=== PATIENT | male | born 1960 | race Caucasian/White ===

== ENCOUNTER 2017-12-14 18:32 | Emergency (ER) | payer MEDICARE, MEDICAID, SELFPAY ==
[2017-12-14 18:33] VITALS: BP 123/76; PULSE 103; RESP 18; TEMP 36.6; O2SAT 96; BMI 23.2
--- NOTE | 2017-12-14 18:50 | RAD_ITS ---
STUDY: X-RAY CHEST REASON FOR EXAM: Male, 57 years old. Short breath and nausea. TECHNIQUE: Frontal and lateral views of the chest. COMPARISON: 06/20/2017. FINDINGS: The lungs are hyperexpanded. There are coarsened interstitial markings suggestive of moderate chronic fibrosis. Findings are most pronounced in the upper lobes. This is stable. However, there is now linear band of density across the anterior right lung base most consistent with platelike atelectasis or interval scarring. No gross focal infiltrates. No gross effusions. Normal size heart. Normal mediastinum and winnie. Normal visualized pulmonary arteries. Normal visualized aortic arch and descending thoracic aorta. Normal visualized thoracic spine. Normal visualized ribs, clavicles, and shoulders. There is no demonstrated abnormality of the visualized soft tissue structures of the upper abdomen. RAD/Chest PA and Lateral IMPRESSION: Moderate widespread interstitial fibrosis with an upper lobe predominance, stable. New platelike atelectasis or scarring in the anterior right lung base. Electronically Signed: Richard Kent MD at 19:50 EDT , Service support ,
--- NOTE | 2017-12-14 18:50 | EKG12_ITS ---
Test Reason : SOB Blood Pressure : / mmHG Vent. Rate : 090 BPM Atrial Rate : 090 BPM P-R Int : 124 ms QRS Dur : 084 ms QT Int : 360 ms P-R-T Axes : 059 045 056 degrees QTc Int : 440 ms Normal sinus rhythm Normal ECG Confirmed by LUZ RICE, SB ([id number]), news assignment editor YOLA GUERRA ([id number]) on 12/17/2017 2:29:58 PM Referred By: RENATA Confirmed By:SB ESCOBAR MD
--- NOTE | 2017-12-14 18:55 | ED.VISSUMM ---
- ER Visit Summary Date of Service: 12/14/17 Chief Complaint: Cough History of Present Illness: The patient is a 57-year-old male presents with increasing productive cough since yesterday. Wheezing at home. No fever, chills, sweats. No chest pains. No dyspnea or exertional dyspnea. Tobacco history. History of COPD. History of [place]. States had a previous PE was on anticoagulation for 1 year. Denies any exertional dyspnea. No recent travel. Physical Examination: General: Alert and oriented ?3, no acute distress HEENT: Normocephalic, atraumatic. Moist mucosa membranes Neck: supple, nontender. Cardiovascular: Regular rate 96 and rhythm, no murmurs Respiratory: Normal breath sounds, symmetric, no distress Abdomen: Soft, nontender, nondistended Extremities: Nontender, no edema, pulses intact ?4 Neuro: no focal neurological deficits. Test Results: EKG: Sinus rate of 90, no ST or T-wave changes. Chest x-ray: Per radiology platelike atelectasis right lower lobe Emergency Department Course and Treatment: Patient nontoxic, no acute distress. COPD history along with cardiac history. EKG obtained which is normal. Chest x-ray initially revealed concerns for right lower lobe pneumonia, however per radiology concerns of platelike atelectasis. Nontoxic. Per gold criteria, He was given start on Doxy and prednisone. DuoNeb treatment given with improvement. Nela with patient continue antibiotics and steroids as prescribed. Follow with PCP. Return if any worsening symptoms. All questions were answered. Treatment Plan: [] Disposition: Discharge Impression: COPD exacerbation This note was generated with [employer] dictation software. It may contain incorrect words, spelling, and punctuation that were not noted in review of the chart prior to signing ED Disposition - Plan for ED Patient: Disposition: Home or Assisted Living Chief Complaint: Cough Diagnosis: COPD (chronic obstructive pulmonary disease) Instructions: ED COPD Flare Prescriptions: Prednisone [Deltasone] 60 mg PO DAILY #12 tablet Doxycycline Monohydrate 100 mg PO BID #20 capsule Referrals: Alexey Mayberry MD [Primary Care Provider] - 3-5 Days
[2017-12-14] MEDS: Ipratropium/Albuterol Sulfate 3 ML AMPUL.NEB INHALATION (18:57)
--- NOTE | 2017-12-14 18:58 | ED.DCSUM_ITS ---
- ER Visit Summary Date of Service: 12/14/17 Chief Complaint: Cough History of Present Illness: The patient is a 57-year-old male presents with increasing productive cough since yesterday. Wheezing at home. No fever, chills, sweats. No chest pains. No dyspnea or exertional dyspnea. Tobacco history. History of COPD. History of [place]. States had a previous PE was on anticoagulation for 1 year. Denies any exertional dyspnea. No recent travel. Physical Examination: General: Alert and oriented ?3, no acute distress HEENT: Normocephalic, atraumatic. Moist mucosa membranes Neck: supple, nontender. Cardiovascular: Regular rate 96 and rhythm, no murmurs Respiratory: Normal breath sounds, symmetric, no distress Abdomen: Soft, nontender, nondistended Extremities: Nontender, no edema, pulses intact ?4 Neuro: no focal neurological deficits. Test Results: EKG: Sinus rate of 90, no ST or T-wave changes. Chest x-ray: Per radiology platelike atelectasis right lower lobe Emergency Department Course and Treatment: Patient nontoxic, no acute distress. COPD history along with cardiac history. EKG obtained which is normal. Chest x-ray initially revealed concerns for right lower lobe pneumonia, however per radiology concerns of platelike atelectasis. Nontoxic. Per gold criteria, He was given start on Doxy and prednisone. DuoNeb treatment given with improvement. Nela with patient continue antibiotics and steroids as prescribed. Follow with PCP. Return if any worsening symptoms. All questions were answered. Treatment Plan: [] Disposition: Discharge Impression: COPD exacerbation This note was generated with [employer] ([employer]) dictation software. It may contain incorrect words, spelling, and punctuation that were not noted in review of the chart prior to signing ED Disposition - Plan for ED Patient: Disposition: Home or Assisted Living Chief Complaint: Cough Diagnosis: COPD (chronic obstructive pulmonary disease) Instructions: ED COPD Flare Prescriptions: Prednisone [Deltasone] 60 mg PO DAILY #12 tablet Doxycycline Monohydrate 100 mg PO BID #20 capsule Referrals: Alexey Mayberry MD [Primary Care Provider] - 3-5 Days
[2017-12-14 19:00] VITALS: PULSE 114; RESP 18
[2017-12-14] MEDS: Ondansetron ODT 4 MG Tablet PO (19:05)
[2017-12-14] MEDS: predniSONE 20 MG Tablet 60 MG PO (19:06)
[2017-12-14] MEDS: Doxycycline 100 MG CAPSULE PO (19:06)
[2017-12-14 20:20] VITALS: BP 125/75; PULSE 99; RESP 16; O2SAT 99
== END 2017-12-14 20:22 | disposition home or self-care (01) ==
PROVIDERS: Emergency Provider Emergency Medicine; Family Provider Internal Medicine; PCP Internal Medicine
DX: J44.1 Chronic obstructive pulmonary disease with (acute) exacerbation (principal); I25.10 Atherosclerotic heart disease of native coronary artery without angina pectoris; E78.00 Pure hypercholesterolemia, unspecified; K21.9 Gastro-esophageal reflux disease without esophagitis; I25.2 Old myocardial infarction; Z72.0 Tobacco use; Z86.711 Personal history of pulmonary embolism; Z95.5 Presence of coronary angioplasty implant and graft
CPT/HCPCS: 71046; 93005; 94640; 99282

== ENCOUNTER → 2017-12-24 09:14 | Outpatient (CLI) | payer MEDICARE, MEDICAID, SELFPAY ==
[2017-12-24 10:11] LABS: AST(SGOT) 13 U/L (15-37); Alanine Aminotransfer ALT/SGPT 16 U/L (16-61); Albumin, Serum 3.1 g/dL (3.2-5.0); Alkaline Phosphatase 94 U/L (45-117); Cholesterol 129 mg/dL (200); Globulin 3.4 g/dL (2.2-4.2); High Density Lipoprotein 37 mg/dL; Protein, Total 6.5 g/dL (6.4-8.2); Triglycerides 110 mg/dL; Very Low Density Lipoprotein 22 mg/dL (5-40)
== END ==
PROVIDERS: Family Provider Internal Medicine; PCP Internal Medicine; Visit Provider Physician Assistant Medical
DX: I25.10 Atherosclerotic heart disease of native coronary artery without angina pectoris (principal); E78.00 Pure hypercholesterolemia, unspecified
CPT/HCPCS: 36415; 80061; 80076

== ENCOUNTER → 2018-02-10 13:55 | Outpatient (CLI) | payer MEDICARE, MEDICAID, SELFPAY ==
--- NOTE | 2018-02-10 13:55 | DT_ITS ---
This patient was seen during an EMR downtime February 03, 2018 - February 10, 2018. This patient may have a combination of paper and electronic documentation or all paper documentation. All documentation is viewable within the e-chart portion of [facility] for each patient visit.
--- NOTE | 2018-02-10 13:58 | CT_ITS ---
STUDY: CT MAXILLOFACIAL SINUSES REASON FOR EXAM: Male, 57 years old. Chronic sinusitis, worse on the left. Repair of deviated nasal septum to years ago. RADIATION DOSAGE (If Supplied By Facility): CTDIvol = ( 33.06 ) mGy, DLP = ( 908.23 ) mGycm TECHNIQUE: The patient was scanned in a multi detector CT scanner. High resolution axial imaging was performed without the administration of intravenous contrast material. Sagittal and coronal images were reconstructed. Individualized dose optimization techniques were used for this CT. COMPARISON: CT of the sinuses, April 21, 2013. FINDINGS: FRONTAL SINUSES: There is complete opacification of the frontal sinuses. ETHMOIDAL SINUSES: There is near complete opacification of the ethmoid sinuses with minimal air seen in the most posterior right sided air cell. MAXILLARY SINUSES: There is marked mucoperiosteal reaction in both maxillary sinuses with air-fluid levels. There is partial surgical resection versus resorption of the medial pulido of both sinuses. SPHENOIDAL SINUSES: There is mucoperiosteal reaction of the sphenoid sinuses. There is occlusion of the bilateral maxillary infundibuli with normal uncinate processes, ethmoid bullae, and hiatus semilunaris. Normal bilateral middle turbinates. Normal bilateral inferior turbinates. Normal midline nasal septum. There is patency of the bilateral nasal airways. The visualized osseous structures are normal. The visualized bilateral orbital contents are normal. CT/Sinus/Facial Bone IMPRESSION: Severe pansinusitis, mildly improved when compared to the prior study. Electronically Signed: Roosevelt Doyle DO at 16:07 EDT Tel [phone], Service support ,
== END ==
PROVIDERS: Family Provider Internal Medicine; PCP Internal Medicine; Visit Provider Otolaryngology
DX: J33.9 Nasal polyp, unspecified (principal); J32.9 Chronic sinusitis, unspecified
CPT/HCPCS: 70486

== ENCOUNTER 2018-03-28 23:33 | Inpatient (IN) | payer MEDICARE, MEDICAID, SELFPAY ==
--- NOTE | 2018-03-28 00:15 | RAD_ITS ---
STUDY: X-RAY CHEST REASON FOR EXAM: Male, 57 years old. Shortness of breath. Respiratory arrest. Endotracheal tube and orogastric tube placement. TECHNIQUE: Single AP portable view of the chest. COMPARISON: Chest x-ray 12/14/2017. CTA chest 03/30/2018. FINDINGS: Endotracheal tube is 5.1 cm above the luli. A loop of the nasogastric or orogastric tube enters the stomach were it appears to be kinked. However, the tip of the tube is in the mid thoracic esophagus. There is no demonstrated pneumothorax. There is hyperinflation of the lungs consistent with chronic obstructive lung disease (COPD). There are chronic interstitial changes in the lungs. There is no demonstrated focal pulmonary trachea. There is no demonstrated pleural abnormality. Normal size heart. Normal mediastinum and winnie. Normal visualized pulmonary arteries. Normal visualized aortic arch and descending thoracic aorta. There are no visualized acute osseous abnormalities. . There is no demonstrated abnormality of the visualized soft tissue structures of the upper abdomen. RAD/Chest 1 View (Portable) IMPRESSION: Endotracheal tube is in adequate position. Nasogastric tube is malpositioned, looping within the stomach, with its tip in the thoracic esophagus. Tube should be removed and replaced. Chronic interstitial changes with evidence for COPD. No evidence for acute cardiopulmonary pathology. Electronically Signed: yTler Keene MD at 1:42 EDT , Service support ,
[2018-03-28 23:34] VITALS: BP 182/98; PULSE 134; RESP 28; TEMP 37.2; O2SAT 98; BMI 22.8
[2018-03-28] MEDS: Etomidate 20 MG/10 ML Vial IV (23:45)
[2018-03-28] MEDS: Succinylcholine Chloride 200 MG/10 ML Vial 100 MG IV (23:45)
--- NOTE | 2018-03-28 23:50 | EKG12_ITS ---
Test Reason : RESP FAILURE Blood Pressure : / mmHG Vent. Rate : 124 BPM Atrial Rate : 124 BPM P-R Int : 114 ms QRS Dur : 074 ms QT Int : 314 ms P-R-T Axes : 072 029 047 degrees QTc Int : 451 ms Sinus tachycardia Low voltage QRS (LIMB LEADS) Confirmed by JOSE DAVID RICE, CYNDY ([id number]), manuscript editor YOLA GUERRA ([id number]) on 04/01/2018 2:26:24 PM Referred By: AXEL Confirmed By:CYNDY MAIN MD
--- NOTE | 2018-03-28 23:50 | CT_ITS ---
STUDY: CTA CHEST REASON FOR EXAM: Male, 57 years old. Respiratory arrest RADIATION DOSAGE (If Supplied By Facility): CTDIvol = ( 20.39 ) mGy, DLP = ( 550.45 ) mGycm TECHNIQUE: The examination was performed with the intravenous administration of 100 ml of Isovue 370 contrast material. Post-processing of the angiographic images was performed, with multiplanar reformation and 3D reconstruction. Individualized dose optimization techniques were used for this CT. COMPARISON: None. FINDINGS: Examination is markedly limited by motion artifact. Visualization of the pulmonary vasculature is limited due to timing of the contrast bolus. There is no definitive central pulmonary embolism. Lobar, segmental, and subsegmental branches are limited due to motion and due to admixture of contrast. Thoracic aorta demonstrates no aneurysmal dilatation or dissection. Normal heart and pericardium. Normal mediastinum. Normal hilar regions. Normal visualized trachea and bronchi. The lungs are well expanded. Patchy airspace infiltration within the lingula and within the right middle lobe. No pleural effusion or pneumothorax. Normal chest wall structures. Evaluation of the skeletal structures is markedly limited due to motion. Normal visualized upper abdomen. CT/CTA Chest W/WO Contrast IMPRESSION: 1. Markedly limited exam due to motion artifact and timing of the contrast bolus with no definitive evidence of acute pulmonary embolism. 2. Mild patchy airspace infiltration within the lingula and within the right middle lobe which may represent atelectasis versus infiltrate versus possible aspiration. Electronically Signed: Jossue Conti MD at 1:52 EDT Tel , Service support ,
[2018-03-28 23:52] VITALS: RESP 14
[2018-03-29] VITALS (66 sets, daily range): BP systolic 83–145; BP diastolic 56–96; PULSE 75–124; RESP 6–26; TEMP 35.7–37; O2SAT 88–100; BMI 23.6
[2018-03-29] MEDS: 0.9% Normal Saline 1,000 ML 150 ML IV ×3 (00:01→10:15)
[2018-03-29] MEDS: Propofol 10MG/Ml 1,000 MG/100 ML Bottle 2.169 MG CONT INF (00:01)
[2018-03-29] MEDS: MethylPREDNISolone 125 MG/2 ML Vial IV (00:03)
[2018-03-29 00:11] LABS: Absolute Lymphocyte Count 1.94 X10^3/ul (0.83-4.51); Absolute Neutrophil Count 26.6 X10^3/uL (2.0-7.7); Basophil# 0.02 X10^3/uL; Basophil% 0.1 % (0-1); Eosinophil# 0.01 X10^3/uL; Hematocrit 41.4 % (40-54); Hemoglobin 13.2 g/dl (13.0-16.5); Lymphocyte # 1.94 X10^3/ul (4.0); Mean Corp Hgb Conc 31.9 g/gl (32-36); Mean Corpuscular Hgb 30.2 pg (27.0-32.0); Mean Corpuscular Volume 94.7 fL (80-94); Mean Platelet Vol. 9.7 fl (6.2-12.0); Monocyte# 3.58 X10^3/uL; Monocyte% 11.1 % (0-10); Neutrophil # 26.56 X10^3/uL (2.7-7.7); Neutrophil % 82.5 % (47-70); Platelet Count 369 K/mm3 (150-450); RBC Distribution Width CV 13.7 % (11.6-14.6); RBC Distribution Width SD 47.6 fl (35.1-43.9); Red Blood Count 4.37 M/mm3 (4.6-6.2)
[2018-03-29 00:13] LABS: Squamous Epithelial Cells - UA 0 SEEN /hpf (0-5); White Blood Cells 0 SEEN /hpf (0-5)
--- NOTE | 2018-03-29 00:13 | ED.VISSUMM ---
- ER Visit Summary Date of Service: 03/29/18 Chief Complaint: Respiratory arrest History of Present Illness: The patient is a 57 M who has a history of COPD as well as coronary artery disease and questionable history of the patient family tells me that he was just released today from [facility] where he was admitted for asthma. EMS was called to his house [place] for shortness of breath. They state that his pulse ox was 55% and he went into respiratory arrest and unresponsive in route to the hospital. They began bagged respirations and the patient was able to open his eyes and say a few words them. Patient is reportedly on Plavix. He has a coronary artery stent. He reportedly sees a prosthetic dentist at the [facility]. He is a heavy smoker. Physical Examination: 182/98 temperature 99 heart rate of 134 respirations are 36 pulse ox is 98% with bagged respirations Gen: Well-nourished well-developed Head: Normocephalic atraumatic Eyes: Perrl EOMI ENT: TMs clear no rhinorrhea moist mucous membranes Neck: Supple no lymphadenopathy no JVD nontender CVS: Regular rate and tachycardic rhythm no murmurs normal S1-S2 Respiratory: Respiratory distress with abdominal breathing and accessory muscle use. He has bilateral inspiratory expiratory wheezing. Chest nontender Abdomen: Soft nontender nondistended normal bowel sounds no masses Back: Nontender Extremity: Nontender no edema Skin: Normal color no rash Neuro: Patient moves all extremities. He does seem alert but does not follow commands easily. He can speak in a couple word sentences. Psych: Normal affect normal mood Test Results: EKG shows a sinus tachycardia. Chest x-ray shows adequate placement of endotracheal tube. The NG tube however appears to coil and go back up into the esophagus. Initial pH is 7.202 with a PCO2 of 62.3 PaO2 of 465. Bicarbonate 24.4. Emergency Department Course and Treatment: Patient underwent RSI with etomidate and succinylcholine. A 8-0 endotracheal tube was passed on the first attempt without any difficulty using a 3 Andrade blade. This was secured at 24 cm. There was good color change and equal breath sounds bilaterally. Chest x-ray confirms adequate placement. Patient received IV fluids and was placed on a propofol drip. Solu-Medrol and breathing treatments were given. Patient will be taken for CTA of his chest. This time the care of the patient will be turned over to the night physician for check of labs and for final admission into the hospital. Impression: 1. COPD exacerbation 2. Respiratory failure 3. Intubation by physician 4. Critical care time 35 minutes This note was generated with [employer] software. It may contain incorrect words, spelling, and punctuation that were not noted in review of the chart prior to signing <Kamran Mcmullen - Last Filed: 03/29/18 00:20> - ER Visit Summary Date of Service: 03/29/18 Chief Complaint: [] History of Present Illness: The patient is a 57 M [] Physical Examination: [] Test Results: WBC 32, creatinine 1.18. INR 1.1. Lactic acid 9. Troponin negative. UA negative. Chest x-ray no infiltrates. CTAchest: No PE, infiltrates left lingula and right middle lobe. Emergency Department Course and Treatment: Patient signed out to me follow-up on results. No PE. Patient white count 32, lactic acid is 9. Sepsis protocol with fluids were given. Zosyn was ordered. CAT scan results showed no PE, however no infiltrates. Is likely his cause. He meets septic shock criteria. Vancomycin was added. During this time I spoke with daughter updated, he had a PE in 2004 with 1 year of Coumadin therapy. He had 3 stents in 2006 on Plavix. He was just discharged from [facility] earlier today after 1 day stay for what sounds like COPD exacerbation. Prescription antibiotic was given it was not filled to be taken yet. Daughter states he did not feel well leaving the hospital, symptoms worsen as he went to her house. He wanted to come back home for breathing treatment for which worsened by the time he got home and EMS was called. During the time, patient's sedation decrease effective with blood pressure. His map however was at 79. Fentanyl IV was added, propofol was decreased. Eventually propofol stopped, Versed drip started. I did speak with restaurant hospitality manager Dr. Devries updated on patient's presentation findings and ICU admission. Hospitalist discussed with his in the ED for evaluation. Treatment Plan: [] Disposition: Admission Impression: 1. Septic shock 2. Healthcare associated pneumonia 3. Hypoxemia 4. Acute respiratory failure This note was generated with [employer] software. It may contain incorrect words, spelling, and punctuation that were not noted in review of the chart prior to signing <Mele Campos - Last Filed: 03/29/18 02:44> ED Disposition <WoolrichKamran maynard - Last Filed: 03/29/18 00:20> <Mele Campos - Last Filed: 03/29/18 02:44> - Plan for ED Patient: Disposition: [facility] Chief Complaint: Shortness of Breath Diagnosis: Septic shock, HCAP (healthcare-associated pneumonia), Acute respiratory failure, Hypoxemia Referrals: Alexey Mayberry MD [Primary Care Provider] -
[2018-03-29 00:15] LABS: Color, Urine Yellow (Yellow); Glucose, Dipstick 100 mg/dl (Normal); Ketone-Dipstick Negative (Negative); Leukocyte Esterase-Dipstick Negative /ul (Negative); Nitrite-Dipstick Negative (Negative); Occult Blood-Urine 25 /ul (Negative); Protein-Dipstick 30 mg/dl (Negative); Urine Bilirubin Dipstick Negative (Negative); Urine Clarity Sl. Cloudy (Clear); Urine Urobilinogen Normal (Normal)
[2018-03-29] MEDS: Ipratropium/Albuterol Sulfate 3 ML AMPUL.NEB INHALATION ×6 (00:16→23:23)
[2018-03-29] MEDS: Albuterol 2.5 MG/3 ML VIAL.NEB. INHALATION ×10 (00:16→21:05)
--- NOTE | 2018-03-29 00:16 | ED.DCSUM_ITS ---
- ER Visit Summary Date of Service: 03/29/18 Chief Complaint: Respiratory arrest History of Present Illness: The patient is a 57 M who has a history of COPD as well as coronary artery disease and questionable history of the patient family tells me that he was just released today from [place] where he was admitted for asthma. EMS was called to his house [place] for shortness of breath. They state that his pulse ox was 55% and he went into respiratory arrest and unresponsive in route to the hospital. They began bagged respirations and the patient was able to open his eyes and say a few words them. Patient is reportedly on Plavix. He has a coronary artery stent. He reportedly sees a technician assistant at the [facility]. He is a heavy smoker. Physical Examination: 182/98 temperature 99 heart rate of 134 respirations are 36 pulse ox is 98% with bagged respirations Gen: Well-nourished well-developed Head: Normocephalic atraumatic Eyes: Perrl EOMI ENT: TMs clear no rhinorrhea moist mucous membranes Neck: Supple no lymphadenopathy no JVD nontender CVS: Regular rate and tachycardic rhythm no murmurs normal S1-S2 Respiratory: Respiratory distress with abdominal breathing and accessory muscle use. He has bilateral inspiratory expiratory wheezing. Chest nontender Abdomen: Soft nontender nondistended normal bowel sounds no masses Back: Nontender Extremity: Nontender no edema Skin: Normal color no rash Neuro: Patient moves all extremities. He does seem alert but does not follow commands easily. He can speak in a couple word sentences. Psych: Normal affect normal mood Test Results: EKG shows a sinus tachycardia. Chest x-ray shows adequate placement of endotracheal tube. The NG tube however appears to coil and go back up into the esophagus. Initial pH is 7.202 with a PCO2 of 62.3 PaO2 of 465. Bicarbonate 24.4. Emergency Department Course and Treatment: Patient underwent RSI with etomidate and succinylcholine. A 8-0 endotracheal tube was passed on the first attempt without any difficulty using a 3 Andrade blade. This was secured at 24 cm. There was good color change and equal breath sounds bilaterally. Chest x-ray confirms adequate placement. Patient received IV fluids and was placed on a propofol drip. Solu-Medrol and breathing treatments were given. Patient will be taken for CTA of his chest. This time the care of the patient will be turned over to the night physician for check of labs and for final admission into the hospital. Impression: 1. COPD exacerbation 2. Respiratory failure 3. Intubation by physician 4. Critical care time 35 minutes This note was generated with [employer] software. It may contain incorrect words, spelling, and punctuation that were not noted in review of the chart prior to signing <Kamran Mcmullen - Last Filed: 03/29/18 00:20> - ER Visit Summary Date of Service: 03/29/18 Chief Complaint: [] History of Present Illness: The patient is a 57 M [] Physical Examination: [] Test Results: WBC 32, creatinine 1.18. INR 1.1. Lactic acid 9. Troponin negative. UA negative. Chest x-ray no infiltrates. CTAchest: No PE, infiltrates left lingula and right middle lobe. Emergency Department Course and Treatment: Patient signed out to me follow-up on results. No PE. Patient white count 32, lactic acid is 9. Sepsis protocol with fluids were given. Zosyn was ordered. CAT scan results showed no PE, however no infiltrates. Is likely his cause. He meets septic shock criteria. Vancomycin was added. During this time I spoke with daughter updated, he had a PE in 2004 with 1 year of Coumadin therapy. He had 3 stents in 2006 on Plavix. He was just discharged from [facility] earlier today after 1 day stay for what sounds like COPD exacerbation. Prescription antibiotic was given it was not filled to be taken yet. Daughter states he did not feel well leaving the hospital, symptoms worsen as he went to her house. He wanted to come back home for breathing treatment for which worsened by the time he got home and EMS was called. During the time, patient's sedation decrease effective with blood pressure. His map however was at 79. Fentanyl IV was added, propofol was decreased. Eventually propofol stopped, Versed drip started. I did speak with assistant cross country coach Dr. Devries updated on patient's presentation findings and ICU admission. Hospitalist discussed with his in the ED for evaluation. Treatment Plan: [] Disposition: Admission Impression: 1. Septic shock 2. Healthcare associated pneumonia 3. Hypoxemia 4. Acute respiratory failure This note was generated with [employer] software. It may contain incorrect words, spelling, and punctuation that were not noted in review of the chart prior to signing <Mele Campos - Last Filed: 03/29/18 02:44> ED Disposition <BunkervilleKamran maynard - Last Filed: 03/29/18 00:20> <Mele Campos - Last Filed: 03/29/18 02:44> - Plan for ED Patient: Disposition: [facility] Chief Complaint: Shortness of Breath Diagnosis: Septic shock, HCAP (healthcare-associated pneumonia), Acute respiratory failure , Hypoxemia Referrals: Alexey Mayberry MD [Primary Care Provider] -
[2018-03-29 00:18] LABS: ALB/GLOB Ratio 0.9 RATIO (0.9-2.4); AST(SGOT) 17 U/L (15-37); Alanine Aminotransfer ALT/SGPT 17 U/L (16-61); Albumin, Serum 3.5 g/dL (3.2-5.0); Alkaline Phosphatase 91 U/L (45-117); Anion Gap 11 (5-15); BUN 13 mg/dL (7-18); Calcium,Total 9.1 mg/dL (8.5-10.1); Chloride 101 mmol/L (98-107); Creatinine, Serum 1.18 mg/dL (0.70-1.30); EST Glomerular Filtration Rate 68 mL/min (>60); Est Glom Filt Rate - Afr Amer 82 mL/min (>60); Estimated Creatinine Clearance 71.48 ml/min; Globulin 3.8 g/dL (2.2-4.2); Glucose 239 mg/dL (74-106); Potassium 4.4 mmol/L (3.5-5.1); Protein, Total 7.3 g/dL (6.4-8.2); Sodium Level 136 mmol/L (136-145)
[2018-03-29 00:26] LABS: Base Excess -4 mmol/L (-2 to +2); Bicarbonate 23.8 mmol/L (22-26); Blood Gas Specimen Type ART; FI02 100; Mode A-C; O2 Delivery Device Vent; PEEP 5; PO2 458 mmHG (75-100); RR 14; SITE L Brachial; SO2 100 % (95-99); Time Given 1213; Total Carbon Dioxide 26 mmol/L; Vt 500; pCO2 60.7 mmHg (35-45)
[2018-03-29 00:30] LABS: Amorphous Sediment 1+; Bacteria RARE /hpf (None Seen); Mucous, Urine 1+ /hpf (<or=2+)
[2018-03-29 00:31] LABS: Red Blood Cells-Urine 0-5 SEEN /hpf (0-5)
[2018-03-29 00:35] LABS: Differential Indicated SCAN CRITERIA MET; POSITIVE COUNT YES; POSITIVE DIFFERENTIAL YES; POSITIVE MORPHOLOGY NO; White Blood Count 32.2 K/mm3 (4.4-11.0)
[2018-03-29 00:36] LABS: Differential Comment SCANNED
[2018-03-29 00:38] LABS: International Normalized Ratio 1.1; Prothrombin Time (Protime)PT. 14.1 SECONDS (11.7-14.9)
[2018-03-29 00:39] LABS: Partial Thromboplast Time 28.1 Seconds (24.1-36.2)
[2018-03-29] MEDS: Midazolam 5 MG/ML Syringe IV ×4 (01:00→03:07)
--- NOTE | 2018-03-29 01:16 | ED.RN ---
ALL OF PTS BELONGINGS CARGO SHORTS, BELT, SHOES, BLACK WALLET, MEDICAL ALERT NECKLACE AND CONTENTS OF POCKETS OF CARGO SHORTS (NOT OBSERVED BY THIS RN) WERE GIVEN TO DAUGHTER DAWSON AT PT'S BEDSIDE.
--- NOTE | 2018-03-29 01:49 | ED.RN ---
LAB CALLED WITH CRITICAL LAB, LACTIC 9.0, DR REYNA NOTIFIED
--- NOTE | 2018-03-29 03:40 | RAD_ITS ---
STUDY: X-RAY CHEST REASON FOR EXAM: Male, 57 years old. Status post central line placement TECHNIQUE: Single AP portable view of the chest. COMPARISON: 02/27/2018 FINDINGS: Endotracheal tube tip projects 4 cm above the luli. Nasogastric tube tip projects over the proximal esophagus. There has been interval placement of a right internal jugular central venous line with the tip projecting over the mid superior vena cava. There is mild prominence of the interstitial lung markings within bilateral perihilar regions. Platelike atelectasis versus scar at the left lateral lung base. No pleural effusion or pneumothorax. Normal size heart. Normal mediastinum and winnie. Normal visualized pulmonary arteries. There is atherosclerotic calcification of the aortic arch with tortuosity. There are diffuse degenerative changes of the visualized thoracic spine. Normal visualized ribs, clavicles, and shoulders. There is no demonstrated abnormality of the visualized soft tissue structures of the upper abdomen. RAD/Chest 1 View (Portable) IMPRESSION: 1. Nasogastric tube tip withdrawn into the proximal esophagus. 2. Appropriate positioning of newly placed right internal jugular central venous line. 3. Mild chronic bilateral perihilar interstitial change. Electronically Signed: Jossue Conti MD at 4:14 EDT Tel , Service support ,
[2018-03-29 03:56] LABS: Reflex Lactate? Y
--- NOTE | 2018-03-29 04:15 | PCM.HP.STD ---
Problem List (1) Acute on chronic respiratory failure with hypoxemia Status: Acute (2) Septic shock Status: Acute (3) HCAP (healthcare-associated pneumonia) Status: Acute (4) Acute respiratory failure Status: Acute History of Present Illness Date of Admission: 03/29/18 Chief Complaint: Shortness of breath ?3 days The patient is a 57 year old M with significant history of tobacco abuse and COPD who was brought to the hospital by the squad because of severe shortness of breath that started 3 days ago. Patient was intubated at the time of my examination and could not provide history. Her daughter reports that 3 days ago because patient was severely short of breath and she was not responding to his home inhalers. Patient went to [facility] in [place] where he was admitted with asthma attack at the ICU. Her daughter reported that at [facility], patients white count was severely elevated. Daughter reports that patient was discharged from [facility] the next day but he continued to have shortness of breath to the point that he could not breathe. The paramedics found him severely hypoxic. Associated with his symptoms is coughing with posttussive emesis. At emergency department he was severely hypoxic,hypercapnic and unresponsive. Subsequently his trachea was emergently intubated. He was found to have elevated white count of 32.2; and his lactic acid was severely elevated at 9.0. Past Medical History Past Medical History (Chronic Problems): Chronic Problems (Last Reviewed 03/29/18 @ 04:50 by Godfrey Monte MD) Hypotension, unspecified (Chronic) Atherosclerotic heart disease of [place] coronary artery without angina pectoris (Chronic) PTCA and stenting RCA 06/27/2008 at [place]; Ischemic cardiomyopathy (Chronic) HLD (hyperlipidemia) (Chronic) Dyspnea (Chronic) Myocardial infarction, inferior wall (Chronic) CAD (coronary artery disease) (Chronic) PTCA and stenting RCA 06/27/2008 at [place]; H/O percutaneous transluminal coronary angioplasty (Chronic) PTCA and stenting RCA 06/27/2008 at [place]; COPD (chronic obstructive pulmonary disease) (Chronic) 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) Atherosclerosis (Chronic) COPD (chronic obstructive pulmonary disease) with emphysema (Chronic) Chest pain (Chronic) Coronary arteriosclerosis (Chronic) COPD exacerbation (Chronic) CAD (coronary artery disease) (Chronic) Nicotine abuse (Chronic) History of pulmonary embolism (Chronic) Medical History: Medical History (Last Reviewed 03/29/18 @ 04:50 by Godfrey Monte MD) Atherosclerotic heart disease of [place] coronary artery without angina pectoris (Chronic) I25.10 PTCA and stenting RCA 06/27/2008 at [place]; Ischemic cardiomyopathy (Chronic) I25.5 HLD (hyperlipidemia) (Chronic) E78.5 Dyspnea (Chronic) R06.00 Myocardial infarction, inferior wall (Chronic) I21.19 CAD (coronary artery disease) (Chronic) I25.10 PTCA and stenting RCA 06/27/2008 at [place]; COPD (chronic obstructive pulmonary disease) (Chronic) J44.9 Allergies latex Allergy (Verified 03/28/18 23:40) Rash varenicline tartrate [From Chantix] Allergy (Verified 03/28/18 23:40) Hives aspirin Adverse Reaction (Verified 03/28/18 23:40) Upset Stomach Home Medications: Ambulatory Orders Medication Instructions Recorded Albuterol Inhaler [Ventolin Hfa] 2 puff INHALATION Q2H PRN 06/16/13 Budesonide/Formoterol 160/4.5 2 puff INHALATION BID PRN 06/16/13 [Symbicort 160/4.5 Mcg Inhaler (SP)] Clopidogrel Bisulfate [Plavix] 75 mg PO QHS 06/16/13 Levocetirizine Dihydrochloride 5 mg PO DAILY 07/12/15 [Xyzal] Cholecalciferol (VIT D3) [Vitamin 2,000 units PO QHS 03/25/16 D3] Montelukast Sodium [Singulair] 10 mg PO QHS 03/25/16 Omeprazole [Prilosec] 40 mg PO DAILY 05/13/17 Ipratropium/Albuterol Sulfate 3 ml INHALATION Q4H.RT 05/15/17 [Duoneb] Aspirin [Aspirin, Baby] 81 mg PO DAILY@0800 06/20/17 cyanocobalamin (vit B-12) 1,000 1,000 mcg PO QDAY 10/15/17 mcg tablet Atorvastatin Calcium [Lipitor] 20 mg PO DAILY 12/14/17 Cetirizine HCl [Zyrtec] 10 mg PO QHS 12/14/17 Doxycycline Monohydrate 100 mg PO BID #20 capsule 12/14/17 Prednisone [Deltasone] 60 mg PO DAILY #12 tablet 12/14/17 Surgical History: Surgical History (Last Reviewed 03/29/18 @ 07:36 by Godfrey Monte MD) H/O percutaneous transluminal coronary angioplasty (Chronic) Z98.61 PTCA and stenting RCA 06/27/2008 at [place]; Surgical History: angioplasty, - Psychiatric History: No pertinent psych hx Smoking Status: Current every day smoker - *Family History Maternal Family History: Family History (Last Reviewed 10/21/17 @ 14:16 by Alvaro Barger) Father CAD (coronary artery disease) Heart disease Myocardial infarction Mother Diabetes Brother Hypertension History Items: Diabetes Paternal Family History: Family History (Last Reviewed 10/21/17 @ 14:16 by Alvaro Barger) Father CAD (coronary artery disease) Heart disease Myocardial infarction Mother Diabetes Brother Hypertension History Items: Heart Disease Review of Systems Unable to obtain accurate/complete ROS d/t: Patient unresponsive. Other review of systems as noted in HPI. VTE Information - Inpt Only VTE Present on Admission: No VTE Mechan Device Prophylaxis: SCD's VTE Pharm Prophylaxis ordered?: Yes Patient Problems: Active and Suspected Problems (Last Reviewed 03/29/18 @ 04:50 by Godfrey Monte MD) Septic shock (Acute) HCAP (healthcare-associated pneumonia) (Acute) Acute respiratory failure (Acute) Hypoxemia (Acute) Acute on chronic respiratory failure with hypoxemia (Acute) - Physical Exam General: - - Patient on the ventilation and trying to get up. HEENT: Atraumatic, PERRLA, EOMI, Normocephalic Neck: Trachea Midline Lungs: - - Rhonchi likely due to a ventilator machine. Cardiovascular: Tachycardic Abdomen: Bowel Sounds Present, Soft, Non Tender Extremities: No cyanosis, No edema, - Skin: - - Wound to multiple toes on the right foot and plantar side proximal to toes. Musculoskeletal: No Muscle Wasting Lymphatic: No Cervical, Supraclavicular, or Inguinal Adenopathy Neurological: - - Intubated and sedated on mechanical ventilation. Psych/Mental Status: - - Intubated and sedated on mechanical ventilation. Vital Signs Temp Pulse Resp BP Pulse Ox 98.6 F 97 18 94/70 97 03/29/18 01:00 03/29/18 03:00 03/29/18 03:00 03/29/18 03:00 03/29/18 03:00 Oxygen Delivery Method Mechanical Ventilator Weight: 72.3 kg Body Mass Index (BMI) 22.8 Laboratory Tests Past 24 Hrs 03/28/18 03/28/18 03/28/18 23:40 23:40 23:40 WBC 32.2 H* RBC 4.37 L Hgb 13.2 Hct 41.4 MCV 94.7 H MCH 30.2 MCHC 31.9 L RDW 13.7 RDW Differential 47.6 H Plt Count 369 MPV 9.7 Immature Gran % (Auto) 0.300 Neut % (Auto) 82.5 H Lymph % (Auto) 6.0 L [place]yer % (Auto) 11.1 H Eos % (Auto) 0.0 Baso % (Auto) 0.1 Absolute Neuts (auto) 26.6 H Absolute Lymphs (auto) 1.94 Total Counted Not Reportable Differential Comment SCANNED Diff Path Review May foll PT INR APTT Specimen Type Sample Site pH Bicarbonate Actual POC Total CO2 Base Excess O2 Saturation O2 % ABG pCO2 ABG pO2 Respiration Rate O2 Delivery Device Vent Mode Tidal Volume POC PEEP Blood Gas Notified Whom Blood Gas Notified Time Sodium 136 Potassium 4.4 Chloride 101 Carbon Dioxide 24.0 Anion Gap 11 BUN 13 Creatinine 1.18 Estim Creat Clear Calc 71.48 Est GFR (MDRD) Af Amer 82 Est GFR (MDRD) Non-Af 68 BUN/Creatinine Ratio 11.0 Glucose 239 H Lactic Acid 9.0 H* Calcium 9.1 Total Bilirubin 0.30 AST 17 ALT 17 Alkaline Phosphatase 91 Troponin I < 0.015 Total Protein 7.3 Albumin 3.5 Globulin 3.8 Albumin/Globulin Ratio 0.9 Urine Color Urine Clarity Urine pH Ur Specific [place] Urine Protein Urine Glucose (UA) Urine Ketones Urine Occult Blood Urine Nitrite Urine Bilirubin Urine Urobilinogen Ur Leukocyte Esterase Urine RBC Urine WBC Ur Squamous Epith Cells Amorphous Sediment Urine Bacteria Urine Mucus 03/29/18 03/29/18 03/29/18 00:05 00:10 00:15 WBC RBC Hgb Hct MCV MCH MCHC RDW RDW Differential Plt Count MPV Immature Gran % (Auto) Neut % (Auto) Lymph % (Auto) Sawyer % (Auto) Eos % (Auto) Baso % (Auto) Absolute Neuts (auto) Absolute Lymphs (auto) Total Counted Differential Comment Diff Path Review PT Cancelled INR Cancelled APTT Cancelled Specimen Type ART Sample Site L Brachial pH 7.20 L Bicarbonate Actual 23.8 POC Total CO2 26 Base Excess -4 L O2 Saturation 100 H O2 % 100 ABG pCO2 60.7 H ABG pO2 458 H* Respiration Rate 14 O2 Delivery Device Vent Vent Mode A-C Tidal Volume 500 POC PEEP 5 Blood Gas Notified Whom ED Blood Gas Notified Time 1213 Sodium Potassium Chloride Carbon Dioxide Anion Gap BUN Creatinine Estim Creat Clear Calc Est GFR (MDRD) Af Amer Est GFR (MDRD) Non-Af BUN/Creatinine Ratio Glucose Lactic Acid Calcium Total Bilirubin AST ALT Alkaline Phosphatase Troponin I Total Protein Albumin Globulin Albumin/Globulin Ratio Urine Color Yellow Urine Clarity Sl. Cloudy Urine pH 6.0 Ur Specific [place] 1.020 Urine Protein 30 H Urine Glucose (UA) 100 H Urine Ketones Negative Urine Occult Blood 25 H Urine Nitrite Negative Urine Bilirubin Negative Urine Urobilinogen Normal Ur Leukocyte Esterase Negative Urine RBC 0-5 SEEN Urine WBC 0 SEEN Ur Squamous Epith Cells 0 SEEN Amorphous Sediment 1+ Urine Bacteria RARE Urine Mucus 1+ 03/29/18 00:22 WBC RBC Hgb Hct MCV MCH MCHC RDW RDW Differential Plt Count MPV Immature Gran % (Auto) Neut % (Auto) Lymph % (Auto) Sawyer % (Auto) Eos % (Auto) Baso % (Auto) Absolute Neuts (auto) Absolute Lymphs (auto) Total Counted Differential Comment Diff Path Review PT 14.1 INR 1.1 APTT 28.1 Specimen Type Sample Site pH Bicarbonate Actual POC Total CO2 Base Excess O2 Saturation O2 % ABG pCO2 ABG pO2 Respiration Rate O2 Delivery Device Vent Mode Tidal Volume POC PEEP Blood Gas Notified Whom Blood Gas Notified Time Sodium Potassium Chloride Carbon Dioxide Anion Gap BUN Creatinine Estim Creat Clear Calc Est GFR (MDRD) Af Amer Est GFR (MDRD) Non-Af BUN/Creatinine Ratio Glucose Lactic Acid Calcium Total Bilirubin AST ALT Alkaline Phosphatase Troponin I Total Protein Albumin Globulin Albumin/Globulin Ratio Urine Color Urine Clarity Urine pH Ur Specific [place] Urine Protein Urine Glucose (UA) Urine Ketones Urine Occult Blood Urine Nitrite Urine Bilirubin Urine Urobilinogen Ur Leukocyte Esterase Urine RBC Urine WBC Ur Squamous Epith Cells Amorphous Sediment Urine Bacteria Urine Mucus Assessment/Plan All Active Problems (Last Reviewed 03/29/18 @ 04:50 by Godfrey Monte MD) Septic shock (Acute) HCAP (healthcare-associated pneumonia) (Acute) Acute respiratory failure (Acute) Hypoxemia (Acute) Acute on chronic respiratory failure with hypoxemia (Acute) 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 Because he was recently discharged from the hospital his pneumonia will be considered as hospital-acquired pneumonia. Septic shock due to healthcare associated pneumonia with probable component of COPD exacerbation CT chest with airspace infiltrate within the lingula and within the right middle lobe WBC 32.2 Lactic acid of 9.0. Repeat lactic acid per protocol. Intubated and ventilated for hypoxia, hypercapnia and for airway protection. Propofol for sedation. Vancomycin and Zosyn was started at emergency department for healthcare associated pneumonia Vancomycin and Zosyn continued Fluid bolus per septic protocol at emergency department. Continue maintenance normal saline IV infusion DuoNeb scheduled Albuterol as needed Receives Solu-Medrol at emergency department. Solu-Medrol continued because of severely a pneumonia and likely COPD exacerbation MRSA screen We will check fingerstick blood glucose and cover with correction scale insulin appropriately. Triple-lumen IJ catheter placed for possible vasopressors and multiple IV infusions. DVT prophylaxis Subcutaneous Lovenox Code Visit Inpatient E&M: [address]18 [place] [id number]
--- NOTE | 2018-03-29 04:58 | PCM.RX.CS ---
Consult Pharmacy has been consulted to manage selected antiobiotic: Vancomycin Type of Consult: New start Suspected Infection: Pneumonia Prior Doses of Antibiotics Received/Current Regimen: Medications Vancomycin HCl (Vancomycin) 1,000 mg in 200 mls @ 200 mls/hr IV Q12H LAYLA Discontinued Medications Vancomycin HCl 1,250 mg/ (Sodium Chloride) 275 mls @ 183.3 mls/hr IV X1 ONE Stop: 03/29/18 03:27 Last Admin: 03/29/18 02:19 Dose: 183.3 mls/hr Labs: Sodium 136 mmol/L (136-145) 03/28/18 23:40 Potassium 4.4 mmol/L (3.5-5.1) 03/28/18 23:40 Chloride 101 mmol/L (98-107) 03/28/18 23:40 Carbon Dioxide 24.0 mmol/L (21.0-32.0) 03/28/18 23:40 Anion Gap 11 (5-15) 03/28/18 23:40 BUN 13 mg/dL (7-18) 03/28/18 23:40 Creatinine 1.18 mg/dL (0.70-1.30) 03/28/18 23:40 Est GFR (MDRD) Af Amer 82 mL/min (>60) 03/28/18 23:40 Est GFR (MDRD) Non-Af 68 mL/min (>60) 03/28/18 23:40 BUN/Creatinine Ratio 11.0 RATIO (10-20) 03/28/18 23:40 Glucose 239 mg/dL (74-106) H 03/28/18 23:40 Weight used for dosin.3 kg Estimated Creatinine Clearance: 71 Goal Trough: 15-20 mcg/mL Pharmacy Plan for Drug Dosing: Pharmacy Service will continue to monitor and adjust dosing as required. Follow-Up Labs: Trough Vancomycin Labs to be done on [date and time ordered]: 03/30/18 @1330
--- NOTE | 2018-03-29 04:59 | PCM.PN.BLA ---
Progress Note Procedure: RIJ Informed consent: The procedure plan, including medications, benefits and potential complications were discussed with the patient's daughter. The potential need to secondary procedures such as chest tube placement to evacuate a pneumothorax, was also conveyed. The patient was appropriately placed to maximize comfort. The site was cleansed and allowed to dry prior to draping the patient. The skin overlying the access site was infiltrated with lidocaine. The vein was successfully cannulated and a guidewire was inserted with the aid of an ultrasound. The needle was removed and the vein dilator was advanced over the guidewire. The dilator was removed and a catheter was threaded over the guidewire while maintaining control over the guidewire. The guidewire was removed and each port was sequentially aspirated and then flushed with saline. The catheter was sutured in place and the site was dressed using sterile technique. A chest x-ray was obtained and the IJ tip is in the middle of the SVC The patient tolerated the procedure well. Code Visit Procedures: 92225 Insert Non-tunnel CV Cath
[2018-03-29 05:12] LABS: Hematocrit 34.6 % (40-54); Hemoglobin 11.2 g/dl (13.0-16.5); Mean Corp Hgb Conc 32.4 g/gl (32-36); Mean Corpuscular Hgb 30.2 pg (27.0-32.0); Mean Corpuscular Volume 93.3 fL (80-94); Mean Platelet Vol. 9.6 fl (6.2-12.0); Platelet Count 265 K/mm3 (150-450); RBC Distribution Width CV 13.6 % (11.6-14.6); RBC Distribution Width SD 44.8 fl (35.1-43.9); Red Blood Count 3.71 M/mm3 (4.6-6.2); White Blood Count 18.9 K/mm3 (4.4-11.0)
[2018-03-29 05:13] LABS: Scan Indicated on CBC? Y/N NO
[2018-03-29 05:31] LABS: Anion Gap 7 (5-15); BUN 12 mg/dL (7-18); BUN/Creat Ratio 13.4 RATIO (10-20); Chloride 110 mmol/L (98-107); EST Glomerular Filtration Rate 93 mL/min (>60); Est Glom Filt Rate - Afr Amer 113 mL/min (>60); Estimated Creatinine Clearance 88.67 ml/min; Glucose 145 mg/dL (74-106); Magnesium 1.9 mg/dL (1.6-2.6); Phosphorus 2.6 mg/dL (2.5-4.9); Potassium 4.6 mmol/L (3.5-5.1); Sodium Level 142 mmol/L (136-145)
[2018-03-29] MEDS: Piperacil/Tazobactam 3.375 GM/50 ML ML IV ×3 (05:35→21:43)
[2018-03-29] MEDS: 0.9% NaCl Peripheral Flush Adult/Peds IV (05:49)
[2018-03-29] MEDS: Insulin Lispro 100 UNIT/ML INSULN.PEN SQ ×2 (05:54→21:44)
[2018-03-29 06:11] LABS: Bedside Glucose 150 mg/dL (70-110)
[2018-03-29 06:30] LABS: M R Staph aureus DNA By PCR Negative (Negative); Probe Check PASS; Specimen Processing Control PASS
[2018-03-29] MEDS: Propofol 10MG/Ml 1,000 MG/100 ML Bottle 2.115 MG CONT INF ×2 (06:37→14:32)
--- NOTE | 2018-03-29 06:54 | RAD_ITS ---
STUDY: X-RAY - ABDOMEN/PELVIS REASON FOR EXAM: Male, 57 years old. OG tube placement TECHNIQUE: Single AP view of the abdomen / pelvis. COMPARISON: 03/29/2018. FINDINGS: Lungs are hyperinflated. No infiltrate. Endotracheal tube in place with the tip 5.5 cm above the luli. OG tube tip in the stomach. EKG lines overlie the chest. Right IJ central line tip in the upper SVC. There is an unremarkable bowel gas pattern. There is no demonstrated free abdominal air. The visualized liver, spleen and kidneys are grossly normal in size and morphology. Normal soft tissue structures. Normal visualized osseous structures. RAD/Abdomen Single View (Portable) IMPRESSION: OG tube tip in the stomach. Hyperinflation lungs. Electronically Signed: Eduardo Villarreal DO at 7:57 EDT , Service support ,
--- NOTE | 2018-03-29 07:32 | PCM.CON.CC ---
Problem List (1) Septic shock Status: Acute (2) HCAP (healthcare-associated pneumonia) Status: Acute (3) Acute on chronic respiratory failure with hypoxemia Status: Acute (4) Atherosclerotic heart disease of [place] coronary artery without angina pectoris Status: Chronic Qualifiers: [place] vs. transplanted heart: [place] heart Qualified Code(s): I25.10 - Atherosclerotic heart disease of [place] coronary artery without angina pectoris Comment: PTCA and stenting RCA 06/27/2008 at [facility]; (5) Ischemic cardiomyopathy Status: Chronic (6) HLD (hyperlipidemia) Status: Chronic Qualifiers: Hyperlipidemia type: pure hypercholesterolemia Qualified Code(s): E78.00 - Pure hypercholesterolemia, unspecified; E78.0 - Pure hypercholesterolemia (7) CAD (coronary artery disease) Status: Chronic Comment: PTCA and stenting RCA 06/27/2008 at [facility]; (8) H/O percutaneous transluminal coronary angioplasty Status: Chronic Comment: PTCA and stenting RCA 06/27/2008 at [facility]; (9) COPD (chronic obstructive pulmonary disease) Status: Chronic (10) COPD (chronic obstructive pulmonary disease) with emphysema Status: Chronic Qualifiers: Emphysema type: unspecified Qualified Code(s): J43.9 - Emphysema, unspecified (11) Coronary arteriosclerosis Status: Chronic (12) Nicotine abuse Status: Chronic (13) History of pulmonary embolism Status: Chronic Reason for Consult Date of Consultation: 03/29/18 Reason for Consultation: Acute respiratory failure History of Present Illness: The patient is a 57 year old M, with past medical history listed below, who presented to [facility] on 03/29/2018 following a respiratory arrest. Patient reportedly has a history of COPD, coronary artery disease and asthma. Patient reportedly had called EMS to his house secondary to shortness of breath and when they arrived his pulse oximeter was 55% on room air. Patient was reportedly in respiratory arrest and unresponsive in route to the hospital. Patient did respond transiently to bag mask ventilation, but had to be intubated as soon as he arrives. Patient reportedly does see a head cook at the [facility] and is a heavy smoker. Patient was given antibiotics, Solu-Medrol and sedation. OG was noted to be in poor position, so this was removed. While in the ER, patient reportedly had increased agitation. Patient received a total of 20 mg of Versed and was placed on a Versed drip. On arrival to the intensive care unit, patient was noted to be agitated. Patient's oxygenation is doing well, but increased peak pressures are noted on the ventilator. No family is at the bedside to provide any history, so all data was taken from the medical record. Patient's blood pressure is marginal, but no pressors have been required. Patient reportedly was at [facility] in [place] where he was admitted to the intensive care unit for an asthma attack. Patient had an elevated white count at that time that was attributed to a small toe cellulitis. Patient reportedly did have episodes of posttussive emesis at home. Patient was reportedly on a prednisone taper after discharge from the hospital. Past Medical History Past Medical History (Chronic Problems): Chronic Problems (Last Reviewed 03/29/18 @ 04:50 by Godfrey Monte MD) Hypotension, unspecified (Chronic) Atherosclerotic heart disease of [place] coronary artery without angina pectoris (Chronic) PTCA and stenting RCA 06/27/2008 at [facility]; Ischemic cardiomyopathy (Chronic) HLD (hyperlipidemia) (Chronic) Dyspnea (Chronic) Myocardial infarction, inferior wall (Chronic) CAD (coronary artery disease) (Chronic) PTCA and stenting RCA 06/27/2008 at [facility]; H/O percutaneous transluminal coronary angioplasty (Chronic) PTCA and stenting RCA 06/27/2008 at [facility]; COPD (chronic obstructive pulmonary disease) (Chronic) 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) Atherosclerosis (Chronic) COPD (chronic obstructive pulmonary disease) with emphysema (Chronic) Chest pain (Chronic) Coronary arteriosclerosis (Chronic) COPD exacerbation (Chronic) CAD (coronary artery disease) (Chronic) Nicotine abuse (Chronic) History of pulmonary embolism (Chronic) Medical History: Medical History (Last Reviewed 03/29/18 @ 04:50 by Godfrey Monte MD) Atherosclerotic heart disease of [place] coronary artery without angina pectoris (Chronic) I25.10 PTCA and stenting RCA 06/27/2008 at [facility]; Ischemic cardiomyopathy (Chronic) I25.5 HLD (hyperlipidemia) (Chronic) E78.5 Dyspnea (Chronic) R06.00 Myocardial infarction, inferior wall (Chronic) I21.19 CAD (coronary artery disease) (Chronic) I25.10 PTCA and stenting RCA 06/27/2008 at [facility]; COPD (chronic obstructive pulmonary disease) (Chronic) J44.9 Allergies latex Allergy (Verified 03/28/18 23:40) Rash varenicline tartrate [From Chantix] Allergy (Verified 03/28/18 23:40) Hives aspirin Adverse Reaction (Verified 03/28/18 23:40) Upset Stomach Home Medications: Ambulatory Orders Medication Instructions Recorded Albuterol Inhaler [Ventolin Hfa] 2 puff INHALATION Q2H PRN 06/16/13 Budesonide/Formoterol 160/4.5 2 puff INHALATION BID PRN 06/16/13 [Symbicort 160/4.5 Mcg Inhaler (SP)] Clopidogrel Bisulfate [Plavix] 75 mg PO QHS 06/16/13 Levocetirizine Dihydrochloride 5 mg PO DAILY 07/12/15 [Xyzal] Cholecalciferol (VIT D3) [Vitamin 2,000 units PO QHS 03/25/16 D3] Montelukast Sodium [Singulair] 10 mg PO QHS 03/25/16 Omeprazole [Prilosec] 40 mg PO DAILY 05/13/17 Ipratropium/Albuterol Sulfate 3 ml INHALATION Q4H.RT 05/15/17 [Duoneb] Aspirin [Aspirin, Baby] 81 mg PO DAILY@0800 06/20/17 cyanocobalamin (vit B-12) 1,000 1,000 mcg PO QDAY 10/15/17 mcg tablet Atorvastatin Calcium [Lipitor] 20 mg PO DAILY 12/14/17 Cetirizine HCl [Zyrtec] 10 mg PO QHS 12/14/17 Doxycycline Monohydrate 100 mg PO BID #20 capsule 12/14/17 Prednisone [Deltasone] 60 mg PO DAILY #12 tablet 12/14/17 Surgical History: Surgical History (Last Reviewed 03/29/18 @ 04:50 by Godfrey Monte MD) H/O percutaneous transluminal coronary angioplasty (Chronic) Z98.61 PTCA and stenting RCA 06/27/2008 at [facility]; Surgical History: angioplasty, - Psychiatric History: No pertinent psych hx Smoking Status: Current every day smoker - *Family History Maternal Family History: Family History (Last Reviewed 10/21/17 @ 14:16 by Alvaro Barger) Father CAD (coronary artery disease) Heart disease Myocardial infarction Mother Diabetes Brother Hypertension History Items: Diabetes Paternal Family History: Family History (Last Reviewed 10/21/17 @ 14:16 by Alvaro Barger) Father CAD (coronary artery disease) Heart disease Myocardial infarction Mother Diabetes Brother Hypertension History Items: Heart Disease Review of Systems Unable to obtain accurate/complete ROS d/t: Intubated and sedated. Patient Problems: Active and Suspected Problems (Last Reviewed 03/29/18 @ 04:50 by Godfrey Monte MD) Septic shock (Acute) HCAP (healthcare-associated pneumonia) (Acute) Acute respiratory failure (Acute) Hypoxemia (Acute) Acute on chronic respiratory failure with hypoxemia (Acute) Objective: Chest x-ray was personally reviewed and shows the endotracheal tube at the aortic notch. CT of the chest was unreadable secondary to movement artifact. Radiology thought a lingular infiltrate may be present. No pulmonary function tests are available for review. - Physical Exam General: - - Intubated and sedated. RASS -3. Not following commands. HEENT: Atraumatic, PERRLA, EOMI, Normocephalic, - - No scleral icterus or injection noted. Oral: No Gingival or Mucosal Lesions/ Ulcerations, Dry Mucosa Neck: Supple, No JVD, No Nodes, Trachea Midline, - - Right IJ clean, dry and intact. Lungs: No rhonchi, No rales, Diminished, Wheezes - All lung noe, - - Symmetric expansion. No dullness to percussion. Peak airway pressures of 35 Cardiovascular: Normal S1, Normal S2, No murmurs, No rub noted, No Gallop, Tachycardic Abdomen: Bowel Sounds Present, Soft, Non Tender, Non-Distended Extremities: No cyanosis, No edema, Capillary Refill Less than 3 Seconds, Clubbing Skin: No rashes, No breakdown, - - Tobacco stained nails Musculoskeletal: No Tenderness to Palpation of Joints or Extremities Lymphatic: No Cervical, Supraclavicular, or Inguinal Adenopathy Neurological: - - Not following commands. Spontaneous movement of all extremities. Localizes to stimulus. Positive gag and cough reflexes noted. Psych/Mental Status: Flat Affect, Impulsive Vital Signs Temp Pulse Resp BP Pulse Ox 37.0 C 89 19 H 94/70 100 03/29/18 01:00 03/29/18 04:50 03/29/18 04:50 03/29/18 03:00 03/29/18 04:50 Oxygen Delivery Method Mechanical Ventilator Weight: 70.5 kg Body Mass Index (BMI) 23.6 Intake and Output for Last 24 Hours 03/27/18 03/28/18 03/29/18 23:59 23:59 23:59 Intake Total 237.6 / 237.6 Output Total 850 / 850 Balance -612.4 / -612.4 Laboratory Tests Past 24 Hrs 03/29/18 03/29/18 03/29/18 04:50 04:56 04:56 WBC 18.9 H RBC 3.71 L Hgb 11.2 L Hct 34.6 L MCV 93.3 MCH 30.2 MCHC 32.4 RDW 13.6 RDW Differential 44.8 H Plt Count 265 MPV 9.6 Sodium Potassium Chloride Carbon Dioxide Anion Gap BUN Creatinine Estim Creat Clear Calc Est GFR (MDRD) Af Amer Est GFR (MDRD) Non-Af BUN/Creatinine Ratio Glucose Lactic Acid 2.0 Calcium Phosphorus Magnesium MRSA (PCR) Negative 03/29/18 04:56 WBC RBC Hgb Hct MCV MCH MCHC RDW RDW Differential Plt Count MPV Sodium 142 Potassium 4.6 Chloride 110 H Carbon Dioxide 25.0 Anion Gap 7 BUN 12 Creatinine 0.90 Estim Creat Clear Calc 88.67 Est GFR (MDRD) Af Amer 113 Est GFR (MDRD) Non-Af 93 BUN/Creatinine Ratio 13.4 Glucose 145 H Lactic Acid Calcium 7.0 L Phosphorus 2.6 Magnesium 1.9 MRSA (PCR) POC Glucose 03/29/18 05:51 POC Glucose 150 H Clinical Impression(s) from Imaging Studies Chest X-Ray 03/28/18 00:15 IMPRESSION: Endotracheal tube is in adequate position. Nasogastric tube is malpositioned, looping within the stomach, with its tip in the thoracic esophagus. Tube should be removed and replaced. Chronic interstitial changes with evidence for COPD. No evidence for acute cardiopulmonary pathology. Electronically Signed: Tyler Keene MD at 1:42 EDT , Service support , Chest CTA 03/28/18 23:50 IMPRESSION: 1. Markedly limited exam due to motion artifact and timing of the contrast bolus with no definitive evidence of acute pulmonary embolism. 2. Mild patchy airspace infiltration within the lingula and within the right middle lobe which may represent atelectasis versus infiltrate versus possible aspiration. Electronically Signed: Jossue Conti MD at 1:52 EDT Tel , Service support , Chest X-Ray 03/29/18 03:40 IMPRESSION: 1. Nasogastric tube tip withdrawn into the proximal esophagus. 2. Appropriate positioning of newly placed right internal jugular central venous line. 3. Mild chronic bilateral perihilar interstitial change. Electronically Signed: Jossue Conti MD at 4:14 EDT Tel , Service support , Assessment/Plan Active and Suspected Problems (Last Reviewed 03/29/18 @ 04:50 by Godfrey Monte MD) Septic shock (Acute) HCAP (healthcare-associated pneumonia) (Acute) Acute respiratory failure (Acute) Hypoxemia (Acute) Acute on chronic respiratory failure with hypoxemia (Acute) RECOMMENDATIONS: 1. Increase Solu-Medrol to IV every 6 2. Continue empiric antibiotics pending culture results 3. Wean oxygen as tolerated 4. Spontaneous breathing and awakening trials per protocol 5. Sliding scale insulin, may need to add basal insulin 6. Initiate tube feeds per dietitian recommendations IMPRESSIONS: 1. Acute hypercarbic respiratory failure secondary to probable COPD exacerbation Very little history about patient's baseline respiratory status is available at this time. Patient does have significant wheezing and elevated peak airway pressures on presentation. Patient was started on prednisone recently with doxycycline. Little toe infection reportedly was the etiology of leukocytosis previously, but this does not look significant on physical exam. 2. Hypotension Unclear if this relates to the development of severe sepsis versus medication effect. Patient did receive 20 mg of Versed plus a Versed drip in the ER. Patient is on appropriate antibiotics at this time. Will bolus with IV fluids if necessary. Patient reportedly does have an extensive heart history, but no recent information is available at this time. Echocardiogram in 2012 showed hypotension with preserved ejection fraction. Will obtain another echocardiogram. 3. Possible anoxic injury Unclear report of down time. Patient currently agitated and not cooperating with a full neurologic exam. Definitely has spinal reflexes and spontaneous respirations. 4. Hyperglycemia May be related to the use of steroid therapy. Sliding scale insulin for now. Cannot exclude the need for basal insulin after initiation of tube feeds. 5. History of PE/active tobacco abuse/poor background information/reported CAD Complicates care, management, recovery and prognosis. Can use nicotine patch if requested. Okay to continue with baseline Lipitor, Plavix and aspirin therapy for now. TIME: 35 minutes critical care time spent addressing patient's acute respiratory failure, hypotension, review of all data and collaboration with care team (7 AM to 8 AM) Code Visit 9xxxx: [id number] Critical care first hour
--- NOTE | 2018-03-29 07:39 | CON.PCM_ITS ---
Problem List (1) Septic shock Status: Acute (2) HCAP (healthcare-associated pneumonia) Status: Acute (3) Acute on chronic respiratory failure with hypoxemia Status: Acute (4) Atherosclerotic heart disease of [place] coronary artery without angina pectoris Status: Chronic Qualifiers: [place] vs. transplanted heart: [place] heart Qualified Code(s): I25.10 - Atherosclerotic heart disease of [place] coronary artery without angina pectoris Comment: PTCA and stenting RCA 06/27/2008 at [place]; (5) Ischemic cardiomyopathy Status: Chronic (6) HLD (hyperlipidemia) Status: Chronic Qualifiers: Hyperlipidemia type: pure hypercholesterolemia Qualified Code(s): E78.00 - Pure hypercholesterolemia, unspecified; E78.0 - Pure hypercholesterolemia (7) CAD (coronary artery disease) Status: Chronic Comment: PTCA and stenting RCA 06/27/2008 at [place]; (8) H/O percutaneous transluminal coronary angioplasty Status: Chronic Comment: PTCA and stenting RCA 06/27/2008 at [place]; (9) COPD (chronic obstructive pulmonary disease) Status: Chronic (10) COPD (chronic obstructive pulmonary disease) with emphysema Status: Chronic Qualifiers: Emphysema type: unspecified Qualified Code(s): J43.9 - Emphysema, unspecified (11) Coronary arteriosclerosis Status: Chronic (12) Nicotine abuse Status: Chronic (13) History of pulmonary embolism Status: Chronic Reason for Consult Date of Consultation: 03/29/18 Reason for Consultation: Acute respiratory failure History of Present Illness: The patient is a 57 year old M, with past medical history listed below, who presented to [facility] on 03/29/2018 following a respiratory arrest. Patient reportedly has a history of COPD, coronary artery disease and asthma. Patient reportedly had called EMS to his house secondary to shortness of breath and when they arrived his pulse oximeter was 55% on room air. Patient was reportedly in respiratory arrest and unresponsive in route to the hospital. Patient did respond transiently to bag mask ventilation, but had to be intubated as soon as he arrives. Patient reportedly does see a turner machine at the [place] and is a heavy smoker. Patient was given antibiotics, Solu-Medrol and sedation. OG was noted to be in poor position, so this was removed. While in the ER, patient reportedly had increased agitation. Patient received a total of 20 mg of Versed and was placed on a Versed drip. On arrival to the intensive care unit, patient was noted to be agitated. Patient's oxygenation is doing well, but increased peak pressures are noted on the ventilator. No family is at the bedside to provide any history, so all data was taken from the medical record. Patient's blood pressure is marginal, but no pressors have been required. Patient reportedly was at [facility] in [place] where he was admitted to the intensive care unit for an asthma attack. Patient had an elevated white count at that time that was attributed to a small toe cellulitis. Patient reportedly did have episodes of posttussive emesis at home. Patient was reportedly on a prednisone taper after discharge from the hospital. Past Medical History Past Medical History (Chronic Problems): Chronic Problems (Last Reviewed 03/29/18 @ 04:50 by Gofdrey Monte MD) Hypotension, unspecified (Chronic) Atherosclerotic heart disease of [place] coronary artery without angina pectoris (Chronic) PTCA and stenting RCA 06/27/2008 at [place]; Ischemic cardiomyopathy (Chronic) HLD (hyperlipidemia) (Chronic) Dyspnea (Chronic) Myocardial infarction, inferior wall (Chronic) CAD (coronary artery disease) (Chronic) PTCA and stenting RCA 06/27/2008 at [place]; H/O percutaneous transluminal coronary angioplasty (Chronic) PTCA and stenting RCA 06/27/2008 at [place]; COPD (chronic obstructive pulmonary disease) (Chronic) 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) Atherosclerosis (Chronic) COPD (chronic obstructive pulmonary disease) with emphysema (Chronic) Chest pain (Chronic) Coronary arteriosclerosis (Chronic) COPD exacerbation (Chronic) CAD (coronary artery disease) (Chronic) Nicotine abuse (Chronic) History of pulmonary embolism (Chronic) Medical History: Medical History (Last Reviewed 03/29/18 @ 04:50 by Godfrey Monte MD) Atherosclerotic heart disease of [place] coronary artery without angina pectoris (Chronic) I25.10 PTCA and stenting RCA 06/27/2008 at [place]; Ischemic cardiomyopathy (Chronic) I25.5 HLD (hyperlipidemia) (Chronic) E78.5 Dyspnea (Chronic) R06.00 Myocardial infarction, inferior wall (Chronic) I21.19 CAD (coronary artery disease) (Chronic) I25.10 PTCA and stenting RCA 06/27/2008 at [place]; COPD (chronic obstructive pulmonary disease) (Chronic) J44.9 Allergies latex Allergy (Verified 03/28/18 23:40) Rash varenicline tartrate [From Chantix] Allergy (Verified 03/28/18 23:40) Hives aspirin Adverse Reaction (Verified 03/28/18 23:40) Upset Stomach Home Medications: Ambulatory Orders Medication Instructions Recorded Albuterol Inhaler [Ventolin Hfa] 2 puff INHALATION Q2H PRN 06/16/13 Budesonide/Formoterol 160/4.5 2 puff INHALATION BID PRN 06/16/13 [Symbicort 160/4.5 Mcg Inhaler (SP)] Clopidogrel Bisulfate [Plavix] 75 mg PO QHS 06/16/13 Levocetirizine Dihydrochloride 5 mg PO DAILY 07/12/15 [Xyzal] Cholecalciferol (VIT D3) [Vitamin 2,000 units PO QHS 03/25/16 D3] Montelukast Sodium [Singulair] 10 mg PO QHS 03/25/16 Omeprazole [Prilosec] 40 mg PO DAILY 05/13/17 Ipratropium/Albuterol Sulfate 3 ml INHALATION Q4H.RT 05/15/17 [Duoneb] Aspirin [Aspirin, Baby] 81 mg PO DAILY@0800 06/20/17 cyanocobalamin (vit B-12) 1,000 1,000 mcg PO QDAY 10/15/17 mcg tablet Atorvastatin Calcium [Lipitor] 20 mg PO DAILY 12/14/17 Cetirizine HCl [Zyrtec] 10 mg PO QHS 12/14/17 Doxycycline Monohydrate 100 mg PO BID #20 capsule 12/14/17 Prednisone [Deltasone] 60 mg PO DAILY #12 tablet 12/14/17 Surgical History: Surgical History (Last Reviewed 03/29/18 @ 04:50 by Godfrey Monte MD) H/O percutaneous transluminal coronary angioplasty (Chronic) Z98.61 PTCA and stenting RCA 06/27/2008 at [place]; Surgical History: angioplasty, - Psychiatric History: No pertinent psych hx Smoking Status: Current every day smoker - *Family History Maternal Family History: Family History (Last Reviewed 10/21/17 @ 14:16 by Alvaro Barger) Father CAD (coronary artery disease) Heart disease Myocardial infarction Mother Diabetes Brother Hypertension History Items: Diabetes Paternal Family History: Family History (Last Reviewed 10/21/17 @ 14:16 by Alvaro Barger) Father CAD (coronary artery disease) Heart disease Myocardial infarction Mother Diabetes Brother Hypertension History Items: Heart Disease Review of Systems Unable to obtain accurate/complete ROS d/t: Intubated and sedated. Patient Problems: Active and Suspected Problems (Last Reviewed 03/29/18 @ 04:50 by Godfrey Monte MD) Septic shock (Acute) HCAP (healthcare-associated pneumonia) (Acute) Acute respiratory failure (Acute) Hypoxemia (Acute) Acute on chronic respiratory failure with hypoxemia (Acute) Objective: Chest x-ray was personally reviewed and shows the endotracheal tube at the aortic notch. CT of the chest was unreadable secondary to movement artifact. Radiology thought a lingular infiltrate may be present. No pulmonary function tests are available for review. - Physical Exam General: - - Intubated and sedated. RASS -3. Not following commands. HEENT: Atraumatic, PERRLA, EOMI, Normocephalic, - - No scleral icterus or injection noted. Oral: No Gingival or Mucosal Lesions/ Ulcerations, Dry Mucosa Neck: Supple, No JVD, No Nodes, Trachea Midline, - - Right IJ clean, dry and intact. Lungs: No rhonchi, No rales, Diminished, Wheezes - All lung noe, - - Symmetric expansion. No dullness to percussion. Peak airway pressures of 35 Cardiovascular: Normal S1, Normal S2, No murmurs, No rub noted, No Gallop, Tachycardic Abdomen: Bowel Sounds Present, Soft, Non Tender, Non-Distended Extremities: No cyanosis, No edema, Capillary Refill Less than 3 Seconds, Clubbing Skin: No rashes, No breakdown, - - Tobacco stained nails Musculoskeletal: No Tenderness to Palpation of Joints or Extremities Lymphatic: No Cervical, Supraclavicular, or Inguinal Adenopathy Neurological: - - Not following commands. Spontaneous movement of all extremities. Localizes to stimulus. Positive gag and cough reflexes noted. Psych/Mental Status: Flat Affect, Impulsive Vital Signs Temp Pulse Resp BP Pulse Ox 37.0 C 89 19 H 94/70 100 03/29/18 01:00 03/29/18 04:50 03/29/18 04:50 03/29/18 03:00 03/29/18 04:50 Oxygen Delivery Method Mechanical Ventilator Weight: 70.5 kg Body Mass Index (BMI) 23.6 Intake and Output for Last 24 Hours 03/27/18 03/28/18 03/29/18 23:59 23:59 23:59 Intake Total 237.6 / 237.6 Output Total 850 / 850 Balance -612.4 / -612.4 Laboratory Tests Past 24 Hrs 03/29/18 03/29/18 03/29/18 04:50 04:56 04:56 WBC 18.9 H RBC 3.71 L Hgb 11.2 L Hct 34.6 L MCV 93.3 MCH 30.2 MCHC 32.4 RDW 13.6 RDW Differential 44.8 H Plt Count 265 MPV 9.6 Sodium Potassium Chloride Carbon Dioxide Anion Gap BUN Creatinine Estim Creat Clear Calc Est GFR (MDRD) Af Amer Est GFR (MDRD) Non-Af BUN/Creatinine Ratio Glucose Lactic Acid 2.0 Calcium Phosphorus Magnesium MRSA (PCR) Negative 03/29/18 04:56 WBC RBC Hgb Hct MCV MCH MCHC RDW RDW Differential Plt Count MPV Sodium 142 Potassium 4.6 Chloride 110 H Carbon Dioxide 25.0 Anion Gap 7 BUN 12 Creatinine 0.90 Estim Creat Clear Calc 88.67 Est GFR (MDRD) Af Amer 113 Est GFR (MDRD) Non-Af 93 BUN/Creatinine Ratio 13.4 Glucose 145 H Lactic Acid Calcium 7.0 L Phosphorus 2.6 Magnesium 1.9 MRSA (PCR) POC Glucose 03/29/18 05:51 POC Glucose 150 H Clinical Impression(s) from Imaging Studies Chest X-Ray 03/28/18 00:15 IMPRESSION: Endotracheal tube is in adequate position. Nasogastric tube is malpositioned, looping within the stomach, with its tip in the thoracic esophagus. Tube should be removed and replaced. Chronic interstitial changes with evidence for COPD. No evidence for acute cardiopulmonary pathology. Electronically Signed: Tyler Keene MD at 1:42 EDT , Service support , Chest CTA 03/28/18 23:50 IMPRESSION: 1. Markedly limited exam due to motion artifact and timing of the contrast bolus with no definitive evidence of acute pulmonary embolism. 2. Mild patchy airspace infiltration within the lingula and within the right middle lobe which may represent atelectasis versus infiltrate versus possible aspiration. Electronically Signed: Jossue Conti MD at 1:52 EDT Tel , Service support , Chest X-Ray 03/29/18 03:40 IMPRESSION: 1. Nasogastric tube tip withdrawn into the proximal esophagus. 2. Appropriate positioning of newly placed right internal jugular central venous line. 3. Mild chronic bilateral perihilar interstitial change. Electronically Signed: Jossue Conti MD at 4:14 EDT Tel , Service support , Assessment/Plan Active and Suspected Problems (Last Reviewed 03/29/18 @ 04:50 by Godfrey Monte MD) Septic shock (Acute) HCAP (healthcare-associated pneumonia) (Acute) Acute respiratory failure (Acute) Hypoxemia (Acute) Acute on chronic respiratory failure with hypoxemia (Acute) RECOMMENDATIONS: 1. Increase Solu-Medrol to IV every 6 2. Continue empiric antibiotics pending culture results 3. Wean oxygen as tolerated 4. Spontaneous breathing and awakening trials per protocol 5. Sliding scale insulin, may need to add basal insulin 6. Initiate tube feeds per dietitian recommendations IMPRESSIONS: 1. Acute hypercarbic respiratory failure secondary to probable COPD exacerbation Very little history about patient's baseline respiratory status is available at this time. Patient does have significant wheezing and elevated peak airway pressures on presentation. Patient was started on prednisone recently with doxycycline. Little toe infection reportedly was the etiology of leukocytosis previously, but this does not look significant on physical exam. 2. Hypotension Unclear if this relates to the development of severe sepsis versus medication effect. Patient did receive 20 mg of Versed plus a Versed drip in the ER. Patient is on appropriate antibiotics at this time. Will bolus with IV fluids if necessary. Patient reportedly does have an extensive heart history , but no recent information is available at this time. Echocardiogram in 2012 showed hypotension with preserved ejection fraction. Will obtain another echocardiogram. 3. Possible anoxic injury Unclear report of down time. Patient currently agitated and not cooperating with a full neurologic exam. Definitely has spinal reflexes and spontaneous respirations. 4. Hyperglycemia May be related to the use of steroid therapy. Sliding scale insulin for now. Cannot exclude the need for basal insulin after initiation of tube feeds. 5. History of PE/active tobacco abuse/poor background information/reported CAD Complicates care, management, recovery and prognosis. Can use nicotine patch if requested. Okay to continue with baseline Lipitor, Plavix and aspirin therapy for now. TIME: 35 minutes critical care time spent addressing patient's acute respiratory failure, hypotension, review of all data and collaboration with care team (7 AM to 8 AM) Code Visit [id number]: [id number] Critical care first hour
--- NOTE | 2018-03-29 08:01 | ECHOD_ITS ---
Reason For Study: Dyspnea/ SOB Procedure This was a 2D Doppler, Color Flow transthoracic echocardiogram. Technically difficult study. Echo done with patient supine and on a vent. The study was technically difficult. Exam performed portable in ICU/CCU. Left Ventricle Normal LV size. Segmental dysfunction with preserved ejection fraction (see wall motion). The estimated ejection fraction is 65 %. Unable to assess diastolic dysfunction. Infero-Basal: Mildly hypokinetic. Mid-Posterior: Mildly hypokinetic. Mid-Inferior: Mildly hypokinetic. Mid- inferoseptal : Mildly hypokinetic. Right Ventricle Normal RV size. Normal systolic function. Atria Normal left atrium. Normal right atrium. No doppler evidence for ASD. Mitral Valve There is no mitral annular calcification. Normal mitral valve. Trivial mitral valve insufficiency. Tricuspid Valve Normal tricuspid valve. Trivial tricuspid valve insufficiency. Unable to estimate RV systolic pressure/pulmonary artery pressure due to technically difficult study. Aortic Valve Trisinus/trileaflet aortic valve. Mild focal aortic valve thickening. Pulmonic Valve The pulmonic valve is not well visualized. Great Vessels The aortic root is not well visualized. Pericardium/Pleural No pericardial effusion. MMode/2D Measurements & Calculations LVIDd: 4.6 cm IVSd: 1.1 cm LVIDs: 3.0 cm LVPWd: 0.92 cm FS: 34.0 % Time Measurements MV dec time: 0.16 sec Doppler Measurements & Calculations MV E max loki: 71.9 cm/sec Ao V2 max: 92.0 cm/sec LV V1 max: 78.9 cm/sec MV A max loki: 54.5 cm/sec Ao max P.4 mmHg LV V1 max P.5 mmHg MV E/A: 1.3 Ao V2 mean: 65.5 cm/sec LV V1 mean P.3 mmHg Ao mean P.9 mmHg LV V1 mean: 52.4 cm/sec Ao V2 VTI: 17.3 cm LV V1 VTI: 14.4 cm PA V2 max: 108.8 cm/sec Interpretation Summary The study was technically difficult. Segmental dysfunction with preserved ejection fraction (see wall motion). The estimated ejection fraction is 65 %. Trivial mitral valve insufficiency. Trivial tricuspid valve insufficiency. Mild focal aortic valve thickening. Unable to estimate RV systolic pressure/pulmonary artery pressure due to technically difficult study. Unable to assess diastolic dysfunction. Ordering Physician: Bruce Devries Referring Physician: Shemar Figueroa Performed By: Reece Campos RCS
[2018-03-29 08:04] LABS: CPK Total, Creatine Kinase 360 U/L (39-308); Triglycerides 73 mg/dL
[2018-03-29] MEDS: Chlorhexidine 15 ML PO ×2 (09:18→21:36)
[2018-03-29] MEDS: Aspirin 81 MG TAB.CHEW PO (09:42)
[2018-03-29] MEDS: Famotidine 20 MG Tablet GT ×2 (09:42→21:36)
[2018-03-29] MEDS: Enoxaparin 40 MG/0.4 ML Syringe SC (09:42)
[2018-03-29] MEDS: Cyanocobalamin 500 MCG Tablet 1000 MCG PO (09:43)
[2018-03-29 10:10] LABS: Base Excess -3 mmol/L (-2 to +2); Bicarbonate 23.5 mmol/L (22-26); Blood Gas Specimen Type ART; FI02 40; Mode A-C; O2 Delivery Device Vent; PEEP 5; PO2 85 mmHG (75-100); RR 14; SITE R Brachial; SO2 95 % (95-99); Time Given 825; Total Carbon Dioxide 25 mmol/L; Vt 500; pCO2 51.6 mmHg (35-45); pH 7.27 (7.35-7.45)
[2018-03-29] MEDS: CHLORHEXIDINE GLUC 2% CLOTH 1 EACH TOWELETTE TOPICAL (12:05)
[2018-03-29 12:06] LABS: Bedside Glucose 143 mg/dL (70-110)
--- NOTE | 2018-03-29 12:43 | CASEMGMT ---
This RN CM to room to complete CM assessment and pt is intubated at this time and there is no family present. SStaten RN CM
[2018-03-29] MEDS: Vancomycin IV 1,000 MG/200 ML BAG 200 MG IV (14:32)
[2018-03-29 14:46] LABS: Bedside Glucose 126 mg/dL (70-110)
[2018-03-29] MEDS: LORazepam 2 MG/ML Syringe IV (17:20)
[2018-03-29 17:45] LABS: Bedside Glucose 129 mg/dL (70-110)
--- NOTE | 2018-03-29 20:30 | NURSING ---
gave pt's watch and skull ring to daughter Clarice.
[2018-03-29] MEDS: Clopidogrel Bisulfate 75 MG Tablet GT (21:36)
[2018-03-29] MEDS: Atorvastatin Calcium 20 MG Tablet GT (21:36)
[2018-03-29] MEDS: Loratadine 10 MG Tablet GT (21:36)
[2018-03-29] MEDS: Montelukast 10 MG Tablet GT (21:37)
[2018-03-29 22:15] LABS: Bedside Glucose 151 mg/dL (70-110)
[2018-03-30] VITALS (41 sets, daily range): BP systolic 90–125; BP diastolic 60–82; PULSE 77–104; RESP 10–82; TEMP 36.8–37.4; O2SAT 88–99
[2018-03-30 01:01] LABS: Bedside Glucose 127 mg/dL (70-110)
[2018-03-30] MEDS: Vancomycin IV 1,000 MG/200 ML BAG 200 MG IV ×2 (01:09→13:58)
[2018-03-30] MEDS: Ipratropium/Albuterol Sulfate 3 ML AMPUL.NEB INHALATION ×6 (02:58→23:18)
--- NOTE | 2018-03-30 03:30 | NURSING ---
PROVIDED BRIEF UPDATE ON PT TO CHARGE NURSE. CHARGE NURSE WILL BE TAKING OVER CARE OF PT.
[2018-03-30 04:28] LABS: Absolute Lymphocyte Count 0.45 X10^3/ul (0.83-4.51); Absolute Neutrophil Count 10.6 X10^3/uL (2.0-7.7); Hematocrit 34.4 % (40-54); Hemoglobin 10.9 g/dl (13.0-16.5); Lymphocyte # 0.45 X10^3/ul (4.0); Lymphocyte % 3.8 % (19-41); Mean Corp Hgb Conc 31.7 g/gl (32-36); Mean Corpuscular Hgb 30.1 pg (27.0-32.0); Mean Platelet Vol. 9.7 fl (6.2-12.0); Monocyte# 0.67 X10^3/uL; Monocyte% 5.7 % (0-10); Neutrophil # 10.64 X10^3/uL (2.7-7.7); Neutrophil % 90.3 % (47-70); Platelet Count 251 K/mm3 (150-450); RBC Distribution Width SD 46.4 fl (35.1-43.9); Red Blood Count 3.62 M/mm3 (4.6-6.2); White Blood Count 11.8 K/mm3 (4.4-11.0)
[2018-03-30 04:29] LABS: Differential Indicated SCAN CRITERIA MET; POSITIVE COUNT NO; POSITIVE DIFFERENTIAL YES; POSITIVE MORPHOLOGY NO
[2018-03-30 04:34] LABS: Anion Gap 8 (5-15); BUN 11 mg/dL (7-18); BUN/Creat Ratio 13.8 RATIO (10-20); Calcium,Total 7.8 mg/dL (8.5-10.1); Chloride 109 mmol/L (98-107); EST Glomerular Filtration Rate 106 mL/min (>60); Est Glom Filt Rate - Afr Amer 129 mL/min (>60); Estimated Creatinine Clearance 99.75 ml/min; Glucose 130 mg/dL (74-106); Sodium Level 145 mmol/L (136-145)
[2018-03-30] MEDS: Piperacil/Tazobactam 3.375 GM/50 ML ML IV ×3 (05:29→21:41)
[2018-03-30 05:40] LABS: Bedside Glucose 134 mg/dL (70-110)
--- NOTE | 2018-03-30 06:25 | NURSING ---
Pt. pulled out OG when being suctioned down ETT. Dr. Devries said ok to wait and see if pt. can be extubated before reinserting OG.
[2018-03-30 06:51] LABS: Base Excess -3 mmol/L (-2 to +2); Bicarbonate 23.1 mmol/L (22-26); Blood Gas Specimen Type ART; FI02 35; Mode CPAP PS; O2 Delivery Device Vent; PEEP 5; PO2 75 mmHG (75-100); PS 5; SITE R Brachial; SO2 93 % (95-99); Time Given 640; Total Carbon Dioxide 25 mmol/L; pCO2 46.4 mmHg (35-45); pH 7.31 (7.35-7.45)
--- NOTE | 2018-03-30 06:58 | CPS ---
Patient failed weaning trial per
--- NOTE | 2018-03-30 07:19 | PCM.PN.INT ---
Subjective: Patient did okay overnight. Patient did qualify for a spontaneous breathing trial this morning and was able to make it 1 hour. Patient did have difficulty with secretions during the trial and ABG showed acidosis. Patient was placed back on mechanical ventilation. Patient did require frequent redirection during sedation trial. General: Alert, Cooperative - Directable, - - Mild respiratory distress during spontaneous breathing trial. Appears older than stated age. HEENT: Atraumatic, PERRLA, EOMI, Normocephalic, - - Scleral injection without icterus Oral: Moist Mucosa, No Gingival or Mucosal Lesions/ Ulcerations Neck: Supple, No JVD, No Nodes, Trachea Midline Lungs: No rhonchi, No rales, Diminished, Wheezes - Bilateral, - - Symmetric expansion. No dullness to percussion. Cardiovascular: Regular rate, Regular Rhythm, Normal S1, Normal S2, No murmurs, No rub noted, No Gallop Abdomen: Bowel Sounds Present, Soft, Non Tender, Non-Distended Extremities: No cyanosis, No edema, Clubbing Skin: - - No significant change compared to previous Musculoskeletal: No Tenderness to Palpation of Joints or Extremities, No Muscle Wasting Lymphatic: No Cervical, Supraclavicular, or Inguinal Adenopathy Neurological: Cranial nerves II-XII grossly intact, Neuro grossly intact, Motor Exam 5/5 strength throughout Psych/Mental Status: Agitated - During spontaneous breathing trial, Restless Vital Signs Temp Pulse Resp BP Pulse Ox 36.9 C 104 H 21 H 116/79 93 03/30/18 06:00 03/30/18 06:54 03/30/18 06:54 03/30/18 06:00 03/30/18 06:54 Oxygen Delivery Method Mechanical Ventilator Weight: 71 kg Body Mass Index (BMI) 23.6 Intake and Output for Last 24 Hours 03/28/18 03/29/18 03/30/18 23:59 23:59 23:59 Intake Total 2629.6 / 2629.6 887 / 887 Output Total 2500 / 2500 750 / 750 Balance 129.6 / 129.6 137 / 137 Labs (Last 48 Hours) 03/29/18 03/29/18 03/29/18 04:50 04:56 04:56 WBC 18.9 H RBC 3.71 L Hgb 11.2 L Hct 34.6 L MCV 93.3 MCH 30.2 MCHC 32.4 RDW 13.6 RDW Differential 44.8 H Plt Count 265 MPV 9.6 Immature Gran % (Auto) Neut % (Auto) Lymph % (Auto) [place] % (Auto) Eos % (Auto) Baso % (Auto) Absolute Neuts (auto) Absolute Lymphs (auto) Total Counted Specimen Type Sample Site pH Bicarbonate Actual POC Total CO2 Base Excess O2 Saturation O2 % ABG pCO2 ABG pO2 Maykel Test Respiration Rate O2 Delivery Device Minute Volume Vent Mode Tidal Volume POC PEEP POC Pressure Suppt Blood Gas Notified Whom Blood Gas Notified Time Sodium Potassium Chloride Carbon Dioxide Anion Gap BUN Creatinine Estim Creat Clear Calc Est GFR (MDRD) Af Amer Est GFR (MDRD) Non-Af BUN/Creatinine Ratio Glucose Lactic Acid 2.0 Calcium Phosphorus Magnesium Total Creatine Kinase Triglycerides MRSA (PCR) Negative POC Glucose 03/29/18 03/29/18 03/29/18 04:56 04:56 05:51 WBC RBC Hgb Hct MCV MCH MCHC RDW RDW Differential Plt Count MPV Immature Gran % (Auto) Neut % (Auto) Lymph % (Auto) [place] % (Auto) Eos % (Auto) Baso % (Auto) Absolute Neuts (auto) Absolute Lymphs (auto) Total Counted Specimen Type Sample Site pH Bicarbonate Actual POC Total CO2 Base Excess O2 Saturation O2 % ABG pCO2 ABG pO2 Maykel Test Respiration Rate O2 Delivery Device Minute Volume Vent Mode Tidal Volume POC PEEP POC Pressure Suppt Blood Gas Notified Whom Blood Gas Notified Time Sodium 142 Potassium 4.6 Chloride 110 H Carbon Dioxide 25.0 Anion Gap 7 BUN 12 Creatinine 0.90 Estim Creat Clear Calc 88.67 Est GFR (MDRD) Af Amer 113 Est GFR (MDRD) Non-Af 93 BUN/Creatinine Ratio 13.4 Glucose 145 H Lactic Acid Calcium 7.0 L Phosphorus 2.6 Magnesium 1.9 Total Creatine Kinase 360 H Triglycerides 73 MRSA (PCR) POC Glucose 150 H 03/29/18 03/29/18 03/29/18 08:35 11:58 14:35 WBC RBC Hgb Hct MCV MCH MCHC RDW RDW Differential Plt Count MPV Immature Gran % (Auto) Neut % (Auto) Lymph % (Auto) [place] % (Auto) Eos % (Auto) Baso % (Auto) Absolute Neuts (auto) Absolute Lymphs (auto) Total Counted Specimen Type ART Sample Site R Brachial pH 7.27 L Bicarbonate Actual 23.5 POC Total CO2 25 Base Excess -3 L O2 Saturation 95 O2 % 40 ABG pCO2 51.6 H ABG pO2 85 Maykel Test NA Respiration Rate 14 O2 Delivery Device Vent Minute Volume 9.00 Vent Mode A-C Tidal Volume 500 POC PEEP 5 POC Pressure Suppt Blood Gas Notified Whom ICU MD Blood Gas Notified Time 825 Sodium Potassium Chloride Carbon Dioxide Anion Gap BUN Creatinine Estim Creat Clear Calc Est GFR (MDRD) Af Amer Est GFR (MDRD) Non-Af BUN/Creatinine Ratio Glucose Lactic Acid Calcium Phosphorus Magnesium Total Creatine Kinase Triglycerides MRSA (PCR) POC Glucose 143 H 126 H 03/29/18 03/29/18 03/30/18 17:32 21:42 00:54 WBC RBC Hgb Hct MCV MCH MCHC RDW RDW Differential Plt Count MPV Immature Gran % (Auto) Neut % (Auto) Lymph % (Auto) [place] % (Auto) Eos % (Auto) Baso % (Auto) Absolute Neuts (auto) Absolute Lymphs (auto) Total Counted Specimen Type Sample Site pH Bicarbonate Actual POC Total CO2 Base Excess O2 Saturation O2 % ABG pCO2 ABG pO2 Maykel Test Respiration Rate O2 Delivery Device Minute Volume Vent Mode Tidal Volume POC PEEP POC Pressure Suppt Blood Gas Notified Whom Blood Gas Notified Time Sodium Potassium Chloride Carbon Dioxide Anion Gap BUN Creatinine Estim Creat Clear Calc Est GFR (MDRD) Af Amer Est GFR (MDRD) Non-Af BUN/Creatinine Ratio Glucose Lactic Acid Calcium Phosphorus Magnesium Total Creatine Kinase Triglycerides MRSA (PCR) POC Glucose 129 H 151 H 127 H 03/30/18 03/30/18 03/30/18 03:58 03:58 05:23 WBC 11.8 H RBC 3.62 L Hgb 10.9 L Hct 34.4 L MCV 95.0 H MCH 30.1 MCHC 31.7 L RDW 14.0 RDW Differential 46.4 H Plt Count 251 MPV 9.7 Immature Gran % (Auto) 0.200 Neut % (Auto) 90.3 H Lymph % (Auto) 3.8 L [place] % (Auto) 5.7 Eos % (Auto) 0.0 Baso % (Auto) 0.0 Absolute Neuts (auto) 10.6 H Absolute Lymphs (auto) 0.45 L Total Counted Not Reportable Specimen Type Sample Site pH Bicarbonate Actual POC Total CO2 Base Excess O2 Saturation O2 % ABG pCO2 ABG pO2 Maykel Test Respiration Rate O2 Delivery Device Minute Volume Vent Mode Tidal Volume POC PEEP POC Pressure Suppt Blood Gas Notified Whom Blood Gas Notified Time Sodium 145 Potassium 4.0 Chloride 109 H Carbon Dioxide 28.0 Anion Gap 8 BUN 11 Creatinine 0.80 Estim Creat Clear Calc 99.75 Est GFR (MDRD) Af Amer 129 Est GFR (MDRD) Non-Af 106 BUN/Creatinine Ratio 13.8 Glucose 130 H Lactic Acid Calcium 7.8 L Phosphorus Magnesium Total Creatine Kinase Triglycerides MRSA (PCR) POC Glucose 134 H 03/30/18 06:47 WBC RBC Hgb Hct MCV MCH MCHC RDW RDW Differential Plt Count MPV Immature Gran % (Auto) Neut % (Auto) Lymph % (Auto) [place] % (Auto) Eos % (Auto) Baso % (Auto) Absolute Neuts (auto) Absolute Lymphs (auto) Total Counted Specimen Type ART Sample Site R Brachial pH 7.31 L Bicarbonate Actual 23.1 POC Total CO2 25 Base Excess -3 L O2 Saturation 93 L O2 % 35 ABG pCO2 46.4 H ABG pO2 75 Maykel Test NA Respiration Rate O2 Delivery Device Vent Minute Volume Vent Mode CPAP PS Tidal Volume POC PEEP 5 POC Pressure Suppt 5 Blood Gas Notified Whom ICU MD Blood Gas Notified Time 640 Sodium Potassium Chloride Carbon Dioxide Anion Gap BUN Creatinine Estim Creat Clear Calc Est GFR (MDRD) Af Amer Est GFR (MDRD) Non-Af BUN/Creatinine Ratio Glucose Lactic Acid Calcium Phosphorus Magnesium Total Creatine Kinase Triglycerides MRSA (PCR) POC Glucose Microbiology 03/29/18 06:40 Sputum, Induced/Lukens Gram Stain - Final Clinical Impression(s) from Imaging Studies KUB X-Ray 03/29/18 06:54 IMPRESSION: OG tube tip in the stomach. Hyperinflation lungs. 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 Continue Solu-Medrol to IV every 6 2. Continue empiric antibiotics pending culture results 3. Wean oxygen as tolerated 4. Spontaneous breathing and awakening trials per protocol 5. Sliding scale insulin 6. Initiate tube feeds per dietitian recommendations IMPRESSIONS: 1. Acute hypercarbic respiratory failure secondary to probable COPD exacerbation Very little history about patient's baseline respiratory status is available at this time. Patient does have significant wheezing and elevated peak airway pressures on presentation. Patient did have a spontaneous breathing trial this morning, but unfortunately had respiratory distress with acidosis on ABG. Sedation will be restarted. Continue Solu-Medrol at every 6 dosing until able to liberate from the ventilator. 2. Hypotension Unclear if this relates to the development of severe sepsis versus medication effect. Patient appears to be improved compared to previous. Echocardiogram shows an EF of 65% with possible localized hypokinesis. Unable to estimate RVSP. Patient does have a history of VA in the past, so it is unclear if this is truly a new finding. We will continue to monitor. 3. Possible anoxic injury Unclear report of down time. Patient currently agitated and not cooperating with a full neurologic exam. Definitely has spinal reflexes and spontaneous respirations. Await extubation for evaluation of subtle effects from anoxia. 4. Hyperglycemia May be related to the use of steroid therapy. Sliding scale insulin for now. Cannot exclude the need for basal insulin after initiation of tube feeds. 5. History of PE/active tobacco abuse/poor background information/reported CAD Complicates care, management, recovery and prognosis. Can use nicotine patch if requested. Okay to continue with baseline Lipitor, Plavix and aspirin therapy for now. TIME: 32 minutes critical care time spent addressing patient's acute respiratory failure, hypotension, review of all data and collaboration with care team (6 AM to 7 AM) Code Visit [id number]: [id number] Critical care first hour
--- NOTE | 2018-03-30 07:30 | RAD_ITS ---
STUDY: X-RAY - ABDOMEN/PELVIS REASON FOR EXAM: Male, 57 years old. Tube placement. TECHNIQUE: Single AP view of the abdomen / pelvis. COMPARISON: March 29, 2018 FINDINGS: Normal visualized lung bases. Feeding tube extends to the distal stomach or duodenum in the right upper quadrant of the abdomen. There are monitoring and support devices. There is endotracheal tube, 3 cm above the luli. There is gaseous distention of bowel loops. There is moderate stool. There is no demonstrated free abdominal air. Normal soft tissue structures. Normal visualized osseous structures. RAD/Abdomen Single View (Portable) IMPRESSION: Feeding tube in the right upper quadrant at the distal stomach or duodenum. Electronically Signed: Adeel Brooks MD at 11:39 EDT , Service support ,
--- NOTE | 2018-03-30 07:30 | NURSING ---
OG reinserted. Pt. tolerated well. X-ray completed.
[2018-03-30] MEDS: LORazepam 2 MG/ML Syringe IV ×2 (07:39→13:57)
[2018-03-30] MEDS: Aspirin 81 MG TAB.CHEW GT (08:41)
[2018-03-30] MEDS: Chlorhexidine 15 ML PO ×2 (08:41→21:33)
[2018-03-30] MEDS: Enoxaparin 40 MG/0.4 ML Syringe SC (08:42)
[2018-03-30] MEDS: Famotidine 20 MG Tablet GT ×2 (08:42→21:33)
[2018-03-30] MEDS: Cyanocobalamin 500 MCG Tablet 1000 MCG GT (08:43)
[2018-03-30] MEDS: CHLORHEXIDINE GLUC 2% CLOTH 1 EACH TOWELETTE TOPICAL (08:45)
[2018-03-30 09:00] LABS: Bedside Glucose 129 mg/dL (70-110)
--- NOTE | 2018-03-30 10:18 | PN_ITS ---
Patient Problems: Active and Suspected Problems (Last Reviewed 03/29/18 @ 04:50 by Godfrey Monte MD) Septic shock (Acute) HCAP (healthcare-associated pneumonia) (Acute) Acute respiratory failure (Acute) Hypoxemia (Acute) Acute on chronic respiratory failure with hypoxemia (Acute) Subjective: Chief complaint: Follow-up after admission for acute hypercapnic respiratory failure and septic shock secondary to probable healthcare associated pneumonia as well as COPD exacerbation. Patient seen and examined. No acute events overnight. Patient remained on mechanical ventilation. This morning, he was able to tolerate 1 hour of spontaneous breathing trial. He is trying to open his eyes upon verbal stimuli. He is afebrile, heart rate stable, blood pressure stable, remains on mechanical ventilation. - Physical Exam General: Alert, - - Intubated, sedated, trying to open eyes on verbal stimuli. HEENT: Atraumatic, PERRLA, EOMI Oral: Moist Mucosa, No Gingival or Mucosal Lesions/ Ulcerations Neck: Supple, No JVD, Negative Carotid Bruits, Trachea Midline, Thyroid Normal Size and Texture Lungs: No rhonchi, No wheeze, Diminished, Wheezes, - - Decreased breath sounds bilateral, occasional wheezes. Cardiovascular: Regular rate, Regular Rhythm, Normal S1, Normal S2, No murmurs, PMI Normal Abdomen: Bowel Sounds Present, Soft, Non Tender, Non-Distended, No Hepato- splenomegaly Extremities: No clubbing, No cyanosis, No edema Skin: No rashes, No breakdown Lymphatic: No Cervical, Supraclavicular, or Inguinal Adenopathy Neurological: - - Cranial nerves are grossly intact, patient is moving all limbs. Psych/Mental Status: - - Unable to assess, patient is intubated. Vital Signs Temp Pulse Resp BP Pulse Ox 98.8 F 88 14 125/82 H 94 03/30/18 07:52 03/30/18 07:52 03/30/18 07:52 03/30/18 07:52 03/30/18 07:52 Oxygen Delivery Method Mechanical Ventilator Weight: 156 lb 8.451 oz Body Mass Index (BMI) 23.6 Intake and Output for Last 24 Hours 03/28/18 03/29/18 03/30/18 23:59 23:59 23:59 Intake Total 2629.6 / 2629.6 887 / 887 Output Total 2500 / 2500 750 / 750 Balance 129.6 / 129.6 137 / 137 Microbiology Past 72 Hours 03/29/18 06:40 Gram Stain - Final Sputum, Induced/Lukens Laboratory Tests Past 24 Hrs 03/30/18 03/30/18 03/30/18 03:58 03:58 06:47 WBC 11.8 H RBC 3.62 L Hgb 10.9 L Hct 34.4 L MCV 95.0 H MCH 30.1 MCHC 31.7 L RDW 14.0 RDW Differential 46.4 H Plt Count 251 MPV 9.7 Immature Gran % (Auto) 0.200 Neut % (Auto) 90.3 H Lymph % (Auto) 3.8 L [place] % (Auto) 5.7 Eos % (Auto) 0.0 Baso % (Auto) 0.0 Absolute Neuts (auto) 10.6 H Absolute Lymphs (auto) 0.45 L Total Counted Not Reportable Specimen Type ART Sample Site R Brachial pH 7.31 L Bicarbonate Actual 23.1 POC Total CO2 25 Base Excess -3 L O2 Saturation 93 L O2 % 35 ABG pCO2 46.4 H ABG pO2 75 Maykel Test NA O2 Delivery Device Vent Vent Mode CPAP PS POC PEEP 5 POC Pressure Suppt 5 Blood Gas Notified Whom ICU Blood Gas Notified Time 640 Sodium 145 Potassium 4.0 Chloride 109 H Carbon Dioxide 28.0 Anion Gap 8 BUN 11 Creatinine 0.80 Estim Creat Clear Calc 99.75 Est GFR (MDRD) Af Amer 129 Est GFR (MDRD) Non-Af 106 BUN/Creatinine Ratio 13.8 Glucose 130 H Calcium 7.8 L POC Glucose 03/30/18 03/30/18 03/30/18 08:45 05:23 00:54 POC Glucose 129 H 134 H 127 H 03/29/18 03/29/18 03/29/18 21:42 17:32 14:35 POC Glucose 151 H 129 H 126 H 03/29/18 11:58 POC Glucose 143 H Medical Necessity - Tobacco Use Smoking Status: Current every day smoker Tobacco Use: Cigarettes Assessment/Plan All Active Problems (Last Reviewed 03/29/18 @ 04:50 by Godfrey Monte MD) Septic shock (Acute) HCAP (healthcare-associated pneumonia) (Acute) Acute respiratory failure (Acute) Hypoxemia (Acute) Acute on chronic respiratory failure with hypoxemia (Acute) Pulmonary embolism (Resolved) This is a 57 years old male patient presented to the emergency room because of respiratory distress, went unresponsive, intubated and started on mechanical ventilation, found to have acute hypercapnic respiratory failure and septic shock by criteria secondary to probable healthcare associate pneumonia and COPD exacerbation. #1 acute hypercapnic respiratory failure: Attributed to COPD exacerbation and probable healthcare associated pneumonia. Patient is on mechanical ventilation. Today, he tolerated spontaneous breathing trial but he was put back on mechanical ventilation because of difficulty with secretions and persistent respiratory acidosis on ABG. ABG from yesterday reviewed, revealed pH of 7.27, PCO2 of 51 and PO2 of 85. His vital signs are stable. He is on IV antibiotics, dilators and IV steroids. Critical care on the case. Plan to keep him on mechanical ventilation for today, continue same treatment. #2 septic shock: On admission, lactic acid was 9 and with IV fluid therapy as well as IV antibiotic therapy, it came down to 2. It is likely due to probable pneumonia and respiratory distress. At this time, patient is maintaining his blood pressure and heart rate. No vasopressors required. His white blood cell count is trending down. Plan to continue same treatment. #3 probable healthcare associated pneumonia: He is on IV vancomycin and Zosyn. Vital signs stabilized, white blood cell count is trending down. Blood, urine and sputum cultures are pending. CTA chest showed no evidence of PE or dissection, revealed mild patchy of disease on the lingula and right middle lobe. Plan to potassium treatment. #4 probable metabolic encephalopathy: Likely due to hypoxia and hypercapnia. Patient has been on sedation. Today, he is trying to open his eyes upon verbal stimuli. He is improving. Able to move all limbs, no obvious focal deficit. #5 CAD status post PTCA and stenting: EKG revealed sinus tachycardia, no acute ischemic changes. Troponin was negative ?2. He is on aspirin, statins and Plavix through the GT tube. #6 COPD: He is on IV steroids, antibiotics and bronchodilators, plan as above. #7 hypertension: Blood pressure stable, he is not on any antihypertensive medications. #8 ischemic cardiomyopathy: Without evidence of acute CHF. 2D echocardiogram revealed ejection fraction 65%. #9 DVT prophylaxis: Subcu Lovenox. This note was generated with [employer] dictation software. It may contain incorrect words, spelling, and punctuation that were not noted in checking the note before signing. Code Visit Inpatient E&M: 91330 Subs Hosp L3
[2018-03-30] MEDS: Propofol 10MG/Ml 1,000 MG/100 ML Bottle 2.115 MG CONT INF ×2 (10:30→23:39)
[2018-03-30 12:00] LABS: Bedside Glucose 121 mg/dL (70-110)
[2018-03-30] MEDS: Vital AF 1.2 Cal Liquid 1,000 ML 65 ML GT (14:01)
[2018-03-30 14:34] LABS: Vancomycin, Trough Level 9.1 ug/mL (5.0-15.0)
[2018-03-30 16:20] LABS: Bedside Glucose 132 mg/dL (70-110)
--- NOTE | 2018-03-30 19:17 | PCM.RX.CS ---
Consult Pharmacy has been consulted to manage selected antiobiotic: Vancomycin Type of Consult: Follow-up Suspected Infection: Pneumonia Prior Doses of Antibiotics Received/Current Regimen: Vancomycin 1000mg IV q12h x3 doses Labs: Sodium 145 mmol/L (136-145) 03/30/18 03:58 Potassium 4.0 mmol/L (3.5-5.1) 03/30/18 03:58 Chloride 109 mmol/L (98-107) H 03/30/18 03:58 Carbon Dioxide 28.0 mmol/L (21.0-32.0) 03/30/18 03:58 Anion Gap 8 (5-15) 03/30/18 03:58 BUN 11 mg/dL (7-18) 03/30/18 03:58 Creatinine 0.80 mg/dL (0.70-1.30) 03/30/18 03:58 Est GFR (MDRD) Af Amer 129 mL/min (>60) 03/30/18 03:58 Est GFR (MDRD) Non-Af 106 mL/min (>60) 03/30/18 03:58 BUN/Creatinine Ratio 13.8 RATIO (10-20) 03/30/18 03:58 Glucose 130 mg/dL (74-106) H 03/30/18 03:58 Vancomycin Trough 9.1 ug/mL (5.0-15.0) 03/30/18 13:45 Microbiology: Microbiology 03/29/18 06:40 Sputum, Induced/Lukens Gram Stain - Final 03/29/18 06:40 Sputum, Induced/Lukens Respiratory Culture - Preliminary Culture exhibits no growth. Weight used for dosin kg Estimated Creatinine Clearance: 99ml/min Goal Trough: 15-20 mcg/mL Pharmacy Plan for Drug Dosing: Pt's trough came back at 9. Recommend increasing dose of Vancomycin to 1500mg IV q12h and checking trough before the 4th dose Pharmacy Service will continue to monitor and adjust dosing as required. Follow-Up Labs: Trough Vancomycin Labs to be done on [date and time ordered]: trough level on 04/01/18 at 1330
[2018-03-30] MEDS: Montelukast 10 MG Tablet GT (21:32)
[2018-03-30] MEDS: Clopidogrel Bisulfate 75 MG Tablet GT (21:32)
[2018-03-30] MEDS: Atorvastatin Calcium 20 MG Tablet GT (21:32)
[2018-03-30] MEDS: Loratadine 10 MG Tablet GT (21:33)
[2018-03-30 21:41] LABS: Bedside Glucose 128 mg/dL (70-110)
[2018-03-31] VITALS (38 sets, daily range): BP systolic 103–161; BP diastolic 68–95; PULSE 75–102; RESP 11–25; TEMP 36.7–37.4; O2SAT 90–100
[2018-03-31 01:56] LABS: Bedside Glucose 144 mg/dL (70-110)
[2018-03-31] MEDS: LORazepam 2 MG/ML Syringe IV (02:13)
[2018-03-31] MEDS: Ipratropium/Albuterol Sulfate 3 ML AMPUL.NEB INHALATION ×6 (03:49→23:01)
[2018-03-31] MEDS: CHLORHEXIDINE GLUC 2% CLOTH 1 EACH TOWELETTE TOPICAL (04:12)
[2018-03-31 04:27] LABS: Anion Gap 5 (5-15); BUN 15 mg/dL (7-18); BUN/Creat Ratio 21.4 RATIO (10-20); Calcium,Total 7.8 mg/dL (8.5-10.1); Chloride 109 mmol/L (98-107); EST Glomerular Filtration Rate 124 mL/min (>60); Est Glom Filt Rate - Afr Amer 150 mL/min (>60); Glucose 141 mg/dL (74-106); Sodium Level 145 mmol/L (136-145)
[2018-03-31 04:30] LABS: Absolute Lymphocyte Count 0.38 X10^3/ul (0.83-4.51); Absolute Neutrophil Count 6.9 X10^3/uL (2.0-7.7); Hematocrit 35.3 % (40-54); Hemoglobin 11.1 g/dl (13.0-16.5); Lymphocyte # 0.38 X10^3/ul (4.0); Lymphocyte % 4.8 % (19-41); Mean Corp Hgb Conc 31.4 g/gl (32-36); Mean Corpuscular Hgb 29.9 pg (27.0-32.0); Mean Corpuscular Volume 95.1 fL (80-94); Mean Platelet Vol. 8.9 fl (6.2-12.0); Monocyte# 0.51 X10^3/uL; Monocyte% 6.5 % (0-10); Neutrophil # 6.93 X10^3/uL (2.7-7.7); Neutrophil % 88.4 % (47-70); Platelet Count 249 K/mm3 (150-450); Red Blood Count 3.71 M/mm3 (4.6-6.2); White Blood Count 7.8 K/mm3 (4.4-11.0)
[2018-03-31 04:36] LABS: Differential Indicated SCAN CRITERIA MET; POSITIVE COUNT NO; POSITIVE DIFFERENTIAL YES; POSITIVE MORPHOLOGY NO
[2018-03-31] MEDS: Piperacil/Tazobactam 3.375 GM/50 ML ML IV (05:40)
--- NOTE | 2018-03-31 05:54 | NURSING ---
Tube feed held for possible extubation.
[2018-03-31 05:56] LABS: Bedside Glucose 143 mg/dL (70-110)
--- NOTE | 2018-03-31 06:21 | PN_ITS ---
Subjective: The patient was seen and examined at the bedside this morning. Events from the last 24 hours have been reviewed. The patient is currently afebrile, hemodynamically stable and maintaining appropriate oxygen saturations with an FiO2 requirement of 30%. The patient has done well on his spontaneous breathing trial this morning. He is alert, cooperative and following commands appropriately. Only a scant amount of oral secretions were noted by the respiratory therapist. Upon extubation, the patient did confirm that he follows with a radiotelephone technical operator through the [facility] system and is currently on Symbicort and Proventil. He denies having been hospitalized within the last 3 months. The patient lives at home by himself. He does continue to smoke approximately 5 cigarettes daily. Objective: The patient's most recent lab work, culture data and imaging studies have all been personally reviewed. Blood culture (1/2 bottles), dated March 28 was preliminarily positive for gram-positive rods. Preliminary urine culture reveals no growth. Preliminary respiratory culture reveals no growth. Surface echocardiogram revealed segmental dysfunction with preserved ejection fraction of 65%. CTA chest, dated March 28, revealed no central PE. However, examination for more distal PE was limited due to motion artifact. Patchy airspace infiltrate was noted within the lingula and right middle lobe. General: - - Currently intubated and mechanically ventilated. Tolerating CPAP mode mechanical ventilation without issue. HEENT: Atraumatic, PERRLA, Normocephalic Oral: No Gingival or Mucosal Lesions/ Ulcerations, - - Endotracheal and OG tubes remain in place. Neck: Supple, No Nodes, Trachea Midline Lungs: No rhonchi, No wheeze, No rales, Diminished Cardiovascular: Regular rate, Regular Rhythm, Normal S1, Normal S2, No murmurs, No rub noted, No Gallop Abdomen: Bowel Sounds Present, Soft, Non Tender, Non-Distended Extremities: No cyanosis, No edema, Clubbing Skin: No breakdown Musculoskeletal: No Tenderness to Palpation of Joints or Extremities, No Muscle Wasting Lymphatic: No Cervical, Supraclavicular, or Inguinal Adenopathy Neurological: - - No focal neurological deficits. Alert and following commands appropriately. Moves all extremities spontaneously. Vital Signs Temp Pulse Resp BP Pulse Ox 98.8 F 96 15 126/80 H 97 03/31/18 06:00 03/31/18 06:00 03/31/18 06:00 03/31/18 06:00 03/31/18 06:00 Oxygen Flow Rate (L/min) 0.5 Oxygen Delivery Method Mechanical Ventilator Weight: 153 lb 14.122 oz Body Mass Index (BMI) 23.6 Intake and Output for Last 24 Hours 03/29/18 03/30/18 03/31/18 23:59 23:59 23:59 Intake Total 2629.6 / 2629.6 2601 / 2601 1388 / 1388 Output Total 2500 / 2500 2800 / 2800 500 / 500 Balance 129.6 / 129.6 -199 / -199 888 / 888 Labs (Last 48 Hours) 03/29/18 03/29/18 03/29/18 04:50 04:56 08:35 WBC RBC Hgb Hct MCV MCH MCHC RDW RDW Differential Plt Count MPV Immature Gran % (Auto) Neut % (Auto) Lymph % (Auto) [place] % (Auto) Eos % (Auto) Baso % (Auto) Absolute Neuts (auto) Absolute Lymphs (auto) Total Counted Specimen Type ART Sample Site R Brachial pH 7.27 L Bicarbonate Actual 23.5 POC Total CO2 25 Base Excess -3 L O2 Saturation 95 O2 % 40 ABG pCO2 51.6 H ABG pO2 85 Maykel Test NA Respiration Rate 14 O2 Delivery Device Vent Minute Volume 9.00 Vent Mode A-C Tidal Volume 500 POC PEEP 5 POC Pressure Suppt Blood Gas Notified Whom ICU MD Blood Gas Notified Time 825 Sodium Potassium Chloride Carbon Dioxide Anion Gap BUN Creatinine Estim Creat Clear Calc Est GFR (MDRD) Af Amer Est GFR (MDRD) Non-Af BUN/Creatinine Ratio Glucose Calcium Total Creatine Kinase 360 H Triglycerides 73 Vancomycin Trough MRSA (PCR) Negative POC Glucose 03/29/18 03/29/18 03/29/18 11:58 14:35 17:32 WBC RBC Hgb Hct MCV MCH MCHC RDW RDW Differential Plt Count MPV Immature Gran % (Auto) Neut % (Auto) Lymph % (Auto) [place] % (Auto) Eos % (Auto) Baso % (Auto) Absolute Neuts (auto) Absolute Lymphs (auto) Total Counted Specimen Type Sample Site pH Bicarbonate Actual POC Total CO2 Base Excess O2 Saturation O2 % ABG pCO2 ABG pO2 Maykel Test Respiration Rate O2 Delivery Device Minute Volume Vent Mode Tidal Volume POC PEEP POC Pressure Suppt Blood Gas Notified Whom Blood Gas Notified Time Sodium Potassium Chloride Carbon Dioxide Anion Gap BUN Creatinine Estim Creat Clear Calc Est GFR (MDRD) Af Amer Est GFR (MDRD) Non-Af BUN/Creatinine Ratio Glucose Calcium Total Creatine Kinase Triglycerides Vancomycin Trough MRSA (PCR) POC Glucose 143 H 126 H 129 H 03/29/18 03/30/18 03/30/18 21:42 00:54 03:58 WBC 11.8 H RBC 3.62 L Hgb 10.9 L Hct 34.4 L MCV 95.0 H MCH 30.1 MCHC 31.7 L RDW 14.0 RDW Differential 46.4 H Plt Count 251 MPV 9.7 Immature Gran % (Auto) 0.200 Neut % (Auto) 90.3 H Lymph % (Auto) 3.8 L [place] % (Auto) 5.7 Eos % (Auto) 0.0 Baso % (Auto) 0.0 Absolute Neuts (auto) 10.6 H Absolute Lymphs (auto) 0.45 L Total Counted Not Reportable Specimen Type Sample Site pH Bicarbonate Actual POC Total CO2 Base Excess O2 Saturation O2 % ABG pCO2 ABG pO2 Maykel Test Respiration Rate O2 Delivery Device Minute Volume Vent Mode Tidal Volume POC PEEP POC Pressure Suppt Blood Gas Notified Whom Blood Gas Notified Time Sodium Potassium Chloride Carbon Dioxide Anion Gap BUN Creatinine Estim Creat Clear Calc Est GFR (MDRD) Af Amer Est GFR (MDRD) Non-Af BUN/Creatinine Ratio Glucose Calcium Total Creatine Kinase Triglycerides Vancomycin Trough MRSA (PCR) POC Glucose 151 H 127 H 03/30/18 03/30/18 03/30/18 03:58 05:23 06:47 WBC RBC Hgb Hct MCV MCH MCHC RDW RDW Differential Plt Count MPV Immature Gran % (Auto) Neut % (Auto) Lymph % (Auto) [place] % (Auto) Eos % (Auto) Baso % (Auto) Absolute Neuts (auto) Absolute Lymphs (auto) Total Counted Specimen Type ART Sample Site R Brachial pH 7.31 L Bicarbonate Actual 23.1 POC Total CO2 25 Base Excess -3 L O2 Saturation 93 L O2 % 35 ABG pCO2 46.4 H ABG pO2 75 Maykel Test NA Respiration Rate O2 Delivery Device Vent Minute Volume Vent Mode CPAP PS Tidal Volume POC PEEP 5 POC Pressure Suppt 5 Blood Gas Notified Whom ICU MD Blood Gas Notified Time 640 Sodium 145 Potassium 4.0 Chloride 109 H Carbon Dioxide 28.0 Anion Gap 8 BUN 11 Creatinine 0.80 Estim Creat Clear Calc 99.75 Est GFR (MDRD) Af Amer 129 Est GFR (MDRD) Non-Af 106 BUN/Creatinine Ratio 13.8 Glucose 130 H Calcium 7.8 L Total Creatine Kinase Triglycerides Vancomycin Trough MRSA (PCR) POC Glucose 134 H 03/30/18 03/30/18 03/30/18 08:45 11:58 13:45 WBC RBC Hgb Hct MCV MCH MCHC RDW RDW Differential Plt Count MPV Immature Gran % (Auto) Neut % (Auto) Lymph % (Auto) [place] % (Auto) Eos % (Auto) Baso % (Auto) Absolute Neuts (auto) Absolute Lymphs (auto) Total Counted Specimen Type Sample Site pH Bicarbonate Actual POC Total CO2 Base Excess O2 Saturation O2 % ABG pCO2 ABG pO2 Maykel Test Respiration Rate O2 Delivery Device Minute Volume Vent Mode Tidal Volume POC PEEP POC Pressure Suppt Blood Gas Notified Whom Blood Gas Notified Time Sodium Potassium Chloride Carbon Dioxide Anion Gap BUN Creatinine Estim Creat Clear Calc Est GFR (MDRD) Af Amer Est GFR (MDRD) Non-Af BUN/Creatinine Ratio Glucose Calcium Total Creatine Kinase Triglycerides Vancomycin Trough 9.1 MRSA (PCR) POC Glucose 129 H 121 H 03/30/18 03/30/18 03/31/18 16:10 21:35 01:38 WBC RBC Hgb Hct MCV MCH MCHC RDW RDW Differential Plt Count MPV Immature Gran % (Auto) Neut % (Auto) Lymph % (Auto) [place] % (Auto) Eos % (Auto) Baso % (Auto) Absolute Neuts (auto) Absolute Lymphs (auto) Total Counted Specimen Type Sample Site pH Bicarbonate Actual POC Total CO2 Base Excess O2 Saturation O2 % ABG pCO2 ABG pO2 Maykel Test Respiration Rate O2 Delivery Device Minute Volume Vent Mode Tidal Volume POC PEEP POC Pressure Suppt Blood Gas Notified Whom Blood Gas Notified Time Sodium Potassium Chloride Carbon Dioxide Anion Gap BUN Creatinine Estim Creat Clear Calc Est GFR (MDRD) Af Amer Est GFR (MDRD) Non-Af BUN/Creatinine Ratio Glucose Calcium Total Creatine Kinase Triglycerides Vancomycin Trough MRSA (PCR) POC Glucose 132 H 128 H 144 H 03/31/18 03/31/18 03/31/18 04:05 04:05 05:38 WBC 7.8 RBC 3.71 L Hgb 11.1 L Hct 35.3 L MCV 95.1 H MCH 29.9 MCHC 31.4 L RDW 14.0 RDW Differential 46.0 H Plt Count 249 MPV 8.9 Immature Gran % (Auto) 0.300 Neut % (Auto) 88.4 H Lymph % (Auto) 4.8 L [place] % (Auto) 6.5 Eos % (Auto) 0.0 Baso % (Auto) 0.0 Absolute Neuts (auto) 6.9 Absolute Lymphs (auto) 0.38 L Total Counted Pending Specimen Type Sample Site pH Bicarbonate Actual POC Total CO2 Base Excess O2 Saturation O2 % ABG pCO2 ABG pO2 Maykel Test Respiration Rate O2 Delivery Device Minute Volume Vent Mode Tidal Volume POC PEEP POC Pressure Suppt Blood Gas Notified Whom Blood Gas Notified Time Sodium 145 Potassium 4.0 Chloride 109 H Carbon Dioxide 31.0 Anion Gap 5 BUN 15 Creatinine 0.70 Estim Creat Clear Calc 114.00 Est GFR (MDRD) Af Amer 150 Est GFR (MDRD) Non-Af 124 BUN/Creatinine Ratio 21.4 H Glucose 141 H Calcium 7.8 L Total Creatine Kinase Triglycerides Vancomycin Trough MRSA (PCR) POC Glucose 143 H Microbiology 03/29/18 06:40 Sputum, Induced/Lukens Gram Stain - Final 03/29/18 06:40 Sputum, Induced/Lukens Respiratory Culture - Preliminary Culture exhibits no growth. Clinical Impression(s) from Imaging Studies Chest X-Ray 03/28/18 00:15 IMPRESSION: Endotracheal tube is in adequate position. Nasogastric tube is malpositioned, looping within the stomach, with its tip in the thoracic esophagus. Tube should be removed and replaced. Chronic interstitial changes with evidence for COPD. No evidence for acute cardiopulmonary pathology. Electronically Signed: Tyler Keene MD at 1:42 EDT , Service support , Chest CTA 03/28/18 23:50 IMPRESSION: 1. Markedly limited exam due to motion artifact and timing of the contrast bolus with no definitive evidence of acute pulmonary embolism. 2. Mild patchy airspace infiltration within the lingula and within the right middle lobe which may represent atelectasis versus infiltrate versus possible aspiration. Electronically Signed: Jossue Conti MD at 1:52 EDT Tel , Service support , Chest X-Ray 03/29/18 03:40 IMPRESSION: 1. Nasogastric tube tip withdrawn into the proximal esophagus. 2. Appropriate positioning of newly placed right internal jugular central venous line. 3. Mild chronic bilateral perihilar interstitial change. Electronically Signed: Jossue Conti MD at 4:14 EDT Tel , Service support , KUB X-Ray 03/29/18 06:54 IMPRESSION: OG tube tip in the stomach. Hyperinflation lungs. Electronically Signed: Eduardo Villarreal DO at 7:57 EDT , Service support , KUB X-Ray 03/30/18 07:30 IMPRESSION: Feeding tube in the right upper quadrant at the distal stomach or duodenum. Electronically Signed: Adeel Brooks MD at 11:39 EDT , Service support , Medical Necessity - Tobacco Use Smoking Status: Current every day smoker Tobacco Use: Cigarettes Assessment/Plan All Active Problems (Last Updated 03/30/18 @ 10:14 by Casper Raymundo MD) Septic shock (Acute) HCAP (healthcare-associated pneumonia) (Acute) Acute respiratory failure (Acute) Hypoxemia (Acute) Acute on chronic respiratory failure with hypoxemia (Acute) Pulmonary embolism (Resolved) RECOMMENDATIONS: 1. High probability for contamination on initial blood cultures. We will plan to repeat today. 2. Continue Zosyn for now. Vancomycin can be discontinued from my perspective. 3. Proceed with a trial of extubation this morning. 4. Once extubated, wean supplemental oxygen to maintain saturations at or above 90%. 5. Encourage aggressive incentive spirometer use and mobilize patient as tolerated. 6. Okay to perform bedside swallow evaluation and advance diet accordingly. 7. Continue scheduled bronchodilators. 8. Continue IV steroids yet today, with plans to transition to prednisone beginning tomorrow. IMPRESSIONS: 1. Acute hypoxemic and hypercarbic respiratory failure, likely secondary to COPD with exacerbation d/t CAP The patient has improved from a respiratory perspective and is currently a candidate for a trial of extubation this morning. Once extubated, wean supplemental oxygen to maintain saturations at or above 90%. The patient will be continued on scheduled bronchodilators along with IV steroids here today. Plan to transition to prednisone beginning tomorrow. In addition, the patient' s antibiotics will be de-escalated. A bedside swallow evaluation will be completed and the patient's diet can be advanced accordingly. Encourage incentive spirometer use and mobilize patient as tolerated. 2. Severe sepsis Although the patient initially had an elevated lactate and 9, this was likely a consequence of high metabolic demand. The patient's hypotension was a consequence of polypharmacy and responded appropriately to IV fluid replacement. No vasopressors were ever required. The patient did have a positive blood culture, which is felt to be a contaminant. Therefore, repeat blood cultures will be sent today. 3. Metabolic encephalopathy Resolved with treatment of the above. The patient's acid-base status has normalized. 4. History of PE/active tobacco abuse/poor background information/reported CAD Complicates care, management, recovery and prognosis. Can use nicotine patch if requested. Okay to continue with baseline Lipitor, Plavix and aspirin therapy for now. TIME: 45 minutes of critical care time, independent of procedures, was spent addressing the patient's acute hypoxemic and hypercarbic respiratory failure, COPD exacerbation secondary to community-acquired pneumonia, severe sepsis, metabolic encephalopathy, review of all data and collaboration with the care team. ([id number]) Code Visit 9xxxx: 52088 Critical care first hour
--- NOTE | 2018-03-31 06:21 | NURSING ---
This RN went out to the nurses desk to document on restraints and came back to room within 2-3minutes and pt. was sitting forward in bed and had pulled out the OG and had his hand on the ETT. This RN took out OG the rest of the way and pt. did have a small emesis. Pt's mouth suctioned. This RN to remain at bedside until the DrMinerva arrives.
--- NOTE | 2018-03-31 06:35 | NURSING ---
Pt. extubated by respiratory therapy to 2L NC. Restraints DC'd. Pt. tolerated well.
[2018-03-31 06:58] LABS: Differential Comment SCANNED
--- NOTE | 2018-03-31 08:23 | NURSING ---
Was asked to see patient for wounds to the right foot. patient resting in bed. was just intubated this am. Pt has no open wounds. there appears to be a dried fungal infection to the plantar foot at the base of the right toes. no signs of infection noted. no drainage. all areas are dry and flaky. could try a Lotrimin ointment if desired, but area appears to be dry and nearly healed.
--- NOTE | 2018-03-31 09:14 | PCM.PROGNOTE ---
Patient Problems: Active and Suspected Problems (Last Updated 03/30/18 @ 10:14 by Casper Raymundo MD) Septic shock (Acute) HCAP (healthcare-associated pneumonia) (Acute) Acute respiratory failure (Acute) Hypoxemia (Acute) Acute on chronic respiratory failure with hypoxemia (Acute) Subjective: Chief complaint: Follow-up after admission for acute hypercapnic respiratory failure and septic shock secondary to probable healthcare associated pneumonia as well as COPD exacerbation. Patient seen and examined. No acute events overnight. He was extubated this morning. At this time, is alert, oriented ?3. He mentioned that his breathing is fine. Denies any chest pain or palpitation. He is afebrile, blood pressure and heart rate are stable, pulse ox is 90% on 2 L. - Physical Exam General: Alert, Oriented x3, Cooperative, - - Minimally short of breath. HEENT: Atraumatic, PERRLA, EOMI, Normocephalic Oral: Moist Mucosa, No Gingival or Mucosal Lesions/ Ulcerations Neck: Supple, No JVD, Negative Carotid Bruits, Trachea Midline, Thyroid Normal Size and Texture Lungs: No rhonchi, No wheeze, No rales, - - Decreased breath sounds bilateral, otherwise clear. Cardiovascular: Regular rate, Regular Rhythm, Normal S1, Normal S2, PMI Normal Abdomen: Bowel Sounds Present, Soft, Non Tender, Non-Distended, No Hepato-splenomegaly Extremities: No clubbing, No cyanosis, No edema Skin: No rashes, No breakdown Lymphatic: No Cervical, Supraclavicular, or Inguinal Adenopathy Neurological: Cranial nerves II-XII grossly intact, Motor Exam 5/5 strength throughout Psych/Mental Status: Normal Affect, Appropriate, Alert and oriented to time, place, person, mood and affect Vital Signs Temp Pulse Resp BP Pulse Ox 98.6 F 90 16 135/80 H 92 03/31/18 07:00 03/31/18 07:46 03/31/18 07:46 03/31/18 07:00 03/31/18 07:46 Oxygen Flow Rate (L/min) 2 Oxygen Delivery Method Nasal Cannula Weight: 153 lb 14.122 oz Body Mass Index (BMI) 23.6 Intake and Output for Last 24 Hours 03/29/18 03/30/18 03/31/18 23:59 23:59 23:59 Intake Total 2629.6 / 2629.6 2601 / 2601 1388 / 1388 Output Total 2500 / 2500 2800 / 2800 500 / 500 Balance 129.6 / 129.6 -199 / -199 888 / 888 Microbiology Past 72 Hours 03/29/18 06:40 Gram Stain - Final Sputum, Induced/Lukens Respiratory Culture - Preliminary Culture exhibits no growth. Laboratory Tests Past 24 Hrs 03/30/18 03/31/18 03/31/18 13:45 04:05 04:05 WBC 7.8 RBC 3.71 L Hgb 11.1 L Hct 35.3 L MCV 95.1 H MCH 29.9 MCHC 31.4 L RDW 14.0 RDW Differential 46.0 H Plt Count 249 MPV 8.9 Immature Gran % (Auto) 0.300 Neut % (Auto) 88.4 H Lymph % (Auto) 4.8 L [place] % (Auto) 6.5 Eos % (Auto) 0.0 Baso % (Auto) 0.0 Absolute Neuts (auto) 6.9 Absolute Lymphs (auto) 0.38 L Total Counted Not Reportable Differential Comment SCANNED Sodium 145 Potassium 4.0 Chloride 109 H Carbon Dioxide 31.0 Anion Gap 5 BUN 15 Creatinine 0.70 Estim Creat Clear Calc 114.00 Est GFR (MDRD) Af Amer 150 Est GFR (MDRD) Non-Af 124 BUN/Creatinine Ratio 21.4 H Glucose 141 H Calcium 7.8 L Vancomycin Trough 9.1 POC Glucose 03/31/18 03/31/18 03/30/18 05:38 01:38 21:35 POC Glucose 143 H 144 H 128 H 03/30/18 03/30/18 16:10 11:58 POC Glucose 132 H 121 H Medical Necessity - Tobacco Use Smoking Status: Current every day smoker Tobacco Use: Cigarettes Assessment/Plan All Active Problems (Last Updated 03/30/18 @ 10:14 by Casper Raymundo MD) Septic shock (Acute) HCAP (healthcare-associated pneumonia) (Acute) Acute respiratory failure (Acute) Hypoxemia (Acute) Acute on chronic respiratory failure with hypoxemia (Acute) Pulmonary embolism (Resolved) This is a 57 years old male patient presented to the emergency room because of respiratory distress, went unresponsive, intubated and started on mechanical ventilation, found to have acute hypercapnic respiratory failure and septic shock by criteria secondary to probable healthcare associate pneumonia and COPD exacerbation. #1 acute hypercapnic respiratory failure: Status post extubation this morning. At this time, respiratory status stable, pulse ox is maintained on 2 L of oxygen. Other vital signs are stable. Patient is awake and oriented ?3. It is attributed to COPD exacerbation and probable healthcare associated pneumonia. Plan to continue same treatment. #2 septic shock: He is on Levaquin. Blood pressure is maintained, he did not require vasopressors. Lactic acid is back to normal. It is likely due to probable pneumonia and respiratory distress. Plan as above. #3 probable healthcare associated pneumonia: Started on oral Levaquin, IV vancomycin and Zosyn discontinued. He has been afebrile, white blood cell count is normal. He is on IV vancomycin and Zosyn. Vital signs stabilized, white blood cell count is trending down. One bottle of blood culture revealed gram-positive rods. Repeat blood culture done today. Urine culture showed no growth. Sputum culture also showed no growth, final is pending. Plan to continue same treatment. #4 acute COPD exacerbation: He is on IV steroids and bronchodilators as well as Levaquin. Status post extubation. Respiratory status stabilized. Plan to continue steroids and bronchodilators as well as Levaquin. #5 probable metabolic encephalopathy: Resolved. Today, patient is alert and oriented ?3. #6 CAD status post PTCA and stenting: EKG revealed sinus tachycardia, no acute ischemic changes. Troponin was negative ?2. Continue aspirin, statins, Plavix. #7 hypertension: Blood pressure stable, he is not on any antihypertensive medications. #8 ischemic cardiomyopathy: Without evidence of acute CHF. 2D echocardiogram revealed ejection fraction 65%. #9 DVT prophylaxis: Subcu Lovenox. This note was generated with [employer]In[employer] dictation software. It may contain incorrect words, spelling, and punctuation that were not noted in checking the note before signing. Code Visit Inpatient E&M: 42849 Subs Hosp L2
--- NOTE | 2018-03-31 09:54 | CASEMGMT ---
See RN CM Assessment Link. DC PLAN: HOME, may need Home Oxygen through [facility]. Home oxygen testing recommended if pt remains on oxygen in hospital. No other needs identified @ this time. Seng ESCUDERO RN ACM
[2018-03-31] MEDS: levoFLOXacin 750 MG Tablet PO (12:32)
[2018-03-31] MEDS: Enoxaparin 40 MG/0.4 ML Syringe SC (12:32)
[2018-03-31] MEDS: Aspirin 81 MG TAB.CHEW PO (12:34)
[2018-03-31 13:30] LABS: Pathologist Review Reviewed
[2018-03-31] MEDS: 0.9% NaCl Peripheral Flush Adult/Peds IV ×3 (18:23→23:37)
[2018-03-31] MEDS: Clopidogrel Bisulfate 75 MG Tablet PO (21:58)
[2018-03-31] MEDS: Loratadine 10 MG Tablet PO (21:59)
[2018-03-31] MEDS: Atorvastatin Calcium 20 MG Tablet PO (21:59)
[2018-03-31] MEDS: Montelukast 10 MG Tablet PO (21:59)
[2018-04-01] VITALS (24 sets, daily range): BP systolic 105–138; BP diastolic 68–89; PULSE 71–95; RESP 14–23; TEMP 36.9–37.4; O2SAT 95–99
--- NOTE | 2018-04-01 01:50 | NURSING ---
At this time, this RN assumed care for this patient. Report received from Jeri Zuniga RN
[2018-04-01] MEDS: Ipratropium/Albuterol Sulfate 3 ML AMPUL.NEB INHALATION ×6 (03:39→22:55)
[2018-04-01] MEDS: levoFLOXacin 750 MG Tablet PO (05:23)
--- NOTE | 2018-04-01 06:53 | PCM.PN.INT ---
Subjective: The patient was seen and examined at the bedside this morning. Events from the last 24 hours have been reviewed. The patient is currently afebrile, hemodynamically stable and maintaining appropriate oxygen saturations on 2 L/min via nasal cannula. The patient has done well from a respiratory perspective following extubation yesterday. He does report interval improvement in his breathing quality. He does not use supplemental oxygen at his baseline. He states that he has been routinely utilizing his incentive spirometer. Objective: The patient's most recent lab work, culture data and imaging studies have all been personally reviewed. Blood culture (1/2 bottles), dated March 28 was preliminarily positive for gram-positive rods. Preliminary urine culture reveals no growth. Preliminary respiratory culture reveals no growth. Surface echocardiogram revealed segmental dysfunction with preserved ejection fraction of 65%. CTA chest, dated March 28, revealed no central PE. However, examination for more distal PE was limited due to motion artifact. Patchy airspace infiltrate was noted within the lingula and right middle lobe. General: Alert, Oriented x3, Cooperative, No apparent distress HEENT: Atraumatic, PERRLA, Normocephalic Oral: No Gingival or Mucosal Lesions/ Ulcerations Neck: Supple, No Nodes, Trachea Midline Lungs: No rhonchi, No wheeze, No rales, Diminished Cardiovascular: Regular rate, Regular Rhythm, Normal S1, Normal S2, No murmurs, No rub noted, No Gallop Abdomen: Bowel Sounds Present, Soft, Non Tender, Non-Distended Extremities: No cyanosis, No edema, Clubbing Skin: No rashes, No breakdown Musculoskeletal: No Tenderness to Palpation of Joints or Extremities, No Muscle Wasting Lymphatic: No Cervical, Supraclavicular, or Inguinal Adenopathy Neurological: Neuro grossly intact Psych/Mental Status: Alert and oriented to time, place, person, mood and affect Vital Signs Temp Pulse Resp BP Pulse Ox 99.3 F H 79 23 H 133/89 H 96 04/01/18 00:00 04/01/18 06:00 04/01/18 06:00 04/01/18 06:04/01/18 06:00 Oxygen Flow Rate (L/min) 2 Oxygen Delivery Method Nasal Cannula Weight: 147 lb 4.301 oz Body Mass Index (BMI) 23.6 Intake and Output for Last 24 Hours 03/30/18 03/31/18 04/01/18 23:59 23:59 23:59 Intake Total 2601 / 2601 2808 / 2808 450 / 450 Output Total 2800 / 2800 5205 / 5205 1900 / 1900 Balance -199 / -199 -2397 / -2397 -1450 / -1450 Labs (Last 48 Hours) 03/30/18 03/30/18 03/30/18 08:45 11:58 13:45 WBC RBC Hgb Hct MCV MCH MCHC RDW RDW Differential Plt Count MPV Immature Gran % (Auto) Neut % (Auto) Lymph % (Auto) [place] % (Auto) Eos % (Auto) Baso % (Auto) Absolute Neuts (auto) Absolute Lymphs (auto) Total Counted Differential Comment Sodium Potassium Chloride Carbon Dioxide Anion Gap BUN Creatinine Estim Creat Clear Calc Est GFR (MDRD) Af Amer Est GFR (MDRD) Non-Af BUN/Creatinine Ratio Glucose Calcium Vancomycin Trough 9.1 POC Glucose 129 H 121 H 03/30/18 03/30/18 03/31/18 16:10 21:35 01:38 WBC RBC Hgb Hct MCV MCH MCHC RDW RDW Differential Plt Count MPV Immature Gran % (Auto) Neut % (Auto) Lymph % (Auto) [place] % (Auto) Eos % (Auto) Baso % (Auto) Absolute Neuts (auto) Absolute Lymphs (auto) Total Counted Differential Comment Sodium Potassium Chloride Carbon Dioxide Anion Gap BUN Creatinine Estim Creat Clear Calc Est GFR (MDRD) Af Amer Est GFR (MDRD) Non-Af BUN/Creatinine Ratio Glucose Calcium Vancomycin Trough POC Glucose 132 H 128 H 144 H 03/31/18 03/31/18 03/31/18 04:05 04:05 05:38 WBC 7.8 RBC 3.71 L Hgb 11.1 L Hct 35.3 L MCV 95.1 H MCH 29.9 MCHC 31.4 L RDW 14.0 RDW Differential 46.0 H Plt Count 249 MPV 8.9 Immature Gran % (Auto) 0.300 Neut % (Auto) 88.4 H Lymph % (Auto) 4.8 L [place] % (Auto) 6.5 Eos % (Auto) 0.0 Baso % (Auto) 0.0 Absolute Neuts (auto) 6.9 Absolute Lymphs (auto) 0.38 L Total Counted Not Reportable Differential Comment SCANNED Sodium 145 Potassium 4.0 Chloride 109 H Carbon Dioxide 31.0 Anion Gap 5 BUN 15 Creatinine 0.70 Estim Creat Clear Calc 114.00 Est GFR (MDRD) Af Amer 150 Est GFR (MDRD) Non-Af 124 BUN/Creatinine Ratio 21.4 H Glucose 141 H Calcium 7.8 L Vancomycin Trough POC Glucose 143 H Microbiology 03/31/18 10:00 Mucosa - Nasopharyngeal Respiratory Panel (PCR) - Preliminary 03/29/18 06:40 Sputum, Induced/Lukens Gram Stain - Final 03/29/18 06:40 Sputum, Induced/Lukens Respiratory Culture - Preliminary Appears to be normal respiratory chente. Further studies to follow. Clinical Impression(s) from Imaging Studies Chest X-Ray 03/28/18 00:15 IMPRESSION: Endotracheal tube is in adequate position. Nasogastric tube is malpositioned, looping within the stomach, with its tip in the thoracic esophagus. Tube should be removed and replaced. Chronic interstitial changes with evidence for COPD. No evidence for acute cardiopulmonary pathology. Electronically Signed: Tyler Keene MD at 1:42 EDT , Service support , Chest CTA 03/28/18 23:50 IMPRESSION: 1. Markedly limited exam due to motion artifact and timing of the contrast bolus with no definitive evidence of acute pulmonary embolism. 2. Mild patchy airspace infiltration within the lingula and within the right middle lobe which may represent atelectasis versus infiltrate versus possible aspiration. Electronically Signed: Jossue Conti MD at 1:52 EDT Tel , Service support , Chest X-Ray 03/29/18 03:40 IMPRESSION: 1. Nasogastric tube tip withdrawn into the proximal esophagus. 2. Appropriate positioning of newly placed right internal jugular central venous line. 3. Mild chronic bilateral perihilar interstitial change. Electronically Signed: Jossue Conti MD at 4:14 EDT Tel , Service support , KUB X-Ray 03/29/18 06:54 IMPRESSION: OG tube tip in the stomach. Hyperinflation lungs. Electronically Signed: Eduardo Villarreal DO at 7:57 EDT , Service support , KUB X-Ray 03/30/18 07:30 IMPRESSION: Feeding tube in the right upper quadrant at the distal stomach or duodenum. Electronically Signed: Adeel Brooks MD at 11:39 EDT , Service support , Medical Necessity - Tobacco Use Smoking Status: Current every day smoker Tobacco Use: Cigarettes Assessment/Plan All Active Problems (Last Updated 03/30/18 @ 10:14 by Casper Raymundo MD) Septic shock (Acute) HCAP (healthcare-associated pneumonia) (Acute) Acute respiratory failure (Acute) Hypoxemia (Acute) Acute on chronic respiratory failure with hypoxemia (Acute) Pulmonary embolism (Resolved) RECOMMENDATIONS: 1. Transition to Levaquin by mouth to complete a 7 day treatment course. 2. Continue to wean supplemental oxygen as tolerated. 3. Encourage aggressive incentive spirometer use and mobilize patient as tolerated. 4. Continue scheduled bronchodilators. The patient will be transitioned to prednisone this morning. 5. Continue Lovenox for DVT prophylaxis IMPRESSIONS: 1. Acute hypoxemic and hypercarbic respiratory failure, likely secondary to COPD with exacerbation d/t CAP The patient has done well from a respiratory perspective following extubation. He is currently maintaining oxygen saturations on 2 L/min. We will plan to continue to wean supplemental oxygen as tolerated. Continue to encourage incentive spirometer use and mobilize patient has tolerated. Recommend completing a 7 day treatment course with Levaquin. The patient will be continued on scheduled bronchodilators. IV steroids have been transitioned to prednisone, with plans for a taper at discharge. We will plan to perform a walking oximetry study prior to consideration for discharge from the hospital. Smoking cessation is advisable. The patient should ideally follow up with his primary pulmonary provider through [facility] within 2 weeks of his discharge from the hospital. 2. Severe sepsis Although the patient initially had an elevated lactate and 9, this was likely a consequence of high metabolic demand. The patient's hypotension was a consequence of polypharmacy and responded appropriately to IV fluid replacement. No vasopressors were ever required. The patient did have a positive blood culture, which is felt to be a contaminant. Repeat blood cultures were sent have shown no growth to date. As above, the patient will complete a 7 day treatment course of antibiotics. 3. Metabolic encephalopathy Resolved with treatment of the above. The patient's acid-base status has normalized. 4. History of PE/active tobacco abuse/poor background information/reported CAD Complicates care, management, recovery and prognosis. Can use nicotine patch if requested. Okay to continue with baseline Lipitor, Plavix and aspirin therapy for now. This note was generated with [employer] dictation software. It may contain incorrect words, spelling, and punctuation that were not noted in checking the note before signing. DISPOSITION: The patient is medically stable for transfer out of the intensive care unit. Code Visit Inpatient E&M: 91121 Subs Hosp L3
[2018-04-01] MEDS: predniSONE 20 MG Tablet 40 MG PO (08:37)
[2018-04-01] MEDS: Aspirin 81 MG TAB.CHEW PO (08:37)
--- NOTE | 2018-04-01 08:43 | PN_ITS ---
Patient Problems: Active and Suspected Problems (Last Updated 03/30/18 @ 10:14 by Casper Raymundo MD) Septic shock (Acute) HCAP (healthcare-associated pneumonia) (Acute) Acute respiratory failure (Acute) Hypoxemia (Acute) Acute on chronic respiratory failure with hypoxemia (Acute) Subjective: Chief complaint: Follow-up after admission for acute hypercapnic respiratory failure and septic shock secondary to probable healthcare associated pneumonia as well as COPD exacerbation. Patient seen and examined. No acute events overnight. Today, he feels fine, no specific complaints. Hemodynamically stable. His vital signs are stable, pulse ox is maintained at 96% on 2 L. - Physical Exam General: Alert, Oriented x3, Cooperative, No apparent distress HEENT: Atraumatic, EOMI, Normocephalic Oral: Moist Mucosa, No Gingival or Mucosal Lesions/ Ulcerations Neck: Supple, No JVD, Negative Carotid Bruits, Trachea Midline, Thyroid Normal Size and Texture Lungs: Clear to auscultation, No rhonchi, No wheeze, No rales, Diminished, - Cardiovascular: Regular rate, Regular Rhythm, Normal S1, Normal S2, No murmurs, PMI Normal Abdomen: Bowel Sounds Present, Soft, Non Tender, Non-Distended, No Hepato- splenomegaly Extremities: No clubbing, No cyanosis, No edema Skin: No rashes, No breakdown Lymphatic: No Cervical, Supraclavicular, or Inguinal Adenopathy Neurological: Cranial nerves II-XII grossly intact, Motor Exam 5/5 strength throughout Psych/Mental Status: Normal Affect, Appropriate, Alert and oriented to time, place, person, mood and affect Vital Signs Temp Pulse Resp BP Pulse Ox 99.3 F H 73 19 H 133/89 H 96 04/01/18 00:00 04/01/18 07:58 04/01/18 06:44 04/01/18 06:00 04/01/18 06:44 Oxygen Flow Rate (L/min) 2 Oxygen Delivery Method Nasal Cannula Weight: 147 lb 4.301 oz Body Mass Index (BMI) 23.6 Intake and Output for Last 24 Hours 03/30/18 03/31/18 04/01/18 23:59 23:59 23:59 Intake Total 2601 / 2601 2808 / 2808 450 / 450 Output Total 2800 / 2800 5205 / 5205 1900 / 1900 Balance -199 / -199 -2397 / -2397 -1450 / -1450 Microbiology Past 72 Hours 03/29/18 06:40 Gram Stain - Final Sputum, Induced/Lukens Respiratory Culture - Final 03/31/18 10:00 Respiratory Panel (PCR) - Final Mucosa - Nasopharyngeal Medical Necessity - Tobacco Use Smoking Status: Current every day smoker Tobacco Use: Cigarettes Assessment/Plan All Active Problems (Last Updated 03/30/18 @ 10:14 by Casper Raymundo MD) Septic shock (Acute) HCAP (healthcare-associated pneumonia) (Acute) Acute respiratory failure (Acute) Hypoxemia (Acute) Acute on chronic respiratory failure with hypoxemia (Acute) Pulmonary embolism (Resolved) This is a 57 years old male patient presented to the emergency room because of respiratory distress, went unresponsive, intubated and started on mechanical ventilation, found to have acute hypercapnic respiratory failure and septic shock by criteria secondary to probable healthcare associate pneumonia and COPD exacerbation. #1 acute hypercapnic respiratory failure: Status post extubation yesterday morning. Respiratory status remains stable, hemodynamically stable, pulse ox is maintained on 2 L. Other vital signs are stable. Patient is awake and oriented ?3. It is attributed to COPD exacerbation and probable healthcare associated pneumonia. Plan to transfer to PCU. #2 septic shock: He is on Levaquin. Blood pressure and heart rate are stable. Lactic acid is back to normal. It is likely due to probable pneumonia and respiratory distress. Plan as above. #3 probable healthcare associated pneumonia: He is on oral Levaquin. He has been afebrile, white blood cell count is normal. One bottle of blood culture revealed gram-positive rods, another bottle blood cultures came back negative and no growth in 48 hours. Repeat blood culture done yesterday, pending. Urine culture showed no growth. Sputum culture also showed rare mixed normal respiratory chente. Plan to continue same treatment, follow blood culture #4 acute COPD exacerbation: Started on prednisone today, continued on bronchodilators as well as Levaquin. Status post extubation. Respiratory status stabilized. #5 probable metabolic encephalopathy: Resolved. Today, patient is alert and oriented ?3. #6 CAD status post PTCA and stenting: EKG revealed sinus tachycardia, no acute ischemic changes. Troponin was negative ?2. Continue aspirin, statins, Plavix. #7 hypertension: Blood pressure stable, he is not on any antihypertensive medications. #8 ischemic cardiomyopathy: Without evidence of acute CHF. 2D echocardiogram revealed ejection fraction 65%. #9 DVT prophylaxis: Subcu Lovenox. This note was generated with [employer] dictation software. It may contain incorrect words, spelling, and punctuation that were not noted in checking the note before signing. Code Visit Inpatient E&M: 34941 Subs Hosp L2
--- NOTE | 2018-04-01 10:01 | CASEMGMT ---
Social Work Received a referral from MARION ADMON that pt would like to complete advance directives. SW met with pt, dgt Clarice and cousin aYny and explained what advance directives are. Pt does state that he would like to complete both a living will and health care POA. Documents explained and completed with pt. Originals given to pt and copies placed on chart and instructions given to pt to give copies to family and PCP. No further SW needs at this time. RADHA Spencer
[2018-04-01] MEDS: Enoxaparin 40 MG/0.4 ML Syringe SC (10:04)
[2018-04-01] MEDS: Atorvastatin Calcium 20 MG Tablet PO (22:18)
[2018-04-01] MEDS: Loratadine 10 MG Tablet PO (22:18)
[2018-04-01] MEDS: Montelukast 10 MG Tablet PO (22:18)
[2018-04-01] MEDS: Clopidogrel Bisulfate 75 MG Tablet PO (22:18)
[2018-04-02] VITALS (8 sets, daily range): BP systolic 95–111; BP diastolic 59–82; PULSE 62–89; RESP 16–20; TEMP 36.4–36.5; O2SAT 95–96
[2018-04-02] MEDS: Ipratropium/Albuterol Sulfate 3 ML AMPUL.NEB INHALATION ×2 (02:49→06:44)
[2018-04-02] MEDS: levoFLOXacin 750 MG Tablet PO (05:26)
[2018-04-02] MEDS: predniSONE 20 MG Tablet 40 MG PO (08:46)
[2018-04-02] MEDS: Aspirin 81 MG TAB.CHEW PO (08:46)
--- NOTE | 2018-04-02 09:00 | DCINST_ITS ---
- Discharge Diagnoses Current Active Problems: Current Active and Chronic Problems (Last Updated 03/30/18 @ 10:14 by Casper Raymundo MD) Septic shock (Acute) HCAP (healthcare-associated pneumonia) (Acute) Acute respiratory failure (Acute) Hypoxemia (Acute) Acute on chronic respiratory failure with hypoxemia (Acute) You will use the following diet at home:: Regular Your food should be the consistency of: Regular Discharge Activity: Return to Normal Activity Weight Bearing Status: Full weight bearing Call your doctor if you observe: Fever of 101 or Higher, Shortness of breath, Dizziness, Fainting spells, Chest pain, Increased palpitations (irregular heartbeat), Uncontrolled pain Instructions: Discharge Instructions: COPD, Discharge Instructions for Pneumonia Allergies/Adverse Reactions: Allergies latex Allergy (Verified 03/28/18 23:40) Rash varenicline tartrate [From Chantix] Allergy (Verified 03/28/18 23:40) Hives aspirin Adverse Reaction (Verified 03/28/18 23:40) Upset Stomach Medications to take at Discharge Albuterol Inhaler [Ventolin Hfa] 2 puff INHALATION Q2H PRN 06/16/13 Budesonide/Formoterol 160/4.5 [Symbicort 160/4.5 Mcg Inhaler (SP)] 2 puff INHALATION BID PRN 06/16/13 Clopidogrel Bisulfate [Plavix] 75 mg PO QHS 06/16/13 Levocetirizine Dihydrochloride [Xyzal] 5 mg PO DAILY 07/12/15 Cholecalciferol (VIT D3) [Vitamin D3] 2,000 units PO QHS 03/25/16 Montelukast Sodium [Singulair] 10 mg PO QHS 03/25/16 Omeprazole [Prilosec] 40 mg PO DAILY 05/13/17 Ipratropium/Albuterol Sulfate [Duoneb] 3 ml INHALATION Q4H.RT 05/15/17 Aspirin [Aspirin, Baby] 81 mg PO DAILY@0800 06/20/17 cyanocobalamin (vit B-12) 1,000 mcg tablet 1,000 mcg PO QDAY 10/15/17 Atorvastatin Calcium [Lipitor] 20 mg PO DAILY 12/14/17 Cetirizine HCl [Zyrtec] 10 mg PO QHS 12/14/17 Prednisone 10 mg PO DAILY #30 tab 04/02/18 levoFLOXacin tablet [Levaquin tablet] 750 mg PO DAILY@0600 #7 tab 04/02/18 The following prescriptions were given: levoFLOXacin tablet [Levaquin tablet] 750 mg PO DAILY@0600 #7 tab Prednisone 10 mg PO DAILY #30 tab Primary Care Physician: Alexey Mayberry MD [Primary Care Provider] - Please follow up with your Primary Care Physician in: 2 weeks. Test Results: Test results from this visit will be discussed in further detail at your follow- up appointment, if applicable.
--- NOTE | 2018-04-02 09:50 | PN_ITS ---
Patient Problems: Active and Suspected Problems (Last Updated 03/30/18 @ 10:14 by Casper Raymundo MD) Septic shock (Acute) HCAP (healthcare-associated pneumonia) (Acute) Acute respiratory failure (Acute) Hypoxemia (Acute) Acute on chronic respiratory failure with hypoxemia (Acute) Subjective: The patient was seen and examined at the bedside this morning. Events from the last 24 hours have been reviewed. The patient is currently afebrile, hemodynamically stable and maintaining appropriate oxygen saturations on room air. The patient feels that his breathing quality has nearly returned back to baseline. There are tentative plans for discharge home today. Objective: The patient's most recent lab work, culture data and imaging studies have all been personally reviewed. Blood culture (1/2 bottles), dated March 28 was preliminarily positive for gram-positive rods. Preliminary urine culture reveals no growth. Preliminary respiratory culture reveals no growth. Surface echocardiogram revealed segmental dysfunction with preserved ejection fraction of 65%. CTA chest, dated March 28, revealed no central PE. However, examination for more distal PE was limited due to motion artifact. Patchy airspace infiltrate was noted within the lingula and right middle lobe. - Physical Exam General: Alert, Oriented x3, Cooperative, No apparent distress HEENT: Atraumatic, PERRLA, Normocephalic Oral: No Gingival or Mucosal Lesions/ Ulcerations Neck: Supple, No Nodes, Trachea Midline Lungs: No rhonchi, No wheeze, No rales, Diminished Cardiovascular: Regular rate, Regular Rhythm, Normal S1, Normal S2, No murmurs Abdomen: Bowel Sounds Present, Soft, Non Tender, Non-Distended Extremities: No cyanosis, No edema, Clubbing Skin: No breakdown Musculoskeletal: No Tenderness to Palpation of Joints or Extremities Lymphatic: No Cervical, Supraclavicular, or Inguinal Adenopathy Neurological: Neuro grossly intact Psych/Mental Status: Normal Affect, Appropriate Vital Signs Temp Pulse Resp BP Pulse Ox 97.7 F L 80 18 95/59 L 95 04/02/18 08:50 04/02/18 08:50 04/02/18 08:50 04/02/18 08:50 04/02/18 08:50 Oxygen Flow Rate (L/min) 2 Oxygen Delivery Method Room Air Weight: 144 lb 2.917 oz Body Mass Index (BMI) 23.6 Intake and Output for Last 24 Hours 03/31/18 04/01/18 04/02/18 23:59 23:59 23:59 Intake Total 2808 / 2808 1370 / 1370 500 / 500 Output Total 5205 / 5205 3100 / 3100 Balance -2397 / -2397 -1730 / -1730 500 / 500 Microbiology Past 72 Hours 03/29/18 06:40 Gram Stain - Final Sputum, Induced/Lukens Respiratory Culture - Final 03/31/18 10:00 Respiratory Panel (PCR) - Final Mucosa - Nasopharyngeal Labs (Last 48 Hours) 03/28/18 23:40 Diff Path Review Reviewed Microbiology 03/28/18 23:40 Blood Culture (Wb) - Anticubital Left Blood Culture - Preliminary 03/29/18 06:40 Sputum, Induced/[place]ukens Gram Stain - Final 03/29/18 06:40 Sputum, Induced/[place]ukens Respiratory Culture - Final 03/31/18 10:00 Mucosa - Nasopharyngeal Respiratory Panel (PCR) - Final 03/29/18 00:05 Blood Culture (Wb) - Left Wrist Blood Culture - Preliminary No growth in 48 hours. 03/29/18 00:10 Urine Catheter - Catheter Urine Culture - Final Culture exhibits no growth. Clinical Impression(s) from Imaging Studies Chest X-Ray 03/28/18 00:15 IMPRESSION: Endotracheal tube is in adequate position. Nasogastric tube is malpositioned, looping within the stomach, with its tip in the thoracic esophagus. Tube should be removed and replaced. Chronic interstitial changes with evidence for COPD. No evidence for acute cardiopulmonary pathology. Electronically Signed: Tyler Keene MD at 1:42 EDT , Service support , Chest CTA 03/28/18 23:50 IMPRESSION: 1. Markedly limited exam due to motion artifact and timing of the contrast bolus with no definitive evidence of acute pulmonary embolism. 2. Mild patchy airspace infiltration within the lingula and within the right middle lobe which may represent atelectasis versus infiltrate versus possible aspiration. Electronically Signed: Jossue Conti MD at 1:52 EDT Tel , Service support , Chest X-Ray 03/29/18 03:40 IMPRESSION: 1. Nasogastric tube tip withdrawn into the proximal esophagus. 2. Appropriate positioning of newly placed right internal jugular central venous line. 3. Mild chronic bilateral perihilar interstitial change. Electronically Signed: Jossue Conti MD at 4:14 EDT Tel , Service support , KUB X-Ray 03/29/18 06:54 IMPRESSION: OG tube tip in the stomach. Hyperinflation lungs. Electronically Signed: Eduardo Villarreal DO at 7:57 EDT , Service support , KUB X-Ray 03/30/18 07:30 IMPRESSION: Feeding tube in the right upper quadrant at the distal stomach or duodenum. Electronically Signed: Adeel Brooks MD at 11:39 EDT , Service support , Medical Necessity - Tobacco Use Smoking Status: Current every day smoker Tobacco Use: Cigarettes Assessment/Plan All Active Problems (Last Updated 03/30/18 @ 10:14 by Casper Raymundo MD) Septic shock (Acute) HCAP (healthcare-associated pneumonia) (Acute) Acute respiratory failure (Acute) Hypoxemia (Acute) Acute on chronic respiratory failure with hypoxemia (Acute) Pulmonary embolism (Resolved) RECOMMENDATIONS: 1. Transition to Levaquin by mouth to complete a 7 day treatment course. 2. Perform walking oximetry to ensure adequacy of oxygenation prior to consideration for discharge. 3. Encourage aggressive incentive spirometer use and mobilize patient as tolerated. 4. Continue scheduled bronchodilators. Continue prednisone with plans for taper at discharge. 5. Continue Lovenox for DVT prophylaxis 6. Recommend follow-up with primary auto machinist within 2 weeks of his discharge from the hospital. IMPRESSIONS: 1. Acute hypoxemic and hypercarbic respiratory failure, likely secondary to COPD with exacerbation d/t CAP The patient has done well from a respiratory perspective following extubation. He has been weaned to room air. Continue to encourage incentive spirometer use and mobilize patient has tolerated. Recommend completing a 7 day treatment course with Levaquin. The patient will be continued on scheduled bronchodilators. IV steroids have been transitioned to prednisone, with plans for a taper at discharge. We will plan to perform a walking oximetry study prior to consideration for discharge from the hospital. Smoking cessation is advisable. The patient should ideally follow up with his primary pulmonary provider through the [facility] system within 2 weeks of his discharge from the hospital. 2. Severe sepsis Although the patient initially had an elevated lactate and 9, this was likely a consequence of high metabolic demand. The patient's hypotension was a consequence of polypharmacy and responded appropriately to IV fluid replacement. No vasopressors were ever required. The patient did have a positive blood culture, which is felt to be a contaminant. Repeat blood cultures were sent have shown no growth to date. As above, the patient will complete a 7 day treatment course of antibiotics. 3. Metabolic encephalopathy Resolved with treatment of the above. The patient's acid-base status has normalized. 4. History of PE/active tobacco abuse/poor background information/reported CAD Complicates care, management, recovery and prognosis. Can use nicotine patch if requested. Okay to continue with baseline Lipitor, Plavix and aspirin therapy for now. This note was generated with [employer] dictation software. It may contain incorrect words, spelling, and punctuation that were not noted in checking the note before signing. Code Visit Inpatient E&M: 25238 Subs Hosp L2
--- NOTE | 2018-04-02 12:36 | PCM.DC.SUM ---
Discharge Date and Diagnosis Date of Admission: 03/29/18 Date of Discharge: 04/02/18 - Primary Discharge Diagnosis #1 acute hypercapnic respiratory failure secondary to COPD exacerbation and probable associated pneumonia. #2 septic shock. #3 probable healthcare associated pneumonia. #4 acute COPD exacerbation. #5 probable metabolic encephalopathy. 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 Nasogastric tube is malpositioned, looping within the stomach, with its tip in the thoracic esophagus. Tube should be removed and replaced. Chronic interstitial changes with evidence for COPD. No evidence for acute cardiopulmonary pathology. Electronically Signed: Tyler Keene MD at 1:42 EDT , Service support , Chest CTA 03/28/18 23:50 IMPRESSION: 1. Markedly limited exam due to motion artifact and timing of the contrast bolus with no definitive evidence of acute pulmonary embolism. 2. Mild patchy airspace infiltration within the lingula and within the right middle lobe which may represent atelectasis versus infiltrate versus possible aspiration. Electronically Signed: Jossue Conti MD at 1:52 EDT Tel , Service support , Chest X-Ray 03/29/18 03:40 IMPRESSION: 1. Nasogastric tube tip withdrawn into the proximal esophagus. 2. Appropriate positioning of newly placed right internal jugular central venous line. 3. Mild chronic bilateral perihilar interstitial change. Electronically Signed: Jossue Conti MD at 4:14 EDT Tel , Service support , KUB X-Ray 03/29/18 06:54 IMPRESSION: OG tube tip in the stomach. Hyperinflation lungs. Electronically Signed: Eduardo Villarreal DO at 7:57 EDT , Service support , KUB X-Ray 03/30/18 07:30 IMPRESSION: Feeding tube in the right upper quadrant at the distal stomach or duodenum. Electronically Signed: Adeel Brooks MD at 11:39 EDT , Service support , Dr. Weems, critical care. Operations: None Procedures: 2-D Echocardiogram, EKG, Intubation Summary of Care Provided: Patient seen and examined on the day of discharge and appeared to be stable to be discharged home. He denies any symptoms. He has no more shortness of breath. Reported mild dry cough. His vital signs are stable. He has been off oxygen and his pulse ox is maintained. - Physical Exam General: Alert, Oriented x3, Cooperative, No apparent distress. HEENT: Atraumatic, PERRLA, EOMI. Neck: Supple, No JVD, Negative Carotid Bruits, Trachea Midline, Thyroid Normal. Lungs: Diminished breath sounds bilateral, otherwise clear, No rhonchi, No wheeze, No rales. Cardiovascular: Regular rate, Regular Rhythm, Normal S1, Normal S2, PMI Normal. Abdomen: Bowel Sounds Present, Soft, Non Tender, Non-Distended, No Hepato-splenomegaly. Extremities: No clubbing, No cyanosis, No edema Skin: No rashes, No breakdown Neurological: Neuro grossly intact Vital Signs are stable. Hospital course: This is a 57 years old male patient presented to the emergency room because of respiratory distress, went unresponsive, intubated and started on mechanical ventilation, found to have acute hypercapnic respiratory failure and septic shock by criteria secondary to probable healthcare associate pneumonia and COPD exacerbation. #1 acute hypercapnic respiratory failure/respiratory arrest: Patient was intubated, mechanically ventilated and was admitted to intensive care unit. He was treated with IV antibiotics, IV steroids and bronchodilators. This acute respiratory failure attributed to acute COPD exacerbation and probable pneumonia. Patient remains on mechanical ventilation for 3 days and then extubated uneventfully. After extubation, patient did very well and was able to take him off oxygen and his pulse ox was maintained on room air. This acute respiratory failure resolved. #2 septic shock: Secondary to pneumonia and acute respiratory failure. Patient was treated with IV fluids and IV antibiotics. Lactic acid on admission was 9 and with IV fluid therapy and IV antibiotics, it came down to 2 which is normal. Urine culture showed no growth. Sputum culture showed mixed normal respiratory chente. Respiratory panel for viruses was negative. One bottle of blood culture revealed gram-positive rods which is possibly a skin contamination. Another 3 bottles of blood culture showed no growth in 48 hours. After treatment, patient's vital signs stabilized, became normotensive, heart rate stabilized as well as pulse ox. Patient discharged home on Levaquin. #3 probable healthcare associated pneumonia: Initially treated with IV Zosyn and vancomycin. 1 bottle of blood culture revealed gram-positive rods which is a skin contaminant, another bottle blood cultures came back negative and no growth in 48 hours. Repeat blood cultures with no growth in 48 hours. Bacteremia without. Patient discharged home in a stable medical condition, discharged on Levaquin to complete 10 days to complete. #4 acute COPD exacerbation: Required intubation, mechanical ventilation, treated with IV steroids, IV antibiotics and bronchodilators. After extubation, patient did very well, was able to come off oxygen and he was able to maintain his pulse ox on room air. Patient was discharged on tapering course of prednisone, discharged on Levaquin as above, continued on DuoNeb, Symbicort, albuterol inhaler, recommended from PCP and his pulmonary as outpatient. #5 probable metabolic encephalopathy: Resolved. After extubation, patient remained alert and oriented ?3. Patient discharged home in a stable medical condition, discharged on Levaquin, tapering course of prednisone, continued on his chronic home medications including DuoNeb and Symbicort, recommended follow-up with PCP in 2 weeks and follow-up with his network engineer administrator as outpatient. This note was generated with [employer] software. It may contain incorrect words, spelling, and punctuation that were not noted in checking the note before signing. Discharge Activity: Return to Normal Activity Weight Bearing Status: Full weight bearing Call your doctor if you observe: Fever of 101 or Higher, Shortness of breath, Dizziness, Fainting spells, Chest pain, Increased palpitations (irregular heartbeat), Uncontrolled pain Home Medications: Medications to take at Discharge Albuterol Inhaler [Ventolin Hfa] 2 puff INHALATION Q2H PRN 06/16/13 Budesonide/Formoterol 160/4.5 [Symbicort 160/4.5 Mcg Inhaler (SP)] 2 puff INHALATION BID PRN 06/16/13 Clopidogrel Bisulfate [Plavix] 75 mg PO QHS 06/16/13 Levocetirizine Dihydrochloride [Xyzal] 5 mg PO DAILY 07/12/15 Cholecalciferol (VIT D3) [Vitamin D3] 2,000 units PO QHS 03/25/16 Montelukast Sodium [Singulair] 10 mg PO QHS 03/25/16 Omeprazole [Prilosec] 40 mg PO DAILY 05/13/17 Ipratropium/Albuterol Sulfate [Duoneb] 3 ml INHALATION Q4H.RT 05/15/17 Aspirin [Aspirin, Baby] 81 mg PO DAILY@0800 06/20/17 cyanocobalamin (vit B-12) 1,000 mcg tablet 1,000 mcg PO QDAY 10/15/17 Atorvastatin Calcium [Lipitor] 20 mg PO DAILY 12/14/17 Cetirizine HCl [Zyrtec] 10 mg PO QHS 12/14/17 Prednisone 10 mg PO DAILY #30 tab 04/02/18 levoFLOXacin tablet [Levaquin tablet] 750 mg PO DAILY@0600 #7 tab 04/02/18 Following Prescrptions Were Given to Patient: levoFLOXacin tablet [Levaquin tablet] 750 mg PO DAILY@0600 #7 tab Prednisone 10 mg PO DAILY #30 tab Primary Care Physician: Alexey Mayberry MD [Primary Care Provider] - Please follow up with your Primary Care Physician in: 2 weeks. Patient Instructions: Discharge Instructions: COPD, Discharge Instructions for Pneumonia Disposition: Home Minutes spent on discharge:: 34 Patient Condition:: Stable Medical Necessity - Tobacco Use Smoking Status: Current every day smoker Tobacco Use: Cigarettes Meaningful Use Info Meaningful Use Diagnoses (Choose all that apply): None applicable Code Visit Inpatient E&M: 72023 Disch Hosp
--- NOTE | 2018-04-02 12:46 | DS.PCM_ITS ---
Discharge Date and Diagnosis Date of Admission: 03/29/18 Date of Discharge: 04/02/18 - Primary Discharge Diagnosis #1 acute hypercapnic respiratory failure secondary to COPD exacerbation and probable associated pneumonia. #2 septic shock. #3 probable healthcare associated pneumonia. #4 acute COPD exacerbation. #5 probable metabolic encephalopathy. 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 Nasogastric tube is malpositioned, looping within the stomach, with its tip in the thoracic esophagus. Tube should be removed and replaced. Chronic interstitial changes with evidence for COPD. No evidence for acute cardiopulmonary pathology. Electronically Signed: Tyler Keene MD at 1:42 EDT , Service support , Chest CTA 03/28/18 23:50 IMPRESSION: 1. Markedly limited exam due to motion artifact and timing of the contrast bolus with no definitive evidence of acute pulmonary embolism. 2. Mild patchy airspace infiltration within the lingula and within the right middle lobe which may represent atelectasis versus infiltrate versus possible aspiration. Electronically Signed: Jossue Conti MD at 1:52 EDT Tel , Service support , Chest X-Ray 03/29/18 03:40 IMPRESSION: 1. Nasogastric tube tip withdrawn into the proximal esophagus. 2. Appropriate positioning of newly placed right internal jugular central venous line. 3. Mild chronic bilateral perihilar interstitial change. Electronically Signed: Jossue Conti MD at 4:14 EDT Tel , Service support , KUB X-Ray 03/29/18 06:54 IMPRESSION: OG tube tip in the stomach. Hyperinflation lungs. Electronically Signed: Eduardo Villarreal DO at 7:57 EDT , Service support , KUB X-Ray 03/30/18 07:30 IMPRESSION: Feeding tube in the right upper quadrant at the distal stomach or duodenum. Electronically Signed: Adeel Brooks MD at 11:39 EDT , Service support , Dr. Weems, critical care. Operations: None Procedures: 2-D Echocardiogram, EKG, Intubation Summary of Care Provided: Patient seen and examined on the day of discharge and appeared to be stable to be discharged home. He denies any symptoms. He has no more shortness of breath. Reported mild dry cough. His vital signs are stable. He has been off oxygen and his pulse ox is maintained. - Physical Exam General: Alert, Oriented x3, Cooperative, No apparent distress. HEENT: Atraumatic, PERRLA, EOMI. Neck: Supple, No JVD, Negative Carotid Bruits, Trachea Midline, Thyroid Normal. Lungs: Diminished breath sounds bilateral, otherwise clear, No rhonchi, No wheeze, No rales. Cardiovascular: Regular rate, Regular Rhythm, Normal S1, Normal S2, PMI Normal. Abdomen: Bowel Sounds Present, Soft, Non Tender, Non-Distended, No Hepato- splenomegaly. Extremities: No clubbing, No cyanosis, No edema Skin: No rashes, No breakdown Neurological: Neuro grossly intact Vital Signs are stable. Hospital course: This is a 57 years old male patient presented to the emergency room because of respiratory distress, went unresponsive, intubated and started on mechanical ventilation, found to have acute hypercapnic respiratory failure and septic shock by criteria secondary to probable healthcare associate pneumonia and COPD exacerbation. #1 acute hypercapnic respiratory failure/respiratory arrest: Patient was intubated, mechanically ventilated and was admitted to intensive care unit. He was treated with IV antibiotics, IV steroids and bronchodilators. This acute respiratory failure attributed to acute COPD exacerbation and probable pneumonia. Patient remains on mechanical ventilation for 3 days and then extubated uneventfully. After extubation, patient did very well and was able to take him off oxygen and his pulse ox was maintained on room air. This acute respiratory failure resolved. #2 septic shock: Secondary to pneumonia and acute respiratory failure. Patient was treated with IV fluids and IV antibiotics. Lactic acid on admission was 9 and with IV fluid therapy and IV antibiotics, it came down to 2 which is normal. Urine culture showed no growth. Sputum culture showed mixed normal respiratory chente. Respiratory panel for viruses was negative. One bottle of blood culture revealed gram-positive rods which is possibly a skin contamination. Another 3 bottles of blood culture showed no growth in 48 hours. After treatment, patient's vital signs stabilized, became normotensive, heart rate stabilized as well as pulse ox. Patient discharged home on Levaquin. #3 probable healthcare associated pneumonia: Initially treated with IV Zosyn and vancomycin. 1 bottle of blood culture revealed gram-positive rods which is a skin contaminant, another bottle blood cultures came back negative and no growth in 48 hours. Repeat blood cultures with no growth in 48 hours. Bacteremia without. Patient discharged home in a stable medical condition, discharged on Levaquin to complete 10 days to complete. #4 acute COPD exacerbation: Required intubation, mechanical ventilation, treated with IV steroids, IV antibiotics and bronchodilators. After extubation , patient did very well, was able to come off oxygen and he was able to maintain his pulse ox on room air. Patient was discharged on tapering course of prednisone, discharged on Levaquin as above, continued on DuoNeb, Symbicort, albuterol inhaler, recommended from PCP and his pulmonary as outpatient. #5 probable metabolic encephalopathy: Resolved. After extubation, patient remained alert and oriented ?3. 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 This note was generated with Pe[employer] software. It may contain incorrect words, spelling, and punctuation that were not noted in checking the note before signing. Discharge Activity: Return to Normal Activity Weight Bearing Status: Full weight bearing Call your doctor if you observe: Fever of 101 or Higher, Shortness of breath, Dizziness, Fainting spells, Chest pain, Increased palpitations (irregular heartbeat), Uncontrolled pain Home Medications: Medications to take at Discharge Albuterol Inhaler [Ventolin Hfa] 2 puff INHALATION Q2H PRN 06/16/13 Budesonide/Formoterol 160/4.5 [Symbicort 160/4.5 Mcg Inhaler (SP)] 2 puff INHALATION BID PRN 06/16/13 Clopidogrel Bisulfate [Plavix] 75 mg PO QHS 06/16/13 Levocetirizine Dihydrochloride [Xyzal] 5 mg PO DAILY 07/12/15 Cholecalciferol (VIT D3) [Vitamin D3] 2,000 units PO QHS 03/25/16 Montelukast Sodium [Singulair] 10 mg PO QHS 03/25/16 Omeprazole [Prilosec] 40 mg PO DAILY 05/13/17 Ipratropium/Albuterol Sulfate [Duoneb] 3 ml INHALATION Q4H.RT 05/15/17 Aspirin [Aspirin, Baby] 81 mg PO DAILY@0800 06/20/17 cyanocobalamin (vit B-12) 1,000 mcg tablet 1,000 mcg PO QDAY 10/15/17 Atorvastatin Calcium [Lipitor] 20 mg PO DAILY 12/14/17 Cetirizine HCl [Zyrtec] 10 mg PO QHS 12/14/17 Prednisone 10 mg PO DAILY #30 tab 04/02/18 levoFLOXacin tablet [Levaquin tablet] 750 mg PO DAILY@0600 #7 tab 04/02/18 Following Prescrptions Were Given to Patient: levoFLOXacin tablet [Levaquin tablet] 750 mg PO DAILY@0600 #7 tab Prednisone 10 mg PO DAILY #30 tab Primary Care Physician: Alexey Mayberry MD [Primary Care Provider] - Please follow up with your Primary Care Physician in: 2 weeks. Patient Instructions: Discharge Instructions: COPD, Discharge Instructions for Pneumonia Disposition: Home Minutes spent on discharge:: 34 Patient Condition:: Stable Medical Necessity - Tobacco Use Smoking Status: Current every day smoker Tobacco Use: Cigarettes Meaningful Use Info Meaningful Use Diagnoses (Choose all that apply): None applicable Code Visit Inpatient E&M: 90171 Disch Hosp
== END 2018-04-02 12:14 | disposition home or self-care (01) | DRG 871 ==
LOC: ED 03-29 02:44 → ICU 03-29 04:17 → PCU 04-01 15:18
PROVIDERS: Internal Medicine Critical Care Medicine; Admitting Provider Hospitalist; Emergency Provider Emergency Medicine; Family Provider Internal Medicine; PCP Internal Medicine; Visit Provider Hospitalist
DX: A41.9 Sepsis, unspecified organism (principal); J18.9 Pneumonia, unspecified organism; G93.41 Metabolic encephalopathy; R65.21 Severe sepsis with septic shock; R09.2 Respiratory arrest; J44.0 Chronic obstructive pulmonary disease with (acute) lower respiratory infection; G93.1 Anoxic brain damage, not elsewhere classified; I10 Essential (primary) hypertension; I25.5 Ischemic cardiomyopathy; F17.210 Nicotine dependence, cigarettes, uncomplicated; Y95 Nosocomial condition; E78.5 Hyperlipidemia, unspecified; I25.10 Atherosclerotic heart disease of native coronary artery without angina pectoris; I25.2 Old myocardial infarction; Z86.711 Personal history of pulmonary embolism; Z79.82 Long term (current) use of aspirin
CPT/HCPCS: 31500; 31720; 36600; 51702; 71045; 71275; 74018; 80048; 80053; 80202; 81001; 82550; 82803; 82962; 83605; 83735; 84100; 84478; 84484; 85025; 85027; 85610; 85730; 87040; 87070; 87086; 87205; 87633; 87641; 93005; 93306; 94002; 94003; 94640; 94660; 95831; 97110; 97161; 97166; 97530; 97802; 99251; 99284; J7030; J7040; J7050; Q9957; Q9967; A4216; C1751; G0463; J0330

== ENCOUNTER 2018-04-07 05:22 | Emergency (ER) | payer MEDICARE, MEDICAID, SELFPAY ==
[2018-04-07 05:25] VITALS: BP 133/82; PULSE 89; RESP 17; TEMP 36.8; O2SAT 97; BMI 21.7
[2018-04-07] MEDS: HYDROcodone Bitartrate/Apap 5/325 Tablet PO (05:43)
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
[2018-04-07 07:07] VITALS: BP 128/80; PULSE 81; RESP 16; O2SAT 97
== END 2018-04-07 07:08 | disposition home or self-care (01) ==
PROVIDERS: Emergency Provider Emergency Medicine; Family Provider Internal Medicine; PCP Internal Medicine
DX: S01.01XA Laceration without foreign body of scalp, initial encounter (principal); S42.002A Fracture of unspecified part of left clavicle, initial encounter for closed fracture; S62.521A Displaced fracture of distal phalanx of right thumb, initial encounter for closed fracture; V17.4XXA Pedal cycle driver injured in collision with fixed or stationary object in traffic accident, initial encounter; Y93.55 Activity, bike riding; Y92.413 State road as the place of occurrence of the external cause; Y99.9 Unspecified external cause status; I10 Essential (primary) hypertension; E78.00 Pure hypercholesterolemia, unspecified; J44.9 Chronic obstructive pulmonary disease, unspecified; I25.10 Atherosclerotic heart disease of native coronary artery without angina pectoris
CPT/HCPCS: 12001; 71045; 73030; 73070; 73130; 99285

== ENCOUNTER → 2018-07-01 11:24 | Outpatient (CLI) | payer MEDICARE, MEDICAID, SELFPAY | PROVIDERS: Family Provider Internal Medicine; PCP Internal Medicine; Referring Provider Obstetrics & Gynecology; Visit Provider Obstetrics & Gynecology | DX: R06.02 Shortness of breath (principal) ==

== ENCOUNTER 2018-07-07 07:47 | Day surgery (SDC) | payer MEDICARE, MEDICAID, SELFPAY ==
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
--- NOTE | 2018-07-01 16:49 | EKG12_ITS ---
Test Reason : PRE OP Blood Pressure : / mmHG Vent. Rate : 075 BPM Atrial Rate : 075 BPM P-R Int : 122 ms QRS Dur : 078 ms QT Int : 372 ms P-R-T Axes : 053 -02 022 degrees QTc Int : 415 ms Normal sinus rhythm with sinus arrhythmia Low voltage QRS (limb leads) Inferior infarct , age undetermined Abnormal ECG Confirmed by JOSE DAVID RICE, CYNDY ([id number]), telegraph editor YOLA GUERRA ([id number]) on 07/03/2018 3:47:02 PM Referred By: Shemar Figueroa Confirmed By:CYNDY MAIN MD
[2018-07-01 17:15] LABS: Hematocrit 44.3 % (40-54); Hemoglobin 14.4 g/dl (13.0-16.5); Mean Corp Hgb Conc 32.5 g/gl (32-36); Mean Corpuscular Hgb 30.1 pg (27.0-32.0); Mean Corpuscular Volume 92.5 fL (80-94); Mean Platelet Vol. 9.9 fl (6.2-12.0); Platelet Count 265 K/mm3 (150-450); RBC Distribution Width CV 14.4 % (11.6-14.6); RBC Distribution Width SD 48.7 fl (35.1-43.9); Red Blood Count 4.79 M/mm3 (4.6-6.2); White Blood Count 8.9 K/mm3 (4.4-11.0)
[2018-07-01 17:21] LABS: Anion Gap 9 (5-15); BUN 10 mg/dL (7-18); BUN/Creat Ratio 10.8 RATIO (10-20); Calcium,Total 8.9 mg/dL (8.5-10.1); Chloride 107 mmol/L (98-107); Creatinine, Serum 0.93 mg/dL (0.70-1.30); EST Glomerular Filtration Rate 89 mL/min (>60); Est Glom Filt Rate - Afr Amer 108 mL/min (>60); Glucose 87 mg/dL (74-106); Potassium 3.9 mmol/L (3.5-5.1); Sodium Level 142 mmol/L (136-145)
[2018-07-01 17:31] LABS: Scan Indicated on CBC? Y/N NO
[2018-07-07 08:06] VITALS: BP 108/79; PULSE 82; RESP 18; TEMP 36.6; O2SAT 97; BMI 23.3
[2018-07-07] MEDS: Oxymetazoline 0.05% 1 SPRAY SPRAY.BTL 15 SPRAY NASAL (08:17)
--- NOTE | 2018-07-07 09:30 | ETH_PTH ---
PATIENT: CHIO DENT Jr. LOC: [facility] – [place] U#:[id number] AGE/SX: 57/M ROOM: RE07/07/[address]: Dr. Shemar Figueroa MD : 1960 BED: DIS: 07/07/2018 SPEC #: [id number] RECD: 07/07/18 11:31 STATUS: MARIA EUGENIA YAN #: [id number] MALACHI: 07/07/18 09:[address]: Shemar Figueroa DEPT: SURGICAL PATHOLOGY RECD BY: Sherly Luong ENTERED: 07/07/18 12:06 SP TYPE: ETH TISS OTHR DR: Dr. Alexey Mayberry MD Tissues: A - Ethmoid sinus, NOS B - Ethmoid sinus, NOS Procedures: Decalcification bone/plaque Surgery Specimen Level IV HEADER OPERATION: bilateral maxillary antrostomy, total bilateral ethmoidectomy PRE-OP DIAGNOSIS: Chronic pansinusitis, ethmoidal polyp of sinus TISSUE SUBMITTED: A. Right maxillary and ethmoid sinus contents, B. Left maxillary and ethmoid sinus contents MICROSCOPIC DIAGNOSIS A. Right maxillary and ethmoid sinus contents: Benign fragments of polypoid sinonasal tissue with chronic sinusitis. B. Left maxillary and ethmoid sinus contents: Benign fragments of polypoid sinonasal tissue with chronic sinusitis. AM:kyle 07/10/18 MICROSCOPIC DESCRIPTION Slides are reviewed. GROSS DESCRIPTION A - Received in fixative is one container labeled with the patient's name and designated right maxillary and ethmoid sinus contents. The specimen consists of multiple fragments of hemorrhagic soft tissue mixed with frothy material and fragments of bone that in aggregate measure 5 x 3 x 0.8 cm. The entire specimen is submitted in four cassettes after decalcification. B - Received in fixative is one container labeled with the patient's name and designated left maxillary and ethmoid sinus contents. The specimen consists of multiple fragments of hemorrhagic soft tissue mixed with frothy material and fragments of bone that in aggregate measure 5 x 3 x 0.8 cm. The entire specimen is submitted in four cassettes after decalcification. / MAIRA:kyle 07/07/18 TC:3 CPT: 37537 x2, 09261 x2
--- NOTE | 2018-07-07 10:48 | DCINST_ITS ---
You will use the following diet at home:: Regular Discharge Activity: Return to Normal Activity, - - NO NOSEBLOWING Additional Activity Instructions:: Start irrigation on 07/08/18. Irrigate 4x/day. Allergies/Adverse Reactions: Allergies latex Allergy (Verified 06/30/18 15:22) Rash varenicline tartrate [From Chantix] Allergy (Verified 06/30/18 15:22) Hives aspirin Adverse Reaction (Verified 06/30/18 15:22) Upset Stomach Medications to take at Discharge Albuterol Inhaler [Ventolin Hfa] 2 puff INHALATION Q2H PRN 06/16/13 Clopidogrel Bisulfate [Plavix] 75 mg PO QHS 06/16/13 Levocetirizine Dihydrochloride [Xyzal] 5 mg PO DAILY 07/12/15 Cholecalciferol (VIT D3) [Vitamin D3] 2,000 units PO QHS 03/25/16 Montelukast Sodium [Singulair] 10 mg PO QHS 03/25/16 Omeprazole [Prilosec] 40 mg PO DAILY 05/13/17 Aspirin [Aspirin, Baby] 81 mg PO DAILY@0800 06/20/17 cyanocobalamin (vit B-12) 1,000 mcg tablet 1,000 mcg PO QDAY 10/15/17 Atorvastatin Calcium [Lipitor] 20 mg PO DAILY 12/14/17 Cetirizine HCl [Zyrtec] 10 mg PO QHS 12/14/17 Ipratropium/Albuterol Sulfate [Duoneb] 3 ml INHALATION Q4H.RT PRN 06/30/18 Mometasone/Formoterol [Dulera 200 Mcg/5 Mcg Inhaler] 2 puff IH BID 06/30/18 Orders to be completed after discharge: 12 Lead EKG [CVS] Time Frame: 07/01/18, Location: None Selected Chest PA and Lateral [RAD] Time Frame: 07/01/18, Location: None Selected Primary Care Physician: Alexey Mayberry MD [Primary Care Provider] - Test Results: Test results from this visit will be discussed in further detail at your follow- up appointment, if applicable.
--- NOTE | 2018-07-07 10:48 | PCM.OPRPT ---
Report of Operation Date of Procedure: 07/07/18 Pre-Operative Diagnosis: chronic sinusitis Post-Operative Diagnosis: same Surgery/Procedure Performed:: Bilateral frontal sinusotomy; bilateral total ethmoidectomy; bilateral maxillary antrostomy; Use of navigation Type of Anesthesia:: General Anesthesiologist: Bobby Han Specimen's removed: sinus contents Estimated Blood Loss (mL): minimal Description of Procedure: The patient was taken to the OR on 07/07/18. He was placed in the supine position on the OR table. He was given sufficient general anesthesia. The head of bed was elevated 30 degrees. The navigation equipment was placed on the patient's face. The patient was then draped steriley. The navigation was successfully registered per protocol and anatomy was verified. The middle turbinates and polyps and uncinate processes were injected with 1% lidocaine with epinephrine (bilaterally). Zero and 30 degree rigid nasal endoscopes were used throughout the entire case. The right middle turbinate was medialized with a freer elevator. Extensive polyp was removed from the middle meatus with a sinus shaver. An antrostomy was created with a back biter. Anterior and posterior ethmoidectomy was carried out with a curette and sinus shaver. There was extensive disease in the ethmoid cavity. Next, the image guided frontal probe was placed into the correct position to verify the fontal sinus. Small 90 degree [place]akes[place] Wile forceps were used to remove the tissue to open the frontal sinus. The navigation was used to verify anatomy throughout each step. Hemostasis was achieved with afrin pledgets. Vince was also used for hemostasis. Next, attention was turned to the left side. The left middle turbinate was medialized with a freer elevator. There was a large polyp that was removed with a sinus shaver from the meatus. An antrostomy was created with a back biter and widened with cutting forceps. The uncinate was taken down using a sinus shaver. Extensive polypoid disease was removed from the anterior and posterior ethmoid cavity with a sinus shaver and forceps. Next, the image guided frontal probe was placed into the correct position to verify the fontal sinus. Small 90 degree Blakes[place] Wile forceps were used to remove the tissue to open the frontal sinus. Hemostasis was achieved with afrin pledgets and vince. The patient was then awoken and brought to the recovery room in stable condition. Blood loss minimal. Replacement none. Sponge needle and instrument count were correct at the end of the procedure.
[2018-07-07 10:56] VITALS: BP 108/79; BP 116/89; PULSE 75; RESP 16; TEMP 36.3; O2SAT 95
[2018-07-07 11:00] VITALS: BP 108/79; BP 123/88; PULSE 70; RESP 18; O2SAT 100
[2018-07-07 11:15] VITALS: BP 108/79; BP 128/86; PULSE 63; RESP 18; O2SAT 99
[2018-07-07 11:22] VITALS: BP 108/79; BP 123/88; PULSE 67; RESP 16; TEMP 36.5; O2SAT 97
[2018-07-07 12:15] VITALS: BP 108/79; BP 124/86; PULSE 64; RESP 16; TEMP 36.4; O2SAT 99
== END 2018-07-07 12:17 | disposition home or self-care (01) ==
LOC: SDC 07:47 → AC 07:48
PROVIDERS: Anesthesiology; Family Provider Internal Medicine; PCP Internal Medicine; Visit Provider Otolaryngology
PROC: (CPT 31253; principal; 2018-07-07 09:15)
DX: J32.4 Chronic pansinusitis (principal); J33.8 Other polyp of sinus; K21.9 Gastro-esophageal reflux disease without esophagitis; I25.10 Atherosclerotic heart disease of native coronary artery without angina pectoris; Z95.5 Presence of coronary angioplasty implant and graft; F17.200 Nicotine dependence, unspecified, uncomplicated; Z86.718 Personal history of other venous thrombosis and embolism; I25.2 Old myocardial infarction; J45.909 Unspecified asthma, uncomplicated
CPT/HCPCS: 00160; 31253; 31256; 36415; 71046; 80048; 85027; 88305; 88311; 93005; J7120; J2405

== ENCOUNTER 2018-09-07 15:27 | Emergency (ER) | payer MEDICARE, MEDICAID, SELFPAY ==
[2018-09-05 11:33] VITALS: BMI 23.7
[2018-09-07 15:28] VITALS: BP 119/76; PULSE 80; RESP 16; TEMP 36.8; O2SAT 97; BMI 23.7
[2018-09-07 15:38] VITALS: O2SAT 96
--- NOTE | 2018-09-07 15:39 | ED.VISSUMM ---
- ER Visit Summary Date of Service: 09/07/18 Chief Complaint: Cough and body aches History of Present Illness: The patient is a 58 M history of CAD, [place], COPD, cardiac stents and had pneumonia was hospitalized 4 or more months ago. Cough of yellowish sputum. Denies fever or chills. Denies any significant shortness of breath. He does complain of body aches. Productive yellowish sputum. No hemoptysis. No chest pain. Physical Examination: Middle-aged male. Vital signs stable and afebrile. He does not look septic. No acute distress. Pulse ox 97% on room air no signs of hypoxia H EENT exam unremarkable. TMs normal. Moist his membranes. No trouble swallowing or breathing. Neck nontender. No lymphadenopathy. Lungs coarse breath sounds. Expiratory wheezing both bases. No rales or rhonchi. Equal and symmetrical. He is a smoker. Heart regular rhythm no murmur. Abdomen soft nontender. Patient moving all 4 extremities. Calves are nontender without edema or cords. Neurologically he is awake and alert with no focal motor deficits. Test Results: Chest x-ray 2 views show chronic changes consistent with COPD but no acute infiltrate. Emergency Department Course and Treatment: Patient treated with 1 DuoNeb and one albuterol aerosol treatment. He was instructed to stop smoking. Repeat exam posttreatment patient is doing well. He will be treated for exacerbation of COPD. Treatment Plan: Prednisone 40 g a day for 1 week. Zithromax Rx. Disposition: Discharge Impression: Acute bronchitis Acute exacerbation of COPD This note was generated with [employer] dictation software. It may contain incorrect words, spelling, and punctuation that were not noted in review of the chart prior to signing ED Disposition - Plan for ED Patient: Chief Complaint: Cough Referrals: Alexey Mayberry MD [Primary Care Provider] -
[2018-09-07 15:40] VITALS: BP 113/75; PULSE 91; TEMP 36.7; O2SAT 95
--- NOTE | 2018-09-07 15:42 | ED.DCSUM_ITS ---
- ER Visit Summary Date of Service: 09/07/18 Chief Complaint: Cough and body aches History of Present Illness: The patient is a 58 M history of CAD, [place], COPD, cardiac stents and had pneumonia was hospitalized 4 or more months ago. Cough of yellowish sputum. Denies fever or chills. Denies any significant shortness of breath. He does complain of body aches. Productive yellowish sputum. No hemoptysis. No chest pain. Physical Examination: Middle-aged male. Vital signs stable and afebrile. He does not look septic. No acute distress. Pulse ox 97% on room air no signs of hypoxia H EENT exam unremarkable. TMs normal. Moist his membranes. No trouble swallowing or breathing. Neck nontender. No lymphadenopathy. Lungs coarse breath sounds. Expiratory wheezing both bases. No rales or rhonchi. Equal and symmetrical. He is a smoker. Heart regular rhythm no murmur. Abdomen soft nontender. Patient moving all 4 extremities. Calves are nontender without edema or cords. Neurologically he is awake and alert with no focal motor deficits. Test Results: Chest x-ray 2 views show chronic changes consistent with COPD but no acute infiltrate. Emergency Department Course and Treatment: Patient treated with 1 DuoNeb and one albuterol aerosol treatment. He was instructed to stop smoking. Repeat exam posttreatment patient is doing well. He will be treated for exacerbation of COPD. Treatment Plan: Prednisone 40 g a day for 1 week. Zithromax Rx. Disposition: Discharge Impression: Acute bronchitis Acute exacerbation of COPD This note was generated with [employer] dictation software. It may contain incorrect words, spelling, and punctuation that were not noted in review of the chart prior to signing ED Disposition - Plan for ED Patient: Chief Complaint: Cough Referrals: Alexey Mayberry MD [Primary Care Provider] -
--- NOTE | 2018-09-07 15:53 | RAD_ITS ---
STUDY: X-RAY CHEST REASON FOR EXAM: Male, 58 years old. Cough and weakness, chills and fever TECHNIQUE: PA and lateral views of the chest. COMPARISON: 07/01/2018 FINDINGS: The lungs are clear and expanded. There is no demonstrated pleural abnormality. Normal size heart. Normal mediastinum and winnie. Normal visualized pulmonary arteries. Normal visualized aortic arch and descending thoracic aorta. Normal visualized thoracic spine. Normal visualized ribs, clavicles, and shoulders. There is no demonstrated abnormality of the visualized soft tissue structures of the upper abdomen. RAD/Chest PA and Lateral IMPRESSION: Normal x-ray examination of the chest. Electronically Signed: Raudel Sosa DO at 16:51 EST Tel , Service support ,
[2018-09-07 16:13] VITALS: PULSE 95; RESP 22
[2018-09-07] MEDS: Albuterol 2.5 MG/3 ML VIAL.NEB. INHALATION (16:13)
[2018-09-07] MEDS: Ipratropium/Albuterol Sulfate 3 ML AMPUL.NEB INHALATION (16:13)
--- NOTE | 2018-09-07 16:27 | ED.DEP ---
ED Disposition - Plan for ED Patient: Disposition: Home or Assisted Living Chief Complaint: Cough Instructions: ED COPD Flare Prescriptions: Azithromycin [Zithromax Z-Cliff] 250 mg PO UD #1 box Prednisone [Deltasone] 40 mg PO DAILY 7 Days tab Referrals: Alexey Mayberry MD [Primary Care Provider] - 1 Week if not improving Additional Instructions: Plenty fluids and rest. Prednisone 40 mg a day until gone. Follow-up if not improving return if worse. Stop smoking !!
[2018-09-07] MEDS: predniSONE 20 MG Tablet 60 MG PO (16:56)
[2018-09-07 16:57] VITALS: PULSE 85; RESP 16; O2SAT 98
== END 2018-09-07 17:00 | disposition home or self-care (01) ==
PROVIDERS: Emergency Provider Emergency Medicine; Family Provider Internal Medicine; PCP Internal Medicine
DX: J20.9 Acute bronchitis, unspecified (principal); J44.0 Chronic obstructive pulmonary disease with (acute) lower respiratory infection; J44.1 Chronic obstructive pulmonary disease with (acute) exacerbation; I25.10 Atherosclerotic heart disease of native coronary artery without angina pectoris; I25.2 Old myocardial infarction; Z95.5 Presence of coronary angioplasty implant and graft; Z87.01 Personal history of pneumonia (recurrent); Z72.0 Tobacco use
CPT/HCPCS: 71046; 94640; 99283

== ENCOUNTER → 2018-10-17 12:57 | Outpatient (CLI) | payer MEDICARE, MEDICAID, SELFPAY ==
[2018-10-17 14:40] LABS: AST(SGOT) 15 U/L (15-37); Alanine Aminotransfer ALT/SGPT 16 U/L (16-61); Albumin, Serum 3.5 g/dL (3.2-5.0); Alkaline Phosphatase 113 U/L (45-117); Bilirubin, Direct 0.23 mg/dL (0.00-0.30); Cholesterol 133 mg/dL (200); Globulin 3.5 g/dL (2.2-4.2); High Density Lipoprotein 34 mg/dL; Triglycerides 93 mg/dL; Very Low Density Lipoprotein 19 mg/dL (5-40)
== END ==
PROVIDERS: Family Provider Internal Medicine; PCP Internal Medicine; Referring Provider Internal Medicine Cardiovascular Disease; Visit Provider Internal Medicine Cardiovascular Disease
DX: I25.10 Atherosclerotic heart disease of native coronary artery without angina pectoris (principal); I25.5 Ischemic cardiomyopathy; Z98.61 Coronary angioplasty status
CPT/HCPCS: 36415; 80061; 80076

== ENCOUNTER 2018-11-21 20:44 | Emergency (ER) | payer MEDICARE, MEDICAID, SELFPAY ==
[2018-11-21 20:46] VITALS: BP 118/79; PULSE 91; RESP 18; TEMP 36.6; O2SAT 95; BMI 23.5
--- NOTE | 2018-11-21 21:11 | ED.VIS.GEN ---
History of Present Illness Chief Complaint: Cough Detail of Chief Complaint: COPD Informant: Patient Onset: Days - Yesterday after working on his car Context: Sudden Onset Timing: Continuous Quality: Shortness of breath, cough, Location: respiratory Current Severity: Mild Maximum Severity: Moderate Worsened by: Activity Relieved by: Nothing Associated Symptoms: Productive cough Narrative: Patient is a middle-aged male who continues to smoke who presents with productive cough and shortness of breath that started last evening after working on his car. He believes because he was outside in the cold. He denies rhinorrhea, congestion postnasal drainage. Denies headache, photophobia, neck pain or neck stiffness. He denies ear pain or decreased hearing. He has not recently been on prednisone. He does have a remote history of PE. He denies leg pain, swelling discoloration. Denies history of DVT. Prior similar symptoms: Yes Recent Illness/Hospitalization: No - Past Medical History (1) Acute on chronic respiratory failure with hypoxemia Status: Acute (2) HCAP (healthcare-associated pneumonia) Status: Acute (3) Old myocardial infarction Status: Acute (4) Paroxysmal atrial tachycardia Status: Acute (5) Paroxysmal ventricular tachycardia Status: Acute (6) Atherosclerotic heart disease of [place] coronary artery without angina pectoris Status: Chronic Comment: PTCA and stenting RCA 06/27/2008 at [facility]; (7) COPD (chronic obstructive pulmonary disease) Status: Chronic (8) HLD (hyperlipidemia) Status: Chronic (9) History of pulmonary embolism Status: Chronic (10) Ischemic cardiomyopathy Status: Chronic (11) Nicotine abuse Status: Chronic Past Medical History - Allergies and Home Meds Allergies/Adverse Reactions: Allergies latex Allergy (Verified 11/21/18 20:47) Rash varenicline tartrate [From Chantix] Allergy (Verified 11/21/18 20:47) Hives aspirin Adverse Reaction (Verified 11/21/18 20:47) Upset Stomach Primary Care Physician: Alexey Mayberry MD [Primary Care Provider] - Prior records reviewed: Yes Surgical History: angioplasty, - Smoking Status: Current every day smoker - Family History Maternal Family History: Family History (Last Reviewed 09/05/18 @ 11:36 by Sierra Ohara) Father CAD (coronary artery disease) Heart disease Myocardial infarction Mother Diabetes Brother Hypertension Family History: Reports: Diabetes Paternal Family History: Family History (Last Reviewed 09/05/18 @ 11:36 by Sierra Ohara) Father CAD (coronary artery disease) Heart disease Myocardial infarction Mother Diabetes Brother Hypertension Family History: Reports: Heart Disease Review of Systems General: Denies: Chills, Fever, Sweats Eyes: Denies: Visual changes - bilaterally, Diplopia ENT: Denies: Rhinorrhea, Sore throat Cardiovascular: Denies: Chest pain, Palpitations Respiratory: Reports: Dyspnea, Cough, Sputum, Dyspnea on exertion. Denies: Orthopnea, Paroxysmal nocturnal dyspnea Gastrointestinal: Denies: Abdominal pain, Nausea, Vomiting, Diarrhea, Melena, Hematochezia Genitourinary: Denies: Dysuria, Hematuria, Frequency Musculoskeletal: Denies: Back pain, Extremity Pain Skin: Denies: Rash, Wounds Neurological: Denies: Headache, Weakness, Numbness Hematologic: Denies: Easy bruising, Easy bleeding Allergy: Denies: Uticaria Physical Exam Vital Signs/Narrative: Vital Signs Temp Pulse Resp BP Pulse Ox 11/21/18 20:46 97.9 F 91 18 118/79 95 Inital Vital Signs reviewed: Yes General: Well nourished, Well developed, No Acute Distress Head: Normocephalic, Atraumatic Eyes: Perrl, EOMI ENT: Moist mucous membranes, No rhinorrhea Neck: Supple, Nontender Cardiovascular: Regular rate, Regular rhythm, No murmurs Respiratory: Chest nontender, Wheezing, Decreased Air Movement. Negative for: No distress Abdomen: Soft, Nontender, Nondistended, Normal bowel sounds Back: Nontender, Normal Inspection Extremities: Nontender, No edema Skin: Normal color, No rash Neurological: Alert, Oriented x3, Cranial nerves II-XII grossly intact, Normal Strength, Normal Sensation Psychological: Normal affect, Normal Mood Diagnostic/Tx/Re-eval Chest X-Ray - ED: 2 View, Read by ED Physician, Normal, Heart, Mediastinum, Bony Structures, No Acute Disease, Chronic Changes - Rhythm Strip Rhythm Strip: Sinus Rhythm Rate: 93 Ectopy: None - Medical Decision Making Acute bronchitis causing exacerbation COPD versus pneumonia causing exacerbation COPD. Chest x-ray was obtained because he reports productive cough and he was treated with DuoNeb and albuterol. He received 60 mill grams of prednisone. If an infiltrate is noted on x-ray will obtain appropriate blood work. Patient was reexamined at 20-25. His wheezing has improved markedly. He has minimal wheezing at this time. He is moving much more air. Chest x-ray reveals chronic changes. Because he presents with productive cough of colored sputum, which is abnormal for him and he is still wheezing will prescribe a burst of prednisone and doxycycline. He was informed that is in his best interest to stop smoking. ED Disposition - Plan for ED Patient: Disposition: Home or Assisted Living Diagnosis: COPD with acute exacerbation, Purulent bronchitis, Paroxysmal atrial tachycardia, Atherosclerotic heart disease of [place] coronary artery without angina pectoris Instructions: ED COPD Flare Prescriptions: Prednisone [Deltasone] 40 mg PO DAILY #10 tablet Doxycycline 100 mg PO BID #14 capsule Referrals: Alexey Mayberry MD [Primary Care Provider] - 3-5 Days if not improving
[2018-11-21] MEDS: predniSONE 20 MG Tablet 60 MG PO (21:20)
--- NOTE | 2018-11-21 21:25 | RAD_ITS ---
STUDY: X-RAY CHEST REASON FOR EXAM: Male, 58 years old. Cough. TECHNIQUE: PA and lateral views of the chest. COMPARISON: February 05, 2019. FINDINGS: The lungs are hyperexpanded. No new mass or infiltrate. There is no demonstrated pleural abnormality. Normal size heart. Normal mediastinum and winnie. Normal visualized pulmonary arteries. Normal visualized aortic arch and descending thoracic aorta. There are mild degenerative changes of the thoracic spine There is degenerative osteoarthritis of the bilateral shoulders. There is no demonstrated abnormality of the visualized soft tissue structures of the upper abdomen. RAD/Chest PA and Lateral IMPRESSION: No acute cardiopulmonary disease or major interval change. Electronically Signed: Roosevelt Doyle DO at 21:49 EDT Tel [phone], Service support ,
[2018-11-21 21:45] VITALS: PULSE 96; RESP 18
[2018-11-21] MEDS: Albuterol 2.5 MG/3 ML VIAL.NEB. INHALATION (21:45)
[2018-11-21] MEDS: Ipratropium/Albuterol Sulfate 3 ML AMPUL.NEB INHALATION (21:45)
[2018-11-21] MEDS: Doxycycline 100 MG CAPSULE PO (22:36)
[2018-11-21 22:38] VITALS: BP 114/82; PULSE 89; RESP 18; O2SAT 100
== END 2018-11-21 22:39 | disposition home or self-care (01) ==
PROVIDERS: Emergency Provider Emergency Medicine; Family Provider Internal Medicine; PCP Internal Medicine
DX: J20.9 Acute bronchitis, unspecified (principal); J44.0 Chronic obstructive pulmonary disease with (acute) lower respiratory infection; I47.1 Supraventricular tachycardia; I25.10 Atherosclerotic heart disease of native coronary artery without angina pectoris; F17.200 Nicotine dependence, unspecified, uncomplicated; I25.5 Ischemic cardiomyopathy; Z86.711 Personal history of pulmonary embolism; E78.5 Hyperlipidemia, unspecified; Z95.5 Presence of coronary angioplasty implant and graft; J96.21 Acute and chronic respiratory failure with hypoxia; I25.2 Old myocardial infarction; Z87.01 Personal history of pneumonia (recurrent)
CPT/HCPCS: 71046; 94640; 99283

== ENCOUNTER 2019-01-14 13:45 | Emergency (ER) | payer MEDICARE, MEDICAID, SELFPAY ==
[2019-01-14 13:46] VITALS: BP 112/73; PULSE 71; RESP 18; TEMP 36.4; O2SAT 97; BMI 23.1
--- NOTE | 2019-01-14 14:04 | RAD_ITS ---
STUDY: X-RAY - RIGHT ELBOW REASON FOR EXAM: Male, 58 years old. Medial pain TECHNIQUE: 3 view(s) of the elbow. COMPARISON: None. FINDINGS: There is no evidence of fracture or dislocation. There are no significant degenerative changes. There are no radiodense foreign bodies. RAD/Elbow min 3 Views IMPRESSION: No fracture or dislocation. Electronically Signed: Arnie Serna, at 14:24 EDT Tel , Service support ,
--- NOTE | 2019-01-14 14:05 | ED.VIS.UPPEX ---
History of Present Illness Chief Complaint: Upper Extremity Injury Informant: Patient Onset: Today Context: - - awoke w/ sx this AM Timing: Continuous Quality of Pain: Aching Location: medial R elbow Current Severity: Moderate Maximum Severity: Moderate Worsened by: trying to straighten elbow Relieved by: remaining still Associated Symptoms: Loss of Funtion - can't straighten all the way due to pain mostly, - - swelling at affected area. Negative for: Parasthesia, Weakness Narrative: Patient states for the first time this year, he had softball practice last night. He is right-handed. He denies any obvious injury. Woke up this morning with the symptoms. - Past Medical History (1) Old myocardial infarction Status: Chronic (2) Paroxysmal atrial tachycardia Status: Chronic (3) Paroxysmal ventricular tachycardia Status: Chronic (4) Atherosclerotic heart disease of [place] coronary artery without angina pectoris Status: Chronic Comment: PTCA and stenting RCA 06/27/2008 at [place]; (5) COPD (chronic obstructive pulmonary disease) Status: Chronic (6) Dyspepsia and disorder of function of stomach Status: Chronic (7) HLD (hyperlipidemia) Status: Chronic (8) History of pulmonary embolism Status: Chronic (9) Ischemic cardiomyopathy Status: Chronic Past Medical History - Allergies and Home Meds Allergies/Adverse Reactions: Allergies latex Allergy (Verified 01/14/19 13:53) Rash varenicline tartrate [From Chantix] Allergy (Verified 01/14/19 13:53) Hives aspirin Adverse Reaction (Verified 01/14/19 13:53) Upset Stomach Primary Care Physician: Alexey Mayberry MD [Primary Care Provider] - 1 Week if not improving Surgical History: angioplasty, - Smoking Status: Current every day smoker Drugs: None - no IVDU - Family History Maternal Family History: Family History (Last Reviewed 09/05/18 @ 11:36 by Sierra Ohara) Father CAD (coronary artery disease) Heart disease Myocardial infarction Mother Diabetes Brother Hypertension Family History: Reports: Diabetes Paternal Family History: Family History (Last Reviewed 09/05/18 @ 11:36 by Sierra Ohara) Father CAD (coronary artery disease) Heart disease Myocardial infarction Mother Diabetes Brother Hypertension Family History: Reports: Heart Disease Review of Systems General: Denies: Chills, Fever Musculoskeletal: Reports: Swelling, Extremity Pain. Denies: Neck pain, Back pain Skin: Denies: Rash, Abscess, Wounds Physical Exam Vital Signs/Narrative: Vital Signs Temp Pulse Resp BP Pulse Ox 01/14/19 13:46 97.6 F L 71 18 112/73 97 Inital Vital Signs reviewed: Yes Right Elbow: Limited ROM - unable to fully straighten, but otherwise FROM, - - tenderness just distal and anteromedial to medial epicondyle. no skin changes. no track gibbs. no focal swelling or abscess. able to flex at wrist w/o limitation/pain. General: Well nourished, Well developed Skin: Normal color, No rash, No Trauma Neurological: Alert, Oriented x3, Cranial nerves II-XII grossly intact, Normal Strength, Normal Sensation, Normal Gait Psychological: Normal affect Diagnostic/Tx/Re-eval Clinical Impression(s) from Imaging Studies Elbow X-Ray 01/14/19 14:04 IMPRESSION: No fracture or dislocation. Electronically Signed: Arnie Serna, at 14:24 EDT Tel , Service support , - Medical Decision Making Patient reassured, he is likely having muscular pain. There is no evidence for venous thrombosis or bony/joint abnormality on radiography. Supportive care advised and close the patient follow-up if he has persistent problems after a week or so. Advised to rest it relatively as well. ED Disposition - Plan for ED Patient: Disposition: Home or Assisted Living Diagnosis: Strain of right elbow and forearm Instructions: ED Sprain Elbow Referrals: Alexey Mayberry MD [Primary Care Provider] - 1 Week if not improving
--- NOTE | 2019-01-14 14:09 | ED.DCSUM_ITS ---
History of Present Illness Chief Complaint: Upper Extremity Injury Informant: Patient Onset: Today Context: - - awoke w/ sx this AM Timing: Continuous Quality of Pain: Aching Location: medial R elbow Current Severity: Moderate Maximum Severity: Moderate Worsened by: trying to straighten elbow Relieved by: remaining still Associated Symptoms: Loss of Funtion - can't straighten all the way due to pain mostly, - - swelling at affected area. Negative for: Parasthesia, Weakness Narrative: Patient states for the first time this year, he had softball practice last night. He is right-handed. He denies any obvious injury. Woke up this morning with the symptoms. - Past Medical History (1) Old myocardial infarction Status: Chronic (2) Paroxysmal atrial tachycardia Status: Chronic (3) Paroxysmal ventricular tachycardia Status: Chronic (4) Atherosclerotic heart disease of [place] coronary artery without angina pectoris Status: Chronic Comment: PTCA and stenting RCA 06/27/2008 at [place]; (5) COPD (chronic obstructive pulmonary disease) Status: Chronic (6) Dyspepsia and disorder of function of stomach Status: Chronic (7) HLD (hyperlipidemia) Status: Chronic (8) History of pulmonary embolism Status: Chronic (9) Ischemic cardiomyopathy Status: Chronic Past Medical History - Allergies and Home Meds Allergies/Adverse Reactions: Allergies latex Allergy (Verified 01/14/19 13:53) Rash varenicline tartrate [From Chantix] Allergy (Verified 01/14/19 13:53) Hives aspirin Adverse Reaction (Verified 01/14/19 13:53) Upset Stomach Primary Care Physician: Alexey Mayberry MD [Primary Care Provider] - 1 Week if not improving Surgical History: angioplasty, - Smoking Status: Current every day smoker Drugs: None - no IVDU - Family History Maternal Family History: Family History (Last Reviewed 09/05/18 @ 11:36 by Sierra Ohara) Father CAD (coronary artery disease) Heart disease Myocardial infarction Mother Diabetes Brother Hypertension Family History: Reports: Diabetes Paternal Family History: Family History (Last Reviewed 09/05/18 @ 11:36 by Sierra Ohara) Father CAD (coronary artery disease) Heart disease Myocardial infarction Mother Diabetes Brother Hypertension Family History: Reports: Heart Disease Review of Systems General: Denies: Chills, Fever Musculoskeletal: Reports: Swelling, Extremity Pain. Denies: Neck pain, Back pain Skin: Denies: Rash, Abscess, Wounds Physical Exam Vital Signs/Narrative: Vital Signs Temp Pulse Resp BP Pulse Ox 01/14/19 13:46 97.6 F L 71 18 112/73 97 Inital Vital Signs reviewed: Yes Right Elbow: Limited ROM - unable to fully straighten, but otherwise FROM, - - tenderness just distal and anteromedial to medial epicondyle. no skin changes. no track gibbs. no focal swelling or abscess. able to flex at wrist w/o limitation/pain. General: Well nourished, Well developed Skin: Normal color, No rash, No Trauma Neurological: Alert, Oriented x3, Cranial nerves II-XII grossly intact, Normal Strength, Normal Sensation, Normal Gait Psychological: Normal affect Diagnostic/Tx/Re-eval Clinical Impression(s) from Imaging Studies Elbow X-Ray 01/14/19 14:04 IMPRESSION: No fracture or dislocation. Electronically Signed: Arnie Serna, at 14:24 EDT Tel , Service support , - Medical Decision Making Patient reassured, he is likely having muscular pain. There is no evidence for venous thrombosis or bony/joint abnormality on radiography. Supportive care advised and close the patient follow-up if he has persistent problems after a week or so. Advised to rest it relatively as well. ED Disposition - Plan for ED Patient: Disposition: Home or Assisted Living Diagnosis: Strain of right elbow and forearm Instructions: ED Sprain Elbow Referrals: Alexey Mayberry MD [Primary Care Provider] - 1 Week if not improving
== END 2019-01-14 15:22 | disposition home or self-care (01) ==
PROVIDERS: Emergency Provider Emergency Medicine; Family Provider Internal Medicine; PCP Internal Medicine
DX: S56.911A Strain of unspecified muscles, fascia and tendons at forearm level, right arm, initial encounter (principal); E78.5 Hyperlipidemia, unspecified; I25.10 Atherosclerotic heart disease of native coronary artery without angina pectoris; I25.5 Ischemic cardiomyopathy; I25.2 Old myocardial infarction; J44.9 Chronic obstructive pulmonary disease, unspecified; F17.200 Nicotine dependence, unspecified, uncomplicated; Z86.711 Personal history of pulmonary embolism; Z88.6 Allergy status to analgesic agent; Z95.5 Presence of coronary angioplasty implant and graft; X58.XXXA Exposure to other specified factors, initial encounter; Y93.64 Activity, baseball; Y92.9 Unspecified place or not applicable; Y99.9 Unspecified external cause status
CPT/HCPCS: 73080; 99282

== ENCOUNTER 2019-01-22 13:35 | Emergency (ER) | payer MEDICARE, MEDICAID, SELFPAY ==
[2019-01-22 13:36] VITALS: BP 111/87; PULSE 101; RESP 16; TEMP 36.9; O2SAT 97; BMI 22.9
--- NOTE | 2019-01-22 14:29 | RAD_ITS ---
STUDY: X-RAY - LEFT HAND REASON FOR EXAM: Male, 58 years old. Pain following injury. TECHNIQUE: 3 view(s) of the hand. COMPARISON: None. FINDINGS: Normal radiocarpal articulation. Normal distal radioulnar joint. Normal visualized carpal bones. Normal carpal articulations Normal carpometacarpal articulation of the thumb. Normal second through fifth carpometacarpal joints. Normal metacarpi. Normal metacarpophalangeal joint of the thumb. Normal interphalangeal joint of the thumb. Normal proximal and distal phalanges of the thumb. Normal metacarpophalangeal joints of the second through fifth fingers. Normal proximal and distal interphalangeal joints of the second through fifth fingers. Normal phalanges of the second through fifth fingers. The soft tissue structures are unremarkable. RAD/Hand Min 3 Views IMPRESSION: Normal x-ray examination of the hand. Electronically Signed: Gerardo Ruby, at 15:03 EDT , Service support ,
--- NOTE | 2019-01-22 14:30 | ED.DCSUM_ITS ---
- ER Visit Summary Date of Service: 01/22/19 Chief Complaint: [] Left hand injury yesterday playing softball slid into base History of Present Illness: The patient is a 58 M [] slid into base palm opened yesterday has pain really the palmar surface of the left hand no numbness weakness paresthesias no loss of function no other complaints other injuries prior history for heart disease AR on Plavix Physical Examination: [] His general physical exam is entirely unremarkable his only complaint is the hand, The left hand there is a vague discomfort over the thenar and hyperthenar regions palmar side there is no obvious instability deformity or injury the wrist function is normal thumb function hand function finger function normal capillary refill normal radial pulse normal wrist normal forearm and elbow normal Test Results: [] Emergency Department Course and Treatment: [] The left hand x-ray shows nothing acute I did explain the patient the concept of an occult injury he will be discharged with a Velcro wrist splint at his request, [place] as a rescue medicine Tylenol is not effective in the follow-up as found physicians for further management Treatment Plan: [] Disposition: [] Home stable Impression: [] Left hand injury This note was generated with [employer] dictation software. It may contain incorrect words, spelling, and punctuation that were not noted in review of the chart prior to signing ED Disposition - Plan for ED Patient: Referrals: Alexey Mayberry MD [Primary Care Provider] -
--- NOTE | 2019-01-22 15:55 | ED.DEP ---
ED Disposition - Plan for ED Patient: Instructions: ED Contusion Upper Ext Referrals: Alexey Mayberry MD [Primary Care Provider] -
--- NOTE | 2019-01-22 15:56 | ED.DEP ---
ED Disposition - Plan for ED Patient: Instructions: ED Contusion Upper Ext Prescriptions: Hydrocodone Bitart/Apap 5-325 [[place] 5MG-325MG] 1 tab PO Q6H PRN PRN 3 Days #7 tab PRN Reason: Pain Referrals: Alexey Mayberry MD [Primary Care Provider] -
[2019-01-22 16:13] VITALS: BP 110/79; PULSE 83; RESP 18; O2SAT 95
== END 2019-01-22 16:23 | disposition home or self-care (01) ==
LOC: ED 14:32
PROVIDERS: Emergency Provider Emergency Medicine; Family Provider Internal Medicine; PCP Internal Medicine
DX: S69.92XA Unspecified injury of left wrist, hand and finger(s), initial encounter (principal); Y93.64 Activity, baseball; Z79.02 Long term (current) use of antithrombotics/antiplatelets; I25.10 Atherosclerotic heart disease of native coronary artery without angina pectoris; I25.2 Old myocardial infarction
CPT/HCPCS: 73130; 99283

== ENCOUNTER 2019-03-23 21:02 | Observation (INO) | payer MEDICARE, MEDICAID, SELFPAY ==
[2019-03-10 15:34] VITALS: BMI 22.6
[2019-03-23 21:03] VITALS: BP 120/79; PULSE 99; RESP 28; TEMP 36.9; O2SAT 89; BMI 22.5
[2019-03-23 21:57] VITALS: O2SAT 94
--- NOTE | 2019-03-23 22:25 | EKG12_ITS ---
Test Reason : SOB Blood Pressure : / mmHG Vent. Rate : 090 BPM Atrial Rate : 090 BPM P-R Int : 120 ms QRS Dur : 074 ms QT Int : 366 ms P-R-T Axes : 050 -06 034 degrees QTc Int : 447 ms Sinus rhythm with occasional Premature ventricular complexes Inferior infarct (cited on or before 01-JUL-2018), age undetermined Abnormal ECG Confirmed by BS ESCOBAR MD ([id number]), web editor MARI LAWSON ([id number]) on 03/25/2019 1:41:18 PM Referred By: AXEL Confirmed By:SB ESCOBAR MD
[2019-03-23 22:38] LABS: Absolute Neutrophil Count 6.5 X10^3/uL (2.0-7.7); Basophil# 0.05 X10^3/uL; Basophil% 0.5 % (0-1); Eosinophil# 0.51 X10^3/uL; Eosinophils% 5.3 % (0-5); Hematocrit 42.1 % (40-54); Hemoglobin 14.3 g/dL (13.0-16.5); Lymphocyte % 16.6 % (19-41); Mean Corpuscular Hgb 30.4 pg (27.0-32.0); Mean Corpuscular Volume 89.4 fL (80-94); Mean Platelet Vol. 9.6 fl (6.2-12.0); Monocyte# 0.92 X10^3/uL; Monocyte% 9.5 % (0-10); NRBC Flagged by Analyzer 0 % (0-5); Neutrophil # 6.48 X10^3/uL (2.7-7.7); Neutrophil % 67.3 % (47-70); Platelet Count 281 K/mm3 (150-450); RBC Distribution Width CV 13.1 % (11.6-14.6); RBC Distribution Width SD 43.6 fl (35.1-43.9); Red Blood Count 4.71 M/mm3 (4.6-6.2); White Blood Count 9.6 K/mm3 (4.4-11.0)
[2019-03-23] MEDS: 0.9% Normal Saline 1,000 ML 150 ML IV (22:40)
[2019-03-23] MEDS: MethylPREDNISolone 125 MG/2 ML Vial IV (22:40)
[2019-03-23 22:42] LABS: International Normalized Ratio 1.1; Prothrombin Time (Protime)PT. 13.7 SECONDS (11.7-14.9)
[2019-03-23 22:43] LABS: Partial Thromboplast Time 36.9 Seconds (24.1-36.2)
[2019-03-23 22:51] LABS: AST(SGOT) 13 U/L (15-37); Alanine Aminotransfer ALT/SGPT 13 U/L (16-61); Albumin, Serum 3.5 g/dL (3.2-5.0); Alkaline Phosphatase 120 U/L (45-117); Anion Gap 8 (5-15); BUN 12 mg/dL (7-18); Bilirubin, Direct 0.11 mg/dL (0.00-0.30); Calcium,Total 8.6 mg/dL (8.5-10.1); Chloride 106 mmol/L (98-107); Creatinine, Serum 0.93 mg/dL (0.70-1.30); EST Glomerular Filtration Rate 89 mL/min (>60); Est Glom Filt Rate - Afr Amer 108 mL/min (>60); Estimated Creatinine Clearance 83.21 ml/min; Globulin 3.6 g/dL (2.2-4.2); Glucose 95 mg/dL (74-106); Potassium 3.8 mmol/L (3.5-5.1); Protein, Total 7.1 g/dL (6.4-8.2); Sodium Level 137 mmol/L (136-145)
[2019-03-23 23:00] VITALS: PULSE 97; RESP 22; O2SAT 93
[2019-03-23] MEDS: Ipratropium/Albuterol Sulfate 3 ML AMPUL.NEB INHALATION (23:00)
[2019-03-23] MEDS: Albuterol 2.5 MG/3 ML VIAL.NEB. INHALATION ×3 (23:00→23:15)
[2019-03-23 23:02] VITALS: BP 120/78; PULSE 95; RESP 18; O2SAT 99
--- NOTE | 2019-03-23 23:02 | RAD_ITS ---
STUDY: X-RAY CHEST REASON FOR EXAM: Male, 58 years old. Dyspnea TECHNIQUE: Frontal and lateral views of the chest. COMPARISON: 11/21/2018, 07/01/2018 FINDINGS: Stable faint density projects over the left lung base. Consider CT correlation if clinically indicated. Pulmonary hyperinflation. There is no demonstrated pleural abnormality. Normal size heart. Normal mediastinum and winnie. Normal visualized pulmonary arteries. Normal visualized aortic arch and descending thoracic aorta. Normal visualized thoracic spine. Remote left rib trauma. There is no demonstrated abnormality of the visualized soft tissue structures of the upper abdomen. RAD/Chest PA and Lateral IMPRESSION: Stable faint density projects over the left lung base. Consider CT correlation if clinically indicated. Pulmonary hyperinflation. Electronically Signed: Sergio Maria MD at 23:33 EDT Tel , Service support ,
[2019-03-23 23:15] VITALS: PULSE 98; RESP 20
[2019-03-24] VITALS (9 sets, daily range): BP systolic 108–126; BP diastolic 72–84; PULSE 78–101; RESP 16–20; TEMP 36.6–36.8; O2SAT 93–96; BMI 21.9; BMI 22.0
--- NOTE | 2019-03-24 00:03 | ED.VISSUMM ---
- ER Visit Summary Date of Service: 03/24/19 Chief Complaint: Shortness of breath History of Present Illness: The patient is a 58 M who states that today while him from the store he developed shortness of breath. He has had no relief in his home aerosols and MDI. He notes cough with sputum production but notes that the sputum is not really different than his chronic sputum production. He is a half a pack a day smoker. He carries a diagnosis of COPD. He sees pulmonology at the [facility] in [place]. Also has a known cardiac history. Physical Examination: Afebrile heart rate 99 respirations 28 with a pulse ox of 89% on room air upon arrival blood pressure stable 120/79 Gen: Well-nourished well-developed Head: Normocephalic atraumatic Eyes: [place] EOMI ENT: TMs clear no rhinorrhea moist mucous membranes Neck: Supple no lymphadenopathy no JVD nontender CVS: Regular rate rhythm no murmurs normal S1-S2 Respiratory: Patient with conversational dyspnea. His audible rhonchi and wheezing. Abdomen: Soft nontender nondistended normal bowel sounds no masses Back: Nontender Extremity: Nontender no edema Skin: Normal color no rash Neuro: alert orientated ?3 CN II-XII intact normal strength sensation reflexes gait cerebellar Psych: Normal affect normal mood Test Results: Chest x-ray negative for infiltrate. White count is normal. Troponin negative. EKG sinus at a rate of 90. Emergency Department Course and Treatment: Patient received breathing treatments and supplemental oxygen. Repeat examination shows improved aeration but still with rhonchi and some wheeze. I ambulated him and he stays around 91% on room air be significantly tachycardic at 136. Patient received IV Solu-Medrol. At this time no fever normal white blood cell count and no infiltrate I am going to hold off on antibiotics. Impression: 1. COPD exacerbation This note was generated with [employer] dictation software. It may contain incorrect words, spelling, and punctuation that were not noted in review of the chart prior to signing ED Disposition - Plan for ED Patient: Referrals: Alexey Mayberry MD [Primary Care Provider] -
[2019-03-24 00:49] LABS: Lactic Acid 1.7 mmol/L (0.4-2.0)
--- NOTE | 2019-03-24 02:42 | PCM.HP.STD ---
Problem List (1) Presence of stent in coronary artery Status: Chronic Comment: PTCA and stenting RCA 06/27/2008 at [facility]; (2) Old myocardial infarction Status: Chronic (3) Acute on chronic respiratory failure with hypoxemia Status: Acute (4) HLD (hyperlipidemia) Status: Chronic Qualifiers: (5) COPD (chronic obstructive pulmonary disease) Status: Chronic History of Present Illness Date of Admission: 03/24/19 Chief Complaint: Shortness of breath The patient is a 58 year old M with a PMH as below who presents with shortness of breath. He states that it really started a few days ago, but it was keeping it at bay with his albuterol and nebulizers. He did see his PCP here in town and at the time he had some wheezing but did not have any adjustment to his medications, or any addition of steroids. On Saturday he did fine during the day even and being out in the heat and fishing, and then yesterday he became short of breath after running to [place] shopping. In the ER he was found to have significant wheezing as well as pulse ox on room air down to 89% and was started on oxygen after being given a breathing treatment and a bolus dose of steroids. He has been having a productive cough with yellowish-green sputum however he denies any fevers, chills, and has no leukocytosis on admission labs. Past Medical History Past Medical History (Chronic Problems): Chronic Problems (Last Reviewed 09/05/18 @ 11:36 by Sierra Ohara) Paroxysmal atrial tachycardia (Chronic) Paroxysmal ventricular tachycardia (Chronic) Presence of stent in coronary artery (Chronic ~06/27/08) PTCA and stenting RCA 06/27/2008 at [facility]; Old myocardial infarction (Chronic) Atherosclerotic heart disease of [place] coronary artery without angina pectoris (Chronic) PTCA and stenting RCA 06/27/2008 at [facility]; Ischemic cardiomyopathy (Chronic) HLD (hyperlipidemia) (Chronic) H/O percutaneous transluminal coronary angioplasty (Chronic) PTCA and stenting RCA 06/27/2008 at [facility]; COPD (chronic obstructive pulmonary disease) (Chronic) 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) Nicotine abuse (Chronic) History of pulmonary embolism (Chronic) Medical History: Medical History (Last Reviewed 09/05/18 @ 11:36 by Sierra Ohara) Paroxysmal atrial tachycardia (Chronic) I47.1 Paroxysmal ventricular tachycardia (Chronic) I47.2 Premature ventricular contraction (Acute) I49.3 Presence of stent in coronary artery (Chronic) Onset Date: ~06/27/08 Z95.5 PTCA and stenting RCA 06/27/2008 at [facility]; Old myocardial infarction (Chronic) I25.2 Atherosclerotic heart disease of [place] coronary artery without angina pectoris (Chronic) I25.10 PTCA and stenting RCA 06/27/2008 at [facility]; Ischemic cardiomyopathy (Chronic) I25.5 HLD (hyperlipidemia) (Chronic) E78.5 COPD (chronic obstructive pulmonary disease) (Chronic) J44.9 BPH (benign prostatic hyperplasia) N40.0 CAD (coronary artery disease) (Inactive) I25.10 PTCA and stenting RCA 06/27/2008 at [facility]; Allergies latex Allergy (Verified 03/23/19 21:06) Rash varenicline tartrate [From Chantix] Allergy (Verified 03/23/19 21:06) Hives aspirin Adverse Reaction (Verified 03/23/19 21:06) Upset Stomach Home Medications: Ambulatory Orders Medication Instructions Recorded Clopidogrel Bisulfate [Plavix] 75 mg PO QHS 06/16/13 Levocetirizine Dihydrochloride 5 mg PO DAILY 07/12/15 [Xyzal] Cholecalciferol (VIT D3) [Vitamin 2,000 units PO QHS 03/25/16 D3] Montelukast Sodium [Singulair] 10 mg PO QHS 03/25/16 Omeprazole [Prilosec] 40 mg PO DAILY 05/13/17 Aspirin [Aspirin, Baby] 81 mg PO DAILY@0800 06/20/17 cyanocobalamin (vit B-12) 1,000 1,000 mcg PO QDAY 10/15/17 mcg tablet Cetirizine HCl [Zyrtec] 10 mg PO QHS 12/14/17 Mometasone/Formoterol [Dulera 200 2 puff IH BID 06/30/18 Mcg/5 Mcg Inhaler] trazodone 50 mg tablet 75 mg PO QHS tab 09/05/18 atorvastatin 20 mg tablet 20 mg PO DAILY #90 tab 12/02/18 albuterol sulfate HFA 90 2 puff INHALATION Q2H PRN #18 g 03/10/19 mcg/actuation aerosol inhaler Surgical History: Surgical History (Last Reviewed 09/05/18 @ 11:36 by Sierra Ohara) H/O percutaneous transluminal coronary angioplasty (Chronic) Z98.61 PTCA and stenting RCA 06/27/2008 at [facility]; History of hernia repair Z98.890, Z87.19 History of left hip replacement Z96.642 Surgical History: angioplasty, - Psychiatric History: No pertinent psych hx Smoking Status: Current every day smoker Tobacco Use: Cigarettes Alcohol: None Drugs: None - *Family History Maternal Family History: Family History (Last Reviewed 09/05/18 @ 11:36 by Sierra Ohara) Father CAD (coronary artery disease) Heart disease Myocardial infarction Mother Diabetes Brother Hypertension History Items: Diabetes Paternal Family History: Family History (Last Reviewed 09/05/18 @ 11:36 by Sierra Ohara) Father CAD (coronary artery disease) Heart disease Myocardial infarction Mother Diabetes Brother Hypertension History Items: Heart Disease Review of Systems Constitutional: Denies: Chills, Fever, Weight Change HEENT: Denies: Head Aches, Sinus Congestion, Sinus Drainage Cardiovascular: Denies: Chest Pain, Palpitations Respiratory: Reports: Cough, Shortness of Breath, Sputum production. Denies: Shortness of breath at rest Gastrointestinal: Denies: Abdominal Pain, Nausea, Vomiting Genitourinary: Denies: Dysuria Musculoskeletal: Denies: Joint Pain, Joint Tenderness Skin: Denies: Rash, Wounds Neurological: Denies: Numbness, Tingling, Focal weakness Psychiatric: Denies: Anxiety, Depression Hematologic/ Lymphatic: Denies: Easy Bruising, Easy Bleeding VTE Information - Inpt Only VTE Present on Admission: No - Physical Exam General: Alert, Oriented x3, Cooperative, No apparent distress HEENT: Atraumatic, PERRLA, EOMI, Normocephalic Oral: Moist Mucosa Neck: Supple, No JVD Lungs: Normal air movement, Diminished, Wheezes Cardiovascular: Regular rate, Regular Rhythm, Normal S1, Normal S2, No murmurs Abdomen: Soft, Non Tender, Non-Distended, No Hepato-splenomegaly Extremities: No edema, Capillary Refill Less than 3 Seconds Skin: No rashes, No breakdown Neurological: Neuro grossly intact, Sensory exam intact to light touch and pain Psych/Mental Status: Normal Affect, Appropriate Vital Signs Temp Pulse Resp BP Pulse Ox 98.3 F 101 H 18 116/73 93 03/24/19 01:06 03/24/19 01:06 03/24/19 01:06 03/24/19 01:08 03/24/19 01:06 Oxygen Flow Rate (L/min) 1 Oxygen Delivery Method Room Air Weight: 144 lb 6.444 oz Body Mass Index (BMI) 21.9 Laboratory Tests Past 24 Hrs 03/23/19 03/23/19 03/23/19 22:05 22:05 22:05 WBC 9.6 RBC 4.71 Hgb 14.3 Hct 42.1 MCV 89.4 MCH 30.4 MCHC 34.0 RDW Std Deviation 43.6 RDW Coeff of [place] 13.1 Plt Count 281 MPV 9.6 Immature Gran % (Auto) 0.800 Neut % (Auto) 67.3 Lymph % (Auto) 16.6 L [place] % (Auto) 9.5 Eos % (Auto) 5.3 H Baso % (Auto) 0.5 Absolute Neuts (auto) 6.5 Absolute Lymphs (auto) 1.60 Absolute Nucleated RBC 0.00 Nucleated RBC % 0 PT 13.7 INR 1.1 APTT 36.9 H Sodium 137 Potassium 3.8 Chloride 106 Carbon Dioxide 23.0 Anion Gap 8 BUN 12 Creatinine 0.93 Estim Creat Clear Calc 83.21 Est GFR (MDRD) Af Amer 108 Est GFR (MDRD) Non-Af 89 BUN/Creatinine Ratio 13.0 Glucose 95 Lactic Acid Calcium 8.6 Total Bilirubin 0.50 Direct Bilirubin 0.11 AST 13 L ALT 13 L Alkaline Phosphatase 120 H Troponin I < 0.015 Total Protein 7.1 Albumin 3.5 Globulin 3.6 03/24/19 00:15 WBC RBC Hgb Hct MCV MCH MCHC RDW Std Deviation RDW Coeff of [place] Plt Count MPV Immature Gran % (Auto) Neut % (Auto) Lymph % (Auto) [place] % (Auto) Eos % (Auto) Baso % (Auto) Absolute Neuts (auto) Absolute Lymphs (auto) Absolute Nucleated RBC Nucleated RBC % PT INR APTT Sodium Potassium Chloride Carbon Dioxide Anion Gap BUN Creatinine Estim Creat Clear Calc Est GFR (MDRD) Af Amer Est GFR (MDRD) Non-Af BUN/Creatinine Ratio Glucose Lactic Acid 1.7 Calcium Total Bilirubin Direct Bilirubin AST ALT Alkaline Phosphatase Troponin I Total Protein Albumin Globulin Assessment/Plan All Active Problems (Last Reviewed 09/05/18 @ 11:36 by Sierra Ohara) Premature ventricular contraction (Acute) Septic shock (Acute) HCAP (healthcare-associated pneumonia) (Acute) Acute respiratory failure (Acute) Hypoxemia (Acute) Acute on chronic respiratory failure with hypoxemia (Acute) Pulmonary embolism (Resolved) 1. COPD exacerbation -Initially in the ER his pulse ox on room air was 89% and he corrected to 99% on 2 L -On my exam he is off oxygen and 93% on room air -Continue with his home medications as well as duo nebs every 4 while awake and IV steroids -Blood cultures are pending lactic acid is 1.7 and there is no leukocytosis or fever -Continue with Shiloh Driscoll 2. CAD status post stent/HTN/HLD -Stable, blood pressures are normal -Continue with aspirin, Plavix, Lipitor 3. GERD -Stable -Continue with PPI DVT: Lovenox Code Visit OBSV E&M: 18850 Initial observation care L2
[2019-03-24] MEDS: Enoxaparin 40 MG/0.4 ML Syringe SC (05:32)
[2019-03-24] MEDS: 0.9% NaCl Peripheral Flush Adult/Peds IV (05:33)
[2019-03-24 05:35] LABS: Absolute Lymphocyte Count 0.29 X10^3/uL (0.83-4.51); Basophil# 0.01 X10^3/uL; Basophil% 0.1 % (0-1); Eosinophil# 0.01 X10^3/uL; Eosinophils% 0.1 % (0-5); Hemoglobin 14.6 g/dL (13.0-16.5); Lymphocyte # 0.29 X10^3/ul (4.0); Lymphocyte % 3.2 % (19-41); Mean Corp Hgb Conc 32.4 g/dL (32-36); Mean Corpuscular Hgb 29.6 pg (27.0-32.0); Mean Corpuscular Volume 91.3 fL (80-94); Mean Platelet Vol. 9.4 fl (6.2-12.0); Monocyte# 0.05 X10^3/uL; Monocyte% 0.6 % (0-10); NRBC Flagged by Analyzer 0 % (0-5); Neutrophil # 8.58 X10^3/uL (2.7-7.7); Neutrophil % 95.4 % (47-70); POSITIVE DIFFERENTIAL YES; Platelet Count 310 K/mm3 (150-450); RBC Distribution Width CV 13.2 % (11.6-14.6); RBC Distribution Width SD 44.3 fl (35.1-43.9); Red Blood Count 4.93 M/mm3 (4.6-6.2)
[2019-03-24 05:41] LABS: Differential Indicated SCAN CRITERIA MET
[2019-03-24 05:54] LABS: Anion Gap 9 (5-15); BUN 14 mg/dL (7-18); BUN/Creat Ratio 14.6 RATIO (10-20); Calcium,Total 8.9 mg/dL (8.5-10.1); Chloride 108 mmol/L (98-107); Creatinine, Serum 0.96 mg/dL (0.70-1.30); EST Glomerular Filtration Rate 85 mL/min (>60); Est Glom Filt Rate - Afr Amer 103 mL/min (>60); Estimated Creatinine Clearance 78.65 ml/min; Glucose 172 mg/dL (74-106); Potassium 4.5 mmol/L (3.5-5.1); Sodium Level 141 mmol/L (136-145)
[2019-03-24 06:18] LABS: Differential Comment SCANNED
[2019-03-24] MEDS: Ipratropium/Albuterol Sulfate 3 ML AMPUL.NEB INHALATION (07:01)
[2019-03-24] MEDS: Aspirin 81 MG TAB.CHEW PO (09:40)
[2019-03-24] MEDS: Pantoprazole Sodium 40 MG Tablet PO (09:41)
--- NOTE | 2019-03-24 11:21 | DCINST_ITS ---
You will use the following diet at home:: Cardiac Your food should be the consistency of: Regular Discharge Activity: Return to Normal Activity Weight Bearing Status: Full weight bearing Call your doctor if you observe: Fever of 101 or Higher, Shortness of breath, Dizziness, Fainting spells, Chest pain, Increased palpitations (irregular heartbeat), Uncontrolled pain Allergies/Adverse Reactions: Allergies latex Allergy (Verified 03/23/19 21:06) Rash varenicline tartrate [From Chantix] Allergy (Verified 03/23/19 21:06) Hives aspirin Adverse Reaction (Verified 03/23/19 21:06) Upset Stomach Medications to take at Discharge Clopidogrel Bisulfate [Plavix] 75 mg PO QHS 06/16/13 Levocetirizine Dihydrochloride [Xyzal] 5 mg PO DAILY 07/12/15 Cholecalciferol (VIT D3) [Vitamin D3] 2,000 units PO QHS 03/25/16 Montelukast Sodium [Singulair] 10 mg PO QHS 03/25/16 Omeprazole [Prilosec] 40 mg PO DAILY 05/13/17 Aspirin [Aspirin, Baby] 81 mg PO DAILY@0800 06/20/17 cyanocobalamin (vit B-12) 1,000 mcg tablet 1,000 mcg PO QDAY 10/15/17 Cetirizine HCl [Zyrtec] 10 mg PO QHS 12/14/17 Mometasone/Formoterol [Dulera 200 Mcg/5 Mcg Inhaler] 2 puff IH BID 06/30/18 trazodone 50 mg tablet 75 mg PO QHS tab 09/05/18 atorvastatin 20 mg tablet 20 mg PO DAILY #90 tab 12/02/18 albuterol sulfate HFA 90 mcg/actuation aerosol inhaler 2 puff INHALATION Q2H PRN #18 g 03/10/19 Prednisone [Deltasone] 40 mg PO DAILY #10 tab 03/24/19 The following prescriptions were given: Prednisone [Deltasone] 40 mg PO DAILY #10 tab Transmission Status: Sent to [facility]/pharmacy #[id number] Primary Care Physician: Alexey Mayberry MD [Primary Care Provider] - Please follow up with your Primary Care Physician in: 1-2 weeks. Test Results: Test results from this visit will be discussed in further detail at your follow- up appointment, if applicable.
--- NOTE | 2019-03-24 12:18 | PCM.DC.SUM ---
Discharge Date and Diagnosis Date of Admission: 03/24/19 Date of Discharge: 03/24/19 - Primary Discharge Diagnosis #1 acute COPD exacerbation. #2 hypoxia. - Secondary Discharge Diagnosis Chronic Problems (Last Reviewed 09/05/18 @ 11:36 by Sierra Ohara) Paroxysmal atrial tachycardia (Chronic) Paroxysmal ventricular tachycardia (Chronic) Presence of stent in coronary artery (Chronic ~06/27/08) PTCA and stenting RCA 06/27/2008 at [place]; Old myocardial infarction (Chronic) Atherosclerotic heart disease of [place] coronary artery without angina pectoris (Chronic) PTCA and stenting RCA 06/27/2008 at [place]; Ischemic cardiomyopathy (Chronic) HLD (hyperlipidemia) (Chronic) H/O percutaneous transluminal coronary angioplasty (Chronic) PTCA and stenting RCA 06/27/2008 at [place]; COPD (chronic obstructive pulmonary disease) (Chronic) 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 Consider CT correlation if clinically indicated. Pulmonary hyperinflation. Electronically Signed: Sergio Maria MD at 23:33 EDT Tel , Service support , Operations: None Procedures: None Summary of Care Provided: Patient seen and examined on the day of discharge and appeared to be stable to be discharged home. He reported significant improvement of his shortness of breath and wheezing and he has been on room air. Walking pulse oximeter performed this morning and his pulse ox was 95% on room air with ambulation. His other vital signs were stable. The patient is a 58 year old M admitted because of worsening shortness of breath with cough and wheezing, found to have mild acute COPD exacerbation. His chest x-ray showed no acute findings, pneumonia ruled out. Previous chest x-ray reviewed as well and there was no significant change from the x-ray during this admission. X-ray report that was done by radiology mentioned that there is a stable faint density projects over the left lung base. Again, I reviewed the previous chest x-rays and to me, no difference and no new changes. Patient was treated with IV steroids and bronchodilators. With treatment, his symptoms dramatically improved within few hours and he was able to come off oxygen. In the ED, his pulse ox was 89% on room air at rest and he was dyspneic and tachypneic. On the day of discharge, walking pulse oximeter performed and his pulse ox was 95% on room air with ambulation. Patient denied any worsening symptoms with ambulation as well. Patient discharged home in a stable medical condition, discharged on fixed dose of prednisone 40 mg p.o. daily for 5 days, continued on his previous home medications including bronchodilators, recommended follow-up with PCP in 1 to 2 weeks. - Physical Exam General: Alert, Oriented x3, Cooperative, No apparent distress HEENT: Atraumatic, PERRLA, EOMI, Normocephalic Oral: Moist Mucosa, No Gingival or Mucosal Lesions/ Ulcerations Neck: Supple, No JVD, Negative Carotid Bruits, Trachea Midline, Thyroid Normal Size and Texture Lungs: Clear to auscultation, Normal air movement, No rhonchi, No wheeze, No rales, Diminished Cardiovascular: Regular rate, Regular Rhythm, Normal S1, Normal S2, PMI Normal Abdomen: Bowel Sounds Present, Soft, Non Tender, Non-Distended, No Hepato-splenomegaly Extremities: No clubbing, No cyanosis, No edema Skin: No rashes, No breakdown Lymphatic: No Cervical, Supraclavicular, or Inguinal Adenopathy Neurological: Cranial nerves II-XII grossly intact, Motor Exam 5/5 strength throughout Psych/Mental Status: Normal Affect, Appropriate Vital Signs Temp Pulse Resp BP Pulse Ox 98 F 86 18 113/72 95 03/24/19 09:39 03/24/19 11:47 03/24/19 11:47 03/24/19 09:39 03/24/19 11:47 Oxygen Flow Rate (L/min) 2 Oxygen Delivery Method Room Air Weight: 144 lb 6.444 oz Body Mass Index (BMI) 21.9 Intake and Output for Last 24 Hours 03/22/19 03/23/19 03/24/19 23:59 23:59 23:59 Intake Total 200 / 200 Balance 200 / 200 Laboratory Tests Past 24 Hrs 03/23/19 03/23/19 03/23/19 22:05 22:05 22:05 WBC 9.6 RBC 4.71 Hgb 14.3 Hct 42.1 MCV 89.4 MCH 30.4 MCHC 34.0 RDW Std Deviation 43.6 RDW Coeff of [place] 13.1 Plt Count 281 MPV 9.6 Immature Gran % (Auto) 0.800 Neut % (Auto) 67.3 Lymph % (Auto) 16.6 L [place] % (Auto) 9.5 Eos % (Auto) 5.3 H Baso % (Auto) 0.5 Absolute Neuts (auto) 6.5 Absolute Lymphs (auto) 1.60 Absolute Nucleated RBC 0.00 Nucleated RBC % 0 Differential Comment PT 13.7 INR 1.1 APTT 36.9 H Sodium 137 Potassium 3.8 Chloride 106 Carbon Dioxide 23.0 Anion Gap 8 BUN 12 Creatinine 0.93 Estim Creat Clear Calc 83.21 Est GFR (MDRD) Af Amer 108 Est GFR (MDRD) Non-Af 89 BUN/Creatinine Ratio 13.0 Glucose 95 Lactic Acid Calcium 8.6 Total Bilirubin 0.50 Direct Bilirubin 0.11 AST 13 L ALT 13 L Alkaline Phosphatase 120 H Troponin I < 0.015 Total Protein 7.1 Albumin 3.5 Globulin 3.6 03/24/19 03/24/19 03/24/19 00:15 05:15 05:15 WBC 9.0 RBC 4.93 Hgb 14.6 Hct 45.0 MCV 91.3 MCH 29.6 MCHC 32.4 RDW Std Deviation 44.3 H RDW Coeff of [place] 13.2 Plt Count 310 MPV 9.4 Immature Gran % (Auto) 0.600 Neut % (Auto) 95.4 H Lymph % (Auto) 3.2 L [place] % (Auto) 0.6 Eos % (Auto) 0.1 Baso % (Auto) 0.1 Absolute Neuts (auto) Not Reportable Absolute Lymphs (auto) 0.29 L Absolute Nucleated RBC 0.00 Nucleated RBC % 0 Differential Comment SCANNED PT INR APTT Sodium 141 Potassium 4.5 Chloride 108 H Carbon Dioxide 24.0 Anion Gap 9 BUN 14 Creatinine 0.96 Estim Creat Clear Calc 78.65 Est GFR (MDRD) Af Amer 103 Est GFR (MDRD) Non-Af 85 BUN/Creatinine Ratio 14.6 Glucose 172 H Lactic Acid 1.7 Calcium 8.9 Total Bilirubin Direct Bilirubin AST ALT Alkaline Phosphatase Troponin I Total Protein Albumin Globulin Discharge Activity: Return to Normal Activity Weight Bearing Status: Full weight bearing Call your doctor if you observe: Fever of 101 or Higher, Shortness of breath, Dizziness, Fainting spells, Chest pain, Increased palpitations (irregular heartbeat), Uncontrolled pain Home Medications: Medications to take at Discharge Clopidogrel Bisulfate [Plavix] 75 mg PO QHS 06/16/13 Levocetirizine Dihydrochloride [Xyzal] 5 mg PO DAILY 07/12/15 Cholecalciferol (VIT D3) [Vitamin D3] 2,000 units PO QHS 03/25/16 Montelukast Sodium [Singulair] 10 mg PO QHS 03/25/16 Omeprazole [Prilosec] 40 mg PO DAILY 05/13/17 Aspirin [Aspirin, Baby] 81 mg PO DAILY@0800 06/20/17 cyanocobalamin (vit B-12) 1,000 mcg tablet 1,000 mcg PO QDAY 10/15/17 Cetirizine HCl [Zyrtec] 10 mg PO QHS 12/14/17 Mometasone/Formoterol [Dulera 200 Mcg/5 Mcg Inhaler] 2 puff IH BID 06/30/18 trazodone 50 mg tablet 75 mg PO QHS tab 09/05/18 atorvastatin 20 mg tablet 20 mg PO DAILY #90 tab 12/02/18 albuterol sulfate HFA 90 mcg/actuation aerosol inhaler 2 puff INHALATION Q2H PRN #18 g 03/10/19 Prednisone [Deltasone] 40 mg PO DAILY #10 tab 03/24/19 Following Prescrptions Were Given to Patient: Prednisone [Deltasone] 40 mg PO DAILY #10 tab Transmission Status: Received by [facility]/pharmacy #[id number] Primary Care Physician: Alexey Mayberry MD [Primary Care Provider] - Please follow up with your Primary Care Physician in: 1-2 weeks. Disposition: Home Minutes spent on discharge:: 24 Patient Condition:: Stable Medical Necessity - Tobacco Use Smoking Status: Current every day smoker Tobacco Use: Cigarettes Meaningful Use Info Meaningful Use Diagnoses (Choose all that apply): None applicable Code Visit OBSV E&M: 18177 Observ/hosp same date L1
== END 2019-03-24 11:21 | disposition home or self-care (01) ==
LOC: ED 22:34 → PCU 03-24 00:42
PROVIDERS: Admitting Provider Family Medicine; Emergency Provider Emergency Medicine; Family Provider Internal Medicine; PCP Internal Medicine; Visit Provider Hospitalist
DX: J44.1 Chronic obstructive pulmonary disease with (acute) exacerbation (principal); I25.2 Old myocardial infarction; E78.5 Hyperlipidemia, unspecified; I25.10 Atherosclerotic heart disease of native coronary artery without angina pectoris; J96.21 Acute and chronic respiratory failure with hypoxia; N40.0 Benign prostatic hyperplasia without lower urinary tract symptoms; F17.210 Nicotine dependence, cigarettes, uncomplicated; K21.9 Gastro-esophageal reflux disease without esophagitis; Z95.5 Presence of coronary angioplasty implant and graft; Z86.711 Personal history of pulmonary embolism; Z79.899 Other long term (current) drug therapy; Z79.02 Long term (current) use of antithrombotics/antiplatelets; Z79.82 Long term (current) use of aspirin
CPT/HCPCS: 36415; 71046; 80048; 80076; 83605; 84484; 85025; 85610; 85730; 87040; 93005; 94640; 96361; 96372; 96374; 96376; 99218; 99285; J7030; A4216; G0378

== ENCOUNTER 2019-05-05 23:57 | Emergency (ER) | payer MEDICARE, MEDICAID, SELFPAY ==
[2019-03-24 01:03] VITALS: BMI 21.9
[2019-05-05 23:57] VITALS: BP 124/74; PULSE 103; RESP 24; TEMP 36.6; O2SAT 95; BMI 22.5
--- NOTE | 2019-05-06 00:20 | ED.VIS.GEN ---
History of Present Illness Chief Complaint: Cough Narrative: This patient is a 58-year-old male with a history of COPD who presents with increased cough and shortness of breath. He has had increased cough since yesterday as well as some rhinorrhea. He complains of aching left-sided chest pain which is worse with palpation deep inspiration or movement. Both cough and pain have been relieved with albuterol. He is on a twice a day steroid inhaler as well. No fevers nausea vomiting. Past Medical History - Allergies and Home Meds Allergies/Adverse Reactions: Allergies latex Allergy (Verified 05/06/19 00:10) Rash varenicline tartrate [From Chantix] Allergy (Verified 05/06/19 00:10) Hives aspirin Adverse Reaction (Verified 05/06/19 00:10) Upset Stomach Primary Care Physician: Alexey Mayberry MD [Primary Care Provider] - Past Medical History: - - COPD, coronary disease Surgical History: angioplasty, - Smoking Status: Current every day smoker - Family History Maternal Family History: Family History (Last Reviewed 09/05/18 @ 11:36 by Sierra Ohara) Father CAD (coronary artery disease) Heart disease Myocardial infarction Mother Diabetes Brother Hypertension Family History: Reports: Diabetes Paternal Family History: Family History (Last Reviewed 09/05/18 @ 11:36 by Sierra Ohara) Father CAD (coronary artery disease) Heart disease Myocardial infarction Mother Diabetes Brother Hypertension Family History: Reports: Heart Disease Review of Systems All systems negative except as indicated General: Denies: Fever ENT: Reports: Rhinorrhea Cardiovascular: Reports: Chest pain Respiratory: Reports: Dyspnea, Cough. Denies: Sputum Gastrointestinal: Denies: Vomiting, Diarrhea Skin: Denies: Rash Physical Exam Vital Signs/Narrative: Vital Signs Temp Pulse Resp BP Pulse Ox 05/05/19 23:57 97.9 F 103 H 24 H 124/74 H 95 Inital Vital Signs reviewed: Yes General: Well nourished, Well developed Head: Normocephalic Eyes: EOMI ENT: Moist mucous membranes Neck: Supple Cardiovascular: - - Heart regular rate and rhythm at the time my examination heart rate low 90s. Respiratory: Chest tenderness, - - Slightly tachypneic but no distress able speak in full sentences no retractions diffuse inspiratory and expiratory wheezing no stridor Abdomen: Soft. Negative for: Tender Skin: Normal color Neurological: Alert Psychological: Normal affect Diagnostic/Tx/Re-eval Impressions Chest X-Ray 05/06/19 00:22 IMPRESSION: No evidence for focal lung consolidation change. No significant radiographic changes. Electronically Signed: Henry Yee, at 0:57 EDT Tel , Service support , 05/06/19 00:22 Chest PA and Lateral [RAD] Stat - Medical Decision Making Chest x-ray unremarkable. Patient was treated here with albuterol Atrovent aerosols as well as IV Solu-Medrol. He is clinically improved on reevaluation resting comfortably with improved air exchange and decreased wheezing. He has stable vitals. He will be discharged with prednisone and doxycycline. He was advised to follow-up as an outpatient was discharged home. He understands return for new or worsening symptoms. ED Disposition - Plan for ED Patient: Disposition: Home or Assisted Living Diagnosis: COPD exacerbation Instructions: Copd Flare Prescriptions: Doxycycline 100 mg PO BID #20 cap Prescription Printed predniSONE tablet 60 mg PO DAILY #15 tab Prescription Printed Referrals: Alexey Mayberry MD [Primary Care Provider] -
--- NOTE | 2019-05-06 00:22 | RAD_ITS ---
STUDY: X-RAY CHEST REASON FOR EXAM: Male, 58 years old. COPD, shortness of breath TECHNIQUE: PA and lateral COMPARISON: 03/23/2019 FINDINGS: The lungs are clear and demonstrate COPD changes with hyperinflation There is no demonstrated pleural abnormality. Normal size heart. Normal mediastinum and winnie. Normal visualized pulmonary arteries. Normal visualized aortic arch and descending thoracic aorta. Normal visualized thoracic spine. There are multiple old left rib fractures and old left clavicle fracture. There is no demonstrated abnormality of the visualized soft tissue structures of the upper abdomen. RAD/Chest PA and Lateral IMPRESSION: No evidence for focal lung consolidation change. No significant radiographic changes. Electronically Signed: Henry Yee, at 0:57 EDT Tel , Service support ,
[2019-05-06] MEDS: MethylPREDNISolone 125 MG/2 ML Vial IV (00:27)
[2019-05-06] MEDS: Albuterol 2.5 MG/3 ML VIAL.NEB. INHALATION (00:32)
[2019-05-06] MEDS: Ipratropium/Albuterol Sulfate 3 ML AMPUL.NEB INHALATION (00:32)
[2019-05-06 00:34] VITALS: PULSE 95; RESP 19
[2019-05-06 01:08] VITALS: BP 129/77; PULSE 92; RESP 20; O2SAT 94
== END 2019-05-06 01:14 | disposition home or self-care (01) ==
PROVIDERS: Emergency Provider Emergency Medicine; Family Provider Internal Medicine; PCP Internal Medicine
DX: J44.1 Chronic obstructive pulmonary disease with (acute) exacerbation (principal); F17.200 Nicotine dependence, unspecified, uncomplicated; Z82.49 Family history of ischemic heart disease and other diseases of the circulatory system; Z88.6 Allergy status to analgesic agent; Z91.040 Latex allergy status
CPT/HCPCS: 71046; 94640; 96374; 99284; A4216

== ENCOUNTER → 2019-05-08 07:51 | Outpatient (CLI) | payer MEDICARE, MEDICAID, SELFPAY ==
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
[2019-05-05 23:57] VITALS: BMI 22.5
== END ==
PROVIDERS: Family Provider Internal Medicine; PCP Internal Medicine; Referring Provider Internal Medicine; Visit Provider Surgery
DX: Z12.11 Encounter for screening for malignant neoplasm of colon (principal); Z53.09 Procedure and treatment not carried out because of other contraindication; J44.0 Chronic obstructive pulmonary disease with (acute) lower respiratory infection; J44.1 Chronic obstructive pulmonary disease with (acute) exacerbation; E11.9 Type 2 diabetes mellitus without complications; E78.5 Hyperlipidemia, unspecified; I10 Essential (primary) hypertension; I25.2 Old myocardial infarction; F17.210 Nicotine dependence, cigarettes, uncomplicated; Z79.02 Long term (current) use of antithrombotics/antiplatelets; Z79.82 Long term (current) use of aspirin; Z79.899 Other long term (current) drug therapy; Z88.6 Allergy status to analgesic agent; Z95.5 Presence of coronary angioplasty implant and graft; K21.9 Gastro-esophageal reflux disease without esophagitis; I25.5 Ischemic cardiomyopathy

== ENCOUNTER 2019-05-13 22:23 | Observation (INO) | payer MEDICARE, MEDICAID, SELFPAY ==
[2019-05-13 22:24] VITALS: BP 117/79; PULSE 70; RESP 18; TEMP 36.7; O2SAT 97; BMI 22.1
--- NOTE | 2019-05-13 23:31 | RAD_ITS ---
STUDY: X-RAY CHEST REASON FOR EXAM: Male, 58 years old. Dizziness TECHNIQUE: Frontal view COMPARISON: May 06 2019 FINDINGS: The lungs are clear and expanded. There is no demonstrated pleural abnormality. Normal size heart. Normal mediastinum and winnie. Normal visualized pulmonary arteries. Normal visualized aortic arch and descending thoracic aorta. Normal visualized thoracic spine. Old left clavicular injury. Old left rib fractures. There is no demonstrated abnormality of the visualized soft tissue structures of the upper abdomen. RAD/Chest 1 View (Portable) IMPRESSION: No acute pulmonary pathology of the chest. Electronically Signed: Fritz Chung DO at 23:53 EDT Tel [phone], Service support ,
--- NOTE | 2019-05-13 23:31 | EKG12_ITS ---
Test Reason : DIZZYNESS Blood Pressure : / mmHG Vent. Rate : 066 BPM Atrial Rate : 066 BPM P-R Int : 124 ms QRS Dur : 080 ms QT Int : 428 ms P-R-T Axes : 061 001 015 degrees QTc Int : 448 ms Normal sinus rhythm Inferior infarct (cited on or before 01-JUL-2018) Abnormal ECG Confirmed by PROSPER RICE, JOSE ([id number]), editorial cartoonist RAMÓN ANDRADE ([id number]) on 05/15/2019 11:46:39 AM Referred By: Alexey Mayberry Confirmed By:GALDINO CHENG MD
[2019-05-13 23:32] VITALS: O2SAT 98
--- NOTE | 2019-05-13 23:32 | ED.VIS.GEN ---
History of Present Illness Chief Complaint: Dizziness Narrative: Patient is a 58-year-old male who presents with dizziness. I recently saw him for a COPD exacerbation. He was put on steroids and doxycycline no symptoms of actually been improving. However today he developed nausea with one episode of nonbloody nonbilious emesis. He also complains of lightheadedness and dizziness today with near syncope. He states that after walking inside he became very sweaty. He does have a history of coronary disease. He denies any chest pain or shortness of breath. Past Medical History - Allergies and Home Meds Allergies/Adverse Reactions: Allergies latex Allergy (Verified 05/13/19 22:25) Rash varenicline tartrate [From Chantix] Allergy (Verified 05/13/19 22:25) Hives aspirin Adverse Reaction (Verified 05/13/19 22:25) Upset Stomach Primary Care Physician: Alexey Mayberry MD [Primary Care Provider] - Past Medical History: - - Coronary artery disease, hyperlipidemia, COPD Surgical History: angioplasty, - Smoking Status: Current every day smoker - Family History Maternal Family History: Family History (Last Reviewed 09/05/18 @ 11:36 by Sierra Ohara) Father CAD (coronary artery disease) Heart disease Myocardial infarction Mother Diabetes Brother Hypertension Family History: Reports: Diabetes Paternal Family History: Family History (Last Reviewed 09/05/18 @ 11:36 by Sierra Ohara) Father CAD (coronary artery disease) Heart disease Myocardial infarction Mother Diabetes Brother Hypertension Family History: Reports: Heart Disease Review of Systems All systems negative except as indicated General: Reports: Sweats. Denies: Fever Cardiovascular: Denies: Chest pain Respiratory: Reports: Cough. Denies: Dyspnea Gastrointestinal: Reports: Nausea, Vomiting. Denies: Abdominal pain Physical Exam Vital Signs/Narrative: Vital Signs Temp Pulse Resp BP Pulse Ox 05/13/19 22:24 98.0 F 70 18 117/79 97 Inital Vital Signs reviewed: Yes General: Well nourished, Well developed Head: Normocephalic Eyes: EOMI ENT: Moist mucous membranes Neck: Supple Cardiovascular: Regular rate, Regular rhythm Respiratory: No distress, Wheezing, - - Diffuse expiratory wheezing but no distress able speak in full sentences no increased work of breathing or retractions Abdomen: Soft Extremities: Nontender Skin: Normal color Neurological: Alert Psychological: Normal affect Diagnostic/Tx/Re-eval Impressions Chest X-Ray 05/13/19 23:31 IMPRESSION: No acute pulmonary pathology of the chest. Electronically Signed: Fritz ChungDO at 23:53 EDT Tel [phone], Service support , 05/13/19 23:31 Chest 1 View (Portable) [RAD] Stat Laboratory Results 05/13/19 05/13/19 23:43 23:43 WBC 12.4 H RBC 4.55 L Hgb 13.6 Hct 41.8 MCV 91.9 MCH 29.9 MCHC 32.5 RDW Std Deviation 47.5 H RDW Coeff of [place] 14.0 Plt Count 302 MPV 8.8 Immature Gran % (Auto) 2.200 H Neut % (Auto) 71.6 H Lymph % (Auto) 15.0 L [place] % (Auto) 9.3 Eos % (Auto) 1.4 Baso % (Auto) 0.5 Absolute Neuts (auto) 8.9 H Absolute Lymphs (auto) 1.86 Nucleated RBC % 0 Sodium 138 Potassium 3.6 Chloride 104 Carbon Dioxide 28.0 Anion Gap 6 BUN 20 H Creatinine 1.11 Estim Creat Clear Calc 68.44 Est GFR (MDRD) Af Amer 88 Est GFR (MDRD) Non-Af 72 BUN/Creatinine Ratio 18.0 Glucose 132 H Calcium 7.9 L Troponin I < 0.015 - Medical Decision Making EKG shows sinus rhythm at a rate of 66. No acute ischemic changes. Laboratory studies unremarkable, negative troponin. He has a mild leukocytosis which is likely due to his recent steroids. His lightheadedness, nausea, diaphoresis may be an atypical presentation of angina. Therefore I feel minimum he should have serial enzymes. He will be discussed with the hospitalist for admission. ED Disposition - Plan for ED Patient: Disposition: Acute Care Hospital [facility] Diagnosis: Dizziness Referrals: Alexey Mayberry MD [Primary Care Provider] -
[2019-05-13 23:49] LABS: Absolute Lymphocyte Count 1.86 X10^3/uL (0.83-4.51); Absolute Neutrophil Count 8.9 X10^3/uL (2.0-7.7); Basophil# 0.06 X10^3/uL; Basophil% 0.5 % (0-1); Eosinophil# 0.17 X10^3/uL; Eosinophils% 1.4 % (0-5); Hematocrit 41.8 % (40-54); Hemoglobin 13.6 g/dL (13.0-16.5); Lymphocyte # 1.86 X10^3/ul (4.0); Mean Corp Hgb Conc 32.5 g/dL (32-36); Mean Corpuscular Hgb 29.9 pg (27.0-32.0); Mean Corpuscular Volume 91.9 fL (80-94); Mean Platelet Vol. 8.8 fl (6.2-12.0); Monocyte# 1.16 X10^3/uL; Monocyte% 9.3 % (0-10); NRBC Flagged by Analyzer 0 % (0-5); Neutrophil % 71.6 % (47-70); Platelet Count 302 K/mm3 (150-450); RBC Distribution Width SD 47.5 fl (35.1-43.9); Red Blood Count 4.55 M/mm3 (4.6-6.2); White Blood Count 12.4 K/mm3 (4.4-11.0)
[2019-05-14] VITALS (19 sets, daily range): BP systolic 94–121; BP diastolic 61–79; PULSE 59–96; RESP 15–20; TEMP 36.3–36.6; O2SAT 94–98; BMI 22.6
[2019-05-14 00:06] LABS: Anion Gap 6 (5-15); BUN 20 mg/dL (7-18); Calcium,Total 7.9 mg/dL (8.5-10.1); Chloride 104 mmol/L (98-107); Creatinine, Serum 1.11 mg/dL (0.70-1.30); EST Glomerular Filtration Rate 72 mL/min (>60); Est Glom Filt Rate - Afr Amer 88 mL/min (>60); Estimated Creatinine Clearance 68.44 ml/min; Glucose 132 mg/dL (74-106); Potassium 3.6 mmol/L (3.5-5.1); Sodium Level 138 mmol/L (136-145)
--- NOTE | 2019-05-14 00:33 | ED.RN ---
DR HONEYCUTT PAGED FOR DR AVILES
--- NOTE | 2019-05-14 00:56 | HP.PCM_ITS ---
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: Chronic (7) Nicotine abuse Status: Chronic History of Present Illness Date of Admission: 05/14/19 Chief Complaint: Dizziness The patient is a 58 y/o M w/ PMHx: Chronic COPD, CAD s/p PCI x 1, HTN, HLD, BPH, PAF, Ischemic Cardiology, BPH who presents to the [facility] ED on 05/14/19 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 He notes that he did feel as if he was going to pass out but improved with rest. In the ED patient notes clinically feeling improved and states that he has been drinking appropriately and eating today. He was recently evaluated in the ED on 05/05/19 with COPD exacerbation, treated with steroid taper and doxycycline and notes that he completed the steroid taper this morning but continues his antibiotic. He notes his breathing has improved since his initial ED evaluation at the beginning of May. Work-up in the ED included T 98, heart rate 70, BP 117/79, respiratory rate 18, 97% on room air, CBC with WC 12.4, hemoglobin 13.6, platelets 302 with left shift, BMP with BUN/creatinine 20/1.11, glucose 132, troponin less than 0.015, EKG with sinus rhythm with no acute evidence of ischemia, chest x-ray with no acute cardiopulmonary findings. Past Medical History Past Medical History (Chronic Problems): Chronic Problems (Last Reviewed 09/05/18 @ 11:36 by Sierra Ohara) Paroxysmal atrial tachycardia (Chronic) Paroxysmal ventricular tachycardia (Chronic) Presence of stent in coronary artery (Chronic ~06/27/08) PTCA and stenting RCA 06/27/2008 at [facility]; Old myocardial infarction (Chronic) Atherosclerotic heart disease of [place] coronary artery without angina pectoris (Chronic) PTCA and stenting RCA 06/27/2008 at [facility]; Ischemic cardiomyopathy (Chronic) HLD (hyperlipidemia) (Chronic) H/O percutaneous transluminal coronary angioplasty (Chronic) PTCA and stenting RCA 06/27/2008 at [facility]; COPD (chronic obstructive pulmonary disease) (Chronic) 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) Nicotine abuse (Chronic) History of pulmonary embolism (Chronic) Medical History: Medical History (Last Reviewed 09/05/18 @ 11:36 by Sierra Ohara) Paroxysmal atrial tachycardia (Chronic) I47.1 Paroxysmal ventricular tachycardia (Chronic) I47.2 Premature ventricular contraction (Acute) I49.3 Presence of stent in coronary artery (Chronic) Onset Date: ~06/27/08 Z95.5 PTCA and stenting RCA 06/27/2008 at [facility]; Old myocardial infarction (Chronic) I25.2 Atherosclerotic heart disease of [place] coronary artery without angina pectoris (Chronic) I25.10 PTCA and stenting RCA 06/27/2008 at [facility]; Ischemic cardiomyopathy (Chronic) I25.5 HLD (hyperlipidemia) (Chronic) E78.5 COPD (chronic obstructive pulmonary disease) (Chronic) J44.9 BPH (benign prostatic hyperplasia) N40.0 CAD (coronary artery disease) (Inactive) I25.10 PTCA and stenting RCA 06/27/2008 at [facility]; Allergies latex Allergy (Verified 05/13/19 22:25) Rash varenicline tartrate [From Chantix] Allergy (Verified 05/13/19 22:25) Hives aspirin Adverse Reaction (Verified 05/13/19 22:25) Upset Stomach Home Medications: Ambulatory Orders Medication Instructions Recorded Clopidogrel Bisulfate [Plavix] 75 mg PO QHS 06/16/13 Cholecalciferol (VIT D3) [Vitamin 2,000 units PO QHS 03/25/16 D3] Omeprazole [Prilosec] 40 mg PO DAILY 05/13/17 Aspirin [Aspirin, Baby] 81 mg PO DAILY@0800 06/20/17 cyanocobalamin (vit B-12) 1,000 1,000 mcg PO QDAY 10/15/17 mcg tablet Cetirizine HCl [Zyrtec] 10 mg PO QHS 12/14/17 Mometasone/Formoterol [Dulera 200 2 puff IH BID 06/30/18 Mcg/5 Mcg Inhaler] atorvastatin 20 mg tablet 20 mg PO DAILY #90 tab 12/02/18 albuterol sulfate HFA 90 2 puff INHALATION Q2H PRN #18 g 03/10/19 mcg/actuation aerosol inhaler Doxycycline 100 mg PO BID #20 cap 05/06/19 Surgical History: Surgical History (Last Reviewed 09/05/18 @ 11:36 by Sierra Ohara) H/O percutaneous transluminal coronary angioplasty (Chronic) Z98.61 PTCA and stenting RCA 06/27/2008 at [facility]; History of hernia repair Z98.890, Z87.19 History of left hip replacement Z96.642 Surgical History: angioplasty, - - PCI x1, left total hip replacement, hernia repair. Psychiatric History: No pertinent psych hx Lives: Spouse/ Significant Other Smoking Status: Current every day smoker - Patient smokes currently three- quarter pack cigarette tobacco daily. Tobacco Use: Cigarettes Alcohol: None Drugs: None - *Family History Maternal Family History: Family History (Last Reviewed 09/05/18 @ 11:36 by Sierra Ohara) Father CAD (coronary artery disease) Heart disease Myocardial infarction Mother Diabetes Brother Hypertension History Items: Diabetes Paternal Family History: Family History (Last Reviewed 09/05/18 @ 11:36 by Sierra Ohara) Father CAD (coronary artery disease) Heart disease Myocardial infarction Mother Diabetes Brother Hypertension History Items: High Cholesterol, Heart Disease, Hypertension Review of Systems Constitutional: Reports: Malaise, Weakness, Fatigue. Denies: Chills, Fever, Weight Change HEENT: Denies: Head Aches, Sinus Congestion, Sinus Drainage Cardiovascular: Reports: Light Headedness, Syncope - Near syncopal sensation.. Denies: Chest Pain, Chest Pressure, Chest Tightness, Palpitations Respiratory: Reports: - - Recent acute COPD exacerbation with wheezing, dyspnea, improving.. Denies: Cough, Shortness of breath at rest, Sputum production Gastrointestinal: Reports: Nausea, Vomiting. Denies: Abdominal Pain Genitourinary: Denies: Dysuria Musculoskeletal: Denies: Joint Pain, Joint Tenderness Skin: Denies: Rash, Wounds Neurological: Denies: Numbness, Tingling, Focal weakness Psychiatric: Denies: Anxiety, Depression, Homicidal Ideations, Suicidal Ideations Hematologic/ Lymphatic: Reports: Easy Bruising, Easy Bleeding VTE Information - Inpt Only VTE Present on Admission: No VTE Mechan Device Prophylaxis: SCD's VTE Pharm Prophylaxis ordered?: Yes Patient Problems: Active and Suspected Problems (Last Reviewed 09/05/18 @ 11:36 by Sierra Ohara) Dizziness (Acute) Near syncope (Acute) Subjective: Seated upright in ED bed, mildly fatigued appearing, notes improved since initial onset of near syncopal event. Objective: Physical Examination: General: awake, alert, oriented x 3 and cooperative, seated upright in the ED bed in no apparent distress. Skin: normal color, turgor, no icterus, cyanosis. HEENT: AT/NC, EOMI, PERRLA, mildly dry MM, no carotid bruits or JVD noted. Lungs: Breath sounds bilaterally, greater bases, moderate effort, occasional and soft expiratory wheeze noted, some referred from upper airway. Abdomen: soft, NTTP, ND, normal BS, no HSM. Extremities: no cyanosis, clubbing, or edema. Neurological: patient awake, alert, oriented x 3; cognitive function intact; pupils equally reactive to light and accomodation; cranial nerves II-XII grossly normal, moving all 4 extremities, no focal deficits, strength moderately decreased secondary to acute presentation. Psychiatric: affect appears fatigued, no acute evidence of depressive or anxiety feelings. - Physical Exam Vital Signs Temp Pulse Resp BP Pulse Ox 98.0 F 70 18 117/79 97 05/13/19 22:24 05/13/19 22:24 05/13/19 22:24 05/13/19 22:24 05/13/19 22:24 Oxygen Delivery Method Room Air Weight: 145 lb 4.554 oz Body Mass Index (BMI) 22.1 Laboratory Tests Past 24 Hrs 05/13/19 05/13/19 23:43 23:43 WBC 12.4 H RBC 4.55 L Hgb 13.6 Hct 41.8 MCV 91.9 MCH 29.9 MCHC 32.5 RDW Std Deviation 47.5 H RDW Coeff of [place] 14.0 Plt Count 302 MPV 8.8 Immature Gran % (Auto) 2.200 H Neut % (Auto) 71.6 H Lymph % (Auto) 15.0 L [place] % (Auto) 9.3 Eos % (Auto) 1.4 Baso % (Auto) 0.5 Absolute Neuts (auto) 8.9 H Absolute Lymphs (auto) 1.86 Nucleated RBC % 0 Sodium 138 Potassium 3.6 Chloride 104 Carbon Dioxide 28.0 Anion Gap 6 BUN 20 H Creatinine 1.11 Estim Creat Clear Calc 68.44 Est GFR (MDRD) Af Amer 88 Est GFR (MDRD) Non-Af 72 BUN/Creatinine Ratio 18.0 Glucose 132 H Calcium 7.9 L Troponin I < 0.015 Assessment/Plan All Active Problems (Last Reviewed 09/05/18 @ 11:36 by Sierra Ohara) Dizziness (Acute) Near syncope (Acute) Premature ventricular contraction (Acute) Septic shock (Acute) HCAP (healthcare-associated pneumonia) (Acute) Acute respiratory failure (Acute) Hypoxemia (Acute) Acute on chronic respiratory failure with hypoxemia (Acute) Pulmonary embolism (Resolved) The patient is a 58 y/o M w/ PMHx: Chronic COPD, CAD s/p PCI x 1, HTN, HLD, BPH, PAF, Ischemic Cardiology, BPH who presents to the [facility] ED on 05/14/19 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 1. Near syncopal event with nausea, diaphoresis, lightheadedness and dizziness: Unclear etiololgy, EKG in ED w/ sinus rhythm without evidence of acute ischemia, CXR w/ no acute cardiopulmonary findings, initial trop normal. Will admit to PCU, place on a monitored bed to assure no acute myocardial infarction with serial cardiac enzymes and EKGs. Will maintain on fall precautions, obtain admission orthostatic and AM orthostatic VS, initiate gentle IVFs. Will obtain ECHO. Pending further evaluation may need to consider cardiac stress testing. 2. Recent acute COPD exacerbation: Evaluated and treated in the ED on 05/05/19, will continue patient doxycycline as well as steroid regimen to completion, verifying, maintain on ATC duonebs, PRN albuterol, HOB, IS parameters. 3. CAD: History of prior [place], status post PCI x1 RCA 2007, maintained on aspirin, Plavix, statin, not on beta-maribel therapy possibly secondary to underlying pulmonary disease and normal BP upon presentation. Most recent echocardiogram 03/29/19 w/ EF 65%, segmental dysfunction with preserved EF, trivial MVI, trivial TBI, mild focal AV thickening. 4. Ischemic cardiomyopathy: Maintain on aspirin, Plavix, statin, not on beta- maribel therapy nor VIJAY inhibitor or ARB. 5. Hypertension: From current list on a regimen, BP low normal, continue to monitor and add regimen if appropriate, PRN hydralazine. 6. Hyperlipidemia: Continue home statin regimen. AM FLP. 7. GERD: Continue home PPI. 8. DVT prophylaxis: SCDs, Lovenox. Code Visit OBSV E&M: [id number] Initial observation care L3
[2019-05-14 03:41] LABS: Magnesium 2.1 mg/dL (1.6-2.6)
[2019-05-14] MEDS: 0.9% Normal Saline 1,000 ML 100 ML IV (03:52)
[2019-05-14] MEDS: 0.9% NaCl Peripheral Flush Adult/Peds IV (03:53)
[2019-05-14] MEDS: Albuterol 2.5 MG/3 ML VIAL.NEB. INHALATION ×3 (03:57→15:04)
--- NOTE | 2019-05-14 05:55 | ECHOCS_ITS ---
Reason For Study: SYNCOPE/NEAR SYNCOPE Procedure This was a 2D Doppler, Color Flow transthoracic echocardiogram. The study was technically difficult. Exam performed portable in patient room. Left Ventricle Normal LV size. Normal diastology for age. The estimated ejection fraction is 65 %. No regional wall motion abnormalities noted. Right Ventricle Normal RV size. Normal systolic function. Atria Normal left atrium. Normal right atrium. No doppler evidence for ASD. Mitral Valve There is no mitral valve stenosis. No mitral valve insufficiency. Tricuspid Valve There is no tricuspid stenosis. Unable to estimate RV systolic pressure due to inadequate jet, pulmonary artery pressure probably normal. No tricuspid valve insufficiency. Aortic Valve Trisinus/trileaflet aortic valve. There is no aortic stenosis. No aortic valve insufficiency. Pulmonic Valve There is no pulmonic valvular stenosis. No pulmonic valve insufficiency. Great Vessels Normal aortic root. Pericardium/Pleural No pericardial effusion. Medication Diluted definity 5ml given slow IV push to enhance endocardial definition. MMode/2D Measurements & Calculations LVIDd: 4.6 cm IVSd: 0.89 cm Ao root diam: 3.2 cm LVIDs: 3.2 cm LVPWd: 0.96 cm RVDd: 3.2 cm FS: 31.7 % LAV(MOD-bp): 34.6 ml LVAd ap4: 27.8 cm2 SV(MOD-sp4): 49.3 ml LAV(MOD-bp) Indexed: 19.2 ml/m2 EDV(MOD-sp4): 85.6 ml LAV(MOD-sp2): 32.3 ml EDV(sp4-el): 85.7 ml LAV(MOD-sp4): 35.7 ml LVAs ap4: 16.6 cm2 ESV(MOD-sp4): 36.3 ml ESV(sp4-el): 36.1 ml EF(MOD-sp4): 57.6 % EF(sp4-el): 57.8 % SV(sp4-el): 49.5 ml LA A4 area: 14.2 cm2 LA dimension(2D): 3.8 cm RA A4 area: 10.9 cm2 Time Measurements MV dec time: 0.19 sec Doppler Measurements & Calculations MV E max tony: 66.3 cm/sec Lat Peak E' Tony: 15.7 cm/sec Med Peak E' Tony: 11.0 cm/sec MV A max tony: 71.3 cm/sec E/E' lat: 4.2 E/E' med: 6.0 MV E/A: 0.93 Ao V2 max: 118.7 cm/sec LV V1 max: 105.2 cm/sec PA V2 max: 90.4 cm/sec Ao max P.6 mmHg LV V1 max P.4 mmHg Interpretation Summary Contrast injection was performed. The study was technically difficult. Normal diastology for age. The estimated ejection fraction is 65 %. Contrast injection was performed. The study was technically difficult. Ordering Physician: Jaqui Adler Referring Physician: RADHA KAMARA Performed By: Yumiko Lobato RDCS
[2019-05-14 06:24] LABS: Absolute Lymphocyte Count 1.58 X10^3/uL (0.83-4.51); Absolute Neutrophil Count 2.6 X10^3/uL (2.0-7.7); Basophil# 0.01 X10^3/uL; Basophil% 0.2 % (0-1); Eosinophil# 0.18 X10^3/uL; Eosinophils% 3.6 % (0-5); Hematocrit 39.3 % (40-54); Hemoglobin 13.1 g/dL (13.0-16.5); Lymphocyte # 1.58 X10^3/ul (4.0); Mean Corp Hgb Conc 33.3 g/dL (32-36); Mean Corpuscular Volume 90.1 fL (80-94); Mean Platelet Vol. 9.8 fl (6.2-12.0); Monocyte# 0.55 X10^3/uL; Monocyte% 11.1 % (0-10); NRBC Flagged by Analyzer 0 % (0-5); Neutrophil % 52.7 % (47-70); Platelet Count 143 K/mm3 (150-450); RBC Distribution Width CV 12.1 % (11.6-14.6); RBC Distribution Width SD 39.7 fl (35.1-43.9); Red Blood Count 4.36 M/mm3 (4.6-6.2); White Blood Count 4.9 K/mm3 (4.4-11.0)
[2019-05-14 06:40] LABS: Anion Gap 5 (5-15); BUN 16 mg/dL (7-18); Calcium,Total 8.2 mg/dL (8.5-10.1); Chloride 111 mmol/L (98-107); Creatinine, Serum 0.94 mg/dL (0.70-1.30); EST Glomerular Filtration Rate 87 mL/min (>60); Est Glom Filt Rate - Afr Amer 106 mL/min (>60); Estimated Creatinine Clearance 82.66 ml/min; Glucose 97 mg/dL (74-106); Potassium 3.9 mmol/L (3.5-5.1); Sodium Level 144 mmol/L (136-145)
[2019-05-14] MEDS: Ipratropium/Albuterol Sulfate 3 ML AMPUL.NEB INHALATION (07:11)
[2019-05-14] MEDS: Aspirin 81 MG TAB.CHEW PO (07:40)
[2019-05-14] MEDS: Doxycycline 100 MG CAPSULE PO (07:40)
[2019-05-14] MEDS: Pantoprazole Sodium 40 MG Tablet PO (07:41)
--- NOTE | 2019-05-14 11:08 | CASEMGMT ---
LW/PONaren scanned into summary tab of e-chart. Daughter Clarice Andrade is listed as POA. YESENIA Sánchez
--- NOTE | 2019-05-14 11:53 | DCINST_ITS ---
- Discharge Diagnoses Current Active Problems: Current Active and Chronic Problems (Last Reviewed 09/05/18 @ 11:36 by Sierra Ohara) Dizziness (Acute) Near syncope (Acute) You will use the following diet at home:: Cardiac Discharge Activity: Return to Normal Activity Call your doctor if you observe: Shortness of breath, Dizziness, Fainting spells, Chest pain Allergies/Adverse Reactions: Allergies latex Allergy (Verified 05/14/19 02:03) Rash varenicline tartrate [From Chantix] Allergy (Verified 05/14/19 02:03) Hives aspirin Adverse Reaction (Verified 05/14/19 02:03) Upset Stomach Medications to take at Discharge Clopidogrel Bisulfate [Plavix] 75 mg PO QHS 06/16/13 Cholecalciferol (VIT D3) [Vitamin D3] 2,000 units PO QHS 03/25/16 Omeprazole [Prilosec] 40 mg PO DAILY 05/13/17 Aspirin [Aspirin, Baby] 81 mg PO DAILY@0800 06/20/17 cyanocobalamin (vit B-12) 1,000 mcg tablet 1,000 mcg PO QHS 10/15/17 Cetirizine HCl [Zyrtec] 10 mg PO QHS 12/14/17 Mometasone/Formoterol [Dulera 200 Mcg/5 Mcg Inhaler] 2 puff IH BID 06/30/18 atorvastatin 20 mg tablet 20 mg PO DAILY #90 tab 12/02/18 albuterol sulfate HFA 90 mcg/actuation aerosol inhaler 2 puff INHALATION Q2H PRN #18 g 03/10/19 Doxycycline 100 mg PO BID 05/14/19 Primary Care Physician: Alexey Mayberry MD [Primary Care Provider] - Please follow up with your Primary Care Physician in: 1 Week Test Results: Test results from this visit will be discussed in further detail at your follow- up appointment, if applicable. Please Follow Up With: Crispin Upton MD When: As scheduled Proposed Discharge Date: 05/14/19
--- NOTE | 2019-05-14 11:56 | PCM.DC.SUM ---
<Minda Pastor - Last Filed: 05/14/19 15:04> Discharge Date and Diagnosis Date of Admission: 05/14/19 Date of Discharge: 05/14/19 - Primary Discharge Diagnosis Active and Suspected Problems (Last Reviewed 09/05/18 @ 11:36 by Sierra Ohara) 1. Near syncope 2. Recent COPD exacerbation 3. CAD with history of PCI 4. History of ischemic cardiomyopathy 5. Hypertension 6. Hyperlipidemia 7. GERD - Secondary Discharge Diagnosis Chronic Problems (Last Reviewed 09/05/18 @ 11:36 by Sierra Ohara) Paroxysmal atrial tachycardia (Chronic) Paroxysmal ventricular tachycardia (Chronic) Presence of stent in coronary artery (Chronic ~06/27/08) PTCA and stenting RCA 06/27/2008 at [place]; Old myocardial infarction (Chronic) Atherosclerotic heart disease of [place] coronary artery without angina pectoris (Chronic) PTCA and stenting RCA 06/27/2008 at [place]; Ischemic cardiomyopathy (Chronic) HLD (hyperlipidemia) (Chronic) H/O percutaneous transluminal coronary angioplasty (Chronic) PTCA and stenting RCA 06/27/2008 at [place]; COPD (chronic obstructive pulmonary disease) (Chronic) 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 Electronically Signed: Fritz Chung DO at 23:53 EDT Tel [phone], Service support , Operations: None Procedures: 2-D Echocardiogram Summary of Care Provided: The patient is a 58 year old M admitted 05/14/2019 due to dizziness, presyncope. 1. Near syncope-EKG without evidence of ischemia. Chest x-ray without acute findings. Troponin negative. Echocardiogram March 2018 with EF 65%. Repeat echocardiogram pending and will be reviewed prior to discharge. Orthostatic vitals negative. Do suspect presenting symptoms related to dehydration as patient reports he was working in a very hot environment and did not drink much during the day. Follow-up with primary care physician in 1 week. Follow-up with cardiology as scheduled. 2. Recent COPD exacerbation-complete doxycycline as previously prescribed. Continue home aerosol/inhaler regimen. 3. CAD with history of PCI-continue aspirin, Plavix, statin. 4. History of ischemic cardiomyopathy-recent EF normal as noted above. 5. Hypertension-stable, not on regimen. 6. Hyperlipidemia-continue statin regimen. 7. GERD-continue home omeprazole regimen. Patient seen and examined prior to discharge. Physical assessment as noted below. Patient is stable for discharge with follow up recommendations as noted above. This patient was seen by GEMA Warren under the supervision of Dr. Tran. - Physical Exam Vital Signs Temp Pulse Resp BP Pulse Ox 97.4 F L 71 18 103/61 95 05/14/19 07:49 05/14/19 10:51 05/14/19 10:51 05/14/19 07:59 05/14/19 10:33 Oxygen Delivery Method Room Air Weight: 148 lb 9.465 oz Body Mass Index (BMI) 22.6 Orthostatic Vital Signs Start: 05/14/19 03:33 Freq: q24h Status: Active Protocol: Activity Type Activity Date Activity User E-Sign Co-Sign Detail Recorded Client Recorded Date Recorded By Document 05/14/19 07:59 [id number] 05/14/19 08:03 JL 05/14/19 07:59 Orthostatic Vitals Standing -Blood Pressure (90/60-120/80) 95/65 -Extremity Use Right Arm -Pulse Rate (60-100) 76 Sitting -Blood Pressure (90/60-120/80) 107/64 -Extremity Use Right Arm -Pulse Rate (60-100) 74 Lying -Blood Pressure (90/60-120/80) 103/61 -Extremity Use Left Arm -Pulse Rate (60-100) 69 Intake and Output for Last 24 Hours 05/12/19 05/13/19 05/14/19 23:59 23:59 23:59 Output Total 1075 / 1075 Balance -1075 / -1075 Laboratory Tests Past 24 Hrs 05/13/19 05/13/19 05/14/19 23:43 23:43 03:16 WBC 12.4 H RBC 4.55 L Hgb 13.6 Hct 41.8 MCV 91.9 MCH 29.9 MCHC 32.5 RDW Std Deviation 47.5 H RDW Coeff of [place] 14.0 Plt Count 302 MPV 8.8 Immature Gran % (Auto) 2.200 H Neut % (Auto) 71.6 H Lymph % (Auto) 15.0 L [place] % (Auto) 9.3 Eos % (Auto) 1.4 Baso % (Auto) 0.5 Absolute Neuts (auto) 8.9 H Absolute Lymphs (auto) 1.86 Nucleated RBC % 0 Sodium 138 Potassium 3.6 Chloride 104 Carbon Dioxide 28.0 Anion Gap 6 BUN 20 H Creatinine 1.11 Estim Creat Clear Calc 68.44 Est GFR (MDRD) Af Amer 88 Est GFR (MDRD) Non-Af 72 BUN/Creatinine Ratio 18.0 Glucose 132 H Calcium 7.9 L Magnesium 2.1 Troponin I < 0.015 05/14/19 05/14/19 05/14/19 03:16 05:55 05:55 WBC 4.9 RBC 4.36 L Hgb 13.1 Hct 39.3 L MCV 90.1 MCH 30.0 MCHC 33.3 RDW Std Deviation 39.7 RDW Coeff of [place] 12.1 Plt Count 143 L MPV 9.8 Immature Gran % (Auto) 0.400 Neut % (Auto) 52.7 Lymph % (Auto) 32.0 [place] % (Auto) 11.1 H Eos % (Auto) 3.6 Baso % (Auto) 0.2 Absolute Neuts (auto) 2.6 Absolute Lymphs (auto) 1.58 Nucleated RBC % 0 Sodium 144 Potassium 3.9 Chloride 111 H Carbon Dioxide 28.0 Anion Gap 5 BUN 16 Creatinine 0.94 Estim Creat Clear Calc 82.66 Est GFR (MDRD) Af Amer 106 Est GFR (MDRD) Non-Af 87 BUN/Creatinine Ratio 17.0 Glucose 97 Calcium 8.2 L Magnesium Troponin I < 0.015 < 0.015 Discharge Diet: Low fat/ Low Cholesterol Discharge Activity: Return to Normal Activity Call your doctor if you observe: Shortness of breath, Dizziness, Fainting spells, Chest pain Home Medications: Medications to take at Discharge Clopidogrel Bisulfate [Plavix] 75 mg PO QHS 06/16/13 Cholecalciferol (VIT D3) [Vitamin D3] 2,000 units PO QHS 03/25/16 Omeprazole [Prilosec] 40 mg PO DAILY 05/13/17 Aspirin [Aspirin, Baby] 81 mg PO DAILY@0800 06/20/17 cyanocobalamin (vit B-12) 1,000 mcg tablet 1,000 mcg PO QHS 10/15/17 Cetirizine HCl [Zyrtec] 10 mg PO QHS 12/14/17 Mometasone/Formoterol [Dulera 200 Mcg/5 Mcg Inhaler] 2 puff IH BID 06/30/18 atorvastatin 20 mg tablet 20 mg PO DAILY #90 tab 12/02/18 albuterol sulfate HFA 90 mcg/actuation aerosol inhaler 2 puff INHALATION Q2H PRN #18 g 03/10/19 Doxycycline 100 mg PO BID 05/14/19 Primary Care Physician: Alexey Mayberry MD [Primary Care Provider] - Please follow up with your Primary Care Physician in: 1 Week Please Follow Up With: Crispin Upton MD When: As scheduled Disposition: Home Minutes spent on discharge:: 35 Patient Condition:: Stable Medical Necessity - Tobacco Use Smoking Status: Current every day smoker Tobacco Use: Cigarettes Meaningful Use Info Meaningful Use Diagnoses (Choose all that apply): None applicable <MarcCarinatrista Corado - Last Filed: 05/14/19 15:33> Discharge Date and Diagnosis - Secondary Discharge Diagnosis Chronic Problems (Last Reviewed 09/05/18 @ 11:36 by Sierra Ohara) Paroxysmal atrial tachycardia (Chronic) Paroxysmal ventricular tachycardia (Chronic) Presence of stent in coronary artery (Chronic ~06/27/08) PTCA and stenting RCA 06/27/2008 at [place]; Old myocardial infarction (Chronic) Atherosclerotic heart disease of [place] coronary artery without angina pectoris (Chronic) PTCA and stenting RCA 06/27/2008 at [place]; Ischemic cardiomyopathy (Chronic) HLD (hyperlipidemia) (Chronic) H/O percutaneous transluminal coronary angioplasty (Chronic) PTCA and stenting RCA 06/27/2008 at [facility]; COPD (chronic obstructive pulmonary disease) (Chronic) 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 The patient is a 58 year old M with a past medical history as listed. He was admitted through the ED with a complaint of dizziness. He had a stent lightheadedness, nausea with resultant emesis and diaphoresis. He did not have any chest pain. Patient stated he had been eating and drinking appropriately on the day of admission. He was admitted and managed for near syncope likely vasovagal. He was hydrated with IV fluids. 2D echo done showed normal diastole for age and EF of 65% but was otherwise normal. Orthostatics done was negative. Patient improved markedly and had no complaints. He remained stable and was discharged home on 05/14/2019. He is follow-up with his primary care doctor within 1 week. Patient seen and examined prior to discharge. He had no complaints and felt well. Review of systems otherwise negative. Symptoms had resolved. Labs and vitals reviewed. Home medication reviewed and reconciled. o/e: Vital Signs Height 5 ft 8 in Weight: 148 lb 9.465 oz Weight in Pounds 148.6 lbs Pulse Ox 96 Temperature 97.9 F Pulse Rate [Standing] 76 Pulse Rate [Sitting] 74 Pulse Rate [Lying] 69 Pulse Rate 81 Respiratory Rate 17 Blood Pressure [Standing] 95/65 Blood Pressure [Sitting] 107/64 Blood Pressure [Lying] 103/61 Blood Pressure 106/72 Blood Pressure Position Semi-Fowlers [] General: awake, alert, oriented x 3 and cooperative, Skin: normal color, turgor, no icterus, cyanosis. HEENT: AT/NC, EOMI, PERRLA, mildly dry MM, no carotid bruits or JVD noted. Lungs: clear Breath sounds bilaterally, no wheezes or crackles. Abdomen: soft, nontender, no organomegaly. Extremities: no cyanosis, clubbing, or edema. Neurological: patient awake, alert, oriented x 3; neuro exam intact. Psychiatric: normal affect. alert and oriented x 3. Plan as above. Patient counseled to remain hydrated and to eat well. To follow-up with primary care doctor within 1 week. Rest of assessment and plan as per GEMA Warren's notes which I reviewed and endorsed. - Physical Exam Vital Signs Temp Pulse Resp BP Pulse Ox 97.9 F 81 17 106/72 96 05/14/19 13:54 05/14/19 15:16 05/14/19 15:16 05/14/19 13:54 05/14/19 13:54 Oxygen Delivery Method Room Air Weight: 148 lb 9.465 oz Body Mass Index (BMI) 22.6 Orthostatic Vital Signs Start: 05/14/19 03:33 Freq: q24h Status: Active Protocol: Activity Type Activity Date Activity User E-Sign Co-Sign Detail Recorded Client Recorded Date Recorded By Document 05/14/19 07:59 [id number] 05/14/19 08:03 05/14/19 07:59 Orthostatic Vitals Standing -Blood Pressure (90/60-120/80) 95/65 -Extremity Use Right Arm -Pulse Rate (60-100) 76 Sitting -Blood Pressure (90/60-120/80) 107/64 -Extremity Use Right Arm -Pulse Rate (60-100) 74 Lying -Blood Pressure (90/60-120/80) 103/61 -Extremity Use Left Arm -Pulse Rate (60-100) 69 Intake and Output for Last 24 Hours 05/12/19 05/13/19 05/14/19 23:59 23:59 23:59 Intake Total 1480 / 1480 Output Total 1875 / 1875 Balance -395 / -395 Laboratory Tests Past 24 Hrs 05/13/19 05/13/19 05/14/19 23:43 23:43 03:16 WBC 12.4 H RBC 4.55 L Hgb 13.6 Hct 41.8 MCV 91.9 MCH 29.9 MCHC 32.5 RDW Std Deviation 47.5 H RDW Coeff of [place] 14.0 Plt Count 302 MPV 8.8 Immature Gran % (Auto) 2.200 H Neut % (Auto) 71.6 H Lymph % (Auto) 15.0 L [place] % (Auto) 9.3 Eos % (Auto) 1.4 Baso % (Auto) 0.5 Absolute Neuts (auto) 8.9 H Absolute Lymphs (auto) 1.86 Nucleated RBC % 0 Sodium 138 Potassium 3.6 Chloride 104 Carbon Dioxide 28.0 Anion Gap 6 BUN 20 H Creatinine 1.11 Estim Creat Clear Calc 68.44 Est GFR (MDRD) Af Amer 88 Est GFR (MDRD) Non-Af 72 BUN/Creatinine Ratio 18.0 Glucose 132 H Calcium 7.9 L Magnesium 2.1 Troponin I < 0.015 05/14/19 05/14/19 05/14/19 03:16 05:55 05:55 WBC 4.9 RBC 4.36 L Hgb 13.1 Hct 39.3 L MCV 90.1 MCH 30.0 MCHC 33.3 RDW Std Deviation 39.7 RDW Coeff of [place] 12.1 Plt Count 143 L MPV 9.8 Immature Gran % (Auto) 0.400 Neut % (Auto) 52.7 Lymph % (Auto) 32.0 [place] % (Auto) 11.1 H Eos % (Auto) 3.6 Baso % (Auto) 0.2 Absolute Neuts (auto) 2.6 Absolute Lymphs (auto) 1.58 Nucleated RBC % 0 Sodium 144 Potassium 3.9 Chloride 111 H Carbon Dioxide 28.0 Anion Gap 5 BUN 16 Creatinine 0.94 Estim Creat Clear Calc 82.66 Est GFR (MDRD) Af Amer 106 Est GFR (MDRD) Non-Af 87 BUN/Creatinine Ratio 17.0 Glucose 97 Calcium 8.2 L Magnesium Troponin I < 0.015 < 0.015 Code Visit OBSV E&M: [id number] Observation care discharge
== END 2019-05-14 11:54 | disposition home or self-care (01) ==
LOC: ED 05-14 00:35 → PCU 05-14 01:11
PROVIDERS: Admitting Provider Family Medicine; Emergency Provider Emergency Medicine; Family Provider Internal Medicine; PCP Internal Medicine; Visit Provider Student in an Organized Health Care Education/Training Program
DX: R55 Syncope and collapse (principal); J44.9 Chronic obstructive pulmonary disease, unspecified; I25.10 Atherosclerotic heart disease of native coronary artery without angina pectoris; E78.5 Hyperlipidemia, unspecified; K21.9 Gastro-esophageal reflux disease without esophagitis; I10 Essential (primary) hypertension; I25.2 Old myocardial infarction; I25.5 Ischemic cardiomyopathy; I48.0 Paroxysmal atrial fibrillation; N40.0 Benign prostatic hyperplasia without lower urinary tract symptoms; F17.210 Nicotine dependence, cigarettes, uncomplicated; Z95.5 Presence of coronary angioplasty implant and graft; Z79.899 Other long term (current) drug therapy; Z79.02 Long term (current) use of antithrombotics/antiplatelets; Z79.82 Long term (current) use of aspirin
CPT/HCPCS: 36415; 71045; 80048; 83735; 84484; 85025; 93005; 93306; 94640; 96360; 96361; 97802; 99218; 99285; 99406; J7030; Q9957; A4216; C8929; G0378

== ENCOUNTER 2019-06-23 16:58 | Emergency (ER) | payer MEDICARE, MEDICAID, SELFPAY ==
[2019-05-14 01:46] VITALS: BMI 22.6
[2019-06-23 16:59] VITALS: BP 135/86; PULSE 73; RESP 18; TEMP 36.6; O2SAT 98; BMI 24.3
--- NOTE | 2019-06-23 17:09 | ED.DCSUM_ITS ---
History of Present Illness Chief Complaint: Lower Extremity Injury Detail of Chief Complaint: Right knee and leg pain Informant: Patient Onset: Days - 3 days Context: Gradual Onset Timing: Waxes and wanes Current Severity: Mild Maximum Severity: Moderate Narrative: Patient presents with pain to the right knee over the past 3 days. He denies an y known injury. He did have a tibial toe fracture with surgical repair in 1983. He states he does know he has a bone spur. He also describes his calf being swollen and rock hard yesterday morning. He did recently drive to [place] and back. He denies history of blood clots. Past Medical History - Allergies and Home Meds Allergies/Adverse Reactions: Allergies latex Allergy (Verified 06/23/19 17:01) Rash varenicline tartrate [From Chantix] Allergy (Verified 06/23/19 17:01) Hives aspirin Adverse Reaction (Verified 06/23/19 17:01) Upset Stomach Primary Care Physician: Alexey Mayberry MD [Primary Care Provider] - Prior records reviewed: Yes Past Medical History: - - Reviewed Surgical History: angioplasty, - - PCI x1, left total hip replacement, hernia repair. Smoking Status: Current every day smoker - Family History Maternal Family History: Family History (Last Reviewed 09/05/18 @ 11:36 by Sierra Ohara) Father CAD (coronary artery disease) Heart disease Myocardial infarction Mother Diabetes Brother Hypertension Family History: Reports: Diabetes Paternal Family History: Family History (Last Reviewed 09/05/18 @ 11:36 by Sierra Ohara) Father CAD (coronary artery disease) Heart disease Myocardial infarction Mother Diabetes Brother Hypertension Family History: Reports: High Cholesterol, Heart Disease, Hypertension Review of Systems General: Denies: Chills, Fever Eyes: Denies: Visual changes - bilaterally ENT: Denies: Bilateral ear pain Cardiovascular: Denies: Chest pain Respiratory: Denies: Dyspnea Gastrointestinal: Denies: Abdominal pain Genitourinary: Denies: Dysuria Musculoskeletal: Reports: Extremity Pain Skin: Denies: Wounds Neurological: Denies: Headache Physical Exam Vital Signs/Narrative: Vital Signs Temp Pulse Resp BP Pulse Ox 06/23/19 16:59 97.9 F 73 18 135/86 H 98 Inital Vital Signs reviewed: Yes General: Well nourished, Well developed Head: Normocephalic ENT: Moist mucous membranes Cardiovascular: Regular rate, Regular rhythm Respiratory: No distress, CTA bilaterally Abdomen: Soft, Nontender Back: Nontender Extremities: - - Mild tenderness of the anterior knee. No significant edema noted. No probable masses in the popliteal space. Calf is soft and nontender. Strong distal pulses. Skin: Normal color Neurological: Alert, Oriented x3 Psychological: Normal affect Diagnostic/Tx/Re-eval Impressions Venous Duplex 06/23/19 17:13 IMPRESSION: Normal venous Doppler ultrasound of the lower extremity. Electronically Signed: Adeel Brooks MD at 17:54 EDT , Service support , Knee X-Ray 06/23/19 17:15 IMPRESSION: Postoperative change proximal tibia no visualized acute fracture. Bony osteopenia. Mild degenerative change. Electronically Signed: Sparkle Barba MD at 17:32 EDT Tel , Service support , 06/23/19 17:15 Knee 4 or More Views [RAD] Stat - Medical Decision Making Test results are discussed with the patient. He has an Jaquan wrap that he will continue to use. He was offered crutches but declines. He will follow-up with Dr. Silva who he has seen in the past. ED Disposition - Plan for ED Patient: Disposition: Home or Assisted Living Diagnosis: Knee sprain Instructions: Knee Sprain Referrals: Alexey Mayberry MD [Primary Care Provider] - Roland Silva DO [STAFF PHYSICIAN] - As soon as possible
--- NOTE | 2019-06-23 17:13 | US_ITS ---
STUDY: VENOUS DOPPLER ULTRASOUND - RIGHT LOWER EXTREMITY REASON FOR EXAM: Male, 58 years old. Swelling. Pain. TECHNIQUE: Ultrasound evaluation of the deep vein system to include soto-scale imaging and compression was performed. Soto-scale imaging and Doppler sonographic evaluation, including duplex spectral analysis and qualitative color flow sonography, was performed. COMPARISON: None. FINDINGS: Common Femoral Vein: Normal compression, spontaneity and augmentation. Normal color Doppler. Common Femoral Vein/Greater Saphenous Junction: Normal compression, spontaneity and augmentation. Normal color Doppler. Deep Femoral Vein: Normal compression, spontaneity and augmentation. Normal color Doppler. Femoral Proximal: Normal compression, spontaneity and augmentation. Normal color Doppler. Femoral Middle: Normal compression, spontaneity and augmentation. Normal color Doppler. Femoral Distal: Normal compression, spontaneity and augmentation. Normal color Doppler. Popliteal Vein: Normal compression, spontaneity and augmentation. Normal color Doppler. Posterior Tibial Vein: Normal compression, spontaneity and augmentation. Normal color Doppler. Peroneal Vein: Normal compression, spontaneity and augmentation. Normal color Doppler. There is no demonstrated deep venous thrombosis. US/Venous Duplex Imag/Limited/Uni IMPRESSION: Normal venous Doppler ultrasound of the lower extremity. Electronically Signed: Adeel Brooks MD at 17:54 EDT , Service support ,
--- NOTE | 2019-06-23 17:15 | RAD_ITS ---
STUDY: X-RAY - RIGHT KNEE REASON FOR EXAM: Male, 58 years old. Knee pain TECHNIQUE: 4 view(s) of the knee. COMPARISON: None. FINDINGS: There is demineralization of the visualized distal femur. There is a cortical screw extending from lateral to medial within the proximal tibia. Normal proximal tibiofibular articulation. There is mild degenerative arthrosis of the medial femorotibial compartment. There is moderate degenerative arthrosis of the lateral femorotibial compartment with moderate joint space narrowing. Normal patellofemoral articulation. The soft tissue structures are unremarkable. RAD/Knee 4 or More Views IMPRESSION: Postoperative change proximal tibia no visualized acute fracture. Bony osteopenia. Mild degenerative change. Electronically Signed: Sparkle Barba MD at 17:32 EDT Tel , Service support ,
[2019-06-23 18:06] VITALS: RESP 16
--- NOTE | 2019-06-23 18:06 | ED.RN ---
REVIEWED D/C INSTRUCTIONS, FOLLOW UP CARE, AND S/S THAT WOULD WARRANT A RETURN TO THE ED WITH PT. PT VERBALIZED AN UNDERSTANDING AND DENIES FURTHER QUESTIONS FOR THIS RN. PT SKIN P/W/D, RESP EVEN AND UNLABORED, PT A&O X 3, NO DISTRESS NOTED. PT AMBULATED OUT OF ED, GAIT STEADY.
== END 2019-06-23 18:07 | disposition home or self-care (01) ==
PROVIDERS: Emergency Provider Emergency Medicine; Family Provider Internal Medicine; PCP Internal Medicine
DX: S83.91XA Sprain of unspecified site of right knee, initial encounter (principal); M85.80 Other specified disorders of bone density and structure, unspecified site; X58.XXXA Exposure to other specified factors, initial encounter; Y93.9 Activity, unspecified; Y92.9 Unspecified place or not applicable; F17.200 Nicotine dependence, unspecified, uncomplicated; M79.604 Pain in right leg
CPT/HCPCS: 73564; 93971; 99282

== ENCOUNTER 2019-06-29 02:37 | Inpatient (IN) | payer MEDICARE, MEDICAID, SELFPAY ==
[2019-06-29] VITALS (34 sets, daily range): BP systolic 108–175; BP diastolic 77–114; PULSE 69–139; RESP 12–40; TEMP 36.5–37.2; O2SAT 85–99; BMI 23.1; BMI 22.0
--- NOTE | 2019-06-29 02:47 | RAD_ITS ---
STUDY: X-RAY CHEST REASON FOR EXAM: Male, 58 years old. Pain. TECHNIQUE: Single AP portable view of the chest. COMPARISON: 05/13/2019. FINDINGS: The lungs are normally expanded with nonspecific diffuse interstitial prominence, stable. Otherwise lung noe are clear. There is no demonstrated pleural abnormality. Normal size heart. Normal mediastinum and winnie. Normal visualized pulmonary arteries. Normal visualized aortic arch and descending thoracic aorta. Suboptimally visualized thoracic spine. There is an old fracture of the left clavicle with multiple left-sided old rib fractures. There is no demonstrated abnormality of the visualized soft tissue structures of the upper abdomen. RAD/Chest 1 View (Portable) IMPRESSION: No acute cardiopulmonary disease, stable study in the interval. Electronically Signed: Fern Mckeon MD at 3:15 EDT , Service support ,
--- NOTE | 2019-06-29 02:47 | EKG12_ITS ---
Test Reason : SOB Blood Pressure : / mmHG Vent. Rate : 127 BPM Atrial Rate : 127 BPM P-R Int : 100 ms QRS Dur : 072 ms QT Int : 298 ms P-R-T Axes : 076 -17 042 degrees QTc Int : 433 ms Sinus tachycardia with short [place] Inferior infarct (cited on or before 01-JUL-2018), age undetermined Abnormal ECG Confirmed by LUZ IRCE, SB ([id number]), online editor MARI LAWSON ([id number]) on 06/30/2019 10:56:01 AM Referred By: STEFAN Confirmed By:SB ESCOBAR MD
--- NOTE | 2019-06-29 02:49 | ED.DCSUM_ITS ---
History of Present Illness Chief Complaint: Shortness of Breath Narrative: Patient is a 58-year-old male who presents in respiratory distress. He does have a history of asthma and COPD as well as a history of coronary disease and a stent. He became acutely short of breath about 1 to 1-1/2 hours ago. He complains of increased wheezing. He denies recent illness such as a URI-like illness. History and review of systems are limited as the patient presented in severe respiratory distress. Past Medical History - Allergies and Home Meds Allergies/Adverse Reactions: Allergies latex Allergy (Verified 06/29/19 02:38) Rash varenicline tartrate [From Chantix] Allergy (Verified 06/29/19 02:38) Hives aspirin Adverse Reaction (Verified 06/29/19 02:38) Upset Stomach Primary Care Physician: Alexey Mayberry MD [Primary Care Provider] - Past Medical History: - - Asthma, COPD, coronary artery disease Surgical History: angioplasty, - - PCI x1, left total hip replacement, hernia repair. Smoking Status: Current every day smoker - Family History Maternal Family History: Family History (Last Reviewed 09/05/18 @ 11:36 by Sierra Ohara) Father CAD (coronary artery disease) Heart disease Myocardial infarction Mother Diabetes Brother Hypertension Family History: Reports: Diabetes Paternal Family History: Family History (Last Reviewed 09/05/18 @ 11:36 by Sierra Ohara) Father CAD (coronary artery disease) Heart disease Myocardial infarction Mother Diabetes Brother Hypertension Family History: Reports: High Cholesterol, Heart Disease, Hypertension Review of Systems ROS: Unable to Obtain - Due to patient condition Physical Exam Vital Signs/Narrative: Vital Signs Temp Pulse Resp BP Pulse Ox 06/29/19 02:44 97.7 F L 129 H 37 H 97 06/29/19 02:39 97.7 F L 132 H 40 H 162/107 H 85 Inital Vital Signs reviewed: Yes General: Acute Distress, - - Severe respiratory distress only able speak in 2-3 word sentences Head: Normocephalic, Atraumatic Eyes: EOMI ENT: Moist mucous membranes Neck: Supple Cardiovascular: - - Heart is regular tachycardia I do not appreciate murmur Respiratory: - - Severely diminished air exchange, diffuse inspiratory and expiratory wheezing no stridor Abdomen: Soft, Nontender Extremities: Nontender, No edema Skin: Diaphoresis Neurological: Alert Psychological: Normal affect Diagnostic/Tx/Re-eval Impressions Chest X-Ray 06/29/19 02:47 IMPRESSION: No acute cardiopulmonary disease, stable study in the interval. Electronically Signed: Fern Mckeon MD at 3:15 EDT , Service support , 06/29/19 02:47 Chest 1 View (Portable) [RAD] Stat Laboratory Results 06/29/19 06/29/19 02:45 02:45 WBC 11.0 RBC 5.04 Hgb 15.3 Hct 47.0 MCV 93.3 MCH 30.4 MCHC 32.6 RDW Std Deviation 47.1 H RDW Coeff of [place] 13.7 Plt Count 274 MPV 9.5 Immature Gran % (Auto) 0.500 Neut % (Auto) 66.8 Lymph % (Auto) 15.5 L [place] % (Auto) 11.2 H Eos % (Auto) 5.5 H Baso % (Auto) 0.5 Absolute Neuts (auto) 7.3 Absolute Lymphs (auto) 1.71 Nucleated RBC % 0 Sodium 139 Potassium 4.6 Chloride 106 Carbon Dioxide 27.0 Anion Gap 6 BUN 12 Creatinine 1.02 Estim Creat Clear Calc 77.30 Est GFR (MDRD) Af Amer 97 Est GFR (MDRD) Non-Af 80 BUN/Creatinine Ratio 11.8 Glucose 113 H Calcium 8.8 - Medical Decision Making Patient was seen shortly after arrival. He was placed on BiPAP and given 2 DuoNeb aerosols as well as IV Solu-Medrol. On reevaluation he has shown improvement and is maintaining stable vitals however he is still tachypneic with retractions and increased work of breathing. He was given additional albuterol aerosols. CBC BMP and chest x-ray are unremarkable, no acute process on chest x-ray. Patient will be discussed with the hospitalist and admitted. ABG shows pH 7.39, PCO2 38, PO2 87. ED Disposition - Plan for ED Patient: Disposition: Acute Care Hospital [facility] Diagnosis: COPD exacerbation Referrals: Alexey Mayberry MD [Primary Care Provider] -
[2019-06-29] MEDS: MethylPREDNISolone 125 MG/2 ML Vial IV (02:50)
[2019-06-29 02:54] LABS: Absolute Lymphocyte Count 1.71 X10^3/uL (0.83-4.51); Absolute Neutrophil Count 7.3 X10^3/uL (2.0-7.7); Basophil# 0.06 X10^3/uL; Basophil% 0.5 % (0-1); Eosinophil# 0.61 X10^3/uL; Eosinophils% 5.5 % (0-5); Hemoglobin 15.3 g/dL (13.0-16.5); Lymphocyte # 1.71 X10^3/ul (4.0); Lymphocyte % 15.5 % (19-41); Mean Corp Hgb Conc 32.6 g/dL (32-36); Mean Corpuscular Hgb 30.4 pg (27.0-32.0); Mean Corpuscular Volume 93.3 fL (80-94); Mean Platelet Vol. 9.5 fl (6.2-12.0); Monocyte# 1.23 X10^3/uL; Monocyte% 11.2 % (0-10); NRBC Flagged by Analyzer 0 % (0-5); Neutrophil # 7.34 X10^3/uL (2.7-7.7); Neutrophil % 66.8 % (47-70); Platelet Count 274 K/mm3 (150-450); RBC Distribution Width CV 13.7 % (11.6-14.6); RBC Distribution Width SD 47.1 fl (35.1-43.9); Red Blood Count 5.04 M/mm3 (4.6-6.2)
[2019-06-29] MEDS: Ipratropium/Albuterol Sulfate 3 ML AMPUL.NEB INHALATION ×6 (02:57→18:34)
[2019-06-29 03:07] LABS: BUN 12 mg/dL (7-18); Creatinine, Serum 1.02 mg/dL (0.70-1.30); EST Glomerular Filtration Rate 80 mL/min (>60); Glucose 113 mg/dL (74-106)
[2019-06-29 03:08] LABS: Anion Gap 6 (5-15); BUN/Creat Ratio 11.8 RATIO (10-20); Calcium,Total 8.8 mg/dL (8.5-10.1); Chloride 106 mmol/L (98-107); Est Glom Filt Rate - Afr Amer 97 mL/min (>60); Potassium 4.6 mmol/L (3.5-5.1); Sodium Level 139 mmol/L (136-145)
--- NOTE | 2019-06-29 03:28 | PCM.HP.STD ---
Problem List (1) COPD exacerbation Status: Chronic (2) Dizziness Status: Acute (3) Presence of stent in coronary artery Status: Chronic Comment: PTCA and stenting RCA 06/27/2008 at [facility]; (4) Old myocardial infarction Status: Chronic (5) Hypoxemia Status: Acute (6) Acute on chronic respiratory failure with hypoxemia Status: Acute (7) Ischemic cardiomyopathy Status: Chronic (8) HLD (hyperlipidemia) Status: Chronic Qualifiers: Hyperlipidemia type: unspecified Qualified Code(s): E78.5 - Hyperlipidemia, unspecified (9) H/O percutaneous transluminal coronary angioplasty Status: Chronic Comment: PTCA and stenting RCA 06/27/2008 at [facility]; (10) COPD (chronic obstructive pulmonary disease) Status: Acute Qualifiers: COPD type: unspecified COPD Qualified Code(s): J44.9 - Chronic obstructive pulmonary disease, unspecified (11) Nicotine abuse Status: Chronic (12) History of pulmonary embolism Status: Chronic History of Present Illness Date of Admission: 06/29/19 Chief Complaint: shortness of breath The patient is a 58 year old M with a significant history of CAD status post stent; hyperlipidemia; tobacco abuse COPD and asthma who presented to emergency department with shortness of breath that woke him up from sleep. His symptoms started few hours before presentation. Associated with symptoms is wheezing. He denies any coughing. Emergency department doctor reported that on presentation patient was hypoxic with oxygen saturation of 85%. He had conversational dyspnea and retractions and was placed on BiPAP. Past Medical History Past Medical History (Chronic Problems): Chronic Problems (Last Reviewed 06/29/19 @ 04:24 by Godfrey Monte MD) COPD exacerbation (Chronic) Presence of stent in coronary artery (Chronic ~06/27/08) PTCA and stenting RCA 06/27/2008 at [facility]; Old myocardial infarction (Chronic) Ischemic cardiomyopathy (Chronic) HLD (hyperlipidemia) (Chronic) H/O percutaneous transluminal coronary angioplasty (Chronic) PTCA and stenting RCA 06/27/2008 at [facility]; Nicotine abuse (Chronic) History of pulmonary embolism (Chronic) Medical History: Medical History (Last Reviewed 06/29/19 @ 04:24 by Godfrey Monte MD) Paroxysmal atrial tachycardia (Inactive) I47.1 Paroxysmal ventricular tachycardia (Inactive) I47.2 Premature ventricular contraction (Inactive) I49.3 Presence of stent in coronary artery (Chronic) Onset Date: ~06/27/08 Z95.5 PTCA and stenting RCA 06/27/2008 at [facility]; Old myocardial infarction (Chronic) I25.2 Atherosclerotic heart disease of [place] coronary artery without angina pectoris (Inactive) I25.10 PTCA and stenting RCA 06/27/2008 at [facility]; Ischemic cardiomyopathy (Chronic) I25.5 HLD (hyperlipidemia) (Chronic) E78.5 COPD (chronic obstructive pulmonary disease) (Acute) J44.9 BPH (benign prostatic hyperplasia) N40.0 CAD (coronary artery disease) (Inactive) I25.10 PTCA and stenting RCA 06/27/2008 at [facility]; Allergies latex Allergy (Verified 06/29/19 02:38) Rash varenicline tartrate [From Chantix] Allergy (Verified 06/29/19 02:38) Hives aspirin Adverse Reaction (Verified 06/29/19 02:38) Upset Stomach Home Medications: Ambulatory Orders Medication Instructions Recorded Clopidogrel Bisulfate [Plavix] 75 mg PO QHS 06/16/13 Cholecalciferol (VIT D3) [Vitamin 2,000 units PO QHS 03/25/16 D3] Omeprazole [Prilosec] 40 mg PO DAILY 05/13/17 Aspirin [Aspirin, Baby] 81 mg PO DAILY@0800 06/20/17 cyanocobalamin (vit B-12) 1,000 1,000 mcg PO QHS 10/15/17 mcg tablet Cetirizine HCl [Zyrtec] 10 mg PO QHS 12/14/17 Mometasone/Formoterol [Dulera 200 2 puff IH BID 06/30/18 Mcg/5 Mcg Inhaler] atorvastatin 20 mg tablet 20 mg PO DAILY #90 tab 12/02/18 albuterol sulfate HFA 90 2 puff INHALATION Q2H PRN #18 g 03/10/19 mcg/actuation aerosol inhaler Surgical History: Surgical History (Last Reviewed 06/29/19 @ 04:24 by Godfrey Monte MD) H/O percutaneous transluminal coronary angioplasty (Chronic) Z98.61 PTCA and stenting RCA 06/27/2008 at [facility]; History of hernia repair Z98.890, Z87.19 History of left hip replacement Z96.642 Surgical History: angioplasty, - - PCI x1, left total hip replacement, hernia repair. Psychiatric History: No pertinent psych hx Lives: Alone Smoking Status: Current every day smoker - Patient reports that he quit smoking a day before presentation. Tobacco Use: Cigarettes Alcohol: None - *Family History Maternal Family History: Family History (Last Reviewed 06/29/19 @ 04:25 by Godfrey Monte MD) Father CAD (coronary artery disease) Heart disease Myocardial infarction Mother Diabetes Brother Hypertension History Items: Diabetes Paternal Family History: Family History (Last Reviewed 06/29/19 @ 04:25 by Godfrey Monte MD) Father CAD (coronary artery disease) Heart disease Myocardial infarction Mother Diabetes Brother Hypertension History Items: High Cholesterol, Heart Disease, Hypertension Review of Systems Constitutional: Denies: Chills, Fever, Weight Change HEENT: Denies: Head Aches, Sinus Congestion, Sinus Drainage Cardiovascular: Denies: Chest Pain, Palpitations Respiratory: Reports: Shortness of breath at rest, Wheezing. Denies: Cough, Sputum production Gastrointestinal: Denies: Abdominal Pain, Nausea, Vomiting Genitourinary: Denies: Dysuria Musculoskeletal: Denies: Joint Pain, Joint Tenderness Skin: Denies: Rash, Wounds Neurological: Denies: Numbness, Tingling, Focal weakness Psychiatric: Denies: Anxiety, Depression, Homicidal Ideations, Suicidal Ideations Hematologic/ Lymphatic: Denies: Easy Bruising, Easy Bleeding VTE Information - Inpt Only VTE Present on Admission: No VTE Mechan Device Prophylaxis: None VTE Pharm Prophylaxis ordered?: Yes - Physical Exam Vitals/I&O's: Vital Signs Temp Pulse Resp BP Pulse Ox 97.7 F L 130 H 37 H 162/107 H 97 06/29/19 02:44 06/29/19 03:01 06/29/19 03:01 06/29/19 02:39 06/29/19 03:01 Oxygen Delivery Method Bi-pap Weight: 68.9 kg Body Mass Index (BMI) 23.1 General: Alert, Oriented x3, Cooperative HEENT: Atraumatic, PERRLA, EOMI, Normocephalic Neck: Supple, No JVD, Negative Carotid Bruits Lungs: Rhonchi, Short of Breath, Tachypneic, Using Accessory Muscles, Wheezes, - - On BiPAP. With conversational dyspnea. Cardiovascular: Normal S1, Normal S2, No murmurs, Tachycardic Abdomen: Bowel Sounds Present, Soft, Non Tender Extremities: No edema, Capillary Refill Less than 3 Seconds Skin: No rashes, No breakdown Musculoskeletal: No Tenderness to Palpation of Joints or Extremities Neurological: Cranial nerves II-XII grossly intact Psych/Mental Status: Normal Affect, Appropriate Laboratory Results 06/29/19 02:45: WBC 11.0, RBC 5.04, Hgb 15.3, Hct 47.0, MCV 93.3, MCH 30.4, MCHC 32.6, RDW Std Deviation 47.1 H, RDW Coeff of [place] 13.7, Plt Count 274, MPV 9.5, Immature Gran % (Auto) 0.500, Neut % (Auto) 66.8, Lymph % (Auto) 15.5 L, [place] % (Auto) 11.2 H, Eos % (Auto) 5.5 H, Baso % (Auto) 0.5, Absolute Neuts (auto) 7.3, Absolute Lymphs (auto) 1.71, Nucleated RBC % 0 06/29/19 02:45: Sodium 139, Potassium 4.6, Chloride 106, Carbon Dioxide 27.0, Anion Gap 6, BUN 12, Creatinine 1.02, Estim Creat Clear Calc 77.30, Est GFR (MDRD) Af Amer 97, Est GFR (MDRD) Non-Af 80, BUN/Creatinine Ratio 11.8, Glucose 113 H, Calcium 8.8 Current Medications Albuterol Sulfate (Ventolin Aerosols) 2.5 mg INHALATION Q5M LAYLA Stop: 06/29/19 03:36 Assessment/Plan All Active Problems (Last Reviewed 06/29/19 @ 04:24 by Godfrey Monte MD) Dizziness (Acute) Hypoxemia (Acute) Acute on chronic respiratory failure with hypoxemia (Acute) COPD (chronic obstructive pulmonary disease) (Acute) Pulmonary embolism (Resolved) The patient is a 58 year old M with a significant history of CAD status post stent; hyperlipidemia; tobacco abuse COPD and asthma who presented to emergency department with shortness of breath that woke him up from sleep; and with wheezing; conversational dyspnea; retractions; and was severely hypoxic and required BiPAP consistent with acute hypoxemic respiratory failure secondary to acute exacerbation of COPD. Acute hypoxemic respiratory failure secondary COPD/asthma exacerbation CXR independently reviewed confirms no acute cardiopulmonary process but with nonspecific diffuse interstitial prominence EKG independently reviewed confirms sinus tachycardia Scheduled DuoNeb Albuterol as needed Received Solu-Medrol at the emergency department. Solu-Medrol continued . Patient was started on BiPAP at the emergency department BiPAP continued. We will keep patient n.p.o. except for meds while on BiPAP. Antibiotics for severe COPD exacerbation: Levaquin On home ICS?lab. ICS continued Cetirizine continued CAD Status post stent Aspirin and Lipitor continued Plavix continued Tobacco abuse Reportedly he quit smoking a day before presentation. Declined nicotine patch Counseled. GERD López continued DVT Prophylaxis Subcutaneous Lovenox Code Visit Inpatient E&M: 10158 Init Hosp L3
[2019-06-29 03:31] LABS: Allen Test POS; Base Excess -1 mmol/L (-2 to +2); Bicarbonate 23.7 mmol/L (22-26); Blood Gas Specimen Type ART; EPAP 8; FI02 40; IPAP 16; PO2 87 mmHG (75-100); RR 12; SITE L Radial; SO2 97 % (95-99); Time Given 320; Total Carbon Dioxide 25 mmol/L; pCO2 38.5 mmHg (35-45)
[2019-06-29] MEDS: Albuterol 2.5 MG/3 ML VIAL.NEB. INHALATION ×3 (03:31→20:33)
[2019-06-29] MEDS: levoFLOXacin IV 500 MG/100 ML BAG 100 MG IV ×2 (06:18→21:20)
[2019-06-29] MEDS: 0.9% Saline Lock 10 ML Syringe IV ×3 (06:19→22:54)
--- NOTE | 2019-06-29 10:14 | CASEMGMT ---
RN CM Assessment Introduced role of RN CM to patient.? Patient is alert, oriented and able?to participate in RN CM Assessment. ?Care providers, pharmacy, and demographics verified. Presentation: C/o SOB and increased wheezing. Presented in Respiratory distress. H/o Asthma and COPD, CAD, Stent. Admit Dx: Acute Hypoxemic Respiratory failure Re-Admit: No. 06/23/19- ER for Rt knee Pain. OBS 05/14/19 for Near Syncope. ER 05/15/19 for Cough, Asthma, SOB Barriers/Issues: None. Patient state listed address is his mothers and is his mailing address. Patient lives at [address] [address]. States he is a [place]. [facility] Cpap is provided and handled by the [facility], states has not worn it in one year d/t [facility] not [facility] appropriate [facility] and having difficulty contacting someone or receiving return call to obtain necessary equipment. PCP: Alexey Mayberry Specialists: Cardio- Dr Upton, Pulm at [facility] in [place]- Dr Ramirez, PCP at [facility]- Dr Chavarria Preferred Pharmacy: [facility] Insurance: [employer], [employer]. is a [place] and receives care at the [facility]. Rx Benefit:?Yes ?LNOK: Arier Clarice Andrade LW/HPOA: Both on file with [facility]. HPOA- Arier Clarice Andrade Living Arrangements:? Lives with a xavier in a apartment, States xavier currently at a SNF for hip surgery. Denies any steps to enter apartment. ADL?s: Independent with ambulation and ADLs Transportation: Patient drives. Denies any transportation issues or concerns. DME: CPAP-[facility], has not used x1 yr. Nebulizer. HHC: None SNF: None Goal: Home and does not think will have any needs. has plenty of Neb medication and HHN for his h/o COPD and Asthma. Denies any issues/concerns/ or questions at this time with DC planning. Aware CM remains available for any emerging needs. DC PLAN: Home with no anticipated needs identified. CM to follow Oxygen status for possible Home O2. LA Lynch
[2019-06-29] MEDS: Pantoprazole Sodium 40 MG Tablet PO (10:38)
[2019-06-29] MEDS: Aspirin 81 MG TAB.CHEW PO (10:38)
--- NOTE | 2019-06-29 20:22 | NURSING ---
This RN called respiratory therapy at this time time and notified them that pt lung sounds are wheezy, his breathing is labored, and his oxygen level had to be bumped up to 3L NC. This RN requested a PRN breathing treatment at this time.
[2019-06-29] MEDS: Loratadine 10 MG Tablet PO (21:01)
[2019-06-29] MEDS: Atorvastatin Calcium 20 MG Tablet PO (21:01)
[2019-06-29] MEDS: Clopidogrel Bisulfate 75 MG Tablet PO (21:01)
[2019-06-29] MEDS: Cyanocobalamin 500 MCG Tablet 1000 MCG PO (21:02)
--- NOTE | 2019-06-29 21:43 | CPS ---
IPAP/EPAP titrated for pt.'s comfort
--- NOTE | 2019-06-29 22:14 | NURSING ---
This RN entered room and found pt with bipap off, breathing labored, tachypnic. Attempted to place pt back on bipap. Pt states pressure is too high on bipap. Respiratory called into room. Respiratory adjusting bipap settings at this time. This RN explained to patient that wearing a bipap is going to help him breathe easier; and that it is imperative that he wears his bipap at this time.
[2019-06-29] MEDS: LORazepam 2 MG/ML Syringe 0.5 MG IV (22:50)
--- NOTE | 2019-06-29 22:50 | RAD_ITS ---
STUDY: X-RAY CHEST REASON FOR EXAM: Male, 58 years old. Dyspnea. TECHNIQUE: Single AP portable view of the chest. COMPARISON: June 29, 2017, earlier the same day there is interstitial accentuation of the lungs. FINDINGS: There are monitoring devices. The lungs are clear and expanded. There is no demonstrated pleural abnormality. Normal size heart. Normal mediastinum and winnie. Normal visualized pulmonary arteries. Normal visualized aortic arch and descending thoracic aorta. Normal visualized thoracic spine. There is stable healed left rib fractures. There is a healed left clavicle fracture. There is no demonstrated abnormality of the visualized soft tissue structures of the upper abdomen. RAD/Chest 1 View (Portable) IMPRESSION: Degenerative changes, as described above. No demonstrated acute cardiopulmonary process. Electronically Signed: Adeel Brooks MD at 23:52 EDT , Service support ,
--- NOTE | 2019-06-29 22:59 | PCM.HOSP.N ---
Hospitalist Note Patient with increased respiratory rate, increased work of breathing, accessory muscle usage, BIPAP placed 9:30 pm, taken off per patient unclear timeline but replaced per Pulmonary during the evening, worsened dyspnea with call to RN. Patient is tachycardic, tachypnea, obvious accessory muscle usage, diaphoretic noting that he is extremely anxious and feeling short of breath with audible wheezing. Requested aerosols, chest x-ray, ABG. Continue BiPAP currently, Ativan 0.5 Milgram IV x1 given anxiety administered. Patient states he has been intubated prior. Discussed possible need and he is amenable for intubation if necessary. Will transition to the ICU, await ABG, continue BiPAP to see if able to improve without further aggressive intubation. Pulmonary will be consulted.
--- NOTE | 2019-06-29 23:06 | NURSING ---
Report called to MARION Chung in ICU.
--- NOTE | 2019-06-29 23:25 | NURSING ---
Dr Adler in the ICU, was informed of pt decline, accessory muscle use and pt is tripoding with BiPAP on at this time. Dr Adler is preparing to intubate patient at this time, due to him not tolerating the BiPAP.
[2019-06-29] MEDS: Midazolam 2 MG/2 ML Syringe 4 MG IV (23:38)
[2019-06-29] MEDS: Etomidate 20 MG/10 ML Vial IV (23:38)
--- NOTE | 2019-06-29 23:41 | RAD_ITS ---
STUDY: X-RAY CHEST REASON FOR EXAM: Male, 58 years old. Endotracheal tube placement. TECHNIQUE: Single AP portable view of the chest. COMPARISON: 06/21/2019. FINDINGS: The endotracheal tube has the tip approximately 4.5 cm above luli. The nasogastric tube has the tip projecting over the gastric fundus. The lungs are normally expanded with mild left midlung atelectasis. There are multiple left-sided rib fractures. Lung noe are otherwise clear. There is no demonstrated pleural abnormality. Normal size heart. Normal mediastinum and winnie. Normal visualized pulmonary arteries. There is atherosclerotic tortuosity of the aortic arch and descending thoracic aorta. There are diffuse degenerative changes of the visualized thoracic spine. There are old left-sided rib fractures. There is an old left-sided clavicular fracture. Degenerative disease of the shoulders noted. There is no demonstrated abnormality of the visualized soft tissue structures of the upper abdomen. RAD/Chest 1 View (Portable) IMPRESSION: Mild left midlung atelectasis, otherwise no acute cardiopulmonary process seen. Nasogastric tube as described above. Electronically Signed: Fern Mckeon MD at 0:47 EDT , Service support ,
--- NOTE | 2019-06-29 23:41 | RAD_ITS ---
STUDY: X-RAY - ABDOMEN/PELVIS REASON FOR EXAM: Male, 58 years old. Tube placement. TECHNIQUE: Single AP view of the abdomen / pelvis. COMPARISON: None. FINDINGS: Normal visualized lung bases. The nasogastric tube has the tip projecting in the region of the stomach. There is an unremarkable bowel gas pattern. There is no demonstrated free abdominal air. The visualized liver, spleen and kidneys are grossly normal in size and morphology. Normal soft tissue structures. Normal visualized osseous structures. RAD/Abdomen Single View (Portable) IMPRESSION: Nasogastric tube as described above. Electronically Signed: Fern Mckeon MD at 0:48 EDT , Service support ,
[2019-06-29] MEDS: fentaNYL drip 100 ML 2.5 MCG IV (23:42)
[2019-06-29] MEDS: Propofol 10MG/Ml 1,000 MG/100 ML Bottle 3.9 MG CONT INF (23:42)
--- NOTE | 2019-06-29 23:42 | NURSING ---
2315: Patient arrived to ICU bed 1 on bipap, Dr. Adler present 2330: respiratory present preparing for intubation 2335: Dr. Adler present in room for intubation 2337: IV started in Right forearm by Cecilio Fung RN 2338: etomindate 20mg IV administered by Allyson Flores RN 2338: versed 4mg IV administered by Allyson Flores RN 2339: Intubated with 7.5 ETT, 23 at the lip, bilateral breath sounds noted 2341: Propofol 100mg IV administered by Allyson Adler MD
[2019-06-30] VITALS (41 sets, daily range): BP systolic 77–152; BP diastolic 54–121; PULSE 84–131; RESP 9–27; TEMP 36.8–38.1; O2SAT 92–100
[2019-06-30] MEDS: 0.9% Normal Saline 1,000 ML 100 ML IV ×3 (00:22→23:10)
[2019-06-30 00:31] LABS: Allen Test POS; Base Excess 2 mmol/L (-2 to +2); Bicarbonate 30.4 mmol/L (22-26); Blood Gas Specimen Type ART; FI02 50; Mode A-C; O2 Delivery Device Vent; PEEP 5; PO2 102 mmHG (75-100); RR 14; SITE L Brachial; SO2 96 % (95-99); Time Given 15; Total Carbon Dioxide 33 mmol/L; Vt 400; pH 7.19 (7.35-7.45)
--- NOTE | 2019-06-30 00:54 | CPS ---
critical value on ABG told to Dr Adler at 06/30/19 0044
--- NOTE | 2019-06-30 01:31 | NURSING ---
This RN attempted to notify pt next of kin (daughter Clarice) at this time to notify her of pt transfer to ICU. No answer on phone.
--- NOTE | 2019-06-30 01:33 | CPS ---
Pt. switched from BiPaP to AVAPS; pt. started showing signs of respiratory distress
[2019-06-30 01:37] LABS: CPK Total, Creatine Kinase 129 U/L (39-308); Triglycerides 87 mg/dL
[2019-06-30] MEDS: Ipratropium/Albuterol Sulfate 3 ML AMPUL.NEB INHALATION ×6 (03:30→23:08)
[2019-06-30] MEDS: LORazepam 2 MG/ML Syringe IV (03:44)
--- NOTE | 2019-06-30 04:17 | CPS ---
Dr. Devries aware of new ventilator settings
[2019-06-30] MEDS: fentaNYL drip 100 ML 17.5 MCG IV (04:35)
[2019-06-30] MEDS: Propofol 10MG/Ml 1,000 MG/100 ML Bottle 15.8 MG CONT INF (04:35)
[2019-06-30 04:36] LABS: Absolute Lymphocyte Count 0.62 X10^3/uL (0.83-4.51); Absolute Neutrophil Count 22.2 X10^3/uL (2.0-7.7); Basophil# 0.02 X10^3/uL; Basophil% 0.1 % (0-1); Hematocrit 45.4 % (40-54); Hemoglobin 14.5 g/dL (13.0-16.5); Lymphocyte # 0.62 X10^3/ul (4.0); Lymphocyte % 2.4 % (19-41); Mean Corp Hgb Conc 31.9 g/dL (32-36); Mean Corpuscular Hgb 30.3 pg (27.0-32.0); Mean Corpuscular Volume 94.8 fL (80-94); Mean Platelet Vol. 9.8 fl (6.2-12.0); Monocyte# 2.84 X10^3/uL; NRBC Flagged by Analyzer 0 % (0-5); Neutrophil # 22.17 X10^3/uL (2.7-7.7); Neutrophil % 85.7 % (47-70); POSITIVE DIFFERENTIAL YES; POSITIVE MORPHOLOGY YES; Platelet Count 297 K/mm3 (150-450); RBC Distribution Width CV 13.8 % (11.6-14.6); RBC Distribution Width SD 48.3 fl (35.1-43.9); Red Blood Count 4.79 M/mm3 (4.6-6.2); White Blood Count 25.9 K/mm3 (4.4-11.0)
[2019-06-30 04:38] LABS: Differential Indicated SCAN CRITERIA MET
[2019-06-30 04:52] LABS: BUN 25 mg/dL (7-18); Creatinine, Serum 1.47 mg/dL (0.70-1.30); Estimated Creatinine Clearance 51.52 ml/min; Glucose 166 mg/dL (74-106)
[2019-06-30 04:53] LABS: Anion Gap 2 (5-15); Calcium,Total 8.6 mg/dL (8.5-10.1); Chloride 103 mmol/L (98-107); EST Glomerular Filtration Rate 52 mL/min (>60); Est Glom Filt Rate - Afr Amer 63 mL/min (>60)
[2019-06-30 04:56] LABS: Potassium 7.5 mmol/L (3.5-5.1); Sodium Level 135 mmol/L (136-145)
--- NOTE | 2019-06-30 04:57 | PCM.HOSP.N ---
Hospitalist Note Potassium 7.5, no evidence of hemolysis. Will administer calcium gluconate, insulin 10 unit x 1, bicarb, Kayexalate 30 g x 1 with pending EKG as well as repeat BMP within the next 1 to 2 hours.
[2019-06-30 05:07] LABS: Differential Comment SCANNED
[2019-06-30] MEDS: Sodium Bicarbonate 8.4% 50 ML Syringe 50 MEQ IV (05:25)
[2019-06-30] MEDS: Albuterol 2.5 MG/3 ML VIAL.NEB. INHALATION (05:25)
[2019-06-30] MEDS: Sodium Polystyrene Sulfonate 15 GM/60 ML UDC 30 GM PO (05:25)
[2019-06-30 06:05] LABS: Allen Test POS; Base Excess 5 mmol/L (-2 to +2); Bicarbonate 31.5 mmol/L (22-26); Blood Gas Specimen Type ART; FI02 60; Mode VC+; O2 Delivery Device Vent; PEEP 10; PO2 183 mmHG (75-100); RR 16; SITE L Radial; SO2 99 % (95-99); Time Given 600; Total Carbon Dioxide 33 mmol/L; Vt 450; pH 7.29 (7.35-7.45)
[2019-06-30] MEDS: TITRATION PARAMETER CHANGE 1 EACH IV (07:08)
[2019-06-30 08:06] LABS: Anion Gap 5 (5-15); BUN 29 mg/dL (7-18); BUN/Creat Ratio 15.6 RATIO (10-20); Calcium,Total 9.3 mg/dL (8.5-10.1); Chloride 101 mmol/L (98-107); Creatinine, Serum 1.86 mg/dL (0.70-1.30); EST Glomerular Filtration Rate 40 mL/min (>60); Est Glom Filt Rate - Afr Amer 48 mL/min (>60); Estimated Creatinine Clearance 40.72 ml/min; Glucose 157 mg/dL (74-106); Sodium Level 137 mmol/L (136-145)
--- NOTE | 2019-06-30 08:33 | CON.PCM_ITS ---
Problem List (1) COPD exacerbation Status: Chronic (2) Near syncope Status: Inactive (3) Paroxysmal atrial tachycardia Status: Inactive (4) Paroxysmal ventricular tachycardia Status: Inactive (5) Presence of stent in coronary artery Status: Chronic Comment: PTCA and stenting RCA 06/27/2008 at [place]; (6) Old myocardial infarction Status: Chronic (7) Acute on chronic respiratory failure with hypoxemia Status: Acute (8) Atherosclerotic heart disease of [place] coronary artery without angina pectoris Status: Inactive Qualifiers: [place] vs. transplanted heart: [place] heart Qualified Code(s): I25.10 - Atherosclerotic heart disease of [place] coronary artery without angina pectoris Comment: PTCA and stenting RCA 06/27/2008 at [place]; (9) Ischemic cardiomyopathy Status: Chronic (10) HLD (hyperlipidemia) Status: Chronic Qualifiers: Hyperlipidemia type: unspecified Qualified Code(s): E78.5 - Hyperlipidemia, unspecified (11) H/O percutaneous transluminal coronary angioplasty Status: Chronic Comment: PTCA and stenting RCA 06/27/2008 at [place]; (12) COPD (chronic obstructive pulmonary disease) Status: Acute Qualifiers: COPD type: unspecified COPD Qualified Code(s): J44.9 - Chronic obstructive pulmonary disease, unspecified (13) Dyspepsia and disorder of function of stomach Status: Inactive (14) Nicotine abuse Status: Chronic (15) History of pulmonary embolism Status: Chronic Reason for Consult Date of Consultation: 06/30/19 Reason for Consultation: Respiratory failure History of Present Illness: The patient is a 58 year old M, with past medical history listed below, who presented to [facility] on 06/29/2019 secondary to progressive shortness of breath. Patient reportedly had become acutely short of breath approximately 1 to 2 hours prior to presentation to the hospital. Patient had noted increased wheezing, but denied any URI type symptoms such as sinus congestion, fever, chills or hemoptysis. Patient reportedly was in significant respiratory distress on original presentation. In the emergency department, patient was given IV Solu-Medrol, DuoNeb and placed on BiPAP therapy. Patient reportedly was noted to be 85% on presentation with c onversational dyspnea and retractions. Patient reportedly responded well to therapy and was transferred to the PCU for further evaluation. However, overnight, patient started to have increased difficulty with respirations. Hospitalist evaluated the patient and clarified CODE STATUS. Patient was intubated. Following intubation, there was significant difficulty with ventilator synchrony. ABG showed significant acidosis. Patient was sedated with propofol and fentanyl per routine. I was called overnight and patient was placed on Ativan. On my evaluation this morning, patient was a RASS of -5. Patient still had occasional dyssynchrony, but overall was receiving his volumes. Patient was noted to have air trapping on assessment of ventilator occurs. PEEP was increased to 10 with improvement in air trapping. Repeat ABG showed improved acidosis. FiO2 has been decreased from 60% to 40%. Did discuss with the hospitalist. Apparently, patient is seen by the MT for advanced COPD, but exact severity is unclear. Patient reportedly has been intubated previously for respiratory distress. Patient is not able to provide a review of systems at this time. Patient's daughter is expected at rounds this morning to provide more information. Past Medical History Past Medical History (Chronic Problems): Chronic Problems (Last Reviewed 06/29/19 @ 04:24 by Godfrey Monte MD) COPD exacerbation (Chronic) Presence of stent in coronary artery (Chronic ~06/27/08) PTCA and stenting RCA 06/27/2008 at [place]; Old myocardial infarction (Chronic) Ischemic cardiomyopathy (Chronic) HLD (hyperlipidemia) (Chronic) H/O percutaneous transluminal coronary angioplasty (Chronic) PTCA and stenting RCA 06/27/2008 at [place]; Nicotine abuse (Chronic) History of pulmonary embolism (Chronic) Medical History: Medical History (Last Reviewed 06/29/19 @ 04:24 by Godfrey Monte MD) Paroxysmal atrial tachycardia (Inactive) I47.1 Paroxysmal ventricular tachycardia (Inactive) I47.2 Premature ventricular contraction (Inactive) I49.3 Presence of stent in coronary artery (Chronic) Onset Date: ~06/27/08 Z95.5 PTCA and stenting RCA 06/27/2008 at [place]; Old myocardial infarction (Chronic) I25.2 Atherosclerotic heart disease of [place] coronary artery without angina pectoris (Inactive) I25.10 PTCA and stenting RCA 06/27/2008 at [place]; Ischemic cardiomyopathy (Chronic) I25.5 HLD (hyperlipidemia) (Chronic) E78.5 COPD (chronic obstructive pulmonary disease) (Acute) J44.9 BPH (benign prostatic hyperplasia) N40.0 CAD (coronary artery disease) (Inactive) I25.10 PTCA and stenting RCA 06/27/2008 at [place]; Allergies latex Allergy (Verified 06/29/19 02:38) Rash varenicline tartrate [From Chantix] Allergy (Verified 06/29/19 02:38) Hives aspirin Adverse Reaction (Verified 06/29/19 02:38) Upset Stomach Home Medications: Ambulatory Orders Medication Instructions Recorded Clopidogrel Bisulfate [Plavix] 75 mg PO QHS 06/16/13 Cholecalciferol (VIT D3) [Vitamin 2,000 units PO QHS 03/25/16 D3] Omeprazole [Prilosec] 40 mg PO DAILY 05/13/17 Aspirin [Aspirin, Baby] 81 mg PO DAILY@0800 06/20/17 cyanocobalamin (vit B-12) 1,000 1,000 mcg PO QHS 10/15/17 mcg tablet Cetirizine HCl [Zyrtec] 10 mg PO QHS 12/14/17 Mometasone/Formoterol [Dulera 200 2 puff IH BID 06/30/18 Mcg/5 Mcg Inhaler] atorvastatin 20 mg tablet 20 mg PO DAILY #90 tab 12/02/18 albuterol sulfate HFA 90 2 puff INHALATION Q2H PRN #18 g 03/10/19 mcg/actuation aerosol inhaler Surgical History: Surgical History (Last Reviewed 06/29/19 @ 04:24 by Godfrey Monte MD) H/O percutaneous transluminal coronary angioplasty (Chronic) Z98.61 PTCA and stenting RCA 06/27/2008 at [place]; History of hernia repair Z98.890, Z87.19 History of left hip replacement Z96.642 Surgical History: angioplasty, - - PCI x1, left total hip replacement, hernia repair. Psychiatric History: No pertinent psych hx Lives: Alone Smoking Status: Current every day smoker Tobacco Use: Cigarettes Alcohol: None - *Family History Maternal Family History: Family History (Last Reviewed 06/29/19 @ 04:25 by Godfrey Monte MD) Father CAD (coronary artery disease) Heart disease Myocardial infarction Mother Diabetes Brother Hypertension History Items: Diabetes Paternal Family History: Family History (Last Reviewed 06/29/19 @ 04:25 by Godfrey Monte MD) Father CAD (coronary artery disease) Heart disease Myocardial infarction Mother Diabetes Brother Hypertension History Items: High Cholesterol, Heart Disease, Hypertension Review of Systems Unable to obtain accurate/complete ROS d/t: Intubated and sedated Objective: Chest x-ray was personally reviewed. This does show a possible lingular infiltrate. She does have an echocardiogram dated 05/14/2019 shows an EF of 65% with normal diastolic function. Unable to estimate pulmonary artery pressures. No significant valvular abnormalities was noted, but technically difficult study. No pulmonary function tests are available for review - Physical Exam Vitals/I&O's: Vital Signs Temp Pulse Resp BP Pulse Ox 37.9 C H 111 H 17 80/61 L 92 06/30/19 07:00 06/30/19 07:00 06/30/19 07:00 06/30/19 07:00 06/30/19 07:00 Oxygen Flow Rate (L/min) 3 Oxygen Delivery Method Mechanical Ventilator Weight: 65.7 kg Body Mass Index (BMI) 22.0 Intake and Output for Last 24 Hours 06/28/19 06/29/19 06/30/19 23:59 23:59 23:59 Intake Total 2127.00 / 2128.92 1255.71 / 1255.71 Output Total 3125 / 3125 100 / 100 Balance -998.00 / -996.08 1155.71 / 1155.71 General: - - Intubated and sedated. Fair vent synchrony. Appears older than stated age. HEENT: Atraumatic, PERRLA, EOMI, Normocephalic, - - Scleral injection without icterus Oral: Moist Mucosa, No Gingival or Mucosal Lesions/ Ulcerations Neck: Supple, No JVD, No Nodes, Trachea Midline Lungs: No rhonchi, No rales, Diminished, Wheezes - Globally, - - Symmetric expansion. Cardiovascular: Normal S1, Normal S2, No murmurs, No rub noted, No Gallop, Tachycardic Abdomen: Bowel Sounds Present, Soft, Non Tender, Non-Distended Extremities: No clubbing, No cyanosis, No edema Skin: No rashes, No breakdown Musculoskeletal: No Tenderness to Palpation of Joints or Extremities Lymphatic: No Cervical, Supraclavicular, or Inguinal Adenopathy Neurological: Cranial nerves II-XII grossly intact, Neuro grossly intact - Somewhat limited given deep sedation Psych/Mental Status: Flat Affect Laboratory Tests 06/30/19 06/30/19 06/30/19 Range/Units 07:40 06:03 04:10 WBC (4.4-11.0) K/mm3 RBC (4.6-6.2) M/mm3 Hgb (13.0-16.5) g/dL Hct (40-54) % MCV (80-94) fL MCH (27.0-32.0) pg MCHC (32-36) g/dL RDW Std Deviation (35.1-43.9) fl RDW Coeff of [place] (11.6-14.6) % Plt Count (150-450) K/mm3 MPV (6.2-12.0) fl Immature Gran % (Auto) (0.0-0.9) % Neut % (Auto) (47-70) % Lymph % (Auto) (19-41) % [place] % (Auto) (0-10) % Eos % (Auto) (0-5) % Baso % (Auto) (0-1) % Absolute Neuts (auto) (2.0-7.7) X10^3/uL Absolute Lymphs (auto) (0.83-4.51) X10^3/uL Nucleated RBC % (0-5) % Differential Comment Diff Path Review Specimen Type ART Sample Site L Radial pH 7.29 L (7.35-7.45) Bicarbonate Actual 31.5 H (22-26) mmol/L POC Total CO2 33 mmol/L Base Excess 5 H (-2 to +2) mmol/L O2 Saturation 99 (95-99) % O2 % 60 ABG pCO2 65.0 H (35-45) mmHg ABG pO2 183 H (75-100) mmHG Maykel Test POS Respiration Rate 16 O2 Delivery Device Vent Minute Volume 10.00 Vent Mode VC+ Tidal Volume 450 POC PEEP 10 EPAP IPAP Blood Gas Notified Whom ICU Blood Gas Notified Time 600 Sodium 137 135 L (136-145) mmol/L Potassium 7.0 H* 7.5 H* (3.5-5.1) mmol/L Chloride 101 103 (98-107) mmol/L Carbon Dioxide 31.0 30.0 (21.0-32.0) mmol/L Anion Gap 5 2 L (5-15) BUN 29 H 25 H (7-18) mg/dL Creatinine 1.86 H 1.47 H (0.70-1.30) mg/dL Estim Creat Clear Calc 40.72 51.52 ml/min Est GFR (MDRD) Af Amer 48 L 63 (>60) mL/min Est GFR (MDRD) Non-Af 40 L 52 L (>60) mL/min BUN/Creatinine Ratio 15.6 17.0 (10-20) RATIO Glucose 157 H 166 H (74-106) mg/dL Calcium 9.3 8.6 (8.5-10.1) mg/dL Total Creatine Kinase (39-308) U/L Triglycerides ( - 199) mg/dL 06/30/19 06/30/19 06/30/19 Range/Units 04:10 01:03 00:20 WBC 25.9 H (4.4-11.0) K/mm3 RBC 4.79 (4.6-6.2) M/mm3 Hgb 14.5 (13.0-16.5) g/dL Hct 45.4 (40-54) % MCV 94.8 H (80-94) fL MCH 30.3 (27.0-32.0) pg MCHC 31.9 L (32-36) g/dL RDW Std Deviation 48.3 H (35.1-43.9) fl RDW Coeff of [place] 13.8 (11.6-14.6) % Plt Count 297 (150-450) K/mm3 MPV 9.8 (6.2-12.0) fl Immature Gran % (Auto) 0.800 (0.0-0.9) % Neut % (Auto) 85.7 H (47-70) % Lymph % (Auto) 2.4 L (19-41) % [place] % (Auto) 11.0 H (0-10) % Eos % (Auto) 0.0 (0-5) % Baso % (Auto) 0.1 (0-1) % Absolute Neuts (auto) 22.2 H (2.0-7.7) X10^3/uL Absolute Lymphs (auto) 0.62 L (0.83-4.51) X10^3/uL Nucleated RBC % 0 (0-5) % Differential Comment SCANNED Diff Path Review May foll Specimen Type ART Sample Site L Brachial pH 7.19 L* (7.35-7.45) Bicarbonate Actual 30.4 H (22-26) mmol/L POC Total CO2 33 mmol/L Base Excess 2 (-2 to +2) mmol/L O2 Saturation 96 (95-99) % O2 % 50 ABG pCO2 80.0 H* (35-45) mmHg ABG pO2 102 H (75-100) mmHG Maykel Test POS Respiration Rate 14 O2 Delivery Device Vent Minute Volume 9.00 Vent Mode A-C Tidal Volume 400 POC PEEP 5 EPAP IPAP Blood Gas Notified Whom [facility] Blood Gas Notified Time 15 Sodium (136-145) mmol/L Potassium (3.5-5.1) mmol/L Chloride (98-107) mmol/L Carbon Dioxide (21.0-32.0) mmol/L Anion Gap (5-15) BUN (7-18) mg/dL Creatinine (0.70-1.30) mg/dL Estim Creat Clear Calc ml/min Est GFR (MDRD) Af Amer (>60) mL/min Est GFR (MDRD) Non-Af (>60) mL/min BUN/Creatinine Ratio (10-20) RATIO Glucose (74-106) mg/dL Calcium (8.5-10.1) mg/dL Total Creatine Kinase 129 (39-308) U/L Triglycerides 87 ( - 199) mg/dL 06/29/19 06/29/19 06/29/19 Range/Units 03:28 02:45 02:45 WBC 11.0 (4.4-11.0) K/mm3 RBC 5.04 (4.6-6.2) M/mm3 Hgb 15.3 (13.0-16.5) g/dL Hct 47.0 (40-54) % MCV 93.3 (80-94) fL MCH 30.4 (27.0-32.0) pg MCHC 32.6 (32-36) g/dL RDW Std Deviation 47.1 H (35.1-43.9) fl RDW Coeff of [place] 13.7 (11.6-14.6) % Plt Count 274 (150-450) K/mm3 MPV 9.5 (6.2-12.0) fl Immature Gran % (Auto) 0.500 (0.0-0.9) % Neut % (Auto) 66.8 (47-70) % Lymph % (Auto) 15.5 L (19-41) % [place] % (Auto) 11.2 H (0-10) % Eos % (Auto) 5.5 H (0-5) % Baso % (Auto) 0.5 (0-1) % Absolute Neuts (auto) 7.3 (2.0-7.7) X10^3/uL Absolute Lymphs (auto) 1.71 (0.83-4.51) X10^3/uL Nucleated RBC % 0 (0-5) % Differential Comment Diff Path Review Specimen Type ART Sample Site L Radial pH 7.40 (7.35-7.45) Bicarbonate Actual 23.7 (22-26) mmol/L POC Total CO2 25 mmol/L Base Excess -1 (-2 to +2) mmol/L O2 Saturation 97 (95-99) % O2 % 40 ABG pCO2 38.5 (35-45) mmHg ABG pO2 87 (75-100) mmHG Maykel Test POS Respiration Rate 12 O2 Delivery Device Bi / C PAP Minute Volume Vent Mode Tidal Volume POC PEEP EPAP 8 IPAP 16 Blood Gas Notified Whom ED Blood Gas Notified Time 320 Sodium 139 (136-145) mmol/L Potassium 4.6 (3.5-5.1) mmol/L Chloride 106 (98-107) mmol/L Carbon Dioxide 27.0 (21.0-32.0) mmol/L Anion Gap 6 (5-15) BUN 12 (7-18) mg/dL Creatinine 1.02 (0.70-1.30) mg/dL Estim Creat Clear Calc 77.30 ml/min Est GFR (MDRD) Af Amer 97 (>60) mL/min Est GFR (MDRD) Non-Af 80 (>60) mL/min BUN/Creatinine Ratio 11.8 (10-20) RATIO Glucose 113 H (74-106) mg/dL Calcium 8.8 (8.5-10.1) mg/dL Total Creatine Kinase (39-308) U/L Triglycerides ( - 199) mg/dL Clinical Impression(s) from Imaging Studies Chest X-Ray 06/29/19 02:47 IMPRESSION: No acute cardiopulmonary disease, stable study in the interval. Electronically Signed: Fern Mckeon MD at 3:15 EDT , Service support , Chest X-Ray 06/29/19 22:50 IMPRESSION: Degenerative changes, as described above. No demonstrated acute cardiopulmonary process. Electronically Signed: Adeel Brooks MD at 23:52 EDT , Service support , Chest X-Ray 06/29/19 23:41 IMPRESSION: Mild left midlung atelectasis, otherwise no acute cardiopulmonary process seen. Nasogastric tube as described above. Electronically Signed: Fern Mckeon MD at 0:47 EDT , Service support , KUB X-Ray 06/29/19 23:41 IMPRESSION: Nasogastric tube as described above. Electronically Signed: Fern Mckeon MD at 0:48 EDT , Service support , Current Medications Acetaminophen (Tylenol) 650 mg PO Q6H PRN PRN PRN Reason: Pain Score 1-3 /Temp>100.7 Albuterol Sulfate (Ventolin Aerosols) 2.5 mg INHALATION Q2H PRN PRN PRN Reason: SHORTNESS OF BREATH Last Admin: 06/29/19 20:33 Dose: 2.5 mg Documented by: Albuterol/Ipratropium (Duoneb) 3 ml INHALATION Q4H.RT [facility] Last Admin: 06/30/19 03:30 Dose: 3 ml Documented by: Aspirin (Aspirin, Baby) 81 mg PO DAILY@0800 [facility] Last Admin: 06/29/19 10:38 Dose: 81 mg Documented by: Atorvastatin Calcium (Lipitor) 20 mg PO QHS [facility] Last Admin: 06/29/19 21:01 Dose: 20 mg Documented by: Chlorhexidine Gluconate () 15 ml PO BID [facility] Chlorhexidine Gluconate () 1 each TOPICAL DAILY [facility] Cholecalciferol (Vitamin D) 2,000 unit PO QHS [facility] Last Admin: 06/29/19 21:02 Dose: 2,000 unit Documented by: Clopidogrel Bisulfate (Plavix) 75 mg PO QHS [facility] Last Admin: 06/29/19 21:01 Dose: 75 mg Documented by: Cyanocobalamin (Vitamin B12) 1,000 mcg PO QHS [facility] Last Admin: 06/29/19 21:02 Dose: 1,000 mcg Documented by: Dextrose (D50w Syringe) 0 gm IV X1 PRN; Protocol PRN Reason: Hypoglycemia Enoxaparin Sodium (Lovenox) 40 mg SC DAILY@1000 [facility] Last Admin: 06/29/19 10:43 Dose: Not Given Documented by: Glucagon () 1 mg IM .X1 PRN PRN Reason: Hypoglycemia Hydralazine HCl (Apresoline Iv) 10 mg IV Q4H PRN PRN PRN Reason: SBP > 160 Levofloxacin (Levaquin Iv) 500 mg in 100 mls @ 100 mls/hr IV QHS [facility] Last Infusion: 06/29/19 22:37 Dose: Infused Documented by: Sodium Chloride () 1,000 mls @ 100 mls/hr IV .Q10H [facility] Last Infusion: 06/30/19 06:44 Dose: 100 mls/hr Documented by: Fentanyl () 100 mls @ 2.5 mls/hr IV UD [facility]; Protocol Last Titration: 06/30/19 07:00 Dose: 175 mcg/hr, 17.5 mls/hr Documented by: Propofol (Diprivan) 1,000 mg in 100 mls @ 3.96 mls/hr CONT INF .Q12H [facility]; Protocol Last Titration: 06/30/19 07:00 Dose: 25 mcg/kg/min, 9.9 mls/hr Documented by: Loratadine (Claritin) 10 mg PO QHS [facility] Last Admin: 06/29/19 21:01 Dose: 10 mg Documented by: Lorazepam (Ativan) 0.5 mg IV Q4H PRN PRN PRN Reason: anxiety with BIPAP Lorazepam (Ativan) 2 mg IV Q2H PRN PRN Reason: ANXIETY Last Admin: 06/30/19 03:44 Dose: 2 mg Documented by: Methylprednisolone (Solu-Medrol) 40 mg IV Q8 [facility] Last Admin: 06/30/19 05:07 Dose: 40 mg Documented by: Ondansetron HCl (Zofran) 4 mg IV Q8H PRN PRN PRN Reason: Nausea Pantoprazole Sodium (Protonix) 40 mg PO DAILY [facility] Last Admin: 06/29/19 10:38 Dose: 40 mg Documented by: Sodium Chloride () 10 - 40 ml IV UD PRN PRN Reason: SALINE FLUSH Last Admin: 06/29/19 22:54 Dose: 20 ml Documented by: Assessment/Plan RECOMMENDATIONS: 1. Continue empiric antibiotics, bronchodilators and steroids 2. Spontaneous breathing and awakening trials per protocol 3. May require deeper sedation for vent synchrony 4. Continue with permissive hypercapnic ventilation strategy 5. Await culture results 6. Initiate tube feeds IMPRESSIONS: 1. Acute on Chronic combined respiratory failure secondary to COPD Exacerbation Patient appears to have relatively advanced COPD by clinical inspection. Exact PFTs are unavailable at this time. Global wheezing is noted. Patient will be placed on bronchodilators, steroids and empiric antibiotics. Patient is having difficulty with air trapping requiring increased PEEP. Will wean PEEP as tolerated. Attempt to improve sedation. May require RASS of -2 to -3 to facilitate vent synchrony. 2. CAD s/p stent Previous ECHO showed preserved cardiac function. Patient did have sudden onset of chest pain. Reasonable to cycle troponins, but would not repeat echocardiogram and less other abnormalities are noted. 3. Acute kidney injury/hyperkalemia Unclear etiology at this time. Patient has been hemodynamically stable. Patient may have an element of ATN secondary to severe hypoxia. No malignant EKG changes are noted at this time. Patient has gotten Kayexalate. Acidosis is improved, which should improve hyperkalemia. 4. Tobacco Abuse/GERD/Poor history Complicates care, management, recovery and prognosis. May require nicotine patch. Patient is on a PPI. TIME: 45 minutes of critical care time was spent addressing respiratory failure, COPD, reviewing data and collaborating with care team (7 AM - 9 AM) Code Visit 9xxxx: [id number] Critical care first hour
--- NOTE | 2019-06-30 09:41 | PN_ITS ---
Subjective: Currently intubated and sedated, he developed respiratory acidosis last night and had to be intubated and transferred to the ICU Vitals/I&O's: Vital Signs Temp Pulse Resp BP Pulse Ox 100.5 F H 108 H 17 101/69 94 06/30/19 08:00 06/30/19 09:00 06/30/19 09:00 06/30/19 09:00 06/30/19 09:00 Oxygen Flow Rate (L/min) 3 Oxygen Delivery Method Mechanical Ventilator Weight: 144 lb 13.499 oz Body Mass Index (BMI) 22.0 Intake and Output for Last 24 Hours 06/28/19 06/29/19 06/30/19 23:59 23:59 23:59 Intake Total 2127.00 / 2128.92 1405.31 / 1405.31 Output Total 3125 / 3125 100 / 100 Balance -998.00 / -996.08 1305.31 / 1305.31 General: - - Intubated and sedated HEENT: Atraumatic, PERRLA, Normocephalic Oral: Dry Mucosa Neck: Supple, No JVD Lungs: No rhonchi, No rales, Diminished, Wheezes, - - Poor airflow Cardiovascular: Regular Rhythm, Normal S1, Normal S2, No murmurs, Tachycardic Abdomen: Soft, Non Tender, Non-Distended, No Hepato-splenomegaly Extremities: No edema, Capillary Refill Less than 3 Seconds Skin: No rashes, No breakdown Neurological: - - Intubated and sedated Psych/Mental Status: - - Intubated and sedated Laboratory Results 06/30/19 00:20: Specimen Type ART, Sample Site L Brachial, pH 7.19 L*, Bicarbonate Actual 30.4 H, POC Total CO2 33, Base Excess 2, O2 Saturation 96, O2 % 50, ABG pCO2 80.0 H*, ABG pO2 102 H, Maykel Test POS, Respiration Rate 14, O2 Delivery Device Vent, Minute Volume 9.00, Vent Mode A-C, Tidal Volume 400, POC PEEP 5, Blood Gas Notified Whom BRANDI RICE, Blood Gas Notified Time 15 06/30/19 01:03: Total Creatine Kinase 129, Triglycerides 87 06/30/19 04:10: WBC 25.9 H, RBC 4.79, Hgb 14.5, Hct 45.4, MCV 94.8 H, MCH 30.3, MCHC 31.9 L, RDW Std Deviation 48.3 H, RDW Coeff of [place] 13.8, Plt Count 297, MPV 9.8, Immature Gran % (Auto) 0.800, Neut % (Auto) 85.7 H, Lymph % (Auto) 2.4 L, Carlton % (Auto) 11.0 H, Eos % (Auto) 0.0, Baso % (Auto) 0.1, Absolute Neuts (auto) 22.2 H, Absolute Lymphs (auto) 0.62 L, Nucleated RBC % 0, Differential Comment SCANNED, Diff Path Review December06/30/19 04:10: Sodium 135 L, Potassium 7.5 H*, Chloride 103, Carbon Dioxide 30.0, Anion Gap 2 L, BUN 25 H, Creatinine 1.47 H, Estim Creat Clear Calc 51.52, Est GFR (MDRD) Af Amer 63, Est GFR (MDRD) Non-Af 52 L, BUN/Creatinine Ratio 17.0, Glucose 166 H, Calcium 8.6 06/30/19 06:03: Specimen Type ART, Sample Site L Radial, pH 7.29 L, Bicarbonate Actual 31.5 H, POC Total CO2 33, Base Excess 5 H, O2 Saturation 99, O2 % 60, ABG pCO2 65.0 H, ABG pO2 183 H, Maykel Test POS, Respiration Rate 16, O2 Delivery Device Vent, Minute Volume 10.00, Vent Mode VC+, Tidal Volume 450, POC PEEP 10, Blood Gas Notified Whom ICU MD, Blood Gas Notified Time 600 06/30/19 07:40: Sodium 137, Potassium 7.0 H*, Chloride 101, Carbon Dioxide 31.0, Anion Gap 5, BUN 29 H, Creatinine 1.86 H, Estim Creat Clear Calc 40.72, Est GFR (MDRD) Af Amer 48 L, Est GFR (MDRD) Non-Af 40 L, BUN/Creatinine Ratio 15.6, Glucose 157 H, Calcium 9.3 06/30/19 07:40: Troponin I 0.078 H Current Medications Acetaminophen (Tylenol) 650 mg PO Q6H PRN PRN PRN Reason: Pain Score 1-3 /Temp>100.7 Albuterol Sulfate (Ventolin Aerosols) 2.5 mg INHALATION Q2H PRN PRN PRN Reason: SHORTNESS OF BREATH Last Admin: 06/29/19 20:33 Dose: 2.5 mg Documented by: Albuterol/Ipratropium (Duoneb) 3 ml INHALATION Q4H.RT [facility] Last Admin: 06/30/19 03:30 Dose: 3 ml Documented by: Aspirin (Aspirin, Baby) 81 mg PO DAILY@0800 [facility] Last Admin: 06/29/19 10:38 Dose: 81 mg Documented by: Atorvastatin Calcium (Lipitor) 20 mg PO QHS [facility] Last Admin: 06/29/19 21:01 Dose: 20 mg Documented by: Chlorhexidine Gluconate () 15 ml PO BID [facility] Chlorhexidine Gluconate () 1 each TOPICAL DAILY [facility] Cholecalciferol (Vitamin D) 2,000 unit PO QHS [facility] Last Admin: 06/29/19 21:02 Dose: 2,000 unit Documented by: Clopidogrel Bisulfate (Plavix) 75 mg PO QHS [facility] Last Admin: 06/29/19 21:01 Dose: 75 mg Documented by: Cyanocobalamin (Vitamin B12) 1,000 mcg PO QHS [facility] Last Admin: 06/29/19 21:02 Dose: 1,000 mcg Documented by: Dextrose (D50w Syringe) 0 gm IV X1 PRN; Protocol PRN Reason: Hypoglycemia Enoxaparin Sodium (Lovenox) 40 mg SC DAILY@1000 [facility] Last Admin: 06/29/19 10:43 Dose: Not Given Documented by: Glucagon () 1 mg IM .X1 PRN PRN Reason: Hypoglycemia Hydralazine HCl (Apresoline Iv) 10 mg IV Q4H PRN PRN PRN Reason: SBP > 160 Levofloxacin (Levaquin Iv) 500 mg in 100 mls @ 100 mls/hr IV QHS [facility] Last Infusion: 06/29/19 22:37 Dose: Infused Documented by: Sodium Chloride () 1,000 mls @ 100 mls/hr IV .Q10H [facility] Last Infusion: 06/30/19 06:44 Dose: 100 mls/hr Documented by: Fentanyl () 100 mls @ 2.5 mls/hr IV UD [facility]; Protocol Last Titration: 06/30/19 09:00 Dose: 125 mcg/hr, 12.5 mls/hr Documented by: Propofol (Diprivan) 1,000 mg in 100 mls @ 3.96 mls/hr CONT INF .Q12H [facility]; Protocol Last Titration: 06/30/19 09:10 Dose: 15 mcg/kg/min, 5.9 mls/hr Documented by: Loratadine (Claritin) 10 mg PO QHS [facility] Last Admin: 06/29/19 21:01 Dose: 10 mg Documented by: Lorazepam (Ativan) 0.5 mg IV Q4H PRN PRN PRN Reason: anxiety with BIPAP Lorazepam (Ativan) 2 mg IV Q2H PRN PRN Reason: ANXIETY Last Admin: 06/30/19 03:44 Dose: 2 mg Documented by: Methylprednisolone (Solu-Medrol) 40 mg IV Q8 [facility] Last Admin: 06/30/19 05:07 Dose: 40 mg Documented by: Ondansetron HCl (Zofran) 4 mg IV Q8H PRN PRN PRN Reason: Nausea Pantoprazole Sodium (Protonix) 40 mg PO DAILY [facility] Last Admin: 06/29/19 10:38 Dose: 40 mg Documented by: Sodium Chloride () 10 - 40 ml IV UD PRN PRN Reason: SALINE FLUSH Last Admin: 06/29/19 22:54 Dose: 20 ml Documented by: STROKE Vital Signs/Narrative: Vital Signs Temp Pulse Resp BP Pulse Ox 06/30/19 09:00 108 H 17 101/69 94 06/30/19 08:00 100.5 F H 109 H 17 91/64 95 06/30/19 07:00 100.3 F H 111 H 17 80/61 L 92 06/30/19 06:45 110 H 19 H 92 06/30/19 06:00 100.1 F H 109 H 15 116/79 92 Medical Necessity - Tobacco Use Smoking Status: Current every day smoker Tobacco Use: Cigarettes Assessment/Plan All Active Problems (Last Reviewed 06/29/19 @ 04:24 by Godfrey Monte MD) Dizziness (Acute) Hypoxemia (Acute) Acute on chronic respiratory failure with hypoxemia (Acute) COPD (chronic obstructive pulmonary disease) (Acute) Pulmonary embolism (Resolved) 1. Acute combined respiratory failure secondary to COPD exacerbation with respiratory acidosis/possible left lingular pneumonia -On admission his ABG was normal -Currently on IV steroids and intubated -Continue with bronchodilators -We will continue with Levaquin -Appreciate pulmonology assistance 2. Hyperkalemia likely secondary to FELI -Potassium is when he was 7.5 he was given an albuterol inhaler as well as calcium gluconate -Decreased to 7, no EKG changes -Continue to monitor -On admission creatinine was 1.02, now is 1.86 -Continue with normal saline 3. CAD status post stents -He had an echo in May with a normal EF and normal diastolic function -Can continue with his aspirin and Plavix 4. Tobacco abuse -He quit smoking the day before presentation -Refused nicotine patch prior to being intubated -Continue to advised cessation 5. GERD -Stable -Continue with PPI DVT: Lovenox Code Visit Inpatient E&M: 96109 Subs Hosp L2
--- NOTE | 2019-06-30 10:51 | CASEMGMT ---
SW checked in with patient's family. They were in the lobby. SW offered support as they were upset. SW let them know if they would like to talk with the billing manager or SW they are always welcome to ask the nurse to contact one of us. They thanked SW for checking in with them. Belkys QUIÑONES MSW
[2019-06-30] MEDS: 0.9% Saline Lock 10 ML Syringe IV (10:57)
[2019-06-30] MEDS: CHLORHEXIDINE GLUC 2% CLOTH 1 EACH TOWELETTE TOPICAL (10:59)
[2019-06-30] MEDS: Chlorhexidine 15 ML PO ×2 (10:59→21:11)
[2019-06-30] MEDS: Enoxaparin 40 MG/0.4 ML Syringe SC (10:59)
[2019-06-30] MEDS: Vital AF 1.2 Cal Liquid 1,000 ML 70 ML GT (11:01)
[2019-06-30] MEDS: fentaNYL drip 100 ML 10 MCG IV ×2 (11:04→21:11)
[2019-06-30 11:07] LABS: Pathologist Review Reviewed
[2019-06-30] MEDS: 0.9% Normal Saline 1,000 ML 999 ML IV (12:00)
[2019-06-30 12:51] LABS: M R Staph aureus DNA By PCR Negative (Negative); Probe Check PASS; Specimen Processing Control PASS
[2019-06-30] MEDS: Propofol 10MG/Ml 1,000 MG/100 ML Bottle 7.9 MG CONT INF ×2 (14:38→21:12)
--- NOTE | 2019-06-30 16:52 | CHAPLAIN ---
Type of Pastoral Visit _x__ Initial Visit ___ Follow-up Visit ___ On-call Visit ___ General Patient Visit ___ Spiritual Assessment ___ Family Conference ___ Bereavement ___ Rapid Response ___ Code Blue ___ Other (describe below) Pastoral Care Referral From ___ Patient _x__ Family ___ Nurse ___ Physician ___ Pump Attendant ___ Optical Goods Drilling Machine Operator ___ Other (describe below) Sacrament/Intervention _x__ Active listening _x__ Anointing ___ Advent ___ Bereavement ___ Communion ___ Ritika exploration ___ ___ Life review _x__ Prayer ___ Reconciliation ___ Sacrament of Sick _x__ Supportive presence ___ Wedding ___ Other (describe below) Pastoral Comments family requests anointing of patient; this distribution operations manager and a family member anointed patient and offered prayer; stayed with family in room and also in waiting room to give support and allow time for conversation and expression of feelings; family requests this distribution operations manager to return tomorrow for support and prayer
[2019-06-30] MEDS: Cyanocobalamin 500 MCG Tablet 1000 MCG GT (21:10)
[2019-06-30] MEDS: Atorvastatin Calcium 20 MG Tablet GT (21:10)
[2019-06-30] MEDS: Loratadine 10 MG Tablet GT (21:10)
[2019-06-30] MEDS: Clopidogrel Bisulfate 75 MG Tablet GT (21:11)
[2019-06-30] MEDS: levoFLOXacin IV 500 MG/100 ML BAG 100 MG IV (21:20)
[2019-07-01] VITALS (37 sets, daily range): BP systolic 85–150; BP diastolic 63–95; PULSE 73–105; RESP 10–25; TEMP 36.3–37.2; O2SAT 89–100
[2019-07-01] MEDS: LORazepam 2 MG/ML Syringe IV ×4 (00:17→21:09)
[2019-07-01] MEDS: 0.9% Saline Lock 10 ML Syringe IV ×3 (00:17→21:10)
[2019-07-01] MEDS: Propofol 10MG/Ml 1,000 MG/100 ML Bottle 3.9 MG CONT INF (02:22)
[2019-07-01] MEDS: Ipratropium/Albuterol Sulfate 3 ML AMPUL.NEB INHALATION ×6 (02:31→23:30)
[2019-07-01 04:47] LABS: Absolute Lymphocyte Count 0.52 X10^3/uL (0.83-4.51); Absolute Neutrophil Count 11.9 X10^3/uL (2.0-7.7); Basophil# 0.02 X10^3/uL; Basophil% 0.1 % (0-1); Hematocrit 37.2 % (40-54); Hemoglobin 11.4 g/dL (13.0-16.5); Lymphocyte # 0.52 X10^3/ul (4.0); Lymphocyte % 3.8 % (19-41); Mean Corp Hgb Conc 30.6 g/dL (32-36); Mean Corpuscular Hgb 29.9 pg (27.0-32.0); Mean Corpuscular Volume 97.6 fL (80-94); Mean Platelet Vol. 9.6 fl (6.2-12.0); Monocyte# 1.13 X10^3/uL; Monocyte% 8.3 % (0-10); NRBC Flagged by Analyzer 0 % (0-5); Neutrophil # 11.85 X10^3/uL (2.7-7.7); Neutrophil % 86.8 % (47-70); POSITIVE DIFFERENTIAL YES; Platelet Count 210 K/mm3 (150-450); RBC Distribution Width SD 50.4 fl (35.1-43.9); Red Blood Count 3.81 M/mm3 (4.6-6.2); White Blood Count 13.7 K/mm3 (4.4-11.0)
[2019-07-01 04:58] LABS: Differential Indicated SCAN CRITERIA MET
[2019-07-01 05:05] LABS: Anion Gap 4 (5-15); BUN 32 mg/dL (7-18); Calcium,Total 8.2 mg/dL (8.5-10.1); Chloride 105 mmol/L (98-107); EST Glomerular Filtration Rate 89 mL/min (>60); Est Glom Filt Rate - Afr Amer 108 mL/min (>60); Estimated Creatinine Clearance 81.44 ml/min; Glucose 144 mg/dL (74-106); Sodium Level 139 mmol/L (136-145)
[2019-07-01] MEDS: TITRATION PARAMETER CHANGE 1 EACH IV (05:05)
[2019-07-01 05:06] LABS: Potassium 4.8 mmol/L (3.5-5.1)
[2019-07-01 05:07] LABS: BUN/Creat Ratio 34.4 RATIO (10-20); Creatinine, Serum 0.93 mg/dL (0.70-1.30)
[2019-07-01 05:48] LABS: Differential Comment SCANNED
[2019-07-01 05:51] LABS: Allen Test POS; Base Excess 3 mmol/L (-2 to +2); Bicarbonate 28.5 mmol/L (22-26); Blood Gas Specimen Type ART; FI02 35; Mode CPAP PS; O2 Delivery Device Vent; PEEP 5; PO2 86 mmHG (75-100); PS 5; SITE L Radial; SO2 96 % (95-99); Time Given 535; Total Carbon Dioxide 30 mmol/L; pCO2 47.5 mmHg (35-45); pH 7.39 (7.35-7.45)
[2019-07-01] MEDS: Chlorhexidine 15 ML PO ×2 (08:21→21:01)
[2019-07-01] MEDS: Aspirin 81 MG TAB.CHEW GT (08:21)
[2019-07-01] MEDS: 0.9% Normal Saline 1,000 ML 100 ML IV ×2 (08:26→18:43)
--- NOTE | 2019-07-01 09:37 | CASEMGMT ---
LW[facility]POA [facility], daughter Clarice Andrade is listed as medical POA. YESENIA Sánchez
--- NOTE | 2019-07-01 09:38 | CASEMGMT ---
SW/CM participated in ICU rounds this morning, pt's mother, daughter, son, brother and granddaughter present. . Daughter Clarice stated that if a half-way is needed they have a place in mind where pt's brother is currently. DIXON/NELSON spoke w/daughter after rounds, she states the facility if needed is [facility]. DIXON/NELSON will continue to follow for discharge needs. YESENIA Sánchez
--- NOTE | 2019-07-01 09:45 | PN_ITS ---
Subjective: Patient did okay overnight. No acute issues were reported. Patient did have a spontaneous breathing trial this morning and was able to tolerate an hour, but then started to have respiratory difficulties. Patient was noted to have significant wheezing on exam, desaturation and tachycardia, so was placed back on sedation. Patient has tolerated tube feeds without difficulty. Patient is much more appropriate with sedation today compared to yesterday. General: - - Intubated and sedated. RASS -1 HEENT: Atraumatic, PERRLA, EOMI, Normocephalic, - Oral: Moist Mucosa, No Gingival or Mucosal Lesions/ Ulcerations Neck: Supple, No JVD, No Nodes, Trachea Midline Lungs: No rhonchi, No rales, Wheezes - Globally Cardiovascular: Regular rate, Regular Rhythm, Normal S1, Normal S2, No murmurs, No rub noted, No Gallop Abdomen: Bowel Sounds Present, Soft, Non Tender, Non-Distended Extremities: No clubbing, No cyanosis, No edema Skin: No rashes, No breakdown Musculoskeletal: No Tenderness to Palpation of Joints or Extremities Lymphatic: No Cervical, Supraclavicular, or Inguinal Adenopathy Neurological: Cranial nerves II-XII grossly intact, Neuro grossly intact Psych/Mental Status: Flat Affect Vital Signs Temp Pulse Resp BP Pulse Ox 36.7 C 83 16 96/70 99 07/01/19 08:00 07/01/19 08:00 07/01/19 08:00 07/01/19 08:00 07/01/19 08:00 Oxygen Flow Rate (L/min) 3 Oxygen Delivery Method Mechanical Ventilator Weight: 65.7 kg Body Mass Index (BMI) 22.0 Intake and Output for Last 24 Hours 06/29/19 06/30/19 07/01/19 23:59 23:59 23:59 Intake Total 2127.00 / 2128.92 5281.63 / 5299.53 1929.79 / 1929.79 Output Total 3125 / 3125 965 / 965 400 / 400 Balance -998.00 / -996.08 4316.63 / 4334.53 1529.79 / 1529.79 Labs (Last 48 Hours) 06/30/19 06/30/19 06/30/19 00:20 01:03 04:10 WBC 25.9 H Corrected WBC RBC 4.79 Hgb 14.5 Hct 45.4 MCV 94.8 H MCH 30.3 MCHC 31.9 L RDW Std Deviation 48.3 H RDW Coeff of [place] 13.8 Plt Count 297 MPV 9.8 Immature Gran % (Auto) 0.800 Neut % (Auto) 85.7 H Lymph % (Auto) 2.4 L Nelson % (Auto) 11.0 H Eos % (Auto) 0.0 Baso % (Auto) 0.1 Immature Gran # (Auto) Neut # (Auto) Absolute Neuts (auto) 22.2 H Absolute Lymphs (auto) 0.62 L Absolute Monos (auto) Total Counted Neutrophils % (Manual) Band Neutrophils % Lymphocytes % (Manual) Monocytes % (Manual) Eosinophils % (Manual) Basophils % (Manual) Metamyelocytes % Myelocytes % Promyelocytes % Blast Cells % Plasma Cell % (Manual) Other Cells % Nucleated RBC % 0 Lymphocytes # Basophils # Nucleated RBCs/100 WBC Differential Comment SCANNED Diff Path Review Reviewed Hypersegmented Neuts Atypical Lymphocytes Reactive Lymphocytes Smudge Cells Eosinophilia # Toxic Granulation Toxic Vacuolation Dohle Bodies [place] Platelet Estimate Plt Morphology Comment RBC Morphology Polychromasia Hypochromasia Poikilocytosis Basophilic Stippling Anisocytosis Microcytosis Macrocytosis Spherocytes Sickle Cells Target Cells Tear Drop Cells Ovalocytes Stomatocytes [place] Bodies [place] Cells Bite Cells Crenated Cell Acanthocytes (Spur) Rouleaux Schistocytes Specimen Type ART Sample Site L Brachial pH 7.19 L* Bicarbonate Actual 30.4 H POC Total CO2 33 Base Excess 2 O2 Saturation 96 O2 % 50 ABG pCO2 80.0 H* ABG pO2 102 H Maykel Test POS Respiration Rate 14 O2 Delivery Device Vent Minute Volume 9.00 Vent Mode A-C Tidal Volume 400 POC PEEP 5 POC Pressure Suppt Blood Gas Notified Whom HOSP MD Blood Gas Notified Time 15 Sodium Potassium Chloride Carbon Dioxide Anion Gap BUN Creatinine Estim Creat Clear Calc Est GFR (MDRD) Af Amer Est GFR (MDRD) Non-Af BUN/Creatinine Ratio Glucose Calcium Total Creatine Kinase 129 Troponin I Triglycerides 87 MRSA (PCR) 06/30/19 06/30/19 06/30/19 04:10 06:03 07:40 WBC Corrected WBC RBC Hgb Hct MCV MCH MCHC RDW Std Deviation RDW Coeff of [place] Plt Count MPV Immature Gran % (Auto) Neut % (Auto) Lymph % (Auto) Nelson % (Auto) Eos % (Auto) Baso % (Auto) Immature Gran # (Auto) Neut # (Auto) Absolute Neuts (auto) Absolute Lymphs (auto) Absolute Monos (auto) Total Counted Neutrophils % (Manual) Band Neutrophils % Lymphocytes % (Manual) Monocytes % (Manual) Eosinophils % (Manual) Basophils % (Manual) Metamyelocytes % Myelocytes % Promyelocytes % Blast Cells % Plasma Cell % (Manual) Other Cells % Nucleated RBC % Lymphocytes # Basophils # Nucleated RBCs/100 WBC Differential Comment Diff Path Review Hypersegmented Neuts Atypical Lymphocytes Reactive Lymphocytes Smudge Cells Eosinophilia # Toxic Granulation Toxic Vacuolation Dohle Bodies [place] Platelet Estimate Plt Morphology Comment RBC Morphology Polychromasia Hypochromasia Poikilocytosis Basophilic Stippling Anisocytosis Microcytosis Macrocytosis Spherocytes Sickle Cells Target Cells Tear Drop Cells Ovalocytes Stomatocytes [place] Bodies [place] Cells Bite Cells Crenated Cell Acanthocytes (Spur) Rouleaux Schistocytes Specimen Type ART Sample Site L Radial pH 7.29 L Bicarbonate Actual 31.5 H POC Total CO2 33 Base Excess 5 H O2 Saturation 99 O2 % 60 ABG pCO2 65.0 H ABG pO2 183 H Maykel Test POS Respiration Rate 16 O2 Delivery Device Vent Minute Volume 10.00 Vent Mode VC+ Tidal Volume 450 POC PEEP 10 POC Pressure Suppt Blood Gas Notified Whom ICU MD Blood Gas Notified Time 600 Sodium 135 L 137 Potassium 7.5 H* 7.0 H* Chloride 103 101 Carbon Dioxide 30.0 31.0 Anion Gap 2 L 5 BUN 25 H 29 H Creatinine 1.47 H 1.86 H Estim Creat Clear Calc 51.52 40.72 Est GFR (MDRD) Af Amer 63 48 L Est GFR (MDRD) Non-Af 52 L 40 L BUN/Creatinine Ratio 17.0 15.6 Glucose 166 H 157 H Calcium 8.6 9.3 Total Creatine Kinase Troponin I Triglycerides MRSA (PCR) 06/30/19 06/30/19 06/30/19 07:40 10:55 10:55 WBC Corrected WBC RBC Hgb Hct MCV MCH MCHC RDW Std Deviation RDW Coeff of [place] Plt Count MPV Immature Gran % (Auto) Neut % (Auto) Lymph % (Auto) Nelson % (Auto) Eos % (Auto) Baso % (Auto) Immature Gran # (Auto) Neut # (Auto) Absolute Neuts (auto) Absolute Lymphs (auto) Absolute Monos (auto) Total Counted Neutrophils % (Manual) Band Neutrophils % Lymphocytes % (Manual) Monocytes % (Manual) Eosinophils % (Manual) Basophils % (Manual) Metamyelocytes % Myelocytes % Promyelocytes % Blast Cells % Plasma Cell % (Manual) Other Cells % Nucleated RBC % Lymphocytes # Basophils # Nucleated RBCs/100 WBC Differential Comment Diff Path Review Hypersegmented Neuts Atypical Lymphocytes Reactive Lymphocytes Smudge Cells Eosinophilia # Toxic Granulation Toxic Vacuolation Dohle Bodies [place] Platelet Estimate Plt Morphology Comment RBC Morphology Polychromasia Hypochromasia Poikilocytosis Basophilic Stippling Anisocytosis Microcytosis Macrocytosis Spherocytes Sickle Cells Target Cells Tear Drop Cells Ovalocytes Stomatocytes [place] Bodies [place] Cells Bite Cells Crenated Cell Acanthocytes (Spur) Rouleaux Schistocytes Specimen Type Sample Site pH Bicarbonate Actual POC Total CO2 Base Excess O2 Saturation O2 % ABG pCO2 ABG pO2 Maykel Test Respiration Rate O2 Delivery Device Minute Volume Vent Mode Tidal Volume POC PEEP POC Pressure Suppt Blood Gas Notified Whom Blood Gas Notified Time Sodium Potassium Chloride Carbon Dioxide Anion Gap BUN Creatinine Estim Creat Clear Calc Est GFR (MDRD) Af Amer Est GFR (MDRD) Non-Af BUN/Creatinine Ratio Glucose Calcium Total Creatine Kinase Troponin I 0.078 H 0.059 H Triglycerides MRSA (PCR) Negative 06/30/19 07/01/19 07/01/19 14:25 04:00 04:00 WBC Cancelled Corrected WBC Cancelled RBC Cancelled Hgb Cancelled Hct Cancelled MCV Cancelled MCH Cancelled MCHC Cancelled RDW Std Deviation Cancelled RDW Coeff of [place] Cancelled Plt Count Cancelled MPV Cancelled Immature Gran % (Auto) Cancelled Neut % (Auto) Cancelled Lymph % (Auto) Cancelled Nelson % (Auto) Cancelled Eos % (Auto) Cancelled Baso % (Auto) Cancelled Immature Gran # (Auto) Cancelled Neut # (Auto) Cancelled Absolute Neuts (auto) Cancelled Absolute Lymphs (auto) Cancelled Absolute Monos (auto) Cancelled Total Counted Cancelled Neutrophils % (Manual) Cancelled Band Neutrophils % Cancelled Lymphocytes % (Manual) Cancelled Monocytes % (Manual) Cancelled Eosinophils % (Manual) Cancelled Basophils % (Manual) Cancelled Metamyelocytes % Cancelled Myelocytes % Cancelled Promyelocytes % Cancelled Blast Cells % Cancelled Plasma Cell % (Manual) Cancelled Other Cells % Cancelled Nucleated RBC % Cancelled Lymphocytes # Cancelled Basophils # Cancelled Nucleated RBCs/100 WBC Cancelled Differential Comment Cancelled Diff Path Review Cancelled Hypersegmented Neuts Cancelled Atypical Lymphocytes Cancelled Reactive Lymphocytes Cancelled Smudge Cells Cancelled Eosinophilia # Cancelled Toxic Granulation Cancelled Toxic Vacuolation Cancelled Dohle Bodies Cancelled [place] Cancelled Platelet Estimate Cancelled Plt Morphology Comment Cancelled RBC Morphology Cancelled Polychromasia Cancelled Hypochromasia Cancelled Poikilocytosis Cancelled Basophilic Stippling Cancelled Anisocytosis Cancelled Microcytosis Cancelled Macrocytosis Cancelled Spherocytes Cancelled Sickle Cells Cancelled Target Cells Cancelled Tear Drop Cells Cancelled Ovalocytes Cancelled Stomatocytes Cancelled [place] Bodies Cancelled [place] Cells Cancelled Bite Cells Cancelled Crenated Cell Cancelled Acanthocytes (Spur) Cancelled Rouleaux Cancelled Schistocytes Cancelled Specimen Type Sample Site pH Bicarbonate Actual POC Total CO2 Base Excess O2 Saturation O2 % ABG pCO2 ABG pO2 Maykel Test Respiration Rate O2 Delivery Device Minute Volume Vent Mode Tidal Volume POC PEEP POC Pressure Suppt Blood Gas Notified Whom Blood Gas Notified Time Sodium Cancelled Potassium Cancelled Chloride Cancelled Carbon Dioxide Cancelled Anion Gap Cancelled BUN Cancelled Creatinine Cancelled Estim Creat Clear Calc Cancelled Est GFR (MDRD) Af Amer Cancelled Est GFR (MDRD) Non-Af Cancelled BUN/Creatinine Ratio Cancelled Glucose Cancelled Calcium Cancelled Total Creatine Kinase Troponin I 0.039 Triglycerides MRSA (PCR) 07/01/19 07/01/19 07/01/19 04:35 04:35 05:44 WBC 13.7 H Corrected WBC RBC 3.81 L Hgb 11.4 L Hct 37.2 L MCV 97.6 H MCH 29.9 MCHC 30.6 L RDW Std Deviation 50.4 H RDW Coeff of [place] 14.0 Plt Count 210 MPV 9.6 Immature Gran % (Auto) 1.000 H Neut % (Auto) 86.8 H Lymph % (Auto) 3.8 L Nelson % (Auto) 8.3 Eos % (Auto) 0.0 Baso % (Auto) 0.1 Immature Gran # (Auto) Neut # (Auto) Absolute Neuts (auto) 11.9 H Absolute Lymphs (auto) 0.52 L Absolute Monos (auto) Total Counted Neutrophils % (Manual) Band Neutrophils % Lymphocytes % (Manual) Monocytes % (Manual) Eosinophils % (Manual) Basophils % (Manual) Metamyelocytes % Myelocytes % Promyelocytes % Blast Cells % Plasma Cell % (Manual) Other Cells % Nucleated RBC % 0 Lymphocytes # Basophils # Nucleated RBCs/100 WBC Differential Comment SCANNED Diff Path Review Hypersegmented Neuts Atypical Lymphocytes Reactive Lymphocytes Smudge Cells Eosinophilia # Toxic Granulation Toxic Vacuolation Dohle Bodies [place] Platelet Estimate Plt Morphology Comment RBC Morphology Polychromasia Hypochromasia Poikilocytosis Basophilic Stippling Anisocytosis Microcytosis Macrocytosis Spherocytes Sickle Cells Target Cells Tear Drop Cells Ovalocytes Stomatocytes [place] Bodies [place] Cells Bite Cells Crenated Cell Acanthocytes (Spur) Rouleaux Schistocytes Specimen Type ART Sample Site L Radial pH 7.39 Bicarbonate Actual 28.5 H POC Total CO2 30 Base Excess 3 H O2 Saturation 96 O2 % 35 ABG pCO2 47.5 H ABG pO2 86 Maykel Test POS Respiration Rate O2 Delivery Device Vent Minute Volume Vent Mode CPAP PS Tidal Volume POC PEEP 5 POC Pressure Suppt 5 Blood Gas Notified Whom ICU MD Blood Gas Notified Time 535 Sodium 139 Potassium 4.8 Chloride 105 Carbon Dioxide 30.0 Anion Gap 4 L BUN 32 H Creatinine 0.93 Estim Creat Clear Calc 81.44 Est GFR (MDRD) Af Amer 108 Est GFR (MDRD) Non-Af 89 BUN/Creatinine Ratio 34.4 H Glucose 144 H Calcium 8.2 L Total Creatine Kinase Troponin I Triglycerides MRSA (PCR) Microbiology 06/30/19 00:15 Sputum, Induced/Lukens Gram Stain - Final Medical Necessity - Tobacco Use Smoking Status: Current every day smoker Tobacco Use: Cigarettes Assessment/Plan All Active Problems (Last Reviewed 06/29/19 @ 04:24 by Godfrey Monte MD) Dizziness (Acute) Hypoxemia (Acute) Acute on chronic respiratory failure with hypoxemia (Acute) COPD (chronic obstructive pulmonary disease) (Acute) Pulmonary embolism (Resolved) RECOMMENDATIONS: 1. Continue empiric antibiotics, bronchodilators and steroids 2. Spontaneous breathing and awakening trials per protocol 3. Fentanyl and propofol to control pain and sedate to RASS -1 4. Await culture results 5. Continue tube feeds IMPRESSIONS: 1. Acute on Chronic combined respiratory failure secondary to COPD Exacerbation Patient appears to have relatively advanced COPD by clinical inspection. Previous PFTs are unavailable at this time. Global wheezing is noted. Patient will be placed on bronchodilators, steroids and empiric antibiotics. Patient with difficulty after an hour indicating probable derecruitment on spontaneous breathing trial. We will continue with the steroids at current dosing. Continue with bronchodilators. Gram stain of sputum showing no organisms. 2. CAD s/p stent Previous ECHO showed preserved cardiac function. Patient did have sudden onset of chest pain. Low-level increase in troponins likely secondary to global hypoxemia. Low clinical suspicion for recurrent cardiac events. Would not recommend echocardiogram at this time. 3. Acute kidney injury/hyperkalemia Resolved. Patient has been hemodynamically stable. Clinical suspicion is patient may have had an element of ATN secondary to severe hypoxia. No anna gnant EKG changes are noted at this time. Patient has gotten Kayexalate. Potassium now in acceptable range 4. Tobacco Abuse/GERD/Poor history Complicates care, management, recovery and prognosis. May require nicotine patch. Patient is on a PPI. TIME: 34 minutes of critical care time was spent addressing respiratory failure, COPD, reviewing data and collaborating with care team (6 AM to 8 AM) Code Visit 9xxxx: [id number] Critical care first hour
[2019-07-01] MEDS: Enoxaparin 40 MG/0.4 ML Syringe SC (10:28)
[2019-07-01] MEDS: Polyethylene Glycol 3350 17 GM PACKET GT (10:35)
[2019-07-01] MEDS: Senna/Docusate Sodium 1 Tablet GT ×2 (10:35→21:02)
--- NOTE | 2019-07-01 10:43 | PCM.PN.HOSP ---
Subjective: Intubated and sedated but opens his eyes to verbal cues Vitals/I&O's: Vital Signs Temp Pulse Resp BP Pulse Ox 98.1 F 87 23 H 96/70 100 07/01/19 08:00 07/01/19 09:26 07/01/19 09:26 07/01/19 08:00 07/01/19 09:26 Oxygen Flow Rate (L/min) 3 Oxygen Delivery Method Mechanical Ventilator Weight: 144 lb 13.499 oz Body Mass Index (BMI) 22.0 Intake and Output for Last 24 Hours 06/29/19 06/30/19 07/01/19 23:59 23:59 23:59 Intake Total 2127.00 / 2128.92 5281.63 / 5299.53 2143.99 / 2143.99 Output Total 3125 / 3125 965 / 965 400 / 400 Balance -998.00 / -996.08 4316.63 / 4334.53 1743.99 / 1743.99 General: - - Intubated and sedated, opens eyes to verbal cues HEENT: Atraumatic, PERRLA, Normocephalic Oral: Dry Mucosa Neck: Supple, No JVD Lungs: No rhonchi, No rales, Diminished, slight Wheezes, - - Poor airflow Cardiovascular: Regular Rhythm, Normal S1, Normal S2, No murmurs, Tachycardic Abdomen: Soft, Non Tender, Non-Distended, No Hepato-splenomegaly Extremities: No edema, Capillary Refill Less than 3 Seconds Skin: No rashes, No breakdown Neurological: - - Intubated and sedated Psych/Mental Status: - - Intubated and sedated Microbiology Past 72 Hours 06/30/19 00:15 Sputum, Induced/Lukens Gram Stain - Final Laboratory Results 06/30/19 04:10: Diff Path Review Reviewed 06/30/19 10:55: Troponin I 0.059 H 06/30/19 10:55: MRSA (PCR) Negative 06/30/19 14:25: Troponin I 0.039 07/01/19 04:00: WBC Cancelled, Corrected WBC Cancelled, RBC Cancelled, Hgb Cancelled, Hct Cancelled, MCV Cancelled, MCH Cancelled, MCHC Cancelled, RDW Std Deviation Cancelled, RDW Coeff of [place] Cancelled, Plt Count Cancelled, MPV Cancelled, Immature Gran % (Auto) Cancelled, Neut % (Auto) Cancelled, Lymph % (Auto) Cancelled, Ford % (Auto) Cancelled, Eos % (Auto) Cancelled, Baso % (Auto) Cancelled, Immature Gran # (Auto) Cancelled, Neut # (Auto) Cancelled, Absolute Neuts (auto) Cancelled, Absolute Lymphs (auto) Cancelled, Absolute Monos (auto) Cancelled, Total Counted Cancelled, Neutrophils % (Manual) Cancelled, Band Neutrophils % Cancelled, Lymphocytes % (Manual) Cancelled, Monocytes % (Manual) Cancelled, Eosinophils % (Manual) Cancelled, Basophils % (Manual) Cancelled, Metamyelocytes % Cancelled, Myelocytes % Cancelled, Promyelocytes % Cancelled, Blast Cells % Cancelled, Plasma Cell % (Manual) Cancelled, Other Cells % Cancelled, Nucleated RBC % Cancelled, Lymphocytes # Cancelled, Basophils # Cancelled, Nucleated RBCs/100 WBC Cancelled, Differential Comment Cancelled, Diff Path Review Cancelled, Hypersegmented Neuts Cancelled, Atypical Lymphocytes Cancelled, Reactive Lymphocytes Cancelled, Smudge Cells Cancelled, Eosinophilia # Cancelled, Toxic Granulation Cancelled, Toxic Vacuolation Cancelled, Dohle Bodies Cancelled, Roc[place] Rods Cancelled, Platelet Estimate Cancelled, Plt Morphology Comment Cancelled, RBC Morphology Cancelled, Polychromasia Cancelled, Hypochromasia Cancelled, Poikilocytosis Cancelled, Basophilic Stippling Cancelled, Anisocytosis Cancelled, Microcytosis Cancelled, Macrocytosis Cancelled, Spherocytes Cancelled, Sickle Cells Cancelled, Target Cells Cancelled, Tear Drop Cells Cancelled, Ovalocytes Cancelled, Stomatocytes Cancelled, [place] Bodies Cancelled, [place] Cells Cancelled, Bite Cells Cancelled, Crenated Cell Cancelled, Acanthocytes (Spur) Cancelled, Rouleaux Cancelled, Schistocytes Cancelled 07/01/19 04:00: Sodium Cancelled, Potassium Cancelled, Chloride Cancelled, Carbon Dioxide Cancelled, Anion Gap Cancelled, BUN Cancelled, Creatinine Cancelled, Estim Creat Clear Calc Cancelled, Est GFR (MDRD) Af Amer Cancelled, Est GFR (MDRD) Non-Af Cancelled, BUN/Creatinine Ratio Cancelled, Glucose Cancelled, Calcium Cancelled 07/01/19 04:35: WBC 13.7 H, RBC 3.81 L, Hgb 11.4 L, Hct 37.2 L, MCV 97.6 H, MCH 29.9, MCHC 30.6 L, RDW Std Deviation 50.4 H, RDW Coeff of [place] 14.0, Plt Count 210, MPV 9.6, Immature Gran % (Auto) 1.000 H, Neut % (Auto) 86.8 H, Lymph % (Auto) 3.8 L, Ford % (Auto) 8.3, Eos % (Auto) 0.0, Baso % (Auto) 0.1, Absolute Neuts (auto) 11.9 H, Absolute Lymphs (auto) 0.52 L, Nucleated RBC % 0, Differential Comment SCANNED 07/01/19 04:35: Sodium 139, Potassium 4.8, Chloride 105, Carbon Dioxide 30.0, Anion Gap 4 L, BUN 32 H, Creatinine 0.93, Estim Creat Clear Calc 81.44, Est GFR (MDRD) Af Amer 108, Est GFR (MDRD) Non-Af 89, BUN/Creatinine Ratio 34.4 H, Glucose 144 H, Calcium 8.2 L 07/01/19 05:44: Specimen Type ART, Sample Site L Radial, pH 7.39, Bicarbonate Actual 28.5 H, POC Total CO2 30, Base Excess 3 H, O2 Saturation 96, O2 % 35, ABG pCO2 47.5 H, ABG pO2 86, Maykel Test POS, O2 Delivery Device Vent, Vent Mode CPAP PS, POC PEEP 5, POC Pressure Suppt 5, Blood Gas Notified Whom ICU MD, Blood Gas Notified Time 535 Current Medications Acetaminophen (Tylenol Liquid) 650 mg GT Q6H PRN PRN PRN Reason: Pain Score 1-3 /Temp>100.7 Albuterol Sulfate (Ventolin Aerosols) 2.5 mg INHALATION Q2H PRN PRN PRN Reason: SHORTNESS OF BREATH Last Admin: 06/29/19 20:33 Dose: 2.5 mg Documented by: Albuterol/Ipratropium (Duoneb) 3 ml INHALATION Q4H.RT LAYLA Last Admin: 07/01/19 06:40 Dose: 3 ml Documented by: Aspirin (Aspirin, Baby) 81 mg GT DAILY@0800 [facility] Last Admin: 07/01/19 08:21 Dose: 81 mg Documented by: Atorvastatin Calcium (Lipitor) 20 mg GT QHS [facility] Last Admin: 06/30/19 21:10 Dose: 20 mg Documented by: Calamine/Phenol (Calmoseptine Ointment) 1 applic TOPICAL 4X/DAY PRN; Protocol PRN Reason: irritated skin Chlorhexidine Gluconate () 15 ml PO BID [facility] Last Admin: 07/01/19 08:21 Dose: 15 ml Documented by: Chlorhexidine Gluconate () 1 each TOPICAL DAILY [facility] Last Admin: 06/30/19 10:59 Dose: 1 each Documented by: Cholecalciferol (Vitamin D) 2,000 unit GT QHS [facility] Last Admin: 06/30/19 21:10 Dose: 2,000 unit Documented by: Clopidogrel Bisulfate (Plavix) 75 mg GT QHS [facility] Last Admin: 06/30/19 21:11 Dose: 75 mg Documented by: Cyanocobalamin (Vitamin B12) 1,000 mcg GT QHS [facility] Last Admin: 06/30/19 21:10 Dose: 1,000 mcg Documented by: Dextrose (D50w Syringe) 0 gm IV X1 PRN; Protocol PRN Reason: Hypoglycemia Enoxaparin Sodium (Lovenox) 40 mg SC DAILY@1000 [facility] Last Admin: 07/01/19 10:28 Dose: 40 mg Documented by: Glucagon () 1 mg IM .X1 PRN PRN Reason: Hypoglycemia Hydralazine HCl (Apresoline Iv) 10 mg IV Q4H PRN PRN PRN Reason: SBP > 160 Levofloxacin (Levaquin Iv) 500 mg in 100 mls @ 100 mls/hr IV QHS [facility] Last Infusion: 06/30/19 22:20 Dose: Infused Documented by: Sodium Chloride () 1,000 mls @ 100 mls/hr IV .Q10H [facility] Last Infusion: 07/01/19 10:26 Dose: 0 mls/hr Documented by: Fentanyl () 100 mls @ 2.5 mls/hr IV UD [facility]; Protocol Last Titration: 07/01/19 10:00 Dose: 50 mcg/hr, 5 mls/hr Documented by: Propofol (Diprivan) 1,000 mg in 100 mls @ 4.14 mls/hr CONT INF .Q12H [facility]; Protocol Last Titration: 07/01/19 10:00 Dose: 5 mcg/kg/min, 2.1 mls/hr Documented by: Pantoprazole Sodium 40 mg/ (Sodium Chloride) 110 mls @ 330 mls/hr IV Q24 [facility] Last Admin: 07/01/19 10:26 Dose: 330 mls/hr Documented by: Enteral Nutritional Formula (Vital Af 1.2 Jay Liquid) 1,000 mls @ 70 mls/hr GT .[id number] [facility] Last Admin: 07/01/19 00:54 Dose: Not Given Documented by: Loratadine (Claritin) 10 mg GT QHS [facility] Last Admin: 06/30/19 21:10 Dose: 10 mg Documented by: Lorazepam (Ativan) 0.5 mg IV Q4H PRN PRN PRN Reason: anxiety with BIPAP Lorazepam (Ativan) 2 mg IV Q2H PRN PRN Reason: ANXIETY Last Admin: 07/01/19 03:59 Dose: 2 mg Documented by: Methylprednisolone (Solu-Medrol) 40 mg IV Q8 [facility] Last Admin: 07/01/19 06:02 Dose: 40 mg Documented by: Ondansetron HCl (Zofran) 4 mg IV Q8H PRN PRN PRN Reason: Nausea Senna/Docusate Sodium (Senokot-S, Aspen-Colace) 1 tablet GT BID [facility] Last Admin: 07/01/19 10:35 Dose: 1 tablet Documented by: Sodium Chloride () 10 - 40 ml IV UD PRN PRN Reason: SALINE FLUSH Last Admin: 07/01/19 03:59 Dose: 30 ml Documented by: STROKE Vital Signs/Narrative: Vital Signs Temp Pulse Resp BP Pulse Ox 07/01/19 09:26 87 23 H 100 07/01/19 08:00 98.1 F 83 16 96/70 99 07/01/19 07:00 98.9 F 88 16 105/81 H 92 Medical Necessity - Tobacco Use Smoking Status: Current every day smoker Tobacco Use: Cigarettes Assessment/Plan All Active Problems (Last Reviewed 06/29/19 @ 04:24 by Godfrey Monte MD) Dizziness (Acute) Hypoxemia (Acute) Acute on chronic respiratory failure with hypoxemia (Acute) COPD (chronic obstructive pulmonary disease) (Acute) Pulmonary embolism (Resolved) 1. Acute combined respiratory failure secondary to COPD exacerbation with respiratory acidosis/possible left lingular pneumonia -On admission his ABG was normal -Currently on IV steroids and intubated -Continue with bronchodilators -We will continue with Shala -Appreciate pulmonology assistance 2. Hyperkalemia likely secondary to FELI -Potassium was 7.5 he was given an albuterol inhaler as well as calcium gluconate, no EKG changes -Decreased to 4.8 today -Continue to monitor -On admission creatinine was 1.02 and peaked at 1.86 -Continue with normal saline 3. CAD status post stents -He had an echo in May with a normal EF and normal diastolic function -Can continue with his aspirin and Plavix 4. Tobacco abuse -He quit smoking the day before presentation -Refused nicotine patch prior to being intubated -Continue to advised cessation 5. GERD -Stable -Continue with PPI DVT: Lovenox Code Visit Inpatient E&M: 73771 Subs Hosp L2
--- NOTE | 2019-07-01 11:12 | CASEMGMT ---
MARION DAMON NOTE: Reviewed [facility] with pt's daughter/POA, Clarice. Clarice declines for pt to be transferred to [facility] and Declination to transfer form signed by Clarice. Copy made and placed on chart and original given to Clarice. Declination to transfer form faxed to [facility] along w/H/P and progress notes. Faxed confirmation received that fax went through successfully. H/P and Progress notes also faxed to [facility] at this time. Marcus CHAN MARION CM
[2019-07-01] MEDS: CHLORHEXIDINE GLUC 2% CLOTH 1 EACH TOWELETTE TOPICAL (12:54)
[2019-07-01] MEDS: Propofol 10MG/Ml 1,000 MG/100 ML Bottle 2.1 MG CONT INF (14:19)
[2019-07-01] MEDS: Vital AF 1.2 Cal Liquid 1,000 ML 70 ML GT (14:35)
--- NOTE | 2019-07-01 16:39 | CHAPLAIN ---
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
[2019-07-01] MEDS: fentaNYL drip 100 ML 5 MCG IV (16:45)
[2019-07-01] MEDS: Loratadine 10 MG Tablet GT (21:01)
[2019-07-01] MEDS: Atorvastatin Calcium 20 MG Tablet GT (21:02)
[2019-07-01] MEDS: Clopidogrel Bisulfate 75 MG Tablet GT (21:02)
[2019-07-01] MEDS: Cyanocobalamin 500 MCG Tablet 1000 MCG GT (21:03)
[2019-07-01] MEDS: levoFLOXacin IV 500 MG/100 ML BAG 100 MG IV (21:15)
[2019-07-02] VITALS (32 sets, daily range): BP systolic 99–143; BP diastolic 68–92; PULSE 74–101; RESP 13–22; TEMP 36.4–36.9; O2SAT 91–100
[2019-07-02] MEDS: Propofol 10MG/Ml 1,000 MG/100 ML Bottle 8.3 MG CONT INF (02:15)
[2019-07-02] MEDS: Ipratropium/Albuterol Sulfate 3 ML AMPUL.NEB INHALATION ×5 (03:00→23:40)
[2019-07-02 04:31] LABS: Absolute Lymphocyte Count 0.57 X10^3/uL (0.83-4.51); Absolute Neutrophil Count 8.6 X10^3/uL (2.0-7.7); Basophil# 0.01 X10^3/uL; Basophil% 0.1 % (0-1); Hematocrit 37.1 % (40-54); Hemoglobin 11.7 g/dL (13.0-16.5); Lymphocyte # 0.57 X10^3/ul (4.0); Lymphocyte % 5.6 % (19-41); Mean Corp Hgb Conc 31.5 g/dL (32-36); Mean Corpuscular Hgb 30.3 pg (27.0-32.0); Mean Corpuscular Volume 96.1 fL (80-94); Monocyte# 0.98 X10^3/uL; Monocyte% 9.5 % (0-10); NRBC Flagged by Analyzer 0 % (0-5); Neutrophil % 83.7 % (47-70); POSITIVE DIFFERENTIAL YES; Platelet Count 224 K/mm3 (150-450); RBC Distribution Width CV 13.6 % (11.6-14.6); RBC Distribution Width SD 48.5 fl (35.1-43.9); Red Blood Count 3.86 M/mm3 (4.6-6.2); White Blood Count 10.3 K/mm3 (4.4-11.0)
[2019-07-02 04:36] LABS: Differential Indicated SCAN CRITERIA MET
[2019-07-02 04:45] LABS: Anion Gap 4 (5-15); BUN 21 mg/dL (7-18); BUN/Creat Ratio 33.9 RATIO (10-20); Calcium,Total 8.1 mg/dL (8.5-10.1); Chloride 107 mmol/L (98-107); Creatinine, Serum 0.62 mg/dL (0.70-1.30); EST Glomerular Filtration Rate 142 mL/min (>60); Est Glom Filt Rate - Afr Amer 172 mL/min (>60); Estimated Creatinine Clearance 122.16 ml/min; Glucose 136 mg/dL (74-106); Potassium 4.2 mmol/L (3.5-5.1); Sodium Level 140 mmol/L (136-145)
[2019-07-02 05:00] LABS: Differential Comment SCANNED
[2019-07-02] MEDS: 0.9% Normal Saline 1,000 ML 100 ML IV (05:22)
--- NOTE | 2019-07-02 06:40 | CPS ---
ABG RESULTS GIVEN TO DR. URIBE. PHYSICIAN NOTIFIED OF RESULTS BEING VENOUS NOT ARTERIAL. VERBAL ORDER RECEIVED TO EXTUBATE PATIENT.
[2019-07-02 06:46] LABS: Allen Test POS; Base Excess 5 mmol/L (-2 to +2); Bicarbonate 28.7 mmol/L (22-26); FI02 30; Mode CPAP PS; O2 Delivery Device Vent; PEEP 5; PO2 35 mmHG (75-100); PS 5; SITE R Radial; SO2 70 % (95-99); Time Given 640; Total Carbon Dioxide 30 mmol/L; pCO2 41.4 mmHg (35-45); pH 7.45 (7.35-7.45)
--- NOTE | 2019-07-02 07:06 | CPS ---
PT EXTUBATED TO 4L NASAL CANNULA. PEP AND INCENTIVE SPIROMETER STARTED WITH PATIENT PER PHYSICIAN ORDER.
--- NOTE | 2019-07-02 07:13 | PCM.PN.INT ---
Subjective: Patient did well overnight. No acute issues were reported. Patient was able to tolerate 35% FiO2 on the ventilator. Patient once again had a spontaneous breathing trial this morning, but at the end was saturating 95 to 96%. ABG appeared to be mixed venous, but showed adequate ventilation. Patient was successfully extubated under my direct supervision. Patient is reporting thick secretions that he is able to cough up and some hoarseness, but otherwise feels improved. Pain is controlled. General: Alert, Cooperative, - - Mild conversational dyspnea. Appears older than stated age. HEENT: Atraumatic, PERRLA, EOMI, Normocephalic, - - Slight scleral injection without icterus Oral: Moist Mucosa, No Gingival or Mucosal Lesions/ Ulcerations Neck: Supple, No JVD, No Nodes, Trachea Midline Lungs: No rales, Diminished, Rhonchi - Improved with cough, Wheezes Cardiovascular: Regular rate, Regular Rhythm, Normal S1, Normal S2, No murmurs, No rub noted, No Gallop Abdomen: Bowel Sounds Present, Soft, Non Tender, Non-Distended Extremities: No clubbing, No cyanosis, No edema, Capillary Refill Less than 3 Seconds Skin: No rashes, No breakdown Lymphatic: No Cervical, Supraclavicular, or Inguinal Adenopathy Neurological: Cranial nerves II-XII grossly intact, Neuro grossly intact, Motor Exam 5/5 strength throughout Psych/Mental Status: Normal Affect, Appropriate Vital Signs Temp Pulse Resp BP Pulse Ox 36.6 C 98 18 143/77 H 93 07/02/19 06:00 07/02/19 06:50 07/02/19 06:50 07/02/19 06:00 07/02/19 07:00 Oxygen Flow Rate (L/min) 4 Oxygen Delivery Method Nasal Cannula Weight: 65.7 kg Body Mass Index (BMI) 22.0 Intake and Output for Last 24 Hours 06/30/19 07/01/19 07/02/19 23:59 23:59 23:59 Intake Total 5281.63 / 5299.53 4794.97 / 5371.97 1911.25 / 191.25 Output Total 965 / 965 1500 / 2050 1375 / 1375 Balance 4316.63 / 4334.53 3294.97 / 3321.97 536.25 / 536.25 Labs (Last 48 Hours) 06/30/19 06/30/19 06/30/19 04:10 07:40 07:40 WBC Corrected WBC RBC Hgb Hct MCV MCH MCHC RDW Std Deviation RDW Coeff of [place] Plt Count MPV Immature Gran % (Auto) Neut % (Auto) Lymph % (Auto) [place] % (Auto) Eos % (Auto) Baso % (Auto) Immature Gran # (Auto) Neut # (Auto) Absolute Neuts (auto) Absolute Lymphs (auto) Absolute Monos (auto) Total Counted Neutrophils % (Manual) Band Neutrophils % Lymphocytes % (Manual) Monocytes % (Manual) Eosinophils % (Manual) Basophils % (Manual) Metamyelocytes % Myelocytes % Promyelocytes % Blast Cells % Plasma Cell % (Manual) Other Cells % Nucleated RBC % Lymphocytes # Basophils # Nucleated RBCs/100 WBC Differential Comment Diff Path Review Reviewed Hypersegmented Neuts Atypical Lymphocytes Reactive Lymphocytes Smudge Cells Eosinophilia # Toxic Granulation Toxic Vacuolation Dohle Bodies [place] Platelet Estimate Plt Morphology Comment RBC Morphology Polychromasia Hypochromasia Poikilocytosis Basophilic Stippling Anisocytosis Microcytosis Macrocytosis Spherocytes Sickle Cells Target Cells Tear Drop Cells Ovalocytes Stomatocytes [place] Bodies [place] Cells Bite Cells Crenated Cell Acanthocytes (Spur) Rouleaux Schistocytes Specimen Type Sample Site pH Bicarbonate Actual POC Total CO2 Base Excess O2 Saturation O2 % ABG pCO2 ABG pO2 Maykel Test O2 Delivery Device Vent Mode POC PEEP POC Pressure Suppt Blood Gas Notified Whom Blood Gas Notified Time Sodium 137 Potassium 7.0 H* Chloride 101 Carbon Dioxide 31.0 Anion Gap 5 BUN 29 H Creatinine 1.86 H Estim Creat Clear Calc 40.72 Est GFR (MDRD) Af Amer 48 L Est GFR (MDRD) Non-Af 40 L BUN/Creatinine Ratio 15.6 Glucose 157 H Calcium 9.3 Troponin I 0.078 H MRSA (PCR) 06/30/19 06/30/19 06/30/19 10:55 10:55 14:25 WBC Corrected WBC RBC Hgb Hct MCV MCH MCHC RDW Std Deviation RDW Coeff of [place] Plt Count MPV Immature Gran % (Auto) Neut % (Auto) Lymph % (Auto) [place] % (Auto) Eos % (Auto) Baso % (Auto) Immature Gran # (Auto) Neut # (Auto) Absolute Neuts (auto) Absolute Lymphs (auto) Absolute Monos (auto) Total Counted Neutrophils % (Manual) Band Neutrophils % Lymphocytes % (Manual) Monocytes % (Manual) Eosinophils % (Manual) Basophils % (Manual) Metamyelocytes % Myelocytes % Promyelocytes % Blast Cells % Plasma Cell % (Manual) Other Cells % Nucleated RBC % Lymphocytes # Basophils # Nucleated RBCs/100 WBC Differential Comment Diff Path Review Hypersegmented Neuts Atypical Lymphocytes Reactive Lymphocytes Smudge Cells Eosinophilia # Toxic Granulation Toxic Vacuolation Dohle Bodies [place] Platelet Estimate Plt Morphology Comment RBC Morphology Polychromasia Hypochromasia Poikilocytosis Basophilic Stippling Anisocytosis Microcytosis Macrocytosis Spherocytes Sickle Cells Target Cells Tear Drop Cells Ovalocytes Stomatocytes [place] Bodies [place] Cells Bite Cells Crenated Cell Acanthocytes (Spur) Rouleaux Schistocytes Specimen Type Sample Site pH Bicarbonate Actual POC Total CO2 Base Excess O2 Saturation O2 % ABG pCO2 ABG pO2 Maykel Test O2 Delivery Device Vent Mode POC PEEP POC Pressure Suppt Blood Gas Notified Whom Blood Gas Notified Time Sodium Potassium Chloride Carbon Dioxide Anion Gap BUN Creatinine Estim Creat Clear Calc Est GFR (MDRD) Af Amer Est GFR (MDRD) Non-Af BUN/Creatinine Ratio Glucose Calcium Troponin I 0.059 H 0.039 MRSA (PCR) Negative 07/01/19 07/01/19 07/01/19 04:00 04:00 04:35 WBC Cancelled 13.7 H Corrected WBC Cancelled RBC Cancelled 3.81 L Hgb Cancelled 11.4 L Hct Cancelled 37.2 L MCV Cancelled 97.6 H MCH Cancelled 29.9 MCHC Cancelled 30.6 L RDW Std Deviation Cancelled 50.4 H RDW Coeff of [place] Cancelled 14.0 Plt Count Cancelled 210 MPV Cancelled 9.6 Immature Gran % (Auto) Cancelled 1.000 H Neut % (Auto) Cancelled 86.8 H Lymph % (Auto) Cancelled 3.8 L [place] % (Auto) Cancelled 8.3 Eos % (Auto) Cancelled 0.0 Baso % (Auto) Cancelled 0.1 Immature Gran # (Auto) Cancelled Neut # (Auto) Cancelled Absolute Neuts (auto) Cancelled 11.9 H Absolute Lymphs (auto) Cancelled 0.52 L Absolute Monos (auto) Cancelled Total Counted Cancelled Neutrophils % (Manual) Cancelled Band Neutrophils % Cancelled Lymphocytes % (Manual) Cancelled Monocytes % (Manual) Cancelled Eosinophils % (Manual) Cancelled Basophils % (Manual) Cancelled Metamyelocytes % Cancelled Myelocytes % Cancelled Promyelocytes % Cancelled Blast Cells % Cancelled Plasma Cell % (Manual) Cancelled Other Cells % Cancelled Nucleated RBC % Cancelled 0 Lymphocytes # Cancelled Basophils # Cancelled Nucleated RBCs/100 WBC Cancelled Differential Comment Cancelled SCANNED Diff Path Review Cancelled Hypersegmented Neuts Cancelled Atypical Lymphocytes Cancelled Reactive Lymphocytes Cancelled Smudge Cells Cancelled Eosinophilia # Cancelled Toxic Granulation Cancelled Toxic Vacuolation Cancelled Dohle Bodies Cancelled [place] Cancelled Platelet Estimate Cancelled Plt Morphology Comment Cancelled RBC Morphology Cancelled Polychromasia Cancelled Hypochromasia Cancelled Poikilocytosis Cancelled Basophilic Stippling Cancelled Anisocytosis Cancelled Microcytosis Cancelled Macrocytosis Cancelled Spherocytes Cancelled Sickle Cells Cancelled Target Cells Cancelled Tear Drop Cells Cancelled Ovalocytes Cancelled Stomatocytes Cancelled [place] Bodies Cancelled [place] Cells Cancelled Bite Cells Cancelled Crenated Cell Cancelled Acanthocytes (Spur) Cancelled Rouleaux Cancelled Schistocytes Cancelled Specimen Type Sample Site pH Bicarbonate Actual POC Total CO2 Base Excess O2 Saturation O2 % ABG pCO2 ABG pO2 Maykel Test O2 Delivery Device Vent Mode POC PEEP POC Pressure Suppt Blood Gas Notified Whom Blood Gas Notified Time Sodium Cancelled Potassium Cancelled Chloride Cancelled Carbon Dioxide Cancelled Anion Gap Cancelled BUN Cancelled Creatinine Cancelled Estim Creat Clear Calc Cancelled Est GFR (MDRD) Af Amer Cancelled Est GFR (MDRD) Non-Af Cancelled BUN/Creatinine Ratio Cancelled Glucose Cancelled Calcium Cancelled Troponin I MRSA (PCR) 07/01/19 07/01/19 07/02/19 04:35 05:44 04:20 WBC 10.3 Corrected WBC RBC 3.86 L Hgb 11.7 L Hct 37.1 L MCV 96.1 H MCH 30.3 MCHC 31.5 L RDW Std Deviation 48.5 H RDW Coeff of [place] 13.6 Plt Count 224 MPV 10.0 Immature Gran % (Auto) 1.100 H Neut % (Auto) 83.7 H Lymph % (Auto) 5.6 L [place] % (Auto) 9.5 Eos % (Auto) 0.0 Baso % (Auto) 0.1 Immature Gran # (Auto) Neut # (Auto) Absolute Neuts (auto) 8.6 H Absolute Lymphs (auto) 0.57 L Absolute Monos (auto) Total Counted Neutrophils % (Manual) Band Neutrophils % Lymphocytes % (Manual) Monocytes % (Manual) Eosinophils % (Manual) Basophils % (Manual) Metamyelocytes % Myelocytes % Promyelocytes % Blast Cells % Plasma Cell % (Manual) Other Cells % Nucleated RBC % 0 Lymphocytes # Basophils # Nucleated RBCs/100 WBC Differential Comment SCANNED Diff Path Review Hypersegmented Neuts Atypical Lymphocytes Reactive Lymphocytes Smudge Cells Eosinophilia # Toxic Granulation Toxic Vacuolation Dohle Bodies [place] Platelet Estimate Plt Morphology Comment RBC Morphology Polychromasia Hypochromasia Poikilocytosis Basophilic Stippling Anisocytosis Microcytosis Macrocytosis Spherocytes Sickle Cells Target Cells Tear Drop Cells Ovalocytes Stomatocytes [place] Bodies [place] Cells Bite Cells Crenated Cell Acanthocytes (Spur) Rouleaux Schistocytes Specimen Type ART Sample Site L Radial pH 7.39 Bicarbonate Actual 28.5 H POC Total CO2 30 Base Excess 3 H O2 Saturation 96 O2 % 35 ABG pCO2 47.5 H ABG pO2 86 Maykel Test POS O2 Delivery Device Vent Vent Mode CPAP PS POC PEEP 5 POC Pressure Suppt 5 Blood Gas Notified Whom ICU MD Blood Gas Notified Time 535 Sodium 139 Potassium 4.8 Chloride 105 Carbon Dioxide 30.0 Anion Gap 4 L BUN 32 H Creatinine 0.93 Estim Creat Clear Calc 81.44 Est GFR (MDRD) Af Amer 108 Est GFR (MDRD) Non-Af 89 BUN/Creatinine Ratio 34.4 H Glucose 144 H Calcium 8.2 L Troponin I MRSA (PCR) 07/02/19 07/02/19 04:20 06:40 WBC Corrected WBC RBC Hgb Hct MCV MCH MCHC RDW Std Deviation RDW Coeff of [place] Plt Count MPV Immature Gran % (Auto) Neut % (Auto) Lymph % (Auto) [place] % (Auto) Eos % (Auto) Baso % (Auto) Immature Gran # (Auto) Neut # (Auto) Absolute Neuts (auto) Absolute Lymphs (auto) Absolute Monos (auto) Total Counted Neutrophils % (Manual) Band Neutrophils % Lymphocytes % (Manual) Monocytes % (Manual) Eosinophils % (Manual) Basophils % (Manual) Metamyelocytes % Myelocytes % Promyelocytes % Blast Cells % Plasma Cell % (Manual) Other Cells % Nucleated RBC % Lymphocytes # Basophils # Nucleated RBCs/100 WBC Differential Comment Diff Path Review Hypersegmented Neuts Atypical Lymphocytes Reactive Lymphocytes Smudge Cells Eosinophilia # Toxic Granulation Toxic Vacuolation Dohle Bodies [place] Platelet Estimate Plt Morphology Comment RBC Morphology Polychromasia Hypochromasia Poikilocytosis Basophilic Stippling Anisocytosis Microcytosis Macrocytosis Spherocytes Sickle Cells Target Cells Tear Drop Cells Ovalocytes Stomatocytes [place] Bodies [place] Cells Bite Cells Crenated Cell Acanthocytes (Spur) Rouleaux Schistocytes Specimen Type ART Sample Site R Radial pH 7.45 Bicarbonate Actual 28.7 H POC Total CO2 30 Base Excess 5 H O2 Saturation 70 L O2 % 30 ABG pCO2 41.4 ABG pO2 35 L* Maykel Test POS O2 Delivery Device Vent Vent Mode CPAP PS POC PEEP 5 POC Pressure Suppt 5 Blood Gas Notified Whom ICU MD Blood Gas Notified Time 640 Sodium 140 Potassium 4.2 Chloride 107 Carbon Dioxide 29.0 Anion Gap 4 L BUN 21 H Creatinine 0.62 L Estim Creat Clear Calc 122.16 Est GFR (MDRD) Af Amer 172 Est GFR (MDRD) Non-Af 142 BUN/Creatinine Ratio 33.9 H Glucose 136 H Calcium 8.1 L Troponin I MRSA (PCR) Microbiology 06/30/19 06:07 Urine Catheter - Albright Urine Culture - Preliminary Culture exhibits no growth. 06/30/19 00:15 Sputum, Induced/Lukens Gram Stain - Final 06/30/19 00:15 Sputum, Induced/Lukens Respiratory Culture - Preliminary Appears to be normal respiratory chente. Further studies to follow. Medical Necessity - Tobacco Use Smoking Status: Current every day smoker Tobacco Use: Cigarettes Assessment/Plan All Active Problems (Last Reviewed 06/29/19 @ 04:24 by Godfrey Monte MD) Dizziness (Acute) Hypoxemia (Acute) Acute on chronic respiratory failure with hypoxemia (Acute) COPD (chronic obstructive pulmonary disease) (Acute) Pulmonary embolism (Resolved) RECOMMENDATIONS: 1. Continue empiric antibiotics to complete a 10-day course, keep bronchodilators and steroids at current dosing 2. Aggressive pulmonary toileting with Acapella and incentive spirometer 3. Discontinue fentanyl and propofol 4. Await culture results 5. Bedside swallow evaluation 6. Transition to p.o. medications if passes bedside swallow IMPRESSIONS: 1. Acute on Chronic combined respiratory failure secondary to COPD Exacerbation Patient appears to have relatively advanced COPD by clinical inspection. Previous PFTs are unavailable at this time. Global wheezing is still noted, but patient appears to be tolerating this well. Patient will be continued on bronchodilators, steroids and empiric antibiotics. Patient still has some wheezing noted on exam, but appears to be tolerating it well with ABG. Patient was extubated without complication, but will require aggressive pulmonary toileting.. We will continue with the steroids at current dosing. Continue with bronchodilators. Gram stain of sputum showing no organisms. 2. CAD s/p stent Previous ECHO showed preserved cardiac function. Patient did have sudden onset of chest pain. Low-level increase in troponins likely secondary to global hypoxemia. Low clinical suspicion for recurrent cardiac events. Would not recommend echocardiogram at this time. 3. Acute kidney injury/hyperkalemia Resolved. Patient has been hemodynamically stable. Clinical suspicion is patient may have had an element of ATN secondary to severe hypoxia. No malignant EKG changes are noted at this time. Patient has gotten Kayexalate during hospitalization. Potassium now in acceptable range 4. Tobacco Abuse/GERD/Poor history Complicates care, management, recovery and prognosis. May require nicotine patch. Patient is on a PPI. TIME: 38 minutes of critical care time was spent addressing respiratory failure, COPD, reviewing data and collaborating with care team (6 AM to 8 AM) Code Visit [id number]: [id number] Critical care first hour
[2019-07-02 08:46] LABS: Blood Gas Specimen Type VEN
--- NOTE | 2019-07-02 09:22 | CASEMGMT ---
RN NELSON Note: Participated in interdisciplinary rounds. Pt is extubated, on 4L NC, sitting in chair. Sleepy, but able to participate in rounding. RN NELSON spoke with pt after rounds. Discussed possible need for Home Oxygen. Pt has availability to order through [facility] with [facility], or local provider with [facility]. List reviewed with pt and he chose [facility] if home oxygen is needed. Discussed possible home health. Do not anticipate pt will be home bound. Brother is in room and states he or pt's daughter can provide transportation if outp PT is recommended, or for f/u with physicians. DC PLAN: awaiting PT/OT notes for today. Anticipate Home, Home oxygen testing recommended prior to dc if remains on O2. Seng CHAN RN ACM
[2019-07-02] MEDS: 0.9% Saline Lock 10 ML Syringe IV ×3 (10:52→21:00)
[2019-07-02] MEDS: levoFLOXacin 750 MG Tablet PO (10:53)
[2019-07-02] MEDS: Aspirin 81 MG TAB.CHEW PO (10:53)
[2019-07-02] MEDS: CHLORHEXIDINE GLUC 2% CLOTH 1 EACH TOWELETTE TOPICAL (10:53)
--- NOTE | 2019-07-02 11:12 | PCM.PN.HOSP ---
Subjective: Extubated this morning and doing well on 4 L nasal cannula. No issues overnight Vitals/I&O's: Vital Signs Temp Pulse Resp BP Pulse Ox 97.9 F 91 15 117/84 H 98 07/02/19 06:00 07/02/19 08:00 07/02/19 08:00 07/02/19 08:00 07/02/19 08:00 Oxygen Flow Rate (L/min) 4 Oxygen Delivery Method Nasal Cannula Weight: 154 lb 12.232 oz Body Mass Index (BMI) 22.0 Intake and Output for Last 24 Hours 06/30/19 07/01/19 07/02/19 23:59 23:59 23:59 Intake Total 5281.63 / 5299.53 4794.97 / 5371.97 2167.92 / 2167.92 Output Total 965 / 965 1500 / 2050 1375 / 1375 Balance 4316.63 / 4334.53 3294.97 / 3321.97 792.92 / 792.92 General: Alert, oriented x3, cooperative, no apparent distress HEENT: Atraumatic, PERRLA, Normocephalic Oral: Dry Mucosa Neck: Supple, No JVD Lungs: No rhonchi, No rales, Diminished, slight Wheezes, - - Poor airflow Cardiovascular: Regular rate, regular Rhythm, Normal S1, Normal S2, No murmurs Abdomen: Soft, Non Tender, Non-Distended, No Hepato-splenomegaly Extremities: No edema, Capillary Refill Less than 3 Seconds Skin: No rashes, No breakdown Neurological: Neuro grossly intact, sensory exam intact to light touch and pain Psych/Mental Status: Normal affect, appropriate Microbiology Past 72 Hours 06/30/19 06:07 Blood Culture (Wb) - Right Hand Blood Culture - Preliminary No growth in 48 hours. 06/30/19 06:00 Blood Culture (Wb) - Anticubital Left Blood Culture - Preliminary No growth in 48 hours. 06/30/19 06:07 Urine Catheter - Albright Urine Culture - Final Culture exhibits no growth. 06/30/19 00:15 Sputum, Induced/Lukens Gram Stain - Final 06/30/19 00:15 Sputum, Induced/Lukens Respiratory Culture - Final Laboratory Results 07/02/19 04:20: WBC 10.3, RBC 3.86 L, Hgb 11.7 L, Hct 37.1 L, MCV 96.1 H, MCH 30.3, MCHC 31.5 L, RDW Std Deviation 48.5 H, RDW Coeff of [place] 13.6, Plt Count 224, MPV 10.0, Immature Gran % (Auto) 1.100 H, Neut % (Auto) 83.7 H, Lymph % (Auto) 5.6 L, [place] % (Auto) 9.5, Eos % (Auto) 0.0, Baso % (Auto) 0.1, Absolute Neuts (auto) 8.6 H, Absolute Lymphs (auto) 0.57 L, Nucleated RBC % 0, Differential Comment SCANNED 07/02/19 04:20: Sodium 140, Potassium 4.2, Chloride 107, Carbon Dioxide 29.0, Anion Gap 4 L, BUN 21 H, Creatinine 0.62 L, Estim Creat Clear Calc 122.16, Est GFR (MDRD) Af Amer 172, Est GFR (MDRD) Non-Af 142, BUN/Creatinine Ratio 33.9 H, Glucose 136 H, Calcium 8.1 L 07/02/19 06:40: Specimen Type MICHAEL, Sample Site R Radial, pH 7.45, Bicarbonate Actual 28.7 H, POC Total CO2 30, Base Excess 5 H, O2 Saturation 70 L, O2 % 30, ABG pCO2 41.4, ABG pO2 35 L*, Maykel Test POS, O2 Delivery Device Vent, Vent Mode CPAP PS, POC PEEP 5, POC Pressure Suppt 5, Blood Gas Notified Whom ICU MD, Blood Gas Notified Time 640 Current Medications Acetaminophen (Tylenol) 650 mg PO Q6H PRN PRN PRN Reason: Pain Score 1-3 /Temp>100.7 Albuterol Sulfate (Ventolin Aerosols) 2.5 mg INHALATION Q2H PRN PRN PRN Reason: SHORTNESS OF BREATH Last Admin: 06/29/19 20:33 Dose: 2.5 mg Documented by: Albuterol/Ipratropium (Duoneb) 3 ml INHALATION Q4H.RT [facility] Last Admin: 07/02/19 03:00 Dose: 3 ml Documented by: Aspirin (Aspirin, Baby) 81 mg PO DAILY@0800 [facility] Last Admin: 07/02/19 10:53 Dose: 81 mg Documented by: Atorvastatin Calcium (Lipitor) 20 mg PO QHS [facility] Calamine/Phenol (Calmoseptine Ointment) 1 applic TOPICAL 4X/DAY PRN; Protocol PRN Reason: irritated skin Chlorhexidine Gluconate () 1 each TOPICAL DAILY [facility] Last Admin: 07/02/19 10:53 Dose: 1 each Documented by: Cholecalciferol (Vitamin D) 2,000 unit GT QHS [facility] Last Admin: 07/01/19 21:02 Dose: 2,000 unit Documented by: Clopidogrel Bisulfate (Plavix) 75 mg PO QHS [facility] Cyanocobalamin (Vitamin B12) 1,000 mcg PO QHS [facility] Dextrose (D50w Syringe) 0 gm IV X1 PRN; Protocol PRN Reason: Hypoglycemia Enoxaparin Sodium (Lovenox) 40 mg SC DAILY@1000 [facility] Last Admin: 07/02/19 10:50 Dose: Not Given Documented by: Glucagon () 1 mg IM .X1 PRN PRN Reason: Hypoglycemia Pantoprazole Sodium 40 mg/ (Sodium Chloride) 110 mls @ 330 mls/hr IV Q24 [facility] Last Admin: 07/02/19 10:50 Dose: 330 mls/hr Documented by: Levofloxacin (Levaquin Tablet) 750 mg PO DAILY@0600 [facility] Stop: 07/07/19 06:01 Last Admin: 07/02/19 10:53 Dose: 750 mg Documented by: Loratadine (Claritin) 10 mg PO QHS [facility] Methylprednisolone (Solu-Medrol) 40 mg IV Q8 [facility] Last Admin: 07/02/19 05:23 Dose: 40 mg Documented by: Ondansetron HCl (Zofran) 4 mg IV Q8H PRN PRN PRN Reason: Nausea Senna/Docusate Sodium (Senokot-S, Aspen-Colace) 1 tablet PO BID [facility] Last Admin: 07/02/19 10:50 Dose: Not Given Documented by: Sodium Chloride () 10 - 40 ml IV UD PRN PRN Reason: SALINE FLUSH Last Admin: 07/02/19 10:52 Dose: 10 ml Documented by: STROKE Vital Signs/Narrative: Vital Signs Pulse Resp BP Pulse Ox 07/02/19 08:00 91 15 117/84 H 98 Medical Necessity - Tobacco Use Smoking Status: Current every day smoker Tobacco Use: Cigarettes Assessment/Plan All Active Problems (Last Reviewed 06/29/19 @ 04:24 by Godfrey Monte MD) Dizziness (Acute) Hypoxemia (Acute) Acute on chronic respiratory failure with hypoxemia (Acute) COPD (chronic obstructive pulmonary disease) (Acute) Pulmonary embolism (Resolved) 1. Acute combined respiratory failure secondary to COPD exacerbation with respiratory acidosis/possible left lingular pneumonia -Currently on IV steroids, extubated and breathing well on 4 L nasal cannula -Continue with bronchodilators -We will continue with Levaquin -Appreciate pulmonology assistance -Cytosis resolved, and cultures are all negative 2. Hyperkalemia likely secondary to FELI -Potassium was 7.5 he was given an albuterol inhaler as well as calcium gluconate, no EKG changes -Decreased to 4.2 today -Continue to monitor -On admission creatinine was 1.02 and peaked at 1.86 -Discontinue normal saline 3. CAD status post stents -He had an echo in May with a normal EF and normal diastolic function -Can continue with his aspirin and Plavix 4. Tobacco abuse -He quit smoking the day before presentation -Refused nicotine patch prior to being intubated -Continue to advised cessation 5. GERD -Stable -Continue with PPI DVT: Lovenox Code Visit Inpatient E&M: 46070 Subs Hosp L2
--- NOTE | 2019-07-02 11:13 | PCM.PROGNOTE ---
- Physical Exam Vitals/I&O's: Vital Signs Temp Pulse Resp BP Pulse Ox 97.9 F 91 15 117/84 H 98 07/02/19 06:00 07/02/19 08:00 07/02/19 08:00 07/02/19 08:00 07/02/19 08:00 Oxygen Flow Rate (L/min) 4 Oxygen Delivery Method Nasal Cannula Weight: 154 lb 12.232 oz Body Mass Index (BMI) 22.0 Intake and Output for Last 24 Hours 06/30/19 07/01/19 07/02/19 23:59 23:59 23:59 Intake Total 5281.63 / 5299.53 4794.97 / 5371.97 2167.92 / 2167.92 Output Total 965 / 965 1500 / 2050 1375 / 1375 Balance 4316.63 / 4334.53 3294.97 / 3321.97 792.92 / 792.92 Microbiology Past 72 Hours 06/30/19 06:07 Blood Culture (Wb) - Right Hand Blood Culture - Preliminary No growth in 48 hours. 06/30/19 06:00 Blood Culture (Wb) - Anticubital Left Blood Culture - Preliminary No growth in 48 hours. 06/30/19 06:07 Urine Catheter - Albright Urine Culture - Final Culture exhibits no growth. 06/30/19 00:15 Sputum, Induced/Lukens Gram Stain - Final 06/30/19 00:15 Sputum, Induced/Lukens Respiratory Culture - Final Laboratory Results 07/02/19 04:20: WBC 10.3, RBC 3.86 L, Hgb 11.7 L, Hct 37.1 L, MCV 96.1 H, MCH 30.3, MCHC 31.5 L, RDW Std Deviation 48.5 H, RDW Coeff of [place] 13.6, Plt Count 224, MPV 10.0, Immature Gran % (Auto) 1.100 H, Neut % (Auto) 83.7 H, Lymph % (Auto) 5.6 L, [place] % (Auto) 9.5, Eos % (Auto) 0.0, Baso % (Auto) 0.1, Absolute Neuts (auto) 8.6 H, Absolute Lymphs (auto) 0.57 L, Nucleated RBC % 0, Differential Comment SCANNED 07/02/19 04:20: Sodium 140, Potassium 4.2, Chloride 107, Carbon Dioxide 29.0, Anion Gap 4 L, BUN 21 H, Creatinine 0.62 L, Estim Creat Clear Calc 122.16, Est GFR (MDRD) Af Amer 172, Est GFR (MDRD) Non-Af 142, BUN/Creatinine Ratio 33.9 H, Glucose 136 H, Calcium 8.1 L 07/02/19 06:40: Specimen Type MICHAEL, Sample Site R Radial, pH 7.45, Bicarbonate Actual 28.7 H, POC Total CO2 30, Base Excess 5 H, O2 Saturation 70 L, O2 % 30, ABG pCO2 41.4, ABG pO2 35 L*, Maykel Test POS, O2 Delivery Device Vent, Vent Mode CPAP PS, POC PEEP 5, POC Pressure Suppt 5, Blood Gas Notified Whom ICU MD, Blood Gas Notified Time 640 Current Medications Acetaminophen (Tylenol) 650 mg PO Q6H PRN PRN PRN Reason: Pain Score 1-3 /Temp>100.7 Albuterol Sulfate (Ventolin Aerosols) 2.5 mg INHALATION Q2H PRN PRN PRN Reason: SHORTNESS OF BREATH Last Admin: 06/29/19 20:33 Dose: 2.5 mg Documented by: Albuterol/Ipratropium (Duoneb) 3 ml INHALATION Q4H.RT [facility] Last Admin: 07/02/19 03:00 Dose: 3 ml Documented by: Aspirin (Aspirin, Baby) 81 mg PO DAILY@0800 [facility] Last Admin: 07/02/19 10:53 Dose: 81 mg Documented by: Atorvastatin Calcium (Lipitor) 20 mg PO QHS [facility] Calamine/Phenol (Calmoseptine Ointment) 1 applic TOPICAL 4X/DAY PRN; Protocol PRN Reason: irritated skin Chlorhexidine Gluconate () 1 each TOPICAL DAILY [facility] Last Admin: 07/02/19 10:53 Dose: 1 each Documented by: Cholecalciferol (Vitamin D) 2,000 unit GT QHS [facility] Last Admin: 07/01/19 21:02 Dose: 2,000 unit Documented by: Clopidogrel Bisulfate (Plavix) 75 mg PO QHS [facility] Cyanocobalamin (Vitamin B12) 1,000 mcg PO QHS [facility] Dextrose (D50w Syringe) 0 gm IV X1 PRN; Protocol PRN Reason: Hypoglycemia Enoxaparin Sodium (Lovenox) 40 mg SC DAILY@1000 [facility] Last Admin: 07/02/19 10:50 Dose: Not Given Documented by: Glucagon () 1 mg IM .X1 PRN PRN Reason: Hypoglycemia Pantoprazole Sodium 40 mg/ (Sodium Chloride) 110 mls @ 330 mls/hr IV Q24 [facility] Last Admin: 07/02/19 10:50 Dose: 330 mls/hr Documented by: Levofloxacin (Levaquin Tablet) 750 mg PO DAILY@0600 [facility] Stop: 07/07/19 06:01 Last Admin: 07/02/19 10:53 Dose: 750 mg Documented by: Loratadine (Claritin) 10 mg PO QHS [facility] Methylprednisolone (Solu-Medrol) 40 mg IV Q8 [facility] Last Admin: 07/02/19 05:23 Dose: 40 mg Documented by: Ondansetron HCl (Zofran) 4 mg IV Q8H PRN PRN PRN Reason: Nausea Senna/Docusate Sodium (Senokot-S, Aspen-Colace) 1 tablet PO BID [facility] Last Admin: 07/02/19 10:50 Dose: Not Given Documented by: Sodium Chloride () 10 - 40 ml IV UD PRN PRN Reason: SALINE FLUSH Last Admin: 07/02/19 10:52 Dose: 10 ml Documented by: Medical Necessity - Tobacco Use Smoking Status: Current every day smoker Tobacco Use: Cigarettes Assessment/Plan All Active Problems (Last Reviewed 06/29/19 @ 04:24 by Godfrey Monte MD) Dizziness (Acute) Hypoxemia (Acute) Acute on chronic respiratory failure with hypoxemia (Acute) COPD (chronic obstructive pulmonary disease) (Acute) Pulmonary embolism (Resolved)
[2019-07-02 14:22] LABS: Phosphorus 2.3 mg/dL (2.5-4.9)
--- NOTE | 2019-07-02 15:26 | CHAPLAIN ---
Type of Pastoral Visit ___ Initial Visit _x__ Follow-up Visit ___ On-call Visit ___ General Patient Visit ___ Spiritual Assessment ___ Family Conference ___ Bereavement ___ Rapid Response ___ Code Blue ___ Other (describe below) Pastoral Care Referral From ___ Patient _x__ Family ___ Nurse ___ Physician ___ Broom Machine Operator ___ Senior Systems Analyst ___ Other (describe below) Sacrament/Intervention _x__ Active listening ___ Anointing ___ Mormonism ___ Bereavement ___ Communion ___ Ritika exploration ___ ___ Life review ___ Prayer ___ Reconciliation ___ Sacrament of Sick ___ Supportive presence ___ Wedding ___ Other (describe below) Pastoral Comments
[2019-07-02] MEDS: Loratadine 10 MG Tablet PO (21:01)
[2019-07-02] MEDS: Senna/Docusate Sodium 1 Tablet PO (21:01)
[2019-07-02] MEDS: Cyanocobalamin 500 MCG Tablet 1000 MCG PO (21:01)
[2019-07-02] MEDS: Clopidogrel Bisulfate 75 MG Tablet PO (21:02)
[2019-07-02] MEDS: Atorvastatin Calcium 20 MG Tablet PO (21:02)
[2019-07-03] VITALS (22 sets, daily range): BP systolic 103–130; BP diastolic 68–83; PULSE 77–97; RESP 12–21; TEMP 36.6–36.9; O2SAT 91–97
[2019-07-03] MEDS: Ipratropium/Albuterol Sulfate 3 ML AMPUL.NEB INHALATION ×6 (03:06→22:51)
[2019-07-03 04:37] LABS: Magnesium 1.9 mg/dL (1.6-2.6); Phosphorus 3.5 mg/dL (2.5-4.9)
[2019-07-03 04:40] LABS: Absolute Lymphocyte Count 0.87 X10^3/uL (0.83-4.51); Absolute Neutrophil Count 7.6 X10^3/uL (2.0-7.7); Basophil# 0.02 X10^3/uL; Basophil% 0.2 % (0-1); Hematocrit 37.3 % (40-54); Hemoglobin 12.2 g/dL (13.0-16.5); Lymphocyte # 0.87 X10^3/ul (4.0); Lymphocyte % 9.1 % (19-41); Mean Corp Hgb Conc 32.7 g/dL (32-36); Mean Corpuscular Volume 91.6 fL (80-94); Mean Platelet Vol. 9.7 fl (6.2-12.0); Monocyte# 0.89 X10^3/uL; Monocyte% 9.3 % (0-10); NRBC Flagged by Analyzer 0 % (0-5); Neutrophil # 7.59 X10^3/uL (2.7-7.7); Neutrophil % 79.5 % (47-70); Platelet Count 243 K/mm3 (150-450); RBC Distribution Width CV 13.4 % (11.6-14.6); RBC Distribution Width SD 45.6 fl (35.1-43.9); Red Blood Count 4.07 M/mm3 (4.6-6.2); White Blood Count 9.6 K/mm3 (4.4-11.0)
[2019-07-03 04:58] LABS: Anion Gap 10 (5-15); BUN 19 mg/dL (7-18); BUN/Creat Ratio 26.4 RATIO (10-20); Calcium,Total 8.3 mg/dL (8.5-10.1); Chloride 106 mmol/L (98-107); Creatinine, Serum 0.72 mg/dL (0.70-1.30); EST Glomerular Filtration Rate 119 mL/min (>60); Est Glom Filt Rate - Afr Amer 145 mL/min (>60); Estimated Creatinine Clearance 109.51 ml/min; Glucose 119 mg/dL (74-106); Potassium 3.8 mmol/L (3.5-5.1); Sodium Level 143 mmol/L (136-145)
[2019-07-03] MEDS: levoFLOXacin 750 MG Tablet PO (06:33)
--- NOTE | 2019-07-03 07:17 | PCM.PN.INT ---
Subjective: Patient did extremely well overnight. Patient has been weaned down to room air while at rest. Patient does continue to report a productive cough, but feels this is improving. Patient has noted some wheeze, but states I feel so much better than I did when I came in. General: Alert, Oriented x3, Cooperative, No apparent distress, Well developed, Well nourished, - - No conversational dyspnea. HEENT: Atraumatic, PERRLA, EOMI, Normocephalic, - - No scleral icterus or injection noted Oral: Moist Mucosa, No Gingival or Mucosal Lesions/ Ulcerations Neck: Supple, No JVD, No Nodes, Trachea Midline Lungs: No rhonchi, No rales, Diminished, Wheezes, - - Symmetric expansion. Cardiovascular: Regular rate, Regular Rhythm, Normal S1, Normal S2, No murmurs, No rub noted, No Gallop Abdomen: Bowel Sounds Present, Soft, Non Tender, Non-Distended Extremities: No clubbing, No cyanosis, No edema, Capillary Refill Less than 3 Seconds Skin: No rashes, No breakdown Musculoskeletal: No Tenderness to Palpation of Joints or Extremities Lymphatic: No Cervical, Supraclavicular, or Inguinal Adenopathy Neurological: Cranial nerves II-XII grossly intact, Neuro grossly intact, Motor Exam 5/5 strength throughout Psych/Mental Status: Alert and oriented to time, place, person, mood and affect Vital Signs Temp Pulse Resp BP Pulse Ox 36.7 C 89 20 H 103/68 93 07/03/19 05:00 07/03/19 06:27 07/03/19 06:27 07/03/19 06:00 07/03/19 06:27 Oxygen Flow Rate (L/min) 2 Oxygen Delivery Method Room Air Weight: 65.4 kg Body Mass Index (BMI) 22.0 Intake and Output for Last 24 Hours 07/01/19 07/02/19 07/03/19 23:59 23:59 23:59 Intake Total 4794.97 / 5371.97 3177.92 / 3577.92 400 / 400 Output Total 1500 / 0 2800 / 4300 1500 / 1500 Balance 3294.97 / 3321.97 377.92 / -722.08 -1100 / -1100 Labs (Last 48 Hours) 07/02/19 07/02/19 07/02/19 04:20 04:20 04:20 WBC 10.3 RBC 3.86 L Hgb 11.7 L Hct 37.1 L MCV 96.1 H MCH 30.3 MCHC 31.5 L RDW Std Deviation 48.5 H RDW Coeff of [place] 13.6 Plt Count 224 MPV 10.0 Immature Gran % (Auto) 1.100 H Neut % (Auto) 83.7 H Lymph % (Auto) 5.6 L [place] % (Auto) 9.5 Eos % (Auto) 0.0 Baso % (Auto) 0.1 Absolute Neuts (auto) 8.6 H Absolute Lymphs (auto) 0.57 L Nucleated RBC % 0 Differential Comment SCANNED Specimen Type Sample Site pH Bicarbonate Actual POC Total CO2 Base Excess O2 Saturation O2 % ABG pCO2 ABG pO2 Maykel Test O2 Delivery Device Vent Mode POC PEEP POC Pressure Suppt Blood Gas Notified Whom Blood Gas Notified Time Sodium 140 Potassium 4.2 Chloride 107 Carbon Dioxide 29.0 Anion Gap 4 L BUN 21 H Creatinine 0.62 L Estim Creat Clear Calc 122.16 Est GFR (MDRD) Af Amer 172 Est GFR (MDRD) Non-Af 142 BUN/Creatinine Ratio 33.9 H Glucose 136 H Calcium 8.1 L Phosphorus 2.3 L Magnesium 2.0 07/02/19 07/03/19 07/03/19 06:40 04:05 04:05 WBC 9.6 RBC 4.07 L Hgb 12.2 L Hct 37.3 L MCV 91.6 MCH 30.0 MCHC 32.7 RDW Std Deviation 45.6 H RDW Coeff of [place] 13.4 Plt Count 243 MPV 9.7 Immature Gran % (Auto) 1.900 H Neut % (Auto) 79.5 H Lymph % (Auto) 9.1 L [place] % (Auto) 9.3 Eos % (Auto) 0.0 Baso % (Auto) 0.2 Absolute Neuts (auto) 7.6 Absolute Lymphs (auto) 0.87 Nucleated RBC % 0 Differential Comment Specimen Type MICHAEL Sample Site R Radial pH 7.45 Bicarbonate Actual 28.7 H POC Total CO2 30 Base Excess 5 H O2 Saturation 70 L O2 % 30 ABG pCO2 41.4 ABG pO2 35 L* Maykel Test POS O2 Delivery Device Vent Vent Mode CPAP PS POC PEEP 5 POC Pressure Suppt 5 Blood Gas Notified Whom ICU Blood Gas Notified Time 640 Sodium Potassium Chloride Carbon Dioxide Anion Gap BUN Creatinine Estim Creat Clear Calc Est GFR (MDRD) Af Amer Est GFR (MDRD) Non-Af BUN/Creatinine Ratio Glucose Calcium Phosphorus 3.5 Magnesium 1.9 07/03/19 04:05 WBC RBC Hgb Hct MCV MCH MCHC RDW Std Deviation RDW Coeff of [place] Plt Count MPV Immature Gran % (Auto) Neut % (Auto) Lymph % (Auto) [place] % (Auto) Eos % (Auto) Baso % (Auto) Absolute Neuts (auto) Absolute Lymphs (auto) Nucleated RBC % Differential Comment Specimen Type Sample Site pH Bicarbonate Actual POC Total CO2 Base Excess O2 Saturation O2 % ABG pCO2 ABG pO2 Maykel Test O2 Delivery Device Vent Mode POC PEEP POC Pressure Suppt Blood Gas Notified Whom Blood Gas Notified Time Sodium 143 Potassium 3.8 Chloride 106 Carbon Dioxide 27.0 Anion Gap 10 BUN 19 H Creatinine 0.72 Estim Creat Clear Calc 109.51 Est GFR (MDRD) Af Amer 145 Est GFR (MDRD) Non-Af 119 BUN/Creatinine Ratio 26.4 H Glucose 119 H Calcium 8.3 L Phosphorus Magnesium Microbiology 06/30/19 06:07 Blood Culture (Wb) - Right Hand Blood Culture - Preliminary No growth in 48 hours. 06/30/19 06:00 Blood Culture (Wb) - Anticubital Left Blood Culture - Preliminary No growth in 48 hours. 06/30/19 06:07 Urine Catheter - Albright Urine Culture - Final Culture exhibits no growth. 06/30/19 00:15 Sputum, Induced/Lukens Gram Stain - Final 06/30/19 00:15 Sputum, Induced/Lukens Respiratory Culture - Final Medical Necessity - Tobacco Use Smoking Status: Current every day smoker Tobacco Use: Cigarettes Assessment/Plan All Active Problems (Last Reviewed 06/29/19 @ 04:24 by Godfrey Monte MD) Dizziness (Acute) Hypoxemia (Acute) Acute on chronic respiratory failure with hypoxemia (Acute) COPD (chronic obstructive pulmonary disease) (Acute) Pulmonary embolism (Resolved) RECOMMENDATIONS: 1. Continue empiric antibiotics to complete a 10-day course, keep bronchodilators, but transition to prednisone therapy 2. Aggressive pulmonary toileting with Acapella and incentive spirometer 3. Prednisone can be weaned over the next 12 to 14 days 4. Advance diet as tolerated 5. Transition to p.o. Protonix 6. Okay to leave the intensive care unit from my perspective IMPRESSIONS: 1. Acute on Chronic combined respiratory failure secondary to COPD Exacerbation Patient appears to have relatively advanced COPD by clinical inspection. Previous PFTs are unavailable at this time. Global wheezing is still noted, but patient appears to be tolerating this well. Patient will be continued on bronchodilators. Anticipate completing a 10-day course of antibiotics. Patient will be transition to prednisone therapy. This should be weaned over the next 12 to 14 days. Patient was extubated without complication, but will require aggressive pulmonary toileting. Continue with bronchodilators. Gram stain of sputum showing no organisms. 2. CAD s/p stent Previous ECHO showed preserved cardiac function. Patient did have sudden onset of chest pain. Low-level increase in troponins likely secondary to global hypoxemia. Low clinical suspicion for recurrent cardiac events. Would not recommend echocardiogram at this time. 3. Acute kidney injury/hyperkalemia Resolved. Patient has been hemodynamically stable. Clinical suspicion is patient may have had an element of ATN secondary to severe hypoxia. No malignant EKG changes are noted at this time. Patient has gotten Kayexalate during hospitalization. Potassium now in acceptable range 4. Tobacco Abuse/GERD/Poor history Complicates care, management, recovery and prognosis. May require nicotine patch. Patient is on a PPI and this can be transition to p.o. Code Visit Inpatient E&M: 41057 Subs Hosp L2
[2019-07-03] MEDS: Aspirin 81 MG TAB.CHEW PO (08:50)
[2019-07-03] MEDS: Pantoprazole Sodium 40 MG Tablet PO (08:51)
[2019-07-03] MEDS: predniSONE 20 MG Tablet 40 MG PO (11:18)
--- NOTE | 2019-07-03 12:01 | PN_ITS ---
Subjective: Doing well, no issues overnight. On RA and breathing ok Vitals/I&O's: Vital Signs Temp Pulse Resp BP Pulse Ox 97.8 F 80 16 128/81 H 91 07/03/19 09:31 07/03/19 11:21 07/03/19 11:21 07/03/19 09:31 07/03/19 11:21 Oxygen Flow Rate (L/min) 2 Oxygen Delivery Method Room Air Weight: 144 lb 2.917 oz Body Mass Index (BMI) 22.0 Intake and Output for Last 24 Hours 07/01/19 07/02/19 07/03/19 23:59 23:59 23:59 Intake Total 4794.97 / 5371.97 3177.92 / 3577.92 700 / 700 Output Total 1500 / 0 2800 / 4300 3150 / 3150 Balance 3294.97 / 3321.97 377.92 / -722.08 -2450 / -2450 General: Alert, oriented x3, cooperative, no apparent distress HEENT: Atraumatic, PERRLA, Normocephalic Oral: Dry Mucosa Neck: Supple, No JVD Lungs: No rhonchi, No rales, Diminished, slight Wheezes, - - Poor airflow Cardiovascular: Regular rate, regular Rhythm, Normal S1, Normal S2, No murmurs Abdomen: Soft, Non Tender, Non-Distended, No Hepato-splenomegaly Extremities: No edema, Capillary Refill Less than 3 Seconds Skin: No rashes, No breakdown Neurological: Neuro grossly intact, sensory exam intact to light touch and pain Psych/Mental Status: Normal affect, appropriate Microbiology Past 72 Hours 06/30/19 06:07 Blood Culture (Wb) - Right Hand Blood Culture - Preliminary No growth in 48 hours. 06/30/19 06:00 Blood Culture (Wb) - Anticubital Left Blood Culture - Preliminary No growth in 48 hours. 06/30/19 06:07 Urine Catheter - Albright Urine Culture - Final Culture exhibits no growth. 06/30/19 00:15 Sputum, Induced/Lukens Gram Stain - Final 06/30/19 00:15 Sputum, Induced/Lukens Respiratory Culture - Final Laboratory Results 07/02/19 04:20: Phosphorus 2.3 L, Magnesium 2.0 07/03/19 04:05: Phosphorus 3.5, Magnesium 1.9 07/03/19 04:05: WBC 9.6, RBC 4.07 L, Hgb 12.2 L, Hct 37.3 L, MCV 91.6, MCH 30.0, MCHC 32.7, RDW Std Deviation 45.6 H, RDW Coeff of [place] 13.4, Plt Count 243, MPV 9.7, Immature Gran % (Auto) 1.900 H, Neut % (Auto) 79.5 H, Lymph % (Auto) 9.1 L, [place] % (Auto) 9.3, Eos % (Auto) 0.0, Baso % (Auto) 0.2, Absolute Neuts (auto) 7.6, Absolute Lymphs (auto) 0.87, Nucleated RBC % 0 07/03/19 04:05: Sodium 143, Potassium 3.8, Chloride 106, Carbon Dioxide 27.0, Anion Gap 10, BUN 19 H, Creatinine 0.72, Estim Creat Clear Calc 109.51, Est GFR (MDRD) Af Amer 145, Est GFR (MDRD) Non-Af 119, BUN/Creatinine Ratio 26.4 H, Glucose 119 H, Calcium 8.3 L Current Medications Acetaminophen (Tylenol) 650 mg PO Q6H PRN PRN PRN Reason: Pain Score 1-3 /Temp>100.7 Albuterol Sulfate (Ventolin Aerosols) 2.5 mg INHALATION Q2H PRN PRN PRN Reason: SHORTNESS OF BREATH Last Admin: 06/29/19 20:33 Dose: 2.5 mg Documented by: Albuterol/Ipratropium (Duoneb) 3 ml INHALATION Q4H.RT COUNTS [facility]CLUDE 234 BEDS AT THE [facility] Last Admin: 07/03/19 11:21 Dose: 3 ml Documented by: Aspirin (Aspirin, Baby) 81 mg PO DAILY@0800 [facility]S [facility] 234 BEDS AT [facility] Last Admin: 07/03/19 08:50 Dose: 81 mg Documented by: Atorvastatin Calcium (Lipitor) 20 mg PO QHS [facility]S [facility] 234 BEDS AT [facility] Last Admin: 07/02/19 21:02 Dose: 20 mg Documented by: Calamine/Phenol (Calmoseptine Ointment) 1 applic TOPICAL 4X/DAY PRN; Protocol PRN Reason: irritated skin Cholecalciferol (Vitamin D) 2,000 unit GT QHS [facility]S [facility] 234 BEDS AT [facility] Last Admin: 07/02/19 21:02 Dose: 2,000 unit Documented by: Clopidogrel Bisulfate (Plavix) 75 mg PO QHS [facility]S [facility]CLUDE 234 BEDS AT [facility] Last Admin: 07/02/19 21:02 Dose: 75 mg Documented by: Cyanocobalamin (Vitamin B12) 1,000 mcg PO QHS [facility]CLUDE 234 BEDS AT [facility] Last Admin: 07/02/19 21:01 Dose: 1,000 mcg Documented by: Dextrose (D50w Syringe) 0 gm IV X1 PRN; Protocol PRN Reason: Hypoglycemia Enoxaparin Sodium (Lovenox) 40 mg SC DAILY@1000 [facility]S [facility]CLUDE 234 BEDS AT [facility] Last Admin: 07/03/19 08:52 Dose: Not Given Documented by: Glucagon () 1 mg IM .X1 PRN PRN Reason: Hypoglycemia Levofloxacin (Levaquin Tablet) 750 mg PO DAILY@0600 [facility]S [facility]CLUDE 234 BEDS AT [facility] Stop: 07/07/19 06:01 Last Admin: 07/03/19 06:33 Dose: 750 mg Documented by: Loratadine (Claritin) 10 mg PO QHS [facility]CLUDE 234 BEDS AT [facility] Last Admin: 07/02/19 21:01 Dose: 10 mg Documented by: Ondansetron HCl (Zofran) 4 mg IV Q8H PRN PRN PRN Reason: Nausea Pantoprazole Sodium (Protonix) 40 mg PO DAILY [facility]S [facility]CLUDE 234 BEDS AT [facility] Last Admin: 07/03/19 08:51 Dose: 40 mg Documented by: Prednisone () 40 mg PO DAILY@0800 COUNTS INCLUDE 234 BEDS AT [facility] Last Admin: 07/03/19 11:18 Dose: 40 mg Documented by: Senna/Docusate Sodium (Senokot-S, Aspen-Colace) 1 tablet PO BID [facility]S INCLUDE 234 BEDS AT [facility] Last Admin: 07/03/19 08:52 Dose: Not Given Documented by: Sodium Chloride () 10 - 40 ml IV UD PRN PRN Reason: SALINE FLUSH Last Admin: 07/02/19 21:00 Dose: 20 ml Documented by: STROKE Vital Signs/Narrative: Vital Signs Temp Pulse Resp BP Pulse Ox 07/03/19 11:21 80 16 91 07/03/19 09:31 97.8 F 82 16 128/81 H 95 Medical Necessity - Tobacco Use Smoking Status: Current every day smoker Tobacco Use: Cigarettes Assessment/Plan All Active Problems (Last Reviewed 06/29/19 @ 04:24 by Godfrey Monte MD) Dizziness (Acute) Hypoxemia (Acute) Acute on chronic respiratory failure with hypoxemia (Acute) COPD (chronic obstructive pulmonary disease) (Acute) Pulmonary embolism (Resolved) 1. Acute combined respiratory failure secondary to COPD exacerbation with respiratory acidosis/possible left lingular pneumonia -C/w PO Prednisone -Continue with bronchodilators -We will continue with Levaquin -Appreciate pulmonology assistance -Leukocytosis resolved, and cultures are all negative 2. Hyperkalemia likely secondary to FELI-resolved 3. CAD status post stents -He had an echo in May with a normal EF and normal diastolic function -Can continue with his aspirin and Plavix 4. Tobacco abuse -He quit smoking the day before presentation -Refused nicotine patch prior to being intubated -Continue to advised cessation 5. GERD -Stable -Continue with PPI DVT: Lovenox
--- NOTE | 2019-07-03 15:35 | CHAPLAIN ---
Type of Pastoral Visit ___ Initial Visit _x__ Follow-up Visit ___ On-call Visit ___ General Patient Visit ___ Spiritual Assessment ___ Family Conference ___ Bereavement ___ Rapid Response ___ Code Blue ___ Other (describe below) Pastoral Care Referral From _x__ Patient ___ Family ___ Nurse ___ Physician ___ Production Assembly Operator ___ Strategy Intern ___ Other (describe below) Sacrament/Intervention _x__ Active listening ___ Anointing ___ Yarsani ___ Bereavement ___ Communion ___ Ritika exploration ___ ___ Life review ___ Prayer ___ Reconciliation ___ Sacrament of Sick _x__ Supportive presence ___ Wedding ___ Other (describe below) Pastoral Comments patient is actively engaged in conversation and shows significant improvement; family still present in room; no new needs; pt expects to be discharged tomorrow;
--- NOTE | 2019-07-03 16:06 | CPS ---
Patient working on PEP on own.
[2019-07-03] MEDS: Clopidogrel Bisulfate 75 MG Tablet PO (21:05)
[2019-07-03] MEDS: Cyanocobalamin 500 MCG Tablet 1000 MCG PO (21:05)
[2019-07-03] MEDS: Atorvastatin Calcium 20 MG Tablet PO (21:05)
[2019-07-03] MEDS: Loratadine 10 MG Tablet PO (21:05)
[2019-07-04] MEDS: Ipratropium/Albuterol Sulfate 3 ML AMPUL.NEB INHALATION ×2 (02:41→06:46)
[2019-07-04 02:42] VITALS: PULSE 85; RESP 16
[2019-07-04 02:55] VITALS: BP 116/74; PULSE 78; PULSE 89; RESP 16; TEMP 36.8; O2SAT 93
[2019-07-04] MEDS: levoFLOXacin 750 MG Tablet PO (05:35)
[2019-07-04 06:46] VITALS: PULSE 78; RESP 16; O2SAT 98
[2019-07-04 07:18] VITALS: PULSE 106
[2019-07-04] MEDS: Pantoprazole Sodium 40 MG Tablet PO (08:13)
[2019-07-04] MEDS: Aspirin 81 MG TAB.CHEW PO (08:13)
[2019-07-04] MEDS: predniSONE 20 MG Tablet 40 MG PO (08:13)
[2019-07-04 08:17] VITALS: BP 119/82; PULSE 88; RESP 18; TEMP 36.9; O2SAT 97
--- NOTE | 2019-07-04 08:33 | PN_ITS ---
Subjective: Patient did well overnight. Patient states he was able to ambulate through the halls on room air and desaturated to 91%. Patient has reported increased production with cough today, but overall feels subjectively improved. - Physical Exam Vitals/I&O's: Vital Signs Temp Pulse Resp BP Pulse Ox 36.9 C 88 18 119/82 H 97 07/04/19 08:17 07/04/19 08:17 07/04/19 08:17 07/04/19 08:17 07/04/19 08:17 Oxygen Flow Rate (L/min) 2 Oxygen Delivery Method Room Air Weight: 65.2 kg Body Mass Index (BMI) 22.0 Intake and Output for Last 24 Hours 07/02/19 07/03/19 07/04/19 23:59 23:59 23:59 Intake Total 3177.92 / 3577.92 1725 / 1725 500 / 500 Output Total 2800 / 4300 5525 / 5525 675 / 675 Balance 377.92 / -722.08 -3800 / -3800 -175 / -175 General: Alert, Oriented x3, Cooperative, No apparent distress, Well developed, Well nourished, - - No conversational dyspnea. Appears older than stated age. HEENT: Atraumatic, PERRLA, EOMI, Normocephalic, - - No scleral icterus or injection noted Oral: Moist Mucosa, No Gingival or Mucosal Lesions/ Ulcerations Neck: Supple, No JVD, No Nodes, Trachea Midline Lungs: No rhonchi, No rales, Diminished, Wheezes, - - Symmetric expansion. No dullness to percussion. Cardiovascular: Regular rate, Regular Rhythm, Normal S1, Normal S2, No murmurs, No rub noted, No Gallop Abdomen: Bowel Sounds Present, Soft, Non Tender, Non-Distended Extremities: No clubbing, No cyanosis, No edema, Capillary Refill Less than 3 Seconds Skin: No rashes, No breakdown Musculoskeletal: No Tenderness to Palpation of Joints or Extremities Lymphatic: No Cervical, Supraclavicular, or Inguinal Adenopathy Neurological: Cranial nerves II-XII grossly intact, Neuro grossly intact, Motor Exam 5/5 strength throughout Psych/Mental Status: Alert and oriented to time, place, person, mood and affect Microbiology Past 72 Hours 06/30/19 06:07 Blood Culture (Wb) - Right Hand Blood Culture - Preliminary No growth in 48 hours. 06/30/19 06:00 Blood Culture (Wb) - Anticubital Left Blood Culture - Preliminary No growth in 48 hours. 06/30/19 06:07 Urine Catheter - Albright Urine Culture - Final Culture exhibits no growth. 06/30/19 00:15 Sputum, Induced/Lukens Gram Stain - Final 06/30/19 00:15 Sputum, Induced/Lukens Respiratory Culture - Final Current Medications Acetaminophen (Tylenol) 650 mg PO Q6H PRN PRN PRN Reason: Pain Score 1-3 /Temp>100.7 Albuterol Sulfate (Ventolin Aerosols) 2.5 mg INHALATION Q2H PRN PRN PRN Reason: SHORTNESS OF BREATH Last Admin: 06/29/19 20:33 Dose: 2.5 mg Documented by: Albuterol/Ipratropium (Duoneb) 3 ml INHALATION Q4H.RT [facility] Last Admin: 07/04/19 06:46 Dose: 3 ml Documented by: Aspirin (Aspirin, Baby) 81 mg PO DAILY@0800 [facility] Last Admin: 07/04/19 08:13 Dose: 81 mg Documented by: Atorvastatin Calcium (Lipitor) 20 mg PO QHS [facility] Last Admin: 07/03/19 21:05 Dose: 20 mg Documented by: Calamine/Phenol (Calmoseptine Ointment) 1 applic TOPICAL 4X/DAY PRN; Protocol PRN Reason: irritated skin Cholecalciferol (Vitamin D) 2,000 unit GT QHS [facility] Last Admin: 07/03/19 21:04 Dose: 2,000 unit Documented by: Clopidogrel Bisulfate (Plavix) 75 mg PO QHS [facility] Last Admin: 07/03/19 21:05 Dose: 75 mg Documented by: Cyanocobalamin (Vitamin B12) 1,000 mcg PO QHS [facility] Last Admin: 07/03/19 21:05 Dose: 1,000 mcg Documented by: Dextrose (D50w Syringe) 0 gm IV X1 PRN; Protocol PRN Reason: Hypoglycemia Enoxaparin Sodium (Lovenox) 40 mg SC DAILY@1000 [facility] Last Admin: 07/04/19 08:09 Dose: Not Given Documented by: Glucagon () 1 mg IM .X1 PRN PRN Reason: Hypoglycemia Levofloxacin (Levaquin Tablet) 750 mg PO DAILY@0600 [facility] Stop: 07/07/19 06:01 Last Admin: 07/04/19 05:35 Dose: 750 mg Documented by: Loratadine (Claritin) 10 mg PO QHS [facility] Last Admin: 07/03/19 21:05 Dose: 10 mg Documented by: Ondansetron HCl (Zofran) 4 mg IV Q8H PRN PRN PRN Reason: Nausea Pantoprazole Sodium (Protonix) 40 mg PO DAILY [facility] Last Admin: 07/04/19 08:13 Dose: 40 mg Documented by: Prednisone () 40 mg PO DAILY@0800 [facility] Last Admin: 07/04/19 08:13 Dose: 40 mg Documented by: Senna/Docusate Sodium (Senokot-S, Aspen-Colace) 1 tablet PO BID [facility] Last Admin: 07/04/19 08:09 Dose: Not Given Documented by: Sodium Chloride () 10 - 40 ml IV UD PRN PRN Reason: SALINE FLUSH Last Admin: 07/02/19 21:00 Dose: 20 ml Documented by: Medical Necessity - Tobacco Use Smoking Status: Current every day smoker Tobacco Use: Cigarettes Assessment/Plan All Active Problems (Last Reviewed 06/29/19 @ 04:24 by Godfrey Monte MD) Dizziness (Acute) Hypoxemia (Acute) Acute on chronic respiratory failure with hypoxemia (Acute) COPD (chronic obstructive pulmonary disease) (Acute) Pulmonary embolism (Resolved) RECOMMENDATIONS: 1. Continue empiric antibiotics to complete a total 10-day course, keep bronchodilators 2. Aggressive pulmonary toileting with Acapella and incentive spirometer 3. Prednisone can be weaned over the next 12 to 14 days 4. Advance diet as tolerated 5. Follow-up in 2 weeks with nurse practitioner in our office if requested. Okay to discharge from a pulmonary perspective 6. Outpatient complete PFT, walking oximetry and screening CT scan would be appropriate IMPRESSIONS: 1. Acute on Chronic combined respiratory failure secondary to COPD Exacerbation Patient appears to have relatively advanced COPD by clinical inspection. Previous PFTs are unavailable at this time. Global wheezing is still noted, but patient appears to be tolerating this well. Patient will be continued on bronchodilators. Anticipate completing a total of 10-day course of antibiotics. Prednisone should be weaned over the next 12 to 14 days. Patient was extubated without complication, but will require aggressive pulmonary toileting. Continue with bronchodilators. Okay to discharge from a pulmonary perspective 2. CAD s/p stent Previous ECHO showed preserved cardiac function. Patient did have sudden onset of chest pain. Low-level increase in troponins likely secondary to global hypoxemia. Low clinical suspicion for recurrent cardiac events. Would not recommend echocardiogram at this time. 3. Acute kidney injury/hyperkalemia Resolved. Patient has been hemodynamically stable. Clinical suspicion is patient may have had an element of ATN secondary to severe hypoxia. No malignant EKG changes are noted at this time. Patient has gotten Kayexalate during hospitalization. Potassium previously in acceptable range 4. Tobacco Abuse/GERD/Poor history Complicates care, management, recovery and prognosis. May require nicotine patch. Patient is on a PPI and this can be transition to p.o. Code Visit Inpatient E&M: 29856 Subs Hosp L2
--- NOTE | 2019-07-04 08:58 | PCM.DC ---
- Discharge Diagnoses Current Active Problems: Current Active and Chronic Problems (Last Reviewed 06/29/19 @ 04:24 by Godfrey Monte MD) COPD exacerbation (Chronic) You will use the following diet at home:: Cardiac Your food should be the consistency of: Regular Your liquids should be the consistency of: Regular/Thin Discharge Activity: Return to Normal Activity Call your doctor if you observe: Fever of 101 or Higher, Shortness of breath, Dizziness, Fainting spells, Swelling in the ankles, Chest pain, Increased palpitations (irregular heartbeat) Allergies/Adverse Reactions: Allergies latex Allergy (Verified 06/29/19 02:38) Rash varenicline tartrate [From Chantix] Allergy (Verified 06/29/19 02:38) Hives aspirin Adverse Reaction (Verified 06/29/19 02:38) Upset Stomach Medications to take at Discharge Clopidogrel Bisulfate [Plavix] 75 mg PO QHS 06/16/13 Cholecalciferol (VIT D3) [Vitamin D3] 2,000 units PO QHS 03/25/16 Omeprazole [Prilosec] 40 mg PO DAILY 05/13/17 Aspirin [Aspirin, Baby] 81 mg PO DAILY@0800 06/20/17 cyanocobalamin (vit B-12) 1,000 mcg tablet 1,000 mcg PO QHS 10/15/17 Cetirizine HCl [Zyrtec] 10 mg PO QHS 12/14/17 Mometasone/Formoterol [Dulera 200 Mcg/5 Mcg Inhaler] 2 puff IH BID 06/30/18 atorvastatin 20 mg tablet 20 mg PO DAILY #90 tab 12/02/18 albuterol sulfate HFA 90 mcg/actuation aerosol inhaler 2 puff INHALATION Q2H PRN #18 g 03/10/19 levoFLOXacin tablet [Levaquin tablet] 750 mg PO DAILY@0600 #3 tab 07/04/19 predniSONE tablet 40 mg PO DAILY@0800 #14 tab 07/04/19 The following prescriptions were given: levoFLOXacin tablet [Levaquin tablet] 750 mg PO DAILY@0600 #3 tab Transmission Status: Pending to [facility]/pharmacy #[id number] predniSONE tablet 40 mg PO DAILY@0800 #14 tab Transmission Status: Pending to [facility]/pharmacy #[id number] Primary Care Physician: Alexey Mayberry MD [Primary Care Provider] - Please follow up with your Primary Care Physician in: 3-5 days Test Results: Test results from this visit will be discussed in further detail at your follow-up appointment, if applicable. Please Follow Up With: Bruce Devries MD When: 2 weeks
--- NOTE | 2019-07-04 11:33 | PCM.DC.SUM ---
Discharge Date and Diagnosis Date of Admission: 06/29/19 Date of Discharge: 07/04/19 - Secondary Discharge Diagnosis Chronic Problems (Last Reviewed 06/29/19 @ 04:24 by Godfrey Monte MD) COPD exacerbation (Chronic) Presence of stent in coronary artery (Chronic ~06/27/08) PTCA and stenting RCA 06/27/2008 at [place]; Old myocardial infarction (Chronic) Ischemic cardiomyopathy (Chronic) HLD (hyperlipidemia) (Chronic) H/O percutaneous transluminal coronary angioplasty (Chronic) PTCA and stenting RCA 06/27/2008 at [place]; Nicotine abuse (Chronic) History of pulmonary embolism (Chronic) Hospital Course and Treatment Imaging Results: CXR: IMPRESSION: No acute cardiopulmonary disease, stable study in the interval. Consults: ICU/Pulmonology Operations: None Procedures: None, Intubation Summary of Care Provided: Per HPI: The patient is a 58 year old M with a significant history of CAD status post stent; hyperlipidemia; tobacco abuse COPD and asthma who presented to emergency department with shortness of breath that woke him up from sleep. His symptoms started few hours before presentation. Associated with symptoms is wheezing. He denies any coughing. Emergency department doctor reported that on presentation patient was hypoxic with oxygen saturation of 85%. He had conversational dyspnea and retractions and was placed on BiPAP. Hospital Course: 1. Acute combined respiratory failure secondary to COPD exacerbation with respiratory acidosis/possible left lingular pneumonia/tobacco [id number] male with a history of significant COPD, presented with COPD exacerbation and possible pneumonia. He was started on Solu-Medrol as well as inhalers and Levaquin for the possible left lingular pneumonia. He deteriorated overnight on the day of his first admission after walking. He became significantly hypoxic and hypercapnic and had to be intubated. He was transferred to the ICU and monitored in the ICU for about 2 days. He was extubated in about 36 hours after being intubated and did well post extubation with continued improvement in his respiratory status. He was discharged today on no oxygen and a steroid taper for 12 days and 3 more days of Levaquin to complete a 10-day course of antibiotics. Also there is multiple extensive discussions about his need to quit smoking, he understands that his risk for status will continue to worsen if he continues to smoke. I discussed the risks and benefits of discharge and he expressed understanding. He needs to follow-up with his primary care doctor in 3 to 5 days as well as with pulmonology and 1 to 2 weeks. 2. His other medical diagnoses were evaluated and his home medications were continued where appropriate - Physical Exam Vitals/I&O's: Vital Signs Temp Pulse Resp BP Pulse Ox 98.5 F 88 18 119/82 H 97 07/04/19 08:17 07/04/19 08:17 07/04/19 08:17 07/04/19 08:17 07/04/19 08:17 Oxygen Flow Rate (L/min) 2 Oxygen Delivery Method Room Air Weight: 143 lb 11.862 oz Body Mass Index (BMI) 22.0 Intake and Output for Last 24 Hours 07/02/19 07/03/19 07/04/19 23:59 23:59 23:59 Intake Total 3177.92 / 3577.92 1725 / 1725 500 / 500 Output Total 2800 / 4300 5525 / 5525 675 / 675 Balance 377.92 / -722.08 -3800 / -3800 -175 / -175 General: Alert, oriented x3, cooperative, no apparent distress HEENT: Atraumatic, PERRLA, Normocephalic Oral: Dry Mucosa Neck: Supple, No JVD Lungs: No rhonchi, No rales, slight Wheezes, airflow is much improved Cardiovascular: Regular rate, regular Rhythm, Normal S1, Normal S2, No murmurs Abdomen: Soft, Non Tender, Non-Distended, No Hepato-splenomegaly Extremities: No edema, Capillary Refill Less than 3 Seconds Skin: No rashes, No breakdown Neurological: Neuro grossly intact, sensory exam intact to light touch and pain Psych/Mental Status: Normal affect, appropriate Microbiology Past 72 Hours 06/30/19 06:07 Blood Culture (Wb) - Right Hand Blood Culture - Preliminary No growth in 48 hours. 06/30/19 06:00 Blood Culture (Wb) - Anticubital Left Blood Culture - Preliminary No growth in 48 hours. 06/30/19 06:07 Urine Catheter - Albright Urine Culture - Final Culture exhibits no growth. 06/30/19 00:15 Sputum, Induced/Lukens Gram Stain - Final 06/30/19 00:15 Sputum, Induced/Lukens Respiratory Culture - Final Discharge Activity: Return to Normal Activity Call your doctor if you observe: Fever of 101 or Higher, Shortness of breath, Dizziness, Fainting spells, Swelling in the ankles, Chest pain, Increased palpitations (irregular heartbeat) Home Medications: Medications to take at Discharge Clopidogrel Bisulfate [Plavix] 75 mg PO QHS 06/16/13 Cholecalciferol (VIT D3) [Vitamin D3] 2,000 units PO QHS 03/25/16 Omeprazole [Prilosec] 40 mg PO DAILY 05/13/17 Aspirin [Aspirin, Baby] 81 mg PO DAILY@0800 06/20/17 cyanocobalamin (vit B-12) 1,000 mcg tablet 1,000 mcg PO QHS 10/15/17 Cetirizine HCl [Zyrtec] 10 mg PO QHS 12/14/17 Mometasone/Formoterol [Dulera 200 Mcg/5 Mcg Inhaler] 2 puff IH BID 06/30/18 atorvastatin 20 mg tablet 20 mg PO DAILY #90 tab 12/02/18 albuterol sulfate HFA 90 mcg/actuation aerosol inhaler 2 puff INHALATION Q2H PRN #18 g 03/10/19 levoFLOXacin tablet [Levaquin tablet] 750 mg PO DAILY@0600 #3 tab 07/04/19 predniSONE tablet 40 mg PO DAILY@0800 #14 tab 07/04/19 Following Prescrptions Were Given to Patient: levoFLOXacin tablet [Levaquin tablet] 750 mg PO DAILY@0600 #3 tab Transmission Status: Received by [facility]/pharmacy #[id number] predniSONE tablet 40 mg PO DAILY@0800 #14 tab Transmission Status: Received by [facility]/pharmacy #[id number] Primary Care Physician: Alexey Mayberry MD [Primary Care Provider] - Please follow up with your Primary Care Physician in: 3-5 days Please Follow Up With: Bruce Devries MD When: 2 weeks Disposition: Home Minutes spent on discharge:: 35 Patient Condition:: Stable Medical Necessity - Tobacco Use Smoking Status: Current every day smoker Tobacco Use: Cigarettes Meaningful Use Info Meaningful Use Diagnoses (Choose all that apply): None applicable Code Visit Inpatient E&M: 72331 Disch Hosp
== END 2019-07-04 09:46 | disposition home or self-care (01) | DRG 208 ==
LOC: ED 03:44 → PCU 03:50 → ICU 23:18 → PCU 07-03 10:46
PROVIDERS: Family Medicine; Internal Medicine Critical Care Medicine; Admitting Provider Hospitalist; Emergency Provider Emergency Medicine; Family Provider Internal Medicine; PCP Internal Medicine; Visit Provider Family Medicine
DX: J44.1 Chronic obstructive pulmonary disease with (acute) exacerbation (principal); J96.01 Acute respiratory failure with hypoxia; J18.9 Pneumonia, unspecified organism; N17.9 Acute kidney failure, unspecified; E87.2 Acidosis; I25.10 Atherosclerotic heart disease of native coronary artery without angina pectoris; K21.9 Gastro-esophageal reflux disease without esophagitis; E87.5 Hyperkalemia; F17.210 Nicotine dependence, cigarettes, uncomplicated; I25.5 Ischemic cardiomyopathy; E78.5 Hyperlipidemia, unspecified; I25.2 Old myocardial infarction; Z86.711 Personal history of pulmonary embolism; Z95.5 Presence of coronary angioplasty implant and graft
CPT/HCPCS: 31500; 31720; 36600; 71045; 74018; 80048; 82550; 82803; 83735; 84100; 84478; 84484; 85025; 87040; 87070; 87086; 87205; 87641; 93005; 94002; 94003; 94640; 94660; 94667; 94668; 95831; 97110; 97162; 97166; 97530; 97802; 99251; 99285; 99406; J7030; J7050; A4216; G0463; J0610

== ENCOUNTER → 2019-08-03 08:34 | Outpatient (CLI) | payer MEDICARE, MEDICAID, SELFPAY ==
[2019-07-28 11:28] VITALS: BMI 22.0
[2019-08-03 08:54] VITALS: PULSE 86; PULSE 87; PULSE 88; PULSE 89; PULSE 91; PULSE 93; PULSE 97; O2SAT 93; O2SAT 94; O2SAT 95
--- NOTE | 2019-08-03 10:51 | PCM.PSN.6M ---
PSN 6 Minute Walk Test - 6 Minute Walk Test 6 Minute Walk Test: 6 Minute Walk Test PSN:6-Minute Walk Test Start: 08/03/19 08:54 Freq: Status: Active Protocol: [id number].6MINW Document 08/03/19 08:54 SM (Rec: 08/03/19 08:56 B [id number]) 6 Minute Walk Test Date Performed 08/03/19 Time Performed 08:42 Height 5 ft 8 in Weight: 69.853 kg Weight in Pounds 154.[address]: Debbi Schaffer Assistive device used: None Pre-test Oxygen Delivery Method Room Air Pulse Ox (%) 95 Pulse Rate (60-100 beats/min) 86 Dyspnea Ken Scale (0-10) 2 Exertion Ken Scale (6-20) 11 1st minute Oxygen Delivery Method Room Air Pulse Ox (%) 93 Pulse Rate (60-100 beats/min) 97 2nd minute Oxygen Delivery Method Room Air Pulse Ox (%) 95 Pulse Rate (60-100 beats/min) 89 3rd minute Oxygen Delivery Method Room Air Pulse Ox (%) 93 Pulse Rate (60-100 beats/min) 91 4th minute Oxygen Delivery Method Room Air Pulse Ox (%) 93 Pulse Rate (60-100 beats/min) 93 5th minute Oxygen Delivery Method Room Air Pulse Ox (%) 94 Pulse Rate (60-100 beats/min) 87 6th minute Oxygen Delivery Method Room Air Pulse Ox (%) 94 Pulse Rate (60-100 beats/min) 88 Post-test Oxygen Delivery Method Room Air Pulse Ox (%) 95 Pulse Rate (60-100 beats/min) 93 Dyspnea Ken Scale (0-10) 1 Exertion Ken Scale (6-20) 14 Full Laps Walked 16 Partial Lap, Number of Tiles Walked 26 Total Distance Walked (ft) 970 - Interpretation Interpretation: The patient was able to ambulate 970 feet over the course of 6 minutes on room air with no assistive devices or breaks. Patient was noted to have an oxygen darnell of 93% and heart rate stayed in the 90s for most of the ambulation. These findings are consistent with deconditioning. - Recommendations Recommendations: No supplemental oxygen is indicated at this time.
== END ==
PROVIDERS: Family Provider Internal Medicine; PCP Internal Medicine; Referring Provider Nurse Practitioner Acute Care; Visit Provider Nurse Practitioner Acute Care
DX: J44.9 Chronic obstructive pulmonary disease, unspecified (principal)
CPT/HCPCS: 94618

== ENCOUNTER → 2019-08-11 07:12 | Outpatient (CLI) | payer MEDICARE, MEDICAID, SELFPAY ==
[2019-07-28 11:28] VITALS: BMI 22.0
--- NOTE | 2019-08-11 17:13 | PFTCOMP_ITS ---
COMPLETE PULMONARY FUNCTION TEST INTERPRETATION Brief HPI: Patient is a 58 year old male, currently under the care of myself, who presents to [facility] for complete pulmonary function tests secondary to diagnosis of COPD. Respiratory therapist reports good effort and reproducible results. Interpretation: Forced expiration spirometry shows a moderate large airways obstructive ventilatory defect with an FEV1 of 67% predicted. There is a significant bronchodilator response in FEV1 by strict ATS criteria. Spirograms are of good quality and plateau slowly, indicating slowly emptying areas of the lungs. The respiratory flow volume loop shows decreased expiratory flow rates at all lung volumes consistent with airway obstruction. Lung volumes by body plethysmography show a normal total lung capacity at 6.36 L, 102% predicted. All other lung volumes are within normal limits. Diffusion capacity by carbon monoxide is decreased at 62% predicted. The airway resistance is elevated. No previous pulmonary function tests were available for review. Impression: Partially reversible moderate large airways obstructive ventilatory defect with a symmetric reduction diffusing capacity, and a pattern consistent with COPD/asthma overlap syndrome.
== END ==
PROVIDERS: Family Provider Internal Medicine; PCP Internal Medicine; Referring Provider Nurse Practitioner Acute Care; Visit Provider Nurse Practitioner Acute Care
DX: J44.9 Chronic obstructive pulmonary disease, unspecified (principal)
CPT/HCPCS: 94060; 94726; 94729

== ENCOUNTER → 2019-08-13 13:23 | Outpatient (CLI) | payer MEDICARE, MEDICAID, SELFPAY ==
[2019-07-28 11:28] VITALS: BMI 22.0
--- NOTE | 2019-08-13 13:24 | CT_ITS ---
STUDY: LOW DOSE CT LUNG CANCER SCREENING REASON FOR EXAM: Male, 58 years old. Prior smoker. 80 pack-year history. RADIATION DOSAGE (If Supplied By Facility): CTDIvol = ( 3.02 ) mGy, DLP = ( 116.26 ) mGycm TECHNIQUE: No contrast was administered. Low dose technique was utilized (average mAS-38 and kVp 120). 1.25 mm axial source images with a slice interval of 1.25-mm were reconstructed in lung windows. 2.5 mm axial source images with a slice interval of 2.5-mm were reconstructed in lung windows. 5.0 mm axial source images with a slice interval of 5.0-mm were reconstructed in soft tissue windows. Nodule measured using lung windows on PACS and/or independent workstation with automated measurement of minimum and maximum diameter. Nodule measurement reported as average diameter rounded to the nearest whole number. Growth is defined as an increase ins size of greater than 1.5 mm. COMPARISON: CTA of the chest, March 29, 2018 and December 06, 2014. NODULES: Total lung nodules (excluding granulomas): 0 Emphysema: There are diffuse emphysematous changes with bilateral apical bullae. Endobronchial lesion: None Aorta: Minimal atherosclerotic changes of the thoracic aorta without aneurysm. Coronary arteries: Stable coronary artery calcifications. Heart: Normal in size Pulmonary artery: Normal in size Mediastinal nodes: There is diffuse mediastinal lymphadenopathy unchanged in size from the previous studies. Other chest and abdominal findings: There are mild degenerative changes of the thoracic spine. CT/Low Dose CT Lung Screening IMPRESSION: Lung-RADS category 1 - Continue annual screening with LDCT in 12 months. IMPORTANT NOTES FOR USE: ACR Lung-RADS Version 1.0 Assessment Categories Release Date: December 28, 2013 Category: Coded 0-4 bases on nodule(s) with highest degree of suspicion. Negative screen is defined as categories 1 and 2; a positive screen is defined as categories 3 and 4. Category 3 and 4A nodules that are unchanged on interval CT should be coded as category 2, and individuals returned to screening in 12 months. Category 4X: Category 3 or 4 nodules with additional imaging findings that increase the suspicion of lung cancer, such as spiculation, GGN that doubles in size in 1 year, enlarged lymph notes, etc. Category Modifiers: S (significant finding unrelated to lung cancer) and C (prior history of treated lung cancer) may be added to the 0-4 Lung-RADS Electronically Signed: Roosevelt Doyle DO at 19:15 EST Tel [phone], Service support ,
== END ==
PROVIDERS: Family Provider Internal Medicine; PCP Internal Medicine; Referring Provider Nurse Practitioner Acute Care; Visit Provider Nurse Practitioner Acute Care
DX: Z12.2 Encounter for screening for malignant neoplasm of respiratory organs (principal); J44.9 Chronic obstructive pulmonary disease, unspecified; Z87.891 Personal history of nicotine dependence
CPT/HCPCS: G0297

== ENCOUNTER → 2019-08-19 12:53 | Outpatient (CLI) | payer MEDICARE, MEDICAID, SELFPAY ==
[2019-08-18 07:55] VITALS: BMI 23.2
== END ==
PROVIDERS: Family Provider Internal Medicine; PCP Internal Medicine; Referring Provider Nurse Practitioner Acute Care; Visit Provider Nurse Practitioner Acute Care
DX: J44.9 Chronic obstructive pulmonary disease, unspecified (principal)
CPT/HCPCS: 87070; 87077; 87205

== ENCOUNTER 2019-09-17 18:43 | Emergency (ER) | payer MEDICARE, MEDICAID, SELFPAY ==
[2019-08-18 07:55] VITALS: BMI 23.2
[2019-09-17 18:44] VITALS: BP 131/88; PULSE 78; RESP 20; TEMP 36.9; O2SAT 99; BMI 24.6
[2019-09-17 19:15] VITALS: O2SAT 99
--- NOTE | 2019-09-17 19:35 | RAD_ITS ---
STUDY: X-RAY CHEST REASON FOR EXAM: Male, 59 years old. Cough TECHNIQUE: Frontal view of the chest COMPARISON: X-ray chest June 29, 2019 FINDINGS: There is a small right lower lung zone infiltrate. The left lung is clear. There are no pleural effusions. There is no pneumothorax. The heart is normal in size. The visualized osseous structures are within normal limits. Old left rib fractures are present. RAD/Chest 1 View (Portable) IMPRESSION: Small right lower lung infiltrate. Electronically Signed: Bud Potts, at 20:13 EST Tel , Service support ,
--- NOTE | 2019-09-17 19:58 | ED.VISSUMM ---
- ER Visit Summary Date of Service: 09/17/19 Chief Complaint: Cough History of Present Illness: The patient is a 59 M presenting with cough, shortness of breath. This started on Saturday. He has had a nonproductive cough. He denies fever. He has had rhinorrhea. Denies chest pain. He states this morning he was short of breath and used his nebulizer. That improved his symptoms. He continues to have wheezing. He is a previous smoker. Denies other complaints. Physical Examination: Vitals are stable. Patient is afebrile. Alert no acute distress. HEENT exam is unremarkable. Neck is supple. Lungs are wheezing bilaterally. Heart is regular rate and rhythm. Abdomen is soft nontender nondistended. Extremities are unremarkable. Skin is warm and dry. No focal neurologic deficit. Remainder of exam is unremarkable. Emergency Department Course and Treatment: Patient was given albuterol, Atrovent aerosols. Chest x-ray shows small right lower lung infiltrate. On reevaluation, patient states he is feeling improved. Lung sounds are improved. He declines blood work. He declines admission. His ambulatory pulse ox is 94% on room air. He is given prescription for prednisone and doxycycline. He is advised to follow-up with his primary care physician. Advised return to ED for worsening complaints. Disposition: Discharge home Impression: COPD exacerbation, pneumonia This note was generated with [employer] dictation software. It may contain incorrect words, spelling, and punctuation that were not noted in review of the chart prior to signing ED Disposition - Plan for ED Patient: Referrals: Alexey Mayberry MD [Primary Care Provider] -
[2019-09-17 20:22] VITALS: PULSE 88; RESP 20; RESP 22; O2SAT 95
[2019-09-17] MEDS: Ipratropium/Albuterol Sulfate 3 ML AMPUL.NEB INHALATION (20:22)
[2019-09-17] MEDS: Albuterol 2.5 MG/3 ML VIAL.NEB. INHALATION ×3 (20:31→21:14)
--- NOTE | 2019-09-17 20:33 | NURSING ---
pt refuses to have iv started until he talks to . made aware
--- NOTE | 2019-09-17 21:11 | NURSING ---
PT STARTING PO 97 ON RA. PT WALKED THE ORTIZ X1 PO DROP TO 94%
--- NOTE | 2019-09-17 21:14 | ED.DEP ---
ED Disposition - Plan for ED Patient: Instructions: PNEUMONIA (Adult) Prescriptions: Prednisone [Deltasone] 40 mg PO DAILY #10 tablet Doxycycline 100 mg PO BID #20 capsule Referrals: Alexey Mayberry MD [Primary Care Provider] -
[2019-09-17] MEDS: predniSONE 20 MG Tablet 60 MG PO (21:25)
[2019-09-17] MEDS: Doxycycline 100 MG CAPSULE PO (21:25)
[2019-09-17 21:26] VITALS: BP 130/84; PULSE 98; RESP 19; O2SAT 95
--- NOTE | 2019-09-17 21:56 | CPS ---
x3 Albuterol given to pt. as well
== END 2019-09-17 21:28 | disposition home or self-care (01) ==
LOC: ED 19:30
PROVIDERS: Emergency Provider Emergency Medicine; PCP Internal Medicine
DX: J44.1 Chronic obstructive pulmonary disease with (acute) exacerbation (principal); J18.9 Pneumonia, unspecified organism; I25.10 Atherosclerotic heart disease of native coronary artery without angina pectoris; Z79.82 Long term (current) use of aspirin; Z79.02 Long term (current) use of antithrombotics/antiplatelets; Z79.899 Other long term (current) drug therapy; Z87.891 Personal history of nicotine dependence
CPT/HCPCS: 71045; 94640; 99251; 99283; G0463

== ENCOUNTER 2019-10-21 14:57 | Emergency (ER) | payer MEDICARE, MEDICAID, SELFPAY ==
[2019-09-23 10:28] VITALS: BMI 23.9
[2019-10-21 14:58] VITALS: BP 130/82; PULSE 79; RESP 16; TEMP 36.6; O2SAT 98; BMI 24.4
--- NOTE | 2019-10-21 15:00 | RAD_ITS ---
STUDY: X-RAY - LEFT HAND REASON FOR EXAM: Male, 59 years old. Pain since Saturday. TECHNIQUE: view(s) of the hand. COMPARISON: None. FINDINGS: Normal radiocarpal articulation. Normal distal radioulnar joint. Normal visualized carpal bones. Normal carpal articulations Normal carpometacarpal articulation of the thumb. Normal second through fifth carpometacarpal joints. Normal metacarpi. Normal metacarpophalangeal joint of the thumb. Normal interphalangeal joint of the thumb. Normal proximal and distal phalanges of the thumb. Normal metacarpophalangeal joints of the second through fifth fingers. Normal proximal and distal interphalangeal joints of the second through fifth fingers. Normal phalanges of the second through fifth fingers. There is marked soft tissue prominence in the region of the thenar eminence. There is no foreign body. RAD/Hand Min 3 Views IMPRESSION: Soft tissue swelling of the thenar eminence without underlying osseous or articular abnormality. Electronically Signed: Roosevelt Doyle DO at 16:48 EST Tel [phone], Service support ,
--- NOTE | 2019-10-21 15:35 | ED.DCSUM_ITS ---
- ER Visit Summary Date of Service: 10/21/19 Chief Complaint: Left hand pain History of Present Illness: The patient is a 59 M who presents with left hand pain that has been getting worse over the past 4 days. Patient denies any trauma or injury. Patient states the pain is worse over the thenar eminence and over the dorsal aspect of the left hand. Patient states the pain is worse when he tries to grasp things. Patient describes his pain is sharp and aching. Patient denies any paresthesias or weakness. Physical Examination: Vital signs are stable. Patient is afebrile. Patient is in no acute distress. Musculoskeletal exam reveals tenderness over the thenar eminence. There is no edema or ecchymosis. There is no bony crepitance or step-off. Range of motion was slightly limited in all motions of the left thumb secondary to pain. Sensation was intact light touch in all digits. Capillary refill is less than 2 seconds in all digits. Strength is 5/5 in the radial, median, and ulnar areas. Radial pulses are equal bilaterally. Test Results: X-rays of the left hand were obtained. There is no acute fracture or loose body. These were interpreted by the radiologist and reviewed by myself. Emergency Department Course and Treatment: Patient states he has a thumb spica splint at home. Patient was advised to use this. Patient was given a prescription for ibuprofen. Patient was instructed to ice and elevate the left hand. Patient was instructed to follow-up with his primary care physician in 5 to 7 days. Patient understood and was agreeable with the plan. All questions were answered. Disposition: Discharge home Impression: Left hand pain This note was generated with [employer] dictation software. It may contain incorrect words, spelling, and punctuation that were not noted in review of the chart prior to signing ED Disposition - Plan for ED Patient: Disposition: Home or Assisted Living Diagnosis: Left hand pain Instructions: Sprain Hand Prescriptions: Ibuprofen [Motrin] 800 mg PO TID PRN PRN #20 tab PRN Reason: Pain Score 1-10/10 Prescription Printed Referrals: Alexey Mayberry MD [Primary Care Provider] - 5-7 Days
== END 2019-10-21 16:12 | disposition home or self-care (01) ==
LOC: ED 15:51
PROVIDERS: Emergency Provider Emergency Medicine; PCP Internal Medicine
DX: M79.642 Pain in left hand (principal); M54.2 Cervicalgia; M54.9 Dorsalgia, unspecified; G89.29 Other chronic pain; I25.10 Atherosclerotic heart disease of native coronary artery without angina pectoris; J44.9 Chronic obstructive pulmonary disease, unspecified; K21.9 Gastro-esophageal reflux disease without esophagitis; E78.00 Pure hypercholesterolemia, unspecified; Z95.5 Presence of coronary angioplasty implant and graft; Z79.02 Long term (current) use of antithrombotics/antiplatelets; Z79.82 Long term (current) use of aspirin; Z79.899 Other long term (current) drug therapy
CPT/HCPCS: 73130; 99282

== ENCOUNTER 2019-11-10 10:54 | Emergency (ER) | payer MEDICARE, MEDICAID, SELFPAY ==
[2019-11-10] VITALS (11 sets, daily range): BP systolic 105–153; BP diastolic 60–85; PULSE 76–120; RESP 14–27; TEMP 36.6–37.3; O2SAT 91–98; BMI 24.3
--- NOTE | 2019-11-10 11:31 | RAD_ITS ---
STUDY: X-RAY CHEST REASON FOR EXAM: Male, 59 years old. COUGH AND SOB. PATIENT STATES HE HAD RECENT PNEUMONIA AND FEELS LIKE IT AGAIN. TECHNIQUE: Single AP portable view of the chest. COMPARISON: 09/17/2019. FINDINGS: Cardiac silhouette unremarkable. Pulmonary vascularity unremarkable. Aorta slightly calcified. No focal patchy airspace opacities. No pleural effusions. Right basilar atelectasis/scarring. Slightly coarse lung markings. Upper abdomen unremarkable. Healed left rib fractures. Healed left clavicle fracture. Osteopenia. No pneumothorax. RAD/Chest 1 View (Portable) IMPRESSION: No acute cardiopulmonary findings Right basilar atelectasis/scarring Chronic posttraumatic findings, as above Electronically Signed: Dean Lynne DO at 12:15 EDT Tel , Service support ,
--- NOTE | 2019-11-10 11:31 | EKG12_ITS ---
Test Reason : SOB//COUGH Blood Pressure : / mmHG Vent. Rate : 110 BPM Atrial Rate : 110 BPM P-R Int : 112 ms QRS Dur : 076 ms QT Int : 334 ms P-R-T Axes : 062 003 062 degrees QTc Int : 452 ms Sinus tachycardia Low voltage QRS Possible Inferior infarct , age undetermined Abnormal ECG Confirmed by PROSPER RICE, JOSE ([id number]), technical editor RAMÓN ANDRADE ([id number]) on 11/13/2019 11:40:03 AM Referred By: MESHA Confirmed By:GALDINO CHENG MD
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
[2019-11-10] MEDS: Ipratropium/Albuterol Sulfate 3 ML AMPUL.NEB INHALATION (11:48)
[2019-11-10] MEDS: Albuterol 2.5 MG/3 ML VIAL.NEB. INHALATION ×3 (11:48)
[2019-11-10] MEDS: Morphine 2 MG/ML Syringe IV (12:19)
[2019-11-10] MEDS: MethylPREDNISolone 125 MG/2 ML Vial IV (12:19)
[2019-11-10] MEDS: Ketorolac 15 MG/ML Vial IV (12:19)
[2019-11-10] MEDS: Ondansetron 4 MG/2 ML Vial IV (12:19)
[2019-11-10 12:36] LABS: Absolute Lymphocyte Count 0.24 X10^3/uL (0.83-4.51); Absolute Neutrophil Count 9.2 X10^3/uL (2.0-7.7); Basophil# 0.06 X10^3/uL; Basophil% 0.6 % (0-1); Eosinophil# 0.15 X10^3/uL; Eosinophils% 1.4 % (0-5); Hematocrit 42.8 % (40-54); Hemoglobin 13.9 g/dL (13.0-16.5); Lymphocyte # 0.24 X10^3/ul (4.0); Lymphocyte % 2.3 % (19-41); Mean Corp Hgb Conc 32.5 g/dL (32-36); Mean Corpuscular Hgb 29.4 pg (27.0-32.0); Mean Corpuscular Volume 90.5 fL (80-94); Mean Platelet Vol. 9.4 fl (6.2-12.0); Monocyte# 0.73 X10^3/uL; Monocyte% 6.9 % (0-10); NRBC Flagged by Analyzer 0 % (0-5); Neutrophil # 9.24 X10^3/uL (2.7-7.7); Neutrophil % 87.9 % (47-70); POSITIVE DIFFERENTIAL YES; Platelet Count 350 K/mm3 (150-450); RBC Distribution Width SD 46.5 fl (35.1-43.9); Red Blood Count 4.73 M/mm3 (4.6-6.2); White Blood Count 10.5 K/mm3 (4.4-11.0)
[2019-11-10 12:45] LABS: Differential Indicated SCAN CRITERIA MET
[2019-11-10 12:54] LABS: AST(SGOT) 13 U/L (15-37); Alanine Aminotransfer ALT/SGPT 15 U/L (16-61); Albumin, Serum 3.7 g/dL (3.2-5.0); Alkaline Phosphatase 89 U/L (45-117); Anion Gap 6 (5-15); BUN 8 mg/dL (7-18); BUN/Creat Ratio 8.3 RATIO (10-20); Bilirubin, Direct 0.09 mg/dL (0.00-0.30); Calcium,Total 8.6 mg/dL (8.5-10.1); Chloride 106 mmol/L (98-107); Creatinine, Serum 0.97 mg/dL (0.70-1.30); EST Glomerular Filtration Rate 85 mL/min (>60); Est Glom Filt Rate - Afr Amer 103 mL/min (>60); Estimated Creatinine Clearance 80.31 ml/min; Globulin 3.6 g/dL (2.2-4.2); Glucose 107 mg/dL (74-106); Potassium 4.1 mmol/L (3.5-5.1); Protein, Total 7.3 g/dL (6.4-8.2); Sodium Level 138 mmol/L (136-145)
--- NOTE | 2019-11-10 12:59 | CT_ITS ---
STUDY: CTA CHEST REASON FOR EXAM: Male, 59 years old. SOB AND COUGH RADIATION DOSAGE (If Supplied By Facility): CTDIvol = ( 8.85 ) mGy, DLP = ( 331.22 ) mGycm TECHNIQUE: The examination was performed with the intravenous administration of 100 ML ISOVUE 370. Post-processing of the angiographic images was performed, with multiplanar reformation and 3D reconstruction. Individualized dose optimization techniques were used for this CT. COMPARISON: March 21, 2018. FINDINGS: Respiratory motion. HEART: Coronary artery disease. No pericardial effusion. AORTA/GREAT VESSELS: Vascular calcifications. No aneurysm. No dissection. PULMONARY ARTERIES: No acute pulmonary embolism. No hypertension. LUNGS/AIRWAYS: Central airways patent. COPD/emphysema. Mild groundglass airspace disease the left apex (axial image 159 series 2). No lung mass. Right middle lobe atelectasis/scarring. No suspicious lung nodules. PLEURA: No pleural effusion. No pneumothorax. MEDIASTINUM/THYROID: Normal thyroid. Slightly prominent mediastinal lymph nodes measuring up to 1.2 cm (axial images 192 141 series 2). No pneumomediastinum. SOFT TISSUES: No acute process. OSSEOUS STRUCTURES: Degenerative changes. No acute process. UPPER ABDOMEN/ESOPHAGUS: Small hiatal hernia. Hepatic steatosis. CT/CTA Chest W/WO Contrast IMPRESSION: No acute pulmonary embolism, aortic aneurysm or dissection Minimal groundglass airspace disease (edema versus less likely infection) Right middle lobe atelectasis/scarring with COPD/emphysema Nonspecific slightly enlarged mediastinal lymph nodes (inflammatory/reactive) Cardiovascular disease, as above Electronically Signed: Dean Lynne DO at 13:54 EDT Tel , Service support ,
[2019-11-10 13:02] LABS: Differential Comment SCANNED
--- NOTE | 2019-11-10 16:00 | ED.RN ---
REVIEWED D/C INSTRUCTIONS, FOLLOW UP CARE, PRESCRIPTIONS, AND S/S THAT WOULD WARRANT A RETURN TO THE ED WITH PT. PT VERBALIZED AN UNDERSTANDING AND DENIES FURTHER QUESTIONS FOR THIS RN. PT SKIN P/W/D, RESP EVEN AND UNLABORED, PT A&O X 3, NO DISTRESS NOTED. PT AMBULATED OUT OF ED, GAIT STEADY.
== END 2019-11-10 16:01 | disposition home or self-care (01) ==
PROVIDERS: Emergency Provider Emergency Medicine; PCP Internal Medicine
DX: S20.219A Contusion of unspecified front wall of thorax, initial encounter (principal); W17.89XA Other fall from one level to another, initial encounter; Y93.54 Activity, bowling; Y92.39 Other specified sports and athletic area as the place of occurrence of the external cause; Y99.8 Other external cause status; J44.1 Chronic obstructive pulmonary disease with (acute) exacerbation; J96.10 Chronic respiratory failure, unspecified whether with hypoxia or hypercapnia; Z86.711 Personal history of pulmonary embolism; Z87.891 Personal history of nicotine dependence; Z88.6 Allergy status to analgesic agent; Z91.040 Latex allergy status; Z82.49 Family history of ischemic heart disease and other diseases of the circulatory system
CPT/HCPCS: 71045; 71275; 80048; 80076; 84484; 85025; 87040; 93005; 94640; 96374; 96375; 99251; 99284; J7030; Q9967; A4216; G0463; J2405

== ENCOUNTER → 2019-12-21 15:09 | Outpatient (CLI) | payer MEDICARE, MEDICAID, SELFPAY ==
[2019-12-21 11:27] VITALS: BMI 24.3
[2019-12-21 16:09] LABS: Absolute Neutrophil Count 2.8 X10^3/uL (2.0-7.7); Basophil# 0.06 X10^3/uL; Eosinophil# 0.78 X10^3/uL; Eosinophils% 12.9 % (0-5); Hematocrit 40.7 % (40-54); Hemoglobin 13.2 g/dL (13.0-16.5); Lymphocyte % 26.4 % (19-41); Mean Corp Hgb Conc 32.4 g/dL (32-36); Mean Corpuscular Hgb 29.2 pg (27.0-32.0); Mean Platelet Vol. 9.7 fl (6.2-12.0); Monocyte# 0.75 X10^3/uL; Monocyte% 12.4 % (0-10); NRBC Flagged by Analyzer 0 % (0-5); Neutrophil # 2.84 X10^3/uL (2.7-7.7); Neutrophil % 46.6 % (47-70); Platelet Count 270 K/mm3 (150-450); RBC Distribution Width CV 14.1 % (11.6-14.6); RBC Distribution Width SD 46.7 fl (35.1-43.9); Red Blood Count 4.52 M/mm3 (4.6-6.2); White Blood Count 6.1 K/mm3 (4.4-11.0)
[2019-12-24 20:07] LABS: Alternaria alternata 0.19 kU/L (Class 0/I); Bermuda Grass <0.10 kU/L (Class 0); Bluegrass, Kentucky <0.10 kU/L (Class 0); Cat Hair/Dander, Standard <0.10 kU/L (Class 0); D farinae Mite 2.26 kU/L (Class III); D pteronyssinus 3.15 kU/L (Class III); Dog Epithelia 0.15 kU/L (Class 0/I); Elm, American White <0.10 kU/L (Class 0); Plantain, English 0.15 kU/L (Class 0/I); Ragweed, Short/Common 0.74 kU/L (Class II)
[2019-12-25 01:19] LABS: Mouse Urine 0.11 kU/L (Class 0/I)
[2019-12-25 20:06] LABS: Aspirgillus flavus Negative (Neg:<1:1); Aspirgillus fumigatus Negative (Neg:<1:1); Aspirgillus niger Negative (Neg:<1:1)
[2019-12-26 00:52] LABS: Immunoglobulin E 4763 IU/mL (6-495)
== END ==
PROVIDERS: PCP Internal Medicine; Referring Provider Nurse Practitioner Acute Care; Visit Provider Nurse Practitioner Acute Care
DX: J44.9 Chronic obstructive pulmonary disease, unspecified (principal); M35.1 Other overlap syndromes
CPT/HCPCS: 36415; 82785; 85025; 86003; 86606

== ENCOUNTER 2020-03-04 20:54 | Emergency (ER) | payer MEDICARE, MEDICAID, SELFPAY ==
[2020-01-19 13:45] VITALS: BMI 24.3
[2020-03-04 20:55] VITALS: BP 130/77; PULSE 123; RESP 24; TEMP 36.6; O2SAT 88; BMI 24.3
[2020-03-04 21:07] VITALS: O2SAT 92
--- NOTE | 2020-03-04 21:26 | EKG12_ITS ---
Test Reason : SOB Blood Pressure : / mmHG Vent. Rate : 106 BPM Atrial Rate : 106 BPM P-R Int : 118 ms QRS Dur : 074 ms QT Int : 328 ms P-R-T Axes : 078 039 064 degrees QTc Int : 435 ms Sinus tachycardia Otherwise normal ECG Confirmed by DEJA DEAN ([id number]), editorial project manager MARI LAWSON ([id number]) on 03/07/2020 2:11:19 PM Referred By: ADAM Confirmed By:DEJA DEAN
[2020-03-04 21:36] VITALS: PULSE 113; RESP 18
[2020-03-04] MEDS: Ipratropium/Albuterol Sulfate 3 ML AMPUL.NEB INHALATION (21:36)
--- NOTE | 2020-03-04 21:50 | RAD_ITS ---
STUDY: X-RAY CHEST REASON FOR EXAM: Male, 59 years old. SOB. HX OF COPD TECHNIQUE: AP portable COMPARISON: November 10, 2019 FINDINGS: Chronic interstitial and emphysematous changes are observed. There appears to be asymmetrically diffusely increased density peripherally in the lower lobes greater on the left raising question of atypical viral pneumonia.. There is no demonstrated pleural abnormality. Normal size heart. Normal mediastinum and winnie. Normal visualized pulmonary arteries. Normal visualized aortic arch and descending thoracic aorta. Dorsal spine demonstrates degenerative change. Normal visualized clavicles, and shoulders. Multiple old healed left rib fractures. There is no demonstrated abnormality of the visualized soft tissue structures of the upper abdomen. RAD/Chest 1 View (Portable) IMPRESSION: Chronic interstitial and emphysematous changes. Cannot exclude coexisting Covid 19 pneumonia in the lower lobes greater on the left. Clinical correlation recommended Electronically Signed: Bud Siddiqui MD at 22:13 EDT , Service support ,
--- NOTE | 2020-03-04 22:35 | ED.DCSUM_ITS ---
- ER Visit Summary Date of Service: 03/04/20 Chief Complaint: Shortness of breath History of Present Illness: The patient is a 59 M who presents with shortness of breath that began today. Patient states he has a history of COPD and states this feels similar to prior COPD exacerbations. Patient states his breathing is worse when he is out in the heat. Patient states his albuterol has been helping. Patient states he is almost out of his pro-air inhaler. Patient admits to a cough with some green and yellow sputum. Patient denies any fevers or chills. Patient denies any chest pain. Patient denies any nausea or vomiting. Patient denies any COVID exposures. Physical Examination: Vital signs are stable for mild tachycardia of 123 and a mild tachypnea of 24. Patient is afebrile. Patient is in no acute distress. Oral mucosa is pink and moist. Neck is supple. Trachea is midline. There is no JVD. Heart was regular rate and rhythm. Lungs showed diffuse wheezing. There is good respiratory effort noted. Abdomen is soft. Bowel sounds are normal. There is no tenderness. Cranial nerves II through XII are intact. There are no focal motor or sensory deficits noted. Remedies are intact. There is no calf tenderness or edema. Test Results: Portable chest x-ray was obtained. There is no acute cardiopulmonary process. This was interpreted by myself and the radiologist. EKG showed sinus tachycardia with a rate of 106. There are no acute ST or T wave changes. Emergency Department Course and Treatment: Patient was given a DuoNeb aerosol here. Patient was given a dose of prednisone. Patient was placed on oxygen. Patient felt better on reevaluation. Patient states his wheezing has improved. Patient was given a prescription for prednisone as well as a prescription for a refill of his inhaler. Patient was instructed to follow-up with his primary care physician in 5 to 7 days. Patient understood and was agreeable with the plan. All questions were answered. Disposition: Discharge home Impression: COPD exacerbation This note was generated with [employer] dictation software. It may contain incorrect words, spelling, and punctuation that were not noted in review of the chart prior to signing ED Disposition - Plan for ED Patient: Disposition: Home or Assisted Living Diagnosis: COPD (chronic obstructive pulmonary disease) Instructions: ED COPD Flare Prescriptions: Prednisone [Deltasone] 60 mg PO DAILY #15 tab Transmission Status: Received by [facility]/pharmacy #[id number] Albuterol Inhaler [Ventolin Hfa] 2 puff INHALATION Q4H PRN PRN #1 inhaler PRN Reason: Wheezing Transmission Status: Received by [facility]/pharmacy #[id number] Referrals: Alexey Mayberry MD [Primary Care Provider] - 5-7 Days
[2020-03-04] MEDS: predniSONE 20 MG Tablet 60 MG PO (22:59)
== END 2020-03-04 23:01 | disposition home or self-care (01) ==
PROVIDERS: Emergency Provider Emergency Medicine; PCP Internal Medicine
DX: J44.1 Chronic obstructive pulmonary disease with (acute) exacerbation (principal); R00.0 Tachycardia, unspecified; I25.10 Atherosclerotic heart disease of native coronary artery without angina pectoris; Z72.0 Tobacco use
CPT/HCPCS: 71045; 93005; 94640; 99285; A4216

== ENCOUNTER → 2020-04-05 06:04 | Outpatient (CLI) | payer MEDICARE, MEDICAID, SELFPAY ==
[2020-03-23 11:43] VITALS: BMI 24.3
--- NOTE | 2020-04-05 07:45 | STRESSREP_ITS ---
Stress Test Report Date: 04-05-2020 Procedure: Exercise tolerance test/imaging study Indications: Breath/dyspnea on exertion; CAD; PCI Consent: Per the patient Procedure: The patient exercised on a protocol for 9 minutes and 30 seconds completing Stage III with an additional 30 seconds of Stage III achieving a peak heart rate of 130 bpm (80 % predicted maximal heart rate) with a peak blood pressure 112/72 mmHg and a peak MET capacity of 10 METs. The baseline ECG demonstrated normal sinus rhythm. The peak exercise ECG demonstrated somatic/motion artifact with no obvious ECG changes at the heart rate achieved. There was a rare PVC during exercise and recovery. Blood pressure response: Normal resting blood pressure-blunted response. The functional capacity was considered good. There was no complaint of chest discomfort during exercise or recovery. The examination was discontinued secondary to dyspnea and leg discomfort. Impression: 1. Technically adequate (percent predicted maximal heart rate greater than 85%) exercise tolerance test 2. Peak exercise ECG with somatic/motion artifact with no obvious ECG changes at the heart rate achieved 3. There was a rare PVC during exercise and recovery 4. Nuclear images pending Myocardial perfusion imaging study: Technique: The patient was injected with 11.7 mCi of technetium 99m Cardiolite and subsequently rest SPECT Cardiolite nuclear imaging was obtained in the horizontal long, vertical long, and short axis views. The patient exercised on a protocol for 9 minutes and 30 seconds completing Stage III with an additional 30 seconds of Stage III achieving a peak heart rate of 130 bpm (80 % predicted maximal heart rate) with a peak blood pressure 112/72 mmHg and a peak MET capacity of 10 METs. The patient was injected with 30.3 mCi of technetium 99m Cardiolite and subsequently stress SPECT Cardiolite nuclear imaging was obtained in the horizontal long, vertical long, and short axis views. A gated Cardiolite study at peak stress was obtained. Interpretation: Rest and stress SPECT Cardiolite nuclear imaging status post realignment, normalization, and attenuation correction, demonstrates the appearance of body motion during image acquisition and otherwise relative uniform tracer uptake and myocardial perfusion appearing within normal limits. There is end systolic thickening and brightening. The gated Cardiolite study demonstrates myocardial thickening and inward wall motion. The reported LVEF is 64 %. Impression: 1. Rest and stress SPECT Cardiolite nuclear imaging demonstrate the appearance of body motion during image acquisition and otherwise relative uniform tracer uptake and myocardial perfusion appearing within normal limits. 2. The gated Cardiolite study reports an LVEF of 64 %. This note was generated with [employer] software. It may contain incorrect words, spelling, and punctuation that were not noted in checking the note before signing.
== END ==
PROVIDERS: PCP Internal Medicine; Referring Provider Nurse Practitioner Family; Visit Provider Nurse Practitioner Family
DX: I25.10 Atherosclerotic heart disease of native coronary artery without angina pectoris (principal); I25.5 Ischemic cardiomyopathy; E78.5 Hyperlipidemia, unspecified; Z95.5 Presence of coronary angioplasty implant and graft
CPT/HCPCS: 78452; 93017; A9500; A4216

== ENCOUNTER → 2020-04-27 13:39 | Outpatient (CLI) | payer MEDICARE, MEDICAID, SELFPAY ==
[2020-04-26 14:07] VITALS: BMI 23.2
== END ==
PROVIDERS: PCP Internal Medicine; Referring Provider Nurse Practitioner Acute Care; Visit Provider Nurse Practitioner Acute Care
DX: J47.9 Bronchiectasis, uncomplicated (principal)
CPT/HCPCS: 87070; 87205; 94667

== ENCOUNTER → 2020-08-09 20:20 | Outpatient (CLI) | payer MEDICARE, SELFPAY ==
[2020-07-27 10:44] VITALS: BMI 23.8
== END ==
PROVIDERS: PCP Internal Medicine; Visit Provider Internal Medicine Critical Care Medicine
DX: G47.10 Hypersomnia, unspecified (principal)

== ENCOUNTER 2020-08-09 22:23 | Emergency (ER) | payer MEDICARE, SELFPAY ==
[2020-07-27 10:44] VITALS: BMI 23.8
[2020-08-09 22:24] VITALS: BP 137/87; PULSE 78; RESP 16; TEMP 36.4; O2SAT 99; BMI 23.1
[2020-08-09 22:39] VITALS: O2SAT 96
--- NOTE | 2020-08-09 22:43 | EKG12_ITS ---
Test Reason : DYSRHYTHMIA Blood Pressure : / mmHG Vent. Rate : 078 BPM Atrial Rate : 078 BPM P-R Int : 118 ms QRS Dur : 078 ms QT Int : 374 ms P-R-T Axes : 072 -16 037 degrees QTc Int : 426 ms Normal sinus rhythm Low voltage QRS Inferior infarct , age undetermined Abnormal ECG Confirmed by PROSPER RICE, JOSE ([id number]), newspaper editor managing MARI LAWSON ([id number]) on 08/12/2020 8:52:55 A M Referred By: MARIA ALEJANDRA Confirmed By:GALDINO CHENG MD
--- NOTE | 2020-08-09 22:51 | ED.VIS.GEN ---
History of Present Illness Chief Complaint: Shortness of Breath Informant: Patient Narrative: Patient stated that he is having a COPD flareup. He stated that tonight he was the sleep lab and trying to sleep and felt wheezing and increased short of breath. He has a history of chronic COPD and still does cigarettes. Last prednisone was 2 weeks ago for COPD exacerbation. Is not on home oxygen. He does nebulizer treatments at home and did not do one tonight and thinks that may be contributing. He did inhale some kerosene from her garage at his brother's house earlier today and thinks that might cause some bronchospasm as well. Denies any coronavirus exposures fevers or chills or coronavirus symptoms. He denies any new cough. His main concern is his wheezing. - Past Medical History (1) Acute on chronic respiratory failure with hypoxemia Status: Acute (2) Bronchiectasis Status: Acute (3) COPD (chronic obstructive pulmonary disease) Status: Acute (4) Dizziness Status: Acute (5) Hypersomnia Status: Acute (6) Hypoxemia Status: Acute (7) Premature ventricular contraction Status: Acute (8) Asthma-COPD overlap syndrome Status: Chronic Comment: FEV1 67% (9) Atherosclerotic heart disease of [place] coronary artery without angina pectoris Status: Chronic Comment: PTCA and stenting RCA 06/27/2008 at [facility]; (10) BPH (benign prostatic hyperplasia) Status: Chronic (11) COPD exacerbation Status: Chronic (12) H/O percutaneous transluminal coronary angioplasty Status: Chronic Comment: PTCA and stenting RCA 06/27/2008 at [facility]; (13) HLD (hyperlipidemia) Status: Chronic (14) History of pulmonary embolism Status: Chronic (15) Ischemic cardiomyopathy Status: Chronic (16) Nicotine abuse Status: Chronic Comment: [id number] smoking history annual LDCT due 08/2020 (17) Old myocardial infarction Status: Chronic (18) Paroxysmal atrial tachycardia Status: Chronic (19) Paroxysmal ventricular tachycardia Status: Chronic (20) Presence of stent in coronary artery Status: Chronic Comment: PTCA and stenting RCA 06/27/2008 at [facility]; (21) Stage 2 moderate COPD by GOLD classification Status: Chronic Comment: FEV1 67% (22) Candidiasis of mouth Status: Resolved (23) Acute respiratory failure Status: Inactive (24) Dyspepsia and disorder of function of stomach Status: Inactive (25) HCAP (healthcare-associated pneumonia) Status: Inactive (26) Near syncope Status: Inactive Past Medical History - Allergies and Home Meds Allergies/Adverse Reactions: Allergies latex Allergy (Verified 08/09/20 22:26) Rash varenicline tartrate [From Chantix] Allergy (Verified 08/09/20 22:26) Hives aspirin Adverse Reaction (Verified 08/09/20 22:26) Upset Stomach Primary Care Physician: Alexey Mayberry MD [Primary Care Provider] - Prior records reviewed: Yes Past Medical History: - - See problem list Surgical History: angioplasty, - - PCI x1, left total hip replacement, hernia repair. Lives: With Family Smoking Status: Current every day smoker Alcohol: None Drugs: None - Family History Maternal Family History: Family History (Last Reviewed 07/27/20 @ 10:52 by Minda Lowery) Father CAD (coronary artery disease) Heart disease Myocardial infarction Mother Diabetes Brother Hypertension Family History: Reports: Diabetes Paternal Family History: Family History (Last Reviewed 07/27/20 @ 10:52 by Minda Lowery) Father CAD (coronary artery disease) Heart disease Myocardial infarction Mother Diabetes Brother Hypertension Family History: Reports: High Cholesterol, Heart Disease, Hypertension Review of Systems General: Denies: Chills, Fever, Sweats Eyes: Denies: Visual changes - bilaterally, Diplopia ENT: Denies: Rhinorrhea, Sore throat Cardiovascular: Denies: Chest pain, Palpitations Respiratory: Reports: Dyspnea. Denies: Cough, Dyspnea on exertion Gastrointestinal: Denies: Abdominal pain, Nausea, Vomiting, Diarrhea, Melena, Hematochezia Genitourinary: Denies: Dysuria, Hematuria, Frequency Musculoskeletal: Denies: Back pain, Extremity Pain Skin: Denies: Rash, Wounds Neurological: Denies: Headache, Weakness, Numbness Physical Exam Vital Signs/Narrative: Vital Signs Temp Pulse Resp BP Pulse Ox 08/09/20 22:39 96 08/09/20 22:24 97.6 F L 78 16 137/87 H 99 General: Well nourished, Well developed, No Acute Distress Head: Normocephalic, Atraumatic Eyes: Perrl, EOMI ENT: Moist mucous membranes, No rhinorrhea Neck: Supple, Nontender Cardiovascular: Regular rate, Regular rhythm, No murmurs Respiratory: Chest nontender, Wheezing - Diffuse expiratory wheezes throughout all lung noe. Speaking full sentences and appears comfortable. Negative for: Rales, Rhonchi Abdomen: Soft, Nontender, Nondistended, Normal bowel sounds Back: Nontender, Normal Inspection Extremities: Nontender, No edema Skin: Normal color, No rash Neurological: Alert, Oriented x3, Cranial nerves II-XII grossly intact, Normal Strength, Normal Sensation Psychological: Normal affect, Normal Mood Diagnostic/Tx/Re-eval - Medical Decision Making Patient given stacked breathing treatments and DuoNeb followed by albuterol nebulizer x2. Given oral prednisone. EKG showed sinus rhythm at a rate of 78 with no acute ischemia or arrhythmia. Chest x-ray obtained. My interpretation of the chest x-ray shows chronic COPD changes. Mild interstitial changes. Nothing to suggest coronavirus or pneumonia. On reevaluation patient feels much better resting comfortably back to baseline. I feel this is more wheezing related. Do not think he has infection that would warrant antibiotics. Discharged with prednisone burst and will continue his breathing treatments at home. ED Disposition - Plan for ED Patient: Disposition: Home or Assisted Living Diagnosis: COPD exacerbation Instructions: ED COPD Flare Prescriptions: Prednisone [Deltasone] 60 mg PO DAILY #15 tab Transmission Status: Pending to [id number] Referrals: Alexey Mayberry MD [Primary Care Provider] -
[2020-08-09] MEDS: predniSONE 20 MG Tablet 60 MG PO (22:52)
[2020-08-09 23:01] VITALS: PULSE 88; RESP 18; RESP 20; O2SAT 96
[2020-08-09] MEDS: Ipratropium/Albuterol Sulfate 3 ML AMPUL.NEB INHALATION (23:01)
[2020-08-09] MEDS: Albuterol 2.5 MG/3 ML VIAL.NEB. INHALATION ×3 (23:01)
--- NOTE | 2020-08-09 23:12 | ED.RN ---
NO OLD EKGS IN MUSE
--- NOTE | 2020-08-09 23:19 | CPS ---
x3 Albuterol given to pt. in ED as well
--- NOTE | 2020-08-09 23:25 | RAD_ITS ---
STUDY: X-RAY CHEST REASON FOR EXAM: Male, 59 years old. sob -- hx of copd TECHNIQUE: Single AP portable view of the chest. COMPARISON: 03/04/2020. Portable chest x-ray and CT chest 11/10/2019. FINDINGS: There is hyperinflation of the lungs consistent with chronic obstructive lung disease (COPD). There is no focal parenchymal abnormality. Mild interstitial prominence/haziness in the left mid and lower lung parenchyma seen to similar degree on 03/2020, not 11/2019 . There is no demonstrated pleural abnormality. Normal size heart. Normal mediastinum and winnie. Normal visualized pulmonary arteries. Normal visualized aortic arch and descending thoracic aorta. Normal visualized thoracic spine. Stable left chest wall and clavicular deformity There is no demonstrated abnormality of the visualized soft tissue structures of the upper abdomen. RAD/Chest 1 View (Portable) IMPRESSION: COPD/emphysema with stable remote left hemithoracic injury. Minimal interstitial prominence in the left mid and lower lung parenchyma, seen to a similar degree on most recent examination, not 11/2019 which may be due to a mild inflammatory process. No pulmonary edema, congestive heart failure or confluent pneumonia. Electronically Signed: Marycarmen Braden MD at 23:59 EST , Service support ,
[2020-08-10 00:35] VITALS: O2SAT 96
== END 2020-08-10 00:35 | disposition home or self-care (01) ==
PROVIDERS: Emergency Provider Emergency Medicine; PCP Internal Medicine
DX: J44.1 Chronic obstructive pulmonary disease with (acute) exacerbation (principal); E78.5 Hyperlipidemia, unspecified; I25.10 Atherosclerotic heart disease of native coronary artery without angina pectoris; I25.5 Ischemic cardiomyopathy; N40.0 Benign prostatic hyperplasia without lower urinary tract symptoms; I25.2 Old myocardial infarction; F17.200 Nicotine dependence, unspecified, uncomplicated; Z82.49 Family history of ischemic heart disease and other diseases of the circulatory system; Z86.711 Personal history of pulmonary embolism; Z88.6 Allergy status to analgesic agent; Z95.5 Presence of coronary angioplasty implant and graft; Z91.040 Latex allergy status
CPT/HCPCS: 71045; 93005; 94640; 99251; 99283; G0463

== ENCOUNTER → 2020-11-03 14:28 | Outpatient (CLI) | payer MEDICARE, MEDICAID, SELFPAY ==
[2020-10-25 09:52] VITALS: BMI 23.1
--- NOTE | 2020-11-03 14:31 | CT_ITS ---
STUDY: LOW DOSE CT LUNG CANCER SCREENING REASON FOR EXAM: Male, 60 years old. smoker and gt; 40 pack years RADIATION DOSAGE (If Supplied By Facility): CTDIvol = ( 2.01 ) mGy, DLP = ( 73.49 ) mGycm TECHNIQUE: No contrast was administered. Low dose technique was utilized (average mAS-38 and kVp 120). 1.25 mm axial source images with a slice interval of 1.25-mm were reconstructed in lung windows. 2.5 mm axial source images with a slice interval of 2.5-mm were reconstructed in lung windows. 5.0 mm axial source images with a slice interval of 5.0-mm were reconstructed in soft tissue windows. Nodule measured using lung windows on PACS and/or independent workstation with automated measurement of minimum and maximum diameter. Nodule measurement reported as average diameter rounded to the nearest whole number. Growth is defined as an increase ins size of greater than 1.5 mm. COMPARISON: Comparison is made with prior study dated 05/14/2019. NODULES: The previously seen infiltration and volume loss in the right middle lobe has markedly improved. There is a residual 1.2 cm x 1.6 cm nodular density along the medial aspect of the right middle lobe. This most likely represents a focal area of scarring. Emphysema: Hyperinflation. Emphysematous changes with centrilobular changes in the upper lobes. Endobronchial lesion: None Aorta: Atherosclerotic plaque of the aortic arch. Coronary arteries: Coronary artery calcification. Pulmonary artery: Unremarkable Mediastinal nodes: Small benign-appearing mediastinal lymph nodes. Other chest and abdominal findings: CT/Low Dose CT Lung Screening IMPRESSION: Lung-RADS category 2 - Continue annual screening with LDCT in 12 months. IMPORTANT NOTES FOR USE: ACR Lung-RADS Version 1.0 Assessment Categories Release Date: December 28, 2013 Category: Coded 0-4 bases on nodule(s) with highest degree of suspicion. Negative screen is defined as categories 1 and 2; a positive screen is defined as categories 3 and 4. Category 3 and 4A nodules that are unchanged on interval CT should be coded as category 2, and individuals returned to screening in 12 months. Category 4X: Category 3 or 4 nodules with additional imaging findings that increase the suspicion of lung cancer, such as spiculation, GGN that doubles in size in 1 year, enlarged lymph notes, etc. Category Modifiers: S (significant finding unrelated to lung cancer) and C (prior history of treated lung cancer) may be added to the 0-4 Lung-RADS Electronically Signed: Gerardo Ruby MD at 15:07 EST , Service support ,
== END ==
PROVIDERS: PCP Internal Medicine; Referring Provider Nurse Practitioner Acute Care; Visit Provider Nurse Practitioner Acute Care
DX: Z12.2 Encounter for screening for malignant neoplasm of respiratory organs (principal); F17.210 Nicotine dependence, cigarettes, uncomplicated
CPT/HCPCS: 71271

== ENCOUNTER 2021-01-26 20:27 | Emergency (ER) | payer MEDICARE, MEDICAID, SELFPAY ==
[2021-01-26 20:28] VITALS: BP 123/67; PULSE 89; RESP 16; TEMP 36.9; O2SAT 97; BMI 22.8
--- NOTE | 2021-01-26 21:07 | RAD_ITS ---
STUDY: X-RAY - RIGHT WRIST REASON FOR EXAM: Male, 60 years old. chronic right wrist pain. NKI TECHNIQUE: 3 view(s) of the wrist were obtained. COMPARISON: Right hand x-ray dated April 07, 2018 FINDINGS: Normal visualized distal radius and ulna. Normal radiocarpal articulation. Normal distal radioulnar articulation. Normal carpal bones. Normal carpal articulations. Normal carpometacarpal articulation of the thumb. Normal second through fifth carpometacarpal articulations. Normal visualized metacarpal bones. The soft tissue structures are unremarkable. There is no demonstrated acute fracture. RAD/Wrist min 3 Views IMPRESSION: Normal x-ray examination of the wrist. Electronically Signed: Les Infante MD at 21:55 EDT , Service support ,
--- NOTE | 2021-01-26 22:10 | EX.ED.UPPERE ---
HPI History of Present Illness Chief Complaint: Upper Extremity Injury Informant: patient Onset/Context/Timing Onset: Days Context: Gradual Onset Timing: Continuous Current Severity: Moderate Worsened by: None Relieved by: None Narrative Narrative: Patient has right wrist pain. Denies trauma. Denies redness or swelling. Denies any history of gout or infected joint. Denies any history of surgery to the area. Denies weakness or numbness. Prior similar symptoms: No PFSH PFSH Medical History Atherosclerotic heart disease of [place] coronary artery without angina pectoris BPH (benign prostatic hyperplasia) CAD (coronary artery disease) COPD (chronic obstructive pulmonary disease) HLD (hyperlipidemia) Ischemic cardiomyopathy Old myocardial infarction Paroxysmal atrial tachycardia Paroxysmal ventricular tachycardia Premature ventricular contraction Presence of stent in coronary artery (~06/27/08) Septic shock Home Medications clopidogrel 75 mg PO QHS 06/16/13 [History Last Taken 05/13/19 20:00 75 mg] cholecalciferol (vitamin D3) 2,000 units PO QHS 03/25/16 [History Last Taken 05/13/19] omeprazole 40 mg PO DAILY 05/13/17 [History Last Taken 05/13/19 08:00] aspirin 81 mg PO DAILY@0800 06/20/17 [History Last Taken 05/13/19 08:00] cyanocobalamin (vitamin B-12) 1,000 mcg tablet 1,000 mcg PO QHS 10/15/17 [History Last Taken 05/13/19 20:00 1000 mcg] cetirizine 10 mg PO QHS 12/14/17 [History Last Taken 05/13/19 10 mg] mometasone-formoterol 2 puff IH BID 06/30/18 [History Last Taken 05/13/19 04:00] levocetirizine 5 mg tablet 5 mg PO DAILY 09/23/19 [History Last Taken Unknown] trazodone 50 mg tablet 75 mg PO QHS tab 09/23/19 [History Last Taken Unknown] montelukast 10 mg tablet 10 mg PO QPM #30 tab 12/31/19 [Rx Last Taken Unknown] atorvastatin 20 mg tablet 20 mg PO DAILY #90 tab 01/04/20 [Rx Last Taken Unknown] dextromethorphan-guaifenesin ER 60 mg-1,200 mg tab,extend release,12hr 1 tab PO Q12H #60 tab 02/16/20 [Rx Last Taken Unknown] PEP device #1 ea 04/27/20 [Rx Last Taken Unknown] Fasenra 30 mg/mL subcutaneous syringe 30 mg SC Q4W 0 Days #1 ml NS 05/05/20 [Rx Last Taken Unknown] albuterol sulfate 90 mcg/actuation aerosol inhaler 2 puff INHALATION Q2H PRN #18 g 06/23/20 [Rx Last Taken Unknown] naproxen 500 mg PO BID #14 tab 01/26/21 [Rx Last Taken Unknown] Allergy/AdvReac Type Severity Reaction Status Date / Time latex Allergy Rash Verified 01/26/21 20:29 varenicline tartrate Allergy Hives Verified 01/26/21 20:29 [From Chantix] aspirin AdvReac Upset Verified 01/26/21 20:29 Stomach Family History Father , age 50 CAD (coronary artery disease) Heart disease Myocardial infarction Mother Diabetes Brother Hypertension Surgical History History of hernia repair History of left hip replacement Presence of coronary angioplasty implant and graft (~06/27/08) Social History Smoking Status: Current every day smoker tobacco type: cigarettes alcohol intake: never substance use type: does not use caffeine: Yes Type: coffee Number of servings: 3 what type of physical activity do you participate in: walking frequency: daily duration: 45-60 minutes/day seatbelt use: always do you feel safe at home: Yes ROS ROS ED Constitutional Constitutional ED: Denies frequent falls Eyes Eyes: Denies change in vision ENT ENT ED: Denies ear pain Cardiovascular Cardiovascular: Denies chest pain Respiratory/Chest Respiratory/Chest: Denies dyspnea Gastrointestinal Gastrointestinal: Denies abdominal pain Musculoskeletal Musculoskeletal: Denies back pain, myalgias or neck pain Integumentary Denies abscess or rash Neurologic Neurologic: Denies headache(s), paresthesias or weakness Psychiatric Psychiatric: Denies depression Endocrine Endocrinology: Denies polyuria Hematologic/Lymphatic Hematologic/Lymphatic: Denies easy bruising Allergic/Immunologic Allergic/Immunologic ED: Denies urticaria EXAM Physical Exam Const Vital Signs: 01/26/21 20:28 Temperature 98.5 F Temperature Source Temporal Pulse Rate 89 Respiratory Rate 16 Blood Pressure 123/67 H Blood Pressure Mean 85 Pulse Ox 97 Oxygen Delivery Method Room Air Positive well nourished and well developed General Appearance ED: well developed HEENT normocephalic and atraumatic Eyes EOMs intact bilaterally Neck supple Resp normal respiratory effort Cardio regular rate Extremity normal to inspection and full ROM Extremity Narrative: Normal inspection. Range of motion intact. Tenderness over the distal radius and ulna. No edema, erythema, warmth. Good strength and sensation distally. Good capillary refill and pulses. Neuro oriented x3 Sensorium / Orientation: alert Psych mental status grossly normal Skin Lesions: no lesions Rashes: no rashes MDM MDM MDM Narrative Medical decision making narrative: X-rays performed. I reviewed the patient's x-rays and they were normal. He is neurovascularly intact. I suspect this is a myofascial pain, possible tendinitis. He was treated with anti-inflammatories and a splint. Outpatient follow-up. Return if worse. Radiography Diagnostic Testing: Radiology Impression Wrist X-Ray 01/26/21 21:07 IMPRESSION: Normal x-ray examination of the wrist. Electronically Signed: Les Infante MD at 21:55 EDT , Service support , Discharge Plan Triage Chief Complaint: Upper Extremity Injury ED Provider: Kamran Delgado Dx/Rx/DC Orders Clinical Impression: Acute pain of right wrist Instructions: ED Arthralgia Prescriptions: New naproxen 500 mg tablet 500 mg PO BID Qty: 14 RF: 0 No Action cyanocobalamin (vitamin B-12) 1,000 mcg tablet 1,000 mcg PO QHS RF: 0 levocetirizine 5 mg tablet 5 mg PO DAILY RF: 0 trazodone 50 mg tablet 75 mg PO QHS RF: 0 (DME) PEP device See Rx Instructions .ROUTE .MEDSUPPLY Qty: 1 RF: 0 clopidogrel 75 MG tablet 75 mg PO QHS RF: 0 cholecalciferol (vitamin D3) 1,000 UNIT tablet 2,000 units PO QHS RF: 0 omeprazole 20 MG capsule 40 mg PO DAILY RF: 0 aspirin 81 MG tablet,chewable 81 mg PO DAILY@0800 RF: 0 cetirizine 10 MG capsule 10 mg PO QHS RF: 0 mometasone-formoterol 8.8 GM HFA aerosol inhaler 2 puff IH BID RF: 0 montelukast 10 mg tablet 10 mg PO QPM Qty: 30 RF: 3 atorvastatin 20 mg tablet 20 mg PO DAILY Qty: 90 RF: 3 dextromethorphan-guaifenesin 60-1,200 mg tablet extended release 12 hr 1 tab PO Q12H Qty: 60 RF: 1 Fasenra 30 mg/mL syringe 30 mg SC Q4W 0 Days Qty: 1 RF: 3 albuterol sulfate 90 mcg/actuation HFA aerosol inhaler 2 puff INHALATION Q2H PRN (Reason: Asthma) Qty: 18 RF: 6 Primary Care Provider: Alexey Mayberry Referrals: Alexey Mayberry MD [Primary Care Provider] - Disposition Disposition: Home, self care Discharge Date/Time: 01/26/21 22:36
[2021-01-26 22:35] VITALS: BP 118/64; PULSE 82; RESP 16; O2SAT 97
== END 2021-01-26 22:36 | disposition home or self-care (01) ==
PROVIDERS: Emergency Provider Emergency Medicine; PCP Internal Medicine
DX: M25.531 Pain in right wrist (principal); F17.210 Nicotine dependence, cigarettes, uncomplicated; Z96.642 Presence of left artificial hip joint; I25.10 Atherosclerotic heart disease of native coronary artery without angina pectoris; J44.9 Chronic obstructive pulmonary disease, unspecified; E78.5 Hyperlipidemia, unspecified; I25.5 Ischemic cardiomyopathy; I25.2 Old myocardial infarction; Z79.1 Long term (current) use of non-steroidal anti-inflammatories (NSAID); Z79.82 Long term (current) use of aspirin; Z79.51 Long term (current) use of inhaled steroids
CPT/HCPCS: 73110; 99283

== ENCOUNTER → 2021-06-08 14:23 | Outpatient (CLI) | payer MEDICARE, MEDICAID, SELFPAY ==
--- NOTE | 2021-06-08 14:25 | RAD_ITS ---
INDICATION: Wheezing bilateral EXAMINATION/TECHNIQUE: X-RAY - XR Chest 2 Views COMPARISON: 08/09/2020. FINDINGS: The lungs are clear. Tortuous and calcified thoracic aorta. The heart is not enlarged. No pleural effusion or pneumothorax. Degenerative changes of the thoracic spine. RAD/Chest PA and Lateral IMPRESSION: No acute radiographic abnormalities. Electronically Signed: Henry Del Rio MD at 16:23 EDT Tel , Service support ,
== END ==
PROVIDERS: PCP Internal Medicine; Referring Provider Nurse Practitioner Gerontology; Visit Provider Nurse Practitioner Gerontology
DX: R06.2 Wheezing (principal)
CPT/HCPCS: 71046

== ENCOUNTER 2021-06-29 13:07 | Inpatient (IN) | payer MEDICARE, MEDICAID, SELFPAY ==
[2021-06-29] VITALS (29 sets, daily range): BP systolic 87–173; BP diastolic 72–130; PULSE 90–130; RESP 13–32; TEMP 35.5–37.1; O2SAT 76–100; BMI 22.0; BMI 21.8
--- NOTE | 2021-06-29 13:12 | EKG12_ITS ---
Test Reason : SOB Blood Pressure : / mmHG Vent. Rate : 121 BPM Atrial Rate : 121 BPM P-R Int : 118 ms QRS Dur : 074 ms QT Int : 328 ms P-R-T Axes : 072 043 079 degrees QTc Int : 465 ms Sinus tachycardia with occasional Premature ventricular complexes Low voltage QRS Borderline ECG Confirmed by JOSE DAVID RICE, CYNDY ([id number]), editor in chief newspaper MARI LAWSON ([id number]) on 06/30/2021 9:12:07 AM Referred By: JAHAIRA Confirmed By:CYNDY MAIN MD
--- NOTE | 2021-06-29 13:13 | RAD_ITS ---
STUDY: X-RAY CHEST REASON FOR EXAM: Male, 60 years old. sob TECHNIQUE: Single AP portable view of the chest. COMPARISON: 06/08/2021 FINDINGS: There is hyperinflation of the lungs consistent with chronic obstructive lung disease (COPD). There is no demonstrated pleural abnormality. Normal size heart. Normal mediastinum and winnie. Normal visualized pulmonary arteries. Normal visualized aortic arch and descending thoracic aorta. Normal visualized thoracic spine. Multiple healed left rib fractures. There is no demonstrated abnormality of the visualized soft tissue structures of the upper abdomen. RAD/Chest 1 View (Portable) IMPRESSION: Emphysema without pneumonia or atelectasis Electronically Signed: Zain Lynn MD at 13:26 EDT Tel , Service support ,
--- NOTE | 2021-06-29 13:15 | EDS_ITS ---
HPI <Dr. Traci Rome, DO - Last Filed: 06/29/21 15:09> History of Present Illness Chief Complaint: Shortness of Breath Informant: patient and EMS Narrative Narrative: Patient is a 60-year-old male with history of COPD and coronary artery disease presenting for worsening shortness of breath. Patient drove himself to local fire station where he is found to be in respiratory distress. They put him on CPAP and gave him a DuoNeb. Patient not has Covid vaccine. He states he feels like he has pneumonia. Patient states if needed he would want to be intubated and he would want chest compressions. [facility] <Dr. Traci Rome, - Last Filed: 06/29/21 15:09> [facility] Medical History Atherosclerotic heart disease of [place] coronary artery without angina pectoris BPH (benign prostatic hyperplasia) CAD (coronary artery disease) COPD (chronic obstructive pulmonary disease) HLD (hyperlipidemia) Ischemic cardiomyopathy Old myocardial infarction Paroxysmal atrial tachycardia Paroxysmal ventricular tachycardia Premature ventricular contraction Presence of stent in coronary artery (~06/27/08) Septic shock Home Medications clopidogrel 75 mg PO QHS 06/16/13 [History Last Taken 05/13/19 20:00 75 mg] cholecalciferol (vitamin D3) 2,000 units PO QHS 03/25/16 [History Last Taken 05/13/19] omeprazole 40 mg PO DAILY 05/13/17 [History Last Taken 05/13/19 08:00] aspirin 81 mg PO DAILY@0800 06/20/17 [History Last Taken 05/13/19 08:00] cyanocobalamin (vitamin B-12) 1,000 mcg tablet 1,000 mcg PO QHS 10/15/17 [History Last Taken 05/13/19 20:00 1000 mcg] cetirizine 10 mg PO QHS 12/14/17 [History Last Taken 05/13/19 10 mg] mometasone-formoterol 2 puff IH BID 06/30/18 [History Last Taken 05/13/19 04:00] levocetirizine 5 mg tablet 5 mg PO DAILY 09/23/19 [History Last Taken Unknown] trazodone 50 mg tablet 75 mg PO QHS tab 09/23/19 [History Last Taken Unknown] atorvastatin 20 mg tablet 20 mg PO DAILY #90 tab 01/04/20 [Rx Last Taken Unknown] PEP device #1 ea 04/27/20 [Rx Last Taken Unknown] montelukast 10 mg tablet 10 mg PO QPM #30 tab 05/21/21 [Rx Last Taken Unknown] albuterol sulfate 90 mcg/actuation aerosol inhaler 2 puff INHALATION Q2H PRN #18 g 06/13/21 [Rx Last Taken Unknown] Allergy/AdvReac Type Severity Reaction Status Date / Time latex Allergy Rash Verified 06/29/21 13:13 varenicline tartrate Allergy Hives Verified 06/29/21 13:13 [From Chantix] aspirin AdvReac Upset Verified 06/29/21 13:13 Stomach Family History Father , age 50 CAD (coronary artery disease) Heart disease Myocardial infarction Mother Diabetes Brother Hypertension Surgical History History of hernia repair History of left hip replacement Presence of coronary angioplasty implant and graft (~06/27/08) Social History Smoking Status: Current every day smoker tobacco type: cigarettes alcohol intake: never substance use type: does not use caffeine: Yes Type: coffee Number of servings: 3 what type of physical activity do you participate in: walking frequency: daily duration: 45-60 minutes/day seatbelt use: always do you feel safe at home: Yes ROS <Dr. Traci Rome, DO - Last Filed: 06/29/21 15:09> ROS ED Review of Systems ROS Unobtainable: other Details: Due to acuity of presentation Constitutional Constitutional ED: Denies fever(s) Cardiovascular Cardiovascular: Denies chest pain Respiratory/Chest Respiratory/Chest: Reports cough and dyspnea EXAM <Dr. Traci Rome, DO - Last Filed: 06/29/21 15:09> Physical Exam Const Vital Signs: 06/29/21 13:07 06/29/21 13:15 06/29/21 13:21 Temperature 95.9 F L 97.4 F L Temperature Source Temporal Temporal Pulse Rate 122 H 130 H 120 H Respiratory Rate 30 H 32 H 20 H Respiratory Effort Short of Breath Labored Accessory Muscle Use Head [place] Respiratory Depth Shallow Respiratory Pattern Tachypnea Tachypnea Blood Pressure 162/130 H Blood Pressure Mean 140 Blood Pressure Source Blood Pressure Position Blood Pressure Location Pulse Ox 76 98 91 Oxygen Delivery Method Bi-pap Bi-pap Oxygen Flow Rate (L/min) 100 Fraction of Inspired Oxygen (FIO2) 100 06/29/21 13:32 06/29/21 13:37 06/29/21 13:50 Temperature 97.7 F L Temperature Source Temporal Pulse Rate 119 H 125 H Respiratory Rate 32 H 30 H Respiratory Effort Short of Breath Labored Accessory Muscle Use Head [place] Respiratory Depth Shallow Respiratory Pattern Tachypnea Blood Pressure 159/119 H 173/103 H Blood Pressure Mean 132 126 Blood Pressure Source Blood Pressure Position Blood Pressure Location Pulse Ox 97 100 Oxygen Delivery Method Bi-pap Bi-pap Mechanical Ventilator Oxygen Flow Rate (L/min) Fraction of Inspired Oxygen (FIO2) 06/29/21 14:05 06/29/21 14:08 06/29/21 14:10 Temperature 97.7 F L Temperature Source Temporal Pulse Rate 130 H 120 H 122 H Respiratory Rate 27 H 20 H 23 H Respiratory Effort Respiratory Depth Respiratory Pattern Bradypnea Blood Pressure 122/92 H 136/94 H Blood Pressure Mean 102 108 Blood Pressure Source Monitor Blood Pressure Position Semi-Fowlers Blood Pressure Location Right Arm Pulse Ox 100 99 99 Oxygen Delivery Method Mechanical Ventilator Mechanical Ventilator Oxygen Flow Rate (L/min) Fraction of Inspired Oxygen (FIO2) 100 06/29/21 14:20 Temperature 97.3 F L Temperature Source Temporal Pulse Rate 117 H Respiratory Rate 21 H Respiratory Effort Respiratory Depth Respiratory Pattern Blood Pressure 119/89 H Blood Pressure Mean 99 Blood Pressure Source Monitor Blood Pressure Position Semi-Fowlers Blood Pressure Location Right Arm Pulse Ox 99 Oxygen Delivery Method Mechanical Ventilator Oxygen Flow Rate (L/min) Fraction of Inspired Oxygen (FIO2) Positive well nourished General Appearance ED: other acute distress HEENT Reports dry mucous membranes atraumatic Mouth ED: Yes dry mucous membranes Mouth: dry mucous membranes Eyes PERRL and EOMs intact bilaterally Neck supple Neck Narrative: JVD Resp Resp Narrative: Significant work of breathing/respiratory distress Auscultation: wheezes and diminished lung sounds Cardio Rate: tachycardic Extremity normal to inspection General Extremety ED: Negative for edema General Extremity: Negative for edema Neuro oriented x3 Sensorium / Orientation: alert Psych mental status grossly normal Skin Lesions: no lesions Rashes: no rashes <Dr. Darren Barnes, DO - Last Filed: 06/29/21 22:56> Physical Exam Const Vital Signs: 06/29/21 13:07 06/29/21 13:15 06/29/21 13:21 Temperature 95.9 F L 97.4 F L Temperature Source Temporal Temporal Pulse Rate 122 H 130 H 120 H Respiratory Rate 30 H 32 H 20 H Respiratory Effort Short of Breath Labored Accessory Muscle Use Head [place] Respiratory Depth Shallow Respiratory Pattern Tachypnea Tachypnea Blood Pressure 162/130 H Blood Pressure Mean 140 Blood Pressure Source Blood Pressure Position Blood Pressure Location Pulse Ox 76 98 91 Oxygen Delivery Method Bi-pap Bi-pap Oxygen Flow Rate (L/min) 100 Fraction of Inspired Oxygen (FIO2) 100 06/29/21 13:32 06/29/21 13:37 06/29/21 13:50 Temperature 97.7 F L Temperature Source Temporal Pulse Rate 119 H 125 H Respiratory Rate 32 H 30 H Respiratory Effort Short of Breath Labored Accessory Muscle Use Head [place] Respiratory Depth Shallow Respiratory Pattern Tachypnea Blood Pressure 159/119 H 173/103 H Blood Pressure Mean 132 126 Blood Pressure Source Blood Pressure Position Blood Pressure Location Pulse Ox 97 100 Oxygen Delivery Method Bi-pap Bi-pap Mechanical Ventilator Oxygen Flow Rate (L/min) Fraction of Inspired Oxygen (FIO2) 06/29/21 14:05 06/29/21 14:08 06/29/21 14:10 Temperature 97.7 F L Temperature Source Temporal Pulse Rate 130 H 120 H 122 H Respiratory Rate 27 H 20 H 23 H Respiratory Effort Respiratory Depth Respiratory Pattern Bradypnea Blood Pressure 122/92 H 136/94 H Blood Pressure Mean 102 108 Blood Pressure Source Monitor Blood Pressure Position Semi-Fowlers Blood Pressure Location Right Arm Pulse Ox 100 99 99 Oxygen Delivery Method Mechanical Ventilator Mechanical Ventilator Oxygen Flow Rate (L/min) Fraction of Inspired Oxygen (FIO2) 100 06/29/21 14:20 Temperature 97.3 F L Temperature Source Temporal Pulse Rate 117 H Respiratory Rate 21 H Respiratory Effort Respiratory Depth Respiratory Pattern Blood Pressure 119/89 H Blood Pressure Mean 99 Blood Pressure Source Monitor Blood Pressure Position Semi-Fowlers Blood Pressure Location Right Arm Pulse Ox 99 Oxygen Delivery Method Mechanical Ventilator Oxygen Flow Rate (L/min) Fraction of Inspired Oxygen (FIO2) MDM <Dr. Traci Rome, DO - Last Filed: 06/29/21 15:09> [facility] Narrative Medical decision making narrative: Patient evaluated for acute respiratory failure. He has significant underlying COPD as well as coronary artery disease. Patient was initially 78% and placed on 100% BiPAP. His work of breathing did slightly improve as well of his oxygenation with stacked breathing treatments, Solu-Medrol and subcu terbutaline. Patient had said that he was starting to feel tired and feels like he needs to be intubated. ABG shows a significance hypoxic, hypercapnic respiratory acidosis. Patient is intubated, see procedure note. He is admitted to the ICU. Is placed on fentanyl and propofol drip. Patient's daughter who is his medical power of doctor of dental medicine is at the bedside and aware of this plan of care. Lab Data Attestation: I reviewed the patient's lab results. Labs: Laboratory Results - last 24 hr 06/29/21 06/29/21 06/29/21 13:15 13:15 13:15 WBC 11.4 H RBC 5.17 Hgb 15.4 Hct 48.4 MCV 93.6 MCH 29.8 MCHC 31.8 L RDW Std Deviation 47.1 H RDW Coeff of [place] 13.5 Plt Count 335 MPV 9.7 Immature Gran % (Auto) 0.900 Neut % (Auto) 56.8 Lymph % (Auto) 24.0 [place] % (Auto) 11.2 H Eos % (Auto) 6.4 H Baso % (Auto) 0.7 Absolute Neuts (auto) 6.5 Absolute Lymphs (auto) 2.74 Nucleated RBC % 0 D-Dimer Quant (PE/DVT) 0.50 H Sodium 139 Potassium 4.6 Chloride 105 Carbon Dioxide 28.0 Anion Gap 6 BUN 10 Creatinine 1.01 Estim Creat Clear Calc 73.29 Est GFR (MDRD) Af Amer 97 Est GFR (MDRD) Non-Af 80 BUN/Creatinine Ratio 9.9 L Glucose 139 H Lactic Acid Calcium 8.9 Troponin I High Sens 10 B-Natriuretic Peptide 06/29/21 06/29/21 13:15 13:15 WBC RBC Hgb Hct MCV MCH MCHC RDW Std Deviation RDW Coeff of [place] Plt Count MPV Immature Gran % (Auto) Neut % (Auto) Lymph % (Auto) [place] % (Auto) Eos % (Auto) Baso % (Auto) Absolute Neuts (auto) Absolute Lymphs (auto) Nucleated RBC % D-Dimer Quant (PE/DVT) Sodium Potassium Chloride Carbon Dioxide Anion Gap BUN Creatinine Estim Creat Clear Calc Est GFR (MDRD) Af Amer Est GFR (MDRD) Non-Af BUN/Creatinine Ratio Glucose Lactic Acid 3.8 H* Calcium Troponin I High Sens B-Natriuretic Peptide 36.5 ABG Data ABG results: ABG 06/29/21 13:20 Specimen Type ART Sample Site R Radial pH 7.08 L* Bicarbonate Actual 26.6 H Total CO2 29 Base Excess -3 L O2 Saturation 73 L O2 % 100 ABG pCO2 89.0 H* ABG pO2 55 L Maykel Test Positive O2 Delivery Device BiPAP POC PEEP 10 Crit Call To/Read Back Yes Blood Gas Notified Whom Dr. Rome Blood Gas Notified Time 1320 Radiography Chest X-Ray - ED: 1 View, Read by ED Physician, Read by Radiologist and Chronic Changes Diagnostic Testing: Clinical Impression(s) from Imaging Studies Chest X-Ray 06/29/21 13:13 IMPRESSION: Emphysema without pneumonia or atelectasis Electronically Signed: Zain Lynn MD at 13:26 EDT Tel , Service support , Chest X-Ray 06/29/21 13:58 IMPRESSION: 1. Interval placement of endotracheal tube with the tip above the luli. 2. Interval placement of nasogastric tube with the tip likely in the cardia of the stomach and the side-port in the distal esophagus. 3. No active pulmonary disease. Electronically Signed: Zain Lynn MD at 14:32 EDT Tel , Service support , Rhythm Strip Rhythm Strip: Sinus Tach Rate: 121 Ectopy: None EKG Initial EKG: Attestation: I personally reviewed and interpreted this EKG as follows: Interpretation: Sinus Tachycardia Comments: Sinus tachycardia at a rate of 121 Low voltage QRS Normal intervals Normal axis Normal ST segments <Dr. Darren Barnes, DO - Last Filed: 06/29/21 22:56> MDM Lab Data Labs: Laboratory Results - last 24 hr 06/29/21 06/29/21 06/29/21 13:15 13:15 13:15 WBC 11.4 H RBC 5.17 Hgb 15.4 Hct 48.4 MCV 93.6 MCH 29.8 MCHC 31.8 L RDW Std Deviation 47.1 H RDW Coeff of [place] 13.5 Plt Count 335 MPV 9.7 Immature Gran % (Auto) 0.900 Neut % (Auto) 56.8 Lymph % (Auto) 24.0 [place] % (Auto) 11.2 H Eos % (Auto) 6.4 H Baso % (Auto) 0.7 Absolute Neuts (auto) 6.5 Absolute Lymphs (auto) 2.74 Nucleated RBC % 0 D-Dimer Quant (PE/DVT) 0.50 H Sodium 139 Potassium 4.6 Chloride 105 Carbon Dioxide 28.0 Anion Gap 6 BUN 10 Creatinine 1.01 Estim Creat Clear Calc 73.29 Est GFR (MDRD) Af Amer 97 Est GFR (MDRD) Non-Af 80 BUN/Creatinine Ratio 9.9 L Glucose 139 H Lactic Acid Calcium 8.9 Troponin I High Sens 10 B-Natriuretic Peptide 06/29/21 06/29/21 13:15 13:15 WBC RBC Hgb Hct MCV MCH MCHC RDW Std Deviation RDW Coeff of [place] Plt Count MPV Immature Gran % (Auto) Neut % (Auto) Lymph % (Auto) [place] % (Auto) Eos % (Auto) Baso % (Auto) Absolute Neuts (auto) Absolute Lymphs (auto) Nucleated RBC % D-Dimer Quant (PE/DVT) Sodium Potassium Chloride Carbon Dioxide Anion Gap BUN Creatinine Estim Creat Clear Calc Est GFR (MDRD) Af Amer Est GFR (MDRD) Non-Af BUN/Creatinine Ratio Glucose Lactic Acid 3.8 H* Calcium Troponin I High Sens B-Natriuretic Peptide 36.5 ABG Data ABG results: ABG 06/29/21 13:20 Specimen Type ART Sample Site R Radial pH 7.08 L* Bicarbonate Actual 26.6 H Total CO2 29 Base Excess -3 L O2 Saturation 73 L O2 % 100 ABG pCO2 89.0 H* ABG pO2 55 L Maykel Test Positive O2 Delivery Device BiPAP POC PEEP 10 Crit Call To/Read Back Yes Blood Gas Notified Whom Dr. Rome Blood Gas Notified Time 1320 Radiography Diagnostic Testing: Clinical Impression(s) from Imaging Studies Chest X-Ray 06/29/21 13:13 IMPRESSION: Emphysema without pneumonia or atelectasis Electronically Signed: Zain Lynn MD at 13:26 EDT Tel , Service support , Chest X-Ray 06/29/21 13:58 IMPRESSION: 1. Interval placement of endotracheal tube with the tip above the luli. 2. Interval placement of nasogastric tube with the tip likely in the cardia of the stomach and the side-port in the distal esophagus. 3. No active pulmonary disease. Electronically Signed: Zain Lynn MD at 14:32 EDT Tel , Service support , Procedures <Dr. Traci Rome, DO - Last Filed: 06/29/21 15:09> Intubations Intubation Method: orotracheal (4-0 video laryngoscopy. Sedated with ketamine. No paralytic use. No desaturation.) Intubation Verification: Positive color change and Bilateral breath sounds confirmed Intubation Complications: no complications <Dr. Traci Rome, DO - Last Filed: 06/29/21 15:09> Critical Care Time Critical Care Time: Yes Critical care time (excluding procedures): 30-74 minutes (50), Discussing w/Patient &/or Family/Blue Line Trimmer, Arranging Admission or Transfer and Performing Direct Patient Care at Bedside Discharge Plan Dx/Rx/DC Orders Clinical Impression: Acute on chronic respiratory failure with hypoxia and hypercapnia, Asthma exacerbation in COPD Disposition Disposition: Acute Care Hospital [facility] Discharge Date/Time: 06/29/21 16:05
[2021-06-29 13:25] LABS: Allen Test Positive; Base Excess -3 mmol/L (-2 to +2); Bicarbonate 26.6 mmol/L (22-26); Blood Gas Specimen Type ART; FI02 100; PEEP 10; PO2 55 mmHG (75-100); SITE R Radial; SO2 73 % (95-99); Total Carbon Dioxide 29 mmol/L; pH 7.08 (7.35-7.45)
[2021-06-29] MEDS: MethylPREDNISolone 125 MG/2 ML Vial IV (13:29)
[2021-06-29] MEDS: Terbutaline 1 MG/ML Vial 0.25 MG SC (13:30)
[2021-06-29 13:36] LABS: O2 Delivery Device BiPAP; Time Given 1320
--- NOTE | 2021-06-29 13:38 | EKG12_ITS ---
Test Reason : SOB Blood Pressure : / mmHG Vent. Rate : 125 BPM Atrial Rate : 125 BPM P-R Int : 116 ms QRS Dur : 076 ms QT Int : 264 ms P-R-T Axes : 069 027 079 degrees QTc Int : 381 ms Somatic/Motion Artifact Sinus rhythm Low voltage QRS (Limb Leads) Confirmed by JOSE DAVID RICE, CYNDY ([id number]), video news editor MARI LAWSON ([id number]) on 07/05/2021 8:57:37 AM Referred By: JAHAIRA Confirmed By:CYNDY MAIN MD
[2021-06-29 13:47] LABS: Absolute Lymphocyte Count 2.74 X10^3/uL (0.83-4.51); Absolute Neutrophil Count 6.5 X10^3/uL (2.0-7.7); Basophil# 0.08 X10^3/uL; Basophil% 0.7 % (0-1); Eosinophil# 0.73 X10^3/uL; Eosinophils% 6.4 % (0-5); Hematocrit 48.4 % (40-54); Hemoglobin 15.4 g/dL (13.0-16.5); Lymphocyte # 2.74 X10^3/ul (0.83-4.51); Mean Corp Hgb Conc 31.8 g/dL (32-36); Mean Corpuscular Hgb 29.8 pg (27.0-32.0); Mean Corpuscular Volume 93.6 fL (80-94); Mean Platelet Vol. 9.7 fl (6.2-12.0); Monocyte# 1.28 X10^3/uL; Monocyte% 11.2 % (0-10); NRBC Flagged by Analyzer 0 % (0-5); Neutrophil # 6.47 X10^3/uL (2.7-7.7); Neutrophil % 56.8 % (47-70); Platelet Count 335 K/mm3 (150-450); RBC Distribution Width CV 13.5 % (11.6-14.6); RBC Distribution Width SD 47.1 fl (35.1-43.9); Red Blood Count 5.17 M/mm3 (4.6-6.2); White Blood Count 11.4 K/mm3 (4.4-11.0)
[2021-06-29] MEDS: Ketamine HCl 500 MG/5 ML Vial 200 MG IV (13:48)
--- NOTE | 2021-06-29 13:58 | RAD_ITS ---
STUDY: X-RAY CHEST REASON FOR EXAM: Male, 60 years old. intubation TECHNIQUE: Single AP portable view of the chest. COMPARISON: 06/29/2021 at 1308 FINDINGS: Interval placement of endotracheal tube with the tip probably 6 cm above the luli. Interval placement of nasogastric tube with the tip likely in the cardia the stomach and the side-port in the distal esophagus. The lungs are clear and expanded. There is no demonstrated pleural abnormality. Normal size heart. Normal mediastinum and winnie. Normal visualized pulmonary arteries. Normal visualized aortic arch and descending thoracic aorta. Normal visualized thoracic spine. Multiple healed left rib fractures. There is no demonstrated abnormality of the visualized soft tissue structures of the upper abdomen. RAD/Chest 1 View (Portable) IMPRESSION: 1. Interval placement of endotracheal tube with the tip above the luli. 2. Interval placement of nasogastric tube with the tip likely in the cardia of the stomach and the side-port in the distal esophagus. 3. No active pulmonary disease. Electronically Signed: Zain Lynn MD at 14:32 EDT Tel , Service support ,
[2021-06-29] MEDS: Propofol 10MG/Ml 1,000 MG/100 ML Bottle 3.9 MG CONT INF (14:10)
[2021-06-29 14:11] LABS: BNP,B-Type NATRIURETIC PEPTIDE 36.5 pg/mL (0-100)
[2021-06-29 14:14] LABS: Anion Gap 6 (5-15); BUN 10 mg/dL (7-18); BUN/Creat Ratio 9.9 RATIO (10-20); Calcium,Total 8.9 mg/dL (8.5-10.1); Chloride 105 mmol/L (98-107); Creatinine, Serum 1.01 mg/dL (0.70-1.30); EST Glomerular Filtration Rate 80 mL/min (>60); Est Glom Filt Rate - Afr Amer 97 mL/min (>60); Estimated Creatinine Clearance 73.29 ml/min; Glucose 139 mg/dL (74-106); Potassium 4.6 mmol/L (3.5-5.1); Sodium Level 139 mmol/L (136-145); Troponin-I HS 10 pg/mL (3.0-78.0)
[2021-06-29 14:18] LABS: Lactic Acid 3.8 mmol/L (0.4-1.9)
[2021-06-29] MEDS: fentaNYL 100 MCG/2 ML Ampul 50 MCG IV (14:18)
--- NOTE | 2021-06-29 14:21 | PCM.HP.STD ---
HPI - General General Date of Admission: 06/29/21 HPI Narrative CHIO DENT, is a 60 M who presents to the ER with worsening shortness of breath and wheezing. Patient is currently intubated, history is largely gathered from chart review and nurse report. Patient was reported to have driven himself to the local fire station where he was found to be in respiratory distress and respiratory failure. He was put on CPAP and was started on duo nebs. Upon arrival patient was tachypneic, tachycardic and hypoxic. Concern was present by ER physician that patient would go further into respiratory decline. Decision was made at that point for patient to be sedated and subsequently intubated. Patient was started on breathing treatments and high-dose Solu-Medrol steroids. ABG was obtained and showed pH of 7.08. Lactic acid of 3.8 patient admitted to ICU level of care for further evaluation of acute on chronic hypoxic respiratory failure in setting of presumed COPD exacerbation with possible underlying pneumonia. [facility] Medical History Atherosclerotic heart disease of [place] coronary artery without angina pectoris BPH (benign prostatic hyperplasia) CAD (coronary artery disease) COPD (chronic obstructive pulmonary disease) HLD (hyperlipidemia) Ischemic cardiomyopathy Old myocardial infarction Paroxysmal atrial tachycardia Paroxysmal ventricular tachycardia Premature ventricular contraction Presence of stent in coronary artery (~06/27/08) Septic shock Home Medications clopidogrel 75 mg PO QHS 06/16/13 [History Last Taken 05/13/19 20:00 75 mg] cholecalciferol (vitamin D3) 2,000 units PO QHS 03/25/16 [History Last Taken 05/13/19] omeprazole 40 mg PO DAILY 05/13/17 [History Last Taken 05/13/19 08:00] aspirin 81 mg PO DAILY@0800 06/20/17 [History Last Taken 05/13/19 08:00] cyanocobalamin (vitamin B-12) 1,000 mcg tablet 1,000 mcg PO QHS 10/15/17 [History Last Taken 05/13/19 20:00 1000 mcg] cetirizine 10 mg PO QHS 12/14/17 [History Last Taken 05/13/19 10 mg] mometasone-formoterol 2 puff IH BID 06/30/18 [History Last Taken 05/13/19 04:00] levocetirizine 5 mg tablet 5 mg PO DAILY 09/23/19 [History Last Taken Unknown] trazodone 50 mg tablet 75 mg PO QHS tab 09/23/19 [History Last Taken Unknown] atorvastatin 20 mg tablet 20 mg PO DAILY #90 tab 01/04/20 [Rx Last Taken Unknown] PEP device #1 ea 04/27/20 [Rx Last Taken Unknown] montelukast 10 mg tablet 10 mg PO QPM #30 tab 05/21/21 [Rx Last Taken Unknown] albuterol sulfate 90 mcg/actuation aerosol inhaler 2 puff INHALATION Q2H PRN #18 g 06/13/21 [Rx Last Taken Unknown] Allergy/AdvReac Type Severity Reaction Status Date / Time latex Allergy Rash Verified 06/29/21 13:13 varenicline tartrate Allergy Hives Verified 06/29/21 13:13 [From Chantix] aspirin AdvReac Upset Verified 06/29/21 13:13 Stomach Family History Father , age 50 CAD (coronary artery disease) Heart disease Myocardial infarction Mother Diabetes Brother Hypertension Surgical History History of hernia repair History of left hip replacement Presence of coronary angioplasty implant and graft (~06/27/08) Social History Smoking Status: Current every day smoker tobacco type: cigarettes alcohol intake: never substance use type: does not use caffeine: Yes Type: coffee Number of servings: 3 what type of physical activity do you participate in: walking frequency: daily duration: 45-60 minutes/day seatbelt use: always do you feel safe at home: Yes ROS ROS Narrative Unable to be obtained due to patient being currently intubated and sedated Vital Signs Vital Signs Vital Signs: 06/29/21 13:07 06/29/21 13:21 06/29/21 13:32 Temperature 95.9 F L 97.4 F L Temperature Source Temporal Temporal Pulse Rate 122 H 120 H 119 H Respiratory Rate 30 H 20 H 32 H Respiratory Effort Short of Breath Labored Accessory Muscle Use Head [place] Respiratory Depth Shallow Respiratory Pattern Tachypnea Blood Pressure 162/130 H 159/119 H Blood Pressure Mean 140 132 Blood Pressure Source Blood Pressure Position Blood Pressure Location Pulse Ox 76 91 97 Oxygen Delivery Method Bi-pap Bi-pap Bi-pap Oxygen Flow Rate (L/min) 100 06/29/21 13:37 06/29/21 13:50 06/29/21 14:08 Temperature 97.7 F L Temperature Source Temporal Pulse Rate 125 H 120 H Respiratory Rate 30 H 20 H Respiratory Effort Short of Breath Labored Accessory Muscle Use Head [place] Respiratory Depth Shallow Respiratory Pattern Tachypnea Blood Pressure 173/103 H 122/92 H Blood Pressure Mean 126 102 Blood Pressure Source Blood Pressure Position Blood Pressure Location Pulse Ox 100 99 Oxygen Delivery Method Bi-pap Mechanical Ventilator Mechanical Ventilator Oxygen Flow Rate (L/min) 06/29/21 14:10 Temperature 97.7 F L Temperature Source Temporal Pulse Rate 122 H Respiratory Rate 23 H Respiratory Effort Respiratory Depth Respiratory Pattern Blood Pressure 136/94 H Blood Pressure Mean 108 Blood Pressure Source Monitor Blood Pressure Position Semi-Fowlers Blood Pressure Location Right Arm Pulse Ox 99 Oxygen Delivery Method Mechanical Ventilator Oxygen Flow Rate (L/min) Weight Weight: 65.8 kg Body Mass Index (BMI) 22.0 Physical Exam Const Constitutional Narrative: Sedated, intubated General Appearance: comfortable, well kempt and well developed Exam Limitations: no limitations Nutritional Appearance: obese HEENT normocephalic, head/scalp atraumatic, hearing grossly normal bilaterally and oropharynx normal HEENT Narrative: ET tube in place Eyes PERRL and EOMs intact bilaterally Neck General: normal visual inspection and trachea midline Lymph Lymphatic: no lymphadenopathy noted Chest inspection of chest normal and palpation of chest normal Resp normal air movement Resp Narrative: Presence of accessory muscle use, diminished breath sounds bilaterally, bilateral wheezing present Auscultation: clear to auscultation bilaterally Cardio regular rhythm, S1 normal heart sound, S2 normal heart sound, no murmurs, no rub and no gallops Cardio Narrative: Tachycardic GI normal to inspection, nondistended, normoactive bowel sounds Extremity normal to inspection, normal capillary refill and no pedal edema Peripheral Pulses: Yes pulses 2+ throughout Skin no rashes or lesions noted General Skin Exam: no breakdown Neuro Neuro Narrative: Currently sedated, exam indicates nonfocal findings Psych mental status grossly normal Results Lab / Micro Data Result Diagrams: 06/29/21 13:15 06/29/21 13:15 Labs: Laboratory Results - last 24 hr 06/29/21 13:15: WBC 11.4 H, RBC 5.17, Hgb 15.4, Hct 48.4, MCV 93.6, MCH 29.8, MCHC 31.8 L, RDW Std Deviation 47.1 H, RDW Coeff of [place] 13.5, Plt Count 335, MPV 9.7, Immature Gran % (Auto) 0.900, Neut % (Auto) 56.8, Lymph % (Auto) 24.0, [place] % (Auto) 11.2 H, Eos % (Auto) 6.4 H, Baso % (Auto) 0.7, Absolute Neuts (auto) 6.5, Absolute Lymphs (auto) 2.74, Nucleated RBC % 0 06/29/21 13:15: D-Dimer Quant (PE/DVT) 0.50 H 06/29/21 13:15: Sodium 139, Potassium 4.6, Chloride 105, Carbon Dioxide 28.0, Anion Gap 6, BUN 10, Creatinine 1.01, Estim Creat Clear Calc 73.29, Est GFR (MDRD) Af Amer 97, Est GFR (MDRD) Non-Af 80, BUN/Creatinine Ratio 9.9 L, Glucose 139 H, Calcium 8.9, Troponin I High Sens 10 06/29/21 13:15: Lactic Acid 3.8 H* 06/29/21 13:15: B-Natriuretic Peptide 36.5 Micro: Microbiology 06/29/21 13:15 Nasal Secretion SARS-CoV-2 Antigen (Rapid) - Final ABG Data ABG results: ABG 06/29/21 13:20 Specimen Type ART Sample Site R Radial pH 7.08 L* Bicarbonate Actual 26.6 H Total CO2 29 Base Excess -3 L O2 Saturation 73 L O2 % 100 ABG pCO2 89.0 H* ABG pO2 55 L Maykel Test Positive O2 Delivery Device BiPAP POC PEEP 10 Crit Call To/Read Back Yes Blood Gas Notified Whom Dr. [place] Blood Gas Notified Time 1320 Radiology Impression Chest X-Ray 06/29/21 13:13 IMPRESSION: Emphysema without pneumonia or atelectasis Electronically Signed: Zain Lynn MD at 13:26 EDT Tel , Service support , Assessment & Plan Assessment/Plan (1) COPD exacerbation: (2) Acute respiratory failure: QUALIFIERS: Respiratory failure complication: hypoxia Qualified Code(s): J96.01 - Acute respiratory failure with hypoxia (3) Acute on chronic respiratory failure with hypoxemia: (4) Atherosclerotic heart disease of [place] coronary artery without angina pectoris: QUALIFIERS: [place] vs. transplanted heart: [place] heart Qualified Code(s): I25.10 - Atherosclerotic heart disease of [place] coronary artery without angina pectoris (5) COPD (chronic obstructive pulmonary disease): QUALIFIERS: COPD type: COPD with acute exacerbation Qualified Code(s): J44.1 - Chronic obstructive pulmonary disease with (acute) exacerbation PLAN: #Acute on chronic hypoxic hypercapnic respiratory failure #COPD acute exacerbation #CAP, PNA? #mixed metabolic/respiratory Acidosis -Pt intubated in the ED -Ventilatory support -Solumedrol 60mg IV TID -Protonix 40mg IV daily -Zosyn IV -duonebs -Precedex, propofol for sedation -repeat ABG -Pulm/cc Consulted #CAD -resume home DAPT and Statin therapy #DVT PPx -Lovenox 40mg BID, high risk Charges/Coding Visit Charges Inpatient E&M: 18329 Init Hosp L3
[2021-06-29 15:41] LABS: Base Excess -2 mmol/L (-2 to +2); Bicarbonate 24.1 mmol/L (22-26); Blood Gas Specimen Type ART; FI02 70; Mode AC; O2 Delivery Device Adult Vent; PO2 138 mmHG (75-100); SITE R Radial; SO2 99 % (95-99); Total Carbon Dioxide 26 mmol/L; pCO2 45.9 mmHg (35-45); pH 7.33 (7.35-7.45)
--- NOTE | 2021-06-29 15:56 | ED.RN ---
report given to sustainable agriculture specialist
--- NOTE | 2021-06-29 16:02 | EX.PCM.CONCC ---
Assessment & Plan Assessment/Plan (1) Acute on chronic respiratory failure with hypoxia and hypercapnia: (2) Asthma exacerbation in COPD: (3) Bronchiectasis: QUALIFIERS: Bronchiectasis type: uncomplicated Qualified Code(s): J47.9 - Bronchiectasis, uncomplicated PLAN: RECOMMENDATIONS: 1. Continue current mechanical ventilation settings. Wean oxygen as tolerated 2. Spontaneous breathing and awakening trials per protocol 3. Agree with Zosyn. Send viral panel 4. Propofol and fentanyl as needed for sedation and pain control 5. Obtain sputum culture IMPRESSIONS: 1. Acute on chronic respiratory failure secondary to probable COPD/asthma/bronchiectasis exacerbation Patient does not have any significant infiltrates noted on chest x-ray. However, patient does have a significant amount of wheezing, left greater than right. Patient will be initiated on bronchodilators and steroids. ABG shows adequate oxygenation and ventilation on the current settings. Continue to wean oxygen as tolerated. Send viral panel. Agree with empiric antibiotics in the interim. Spontaneous breathing and awakening trials per protocol. Propofol and fentanyl as needed to help with vent synchrony. Obtain sputum culture. Elevated lactic acid likely secondary to global hypoxemia 2. History of ischemic cardiomyopathy/delayed presentation/nonvaccinated status/history of PE/hyperlipidemia Complicates care, management, recovery and prognosis. Okay to continue with baseline medications for now. Patient does not appear to be fluid overloaded in my opinion. Okay to continue with baseline medications for now. TIME: 33 minutes critical care time spent addressing patient's acute on chronic hypoxic respiratory failure, review of all data and collaboration with care team (3 PM to 4:17 PM) HPI Consult Data Date of Consult: 06/29/21 HPI Narrative HPI Narrative: CHIO DENT is a 60 M, with past medical history listed below and well-known to me from the outpatient office, who presents to [facility] on 06/29/2021 secondary to worsening shortness of breath. Patient reportedly had driven himself to a local fire station and was found to be in respiratory distress. Patient was placed on CPAP therapy and given an aerosol. Patient stated that he felt this was like previous pneumonias. Patient reportedly has not received a COVID-19 vaccination. On arrival to the ER, patient was noted to be tachycardic at 122 breaths/min, tachypneic at 30 breaths/min and saturating 76% on BiPAP. The patient was placed on 100% AVAPS with mild improvement. Patient did have a significant hypertension of 162/130 and ultimately required intubation. Laboratory work-up showed a white blood cell count of 11.4, hemoglobin of 15.4, D-dimer of 0.5 and an unremarkable BMP. High-sensitivity troponin and BNP were unremarkable. Patient's lactate was 3.8. Patient's initial ABG on BiPAP was 7.08/89/55/100%. Chest x-ray showed emphysema initially. Repeat chest x-ray showed endotracheal tube in good placement, but the OG was in the distal esophagus. EKG showed only sinus tachycardia without ST segment changes. Patient was evaluated in the emergency room. On my arrival, patient was on propofol, but still able to answer questions. Per family at the bedside, patient has had multiple stressful events in the last 1 to 2 weeks. It was unclear if there were many family gatherings, but patient has been going downhill for the last week. Patient had been using his inhaler much more than normal. Patient had also attempted using Acapella. Family was unclear if the patient had received a flu vaccination, but did state that there was no way he was getting a COVID-19 vaccine. Review of systems otherwise negative from a constitutional, HEENT, respiratory, cardiovascular, GI, genitourinary, musculoskeletal, skin, neurologic, psychiatric and hematologic system unless stated above. [facility] Medical History Atherosclerotic heart disease of [place] coronary artery without angina pectoris BPH (benign prostatic hyperplasia) CAD (coronary artery disease) COPD (chronic obstructive pulmonary disease) HLD (hyperlipidemia) Ischemic cardiomyopathy Old myocardial infarction Paroxysmal atrial tachycardia Paroxysmal ventricular tachycardia Premature ventricular contraction Presence of stent in coronary artery (~06/27/08) Septic shock Home Medications clopidogrel 75 mg PO QHS 06/16/13 [History Last Taken 05/13/19 20:00 75 mg] cholecalciferol (vitamin D3) 2,000 units PO QHS 03/25/16 [History Last Taken 05/13/19] omeprazole 40 mg PO DAILY 05/13/17 [History Last Taken 05/13/19 08:00] aspirin 81 mg PO DAILY@0800 06/20/17 [History Last Taken 05/13/19 08:00] cyanocobalamin (vitamin B-12) 1,000 mcg tablet 1,000 mcg PO QHS 10/15/17 [History Last Taken 05/13/19 20:00 1000 mcg] cetirizine 10 mg PO QHS 12/14/17 [History Last Taken 05/13/19 10 mg] mometasone-formoterol 2 puff IH BID 06/30/18 [History Last Taken 05/13/19 04:00] levocetirizine 5 mg tablet 5 mg PO DAILY 09/23/19 [History Last Taken Unknown] trazodone 50 mg tablet 75 mg PO QHS tab 09/23/19 [History Last Taken Unknown] atorvastatin 20 mg tablet 20 mg PO DAILY #90 tab 01/04/20 [Rx Last Taken Unknown] PEP device #1 ea 04/27/20 [Rx Last Taken Unknown] montelukast 10 mg tablet 10 mg PO QPM #30 tab 05/21/21 [Rx Last Taken Unknown] albuterol sulfate 90 mcg/actuation aerosol inhaler 2 puff INHALATION Q2H PRN #18 g 06/13/21 [Rx Last Taken Unknown] Allergy/AdvReac Type Severity Reaction Status Date / Time latex Allergy Rash Verified 06/29/21 13:13 varenicline tartrate Allergy Hives Verified 06/29/21 13:13 [From Chantix] aspirin AdvReac Upset Verified 06/29/21 13:13 Stomach Family History Father , age 50 CAD (coronary artery disease) Heart disease Myocardial infarction Mother Diabetes Brother Hypertension Surgical History History of hernia repair History of left hip replacement Presence of coronary angioplasty implant and graft (~06/27/08) Social History Smoking Status: Current every day smoker tobacco type: cigarettes alcohol intake: never substance use type: does not use caffeine: Yes Type: coffee Number of servings: 3 what type of physical activity do you participate in: walking frequency: daily duration: 45-60 minutes/day seatbelt use: always do you feel safe at home: Yes ROS ROS Narrative See HPI Physical Exam Const Constitutional Narrative: Good vent synchrony General Appearance: comfortable, well kempt, well developed, appears older than stated age, intubated and patient mechanically ventilated Exam Limitations: no limitations HEENT normocephalic, head/scalp atraumatic, hearing grossly normal bilaterally and oropharynx normal Mouth: endotracheal tube in place and OG tube in place Eyes PERRL and EOMs intact bilaterally Neck General: normal visual inspection and trachea midline Lymph Lymphatic: no lymphadenopathy noted Chest inspection of chest normal and palpation of chest normal Resp Auscultation: wheezes left lower and left upper and diminished lung sounds; Negative for rales or rhonchi Percussion: Negative for dullness Cardio regular rhythm, S1 normal heart sound, S2 normal heart sound, no murmurs, no rub and no gallops Cardio Narrative: Tachycardic GI normal to inspection, nondistended, normoactive bowel sounds Extremity normal to inspection, normal capillary refill and no pedal edema Peripheral Pulses: Yes pulses 2+ throughout Skin no rashes or lesions noted General Skin Exam: no breakdown Neuro CN's II-XII intact bilaterally, moves all extremities and no focal motor deficits Sensorium / Orientation: sedated on vent RASS: 0 Psych mental status grossly normal Lab / Micro Data Result Diagrams: 06/29/21 13:15 06/29/21 13:15 Labs: Laboratory Results - last 24 hr 06/29/21 13:15: WBC 11.4 H, RBC 5.17, Hgb 15.4, Hct 48.4, MCV 93.6, MCH 29.8, MCHC 31.8 L, RDW Std Deviation 47.1 H, RDW Coeff of [place] 13.5, Plt Count 335, MPV 9.7, Immature Gran % (Auto) 0.900, Neut % (Auto) 56.8, Lymph % (Auto) 24.0, [place] % (Auto) 11.2 H, Eos % (Auto) 6.4 H, Baso % (Auto) 0.7, Absolute Neuts (auto) 6.5, Absolute Lymphs (auto) 2.74, Nucleated RBC % 0 06/29/21 13:15: D-Dimer Quant (PE/DVT) 0.50 H 06/29/21 13:15: Sodium 139, Potassium 4.6, Chloride 105, Carbon Dioxide 28.0, Anion Gap 6, BUN 10, Creatinine 1.01, Estim Creat Clear Calc 73.29, Est GFR (MDRD) Af Amer 97, Est GFR (MDRD) Non-Af 80, BUN/Creatinine Ratio 9.9 L, Glucose 139 H, Calcium 8.9, Troponin I High Sens 10 06/29/21 13:15: Lactic Acid 3.8 H* 06/29/21 13:15: B-Natriuretic Peptide 36.5 Micro: Microbiology 06/29/21 13:15 Nasal Secretion SARS-CoV-2 Antigen (Rapid) - Final ABG Data ABG results: ABG 06/29/21 06/29/21 13:20 15:34 Specimen Type ART ART Sample Site R Radial R Radial pH 7.08 L* 7.33 L Bicarbonate Actual 26.6 H 24.1 Total CO2 29 26 Base Excess -3 L -2 O2 Saturation 73 L 99 O2 % 100 70 ABG pCO2 89.0 H* 45.9 H ABG pO2 55 L 138 H Maykel Test Positive O2 Delivery Device BiPAP Adult Vent Vent Mode AC POC PEEP 10 Crit Call To/Read Back Yes Blood Gas Notified Whom Dr. [place] Blood Gas Notified Time 1320 Rhythm Strip Rhythm Strip: Sinus Tach Rate: 121 Ectopy: None Radiology Impression Chest X-Ray 06/29/21 13:13 IMPRESSION: Emphysema without pneumonia or atelectasis Electronically Signed: Zain Lynn MD at 13:26 EDT Tel , Service support , Chest X-Ray 06/29/21 13:58 IMPRESSION: 1. Interval placement of endotracheal tube with the tip above the luli. 2. Interval placement of nasogastric tube with the tip likely in the cardia of the stomach and the side-port in the distal esophagus. 3. No active pulmonary disease. Electronically Signed: Zain Lynn MD at 14:32 EDT Tel , Service support , Charges/Coding Procedures Hospitalists Procedures: 37925 Critial Care 1st Hr
--- NOTE | 2021-06-29 16:30 | RAD_ITS ---
STUDY: X-RAY - ABDOMEN/PELVIS REASON FOR EXAM: Male, 60 years old. og tube placement -- og advanced TECHNIQUE: KUB COMPARISON: 06/29/2019 FINDINGS: Normal visualized lung bases. Mild gastric and proximal small bowel distention. There is no demonstrated free abdominal air. The visualized liver, spleen and kidneys are grossly normal in size and morphology. OG tube noted with tip in the expected location of the post bulbar duodenum Normal soft tissue structures. Normal visualized osseous structures. RAD/Abdomen Single View (Portable) IMPRESSION: OG tube placement in the post bulbar duodenum. Electronically Signed: Bud Siddiqui MD at 17:43 EDT , Service support ,
[2021-06-29] MEDS: Piperacil/Tazobactam 3.375 GM/50 ML ML IV (17:12)
[2021-06-29 17:39] LABS: Reflex Lactate? Y
--- NOTE | 2021-06-29 18:04 | RAD_ITS ---
EXAM: XR ABDOMEN, 1 VIEW : 1960 CLINICAL INDICATION: OG placement -- OG pulled back TECHNIQUE: Frontal supine view of the abdomen/pelvis. This report was created using [employer] report generation technology. COMPARISON: KUB from same date. FINDINGS: LOWER THORAX: No acute pathology. GASTROINTESTINAL TRACT: Unremarkable. Non-obstructive. No bowel or stomach distention. ORGANS: Unremarkable as visualized. No organomegaly. No abnormal calcifications. BONES/JOINTS: No acute pathology. SOFT TISSUES: No acute pathology. TUBES, LINES AND DEVICES: Enteric tube with tip in the distal stomach/first portion of the duodenum. RAD/Abdomen Single View (Portable) IMPRESSION: Enteric tube with tip in the distal stomach/first portion of the duodenum. at 2315 Reported and signed by: Sukhjinder Tubbs MD Electronically Signed: Sukhjinder Tubbs MD at 23:15 EDT Tel , Service support ,
--- NOTE | 2021-06-29 18:18 | RAD_ITS ---
STUDY: X-RAY - ABDOMEN/PELVIS REASON FOR EXAM: Male, 60 years old. OG readjustment #5 TECHNIQUE: Single AP view of the abdomen / pelvis. COMPARISON: None. FINDINGS: An OG tube is seen its tip is within the gastric lumen. There is an unremarkable bowel gas pattern. There is no demonstrated free abdominal air. The visualized liver, spleen and kidneys are grossly normal in size and morphology. Normal soft tissue structures. Normal visualized osseous structures. RAD/Abdomen Single View IMPRESSION: An OG tube in good position. Electronically Signed: Jeferson Evans MD at 23:58 EDT Tel , Service support ,
--- NOTE | 2021-06-29 18:18 | RAD_ITS ---
EXAM: XR ABDOMEN, 1 VIEW : 1960 CLINICAL INDICATION: OG tube adjustment TECHNIQUE: Frontal supine view of the abdomen/pelvis. This report was created using [employer] report generation technology. COMPARISON: KUB from same date FINDINGS: LOWER THORAX: No acute pathology. GASTROINTESTINAL TRACT: Unremarkable. Non-obstructive. No bowel or stomach distention. ORGANS: Unremarkable as visualized. No organomegaly. No abnormal calcifications. BONES/JOINTS: No acute pathology. SOFT TISSUES: No acute pathology. TUBES, LINES AND DEVICES: Enteric tube with tip in the distal stomach. RAD/Abdomen Single View IMPRESSION: Enteric tube with tip in the distal stomach. at 2316 Reported and signed by: Sukhjinder Tubbs MD Electronically Signed: Sukhjinder Tubbs MD at 23:15 EDT Tel , Service support ,
[2021-06-29 19:01] LABS: Lactic Acid 1.2 mmol/L (0.4-1.9)
[2021-06-29] MEDS: Propofol 10MG/Ml 1,000 MG/100 ML Bottle 13.8 MG CONT INF (19:44)
[2021-06-29] MEDS: Enoxaparin 40 MG/0.4 ML Syringe SC (21:16)
[2021-06-29] MEDS: Ipratropium/Albuterol Sulfate 3 ML AMPUL.NEB INHALATION (22:35)
[2021-06-30] VITALS (34 sets, daily range): BP systolic 79–124; BP diastolic 61–96; PULSE 85–105; RESP 12–27; TEMP 36.9–37.9; O2SAT 88–96
[2021-06-30] MEDS: Piperacil/Tazobactam 3.375 GM/50 ML ML IV ×3 (00:17→16:58)
[2021-06-30] MEDS: Propofol 10MG/Ml 1,000 MG/100 ML Bottle 13.8 MG CONT INF ×2 (02:31→09:50)
[2021-06-30] MEDS: Ipratropium/Albuterol Sulfate 3 ML AMPUL.NEB INHALATION ×7 (02:38→22:38)
[2021-06-30 03:51] LABS: Absolute Lymphocyte Count 0.61 X10^3/uL (0.83-4.51); Absolute Neutrophil Count 8.7 X10^3/uL (2.0-7.7); Basophil# 0.01 X10^3/uL; Basophil% 0.1 % (0-1); Eosinophil# 0.01 X10^3/uL; Eosinophils% 0.1 % (0-5); Hematocrit 42.6 % (40-54); Hemoglobin 13.8 g/dL (13.0-16.5); Lymphocyte # 0.61 X10^3/ul (0.83-4.51); Lymphocyte % 6.4 % (19-41); Mean Corp Hgb Conc 32.4 g/dL (32-36); Mean Corpuscular Hgb 29.6 pg (27.0-32.0); Mean Corpuscular Volume 91.2 fL (80-94); Mean Platelet Vol. 9.2 fl (6.2-12.0); Monocyte# 0.22 X10^3/uL; Monocyte% 2.3 % (0-10); NRBC Flagged by Analyzer 0 % (0-5); Neutrophil # 8.65 X10^3/uL (2.7-7.7); Neutrophil % 90.5 % (47-70); Platelet Count 273 K/mm3 (150-450); RBC Distribution Width CV 13.5 % (11.6-14.6); RBC Distribution Width SD 45.9 fl (35.1-43.9); Red Blood Count 4.67 M/mm3 (4.6-6.2); White Blood Count 9.6 K/mm3 (4.4-11.0)
[2021-06-30 04:13] LABS: ALB/GLOB Ratio 0.9 RATIO (0.9-2.4); AST(SGOT) 17 U/L (15-37); Alanine Aminotransfer ALT/SGPT 17 U/L (16-61); Albumin, Serum 3.3 g/dL (3.2-5.0); Alkaline Phosphatase 106 U/L (45-117); Anion Gap 8 (5-15); BUN 23 mg/dL (7-18); BUN/Creat Ratio 19.5 RATIO (10-20); Calcium,Total 8.4 mg/dL (8.5-10.1); Chloride 104 mmol/L (98-107); Creatinine, Serum 1.18 mg/dL (0.70-1.30); EST Glomerular Filtration Rate 67 mL/min (>60); Est Glom Filt Rate - Afr Amer 81 mL/min (>60); Estimated Creatinine Clearance 62.26 ml/min; Globulin 3.7 g/dL (2.2-4.2); Glucose 145 mg/dL (74-106); Potassium 5.5 mmol/L (3.5-5.1); Sodium Level 136 mmol/L (136-145)
--- NOTE | 2021-06-30 07:41 | PCM.PN.INT ---
Assessment & Plan Assessment/Plan (1) Acute on chronic respiratory failure with hypoxia and hypercapnia: (2) Asthma exacerbation in COPD: (3) Bronchiectasis: QUALIFIERS: Bronchiectasis type: uncomplicated Qualified Code(s): J47.9 - Bronchiectasis, uncomplicated PLAN: RECOMMENDATIONS: 1. Continue current mechanical ventilation settings. Wean oxygen as tolerated 2. Spontaneous breathing and awakening trials per protocol starting tomorrow 3. Empiric Zosyn pending cultures 4. Propofol and fentanyl as needed for sedation and pain control 5. Okay to start tube feeds IMPRESSIONS: 1. Acute on chronic respiratory failure secondary to probable COPD/asthma/bronchiectasis exacerbation Patient does not have any significant infiltrates noted on chest x-ray. However, patient does have a significant amount of wheezing, left greater than right. Patient will be initiated on bronchodilators and steroids. ABG shows adequate oxygenation and ventilation on the current settings. Continue to wean oxygen as tolerated. Viral panel and COVID-19 is negative. Agree with empiric antibiotics in the interim pending culture data. Spontaneous breathing and awakening trials per protocol. Propofol and fentanyl as needed to help with vent synchrony. Await sputum culture. Elevated lactic acid likely secondary to global hypoxemia and has normalized. Low clinical suspicion for septic shock 2. History of ischemic cardiomyopathy/delayed presentation/nonvaccinated status/history of PE/hyperlipidemia Complicates care, management, recovery and prognosis. Okay to continue with baseline medications for now. Patient does not appear to be fluid overloaded in my opinion. Okay to continue with baseline medications for now. TIME: 32 minutes critical care time spent addressing patient's acute on chronic hypoxic respiratory failure, review of all data and collaboration with care team (5:30 AM to 6:30 AM) Subjective Subjective Patient did well overnight. No acute issues were reported. Patient overall has somewhat stabilized. No pressors have been required. Patient has been able to come down on FiO2. Good urine output was reported. Objective Data Objective Data Vital Signs: Vital Signs Temp Pulse Resp BP Pulse Ox 36.9 C 86 17 124/81 H 93 06/30/21 04:00 06/30/21 07:00 06/30/21 07:00 06/30/21 07:00 06/30/21 07:00 Oxygen Flow Rate (L/min) 100 Oxygen Delivery Method Mechanical Ventilator Weight: 64.7 kg Body Mass Index (BMI) 21.8 Intake & Output: Intake and Output for Last 24 Hours 06/28/21 06/29/21 06/30/21 23:59 23:59 23:59 Intake Total 758.83 / 782.13 210.86 / 210.86 Output Total 200 / 350 150 / 150 Balance 558.83 / 432.13 60.86 / 60.86 Lab / Micro Data Result Diagrams: 06/30/21 03:45 06/30/21 03:45 Labs: Laboratory Results - last 24 hr 06/29/21 13:15: WBC 11.4 H, RBC 5.17, Hgb 15.4, Hct 48.4, MCV 93.6, MCH 29.8, MCHC 31.8 L, RDW Std Deviation 47.1 H, RDW Coeff of [place] 13.5, Plt Count 335, MPV 9.7, Immature Gran % (Auto) 0.900, Neut % (Auto) 56.8, Lymph % (Auto) 24.0, [place] % (Auto) 11.2 H, Eos % (Auto) 6.4 H, Baso % (Auto) 0.7, Absolute Neuts (auto) 6.5, Absolute Lymphs (auto) 2.74, Nucleated RBC % 0 06/29/21 13:15: D-Dimer Quant (PE/DVT) 0.50 H 06/29/21 13:15: Sodium 139, Potassium 4.6, Chloride 105, Carbon Dioxide 28.0, Anion Gap 6, BUN 10, Creatinine 1.01, Estim Creat Clear Calc 73.29, Est GFR (MDRD) Af Amer 97, Est GFR (MDRD) Non-Af 80, BUN/Creatinine Ratio 9.9 L, Glucose 139 H, Calcium 8.9, Troponin I High Sens 10 06/29/21 13:15: Lactic Acid 3.8 H* 06/29/21 13:15: B-Natriuretic Peptide 36.5 06/29/21 18:20: Lactic Acid 1.2 06/30/21 03:45: WBC 9.6, RBC 4.67, Hgb 13.8, Hct 42.6, MCV 91.2, MCH 29.6, MCHC 32.4, RDW Std Deviation 45.9 H, RDW Coeff of [place] 13.5, Plt Count 273, MPV 9.2, Immature Gran % (Auto) 0.600, Neut % (Auto) 90.5 H, Lymph % (Auto) 6.4 L, [place] % (Auto) 2.3, Eos % (Auto) 0.1, Baso % (Auto) 0.1, Absolute Neuts (auto) 8.7 H, Absolute Lymphs (auto) 0.61 L, Nucleated RBC % 0 06/30/21 03:45: Sodium 136, Potassium 5.5 H, Chloride 104, Carbon Dioxide 24.0, Anion Gap 8, BUN 23 H, Creatinine 1.18, Estim Creat Clear Calc 62.26, Est GFR (MDRD) Af Amer 81, Est GFR (MDRD) Non-Af 67, BUN/Creatinine Ratio 19.5, Glucose 145 H, Calcium 8.4 L, Magnesium 2.0, Total Bilirubin 0.50, AST 17, ALT 17, Alkaline Phosphatase 106, Total Protein 7.0, Albumin 3.3, Globulin 3.7, Albumin/Globulin Ratio 0.9 Micro: Microbiology 06/29/21 15:42 Mucosa - Nose Respiratory Panel (PCR) - Final 06/29/21 13:15 Nasal Secretion SARS-CoV-2 Antigen (Rapid) - Final ABG Data ABG results: ABG 06/29/21 06/29/21 13:20 15:34 Specimen Type ART ART Sample Site R Radial R Radial pH 7.08 L* 7.33 L Bicarbonate Actual 26.6 H 24.1 Total CO2 29 26 Base Excess -3 L -2 O2 Saturation 73 L 99 O2 % 100 70 ABG pCO2 89.0 H* 45.9 H ABG pO2 55 L 138 H Maykel Test Positive O2 Delivery Device BiPAP Adult Vent Vent Mode AC POC PEEP 10 Crit Call To/Read Back Yes Blood Gas Notified Whom Dr. [place] Blood Gas Notified Time 1320 Radiography Diagnostic Testing: Radiology Impression Chest X-Ray 06/29/21 13:13 IMPRESSION: Emphysema without pneumonia or atelectasis Electronically Signed: Zain Lynn MD at 13:26 EDT Tel , Service support , Chest X-Ray 06/29/21 13:58 IMPRESSION: 1. Interval placement of endotracheal tube with the tip above the luli. 2. Interval placement of nasogastric tube with the tip likely in the cardia of the stomach and the side-port in the distal esophagus. 3. No active pulmonary disease. Electronically Signed: Zain Lynn MD at 14:32 EDT Tel , Service support , KUB X-Ray 06/29/21 16:30 IMPRESSION: OG tube placement in the post bulbar duodenum. Electronically Signed: Bud Siddiqui MD at 17:43 EDT , Service support , KUB X-Ray 06/29/21 18:04 IMPRESSION: Enteric tube with tip in the distal stomach/first portion of the duodenum. at 2315 Reported and signed by: Sukhjinder Tubbs MD Electronically Signed: Sukhjinder Tubbs MD at 23:15 EDT Tel , Service support , KUB X-Ray 06/29/21 18:18 IMPRESSION: Enteric tube with tip in the distal stomach. at 2316 Reported and signed by: Sukhjinder Tubbs MD Electronically Signed: Sukhjinder Tubbs MD at 23:15 EDT Tel , Service support , KUB X-Ray 06/29/21 18:18 IMPRESSION: An OG tube in good position. Electronically Signed: Jeferson Evans MD at 23:58 EDT Tel , Service support , Rhythm Strip Rhythm Strip: Sinus Tach Rate: 121 Ectopy: None Physical Exam Const Constitutional Narrative: Good vent synchrony General Appearance: comfortable, well kempt, well developed, appears older than stated age, intubated and patient mechanically ventilated Exam Limitations: no limitations HEENT normocephalic, head/scalp atraumatic, hearing grossly normal bilaterally and oropharynx normal Mouth: endotracheal tube in place and OG tube in place Eyes PERRL and EOMs intact bilaterally Neck General: normal visual inspection and trachea midline Lymph Lymphatic: no lymphadenopathy noted Chest inspection of chest normal and palpation of chest normal Resp Auscultation: wheezes left lower and left upper and diminished lung sounds; Negative for rales or rhonchi Percussion: Negative for dullness Cardio regular rhythm, S1 normal heart sound, S2 normal heart sound, no murmurs, no rub and no gallops Cardio Narrative: Tachycardic GI normal to inspection, nondistended, normoactive bowel sounds Extremity normal to inspection, normal capillary refill and no pedal edema Peripheral Pulses: Yes pulses 2+ throughout Skin no rashes or lesions noted General Skin Exam: no breakdown Neuro CN's II-XII intact bilaterally, moves all extremities and no focal motor deficits Sensorium / Orientation: sedated on vent RASS: 0 Psych mental status grossly normal Charges/Coding Procedures Hospitalists Procedures: 87019 Critial Care 1st Hr
[2021-06-30] MEDS: Loratadine 10 MG Tablet PO (09:53)
[2021-06-30] MEDS: Enoxaparin 40 MG/0.4 ML Syringe SC (09:53)
[2021-06-30] MEDS: Aspirin 81 MG TAB.CHEW PO (09:53)
[2021-06-30] MEDS: Atorvastatin Calcium 20 MG Tablet PO (09:53)
--- NOTE | 2021-06-30 10:12 | PCM.PN.HOSP ---
Subjective Subjective Follow-up on acute on chronic respiratory failure: Patient was seen and examined. Intubated, on sedation. No acute events overnight Objective Data Objective Data Vital Signs: Vital Signs Temp Pulse Resp BP Pulse Ox 98.9 F 98 18 107/76 93 06/30/21 10:00 06/30/21 10:00 06/30/21 10:00 06/30/21 10:00 06/30/21 10:00 Oxygen Flow Rate (L/min) 100 Oxygen Delivery Method Mechanical Ventilator Weight: 64.7 kg Body Mass Index (BMI) 21.8 Intake & Output: Intake and Output for Last 24 Hours 06/28/21 06/29/21 06/30/21 23:59 23:59 23:59 Intake Total 758.83 / 782.13 263.12 / 263.12 Output Total 200 / 350 215 / 215 Balance 558.83 / 432.13 48.12 / 48.12 Lab / Micro Data Result Diagrams: 06/30/21 03:45 06/30/21 03:45 Labs: Laboratory Results - last 24 hr 06/29/21 13:15: WBC 11.4 H, RBC 5.17, Hgb 15.4, Hct 48.4, MCV 93.6, MCH 29.8, MCHC 31.8 L, RDW Std Deviation 47.1 H, RDW Coeff of [place] 13.5, Plt Count 335, MPV 9.7, Immature Gran % (Auto) 0.900, Neut % (Auto) 56.8, Lymph % (Auto) 24.0, [place] % (Auto) 11.2 H, Eos % (Auto) 6.4 H, Baso % (Auto) 0.7, Absolute Neuts (auto) 6.5, Absolute Lymphs (auto) 2.74, Nucleated RBC % 0 06/29/21 13:15: D-Dimer Quant (PE/DVT) 0.50 H 06/29/21 13:15: Sodium 139, Potassium 4.6, Chloride 105, Carbon Dioxide 28.0, Anion Gap 6, BUN 10, Creatinine 1.01, Estim Creat Clear Calc 73.29, Est GFR (MDRD) Af Amer 97, Est GFR (MDRD) Non-Af 80, BUN/Creatinine Ratio 9.9 L, Glucose 139 H, Calcium 8.9, Troponin I High Sens 10 06/29/21 13:15: Lactic Acid 3.8 H* 06/29/21 13:15: B-Natriuretic Peptide 36.5 06/29/21 18:20: Lactic Acid 1.2 06/30/21 03:45: WBC 9.6, RBC 4.67, Hgb 13.8, Hct 42.6, MCV 91.2, MCH 29.6, MCHC 32.4, RDW Std Deviation 45.9 H, RDW Coeff of [place] 13.5, Plt Count 273, MPV 9.2, Immature Gran % (Auto) 0.600, Neut % (Auto) 90.5 H, Lymph % (Auto) 6.4 L, [place] % (Auto) 2.3, Eos % (Auto) 0.1, Baso % (Auto) 0.1, Absolute Neuts (auto) 8.7 H, Absolute Lymphs (auto) 0.61 L, Nucleated RBC % 0 06/30/21 03:45: Sodium 136, Potassium 5.5 H, Chloride 104, Carbon Dioxide 24.0, Anion Gap 8, BUN 23 H, Creatinine 1.18, Estim Creat Clear Calc 62.26, Est GFR (MDRD) Af Amer 81, Est GFR (MDRD) Non-Af 67, BUN/Creatinine Ratio 19.5, Glucose 145 H, Calcium 8.4 L, Magnesium 2.0, Total Bilirubin 0.50, AST 17, ALT 17, Alkaline Phosphatase 106, Total Protein 7.0, Albumin 3.3, Globulin 3.7, Albumin/Globulin Ratio 0.9 Micro: Microbiology 06/29/21 15:42 Mucosa - Nose Respiratory Panel (PCR) - Final 06/29/21 13:15 Nasal Secretion SARS-CoV-2 Antigen (Rapid) - Final ABG Data ABG results: ABG 06/29/21 06/29/21 13:20 15:34 Specimen Type ART ART Sample Site R Radial R Radial pH 7.08 L* 7.33 L Bicarbonate Actual 26.6 H 24.1 Total CO2 29 26 Base Excess -3 L -2 O2 Saturation 73 L 99 O2 % 100 70 ABG pCO2 89.0 H* 45.9 H ABG pO2 55 L 138 H Maykel Test Positive O2 Delivery Device BiPAP Adult Vent Vent Mode AC POC PEEP 10 Crit Call To/Read Back Yes Blood Gas Notified Whom Dr. [place] Blood Gas Notified Time 1320 Radiography Diagnostic Testing: Radiology Impression Chest X-Ray 06/29/21 13:13 IMPRESSION: Emphysema without pneumonia or atelectasis Electronically Signed: Zain Lynn MD at 13:26 EDT Tel , Service support , Chest X-Ray 06/29/21 13:58 IMPRESSION: 1. Interval placement of endotracheal tube with the tip above the luli. 2. Interval placement of nasogastric tube with the tip likely in the cardia of the stomach and the side-port in the distal esophagus. 3. No active pulmonary disease. Electronically Signed: Zain Lynn MD at 14:32 EDT Tel , Service support , KUB X-Ray 06/29/21 16:30 IMPRESSION: OG tube placement in the post bulbar duodenum. Electronically Signed: Bud Siddiqui MD at 17:43 EDT , Service support , KUB X-Ray 06/29/21 18:04 IMPRESSION: Enteric tube with tip in the distal stomach/first portion of the duodenum. at 2315 Reported and signed by: Sukhjinder Tubbs MD Electronically Signed: Sukhjinder Tubbs MD at 23:15 EDT Tel , Service support , KUB X-Ray 06/29/21 18:18 IMPRESSION: Enteric tube with tip in the distal stomach. at 2316 Reported and signed by: Sukhjinder Tbubs MD Electronically Signed: Sukhjinder Tubbs MD at 23:15 EDT Tel , Service support , KUB X-Ray 06/29/21 18:18 IMPRESSION: An OG tube in good position. Electronically Signed: Jeferson Evans MD at 23:58 EDT Tel , Service support , Rhythm Strip Rhythm Strip: Sinus Tach Rate: 121 Ectopy: None Physical Exam Narrative Physical exam: General: Sedated, intubated HEENT: Atraumatic Oral: Moist Mucosa Neck: Supple Lungs: Diminished to auscultation, wheezes++ Cardiovascular: HS I+II, regular, no murmurs Abdomen: Bowel Sounds Present, Soft, Non Tender Extremities: No edema Assessment & Plan Assessment/Plan (1) COPD exacerbation: (2) Acute respiratory failure: QUALIFIERS: Respiratory failure complication: hypoxia Qualified Code(s): J96.01 - Acute respiratory failure with hypoxia (3) Acute on chronic respiratory failure with hypoxemia: (4) Atherosclerotic heart disease of [place] coronary artery without angina pectoris: QUALIFIERS: [place] vs. transplanted heart: [place] heart Qualified Code(s): I25.10 - Atherosclerotic heart disease of [place] coronary artery without angina pectoris (5) COPD (chronic obstructive pulmonary disease): QUALIFIERS: COPD type: COPD with acute exacerbation Qualified Code(s): J44.1 - Chronic obstructive pulmonary disease with (acute) exacerbation PLAN: 1. Acute on chronic combined respiratory failure secondary to acute COPD/asthma exacerbation/probable aspiration pneumonia Patient has history of underlying Remains intubated, on mechanical ventilator Awaiting chest x-ray did not show any infiltrate Patient is on IV Solu-Medrol, breathing treatments, IV Zosyn for probable aspiration pneumonia Equipment Validation Specialist following 2. CAD, stable, continue on dual antiplatelet, statin 3. DVT prophylaxis with Lovenox subcu 4. GI prophylaxis with PPI Charges/Coding Visit Charges Inpatient E&M: 01678 [facility] Hosp L3
[2021-06-30] MEDS: Chlorhexidine 15 ML PO ×2 (10:43→22:04)
[2021-06-30] MEDS: Vital AF 1.2 Cal Liquid 1,000 ML 20 ML GT (11:59)
--- NOTE | 2021-06-30 12:35 | CASEMGMT ---
MARION DAMON called daughter TOYA Oneil, for initial transition planning/care coordination assessment as patient is unable to participate and is on vent at this time. RN NELSON introduced self and role at [facility]. Daughter willing to participate in assessment and is able to answer all questions appropriately. Care providers, pharmacy, and demographics verified. Daughter wishes for patient to discharge home, will monitor for need for home oxygen and therapy at discharge . Rockyhtsimi states she has no further needs or concerns at this time. CM to follow for discharge planning needs that may arise. PCP: Jefe Specialists: [employer] Preferred Pharmacy: [facility] Insurance: AMA [place] Prescription Benefit: yes Living Will/HPOA: Clarice Andrade daughter LNOK: daughter, girlfriend Living Arrangements: Patient lives with girlfriend in a first floor apartment with 2 steps to enter the home. Patient was independent prior to hospitalization Transportation: self/girlfriend/daughter DME/HHC: Patient has nebulizer. No previous HHC or SNF. Will monitor for home oxygen and therapy at discharge. Disposition Plan: TBD will monitor course of treatment and progress with therpay. Eliana ESCUDERO, RN, CM
[2021-06-30] MEDS: Propofol 10MG/Ml 1,000 MG/100 ML Bottle 15.8 MG CONT INF ×2 (14:45→21:00)
[2021-06-30] MEDS: Clopidogrel Bisulfate 75 MG Tablet PO (22:04)
[2021-06-30] MEDS: Montelukast 10 MG Tablet PO (22:04)
[2021-06-30] MEDS: 0.9% Saline Lock 10 ML Syringe IV (22:05)
[2021-07-01] VITALS (29 sets, daily range): BP systolic 81–138; BP diastolic 60–96; PULSE 82–112; RESP 11–22; TEMP 36.8–37.7; O2SAT 88–99
[2021-07-01] MEDS: Piperacil/Tazobactam 3.375 GM/50 ML ML IV ×3 (03:00→17:17)
[2021-07-01] MEDS: Chlorhexidine 15 ML PO (03:22)
[2021-07-01] MEDS: Propofol 10MG/Ml 1,000 MG/100 ML Bottle 11.8 MG CONT INF (04:00)
[2021-07-01] MEDS: Ipratropium/Albuterol Sulfate 3 ML AMPUL.NEB INHALATION ×6 (04:17→23:28)
[2021-07-01 06:15] LABS: Base Excess 3 mmol/L (-2 to +2); Bicarbonate 27.3 mmol/L (22-26); Blood Gas Specimen Type ART; FI02 32; Mode CPAP/PS; O2 Delivery Device Adult Vent; PEEP 5; PO2 56 mmHG (75-100); PS 5; SITE R Brach; SO2 89 % (95-99); Total Carbon Dioxide 29 mmol/L; pCO2 43.5 mmHg (35-45); pH 7.41 (7.35-7.45)
--- NOTE | 2021-07-01 06:25 | PCM.PN.INT ---
Assessment & Plan Assessment/Plan (1) Acute on chronic respiratory failure with hypoxia and hypercapnia: (2) Asthma exacerbation in COPD: (3) Bronchiectasis: QUALIFIERS: Bronchiectasis type: uncomplicated Qualified Code(s): J47.9 - Bronchiectasis, uncomplicated PLAN: RECOMMENDATIONS: 1. Proceed with a trial of extubation this morning. 2. Once extubated, wean supplemental oxygen to maintain saturations at or above 90%. 3. Bedside swallow evaluation and dietary advancement. 4. Continue scheduled bronchodilator therapy along with IV steroids. 5. Continue empiric antimicrobials. 6. Encourage incentive spirometer use and mobilize patient as tolerated. IMPRESSIONS: 1. Acute on chronic respiratory failure secondary to probable COPD/asthma/bronchiectasis exacerbation The patient has a known history of asthma/COPD overlap and is on a triple therapy inhaler regimen at his baseline. The patient is also a daily smoker. The patient presented to the hospital in an acute exacerbation and is currently growing alpha hemolytic Streptococcus on sputum culture. Although the patient was intubated, he passed his spontaneous breathing trial this morning and is doing well from a respiratory perspective. Therefore, we will proceed with extubation. Once extubated, supplemental oxygen will be weaned to maintain saturations at or above 90%. A bedside swallow evaluation can be completed and his diet advanced accordingly. The patient will be maintained on scheduled bronchodilators and IV steroids. Antimicrobials will be continued, pending finalized culture results. Encourage incentive spirometer use and mobilize patient as tolerated. 2. History of ischemic cardiomyopathy/delayed presentation/nonvaccinated status/history of PE/hyperlipidemia Complicates care, management, recovery and prognosis. Okay to continue with baseline medications for now. TIME: 33 minutes of critical care time, independent of procedures, was spent addressing the patient's acute on chronic respiratory failure secondary to COPD/asthma exacerbation, review of all data and collaboration with care team. Subjective Subjective The patient was seen and examined at the bedside this morning. Events from the last 24 hours have been reviewed. The patient currently has a low-grade fever, but remains otherwise hemodynamically stable. He is currently doing well on a spontaneous breathing trial with an FiO2 requirement of 40%. He is alert and appropriately interactive. The patient is currently documented to be overall net +1.8 L for the hospitalization. ABG from this morning revealed a pH of 7.4 with a PCO2 of 43 and PO2 of 56. The patient remains on antimicrobials, IV steroids and scheduled bronchodilators. Objective Data Objective Data The patient's most recent lab work, culture data and imaging studies have all been personally reviewed. Sputum culture dated June 29 is growing alpha hemolytic Streptococcus. Vital Signs: Vital Signs Temp Pulse Resp BP Pulse Ox 99.8 F H 89 11 L 110/96 H 95 07/01/21 02:00 07/01/21 04:21 07/01/21 05:00 07/01/21 04:00 07/01/21 04:18 Oxygen Flow Rate (L/min) 100 Oxygen Delivery Method Mechanical Ventilator Weight: 64.2 kg Body Mass Index (BMI) 21.8 Intake & Output: Intake and Output for Last 24 Hours 06/29/21 06/30/21 07/01/21 23:59 23:59 23:59 Intake Total 758.83 / 782.13 1409.45 / 1437.75 799.13 / 799.13 Output Total 200 / 350 745 / 745 150 / 150 Balance 558.83 / 432.13 664.45 / 692.75 649.13 / 649.13 Lab / Micro Data Attestation: I reviewed the patient's lab results. Result Diagrams: 07/01/21 04:40 07/01/21 04:40 Micro: Microbiology 06/29/21 15:25 Sputum, Induced/[place]uk[place] Gram Stain - Final 06/29/21 15:25 Sputum, Induced/Lukens Respiratory Culture - Preliminary Alpha Hemolytic Streptococcus 06/29/21 15:42 Mucosa - Nose Respiratory Panel (PCR) - Final 06/29/21 13:15 Nasal Secretion SARS-CoV-2 Antigen (Rapid) - Final ABG Data ABG results: ABG 07/01/21 06:12 Specimen Type ART Sample Site R Brach pH 7.41 Bicarbonate Actual 27.3 H Total CO2 29 Base Excess 3 H O2 Saturation 89 L O2 % 32 ABG pCO2 43.5 ABG pO2 56 L Maykel Test N/A O2 Delivery Device Adult Vent Vent Mode CPAP/PS POC PEEP 5 POC Pressure Suppt 5 Rhythm Strip Rhythm Strip: Sinus Tach Rate: 121 Ectopy: None Physical Exam Const alert and no apparent distress General Appearance: cooperative, intubated and patient mechanically ventilated Orientation / Consciousness: awake HEENT normocephalic and head/scalp atraumatic Mouth: endotracheal tube in place and OG tube in place Eyes PERRL, EOMs intact bilaterally and conjunctivae normal Neck supple General: trachea midline Chest inspection of chest normal Resp normal respiratory effort Auscultation: wheezes expiratory wheezes and throughout Cardio regular rate and regular rhythm GI normal to inspection, nondistended, normoactive bowel sounds Extremity no clubbing, cyanosis or edema Skin no rashes or lesions noted Neuro moves all extremities and no focal motor deficits Charges/Coding Procedures Hospitalists Procedures: 28050 Critial Care 1st Hr
--- NOTE | 2021-07-01 06:52 | NURSING ---
williams girlfriend will bring eye glasses and teeth to hospital
--- NOTE | 2021-07-01 08:42 | PCM.CONS.GEN ---
HPI Consult Data Date of Consult: 07/01/21 HPI Narrative HPI Narrative: CHIO DENT, is a 60 M who presents [facility] Medical History Atherosclerotic heart disease of [place] coronary artery without angina pectoris BPH (benign prostatic hyperplasia) CAD (coronary artery disease) COPD (chronic obstructive pulmonary disease) HLD (hyperlipidemia) Ischemic cardiomyopathy Old myocardial infarction Paroxysmal atrial tachycardia Paroxysmal ventricular tachycardia Premature ventricular contraction Presence of stent in coronary artery (~06/27/08) Septic shock Home Medications clopidogrel 75 mg PO QHS 06/16/13 [History Last Taken 05/13/19 20:00 75 mg] cholecalciferol (vitamin D3) 2,000 units PO QHS 03/25/16 [History Last Taken 05/13/19] omeprazole 40 mg PO DAILY 05/13/17 [History Last Taken 05/13/19 08:00] aspirin 81 mg PO DAILY@0800 06/20/17 [History Last Taken 05/13/19 08:00] cyanocobalamin (vitamin B-12) 1,000 mcg tablet 1,000 mcg PO QHS 10/15/17 [History Last Taken 05/13/19 20:00 1000 mcg] cetirizine 10 mg PO QHS 12/14/17 [History Last Taken 05/13/19 10 mg] mometasone-formoterol 2 puff IH BID 06/30/18 [History Last Taken 05/13/19 04:00] levocetirizine 5 mg tablet 5 mg PO DAILY 09/23/19 [History Last Taken Unknown] trazodone 50 mg tablet 75 mg PO QHS tab 09/23/19 [History Last Taken Unknown] atorvastatin 20 mg tablet 20 mg PO DAILY #90 tab 01/04/20 [Rx Last Taken Unknown] PEP device #1 ea 04/27/20 [Rx Last Taken Unknown] montelukast 10 mg tablet 10 mg PO QPM #30 tab 05/21/21 [Rx Last Taken Unknown] albuterol sulfate 90 mcg/actuation aerosol inhaler 2 puff INHALATION Q2H PRN #18 g 06/13/21 [Rx Last Taken Unknown] Allergy/AdvReac Type Severity Reaction Status Date / Time latex Allergy Rash Verified 06/29/21 13:13 varenicline tartrate Allergy Hives Verified 06/29/21 13:13 [From Chantix] aspirin AdvReac Upset Verified 06/29/21 13:13 Stomach Family History Father , age 50 CAD (coronary artery disease) Heart disease Myocardial infarction Mother Diabetes Brother Hypertension Surgical History History of hernia repair History of left hip replacement Presence of coronary angioplasty implant and graft (~06/27/08) Social History Smoking Status: Current every day smoker tobacco type: cigarettes alcohol intake: never substance use type: does not use caffeine: Yes Type: coffee Number of servings: 3 what type of physical activity do you participate in: walking frequency: daily duration: 45-60 minutes/day seatbelt use: always do you feel safe at home: Yes Lab / Micro Data Result Diagrams: 07/01/21 04:40 07/01/21 04:40 Micro: Microbiology 06/29/21 15:25 Sputum, Induced/Lukens Gram Stain - Final 06/29/21 15:25 Sputum, Induced/Lukens Respiratory Culture - Preliminary Alpha Hemolytic Streptococcus 06/29/21 15:42 Mucosa - Nose Respiratory Panel (PCR) - Final ABG Data ABG results: ABG 07/01/21 06:12 Specimen Type ART Sample Site R Brach pH 7.41 Bicarbonate Actual 27.3 H Total CO2 29 Base Excess 3 H O2 Saturation 89 L O2 % 32 ABG pCO2 43.5 ABG pO2 56 L Maykel Test N/A O2 Delivery Device Adult Vent Vent Mode CPAP/PS POC PEEP 5 POC Pressure Suppt 5 Rhythm Strip Rhythm Strip: Sinus Tach Rate: 121 Ectopy: None
[2021-07-01 09:02] LABS: Absolute Lymphocyte Count 0.57 X10^3/uL (0.83-4.51); Absolute Neutrophil Count 11.8 X10^3/uL (2.0-7.7); Basophil# 0.01 X10^3/uL; Basophil% 0.1 % (0-1); Differential Indicated SCAN CRITERIA MET; Hemoglobin 12.9 g/dL (13.0-16.5); Lymphocyte # 0.57 X10^3/ul (0.83-4.51); Lymphocyte % 4.2 % (19-41); Mean Corp Hgb Conc 32.3 g/dL (32-36); Mean Corpuscular Hgb 30.4 pg (27.0-32.0); Mean Corpuscular Volume 94.1 fL (80-94); Mean Platelet Vol. 10.2 fl (6.2-12.0); Monocyte# 1.27 X10^3/uL; Monocyte% 9.3 % (0-10); NRBC Flagged by Analyzer 0 % (0-5); Neutrophil # 11.75 X10^3/uL (2.7-7.7); POSITIVE DIFFERENTIAL YES; Platelet Count 264 K/mm3 (150-450); RBC Distribution Width CV 13.6 % (11.6-14.6); RBC Distribution Width SD 47.2 fl (35.1-43.9); Red Blood Count 4.25 M/mm3 (4.6-6.2); White Blood Count 13.7 K/mm3 (4.4-11.0)
[2021-07-01 09:11] LABS: ALB/GLOB Ratio 0.9 RATIO (0.9-2.4); AST(SGOT) 19 U/L (15-37); Alanine Aminotransfer ALT/SGPT 16 U/L (16-61); Albumin, Serum 3.2 g/dL (3.2-5.0); Alkaline Phosphatase 83 U/L (45-117); Anion Gap 6 (5-15); BUN 36 mg/dL (7-18); Calcium,Total 8.5 mg/dL (8.5-10.1); Chloride 99 mmol/L (98-107); Creatinine, Serum 1.16 mg/dL (0.70-1.30); EST Glomerular Filtration Rate 68 mL/min (>60); Est Glom Filt Rate - Afr Amer 83 mL/min (>60); Estimated Creatinine Clearance 62.26 ml/min; Globulin 3.4 g/dL (2.2-4.2); Glucose 144 mg/dL (74-106); Potassium 5.4 mmol/L (3.5-5.1); Protein, Total 6.6 g/dL (6.4-8.2); Sodium Level 135 mmol/L (136-145)
[2021-07-01 09:42] LABS: Differential Comment SCANNED
[2021-07-01] MEDS: Atorvastatin Calcium 20 MG Tablet PO (10:15)
[2021-07-01] MEDS: Loratadine 10 MG Tablet PO ×2 (10:15)
[2021-07-01] MEDS: Enoxaparin 40 MG/0.4 ML Syringe SC (10:15)
[2021-07-01] MEDS: Aspirin 81 MG TAB.CHEW PO (10:15)
--- NOTE | 2021-07-01 14:31 | PN.HOSP_ITS ---
Subjective Subjective Follow-up on acute on chronic respiratory failure: Patient was seen and examined. He was extubated this morning. He is on room air. Denied any worsening shortness of breath. Objective Data Objective Data Vital Signs: Vital Signs Temp Pulse Resp BP Pulse Ox 99.8 F H 94 17 113/68 92 07/01/21 13:00 07/01/21 13:00 07/01/21 13:00 07/01/21 13:00 07/01/21 13:00 Oxygen Flow Rate (L/min) 1 Oxygen Delivery Method Room Air Weight: 64.2 kg Body Mass Index (BMI) 21.8 Intake & Output: Intake and Output for Last 24 Hours 06/29/21 06/30/21 07/01/21 23:59 23:59 23:59 Intake Total 758.83 / 782.13 1409.45 / 1437.75 959.13 / 959.13 Output Total 200 / 350 745 / 745 150 / 150 Balance 558.83 / 432.13 664.45 / 692.75 809.13 / 809.13 Lab / Micro Data Result Diagrams: 07/01/21 04:40 07/01/21 04:40 Labs: Laboratory Results - last 24 hr 07/01/21 04:40: WBC 13.7 H, RBC 4.25 L, Hgb 12.9 L, Hct 40.0, MCV 94.1 H, MCH 30.4, MCHC 32.3, RDW Std Deviation 47.2 H, RDW Coeff of [place] 13.6, Plt Count 264, MPV 10.2, Immature Gran % (Auto) 0.400, Neut % (Auto) 86.0 H, Lymph % (Auto) 4.2 L, [place] % (Auto) 9.3, Eos % (Auto) 0.0, Baso % (Auto) 0.1, Absolute Neuts (auto) 11.8 H, Absolute Lymphs (auto) 0.57 L, Nucleated RBC % 0, Differential Comment SCANNED 07/01/21 04:40: Sodium 135 L, Potassium 5.4 H, Chloride 99, Carbon Dioxide 30.0, Anion Gap 6, BUN 36 H, Creatinine 1.16, Estim Creat Clear Calc 62.26, Est GFR (MDRD) Af Amer 83, Est GFR (MDRD) Non-Af 68, BUN/Creatinine Ratio 31.0 H, Glucose 144 H, Calcium 8.5, Total Bilirubin 0.30, AST 19, ALT 16, Alkaline Phosphatase 83, Total Protein 6.6, Albumin 3.2, Globulin 3.4, Albumin/Globulin Ratio 0.9 Micro: Microbiology 06/29/21 13:18 Blood Culture (Wb) #2 - Right Forearm Blood Culture - Preliminary No growth in 48 hours. 06/29/21 13:18 Blood Culture (Wb) - Anticubital Left Blood Culture - Preliminary No growth in 48 hours. 06/29/21 15:25 Sputum, Induced/Lukens Gram Stain - Final 06/29/21 15:25 Sputum, Induced/Lukens Respiratory Culture - Preliminary Alpha Hemolytic Streptococcus 06/29/21 15:42 Mucosa - Nose Respiratory Panel (PCR) - Final 06/29/21 13:15 Nasal Secretion SARS-CoV-2 Antigen (Rapid) - Final ABG Data ABG results: ABG 07/01/21 06:12 Specimen Type ART Sample Site R Brach pH 7.41 Bicarbonate Actual 27.3 H Total CO2 29 Base Excess 3 H O2 Saturation 89 L O2 % 32 ABG pCO2 43.5 ABG pO2 56 L Maykel Test N/A O2 Delivery Device Adult Vent Vent Mode CPAP/PS POC PEEP 5 POC Pressure Suppt 5 Rhythm Strip Rhythm Strip: Sinus Tach Rate: 121 Ectopy: None Physical Exam Narrative Physical exam: General: Alert oriented x3, not pale, not jaundiced, not on oxygen HEENT: Atraumatic Oral: Moist Mucosa Neck: Supple Lungs: Diminished to auscultation, wheezes++ Cardiovascular: HS I+II, regular, no murmurs Abdomen: Bowel Sounds Present, Soft, Non Tender Extremities: No edema Assessment & Plan Assessment/Plan (1) COPD exacerbation: (2) Acute respiratory failure: QUALIFIERS: Respiratory failure complication: hypoxia Qualified Code(s): J96.01 - Acute respiratory failure with hypoxia (3) Acute on chronic respiratory failure with hypoxemia: (4) Atherosclerotic heart disease of [place] coronary artery without angina pectoris: QUALIFIERS: [place] vs. transplanted heart: [place] heart Qualified Code(s): I25.10 - Atherosclerotic heart disease of [place] coronary artery with out angina pectoris (5) COPD (chronic obstructive pulmonary disease): QUALIFIERS: COPD type: COPD with acute exacerbation Qualified Code(s): J44.1 - Chronic obstructive pulmonary disease with (acute) exacerbation PLAN: 1. Acute on chronic combined respiratory failure secondary to acute COPD/asthma exacerbation/probable aspiration pneumonia Patient has history of underlying asthma/COPD Intubated on admission, extubated today 07/01/31 Admitting chest x-ray did not show any infiltrate Sputum cultures are growing alpha hemolytic strep Continue on IV Solu-Medrol, breathing treatments, IV Zosyn 2. CAD, stable, continue on dual antiplatelet, statin 3. DVT prophylaxis with Lovenox subcu 4. GI prophylaxis with PPI Charges/Coding Visit Charges Inpatient E&M: 16041 Subs Hosp L2
--- NOTE | 2021-07-01 16:11 | EKG12_ITS ---
Test Reason : PALPITATIONS Blood Pressure : / mmHG Vent. Rate : 095 BPM Atrial Rate : 095 BPM P-R Int : 116 ms QRS Dur : 080 ms QT Int : 354 ms P-R-T Axes : 068 006 016 degrees QTc Int : 444 ms Poor data quality, interpretation may be adversely affected Normal sinus rhythm Inferior infarct , age undetermined Abnormal ECG When compared with ECG of 29-JUN-2021 14:30, Premature ventricular complexes are no longer Present Nonspecific T wave abnormality now evident in Inferior leads Confirmed by PROSPER RICE, JOSE ([id number]), editor school photograph MARI LAWSON ([id number]) on 07/04/2021 12:27:12 P M Referred By: NOHEMY Confirmed By:GALDINO CHENG MD
--- NOTE | 2021-07-01 19:20 | PCS.PANDOC ---
PANDEMIC DOCUMENTATION INITIATED: Date: 07/01/2021 Time: 190
--- NOTE | 2021-07-01 19:57 | NURSING ---
pt states the antibiotic that is infusing is making him feel weird claims he's sweating and feels very hot. upon taking his temperature it reads 99.3. Upon turning down the room temperature this RN explained to the pt that the ordering DR will be in in the morning and that the need for the antibiotic probably outweighs the weird feeling he is experiencing. will continue to monitor for any signs of anaphylaxis.
[2021-07-01] MEDS: Clopidogrel Bisulfate 75 MG Tablet PO (21:24)
[2021-07-01] MEDS: Montelukast 10 MG Tablet PO (21:24)
[2021-07-01] MEDS: 0.9% Saline Lock 10 ML Syringe IV (21:26)
[2021-07-02] VITALS (8 sets, daily range): BP systolic 119–123; BP diastolic 82–88; PULSE 88–102; RESP 16–20; TEMP 36.7–37.3; O2SAT 90–95
[2021-07-02] MEDS: Piperacil/Tazobactam 3.375 GM/50 ML ML IV ×2 (00:03→08:39)
[2021-07-02] MEDS: Ipratropium/Albuterol Sulfate 3 ML AMPUL.NEB INHALATION ×2 (03:22→07:33)
[2021-07-02] MEDS: 0.9% Saline Lock 10 ML Syringe IV (05:26)
[2021-07-02 07:38] LABS: Absolute Lymphocyte Count 0.59 X10^3/uL (0.83-4.51); Absolute Neutrophil Count 11.5 X10^3/uL (2.0-7.7); Basophil# 0.01 X10^3/uL; Basophil% 0.1 % (0-1); Hematocrit 41.7 % (40-54); Hemoglobin 13.8 g/dL (13.0-16.5); Lymphocyte # 0.59 X10^3/ul (0.83-4.51); Lymphocyte % 4.6 % (19-41); Mean Corp Hgb Conc 33.1 g/dL (32-36); Mean Corpuscular Hgb 29.9 pg (27.0-32.0); Mean Corpuscular Volume 90.3 fL (80-94); Mean Platelet Vol. 9.3 fl (6.2-12.0); Monocyte# 0.76 X10^3/uL; Monocyte% 5.9 % (0-10); NRBC Flagged by Analyzer 0 % (0-5); Neutrophil # 11.52 X10^3/uL (2.7-7.7); Neutrophil % 88.8 % (47-70); POSITIVE DIFFERENTIAL YES; Platelet Count 255 K/mm3 (150-450); RBC Distribution Width CV 13.3 % (11.6-14.6); RBC Distribution Width SD 44.3 fl (35.1-43.9); Red Blood Count 4.62 M/mm3 (4.6-6.2)
[2021-07-02 07:42] LABS: Differential Indicated SCAN CRITERIA MET
[2021-07-02 07:47] LABS: ALB/GLOB Ratio 0.9 RATIO (0.9-2.4); AST(SGOT) 17 U/L (15-37); Alanine Aminotransfer ALT/SGPT 18 U/L (16-61); Albumin, Serum 3.2 g/dL (3.2-5.0); Alkaline Phosphatase 82 U/L (45-117); Anion Gap 7 (5-15); BUN 18 mg/dL (7-18); BUN/Creat Ratio 21.3 RATIO (10-20); Calcium,Total 8.5 mg/dL (8.5-10.1); Chloride 105 mmol/L (98-107); Creatinine, Serum 0.84 mg/dL (0.70-1.30); EST Glomerular Filtration Rate 99 mL/min (>60); Est Glom Filt Rate - Afr Amer 119 mL/min (>60); Estimated Creatinine Clearance 83.44 ml/min; Globulin 3.5 g/dL (2.2-4.2); Glucose 124 mg/dL (74-106); Potassium 4.2 mmol/L (3.5-5.1); Protein, Total 6.7 g/dL (6.4-8.2); Sodium Level 139 mmol/L (136-145)
[2021-07-02 08:19] LABS: Platelet Estimate ADEQUATE (ADEQ); Red Cell Morphology NORM C+C NORMAL (NORM C&C)
--- NOTE | 2021-07-02 08:25 | PCM.PN.INT ---
Assessment & Plan Assessment/Plan (1) Acute on chronic respiratory failure with hypoxia and hypercapnia: (2) Asthma exacerbation in COPD: (3) Bronchiectasis: QUALIFIERS: Bronchiectasis type: uncomplicated Qualified Code(s): J47.9 - Bronchiectasis, uncomplicated PLAN: RECOMMENDATIONS: 1. Okay to transition from Zosyn to p.o. Levaquin to complete a total of 7 days of therapy. 2. Continue scheduled bronchodilators and IV steroids. 3. At discharge, recommend prolonged prednisone taper. 4. Perform walking oximetry study prior to consideration for discharge home. 5. If the patient is able to ambulate in the hallway and maintaining appropriate oxygen saturations, he can likely be discharged home and follow-up in the pulmonary medicine clinic within 2 weeks. IMPRESSIONS: 1. Acute on chronic respiratory failure secondary to probable COPD/asthma/bronchiectasis exacerbation The patient has a known history of asthma/COPD overlap and is on a triple therapy inhaler regimen at his baseline. The patient is also a daily smoker. The patient presented to the hospital in an acute exacerbation. Although the patient was intubated initially, he was able to be liberated from mechanical ventilation on July 01 and is doing well from a respiratory perspective. He is currently maintaining appropriate oxygen saturations on room air. The patient will be continued on scheduled bronchodilators and steroids. Although no infectious etiology has yet to be identified, I would recommend that we transition him to Levaquin to complete a 7-day treatment course. At discharge, I would recommend a prolonged steroid taper. Perform walking oximetry study prior to consideration for discharge home. The patient should follow-up in the pulmonary medicine clinic within 2 weeks of discharge. 2. History of ischemic cardiomyopathy/delayed presentation/nonvaccinated status/history of PE/hyperlipidemia Complicates care, management, recovery and prognosis. Okay to continue with baseline medications for now. This note was generated with mth sense dictation software. It may contain incorrect words, spelling, and punctuation that were not noted in checking the note before signing. Subjective Subjective The patient was seen and examined at the bedside this morning. Events from the last 24 hours have been reviewed. The patient is currently afebrile, hemodynamically stable and maintaining appropriate oxygen saturations on room air. The patient has done well from a respiratory perspective following extubation yesterday. He remains on antimicrobials, scheduled bronchodilators and IV steroids. Objective Data Objective Data The patient's most recent lab work, culture data and imaging studies have all been personally reviewed. Sputum culture dated June 29 is growing alpha hemolytic Streptococcus. Vital Signs: Vital Signs Temp Pulse Resp BP Pulse Ox 98.0 F 89 20 H 119/82 H 95 07/02/21 03:20 07/02/21 07:00 07/02/21 03:22 07/02/21 03:20 07/02/21 03:20 Oxygen Flow Rate (L/min) 1 Oxygen Delivery Method Room Air Weight: 62.3 kg Body Mass Index (BMI) 21.8 Intake & Output: Intake and Output for Last 24 Hours 06/30/21 07/01/21 07/02/21 23:59 23:59 23:59 Intake Total 1409.45 / 1437.75 2119.13 / 2359.13 770 / 770 Output Total 745 / 745 1550 / 4375 5100 / 5100 Balance 664.45 / 692.75 569.13 / -201587 -4330 / -4330 Lab / Micro Data Attestation: I reviewed the patient's lab results. Result Diagrams: 07/02/21 07:20 07/02/21 07:20 Labs: Laboratory Results - last 24 hr 07/01/21 04:40: WBC 13.7 H, RBC 4.25 L, Hgb 12.9 L, Hct 40.0, MCV 94.1 H, MCH 30.4, MCHC 32.3, RDW Std Deviation 47.2 H, RDW Coeff of [place] 13.6, Plt Count 264, MPV 10.2, Immature Gran % (Auto) 0.400, Neut % (Auto) 86.0 H, Lymph % (Auto) 4.2 L, [place] % (Auto) 9.3, Eos % (Auto) 0.0, Baso % (Auto) 0.1, Absolute Neuts (auto) 11.8 H, Absolute Lymphs (auto) 0.57 L, Nucleated RBC % 0, Differential Comment SCANNED 07/01/21 04:40: Sodium 135 L, Potassium 5.4 H, Chloride 99, Carbon Dioxide 30.0, Anion Gap 6, BUN 36 H, Creatinine 1.16, Estim Creat Clear Calc 62.26, Est GFR (MDRD) Af Amer 83, Est GFR (MDRD) Non-Af 68, BUN/Creatinine Ratio 31.0 H, Glucose 144 H, Calcium 8.5, Total Bilirubin 0.30, AST 19, ALT 16, Alkaline Phosphatase 83, Total Protein 6.6, Albumin 3.2, Globulin 3.4, Albumin/Globulin Ratio 0.9 07/02/21 07:20: WBC 13.0 H, RBC 4.62, Hgb 13.8, Hct 41.7, MCV 90.3, MCH 29.9, MCHC 33.1, RDW Std Deviation 44.3 H, RDW Coeff of [place] 13.3, Plt Count 255, MPV 9.3, Immature Gran % (Auto) 0.600, Neut % (Auto) 88.8 H, Lymph % (Auto) 4.6 L, [place] % (Auto) 5.9, Eos % (Auto) 0.0, Baso % (Auto) 0.1, Absolute Neuts (auto) 11.5 H, Absolute Lymphs (auto) 0.59 L, Nucleated RBC % 0, Platelet Estimate ADEQUATE, RBC Morphology NORM C+C 07/02/21 07:20: Sodium 139, Potassium 4.2, Chloride 105, Carbon Dioxide 27.0, Anion Gap 7, BUN 18, Creatinine 0.84, Estim Creat Clear Calc 83.44, Est GFR (MDRD) Af Amer 119, Est GFR (MDRD) Non-Af 99, BUN/Creatinine Ratio 21.3 H, Glucose 124 H, Calcium 8.5, Total Bilirubin 0.50, AST 17, ALT 18, Alkaline Phosphatase 82, Total Protein 6.7, Albumin 3.2, Globulin 3.5, Albumin/Globulin Ratio 0.9 Micro: Microbiology 06/29/21 15:25 Sputum, Induced/Lukens Gram Stain - Final 06/29/21 15:25 Sputum, Induced/Lukens Respiratory Culture - Final 06/29/21 13:18 Blood Culture (Wb) #2 - Right Forearm Blood Culture - Preliminary No growth in 48 hours. 06/29/21 13:18 Blood Culture (Wb) - Anticubital Left Blood Culture - Preliminary No growth in 48 hours. 06/29/21 15:42 Mucosa - Nose Respiratory Panel (PCR) - Final 06/29/21 13:15 Nasal Secretion SARS-CoV-2 Antigen (Rapid) - Final Rhythm Strip Rhythm Strip: Sinus Tach Rate: 121 Ectopy: None Physical Exam Const alert and no apparent distress General Appearance: cooperative HEENT normocephalic, head/scalp atraumatic and moist oral mucous membranes Eyes PERRL and EOMs intact bilaterally Neck supple General: trachea midline Chest inspection of chest normal Resp normal respiratory effort and no use of accessory muscles Effort and Inspection: able to speak in complete sentences Auscultation: wheezes throughout Cardio regular rate and regular rhythm GI normal to inspection, nondistended, normoactive bowel sounds Extremity no clubbing, cyanosis or edema Skin no rashes or lesions noted Neuro moves all extremities and no focal motor deficits Psych cooperative and affect normal Charges/Coding Visit Charges Inpatient E&M: 15980 Subs Hosp L2
[2021-07-02] MEDS: Aspirin 81 MG TAB.CHEW PO (08:38)
[2021-07-02] MEDS: Atorvastatin Calcium 20 MG Tablet PO (08:38)
--- NOTE | 2021-07-02 10:37 | PCM.PN.HOSP ---
Objective Data Objective Data Vital Signs: Vital Signs Temp Pulse Resp BP Pulse Ox 99.2 F H 94 18 123/88 H 92 07/02/21 08:35 07/02/21 08:35 07/02/21 08:35 07/02/21 08:35 07/02/21 08:51 Oxygen Flow Rate (L/min) [ 0 AMBULATING on Room Air] Oxygen Flow Rate (L/min) [At 0 REST on Room Air] Oxygen Flow Rate (L/min) 1 Oxygen Delivery Method Room Air Weight: 62.3 kg Body Mass Index (BMI) 21.8 Intake & Output: Intake and Output for Last 24 Hours 06/30/21 07/01/21 07/02/21 23:59 23:59 23:59 Intake Total 1409.45 / 1437.75 2119.13 / 2359.13 770 / 770 Output Total 745 / 745 1550 / 4375 5100 / 5100 Balance 664.45 / 692.75 569.13 / -2015.87 -4330 / -4330 Lab / Micro Data Result Diagrams: 07/02/21 07:20 07/02/21 07:20 Labs: Laboratory Results - last 24 hr 07/02/21 07:20: WBC 13.0 H, RBC 4.62, Hgb 13.8, Hct 41.7, MCV 90.3, MCH 29.9, MCHC 33.1, RDW Std Deviation 44.3 H, RDW Coeff of [place] 13.3, Plt Count 255, MPV 9.3, Immature Gran % (Auto) 0.600, Neut % (Auto) 88.8 H, Lymph % (Auto) 4.6 L, [place] % (Auto) 5.9, Eos % (Auto) 0.0, Baso % (Auto) 0.1, Absolute Neuts (auto) 11.5 H, Absolute Lymphs (auto) 0.59 L, Nucleated RBC % 0, Platelet Estimate ADEQUATE, RBC Morphology NORM C+C 07/02/21 07:20: Sodium 139, Potassium 4.2, Chloride 105, Carbon Dioxide 27.0, Anion Gap 7, BUN 18, Creatinine 0.84, Estim Creat Clear Calc 83.44, Est GFR (MDRD) Af Amer 119, Est GFR (MDRD) Non-Af 99, BUN/Creatinine Ratio 21.3 H, Glucose 124 H, Calcium 8.5, Total Bilirubin 0.50, AST 17, ALT 18, Alkaline Phosphatase 82, Total Protein 6.7, Albumin 3.2, Globulin 3.5, Albumin/Globulin Ratio 0.9 Micro: Microbiology 06/29/21 15:25 Sputum, Induced/Lukens Gram Stain - Final 06/29/21 15:25 Sputum, Induced/Lukens Respiratory Culture - Final 06/29/21 13:18 Blood Culture (Wb) #2 - Right Forearm Blood Culture - Preliminary No growth in 48 hours. 06/29/21 13:18 Blood Culture (Wb) - Anticubital Left Blood Culture - Preliminary No growth in 48 hours. 06/29/21 15:42 Mucosa - Nose Respiratory Panel (PCR) - Final 06/29/21 13:15 Nasal Secretion SARS-CoV-2 Antigen (Rapid) - Final Rhythm Strip Rhythm Strip: Sinus Tach Rate: 121 Ectopy: None
--- NOTE | 2021-07-02 10:48 | PCM.DC ---
Discharge Instructions Diet Discharge Diet: No restrictions Activity Discharge Activity: Return to Normal Activity Follow Up Care Test Results: Test results from this visit will be discussed in further detail at your follow-up appointment, if applicable. Discharge Plan Admission Admit Date/Time: 06/29/21 14:30 Primary Reason for Your Visit: Acute resp failure/Acute asthma/COPD exacerbation Attending Provider: Michelle Ledbetter Primary Care Provider: Alexey Mayberry Consulting Providers: Bruce Devries ; Nic Weems ; Debbi Schaffer ARCHITECTURAL MODELER Instructions Additional Instructions / Restrictions: Complete your antibiotics and steroid. Continue to use any inhaler. Follow-up with pulmonology within 2 weeks. Discharge Orders/Prescriptions Prescriptions: New levofloxacin 750 mg tablet 750 mg PO DAILY 4 Days Qty: 4 RF: 0 prednisone 10 mg tablet See Taper mg PO DAILY 20 Days Qty: 16 RF: 0 Continued cyanocobalamin (vitamin B-12) 1,000 mcg tablet 1,000 mcg PO QHS RF: 0 levocetirizine 5 mg tablet 5 mg PO DAILY RF: 0 trazodone 50 mg tablet 75 mg PO QHS RF: 0 (DME) PEP device See Rx Instructions .ROUTE .MEDSUPPLY Qty: 1 RF: 0 clopidogrel 75 MG tablet 75 mg PO QHS RF: 0 cholecalciferol (vitamin D3) 1,000 UNIT tablet 2,000 units PO QHS RF: 0 omeprazole 20 MG capsule 40 mg PO DAILY RF: 0 aspirin 81 MG tablet,chewable 81 mg PO DAILY@0800 RF: 0 cetirizine 10 MG capsule 10 mg PO QHS RF: 0 mometasone-formoterol 8.8 GM HFA aerosol inhaler 2 puff IH BID RF: 0 atorvastatin 20 mg tablet 20 mg PO DAILY Qty: 90 RF: 3 montelukast 10 mg tablet 10 mg PO QPM Qty: 30 RF: 3 albuterol sulfate 90 mcg/actuation HFA aerosol inhaler 2 puff INHALATION Q2H PRN (Reason: Asthma) Qty: 18 RF: 0 Referrals / Follow Up: Alexey Mayberry MD [Primary Care Provider] - Within 2 Weeks Nic Weems DO [STAFF PHYSICIAN] - Within 2 Weeks Disposition Disposition (needs filled in before D/C Order can be placed): Home, Self Care
--- NOTE | 2021-07-02 10:54 | PCM.DC.SUM ---
Providers Date of Admission: 06/29/21 Date of Discharge: 07/02/21 Primary Care Physician: Dr. Alexey Mayberry MD Consultations 06/29/21 16:13 Consult: Mold Forms Builder / Pulmonary Medicine Routine Consulting Provider: [facility] Reason for Consult: acute hypoxic respiratory failure, COPD exacerbation EMERGENT Consult: No MD Notified: Yes Date Notified: 06/29/21 Time Notified: 14:34 Method of Notification: Verbal Reason For Visit: HYPOXIC HYPERCAPNIC RESPIRATORY FAILURE, COPD Diagnosis Discharge Diagnosis (1) Acute on chronic respiratory failure with hypoxia and hypercapnia: Status: Acute Code(s): J96.21 - Acute and chronic respiratory failure with hypoxia; J96.22 - Acute and chronic respiratory failure with hypercapnia (2) Asthma exacerbation in COPD: Status: Acute Code(s): J44.1 - Chronic obstructive pulmonary disease with (acute) exacerbation; J45.901 - Unspecified asthma with (acute) exacerbation (3) Bronchiectasis: Status: Acute Code(s): J47.9 - Bronchiectasis, uncomplicated Qualifiers: Bronchiectasis type: uncomplicated Qualified Code(s): J47.9 - Bronchiectasis, uncomplicated Medications at Discharge Home Medications clopidogrel 75 mg PO QHS 06/16/13 cholecalciferol (vitamin D3) 2,000 units PO QHS 03/25/16 omeprazole 40 mg PO DAILY 05/13/17 aspirin 81 mg PO DAILY@0800 06/20/17 cyanocobalamin (vitamin B-12) 1,000 mcg tablet 1,000 mcg PO QHS 10/15/17 cetirizine 10 mg PO QHS 12/14/17 mometasone-formoterol 2 puff IH BID 06/30/18 levocetirizine 5 mg tablet 5 mg PO DAILY 09/23/19 trazodone 50 mg tablet 75 mg PO QHS tab 09/23/19 atorvastatin 20 mg tablet 20 mg PO DAILY #90 tab 01/04/20 PEP device #1 ea 04/27/20 montelukast 10 mg tablet 10 mg PO QPM #30 tab 05/21/21 albuterol sulfate 90 mcg/actuation aerosol inhaler 2 puff INHALATION Q2H PRN #18 g 06/13/21 levofloxacin 750 mg PO DAILY 4 Days #4 tab 07/02/21 prednisone See Taper PO DAILY 20 Days #16 tab 07/02/21 Hospital Course Operations None Procedures None Summary of Care Provided Minutes Spent on Discharge: 45 Hospital Course: 60-year-old male with past medical history of severe asthma/COPD, not on oxygen who comes in with progressive shortness of breath and wheezing. Patient was feeling short of breath and drove himself to the local fire station where he was found to be in severe respiratory distress. He was started on CPAP and gave a breathing treatment. Patient was seen subsequently in the emergency department, was found to be tachypneic, tachycardic and hypoxic. He was subsequently intubated. He was admitted to ICU and started on IV steroids, breathing treatments. His chest x-ray did not show any significant infiltrate. Respiratory panel as well as sputum cultures and blood cultures were unremarkable. Patient was also started on empiric antibiotics. Patient was extubated on 07/01/21. He was on room air soon after extubation. He continued to do well. He remained wheezy but did not require oxygen even on ambulation. He was discharged on a prolonged prednisone taper as well as 5 more days of Levaquin. He will follow up with pulmonology in the outpatient within 1 to 2 weeks. Physical Exam Narrative Physical exam: General: Alert oriented x3, not pale, not jaundiced, not on oxygen HEENT: Atraumatic Oral: Moist Mucosa Neck: Supple Lungs: Diminished to auscultation, wheezes++ Cardiovascular: HS I+II, regular, no murmurs Abdomen: Bowel Sounds Present, Soft, Non Tender Extremities: No edema Weight / BMI Weight Weight: 62.3 kg Body Mass Index (BMI) 21.8 ABG / Lab / Microbiology Data Result Diagrams: 07/02/21 07:20 07/02/21 07:20 Laboratory: Laboratory Results - last 24 hr 07/02/21 07:20: WBC 13.0 H, RBC 4.62, Hgb 13.8, Hct 41.7, MCV 90.3, MCH 29.9, MCHC 33.1, RDW Std Deviation 44.3 H, RDW Coeff of [place] 13.3, Plt Count 255, MPV 9.3, Immature Gran % (Auto) 0.600, Neut % (Auto) 88.8 H, Lymph % (Auto) 4.6 L, [place] % (Auto) 5.9, Eos % (Auto) 0.0, Baso % (Auto) 0.1, Absolute Neuts (auto) 11.5 H, Absolute Lymphs (auto) 0.59 L, Nucleated RBC % 0, Platelet Estimate ADEQUATE, RBC Morphology NORM C+C 07/02/21 07:20: Sodium 139, Potassium 4.2, Chloride 105, Carbon Dioxide 27.0, Anion Gap 7, BUN 18, Creatinine 0.84, Estim Creat Clear Calc 83.44, Est GFR (MDRD) Af Amer 119, Est GFR (MDRD) Non-Af 99, BUN/Creatinine Ratio 21.3 H, Glucose 124 H, Calcium 8.5, Total Bilirubin 0.50, AST 17, ALT 18, Alkaline Phosphatase 82, Total Protein 6.7, Albumin 3.2, Globulin 3.5, Albumin/Globulin Ratio 0.9 Microbiology: Microbiology 06/29/21 15:25 Sputum, Induced/Lukens Gram Stain - Final 06/29/21 15:25 Sputum, Induced/Lukens Respiratory Culture - Final 06/29/21 13:18 Blood Culture (Wb) #2 - Right Forearm Blood Culture - Preliminary No growth in 48 hours. 06/29/21 13:18 Blood Culture (Wb) - Anticubital Left Blood Culture - Preliminary No growth in 48 hours. 06/29/21 15:42 Mucosa - Nose Respiratory Panel (PCR) - Final 06/29/21 13:15 Nasal Secretion SARS-CoV-2 Antigen (Rapid) - Final D/C Instructions Discharge Diet: No restrictions Meaningful Use Info Meaningful Use Diagnoses (Choose all that apply): None applicable Discharge Plan Admission Admit Date/Time: 06/29/21 14:30 Primary Reason for Your Visit: Acute resp failure/Acute asthma/COPD exacerbation Attending Provider: Michelle Ledbetter Primary Care Provider: Alexey Mayberry Consulting Providers: Bruce Devries ; Nic Weems ; Debbi Schaffer PILOT SUPERVISOR Instructions Additional Instructions / Restrictions: Complete your antibiotics and steroid. Continue to use any inhaler. Follow-up with pulmonology within 2 weeks. Discharge Orders/Prescriptions Prescriptions: New levofloxacin 750 mg tablet 750 mg PO DAILY 4 Days Qty: 4 RF: 0 prednisone 10 mg tablet See Taper mg PO DAILY 20 Days Qty: 16 RF: 0 Continued cyanocobalamin (vitamin B-12) 1,000 mcg tablet 1,000 mcg PO QHS RF: 0 levocetirizine 5 mg tablet 5 mg PO DAILY RF: 0 trazodone 50 mg tablet 75 mg PO QHS RF: 0 (DME) PEP device See Rx Instructions .ROUTE .MEDSUPPLY Qty: 1 RF: 0 clopidogrel 75 MG tablet 75 mg PO QHS RF: 0 cholecalciferol (vitamin D3) 1,000 UNIT tablet 2,000 units PO QHS RF: 0 omeprazole 20 MG capsule 40 mg PO DAILY RF: 0 aspirin 81 MG tablet,chewable 81 mg PO DAILY@0800 RF: 0 cetirizine 10 MG capsule 10 mg PO QHS RF: 0 mometasone-formoterol 8.8 GM HFA aerosol inhaler 2 puff IH BID RF: 0 atorvastatin 20 mg tablet 20 mg PO DAILY Qty: 90 RF: 3 montelukast 10 mg tablet 10 mg PO QPM Qty: 30 RF: 3 albuterol sulfate 90 mcg/actuation HFA aerosol inhaler 2 puff INHALATION Q2H PRN (Reason: Asthma) Qty: 18 RF: 0 Referrals / Follow Up: Nic Weems DO [STAFF PHYSICIAN] - Within 2 Weeks Alexey Mayberry MD [Primary Care Provider] - Within 2 Weeks Disposition Disposition (needs filled in before D/C Order can be placed): Home, Self Care Charges/Coding Visit Charges Inpatient E&M: 40605 Disch Hosp
--- NOTE | 2021-07-03 14:11 | CASEMGMT ---
MARION DAMON Discharge Follow-up Phone Call: JULIASobeida: Lizzeth Strata: 3 Call Date: 07/03/21 Discharge Date: 07/02/21 Time of Call: 1410 Duration: 3 min Admitting Diagnosis: COPD RN NELSON completed follow-up phone call after recent hospitalization. Patient states he is doing better but still a little shaky. Patient states he had no questions regarding discharge instructions. Patient was able to fill prescriptions without any issues. Patient is aware to schedule follow-up appts. Patient had no further questions or concerns at this time.
== END 2021-07-02 11:44 | disposition home or self-care (01) | DRG 208 ==
LOC: ED 14:25 → ICU 14:45 → PCU 07-01 17:38
PROVIDERS: Admitting Provider Internal Medicine; Emergency Provider Emergency Medicine; PCP Internal Medicine; Visit Provider Internal Medicine
DX: J44.1 Chronic obstructive pulmonary disease with (acute) exacerbation (principal); J96.21 Acute and chronic respiratory failure with hypoxia; J96.22 Acute and chronic respiratory failure with hypercapnia; J69.0 Pneumonitis due to inhalation of food and vomit; J45.901 Unspecified asthma with (acute) exacerbation; E78.5 Hyperlipidemia, unspecified; I25.10 Atherosclerotic heart disease of native coronary artery without angina pectoris; I10 Essential (primary) hypertension; I25.5 Ischemic cardiomyopathy; F17.210 Nicotine dependence, cigarettes, uncomplicated; Z79.82 Long term (current) use of aspirin; I25.2 Old myocardial infarction; Z86.711 Personal history of pulmonary embolism
CPT/HCPCS: 31500; 31720; 36600; 71045; 74018; 80048; 80053; 82803; 83605; 83735; 83880; 84484; 85025; 85379; 87040; 87070; 87205; 87426; 87633; 93005; 94002; 94003; 94640; 94660; 97161; 97162; 97165; 97802; 97803; 99285; J7030; A4216; J3010

== ENCOUNTER 2021-07-31 16:55 | Emergency (ER) | payer MEDICARE, MEDICAID, SELFPAY ==
[2021-07-31] VITALS (8 sets, daily range): BP systolic 113–139; BP diastolic 73–94; PULSE 94–111; RESP 18–26; TEMP 36.2–37.6; O2SAT 90–99; BMI 22.6
--- NOTE | 2021-07-31 17:07 | EKG12_ITS ---
Test Reason : SOB Blood Pressure : / mmHG Vent. Rate : 098 BPM Atrial Rate : 098 BPM P-R Int : 112 ms QRS Dur : 078 ms QT Int : 380 ms P-R-T Axes : 059 -29 035 degrees QTc Int : 485 ms Somatic/Motion Artifact Normal sinus rhythm Inferior infarct , age undetermined, cannot be excluded Abnormal ECG Confirmed by JOSE DAVID RICE, CYNDY ([id number]), manager editorial MARI LAWSON ([id number]) on 08/02/2021 8:29:33 AM Referred By: VINCENT Confirmed By:CYNDY MAIN MD
--- NOTE | 2021-07-31 17:08 | EDS_ITS ---
HPI History of Present Illness Chief Complaint: Shortness of Breath Informant: patient and family Onset/Context/Timing Onset: Today and Hours Context: gradual Timing: Continuous Quality: Positive for Wheezing Current Severity: Moderate Maximum Severity: Moderate Worsened by: Coughing Relieved by: Oxygen and Albuterol Associated Symptoms cough and green sputum; Negative for fever, sore throat, chills or sweats Chest Pain: Positive for None Narrative Narrative: 60-year-old male history of COPD not on home O2. Known history of CAD with a stent on Plavix. History of prior ND, V. tach cardiomyopathy. Prior pulmonary embolus. Patient had recent hospitalization for COPD. He was discharged home on steroids which she is now out of and was treated with antibiotic. He sees pulmonology has appointment to see them August 04. PE Risk Factors: Positive for Prior DVT or PE and Recent immobilization; Negative for Cancer, OCP + Smoking + > 35, Recent surgery and Recent travel Prior similar symptoms: Yes PFSH PFSH Medical History (Updated 07/31/21 @ 18:[address] Román Herndon MD) Atherosclerotic heart disease of [place] coronary artery without angina pectoris BPH (benign prostatic hyperplasia) CAD (coronary artery disease) COPD (chronic obstructive pulmonary disease) HLD (hyperlipidemia) Ischemic cardiomyopathy Old myocardial infarction Paroxysmal atrial tachycardia Paroxysmal ventricular tachycardia Premature ventricular contraction Presence of stent in coronary artery (~06/27/08) Septic shock Home Medications clopidogrel 75 mg PO QHS 06/16/13 [History Last Taken 05/13/19 20:00 75 mg] cholecalciferol (vitamin D3) 2,000 units PO QHS 03/25/16 [History Last Taken 05/13/19] omeprazole 40 mg PO DAILY 05/13/17 [History Last Taken 05/13/19 08:00] aspirin 81 mg PO DAILY@0800 06/20/17 [History Last Taken 05/13/19 08:00] cyanocobalamin (vitamin B-12) 1,000 mcg tablet 1,000 mcg PO QHS 10/15/17 [Hi story Last Taken 05/13/19 20:00 1000 mcg] cetirizine 10 mg PO QHS 12/14/17 [History Last Taken 05/13/19 10 mg] mometasone-formoterol 2 puff IH BID 06/30/18 [History Last Taken 05/13/19 04:00] levocetirizine 5 mg tablet 5 mg PO DAILY 09/23/19 [History Last Taken Unknown] trazodone 50 mg tablet 75 mg PO QHS tab 09/23/19 [History Last Taken Unknown] atorvastatin 20 mg tablet 20 mg PO DAILY #90 tab 01/04/20 [Rx Last Taken Unknown] PEP device #1 ea 04/27/20 [Rx Last Taken Unknown] montelukast 10 mg tablet 10 mg PO QPM #30 tab 05/21/21 [Rx Last Taken Unknown] albuterol sulfate 90 mcg/actuation aerosol inhaler 2 puff INHALATION Q2H PRN #18 g 06/13/21 [Rx Last Taken Unknown] levofloxacin 750 mg PO DAILY 4 Days #4 tab 07/02/21 [Rx Last Taken Unknown] prednisone See Taper PO DAILY 20 Days #16 tab 07/02/21 [Rx Last Taken Unknown] prednisone 40 mg PO DAILY 10 Days #20 tab 07/31/21 [Rx Last Taken Unknown] Allergy/AdvReac Type Severity Reaction Status Date / Time latex Allergy Rash Verified 07/31/21 17:36 varenicline tartrate Allergy Hives Verified 07/31/21 17:36 [From Chantix] aspirin AdvReac Upset Verified 07/31/21 17:36 Stomach Family History Father , age 50 CAD (coronary artery disease) Heart disease Myocardial infarction Mother Diabetes Brother Hypertension Surgical History History of hernia repair History of left hip replacement Presence of coronary angioplasty implant and graft (~06/27/08) Social History Smoking Status: Current every day smoker tobacco type: cigarettes alcohol intake: never substance use type: does not use caffeine: Yes Type: coffee Number of servings: 3 what type of physical activity do you participate in: walking frequency: daily duration: 45-60 minutes/day seatbelt use: always do you feel safe at home: Yes ROS ROS ED ROS Narrative Cough. Shortness of breath. Review of Systems ROS Unobtainable: Denies due to encephalopathy Constitutional Constitutional ED: Denies fever(s) Eyes Eyes: Denies change in vision ENT ENT ED: Denies ear pain Cardiovascular Cardiovascular: Denies chest pain Respiratory/Chest Respiratory/Chest: Reports cough, dyspnea and sputum Gastrointestinal Gastrointestinal: Denies abdominal pain, constipation, diarrhea, nausea or vomiting Genitourinary Genitourinary ED: Denies dysuria or hematuria Musculoskeletal Musculoskeletal: Denies myalgias Integumentary Denies rash Neurologic Neurologic: Denies headache(s) Psychiatric Psychiatric: Denies depression Endocrine Endocrinology: Denies polyuria Hematologic/Lymphatic Hematologic/Lymphatic: Denies easy bruising Allergic/Immunologic Allergic/Immunologic ED: Denies urticaria EXAM Physical Exam Narrative Exam Narrative: Middle-age male vital signs are stable afebrile oxygen is 99% on nonrebreather. H EENT exam unremarkable. Moist remembers. Neck nontender no JVD no lymphadenopathy. Lungs few expiratory wheezes. No rales or rhonchi. Equal symmetrical. Heart regular rhythm rate about 97 no murmur. Chest nontender. No crepitance. Abdomen soft nontender. Normal bowel sounds no peritoneal signs. Moving all 4 extremities. Calves nontender without edema or cords. Neurologically is awake and alert and no focal motor deficits. Back nontender. Const Vital Signs: 07/31/21 16:55 07/31/21 16:58 07/31/21 17:21 Temperature 99.7 F H 99.7 F H Temperature Source Temporal Temporal Pulse Rate 97 111 H 104 H Respiratory Rate 26 H 23 H 22 H Respiratory Effort Respiratory Pattern Tachypnea Blood Pressure 139/94 H 119/81 H Blood Pressure Mean 109 93 Pulse Ox 99 90 Oxygen Delivery Method Non-Rebreather Non-Rebreather Oxygen Flow Rate (L/min) 07/31/21 17:33 07/31/21 17:42 07/31/21 18:20 Temperature 97.2 F L Temperature Source Temporal Pulse Rate 111 H 99 Respiratory Rate 18 Respiratory Effort Short of Breath Labored Accessory Muscle Use Respiratory Pattern Blood Pressure 119/81 H 113/73 Blood Pressure Mean 93 86 Pulse Ox 90 94 Oxygen Delivery Method Non-Rebreather Nasal Cannula Oxygen Flow Rate (L/min) 2 Positive well nourished and well developed; Negative for obese, cachectic, contractures or unkempt General Appearance ED: well developed and NAD; Negative for unkempt, cachectic, contractures or pallor Nutritional Appearance: Negative for cachectic or obese HEENT Reports moist mucous membranes atraumatic; Negative for trauma or tenderness Eyes PERRL and EOMs intact bilaterally Neck no lymphadenopathy, supple, no meningeal signs and no JVD General: Negative for tenderness Resp normal respiratory effort and No clear to auscultation bilaterally Auscultation: wheezes; Negative for rales or rhonchi Cardio regular rate, regular rhythm, S1 normal heart sound, S2 normal heart sound and no murmurs GI non-tender, non-distended and no masses Auscultation: normoactive bowel sounds Palpation: soft; Negative for tender, guarding or rebound tenderness present Back/Spine no CVA tenderness and normal to inspection General Back: Negative for CVA tenderness or tenderness Extremity normal to inspection General Extremety ED: Negative for edema or tenderness General Extremity: Negative for edema Neuro oriented x3 Sensorium / Orientation: alert, oriented to person, oriented to place, oriented to time and orientation impaired; Negative for confused, lethargic or stuporous Motor Exam: strength 5/5 throughout Psych mental status grossly normal Appearance: Negative for unkempt Thought Process: normal thought process Skin no wounds and skin turgor normal General Skin Exam: Negative for jaundice or pallor Lesions: no lesions Rashes: no rashes MDM MDM MDM Narrative Medical decision making narrative: 60-year-old history of COPD with a COPD fla re. Already was treated with 1 DuoNeb aerosol by squad and Solu-Medrol. Will be given additional DuoNeb and albuterol aerosols. Screening labs, chest x-ray and EKG will be obtained. Clinically is doing pretty well at this time. Repeat exam patient is doing well he was treated with DuoNeb and albuterol aerosols. His labs and chest x-ray and EKG are unremarkable. He feels better. He was ambulated off oxygen his pulse ox stayed 91% or better. 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 Lab Data Attestation: I reviewed the patient's lab results. Lab results narrative: CBC White count 6. 9. Hemoglobin 14.9. Platelets 337. Electrolytes unremarkable gap 7 BUN of 10 creatinine 1 glucose 127 troponin 6. Chest x-ray chronic changes no acute process. Labs: Laboratory Results - last 24 hr 07/31/21 07/31/21 17:50 17:50 WBC 6.9 RBC 5.01 Hgb 14.9 Hct 45.6 MCV 91.0 MCH 29.7 MCHC 32.7 RDW Std Deviation 45.1 H RDW Coeff of [place] 13.3 Plt Count 337 MPV 9.5 Immature Gran % (Auto) 1.000 H Neut % (Auto) 49.8 Lymph % (Auto) 27.6 [place] % (Auto) 12.0 H Eos % (Auto) 8.6 H Baso % (Auto) 1.0 Absolute Neuts (auto) 3.4 Absolute Lymphs (auto) 1.90 Nucleated RBC % 0 Sodium 140 Potassium 4.1 Chloride 107 Carbon Dioxide 26.0 Anion Gap 7 BUN 10 Creatinine 1.01 Estim Creat Clear Calc 75.30 Est GFR (MDRD) Af Amer 97 Est GFR (MDRD) Non-Af 80 BUN/Creatinine Ratio 9.9 L Glucose 127 H Calcium 8.9 Troponin I High Sens 6 Radiography Chest X-Ray - ED: 1 View, Read by ED Physician, Heart, Lungs, Mediastinum, Bony Structures, No Acute Disease and Chronic Changes Diagnostic Testing: Clinical Impression(s) from Imaging Studies Chest X-Ray 07/31/21 18:00 IMPRESSION: Chronic interstitial changes, no superimposed acute pulmonary process Electronically Signed: Reymundo Campos MD at 18:16 EST , Service support , Chest x-ray chronic changes portable 1 view interpreted by myself and radiologist. No acute process. Rhythm Strip Rhythm Strip: Sinus Rhythm Rate: 98 Ectopy: None EKG Initial EKG: Attestation: I personally reviewed and interpreted this EKG as follows: Interpretation: Sinus Rhythm and No Acute Injury Pattern Comments: Normal sinus rhythm rate 98 no acute signs of ND or ischemia. Discharge Plan Triage Chief Complaint: Shortness of Breath ED Provider: Román Herndon Dx/Rx/DC Orders Clinical Impression: COPD (chronic obstructive pulmonary disease), Old myocardial infarction, COPD exacerbation Instructions: ED COPD Flare Prescriptions: New prednisone 20 mg tablet 40 mg PO DAILY 10 Days Qty: 20 RF: 0 No Action cyanocobalamin (vitamin B-12) 1,000 mcg tablet 1,000 mcg PO QHS RF: 0 levocetirizine 5 mg tablet 5 mg PO DAILY RF: 0 trazodone 50 mg tablet 75 mg PO QHS RF: 0 (DME) PEP device See Rx Instructions .ROUTE .MEDSUPPLY Qty: 1 RF: 0 clopidogrel 75 MG tablet 75 mg PO QHS RF: 0 cholecalciferol (vitamin D3) 1,000 UNIT tablet 2,000 units PO QHS RF: 0 omeprazole 20 MG capsule 40 mg PO DAILY RF: 0 aspirin 81 MG tablet,chewable 81 mg PO DAILY@0800 RF: 0 cetirizine 10 MG capsule 10 mg PO QHS RF: 0 mometasone-formoterol 8.8 GM HFA aerosol inhaler 2 puff IH BID RF: 0 levofloxacin 750 mg tablet 750 mg PO DAILY 4 Days Qty: 4 RF: 0 prednisone 10 mg tablet See Taper mg PO DAILY 20 Days Qty: 16 RF: 0 atorvastatin 20 mg tablet 20 mg PO DAILY Qty: 90 RF: 3 montelukast 10 mg tablet 10 mg PO QPM Qty: 30 RF: 3 albuterol sulfate 90 mcg/actuation HFA aerosol inhaler 2 puff INHALATION Q2H PRN (Reason: Asthma) Qty: 18 RF: 0 Primary Care Provider: Alexey Mayberry Referrals: Bruce Devries MD [STAFF PHYSICIAN] - Keep Nicho appointment Alexey Mayberry MD [Primary Care Provider] - Activity Restrictions/Additional Instructions: Prednisone 40 mg a day. Follow-up with your carpet sewing machine operator as scheduled. Return if feeling worse. Use your inhalers and nebulizer at home as needed. Disposition Disposition: Home, Self Care
[2021-07-31] MEDS: Ipratropium/Albuterol Sulfate 3 ML AMPUL.NEB INHALATION (17:20)
[2021-07-31] MEDS: Albuterol 2.5 MG/3 ML VIAL.NEB. INHALATION ×2 (17:20)
[2021-07-31 17:56] LABS: Absolute Neutrophil Count 3.4 X10^3/uL (2.0-7.7); Basophil# 0.07 X10^3/uL; Eosinophil# 0.59 X10^3/uL; Eosinophils% 8.6 % (0-5); Hematocrit 45.6 % (40-54); Hemoglobin 14.9 g/dL (13.0-16.5); Lymphocyte % 27.6 % (19-41); Mean Corp Hgb Conc 32.7 g/dL (32-36); Mean Corpuscular Hgb 29.7 pg (27.0-32.0); Mean Platelet Vol. 9.5 fl (6.2-12.0); Monocyte# 0.83 X10^3/uL; NRBC Flagged by Analyzer 0 % (0-5); Neutrophil # 3.43 X10^3/uL (2.7-7.7); Neutrophil % 49.8 % (47-70); Platelet Count 337 K/mm3 (150-450); RBC Distribution Width CV 13.3 % (11.6-14.6); RBC Distribution Width SD 45.1 fl (35.1-43.9); Red Blood Count 5.01 M/mm3 (4.6-6.2); White Blood Count 6.9 K/mm3 (4.4-11.0)
--- NOTE | 2021-07-31 18:00 | RAD_ITS ---
STUDY: X-RAY CHEST REASON FOR EXAM: Male, 60 years old. Chest pain TECHNIQUE: Single AP portable view of the chest. COMPARISON: 06/29/2021 FINDINGS: EKG leads overlie the chest There are interstitial changes of the lungs. There is no demonstrated pleural abnormality. Normal size heart. Normal mediastinum and winnie. Normal visualized pulmonary arteries. Normal visualized aortic arch and descending thoracic aorta. Normal visualized thoracic spine. Multiple old healed left rib fractures There is no demonstrated abnormality of the visualized soft tissue structures of the upper abdomen. RAD/Chest 1 View (Portable) IMPRESSION: Chronic interstitial changes, no superimposed acute pulmonary process Electronically Signed: Reymundo Campos MD at 18:16 EST , Service support ,
[2021-07-31 18:15] LABS: Anion Gap 7 (5-15); BUN 10 mg/dL (7-18); BUN/Creat Ratio 9.9 RATIO (10-20); Calcium,Total 8.9 mg/dL (8.5-10.1); Chloride 107 mmol/L (98-107); Creatinine, Serum 1.01 mg/dL (0.70-1.30); EST Glomerular Filtration Rate 80 mL/min (>60); Est Glom Filt Rate - Afr Amer 97 mL/min (>60); Glucose 127 mg/dL (74-106); Potassium 4.1 mmol/L (3.5-5.1); Sodium Level 140 mmol/L (136-145); Troponin-I HS 6 pg/mL (3.0-78.0)
== END 2021-07-31 19:01 | disposition home or self-care (01) ==
PROVIDERS: Emergency Provider Emergency Medicine; PCP Internal Medicine
DX: J44.1 Chronic obstructive pulmonary disease with (acute) exacerbation (principal); I25.2 Old myocardial infarction; F17.210 Nicotine dependence, cigarettes, uncomplicated; Z96.642 Presence of left artificial hip joint; E78.5 Hyperlipidemia, unspecified; I25.10 Atherosclerotic heart disease of native coronary artery without angina pectoris; I25.5 Ischemic cardiomyopathy; Z79.02 Long term (current) use of antithrombotics/antiplatelets; Z79.51 Long term (current) use of inhaled steroids; Z79.52 Long term (current) use of systemic steroids; Z79.82 Long term (current) use of aspirin; Z95.5 Presence of coronary angioplasty implant and graft; Z86.718 Personal history of other venous thrombosis and embolism; Z86.711 Personal history of pulmonary embolism
CPT/HCPCS: 71045; 80048; 84484; 85025; 93005; 94640; 99285

== ENCOUNTER → 2021-08-04 09:16 | Outpatient (CLI) | payer MEDICARE, MEDICAID, SELFPAY | PROVIDERS: PCP Internal Medicine; Referring Provider Nurse Practitioner Acute Care; Visit Provider Nurse Practitioner Acute Care | DX: J44.1 Chronic obstructive pulmonary disease with (acute) exacerbation (principal) | CPT/HCPCS: 87070; 87077; 87186; 87205 ==

== ENCOUNTER 2021-08-28 18:10 | Inpatient (IN) | payer MEDICARE, MEDICAID, SELFPAY ==
[2021-08-28] VITALS (7 sets, daily range): BP systolic 106–142; BP diastolic 77–94; PULSE 92–122; RESP 12–38; TEMP 36.3–37.1; O2SAT 93–96; BMI 22.8; BMI 21.7
--- NOTE | 2021-08-28 20:33 | EKG12_ITS ---
Test Reason : SOB Blood Pressure : / mmHG Vent. Rate : 096 BPM Atrial Rate : 096 BPM P-R Int : 118 ms QRS Dur : 076 ms QT Int : 366 ms P-R-T Axes : 065 -19 030 degrees QTc Int : 462 ms Normal sinus rhythm Low voltage QRS Inferior infarct Abnormal ECG Confirmed by LUZ RICE, SB ([id number]), editor publications THERESA OLIVEIRA ([id number]) on 08/31/2021 9:17:04 AM Referred By: ROLAND Confirmed By:SB ESCOBAR MD
--- NOTE | 2021-08-28 20:35 | EDS_ITS ---
HPI History of Present Illness Chief Complaint: Shortness of Breath Informant: patient and spouse/S.O. Onset/Context/Timing Onset: Today Context: gradual Timing: Continuous Current Severity: Mild Maximum Severity: Moderate Worsened by: Nothing Relieved by: Oxygen Associated Symptoms cough; Negative for rhinorrhea, post nasal drip, ear pain, fever, sore throat, chills, yellow sputum or green sputum Chest Pain: Positive for None Narrative Narrative: 40-year-old male history of COPD, prior [place] with cardiac stents. He is also had a PE before. States has been short of breath the last 1 to 2 days. Feels like his COPD. He is not on home O2. He denies any chest pain nor any hemoptysis. No fever or chills. No leg pain or swelling. He does smoke but is trying to quit and has not been smoking in the last month. PE Risk Factors: Positive for Prior DVT or PE and Recent immobilization; Negative for Cancer, OCP + Smoking + > 35, Recent surgery and Recent travel Prior similar symptoms: Yes Recent Illness/Hospitalization: Yes PFSH [facility] Medical History (Updated 08/28/21 @ 22:[address] Román Herndon MD) Atherosclerotic heart disease of [place] coronary artery without angina pectoris BPH (benign prostatic hyperplasia) CAD (coronary artery disease) COPD (chronic obstructive pulmonary disease) HLD (hyperlipidemia) Ischemic cardiomyopathy Old myocardial infarction Paroxysmal atrial tachycardia Paroxysmal ventricular tachycardia Premature ventricular contraction Presence of stent in coronary artery (~06/27/08) Septic shock Home Medications clopidogrel 75 mg PO QHS 06/16/13 [History Last Taken 05/13/19 20:00 75 mg] cholecalciferol (vitamin D3) 2,000 units PO QHS 03/25/16 [History Last Taken 05/13/19] omeprazole 40 mg PO DAILY 05/13/17 [History Last Taken 05/13/19 08:00] aspirin 81 mg PO DAILY@0800 06/20/17 [History Last Taken 05/13/19 08:00] cyanocobalamin (vitamin B-12) 1,000 mcg tablet 1,000 mcg PO QHS 10/15/17 [History Last Taken 05/13/19 20:00 1000 mcg] cetirizine 10 mg PO QHS 12/14/17 [History Last Taken 05/13/19 10 mg] mometasone-formoterol 2 puff IH BID 06/30/18 [History Last Taken 05/13/19 04:00] levocetirizine 5 mg tablet 5 mg PO DAILY 09/23/19 [History Last Taken Unknown] trazodone 50 mg tablet 75 mg PO QHS tab 09/23/19 [History Last Taken Unknown] atorvastatin 20 mg tablet 20 mg PO DAILY #90 tab 01/04/20 [Rx Last Taken Unknown] PEP device #1 ea 04/27/20 [Rx Last Taken Unknown] montelukast 10 mg tablet 10 mg PO QPM #30 tab 05/21/21 [Rx Last Taken Unknown] prednisone See Taper PO DAILY 20 Days #16 tab 07/02/21 [Rx Last Taken Unknown] prednisone 40 mg PO DAILY 10 Days #20 tab 07/31/21 [Rx Last Taken Unknown] albuterol sulfate 90 mcg/actuation aerosol inhaler 2 puff INHALATION Q2H PRN #18 g 08/02/21 [Rx Last Taken Unknown] guaifenesin 1,200 mg tablet, extended release 12 hr 1,200 mg PO Q12H #60 tab 08/04/21 [Rx Last Taken Unknown] tiotropium 2.5 mcg-olodaterol 2.5 mcg/actuation mist for inhalation 2 inh INHALATION DAILY #4 g 08/04/21 [Rx Last Taken Unknown] Allergy/AdvReac Type Severity Reaction Status Date / Time latex Allergy Rash Verified 08/28/21 18:11 varenicline tartrate Allergy Hives Verified 08/28/21 18:11 [From Chantix] aspirin AdvReac Upset Verified 08/28/21 18:11 Stomach Family History Father , age 50 CAD (coronary artery disease) Heart disease Myocardial infarction Mother Diabetes Brother Hypertension Surgical History History of hernia repair History of left hip replacement Presence of coronary angioplasty implant and graft (~06/27/08) Social History Smoking Status: Former smoker alcohol intake: never substance use type: does not use caffeine: Yes Type: coffee Number of servings: 3 what type of physical activity do you participate in: walking frequency: daily duration: 45-60 minutes/day seatbelt use: always do you feel safe at home: Yes ROS ROS ED ROS Narrative Shortness of breath. Review of Systems ROS Unobtainable: Denies due to encephalopathy Constitutional Constitutional ED: Denies chills or fever(s) Eyes Eyes: Denies change in vision ENT ENT ED: Denies ear pain Cardiovascular Cardiovascular: Denies chest pain or palpitations Respiratory/Chest Respiratory/Chest: Reports dyspnea; Denies cough Gastrointestinal Gastrointestinal: Denies abdominal pain, diarrhea, nausea or vomiting Genitourinary Genitourinary ED: Denies dysuria Musculoskeletal Musculoskeletal: Denies myalgias Integumentary Denies rash Neurologic Neurologic: Denies headache(s) Psychiatric Psychiatric: Denies depression Endocrine Endocrinology: Denies polyuria Hematologic/Lymphatic Hematologic/Lymphatic: Denies easy bruising Allergic/Immunologic Allergic/Immunologic ED: Denies urticaria EXAM Physical Exam Narrative Exam Narrative: 40-year-old male asked increased pulse and respiratory rate and work of breathing. With instrument expiratory wheezing. On room air is 93%. As he is on 2 L. H EENT exam unremarkable. Moist remembers. Neck nontender, no JVD nor lymphadenopathy. Lungs start expiratory wheezing bilaterally. Equal symmetrical. No chest wall crepitance. No rales or rhonchi. Heart tachycardic rate about 100 no murmur. Abdomen soft nontender. Moving all 4 extremities. Calves are nontender without edema or cords. Neurologically is awake and alert moving all 4 extremities. Const Vital Signs: 08/28/21 18:11 08/28/21 20:31 08/28/21 20:54 Temperature 97.3 F L Temperature Source Temporal Pulse Rate 113 H 92 105 H Respiratory Rate 26 H 25 H 24 H Respiratory Effort Short of Breath Respiratory Pattern Tachypnea Tachypnea Blood Pressure 124/85 H 127/86 H Blood Pressure Mean 98 99 Pulse Ox 93 93 Oxygen Delivery Method Room Air Nasal Cannula Oxygen Flow Rate (L/min) 2 Fraction of Inspired Oxygen (FIO2) 08/28/21 21:46 08/28/21 22:02 Temperature Temperature Source Pulse Rate 122 H 109 H Respiratory Rate 32 H 30 H Respiratory Effort Respiratory Pattern Tachypnea Blood Pressure 142/89 H Blood Pressure Mean 106 Pulse Ox 94 96 Oxygen Delivery Method Bi-pap Oxygen Flow Rate (L/min) Fraction of Inspired Oxygen (FIO2) 50 50 Positive well nourished and well developed; Negative for obese, cachectic, contractures or unkempt General Appearance ED: well developed; Negative for unkempt, cachectic, contractures, NAD or pallor Nutritional Appearance: Negative for cachectic or obese HEENT Reports moist mucous membranes atraumatic; Negative for trauma or tenderness Eyes PERRL and EOMs intact bilaterally General Eye ED: Negative for pale conjunctiva or scleral icterus Neck no lymphadenopathy, supple, no meningeal signs and no JVD General: Negative for tenderness Resp normal respiratory effort and clear to auscultation bilaterally Auscultation: Negative for rales, rhonchi or wheezes Cardio regular rhythm, S1 normal heart sound, S2 normal heart sound and no murmurs; Negative for regular rate Rate: tachycardic GI non-tender, non-distended and no masses Auscultation: normoactive bowel sounds Palpation: soft; Negative for tender, guarding or rebound tenderness present Back/Spine no CVA tenderness and normal to inspection General Back: Negative for CVA tenderness Extremity normal to inspection General Extremety ED: Negative for edema or tenderness General Extremity: Negative for edema Neuro oriented x3 Sensorium / Orientation: alert, oriented to person, oriented to place and lethargic; Negative for oriented to time, orientation impaired, confused or stuporous Motor Exam: strength 5/5 throughout Psych mental status grossly normal Appearance: Negative for unkempt Mood & Affect: Negative for depressed Thought Process: normal thought process Skin no wounds General Skin Exam: Negative for jaundice or pallor Lesions: no lesions Rashes: no rashes MDM MDM MDM Narrative Medical decision making narrative: 60-year-old gentleman with dyspnea suspect secondary to underlying COPD exacerbation. Rule out pneumonia versus Covid versus see HF versus cardiac etiology. Consider pulmonary embolus but clinically has no signs of that nor any chest pain or hemoptysis. No leg swelling. Patient will be treated with DuoNeb and albuterol aerosols and IV Solu-Medrol. Multiple repeat exams. Patient and I discussed options we placed him on BiPAP. He was very anxious about as he was given a milligram of Ativan IV. He has had recurrent DuoNeb aerosols while on the BiPAP and has shown significant improvement. His vital signs are improving. He clinically looks much better. At this time he does not need innovated. Lab Data Attestation: I reviewed the patient's lab results. Lab results narrative: CBC shows a white count of 10. Hemoglobin 13.8. Platelets 291. Electrolytes are normal gap of 6 normal BUN and creatinine. Glucose of 109. Troponin of 9. Labs: Laboratory Results - last 24 hr 08/28/21 08/28/21 08/28/21 20:27 20:27 20:27 WBC 10.5 RBC 4.66 Hgb 13.8 Hct 42.4 MCV 91.0 MCH 29.6 MCHC 32.5 RDW Std Deviation 45.6 H RDW Coeff of [place] 13.6 Plt Count 291 MPV 9.3 Immature Gran % (Auto) 0.600 Neut % (Auto) 75.5 H Lymph % (Auto) 11.2 L [place] % (Auto) 9.1 Eos % (Auto) 3.2 Baso % (Auto) 0.4 Absolute Neuts (auto) 7.9 H Absolute Lymphs (auto) 1.18 Nucleated RBC % 0 Sodium 138 Potassium 3.9 Chloride 107 Carbon Dioxide 25.0 Anion Gap 6 BUN 16 Creatinine 1.00 Estim Creat Clear Calc 76.50 Est GFR (MDRD) Af Amer 98 Est GFR (MDRD) Non-Af 81 BUN/Creatinine Ratio 16.0 Glucose 109 H Calcium 8.9 Troponin I High Sens 9 Radiography Chest X-Ray - ED: 1 View, Read by ED Physician, Heart, Lungs, Mediastinum, Bony Structures, No Acute Disease and Chronic Changes Diagnostic Testing: Clinical Impression(s) from Imaging Studies Chest X-Ray 08/28/21 21:19 IMPRESSION: COPD Electronically Signed: Les Infante MD at 22:33 EST , Service support , Portable, single view, chest x-ray shows chronic changes consistent with COPD but no acute process. Interpreted both by myself and the radiologist. Rhythm Strip Rhythm Strip: Sinus Rhythm Rate: 96 Ectopy: None EKG Initial EKG: Attestation: I personally reviewed and interpreted this EKG as follows: Interpretation: Sinus Rhythm and No Acute Injury Pattern Comments: Normal sinus rhythm rate of 96 no acute signs of [place] or ischemia. Prior: Unchanged Critical Care Time Critical Care Time: Yes Critical care time (excluding procedures): 30-74 minutes, Discussing w/Patient &/or Family/Bill Board Poster, Discussing w/Consultants, Arranging Admission or Transfer, Performing Direct Patient Care at Bedside and - (35 min) Discharge Plan Dx/Rx/DC Orders Clinical Impression: COPD exacerbation, Respiratory failure, Hypoxia Disposition Disposition: Acute Care [facility]
[2021-08-28 20:40] LABS: Absolute Lymphocyte Count 1.18 X10^3/uL (0.83-4.51); Absolute Neutrophil Count 7.9 X10^3/uL (2.0-7.7); Basophil# 0.04 X10^3/uL; Basophil% 0.4 % (0-1); Eosinophil# 0.34 X10^3/uL; Eosinophils% 3.2 % (0-5); Hematocrit 42.4 % (40-54); Hemoglobin 13.8 g/dL (13.0-16.5); Lymphocyte # 1.18 X10^3/ul (0.83-4.51); Lymphocyte % 11.2 % (19-41); Mean Corp Hgb Conc 32.5 g/dL (32-36); Mean Corpuscular Hgb 29.6 pg (27.0-32.0); Mean Platelet Vol. 9.3 fl (6.2-12.0); Monocyte# 0.96 X10^3/uL; Monocyte% 9.1 % (0-10); NRBC Flagged by Analyzer 0 % (0-5); Neutrophil # 7.92 X10^3/uL (2.7-7.7); Neutrophil % 75.5 % (47-70); Platelet Count 291 K/mm3 (150-450); RBC Distribution Width CV 13.6 % (11.6-14.6); RBC Distribution Width SD 45.6 fl (35.1-43.9); Red Blood Count 4.66 M/mm3 (4.6-6.2); White Blood Count 10.5 K/mm3 (4.4-11.0)
[2021-08-28] MEDS: MethylPREDNISolone 125 MG/2 ML Vial IV (20:46)
[2021-08-28 20:50] LABS: Anion Gap 6 (5-15); BUN 16 mg/dL (7-18); Calcium,Total 8.9 mg/dL (8.5-10.1); Chloride 107 mmol/L (98-107); EST Glomerular Filtration Rate 81 mL/min (>60); Est Glom Filt Rate - Afr Amer 98 mL/min (>60); Glucose 109 mg/dL (74-106); Potassium 3.9 mmol/L (3.5-5.1); Sodium Level 138 mmol/L (136-145)
[2021-08-28] MEDS: Ipratropium/Albuterol Sulfate 3 ML AMPUL.NEB INHALATION ×3 (20:53→21:45)
[2021-08-28] MEDS: Albuterol 2.5 MG/3 ML VIAL.NEB. INHALATION ×2 (20:58)
[2021-08-28 21:02] LABS: Troponin-I HS 9 pg/mL (3.0-78.0)
--- NOTE | 2021-08-28 21:19 | RAD_ITS ---
STUDY: X-RAY CHEST REASON FOR EXAM: Male, 60 years old. copd TECHNIQUE: 2 AP portable view of the chest. COMPARISON: July 31, 2021 FINDINGS: No visualized consolidation. There is hyperinflation of the lungs consistent with chronic obstructive lung disease (COPD). There is no demonstrated pleural abnormality. Normal size heart. Normal mediastinum and winnie. Normal visualized pulmonary arteries. Normal visualized aortic arch and descending thoracic aorta. Normal visualized thoracic spine. Reidentification of multiple healed left-sided rib fractures. There is no demonstrated abnormality of the visualized soft tissue structures of the upper abdomen. RAD/Chest 1 View (Portable) IMPRESSION: COPD Electronically Signed: Les Infante MD at 22:33 EST , Service support ,
[2021-08-28] MEDS: LORazepam 2 MG/ML Syringe 1 MG IV (22:02)
--- NOTE | 2021-08-28 23:02 | HP.PCM_ITS ---
HPI - General HPI Narrative CHIO DENT, is a 60 M who presents to the emergency room with acute shortness of breath. Patient has significant past medical history of COPD. He states the onset of the shortness of breath began acutely at this evening at 5:00 PM. Patient was placed on BiPAP machine in the emergency room and responded accordingly. He was able to tolerate BiPAP therapy after having a dose of Ativan. He is able to tell me that he is feeling much more comfortable now with the BiPAP machine in place and agrees with continuing this therapy overnight. The patient has a negative Covid test here in the emergency room and chest x-ray is consistent with COPD exacerbation. No fever chills, no nausea vomiting or diarrhea at this time patient will be admitted to the ICU overnight for acute respiratory failure secondary to chronic obstructive pulmonary disease. [facility] Medical History (Updated 08/28/21 @ 22:[address] Román Herndon MD) Atherosclerotic heart disease of [place] coronary artery without angina pectoris BPH (benign prostatic hyperplasia) CAD (coronary artery disease) COPD (chronic obstructive pulmonary disease) HLD (hyperlipidemia) Ischemic cardiomyopathy Old myocardial infarction Paroxysmal atrial tachycardia Paroxysmal ventricular tachycardia Premature ventricular contraction Presence of stent in coronary artery (~06/27/08) Septic shock Home Medications clopidogrel 75 mg PO QHS 06/16/13 [History Last Taken 05/13/19 20:00 75 mg] cholecalciferol (vitamin D3) 2,000 units PO QHS 03/25/16 [History Last Taken 05/13/19] omeprazole 40 mg PO DAILY 05/13/17 [History Last Taken 05/13/19 08:00] aspirin 81 mg PO DAILY@0800 06/20/17 [History Last Taken 05/13/19 08:00] cyanocobalamin (vitamin B-12) 1,000 mcg tablet 1,000 mcg PO QHS 10/15/17 [History Last Taken 05/13/19 20:00 1000 mcg] cetirizine 10 mg PO QHS 12/14/17 [History Last Taken 05/13/19 10 mg] mometasone-formoterol 2 puff IH BID 06/30/18 [History Last Taken 05/13/19 04:00] levocetirizine 5 mg tablet 5 mg PO DAILY 09/23/19 [History Last Taken Unknown] trazodone 50 mg tablet 75 mg PO QHS tab 09/23/19 [History Last Taken Unknown] atorvastatin 20 mg tablet 20 mg PO DAILY #90 tab 01/04/20 [Rx Last Taken Unknown] PEP device #1 ea 04/27/20 [Rx Last Taken Unknown] montelukast 10 mg tablet 10 mg PO QPM #30 tab 05/21/21 [Rx Last Taken Unknown] prednisone See Taper PO DAILY 20 Days #16 tab 07/02/21 [Rx Last Taken Unknown] prednisone 40 mg PO DAILY 10 Days #20 tab 07/31/21 [Rx Last Taken Unknown] albuterol sulfate 90 mcg/actuation aerosol inhaler 2 puff INHALATION Q2H PRN #18 g 08/02/21 [Rx Last Taken Unknown] guaifenesin 1,200 mg tablet, extended release 12 hr 1,200 mg PO Q12H #60 tab 08/04/21 [Rx Last Taken Unknown] tiotropium 2.5 mcg-olodaterol 2.5 mcg/actuation mist for inhalation 2 inh INHALATION DAILY #4 g 08/04/21 [Rx Last Taken Unknown] Allergy/AdvReac Type Severity Reaction Status Date / Time latex Allergy Rash Verified 08/28/21 18:11 varenicline tartrate Allergy Hives Verified 08/28/21 18:11 [From Chantix] aspirin AdvReac Upset Verified 08/28/21 18:11 Stomach Family History Father , age 50 CAD (coronary artery disease) Heart disease Myocardial infarction Mother Diabetes Brother Hypertension Surgical History History of hernia repair History of left hip replacement Presence of coronary angioplasty implant and graft (~06/27/08) Social History Smoking Status: Former smoker alcohol intake: never substance use type: does not use caffeine: Yes Type: coffee Number of servings: 3 what type of physical activity do you participate in: walking frequency: daily duration: 45-60 minutes/day seatbelt use: always do you feel safe at home: Yes ROS Constitutional Constitutional: Reports fatigue; Denies chills Eyes Eyes: Denies blurry vision ENT HEENT: Denies abnormal hearing Cardiovascular Cardiovascular: Denies chest pain Respiratory/Chest Respiratory/Chest: Reports shortness of breath at rest and wheezing Gastrointestinal Gastrointestinal: Denies abdominal pain Genitourinary Genitourinary: Denies dysuria Musculoskeletal Musculoskeletal: Denies back pain Integumentary Integumentary: Denies dry skin Neurologic Neurologic: Denies abnormal gait Psychiatric Psychiatric: Reports anxiety Vital Signs Vital Signs Vital Signs: 08/28/21 18:11 08/28/21 20:31 08/28/21 20:54 Temperature 97.3 F L Temperature Source Temporal Pulse Rate 113 H 92 105 H Respiratory Rate 26 H 25 H 24 H Respiratory Effort Short of Breath Respiratory Pattern Tachypnea Tachypnea Blood Pressure 124/85 H 127/86 H Blood Pressure Mean 98 99 Pulse Ox 93 93 Oxygen Delivery Method Room Air Nasal Cannula Oxygen Flow Rate (L/min) 2 Fraction of Inspired Oxygen (FIO2) 08/28/21 21:46 08/28/21 22:02 Temperature Temperature Source Pulse Rate 122 H 109 H Respiratory Rate 32 H 30 H Respiratory Effort Respiratory Pattern Tachypnea Blood Pressure 142/89 H Blood Pressure Mean 106 Pulse Ox 94 96 Oxygen Delivery Method Bi-pap Oxygen Flow Rate (L/min) Fraction of Inspired Oxygen (FIO2) 50 50 Weight Weight: 149 lb 14.629 oz Body Mass Index (BMI) 22.8 Physical Exam Const alert and oriented x3 General Appearance: cooperative HEENT normocephalic and head/scalp atraumatic Eyes PERRL Neck supple Lymph Lymphatic: no lymphadenopathy noted Resp Effort and Inspection: respiratory distress and labored Auscultation: wheezes Cardio regular rhythm, S1 normal heart sound and S2 normal heart sound Rate: tachycardic GI normal to inspection, nondistended, normoactive bowel sounds Extremity no clubbing, cyanosis or edema Skin General Skin Exam: turgor normal Neuro CN's II-XII intact bilaterally Psych affect normal Results Lab / Micro Data Result Diagrams: 08/28/21 20:27 08/28/21 20:27 Labs: Laboratory Results - last 24 hr 08/28/21 20:27: WBC 10.5, RBC 4.66, Hgb 13.8, Hct 42.4, MCV 91.0, MCH 29.6, MCHC 32.5, RDW Std Deviation 45.6 H, RDW Coeff of [place] 13.6, Plt Count 291, MPV 9.3, Immature Gran % (Auto) 0.600, Neut % (Auto) 75.5 H, Lymph % (Auto) 11.2 L, [place] % (Auto) 9.1, Eos % (Auto) 3.2, Baso % (Auto) 0.4, Absolute Neuts (auto) 7.9 H, Absolute Lymphs (auto) 1.18, Nucleated RBC % 0 08/28/21 20:27: Sodium 138, Potassium 3.9, Chloride 107, Carbon Dioxide 25.0, Anion Gap 6, BUN 16, Creatinine 1.00, Estim Creat Clear Calc 76.50, Est GFR (MDRD) Af Amer 98, Est GFR (MDRD) Non-Af 81, BUN/Creatinine Ratio 16.0, Glucose 109 H, Calcium 8.9 08/28/21 20:27: Troponin I High Sens 9 Micro: Microbiology 08/28/21 20:22 Nasal Secretion SARS-CoV-2 Antigen (Rapid) - Final Rhythm Strip Rhythm Strip: Sinus Rhythm Rate: 96 Ectopy: None Radiology Impression Chest X-Ray 08/28/21 21:19 IMPRESSION: COPD Electronically Signed: Les Infante MD at 22:33 EST , Service support , Assessment & Plan Assessment/Plan (1) Respiratory failure: (2) Hypoxia: (3) Asthma exacerbation in COPD: (4) Presence of stent in coronary artery: (5) Old myocardial infarction: (6) HLD (hyperlipidemia): QUALIFIERS: Hyperlipidemia type: unspecified Qualified Code(s): E78.5 - Hyperlipidemia, unspecified (7) Nicotine abuse: PLAN: 1. respiratory failure secondary to COPD?admit patient to ICU overnight for BiPAP therapy and monitoring, repeat CBC BMP in the morning, consult lithograph designer for ICU management the morning. We will start Levaquin, Solu-Medrol and DuoNeb breathing treatments every 4 hours 2. Hyperlipidemia?continue statin 3. Nicotine abuse encourage cessation 4. DVT prophylaxis?low molecular weight heparin Charges/Coding Visit Charges Inpatient E&M: 32613 Init Hosp L3
--- NOTE | 2021-08-28 23:34 | ED.RN ---
Report called to ICU. Nurse busy at the time, report given to MARION Roblero.
[2021-08-29] VITALS (34 sets, daily range): BP systolic 106–176; BP diastolic 64–95; PULSE 94–124; RESP 12–34; TEMP 36.2–36.8; O2SAT 87–99
[2021-08-29] MEDS: levoFLOXacin IV 500 MG/100 ML BAG 100 MG IV ×2 (01:11→21:07)
[2021-08-29] MEDS: 0.9% Saline Lock 10 ML Syringe IV ×3 (01:12→21:09)
[2021-08-29] MEDS: Ipratropium/Albuterol Sulfate 3 ML AMPUL.NEB INHALATION ×6 (03:13→20:21)
[2021-08-29] MEDS: guaiFENesin 1,200 MG Tablet 1200 MG PO ×3 (04:55→21:08)
[2021-08-29 04:59] LABS: Absolute Lymphocyte Count 0.31 X10^3/uL (0.83-4.51); Absolute Neutrophil Count 5.2 X10^3/uL (2.0-7.7); Basophil# 0.01 X10^3/uL; Basophil% 0.2 % (0-1); Eosinophil# 0.01 X10^3/uL; Eosinophils% 0.2 % (0-5); Hematocrit 43.5 % (40-54); Hemoglobin 14.3 g/dL (13.0-16.5); Lymphocyte # 0.31 X10^3/ul (0.83-4.51); Lymphocyte % 5.5 % (19-41); Mean Corp Hgb Conc 32.9 g/dL (32-36); Mean Corpuscular Hgb 29.6 pg (27.0-32.0); Mean Corpuscular Volume 90.1 fL (80-94); Mean Platelet Vol. 9.5 fl (6.2-12.0); Monocyte# 0.07 X10^3/uL; Monocyte% 1.2 % (0-10); NRBC Flagged by Analyzer 0 % (0-5); Neutrophil # 5.21 X10^3/uL (2.7-7.7); Neutrophil % 92.2 % (47-70); POSITIVE DIFFERENTIAL YES; Platelet Count 294 K/mm3 (150-450); RBC Distribution Width CV 13.5 % (11.6-14.6); RBC Distribution Width SD 44.7 fl (35.1-43.9); Red Blood Count 4.83 M/mm3 (4.6-6.2); White Blood Count 5.7 K/mm3 (4.4-11.0)
[2021-08-29 05:13] LABS: Differential Indicated SCAN CRITERIA MET
[2021-08-29 05:14] LABS: Anion Gap 7 (5-15); BUN 16 mg/dL (7-18); BUN/Creat Ratio 18.6 RATIO (10-20); Calcium,Total 8.7 mg/dL (8.5-10.1); Chloride 106 mmol/L (98-107); Creatinine, Serum 0.86 mg/dL (0.70-1.30); EST Glomerular Filtration Rate 97 mL/min (>60); Est Glom Filt Rate - Afr Amer 117 mL/min (>60); Estimated Creatinine Clearance 84.55 ml/min; Glucose 144 mg/dL (74-106); Potassium 5.2 mmol/L (3.5-5.1); Sodium Level 138 mmol/L (136-145)
--- NOTE | 2021-08-29 06:08 | EX.PCM.CONCC ---
Assessment & Plan Assessment/Plan (1) COPD exacerbation: PLAN: RECOMMENDATIONS: 1. Wean supplemental oxygen to maintain saturations at or above 90%. 2. Obtain CTA chest to evaluate for pulmonary embolism. 3. Continue scheduled bronchodilators. 4. Continue IV steroids. 5. Continue prophylactic Lovenox. 6. Antimicrobials to complete 7 days of therapy. IMPRESSIONS: 1. Acute hypoxemic respiratory failure While the patient does have a known asthma/COPD overlap syndrome, he does not have a baseline oxygen requirement. He does have a history of frequent exacerbations along with medical compliance issues. I do suspect that his current exacerbation may be secondary to noncompliance with his prescribed maintenance inhaler regimen coupled with underlying anxiety. CTA chest was negative for pulmonary embolism but did reveal sequelae of possible bronchitis. Therefore, it is reasonable to continue the patient on antimicrobials to complete 7 days of therapy. In addition, he will be continued on scheduled bronchodilators and steroids. The patient will also be placed on scheduled BuSpar twice daily due to underlying anxiety. Continue supplemental oxygen as needed to maintain saturations at or above 90%. 2. History of ischemic cardiomyopathy/prior pulmonary embolism/chronic tobacco dependency in remission/hyperlipidemia Complicates care, management, recovery and prognosis. Continue home medications as indicated. This note was generated with [employer] dictation software. It may contain incorrect words, spelling, and punctuation that were not noted in checking the note before signing. HPI Consult Data Date of Consult: 08/29/21 HPI Narrative Reason for Consultation: COPD exacerbation HPI Narrative: The patient is a 60-year-old male, with a history as outlined below, who presented to the emergency department on August 28 with worsening dyspnea. The patient has a history of asthma/COPD overlap syndrome and is currently followed by Dr. Devries in the pulmonary medicine clinic. In fact, the patient was last seen at the beginning of August 2021, at which time, he was felt to be experiencing an exacerbation. The patient has a history of frequent exacerbations along with medical compliance issues in the past. The patient was last admitted to the hospital in June 2021 with an exacerbation that did require intubation. The patient's medical history is also significant for ischemic cardiomyopathy along with history of pulmonary embolism. On presentation to the emergency department, the patient was noted to be afebrile but was tachycardic and tachypneic. Initial laboratory evaluation revealed no evidence of a leukocytosis. Initial chemistry profile was unremarkable. Rapid coronavirus antigen testing was negative. Prior sputum culture dated August 04 was positive for Klebsiella pneumonia. It does appear that the patient was given a prescription for Levaquin by the pulmonary medicine clinic at that time. Chest x-ray demonstrated hyperinflated lung noe without an acute cardiopulmonary process. The patient does not utilize supplemental oxygen at his baseline. He reported to me that he quit smoking approximately 1 month ago. According to documentation, the patient is supposed to be utilizing Asmanex and Spiriva. However, he was unable to tell me what medications he is utilizing and went on a daily basis. Therefore, his compliance with his prescribed inhaler regimen is questionable. [facility] Medical History (Updated 08/28/21 @ 22:[address] Román Herndon MD) Atherosclerotic heart disease of [place] coronary artery without angina pectoris BPH (benign prostatic hyperplasia) CAD (coronary artery disease) COPD (chronic obstructive pulmonary disease) HLD (hyperlipidemia) Ischemic cardiomyopathy Old myocardial infarction Paroxysmal atrial tachycardia Paroxysmal ventricular tachycardia Premature ventricular contraction Presence of stent in coronary artery (~06/27/08) Septic shock Home Medications clopidogrel 75 mg PO QHS 06/16/13 [History Last Taken 05/13/19 20:00 75 mg] cholecalciferol (vitamin D3) 2,000 units PO QHS 03/25/16 [History Last Taken 05/13/19] omeprazole 40 mg PO DAILY 05/13/17 [History Last Taken 05/13/19 08:00] aspirin 81 mg PO DAILY@0800 06/20/17 [History Last Taken 05/13/19 08:00] cyanocobalamin (vitamin B-12) 1,000 mcg tablet 1,000 mcg PO QHS 10/15/17 [History Last Taken 05/13/19 20:00 1000 mcg] cetirizine 10 mg PO QHS 12/14/17 [History Last Taken 05/13/19 10 mg] mometasone-formoterol 2 puff IH BID 06/30/18 [History Last Taken 05/13/19 04:00] levocetirizine 5 mg tablet 5 mg PO DAILY 09/23/19 [History Last Taken Unknown] trazodone 50 mg tablet 75 mg PO QHS tab 09/23/19 [History Last Taken Unknown] atorvastatin 20 mg tablet 20 mg PO DAILY #90 tab 01/04/20 [Rx Last Taken Unknown] PEP device #1 ea 08/26/20 [Rx Last Taken Unknown] montelukast 10 mg tablet 10 mg PO QPM #30 tab 05/21/21 [Rx Last Taken Unknown] prednisone See Taper PO DAILY 20 Days #16 tab 07/02/21 [Rx Last Taken Unknown] prednisone 40 mg PO DAILY 10 Days #20 tab 07/31/21 [Rx Last Taken Unknown] albuterol sulfate 90 mcg/actuation aerosol inhaler 2 puff INHALATION Q2H PRN #18 g 08/02/21 [Rx Last Taken Unknown] guaifenesin 1,200 mg tablet, extended release 12 hr 1,200 mg PO Q12H #60 tab 08/04/21 [Rx Last Taken Unknown] tiotropium 2.5 mcg-olodaterol 2.5 mcg/actuation mist for inhalation 2 inh INHALATION DAILY #4 g 08/04/21 [Rx Last Taken Unknown] Allergy/AdvReac Type Severity Reaction Status Date / Time latex Allergy Rash Verified 08/28/21 18:11 varenicline tartrate Allergy Hives Verified 08/28/21 18:11 [From Chantix] aspirin AdvReac Upset Verified 08/28/21 18:11 Stomach Family History Father , age 50 CAD (coronary artery disease) Heart disease Myocardial infarction Mother Diabetes Brother Hypertension Surgical History History of hernia repair History of left hip replacement Presence of coronary angioplasty implant and graft (~06/27/08) Social History Smoking Status: Former smoker alcohol intake: never substance use type: does not use caffeine: Yes Type: coffee Number of servings: 3 what type of physical activity do you participate in: walking frequency: daily duration: 45-60 minutes/day seatbelt use: always do you feel safe at home: Yes ROS Constitutional Constitutional: Denies chills, fatigue or fever(s) Eyes Eyes: Denies blurry vision or change in vision ENT HEENT: Denies dizziness, epistaxis or headache(s) Cardiovascular Cardiovascular: Reports dyspnea; Denies chest pain Respiratory/Chest Respiratory/Chest: Reports cough, dyspnea and wheezing Gastrointestinal Gastrointestinal: Denies abdominal pain, diarrhea, nausea or vomiting Genitourinary Genitourinary: Denies difficulty urinating Musculoskeletal Musculoskeletal: Denies arthralgias, back pain or joint pain Integumentary Integumentary: Denies lesions, rash or skin ulcer Neurologic Neurologic: Denies abnormal gait or abnormal speech Psychiatric Psychiatric: Reports anxiety Endocrine Endocrinology: Denies fatigue Hematologic/Lymphatic Hematologic/Lymphatic: Denies easy bleeding or easy bruising Physical Exam Const alert and no apparent distress General Appearance: cooperative HEENT normocephalic and head/scalp atraumatic Eyes PERRL, EOMs intact bilaterally and conjunctivae normal Neck supple General: trachea midline Chest Chest Narrative: Increased AP diameter Resp Effort and Inspection: able to speak in complete sentences and tachypneic Auscultation: wheezes and diminished lung sounds Cardio S1 normal heart sound and S2 normal heart sound Rate: tachycardic GI normal to inspection, nondistended, normoactive bowel sounds Extremity no clubbing, cyanosis or edema Skin no rashes or lesions noted Neuro moves all extremities and no focal motor deficits Psych Mood & Affect: anxious Lab / Micro Data Result Diagrams: 08/29/21 04:50 08/29/21 04:50 Labs: Laboratory Results - last 24 hr 08/28/21 20:27: WBC 10.5, RBC 4.66, Hgb 13.8, Hct 42.4, MCV 91.0, MCH 29.6, MCHC 32.5, RDW Std Deviation 45.6 H, RDW Coeff of [place] 13.6, Plt Count 291, MPV 9.3, Immature Gran % (Auto) 0.600, Neut % (Auto) 75.5 H, Lymph % (Auto) 11.2 L, [place] % (Auto) 9.1, Eos % (Auto) 3.2, Baso % (Auto) 0.4, Absolute Neuts (auto) 7.9 H, Absolute Lymphs (auto) 1.18, Nucleated RBC % 0 08/28/21 20:27: Sodium 138, Potassium 3.9, Chloride 107, Carbon Dioxide 25.0, Anion Gap 6, BUN 16, Creatinine 1.00, Estim Creat Clear Calc 76.50, Est GFR (MDRD) Af Amer 98, Est GFR (MDRD) Non-Af 81, BUN/Creatinine Ratio 16.0, Glucose 109 H, Calcium 8.9 08/28/21 20:27: Troponin I High Sens 9 08/29/21 04:50: WBC 5.7, RBC 4.83, Hgb 14.3, Hct 43.5, MCV 90.1, MCH 29.6, MCHC 32.9, RDW Std Deviation 44.7 H, RDW Coeff of [place] 13.5, Plt Count 294, MPV 9.5, Immature Gran % (Auto) 0.700, Neut % (Auto) 92.2 H, Lymph % (Auto) 5.5 L, [place] % (Auto) 1.2, Eos % (Auto) 0.2, Baso % (Auto) 0.2, Absolute Neuts (auto) 5.2, Absolute Lymphs (auto) 0.31 L, Nucleated RBC % 0 08/29/21 04:50: Sodium 138, Potassium 5.2 H, Chloride 106, Carbon Dioxide 25.0, Anion Gap 7, BUN 16, Creatinine 0.86, Estim Creat Clear Calc 84.55, Est GFR (MDRD) Af Amer 117, Est GFR (MDRD) Non-Af 97, BUN/Creatinine Ratio 18.6, Glucose 144 H, Calcium 8.7 Micro: Microbiology 08/28/21 20:22 Nasal Secretion SARS-CoV-2 Antigen (Rapid) - Final Rhythm Strip Rhythm Strip: Sinus Rhythm Rate: 96 Ectopy: None Radiology Impression Chest X-Ray 08/28/21 21:19 IMPRESSION: COPD Electronically Signed: Les Infante MD at 22:33 EST , Service support , Charges/Coding Visit Charges Inpatient E&M: 67142 Init Hosp L3
[2021-08-29] MEDS: LORazepam 2 MG/ML Syringe 0.5 MG IV (06:25)
--- NOTE | 2021-08-29 06:25 | CT_ITS ---
HISTORY: Respiratory Failure TECHNIQUE: Helically acquired images were obtained of the chest following 100mL Isovue-370 IV contrast as per pulmonary angiogram protocol with 3D reconstructions. A radiation dose optimization technique was used for this scan. COMPARISON: August 28, 2021 chest radiograph, November 03, 2020 CT chest FINDINGS: # of images incl. paperwork: [id number] THYROID IMAGED PORTION: Unremarkable. PULMONARY ARTERIES: No pulmonary embolism. No gross arterial enlargement. AORTA/AORTIC ARCH: Mild atherosclerosis. No ectasia. No dissection. HEART/PERICARDIUM: No cardiomegaly. No significant pericardial fluid. Multivessel severe coronary atherosclerosis. ADENOPATHY: Bilateral hilar adenopathy measuring up to 1.2 cm in short axis on the right. Mediastinal nodes are unchanged from prior CT of 2 0.8 cm in short axis, precarinal LUNG PARENCHYMA: Hyperexpanded lungs. Diffuse emphysematous change similar to prior exam. Mild diffuse peribronchial thickening with scattered mucus or debris filling bronchi in the left lower lobe, axial image 102. No consolidation. No suspicious pulmonary mass. PLEURAL EFFUSION: None. PNEUMOTHORAX: None. UPPER ABDOMEN IMAGED PORTION: Unremarkable. MUSCULOSKELETAL: No acute osseous finding. CT/CTA Chest W/WO Contrast IMPRESSION: 1. No pulmonary embolism or evidence of consolidative pneumonia. 2. Peribronchial thickening concerning for acute on chronic bronchitis/bronchiolitis with mucus or debris filling distal left lower lobe bronchi. 3. Diffuse emphysematous change. 4. Reactive hilar adenopathy. Individualized dose optimization techniques were used for this CT. at 0813 Reported and signed by: Mark Sears MD Electronically Signed: Mark Sears MD at 8:12 EST Tel , Service support ,
--- NOTE | 2021-08-29 07:18 | PCM.PN.HOSP ---
Subjective Subjective Patient is a 60-year-old gentleman with underlying history of COPD presented with progressive shortness of breath and assessment of acute on chronic hypoxic respiratory failure secondary to COPD made admitted to the intensive care unit for further management Objective Data Objective Data Vital Signs: Vital Signs Temp Pulse Resp BP Pulse Ox 98 F 108 H 16 130/88 H 94 08/29/21 04:00 08/29/21 07:00 08/29/21 07:00 08/29/21 07:00 08/29/21 07:00 Oxygen Flow Rate (L/min) 3 Oxygen Delivery Method Nasal Cannula Weight: 64.637 kg Body Mass Index (BMI) 21.7 Intake & Output: Intake and Output for Last 24 Hours 08/27/21 08/28/21 08/29/21 23:59 23:59 23:59 Intake Total 100 / 100 Output Total 0 / 0 Balance 100 / 100 Lab / Micro Data Result Diagrams: 08/29/21 04:50 08/29/21 04:50 Labs: Laboratory Results - last 24 hr 08/28/21 20:27: WBC 10.5, RBC 4.66, Hgb 13.8, Hct 42.4, MCV 91.0, MCH 29.6, MCHC 32.5, RDW Std Deviation 45.6 H, RDW Coeff of [place] 13.6, Plt Count 291, MPV 9.3, Immature Gran % (Auto) 0.600, Neut % (Auto) 75.5 H, Lymph % (Auto) 11.2 L, [place] % (Auto) 9.1, Eos % (Auto) 3.2, Baso % (Auto) 0.4, Absolute Neuts (auto) 7.9 H, Absolute Lymphs (auto) 1.18, Nucleated RBC % 0 08/28/21 20:27: Sodium 138, Potassium 3.9, Chloride 107, Carbon Dioxide 25.0, Anion Gap 6, BUN 16, Creatinine 1.00, Estim Creat Clear Calc 76.50, Est GFR (MDRD) Af Amer 98, Est GFR (MDRD) Non-Af 81, BUN/Creatinine Ratio 16.0, Glucose 109 H, Calcium 8.9 08/28/21 20:27: Troponin I High Sens 9 08/29/21 04:50: WBC 5.7, RBC 4.83, Hgb 14.3, Hct 43.5, MCV 90.1, MCH 29.6, MCHC 32.9, RDW Std Deviation 44.7 H, RDW Coeff of [place] 13.5, Plt Count 294, MPV 9.5, Immature Gran % (Auto) 0.700, Neut % (Auto) 92.2 H, Lymph % (Auto) 5.5 L, [place] % (Auto) 1.2, Eos % (Auto) 0.2, Baso % (Auto) 0.2, Absolute Neuts (auto) 5.2, Absolute Lymphs (auto) 0.31 L, Nucleated RBC % 0 08/29/21 04:50: Sodium 138, Potassium 5.2 H, Chloride 106, Carbon Dioxide 25.0, Anion Gap 7, BUN 16, Creatinine 0.86, Estim Creat Clear Calc 84.55, Est GFR (MDRD) Af Amer 117, Est GFR (MDRD) Non-Af 97, BUN/Creatinine Ratio 18.6, Glucose 144 H, Calcium 8.7 Micro: Microbiology 08/28/21 20:22 Nasal Secretion SARS-CoV-2 Antigen (Rapid) - Final Radiography Diagnostic Testing: Radiology Impression Chest X-Ray 08/28/21 21:19 IMPRESSION: COPD Electronically Signed: Les Infante MD at 22:33 EST , Service support , Rhythm Strip Rhythm Strip: Sinus Rhythm Rate: 96 Ectopy: None Physical Exam Narrative GENERAL: Dyspneic at rest HEENT: Atraumatic; EYES; Anicteric, Normal Conjunctiva NECK; supple, normal thyroid, RESPIRATORY: Diminished to auscultation CARDIOVASCULAR: Regular S1 S2, GI: soft, normoactive bowel sounds, : No Renal angle tenderness; EXTREMITIES: No edema, no clubbing, MUSCULOSKELETAL: no muscle waisting NEURO: Awake; no lateralizing signs. SKIN: No Rash PSYCH; Flat affect Assessment & Plan Assessment/Plan (1) Respiratory failure: (2) Hypoxia: (3) Asthma exacerbation in COPD: (4) Presence of stent in coronary artery: (5) Old myocardial infarction: (6) HLD (hyperlipidemia): QUALIFIERS: Hyperlipidemia type: unspecified Qualified Code(s): E78.5 - Hyperlipidemia, unspecified (7) Nicotine abuse: PLAN: Patient is a 60-year-old gentleman with underlying history of COPD presented with progressive shortness of breath and assessment of acute on chronic hypoxic respiratory failure secondary to COPD made admitted to the intensive care unit for further management 1. Acute on chronic hypoxic and hypercapnic respiratory failure ?Secondary to COPD with acute exacerbation. Patient was initially placed on noninvasive ventilation BiPAP in addition to steroids antibiotics and aerosol treatment. Consultation was placed to pulmonary medicine Case discussed with Dr. Weems 2. Coronary artery disease ?Patient is on recommended medications including dual antiplatelet therapy and statin therapy 3. Dyslipidemia -Patient is on statin therapy, continued at home dose 4. Tobacco dependence - Counseled on cessation, offered nicotine patch for tobacco cravings 5. Suspected anxiety disorder ?Patient is on trazodone at night BuSpar ordered as needed 6. DVT prophylaxis ?SC Lovenox Advance planning; did discuss with the patient regarding advanced directives as well as CODE STATUS. Did explain the various scenarios involved ( FULL CODE, DNR CCA, DNR CCA with no intubation, and DNR CC and what each meant) patient elected to remain full code with CPR and intubation if needed. Order was placed. Time spent on discussion 18 minutes. Charges/Coding Visit Charges Inpatient E&M: 60425 Subs Hosp L3 Multi Select Codes Hospitalists' Procedures Procedures: 70964 Advncd Care Plan 30 Min
[2021-08-29] MEDS: Aspirin 81 MG TAB.CHEW PO (08:30)
[2021-08-29] MEDS: Pantoprazole Sodium 40 MG Tablet PO (08:30)
[2021-08-29] MEDS: busPIRone 5 MG Tablet 10 MG PO ×2 (10:02→21:07)
--- NOTE | 2021-08-29 12:50 | CASEMGMT ---
RN NELSON Face to Face with patient for initial transition planning/care coordination assessment. RN CM introduced self and role at [facility]. Patient lying in bed, alert and oriented, girlfriend at bedside. Patient willing to participate in assessment and is able to answer all questions appropriately. Care providers, pharmacy, and demographics verified. Patient wishes to discharge home, denies need for home health at this time. Will monitor for home oxygen. Patient states he has no further needs or concerns at this time. CM to follow for discharge planning needs that may arise. PCP: Jefe Specialists: Jaycob, sock lining stitcher; Won, data mining analyst Preferred Pharmacy: [facility], [place] Insurance: [employer] Prescription Benefit: yes Living Will/HPOA: yes, daughter Clarice Andrade. LNOK: daughter, girlfriend Living Arrangements: Patient lives with girlfriend in a first floor apartment with 3 steps and railing. Transportation: self, girlfriend DME/HHC: Patient states he has nebulizer at home. Patient denies previous HHC or SNF. No preferences for DME. Will monitor for need for home oxygen at discharge. Disposition Plan: Patient to discharge home with family support and follow-up plans in place. Eliana ESCUDERO, RN, CM
[2021-08-29] MEDS: Acetaminophen 325 MG Tablet 650 MG PO (16:19)
[2021-08-29] MEDS: Clopidogrel Bisulfate 75 MG Tablet PO (21:08)
[2021-08-29] MEDS: traZODone 50 MG Tablet 75 MG PO (21:08)
[2021-08-29] MEDS: Montelukast 10 MG Tablet PO (21:08)
[2021-08-29] MEDS: Atorvastatin Calcium 20 MG Tablet PO (21:09)
[2021-08-29] MEDS: Loratadine 10 MG Tablet PO (21:09)
--- NOTE | 2021-08-29 21:28 | PCS.PANDOC ---
PANDEMIC DOCUMENTATION INITIATED: Date: 04/17/2021 Time: 190
[2021-08-30] VITALS (21 sets, daily range): BP systolic 95–127; BP diastolic 55–79; PULSE 57–121; RESP 16–28; TEMP 36.5–37.2; O2SAT 92–98
[2021-08-30] MEDS: Ipratropium/Albuterol Sulfate 3 ML AMPUL.NEB INHALATION ×5 (04:02→18:55)
[2021-08-30 05:57] LABS: Absolute Lymphocyte Count 0.75 X10^3/uL (0.83-4.51); Absolute Neutrophil Count 8.8 X10^3/uL (2.0-7.7); Basophil# 0.01 X10^3/uL; Basophil% 0.1 % (0-1); Hematocrit 41.3 % (40-54); Hemoglobin 13.6 g/dL (13.0-16.5); Lymphocyte # 0.75 X10^3/ul (0.83-4.51); Lymphocyte % 6.9 % (19-41); Mean Corp Hgb Conc 32.9 g/dL (32-36); Mean Corpuscular Hgb 29.7 pg (27.0-32.0); Mean Corpuscular Volume 90.2 fL (80-94); Mean Platelet Vol. 9.5 fl (6.2-12.0); Monocyte# 1.25 X10^3/uL; Monocyte% 11.5 % (0-10); NRBC Flagged by Analyzer 0 % (0-5); Neutrophil # 8.75 X10^3/uL (2.7-7.7); Neutrophil % 80.8 % (47-70); Platelet Count 324 K/mm3 (150-450); RBC Distribution Width CV 13.5 % (11.6-14.6); RBC Distribution Width SD 44.6 fl (35.1-43.9); Red Blood Count 4.58 M/mm3 (4.6-6.2); White Blood Count 10.8 K/mm3 (4.4-11.0)
[2021-08-30] MEDS: 0.9% Saline Lock 10 ML Syringe IV ×3 (06:10→20:53)
[2021-08-30 06:28] LABS: Anion Gap 5 (5-15); BUN 23 mg/dL (7-18); BUN/Creat Ratio 25.1 RATIO (10-20); Calcium,Total 8.9 mg/dL (8.5-10.1); Chloride 102 mmol/L (98-107); Creatinine, Serum 0.92 mg/dL (0.70-1.30); EST Glomerular Filtration Rate 90 mL/min (>60); Est Glom Filt Rate - Afr Amer 108 mL/min (>60); Estimated Creatinine Clearance 79.04 ml/min; Glucose 154 mg/dL (74-106); Magnesium 2.4 mg/dL (1.6-2.6); Sodium Level 137 mmol/L (136-145)
[2021-08-30] MEDS: Pantoprazole Sodium 40 MG Tablet PO (08:09)
[2021-08-30] MEDS: guaiFENesin 1,200 MG Tablet 1200 MG PO ×2 (08:09→20:53)
[2021-08-30] MEDS: Aspirin 81 MG TAB.CHEW PO (08:09)
[2021-08-30] MEDS: busPIRone 5 MG Tablet 10 MG PO ×2 (08:09→20:53)
--- NOTE | 2021-08-30 14:07 | PCM.PN.INT ---
Assessment & Plan Assessment/Plan (1) COPD exacerbation: PLAN: RECOMMENDATIONS: 1. Wean supplemental oxygen to maintain saturations at or above 90%. 2. Continue scheduled bronchodilators. 3. Continue IV steroids. Okay to transition to prednisone 40 mg daily beginning tomorrow. 4. Continue prophylactic Lovenox. 5. Antimicrobials to complete 7 days of therapy. 6. At discharge, recommend prednisone taper. 7. Encourage incentive spirometer use and mobilize patient as tolerated. 8. The patient should follow-up in the pulmonary medicine clinic within 2 weeks of discharge. IMPRESSIONS: 1. Acute hypoxemic respiratory failure While the patient does have a known asthma/COPD overlap syndrome, he does not have a baseline oxygen requirement. He does have a history of frequent exacerbations along with medical compliance issues. I do suspect that his current exacerbation may be secondary to noncompliance with his prescribed maintenance inhaler regimen coupled with underlying anxiety. CTA chest was negative for pulmonary embolism but did reveal sequelae of possible bronchitis. Therefore, it is reasonable to continue the patient on antimicrobials to complete 7 days of therapy. In addition, he will be continued on scheduled bronchodilators and steroids. The patient will also be placed on scheduled BuSpar twice daily due to underlying anxiety. Continue supplemental oxygen as needed to maintain saturations at or above 90%. 2. History of ischemic cardiomyopathy/prior pulmonary embolism/chronic tobacco dependency in remission/hyperlipidemia Complicates care, management, recovery and prognosis. Continue home medications as indicated. This note was generated with [employer] dictation software. It may contain incorrect words, spelling, and punctuation that were not noted in checking the note before signing. Subjective Subjective The patient was seen and examined at the bedside this morning. Events from the last 24 hours have been reviewed. The patient is currently afebrile, hemodynamically stable and maintaining appropriate oxygen saturations on 4 L/min via nasal cannula. The patient is feeling better today. He remains on antimicrobials, scheduled bronchodilators and IV steroids. He appears to be tolerating BuSpar as ordered. Objective Data Objective Data The patient's most recent lab work, culture data and imaging studies have all been personally reviewed. Rapid coronavirus antigen testing was negative. RSV and rapid flu were also negative. Vital Signs: Vital Signs Temp Pulse Resp BP Pulse Ox 97.7 F L 91 17 110/68 96 08/30/21 08:10 08/30/21 11:00 08/30/21 10:41 08/30/21 08:10 08/30/21 08:11 Oxygen Flow Rate (L/min) 4 Oxygen Delivery Method Nasal Cannula Weight: 64.637 kg Body Mass Index (BMI) 21.7 Intake & Output: Intake and Output for Last 24 Hours 08/28/21 08/29/21 08/30/21 23:59 23:59 23:59 Intake Total 1060 / 1060 500 / 500 Output Total 850 / 850 1100 / 1100 Balance 210 / 210 -600 / -600 Lab / Micro Data Attestation: I reviewed the patient's lab results. Result Diagrams: 08/30/21 05:20 08/30/21 05:20 Labs: Laboratory Results - last 24 hr 08/30/21 05:20: WBC 10.8, RBC 4.58 L, Hgb 13.6, Hct 41.3, MCV 90.2, MCH 29.7, MCHC 32.9, RDW Std Deviation 44.6 H, RDW Coeff of [place] 13.5, Plt Count 324, MPV 9.5, Immature Gran % (Auto) 0.700, Neut % (Auto) 80.8 H, Lymph % (Auto) 6.9 L, [place] % (Auto) 11.5 H, Eos % (Auto) 0.0, Baso % (Auto) 0.1, Absolute Neuts (auto) 8.8 H, Absolute Lymphs (auto) 0.75 L, Nucleated RBC % 0 08/30/21 05:20: Sodium 137, Potassium 5.0, Chloride 102, Carbon Dioxide 30.0, Anion Gap 5, BUN 23 H, Creatinine 0.92, Estim Creat Clear Calc 79.04, Est GFR (MDRD) Af Amer 108, Est GFR (MDRD) Non-Af 90, BUN/Creatinine Ratio 25.1 H, Glucose 154 H, Calcium 8.9, Magnesium 2.4 Micro: Microbiology 08/29/21 08:53 Mucosa - Nasopharyngeal Rapid RSV (DFA) - Final 08/29/21 08:53 Mucosa - Nasopharyngeal Influenza Types A,B Direct FA (BERTHA) - Final 08/28/21 20:22 Nasal Secretion SARS-CoV-2 Antigen (Rapid) - Final Rhythm Strip Rhythm Strip: Sinus Rhythm Rate: 96 Ectopy: None Physical Exam Const alert and no apparent distress General Appearance: cooperative HEENT normocephalic and head/scalp atraumatic Eyes PERRL, EOMs intact bilaterally and conjunctivae normal Neck supple General: trachea midline Chest Chest Narrative: Increased AP diameter Resp Auscultation: diminished lung sounds; Negative for rales, rhonchi or wheezes Cardio regular rate and regular rhythm GI normal to inspection, nondistended, normoactive bowel sounds Extremity no clubbing, cyanosis or edema Skin no rashes or lesions noted Neuro moves all extremities and no focal motor deficits Psych cooperative Charges/Coding Visit Charges Inpatient E&M: 50289 Subs Hosp L2
--- NOTE | 2021-08-30 16:13 | PCM.PN.HOSP ---
Subjective Subjective Patient was admitted on BiPAP in ICU. Subsequently transferred to PCU yesterday. Patient is still short of breath. Has advanced COPD and follows Dr. Devries. He is not on home oxygen probably was borderline last time. Objective Data Objective Data Vital Signs: Vital Signs Temp Pulse Resp BP Pulse Ox 97.9 F 91 18 103/73 98 08/30/21 14:10 08/30/21 15:53 08/30/21 15:53 08/30/21 14:10 08/30/21 14:10 Oxygen Flow Rate (L/min) 4 Oxygen Delivery Method Nasal Cannula Weight: 142 lb 8.003 oz Body Mass Index (BMI) 21.7 Intake & Output: Intake and Output for Last 24 Hours 08/28/21 08/29/21 08/30/21 23:59 23:59 23:59 Intake Total 1060 / 1060 500 / 500 Output Total 850 / 850 1100 / 1100 Balance 210 / 210 -600 / -600 Lab / Micro Data Result Diagrams: 08/30/21 05:20 08/30/21 05:20 Labs: Laboratory Results - last 24 hr 08/30/21 05:20: WBC 10.8, RBC 4.58 L, Hgb 13.6, Hct 41.3, MCV 90.2, MCH 29.7, MCHC 32.9, RDW Std Deviation 44.6 H, RDW Coeff of [place] 13.5, Plt Count 324, MPV 9.5, Immature Gran % (Auto) 0.700, Neut % (Auto) 80.8 H, Lymph % (Auto) 6.9 L, [place] % (Auto) 11.5 H, Eos % (Auto) 0.0, Baso % (Auto) 0.1, Absolute Neuts (auto) 8.8 H, Absolute Lymphs (auto) 0.75 L, Nucleated RBC % 0 08/30/21 05:20: Sodium 137, Potassium 5.0, Chloride 102, Carbon Dioxide 30.0, Anion Gap 5, BUN 23 H, Creatinine 0.92, Estim Creat Clear Calc 79.04, Est GFR (MDRD) Af Amer 108, Est GFR (MDRD) Non-Af 90, BUN/Creatinine Ratio 25.1 H, Glucose 154 H, Calcium 8.9, Magnesium 2.4 Micro: Microbiology 08/29/21 08:53 Mucosa - Nasopharyngeal Rapid RSV (DFA) - Final 08/29/21 08:53 Mucosa - Nasopharyngeal Influenza Types A,B Direct FA (BERTHA) - Final 08/28/21 20:22 Nasal Secretion SARS-CoV-2 Antigen (Rapid) - Final Rhythm Strip Rhythm Strip: Sinus Rhythm Rate: 96 Ectopy: None Physical Exam Narrative General: Alert, Oriented x3, Cooperative HEENT: Atraumatic, PERRLA, EOMI, Normocephalic Oral: No Gingival or Mucosal Lesions/ Ulcerations Neck: Supple, No JVD, Negative Carotid Bruits Lungs: Air entry severely diminished bilaterally. Dyspnea on exertion. Bilateral expiratory rhonchi. Cardiovascular: Sinus rhythm, Normal S1, Normal S2, No murmurs Abdomen: Bowel Sounds Present, Soft, Non Tender, Non-Distended : No renal angle tenderness. No suprapubic tenderness. Extremities: No edema, Capillary Refill Less than 3 Seconds Skin: No rashes, No breakdown Musculoskeletal: No Tenderness to Palpation of Joints or Extremities. ROM full Neurological: Cranial nerves II-XII grossly intact, DTR 2+/4 and Symmetrical, Neuro grossly intact Psych/Mental Status: Normal Affect, Appropriate. Assessment & Plan Assessment/Plan (1) Respiratory failure: (2) Hypoxia: (3) Asthma exacerbation in COPD: (4) Presence of stent in coronary artery: (5) Old myocardial infarction: (6) HLD (hyperlipidemia): QUALIFIERS: Hyperlipidemia type: unspecified Qualified Code(s): E78.5 - Hyperlipidemia, unspecified (7) Nicotine abuse: PLAN: Patient is a 60-year-old gentleman with underlying history of COPD presented with progressive shortness of breath and assessment of acute on chronic hypoxic respiratory failure secondary to COPD made admitted to the intensive care unit for further management 1. Acute on chronic hypoxic and hypercapnic respiratory failure due to COPD exacerbation mostly due to noncompliance: Continue home bronchodilator, steroid, incentive spirometry and Pep. CT chest negative for PE but showed evidence of bronchiolitis with mucus or debris filling therefore on antibiotic Levaquin. Pulmonary consult reviewed and advised steroid taper along with antibiotic to complete a total of 7 days. 2. Coronary artery disease ?Patient is on recommended medications including dual antiplatelet therapy and statin therapy 3. Dyslipidemia -Patient is on statin therapy, continued at home dose 4. Tobacco dependence - Counseled on cessation, offered nicotine patch for tobacco cravings 5. Suspected anxiety disorder ?Patient is on trazodone at night BuSpar ordered as needed 6. DVT prophylaxis ?SC Lovenox CODE STATUS: Full code Charges/Coding Visit Charges Inpatient E&M: 79404 Subs Hosp L2
[2021-08-30] MEDS: Montelukast 10 MG Tablet PO (20:54)
[2021-08-30] MEDS: Atorvastatin Calcium 20 MG Tablet PO (20:54)
[2021-08-30] MEDS: levoFLOXacin IV 500 MG/100 ML BAG 100 MG IV (20:54)
[2021-08-30] MEDS: Loratadine 10 MG Tablet PO (20:54)
[2021-08-30] MEDS: Clopidogrel Bisulfate 75 MG Tablet PO (20:54)
[2021-08-30] MEDS: traZODone 50 MG Tablet 75 MG PO (20:54)
[2021-08-30] MEDS: Fluticasone 0.05% 1 SPRAY NASAL.SRY NASAL (21:00)
[2021-08-31] VITALS (7 sets, daily range): BP systolic 117–119; BP diastolic 77–83; PULSE 85–93; RESP 20–24; TEMP 36.5–36.9; O2SAT 90–96
[2021-08-31] MEDS: 0.9% Saline Lock 10 ML Syringe IV (05:01)
[2021-08-31 05:40] LABS: Absolute Lymphocyte Count 0.74 X10^3/uL (0.83-4.51); Absolute Neutrophil Count 9.1 X10^3/uL (2.0-7.7); Basophil# 0.01 X10^3/uL; Basophil% 0.1 % (0-1); Hematocrit 40.9 % (40-54); Hemoglobin 13.9 g/dL (13.0-16.5); Lymphocyte # 0.74 X10^3/ul (0.83-4.51); Lymphocyte % 6.6 % (19-41); Mean Corpuscular Hgb 30.3 pg (27.0-32.0); Mean Corpuscular Volume 89.3 fL (80-94); Mean Platelet Vol. 9.4 fl (6.2-12.0); Monocyte# 1.19 X10^3/uL; Monocyte% 10.7 % (0-10); NRBC Flagged by Analyzer 0 % (0-5); Neutrophil # 9.14 X10^3/uL (2.7-7.7); Platelet Count 312 K/mm3 (150-450); RBC Distribution Width CV 13.5 % (11.6-14.6); RBC Distribution Width SD 44.2 fl (35.1-43.9); Red Blood Count 4.58 M/mm3 (4.6-6.2); White Blood Count 11.2 K/mm3 (4.4-11.0)
[2021-08-31 06:12] LABS: Anion Gap 8 (5-15); BUN 20 mg/dL (7-18); BUN/Creat Ratio 20.5 RATIO (10-20); Calcium,Total 8.8 mg/dL (8.5-10.1); Chloride 102 mmol/L (98-107); Creatinine, Serum 0.98 mg/dL (0.70-1.30); EST Glomerular Filtration Rate 83 mL/min (>60); Est Glom Filt Rate - Afr Amer 101 mL/min (>60); Glucose 131 mg/dL (74-106); Sodium Level 138 mmol/L (136-145)
[2021-08-31] MEDS: Ipratropium/Albuterol Sulfate 3 ML AMPUL.NEB INHALATION ×2 (06:54→11:12)
[2021-08-31] MEDS: busPIRone 5 MG Tablet 10 MG PO (08:13)
[2021-08-31] MEDS: Pantoprazole Sodium 40 MG Tablet PO (08:13)
[2021-08-31] MEDS: guaiFENesin 1,200 MG Tablet 1200 MG PO (08:13)
[2021-08-31] MEDS: Aspirin 81 MG TAB.CHEW PO (08:13)
[2021-08-31] MEDS: Fluticasone 0.05% 1 SPRAY NASAL.SRY NASAL (08:14)
--- NOTE | 2021-08-31 09:34 | CASEMGMT ---
Addendum entered by Eliana Yu 08/31/21 09:36: Pt voices no further questions/concerns/needs. Angella SCHULTZ CM Original Note: Per Ritika RN, pt does not qualify for home oxygen at discharge. Angella SCHULTZ CM
--- NOTE | 2021-08-31 10:06 | DCINST_ITS ---
Discharge Instructions Diet Discharge Diet: Low fat / Low cholesterol and 2000 mg Sodium Diet Activity Discharge Activity: Return to Normal Activity and May Not Drive Weight Bearing Status: Weight bearing as tolerated Dressing / Incision Call your doctor if you observe: Fever of 101 or Higher, Coldness, Increased Pain, Numbness or Tingling, Change in Color, Inability to urinate, Inability to have a bowel movement, Shortness of breath, Dizziness, Fainting spells, Swelling in the ankles, Chest pain, Prolonged hiccupping, Increased palpitations (irregular heartbeat) and Calf discomfort Follow Up Care Test Results: Test results from this visit will be discussed in further detail at your follow-up appointment, if applicable. Discharge Plan Admission Admit Date/Time: 08/28/21 23:08 Primary Reason for Your Visit: Acute COPD exacerbation Attending Provider: Jese Antonio Primary Care Provider: Alexey Mayberry Consulting Providers: Bruce Devries ; Nic Weems ; Debbi Schaffer CARPENTRY SUPERVISOR Discharge Orders/Prescriptions Prescriptions: New buspirone 5 mg Tablet 10 mg PO BID Qty: 30 RF: 0 prednisone 20 mg tablet 20 mg PO DAILY Qty: 30 RF: 0 levofloxacin 500 mg tablet 500 mg PO DAILY Qty: 5 RF: 0 Continued cyanocobalamin (vitamin B-12) 1,000 mcg tablet 1,000 mcg PO QHS RF: 0 trazodone 50 mg tablet 75 mg PO QHS RF: 0 (DME) PEP device See Rx Instructions .ROUTE .MEDSUPPLY Qty: 1 RF: 0 Stiolto Respimat 2.5-2.5 mcg/actuation mist 2 inh inhalation DAILY Qty: 4 RF: 2 clopidogrel 75 MG tablet 75 mg PO QHS RF: 0 omeprazole 20 MG capsule 40 mg PO DAILY RF: 0 aspirin 81 MG tablet,chewable 81 mg PO DAILY@0800 RF: 0 cetirizine 10 MG capsule 10 mg PO QHS RF: 0 mometasone-formoterol 8.8 GM HFA aerosol inhaler 2 puff IH BID RF: 0 atorvastatin 20 mg tablet 20 mg PO DAILY Qty: 90 RF: 3 montelukast 10 mg tablet 10 mg PO QPM Qty: 30 RF: 3 albuterol sulfate 90 mcg/actuation HFA aerosol inhaler 2 puff INHALATION Q2H PRN (Reason: Asthma) Qty: 18 RF: 6 Changed cholecalciferol (vitamin D3) 1,000 UNIT tablet 2,000 unit PO QHS Qty: 60 RF: 0 guaifenesin 1,200 mg tablet extended release 12hr 1,200 mg PO BID Qty: 14 RF: 0 Discontinued levocetirizine 5 mg tablet 5 mg PO DAILY RF: 0 prednisone 10 mg tablet See Taper mg PO DAILY 20 Days Qty: 16 RF: 0 prednisone 20 mg tablet 40 mg PO DAILY 10 Days Qty: 20 RF: 0 Referrals / Follow Up: Bruce Devries MD [STAFF PHYSICIAN] - Within 2 Weeks (With Debbi Andrade in 2 weeks) Alexey Mayberry MD [Primary Care Provider] - In 1 Week Disposition Disposition (needs filled in before D/C Order can be placed): Home, Self Care
--- NOTE | 2021-08-31 12:22 | PCM.DC.SUM ---
Providers Date of Admission: 08/28/21 Primary Care Physician: Dr. Alexey Mayberry MD Consultations 08/29/21 00:03 Consult: [employer] Supervisor / Pulmonary Medicine Routine Consulting Provider: Pulmonary Medicine bairon Sierra Reason for Consult: icu EMERGENT Consult: No MD Notified: Yes Date Notified: 08/28/21 Time Notified: 23:14 Method of Notification: Text Reason For Visit: SOB Diagnosis Discharge Diagnosis (1) Respiratory failure: Status: Acute Code(s): J96.90 - Respiratory failure, unspecified, unspecified whether with hypoxia or hypercapnia (2) Hypoxia: Status: Acute Code(s): R09.02 - Hypoxemia (3) Asthma exacerbation in COPD: Status: Acute Code(s): J44.1 - Chronic obstructive pulmonary disease with (acute) exacerbation; J45.901 - Unspecified asthma with (acute) exacerbation (4) Presence of stent in coronary artery: Status: Chronic Code(s): Z95.5 - Presence of coronary angioplasty implant and graft (5) Old myocardial infarction: Status: Chronic Code(s): I25.2 - Old myocardial infarction (6) HLD (hyperlipidemia): Status: Chronic Code(s): E78.5 - Hyperlipidemia, unspecified Qualifiers: Hyperlipidemia type: unspecified Qualified Code(s): E78.5 - Hyperlipidemia, unspecified (7) Nicotine abuse: Status: Chronic Code(s): Z72.0 - Tobacco use Medications at Discharge Home Medications clopidogrel 75 mg PO QHS 06/16/13 omeprazole 40 mg PO DAILY 05/13/17 aspirin 81 mg PO DAILY@0800 06/20/17 cyanocobalamin (vitamin B-12) 1,000 mcg tablet 1,000 mcg PO QHS 10/15/17 cetirizine 10 mg PO QHS 12/14/17 mometasone-formoterol 2 puff IH BID 06/30/18 trazodone 50 mg tablet 75 mg PO QHS tab 09/23/19 atorvastatin 20 mg tablet 20 mg PO DAILY #90 tab 01/04/20 PEP device #1 ea 04/27/20 montelukast 10 mg tablet 10 mg PO QPM #30 tab 05/21/21 albuterol sulfate 90 mcg/actuation aerosol inhaler 2 puff INHALATION Q2H PRN #18 g 08/02/21 tiotropium 2.5 mcg-olodaterol 2.5 mcg/actuation mist for inhalation 2 inh INHALATION DAILY #4 g 08/04/21 buspirone 10 mg PO BID #30 tab 08/31/21 cholecalciferol (vitamin D3) 2,000 unit PO QHS #60 tab 08/31/21 guaifenesin 1,200 mg PO BID #14 tab 08/31/21 levofloxacin 500 mg PO DAILY #5 tab 08/31/21 prednisone 20 mg PO DAILY #30 tab 08/31/21 Hospital Course Summary of Care Provided Hospital Course: Patient is a 60-year-old gentleman with underlying history of COPD presented with progressive shortness of breath and assessment of acute on chronic hypoxic respiratory failure secondary to COPD made admitted to the intensive care unit for further management 1. Acute on chronic hypoxic and hypercapnic respiratory failure due to COPD exacerbation mostly due to noncompliance: Continue home bronchodilator, steroid, incentive spirometry and Pep. CT chest negative for PE but showed evidence of bronchiolitis with mucus or debris filling therefore on antibiotic Levaquin. Pulmonary consult reviewed and advised steroid taper along with antibiotic to complete a total of 7 days. Patient given a prescription of Levaquin to complete of 10 days and prolonged prednisone taper. 2. Coronary artery disease ?Patient is on recommended medications including dual antiplatelet therapy and statin therapy 3. Dyslipidemia -Patient is on statin therapy, continued at home dose 4. Tobacco dependence - Counseled on cessation, offered nicotine patch for tobacco cravings 5. Suspected anxiety disorder ?Patient is on trazodone at night BuSpar ordered as needed The patient also given a prescription of BuSpar to relieve anxiety. 6. DVT prophylaxis ?SC Lovenox CODE STATUS: Full code Discharge medication reconciliation done. Discharge follow-up instructions completed. Discharge process discussed with the patient and all questions were answered to patient's satisfaction. Discharged home and follow-up in pulmonary clinic in 2 weeks. Total time spent, exact 35 minutes on discharge meds reconciliation, examination, coordination of care with nurses and ancillary staff, review of imaging and blood test and discussion with the patient on follow-up instructions Physical Exam Narrative Was seen and examined on the day of discharge. General: Alert, Oriented x3, Cooperative HEENT: Atraumatic, PERRLA, EOMI, Normocephalic Oral: No Gingival or Mucosal Lesions/ Ulcerations Neck: Supple, No JVD, Negative Carotid Bruits Lungs: Air entry severely diminished bilaterally. No hypoxia. Bilateral expiratory rhonchi much improved Cardiovascular: Sinus rhythm, Normal S1, Normal S2, No murmurs Abdomen: Bowel Sounds Present, Soft, Non Tender, Non-Distended : No renal angle tenderness. No suprapubic tenderness. Extremities: No edema, Capillary Refill Less than 3 Seconds Skin: No rashes, No breakdown Musculoskeletal: No Tenderness to Palpation of Joints or Extremities. ROM full Neurological: Cranial nerves II-XII grossly intact, DTR 2+/4 and Symmetrical, Neuro grossly intact Psych/Mental Status: Normal Affect, Appropriate. Weight / BMI Weight Weight: 142 lb 8.003 oz Body Mass Index (BMI) 21.7 ABG / Lab / Microbiology Data Result Diagrams: 08/31/21 05:10 08/31/21 05:10 Laboratory: Laboratory Results - last 24 hr 08/31/21 05:10: WBC 11.2 H, RBC 4.58 L, Hgb 13.9, Hct 40.9, MCV 89.3, MCH 30.3, MCHC 34.0, RDW Std Deviation 44.2 H, RDW Coeff of [place] 13.5, Plt Count 312, MPV 9.4, Immature Gran % (Auto) 0.600, Neut % (Auto) 82.0 H, Lymph % (Auto) 6.6 L, [place] % (Auto) 10.7 H, Eos % (Auto) 0.0, Baso % (Auto) 0.1, Absolute Neuts (auto) 9.1 H, Absolute Lymphs (auto) 0.74 L, Nucleated RBC % 0 08/31/21 05:10: Sodium 138, Potassium 4.0, Chloride 102, Carbon Dioxide 28.0, Anion Gap 8, BUN 20 H, Creatinine 0.98, Estim Creat Clear Calc 74.20, Est GFR (MDRD) Af Amer 101, Est GFR (MDRD) Non-Af 83, BUN/Creatinine Ratio 20.5 H, Glucose 131 H, Calcium 8.8 Microbiology: Microbiology 08/29/21 08:53 Mucosa - Nasopharyngeal Rapid RSV (DFA) - Final 08/29/21 08:53 Mucosa - Nasopharyngeal Influenza Types A,B Direct FA (BERTHA) - Final 08/28/21 20:22 Nasal Secretion SARS-CoV-2 Antigen (Rapid) - Final D/C Instructions Discharge Diet: Low fat / Low cholesterol and 2000 mg Sodium Diet Weight Bearing Status: Weight bearing as tolerated Call your doctor if you observe: Fever of 101 or Higher, Coldness, Increased Pain, Numbness or Tingling, Change in Color, Inability to urinate, Inability to have a bowel movement, Shortness of breath, Dizziness, Fainting spells, Swelling in the ankles, Chest pain, Prolonged hiccupping, Increased palpitations (irregular heartbeat) and Calf discomfort Meaningful Use Info Meaningful Use Diagnoses (Choose all that apply): None applicable Discharge Plan Admission Admit Date/Time: 08/28/21 23:08 Primary Reason for Your Visit: Acute COPD exacerbation Attending Provider: Jese Antonio Primary Care Provider: Alexey Mayberry Consulting Providers: Bruce Devries ; Nic Weems ; Debbi Schaffer [employer] Discharge Orders/Prescriptions Prescriptions: New buspirone 5 mg Tablet 10 mg PO BID Qty: 30 RF: 0 prednisone 20 mg tablet 20 mg PO DAILY Qty: 30 RF: 0 levofloxacin 500 mg tablet 500 mg PO DAILY Qty: 5 RF: 0 Continued cyanocobalamin (vitamin B-12) 1,000 mcg tablet 1,000 mcg PO QHS RF: 0 trazodone 50 mg tablet 75 mg PO QHS RF: 0 (DME) PEP device See Rx Instructions .ROUTE .MEDSUPPLY Qty: 1 RF: 0 Stiolto Respimat 2.5-2.5 mcg/actuation mist 2 inh inhalation DAILY Qty: 4 RF: 2 clopidogrel 75 MG tablet 75 mg PO QHS RF: 0 omeprazole 20 MG capsule 40 mg PO DAILY RF: 0 aspirin 81 MG tablet,chewable 81 mg PO DAILY@0800 RF: 0 cetirizine 10 MG capsule 10 mg PO QHS RF: 0 mometasone-formoterol 8.8 GM HFA aerosol inhaler 2 puff IH BID RF: 0 atorvastatin 20 mg tablet 20 mg PO DAILY Qty: 90 RF: 3 montelukast 10 mg tablet 10 mg PO QPM Qty: 30 RF: 3 albuterol sulfate 90 mcg/actuation HFA aerosol inhaler 2 puff INHALATION Q2H PRN (Reason: Asthma) Qty: 18 RF: 6 Changed cholecalciferol (vitamin D3) 1,000 UNIT tablet 2,000 unit PO QHS Qty: 60 RF: 0 guaifenesin 1,200 mg tablet extended release 12hr 1,200 mg PO BID Qty: 14 RF: 0 Discontinued levocetirizine 5 mg tablet 5 mg PO DAILY RF: 0 prednisone 10 mg tablet See Taper mg PO DAILY 20 Days Qty: 16 RF: 0 prednisone 20 mg tablet 40 mg PO DAILY 10 Days Qty: 20 RF: 0 Referrals / Follow Up: Bruce Devries MD [STAFF PHYSICIAN] - Within 2 Weeks (With Debbi Andrade in 2 weeks) Alexey Mayberry MD [Primary Care Provider] - In 1 Week Disposition Disposition (needs filled in before D/C Order can be placed): Home, Self Care Charges/Coding Visit Charges Inpatient E&M: 70649 Disch Hosp
--- NOTE | 2021-09-05 12:05 | CASEMGMT ---
Pt returned this RN NELSON's phone call for discharge followp-up. Pt states he is doing ok after discharge. States he has made his follow-up appointments with Dr. Mayberry and Dr. Devries. States he completed his antibiotic today, continues to take the prednisone but reports not having his buspirone or his rescue inhaler. States he went to [facility] pharmacy yesterday to obtain and they were closed. This RN CM contacted the [facility] who states they were closed yesterday but are open today. This RN NELSON attempted to call pt back and received his voicemail. Message left stating [facility] is open today for him to obtain his medication and contact number left if he has any additional questions or issues. Brian Chakraborty RN CM
== END 2021-08-31 13:34 | disposition home or self-care (01) | DRG 190 ==
LOC: ED 22:59 → ICU 23:18 → PCU 08-29 15:50
PROVIDERS: Internal Medicine; Admitting Provider Family Medicine; Emergency Provider Emergency Medicine; PCP Internal Medicine; Visit Provider Internal Medicine
DX: J44.1 Chronic obstructive pulmonary disease with (acute) exacerbation (principal); J96.22 Acute and chronic respiratory failure with hypercapnia; J96.21 Acute and chronic respiratory failure with hypoxia; J45.901 Unspecified asthma with (acute) exacerbation; J44.0 Chronic obstructive pulmonary disease with (acute) lower respiratory infection; I25.10 Atherosclerotic heart disease of native coronary artery without angina pectoris; E78.5 Hyperlipidemia, unspecified; F41.9 Anxiety disorder, unspecified; Z66 Do not resuscitate; I25.5 Ischemic cardiomyopathy; I25.2 Old myocardial infarction; Z95.5 Presence of coronary angioplasty implant and graft; Z86.711 Personal history of pulmonary embolism; Z91.19 Patient's noncompliance with other medical treatment and regimen; F17.200 Nicotine dependence, unspecified, uncomplicated; Z79.52 Long term (current) use of systemic steroids; Z79.82 Long term (current) use of aspirin; Z82.49 Family history of ischemic heart disease and other diseases of the circulatory system; Z83.3 Family history of diabetes mellitus; Z86.718 Personal history of other venous thrombosis and embolism; Z96.642 Presence of left artificial hip joint; Z91.040 Latex allergy status
CPT/HCPCS: 36415; 71045; 71275; 80048; 83735; 84484; 85025; 87426; 87804; 87807; 93005; 94002; 94003; 94640; 94667; 94760; 99283; 99406; Q9967; A4216

== ENCOUNTER 2021-09-15 09:34 | Emergency (ER) | payer MEDICARE, MEDICAID, SELFPAY ==
[2021-09-15 09:35] VITALS: BP 93/79; PULSE 101; RESP 18; TEMP 36.3; O2SAT 91; BMI 20.9
[2021-09-15] MEDS: 0.9% Normal Saline 1,000 ML 1000 ML IV ×2 (10:28→14:18)
[2021-09-15] MEDS: Loperamide 2 MG Capsule 4 MG PO (10:29)
[2021-09-15 10:47] LABS: Anion Gap 7 (5-15); BUN 17 mg/dL (7-18); BUN/Creat Ratio 18.8 RATIO (10-20); Calcium,Total 8.4 mg/dL (8.5-10.1); Chloride 95 mmol/L (98-107); Creatinine, Serum 0.91 mg/dL (0.70-1.30); EST Glomerular Filtration Rate 91 mL/min (>60); Est Glom Filt Rate - Afr Amer 110 mL/min (>60); Estimated Creatinine Clearance 76.43 ml/min; Glucose 109 mg/dL (74-106); Potassium 3.7 mmol/L (3.5-5.1); Sodium Level 129 mmol/L (136-145)
--- NOTE | 2021-09-15 11:04 | EDS_ITS ---
HPI History of Present Illness Chief Complaint: Fatigue Informant: patient Onset/Context/Timing Onset: Days (Onset of illness Saturday) Context: Sudden Onset Timing: Continuous and Waxes and wanes Quality: Nausea with diarrhea Location: GI Current Severity: Moderate Maximum Severity: Severe Worsened by: Nothing Relieved by: Nothing Associated Symptoms Associated Symptoms: Dry mouth, thirst fatigue Narrative Narrative: Patient is a 61-year-old male with multiple medical problems who presents because of fatigue, nausea and diarrhea. Onset of illness Saturday. His girlfriend's son who lives with them is ill. He has not had any tests. Patient denies objective fever. He does report intermittent chills. Denies night sweats. He denies headache, visual, ocular auditory symptoms. He denies sore throat. He denies loss of taste or smell. He denies cough, dyspnea on exertion, orthopnea or PND. He does report nausea with diarrhea. He denies vomiting. He states he has noted mucus in his stool. He has not noted black or maroon-colored diarrhea or blood. He denies myalgias or arthralgias. Prior similar symptoms: No Recent Illness/Hospitalization: No [facility] Medical History (Updated 09/15/21 @ 16:[address] Alvaro Muñiz MD) Atherosclerotic heart disease of [place] coronary artery without angina pectoris BPH (benign prostatic hyperplasia) CAD (coronary artery disease) COPD (chronic obstructive pulmonary disease) COPD exacerbation HLD (hyperlipidemia) Ischemic cardiomyopathy Nicotine abuse Old myocardial infarction Paroxysmal atrial tachycardia Paroxysmal ventricular tachycardia Premature ventricular contraction Presence of stent in coronary artery (~06/27/08) Septic shock Home Medications clopidogrel 75 mg PO QHS 06/16/13 [History Last Taken 05/13/19 20:00 75 mg] omeprazole 40 mg PO DAILY 05/13/17 [History Last Taken 05/13/19 08:00] aspirin 81 mg PO DAILY@0800 06/20/17 [History Last Taken 05/13/19 08:00] cyanocobalamin (vitamin B-12) 1,000 mcg tablet 1,000 mcg PO QHS 10/15/17 [History Last Taken 05/13/19 20:00 1000 mcg] cetirizine 10 mg PO QHS 12/14/17 [History Last Taken 05/13/19 10 mg] mometasone-formoterol 2 puff IH BID 06/30/18 [History Last Taken 05/13/19 04:00] trazodone 50 mg tablet 75 mg PO QHS tab 09/23/19 [History Last Taken Unknown] atorvastatin 20 mg tablet 20 mg PO DAILY #90 tab 01/04/20 [Rx Last Taken Unknown] PEP device #1 ea 04/27/20 [Rx Last Taken Unknown] montelukast 10 mg tablet 10 mg PO QPM #30 tab 05/21/21 [Rx Last Taken Unknown] albuterol sulfate 90 mcg/actuation aerosol inhaler 2 puff INHALATION Q2H PRN #18 g 08/02/21 [Rx Last Taken Unknown] tiotropium 2.5 mcg-olodaterol 2.5 mcg/actuation mist for inhalation 2 inh INHALATION DAILY #4 g 08/04/21 [Rx Last Taken Unknown] buspirone 10 mg PO BID #30 tab 08/31/21 [Rx Last Taken Unknown] cholecalciferol (vitamin D3) 2,000 unit PO QHS #60 tab 08/31/21 [Rx Last Taken Unknown] guaifenesin 1,200 mg PO BID #14 tab 08/31/21 [Rx Last Taken Unknown] levofloxacin 500 mg PO DAILY #5 tab 08/31/21 [Rx Last Taken Unknown] prednisone 20 mg PO DAILY #30 tab 08/31/21 [Rx Last Taken Unknown] nystatin 100,000 unit/mL oral suspension 5 ml MUCOUS MEMBRANE TID #250 ml 09/14/21 [Rx Last Taken Unknown] Allergy/AdvReac Type Severity Reaction Status Date / Time latex Allergy Rash Verified 09/15/21 09:34 varenicline tartrate Allergy Hives Verified 09/15/21 09:34 [From Chantix] aspirin AdvReac Upset Verified 09/15/21 09:34 Stomach Family History Father , age 50 CAD (coronary artery disease) Heart disease Myocardial infarction Mother Diabetes Brother Hypertension Surgical History History of hernia repair History of left hip replacement Presence of coronary angioplasty implant and graft (~06/27/08) Social History (Updated 09/15/21 @ 11:[address] Alvaro Muñiz MD) household members: significant other and children Smoking Status: Former smoker alcohol intake: never substance use type: does not use caffeine: Yes Type: coffee Number of servings: 3 what type of physical activity do you participate in: walking frequency: daily duration: 45-60 minutes/day seatbelt use: always do you feel safe at home: Yes ROS ROS ED Constitutional Constitutional ED: Reports chills and sweats; Denies fever(s) or weight loss Eyes Eyes: Denies blurry vision, change in vision or diplopia ENT ENT ED: Denies ear pain, rhinorrhea or sore throat Cardiovascular Cardiovascular: Denies chest pain, orthopnea, palpitations or paroxysmal nocturnal dyspnea Respiratory/Chest Respiratory/Chest: Denies cough, dyspnea, dyspnea on exertion, orthopnea or paroxysmal nocturnal dyspnea Gastrointestinal Gastrointestinal: Reports diarrhea and nausea; Denies abdominal pain, constipation, melena or vomiting Genitourinary Genitourinary ED: Denies dysuria, hematuria or urinary frequency Musculoskeletal Musculoskeletal: Denies arthralgias, back pain, myalgias or neck pain Integumentary Denies rash Neurologic Neurologic: Reports weakness; Denies headache(s) or paresthesias Endocrine Endocrinology: Denies polydipsia, polyphagia or polyuria Hematologic/Lymphatic Hematologic/Lymphatic: Denies anemia, easy bleeding or easy bruising EXAM Physical Exam Const Vital Signs: 09/15/21 09:35 09/15/21 09:52 09/15/21 11:09 Temperature 97.3 F L Temperature Source Temporal Pulse Rate 101 H 89 Respiratory Rate 18 22 H Respiratory Effort Normal Non-Labored Blood Pressure 93/79 99/75 Blood Pressure Mean 83 83 Pulse Ox 91 94 Oxygen Delivery Method Room Air Room Air 09/15/21 15:18 Temperature Temperature Source Pulse Rate Respiratory Rate 18 Respiratory Effort Blood Pressure Blood Pressure Mean Pulse Ox 99 Oxygen Delivery Method Positive well nourished and well developed General Appearance ED: well developed and NAD; Negative for cyanotic, diaphoretic or pallor HEENT Reports TM's clear and dry mucous membranes HEENT Narrative: Uvula midline. No erythema or exudate. Ears normal. Nares patent. There is no drainage. Negative for trauma or tenderness Tympanic Membrane ED: Yes TM's clear Mouth ED: Yes dry mucous membranes Mouth: dry mucous membranes Eyes PERRL and EOMs intact bilaterally General Eye ED: Negative for pale conjunctiva or scleral icterus Neck no lymphadenopathy, supple and no JVD Chest Wall inspection of chest normal and palpation of chest normal Resp normal respiratory effort and clear to auscultation bilaterally Effort and Inspection: Negative for pain with movement Cardio regular rate, regular rhythm, S1 normal heart sound, S2 normal heart sound and no murmurs GI non-tender and no masses; Negative for hepatosplenomegaly Auscultation: hyperactive bowel sounds Palpation: soft; Negative for splenomegaly or mass Back/Spine no CVA tenderness Thoracic Spine / Upper Back: Negative for thoracic spinal tenderness or paraspinal muscle tenderness Extremity normal to inspection General Extremety ED: Negative for edema or tenderness General Extremity: Negative for edema Neuro oriented x3 and CN's II-XII intact bilaterally Sensorium / Orientation: alert Motor Exam: strength 5/5 throughout Psych mental status grossly normal Skin no rashes or lesions noted and no wounds General Skin Exam: Negative for jaundice or pallor MDM MDM MDM Narrative Medical decision making narrative: Patient presents with GI symptoms. This could represent 1 of numerous viruses. In light of his age medical problems and since he is clinically dehydrated basic metabolic panel was obtained to assess BUN and creatinine as well as CO2 and anion gap. 1 L of normal saline was ordered and Imodium for his diarrhea. Patient has not urinated after 1 L of normal saline. Second liter was ordered. I was informed at 1650 the patient would like to go home. Will inform him that he is stable to go home to take Imodium for his diarrhea. Patient urine osmolarity is low. There is no findings concerning for SIADH. Lab Data Attestation: I reviewed the patient's lab results. Lab results narrative: Basic metabolic panel is remarkable for hyponatremia and hypo- Labs: Laboratory Results - last 24 hr 09/15/21 09/15/21 09/15/21 10:10 11:15 14:16 Sodium 129 L Potassium 3.7 Chloride 95 L Carbon Dioxide 27.0 Anion Gap 7 BUN 17 Creatinine 0.91 Estim Creat Clear Calc 76.43 Est GFR (MDRD) Af Amer 110 Est GFR (MDRD) Non-Af 91 BUN/Creatinine Ratio 18.8 Glucose 109 H Serum Osmolality 268 L Calcium 8.4 L Urine Osmolality 317 Discharge Plan Triage Chief Complaint: Fatigue ED Provider: Alvaro Muñiz Dx/Rx/DC Orders Clinical Impression: Diarrhea, Acute hyponatremia, Acute dehydration Instructions: Dehydration, ED Diarrhea, Unknown Cause, ED Hyponatremia Prescriptions: No Action cyanocobalamin (vitamin B-12) 1,000 mcg tablet 1,000 mcg PO QHS RF: 0 trazodone 50 mg tablet 75 mg PO QHS RF: 0 (DME) PEP device See Rx Instructions .ROUTE .MEDSUPPLY Qty: 1 RF: 0 Stiolto Respimat 2.5-2.5 mcg/actuation mist 2 inh inhalation DAILY Qty: 4 RF: 2 clopidogrel 75 MG tablet 75 mg PO QHS RF: 0 omeprazole 20 MG capsule 40 mg PO DAILY RF: 0 aspirin 81 MG tablet,chewable 81 mg PO DAILY@0800 RF: 0 cetirizine 10 MG capsule 10 mg PO QHS RF: 0 mometasone-formoterol 8.8 GM HFA aerosol inhaler 2 puff IH BID RF: 0 buspirone 5 mg Tablet 10 mg PO BID Qty: 30 RF: 0 prednisone 20 mg tablet 20 mg PO DAILY Qty: 30 RF: 0 cholecalciferol (vitamin D3) 1,000 UNIT tablet 2,000 unit PO QHS Qty: 60 RF: 0 guaifenesin 1,200 mg tablet extended release 12hr 1,200 mg PO BID Qty: 14 RF: 0 levofloxacin 500 mg tablet 500 mg PO DAILY Qty: 5 RF: 0 atorvastatin 20 mg tablet 20 mg PO DAILY Qty: 90 RF: 3 montelukast 10 mg tablet 10 mg PO QPM Qty: 30 RF: 3 albuterol sulfate 90 mcg/actuation HFA aerosol inhaler 2 puff INHALATION Q2H PRN (Reason: Asthma) Qty: 18 RF: 6 nystatin 100,000 unit/mL suspension 5 ml mucous membrane TID Qty: 250 RF: 1 Primary Care Provider: Alexey Mayberry Referrals: Alexey Mayberry MD [Primary Care Provider] - 3-5 Days (Will need repeat sodium level) Disposition Disposition: Home, Self Care
[2021-09-15 11:09] VITALS: BP 99/75; PULSE 89; RESP 22; O2SAT 94
[2021-09-15 11:58] LABS: Osmolality, Serum 268 mOsm/KG (275-295)
[2021-09-15 14:34] LABS: Osmolality, Urine 317 mOsm/KG
[2021-09-15 15:18] VITALS: RESP 18; O2SAT 99
[2021-09-15 17:03] VITALS: BP 97/67; RESP 18
== END 2021-09-15 17:04 | disposition home or self-care (01) ==
PROVIDERS: Emergency Provider Emergency Medicine; PCP Internal Medicine; Visit Provider Emergency Medicine
DX: R19.7 Diarrhea, unspecified (principal); E87.1 Hypo-osmolality and hyponatremia; E86.0 Dehydration; I25.10 Atherosclerotic heart disease of native coronary artery without angina pectoris; Z87.891 Personal history of nicotine dependence; Z95.5 Presence of coronary angioplasty implant and graft
CPT/HCPCS: 80048; 83930; 83935; 96360; 96361; 99284; J7030; A4216

== ENCOUNTER 2021-11-02 07:59 | Outpatient (CLI) | payer MEDICARE, MEDICAID, SELFPAY ==
--- NOTE | 2021-11-02 08:01 | CT_ITS ---
STUDY: LOW DOSE CT LUNG CANCER SCREENING REASON FOR EXAM: Male, 61 years old. Smoker and gt; 40 pack years, quit 07/2021 RADIATION DOSAGE (If Supplied By Facility): CTDIvol = ( 3.02 ) mGy, DLP = ( 101.18 ) mGycm TECHNIQUE: No contrast was administered. Low dose technique was utilized (average mAS-38 and kVp 120). 1.25 mm axial source images with a slice interval of 1.25-mm were reconstructed in lung windows. 2.5 mm axial source images with a slice interval of 2.5-mm were reconstructed in lung windows. 5.0 mm axial source images with a slice interval of 5.0-mm were reconstructed in soft tissue windows. Nodule measured using lung windows on PACS and/or independent workstation with automated measurement of minimum and maximum diameter. Nodule measurement reported as average diameter rounded to the nearest whole number. Growth is defined as an increase ins size of greater than 1.5 mm. COMPARISON: Comparison is made with prior study dated 11/03/2020. NODULES: Emphysema: Hyperinflation. Diffuse emphysematous changes worse in the upper lobes. Since prior study, there has been progressive increased interstitial markings in both lungs with areas of confluence and the subpleural blebs. This has a preferential lateral distribution. With the patient''s history of prior Covid infection, this may represent pneumonitis associated with Covid .Follow-up is recommended to rule out underlying scarring. Endobronchial lesion: None Aorta: Mild atherosclerotic calcification of the aortic arch. Coronary arteries: Coronary artery calcification. Heart: Unremarkable Mediastinal nodes: Slightly enlarged mediastinal lymph nodes. Other chest and abdominal findings: CT/Low Dose CT Lung Screening IMPRESSION: Lung-RADS category 3 - Continue screening with LDCT in 6 months. IMPORTANT NOTES FOR USE: ACR Lung-RADS Version 1.1 Assessment Categories Release Date: 2018 Category: Coded 0-4 bases on nodule(s) with highest degree of suspicion. Negative screen is defined as categories 1 and 2; a positive screen is defined as categories 3 and 4. Category 3 and 4A nodules that are unchanged on interval CT should be coded as category 2, and individuals returned to screening in 12 months. Category 4X: Category 3 or 4 nodules with additional imaging findings that increase the suspicion of lung cancer, such as spiculation, GGN that doubles in size in 1 year, enlarged lymph notes, etc. Category Modifiers: S (significant finding unrelated to lung cancer) Electronically Signed: Gerardo Ruby MD at 16:13 EST ,
== END 2021-11-02 23:59 | disposition home or self-care (01) ==
LOC: CT 08:01
PROVIDERS: PCP Internal Medicine; Referring Provider Nurse Practitioner Acute Care; Visit Provider Nurse Practitioner Acute Care
DX: Z12.2 Encounter for screening for malignant neoplasm of respiratory organs (principal); F17.210 Nicotine dependence, cigarettes, uncomplicated
CPT/HCPCS: 71271

== ENCOUNTER 2021-12-12 16:33 | Inpatient (IN) | payer MEDICARE, MEDICAID, SELFPAY ==
[2021-12-12] VITALS (11 sets, daily range): BP systolic 105–134; BP diastolic 70–97; PULSE 77–106; RESP 18–29; TEMP 36.5–37.2; O2SAT 91–98; BMI 23.9; BMI 22.9
--- NOTE | 2021-12-12 16:41 | ED.VIS.DYS ---
HPI History of Present Illness Chief Complaint: Shortness of Breath Informant: patient Narrative Narrative: Patient presents with worsening dyspnea. He states for about 4 days he has been coughing more. He always brings up some greenish sputum but has been bringing up more of it and it is thicker. No blood. He has not had fevers or chills. He has no chest pain at any time. He has been wheezing more. He felt a lot worse yesterday but took several breathing treatments and that helped. But it worsened again today. He is wheezing more than normal. He is using his nebulizer more than normal. He does have a history of COPD. He has been intubated 4 times in the past. His last steroids were about a month ago. He also has a history of prior heart disease and had stenting in 2006 or . He is not having chest pain or pressure now. Respiratory treatments help his symptoms and exertion makes them worse. This is typical of his COPD. [facility] Medical History (Updated 12/12/21 @ 18:[address] Aldair Walsh MD) Atherosclerotic heart disease of [place] coronary artery without angina pectoris BPH (benign prostatic hyperplasia) CAD (coronary artery disease) COPD (chronic obstructive pulmonary disease) COPD exacerbation HLD (hyperlipidemia) Ischemic cardiomyopathy Nicotine abuse Old myocardial infarction Paroxysmal atrial tachycardia Paroxysmal ventricular tachycardia Premature ventricular contraction Presence of stent in coronary artery (~06/27/08) Septic shock Home Medications clopidogrel 75 mg PO QHS 06/16/13 [History Last Taken 05/13/19 20:00 75 mg] omeprazole 40 mg PO DAILY 05/13/17 [History Last Taken 05/13/19 08:00] aspirin 81 mg PO DAILY@0800 06/20/17 [History Last Taken 05/13/19 08:00] cyanocobalamin (vitamin B-12) 1,000 mcg tablet 1,000 mcg PO QHS 10/15/17 [History Last Taken 05/13/19 20:00 1000 mcg] cetirizine 10 mg PO QHS 12/14/17 [History Last Taken 05/13/19 10 mg] mometasone-formoterol 2 puff IH BID 06/30/18 [History Last Taken 05/13/19 04:00] trazodone 50 mg tablet 75 mg PO QHS tab 09/23/19 [History Last Taken Unknown] atorvastatin 20 mg tablet 20 mg PO DAILY #90 tab 01/04/20 [Rx Last Taken Unknown] PEP device #1 ea 04/27/20 [Rx Last Taken Unknown] montelukast 10 mg tablet 10 mg PO QPM #30 tab 05/21/21 [Rx Last Taken Unknown] albuterol sulfate 90 mcg/actuation aerosol inhaler 2 puff INHALATION Q2H PRN #18 g 08/02/21 [Rx Last Taken Unknown] buspirone 10 mg PO BID #30 tab 08/31/21 [Rx Last Taken Unknown] cholecalciferol (vitamin D3) 2,000 unit PO QHS #60 tab 08/31/21 [Rx Last Taken Unknown] guaifenesin 1,200 mg PO BID #14 tab 08/31/21 [Rx Last Taken Unknown] nystatin 100,000 unit/mL oral suspension 5 ml MUCOUS MEMBRANE TID #250 ml 09/14/21 [Rx Last Taken Unknown] tiotropium 2.5 mcg-olodaterol 2.5 mcg/actuation mist for inhalation 2 inh INHALATION DAILY #4 g 11/15/21 [Rx Last Taken Unknown] Allergy/AdvReac Type Severity Reaction Status Date / Time latex Allergy Rash Verified 11/20/21 09:47 varenicline tartrate Allergy Hives Verified 11/20/21 09:47 [From Chantix] aspirin AdvReac Upset Verified 11/20/21 09:47 Stomach Family History Father , age 50 CAD (coronary artery disease) Heart disease Myocardial infarction Mother Diabetes Brother Hypertension Surgical History History of hernia repair History of left hip replacement Presence of coronary angioplasty implant and graft (~06/27/08) Social History household members: significant other and children Smoking Status: Former smoker alcohol intake: never substance use type: does not use caffeine: Yes Type: coffee Number of servings: 3 what type of physical activity do you participate in: walking frequency: daily duration: 45-60 minutes/day seatbelt use: always do you feel safe at home: Yes ROS ROS ED Constitutional Constitutional ED: Denies chills, fever(s) or sweats Eyes Eyes: Denies blurry vision ENT ENT ED: Denies rhinorrhea or sore throat Cardiovascular Cardiovascular: Denies chest pain or palpitations Respiratory/Chest Respiratory/Chest: Reports cough, dyspnea, dyspnea on exertion, sputum and other Details: See history of present illness. Gastrointestinal Gastrointestinal: Denies nausea or vomiting Genitourinary Genitourinary ED: Denies dysuria Musculoskeletal Musculoskeletal: Denies myalgias Integumentary Denies rash Neurologic Neurologic: Denies paresthesias or weakness Endocrine Endocrinology: Denies polydipsia or polyuria Hematologic/Lymphatic Hematologic/Lymphatic: Reports easy bruising and other Details: Patient is on Plavix. He is allergic to aspirin. ; Denies easy bleeding Allergic/Immunologic Allergic/Immunologic ED: Denies urticaria EXAM Physical Exam Const Vital Signs: 12/12/21 16:35 12/12/21 16:40 12/12/21 16:41 Temperature 98.0 F 98.1 F Temperature Source Temporal Temporal Pulse Rate 104 H 106 H Respiratory Rate 29 H 24 H Respiratory Effort Short of Breath Labored Respiratory Depth Shallow Respiratory Pattern Tachypnea Blood Pressure 134/97 H 134/97 H Blood Pressure Mean 109 109 Pulse Ox 92 91 Oxygen Delivery Method Nasal Cannula Nasal Cannula Nasal Cannula Oxygen Flow Rate (L/min) 2 2 2 12/12/21 17:10 12/12/21 17:12 12/12/21 18:04 Temperature Temperature Source Pulse Rate 98 93 Respiratory Rate 20 H 25 H Respiratory Effort Respiratory Depth Respiratory Pattern Tachypnea Blood Pressure 132/70 H Blood Pressure Mean 90 Pulse Ox 93 93 Oxygen Delivery Method Nasal Cannula Nasal Cannula Oxygen Flow Rate (L/min) 2 2 Positive well nourished and well developed General Appearance ED: well developed and NAD HEENT Reports moist mucous membranes atraumatic Eyes General Eye ED: Negative for pale conjunctiva or scleral icterus Neck no JVD Resp No normal respiratory effort and No clear to auscultation bilaterally Resp Narrative: Patient has increased work of breathing. He speaks in shortened sentences. He has saturations about 88% on room air just sitting in bed. There is audible wheezing. He has diffuse inspiratory and expiratory wheezes throughout. Auscultation: wheezes; Negative for rales Cardio regular rate and regular rhythm Rate: tachycardic GI non-tender and non-distended Palpation: soft Back/Spine normal to inspection Extremity Extremity Narrative: No peripheral edema cords or tenderness General Extremety ED: Negative for edema or tenderness General Extremity: Negative for edema Psych mental status grossly normal Psych Narrative: Not sleepy or lethargic. Skin Lesions: no lesions Rashes: no rashes MDM MDM MDM Narrative Medical decision making narrative: Patient does have a mild bump in his white count. Potassium is slightly low on electrolytes. Glucose minimally high. Lactate and troponin are negative. Chest x-ray does hint of a right-sided pneumonia and this is a change from prior film August 2021. I rechecked the patient. On 2 L he is about 91 to 92%. I took him off oxygen and he fell to 89 within less than 30 seconds. We put him back and he is coming up again. We did not even walk him and he started getting hypoxic. He is still wheezing. I am going to get him another breathing treatment. However, I think with his COPD, more use of meds at home, hypoxia without oxygen, pneumonia he does need hospitalization. I have a page out to the hospitalist. Lab Data Attestation: I reviewed the patient's lab results. Labs: Laboratory Results - last 24 hr 12/12/21 12/12/21 12/12/21 16:40 16:40 16:40 WBC 12.9 H RBC 4.74 Hgb 13.9 Hct 42.6 MCV 89.9 MCH 29.3 MCHC 32.6 RDW Std Deviation 42.9 RDW Coeff of [place] 13.1 Plt Count 313 MPV 9.5 Immature Gran % (Auto) 0.900 Neut % (Auto) 70.5 H Lymph % (Auto) 15.1 L [place] % (Auto) 10.6 H Eos % (Auto) 2.4 Baso % (Auto) 0.5 Absolute Neuts (auto) 9.1 H Absolute Lymphs (auto) 1.94 Nucleated RBC % 0 Sodium 139 Potassium 3.2 L Chloride 106 Carbon Dioxide 26.0 Anion Gap 7 BUN 11 Creatinine 0.87 Estim Creat Clear Calc 87.36 Est GFR (MDRD) Af Amer 115 Est GFR (MDRD) Non-Af 95 BUN/Creatinine Ratio 12.6 Glucose 114 H Lactic Acid 1.4 Calcium 8.9 Troponin I High Sens 6 Radiography Diagnostic Testing: Clinical Impression(s) from Imaging Studies Chest X-Ray 12/12/21 17:00 IMPRESSION: Right sided pneumonia. Electronically Signed: Sukhjinder Siddiqi MD at 17:24 EDT , Discharge Plan Triage Chief Complaint: Shortness of Breath ED Provider: Aldair Walsh Dx/Rx/DC Orders Clinical Impression: Respiratory failure with hypoxia, COPD with acute exacerbation, Pneumonia involving right lung Prescriptions: No Action cyanocobalamin (vitamin B-12) 1,000 mcg tablet 1,000 mcg PO QHS RF: 0 trazodone 50 mg tablet 75 mg PO QHS RF: 0 (DME) PEP device See Rx Instructions .ROUTE .MEDSUPPLY Qty: 1 RF: 0 clopidogrel 75 MG tablet 75 mg PO QHS RF: 0 omeprazole 20 MG capsule 40 mg PO DAILY RF: 0 aspirin 81 MG tablet,chewable 81 mg PO DAILY@0800 RF: 0 cetirizine 10 MG capsule 10 mg PO QHS RF: 0 mometasone-formoterol 8.8 GM HFA aerosol inhaler 2 puff IH BID RF: 0 buspirone 5 mg Tablet 10 mg PO BID Qty: 30 RF: 0 cholecalciferol (vitamin D3) 1,000 UNIT tablet 2,000 unit PO QHS Qty: 60 RF: 0 guaifenesin 1,200 mg tablet extended release 12hr 1,200 mg PO BID Qty: 14 RF: 0 atorvastatin 20 mg tablet 20 mg PO DAILY Qty: 90 RF: 3 montelukast 10 mg tablet 10 mg PO QPM Qty: 30 RF: 3 albuterol sulfate 90 mcg/actuation HFA aerosol inhaler 2 puff INHALATION Q2H PRN (Reason: Asthma) Qty: 18 RF: 6 nystatin 100,000 unit/mL suspension 5 ml mucous membrane TID Qty: 250 RF: 1 Stiolto Respimat 2.5-2.5 mcg/actuation mist 2 inh inhalation DAILY Qty: 4 RF: 6 Primary Care Provider: Alexey Mayberry Referrals: Alexey Myaberry MD [Primary Care Provider] - Disposition Disposition: Acute Care Hospital [facility]
[2021-12-12] MEDS: MethylPREDNISolone 125 MG/2 ML Vial IV (16:48)
[2021-12-12] MEDS: Albuterol 2.5 MG/3 ML VIAL.NEB. INHALATION ×2 (16:52→18:24)
[2021-12-12] MEDS: Ipratropium/Albuterol Sulfate 3 ML AMPUL.NEB INHALATION (16:53)
--- NOTE | 2021-12-12 17:00 | RAD_ITS ---
STUDY: XR Chest 1 View 12/12/2021 4:54 PM REASON FOR EXAM: Male, 61 years old. CHEST PAIN cough, wheeze COMPARISON: 08.28.21 TECHNIQUE: XR Chest 1 View FINDINGS: Left rib healed fractures. there is a lateral right infiltrate. Normal heart size. Normal mediastinum. Normal winnie. Prominent appearing increased interstitial lung markings. Normal visualized pulmonary arteries. There is atherosclerotic calcification of the aortic arch with tortuosity. There are diffuse degenerative changes of the visualized thoracic spine. There is degenerative osteoarthritis of the bilateral shoulders. There is no demonstrated abnormality of the visualized soft tissue structures of the upper abdomen. RAD/Chest 1 View (Portable) IMPRESSION: Right sided pneumonia. Electronically Signed: Sukhjinder Siddiqi MD at 17:24 EDT ,
[2021-12-12 17:10] LABS: Absolute Lymphocyte Count 1.94 X10^3/uL (0.83-4.51); Absolute Neutrophil Count 9.1 X10^3/uL (2.0-7.7); Basophil# 0.06 X10^3/uL; Basophil% 0.5 % (0-1); Eosinophil# 0.31 X10^3/uL; Eosinophils% 2.4 % (0-5); Hematocrit 42.6 % (40-54); Hemoglobin 13.9 g/dL (13.0-16.5); Lymphocyte # 1.94 X10^3/ul (0.83-4.51); Lymphocyte % 15.1 % (19-41); Mean Corp Hgb Conc 32.6 g/dL (32-36); Mean Corpuscular Hgb 29.3 pg (27.0-32.0); Mean Corpuscular Volume 89.9 fL (80-94); Mean Platelet Vol. 9.5 fl (6.2-12.0); Monocyte# 1.37 X10^3/uL; Monocyte% 10.6 % (0-10); NRBC Flagged by Analyzer 0 % (0-5); Neutrophil # 9.09 X10^3/uL (2.7-7.7); Neutrophil % 70.5 % (47-70); Platelet Count 313 K/mm3 (150-450); RBC Distribution Width CV 13.1 % (11.6-14.6); RBC Distribution Width SD 42.9 fl (35.1-43.9); Red Blood Count 4.74 M/mm3 (4.6-6.2); White Blood Count 12.9 K/mm3 (4.4-11.0)
[2021-12-12 17:23] LABS: Anion Gap 7 (5-15); BUN 11 mg/dL (7-18); BUN/Creat Ratio 12.6 RATIO (10-20); Calcium,Total 8.9 mg/dL (8.5-10.1); Chloride 106 mmol/L (98-107); Creatinine, Serum 0.87 mg/dL (0.70-1.30); EST Glomerular Filtration Rate 95 mL/min (>60); Est Glom Filt Rate - Afr Amer 115 mL/min (>60); Estimated Creatinine Clearance 87.36 ml/min; Glucose 114 mg/dL (74-106); Potassium 3.2 mmol/L (3.5-5.1); Sodium Level 139 mmol/L (136-145); Troponin-I HS 6 pg/mL (3.0-78.0)
[2021-12-12 17:57] LABS: Lactic Acid 1.4 mmol/L (0.4-1.9)
[2021-12-12] MEDS: Ceftriaxone 1 GM/50 ML BAG IV (18:08)
--- NOTE | 2021-12-12 18:57 | HP.PCM_ITS ---
Documented by User: MELBA KrauseC 12/12/21 19:17 HPI - General General Date of Admission: 12/12/21 Date of Service: 12/12/21 Chief Complaint: Shortness of Breath HPI Narrative CHIO DENT, is a 61 M who presents with complaints of intermittent shortness of breath for about the past month and a half however, patient states that the past 4 days he has had increasing shortness of breath and a worsening cough and wheezing. Patient states that he has been using his mom's oxygen intermittently at home due to his shortness of breath. Patient states that he has stopped smoking however his girlfriend continues to smoke in the house despite the fact that she knows the impact that it has on his health. Patient's daughter at bedside and states that this is a large concern as this seems to be a trigger for his exacerbations. Patient also reports a history of PE, AL, COPD, BPH. ON LICENSE OF [facility] Medical History (Updated 12/12/21 @ 19:05 by Alexia Davis NP-C) Atherosclerotic heart disease of [place] coronary artery without angina pectoris BPH (benign prostatic hyperplasia) CAD (coronary artery disease) COPD (chronic obstructive pulmonary disease) COPD exacerbation HLD (hyperlipidemia) Ischemic cardiomyopathy Nicotine abuse Old myocardial infarction Paroxysmal atrial tachycardia Paroxysmal ventricular tachycardia Premature ventricular contraction Presence of stent in coronary artery (~06/27/08) Septic shock Home Medications clopidogrel 75 mg PO QHS 06/16/13 [History Last Taken 12/11/21] omeprazole 40 mg PO DAILY 05/13/17 [History Last Taken 12/12/21] cyanocobalamin (vitamin B-12) 1,000 mcg tablet 1,000 mcg PO QHS 10/15/17 [History Last Taken 12/11/21] cetirizine 10 mg PO QHS 12/14/17 [History Last Taken 12/11/21] mometasone-formoterol 2 puff IH BID 06/30/18 [History Last Taken 12/12/21] trazodone 50 mg tablet 75 mg PO QHS tab 09/23/19 [History Last Taken 12/11/21] PEP device #1 ea 04/27/20 [Rx Last Taken Unknown] montelukast 10 mg tablet 10 mg PO QPM #30 tab 05/21/21 [Rx Last Taken 12/11/21] albuterol sulfate 90 mcg/actuation aerosol inhaler 2 puff INHALATION Q2H PRN #18 g 08/02/21 [Rx Last Taken 12/12/21] buspirone 10 mg PO BID #30 tab 08/31/21 [Rx Last Taken 12/12/21] cholecalciferol (vitamin D3) 2,000 unit PO QHS #60 tab 08/31/21 [Rx Last Taken 12/11/21] nystatin 100,000 unit/mL oral suspension 5 ml MUCOUS MEMBRANE TID #250 ml 09/14/21 [Rx Last Taken 12/12/21] tiotropium 2.5 mcg-olodaterol 2.5 mcg/actuation mist for inhalation 2 inh INHALATION DAILY #4 g 11/15/21 [Rx Last Taken 12/12/21] aspirin [Aspirin Low-Strength] 81 mg PO DAILY 12/12/21 [History Last Taken 12/12/21] atorvastatin 40 mg PO DAILY 12/12/21 [History Last Taken 12/12/21] levocetirizine [Xyzal] 5 mg PO DAILY 12/12/21 [History Last Taken 12/12/21] Allergy/AdvReac Type Severity Reaction Status Date / Time latex Allergy Rash Verified 11/20/21 09:47 varenicline tartrate Allergy Hives Verified 11/20/21 09:47 [From Chantix] aspirin AdvReac Upset Verified 11/20/21 09:47 Stomach Family History Father , age 50 CAD (coronary artery disease) Heart disease Myocardial infarction Mother Diabetes Brother Hypertension Surgical History History of hernia repair History of left hip replacement Presence of coronary angioplasty implant and graft (~06/27/08) Social History household members: significant other and children Smoking Status: Former smoker alcohol intake: never substance use type: does not use caffeine: Yes Type: coffee Number of servings: 3 what type of physical activity do you participate in: walking frequency: daily duration: 45-60 minutes/day seatbelt use: always do you feel safe at home: Yes ROS Constitutional Constitutional: Reports fatigue; Denies anorexia, chills, fever(s), malaise or weakness Cardiovascular Cardiovascular: Denies chest pain, edema, palpitations or syncope Respiratory/Chest Respiratory/Chest: Reports change in phlegm color, cough, shortness of breath with exertion, tachypnea and wheezing Gastrointestinal Gastrointestinal: Denies abdominal pain, constipation, diarrhea, nausea or vomiting Genitourinary Genitourinary: Denies dysuria Musculoskeletal Musculoskeletal: Denies back pain, extremity pain, joint pain or joint stiffness Integumentary Integumentary: Denies dry skin Neurologic Neurologic: Denies abnormal gait, abnormal speech, confusion or dizziness Psychiatric Psychiatric: Reports anxiety Endocrine Endocrinology: Denies change in body appearance Hematologic/Lymphatic Hematologic/Lymphatic: Denies anemia, easy bleeding or easy bruising Vital Signs Vital Signs Vital Signs: 12/12/21 16:35 12/12/21 16:40 12/12/21 16:41 Temperature 98.0 F 98.1 F Temperature Source Temporal Temporal Pulse Rate 104 H 106 H Respiratory Rate 29 H 24 H Respiratory Effort Short of Breath Labored Respiratory Depth Shallow Respiratory Pattern Tachypnea Blood Pressure 134/97 H 134/97 H Blood Pressure Mean 109 109 Pulse Ox 92 91 Oxygen Delivery Method Nasal Cannula Nasal Cannula Nasal Cannula Oxygen Flow Rate (L/min) 2 2 2 12/12/21 17:10 12/12/21 17:12 12/12/21 18:04 Temperature Temperature Source Pulse Rate 98 93 Respiratory Rate 20 H 25 H Respiratory Effort Respiratory Depth Respiratory Pattern Tachypnea Blood Pressure 132/70 H Blood Pressure Mean 90 Pulse Ox 93 93 Oxygen Delivery Method Nasal Cannula Nasal Cannula Oxygen Flow Rate (L/min) 2 2 12/12/21 18:25 12/12/21 18:34 Temperature 99 F Temperature Source Temporal Pulse Rate 91 97 Respiratory Rate 18 26 H Respiratory Effort Respiratory Depth Respiratory Pattern Normal Blood Pressure 105/75 Blood Pressure Mean 85 Pulse Ox 93 Oxygen Delivery Method Nasal Cannula Oxygen Flow Rate (L/min) 2 Weight Weight: 157 lb 6.4 oz Body Mass Index (BMI) 23.9 Physical Exam Const alert, oriented x3 and no apparent distress General Appearance: cooperative HEENT normocephalic and head/scalp atraumatic Eyes conjunctivae normal and no scleral icterus Neck supple General: trachea midline Lymph Lymphatic: no lymphadenopathy noted Resp normal respiratory effort Effort and Inspection: able to speak in complete sentences, symmetric chest movement and tachypneic Auscultation: wheezes expiratory wheezes, anterior, posterior and throughout Cardio regular rate, regular rhythm, S1 normal heart sound and S2 normal heart sound GI normal to inspection, nondistended, normoactive bowel sounds, soft to palpation and non-tender Extremity normal capillary refill and no clubbing, cyanosis or edema General Extremity: no tenderness to palpation of joints or extremities Skin General Skin Exam: no breakdown and turgor normal Lesions: no lesions Rashes: no rashes Neuro no focal motor deficits and no sensory deficits noted Speech: speech normal Motor Exam: Negative for general weakness Psych thought process normal, cooperative and affect normal Appearance: appropriate Results Lab / Micro Data Result Diagrams: 12/12/21 16:40 12/12/21 16:40 Labs: Laboratory Results - last 24 hr 12/12/21 16:40: WBC 12.9 H, RBC 4.74, Hgb 13.9, Hct 42.6, MCV 89.9, MCH 29.3, MCHC 32.6, RDW Std Deviation 42.9, RDW Coeff of [place] 13.1, Plt Count 313, MPV 9.5, Immature Gran % (Auto) 0.900, Neut % (Auto) 70.5 H, Lymph % (Auto) 15.1 L, [place] % (Auto) 10.6 H, Eos % (Auto) 2.4, Baso % (Auto) 0.5, Absolute Neuts (auto) 9.1 H, Absolute Lymphs (auto) 1.94, Nucleated RBC % 0 12/12/21 16:40: Sodium 139, Potassium 3.2 L, Chloride 106, Carbon Dioxide 26.0, Anion Gap 7, BUN 11, Creatinine 0.87, Estim Creat Clear Calc 87.36, Est GFR (MDRD) Af Amer 115, Est GFR (MDRD) Non-Af 95, BUN/Creatinine Ratio 12.6, Glucose 114 H, Calcium 8.9, Troponin I High Sens 6 12/12/21 16:40: Lactic Acid 1.4 Micro: Microbiology 12/12/21 Unknown Nasal Secretion SARS-CoV-2 Antigen (Rapid) - Final Radiology Impression Chest X-Ray 12/12/21 17:00 IMPRESSION: Right sided pneumonia. Electronically Signed: Sukhjinder Siddiqi MD at 17:24 EDT Reading Location ID and State: [facility] / [place] , Service support , Assessment & Plan Assessment/Plan (1) Respiratory failure with hypoxia: QUALIFIERS: Chronicity: unspecified Qualified Code(s): J96.91 - Respiratory failure, unspecified with hypoxia (2) Pneumonia involving right lung: QUALIFIERS: Lung location: middle lobe of lung Pneumonia type: due to unspecified organism Qualified Code(s): J18.9 - Pneumonia, unspecified organism (3) COPD with acute exacerbation: PLAN: 1. Acute respiratory failure with hypoxia secondary to right sided pneumonia and COPD exacerbation -Admit to MedSurg -CBC and BMP daily -Sputum culture ordered -Scheduled DuoNeb nebulizer treatments ordered as well as as needed albuterol -IV Solu-Medrol -Levofloxacin and azithromycin IV -Continue patient's home medication regimen for COPD including sertraline, montelukast, levocetirizine, and home inhaler regimen 2. Hypokalemia -Potassium 3.2, potassium chloride 20 mEq p.o. x1 ordered -BMP ordered for a.m. 3. Coronary artery disease -Continue aspirin and Plavix -History of RCA stent 06/27/2008 4. Hyperlipidemia -Continue atorvastatin 5. GERD -Continue omeprazole 6. Hypersomnia -Continue trazodone DVT prophylaxis-subcu Lovenox This patient was seen by GEMA Krause under the supervision of Dr. Estevez. 30 minutes spent in clinical coordination of patient's plan of care. Documented by User: Dr. Luiz Estevez MD 12/12/21 19:27 HPI - General General Date of Admission: 12/12/21 ON LICENSE OF [facility] Medical History (Updated 12/12/21 @ 19:05 by Alexia Davis NP-C) Atherosclerotic heart disease of [place] coronary artery without angina pectoris BPH (benign prostatic hyperplasia) CAD (coronary artery disease) COPD (chronic obstructive pulmonary disease) COPD exacerbation HLD (hyperlipidemia) Ischemic cardiomyopathy Nicotine abuse Old myocardial infarction Paroxysmal atrial tachycardia Paroxysmal ventricular tachycardia Premature ventricular contraction Presence of stent in coronary artery (~06/27/08) Septic shock Home Medications clopidogrel 75 mg PO QHS 06/16/13 [History Last Taken 12/11/21] omeprazole 40 mg PO DAILY 05/13/17 [History Last Taken 12/12/21] cyanocobalamin (vitamin B-12) 1,000 mcg tablet 1,000 mcg PO QHS 10/15/17 [History Last Taken 12/11/21] cetirizine 10 mg PO QHS 12/14/17 [History Last Taken 12/11/21] mometasone-formoterol 2 puff IH BID 06/30/18 [History Last Taken 12/12/21] trazodone 50 mg tablet 75 mg PO QHS tab 09/23/19 [History Last Taken 12/11/21] PEP device #1 ea 04/27/20 [Rx Last Taken Unknown] montelukast 10 mg tablet 10 mg PO QPM #30 tab 05/21/21 [Rx Last Taken 12/11/21] albuterol sulfate 90 mcg/actuation aerosol inhaler 2 puff INHALATION Q2H PRN #18 g 08/02/21 [Rx Last Taken 12/12/21] buspirone 10 mg PO BID #30 tab 08/31/21 [Rx Last Taken 12/12/21] cholecalciferol (vitamin D3) 2,000 unit PO QHS #60 tab 08/31/21 [Rx Last Taken 12/11/21] nystatin 100,000 unit/mL oral suspension 5 ml MUCOUS MEMBRANE TID #250 ml 09/14/21 [Rx Last Taken 12/12/21] tiotropium 2.5 mcg-olodaterol 2.5 mcg/actuation mist for inhalation 2 inh INHALATION DAILY #4 g 11/15/21 [Rx Last Taken 12/12/21] aspirin [Aspirin Low-Strength] 81 mg PO DAILY 12/12/21 [History Last Taken 12/12/21] atorvastatin 40 mg PO DAILY 12/12/21 [History Last Taken 12/12/21] levocetirizine [Xyzal] 5 mg PO DAILY 12/12/21 [History Last Taken 12/12/21] Allergy/AdvReac Type Severity Reaction Status Date / Time latex Allergy Rash Verified 11/20/21 09:47 varenicline tartrate Allergy Hives Verified 11/20/21 09:47 [From Chantix] aspirin AdvReac Upset Verified 11/20/21 09:47 Stomach Family History Father , age 50 CAD (coronary artery disease) Heart disease Myocardial infarction Mother Diabetes Brother Hypertension Surgical History History of hernia repair History of left hip replacement Presence of coronary angioplasty implant and graft (~06/27/08) Social History household members: significant other and children Smoking Status: Former smoker alcohol intake: never substance use type: does not use caffeine: Yes Type: coffee Number of servings: 3 what type of physical activity do you participate in: walking frequency: daily duration: 45-60 minutes/day seatbelt use: always do you feel safe at home: Yes Results Lab / Micro Data Result Diagrams: 12/12/21 16:40 12/12/21 16:40 Charges/Coding Addendum Addendum: Dr. Estevez: I personally reviewed the chart and examined the patient, and agree with the above findings. 61-year-old male with a history of COPD presents with acute hypoxic respiratory failure secondary to COPD exacerbation as well as right sided pneumonia. He has not been feeling well for several days which is why he presented to the hospital however he also states that for the last month and a half he has been intermittently using his mother's oxygen because he is been feeling more short of breath. He does live in a house with somebody who does smoke indoors. He does not normally wear oxygen at home, visiting nurse today w as at his house and notes that he was 85% on room air so he was placed on 2 L nasal cannula was brought into the hospital. The ED physician after some treatments tried to take him off of oxygen he desatted again to 88-89%. He does have significant wheezing, he does have a slight elevated white count as well so we will obtain a sputum culture, start him on steroids as well as breathing treatments and also place him on Levaquin. He did receive Rocephin and azithromycin in the ED on admission. Clinical time spent in all aspects of patient care: 45 minutes Visit Charges Inpatient E&M: [id number] Init Hosp L3
[2021-12-12] MEDS: 0.9% Saline Lock 10 ML Syringe IV ×2 (20:02→21:09)
[2021-12-12] MEDS: Potassium Chloride Oral Tablet 20 MEQ PO (21:02)
[2021-12-12] MEDS: traZODone 50 MG Tablet 75 MG PO (21:04)
[2021-12-12] MEDS: Clopidogrel Bisulfate 75 MG Tablet PO (21:05)
[2021-12-12] MEDS: Gabapentin 600 MG Tablet PO (22:18)
[2021-12-12] MEDS: Montelukast 10 MG Tablet PO (22:18)
[2021-12-13] VITALS (12 sets, daily range): BP systolic 110–120; BP diastolic 73–81; PULSE 69–89; RESP 16–20; TEMP 36.3–36.7; O2SAT 92–97
[2021-12-13] MEDS: Ipratropium/Albuterol Sulfate 3 ML AMPUL.NEB INHALATION ×5 (03:18→18:23)
[2021-12-13 06:02] LABS: Absolute Neutrophil Count 3.8 X10^3/uL (2.0-7.7); Basophil# 0.01 X10^3/uL; Basophil% 0.2 % (0-1); Hematocrit 40.8 % (40-54); Hemoglobin 13.4 g/dL (13.0-16.5); Lymphocyte % 10.9 % (19-41); Mean Corp Hgb Conc 32.8 g/dL (32-36); Mean Corpuscular Hgb 29.3 pg (27.0-32.0); Mean Corpuscular Volume 89.1 fL (80-94); Mean Platelet Vol. 9.6 fl (6.2-12.0); Monocyte# 0.21 X10^3/uL; Monocyte% 4.6 % (0-10); NRBC Flagged by Analyzer 0 % (0-5); Neutrophil # 3.82 X10^3/uL (2.7-7.7); Neutrophil % 83.4 % (47-70); POSITIVE DIFFERENTIAL YES; Platelet Count 306 K/mm3 (150-450); RBC Distribution Width CV 13.2 % (11.6-14.6); Red Blood Count 4.58 M/mm3 (4.6-6.2); White Blood Count 4.6 K/mm3 (4.4-11.0)
[2021-12-13 06:12] LABS: Differential Indicated SCAN CRITERIA MET
[2021-12-13] MEDS: 0.9% Saline Lock 10 ML Syringe IV ×2 (06:20→10:00)
[2021-12-13 06:21] LABS: Anion Gap 4 (5-15); BUN 12 mg/dL (7-18); BUN/Creat Ratio 16.6 RATIO (10-20); Calcium,Total 8.4 mg/dL (8.5-10.1); Chloride 107 mmol/L (98-107); Creatinine, Serum 0.72 mg/dL (0.70-1.30); EST Glomerular Filtration Rate 118 mL/min (>60); Est Glom Filt Rate - Afr Amer 143 mL/min (>60); Estimated Creatinine Clearance 105.56 ml/min; Glucose 166 mg/dL (74-106); Potassium 4.6 mmol/L (3.5-5.1); Sodium Level 137 mmol/L (136-145)
[2021-12-13 06:30] LABS: Differential Comment SCANNED
[2021-12-13] MEDS: Budesonide Respules 0.5 MG/2 ML AMPUL.NEB. INHALATION (07:04)
[2021-12-13] MEDS: levoFLOXacin IV 750 MG/150 ML BAG 100 MG IV (10:00)
[2021-12-13] MEDS: Aspirin E.C. 81 MG Tablet PO (10:00)
[2021-12-13] MEDS: Lisinopril 2.5 MG Tablet PO (10:00)
[2021-12-13] MEDS: Pantoprazole Sodium 40 MG Tablet PO (10:00)
--- NOTE | 2021-12-13 10:18 | PN.HOSP_ITS ---
Subjective Subjective Breathing better. Objective Data Objective Data Vital Signs: Vital Signs Temp Pulse Resp BP Pulse Ox 36.3 C L 69 20 H 120/81 H 95 12/13/21 09:04 12/13/21 09:04 12/13/21 09:04 12/13/21 09:04 12/13/21 09:04 Oxygen Flow Rate (L/min) 2 Oxygen Delivery Method Nasal Cannula Weight: 68.583 kg Body Mass Index (BMI) 22.9 Intake & Output: Intake and Output for Last 24 Hours 12/11/21 12/12/21 12/13/21 23:59 23:59 23:59 Intake Total 305 / 525 820 / 820 Output Total 1350 / 1350 Balance 305 / 175 -530 / -530 Lab / Micro Data Result Diagrams: 12/13/21 05:07 12/13/21 05:07 Labs: Laboratory Results - last 24 hr 12/12/21 16:40: WBC 12.9 H, RBC 4.74, Hgb 13.9, Hct 42.6, MCV 89.9, MCH 29.3, MCHC 32.6, RDW Std Deviation 42.9, RDW Coeff of [place] 13.1, Plt Count 313, MPV 9.5, Immature Gran % (Auto) 0.900, Neut % (Auto) 70.5 H, Lymph % (Auto) 15.1 L, [place] % (Auto) 10.6 H, Eos % (Auto) 2.4, Baso % (Auto) 0.5, Absolute Neuts (auto) 9.1 H, Absolute Lymphs (auto) 1.94, Nucleated RBC % 0 12/12/21 16:40: Sodium 139, Potassium 3.2 L, Chloride 106, Carbon Dioxide 26.0, Anion Gap 7, BUN 11, Creatinine 0.87, Estim Creat Clear Calc 87.36, Est GFR (M DRD) Af Amer 115, Est GFR (MDRD) Non-Af 95, BUN/Creatinine Ratio 12.6, Glucose 114 H, Calcium 8.9, Troponin I High Sens 6 12/12/21 16:40: Lactic Acid 1.4 12/13/21 05:07: WBC 4.6, RBC 4.58 L, Hgb 13.4, Hct 40.8, MCV 89.1, MCH 29.3, MCHC 32.8, RDW Std Deviation 43.0, RDW Coeff of [place] 13.2, Plt Count 306, MPV 9.6, Immature Gran % (Auto) 0.900, Neut % (Auto) 83.4 H, Lymph % (Auto) 10.9 L, [place] % (Auto) 4.6, Eos % (Auto) 0.0, Baso % (Auto) 0.2, Absolute Neuts (auto) 3.8, Absolute Lymphs (auto) 0.50 L, Nucleated RBC % 0, Differential Comment SCANNED 12/13/21 05:07: Sodium 137, Potassium 4.6, Chloride 107, Carbon Dioxide 26.0, Anion Gap 4 L, BUN 12, Creatinine 0.72, Estim Creat Clear Calc 105.56, Est GFR (MDRD) Af Amer 143, Est GFR (MDRD) Non-Af 118, BUN/Creatinine Ratio 16.6, Glucose 166 H, Calcium 8.4 L Micro: Microbiology 12/12/21 Unknown Nasal Secretion SARS-CoV-2 Antigen (Rapid) - Final Radiography Diagnostic Testing: Radiology Impression Chest X-Ray 12/12/21 17:00 IMPRESSION: Right sided pneumonia. Electronically Signed: Sukhjinder Siddiqi MD at 17:24 EDT Reading Location ID and State: [facility] / [place] , Service support , Physical Exam Const alert and no apparent distress HEENT head/scalp atraumatic Head and Scalp: normocephalic Resp normal respiratory effort and no retractions Auscultation: wheezes Cardio regular rate, regular rhythm, S1 normal heart sound and S2 normal heart sound GI normal to inspection, nondistended, normoactive bowel sounds, soft to palpation, non-tender and non-distended Extremity normal to inspection and full ROM Neuro Sensorium / Orientation: awake and alert Assessment & Plan Assessment/Plan (1) COPD with acute exacerbation: (2) Respiratory failure with hypoxia: QUALIFIERS: Chronicity: unspecified Qualified Code(s): J96.91 - Respiratory failure, unspecified with hypoxia (3) Pneumonia involving right lung: QUALIFIERS: Pneumonia type: due to unspecified organism Lung location: middle lobe of lung Qualified Code(s): J18.9 - Pneumonia, unspecified organism PLAN: 1. Acute hypoxic respiratory failure * Secondary to COPD exacerbation and pneumonia * Wean oxygen as tolerated * Check amatory pulse ox prior to discharge is still requiring oxygen 2. Acute COPD exacerbation * Continue with methylprednisolone and bronchodilators 3. Pneumonia * Suspected pneumococcal * Continue with the levofloxacin 4. VTE prophylaxis with enoxaparin Disposition: Monitor for another night. Anticipate patient be stable for discharge on the Charges/Coding Visit Charges Inpatient E&M: 77448 Subs Hosp L2
--- NOTE | 2021-12-13 10:45 | CASEMGMT ---
RN NELSON Face to Face with patient for initial transition planning/care coordination assessment. RN CM introduced self and role at [facility]. Patient lying in bed, alert and oriented. Patient willing to participate in assessment and is able to answer all questions appropriately. Care providers, pharmacy, and demographics verified. Patient wishes to discharge home, denies need for home health at this time. Patient states he has no further needs or concerns at this time. CM to follow for discharge planning needs that may arise. 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 Insurance: [employer] [facility] Prescription Benefit: yes Living Will/HPOA: yes, Clarice cline LNOK: daughter Living Arrangements: Patient lives with girlfriend in a 1st floor apartment with 2 steps to enter the home. Patient states he is independent at home. Transportation: self/GF DME/HHC: Patient states he has nebulizer and pulse ox at home. Will monitor for home oxygen at discharge. Patient states he prefers [facility] for DME. No previous HHC. Disposition Plan: Patient to discharge home with family support and follow-up plans in place. Eliana ESCUDERO, RN, CM
--- NOTE | 2021-12-13 12:36 | CASEMGMT ---
Social Work Note Per structural draftsman questions, pt has completed HCPOA and LW and provided documents to [facility]. SW reviewed chart. Both HCPOA and LW are on file. SW printed off documents and placed on pt's chart. Eliana Mondragon BILINGUAL LOAN PROCESSOR, BLANKET WEAVER
[2021-12-13] MEDS: guaiFENesin 10 ML UDC (200MG/10ML) PO (20:34)
[2021-12-13] MEDS: Clopidogrel Bisulfate 75 MG Tablet PO (20:38)
[2021-12-13] MEDS: Atorvastatin Calcium 20 MG Tablet PO (20:38)
[2021-12-13] MEDS: Montelukast 10 MG Tablet PO (20:38)
[2021-12-13] MEDS: Gabapentin 600 MG Tablet PO (20:39)
[2021-12-14] VITALS (8 sets, daily range): BP systolic 119–123; BP diastolic 85–88; PULSE 90–96; RESP 16–20; TEMP 36.4–36.5; O2SAT 92–96
[2021-12-14] MEDS: guaiFENesin 10 ML UDC (200MG/10ML) PO (02:54)
[2021-12-14] MEDS: Ipratropium/Albuterol Sulfate 3 ML AMPUL.NEB INHALATION ×3 (03:01→10:42)
[2021-12-14] MEDS: 0.9% Saline Lock 10 ML Syringe IV (05:12)
[2021-12-14] MEDS: Aspirin E.C. 81 MG Tablet PO (09:13)
[2021-12-14] MEDS: Pantoprazole Sodium 40 MG Tablet PO (09:13)
[2021-12-14] MEDS: Lisinopril 2.5 MG Tablet PO (09:13)
--- NOTE | 2021-12-14 09:22 | PCM.DC ---
Discharge Instructions Diet Discharge Diet: No restrictions Activity Discharge Activity: Return to Normal Activity Dressing / Incision Call your doctor if your incision/area has: Continuous Slow Oozing Follow Up Care Test Results: Test results from this visit will be discussed in further detail at your follow-up appointment, if applicable. Discharge Plan Admission Admit Date/Time: 12/12/21 18:23 Primary Reason for Your Visit: COPD exacerbation. Pneumonia Attending Provider: Dean Cheney Primary Care Provider: Alexey Mayberry Discharge Orders/Prescriptions Prescriptions: New prednisone 20 mg tablet 40 mg PO DAILY Qty: 10 RF: 0 levofloxacin 500 mg tablet 500 mg PO DAILY Qty: 5 RF: 0 Continued cyanocobalamin (vitamin B-12) 1,000 mcg tablet 1,000 mcg PO DAILY RF: 0 trazodone 50 mg tablet 75 mg PO QHS RF: 0 (DME) PEP device See Rx Instructions .ROUTE .MEDSUPPLY Qty: 1 RF: 0 clopidogrel 75 MG tablet 75 mg PO QHS RF: 0 omeprazole 20 MG capsule 20 mg PO DAILY RF: 0 cetirizine 10 MG capsule 10 mg PO DAILY RF: 0 mometasone-formoterol 8.8 GM HFA aerosol inhaler 2 puff IH BID RF: 0 aspirin 81 mg Tablet,Delayed Release (Dr/Ec) 81 mg PO DAILY RF: 0 gabapentin 600 mg Tablet 600 mg PO QHS PRN (Reason: Pain) RF: 0 atorvastatin 20 mg Tablet 20 mg PO QHS RF: 0 lisinopril 2.5 mg Tablet 2.5 mg PO DAILY RF: 0 montelukast [Singulair] 10 mg Tablet 10 mg PO QHS RF: 0 cholecalciferol (vitamin D3) [Vitamin D3] 50 mcg (2,000 unit) Tablet 50 mcg PO DAILY RF: 0 albuterol sulfate 90 mcg/actuation HFA aerosol inhaler 2 puff INHALATION Q2H PRN (Reason: Asthma) Qty: 18 RF: 6 Stiolto Respimat 2.5-2.5 mcg/actuation mist 2 inh inhalation DAILY Qty: 4 RF: 6 Referrals / Follow Up: Alexey Mayberry MD [Primary Care Provider] - Within 2 Weeks Disposition Disposition (needs filled in before D/C Order can be placed): Home, Self Care
[2021-12-14] MEDS: levoFLOXacin IV 750 MG/150 ML BAG 100 MG IV (09:27)
--- NOTE | 2021-12-14 09:27 | DS.PCM_ITS ---
Providers Date of Admission: 12/12/21 Primary Care Physician: Dr. Alexey Mayberry MD Reason For Visit: COPD EXACERBATION WITH PNA Diagnosis Discharge Diagnosis (1) COPD with acute exacerbation: Status: Chronic Code(s): J44.1 - Chronic obstructive pulmonary disease with (acute) exacerbation (2) Respiratory failure with hypoxia: Status: Acute Code(s): J96.91 - Respiratory failure, unspecified with hypoxia Qualifiers: Chronicity: unspecified Qualified Code(s): J96.91 - Respiratory failure, unspecified with hypoxia (3) Pneumonia involving right lung: Status: Acute Code(s): J18.9 - Pneumonia, unspecified organism Qualifiers: Pneumonia type: due to unspecified organism Lung location: middle lobe of lung Qualified Code(s): J18.9 - Pneumonia, unspecified organism Medications at Discharge Home Medications clopidogrel 75 mg PO QHS 06/16/13 omeprazole 20 mg PO DAILY 05/13/17 cyanocobalamin (vitamin B-12) 1,000 mcg tablet 1,000 mcg PO DAILY 10/15/17 cetirizine 10 mg PO DAILY 12/14/17 mometasone-formoterol 2 puff IH BID 06/30/18 trazodone 50 mg tablet 75 mg PO QHS tab 09/23/19 PEP device #1 ea 04/27/20 albuterol sulfate 90 mcg/actuation aerosol inhaler 2 puff INHALATION Q2H PRN #18 g 08/02/21 tiotropium 2.5 mcg-olodaterol 2.5 mcg/actuation mist for inhalation 2 inh INHALATION DAILY #4 g 11/15/21 aspirin 81 mg PO DAILY 12/12/21 atorvastatin 20 mg PO QHS 12/12/21 cholecalciferol (vitamin D3) [Vitamin D3] 50 mcg PO DAILY 12/12/21 gabapentin 600 mg PO QHS PRN 12/12/21 lisinopril 2.5 mg PO DAILY 12/12/21 montelukast [Singulair] 10 mg PO QHS 12/12/21 levofloxacin 500 mg PO DAILY #5 tab 12/14/21 prednisone 40 mg PO DAILY #10 tab 12/14/21 Hospital Course Operations None Procedures None Summary of Care Provided Minutes Spent on Discharge: 32 Hospital Course: 7-year-old male presents with shortness of breath. Patient was noted to be hypoxic requiring oxygen. Patient had audible wheezing and had a right lower lobe infiltrate. Patient was started on treatment for COPD exacerbation with steroids and bronchodilators as well as levofloxacin for pneumonia. Patient was on 2 L on . Today, patient is feeling better is currently on room air. Patient said that he did have require some oxygen ov ernight but overall feels much better. Plan is for the patient to go home today to complete a prednisone burst but also antibiotics with levofloxacin. Patient is overall doing well and is stable for discharge. Prior to discharge, patient will have an amatory pulse ox to see if he requires oxygen upon discharge. Physical Exam Resp normal respiratory effort and no retractions Resp Narrative: wheezing bilaterally. Cardio regular rate, regular rhythm, S1 normal heart sound and S2 normal heart sound GI normal to inspection, nondistended, normoactive bowel sounds and soft to palpation Weight / BMI Weight Weight: 68.583 kg Body Mass Index (BMI) 22.9 ABG / Lab / Microbiology Data Result Diagrams: 12/13/21 05:07 12/13/21 05:07 Microbiology: Microbiology 12/12/21 03:30 Sputum, Expectorated/Coughed Gram Stain - Final 12/12/21 Unknown Nasal Secretion SARS-CoV-2 Antigen (Rapid) - Final D/C Instructions Discharge Diet: No restrictions Call your doctor if your incision/area has: Continuous Slow Oozing Meaningful Use Info Meaningful Use Diagnoses (Choose all that apply): None applicable Discharge Plan Admission Admit Date/Time: 12/12/21 18:23 Primary Reason for Your Visit: COPD exacerbation. Pneumonia Attending Provider: Dean Cheney Primary Care Provider: Alexey Mayberry Discharge Orders/Prescriptions Prescriptions: New prednisone 20 mg tablet 40 mg PO DAILY Qty: 10 RF: 0 levofloxacin 500 mg tablet 500 mg PO DAILY Qty: 5 RF: 0 Continued cyanocobalamin (vitamin B-12) 1,000 mcg tablet 1,000 mcg PO DAILY RF: 0 trazodone 50 mg tablet 75 mg PO QHS RF: 0 (DME) PEP device See Rx Instructions .ROUTE .MEDSUPPLY Qty: 1 RF: 0 clopidogrel 75 MG tablet 75 mg PO QHS RF: 0 omeprazole 20 MG capsule 20 mg PO DAILY RF: 0 cetirizine 10 MG capsule 10 mg PO DAILY RF: 0 mometasone-formoterol 8.8 GM HFA aerosol inhaler 2 puff IH BID RF: 0 aspirin 81 mg Tablet,Delayed Release (Dr/Ec) 81 mg PO DAILY RF: 0 gabapentin 600 mg Tablet 600 mg PO QHS PRN (Reason: Pain) RF: 0 atorvastatin 20 mg Tablet 20 mg PO QHS RF: 0 lisinopril 2.5 mg Tablet 2.5 mg PO DAILY RF: 0 montelukast [Singulair] 10 mg Tablet 10 mg PO QHS RF: 0 cholecalciferol (vitamin D3) [Vitamin D3] 50 mcg (2,000 unit) Tablet 50 mcg PO DAILY RF: 0 albuterol sulfate 90 mcg/actuation HFA aerosol inhaler 2 puff INHALATION Q2H PRN (Reason: Asthma) Qty: 18 RF: 6 Stiolto Respimat 2.5-2.5 mcg/actuation mist 2 inh inhalation DAILY Qty: 4 RF: 6 Referrals / Follow Up: Alexey Mayberry MD [Primary Care Provider] - Within 2 Weeks Disposition Disposition (needs filled in before D/C Order can be placed): Home, Self Care Charges/Coding Visit Charges Inpatient E&M: 77091 Disch Hosp
== END 2021-12-14 11:51 | disposition home or self-care (01) | DRG 189 ==
LOC: ED 18:29 → MS3 19:01
PROVIDERS: Admitting Provider Family Medicine; Emergency Provider Emergency Medicine; PCP Internal Medicine
DX: J96.01 Acute respiratory failure with hypoxia (principal); J13 Pneumonia due to Streptococcus pneumoniae; J44.1 Chronic obstructive pulmonary disease with (acute) exacerbation; J44.0 Chronic obstructive pulmonary disease with (acute) lower respiratory infection; E78.5 Hyperlipidemia, unspecified; I25.10 Atherosclerotic heart disease of native coronary artery without angina pectoris; K21.9 Gastro-esophageal reflux disease without esophagitis; E87.6 Hypokalemia; I25.5 Ischemic cardiomyopathy; I25.2 Old myocardial infarction; N40.0 Benign prostatic hyperplasia without lower urinary tract symptoms; Z79.82 Long term (current) use of aspirin; G47.10 Hypersomnia, unspecified; Z79.02 Long term (current) use of antithrombotics/antiplatelets; R73.9 Hyperglycemia, unspecified; Z87.891 Personal history of nicotine dependence; Z95.5 Presence of coronary angioplasty implant and graft
CPT/HCPCS: 36415; 71045; 80048; 83605; 84484; 85025; 87040; 87070; 87205; 87811; 93005; 94640; 99251; 99285; 99406; A4216; G0463

== ENCOUNTER 2022-01-10 00:16 | Emergency (ER) | payer MEDICARE, MEDICAID, SELFPAY ==
[2022-01-10] VITALS (8 sets, daily range): BP systolic 114–142; BP diastolic 84; PULSE 92–108; RESP 17–32; TEMP 36.7; O2SAT 88–98; BMI 23.3
--- NOTE | 2022-01-10 00:37 | EDS_ITS ---
HPI History of Present Illness Chief Complaint: Shortness of Breath Informant: patient Onset/Context/Timing Onset: Yesterday Context: gradual Timing: Intermittent Quality: Positive for Wheezing Worsened by: Nothing Relieved by: Albuterol Associated Symptoms cough and yellow sputum; Negative for rhinorrhea, ear pain, fever, sore throat, chills or sweats Chest Pain: Positive for None Narrative Narrative: Patient presents with shortness of breath that began yesterday. Patient states she was feeling better today. Patient states that tonight his breathing got worse again. Patient states he feels like he is wheezing. Patient states this feels similar to prior episodes of COPD exacerbations. Patient states he took some breathing treatments at home which helped. Patient admits to a cough with some yellow sputum. Patient denies any fevers or chills. Patient denies any chest pain. Patient denies any sore throat or rhinorrhea. [facility] Medical History (Updated 01/10/22 @ 01:[address] 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 BPH (benign prostatic hyperplasia) Bronchiectasis CAD (coronary artery disease) COPD (chronic obstructive pulmonary disease) COPD exacerbation Dyspepsia and disorder of function of stomach History of pulmonary embolism HLD (hyperlipidemia) Hypersomnia Ischemic cardiomyopathy Nicotine abuse Old myocardial infarction Paroxysmal atrial tachycardia Paroxysmal ventricular tachycardia Premature ventricular contraction Presence of stent in coronary artery (~06/27/08) Septic shock Smoking greater than 40 pack years Stage 2 moderate COPD by GOLD classification Wheezing on auscultation Home Medications clopidogrel 75 mg PO QHS 06/16/13 [History Last Taken 12/11/21] omeprazole 20 mg PO DAILY 05/13/17 [History Last Taken 12/12/21] cyanocobalamin (vitamin B-12) 1,000 mcg tablet 1,000 mcg PO DAILY 10/15/17 [History Last Taken 12/11/21] cetirizine [Zyrtec] 10 mg PO DAILY 12/14/17 [History Last Taken 12/11/21] PEP device #1 ea 04/27/20 [Rx Last Taken Unknown] albuterol sulfate 90 mcg/actuation aerosol inhaler 2 puff INHALATION Q2H PRN #18 g 08/02/21 [Rx Last Taken 12/12/21] tiotropium 2.5 mcg-olodaterol 2.5 mcg/actuation mist for inhalation 2 inh INHALATION DAILY #4 g 11/15/21 [Rx Last Taken 12/12/21] aspirin 81 mg PO DAILY 12/12/21 [History Last Taken 12/12/21] atorvastatin 20 mg PO QHS 12/12/21 [History Last Taken Unknown] cholecalciferol (vitamin D3) [Vitamin D3] 50 mcg PO DAILY 12/12/21 [History Last Taken Unknown] gabapentin 600 mg PO QHS PRN 12/12/21 [History Last Taken Unknown] lisinopril 2.5 mg PO DAILY 12/12/21 [History Last Taken Unknown] montelukast [Singulair] 10 mg PO QHS 12/12/21 [History Last Taken Unknown] prednisone 60 mg PO DAILY #12 tablet 01/10/22 [Rx Last Taken Unknown] Allergy/AdvReac Type Severity Reaction Status Date / Time latex Allergy Rash Verified 01/10/22 00:22 varenicline tartrate Allergy Hives Verified 01/10/22 00:22 [From Chantix] aspirin AdvReac Upset Verified 01/10/22 00:22 Stomach Family History Father , age 50 CAD (coronary artery disease) Heart disease Myocardial infarction Mother Diabetes Brother Hypertension Surgical History History of hernia repair History of left hip replacement Presence of coronary angioplasty implant and graft (~06/27/08) Social History household members: significant other and children Smoking Status: Former smoker alcohol intake: never substance use type: does not use caffeine: Yes Type: coffee Number of servings: 3 what type of physical activity do you participate in: walking frequency: daily duration: 45-60 minutes/day seatbelt use: always do you feel safe at home: Yes ROS ROS ED Constitutional Constitutional ED: Denies chills or fever(s) Eyes Eyes: Denies blurry vision or change in vision ENT ENT ED: Denies rhinorrhea or sore throat Cardiovascular Cardiovascular: Denies chest pain or palpitations Respiratory/Chest Respiratory/Chest: Reports cough and dyspnea Gastrointestinal Gastrointestinal: Denies nausea or vomiting Genitourinary Genitourinary ED: Denies dysuria or hematuria Musculoskeletal Musculoskeletal: Denies back pain or neck pain Integumentary Denies abscess or rash Neurologic Neurologic: Denies headache(s) or weakness Allergic/Immunologic Allergic/Immunologic ED: Denies mouth swelling or urticaria EXAM Physical Exam Const Vital Signs: 01/10/22 00:18 01/10/22 00:25 01/10/22 00:28 Temperature 98.0 F Temperature Source Temporal Pulse Rate 108 H Respiratory Rate 32 H Respiratory Effort Short of Breath Blood Pressure 142/84 H Blood Pressure Mean 103 Pulse Ox 95 95 Oxygen Delivery Method Room Air Room Air Nasal Cannula Oxygen Flow Rate (L/min) 2 01/10/22 00:50 Temperature Temperature Source Pulse Rate 92 Respiratory Rate 17 Respiratory Effort Blood Pressure Blood Pressure Mean Pulse Ox Oxygen Delivery Method Oxygen Flow Rate (L/min) Positive well nourished and well developed General Appearance ED: well developed HEENT Reports moist mucous membranes Neck supple and no JVD Resp normal respiratory effort Auscultation: wheezes expiratory wheezes and throughout Cardio regular rate, regular rhythm and no murmurs GI normal to inspection, nondistended, normoactive bowel sounds and non-tender Palpation: soft Extremity normal to inspection General Extremety ED: Negative for edema or tenderness General Extremity: Negative for edema Neuro oriented x3, CN's II-XII intact bilaterally and no sensory deficits noted Sensorium / Orientation: alert Motor Exam: strength 5/5 throughout Psych mental status grossly normal Skin no rashes or lesions noted MDM MDM MDM Narrative Medical decision making narrative: Patient was given a DuoNeb aerosol here. Patient was given a dose of prednisone. COVID-19 rapid antigen was obtained and was negative. Influenza A and influenza B swabs were obtained and were negative. Portable 1 view chest x-ray was obtained. On my interpretation, lung noe show chronic interstitial changes. There is normal cardiac silhouette. Bony thorax is normal. There is no acute process noted. Radiologist also interpreted the x-ray and agrees. CBC was within normal limits. Basic metabolic profile was within normal limits. High-sensitivity troponin was normal. Patient is feeling better on reevaluation. Patient was taken off oxygen and ambulated in the room on room air. Patient's oxygen saturation only dropped to 91% on room air while ambulating but improved quickly. Patient feels better and wants to go home. Patient was given a prescription for prednisone. Patient was instructed to follow-up with his primary care physician in 3 to 5 days. Patient was also instructed to follow-up with his agile qa tester. Patient understood and was agreeable with the plan. All questions were answered. Lab Data Attestation: I reviewed the patient's lab results. Labs: Laboratory Results - last 24 hr 01/10/22 01/10/22 00:20 00:20 WBC 9.8 RBC 4.98 Hgb 14.8 Hct 44.3 MCV 89.0 MCH 29.7 MCHC 33.4 RDW Std Deviation 43.4 RDW Coeff of [place] 13.2 Plt Count 299 MPV 9.6 Immature Gran % (Auto) 0.700 Neut % (Auto) 61.1 Lymph % (Auto) 20.2 [place] % (Auto) 11.2 H Eos % (Auto) 6.3 H Baso % (Auto) 0.5 Absolute Neuts (auto) 6.0 Absolute Lymphs (auto) 1.98 Nucleated RBC % 0 Sodium 137 Potassium 4.0 Chloride 104 Carbon Dioxide 26.0 Anion Gap 7 BUN 12 Creatinine 1.04 Estim Creat Clear Calc 73.08 Est GFR (MDRD) Af Amer 94 Est GFR (MDRD) Non-Af 77 BUN/Creatinine Ratio 11.5 Glucose 145 H Calcium 8.8 Troponin I High Sens 6 Radiography Chest X-Ray - ED: 1 View, Read by ED Physician, Read by Radiologist, No Acute Disease and Chronic Changes Diagnostic Testing: Clinical Impression(s) from Imaging Studies Chest X-Ray 01/10/22 01:10 IMPRESSION: Findings suggestive of chronic interstitial lung disease otherwise no acute cardiopulmonary process seen. Electronically Signed: Fern Mckeon MD at 1:32 EDT , Discharge Plan Triage Chief Complaint: Shortness of Breath ED Provider: Dean Linda Dx/Rx/DC Orders Clinical Impression: COPD exacerbation, Dyspnea Instructions: ED COPD Flare Prescriptions: New prednisone 20 MG tablet 60 mg PO DAILY Qty: 12 RF: 0 No Action cyanocobalamin (vitamin B-12) 1,000 mcg tablet 1,000 mcg PO DAILY RF: 0 (DME) PEP device See Rx Instructions .ROUTE .MEDSUPPLY Qty: 1 RF: 0 clopidogrel 75 MG tablet 75 mg PO QHS RF: 0 omeprazole 20 MG capsule 20 mg PO DAILY RF: 0 Zyrtec 10 MG capsule 10 mg PO DAILY RF: 0 aspirin 81 mg Tablet,Delayed Release (Dr/Ec) 81 mg PO DAILY RF: 0 gabapentin 600 mg Tablet 600 mg PO QHS PRN (Reason: Pain) RF: 0 atorvastatin 20 mg Tablet 20 mg PO QHS RF: 0 lisinopril 2.5 mg Tablet 2.5 mg PO DAILY RF: 0 montelukast [Singulair] 10 mg Tablet 10 mg PO QHS RF: 0 cholecalciferol (vitamin D3) [Vitamin D3] 50 mcg (2,000 unit) Tablet 50 mcg PO DAILY RF: 0 albuterol sulfate 90 mcg/actuation HFA aerosol inhaler 2 puff INHALATION Q2H PRN (Reason: Asthma) Qty: 18 RF: 6 Stiolto Respimat 2.5-2.5 mcg/actuation mist 2 inh inhalation DAILY Qty: 4 RF: 6 Primary Care Provider: Alexey Mayberry Referrals: Bruce Devries MD [STAFF PHYSICIAN] - 3-5 Days Alexey Mayberry MD [Primary Care Provider] - 3-5 Days Disposition Disposition: Home, Self Care
--- NOTE | 2022-01-10 00:41 | EKG12_ITS ---
Test Reason : SOB Blood Pressure : / mmHG Vent. Rate : 094 BPM Atrial Rate : 094 BPM P-R Int : 122 ms QRS Dur : 078 ms QT Int : 354 ms P-R-T Axes : 065 -07 033 degrees QTc Int : 442 ms Normal sinus rhythm Abnormal ECG Confirmed by LUZ RICE, SB ([id number]), assistant film editor MARI LAWSON ([id number]) on 01/10/2022 12:54:25 PM Referred By: ADAM Confirmed By:SB ESCOBAR MD
[2022-01-10] MEDS: Ipratropium/Albuterol Sulfate 3 ML AMPUL.NEB INHALATION (00:47)
[2022-01-10] MEDS: predniSONE 20 MG Tablet 60 MG PO (00:47)
[2022-01-10 00:50] LABS: Absolute Lymphocyte Count 1.98 X10^3/uL (0.83-4.51); Basophil# 0.05 X10^3/uL; Basophil% 0.5 % (0-1); Eosinophil# 0.62 X10^3/uL; Eosinophils% 6.3 % (0-5); Hematocrit 44.3 % (40-54); Hemoglobin 14.8 g/dL (13.0-16.5); Lymphocyte # 1.98 X10^3/ul (0.83-4.51); Lymphocyte % 20.2 % (19-41); Mean Corp Hgb Conc 33.4 g/dL (32-36); Mean Corpuscular Hgb 29.7 pg (27.0-32.0); Mean Platelet Vol. 9.6 fl (6.2-12.0); Monocyte% 11.2 % (0-10); NRBC Flagged by Analyzer 0 % (0-5); Neutrophil # 5.98 X10^3/uL (2.7-7.7); Neutrophil % 61.1 % (47-70); Platelet Count 299 K/mm3 (150-450); RBC Distribution Width CV 13.2 % (11.6-14.6); RBC Distribution Width SD 43.4 fl (35.1-43.9); Red Blood Count 4.98 M/mm3 (4.6-6.2); White Blood Count 9.8 K/mm3 (4.4-11.0)
--- NOTE | 2022-01-10 01:10 | RAD_ITS ---
STUDY: X-RAY CHEST REASON FOR EXAM: Male, 61 years old. Dyspnea TECHNIQUE: Single AP portable view of the chest. COMPARISON: 12/12/2021. FINDINGS: The lungs are normally expanded with mild diffuse subpleural interstitial prominence, stable in the interval and most compatible with chronic interstitial changes. Otherwise lung noe are clear. There is no demonstrated pleural abnormality. Normal size heart. Normal mediastinum and winnie. Normal visualized pulmonary arteries. Normal visualized aortic arch and descending thoracic aorta. There are diffuse degenerative changes of the visualized thoracic spine. Sequela of old fracture involving the left clavicle. There is no demonstrated abnormality of the visualized soft tissue structures of the upper abdomen. RAD/Chest 1 View (Portable) IMPRESSION: Findings suggestive of chronic interstitial lung disease otherwise no acute cardiopulmonary process seen. Electronically Signed: Fern Mckeon MD at 1:32 EDT ,
[2022-01-10 01:14] LABS: Anion Gap 7 (5-15); BUN 12 mg/dL (7-18); BUN/Creat Ratio 11.5 RATIO (10-20); Calcium,Total 8.8 mg/dL (8.5-10.1); Chloride 104 mmol/L (98-107); Creatinine, Serum 1.04 mg/dL (0.70-1.30); EST Glomerular Filtration Rate 77 mL/min (>60); Est Glom Filt Rate - Afr Amer 94 mL/min (>60); Estimated Creatinine Clearance 73.08 ml/min; Glucose 145 mg/dL (74-106); Sodium Level 137 mmol/L (136-145); Troponin-I HS 6 pg/mL (3.0-78.0)
== END 2022-01-10 02:22 | disposition home or self-care (01) ==
PROVIDERS: Emergency Provider Emergency Medicine; PCP Internal Medicine; Visit Provider Emergency Medicine
DX: J44.1 Chronic obstructive pulmonary disease with (acute) exacerbation (principal); Z87.891 Personal history of nicotine dependence; I25.10 Atherosclerotic heart disease of native coronary artery without angina pectoris; I25.5 Ischemic cardiomyopathy; E78.5 Hyperlipidemia, unspecified; R06.00 Dyspnea, unspecified; I25.2 Old myocardial infarction; Z86.711 Personal history of pulmonary embolism
CPT/HCPCS: 71045; 80048; 84484; 85025; 87428; 93005; 94640; 99285; A4216

== ENCOUNTER → 2022-07-05 | Outpatient (CLI) | payer MEDICARE, MEDICAID, SELFPAY ==
--- NOTE | 2022-07-05 10:00 | RAD_ITS ---
STUDY: X-RAY - ESOPHAGUS (BARIUM SWALLOW) WITH FLUOROSCOPY REASON FOR EXAM: Male, 61 years old. DYSPHAGIA TECHNIQUE: 15 view(s) of the esophagus were obtained following swallowing of barium. FLUOROSCOPY TIME (if supplied): (32 seconds) minutes/seconds COMPARISON: None. FINDINGS: There is no demonstrated esophageal foreign body. There is no demonstrated stricture or mucosal abnormality. There is a small sliding hernia without gastroesophageal reflux. The patient ingested a 12 mm tablet of barium without any difficulty. Normal visualized aortic arch and descending thoracic aorta. Normal visualized pulmonary parenchyma. Normal visualized osseous structures of the thorax. RAD/Esophagus Dual Contrast IMPRESSION: Small sliding hiatal hernia without gastroesophageal reflux. The patient ingested a 12 mm tablet of barium without any difficulty. Electronically Signed: Gerardo Ruby MD at 13:55 EDT ,
== END | disposition home or self-care (01) ==
LOC: RAD 09:46
PROVIDERS: PCP Internal Medicine; Referring Provider Otolaryngology; Visit Provider Otolaryngology
DX: R13.10 Dysphagia, unspecified (principal)
CPT/HCPCS: 74221

== ENCOUNTER → 2022-07-18 | Outpatient (CLI) | payer MEDICARE, MEDICAID, SELFPAY | END | disposition home or self-care (01) | LOC: PSN 15:50 | PROVIDERS: PCP Internal Medicine; Referring Provider Physician Assistant; Visit Provider Physician Assistant | DX: Z01.810 Encounter for preprocedural cardiovascular examination (principal) | CPT/HCPCS: 93005 ==

== ENCOUNTER → 2022-11-09 | Outpatient (CLI) | payer MEDICARE, MEDICAID, SELFPAY ==
--- NOTE | 2022-11-09 15:52 | CT_ITS ---
STUDY: LOW DOSE CT LUNG CANCER SCREENING REASON FOR EXAM: Male, 62 years old. Former smoker. 80 pack-year history. Quit July 2022. RADIATION DOSAGE (If Supplied By Facility): CTDIvol = ( 3.02 ) mGy, DLP = ( 103.82 ) mGycm TECHNIQUE: No contrast was administered. Low dose technique was utilized (average mAS-38 and kVp 120). 1.25 mm axial source images with a slice interval of 1.25-mm were reconstructed in lung windows. 2.5 mm axial source images with a slice interval of 2.5-mm were reconstructed in lung windows. 5.0 mm axial source images with a slice interval of 5.0-mm were reconstructed in soft tissue windows. COMPARISON: November 02, 2021. NODULES: Total lung nodules (excluding granulomas): 0 Emphysema: Stable emphysematous change. No new infiltrate. The groundglass infiltrates seen on the previous study have resolved. Endobronchial lesion: None Aorta: Mild atherosclerotic changes of the thoracic aorta without aneurysm. CORONARY ARTERIES: Coronary artery calcification are seen Heart: Normal Pulmonary artery: Normal Mediastinal nodes: Stable mediastinal lymphadenopathy. Other chest and abdominal findings: CT/Low Dose CT Lung Screening IMPRESSION: Lung-RADS category 1 - Continue annual screening with LDCT in 12 months. IMPORTANT NOTES FOR USE: ACR Lung-RADS Version 1.1 Assessment Categories Release Date: 2018 Category: Coded 0-4 bases on nodule(s) with highest degree of suspicion. Negative screen is defined as categories 1 and 2; a positive screen is defined as categories 3 and 4. Category 3 and 4A nodules that are unchanged on interval CT should be coded as category 2, and individuals returned to screening in 12 months. Category 4X: Category 3 or 4 nodules with additional imaging findings that increase the suspicion of lung cancer, such as spiculation, GGN that doubles in size in 1 year, enlarged lymph notes, etc. Category Modifiers: S (significant finding unrelated to lung cancer) Electronically Signed: Roosevelt Doyle DO at 21:35 EST Reading Location ID and State: [address] [place] [address] Tel [phone], Service support ,
== END | disposition home or self-care (01) ==
LOC: CT 15:51
PROVIDERS: PCP Internal Medicine; Referring Provider Nurse Practitioner Acute Care; Visit Provider Nurse Practitioner Acute Care
DX: F17.210 Nicotine dependence, cigarettes, uncomplicated (principal)
CPT/HCPCS: 71271

== ENCOUNTER 2022-11-29 10:19 | Day surgery (SDC) | payer MEDICARE, MEDICAID, SELFPAY ==
[2022-11-29] VITALS (8 sets, daily range): BP systolic 92–108; BP diastolic 71–80; PULSE 76–87; RESP 16; TEMP 36.2–36.8; O2SAT 96–99; BMI 23.4
--- NOTE | 2022-11-29 | GASB_PTH ---
PATIENT: CHIO DENT Jr. LOC: EN U#:[id number] AGE/SX: 62/M ROOM: RE11/29/[address]: Dr. David Jackson DO : 1960 BED: DIS: 11/29/2022 SPEC #: [id number] RECD: 11/29/22 14:31 STATUS: MARIA EUGENIA REDarwin #: [id number] MALACHI: 11/29/22 00:[address]: David Jackson DEPT: SURGICAL PATHOLOGY RECD BY: Jossue Lucas ENTERED: 11/30/22 10:06 SP TYPE: Gastric Bx OTHR DR: Dr. Alexey Mayberry MD Tissues: A - Esophageal mucous membrane B - Duodenum, NOS C - Gastric mucous membrane Procedures: Special Stain Group II Surgery Specimen Level IV Alcian Blue/PAS (control) HEADER OPERATION: [place] [place] PRE-OP DIAGNOSIS: Dysphagia TISSUE SUBMITTED: A ? Distal esophagus biopsy, B ? Duodenum biopsy, C ? Gastric body biopsy MICROSCOPIC DIAGNOSIS A. Distal esophagus, biopsy: Fragments of gastroesophageal mucosa with chronic inflammation. Intestinal metaplasia (goblet cell metaplasia) not identified. See comment. B. Duodenum, biopsy: A fragment of duodenal mucosa, no pathologic diagnosis. C. Gastric body, biopsy: Mild gastritis. See microscopic description and comment. SJ:kyle 12/03/2022 COMMENT A. Alcian blue/PAS stain with matched control is used in the evaluation of the specimen. C. The results of immunohistochemistry for Helicobacter pylori will be reported separately ([id number]). Alcian blue/PAS stain with matched control is used in the evaluation of the specimen. MICROSCOPIC DESCRIPTION Slides are reviewed. The specimen shows fragments of gastric mucosa with chronic inflammatory cell infiltrates in the lamina propria consisting of lymphocytes and plasma cells, consistent with mild chronic gastritis. Focal intestinal metaplasia (goblet cell metaplasia) is also noted. GROSS DESCRIPTION A - Received in fixative is one container labeled with the patient's name and designated distal esophagus. The specimen consists of multiple irregular fragments of light horne soft tissue that in aggregate measure 0.7 x 0.7 x 0.1 cm. The specimen is totally submitted in one cassette. B - Received in fixative is one container labeled with the patient's name and designated duodenum biopsy. The specimen consists of one irregular fragment of light horne soft tissue that measures 0.6 x 0.6 x 0.1 cm. The specimen is totally submitted in one cassette. C - Received in fixative is one container labeled with the patient's name and designated gastric body biopsy. The specimen consists of two irregular fragments of light horne soft tissue that in aggregate measure 1.0 x 0.3 x 0.1 cm. The specimen is totally submitted in one cassette. / SJ:rg 11/30/2022 TC:3 CPT: 13125 x3, 08446
[2022-11-29] MEDS: Lactated Ringers 1,000 ML 15 ML IV (10:53)
--- NOTE | 2022-11-29 11:15 | IMM_PTH ---
PATIENT: CHIO DENT Jr. LOC: EN U#:[id number] AGE/SX: 62/M ROOM: RE11/29/[address]: Dr. David Jackson DO : 1960 BED: DIS: 11/29/2022 SPEC #: [id number] RECD: 11/30/22 13:54 STATUS: MARIA EUGENIA REQ #: [id number] MALACHI: 11/29/22 11:[address]: David Jackson DEPT: IMMUNOHISTOCHEMISTRY RECD BY: Kimberley Watts ENTERED: 11/30/22 13:55 SP TYPE: IMMUNO OTHR DR: Dr. Alexey Mayberry MD Tissues: B - Stomach, NOS Procedures: H Pylori (initial) PHYSICIAN & INSTITUTION [place] [id number] SPECIMEN INFORMATION: Tissue Source: C ? Gastric body Clinical Info: Dysphagia Specimen Number: [id number] CPT code: 63390 METHODOLOGY: Deparaffinized sections of prefer/formalin-fixed tissue or PAP/DQ stained slides are incubated with monoclonal/polyclonal antibodies/oligonucleotide probes. Localization is made via biotin free immunoperoxidase method. Appropriate controls are performed and reacted as expected. Results on target cell population are indicated in the following table: RESULTS: ANTIBODY / CLONE RESULT Block C H Pylori (polyclonal) negative These tests were developed and their performance characteristics determined by [facility]. They may not have been cleared or approved by the U.S. Food and Drug Administration. The FDA has determined that such clearance or approval is not necessary. The above immunohistochemical/dualISH markers are ordered and reviewed by the Pathologist. INTERPRETATION: C. Gastric body, biopsy: Negative for Helicobacter pylori organisms. SJ:kyle 12/03/2022
--- NOTE | 2022-11-29 11:36 | HP.PCM_ITS ---
History and Physical Date of Admission: 11/29/22 62 M who presents to the office today to establish with GI for difficulty swallowing. Referred by ENT Dr Matilde Figueroa; laryngoscopy was normal. Choking on food such as meat or pretzels, started a couple of yrs ago, getting worse. The food sticks in the lower throat. Has occas had to vomit to get it out. No ED visits for food stuck in esophagus. Denies sore throat, denies esophageal spasms or pain. He has been on omeprazole for years for heartburn, it is effective. He reports hx of bleeding ulcer in the esophagus. Denies nausea, vomiting, abd pain, diarrhea, constipation, melena, hematochezia. Weight is stable. Appetite is normal. 07/2022 Esophagram: small hiatal hernia w/o GE reflux 12/2021 EGD at [facility] by Dr Keen--pt reports it was normal He has never had a colonoscopy, but he does col[facility]uard [facility] at [facility], he's not interested in a colonoscopy at this time Exam Const General: cooperative and comfortable Orientation: alert, awake and oriented x3 HENMT Head: normal to inspection Eyes Sclera: sclerae normal Neck Neck: normal visual inspection Resp Effort & Inspection: normal respiratory effort GI Inspection: normal to inspection Palpation: soft, no hepatosplenomegaly, no masses and nontender Quality Reporting Tobacco Screening ([facility]) Smoking Status: Former smoker Assessment and Plan Assessment and Plan (1) Dysphagia: ?Status:?Chronic ?Plan: 62 yr old male w/ chronic dysphagia, getting worse, food especially meat getting stuck. On PPI x yrs which controls his heartburn. Needs EGD to eval for stricture, esophagitis, Pat's. Will have office f/u 2 wks after EGD. I have examined the patient and the H&P has been reviewed. There are no clinical changes since date of exam.
--- NOTE | 2022-11-29 11:54 | OP.EGD_ITS ---
Patient Name: Panchito Lima Procedure Date: 11/29/2022 11:32 AM Date of : 1960 Age: 62 Procedure: Upper GI endoscopy Indications: Dysphagia, Esophageal reflux Providers: David Jackson DO Referring MD: Alexey Mayberry Medicines: Monitored Anesthesia Care Patient Profile: This is a 62 year old male. Refer to note in patient chart for documentation of history and physical. Patient has symptoms of chronic dysphagia, dysphagia with solids, chronic heartburn and chronic nausea. Complications: No immediate complications. Procedure: Pre-Anesthesia Assessment: - Prior to the procedure, a History and Physical was performed, and patient medications and allergies were reviewed. The patient is competent. The risks and benefits of the procedure and the sedation options and risks were discussed with the patient. All questions were answered and informed consent was obtained. Patient identification and proposed procedure were verified by the physician in the pre-procedure area. Mental Status Examination: alert and oriented. Airway Examination: normal oropharyngeal airway and neck mobility. Respiratory Examination: clear to auscultation. CV Examination: normal. Prophylactic Antibiotics: The patient does not require prophylactic antibiotics. Prior Anticoagulants: The patient has taken no previous anticoagulant or antiplatelet agents. ASA Grade Assessment: II - A patient with mild systemic disease. After reviewing the risks and benefits, the patient was deemed in satisfactory condition to undergo the procedure. The anesthesia plan was to use moderate sedation / analgesia (conscious sedation). Immediately prior to administration of medications, the patient was re-assessed for adequacy to receive sedatives. The heart rate, respiratory rate, oxygen saturations, blood pressure, adequacy of pulmonary ventilation, and response to care were monitored throughout the procedure. The physical status of the patient was re-assessed after the procedure. After obtaining informed consent, the endoscope was passed under direct vision. Throughout the procedure, the patient's blood pressure, pulse, and oxygen saturations were monitored continuously. The gastroscope was introduced through the mouth, and advanced to the second part of duodenum. The upper GI endoscopy was accomplished without difficulty. The patient tolerated the procedure well. Scope In: 11:41:07 AM Scope Out: 11:44:17 AM Total Procedure Duration Time 0 hours 3 minutes 10 seconds Findings: LA Grade C (one or more mucosal breaks continuous between tops of 2 or more mucosal folds, less than 75% circumference) esophagitis with no bleeding was found 35 to 38 cm from the incisors. Biopsies were taken with a cold forceps for histology. Verification of patient identification for the specimen was done. Estimated blood loss was minimal. One benign-appearing, intrinsic stenosis was found 34 to 36 cm from the incisors. This stenosis was moderately severe and measured 3 cm (in length). The stenosis was traversed. A guidewire was placed and the scope was withdrawn. Dilation was performed with a Savary dilator with no resistance at 45 Fr. The dilation site was examined and showed moderate improvement in luminal narrowing. A medium-sized hiatal hernia was present. Patchy mild inflammation characterized by congestion (edema) and erosions was found in the gastric body. Biopsies were taken with a cold forceps for histology. Verification of patient identification for the specimen was done. Estimated blood loss was minimal. A few localized erosions without bleeding were found in the duodenal bulb. Biopsies were taken with a cold forceps for histology. Verification of patient identification for the specimen was done. Estimated blood loss was minimal. Impression: - LA Grade C reflux esophagitis. Biopsied. - Benign-appearing esophageal stenosis. Dilated. - Medium-sized hiatal hernia. - Chronic gastritis. Biopsied. - Duodenal erosions without bleeding. Biopsied. Recommendation: - Written discharge instructions were provided to the patient. - The signs and symptoms of potential delayed complications were discussed with the patient. - Patient has a contact number available for emergencies. - Return to normal activities tomorrow. - Resume previous diet. - Continue present medications. - Await pathology results. Procedure Code(s): --- Professional --- 47946, Esophagogastroduodenoscopy, flexible, transoral; with insertion of guide wire followed by passage of dilator(s) through esophagus over guide wire 14114, 59,51, Esophagogastroduodenoscopy, flexible, transoral; with biopsy, single or multiple CPT copyright 2017 [employer]. All rights reserved. The codes documented in this report are preliminary and upon neurocritical care physician review may be revised to meet current compliance requirements. David Jackson DO 11/29/2022 11:53:33 AM This report has been signed electronically. Number of Addenda: 0 Note Initiated On: 11/29/2022 11:32 AM
--- NOTE | 2022-11-29 11:55 | OP.CCLET_ITS ---
11/29/2022 Alexey Mayberry [address] [place] [address] Re : Upper GI endoscopy procedure for Panchito Lima Dear Dr. Mayberry This procedure was performed on October. My impressions and recommendations are as follows: Impressions : - LA Grade C reflux esophagitis. Biopsied. - Benign-appearing esophageal stenosis. Dilated. - Medium-sized hiatal hernia. - Chronic gastritis. Biopsied. - Duodenal erosions without bleeding. Biopsied. Recommendations : - Written discharge instructions were provided to the patient. - The signs and symptoms of potential delayed complications were discussed with the patient. - Patient has a contact number available for emergencies. - Return to normal activities tomorrow. - Resume previous diet. - Continue present medications. - Await pathology results. My findings are described in the full procedure note, which is enclosed. If I can be of further assistance, please feel free to contact me at . Sincerely, David Jackson DO 11/29/2022 11:53:33 AM This report has been signed electronically.
== END 2022-11-29 12:42 | disposition home or self-care (01) ==
LOC: EN 10:20 → AC 10:21
PROVIDERS: PCP Internal Medicine; Referring Provider Internal Medicine; Visit Provider Internal Medicine Gastroenterology
PROC: 0DJ08ZZ Inspection of Upper Intestinal Tract, Via Natural or Artificial Opening Endoscopic (ICD-10-PCS; CPT 43235; principal; 2022-11-29 11:10)
DX: R13.10 Dysphagia, unspecified (principal); K44.9 Diaphragmatic hernia without obstruction or gangrene; K21.00 Gastro-esophageal reflux disease with esophagitis, without bleeding; Z87.891 Personal history of nicotine dependence; K22.2 Esophageal obstruction; K29.50 Unspecified chronic gastritis without bleeding
CPT/HCPCS: 43239; 43248; 88305; 88313; 88342; J7120; J2405

== ENCOUNTER → 2023-01-25 | Outpatient (CLI) | payer MEDICARE, MEDICAID, SELFPAY ==
--- NOTE | 2023-01-04 12:54 | ST.MBS ---
Modified Barium Swallow - Patient Information Study Date: 01/04/23 - Penetration-Aspiration Scale Penetration-Aspiration Scale: OBJECTIVE ASSESSMENT OF SWALLOW FUNCTION (QUANTITATIVE ? PER TRIAL): PENETRATION / ASPIRATION SCALE (LEMUS): 1 = does not enter airway 2 = enters airway/above vocal folds/ejected 3 = enters airway/above vocal folds/not ejected 4 = enters airway/contacts vocal folds/ejected 5 = enters airway/contacts vocal folds/not ejected 6 = enters airway/below vocal folds/ejected 7 = enters airway/below vocal folds/not ejected despite effort 8 = enters airway/below vocal folds/no effort VIDEOFLOROSCOPIC SCALE SCORE (LEMUS): Grade I = aspiration of material that has penetrated into the laryngeal vestibule, intact cough reflex Grade II = aspiration < 10 % of the bolus, intact cough reflex Grade III = aspiration of < 10 % of the bolus, reduced cough reflex or aspiration of > 10 % of the bolus, intact cough reflex Grade IV = aspiration of > 10 % of the bolus, reduced cough reflex
--- NOTE | 2023-01-25 11:31 | SP.MBSS_ITS ---
Modified Barium Swallow - Patient Information Study Date: 01/25/23 Study Time: 13:00 Direct Billable Minutes: 52 Total Minutes procedure & reportin Diagnosis: Dysphagia, unspecified (R13.10) Referring Physician: Wen Parikh NP Reason for Referral: Objectively assess swallow function, risk for aspiration, and determine recommendations for least restrictive diet textures and compensatory strategies to improve safety of swallow. Medical History: The patient is a 62-year-old male with PMH including asthma, COPD, CAD, dysphagia, GERD, hx of heart attack, HTN, septic shock, smoker (SEE EMR for full PMH) who was referred for MBSS from [facility], Wen Parikh, to assess swallow function and aspiration risk due to patient reporting dysphagia with sensation of meat getting caught in his throat. Patient follows with gastroenterology. He manages GERD with omeprazole. EGD completed 11/29/2022 and revealed LA Grade C reflux esophagitis, Benign-appearing esophageal stenosis (Dilated), Medium-sized hiatal hernia, Chronic gastritis, and Duodenal erosions without bleeding. He was recommended to resume his previous diet. Patient has no current complaints for swallowing difficulty since his esophageal dilation other than occasional difficulty with hard to chew foods, like mozzarella sticks. He says he does fine if he takes small bites. Current Diet Ordered: Regular textures / Thin liquids Dentition: Upper Dentures, Partials - lower Mental Status: WNL Respiratory Status: Oxygenating on Room Air - Penetration-Aspiration Scale Penetration-Aspiration Scale: OBJECTIVE ASSESSMENT OF SWALLOW FUNCTION (QUANTITATIVE ? PER TRIAL): PENETRATION / ASPIRATION SCALE (LEMUS): 1 = does not enter airway 2 = enters airway/above vocal folds/ejected 3 = enters airway/above vocal folds/not ejected 4 = enters airway/contacts vocal folds/ejected 5 = enters airway/contacts vocal folds/not ejected 6 = enters airway/below vocal folds/ejected 7 = enters airway/below vocal folds/not ejected despite effort 8 = enters airway/below vocal folds/no effort VIDEOFLOROSCOPIC SCALE SCORE (LEMUS): Grade I = aspiration of material that has penetrated into the laryngeal vestibule, intact cough reflex Grade II = aspiration < 10 % of the bolus, intact cough reflex Grade III = aspiration of < 10 % of the bolus, reduced cough reflex or aspiration of > 10 % of the bolus, intact cough reflex Grade IV = aspiration of > 10 % of the bolus, reduced cough reflex - Penetration-Aspiration Scale Score Thin Liquid via teaspoon Result: 1= does not enter airway Thin Liquid via teaspoon Trial 2 Result: 2= enter airway/above vocal folds/ejected Thin Liquid via sequential sips from cup Result: 1= does not enter airway [place] Thick Liquid via large single sip from cup Result: 1= does not enter airway Pudding via teaspoon with esophageal screen Result: 1= does not enter airway 1/2 Cookie Result: 1= does not enter airway Thin Liquid via single sip from straw Result: 1= does not enter airway - Oral Phase Labial Seal: No Labial Escape Tongue Control During Bolus Hold: Cohesive bolus between tongue to palatal seal Bolus Preparation/Mastication: Disorganized chewing/mashing with solid pieces of bolus unchewed - Quick chewing, some pieces of cookie appeared unchewed Bolus Transport/Lingual Motion: Brisk tongue motion Oral Residue: Residue collection on oral structures - piecemeal deglutition with pudding - Pharyngeal Phase Initiation of Pharyngeal Swallow: Bolus head in valleculae Soft Palate Elevation: Trace column of contrast/air between soft palate and pharyngeal wall Laryngeal Elevation: Comp. Superior move thyroid cart w/comp. apprx arytenoid cart-epig pet Anterior Hyoid Excursion: Complete anterior movement Epiglottic Movement: Complete inversion Laryngeal Vestibule Closure at Height of Swallow: Complete; no air/contrast in laryngeal vestibule Pharyngeal Stripping Wave: Present - complete Pharyngoesophageal Segment Opening: Complete distension and complete duration; no obstruction of flow Tongue Base Retraction: Trace column of contrast between tongue base & post. pharyngeal wall Pharyngeal Residue: Trace residue within or on pharyngeal structures - Esophageal Phase Esophageal Clearance: Complete clearance - Diagnosis/Impression Diagnosis: Oropharyngeal swallow function grossly WNL Impression: The patient demonstrated swallow function grossly WNL with good bolus control, timely swallow onset, trace pharyngeal residues, good airway closure during the swallow, and timely esophageal clearance of pudding and liquids. The patient did demonstrate quick, decreased mastication of cookie. RUMPER educated the patient in increased choking and aspiration risk if patient eats/drinks too rapidly and recommended small bites of food with thorough mastication. Patient verbalized understanding of recommendations. - Recommendations Diet: Regular Textures, Thin Liquids Compensatory Strategies: Small Bites - CHEW THOROUGHLY, Small Sips, Slow Rate, Sitting upright, Remain sitting upright for 30 minutes after PO intake Recommend Repeat Modified Barium Swallow: No Need for Skilled Speech Therapy Services: No Education Completed: 1. Described result of evaluation. - Status Active ST Patient: Active - Contact Information [facility] Speech Therapy:: Jocelyn Ham M.A. [facility] Speech-Language Pathologist [facility] [address] [place] [address] [email or web address] [phone] 01/25/23 11:33
== END | disposition home or self-care (01) ==
LOC: RAD 12:39
PROVIDERS: PCP Internal Medicine; Referring Provider Nurse Practitioner Adult Health; Visit Provider Nurse Practitioner Adult Health
DX: R13.10 Dysphagia, unspecified (principal)
CPT/HCPCS: 74230; 92611

== ENCOUNTER → 2023-02-25 | Outpatient (CLI) | payer MEDICARE, MEDICAID, SELFPAY ==
--- NOTE | 2023-02-25 15:59 | NEURO ---
NCS and/or EMG Patient Report Findings: Nerve conduction studies were performed in the right upper extremity. The right median motor study recording the abductor pollicis brevis showed a normal amplitude, borderline distal latency and normal conduction velocity. The right ulnar motor study recording the abductor digiti minimi showed a normal amplitude, normal distal latency and normal conduction velocity. No conduction block or focal slowing was present across the elbow. The right median sensory response recording digit two showed a normal amplitude, latency and conduction velocity. The right ulnar sensory response recording digit five showed a normal amplitude, latency and conduction velocity. The right radial sensory response recording over the extensor snuff box showed a normal amplitude, latency and conduction velocity. The right median-ulnar lumbrical / interosseous motor latencies showed a prolonged median latency compared to the ulnar. Needle EMG of the right upper extremity muscles was performed due to the patient being on anticoagulation. No denervation was seen in any muscle. All motor unit morphology, activation and recruitment patterns were normal. Impression: This is an abnormal study. There is electrophysiologic evidence of a very mild median neuropathy across the right wrist. These findings are compatible with the clinical diagnosis of carpal tunnel syndrome. In addition, there is no electrophysiologic evidence of superimposed cervical radiculopathy. Henry Velazquez D.O. [facility] Codes Neurology Neurology Interp Codes: 36660-17 Musc test done w/n test comp (interp) and 19834-50 Nrv cndj test 7-8 studies (interp)
== END | disposition home or self-care (01) ==
LOC: PSN 14:57
PROVIDERS: PCP Internal Medicine; Referring Provider Orthopaedic Surgery; Visit Provider Orthopaedic Surgery
DX: M18.11 Unilateral primary osteoarthritis of first carpometacarpal joint, right hand (principal); G56.01 Carpal tunnel syndrome, right upper limb
CPT/HCPCS: 95886; 95910

== ENCOUNTER 2023-03-19 04:19 | Emergency (ER) | payer MEDICARE, MEDICAID, SELFPAY ==
[2023-03-19 04:21] VITALS: BP 119/71; PULSE 117; RESP 22; TEMP 36.7; O2SAT 89; BMI 23.2
--- NOTE | 2023-03-19 04:21 | RAD_ITS ---
EXAM: XR CHEST, 2 VIEWS CLINICAL INDICATION: cough sob copd TECHNIQUE: Frontal and lateral views of the chest. COMPARISON: January 10, 2022. December 12, 2021. CT chest report from November 09, 2022, CTA chest images from August 09, 2021 but exam is limited due to motion. There were borderline mediastinal or hilar lymph nodes that time. FINDINGS: LUNGS AND PLEURAL SPACES: Similar appearance of chronic mild interstitial lung changes. Mild increased patchy zones of lucency, especially lucency in the lung bases. No pneumothorax. No effusion. HEART: Unremarkable. Cardiac silhouette not enlarged. MEDIASTINUM: Central airways and mediastinal contour are unremarkable. BONES/JOINTS: Similar appearance of old healed mid-distal left clavicle fracture and multiple old left posterior rib fractures. Mildly angulated contour of the inferior margin of the left scapula may be due to old fracture. SOFT TISSUES: Unremarkable. RAD/Chest PA and Lateral IMPRESSION: 1. Chronic changes including old fractures and chronic lung parenchymal disease consistent with COPD. 2. No definite infiltrates or effusions. Electronically Signed: aJnessa Valencia MD at 5:49 EDT ,
--- NOTE | 2023-03-19 04:22 | ED.VIS.DYS ---
HPI History of Present Illness Chief Complaint: Shortness of Breath Informant: patient and EMS Narrative Narrative: 62-year-old male with a history of COPD woke up an hour and a half prior to presentation short of breath wheezing, coughing up thick yellow sputum, which was not the case when he went to bed last night. He has been around outside all day this past day, there is smoke heavily in the atmosphere due to [place] recently. States he did not have significant trouble with this yesterday nor did he the last time this was the case. No obvious trigger this morning. Humidity has been high with the weather lately, and thunderstorms came through tonight. He denies any symptoms of angina, leg swelling, no fevers or chills. No hemoptysis. EMS states that on their initial evaluation the patient was 88% on room air and he is not on home oxygen. They placed him on 2 L nasal cannula given a duo nebulizer treatment en route, that did help, and his saturations were 94% then. [facility] Medical History Arthritis Asthma Asthma-COPD overlap syndrome Atherosclerotic heart disease of [place] coronary artery without angina pectoris Back pain BPH (benign prostatic hyperplasia) Bronchiectasis CAD (coronary artery disease) Cardiology follow-up encounter COPD (chronic obstructive pulmonary disease) COPD exacerbation Dyspepsia and disorder of function of stomach Dysphagia Emphysema, unspecified Gastric reflux GERD (gastroesophageal reflux disease) High cholesterol History of echocardiogram History of heart attack History of hiatal hernia History of pain when walking History of pulmonary embolism History of steroid therapy History of stress test History of ulceration HLD (hyperlipidemia) Hypersomnia Hypertension Ischemic cardiomyopathy Nicotine abuse Old myocardial infarction Paroxysmal atrial tachycardia Paroxysmal ventricular tachycardia Premature ventricular contraction Presence of stent in coronary artery (~06/27/08) Septic shock Shortness of breath on exertion Sleep apnea Smoker Smoking greater than 40 pack years Stage 2 moderate COPD by GOLD classification Wears dentures Wears glasses Wheezing on auscultation Home Medications clopidogrel 75 mg tablet 75 mg PO QHS blood thinner 06/16/13 [History Last Taken 11/27/22] cyanocobalamin (vitamin B-12) 1,000 mcg tablet 1,000 mcg PO DAILY vitamin 10/15/17 [History Last Taken 12/11/21] cetirizine 10 mg capsule (Zyrtec) 10 mg PO DAILY allergies 12/14/17 [History Last Taken 12/11/21] aspirin 81 mg tablet,delayed release 81 mg PO DAILY HEALTH MAINTENTANCE 12/12/21 [History Last Taken 11/26/22] atorvastatin 20 mg tablet 20 mg PO QHS CHOLESTEROL 12/12/21 [History Last Taken Unknown] cholecalciferol (vitamin D3) 50 mcg (2,000 unit) tablet (Vitamin D3) 50 mcg PO DAILY SUPPLEMENT 12/12/21 [History Last Taken Unknown] gabapentin 600 mg tablet 600 mg PO QHS PRN Pain 12/12/21 [History Last Taken Unknown] lisinopril 2.5 mg tablet 2.5 mg PO DAILY BLOOD PRESSURE 12/12/21 [History Last Taken 11/29/22] montelukast 10 mg tablet (Singulair) 10 mg PO QHS BREATHING 12/12/21 [History Last Taken Unknown] PEP device 01/30/22 [History Last Taken Unknown] budesonide 160 mcg-glycopyr 9 mcg-formot 4.8 mcg/actuation HFA inhaler (Breztri Aerosphere) 2 inh inhalation BID 11/28/22 [History Last Taken Unknown] omeprazole 20 mg capsule,delayed release 40 mg (2 x 20 mg) PO BID #120 caps 12/20/22 [Rx Last Taken Unknown] albuterol sulfate 2.5 mg/3 mL (0.083 %) solution for nebulization 2.5 mg inhalation Q4H PRN shortness of breath or wheezing 02/01/23 [History Last Taken Unknown] amoxicillin 875 mg-potassium clavulanate 125 mg tablet 1 tab PO BID #10 tabs 02/01/23 [Rx Last Taken Unknown] prednisone 10 mg tablet 10 mg PO QDAY #30 tabs 02/01/23 [Rx Last Taken Unknown] albuterol sulfate 90 mcg/actuation aerosol inhaler 2 puff inhalation Q4H PRN Asthma #8.5 grams 03/15/23 [Rx Last Taken Unknown] doxycycline monohydrate 100 mg capsule 100 mg PO BID #14 CAPSULES 03/19/23 [Rx Last Taken Unknown] prednisone 20 mg tablet 40 mg (2 x 20 mg) PO DAILY #10 TABLETS 03/19/23 [Rx Last Taken Unknown] Allergy/AdvReac Type Severity Reaction Status Date / Time latex Allergy Rash Verified 03/19/23 04:26 varenicline tartrate Allergy Hives Verified 03/19/23 04:26 [From Chantix] aspirin AdvReac Upset Verified 03/19/23 04:26 Stomach Family History (Reviewed 02/01/23 @ 14:03 by Debbi Schaffer FEDERAL APPELLATE CLERK, FEDERAL APPELLATE CLERK-C) Father , age 50 CAD (coronary artery disease) Heart disease Myocardial infarction Mother Diabetes Brother Hypertension Surgical History (Reviewed 02/01/23 @ 14:03 by Debbi Schaffer FEDERAL APPELLATE CLERK, FEDERAL APPELLATE CLERK-C) History of cardiac catheterization History of coronary artery stent placement History of hernia repair History of thumb surgery Hx of angioplasty Hx of cystoscopy Hx of nasal sinusotomy Hx of right knee surgery Hx of shoulder surgery Hx of sinus surgery Hx of tonsillectomy Presence of coronary angioplasty implant and graft (~06/27/08) Social History household members: significant other and children Smoking Status: Current some day smoker tobacco type: cigarettes and smokeless tobacco how long ago did patient quit smoking: July 2021 alcohol intake: never substance use type: does not use caffeine: Yes Type: coffee Number of servings: 3 what type of physical activity do you participate in: walking frequency: daily duration: 45-60 minutes/day seatbelt use: always do you feel safe at home: Yes ROS ROS ED Constitutional Constitutional ED: Denies chills or fever(s) Eyes Eyes: Denies change in vision or diplopia ENT ENT ED: Denies rhinorrhea or sore throat Cardiovascular Cardiovascular: Denies chest pain or palpitations Respiratory/Chest Respiratory/Chest: Reports cough, dyspnea and sputum Gastrointestinal Gastrointestinal: Denies abdominal pain, diarrhea, nausea or vomiting Genitourinary Genitourinary ED: Denies dysuria or hematuria Musculoskeletal Musculoskeletal: Denies back pain or neck pain Integumentary Denies abscess or rash Neurologic Neurologic: Denies headache(s), paresthesias or weakness Psychiatric Psychiatric: Denies anxiety or suicidal thoughts EXAM Physical Exam Const Vital Signs: 03/19/23 04:21 03/19/23 04:24 03/19/23 04:28 Temperature 98.1 F Temperature Source Temporal Pulse Rate 117 H Respiratory Rate 22 H Respiratory Effort Short of Breath Respiratory Depth Shallow Respiratory Pattern Tachypnea Blood Pressure 119/71 Blood Pressure Mean 87 Pulse Ox 89 93 Oxygen Delivery Method Room Air Nasal Cannula Nasal Cannula Oxygen Flow Rate (L/min) 2 2 03/19/23 04:45 Temperature Temperature Source Pulse Rate 108 H Respiratory Rate 16 Respiratory Effort Respiratory Depth Respiratory Pattern Normal Blood Pressure Blood Pressure Mean Pulse Ox Oxygen Delivery Method Oxygen Flow Rate (L/min) Positive well nourished and well developed Constitutional Narrative: Mild respiratory distress General Appearance ED: well developed HEENT Reports moist mucous membranes normocephalic and atraumatic Eyes PERRL and EOMs intact bilaterally Neck full ROM, supple and no meningeal signs Resp Resp Narrative: Tachypneic in mild distress, speaking in 5-7 word sentences, expiratory wheezes in all noe symmetric breath sounds bilaterally, trachea midline no rales or rhonchi. Cardio regular rate, regular rhythm and no murmurs Rate: Negative for tachycardic GI non-tender and non-distended Auscultation: normoactive bowel sounds Palpation: soft Back/Spine no CVA tenderness General Back: other FROM Extremity normal to inspection General Extremety ED: Negative for edema, pulses abnormal or tenderness General Extremity: Negative for edema or pulses abnormal Neuro oriented x3, CN's II-XII intact bilaterally and no sensory deficits noted Sensorium / Orientation: awake and alert Motor Exam: strength 5/5 throughout Psych mental status grossly normal Skin no rashes or lesions noted and no wounds MDM MDM MDM Narrative Medical decision making narrative: Patient was given IV Solu-Medrol 125 as well as a series of 3 albuterol treatments stacked. He felt much better on reevaluation. I turned his oxygen off, while sleeping he is at 90% on room air and breathing much better with normal vital signs otherwise. Chest x-ray 2 views of my interpretation shows chronic changes but no acute pneumonia or pneumothorax. Radiology in agreement. His EKG is normal, similar to old, no acute injury pattern. Uncomfortable calling this a COPD exacerbation and allowing him to go home. He has nebulizer and rescue inhaler there, prescribed prednisone burst as well as doxycycline which she can start whenever he gets it, to help prevent bacterial superinfection. He is comfortable with this plan and comfortable going home. Radiography Diagnostic Testing: Clinical Impression(s) from Imaging Studies Chest X-Ray 03/19/23 04:21 IMPRESSION: 1. Chronic changes including old fractures and chronic lung parenchymal disease consistent with COPD. 2. No definite infiltrates or effusions. Electronically Signed: Janessa Valencia MD at 5:49 EDT , Rhythm Strip Rhythm Strip: Sinus Tach Rate: 102 Ectopy: None EKG Initial EKG: Attestation: I personally reviewed and interpreted this EKG as follows: Interpretation: No Acute Injury Pattern and Sinus Tachycardia Prior EKG tracings: available for review Prior: Unchanged Discharge Plan Triage Chief Complaint: Shortness of Breath ED Provider: Adeel Busch Dx/Rx/DC Orders Clinical Impression: Acute exacerbation of chronic obstructive pulmonary disease (COPD) Instructions: ED COPD Flare Prescriptions: New prednisone 20 mg tablet 40 mg PO DAILY Qty: 10 0RF doxycycline monohydrate 100 mg capsule 100 mg PO BID Qty: 14 0RF No Action cyanocobalamin (vitamin B-12) 1,000 mcg tablet 1,000 mcg PO DAILY (DME) PEP device See Rx Instructions .ROUTE .MEDSUPPLY Rx Instructions: with training omeprazole 20 mg capsule,delayed release(DR/EC) 40 mg PO BID Qty: 120 1RF albuterol sulfate 2.5 mg /3 mL (0.083 %) solution for nebulization 2.5 mg inhalation Q4H PRN (Reason: shortness of breath or wheezing) amoxicillin-pot clavulanate 875-125 mg tablet 1 tab PO BID Qty: 10 0RF Hold Instructions: MD Ordered prednisone 10 mg tablet 10 mg PO QDAY Qty: 30 0RF Hold Instructions: MD Ordered Rx Instructions: take 4 tabs for three days, then 3 tabs for three days, then 2 tabs for three days, then 1 tab for 3 days clopidogrel 75 MG tablet 75 mg PO QHS Patient Comments: BLOOD THINNER Zyrtec 10 MG capsule 10 mg PO DAILY aspirin 81 mg Tablet,Delayed Release (Dr/Ec) 81 mg PO DAILY gabapentin 600 mg Tablet 600 mg PO QHS PRN (Reason: Pain) atorvastatin 20 mg Tablet 20 mg PO QHS lisinopril 2.5 mg Tablet 2.5 mg PO DAILY montelukast [Singulair] 10 mg Tablet 10 mg PO QHS cholecalciferol (vitamin D3) [Vitamin D3] 50 mcg (2,000 unit) Tablet 50 mcg PO DAILY Breztri Aerosphere 160-9-4.8 mcg/actuation Hfa Aerosol Inhaler 2 inh INHALATION BID albuterol sulfate 90 mcg/actuation HFA aerosol inhaler 2 puff INHALATION Q4H PRN (Reason: Asthma) Qty: 8.5 11RF Primary Care Provider: Alexey Mayberry Referrals: Alexey Mayberry MD [Primary Care Provider] - 3-5 Days if not improving Disposition Disposition: Home, Self Care
[2023-03-19 04:24] VITALS: O2SAT 93
[2023-03-19 04:28] VITALS: O2SAT 93
[2023-03-19] MEDS: Albuterol 2.5 MG/3 ML VIAL.NEB. INHALATION ×3 (04:44)
[2023-03-19 04:45] VITALS: PULSE 108; RESP 16
[2023-03-19] MEDS: MethylPREDNISolone 125 MG/2 ML Vial IV (04:53)
[2023-03-19 06:07] VITALS: BP 111/66; PULSE 106; RESP 18; TEMP 33.3
== END 2023-03-19 06:07 | disposition home or self-care (01) ==
PROVIDERS: Emergency Provider Emergency Medicine; PCP Internal Medicine; Visit Provider Emergency Medicine
DX: J44.1 Chronic obstructive pulmonary disease with (acute) exacerbation (principal); I25.10 Atherosclerotic heart disease of native coronary artery without angina pectoris; E78.00 Pure hypercholesterolemia, unspecified; F17.210 Nicotine dependence, cigarettes, uncomplicated; I10 Essential (primary) hypertension; Z79.899 Other long term (current) drug therapy; Z79.02 Long term (current) use of antithrombotics/antiplatelets; Z79.82 Long term (current) use of aspirin; Z95.5 Presence of coronary angioplasty implant and graft; F17.290 Nicotine dependence, other tobacco product, uncomplicated
CPT/HCPCS: 71046; 93005; 94640; 96374; 99285; A4216

== ENCOUNTER → 2023-04-12 | Outpatient (CLI) | payer MEDICARE, MEDICAID, SELFPAY | END | disposition home or self-care (01) | LOC: LABSPEC 09:58 | PROVIDERS: PCP Internal Medicine; Referring Provider Internal Medicine Critical Care Medicine; Visit Provider Internal Medicine Critical Care Medicine | DX: J47.9 Bronchiectasis, uncomplicated (principal) | CPT/HCPCS: 87070; 87077; 87186; 87205 ==

== ENCOUNTER 2023-07-07 15:33 | Emergency (ER) | payer MEDICARE, MEDICAID, SELFPAY ==
[2023-07-07 15:34] VITALS: BP 109/79; PULSE 90; RESP 18; TEMP 36.3; O2SAT 96; BMI 23.3
[2023-07-07 15:46] VITALS: O2SAT 91
[2023-07-07] MEDS: predniSONE 20 MG Tablet 60 MG PO (16:09)
[2023-07-07] MEDS: Azithromycin 250 MG Tablet 500 MG PO (16:09)
[2023-07-07] MEDS: Ipratropium/Albuterol Sulfate 3 ML AMPUL.NEB INHALATION (16:12)
[2023-07-07 16:15] VITALS: PULSE 84; RESP 18
--- NOTE | 2023-07-07 16:35 | ED.VIS.DYS ---
HPI History of Present Illness Chief Complaint: Shortness of Breath Informant: patient Narrative Narrative: Eden is a 62 year old male with history of COPD, follows with Dr. Devries, presented with worsening shortness of breath, wheeze and cough. Feels like a COPD exacerbation. States symptoms started a week ago but worsened 2 days ago when he was bowling. He states he was pretty short of breath after the second game. He states he has developed a cough that is productive of dark yellow sputum. Is using his breathing treatments at home with no relief now. States he has some tightness in his chest but denies any actual chest pain. Denies any fever or chills. Denies any GI or symptoms. States he does not want this to get worse which is why he is coming to the emergency room now. No other complaints or concerns at this time. [facility] Medical History Arthritis Asthma Asthma-COPD overlap syndrome Atherosclerotic heart disease of [place] coronary artery without angina pectoris Back pain BPH (benign prostatic hyperplasia) Bronchiectasis CAD (coronary artery disease) Cardiology follow-up encounter COPD (chronic obstructive pulmonary disease) COPD exacerbation Dyspepsia and disorder of function of stomach Dysphagia Emphysema, unspecified Gastric reflux GERD (gastroesophageal reflux disease) High cholesterol History of echocardiogram History of heart attack History of hiatal hernia History of pain when walking History of pulmonary embolism History of steroid therapy History of stress test History of ulceration HLD (hyperlipidemia) Hypersomnia Hypertension Ischemic cardiomyopathy Nicotine abuse Old myocardial infarction Paroxysmal atrial tachycardia Paroxysmal ventricular tachycardia Premature ventricular contraction Presence of stent in coronary artery (~06/27/08) Septic shock Shortness of breath on exertion Sleep apnea Smoker Smoking greater than 40 pack years Stage 2 moderate COPD by GOLD classification Wears dentures Wears glasses Wheezing on auscultation Home Medications clopidogrel 75 mg tablet 75 mg PO QHS blood thinner 06/16/13 [History Last Taken 11/27/22] cyanocobalamin (vitamin B-12) 1,000 mcg tablet 1,000 mcg PO DAILY vitamin 10/15/17 [History Last Taken 12/11/21] cetirizine 10 mg capsule (Zyrtec) 10 mg PO DAILY allergies 12/14/17 [History Last Taken 12/11/21] aspirin 81 mg tablet,delayed release 81 mg PO DAILY HEALTH MAINTENTANCE 12/12/21 [History Last Taken 11/26/22] atorvastatin 20 mg tablet 20 mg PO QHS CHOLESTEROL 12/12/21 [History Last Taken Unknown] cholecalciferol (vitamin D3) 50 mcg (2,000 unit) tablet (Vitamin D3) 50 mcg PO DAILY SUPPLEMENT 12/12/21 [History Last Taken Unknown] gabapentin 600 mg tablet 600 mg PO QHS PRN Pain 12/12/21 [History Last Taken Unknown] lisinopril 2.5 mg tablet 2.5 mg PO DAILY BLOOD PRESSURE 12/12/21 [History Last Taken 11/29/22] montelukast 10 mg tablet (Singulair) 10 mg PO QHS BREATHING 12/12/21 [History Last Taken Unknown] PEP device 01/30/22 [History Last Taken Unknown] budesonide 160 mcg-glycopyr 9 mcg-formot 4.8 mcg/actuation HFA inhaler ([employer]) 2 inh inhalation BID 11/28/22 [History Last Taken Unknown] omeprazole 20 mg capsule,delayed release 40 mg (2 x 20 mg) PO BID #120 caps 12/20/22 [Rx Last Taken Unknown] albuterol sulfate 2.5 mg/3 mL (0.083 %) solution for nebulization 2.5 mg inhalation Q4H PRN shortness of breath or wheezing 02/01/23 [History Last Taken Unknown] albuterol sulfate 90 mcg/actuation aerosol inhaler 2 puff inhalation Q4H PRN Asthma #8.5 grams 03/15/23 [Rx Last Taken Unknown] levofloxacin 750 mg tablet 750 mg PO DAILY #7 tabs 04/15/23 [Rx Last Taken Unknown] prednisone 10 mg tablet 10 mg PO QDAY #30 tabs 05/31/23 [Rx Last Taken Unknown] amoxicillin 875 mg-potassium clavulanate 125 mg tablet 1 tab PO BID #10 tabs 06/24/23 [Rx Last Taken Unknown] azithromycin 250 mg tablet 250 mg PO DAILY #4 TABLETS 07/07/23 [Rx Last Taken Unknown] prednisone 20 mg tablet 40 mg (2 x 20 mg) PO DAILY #8 tabs 07/07/23 [Rx Last Taken Unknown] Allergy/AdvReac Type Severity Reaction Status Date / Time latex Allergy Rash Verified 07/07/23 15:34 varenicline tartrate Allergy Hives Verified 07/07/23 15:34 [From Chantix] aspirin AdvReac Upset Verified 07/07/23 15:34 Stomach Family History Father , age 50 CAD (coronary artery disease) Heart disease Myocardial infarction Mother Diabetes Brother Hypertension Surgical History History of cardiac catheterization History of coronary artery stent placement History of hernia repair History of thumb surgery Hx of angioplasty Hx of cystoscopy Hx of nasal sinusotomy Hx of right knee surgery Hx of shoulder surgery Hx of sinus surgery Hx of tonsillectomy Presence of coronary angioplasty implant and graft (~06/27/08) Social History household members: significant other and children Smoking Status: Current some day smoker tobacco type: cigarettes and smokeless tobacco how long ago did patient quit smoking: July 2021 alcohol intake: never substance use type: does not use caffeine: Yes Type: coffee Number of servings: 3 what type of physical activity do you participate in: walking frequency: daily duration: 45-60 minutes/day seatbelt use: always do you feel safe at home: Yes ROS ROS ED Constitutional Constitutional ED: Denies chills or fever(s) ENT ENT ED: Denies rhinorrhea or sore throat Cardiovascular Cardiovascular: Denies chest pain Respiratory/Chest Respiratory/Chest: Reports cough, dyspnea, dyspnea on exertion and sputum Gastrointestinal Gastrointestinal: Denies nausea or vomiting Musculoskeletal Musculoskeletal: Denies arthralgias or myalgias Integumentary Denies rash Neurologic Neurologic: Denies weakness Hematologic/Lymphatic Hematologic/Lymphatic: Denies easy bleeding or easy bruising EXAM Physical Exam Const Vital Signs: 07/07/23 15:34 07/07/23 15:46 07/07/23 16:15 Temperature 97.3 F L Temperature Source Temporal Pulse Rate 90 84 Respiratory Rate 18 18 Respiratory Effort Short of Breath Respiratory Depth Normal Respiratory Pattern Tachypnea Normal Blood Pressure 109/79 Blood Pressure Mean 89 Pulse Ox 96 Oxygen Delivery Method Room Air Room Air 07/07/23 16:46 Temperature Temperature Source Pulse Rate 85 Respiratory Rate 16 Respiratory Effort Respiratory Depth Respiratory Pattern Blood Pressure 113/67 Blood Pressure Mean 82 Pulse Ox 95 Oxygen Delivery Method Positive well nourished and well developed General Appearance ED: well developed and NAD HEENT Reports TM's clear and moist mucous membranes Tympanic Membrane ED: Yes TM's clear Eyes PERRL and EOMs intact bilaterally Neck supple and no JVD Resp normal respiratory effort Resp Narrative: Mild conversational dyspnea present. Scattered wheezes inspiratory and expiratory in the upper lung noe. Breath sounds appreciated throughout. Auscultation: wheezes; Negative for diminished lung sounds Cardio regular rate and regular rhythm GI non-tender and non-distended Extremity normal to inspection Neuro oriented x3 Sensorium / Orientation: alert Psych mental status grossly normal Skin no wounds Rashes: no rashes MDM MDM MDM Narrative Medical decision making narrative: Patient is evaluated for sounds like a COPD exacerbation. He does not have a fever or focal findings a low suspicion for pneumonia. I do not think he requires a chest x-ray at this time. This does not seem cardiac in nature. Is given a DuoNeb in the ER. Is not hypoxic and I do not think he requires admission at this time. We will start on a burst of prednisone and give a dose of azithromycin given the change in his cough/sputum production. Has follow-up later in the week with pulmonology [employer]. Given return precautions to the ER. He verbalized agreement understand this plan. Discharged home in stable condition. Patient informed me that he has plenty of albuterol at home and does not need refills. Discharge Plan Triage Chief Complaint: Shortness of Breath ED Provider: Traci Rome Dx/Rx/DC Orders Clinical Impression: Acute exacerbation of chronic obstructive pulmonary disease Instructions: ED COPD Flare Prescriptions: New prednisone 20 mg tablet 40 mg PO DAILY Qty: 8 0RF azithromycin 250 mg tablet 250 mg PO DAILY Qty: 4 0RF No Action cyanocobalamin (vitamin B-12) 1,000 mcg tablet 1,000 mcg PO DAILY (DME) PEP device See Rx Instructions .ROUTE .MEDSUPPLY Rx Instructions: with training omeprazole 20 mg capsule,delayed release(DR/EC) 40 mg PO BID Qty: 120 1RF albuterol sulfate 2.5 mg /3 mL (0.083 %) solution for nebulization 2.5 mg inhalation Q4H PRN (Reason: shortness of breath or wheezing) clopidogrel 75 MG tablet 75 mg PO QHS Patient Comments: BLOOD THINNER Zyrtec 10 MG capsule 10 mg PO DAILY aspirin 81 mg Tablet,Delayed Release (Dr/Ec) 81 mg PO DAILY gabapentin 600 mg Tablet 600 mg PO QHS PRN (Reason: Pain) atorvastatin 20 mg Tablet 20 mg PO QHS lisinopril 2.5 mg Tablet 2.5 mg PO DAILY montelukast [Singulair] 10 mg Tablet 10 mg PO QHS cholecalciferol (vitamin D3) [Vitamin D3] 50 mcg (2,000 unit) Tablet 50 mcg PO DAILY Breztri Aerosphere 160-9-4.8 mcg/actuation Hfa Aerosol Inhaler 2 inh INHALATION BID albuterol sulfate 90 mcg/actuation HFA aerosol inhaler 2 puff INHALATION Q4H PRN (Reason: Asthma) Qty: 8.5 11RF levofloxacin 750 mg tablet 750 mg PO DAILY Qty: 7 0RF prednisone 10 mg tablet 10 mg PO QDAY Qty: 30 0RF Rx Instructions: take 4 tabs for three days, then 3 tabs for three days, then 2 tabs for three days, then 1 tab for 3 days amoxicillin-pot clavulanate 875-125 mg tablet 1 tab PO BID Qty: 10 0RF Primary Care Provider: Alexey Mayberry Referrals: Alexey Mayberry MD [Primary Care Provider] - Activity Restrictions/Additional Instructions: Take all medications as prescribed. Return to the ER if you have a progression or worsening of your breathing. Follow-up with pulmonology as scheduled later in the week. Disposition Disposition: Home, Self Care Discharge Date/Time: 07/07/23 16:50
[2023-07-07 16:46] VITALS: BP 113/67; PULSE 85; RESP 16; O2SAT 95
== END 2023-07-07 16:50 | disposition home or self-care (01) ==
PROVIDERS: Emergency Provider Emergency Medicine; PCP Internal Medicine; Visit Provider Emergency Medicine
DX: J44.1 Chronic obstructive pulmonary disease with (acute) exacerbation (principal); I25.10 Atherosclerotic heart disease of native coronary artery without angina pectoris; E78.00 Pure hypercholesterolemia, unspecified; F17.210 Nicotine dependence, cigarettes, uncomplicated; I10 Essential (primary) hypertension; I25.2 Old myocardial infarction; Z79.02 Long term (current) use of antithrombotics/antiplatelets; Z79.82 Long term (current) use of aspirin; Z79.899 Other long term (current) drug therapy; J45.909 Unspecified asthma, uncomplicated; Z79.51 Long term (current) use of inhaled steroids; K21.9 Gastro-esophageal reflux disease without esophagitis; Z95.5 Presence of coronary angioplasty implant and graft; F17.290 Nicotine dependence, other tobacco product, uncomplicated
CPT/HCPCS: 94640; 99283

== ENCOUNTER 2023-09-26 11:00 | Emergency (ER) | payer MEDICARE, MEDICAID, SELFPAY ==
[2023-09-26 11:03] VITALS: BP 162/135; PULSE 104; RESP 20; TEMP 36.7; O2SAT 94; BMI 24.5
[2023-09-26 11:10] VITALS: BP 112/67; PULSE 103; PULSE 106; RESP 17; RESP 25; TEMP 36.8; O2SAT 93
[2023-09-26 11:12] VITALS: O2SAT 93
--- NOTE | 2023-09-26 11:15 | EDS_ITS ---
HPI History of Present Illness Chief Complaint: Shortness of Breath Detail of Chief Complaint: Shortness of breath Informant: patient Narrative Narrative: Patient presents to the emergency department complaint of shortness of breath that started this morning around 9:30 AM rather suddenly. Patient states he was watching television when he started feeling short of breath and became sweaty. Patient states he used his inhaler and noticed that his heart rate increased to 1 10-1 18. He called EMS. He does have history of COPD and asthma. He denies any chest pain. He has had a cough for several days and bringing up some thick yellow sputum. He denies any fevers. Patient has had similar episodes like this before when his COPD is flared up. 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 pectoris Back pain BPH (benign prostatic hyperplasia) Bronchiectasis CAD (coronary artery disease) Cardiology follow-up encounter COPD (chronic obstructive pulmonary disease) COPD exacerbation Dyspepsia and disorder of function of stomach Dysphagia Emphysema, unspecified Gastric reflux GERD (gastroesophageal reflux disease) High cholesterol History of echocardiogram History of heart attack History of hiatal hernia History of pain when walking History of pulmonary embolism History of steroid therapy History of stress test History of ulceration HLD (hyperlipidemia) Hypersomnia Hypertension Ischemic cardiomyopathy Nicotine abuse Old myocardial infarction Paroxysmal atrial tachycardia Paroxysmal ventricular tachycardia Premature ventricular contraction Presence of stent in coronary artery (~06/27/08) Septic shock Shortness of breath on exertion Sleep apnea Smoker Smoking greater than 40 pack years Stage 2 moderate COPD by GOLD classification Wears dentures Wears glasses Wheezing on auscultation Home Medications clopidogrel 75 mg tablet 75 mg PO QHS blood thinner 06/16/13 [History Last Taken 11/27/22] cyanocobalamin (vitamin B-12) 1,000 mcg tablet 1,000 mcg PO DAILY vitamin 10/15/17 [History Last Taken 12/11/21] cetirizine 10 mg capsule (Zyrtec) 10 mg PO DAILY allergies 12/14/17 [History Last Taken 12/11/21] aspirin 81 mg tablet,delayed release 81 mg PO DAILY HEALTH MAINTENTANCE 12/12/21 [History Last Taken 11/26/22] atorvastatin 20 mg tablet 20 mg PO QHS CHOLESTEROL 12/12/21 [History Last Taken Unknown] cholecalciferol (vitamin D3) 50 mcg (2,000 unit) tablet (Vitamin D3) 50 mcg PO DAILY SUPPLEMENT 12/12/21 [History Last Taken Unknown] gabapentin 600 mg tablet 600 mg PO QHS PRN Pain 12/12/21 [History Last Taken Unknown] lisinopril 2.5 mg tablet 2.5 mg PO DAILY BLOOD PRESSURE 12/12/21 [History Last Taken 11/29/22] montelukast 10 mg tablet (Singulair) 10 mg PO QHS BREATHING 12/12/21 [History Last Taken Unknown] PEP device 01/30/22 [History Last Taken Unknown] budesonide 160 mcg-glycopyr 9 mcg-formot 4.8 mcg/actuation HFA inhaler ([employer]) 2 inh inhalation BID 11/28/22 [History Last Taken Unknown] omeprazole 20 mg capsule,delayed release 40 mg (2 x 20 mg) PO BID #120 caps 12/20/22 [Rx Last Taken Unknown] doxycycline hyclate 100 mg tablet 100 mg PO BID #20 tabs 08/28/23 [Rx Last Taken Unknown] prednisone 10 mg tablet 10 mg PO QDAY #30 tabs 08/28/23 [Rx Last Taken Unknown] albuterol sulfate 2.5 mg/3 mL (0.083 %) solution for nebulization 2.5 mg (3 mL) inhalation Q4H PRN shortness of breath or wheezing #180 mL 09/26/23 [Rx Last Taken Unknown] albuterol sulfate 90 mcg/actuation aerosol inhaler 2 puff inhalation Q4H PRN Asthma #8.5 grams 09/26/23 [Rx Last Taken Unknown] doxycycline monohydrate 100 mg capsule 100 mg PO BID #20 CAPSULES 09/26/23 [Rx Last Taken Unknown] fluticasone propionate 50 mcg/actuation nasal spray,suspension (Flonase Allergy Relief) 2 spray intranasal DAILY #16 grams 09/26/23 [Rx Last Taken Unknown] prednisone 20 mg tablet 20 mg PO BID #10 tabs 09/26/23 [Rx Last Taken Unknown] Allergy/AdvReac Type Severity Reaction Status Date / Time latex Allergy Rash Verified 09/26/23 11:03 varenicline tartrate Allergy Hives Verified 09/26/23 11:03 [From Chantix] aspirin AdvReac Upset Verified 09/26/23 11:03 Stomach Family History Father , age 50 CAD (coronary artery disease) Heart disease Myocardial infarction Mother Diabetes Brother Hypertension Surgical History History of cardiac catheterization History of coronary artery stent placement History of hernia repair History of thumb surgery Hx of angioplasty Hx of cystoscopy Hx of nasal sinusotomy Hx of right knee surgery Hx of shoulder surgery Hx of sinus surgery Hx of tonsillectomy Presence of coronary angioplasty implant and graft (~06/27/08) Social History (Updated 07/23/23 @ 14:11 by Celestina Schaffer) household members: significant other and children Smoking Status: Current some day smoker tobacco type: cigarettes and smokeless tobacco alcohol intake: never substance use type: does not use caffeine: Yes Type: coffee Number of servings: 3 what type of physical activity do you participate in: walking frequency: daily duration: 45-60 minutes/day seatbelt use: always do you feel safe at home: Yes ROS ROS ED Review of Systems ROS Unobtainable: other Constitutional Constitutional ED: Reports lethargy; Denies chills, fever(s), sweats or weight loss Eyes Eyes: Denies blurry vision, change in vision or diplopia ENT ENT ED: Denies rhinorrhea or sore throat Cardiovascular Cardiovascular: Denies chest pain, orthopnea or racing heartbeat Respiratory/Chest Respiratory/Chest: Reports cough, dyspnea and dyspnea on exertion; Denies orthopnea or sputum Gastrointestinal Gastrointestinal: Denies abdominal pain, diarrhea, nausea or vomiting Genitourinary Genitourinary ED: Denies dysuria, hematuria or urinary frequency Musculoskeletal Musculoskeletal: Denies arthralgias, back pain, myalgias or neck pain Integumentary Denies abscess, Abrasions or rash Neurologic Neurologic: Denies headache(s) or weakness Psychiatric Psychiatric: Denies anxiety, depression or suicidal thoughts Endocrine Endocrinology: Denies polydipsia, polyphagia or polyuria Hematologic/Lymphatic Hematologic/Lymphatic: Denies easy bleeding, easy bruising or lymphadenopathy Allergic/Immunologic Allergic/Immunologic ED: Denies mouth swelling, tongue swelling or urticaria EXAM Physical Exam Const Vital Signs: 09/26/23 11:03 09/26/23 11:10 09/26/23 11:10 Temperature 98.1 F 98.2 F Temperature Source Oral Oral Pulse Rate 104 H 106 H 103 H Respiratory Rate 20 H 17 25 H Respiratory Effort Respiratory Depth Respiratory Pattern Blood Pressure 162/135 H 112/67 112/67 Blood Pressure Mean 144 82 82 Pulse Ox 94 93 93 Oxygen Delivery Method Room Air Room Air Room Air 09/26/23 11:12 09/26/23 11:21 09/26/23 11:26 Temperature Temperature Source Pulse Rate 97 Respiratory Rate 19 H Respiratory Effort Short of Breath Respiratory Depth Shallow Respiratory Pattern Tachypnea Normal Blood Pressure Blood Pressure Mean Pulse Ox 93 Oxygen Delivery Method Room Air Room Air 09/26/23 12:31 Temperature Temperature Source Pulse Rate 90 Respiratory Rate 24 H Respiratory Effort Respiratory Depth Respiratory Pattern Blood Pressure 104/84 H Blood Pressure Mean 90 Pulse Ox 93 Oxygen Delivery Method Positive well nourished and well developed General Appearance ED: well developed and NAD HEENT Reports TM's clear and moist mucous membranes normocephalic and atraumatic; Negative for trauma or tenderness Tympanic Membrane ED: Yes TM's clear Eyes PERRL and EOMs intact bilaterally General Eye ED: Negative for pale conjunctiva or scleral icterus Neck no lymphadenopathy, supple and no JVD General: Negative for tenderness Chest Wall inspection of chest normal and palpation of chest normal Chest: Negative for tenderness Resp normal respiratory effort and clear to auscultation bilaterally Resp Narrative: Mild tachypnea. No accessory muscle use or retractions. Effort and Inspection: Negative for respiratory distress or pain with movement Auscultation: wheezes and diminished lung sounds; Negative for rhonchi Cardio regular rate, regular rhythm, S1 normal heart sound, S2 normal heart sound and no murmurs Peripheral Pulses: pulses 2+ throughout GI normal to inspection, nondistended, normoactive bowel sounds, soft to palpation, non-tender, non-distended and no masses Back/Spine no CVA tenderness and no thoracic nor lumbar tenderness Extremity normal to inspection General Extremety ED: Negative for edema General Extremity: Negative for edema Neuro oriented x3, CN's II-XII intact bilaterally, no sensory deficits noted and gait normal Sensorium / Orientation: awake, alert, oriented to person, oriented to place and oriented to time Motor Exam: strength 5/5 throughout and strength abnormal Psych mental status grossly normal Skin no rashes or lesions noted and no wounds MDM MDM MDM Narrative Medical decision making narrative: Patient presents with red limitedly sudden onset of dyspnea while at rest. He had a little bit of a cough for couple days. Coughing up some thick sputum. He denies chest pain. On exam he is wheezing and tachypneic. He was given a DuoNeb aerosol and started on Solu-Medrol. CBC with differential obtained showed a white count 5.4 with hemoglobin 13.7 and platelet count 272. Chemistries were unremarkable. Troponin normal at 8. D-dimer was normal. 1 view chest x-ray was unremarkable. After treatment he did feel improved. He is not hypoxic. Still continues to have some wheezing but I suspect this may be his baseline. When asked how he is feeling he states he feels much better and believes he is close to baseline. Will ambulate patient with pulse ox to make sure he does not drop his pulse ox. He tells me he went to the bathroom and really felt pretty good did not have any trouble. If he passes his ambulation with pulse ox he will be discharged to home with diagnosis of COPD exacerbation. He will be started on prednisone and doxycycline. Were advised to follow-up with his director social service within the next 3 to 5 days. Will advised to return if increasing shortness of breath or condition worsening way. He did have COVID and flu and RSV testing here that was negative. Lab Data Attestation: I reviewed the patient's lab results. Labs: Laboratory Results - last 24 hr 09/26/23 11:05 WBC 5.4 RBC 4.58 L Hgb 13.7 Hct 41.8 MCV 91.3 MCH 29.9 MCHC 32.8 RDW Std Deviation 45.7 H RDW Coeff of [place] 13.6 Plt Count 272 MPV 9.4 Immature Gran % (Auto) 0.700 Neut % (Auto) 69.1 Lymph % (Auto) 15.1 L Boy[place] % (Auto) 9.5 Eos % (Auto) 5.0 Baso % (Auto) 0.6 Absolute Neuts (auto) 3.7 Absolute Lymphs (auto) 0.81 L Nucleated RBC % 0 D-Dimer Quant (PE/DVT) 0.44 Sodium 139 Potassium 3.6 Chloride 107 Carbon Dioxide 25.0 Anion Gap 7 BUN 11 Creatinine 0.99 Estim Creat Clear Calc 74.85 Est GFR (MDRD) Af Amer 99 Est GFR (MDRD) Non-Af 82 BUN/Creatinine Ratio 11.1 Glucose 155 H Calcium 8.9 Troponin I High Sens 8 Radiography Diagnostic Testing: Clinical Impression(s) from Imaging Studies Chest X-Ray 09/26/23 11:26 IMPRESSION: 1. No significant change since the previous exam. 2. No new infiltrate seen. Electronically Signed: Ariel Hilsl MD at 12:08 EST , 1 view chest x-ray obtained interpreted myself as no evidence of infiltrate or pneumothorax or acute disease process. Radiology in agreement. EKG Initial EKG: Attestation: I personally reviewed and interpreted this EKG as follows: Comments: Sinus rhythm with ventricular rate of 98 bpm with PVCs. No acute ST segment changes. Discharge Plan Triage Chief Complaint: Shortness of Breath ED Provider: Ryann Yu Dx/Rx/DC Orders Clinical Impression: COPD exacerbation Instructions: ED COPD Flare Prescriptions: New doxycycline monohydrate 100 mg capsule 100 mg PO BID Qty: 20 0RF prednisone 20 mg tablet 20 mg PO BID Qty: 10 0RF fluticasone propionate [Flonase Allergy Relief] 50 mcg/actuation spray,suspension 2 spray intranasal DAILY Qty: 16 0RF Rx Instructions: administer into each nostril No Action cyanocobalamin (vitamin B-12) 1,000 mcg tablet 1,000 mcg PO DAILY (DME) PEP device See Rx Instructions .ROUTE .MEDSUPPLY Rx Instructions: with training omeprazole 20 mg capsule,delayed release(DR/EC) 40 mg PO BID Qty: 120 1RF clopidogrel 75 MG tablet 75 mg PO QHS Patient Comments: BLOOD THINNER Zyrtec 10 MG capsule 10 mg PO DAILY aspirin 81 mg Tablet,Delayed Release (Dr/Ec) 81 mg PO DAILY gabapentin 600 mg Tablet 600 mg PO QHS PRN (Reason: Pain) atorvastatin 20 mg Tablet 20 mg PO QHS lisinopril 2.5 mg Tablet 2.5 mg PO DAILY montelukast [Singulair] 10 mg Tablet 10 mg PO QHS cholecalciferol (vitamin D3) [Vitamin D3] 50 mcg (2,000 unit) Tablet 50 mcg PO DAILY [employer] 160-9-4.8 mcg/actuation Hfa Aerosol Inhaler 2 inh INHALATION BID prednisone 10 mg tablet 10 mg PO QDAY Qty: 30 0RF Rx Instructions: take 4 tabs for three days, then 3 tabs for three days, then 2 tabs for three days, then 1 tab for 3 days doxycycline hyclate 100 mg tablet 100 mg PO BID Qty: 20 0RF albuterol sulfate 90 mcg/actuation HFA aerosol inhaler 2 puff INHALATION Q4H PRN (Reason: Asthma) Qty: 8.5 11RF albuterol sulfate 2.5 mg /3 mL (0.083 %) solution for nebulization 2.5 mg inhalation Q4H PRN (Reason: shortness of breath or wheezing) Qty: 180 11RF Primary Care Provider: Alexey Mayberry Referrals: Bruce Devries MD [Med Staff - Active Staff] - 3-5 Days Alexey Mayberry MD [Primary Care Provider] - Disposition Disposition: Home, Self Care Discharge Date/Time: 09/26/23 13:16
[2023-09-26 11:21] VITALS: O2SAT 93
[2023-09-26 11:26] VITALS: PULSE 97; RESP 19
[2023-09-26] MEDS: Ipratropium/Albuterol Sulfate 3 ML AMPUL.NEB INHALATION (11:26)
--- NOTE | 2023-09-26 11:26 | RAD_ITS ---
INDICATION: dyspnea EXAMINATION/TECHNIQUE: X-RAY - XR Chest 1 View COMPARISON: Prior study dated: 03/19/2023 FINDINGS: LINES/DEVICES: None. LUNGS: Chronic interstitial changes unchanged since prior examination. No new infiltrate is seen. No evidence of pleural effusions. MEDIASTINUM AND CARDIOVASCULAR STRUCTURES: Cardiac silhouette not enlarged. Central airways and mediastinal contour are unremarkable. BONES AND SOFT TISSUES: Old fractures of the left scapula and left upper ribs. RAD/Chest 1 View (Portable) IMPRESSION: 1. No significant change since the previous exam. 2. No new infiltrate seen. Electronically Signed: Ariel Hills MD at 12:08 EST ,
[2023-09-26] MEDS: 0.9% Normal Saline (1000mL) 1,000 ML 150 ML IV (11:29)
[2023-09-26] MEDS: MethylPREDNISolone 125 MG/2 ML Vial IV (11:29)
[2023-09-26 11:33] LABS: Absolute Lymphocyte Count 0.81 X10^3/uL (0.83-4.51); Absolute Neutrophil Count 3.7 X10^3/uL (2.0-7.7); Basophil# 0.03 X10^3/uL; Basophil% 0.6 % (0-1); Eosinophil# 0.27 X10^3/uL; Hematocrit 41.8 % (40-54); Hemoglobin 13.7 g/dL (13.0-16.5); Lymphocyte # 0.81 X10^3/ul (0.83-4.51); Lymphocyte % 15.1 % (19-41); Mean Corp Hgb Conc 32.8 g/dL (32-36); Mean Corpuscular Hgb 29.9 pg (27.0-32.0); Mean Corpuscular Volume 91.3 fL (80-94); Mean Platelet Vol. 9.4 fl (6.2-12.0); Monocyte# 0.51 X10^3/uL; Monocyte% 9.5 % (0-10); NRBC Flagged by Analyzer 0 % (0-5); Neutrophil # 3.72 X10^3/uL (2.7-7.7); Neutrophil % 69.1 % (47-70); Platelet Count 272 K/mm3 (150-450); RBC Distribution Width CV 13.6 % (11.6-14.6); RBC Distribution Width SD 45.7 fl (35.1-43.9); Red Blood Count 4.58 M/mm3 (4.6-6.2); White Blood Count 5.4 K/mm3 (4.4-11.0)
[2023-09-26 11:44] LABS: Anion Gap 7 (5-15); BUN 11 mg/dL (7-18); BUN/Creat Ratio 11.1 RATIO (10-20); Calcium,Total 8.9 mg/dL (8.5-10.1); Chloride 107 mmol/L (98-107); Creatinine, Serum 0.99 mg/dL (0.70-1.30); EST Glomerular Filtration Rate 82 mL/min (>60); Est Glom Filt Rate - Afr Amer 99 mL/min (>60); Estimated Creatinine Clearance 74.85 ml/min; Glucose 155 mg/dL (74-106); Potassium 3.6 mmol/L (3.5-5.1); Sodium Level 139 mmol/L (136-145); Troponin-I HS 8 pg/mL (3.0-78.0)
[2023-09-26 11:49] LABS: D-Dimer Quantitative (DVT/PE) 0.44 FEU/ug/m (0.27-0.49)
--- OUTSIDE RECORDS SUMMARY | 2023-09-26 12:08 | XMS RPT_ITS | CCD ---
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 hospitalizations over the past year. This could certainly contribute to his symptoms. Recommend he continue follow-up with [facility] pulmonology. Plan: Schedule neck/thyroid ultrasound Schedule gastroenterology consultation Continue with acid reflux medication Return to the clinic or seek care at [facility] for any worsening signs or symptoms: such as fevers, chills, worsening pain, nausea, or diarrhea. For severe symptoms seek care at the closest ER. Plan of care, medicaiton side effects and management reviewed with patient. Chew foods and take small bites. Cut food into small pieces Avoid foods such as bread and meats that are triggers Avoid lying down after meals. Avoid eating late at night. Elevate the head of your bed by 6 inches. You can do this by placing wooden blocks or bed risers under the head of your bed. Avoid wearing tight-fitting clothes. Avoid foods that might irritate your stomach, such as the following: -- Alcohol, Fat, Chocolate, Caffeine, Spearmint or peppermint - US THYROID/PARATHYROID - CONSULT TO GASTROENTEROLOGY 2. Bronchiectasis with acute exacerbation (HCC) - ICD9: 494.1, ICD10: J47.1 Plan as above. Kamran Cruz APRN.YONG SOLIS This note was completed with CooCoo dictation software. Note was reviewed for accuracy. There may be minor misspellings or grammar miscues with CooCoo Dictation. I spent a total of 21 minutes on the date of the service which included preparing to see the patient, [id number] patient care, completing clinical documentation, performing a medically appropriate examination, counseling and educating the patient/family/caregiver and ordering medications, tests, or procedures. [place] [id number] documented in this encounter [facility] 12-18-2021 Miscellaneous Notes Noted and agree- if symptoms worsen he should go to the ER. If food gets lodged in throat he should go to the ER. Kamran Cruz APRN.YONG SOLIS Protocol recommends see provider in 24 hours. Scheduled appt with [facility] for tomorrow morning. Patient will not eat the foods that trigger the problem (meat, breads). Patient agreeable to ER if food gets stuck in throat again. Reason for Disposition [1] Swallowing difficulty AND [2] cause unknown (Exception: difficulty swallowing is a chronic symptom) Answer Assessment - Initial Assessment Questions 1. SYMPTOM: No problem swallowing liquids or soft foot. Trouble swallowing meat, bread, burrito shell, soft pretzel bites. Saturday soft pretzel bite got stuck in throat- had to almost vomit to get it back up. Saturday meat got stuck in his throat- had to cough until it came back up. Food gets stuck near his quintana apple. 2. ONSET: This is a new problem, started last week. 3. CAUSE: No idea. Throat is not swollen or painful. Was recently in hospital for COPD- did not have to put tube down his throat at last hosp visit- but they did have to-when in hospital in Nov. Uses inhalers for COPD. Tonsils removed at age 6. When food gets stuck, gets hiccups, lasts about 4-5 min. Hiccups go away when he gets the food unstuck- has to vomit or cough to get it unstuck. Able to swallow everything else normally. Able to swallow his daily pills. 4. CHRONIC/RECURRENT: This is a new problem. Started last week. 5. OTHER SYMPTOMS: No sore throat, no difficulty breathing or cough-except for what he normally has with his COPD, no swollen tongue, no CP. 6. : N/A Protocols used: SWALLOWING [id number] documented in this encounter [facility] 12-15-2021 History of Presen t illness Narrative This note was created using Picurio. Subjective Transitional Care Management Progress Note The patients TCM visit was performed within the 7 days of discharge. Patient's Date of discharge: 12/14/21 Date of initial coordinator contact after discharge: NA Discharge diagnosis: COPD exacerbation. Respiratory failure. Pneumonia, right lung. Medication review completed Yes Provider Documentation: In follow-up of hospitalization, Chio Dent Jr. is a 61 year old male with the chief complaint of transition of care. I have reviewed the patient s last hospital course including diagnostic testing performed during this hospitalization, their discharge medications, and my assessment and plan with the patient and any family members present at today s visit. He was admitted 12/12-12/14 as above. He responded to IV antibiotics, IV steroids, and nebulizer treatments. His hypoxia resolved, and he was again discharged without need for oxygen. He felt back to baseline, and had no new concerns. He was scheduled to follow up with Dr. Bruce Devries. He was finishing prednisone and levofloxacin. [facility]. Review of Systems Constitutional: Negative for chills, diaphoresis, fever and unexpected weight change. HENT: Negative. Eyes: Negative. Respiratory: Positive for cough. Negative for shortness of breath and wheezing. Cardiovascular: Negative for chest pain, palpitations and leg swelling. Gastrointestinal: Negative. Endocrine: Negative. Genitourinary: Negative. Neurological: Negative. Psychiatric/Behavioral: Negative. ACTIVE PROBLEM LIST Hyperlipidemia Asthma Copd (Chronic Obstructive Pulmonary Disease) ([facility]) Tobacco Use Disorder Hypertension Nasal Polyposis Coronary Artery Disease Involving [place] [facility] Without Angina Pectoris Seasonal Allergic Rhinitis Due to Fungal Spores Allergic Rhinitis Due to Dust Mite Seasonal Allergic Rhinitis Due to Pollen Vivi On Cpap Bronchiectasis With Acute Exacerbation ([facility]) Current Outpatient Medications Medication Sig atorvastatin (LIPITOR) 20 mg tablet Take 1 tablet by mouth daily at bedtime. For cholesterol. fluticasone (FLONASE) 50 mcg/actuation nasal spray USE 2 SPRAYS IN EACH NOSTRIL ONCE DAILY. RINSE MOUTH AFTER USE. albuterol HFA (PROAIR HFA) 90 mcg/actuation inhaler Inhale 2 Puffs as instructed every 4 hours as needed. montelukast (SINGULAIR) 10 mg tablet Take 1 tablet by mouth once daily. azelastine (ASTELIN,ASTEPRO) 0.1% nasal spray Use 2 Sprays in each nostril twice daily. cetirizine (ZYRTEC) 10 mg tablet Take 1 tablet by mouth once daily. [facility] medication for allergies. Cholecalciferol, Vitamin D3, 1,000 unit cap Take 2 capsules by mouth once daily. CALCIUM ORAL Take 1,000 Units by mouth once daily. cyanocobalamin (VITAMIN B-12) 1,000 mcg tab Take 1 tablet by mouth once daily. albuterol 2.5 mg /3 mL (0.083 %) INHALATION nebulizer solution Use via nebulizer every 6 hours as needed for Wheezing/Shortness of Breath. Inhale by nebulizer over 5-15 minutes omeprazole (PRILOSEC) 20 mg ORAL capsule 2 tabs once a day Aspirin 81 mg ORAL Tab Take one(1) tablet daily. clopidogrel (PLAVIX) 75 mg ORAL tablet Take one(1) tablet daily at bedtime. gabapentin (NEURONTIN) 600 mg tablet Take 1 tablet by mouth daily at bedtime. [facility] medication. tiotropium-olodaterol (STIOLTO RESPIMAT) 2.5-2.5 mcg/actuation Inhale 2 Puffs as instructed once daily. No current facility-administered medications for this visit. Objective BP 120/72 Pulse 100 Resp 20 Wt 69.9 kg (154 lb) SpO2 94% BMI 23.42 kg/m Physical Exam Constitutional: General: He is not in acute distress. Appearance: He is obese. HENT: Head: Normocephalic. Cardiovascular: Rate and Rhythm: Regular rhythm. Tachycardia present. Heart sounds: No murmur heard. No gallop. Pulmonary: Breath sounds: Examination of the right-lower field reveals rales. Rales present. No wheezing or rhonchi. Abdominal: General: There is no distension. Palpations: Abdomen is soft. Tenderness: There is no abdominal tenderness. Musculoskeletal: General: Normal range of motion. Lymphadenopathy: Cervical: No cervical adenopathy. Neurological: General: No focal deficit present. Mental Status: He is alert. Gait: Gait normal. Discharge summary reviewed. Medications reconciled. Assessment and Plan 1. Chronic obstructive pulmonary disease with acute exacerbation (HCC) - ICD9: 491.21, ICD10: J44.1 (primary diagnosis) - LEVOFLOXACIN 500 MG TABLET - PREDNISONE 20 MG TABLET - STIOLTO RESPIMAT 2.5 MCG-2.5 MCG/ACTUATION SOLUTION FOR INHALATION 2. Pneumonia due to infectious organism, unspecified laterality, unspecified part of lung - ICD9: 486, ICD10: J18.9 - LEVOFLOXACIN 500 MG TABLET - PREDNISONE 20 MG TABLET 3. Coronary artery disease involving venetie ira heart without angina pectoris, unspecified vessel or lesion type - ICD9: 414.01, ICD10: I25.10 Stable. Cancel follow up 12/29 and reschedule to 6 months. Alexey Kamara MD documented in this encounter [facility] documented as of this encounter (statuses as of 12/11/2021) [facility] History of Past illness Narrative* Problem Noted Date Resolved Date Hematuria 09/27/2011 11/09/2015 Lesion of bladder 09/27/2011 11/09/2015 History of NM (myocardial infarction) 06/02/2008 03/21/2017 Erectile dysfunction 11/09/2015 GERD (gastroesophageal reflux disease) 11/09/2015 documented as of this encounter (statuses as of 12/19/2021) [place] [id number] History of Past illness Narrative* Problem Noted Date Resolved Date Hematuria 09/27/2011 11/09/2015 Lesion of bladder 09/27/2011 11/09/2015 History of NM (myocardial infarction) 06/02/2008 03/21/2017 Erectile dysfunction 11/09/2015 GERD (gastroesophageal reflux disease) 11/09/2015 documented as of this encounter (statuses as of 12/20/2021) [facility] History of Past illness Narrative* Problem Noted Date Resolved Date Hematuria 09/27/2011 11/09/2015 Lesion of bladder 09/27/2011 11/09/2015 History of NM (myocardial infarction) 06/02/2008 03/21/2017 Erectile dysfunction 11/09/2015 GERD (gastroesophageal reflux disease) 11/09/2015 documented as of this encounter (statuses as of 12/21/2021) [address]26-2012 History of Past illness Narrative* Problem Noted Date Resolved Date Hematuria 09/27/2011 11/09/2015 Lesion of bladder 09/27/2011 11/09/2015 History of NM (myocardial infarction) 06/02/2008 03/21/2017 Erectile dysfunction 11/09/2015 GERD (gastroesophageal reflux disease) 11/09/2015 documented as of this encounter (statuses as of 12/27/2021) [facility] History of Past illness Narrative* Problem Noted Date Resolved Date Hematuria 09/27/2011 11/09/2015 Lesion of bladder 09/27/2011 11/09/2015 History of NM (myocardial infarction) 06/02/2008 03/21/2017 Erectile dysfunction 11/09/2015 GERD (gastroesophageal reflux disease) 11/09/2015 documented as of this encounter (statuses as of 01/05/2022) [facility] History of Past illness Narrative* Problem Noted Date Resolved Date Hematuria 09/27/2011 11/09/2015 Lesion of bladder 09/27/2011 11/09/2015 History of NM (myocardial infarction) 06/02/2008 03/21/2017 Erectile dysfunction 11/09/2015 GERD (gastroesophageal reflux disease) 11/09/2015 documented as of this encounter (statuses as of 01/08/2022) [facility] History of Past illness Narrative* Problem Noted Date Resolved Date Hematuria 09/27/2011 11/09/2015 Lesion of bladder 09/27/2011 11/09/2015 History of NM (myocardial infarction) 06/02/2008 03/21/2017 Erectile dysfunction 11/09/2015 GERD (gastroesophageal reflux disease) 11/09/2015 documented as of this encounter (statuses as of 01/18/2022) [address]26-2012 History of Past illness Narrative* Problem Noted Date Resolved Date Hematuria 09/27/2011 11/09/2015 Lesion of bladder 09/27/2011 11/09/2015 History of NM (myocardial infarction) 06/02/2008 03/21/2017 Erectile dysfunction 11/09/2015 GERD (gastroesophageal reflux disease) 11/09/2015 documented as of this encounter (statuses as of 01/18/2022) [address]26-2012 History of Past illness Narrative* Problem Noted Date Resolved Date Hematuria 09/27/2011 11/09/2015 Lesion of bladder 09/27/2011 11/09/2015 History of NM (myocardial infarction) 06/02/2008 03/21/2017 Erectile dysfunction 11/09/2015 GERD (gastroesophageal reflux disease) 11/09/2015 documented as of this encounter (statuses as of 02/02/2022) [facility] History of Past illness Narrative* Problem Noted Date Resolved Date Hematuria 09/27/2011 11/09/2015 Lesion of bladder 09/27/2011 11/09/2015 History of NM (myocardial infarction) 06/02/2008 03/21/2017 Erectile dysfunction 11/09/2015 GERD (gastroesophageal reflux disease) 11/09/2015 documented as of this encounter (statuses as of 02/09/2022) [facility] History of Past illness Narrative* Problem Noted Date Resolved Date Hematuria 09/27/2011 11/09/2015 Lesion of bladder 09/27/2011 11/09/2015 History of NM (myocardial infarction) 06/02/2008 03/21/2017 Erectile dysfunction 11/09/2015 GERD (gastroesophageal reflux disease) 11/09/2015 documented as of this encounter (statuses as of 02/09/2022) [facility] History of Past illness Narrative* Problem Noted Date Resolved Date Hematuria 09/27/2011 11/09/2015 Lesion of bladder 09/27/2011 11/09/2015 History of NM (myocardial infarction) 06/02/2008 03/21/2017 Erectile dysfunction 11/09/2015 GERD (gastroesophageal reflux disease) 11/09/2015 documented as of this encounter (statuses as of 02/20/2022) [place] [address]26-2012 History of Past illness Narrative* Problem Noted Date Resolved Date Hematuria 09/27/2011 11/09/2015 Lesion of bladder 09/27/2011 11/09/2015 History of NM (myocardial infarction) 06/02/2008 03/21/2017 Erectile dysfunction 11/09/2015 GERD (gastroesophageal reflux disease) 11/09/2015 documented as of this encounter (statuses as of 06/15/2022) [facility] History of Past illness Narrative* Problem Noted Date Resolved Date Hematuria 09/27/2011 11/09/2015 Lesion of bladder 09/27/2011 11/09/2015 History of NM (myocardial infarction) 06/02/2008 03/21/2017 Erectile dysfunction 11/09/2015 GERD (gastroesophageal reflux disease) 11/09/2015 documented as of this encounter (statuses as of 06/18/2022) [facility] History of Past illness Narrative* Problem Noted Date Resolved Date Hematuria 09/27/2011 11/09/2015 Lesion of bladder 09/27/2011 11/09/2015 History of NM (myocardial infarction) 06/02/2008 03/21/2017 Erectile dysfunction 11/09/2015 GERD (gastroesophageal reflux disease) 11/09/2015 documented as of this encounter (statuses as of 12/17/2022) [facility] + Plan note No data available for this section [facility] Evaluation note* Diagnosis Hyperlipidemia, unspecified documented in this encounter [facility] note* Diagnosis Difficulty swallowing solids- Primary Dysphagia, unspecified Bronchiectasis with acute exacerbation (HCC) Bronchiectasis with acute exacerbation documented in this encounter [facility] note* Diagnosis Chronic obstructive pulmonary disease with acute exacerbation (HCC)- Primary Obstructive chronic bronchitis with exacerbation Pneumonia due to infectious organism, unspecified laterality, unspecified part of lung Coronary artery disease involving venetie ira heart without angina pectoris, unspecified vessel or lesion type documented in this encounter [facility] note* Diagnosis Difficulty swallowing solids Dysphagia, unspecified documented in this encounter [facility] note* Diagnosis Dysphagia, unspecified type- Primary Gastroesophageal reflux disease, unspecified whether esophagitis present documented in this encounter [facility]* Diagnosis Hyperlipidemia, unspecified hyperlipidemia type documented in this encounter [facility] note* Diagnosis Pre-operative examination Preoperative examination, unspecified documented in this encounter [facility] note* Diagnosis Pre-operative examination- Primary Preoperative examination, unspecified Dysphagia, unspecified type Asthma with acute exacerbation, unspecified asthma severity, unspecified whether persistent Chronic obstructive pulmonary disease with acute exacerbation (HCC) Obstructive chronic bronchitis with exacerbation Coronary artery disease involving venetie ira heart without angina pectoris, unspecified vessel or lesion type Hyperlipidemia, unspecified hyperlipidemia type Primary hypertension Unspecified essential hypertension VIVI on CPAP Obstructive sleep apnea (adult) (pediatric) Former smoker Personal history of tobacco use, presenting hazards to health documented in this encounter [facility] note* Diagnosis Primary hypertension- Primary Unspecified essential hypertension Dysphagia, unspecified type Chronic obstructive pulmonary disease with acute exacerbation (HCC) Obstructive chronic bronchitis with exacerbation Allergic rhinitis due to dust mite VIVI on CPAP Obstructive sleep apnea (adult) (pediatric) * Assessment & Plan Note - Heather Dickson APRN.CNP - 06/18/2022 2:07 PM EDT Associated Problem(s): Allergic rhinitis due to dust mite Managed by Mariela CARTWRIGHT. Currently treated with Flonase, Astelin, Zyrtec and Singulair. Symptoms aremanageable. * Assessment & Plan Note - Heather Dickson APRN.CNP - 06/18/2022 2:07 PM EDT Associated Problem(s): Dysphagia He had EGD last month that was normal. Still experiencing dysphagia. Denies any new or worsening symptoms. * Assessment & Plan Note - Heather Dickson APRN.CNP - 06/18/2022 2:06 PM EDT Associated Problem(s): COPD (chronic obstructive pulmonary disease) (HCC) COPD symptoms have improved since the addition of Stiolto, especially cough. Not using inhalers or nebulizer treatments as much either. * Assessment & Plan Note - Heather Dickson APRN.CNP - 06/18/2022 2:05 PM EDT Associated Problem(s): Hypertension Medication changes:No Taking all medications as prescribed: Yes Side effects: No Home BP's: Yes 120's/70's on average Denies: headache, chest pain, palpitations, dyspnea and peripheral edema. Last 3 Encounter BP Readings: Date: BP: 06/18/2022 128/78 01/19/2022 156/138 01/19/2022 100/72 [facility] Impacted cerumen of left ear- Primary Impacted cerumen COPD with exacerbation (HCC) Obstructive chronic bronchitis with exacerbation [facility] No data available for this section [facility] Progress note No data available for this section [facility] Reason for referral (narrative)* Diagnostic Procedure Only (Routine) - Closed Specialty Diagnoses / Procedures Referred By Aiden francis Referred To Contact US IMAGING Diagnoses Difficulty swallowing solids Procedures US THYROID/PARATHYROID US SOFT TISSUE HEAD & NECK REAL TIME IMGE Kamran Leigh APRN.CNP, DNP [address] [place] [address] Us Imaging Referral ID Status Reason Start Date Expiration Date V isits Requested Visits Authorized [id number] Closed Auto-Generate d Referral 12/26/2021 01/18/2023 1 1 [facility] for referral (narrative)* Outpatient Procedure (Routine) - Pending Review Specialty Diagnoses / Procedures Referred By Contgissell francis Referred To Contact [facility] Diagnoses Dysphagia, unspecified type Procedures EGD DIAGNOSTIC ESOPHAGOGASTRODUODENOSC OPY TRANSORAL DIAGNOSTIC Sandeep Castellanos APRN.CNP [address] [place] [address] [facility] [place] [address] [place] [address] Referral ID Status Reason Start Date Expiration Date Visits Requested Visits Authorized [id number] Pending Review Auto-Generat ed Referral 01/05/2022 01/05/2023 1 [facility] Diagnostic Procedure Only (Routine) - Closed Specialty Diagnoses / Procedures Referred By Aiden francis Referred To Contact US IMAGING Diagnoses Difficulty swallowing solids Procedures US THYROID/PARATHYROID US SOFT TISSUE HEAD & NECK REAL TIME IMGE Kamran Leigh APRN.CNP, YONG [address] [place] [address] Us Imaging Referral ID Status Reason Start Date Expiration Date V isits Requested Visits Authorized [id number] Closed Auto-Generate d Referral 12/26/2021 01/18/2023 1 1 [facility] Summary Purpose Family History No Family History Records FoundNo Family History Records FoundNo Family History Records FoundNo Family History Records Found No data available for this section No Family History Records Found Advance Directives No Advanced Directives Records FoundDocuments on File Type Date Recorded Patient Care Specialist Expl anation Advance Directive(s) 01/08/2022 4:42 PM Reason for Referral Specialty Diagnoses / Procedures Referred By Aiden francis Referred To Contact Gastroenterology Diagnoses Difficulty swallowing solids Procedures CONSULT TO GASTROENTEROLOGY OFFICE/OUTPATIENT [facility] 60-74 MINUTES Kamran Cruz APRN.CNP, DNP [address] [place] [address] Referral ID Status Reason Start Date Expiration Date Visits Requested Visits Authorized [id number] Pending Review PCP Requested Referral 01/02/2022 12/19/2022 1 1 Specialty Diagnoses / Procedures Referred By Aiden t Referred To Contact US IMAGING Diagnoses Difficulty swallowing solids Procedures US THYROID/PARATHYROID US SOFT TISSUE HEAD & NECK REAL TIME IMGE Kamran Leigh APRN.CUSTOMER DEVELOPMENT MANAGER, DNP [address] [place] [address] Us Imaging Referral ID Status Reason Start Date Expiration Date Visits Requested Visits Authorized [id number] Authorized Auto-Generat ed Referral 12/26/2021 01/18/2023 1 1 Additional Source Comments (unrecognized sect ion and content) No Status Records FoundNo Status Records FoundNo Status Records FoundNo Status Records FoundNo Status Records Found INFORMATION SOURCE (unrecogn ized section and content) DATE CREATED AUTHOR AUTHOR'S ORGANIZ ATION 01/21/2022 [facility] DATE CREATED AUTHOR AUTHOR'S ORGANIZ ATION 07/02/2022 [facility] DATE CREATED AUTHOR AUTHOR'S ORGANIZ ATION 12/18/2022 [facility] DATE CREATED AUTHOR AUTHOR'S ORGANIZ ATION 06/30/2023 [facility] ([place]) Source Comments (unrecognize d section and content) In the event this informatio n is protected by the Federal Confidentiality of Alcohol and Drug Abuse Patient Records regulations: The Federal rules restrict any use of the information to criminally investigate or prosecute any alcohol or drug abuse patient.[facility] the event this information is protected by the Federal Confidentiality of Alcohol and Drug Abuse Patient Records regulations: The Federal rules restrict any use of the information to criminally investigate or prosecute any alcohol or drug abuse patient.[facility] the event this information is protected by the Federal Confidentiality of Alcohol and Drug Abuse Patient Records regulations: The Federal rules restrict any use of the information to criminally investigate or prosecute any alcohol or drug abuse patient.[facility] the event this information is protected by the Federal Confidentiality of Alcohol and Drug Abuse Patient Records regulations: The Federal rules restrict any use of the information to criminally investigate or prosecute any alcohol or drug abuse patient.[facility] the event this information is protected by the Federal Confidentiality of Alcohol and Drug Abuse Patient Records regulations: The Federal rules restrict any use of the information to criminally investigate or prosecute any alcohol or drug abuse patient.[facility] HospitalIn the event this information is protected by the Federal Confidentiality of Alcohol and Drug Abuse Patient Records regulations: The Federal rules restrict any use of the information to criminally investigate or prosecute any alcohol or drug abuse patient.[facility] Hospital[facility] the event this information is protected by the Federal Confidentiality of Alcohol and Drug Abuse Patient Records regulations: The Federal rules restrict any use of the information to criminally investigate or prosecute any alcohol or drug abuse patient.[facility] Hospital[facility] the event this information is protected by the Federal Confidentiality of Alcohol and Drug Abuse Patient Records regulations: The Federal rules restrict any use of the information to criminally investigate or prosecute any alcohol or drug abuse patient.[facility] HospitalIn the event this information is protected by the Federal Confidentiality of Alcohol and Drug Abuse Patient Records regulations: The Federal rules restrict any use of the information to criminally investigate or prosecute any alcohol or drug abuse patient.[facility] HospitalIn the event this information is protected by the Federal Confidentiality of Alcohol and Drug Abuse Patient Records regulations: The Federal rules restrict any use of the information to criminally investigate or prosecute any alcohol or drug abuse patient.[facility] HospitalIn the event this information is protected by the Federal Confidentiality of Alcohol and Drug Abuse Patient Records regulations: The Federal rules restrict any use of the information to criminally investigate or prosecute any alcohol or drug abuse patient.[facility] HospitalIn the event this information is protected by the Federal Confidentiality of Alcohol and Drug Abuse Patient Records regulations: The Federal rules restrict any use of the information to criminally investigate or prosecute any alcohol or drug abuse patient.[facility] HospitalIn the event this information is protected by the Federal Confidentiality of Alcohol and Drug Abuse Patient Records regulations: The Federal rules restrict any use of the information to criminally investigate or prosecute any alcohol or drug abuse patient.[facility] HospitalIn the event this information is protected by the Federal Confidentiality of Alcohol and Drug Abuse Patient Records regulations: The Federal rules restrict any use of the information to criminally investigate or prosecute any alcohol or drug abuse patient.[facility] HospitalIn the event this information is protected by the Federal Confidentiality of Alcohol and Drug Abuse Patient Records regulations: The Federal rules restrict any use of the information to criminally investigate or prosecute any alcohol or drug abuse patient.[facility] HospitalIn the event this information is protected by the Federal Confidentiality of Alcohol and Drug Abuse Patient Records regulations: The Federal rules restrict any use of the information to criminally investigate or prosecute any alcohol or drug abuse patient.[facility] Reason for Visit (unrecogniz ed section and content) Reason Comments Difficulty Swallowing X 1 month Reason Comments Hospital Follow Up [facility] D[facility] 12/14/21, DX: Pneumonia, COPD Reason Comments New Patient Difficulty swallowin g Specialty Diagnoses / Procedures Referred By Contact Referred To Contact Gastroenterology / ORTHOPAEDIC SURGERY Diagnoses Difficulty swallowing solids Procedures CONSULT TO GASTROENTEROLOGY OFFICE/OUTPATIENT NEW HIGH MDM 60-74 MINUTES Kamran Cruz, LEOBARDO.CUSTOMER DEVELOPMENT MANAGER, DNP [address] [place] [address] [address] [place] [address] Referral ID Status Reason Start Date Expiration Date V isits Requested Visits Authorized [id number] Closed PCP Requested Referral 01/02/2022 12/19/2022 1 1 Reason Comments Consult Reason Onset Date Comments Refill Request 02/01/2022 Reason Comments Difficulty Swallowing Reason Comments Derm Problem Reason Comments F/U 6 months Reason Comments Ear Problem left ear feels clogg ed x 2 days Care Teams (unrecognized sec tion and content) Log Roller Relationship Specialty Start Date End Date Alexey Kamara MD [address] [place] [address] PCP - General Internal Medicine 11/07/15 Log Roller Relationship Specialty Start Date End Date Alexey Kamara MD [address] [place] [address] PCP - General Internal Medicine 11/07/15 Log Roller Relationship Specialty Start Date End Date Alexey Kamara MD [facility] [place] [address] PCP - General Internal Medicine 11/07/15 Log Roller Relationship Specialty Start Date End Date Alexey Kamara MD [address] [place] [address] [place] [address] PCP - General Internal Medicine 11/07/15 Log Roller Relationship Specialty Start Date End Date Alexey Kamara MD [facility] [place] [address] PCP - General Internal Medicine 11/07/15 Log Roller Relationship Specialty Start Date End Date Alexey Kamara MD [facility] [place] [address] PCP - General Internal Medicine 11/07/15 Log Roller Relationship Specialty Start Date End Date Alexey Kamara MD [facility] [place] [address] PCP - General Internal Medicine 11/07/15 Log Roller Relationship Specialty Start Date End Date Alexey Kamara MD [facility] [place] [address] PCP - General Internal Medicine 11/07/15 Log Roller Relationship Specialty Start Date End Date Alexey Kamara MD [address] [facility] [place] [address] PCP - General Internal Medicine 11/07/15 Log Roller Relationship Specialty Start Date End Date Alexey Kamara MD [address] [facility] [place] [address] PCP - General Internal Medicine 11/07/15 Log Roller Relationship Specialty Start Date End Date Alexey Kamara MD [address] [facility] [place] [address] PCP - General Internal Medicine 11/07/15 Log Roller Relationship Specialty Start Date End Date Alexey Kamara MD [address] [facility] [place] [address] PCP - General Internal Medicine 11/07/15 Log Roller Relationship Specialty Start Date End Date Alexey Kamara MD [address] [facility] [place] [address] PCP - General Internal Medicine 11/07/15 FOR RECORDS PERTAINING TO PATIENTS WHO ARE OR HAVE BEEN ENROLLED IN A CHEMICAL DEPENDENCY/SUBSTANCEABUSE PROGRAM, SOME INFORMATION MAY BE OMITTED. This clinical summary was aggregated from multiple sources. Caution should be exercised in using it in the provision of clinical care. This summary normalizes information from multiple sources, and as a consequence, information in this document may materially change the coding, format and clinical context of patient data. In addition, data may be omitted in some cases. CLINICAL DECISIONS SHOULD BE BASED ON THE PRIMARY CLINICAL RECORDS. [employer] provides no warranty or guarantee of the accuracy or completeness of information in this document.
[2023-09-26 12:31] VITALS: BP 104/84; PULSE 90; RESP 24; O2SAT 93
[2023-09-26] MEDS: Doxycycline 100 MG CAPSULE PO (13:08)
== END 2023-09-26 13:16 | disposition home or self-care (01) ==
PROVIDERS: Emergency Provider Emergency Medicine; PCP Internal Medicine; Visit Provider Emergency Medicine
DX: J44.1 Chronic obstructive pulmonary disease with (acute) exacerbation (principal); F17.210 Nicotine dependence, cigarettes, uncomplicated; Z82.49 Family history of ischemic heart disease and other diseases of the circulatory system; I25.2 Old myocardial infarction; I10 Essential (primary) hypertension; E78.5 Hyperlipidemia, unspecified; K21.9 Gastro-esophageal reflux disease without esophagitis; I25.10 Atherosclerotic heart disease of native coronary artery without angina pectoris
CPT/HCPCS: 71045; 80048; 84484; 85025; 85379; 87040; 87631; 93005; 94640; 96361; 96374; 99284; J7030; A4216

== ENCOUNTER → 2023-10-03 | Outpatient (CLI) | payer MEDICARE, MEDICAID, SELFPAY ==
[2023-10-03 12:40] LABS: Absolute Lymphocyte Count 1.49 X10^3/uL (0.83-4.51); Absolute Neutrophil Count 9.1 X10^3/uL (2.0-7.7); Basophil# 0.04 X10^3/uL; Basophil% 0.3 % (0-1); Eosinophil# 0.42 X10^3/uL; Eosinophils% 3.2 % (0-5); Hemoglobin 14.8 g/dL (13.0-16.5); Lymphocyte # 1.49 X10^3/ul (0.83-4.51); Lymphocyte % 11.5 % (19-41); Mean Corp Hgb Conc 32.9 g/dL (32-36); Mean Corpuscular Hgb 30.1 pg (27.0-32.0); Mean Corpuscular Volume 91.6 fL (80-94); Mean Platelet Vol. 9.1 fl (6.2-12.0); Monocyte# 1.41 X10^3/uL; Monocyte% 10.9 % (0-10); NRBC Flagged by Analyzer 0 % (0-5); Neutrophil # 9.14 X10^3/uL (2.7-7.7); Neutrophil % 70.6 % (47-70); POSITIVE MORPHOLOGY YES; Platelet Count 347 K/mm3 (150-450); RBC Distribution Width CV 13.7 % (11.6-14.6); RBC Distribution Width SD 46.4 fl (35.1-43.9); Red Blood Count 4.91 M/mm3 (4.6-6.2)
[2023-10-03 12:49] LABS: Differential Indicated SCAN CRITERIA MET
[2023-10-03 13:11] LABS: Anion Gap 2 (5-15); BUN 16 mg/dL (7-18); BUN/Creat Ratio 17.2 RATIO (10-20); Calcium,Total 8.5 mg/dL (8.5-10.1); Chloride 102 mmol/L (98-107); Creatinine, Serum 0.93 mg/dL (0.70-1.30); EST Glomerular Filtration Rate 88 mL/min (>60); Est Glom Filt Rate - Afr Amer 106 mL/min (>60); Glucose 102 mg/dL (74-106); Sodium Level 134 mmol/L (136-145)
[2023-10-03 13:12] LABS: Differential Comment SCANNED
== END | disposition home or self-care (01) ==
LOC: PSN 11:54
PROVIDERS: PCP Internal Medicine; Referring Provider Physician Assistant; Visit Provider Physician Assistant
DX: Z01.810 Encounter for preprocedural cardiovascular examination (principal); Z01.818 Encounter for other preprocedural examination
CPT/HCPCS: 36415; 80048; 85025; 93005

== ENCOUNTER → 2024-01-02 | Outpatient (CLI) | payer MEDICARE, MEDICAID, SELFPAY ==
--- NOTE | 2024-01-02 16:40 | CT_ITS ---
STUDY: LOW DOSE CT LUNG CANCER SCREENING REASON FOR EXAM: Male, 63 years old. Smoking. Patient smoked 2 packs per day for 48 years. RADIATION DOSAGE (If Supplied By Facility): CTDIvol = ( 3.02 ) mGy, DLP = ( 115.51 ) mGycm TECHNIQUE: No contrast was administered. Low dose technique was utilized (average mAS-38 and kVp 120). 1.25 mm axial source images with a slice interval of 1.25-mm were reconstructed in lung windows. 2.5 mm axial source images with a slice interval of 2.5-mm were reconstructed in lung windows. 5.0 mm axial source images with a slice interval of 5.0-mm were reconstructed in soft tissue windows. COMPARISON: Comparison is made with prior study dated November 09, 2022. NODULES: No suspicious nodules are seen. Emphysema: Hyperinflation. Emphysematous changes with centrilobular changes more prominent in the upper lobes of both lungs. Stable linear scarring in the anterior medial aspect of the left upper lobe. Endobronchial lesion: None Aorta: Atherosclerotic plaque formation of the aortic arch. CORONARY ARTERIES: Coronary artery calcification is seen. Heart: Unremarkable Pulmonary artery: Unremarkable Mediastinal nodes: Small mediastinal lymph nodes. Other chest and abdominal findings: CT/Low Dose CT Lung Screening IMPRESSION: Lung-RADS category 2 - Continue annual screening with LDCT in 12 months. IMPORTANT NOTES FOR USE: ACR Lung-RADS Version 1.1 Assessment Categories Release Date: 2018 Category: Coded 0-4 bases on nodule(s) with highest degree of suspicion. Negative screen is defined as categories 1 and 2; a positive screen is defined as categories 3 and 4. Category 3 and 4A nodules that are unchanged on interval CT should be coded as category 2, and individuals returned to screening in 12 months. Category 4X: Category 3 or 4 nodules with additional imaging findings that increase the suspicion of lung cancer, such as spiculation, GGN that doubles in size in 1 year, enlarged lymph notes, etc. Category Modifiers: S (significant finding unrelated to lung cancer) Electronically Signed: Gerardo Ruby MD at 13:38 EDT ,
== END | disposition home or self-care (01) ==
LOC: CT 16:40
PROVIDERS: PCP Internal Medicine; Referring Provider Nurse Practitioner Acute Care; Visit Provider Nurse Practitioner Acute Care
DX: F17.210 Nicotine dependence, cigarettes, uncomplicated (principal)
CPT/HCPCS: 71271

== ENCOUNTER 2024-01-04 19:49 | Emergency (ER) | payer MEDICARE, MEDICAID, SELFPAY ==
[2024-01-04 19:50] VITALS: BP 106/80; PULSE 96; RESP 16; TEMP 36.2; O2SAT 94; BMI 23.6
[2024-01-04 20:09] VITALS: BP 108/73; PULSE 93; RESP 16; TEMP 36.4; O2SAT 94
[2024-01-04 20:19] VITALS: PULSE 91; RESP 18
[2024-01-04] MEDS: Ipratropium/Albuterol Sulfate 3 ML AMPUL.NEB INHALATION (20:19)
--- NOTE | 2024-01-04 20:20 | ED.VIS.DYS ---
HPI History of Present Illness Chief Complaint: Shortness of Breath Detail of Chief Complaint: Shortness of breath, productive cough and wheezing Informant: patient Onset/Context/Timing Onset: Weeks (1.5 to 2 weeks) Context: gradual Timing: Continuous and Waxes and wanes Quality: Positive for Dyspnea on exertion and Wheezing; Negative for Orthopnea or PND Current Severity: Mild Maximum Severity: Severe Worsened by: Exertion and Coughing Relieved by: Nothing Associated Symptoms cough, rhinorrhea and yellow sputum; Negative for post nasal drip, ear pain, fever, sore throat, subjective, chills or sweats Chest Pain: Positive for None Narrative Narrative: Patient is 61-year-old male. He has history of GERD, coronary disease with stent placement, paroxysmal ventricular tachycardia, hyperlipidemia, tobacco use (decreased to quarter pack a day) and COPD. He was placed on prednisone. He was not given a prescription of for antibiotic at that time. He presents because of increased sputum production and change in color of sputum production. He also complains of wheezing and dyspnea with exertion. He denies chest tightness pressure heaviness. He denies pleuritic pain. He does have a prior history of PE on the left. He denies hemoptysis or pleuritic pain. Patient denies fever, chills night periods. Patient denies headache, visual, ocular auditory symptoms. Patient does endorse rhinorrhea. He does have allergic rhinitis on Flonase. Abdomen is benign. Patient denies nausea, vomiting or diarrhea. PE Risk Factors: Positive for Prior DVT or PE; Negative for Cancer, OCP + Smoking + > 35, Recent immobilization, Recent surgery or Recent travel Prior similar symptoms: Yes (COPD) Recent Illness/Hospitalization: No PFSH [facility] Medical History Arthritis Asthma Asthma-COPD overlap syndrome Atherosclerotic heart disease of [place] coronary artery without angina pectoris Back pain BPH (benign prostatic hyperplasia) Bronchiectasis CAD (coronary artery disease) Cardiology follow-up encounter COPD (chronic obstructive pulmonary disease) COPD exacerbation Dyspepsia and disorder of function of stomach Dysphagia Emphysema, unspecified Gastric reflux GERD (gastroesophageal reflux disease) High cholesterol History of echocardiogram History of heart attack History of hiatal hernia History of pain when walking History of pulmonary embolism History of steroid therapy History of stress test History of ulceration HLD (hyperlipidemia) Hypersomnia Hypertension Ischemic cardiomyopathy Nicotine abuse Old myocardial infarction Paroxysmal atrial tachycardia Paroxysmal ventricular tachycardia Premature ventricular contraction Presence of stent in coronary artery (~06/27/08) Septic shock Shortness of breath on exertion Sleep apnea Smoker Smoking greater than 40 pack years Stage 2 moderate COPD by GOLD classification Wears dentures Wears glasses Wheezing on auscultation Home Medications clopidogrel 75 mg tablet 75 mg PO QHS blood thinner 06/16/13 [History Last Taken 11/27/22] cyanocobalamin (vitamin B-12) 1,000 mcg tablet 1,000 mcg PO DAILY vitamin 10/15/17 [History Last Taken 12/11/21] aspirin 81 mg tablet,delayed release 81 mg PO DAILY HEALTH MAINTENTANCE 12/12/21 [History Last Taken 11/26/22] atorvastatin 20 mg tablet 20 mg PO QHS CHOLESTEROL 12/12/21 [History Last Taken Unknown] cholecalciferol (vitamin D3) 50 mcg (2,000 unit) tablet (Vitamin D3) 50 mcg PO DAILY SUPPLEMENT 12/12/21 [History Last Taken Unknown] gabapentin 600 mg tablet 600 mg PO QHS PRN Pain 12/12/21 [History Last Taken Unknown] lisinopril 2.5 mg tablet 2.5 mg PO DAILY BLOOD PRESSURE 12/12/21 [History Last Taken 11/29/22] montelukast 10 mg tablet (Singulair) 10 mg PO QHS BREATHING 12/12/21 [History Last Taken Unknown] PEP device 01/30/22 [History Last Taken Unknown] budesonide 160 mcg-glycopyr 9 mcg-formot 4.8 mcg/actuation HFA inhaler (ZS Geneticsztri Aerosphere) 2 inh inhalation BID 11/28/22 [History Last Taken Unknown] omeprazole 20 mg capsule,delayed release 40 mg (2 x 20 mg) PO BID #120 caps 12/20/22 [Rx Last Taken Unknown] albuterol sulfate 2.5 mg/3 mL (0.083 %) solution for nebulization 2.5 mg (3 mL) inhalation Q4H PRN shortness of breath or wheezing #180 mL 09/26/23 [Rx Last Taken Unknown] albuterol sulfate 90 mcg/actuation aerosol inhaler 2 puff inhalation Q4H PRN Asthma #8.5 grams 09/26/23 [Rx Last Taken Unknown] fluticasone propionate 50 mcg/actuation nasal spray,suspension (Flonase Allergy Relief) 2 spray intranasal DAILY #16 grams 09/26/23 [Rx Last Taken Unknown] guaifenesin 1,200 mg tablet, extended release 12 hr 1,200 mg PO Q12H #60 tabs 11/18/23 [Rx Last Taken Unknown] prednisone 10 mg tablet 10 mg PO QDAY #30 tabs 12/17/23 [Rx Last Taken Unknown] fexofenadine 180 mg tablet (Harriet Allergy) 180 mg PO DAILY #90 tabs 01/02/24 [Rx Last Taken Unknown] doxycycline monohydrate 100 mg capsule 100 mg PO BID #14 CAPSULES 01/04/24 [Rx Last Taken Unknown] prednisone 10 mg tablet 10 mg PO UD #33 tabs 01/04/24 [Rx Last Taken Unknown] Allergy/AdvReac Type Severity Reaction Status Date / Time latex Allergy Rash Verified 01/04/24 19:54 varenicline tartrate Allergy Hives Verified 01/04/24 19:54 [From Chantix] aspirin AdvReac Upset Verified 01/04/24 19:54 Stomach Family History Father , age 50 CAD (coronary artery disease) Heart disease Myocardial infarction Mother Diabetes Brother Hypertension Surgical History History of cardiac catheterization History of coronary artery stent placement History of hernia repair History of thumb surgery Hx of angioplasty Hx of cystoscopy Hx of nasal sinusotomy Hx of right knee surgery Hx of shoulder surgery Hx of sinus surgery Hx of tonsillectomy Presence of coronary angioplasty implant and graft (~06/27/08) Social History household members: significant other and children Smoking Status: Current every day smoker tobacco type: cigarettes and smokeless tobacco alcohol intake: never substance use type: does not use caffeine: Yes Type: coffee Number of servings: 3 what type of physical activity do you participate in: walking frequency: daily duration: 45-60 minutes/day seatbelt use: always do you feel safe at home: Yes ROS ROS ED Constitutional Constitutional ED: Reports sweats; Denies chills, fever(s) or weight loss Eyes Eyes: Denies blurry vision or change in vision ENT ENT ED: Reports rhinorrhea; Denies ear pain or sore throat Cardiovascular Cardiovascular: Denies chest pain, orthopnea, palpitations, paroxysmal nocturnal dyspnea or racing heartbeat Respiratory/Chest Respiratory/Chest: Reports cough, dyspnea, dyspnea on exertion and sputum; Denies orthopnea or paroxysmal nocturnal dyspnea Gastrointestinal Gastrointestinal: Denies abdominal pain, diarrhea, nausea or vomiting Genitourinary Genitourinary ED: Denies dysuria or hematuria Musculoskeletal Musculoskeletal: Denies arthralgias or myalgias Integumentary Denies rash Neurologic Neurologic: Denies headache(s) or weakness Psychiatric Psychiatric: Denies anxiety Hematologic/Lymphatic Hematologic/Lymphatic: Denies easy bleeding or easy bruising EXAM Physical Exam Const Vital Signs: 01/04/24 19:50 01/04/24 20:09 01/04/24 20:19 Temperature 97.2 F L 97.6 F L Temperature Source Temporal Temporal Pulse Rate 96 93 91 Respiratory Rate 16 16 18 Respiratory Pattern Normal Blood Pressure 106/80 108/73 Blood Pressure Mean 88 84 Pulse Ox 94 94 Oxygen Delivery Method Room Air 01/04/24 21:00 Temperature 97.6 F L Temperature Source Temporal Pulse Rate 91 Respiratory Rate 18 Respiratory Pattern Blood Pressure 108/73 Blood Pressure Mean 84 Pulse Ox 94 Oxygen Delivery Method Positive well nourished and well developed General Appearance ED: well developed; Negative for NAD or pallor HEENT Reports moist mucous membranes HEENT Narrative: Head is atraumatic and normocephalic. Ears normal. Nares patent with clear drainage. Nasal mucosa is zeng. Posterior pharynx is normal. Uvula is midline. Eyes PERRL and EOMs intact bilaterally General Eye ED: Negative for pale conjunctiva or scleral icterus Neck no lymphadenopathy, supple, no meningeal signs and no JVD Neck Narrative: Trachea is midline. There is no stridor. Resp No normal respiratory effort and No clear to auscultation bilaterally Auscultation: wheezes expiratory wheezes and throughout and diminished lung sounds Cardio regular rate, regular rhythm, S1 normal heart sound, S2 normal heart sound and no murmurs GI non-tender, non-distended and no masses Auscultation: normoactive bowel sounds Palpation: soft Back/Spine no CVA tenderness Extremity Extremity Narrative: There is no asymmetry, swelling, discoloration, leg vein distention, palpable cords or tenderness along the distribution of the deep venous system. Neuro oriented x3 [place] Coma Scale: document GCS findings Spontaneous Obeys Commands Oriented 15 Sensorium / Orientation: alert Psych mental status grossly normal Skin no wounds and skin turgor normal General Skin Exam: Negative for jaundice or pallor MDM MDM MDM Narrative Medical decision making narrative: Differential diagnosis is exacerbation of COPD, exacerbation chronic bronchitis, pneumonia. Patient's history is not consistent with PE. There is no concern for cardiac disease. Records from Debbi Xavier from pulmonology was reviewed. Patient had numerous ER visits for COPD. History & Record Review Additional record(s) reviewed:: Prior outpatient record, Prior ED visit and Prior labs Lab Data Attestation: I reviewed the patient's lab results. Lab results narrative: White count is normal. H&H indices normal. There is a slight shift with 72% segs. Labs: Laboratory Results - last 24 hr 01/04/24 20:20 WBC 10.1 RBC 4.55 L Hgb 13.7 Hct 41.8 MCV 91.9 MCH 30.1 MCHC 32.8 RDW Std Deviation 43.1 RDW Coeff of [place] 12.8 Plt Count 326 MPV 8.9 Immature Gran % (Auto) 0.700 Neut % (Auto) 71.8 H Lymph % (Auto) 14.5 L [place] % (Auto) 8.2 Eos % (Auto) 4.4 Baso % (Auto) 0.4 Absolute Neuts (auto) 7.2 Absolute Lymphs (auto) 1.46 Nucleated RBC % 0 Radiography Chest X-Ray - ED: 2 View and Read by ED Physician (Chronic lung changes. There is no effusion or infiltrate. Cardiac silhouette size normal. [place] is normal. Osseous trucks unremarkable. This is a 20 reviewed interpreted by mn [id number]) Diagnostic Testing: Clinical Impression(s) from Imaging Studies Chest X-Ray 01/04/24 20:57 IMPRESSION: Hyperinflated lungs without focal airspace disease perhaps secondary to reactive airways disease/COPD. Electronically Signed: Berto Martínez DO at 21:20 EDT , Treatment and Re-Evaluation :: Patient was reassessed. He is no longer tachypneic. He is moving much more air. He still has wheezing. Will prescribe tapering dose of prednisone and doxycycline. He will be discharged to home. Discharge Plan Triage Chief Complaint: Shortness of Breath ED Provider: Alvaro Muñiz Dx/Rx/DC Orders Clinical Impression: HLD (hyperlipidemia), Atherosclerotic heart disease of [place] coronary artery without angina pectoris, Acute bronchospasm, Tobacco use, Acute exacerbation of chronic bronchitis, Acute exacerbation of chronic obstructive pulmonary disease, GERD (gastroesophageal reflux disease) Instructions: ED COPD Flare Prescriptions: New prednisone 10 mg tablet 10 mg PO UD Qty: 33 0RF Rx Instructions: Take 4 tablets daily for 3 days, then 3 daily for 3 days, then 2 daily for 3 days, then 1 a day for 3 days then 1 QOD for 3 doses. doxycycline monohydrate 100 mg capsule 100 mg PO BID Qty: 14 0RF No Action cyanocobalamin (vitamin B-12) 1,000 mcg tablet 1,000 mcg PO DAILY (DME) PEP device See Rx Instructions .ROUTE .MEDSUPPLY Rx Instructions: with training omeprazole 20 mg capsule,delayed release(DR/EC) 40 mg PO BID Qty: 120 1RF fexofenadine [Harriet Allergy] 180 mg tablet 180 mg PO DAILY Qty: 90 0RF clopidogrel 75 MG tablet 75 mg PO QHS Patient Comments: BLOOD THINNER aspirin 81 mg Tablet,Delayed Release (Dr/Ec) 81 mg PO DAILY gabapentin 600 mg Tablet 600 mg PO QHS PRN (Reason: Pain) atorvastatin 20 mg Tablet 20 mg PO QHS lisinopril 2.5 mg Tablet 2.5 mg PO DAILY montelukast [Singulair] 10 mg Tablet 10 mg PO QHS cholecalciferol (vitamin D3) [Vitamin D3] 50 mcg (2,000 unit) Tablet 50 mcg PO DAILY Breztri Aerosphere 160-9-4.8 mcg/actuation Hfa Aerosol Inhaler 2 inh INHALATION BID fluticasone propionate [Flonase Allergy Relief] 50 mcg/actuation spray,suspension 2 spray intranasal DAILY Qty: 16 0RF Rx Instructions: administer into each nostril albuterol sulfate 90 mcg/actuation HFA aerosol inhaler 2 puff INHALATION Q4H PRN (Reason: Asthma) Qty: 8.5 11RF albuterol sulfate 2.5 mg /3 mL (0.083 %) solution for nebulization 2.5 mg inhalation Q4H PRN (Reason: shortness of breath or wheezing) Qty: 180 11RF guaifenesin 1,200 mg tablet extended release 12hr 1,200 mg PO Q12H Qty: 60 6RF prednisone 10 mg tablet 10 mg PO QDAY Qty: 30 0RF Rx Instructions: take 4 tabs for three days, then 3 tabs for three days, then 2 tabs for three days, then 1 tab for 3 days Primary Care Provider: Alexey Mayberry Referrals: Alexey Mayberry MD [Primary Care Provider] - 3-5 Days if not improving Disposition Disposition: Home, Self Care
[2024-01-04] MEDS: Albuterol 2.5 MG/3 ML VIAL.NEB. INHALATION ×3 (20:29→20:56)
[2024-01-04 20:30] LABS: Absolute Lymphocyte Count 1.46 X10^3/uL (0.83-4.51); Absolute Neutrophil Count 7.2 X10^3/uL (2.0-7.7); Basophil# 0.04 X10^3/uL; Basophil% 0.4 % (0-1); Eosinophil# 0.44 X10^3/uL; Eosinophils% 4.4 % (0-5); Hematocrit 41.8 % (40-54); Hemoglobin 13.7 g/dL (13.0-16.5); Lymphocyte # 1.46 X10^3/ul (0.83-4.51); Lymphocyte % 14.5 % (19-41); Mean Corp Hgb Conc 32.8 g/dL (32-36); Mean Corpuscular Hgb 30.1 pg (27.0-32.0); Mean Corpuscular Volume 91.9 fL (80-94); Mean Platelet Vol. 8.9 fl (6.2-12.0); Monocyte# 0.83 X10^3/uL; Monocyte% 8.2 % (0-10); NRBC Flagged by Analyzer 0 % (0-5); Neutrophil # 7.24 X10^3/uL (2.7-7.7); Neutrophil % 71.8 % (47-70); Platelet Count 326 K/mm3 (150-450); RBC Distribution Width CV 12.8 % (11.6-14.6); RBC Distribution Width SD 43.1 fl (35.1-43.9); Red Blood Count 4.55 M/mm3 (4.6-6.2); White Blood Count 10.1 K/mm3 (4.4-11.0)
[2024-01-04] MEDS: predniSONE 20 MG Tablet 60 MG PO (20:44)
--- NOTE | 2024-01-04 20:57 | RAD_ITS ---
EXAM: XR CHEST, 2 VIEWS CLINICAL INDICATION: Productive cough, wheezing, dyspnea TECHNIQUE: Frontal and lateral views of the chest. COMPARISON: No relevant prior studies available. FINDINGS: LUNGS AND PLEURAL SPACES: Hyperinflated lungs without focal airspace disease perhaps secondary to reactive airways disease/COPD. No pneumothorax. No effusion. HEART: No significant abnormality. Cardiac silhouette not enlarged. MEDIASTINUM: Central airways and mediastinal contour are unremarkable. BONES/JOINTS: Possible chronic deformity of the left scapular angle. Multilevel degenerative changes in the spine. Multiple chronic left-sided rib fractures. Chronic left clavicle fracture. SOFT TISSUES: No significant abnormality. RAD/Chest PA and Lateral IMPRESSION: Hyperinflated lungs without focal airspace disease perhaps secondary to reactive airways disease/COPD. Electronically Signed: Berto Martínez DO at 21:20 EDT ,
--- NOTE | 2024-01-04 20:59 | CPS ---
x3 Albuterol given to pt. in ER as well
[2024-01-04 21:00] VITALS: BP 108/73; PULSE 91; RESP 18; TEMP 36.4; O2SAT 94
[2024-01-04] MEDS: Doxycycline 100 MG CAPSULE PO (21:33)
[2024-01-04 21:37] VITALS: BP 117/79; PULSE 83; RESP 22; TEMP 36.6; O2SAT 94
== END 2024-01-04 21:39 | disposition home or self-care (01) ==
PROVIDERS: Emergency Provider Emergency Medicine; PCP Internal Medicine; Visit Provider Emergency Medicine
DX: J98.01 Acute bronchospasm (principal); J44.9 Chronic obstructive pulmonary disease, unspecified; I25.10 Atherosclerotic heart disease of native coronary artery without angina pectoris; K21.9 Gastro-esophageal reflux disease without esophagitis; Z95.5 Presence of coronary angioplasty implant and graft; E78.00 Pure hypercholesterolemia, unspecified; I10 Essential (primary) hypertension; I25.2 Old myocardial infarction; Z79.82 Long term (current) use of aspirin; Z79.899 Other long term (current) drug therapy; Z79.51 Long term (current) use of inhaled steroids; Z95.820 Peripheral vascular angioplasty status with implants and grafts
CPT/HCPCS: 71046; 85025; 94640; 99283

== ENCOUNTER → 2024-01-14 | Outpatient (CLI) | payer MEDICARE, MEDICAID, SELFPAY | END | disposition home or self-care (01) | LOC: PSN 09:57 | PROVIDERS: PCP Internal Medicine; Referring Provider Nurse Practitioner Acute Care; Visit Provider Nurse Practitioner Acute Care | DX: J44.1 Chronic obstructive pulmonary disease with (acute) exacerbation (principal) | CPT/HCPCS: 94060; 94726; 94729 ==

== ENCOUNTER → 2024-01-17 | Outpatient (CLI) | payer MEDICARE, MEDICAID, SELFPAY ==
[2024-01-17 12:30] VITALS: PULSE 103; PULSE 104; PULSE 105; PULSE 106; PULSE 83; PULSE 92; PULSE 98; O2SAT 94; O2SAT 95; O2SAT 96
--- NOTE | 2024-01-20 07:19 | PCM.PSN.6M ---
PSN 6 Minute Walk Test 6 Minute Walk Test 6 Minute Walk Test: 6 Minute Walk Test PSN:6-Minute Walk Test Start: 01/17/24 12:48 Freq: Status: Active Protocol: [id number] Document 01/17/24 12:30 AEH (Rec: 01/17/24 12:52 AEH [id number]) 6 Minute Walk Test Date Performed 01/17/24 Time Performed 12:30 Height 5 ft 8 in Weight: 155 lb Weight in Pounds 155.[address]: Han Assistive device used: None Pre-test Oxygen Delivery Method Room Air Pulse Ox (%) 95 Pulse Rate (60-100 beats/min) 83 Dyspnea Ken Scale (0-10) 0 Exertion Ken Scale (6-20) 6 1st minute Oxygen Delivery Method Room Air Pulse Ox (%) 94 Pulse Rate (60-100 beats/min) 104 H 2nd minute Oxygen Delivery Method Room Air Pulse Ox (%) 94 Pulse Rate (60-100 beats/min) 106 H 3rd minute Oxygen Delivery Method Room Air Pulse Ox (%) 95 Pulse Rate (60-100 beats/min) 98 4th minute Oxygen Delivery Method Room Air Pulse Ox (%) 95 Pulse Rate (60-100 beats/min) 104 H 5th minute Oxygen Delivery Method Room Air Pulse Ox (%) 95 Pulse Rate (60-100 beats/min) 103 H 6th minute Oxygen Delivery Method Room Air Pulse Ox (%) 94 Pulse Rate (60-100 beats/min) 105 H Dyspnea Ken Scale (0-10) 0 Exertion Ken Scale (6-20) 11 Post-test Oxygen Delivery Method Room Air Pulse Ox (%) 96 Pulse Rate (60-100 beats/min) 92 Full Laps Walked 17 Partial Lap, Number of Tiles Walked 32 Total Distance Walked (ft) 1035 Interpretation Interpretation: The patient ambulated 1035 feet over the course of 6 minutes beginning on room air without assistive devices. Pretesting oxygen saturation was noted to be 95% on room air. With ambulation, the darnell oxygen saturation was 94%. There was no significant exertional oxygen desaturation. Recommendations Recommendations: There is no indication for the use of supplemental oxygen at this time.
== END | disposition home or self-care (01) ==
LOC: PSN 12:28
PROVIDERS: PCP Internal Medicine; Referring Provider Nurse Practitioner Acute Care; Visit Provider Nurse Practitioner Acute Care
DX: J44.1 Chronic obstructive pulmonary disease with (acute) exacerbation (principal)
CPT/HCPCS: 94618

== ENCOUNTER 2024-02-08 21:17 | Emergency (ER) | payer MEDICARE, MEDICAID, SELFPAY ==
[2024-02-08 21:17] VITALS: BP 97/71; PULSE 110; RESP 20; TEMP 36.3; O2SAT 95; BMI 23.4
--- NOTE | 2024-02-08 21:23 | EKG12_ITS ---
Test Reason : SOB Blood Pressure : / mmHG Vent. Rate : 097 BPM Atrial Rate : 097 BPM P-R Int : 118 ms QRS Dur : 076 ms QT Int : 352 ms P-R-T Axes : 067 -23 043 degrees QTc Int : 447 ms Normal sinus rhythm Low voltage QRS Inferior infarct (cited on or before 19-MAR-2023) Abnormal ECG Confirmed by SB ESCOBAR MD ([id number]), senior technical editor THERESA OLIVEIRA ([id number]) on 02/10/2024 10:45:15 AM Referred By: Confirmed By:SB ESCOBAR MD
[2024-02-08 21:41] VITALS: O2SAT 94
[2024-02-08 21:50] LABS: Absolute Lymphocyte Count 1.35 X10^3/uL (0.83-4.51); Basophil# 0.05 X10^3/uL; Basophil% 0.4 % (0-1); Eosinophil# 0.46 X10^3/uL; Eosinophils% 3.8 % (0-5); Hematocrit 40.4 % (40-54); Hemoglobin 13.4 g/dL (13.0-16.5); Lymphocyte # 1.35 X10^3/ul (0.83-4.51); Lymphocyte % 11.2 % (19-41); Mean Corp Hgb Conc 33.2 g/dL (32-36); Mean Corpuscular Hgb 30.6 pg (27.0-32.0); Mean Corpuscular Volume 92.2 fL (80-94); Mean Platelet Vol. 9.2 fl (6.2-12.0); Monocyte# 1.07 X10^3/uL; Monocyte% 8.9 % (0-10); NRBC Flagged by Analyzer 0 % (0-5); Neutrophil # 9.03 X10^3/uL (2.7-7.7); Platelet Count 308 K/mm3 (150-450); RBC Distribution Width CV 13.5 % (11.6-14.6); RBC Distribution Width SD 45.7 fl (35.1-43.9); Red Blood Count 4.38 M/mm3 (4.6-6.2)
--- NOTE | 2024-02-08 21:55 | RAD_ITS ---
STUDY: X-RAY CHEST REASON FOR EXAM: Male, 63 years old. SOB/COPD TECHNIQUE: AP portable COMPARISON: January 04, 2024 FINDINGS: Lungs are hyperinflated and there is minor chronic interstitial changes in the lower lobes.. There is no demonstrated pleural abnormality. Normal size heart. Normal mediastinum and winnie. Normal visualized pulmonary arteries. Normal visualized aortic arch and descending thoracic aorta. Normal visualized thoracic spine. Normal visualized shoulders. Old healed fracture of left clavicle and multiple old healed left rib fractures There is no demonstrated abnormality of the visualized soft tissue structures of the upper abdomen. No significant change since prior study RAD/Chest 1 View (Portable) IMPRESSION: COPD. No acute cardiopulmonary pathology Electronically Signed: Bud Siddiqui MD at 22:39 EDT ,
[2024-02-08 22:05] LABS: Anion Gap 4 (5-15); BUN 16 mg/dL (7-18); BUN/Creat Ratio 16.8 RATIO (10-20); Calcium,Total 8.9 mg/dL (8.5-10.1); Chloride 108 mmol/L (98-107); Creatinine, Serum 0.95 mg/dL (0.70-1.30); EST Glomerular Filtration Rate 85 mL/min (>60); Est Glom Filt Rate - Afr Amer 103 mL/min (>60); Glucose 111 mg/dL (74-106); Potassium 3.7 mmol/L (3.5-5.1); Sodium Level 138 mmol/L (136-145); Troponin-I HS 10 pg/mL (3.0-78.0)
[2024-02-08] MEDS: Albuterol 2.5 MG/3 ML VIAL.NEB. INHALATION (22:28)
[2024-02-08] MEDS: Ipratropium/Albuterol Sulfate 3 ML AMPUL.NEB INHALATION ×2 (22:28)
[2024-02-08 22:29] VITALS: PULSE 101; RESP 17
[2024-02-08] MEDS: MethylPREDNISolone 125 MG/2 ML Vial IV (22:37)
[2024-02-08 23:17] VITALS: BP 136/77; PULSE 99; RESP 25; O2SAT 90
--- NOTE | 2024-02-08 23:41 | EDS_ITS ---
HPI History of Present Illness Chief Complaint: Shortness of Breath Informant: patient and spouse/S.O. Narrative Narrative: Patient is a 63-year-old male with past medical history of COPD but no need for supplemental oxygen. He also has past medical history of coronary artery disease hyperlipidemia and paroxysmal atrial tachycardia. He along with his states that when the weather gets hot he has difficulty breathing. He reports that he was at the pool all day and after returning home had increased shortness of breath that was not responding to his home medication and secondary to his comes in for evaluation [facility] Medical History Arthritis Asthma Asthma-COPD overlap syndrome Atherosclerotic heart disease of [place] coronary artery without angina pectoris Back pain BPH (benign prostatic hyperplasia) Bronchiectasis CAD (coronary artery disease) Cardiology follow-up encounter COPD (chronic obstructive pulmonary disease) COPD exacerbation Dyspepsia and disorder of function of stomach Dysphagia Emphysema, unspecified Gastric reflux GERD (gastroesophageal reflux disease) High cholesterol History of echocardiogram History of heart attack History of hiatal hernia History of pain when walking History of pulmonary embolism History of steroid therapy History of stress test History of ulceration HLD (hyperlipidemia) Hypersomnia Hypertension Ischemic cardiomyopathy Nicotine abuse Old myocardial infarction Paroxysmal atrial tachycardia Paroxysmal ventricular tachycardia Premature ventricular contraction Presence of stent in coronary artery (~06/27/08) Septic shock Shortness of breath on exertion Sleep apnea Smoker Smoking greater than 40 pack years Stage 2 moderate COPD by GOLD classification Wears dentures Wears glasses Wheezing on auscultation Home Medications ?Medication ?Instructions ?Recorded ?Last Taken ?Type clopidogrel 75 mg tablet 75 mg PO QHS blood thinner 06/16/13 11/27/22 History cyanocobalamin (vitamin B-12) 1,000 mcg PO DAILY vitamin 10/15/17 12/11/21 History 1,000 mcg tablet aspirin 81 mg tablet,delayed 81 mg PO DAILY HEALTH MAINTENTANCE 12/12/21 11/26/22 History release atorvastatin 20 mg tablet 20 mg PO QHS CHOLESTEROL 12/12/21 Unknown History cholecalciferol (vitamin D3) 50 50 mcg PO DAILY SUPPLEMENT 12/12/21 Unknown History mcg (2,000 unit) tablet (Vitamin D3) gabapentin 600 mg tablet 600 mg PO QHS PRN Pain 12/12/21 Unknown History lisinopril 2.5 mg tablet 2.5 mg PO DAILY BLOOD PRESSURE 12/12/21 11/29/22 History montelukast 10 mg tablet 10 mg PO QHS BREATHING 12/12/21 Unknown History (Singulair) PEP device 01/30/22 Unknown History budesonide 160 mcg-glycopyr 9 2 inh inhalation BID 11/28/22 Unknown History mcg-formot 4.8 mcg/actuation HFA inhaler (Breztri Aerosphere) omeprazole 20 mg capsule,delayed 40 mg (2 x 20 mg) PO BID #120 caps 12/20/22 Unknown Rx release albuterol sulfate 2.5 mg/3 mL 2.5 mg (3 mL) inhalation Q4H PRN 09/26/23 Unknown Rx (0.083 %) solution for nebulization shortness of breath or wheezing #180 mL albuterol sulfate 90 mcg/actuation 2 puff inhalation Q4H PRN Asthma 09/26/23 Unknown Rx aerosol inhaler #8.5 grams fluticasone propionate 50 2 spray intranasal DAILY #16 grams 09/26/23 Unknown Rx mcg/actuation nasal spray,suspension (Flonase Allergy Relief) guaifenesin 1,200 mg tablet, 1,200 mg PO Q12H #60 tabs 11/18/23 Unknown Rx extended release 12 hr fexofenadine 180 mg tablet 180 mg PO DAILY #90 tabs 01/02/24 Unknown Rx (Harriet Allergy) ipratropium 0.5 mg-albuterol 3 mg 3 ml inhalation Q6H PRN shortness 02/08/24 Unknown Rx (2.5 mg base)/3 mL nebulization of breath/wheeze #180 mL soln prednisone 10 mg tablet 10 mg PO DAILY #45 TABLETS 02/08/24 Unknown Rx Allergy/AdvReac Type Severity Reaction Status Date / Time latex Allergy Rash Verified 02/08/24 21:19 varenicline tartrate (From Allergy Hives Verified 02/08/24 21:19 Chantix) aspirin AdvReac Upset Verified 02/08/24 21:19 Stomach Family History Father , age 50 CAD (coronary artery disease) Heart disease Myocardial infarction Mother Diabetes Brother Hypertension Surgical History History of cardiac catheterization History of coronary artery stent placement History of hernia repair History of thumb surgery Hx of angioplasty Hx of cystoscopy Hx of nasal sinusotomy Hx of right knee surgery Hx of shoulder surgery Hx of sinus surgery Hx of tonsillectomy Presence of coronary angioplasty implant and graft (~06/27/08) Social History household members: significant other and children Smoking Status: Current every day smoker tobacco type: cigarettes and smokeless tobacco alcohol intake: never substance use type: does not use caffeine: Yes Type: coffee Number of servings: 3 what type of physical activity do you participate in: walking frequency: daily duration: 45-60 minutes/day seatbelt use: always do you feel safe at home: Yes ROS ROS ED Constitutional Constitutional ED: Denies chills or fever(s) Eyes Eyes: Denies change in vision ENT ENT ED: Denies rhinorrhea or sore throat Cardiovascular Cardiovascular: Denies chest pain Respiratory/Chest Respiratory/Chest: Reports cough and dyspnea Gastrointestinal Gastrointestinal: Denies abdominal pain, diarrhea, nausea or vomiting Genitourinary Genitourinary ED: Denies dysuria Musculoskeletal Musculoskeletal: Denies myalgias Integumentary Denies rash Neurologic Neurologic: Denies headache(s) Hematologic/Lymphatic Hematologic/Lymphatic: Denies easy bleeding or easy bruising EXAM Physical Exam Const Vital Signs: 02/08/24 21:17 02/08/24 21:41 02/08/24 21:41 Temperature 97.4 F L Temperature Source Temporal Pulse Rate 110 H Respiratory Rate 20 H Respiratory Pattern Blood Pressure 97/71 Blood Pressure Mean 79 Pulse Ox 95 94 Oxygen Delivery Method Room Air Room Air Room Air 02/08/24 21:44 02/08/24 22:29 02/08/24 23:17 Temperature Temperature Source Pulse Rate 101 H 99 Respiratory Rate 17 25 H Respiratory Pattern Tachypnea Blood Pressure 136/77 H Blood Pressure Mean 96 Pulse Ox 90 Oxygen Delivery Method Room Air Room Air 02/08/24 23:52 Temperature 98.0 F Temperature Source Pulse Rate 95 Respiratory Rate 20 H Respiratory Pattern Blood Pressure 136/75 H Blood Pressure Mean 95 Pulse Ox 93 Oxygen Delivery Method Positive well nourished and well developed General Appearance ED: well developed; Negative for pallor HEENT Reports moist mucous membranes HEENT Narrative: No tongue or lip swelling no oral lesions no airway edema or compromise Eyes PERRL and EOMs intact bilaterally General Eye ED: Negative for pale conjunctiva or scleral icterus Neck supple and no JVD Chest Wall palpation of chest normal Chest Narrative: No bony deformity or crepitance Resp normal respiratory effort Resp Narrative: Breath sounds are diminished throughout with diffuse inspiratory and expiratory wheezing however no nasal flaring retractions tachypnea or accessory muscle use Cardio regular rhythm Rate: tachycardic Extremity normal to inspection Extremity Narrative: No asymmetric edema no pitting edema negative Homans' sign bilaterally Neuro oriented x3, CN's II-XII intact bilaterally and no sensory deficits noted Sensorium / Orientation: alert Motor Exam: strength 5/5 throughout Psych mental status grossly normal Skin no rashes or lesions noted General Skin Exam: Negative for jaundice or pallor MDM MDM MDM Narrative Medical decision making narrative: Patient arrived to the ER mildly tachycardic but otherwise with stable vitals. He has a history of COPD and states after being out in the warmer weather had difficulty breathing that was not responding to his home medication. Differential diagnosis is for COPD exacerbation versus pneumonia versus pneumothorax versus congestive heart failure versus CAD/acute coronary syndrome. Basic blood work was obtained secondary to this which revealed no clinically significant finding. Chest x-ray revealed no acute lung pathology just COPD changes. After administration of IV steroids as well as breathing medication he had resolution of his symptoms and his breath sounds improved as well. At this time with negative workup and improvement of symptoms and no need for supplemental oxygen I do not feel there is need for further evaluation in the ER and patient is otherwise safe for discharge History & Record Review Discussion w/independent historian: Patient and Significant other Lab Data Attestation: I reviewed the patient's lab results. Labs: Laboratory Results - last 24 hr 02/08/24 21:35 WBC 12.0 H RBC 4.38 L Hgb 13.4 Hct 40.4 MCV 92.2 MCH 30.6 MCHC 33.2 RDW Std Deviation 45.7 H RDW Coeff of [place] 13.5 Plt Count 308 MPV 9.2 Immature Gran % (Auto) 0.700 Neut % (Auto) 75.0 H Lymph % (Auto) 11.2 L [place] % (Auto) 8.9 Eos % (Auto) 3.8 Baso % (Auto) 0.4 Absolute Neuts (auto) 9.0 H Absolute Lymphs (auto) 1.35 Nucleated RBC % 0 Sodium 138 Potassium 3.7 Chloride 108 H Carbon Dioxide 26.0 Anion Gap 4 L BUN 16 Creatinine 0.95 Estim Creat Clear Calc 78.00 Est GFR (MDRD) Af Amer 103 Est GFR (MDRD) Non-Af 85 BUN/Creatinine Ratio 16.8 Glucose 111 H Calcium 8.9 Troponin I High Sens 10 Radiography Diagnostic Testing: Clinical Impression(s) from Imaging Studies Chest X-Ray 02/08/24 21:55 IMPRESSION: COPD. No acute cardiopulmonary pathology Electronically Signed: Bud Siddiqui MD at 22:39 EDT Reading Location ID and State: [facility] / [place] Tel , Service support , Chest x-ray as interpreted by the emergency medicine physician reveals COPD changes without acute infiltrate pneumothorax or pleural effusion Discharge Plan Triage Chief Complaint: Shortness of Breath ED Provider: Darren Barnes Dx/Rx/DC Orders Clinical Impression: Acute exacerbation of chronic obstructive pulmonary disease, Nicotine abuse, HLD (hyperlipidemia), CAD (coronary artery disease) Instructions: COPD: Wheezing and Chest Tightness Prescriptions: New ipratropium-albuterol 0.5 mg-3 mg(2.5 mg base)/3 mL solution for nebulization 3 ml inhalation Q6H PRN (Reason: shortness of breath/wheeze) Qty: 180 1RF prednisone 10 mg tablet 10 mg PO DAILY Qty: 45 0RF Rx Instructions: 5 po qd x 3 days, 4 po qd x 3 days, 3 po qd x 3 days, 2 po qd x 3 days, 1 po qd x 3 days No Action cyanocobalamin (vitamin B-12) 1,000 mcg tablet 1,000 mcg PO DAILY (DME) PEP device See Rx Instructions .ROUTE .MEDSUPPLY Rx Instructions: with training omeprazole 20 mg capsule,delayed release(DR/EC) 40 mg PO BID Qty: 120 1RF fexofenadine [Harriet Allergy] 180 mg tablet 180 mg PO DAILY Qty: 90 0RF clopidogrel 75 MG tablet 75 mg PO QHS Patient Comments: BLOOD THINNER aspirin 81 mg Tablet,Delayed Release (Dr/Ec) 81 mg PO DAILY gabapentin 600 mg Tablet 600 mg PO QHS PRN (Reason: Pain) atorvastatin 20 mg Tablet 20 mg PO QHS lisinopril 2.5 mg Tablet 2.5 mg PO DAILY montelukast [Singulair] 10 mg Tablet 10 mg PO QHS cholecalciferol (vitamin D3) [Vitamin D3] 50 mcg (2,000 unit) Tablet 50 mcg PO DAILY Hui Aerosphere 160-9-4.8 mcg/actuation Hfa Aerosol Inhaler 2 inh INHALATION BID fluticasone propionate [Flonase Allergy Relief] 50 mcg/actuation spray,suspension 2 spray intranasal DAILY Qty: 16 0RF Rx Instructions: administer into each nostril albuterol sulfate 90 mcg/actuation HFA aerosol inhaler 2 puff INHALATION Q4H PRN (Reason: Asthma) Qty: 8.5 11RF albuterol sulfate 2.5 mg /3 mL (0.083 %) solution for nebulization 2.5 mg inhalation Q4H PRN (Reason: shortness of breath or wheezing) Qty: 180 11RF guaifenesin 1,200 mg tablet extended release 12hr 1,200 mg PO Q12H Qty: 60 6RF Primary Care Provider: Alexey Mayberry Referrals: Alexey Mayberry MD [Primary Care Provider] - Print Language: Slovak Disposition Disposition: Home, Self Care Discharge Date/Time: 02/08/24 23:53
[2024-02-08 23:52] VITALS: BP 136/75; PULSE 95; RESP 20; TEMP 36.7; O2SAT 93
== END 2024-02-08 23:53 | disposition home or self-care (01) ==
PROVIDERS: Emergency Medicine; Emergency Provider Emergency Medicine; PCP Internal Medicine; Visit Provider Emergency Medicine
DX: J44.1 Chronic obstructive pulmonary disease with (acute) exacerbation (principal); I25.10 Atherosclerotic heart disease of native coronary artery without angina pectoris; E78.5 Hyperlipidemia, unspecified; Z95.5 Presence of coronary angioplasty implant and graft; F17.210 Nicotine dependence, cigarettes, uncomplicated
CPT/HCPCS: 71045; 80048; 84484; 85025; 93005; 94640; 94760; 96374; 99283; A4216

== ENCOUNTER 2024-04-14 18:20 | Emergency (ER) | payer MEDICARE, MEDICAID, SELFPAY ==
[2024-04-14] VITALS (7 sets, daily range): BP systolic 115–129; BP diastolic 76–86; PULSE 85–102; RESP 18–24; TEMP 36.4–36.6; O2SAT 95–100; BMI 23.1
--- NOTE | 2024-04-14 18:55 | RAD_ITS ---
STUDY: X-RAY CHEST REASON FOR EXAM: Male, 63 years old. chest pain TECHNIQUE: Single AP portable view of the chest. COMPARISON: 02/08/2024. FINDINGS: The lungs are clear and expanded. There is no demonstrated pleural abnormality. Normal size heart. Normal mediastinum and winnie. Normal visualized pulmonary arteries. Normal visualized aortic arch and descending thoracic aorta. Normal visualized thoracic spine. Several old left rib fractures are stable. There is no demonstrated abnormality of the visualized soft tissue structures of the upper abdomen. RAD/Chest 1 View (Portable) IMPRESSION: No definite acute or significant abnormality seen. Electronically Signed: Richard Kent MD at 19:25 EDT ,
[2024-04-14 19:12] LABS: Absolute Lymphocyte Count 1.29 X10^3/uL (0.83-4.51); Absolute Neutrophil Count 6.1 X10^3/uL (2.0-7.7); Basophil# 0.07 X10^3/uL; Basophil% 0.8 % (0-1); Eosinophil# 0.48 X10^3/uL; Eosinophils% 5.4 % (0-5); Hematocrit 41.7 % (40-54); Hemoglobin 13.6 g/dL (13.0-16.5); Lymphocyte # 1.29 X10^3/ul (0.83-4.51); Lymphocyte % 14.4 % (19-41); Mean Corp Hgb Conc 32.6 g/dL (32-36); Mean Corpuscular Hgb 29.6 pg (27.0-32.0); Mean Corpuscular Volume 90.8 fL (80-94); Mean Platelet Vol. 9.4 fl (6.2-12.0); Monocyte# 0.95 X10^3/uL; Monocyte% 10.6 % (0-10); NRBC Flagged by Analyzer 0 % (0-5); Neutrophil # 6.07 X10^3/uL (2.7-7.7); Neutrophil % 67.8 % (47-70); Platelet Count 321 K/mm3 (150-450); RBC Distribution Width CV 13.3 % (11.6-14.6); RBC Distribution Width SD 44.6 fl (35.1-43.9); Red Blood Count 4.59 M/mm3 (4.6-6.2)
[2024-04-14 19:13] LABS: Anion Gap 6 (5-15); BUN 7 mg/dL (7-18); BUN/Creat Ratio 8.1 RATIO (10-20); Calcium,Total 9.2 mg/dL (8.5-10.1); Chloride 104 mmol/L (98-107); Creatinine, Serum 0.86 mg/dL (0.70-1.30); EST Glomerular Filtration Rate 96 mL/min (>60); Est Glom Filt Rate - Afr Amer 116 mL/min (>60); Estimated Creatinine Clearance 86.16 ml/min; Glucose 112 mg/dL (74-106); Potassium 3.9 mmol/L (3.5-5.1); Sodium Level 137 mmol/L (136-145); Troponin-I HS 6 pg/mL (3.0-78.0)
--- NOTE | 2024-04-14 20:42 | EDS_ITS ---
HPI History of Present Illness Chief Complaint: Shortness of Breath Informant: patient Onset/Context/Timing Onset: Days (4) Context: gradual Timing: Intermittent Quality: Positive for Wheezing Worsened by: - (Humidity) Relieved by: Nothing Associated Symptoms cough; Negative for rhinorrhea, ear pain, fever, sore throat, chills, sweats, clear sputum, white sputum, yellow sputum or green sputum Chest Pain: Positive for None Narrative Narrative: Patient presents with dyspnea that has been getting worse over the past 4 days. Patient states that has been intermittent. Patient states he feels himself wheezing. Patient states it is worse with humidity in the air. Patient states nothing seems to help with it. Patient has albuterol aerosols and steroid inhalers which have not been helping. Patient admits to a cough but denies any sputum production. Patient denies any fevers or chills. Patient denies any sore throat or rhinorrhea. Patient denies any chest pain. However, patient states that sometimes he does have pain with coughing. [facility] Medical History Wears dentures Wears glasses History of steroid therapy Arthritis High cholesterol Back pain History of hiatal hernia History of ulceration Gastric reflux Smoker Sleep apnea Hypertension Emphysema, unspecified Asthma Shortness of breath on exertion History of pain when walking History of echocardiogram History of stress test Cardiology follow-up encounter History of heart attack GERD (gastroesophageal reflux disease) Dysphagia Smoking greater than 40 pack years Wheezing on auscultation Hypersomnia Bronchiectasis Asthma-COPD overlap syndrome Stage 2 moderate COPD by GOLD classification COPD exacerbation BPH (benign prostatic hyperplasia) Paroxysmal atrial tachycardia Paroxysmal ventricular tachycardia Premature ventricular contraction Presence of stent in coronary artery (~06/27/08) Old myocardial infarction Septic shock Atherosclerotic heart disease of [place] coronary artery without angina pectoris Ischemic cardiomyopathy HLD (hyperlipidemia) CAD (coronary artery disease) COPD (chronic obstructive pulmonary disease) History of pulmonary embolism Nicotine abuse Dyspepsia and disorder of function of stomach Home Medications ?Medication ?Instructions ?Recorded ?Last Taken ?Type clopidogrel 75 mg tablet 75 mg PO QHS blood thinner 06/16/13 11/27/22 History cyanocobalamin (vitamin B-12) 1,000 mcg PO DAILY vitamin 10/15/17 12/11/21 History 1,000 mcg tablet aspirin 81 mg tablet,delayed 81 mg PO DAILY HEALTH MAINTENTANCE 12/12/21 11/26/22 History release atorvastatin 20 mg tablet 20 mg PO QHS CHOLESTEROL 12/12/21 Unknown History cholecalciferol (vitamin D3) 50 50 mcg PO DAILY SUPPLEMENT 12/12/21 Unknown History mcg (2,000 unit) tablet (Vitamin D3) gabapentin 600 mg tablet 600 mg PO QHS PRN Pain 12/12/21 Unknown History lisinopril 2.5 mg tablet 2.5 mg PO DAILY BLOOD PRESSURE 12/12/21 11/29/22 History montelukast 10 mg tablet 10 mg PO QHS BREATHING 12/12/21 Unknown History (Singulair) PEP device 01/30/22 Unknown History budesonide 160 mcg-glycopyr 9 2 inh inhalation BID 11/28/22 Unknown History mcg-formot 4.8 mcg/actuation HFA inhaler (Breztri Aerosphere) omeprazole 20 mg capsule,delayed 40 mg (2 x 20 mg) PO BID #120 caps 12/20/22 Unknown Rx release albuterol sulfate 2.5 mg/3 mL 2.5 mg (3 mL) inhalation Q4H PRN 09/26/23 Unknown Rx (0.083 %) solution for nebulization shortness of breath or wheezing #180 mL albuterol sulfate 90 mcg/actuation 2 puff inhalation Q4H PRN Asthma 09/26/23 Unknown Rx aerosol inhaler #8.5 grams ipratropium 0.5 mg-albuterol 3 mg 3 ml inhalation Q6H PRN shortness 02/08/24 Unknown Rx (2.5 mg base)/3 mL nebulization of breath/wheeze #180 mL soln cetirizine 10 mg capsule (All Day 10 mg PO DAILY PRN allergy symptoms 02/14/24 Unknown History Allergy (cetirizine)) fluticasone propionate 50 2 spray intranasal DAILY #3 ea 02/14/24 Unknown Rx mcg/actuation nasal spray,suspension (Flonase Allergy Relief) guaifenesin 1,200 mg tablet, 1,200 mg PO TID 04/09/24 Unknown History extended release 12 hr prednisone 20 mg tablet 60 mg (3 x 20 mg) PO DAILY #15 04/14/24 Unknown Rx TABLETS Allergy/AdvReac Type Severity Reaction Status Date / Time latex Allergy Rash Verified 04/14/24 18:20 varenicline tartrate (From Allergy Hives Verified 04/14/24 18:20 Chantix) aspirin AdvReac Upset Verified 04/14/24 18:20 Stomach Family History Father , age 50 CAD (coronary artery disease) Heart disease Myocardial infarction Mother Diabetes Brother Hypertension Surgical History Hx of carpal tunnel repair Hx of angioplasty History of cardiac catheterization History of coronary artery stent placement Hx of shoulder surgery Hx of sinus surgery Hx of nasal sinusotomy Hx of cystoscopy Hx of tonsillectomy History of thumb surgery Hx of right knee surgery Presence of coronary angioplasty implant and graft (~06/27/08) History of hernia repair Social History household members: significant other and children Smoking Status: Current every day smoker tobacco type: cigarettes and smokeless tobacco alcohol intake: never substance use type: does not use caffeine: Yes Type: coffee Number of servings: 3 what type of physical activity do you participate in: walking frequency: daily duration: 45-60 minutes/day seatbelt use: always do you feel safe at home: Yes ROS ROS ED Constitutional Constitutional ED: Denies chills or fever(s) Eyes Eyes: Denies blurry vision or change in vision ENT ENT ED: Denies rhinorrhea or sore throat Cardiovascular Cardiovascular: Denies chest pain or palpitations Respiratory/Chest Respiratory/Chest: Reports cough and dyspnea Gastrointestinal Gastrointestinal: Denies nausea or vomiting Genitourinary Genitourinary ED: Denies dysuria or hematuria Musculoskeletal Musculoskeletal: Denies back pain or neck pain Integumentary Denies abscess or rash Neurologic Neurologic: Denies headache(s) or weakness Allergic/Immunologic Allergic/Immunologic ED: Denies mouth swelling or urticaria EXAM Physical Exam Const Vital Signs: 04/14/24 18:20 04/14/24 19:56 04/14/24 19:56 Temperature 97.6 F L Temperature Source Temporal Pulse Rate 102 H Respiratory Rate 18 24 H Respiratory Effort Respiratory Depth Respiratory Pattern Blood Pressure 129/77 H Blood Pressure Mean 94 Pulse Ox 97 98 98 Oxygen Delivery Method Room Air Room Air Room Air 04/14/24 19:57 04/14/24 20:20 04/14/24 20:59 Temperature Temperature Source Pulse Rate 85 97 Respiratory Rate 24 H 24 H Respiratory Effort Short of Breath Respiratory Depth Shallow Respiratory Pattern Tachypnea Blood Pressure 115/76 Blood Pressure Mean 89 Pulse Ox 95 Oxygen Delivery Method Room Air Room Air 04/14/24 22:00 Temperature Temperature Source Pulse Rate 97 Respiratory Rate 22 H Respiratory Effort Respiratory Depth Respiratory Pattern Blood Pressure 124/86 H Blood Pressure Mean 98 Pulse Ox 100 Oxygen Delivery Method Room Air Positive well nourished and well developed General Appearance ED: well developed and NAD HEENT Reports moist mucous membranes Neck supple and no JVD Resp normal respiratory effort Auscultation: wheezes expiratory wheezes and throughout Cardio regular rate and regular rhythm GI non-tender and non-distended Palpation: soft Neuro oriented x3, CN's II-XII intact bilaterally and no sensory deficits noted Kira Coma Scale: document GCS findings Spontaneous Obeys Commands Oriented 15 Sensorium / Orientation: alert Motor Exam: strength 5/5 throughout Psych mental status grossly normal MDM MDM MDM Narrative Medical decision making narrative: Differential diagnosis includes COPD exacerbation, pneumonia, viral illness, and cardiac ischemia. EKG will be obtained to assess for cardiac dysrhythmia and cardiac ischemia. CBC will be obtained to assess for leukocytosis and anemia. Basic metabolic profile will be obtained to assess for electrolyte abnormality and renal function. High-sensitivity troponin will be obtained to assess for cardiac ischemia. Chest x-ray will be obtained to assess for pneumonia and pneumothorax. Lab Data Attestation: I reviewed the patient's lab results. Lab results narrative: CBC was reviewed and was within normal limits. Basic metabolic profile was reviewed and was within normal limits. High-sensitivity troponin was reviewed and was normal at 6. COVID-19 PCR was reviewed and was negative. Influenza PCR was reviewed and was negative for influenza A and influenza B. RSV PCR was reviewed and was negative. Labs: Laboratory Results - last 24 hr 04/14/24 18:42 WBC 9.0 RBC 4.59 L Hgb 13.6 Hct 41.7 MCV 90.8 MCH 29.6 MCHC 32.6 RDW Std Deviation 44.6 H RDW Coeff of [place] 13.3 Plt Count 321 MPV 9.4 Immature Gran % (Auto) 1.000 H Neut % (Auto) 67.8 Lymph % (Auto) 14.4 L [place] % (Auto) 10.6 H Eos % (Auto) 5.4 H Baso % (Auto) 0.8 Absolute Neuts (auto) 6.1 Absolute Lymphs (auto) 1.29 Nucleated RBC % 0 Sodium 137 Potassium 3.9 Chloride 104 Carbon Dioxide 27.0 Anion Gap 6 BUN 7 Creatinine 0.86 Estim Creat Clear Calc 86.16 Est GFR (MDRD) Af Amer 116 Est GFR (MDRD) Non-Af 96 BUN/Creatinine Ratio 8.1 L Glucose 112 H Calcium 9.2 Troponin I High Sens 6 Radiography Chest X-Ray - ED: 1 View, Read by ED Physician, Read by Radiologist and No Acute Disease Diagnostic Testing: Clinical Impression(s) from Imaging Studies Chest X-Ray 04/14/24 18:55 IMPRESSION: No definite acute or significant abnormality seen. Electronically Signed: Richard Kent MD at 19:25 EDT , Portable 1 view chest x-ray was obtained. On my independent interpretation, lung noe are clear. There is normal cardiac silhouette. Bony thorax is normal. There is no acute process noted. Radiologist also interpreted the x- ray and agrees. EKG Initial EKG: Attestation: I personally reviewed and interpreted this EKG as follows: Interpretation: Sinus Rhythm (94) and Non-Specific ST Changes Comments: EKG was obtained. On my independent interpretation, it showed a normal sinus rhythm with a rate of 94. [place] interval, QRS interval, and QTc intervals were all normal. [place] was normal. There is low voltage QRS. There are nonspecific ST-T wave changes. Prior EKG tracings: available for review Prior: Unchanged (02/08/2024) Treatment and Re-Evaluation :: Patient was given a dose of prednisone here. Patient was given a DuoNeb aerosol. Patient is feeling better on reevaluation. Patient was advised of his findings. Patient was given a prescription for a short course of prednisone. Patient was instructed to continue his inhalers and aerosols at home as previously prescribed. Patient was instructed to follow-up with his primary care physician in 5 to 7 days. Patient was instructed return if worse in any way. Patient understood and was agreeable with the plan. All questions were answered. Discharge Plan Triage Chief Complaint: Shortness of Breath ED Provider: Dean Linda Dx/Rx/DC Orders Clinical Impression: COPD (chronic obstructive pulmonary disease), Nicotine abuse Instructions: ED COPD Flare Prescriptions: New prednisone 20 mg tablet 60 mg PO DAILY Qty: 15 0RF No Action cyanocobalamin (vitamin B-12) 1,000 mcg tablet 1,000 mcg PO DAILY (DME) PEP device See Rx Instructions .ROUTE .MEDSUPPLY Rx Instructions: with training omeprazole 20 mg capsule,delayed release(DR/EC) 40 mg PO BID Qty: 120 1RF guaifenesin 1,200 mg tablet extended release 12hr 1,200 mg PO TID All Day Allergy (cetirizine) 10 mg capsule 10 mg PO DAILY PRN (Reason: allergy symptoms) fluticasone propionate [Flonase Allergy Relief] 50 mcg/actuation spray,suspension 2 spray intranasal DAILY Qty: 3 3RF Rx Instructions: administer into each nostril clopidogrel 75 MG tablet 75 mg PO QHS Patient Comments: BLOOD THINNER aspirin 81 mg Tablet,Delayed Release (Dr/Ec) 81 mg PO DAILY gabapentin 600 mg Tablet 600 mg PO QHS PRN (Reason: Pain) atorvastatin 20 mg Tablet 20 mg PO QHS lisinopril 2.5 mg Tablet 2.5 mg PO DAILY montelukast [Singulair] 10 mg Tablet 10 mg PO QHS cholecalciferol (vitamin D3) [Vitamin D3] 50 mcg (2,000 unit) Tablet 50 mcg PO DAILY Breztri Aerosphere 160-9-4.8 mcg/actuation Hfa Aerosol Inhaler 2 inh INHALATION BID ipratropium-albuterol 0.5 mg-3 mg(2.5 mg base)/3 mL solution for nebulization 3 ml inhalation Q6H PRN (Reason: shortness of breath/wheeze) Qty: 180 1RF albuterol sulfate 90 mcg/actuation HFA aerosol inhaler 2 puff INHALATION Q4H PRN (Reason: Asthma) Qty: 8.5 11RF albuterol sulfate 2.5 mg /3 mL (0.083 %) solution for nebulization 2.5 mg inhalation Q4H PRN (Reason: shortness of breath or wheezing) Qty: 180 11RF Primary Care Provider: Alexey Mayberry Referrals: Alexey Mayberry MD [Primary Care Provider] - 5-7 Days Print Language: Malay
--- NOTE | 2024-04-14 20:50 | EKG12_ITS ---
Test Reason : SOB Blood Pressure : / mmHG Vent. Rate : 094 BPM Atrial Rate : 094 BPM P-R Int : 114 ms QRS Dur : 078 ms QT Int : 368 ms P-R-T Axes : 055 -07 041 degrees QTc Int : 460 ms Normal sinus rhythm with sinus arrhythmia Low voltage QRS Inferior infarct (cited on or before 19-MAR-2023) Abnormal ECG When compared with ECG of 08-FEB-2024 21:24, No significant change was found Confirmed by Roland Martínez ([id number]), society editor MARI LAWSON ([id number]) on 04/20/2024 9:26:11 AM Referred By: Confirmed By:Roland Martínez
[2024-04-14] MEDS: Ipratropium/Albuterol Sulfate 3 ML AMPUL.NEB INHALATION (20:58)
[2024-04-14] MEDS: predniSONE 20 MG Tablet 60 MG PO (21:08)
== END 2024-04-14 22:36 | disposition home or self-care (01) ==
PROVIDERS: Emergency Provider Emergency Medicine; PCP Internal Medicine; Visit Provider Emergency Medicine
DX: I25.10 Atherosclerotic heart disease of native coronary artery without angina pectoris (principal); J44.9 Chronic obstructive pulmonary disease, unspecified; I25.5 Ischemic cardiomyopathy; I10 Essential (primary) hypertension; E78.00 Pure hypercholesterolemia, unspecified; I25.2 Old myocardial infarction; F17.220 Nicotine dependence, chewing tobacco, uncomplicated; F17.210 Nicotine dependence, cigarettes, uncomplicated; Z79.51 Long term (current) use of inhaled steroids; Z79.82 Long term (current) use of aspirin; Z79.899 Other long term (current) drug therapy; Z95.5 Presence of coronary angioplasty implant and graft
CPT/HCPCS: 71045; 80048; 84484; 85025; 87631; 93005; 94640; 94760; 99283

== ENCOUNTER 2024-05-04 17:14 | Emergency (ER) | payer MEDICARE, MEDICAID, SELFPAY ==
[2024-05-04] VITALS (11 sets, daily range): BP systolic 107–128; BP diastolic 65–83; PULSE 91–108; RESP 17–24; TEMP 36.1–37.1; O2SAT 91–98
[2024-05-04 17:40] LABS: Absolute Lymphocyte Count 0.96 X10^3/uL (0.83-4.51); Absolute Neutrophil Count 3.9 X10^3/uL (2.0-7.7); Basophil# 0.05 X10^3/uL; Basophil% 0.8 % (0-1); Eosinophil# 0.38 X10^3/uL; Eosinophils% 6.2 % (0-5); Hemoglobin 14.7 g/dL (13.0-16.5); Lymphocyte # 0.96 X10^3/ul (0.83-4.51); Lymphocyte % 15.8 % (19-41); Mean Corp Hgb Conc 32.7 g/dL (32-36); Mean Corpuscular Hgb 29.9 pg (27.0-32.0); Mean Corpuscular Volume 91.5 fL (80-94); Mean Platelet Vol. 9.3 fl (6.2-12.0); Monocyte# 0.71 X10^3/uL; Monocyte% 11.7 % (0-10); NRBC Flagged by Analyzer 0 % (0-5); Neutrophil # 3.92 X10^3/uL (2.7-7.7); Neutrophil % 64.4 % (47-70); Platelet Count 300 K/mm3 (150-450); RBC Distribution Width CV 13.5 % (11.6-14.6); RBC Distribution Width SD 45.9 fl (35.1-43.9); Red Blood Count 4.92 M/mm3 (4.6-6.2); White Blood Count 6.1 K/mm3 (4.4-11.0)
--- NOTE | 2024-05-04 17:55 | ED.VIS.DYS ---
HPI History of Present Illness Chief Complaint: Shortness of Breath Informant: patient and family Narrative Narrative: History of COPD no home oxygen increasing productive cough of 4 days a day increasing dyspnea with wheeze this afternoon while resting. No fevers chills or muscle aches. No chest or abdominal pain. No history of diabetes. History of coronary artery disease. Denies chest tightness. Status post aerosol treatments prior to arrival. History of COVID infection in the past. PE Risk Factors: Negative for Cancer, OCP + Smoking + > 35, Prior DVT or PE, Recent immobilization, Recent surgery or Recent travel Prior similar symptoms: Yes [facility] Medical History Wears dentures Wears glasses History of steroid therapy Arthritis High cholesterol Back pain History of hiatal hernia History of ulceration Gastric reflux Smoker Sleep apnea Hypertension Emphysema, unspecified Asthma Shortness of breath on exertion History of pain when walking History of echocardiogram History of stress test Cardiology follow-up encounter History of heart attack GERD (gastroesophageal reflux disease) Dysphagia Smoking greater than 40 pack years Wheezing on auscultation Hypersomnia Bronchiectasis Asthma-COPD overlap syndrome Stage 2 moderate COPD by GOLD classification COPD exacerbation BPH (benign prostatic hyperplasia) Paroxysmal atrial tachycardia Paroxysmal ventricular tachycardia Premature ventricular contraction Presence of stent in coronary artery (~06/27/08) Old myocardial infarction Septic shock Atherosclerotic heart disease of [place] coronary artery without angina pectoris Ischemic cardiomyopathy HLD (hyperlipidemia) CAD (coronary artery disease) COPD (chronic obstructive pulmonary disease) History of pulmonary embolism Nicotine abuse Dyspepsia and disorder of function of stomach Home Medications ?Medication ?Instructions ?Recorded ?Last Taken ?Type clopidogrel 75 mg tablet 75 mg PO QHS blood thinner 06/16/13 11/27/22 History cyanocobalamin (vitamin B-12) 1,000 mcg PO DAILY vitamin 10/15/17 12/11/21 History 1,000 mcg tablet aspirin 81 mg tablet,delayed 81 mg PO DAILY HEALTH MAINTENTANCE 12/12/21 11/26/22 History release atorvastatin 20 mg tablet 20 mg PO QHS CHOLESTEROL 12/12/21 Unknown History cholecalciferol (vitamin D3) 50 50 mcg PO DAILY SUPPLEMENT 12/12/21 Unknown History mcg (2,000 unit) tablet (Vitamin D3) gabapentin 600 mg tablet 600 mg PO QHS PRN Pain 12/12/21 Unknown History lisinopril 2.5 mg tablet 2.5 mg PO DAILY BLOOD PRESSURE 12/12/21 11/29/22 History montelukast 10 mg tablet 10 mg PO QHS BREATHING 12/12/21 Unknown History (Singulair) PEP device 01/30/22 Unknown History budesonide 160 mcg-glycopyr 9 2 inh inhalation BID 11/28/22 Unknown History mcg-formot 4.8 mcg/actuation HFA inhaler (Breztri Aerosphere) omeprazole 20 mg capsule,delayed 40 mg (2 x 20 mg) PO BID #120 caps 12/20/22 Unknown Rx release albuterol sulfate 2.5 mg/3 mL 2.5 mg (3 mL) inhalation Q4H PRN 09/26/23 Unknown Rx (0.083 %) solution for nebulization shortness of breath or wheezing #180 mL albuterol sulfate 90 mcg/actuation 2 puff inhalation Q4H PRN Asthma 09/26/23 Unknown Rx aerosol inhaler #8.5 grams ipratropium 0.5 mg-albuterol 3 mg 3 ml inhalation Q6H PRN shortness 02/08/24 Unknown Rx (2.5 mg base)/3 mL nebulization of breath/wheeze #180 mL soln cetirizine 10 mg capsule (All Day 10 mg PO DAILY PRN allergy symptoms 02/14/24 Unknown History Allergy (cetirizine)) fluticasone propionate 50 2 spray intranasal DAILY #3 ea 02/14/24 Unknown Rx mcg/actuation nasal spray,suspension (Flonase Allergy Relief) guaifenesin 1,200 mg tablet, 1,200 mg PO TID 04/09/24 Unknown History extended release 12 hr azithromycin 250 mg tablet 250 mg PO DAILY #4 TABLETS 05/04/24 Unknown Rx prednisone 20 mg tablet 60 mg (3 x 20 mg) PO DAILY #12 05/04/24 Unknown Rx TABLETS Allergy/AdvReac Type Severity Reaction Status Date / Time latex Allergy Rash Verified 05/04/24 17:15 varenicline tartrate (From Allergy Hives Verified 05/04/24 17:15 Chantix) aspirin AdvReac Upset Verified 05/04/24 17:15 Stomach Family History Father , age 50 CAD (coronary artery disease) Heart disease Myocardial infarction Mother Diabetes Brother Hypertension Surgical History Hx of carpal tunnel repair Hx of angioplasty History of cardiac catheterization History of coronary artery stent placement Hx of shoulder surgery Hx of sinus surgery Hx of nasal sinusotomy Hx of cystoscopy Hx of tonsillectomy History of thumb surgery Hx of right knee surgery Presence of coronary angioplasty implant and graft (~06/27/08) History of hernia repair Social History household members: significant other and children Smoking Status: Current every day smoker tobacco type: cigarettes and smokeless tobacco alcohol intake: never substance use type: does not use caffeine: Yes Type: coffee Number of servings: 3 what type of physical activity do you participate in: walking frequency: daily duration: 45-60 minutes/day seatbelt use: always do you feel safe at home: Yes ROS ROS ED Constitutional Constitutional ED: Denies chills, fever(s) or sweats Eyes Eyes: Denies change in vision ENT ENT ED: Denies dysphagia or sore throat Cardiovascular Cardiovascular: Denies chest pain, leg edema, palpitations or racing heartbeat Respiratory/Chest Respiratory/Chest: Reports cough and dyspnea; Denies dyspnea on exertion Gastrointestinal Gastrointestinal: Denies abdominal pain, diarrhea, nausea or vomiting Genitourinary Genitourinary ED: Denies dysuria, hematuria or urinary frequency Musculoskeletal Musculoskeletal: Denies back pain, extremity pain or neck pain Integumentary Denies rash or wounds Neurologic Neurologic: Denies headache(s), paresthesias or weakness EXAM Physical Exam Const Vital Signs: 05/04/24 17:15 05/04/24 17:16 05/04/24 17:16 Temperature 97 F L Temperature Source Temporal Pulse Rate 108 H Respiratory Rate 18 24 H Respiratory Effort Respiratory Pattern Blood Pressure 128/83 H Blood Pressure Mean 98 Pulse Ox 91 Oxygen Delivery Method Room Air Nasal Cannula Nasal Cannula Oxygen Flow Rate (L/min) 2 2 05/04/24 17:48 05/04/24 18:00 05/04/24 18:00 Temperature Temperature Source Pulse Rate 101 H Respiratory Rate 20 H Respiratory Effort Labored Respiratory Pattern Tachypnea Blood Pressure Blood Pressure Mean Pulse Ox 95 Oxygen Delivery Method Nasal Cannula Nasal Cannula Oxygen Flow Rate (L/min) 2 2 05/04/24 18:16 05/04/24 19:00 05/04/24 19:14 Temperature 98.7 F 98.6 F Temperature Source Temporal Oral Pulse Rate 92 103 H Respiratory Rate 24 H 23 H Respiratory Effort Respiratory Pattern Blood Pressure 121/65 H 112/76 Blood Pressure Mean 83 88 Pulse Ox 95 96 93 Oxygen Delivery Method Room Air Nasal Cannula Room Air Oxygen Flow Rate (L/min) 2 2 05/04/24 20:00 05/04/24 21:00 05/04/24 21:18 Temperature 98.5 F 98.5 F 98 F Temperature Source Oral Oral Pulse Rate 96 91 92 Respiratory Rate 21 H 17 19 H Respiratory Effort Respiratory Pattern Blood Pressure 109/68 107/79 107/79 Blood Pressure Mean 81 88 88 Pulse Ox 92 98 94 Oxygen Delivery Method Room Air Room Air Oxygen Flow Rate (L/min) Positive well nourished and well developed Constitutional Narrative: 2 L nasal cannula no respiratory distress. General Appearance ED: well developed and NAD HEENT Reports moist mucous membranes normocephalic and atraumatic Eyes EOMs intact bilaterally and conjunctivae normal General Eye ED: Yes normal appearance of both eyes Neck no lymphadenopathy and supple General: Negative for tenderness Chest Wall Chest: Negative for tenderness Resp normal respiratory effort and normal air movement Resp Narrative: Mild expiratory wheeze in all 4 quadrants. Effort and Inspection: symmetric chest movement; Negative for respiratory distress Cardio regular rhythm and no murmurs Rate: tachycardic Peripheral Pulses: pulses 2+ throughout GI normal to inspection, nondistended, normoactive bowel sounds and non-tender Palpation: Negative for guarding or rebound tenderness present Back/Spine no CVA tenderness and no thoracic nor lumbar tenderness Extremity normal to inspection General Extremety ED: Negative for edema or tenderness General Extremity: Negative for edema Neuro oriented x3 and no sensory deficits noted Sensorium / Orientation: awake and alert Skin no rashes or lesions noted and no wounds MDM MDM MDM Narrative Medical decision making narrative: Interventions / MDM: Differential diagnosis: COPD exacerbation, bronchospasms Diagnosis considered but do not suspect: Pneumonia however x-ray negative. My EKG interpretation: Sinus rhythm 97, no ST or T wave changes. Imaging independently reviewed and interpreted by myself: 2 view chest x-ray: No acute process also read radiology. External documents reviewed: N/A Test considered but not ordered:N/A ED course: Patient expiratory wheeze on exam. He was 91% on arrival he was placed on oxygen per nursing protocol. Will give aerosol treatment steroids. Chest x-ray labs ordered. Will reevaluate after treatment. Reevaluation wheezing improved with only slight inspiratory he is clinically feeling better. He is off oxygen. Chest x-ray negative. Labs are all stable. Slight hemolyzed potassium. His creatinine is normal. Do not feel repeat potassium is necessary. EKG with no acute findings. Patient ambulated, per nursing briefly to 90% however clinically states no worsening symptoms he was placed on a pulse ox and earlobe which was 100%. Considered admission however clinically feeling better. I discussed strict return precautions. He started on antibiotics for treatment according to gold's criteria for COPD. Antibiotic and steroids for additional 4 more days. He will continue aerosol treatments. All questions were answered. Re-evaluation: stable Disposition discussed with patient/family/significant other: Patient and family Case discussed with consulting clinician: N/A This note was generated with [email or web address] dictation software. It may contain incorrect words, spelling, and punctuation that were not noted in checking the note before signing. Lab Data Attestation: I reviewed the patient's lab results. Labs: Laboratory Results - last 24 hr 05/04/24 17:30 WBC 6.1 RBC 4.92 Hgb 14.7 Hct 45.0 MCV 91.5 MCH 29.9 MCHC 32.7 RDW Std Deviation 45.9 H RDW Coeff of [place] 13.5 Plt Count 300 MPV 9.3 Immature Gran % (Auto) 1.100 H Neut % (Auto) 64.4 Lymph % (Auto) 15.8 L [place] % (Auto) 11.7 H Eos % (Auto) 6.2 H Baso % (Auto) 0.8 Absolute Neuts (auto) 3.9 Absolute Lymphs (auto) 0.96 Nucleated RBC % 0 Sodium 135 L Potassium 5.3 H Chloride 105 Carbon Dioxide 24.0 Anion Gap 6 BUN 14 Creatinine 0.93 Est GFR (MDRD) Af Amer 106 Est GFR (MDRD) Non-Af 88 BUN/Creatinine Ratio 15.1 Glucose 128 H Calcium 9.2 Troponin I High Sens 9 Radiography Diagnostic Testing: Clinical Impression(s) from Imaging Studies Chest X-Ray 05/04/24 18:30 IMPRESSION: No radiographic evidence of acute cardiopulmonary disease. Electronically Signed: Bladimir Castañeda MD at 19:21 EDT Reading Location ID and State: [facility] / [place] Tel , Service support , Discharge Plan Triage Chief Complaint: Shortness of Breath ED Provider: Mele Campos Dx/Rx/DC Orders Clinical Impression: COPD exacerbation, Wheezing, Tobacco dependence Instructions: ED COPD Flare Prescriptions: New azithromycin 250 mg tablet 250 mg PO DAILY Qty: 4 0RF prednisone 20 mg tablet 60 mg PO DAILY Qty: 12 0RF No Action cyanocobalamin (vitamin B-12) 1,000 mcg tablet 1,000 mcg PO DAILY (DME) PEP device See Rx Instructions .ROUTE .MEDSUPPLY Rx Instructions: with training omeprazole 20 mg capsule,delayed release(DR/EC) 40 mg PO BID Qty: 120 1RF guaifenesin 1,200 mg tablet extended release 12hr 1,200 mg PO TID All Day Allergy (cetirizine) 10 mg capsule 10 mg PO DAILY PRN (Reason: allergy symptoms) fluticasone propionate [Flonase Allergy Relief] 50 mcg/actuation spray,suspension 2 spray intranasal DAILY Qty: 3 3RF Rx Instructions: administer into each nostril clopidogrel 75 MG tablet 75 mg PO QHS Patient Comments: BLOOD THINNER aspirin 81 mg Tablet,Delayed Release (Dr/Ec) 81 mg PO DAILY gabapentin 600 mg Tablet 600 mg PO QHS PRN (Reason: Pain) atorvastatin 20 mg Tablet 20 mg PO QHS lisinopril 2.5 mg Tablet 2.5 mg PO DAILY montelukast [Singulair] 10 mg Tablet 10 mg PO QHS cholecalciferol (vitamin D3) [Vitamin D3] 50 mcg (2,000 unit) Tablet 50 mcg PO DAILY Breztri Aerosphere 160-9-4.8 mcg/actuation Hfa Aerosol Inhaler 2 inh INHALATION BID ipratropium-albuterol 0.5 mg-3 mg(2.5 mg base)/3 mL solution for nebulization 3 ml inhalation Q6H PRN (Reason: shortness of breath/wheeze) Qty: 180 1RF albuterol sulfate 90 mcg/actuation HFA aerosol inhaler 2 puff INHALATION Q4H PRN (Reason: Asthma) Qty: 8.5 11RF albuterol sulfate 2.5 mg /3 mL (0.083 %) solution for nebulization 2.5 mg inhalation Q4H PRN (Reason: shortness of breath or wheezing) Qty: 180 11RF Primary Care Provider: Alexey Mayberry Referrals: Alexey Mayberry MD [Primary Care Provider] - 3-5 Days Activity Restrictions/Additional Instructions: Chest x-ray negative. Labs stable. COVID-negative. Take and finish antibiotic and steroids as prescribed. Continue your inhaler as needed. If you develop worsening symptoms, return to the ED for reevaluation. Otherwise follow-up with your PCP. Print Language: Divehi Disposition Disposition: Home, Self Care Discharge Date/Time: 05/04/24 21:19
--- NOTE | 2024-05-04 17:57 | EKG12_ITS ---
Test Reason : SOB Blood Pressure : / mmHG Vent. Rate : 097 BPM Atrial Rate : 097 BPM P-R Int : 124 ms QRS Dur : 076 ms QT Int : 362 ms P-R-T Axes : 077 -23 043 degrees QTc Int : 459 ms Normal sinus rhythm Low voltage QRS Inferior infarct , age undetermined Abnormal ECG Confirmed by LUZ RICE, SB ([id number]), editorial clerk MARI LAWSON ([id number]) on 05/05/2024 1:16:33 PM Referred By: Confirmed By:SB ESCOBAR MD
[2024-05-04] MEDS: Ipratropium/Albuterol Sulfate 3 ML AMPUL.NEB INHALATION (17:59)
[2024-05-04] MEDS: MethylPREDNISolone 125 MG/2 ML Vial IV (18:23)
[2024-05-04 18:25] LABS: Anion Gap 6 (5-15); BUN 14 mg/dL (7-18); BUN/Creat Ratio 15.1 RATIO (10-20); Calcium,Total 9.2 mg/dL (8.5-10.1); Chloride 105 mmol/L (98-107); Creatinine, Serum 0.93 mg/dL (0.70-1.30); EST Glomerular Filtration Rate 88 mL/min (>60); Est Glom Filt Rate - Afr Amer 106 mL/min (>60); Glucose 128 mg/dL (74-106); Potassium 5.3 mmol/L (3.5-5.1); Sodium Level 135 mmol/L (136-145); Troponin-I HS 9 pg/mL (3.0-78.0)
--- NOTE | 2024-05-04 18:30 | RAD_ITS ---
INDICATION: cough EXAMINATION/TECHNIQUE: X-RAY - XR Chest 2 Views COMPARISON: 04/14/2024 FINDINGS: LINES/DEVICES: None. LUNGS: No consolidation, edema or effusion. No pneumothorax. MEDIASTINUM AND CARDIOVASCULAR STRUCTURES: Cardiac silhouette not enlarged. Central airways and mediastinal contour are unremarkable. BONES AND SOFT TISSUES: No acute changes. RAD/Chest PA and Lateral IMPRESSION: No radiographic evidence of acute cardiopulmonary disease. Electronically Signed: Bladimir Castañeda MD at 19:21 EDT ,
[2024-05-04] MEDS: Azithromycin 250 MG Tablet 500 MG PO (21:09)
== END 2024-05-04 21:19 | disposition home or self-care (01) ==
PROVIDERS: Emergency Provider Emergency Medicine; PCP Internal Medicine; Visit Provider Emergency Medicine
DX: R06.02 Shortness of breath (principal); J44.1 Chronic obstructive pulmonary disease with (acute) exacerbation; R06.2 Wheezing; I25.10 Atherosclerotic heart disease of native coronary artery without angina pectoris; I10 Essential (primary) hypertension; E78.00 Pure hypercholesterolemia, unspecified; I25.5 Ischemic cardiomyopathy; Z95.5 Presence of coronary angioplasty implant and graft; I25.2 Old myocardial infarction; Z79.02 Long term (current) use of antithrombotics/antiplatelets; Z79.82 Long term (current) use of aspirin; Z79.899 Other long term (current) drug therapy; Z79.51 Long term (current) use of inhaled steroids; K21.9 Gastro-esophageal reflux disease without esophagitis; F17.210 Nicotine dependence, cigarettes, uncomplicated; F17.220 Nicotine dependence, chewing tobacco, uncomplicated
CPT/HCPCS: 71046; 80048; 84484; 85025; 87635; 93005; 94640; 94760; 96374; 99282; J7030; J7050; A4216

== ENCOUNTER 2024-06-03 19:00 | Emergency (ER) | payer MEDICARE, MEDICAID, SELFPAY ==
[2024-06-03] VITALS (18 sets, daily range): BP systolic 93–157; BP diastolic 56–113; PULSE 103–130; RESP 12–30; TEMP 35.2–36.4; O2SAT 93–100; BMI 28.5
[2024-06-03] MEDS: Succinylcholine Chloride 200 MG/10 ML SYRINGE 100 MG IV (19:03)
[2024-06-03] MEDS: Etomidate 20 MG/10 ML Vial IV (19:03)
[2024-06-03] MEDS: Ondansetron 4 MG/2 ML Vial IV (19:04)
--- NOTE | 2024-06-03 19:04 | ED.RN ---
Pt intubated, agitated/restless, attempted to pull at tubes.
--- NOTE | 2024-06-03 19:07 | EKG12_ITS ---
Test Reason : Blood Pressure : / mmHG Vent. Rate : 123 BPM Atrial Rate : 123 BPM P-R Int : 112 ms QRS Dur : 080 ms QT Int : 312 ms P-R-T Axes : 083 -33 082 degrees QTc Int : 446 ms Sinus tachycardia Left axis deviation Pulmonary disease pattern Inferior infarct (cited on or before 19-MAR-2023) Abnormal ECG Confirmed by SB ESCOBAR MD ([id number]), editor managing director THERESA OLIVEIRA ([id number]) on 06/05/2024 6:26:23 AM Referred By: Confirmed By:SB ESCOBAR MD
[2024-06-03] MEDS: 0.9% Normal Saline (1000mL) 1,000 ML 999 ML IV ×2 (19:10→20:45)
[2024-06-03] MEDS: fentaNYL 100 MCG/2 ML Ampul IV (19:14)
--- NOTE | 2024-06-03 19:16 | EX.ED.DYSGE1 ---
HPI History of Present Illness Chief Complaint: Unresponsive [facility] Medical History Wears dentures Wears glasses History of steroid therapy Arthritis High cholesterol Back pain History of hiatal hernia History of ulceration Gastric reflux Smoker Sleep apnea Hypertension Emphysema, unspecified Asthma Shortness of breath on exertion History of pain when walking History of echocardiogram History of stress test Cardiology follow-up encounter History of heart attack GERD (gastroesophageal reflux disease) Dysphagia Smoking greater than 40 pack years Wheezing on auscultation Hypersomnia Bronchiectasis Asthma-COPD overlap syndrome Stage 2 moderate COPD by GOLD classification COPD exacerbation BPH (benign prostatic hyperplasia) Paroxysmal atrial tachycardia Paroxysmal ventricular tachycardia Premature ventricular contraction Presence of stent in coronary artery (~06/27/08) Old myocardial infarction Septic shock Atherosclerotic heart disease of [place] coronary artery without angina pectoris Ischemic cardiomyopathy HLD (hyperlipidemia) CAD (coronary artery disease) COPD (chronic obstructive pulmonary disease) History of pulmonary embolism Nicotine abuse Dyspepsia and disorder of function of stomach Home Medications ?Medication ?Instructions ?Recorded ?Last Taken ?Type clopidogrel 75 mg tablet 75 mg PO QHS blood thinner 06/16/13 11/27/22 History cyanocobalamin (vitamin B-12) 1,000 mcg PO DAILY vitamin 10/15/17 12/11/21 History 1,000 mcg tablet aspirin 81 mg tablet,delayed 81 mg PO DAILY HEALTH MAINTENTANCE 12/12/21 11/26/22 History release atorvastatin 20 mg tablet 20 mg PO QHS CHOLESTEROL 12/12/21 Unknown History cholecalciferol (vitamin D3) 50 50 mcg PO DAILY SUPPLEMENT 12/12/21 Unknown History mcg (2,000 unit) tablet (Vitamin D3) gabapentin 600 mg tablet 600 mg PO QHS PRN Pain 12/12/21 Unknown History lisinopril 2.5 mg tablet 2.5 mg PO DAILY BLOOD PRESSURE 12/12/21 11/29/22 History montelukast 10 mg tablet 10 mg PO QHS BREATHING 12/12/21 Unknown History (Singulair) PEP device 01/30/22 Unknown History budesonide 160 mcg-glycopyr 9 2 inh inhalation BID 11/28/22 Unknown History mcg-formot 4.8 mcg/actuation HFA inhaler (Breztri Aerosphere) omeprazole 20 mg capsule,delayed 40 mg (2 x 20 mg) PO BID #120 caps 12/20/22 Unknown Rx release albuterol sulfate 2.5 mg/3 mL 2.5 mg (3 mL) inhalation Q4H PRN 09/26/23 Unknown Rx (0.083 %) solution for nebulization shortness of breath or wheezing #180 mL albuterol sulfate 90 mcg/actuation 2 puff inhalation Q4H PRN Asthma 09/26/23 Unknown Rx aerosol inhaler #8.5 grams cetirizine 10 mg capsule (All Day 10 mg PO DAILY PRN allergy symptoms 02/14/24 Unknown History Allergy (cetirizine)) fluticasone propionate 50 2 spray intranasal DAILY #3 ea 02/14/24 Unknown Rx mcg/actuation nasal spray,suspension (Flonase Allergy Relief) guaifenesin 1,200 mg tablet, 1,200 mg PO TID 04/09/24 Unknown History extended release 12 hr ipratropium 0.5 mg-albuterol 3 mg 3 ml inhalation Q6H PRN shortness 06/02/24 Unknown Rx (2.5 mg base)/3 mL nebulization of breath/wheeze #180 mL soln Allergy/AdvReac Type Severity Reaction Status Date / Time latex Allergy Rash Verified 05/04/24 17:15 varenicline tartrate (From Allergy Hives Verified 05/04/24 17:15 Chantix) aspirin AdvReac Upset Verified 05/04/24 17:15 Stomach Family History Father , age 50 CAD (coronary artery disease) Heart disease Myocardial infarction Mother Diabetes Brother Hypertension Family History unable to obtain Surgical History Hx of carpal tunnel repair Hx of angioplasty History of cardiac catheterization History of coronary artery stent placement Hx of shoulder surgery Hx of sinus surgery Hx of nasal sinusotomy Hx of cystoscopy Hx of tonsillectomy History of thumb surgery Hx of right knee surgery Presence of coronary angioplasty implant and graft (~06/27/08) History of hernia repair Social History household members: significant other and children Smoking Status: Current every day smoker tobacco type: cigarettes and smokeless tobacco alcohol intake: never substance use type: does not use caffeine: Yes Type: coffee Number of servings: 3 what type of physical activity do you participate in: walking frequency: daily duration: 45-60 minutes/day seatbelt use: always do you feel safe at home: Yes EXAM Physical Exam Const Vital Signs: 06/03/24 19:02 06/03/24 19:06 06/03/24 19:13 Temperature 96.8 F L Temperature Source Temporal Pulse Rate 130 H Respiratory Rate 16 Respiratory Effort Mechanically Ventilated Blood Pressure 157/113 H Blood Pressure Mean 127 Pulse Ox 93 98 Oxygen Delivery Method Ambu-Bag Mechanical Ventilator Mechanical Ventilator Fraction of Inspired Oxygen (FIO2) 100 06/03/24 19:15 Temperature Temperature Source Pulse Rate Respiratory Rate Respiratory Effort Agonal Blood Pressure Blood Pressure Mean Pulse Ox Oxygen Delivery Method Fraction of Inspired Oxygen (FIO2) MDM MDM MDM Narrative Medical decision making narrative: HISTORY OF PRESENT ILLNESS: 63-year-old male presents after being found down. Per EMS patient was having difficulty breathing all day using extra breathing treatments. He they note he went to his home and sat down and became unresponsive upon their arrival. They note he had agonal respirations breathing at 4-6 times a minute. The patient then lost pulses. This prompted CPR which patient received 4 rounds of epinephrine, chest compressions, they placed igel and began bagging the patient and transfer him to the emergency department. Upon arrival patient was unresponsive with agonal respirations. He cannot precipitate in history. REVIEW OF SYSTEMS: Cannot obtain reliable review of system as patient was unresponsive PHYSICAL EXAM: Nursing triage notes reviewed, Vital signs reviewed Constitutional: please see mdm HENT: MMM Eyes: Pupils approximate 2 mm sluggishly reactive Neck: N no obvious JVD Lungs: Diminished breath sounds bilaterally Heart: Fast rate, 2+ pulses in all 4 extremities Abdomen: Soft, there is no tenderness no apparent rigidity no auscultated abdominal bruit : Normal-appearing genitalia Extremities: No edema, warm Neuro: No obvious pupillary response, no obvious movement in his extremities, unable to assess sensation, intact cough and gag reflex Skin: Slightly pale MEDICAL DECISION MAKING: Chief Complaint: Unresponsive External records reviewed: Reviewed prior outpatient records, reviewed prior pulmonology visit Factors affecting care: COPD exacerbation Social determinants of health: [id number] smoking history History obtained from others: EMS Consults: Internal medicine, ICU MDM Narrative: Patient was initially tachycardic at a rate of 130, hypertensive with a blood pressure 157 /113 he was unresponsive breathing agonal he. He is intubated immediately for airway protection expected clinical course. Please see below procedure note. OG Albright placed, 2 large-bore IVs placed. 1 L normal saline given for immediate cessation 4 mg Zofran given for nausea vomiting control. Ventilator settings reviewed. I considered the following differential diagnosis: Respiratory arrest, arrhythmia, myocardial ischemia, COVID, CHF, COPD, PE, CO2 retention I obtained a broad lab and imaging workup to further elucidate etiology of the patient's complaints. Initially obtained an x-ray of the chest and an abdomen to assure proper tube placement. I then had a CT of the chest rule out PE ALL IMAGES (IF OBTAINED) HAVE BEEN PERSONALLY REVIEWED AND INTERPRETED BY MYSELF. EKG with sinus tachycardia rate of 123, normal axis, normal intervals, no obvious STEMI ABG with signs of significant respiratory acidosis with pH 6.9, significant CO2 retention suggest acute retention concern for acute respiratory arrest Initial lactate elevated consistent with endorgan hypoperfusion likely from hypoxia from respiratory arrest rather than sepsis High-sensitivity troponin is negative, no evidence of myocardial ischemia Initial BNP within normal limits suggestive of no increased ventricular stretch or heart failure BMP without significant lecture normalities, noted metabolic acidosis likely secondary to CO2 retention and lactic acidosis, no evidence of endorgan hypoperfusion the normal anion gap, no acute kidney injury Initial chest x-ray was read reviewed person myself with adequate placement of ET tube, suboptimal placement of NG tube will advance NG tube. Chest x-ray after NG tube was advanced showed adequate placement of ET tube and NG tube. CT of the chest showed no evidence of obvious pulmonary embolism, showed right-sided rib fractures and a pneumothorax likely secondary to chest compressions. There is no evidence of aortic dissection Post chest tube placement showed adequate placement of chest tube, improvement in pneumothorax ABG after approximately 1 hour on the ventilator showed improvement in pH and CO2 retention Given unresponsiveness, requirement for intertrigo intubation, chest tube placement patient will require admission for ongoing ventilatory support, chest tube management. Discussed with hospitalist Dr. Adler who conditionally agreed admit the patient if the general surgeon on-call agreed to manage patient's chest tube. Discussed the case with Dr. Plummer of general surgeon on-call who felt the patient needed higher level care given multiple rib fractures. Discussed with Dr. Gresham (ER physician) at [facility] agreed to except patient ER to ER transfer to receive definitive trauma evaluation. Discussed with the patient's son to receive consent to transfer to nearest trauma center. Son gave consent. Patient was transferred in stable condition. Signed out to overnight physician pending transfer to nearest trauma center. The procedure was performed by myself. Indications: Respiratory arrest Procedure Description: Patient was preoxygenated with an iGel, sedated and paralyzed with etomidate (20 mg), succinylcholine (100 mg), use video laryngoscopy with a size 4 MAC blade, Grade 1 view of the cords, intubated with an 8-0. First-pass success. Post-Procedure Assessment: Tracheal intubation was confirmed with breath sounds auscultated equally bilaterally; appropriate color change with end tidal CO2 detector and waveform capnography. The patient tolerated the procedure well with no immediate complications. Procedure: chest tube placement Consent: Healthcare agent Indications: Pneumothorax Time out: A time out was performed The right chest wall was washed with Betadine/chlorhexadine and allowed to dry. The patient was sterilely prepped. Chest landmarks and appropriate laterality was confirmed and identified. Using the standard technique a right sided 8 Armenian chest tube was placed and sutured into place. A bella of air was heard when I entered the pleural space. Petroleum gauze placed and then chest tube secured. My independent interpretation of the post chest tube placement x-ray demonstrates adequate placement of the chest tube. There is improvement of the pneumothorax. The patient and/or family, caregivers express understanding. The patient and/or family, caregivers agrees with the plan. Shared decision making: I will have a discussion with the patient and or visitors regarding risk/benefits of further testing or admission. They will be made aware of of the risk/benefits inherent in this decision they will be given the opportunity to voice understanding. Total critical care time today provided was at least 60 minutes. This excludes separately billable procedures. Critical care time (if documented) is secondary to the patient having high probability of clinically significant/life threatening deterioration in the patient's condition which required my urgent intervention. Impression: 1. Acute hypoxic, hypercapnic respiratory failure 2. History of COPD 3. Pneumothorax Dispo: Admit to ICU This note was generated with [employer] dictation software. It may contain incorrect words, spelling, and punctuation that were not noted in review of the chart prior to signing. Discharge Plan Triage Chief Complaint: Unresponsive ED Provider: Jerson Whitehead Dx/Rx/DC Orders Prescriptions: No Action cyanocobalamin (vitamin B-12) 1,000 mcg tablet 1,000 mcg PO DAILY (DME) PEP device See Rx Instructions .ROUTE .MEDSUPPLY Rx Instructions: with training omeprazole 20 mg capsule,delayed release(DR/EC) 40 mg PO BID Qty: 120 1RF guaifenesin 1,200 mg tablet extended release 12hr 1,200 mg PO TID All Day Allergy (cetirizine) 10 mg capsule 10 mg PO DAILY PRN (Reason: allergy symptoms) fluticasone propionate [Flonase Allergy Relief] 50 mcg/actuation spray,suspension 2 spray intranasal DAILY Qty: 3 3RF Rx Instructions: administer into each nostril clopidogrel 75 MG tablet 75 mg PO QHS Patient Comments: BLOOD THINNER aspirin 81 mg Tablet,Delayed Release (Dr/Ec) 81 mg PO DAILY gabapentin 600 mg Tablet 600 mg PO QHS PRN (Reason: Pain) atorvastatin 20 mg Tablet 20 mg PO QHS lisinopril 2.5 mg Tablet 2.5 mg PO DAILY montelukast [Singulair] 10 mg Tablet 10 mg PO QHS cholecalciferol (vitamin D3) [Vitamin D3] 50 mcg (2,000 unit) Tablet 50 mcg PO DAILY Breztri Aerosphere 160-9-4.8 mcg/actuation Hfa Aerosol Inhaler 2 inh INHALATION BID albuterol sulfate 90 mcg/actuation HFA aerosol inhaler 2 puff INHALATION Q4H PRN (Reason: Asthma) Qty: 8.5 11RF albuterol sulfate 2.5 mg /3 mL (0.083 %) solution for nebulization 2.5 mg inhalation Q4H PRN (Reason: shortness of breath or wheezing) Qty: 180 11RF ipratropium-albuterol 0.5 mg-3 mg(2.5 mg base)/3 mL solution for nebulization 3 ml inhalation Q6H PRN (Reason: shortness of breath/wheeze) Qty: 180 1RF Primary Care Provider: Alexey Mayberry Referrals: Alexey Mayberry MD [Primary Care Provider] - Print Language: Finnish
[2024-06-03 19:19] LABS: Hematocrit 41.3 % (40-54); Hemoglobin 12.4 g/dL (13.0-16.5); Mean Corpuscular Hgb 29.5 pg (27.0-32.0); Mean Corpuscular Volume 98.1 fL (80-94); Mean Platelet Vol. 9.5 fl (6.2-12.0); POSITIVE COUNT YES; POSITIVE MORPHOLOGY YES; Platelet Count 322 K/mm3 (150-450); RBC Distribution Width CV 13.2 % (11.6-14.6); RBC Distribution Width SD 47.5 fl (35.1-43.9); Red Blood Count 4.21 M/mm3 (4.6-6.2)
[2024-06-03 19:24] LABS: Differential Indicated MANUAL DIFF
--- NOTE | 2024-06-03 19:25 | RAD_ITS ---
INDICATION: OG tube placement EXAMINATION/TECHNIQUE: X-RAY - XR Chest 1 View COMPARISON: FINDINGS: LINES/DEVICES: Endotracheal tube and good position. There is a gastric tube in stomach.. LUNGS: Mild basilar infiltrates/atelectasis. Mild right pneumothorax. MEDIASTINUM AND CARDIOVASCULAR STRUCTURES: Cardiac silhouette not enlarged. Central airways and mediastinal contour are unremarkable. BONES AND SOFT TISSUES: Unremarkable. RAD/CXR for Line Placement IMPRESSION: Mild basilar infiltrates/atelectasis. Mild right pneumothorax. Nasogastric tube in the stomach. Electronically Signed: Fritz Chung DO at 20:36 EDT Reading Location ID and State: [facility] / [place] Tel [phone], Service support ,
--- NOTE | 2024-06-03 19:25 | RAD_ITS ---
INDICATION: tube placement EXAMINATION/TECHNIQUE: X-RAY - XR Chest 1 View COMPARISON: FINDINGS: LINES/DEVICES: Endotracheal tube with tip 65 mm above the luli. Nasogastric tube with tip in the mid esophagus.. LUNGS: Possible mild patchy infiltrates/atelectasis at the lung bases. There is a right pneumothorax. MEDIASTINUM AND CARDIOVASCULAR STRUCTURES: Cardiac silhouette not enlarged. Central airways and mediastinal contour are unremarkable. BONES AND SOFT TISSUES: Right rib fractures. Old left rib fractures. RAD/Chest 1 View (Portable) IMPRESSION: Nasogastric tube in the mid esophagus. It needs to be advanced by another 20 cm. Possible mild patchy infiltrates/atelectasis at the lung bases. There is a right pneumothorax. Right rib fractures. Electronically Signed: Fritz Chung DO at 20:34 EDT ,
[2024-06-03] MEDS: fentaNYL drip 100 ML 5 MCG CONT INF (19:28)
--- NOTE | 2024-06-03 19:29 | CT_ITS ---
We are attempting to reach an attending provider to discuss findings. An addendum with communication details will be sent when the communication is complete. STUDY: CTA CHEST REASON FOR EXAM: Male, 63 years old. respiratory arrest, r/o PE RADIATION DOSAGE (If Supplied By Facility): CTDIvol = ( 13.99 ) mGy, DLP = ( 479.30 ) mGycm TECHNIQUE: The examination was performed with the intravenous administration of IV 100mL [id number]-370. Post-processing of the angiographic images was performed, with multiplanar reformation and 3D reconstruction. The protocol utilizes one or more of the following dose reduction techniques: automated exposure control, adjustment of mA and/or kV according to patient size,and/or use of iterative reconstruction technique. COMPARISON: FINDINGS: Endotracheal tube in place with tip above the luli. Normal enhancement of the main pulmonary artery and right and left pulmonary arteries. Normal enhancement of the bilateral peripheral pulmonary arteries. There is no demonstrated pulmonary embolism. Normal thoracic aorta and visualized great vessels. There is no demonstrated aortic dissection. Normal heart and pericardium. Mild adenopathy in the mediastinum. Normal hilar regions. Normal visualized trachea and bronchi. Emphysematous changes and mild basilar infiltrates bilaterally. Right pneumothorax, approximately 20%. . Normal pleura. Normal chest wall structures. Old left clavicular and rib fractures. Fracture of the right fourth through ninth ribs. The seventh rib demonstrates 2 sites of fractures. Nasogastric tube in the stomach. CT/CTA Chest W/WO Contrast IMPRESSION: No demonstrated pulmonary embolism or arterial dissection. Mild adenopathy in the mediastinum. Emphysematous changes and mild basilar infiltrates bilaterally. Right pneumothorax, approximately 20%. . Right rib fractures. Electronically Signed: Fritz Chung DO at 20:26 EDT Reading Location ID and State: [facility] / [place] Tel [phone], Service support ,
[2024-06-03 19:36] LABS: Anion Gap 12 (5-15); BUN 7 mg/dL (7-18); BUN/Creat Ratio 5.6 RATIO (10-20); Calcium,Total 8.2 mg/dL (8.5-10.1); Chloride 106 mmol/L (98-107); Creatinine, Serum 1.24 mg/dL (0.70-1.30); EST Glomerular Filtration Rate 63 mL/min (>60); Est Glom Filt Rate - Afr Amer 76 mL/min (>60); Estimated Creatinine Clearance 65.67 ml/min; Glucose 285 mg/dL (74-106); Sodium Level 139 mmol/L (136-145); Troponin-I HS 22 pg/mL (3.0-78.0)
[2024-06-03 19:39] LABS: Differential Comment MANUAL
[2024-06-03 19:43] LABS: BNP,B-Type NATRIURETIC PEPTIDE 50.9 pg/mL (0-100)
[2024-06-03 19:45] LABS: Allen Test Positive; Base Excess -12 mmol/L (-2 to +2); Bicarbonate 19.9 mmol/L (22-26); Blood Gas Specimen Type ART; Mode AC; O2 Delivery Device Adult Vent; PEEP 5; PO2 368 mmHG (75-100); RR 12; SITE L Radial; SO2 100 % (95-99); Total Carbon Dioxide 23 mmol/L; pCO2 90.2 mmHg (35-45); pH 6.95 (7.35-7.45)
[2024-06-03 19:56] LABS: Basophil 1 % (0-1); Eosinophil 2 % (0-5); Lymphocyte 42 % (19-41); Metamyelocyte 2 % (0-1); Monocyte 10 % (0-10); Neutrophil-Band 6 % (0-5); Neutrophil-Segmented 35 % (47-70); Promyelocyte 2 % (0-0); Total Cells Counted 100 (MANUAL DIFF)
[2024-06-03 19:57] LABS: Atypical Lymphocyte 1+ %; Platelet Morphology LARGE; Reactive Lymphocyte 2+; Toxic Granulation 1+
[2024-06-03 19:58] LABS: Platelet Estimate ADEQUATE (ADEQ)
[2024-06-03 20:00] LABS: Red Cell Morphology NORM C+C NORMAL (NORM C&C)
[2024-06-03 20:01] LABS: Absolute Lymphocyte Count 5.48 X10^3/uL (0.83-4.51)
[2024-06-03 20:02] LABS: Lactic Acid 6.7 mmol/L (0.4-1.9)
[2024-06-03 20:02] LABS: Absolute Neutrophil Count 5.3 X10^3/uL (2.0-7.7)
[2024-06-03] MEDS: Ipratropium/Albuterol Sulfate 3 ML AMPUL.NEB INHALATION (20:14)
--- NOTE | 2024-06-03 20:20 | ED.RN ---
Per Dr. Whitehead, pt fentanyl increased to 75 mcg to decrease pain and movement on ventilator at 1946.
[2024-06-03] MEDS: Sodium Bicarbonate 8.4% 50 ML Syringe 50 MEQ IV (20:28)
[2024-06-03] MEDS: Midazolam 5 MG/ML Syringe IV ×2 (20:35→21:37)
--- NOTE | 2024-06-03 20:50 | RAD_ITS ---
INDICATION: CHEST TUBE PLACEMENT EXAMINATION/TECHNIQUE: X-RAY - XR Chest 1 View COMPARISON: FINDINGS: LINES/DEVICES: Endotracheal tube and nasogastric tube in good position. There is a chest tube at the right lung base. LUNGS: No consolidation, edema or effusion. Reduction of right pneumothorax. The lung apex is not included. MEDIASTINUM AND CARDIOVASCULAR STRUCTURES: Cardiac silhouette not enlarged. Central airways and mediastinal contour are unremarkable. BONES AND SOFT TISSUES: Subcutaneous emphysema of the right lateral chest wall. Right rib fractures. RAD/Chest 1 View (Portable) IMPRESSION: Placement of a chest tube with reduction of right pneumothorax. Electronically Signed: Fritz Chung DO at 21:18 EDT ,
[2024-06-03 21:13] LABS: Allen Test Positive; Base Excess -6 mmol/L (-2 to +2); Bicarbonate 23.2 mmol/L (22-26); Blood Gas Specimen Type ART; Mode AC; O2 Delivery Device Adult Vent; PEEP 5; PO2 67 mmHG (75-100); RR 18; SITE R Radial; SO2 85 % (95-99); Total Carbon Dioxide 26 mmol/L; pCO2 72.4 mmHg (35-45); pH 7.12 (7.35-7.45)
--- NOTE | 2024-06-03 21:25 | ED.RN ---
Pt bucking vent. Verbal order from Dr. Whitehead at bedside to increases Fentanyl drip to max 200mcg/hr.
--- NOTE | 2024-06-03 21:40 | PCM.HP.STD ---
HPI - General General Date of Service: 06/03/24 Chief Complaint: Dyspnea. HPI Narrative The patient is a 63 y/o M w/ PMHx: Chronic dysphagia, Tobacco use, GERD, HTN, HLD, COPD/Asthma, CAD s/p PCI s/p angioplasty/PCI RCA 06/27/2008 Renee, VIVI, BPH, Hx VTE (DVT, PE) who presents to the [facility] ED on 06/03/24 with history of having dyspnea and wheezing throughout the day worsening in the evening despite using additional extra breathing treatments at home prompting EMS call secondary to ongoing issues as well as noted hypoxia per patient with patient noted to be unresponsive upon their arrival reporting agonal respirations breathing 4-6 times per minute with a pulse at that time which was then unfortunately lost prompting CPR in the field with administration of 4 rounds of epinephrine and chest compressions eventually bagging the patient and transition to the ED. Workup in the ED included T96.8 Temporally, heart rate 130, BP 157/113, respiratory rate 16 broaden with Ambu bag noted to be 93% unresponsive eventually intubated with most recent repeat vital signs heart rate 122, BP 113/67, respiratory rate 16, 97% intubated with 100% FiO2, CBC with WBC 13, hemoglobin 12.4, MCV 98.1, platelets 322 with significant lymphocytosis, ABG with pH 6.95, bicarb 19.9, total CO2 23, O2 saturation 100%, pCO2 90.2, pO2 368 performed on ventilated status, BMP with carbon oxide 20, anion gap 12, BUN/Drake 7/1.24, glucose 285, lactic acid 6.7, calcium 8.2, troponin 22, BNP 50.9, chest x-ray with mild basilar infiltrates/atelectasis, mild right pneumothorax, NG tube in stomach, ET tube approximately 655 mm above the luli, evidence of right r sided ib fractures, chest CTA no demonstrated PE or arterial dissection, mild adenopathy in the mediastinum, emphysematous changes and mild basilar infiltrates bilaterally, right pneumothorax approximately 20% with right 4th through 9th, seventh rib with 2 demonstrated fracture sites, repeat CXR w/ placement of a chest tube with reduction of right pneumothorax, blood culture x 2 pending per ED, rapid SARS COVID/influenza/RSV negative, EKG with sinus tachycardia with no acute evidence of ischemia. [facility] Medical History Wears dentures Wears glasses History of steroid therapy Arthritis High cholesterol Back pain History of hiatal hernia History of ulceration Gastric reflux Smoker Sleep apnea Hypertension Emphysema, unspecified Asthma Shortness of breath on exertion History of pain when walking History of echocardiogram History of stress test Cardiology follow-up encounter History of heart attack GERD (gastroesophageal reflux disease) Dysphagia Smoking greater than 40 pack years Wheezing on auscultation Hypersomnia Bronchiectasis Asthma-COPD overlap syndrome Stage 2 moderate COPD by GOLD classification COPD exacerbation BPH (benign prostatic hyperplasia) Paroxysmal atrial tachycardia Paroxysmal ventricular tachycardia Premature ventricular contraction Presence of stent in coronary artery (~06/27/08) Old myocardial infarction Septic shock Atherosclerotic heart disease of [place] coronary artery without angina pectoris Ischemic cardiomyopathy HLD (hyperlipidemia) CAD (coronary artery disease) COPD (chronic obstructive pulmonary disease) History of pulmonary embolism Nicotine abuse Dyspepsia and disorder of function of stomach Home Medications ?Medication ?Instructions ?Recorded ?Last Taken ?Type clopidogrel 75 mg tablet 75 mg PO QHS blood thinner 06/16/13 11/27/22 History cyanocobalamin (vitamin B-12) 1,000 mcg PO DAILY vitamin 10/15/17 12/11/21 History 1,000 mcg tablet aspirin 81 mg tablet,delayed 81 mg PO DAILY HEALTH MAINTENTANCE 12/12/21 11/26/22 History release atorvastatin 20 mg tablet 20 mg PO QHS CHOLESTEROL 12/12/21 Unknown History cholecalciferol (vitamin D3) 50 50 mcg PO DAILY SUPPLEMENT 12/12/21 Unknown History mcg (2,000 unit) tablet (Vitamin D3) gabapentin 600 mg tablet 600 mg PO QHS PRN Pain 12/12/21 Unknown History lisinopril 2.5 mg tablet 2.5 mg PO DAILY BLOOD PRESSURE 12/12/21 11/29/22 History montelukast 10 mg tablet 10 mg PO QHS BREATHING 12/12/21 Unknown History (Singulair) PEP device 01/30/22 Unknown History budesonide 160 mcg-glycopyr 9 2 inh inhalation BID 11/28/22 Unknown History mcg-formot 4.8 mcg/actuation HFA inhaler (Breztri Aerosphere) omeprazole 20 mg capsule,delayed 40 mg (2 x 20 mg) PO BID #120 caps 12/20/22 Unknown Rx release albuterol sulfate 2.5 mg/3 mL 2.5 mg (3 mL) inhalation Q4H PRN 09/26/23 Unknown Rx (0.083 %) solution for nebulization shortness of breath or wheezing #180 mL albuterol sulfate 90 mcg/actuation 2 puff inhalation Q4H PRN Asthma 09/26/23 Unknown Rx aerosol inhaler #8.5 grams cetirizine 10 mg capsule (All Day 10 mg PO DAILY PRN allergy symptoms 02/14/24 Unknown History Allergy (cetirizine)) fluticasone propionate 50 2 spray intranasal DAILY #3 ea 02/14/24 Unknown Rx mcg/actuation nasal spray,suspension (Flonase Allergy Relief) guaifenesin 1,200 mg tablet, 1,200 mg PO TID 04/09/24 Unknown History extended release 12 hr ipratropium 0.5 mg-albuterol 3 mg 3 ml inhalation Q6H PRN shortness 06/02/24 Unknown Rx (2.5 mg base)/3 mL nebulization of breath/wheeze #180 mL soln Allergy/AdvReac Type Severity Reaction Status Date / Time latex Allergy Rash Verified 05/04/24 17:15 varenicline tartrate (From Allergy Hives Verified 05/04/24 17:15 Chantix) aspirin AdvReac Upset Verified 05/04/24 17:15 Stomach Family History Father , age 50 CAD (coronary artery disease) Heart disease Myocardial infarction Mother Diabetes Brother Hypertension Family History unable to obtain Surgical History Hx of carpal tunnel repair Hx of angioplasty History of cardiac catheterization History of coronary artery stent placement Hx of shoulder surgery Hx of sinus surgery Hx of nasal sinusotomy Hx of cystoscopy Hx of tonsillectomy History of thumb surgery Hx of right knee surgery Presence of coronary angioplasty implant and graft (~06/27/08) History of hernia repair Social History household members: significant other and children Smoking Status: Current every day smoker tobacco type: cigarettes and smokeless tobacco alcohol intake: never substance use type: does not use caffeine: Yes Type: coffee Number of servings: 3 what type of physical activity do you participate in: walking frequency: daily duration: 45-60 minutes/day seatbelt use: always do you feel safe at home: Yes ROS Review of Systems ROS Unobtainable: due to endotracheal tube Vital Signs Vital Signs Vital Signs: 06/03/24 19:02 06/03/24 19:05 06/03/24 19:06 Temperature 96.8 F L 96.8 F L Temperature Source Temporal Temporal Pulse Rate 130 H 117 H Respiratory Rate 16 19 H Respiratory Effort Mechanically Ventilated Blood Pressure 157/113 H 117/81 H Blood Pressure Mean 127 93 Pulse Ox 93 99 Oxygen Delivery Method Ambu-Bag Mechanical Ventilator Mechanical Ventilator Fraction of Inspired Oxygen (FIO2) 06/03/24 19:13 06/03/24 19:15 06/03/24 19:17 Temperature Temperature Source Pulse Rate 117 H Respiratory Rate 17 Respiratory Effort Agonal Blood Pressure 117/81 H Blood Pressure Mean 93 Pulse Ox 98 98 Oxygen Delivery Method Mechanical Ventilator Mechanical Ventilator Fraction of Inspired Oxygen (FIO2) 100 06/03/24 19:30 06/03/24 19:45 06/03/24 19:55 Temperature Temperature Source Pulse Rate 115 H 122 H Respiratory Rate 30 H 16 Respiratory Effort Blood Pressure 113/67 Blood Pressure Mean 82 Pulse Ox 99 97 Oxygen Delivery Method Mechanical Ventilator Fraction of Inspired Oxygen (FIO2) 100 50 06/03/24 20:05 06/03/24 20:20 06/03/24 20:30 Temperature 97.6 F L Temperature Source Temporal Pulse Rate 108 H 110 H Respiratory Rate 19 H 22 H Respiratory Effort Blood Pressure 106/70 127/88 H Blood Pressure Mean 82 101 Pulse Ox 98 95 Oxygen Delivery Method Mechanical Ventilator Mechanical Ventilator Fraction of Inspired Oxygen (FIO2) 40 06/03/24 21:00 06/03/24 21:07 Temperature 97.6 F L Temperature Source Temporal Pulse Rate 103 H 107 H Respiratory Rate 19 H 22 H Respiratory Effort Blood Pressure 93/62 Blood Pressure Mean 72 Pulse Ox 94 95 Oxygen Delivery Method Mechanical Ventilator Fraction of Inspired Oxygen (FIO2) 40 Weight Weight: 188 lb 1.6 oz Body Mass Index (BMI) 28.5 Results Lab / Micro Data 06/03/24 19:05 06/03/24 19:05 Labs: Laboratory Results - last 24 hr 06/03/24 19:05: WBC 13.0 H, RBC 4.21 L, Hgb 12.4 L, Hct 41.3, MCV 98.1 H, MCH 29.5, MCHC 30.0 L, RDW Std Deviation 47.5 H, RDW Coeff of [place] 13.2, Plt Count 322, MPV 9.5, Neut % (Auto) Not Reportable, Absolute Neuts (auto) 5.3, Absolute Lymphs (auto) 5.48 H, Total Counted 100, Neutrophils % (Manual) 35 L, Band Neutrophils % 6 H, Lymphocytes % (Manual) 42 H, Monocytes % (Manual) 10, Eosinophils % (Manual) 2, Basophils % (Manual) 1, Metamyelocytes % 2 H, Promyelocytes % 2 H, Differential Comment MANUAL, Diff Path Review May foll, Atypical Lymphocytes 1+, Reactive Lymphocytes 2+, Toxic Granulation 1+, Platelet Estimate ADEQUATE, Plt Morphology Comment LARGE, RBC Morphology NORM C+C, Sodium 139, Potassium 4.0, Chloride 106, Carbon Dioxide 20.0 L, Anion Gap 12, BUN 7, Creatinine 1.24, Estim Creat Clear Calc 65.67, Est GFR (MDRD) Af Amer 76, Est GFR (MDRD) Non-Af 63, BUN/Creatinine Ratio 5.6 L, Glucose 285 H, Calcium 8.2 L, Troponin I High Sens 22, B-Natriuretic Peptide 50.9 06/03/24 19:17: Lactic Acid 6.7 H* Micro: Microbiology 06/03/24 19:37 Mucosa - Nose SARS-CoV-2, Influenza & RSV (PCR) - Final ABG Data ABG results: ABG 06/03/24 06/03/24 19:41 21:09 Specimen Type ART ART Sample Site L Radial R Radial pH 6.95 L* 7.12 L* Bicarbonate Actual 19.9 L 23.2 Total CO2 23 26 Base Excess -12 L -6 L O2 Saturation 100 H 85 L O2 % 100.0 40.0 ABG pCO2 90.2 H* 72.4 H* ABG pO2 368 H* 67 L Maykel Test Positive Positive Respiration Rate 12 18 O2 Delivery Device Adult Vent Adult Vent Vent Mode AC AC Tidal Volume 450.0 400.0 POC PEEP 5 5 Crit Call To/Read Back Yes Yes Blood Gas Notified Whom JOE JOE Blood Gas Notified Time 19:42:41 21:10:55 Imaging Radiology Impression Chest X-Ray 06/03/24 19:25 IMPRESSION: Nasogastric tube in the mid esophagus. It needs to be advanced by another 20 cm. Possible mild patchy infiltrates/atelectasis at the lung bases. There is a right pneumothorax. Right rib fractures. Electronically Signed: Fritz Chung DO at 20:34 EDT , Chest X-Ray 06/03/24 19:25 IMPRESSION: Mild basilar infiltrates/atelectasis. Mild right pneumothorax. Nasogastric tube in the stomach. Electronically Signed: Fritz hCung DO at 20:36 EDT , Chest CTA 06/03/24 19:29 IMPRESSION: No demonstrated pulmonary embolism or arterial dissection. Mild adenopathy in the mediastinum. Emphysematous changes and mild basilar infiltrates bilaterally. Right pneumothorax, approximately 20%. . Right rib fractures. Electronically Signed: Fritz Chung DO at 20:26 EDT , ADDENDUM: 06/03/242043 IMPRESSION: No demonstrated pulmonary embolism or arterial dissection. Mild adenopathy in the mediastinum. Emphysematous changes and mild basilar infiltrates bilaterally. Right pneumothorax, approximately 20%. . Right rib fractures. N.B. : Jerson Whitehead DO, confirmed on 06/03/2024 20:37:43 (ET) that the referring physician received the results and does not require a verbal communication. Electronically Signed: Fritz Chung DO at 20:26 EDT , Chest X-Ray 06/03/24 20:50 IMPRESSION: Placement of a chest tube with reduction of right pneumothorax. Electronically Signed: Fritz Chung DO at 21:18 EDT Reading Location ID and State: [facility] / [place] Tel [phone], Service support , Assessment & Plan Assessment/Plan (1) Cardiopulmonary arrest: PLAN: Plan The patient is a 63 y/o M w/ PMHx: Chronic dysphagia, Tobacco use, GERD, HTN, HLD, COPD/Asthma, CAD s/p PCI s/p angioplasty/PCI RCA 06/27/2008 Renee, VIVI, BPH, Hx VTE (DVT, PE) who presents to the [facility] ED on 06/03/24 with history of having dyspnea and wheezing throughout the day worsening in the evening despite using additional extra breathing treatments at home prompting EMS call secondary to ongoing issues as well as noted hypoxia per patient with patient noted to be unresponsive upon their arrival reporting agonal respirations breathing 4-6 times per minute with a pulse at that time which was then unfortunately lost prompting CPR in the field with administration of 4 rounds of epinephrine and chest compressions eventually bagging the patient and transition to the ED. #1. Acute Cardiopulmonary Arrest suspected Medicated secondary to Acute Hypoxic and Hypercarbic Respiratory Failure secondary to Acute Bilateral LL Pneumonia, CAP in addition to Acute on Chronic COPD/asthma exacerbation with associated severe Respiratory Acidosis/significant lactic acidosis likely hypoxia mediated and Acute right sided PTX with approximately 20% volume noted, significant right sided concurrent 4th through 9th rib fractures with 7th rib demonstrating a 2 fracture site (unclear if from trauma with fall prior to unresponsive event versus from CPR administered in field): Will admit to the ICU, continue intubated and sedated status, will continue to cycle cardiac enzymes to be cautious although initial enzyme normal, will obtain magnesium level, FLP in AM, maintain on aspirin to be cautious but again suspect pulmonary mediation primarily, echocardiogram requested, continue supervisor capacitor processing consultation per protocol, continue surgery consultation for chest tube management, continue ATC duonebs, PRN albuterol, IV methylprednisolone, HOB, IS parameters, will obtain sputum Cx, respiratory viral panel, procalcitonin, given severity of presentation and unclear events leading up to it with dysphagia noted on patient problem list to be cautious will place on Zosyn and vancomycin with MRSA screen requested with plan for de-escalation off if appropriate but will defer to supervisor capacitor processing team discretion, plan repeat ABG within 1 hour of intubated status and as needed with expected likely improvement given control of airway and intubated status, will give additional bicarb amp, previously also administered in the ED. #2. Hyperglycemia, suspect stress response: Admission glucose 285, significantly elevated, no diabetic history, hemoglobin A1c requested to be cautious especially given steroid planned usage. #3. Macrocytic anemia, appears new in chronicity on labs however patient is on chronic vitamin B12 supplementation thus uncertain if this is a previous diagnosis: Admission hemoglobin 12.4, MCV 98.1, baseline hemoglobin noted prior primarily been 13-14, will obtain folic acid and vitamin B12 to be cautious and continue to trend CBC with further evaluation depending on results. Continue vitamin B12 supplementation outpatient, temporally hold inpatient. #4. CAD: Status post previous angioplasty/PCI RCA 2007 at [place], will continue aspirin, Plavix, statin, lisinopril given renal function currently appears appropriate, does not appear to be on any beta-maribel therapy likely secondary to underlying pulmonary disease. #5. Tobacco Abuse: Encouraged cessation, inpatient consultation per RT, NR if desired. #6. Hypertension: Continue home regimen including lisinopril, PRN hydralazine. #7. Hyperlipidemia: Continue home statin regimen. AM FLP. #8. Allergic rhinitis: We will continue patient home Singulair home regimen. #9. GERD with history of ulcer, unclear location: We will continue PPI. #10. VIVI: As noted given intubated status will defer any PAP therapy but from records appears was previously utilizing but taken off per primary care but need to clarify. #11. History VTE: Patient with history DVT, PE, per current list does not appear to be chronically anticoagulated, CTPA obtained as noted. #12. BPH: Per current list does not appear to be on regimen, [place] in place given intubated status, if necessary may add Flomax if difficulty removing #13. DVT prophylaxis: Lovenox. #14. CODE STATUS: Full code.
[2024-06-03] MEDS: Midazolam 50 MG in 0.9% Normal Saline (100mL Bag) 90 ML CONT INF (21:51)
[2024-06-03] MEDS: Albuterol 2.5 MG/3 ML VIAL.NEB. INHALATION (22:42)
[2024-06-03 23:22] LABS: Reflex Lactate? Y
[2024-06-04 13:42] LABS: Pathologist Review Reviewed
== END 2024-06-03 23:19 | disposition short-term general hospital (02) ==
PROVIDERS: Emergency Provider Emergency Medicine; PCP Internal Medicine; Visit Provider Emergency Medicine
DX: S27.0XXA Traumatic pneumothorax, initial encounter (principal); J96.02 Acute respiratory failure with hypercapnia; J96.01 Acute respiratory failure with hypoxia; I46.9 Cardiac arrest, cause unspecified; J44.1 Chronic obstructive pulmonary disease with (acute) exacerbation; J44.0 Chronic obstructive pulmonary disease with (acute) lower respiratory infection; S22.41XA Multiple fractures of ribs, right side, initial encounter for closed fracture; I25.10 Atherosclerotic heart disease of native coronary artery without angina pectoris; F17.210 Nicotine dependence, cigarettes, uncomplicated; I25.5 Ischemic cardiomyopathy; E87.29 Other acidosis; I10 Essential (primary) hypertension; Z95.5 Presence of coronary angioplasty implant and graft; I25.2 Old myocardial infarction; Z86.711 Personal history of pulmonary embolism; J98.11 Atelectasis; J18.9 Pneumonia, unspecified organism; R73.9 Hyperglycemia, unspecified; E78.5 Hyperlipidemia, unspecified; K21.9 Gastro-esophageal reflux disease without esophagitis; G47.33 Obstructive sleep apnea (adult) (pediatric); J45.901 Unspecified asthma with (acute) exacerbation; N40.0 Benign prostatic hyperplasia without lower urinary tract symptoms; D64.9 Anemia, unspecified; R06.00 Dyspnea, unspecified
CPT/HCPCS: 31575; 32551; 31500; 31720; 36600; 51702; 71045; 71275; 80048; 82803; 83605; 83880; 84484; 85025; 87040; 87070; 87205; 87631; 93005; 94002; 94640; 99252; 99285; J7030; Q9967; A4216; G0463; J2405

== ENCOUNTER 2024-07-17 12:20 | Inpatient (IN) | payer MEDICARE, MEDICAID, SELFPAY ==
[2024-07-17 12:45] VITALS: BP 114/77; PULSE 92; RESP 16; TEMP 37.2; O2SAT 95; BMI 20.5
--- NOTE | 2024-07-17 13:43 | HP.PCM_ITS ---
[facility] Date of Admission: 07/17/24 Date of Service: 07/17/24 Chief Complaint: Debility due to cardiac arrest. [facility] Narrative CHIO DENT, is a 63 YO M with a past medical history of tobacco dependence and COPD/emphysema who presented to [facility] Emergency department on 06/04/2024 from an outside hospital following acute cardiac arrest with ROSC. He had severe acute hypoxic/hypercapnic respiratory failure with agonal respirations when EMS picked him up. He had been sick for a few days prior. On the way to the OSH in the ambulance he had cardiac arrest and had CPR with ROSC. Upon arrival to the emergency department he was noted to have multiple fractured ribs and a right-sided pneumothorax. He was intubated and started on mechanical ventilation. He was then transferred to [facility] Emergency department for admission. A large bore chest tube was placed. A respiratory culture ultimately grew Klebsiella oxytoca and the patient was treated with Zosyn. On 06/17/2024 an MRI of the brain revealed a possible small area of extra-axial hemorrhage and the patient was noted to have cervical spondylosis without significant canal stenosis at any level. He was noted to have cervical foraminal stenosis, to a severe degree on the left at C3-C4. An incidental finding on the MRI was a 12 mm T2 hyperintense ovoid lesion in the right parotid which may represent a malignancy. Will need to be further evaluated going forward. Neurosurgery recommended no acute surgical intervention at that time. 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 There were no seizures noted. He could not be weaned from the ventilator and so on 06/18/2024 he had a tracheostomy and PEG tube placed. He was then transferred to [facility]term [facility] on 06/23/2024. He was weaned from the ventilator while at [facility]. He has become more alert and is following commands. He is very weak. He was transferred from [facility] LT to acute rehab at [facility] on 07/17/24 for 3 hours of therapy daily. Patient had labs done prior to leaving [facility] on 07/17/2024. BMP is remarkable for an elevated BUN at 23 with a creatinine of 0.44. White blood cell count is normal at 10.4 and the hemoglobin is normal at 13.1. Platelets are normal. He is currently on a 28% FiO2 via trach collar. [facility] Medical History (Updated 07/17/24 @ 15:[address] Chandni Machado, DO) Wears dentures Wears glasses Arthritis Back pain History of hiatal hernia History of ulceration Gastric reflux Smoker Sleep apnea Hypertension History of pain when walking History of echocardiogram History of stress test Cardiology follow-up encounter History of heart attack GERD (gastroesophageal reflux disease) Dysphagia Hypersomnia Bronchiectasis Asthma-COPD overlap syndrome BPH (benign prostatic hyperplasia) Paroxysmal atrial tachycardia Paroxysmal ventricular tachycardia Premature ventricular contraction Presence of stent in coronary artery (~06/27/08) Atherosclerotic heart disease of [place] coronary artery without angina pectoris Ischemic cardiomyopathy HLD (hyperlipidemia) History of pulmonary embolism Nicotine abuse Home Medications ?Medication ?Instructions ?Recorded ?Last Taken ?Type clopidogrel 75 mg tablet 75 mg PO QHS blood thinner 06/16/13 11/27/22 History atorvastatin 20 mg tablet 20 mg PO QHS CHOLESTEROL 12/12/21 07/16/24 History gabapentin 600 mg tablet 600 mg PO QHS PRN Pain 12/12/21 Unknown History montelukast 10 mg tablet 10 mg PO QHS BREATHING 12/12/21 07/17/24 History (Singulair) PEP device 01/30/22 Unknown History omeprazole 20 mg capsule,delayed 40 mg (2 x 20 mg) PO BID GERD #120 12/20/22 Unknown Rx release caps albuterol sulfate 2.5 mg/3 mL 2.5 mg (3 mL) inhalation Q4H PRN 09/26/23 Unknown Rx (0.083 %) solution for nebulization shortness of breath or wheezing #180 mL acetaminophen 325 mg tablet 650 mg PO Q6H PRN pain 07/17/24 Unknown History (Tylenol) enoxaparin 40 mg/0.4 mL 40 mg subcut DAILY Blood thinne 07/17/24 Unknown History subcutaneous syringe (Lovenox) famotidine 20 mg tablet (Pepcid) 20 mg PO BID GERD 07/17/24 07/17/24 History glucose 4 gram chewable tablet 4 g PO Q15M PRN low blood sugar 07/17/24 Unknown History (Dex4 Glucose) ipratropium 0.5 mg-albuterol 3 mg 3 ml inhalation BID shortness of 07/17/24 07/17/24 History (2.5 mg base)/3 mL nebulization breath/wheeze soln lidocaine 4 % topical patch 1 patch topical DAILY pain 07/17/24 Unknown History oxycodone 5 mg tablet 5 - 10 mg PO Q4H PRN Pain 07/17/24 07/17/24 History polyethylene glycol 3350 17 17 g PO BID Constipation 07/17/24 07/16/24 History gram/dose oral powder sennosides 8.6 mg-docusate sodium 2 tab-cap PO BID Constipation 07/17/24 Unknown History 50 mg tablet (Senna with Docusate Sodium) Allergy/AdvReac Type Severity Reaction Status Date / Time latex Allergy Rash Verified 05/04/24 17:15 varenicline tartrate (From Allergy Hives Verified 05/04/24 17:15 Chantix) aspirin AdvReac Upset Verified 05/04/24 17:15 Stomach Family History Father , age 50 CAD (coronary artery disease) Heart disease Myocardial infarction Mother Diabetes Brother Hypertension Surgical History (Updated 07/17/24 @ 15:[address] Chandni Machado DO) History of tracheostomy Hx of carpal tunnel repair Hx of angioplasty History of cardiac catheterization History of coronary artery stent placement Hx of shoulder surgery Hx of sinus surgery Hx of nasal sinusotomy Hx of cystoscopy Hx of tonsillectomy History of thumb surgery Hx of right knee surgery Presence of coronary angioplasty implant and graft (~06/27/08) History of hernia repair Social History household members: significant other and children Smoking Status: Current every day smoker tobacco type: cigarettes and smokeless tobacco alcohol intake: never substance use type: does not use caffeine: Yes Type: coffee Number of servings: 3 what type of physical activity do you participate in: walking frequency: daily duration: 45-60 minutes/day seatbelt use: always do you feel safe at home: Yes ROS Constitutional Constitutional: Reports change in weight, fatigue, weakness, weight loss and other Details: he is NPO for dysphagia. Has lost about 30 lbs in the past 3 month ; Denies anorexia, chills, fever(s) or night sweats Eyes Eyes: Denies blurry vision, change in vision, discharge from eye(s), eye pain, itchy eyes or loss of vision ENT HEENT: Reports dry mouth, dysphagia and other Details: R parotid mass ; Denies abnormal hearing, epistaxis, facial pain, headache(s), hearing loss, mouth pain, nasal congestion, sinus pain or sore throat Cardiovascular Cardiovascular: Reports edema and weakness in extremities; Denies chest pain, lightheadedness, orthopnea, palpitations, periorbital swelling, racing heartbeat, syncope or vomiting Respiratory/Chest Respiratory/Chest: Denies cough, dyspnea, excessive phlegm production, shortness of breath at rest or wheezing Gastrointestinal Gastrointestinal: Denies abdominal pain, constipation, diarrhea, dyspepsia, hematemesis, hematochezia, nausea or vomiting Genitourinary Genitourinary: Reports other Details: He has a Albright catheter in place for urine retention. Denies suprapubic pain. ; Denies dysuria, hematuria, nocturia, urinary frequency, urinary hesitancy, urinary incontinence or urinary urgency Musculoskeletal Musculoskeletal: Reports back pain, radiating pain into limb and other Details: He is complaining of pain and both distal lower extremities which he attributes to neuropathy. Tells me that Neurontin has not helped with the pain. ; Denies joint pain, joint swelling or neck pain Integumentary Integumentary: Denies jaundice or rash Neurologic Neurologic: Reports weakness and other Details: Generalized weakness ; Denies confusion, disequilibrium, dizziness, focal weakness, headache(s), paresthesias, seizures or tremor(s) Psychiatric Psychiatric: Reports abnormal sleep pattern, depression and other Details: Flat affect. Tells me that he has not been sleeping well. This started long before the cardiopulmonary arrest on 06/04/2024. ; Denies anxiety, homicidal ideation or suicidal ideation Endocrine Endocrinology: Reports change in body appearance; Denies polydipsia or polyuria Hematologic/Lymphatic Hematologic/Lymphatic: Denies easy bleeding, easy bruising or lymphadenopathy Allergic/Immunologic Allergic/Immunologic: Reports asthma; Denies rhinitis or eczemia Vital Signs Vital Signs Vital Signs: 07/17/24 12:45 Temperature 98.9 F Temperature Source Temporal Pulse Rate 92 Respiratory Rate 16 Blood Pressure 114/77 Blood Pressure Mean 89 Blood Pressure Source Monitor Blood Pressure Position Semi-Fowlers Blood Pressure Location Left Arm Pulse Ox 95 Oxygen Delivery Method Trach Collar Oxygen Flow Rate (L/min) 2 Weight Weight: 126 lb 12.253 oz Body Mass Index (BMI) 20.5 Physical Exam Const alert and no apparent distress Constitutional Narrative: Speaks softly, has a Passy-Somerset valve. Appropriate. Makes good eye contact with me. General Appearance: cooperative HEENT head/scalp atraumatic and hearing grossly normal bilaterally HEENT Narrative: Mucous membranes are dry. There is no evidence of thrush. He denies pain in his mouth or painful swallowing. He tells me he was having ice chips at the previous facility but will have speech therapy see him prior to doing ice chips. Eyes PERRL, EOMs intact bilaterally, conjunctivae normal and no scleral icterus Eyes Narrative: No discharge from the eyes and no mattering of the eyelashes. General Eye: normal appearance of both eyes Neck supple Neck Narrative: trach in place with a Passy-Somerset valve for speaking. No significant erythema around the stoma. Chest Chest: symmetrical chest wall rise Resp normal respiratory effort and no use of accessory muscles Resp Narrative: Coarse BS's BL anteriorly. NO cough with deep breaths. No conversational dyspnea. Not tachypneic. Effort and Inspection: Negative for tachypneic, respiratory distress, stridor, retractions, uses accessory muscles or pain with movement Cardio regular rate, regular rhythm, S1 normal heart sound, S2 normal heart sound, no murmurs, no rub and no gallops Cardio Narrative: No ectopy GI normal to inspection, nondistended, normoactive bowel sounds, soft to palpation and non-tender GI Narrative: No guarding with palpation. Tells me he is having regular bowel movements. The PEG site is free of erythema and discharge. He had no pain with palpation around the PEG tube. He is aware when he needs to have a bowel movement. Narrative: Albright catheter is in place. The urine appears cloudy in the bag and in the tubing. Back/Spine Back/Spine Narrative: Nursing reports that he has some nonblanchable erythema on the buttocks and Calmoseptine has been ordered along with frequent turning. Extremity no calf tenderness Extremity Narrative: Dorsalis pedis pulses are +2 bilaterally. He has edema of both the hands and feet. No cyanosis. No clubbing. He has muscle atrophy in all extremities. Peripheral Pulses: Yes radial pulses present Skin no jaundice and no petechiae Skin Narrative: Stage I on the buttocks. The skin over the heels is normal with no erythema and no breakdown. Heel protectors are in place. Neuro oriented x3 and CN's II-XII intact bilaterally Neuro Narrative: Tongue protrudes on the midline. The face is symmetrical. Weak shoulder shrug bilaterally. He is able to lift the left forearm off the bed but it falls to the bed almost immediately. He could not lift the right upper extremity off the bed at all but has some movement from [id number] and has a very weak grasp. Grasp on the left hand is also very weak. He could not lift either lower extremity off the bed. He is able to dorsiflex and plantarflex very weakly bilaterally. No tremors. Marked muscle atrophy. No nystagmus. Denies visual field cuts. Unable to adequately test ataxia due to extreme weakness. Intact sensation. Psych cooperative Psych Narrative: Flat affect. No agitation. Making good eye contact when speaking with me. Soft voice but otherwise normal speech. Assessment & Plan Assessment/Plan (1) Physical debility: (2) Community acquired pneumonia: PLAN: Due to Klebsiella oxytoca. Found at home with agonal resp on 06/04/24. Had cardiac arrest in the ambulance on the way to the ED. Had CPR with ROSC. Had multiple Rib fractures and a R pneumothorax at arrival to the ER. Was i ntubated. R CT was inserted. (3) Respiratory arrest before cardiac arrest: (4) Cardiopulmonary arrest: (5) Ribs, multiple fractures: QUALIFIERS: Encounter type: subsequent encounter Fracture type: closed Laterality: unspecified laterality (6) Pneumothorax, right: (7) History of chest tube placement: (8) History of mechanical ventilation: (9) History of tracheostomy: PLAN: 06/18/2024 at [facility]. (10) Dysphagia: QUALIFIERS: Dysphagia type: unspecified Qualified Code(s): R13.10 - Dysphagia, unspecified (11) S/P percutaneous endoscopic gastrostomy (PEG) tube placement: (12) Anoxic-ischemic encephalopathy: PLAN: No seizures on EEG. (13) Mass of right parotid gland: PLAN: Needs to be further evaluated/biopsied in the future. (14) Intracranial hemorrhage: PLAN: Small and did not require intervention. (15) Cervical spondylosis: (16) Foraminal stenosis of cervical region: PLAN: Worse at C3-4 on the Left with paresis of both UE's. (17) Atherosclerotic heart disease of [place] coronary artery without angina pectoris: QUALIFIERS: [place] vs. transplanted heart: [place] heart Qualified Code(s): I25.10 - Atherosclerotic heart disease of [place] coronary artery without angina pectoris (18) Presence of stent in coronary artery: (19) COPD (chronic obstructive pulmonary disease): QUALIFIERS: COPD type: COPD with acute exacerbation Qualified Code(s): J44.1 - Chronic obstructive pulmonary disease with (acute) exacerbation (20) HLD (hyperlipidemia): QUALIFIERS: Hyperlipidemia type: unspecified Qualified Code(s): E78.5 - Hyperlipidemia, unspecified (21) Asthma-COPD overlap syndrome: (22) Nicotine abuse: PLAN: Was smoking 1 PPD at the time os the arrest.......started smoking at age 14. Documentation from the previous hospital says he has a > 80 pack year smoking hx. (23) Hypertension: QUALIFIERS: Hypertension type: primary hypertension Qualified Code(s): I10 - Essential (primary) hypertension PLAN: Plan PLAN PT for gait stability OT for ADL's ST for evaluation Analgesics as needed Bowel protocol Fall precautions Assess for Anxiety/Depression GI prophylaxis -famotidine DVT prophylaxis with enoxaparin Follow up with PCP, ENT for parotid biopsy, pulmonary medicine, neurology and cardiology following DC from [facility] AM lab including CMP, CBC, Mag and Phos ordered. Will need to better assess for depression over the next few days. Will D/W the SW. Obtain a CXR for a baseline and because of the coarse BS's. Trial of discontinuing Albright? Check a Ua today....urine in the Albright tubing is cloudy. Reviewed all the documentation sent to us from [facility] and [facility]. 70 minutes s pent reviewing past diagnostic tests, lab results, vital sign trends, medical history, medications, all additional paperwork sent by the previous hospital, and ordering medications, examining the the patient and completing documentation. Charges/Coding Visit Charges Inpatient E&M: 18798 Init Hosp L3
--- NOTE | 2024-07-17 14:08 | RAD_ITS ---
HISTORY: SOB. TECHNIQUE: XR Chest 1 View. COMPARISON: 06/03/2024. FINDINGS: LINES/TUBES: Tracheostomy tube tip placed approximately 6 cm above the luli. Nasogastric tube and right chest tube removed. Resolution of right chest wall subcutaneous emphysema. CARDIOMEDIASTINAL BORDERS: Stable. LUNGS: Radiographically clear. PLEURA: No pleural effusion or pneumothorax. OTHER: Chronic left clavicle and left rib fractures. Multiple acute-subacute right rib fractures again seen. RAD/Chest 1 View (Portable) IMPRESSION: No acute cardiopulmonary process identified. Satisfactory appearance of tracheostomy tube. Multiple right rib fractures again seen. Electronically Signed: Lesley Yan MD at 15:09 EST ,
[2024-07-17 15:41] VITALS: O2SAT 92
[2024-07-17] MEDS: Jevity 1.5 1,000 ML 50 ML GT (16:00)
[2024-07-17] MEDS: Gabapentin 600 MG Tablet GT (16:20)
[2024-07-17] MEDS: oxyCODONE 5 MG Tablet GT (16:20)
[2024-07-17 16:48] LABS: Mucous, Urine 0 SEEN /hpf (<or=2+); Red Blood Cells-Urine 0 SEEN /hpf (0-5); Squamous Epithelial Cells - UA 0 SEEN /hpf (0-5)
[2024-07-17 16:49] LABS: Color, Urine Yellow (Yellow); Glucose, Dipstick Normal (Normal); Ketone-Dipstick Negative (Negative); Leukocyte Esterase-Dipstick 25 /ul (Negative); Nitrite-Dipstick Negative (Negative); Occult Blood-Urine 10 /ul (Negative); Protein-Dipstick 15 mg/dl (Negative); Specific Gravity, Urine 1.015 (1.002-1.030); Urine Bilirubin Dipstick Negative (Negative); Urine Clarity Turbid (Clear); Urine Urobilinogen 1 mg/dl (Normal); Urine pH 6.5 (5.0 - 8.0)
[2024-07-17 16:57] LABS: White Blood Cells 5-10 SEEN /hpf (0-5)
--- NOTE | 2024-07-17 16:57 | REHABEVAL_ITS ---
Admission Information Primary Diagnosis:: Debility secondary to respiratory/cardiac arrest/anoxic encephalopathy Status Changes from Prescreening?: No changes Identified Actual Problem List:: Skin Intergrity, Pain, ALteration in Cmfrt, Cognitve Impr/Memory Loss, Depression, Alteration in Sleep, Mobility Impaired, Self Care Deficit, Know.Dfct of Medicaitons, Alteration/ Air Exchange and Alteration- Leisure Activ. Potential Problem List:: DVT, Bleeding, Infection, UTI, Aspiration, Falls, Skin Integrity and Depression Risk of Complications DVT: LMWH and DAVID Hose Bleeding: Monitor Lab Values, Nursing to Teach Precautions for anti-coagulation therapy., Wound, if applicable, to be assessed every shift. and Stroke patients assessed for lethargy or change in status. Infection: Clinical Staff to Monitor for S/S of infection: and S/S of infection include fever, redness, warmth, etc. Urinary Tract Infection: Monitor for frequency, burning, discomfort, or incontinence. and Nursing will obtain urine sample for urinalysis and C&S when ordered. Aspiration: Clinical staff will monitor for coughing, drooling, congestion., Speech will evaluate swallowing and dsyphasia. and Nursing will monitor patient swallowing during meals. Falls: Patient will be evaluated for Fall Precautions and Patient will be placed on Fall Precautions as indicated per protocol. Skin Breakdown: Nursing will assess skin daily using assessment tool. and Nursing will place on Skin Breakdown Precautions as indicated. Pain: Clinical staff will assess patient's pain level per protocol., Medications will be given, if needed, and the pain level reassessed. and Other methods: Massage, distraction, decrease stimulus, etc. used PRN. Plan of Care Patient requires physician specializing in physical medicine and rehab oversight to provide close medical supervision of rehab issues including: Pain Management, Sleep Problems, Bowel and Bladder, Medical and co-morbidity Management, DVT prophylaxis, Rehabilitation Leadership and Coordination of treatment team Patient needs Physical Therapy: For a minimum of 1 hour and At least 5 out of 7 days Patient needs Physical Therapy to improve:: Mobility, Strengthening, Transfers, Stretching, ROM, Endurance, Stairs, Gait and Balance Patient needs Occupational Therapy: For a minimum of 1 hour and At least 5 out of 7 days Patient needs Occupational Therapy to improve ADL's incl.: Eating, Grooming, Bathing, Dressing, Toileting, Toilet transfers, Community Reintegration, Higher functioning activities, Household tasks, Adaptive Equipment, Splinting and Other activities as determined Patient requires speech therapy: For a minimum of 1 hour and At least 5 out of 7 days Patient requires speech therapy for: Swallowing, Cognition, Language Skills and Compensatory Strategies Patient requires 24/ Rehabilitation Nursing for: Pain Issues, Identifying and preventing risk factors, Monitoring and reporting current medical conditions, Assisting with ambulation, transfer, and all ADL's, Teaching patients about disease process and medications, Family teaching, Providing safe environment, Bowel and Bladder Issues, Skin integrity and Medication Management Patient needs Territory Account Executive/ Case Management for: Discharge Planning, Arranging Home Equipment or Services and Family Interventions Patient needs Dietary and Nutrition Services for: Adequate Nutrition, Nutritional Supplements and Nutritional Education Goals Goals Patient will remain: free from falls Patient will perform eating at: - (He is dependent on PEG feedings and is NPO ) Patient will perform bed mobility at: - (Min assist) Patient will complete transfers from bed to chair at: - (. Will go from sitting to standing with min assist to mod assist x 1 with a front wheel walker and cueing.) Patient will ambulate: - (5 feet with a front wheeled walker at min to mod assist x 2) Patient will complete upper body dressing at: - (Supervision) Patient will complete lower body dressing at: - (Supervision with adaptive equipment as needed) Patient will complete toilet transfer at: - (Moderate assistance) Patient will complete toileting at: - (Supervision) Patient will achieve: - (Not a goal for him at this time.) Patient will have pain level of: of 3 or less Patient's skin will: remain intact Patient will receive: adequate nutrition. Discharge Planning Pt Prognosis for Sig. Practical Improv. w/in Reasonable Time: Fair Estimated Length of stay (days): 28 Anticipated D/C Destination: [facility] Was Preadmission Assessment Accurate?: Yes
[2024-07-17 16:58] LABS: Amorphous Sediment 2+; Bacteria 1+ /hpf (None Seen); Hyaline Cast 0-5 SEEN /lpf (0-5)
[2024-07-17 17:00] VITALS: PULSE 97; RESP 16; O2SAT 91
[2024-07-17] MEDS: Ipratropium/Albuterol Sulfate 3 ML AMPUL.NEB INHALATION (17:00)
[2024-07-17 17:28] LABS: Bedside Glucose 117 mg/dL (74-106)
[2024-07-17 17:30] VITALS: BP 113/74; PULSE 82; RESP 18; TEMP 37.3; O2SAT 93
[2024-07-17 20:50] VITALS: O2SAT 95
[2024-07-17 21:38] LABS: Bedside Glucose 129 mg/dL (74-106)
[2024-07-17] MEDS: Atorvastatin Calcium 20 MG Tablet GT (23:18)
[2024-07-17] MEDS: Famotidine 20 MG Tablet GT (23:18)
[2024-07-17] MEDS: Senna/Docusate Sodium 1 Tablet 2 TABLET GT (23:18)
[2024-07-17] MEDS: Polyethylene Glycol 3350 17 GM PACKET GT (23:18)
[2024-07-17] MEDS: Menthol/Lanolin/Calamine/Znox 113 GM Tube 1 APPLIC TOPICAL (23:21)
[2024-07-17 23:30] VITALS: PULSE 76; RESP 20
[2024-07-17] MEDS: Albuterol 2.5 MG/3 ML VIAL.NEB. INHALATION (23:30)
[2024-07-18 06:00] VITALS: BP 98/71; PULSE 95; RESP 16; TEMP 37.2; O2SAT 96
[2024-07-18 06:41] LABS: Bedside Glucose 140 mg/dL (74-106)
[2024-07-18 07:20] VITALS: RESP 18
[2024-07-18] MEDS: Ipratropium/Albuterol Sulfate 3 ML AMPUL.NEB INHALATION ×2 (07:20→19:00)
[2024-07-18 07:24] LABS: Absolute Lymphocyte Count 0.95 X10^3/uL (0.83-4.51); Absolute Neutrophil Count 6.6 X10^3/uL (2.0-7.7); Basophil# 0.05 X10^3/uL; Basophil% 0.6 % (0-1); Eosinophil# 0.29 X10^3/uL; Eosinophils% 3.3 % (0-5); Hematocrit 36.1 % (40-54); Hemoglobin 11.4 g/dL (13.0-16.5); Lymphocyte # 0.95 X10^3/ul (0.83-4.51); Lymphocyte % 10.9 % (19-41); Mean Corp Hgb Conc 31.6 g/dL (32-36); Mean Corpuscular Hgb 29.2 pg (27.0-32.0); Mean Corpuscular Volume 92.3 fL (80-94); Mean Platelet Vol. 11.1 fl (6.2-12.0); Monocyte# 0.73 X10^3/uL; Monocyte% 8.4 % (0-10); NRBC Flagged by Analyzer 0 % (0-5); Neutrophil # 6.55 X10^3/uL (2.7-7.7); Neutrophil % 75.3 % (47-70); Platelet Count 269 K/mm3 (150-450); RBC Distribution Width CV 15.1 % (11.6-14.6); RBC Distribution Width SD 51.6 fl (35.1-43.9); Red Blood Count 3.91 M/mm3 (4.6-6.2); White Blood Count 8.7 K/mm3 (4.4-11.0)
[2024-07-18 07:50] LABS: ALB/GLOB Ratio 0.7 RATIO (0.9-2.4); AST(SGOT) 25 U/L (15-37); Alanine Aminotransfer ALT/SGPT 26 U/L (16-61); Albumin, Serum 2.6 g/dL (3.2-5.0); Alkaline Phosphatase 131 U/L (45-117); Anion Gap 4 (5-15); BUN 21 mg/dL (7-18); BUN/Creat Ratio 34.2 RATIO (10-20); Calcium,Total 9.1 mg/dL (8.5-10.1); Chloride 102 mmol/L (98-107); Creatinine, Serum 0.61 mg/dL (0.70-1.30); EST Glomerular Filtration Rate 141 mL/min (>60); Est Glom Filt Rate - Afr Amer 171 mL/min (>60); Estimated Creatinine Clearance 102.12 ml/min; Globulin 3.7 g/dL (2.2-4.2); Glucose 133 mg/dL (74-106); Phosphorus 4.7 mg/dL (2.5-4.9); Potassium 4.1 mmol/L (3.5-5.1); Protein, Total 6.3 g/dL (6.4-8.2); Sodium Level 138 mmol/L (136-145)
[2024-07-18] MEDS: Lidocaine 5% Patch 1 PATCH TOPICAL (07:50)
[2024-07-18] MEDS: Menthol/Lanolin/Calamine/Znox 113 GM Tube 1 APPLIC TOPICAL ×2 (07:50→22:01)
[2024-07-18] MEDS: Gabapentin 600 MG Tablet GT ×3 (07:51→17:08)
[2024-07-18] MEDS: Enoxaparin 40 MG/0.4 ML Syringe SC (07:51)
[2024-07-18] MEDS: Famotidine 20 MG Tablet GT ×2 (07:51→22:02)
[2024-07-18] MEDS: Montelukast 10 MG Tablet GT (07:52)
[2024-07-18 10:00] VITALS: BMI 20.9
--- NOTE | 2024-07-18 10:26 | PCM.PROGNOTE ---
Subjective Subjective Afebrile VSS - Maintaining appropriate oxygen saturation on RA Oral intake - FOOD remains NPO. He is getting 150 cc water flush every 4 hours and Jevity 1.5 at 50 cc/h. FLUIDS n.p.o. The blood sugar record was reviewed. Blood sugars have ranged from 117-140 since admission to rehab. Postvoid residuals x 3 are negative for retention. Discussed with nursing -incontinent of stool. Albirght catheter is in place. Tolerating tube feeds with no residuals. Reviewed the THERAPY notes Medication list reviewed. All lab done since admission to rehab was personally reviewed. CBC today shows white blood cell count of 8.7. Hemoglobin is 11.4 with normochromic normocytic indices. Platelet count is normal at 269,000. Sodium is 138 and the potassium is 4.1. The BUN is 21 with a creatinine of 0.61 This is actually better than his baseline. Calcium, phosphorus and magnesium are all normal. LFTs are unremarkable. UA showed 5-10 WBCs per high-power field with some amorphous sediment. There was 1+ bacteria. There were 0-5 hyaline casts. It was nitrite negative. There were no ketones. Urine was sent for culture. White blood cell count is normal and he is afebrile so no indication for antibiotics at this time. I personally reviewed the chest x-ray and concur with radiologist impression. No acute infiltrates, pulmonary vascular congestion or effusions. Multiple subacute rib fractures are evident. He denies pain, SOB, palpitations, Nausea, sore throat, calf pain, suprapubic pain. Objective Data Objective Data Vital Signs: Vital Signs Temp Pulse Resp BP Pulse Ox O2 Del Method O2 Flow Rate 98.9 F 95 18 98/71 96 Trach Collar 8 07/18/24 06:00 07/18/24 06:00 07/18/24 07:20 07/18/24 06:00 07/18/24 06:00 07/18/24 07:20 07/18/24 08:14 FiO2 30 07/18/24 07:20 Oxygen Flow Rate (L/min) 8 Oxygen Delivery Method Trach Collar Weight: 126 lb 12.253 oz Body Mass Index (BMI) 20.5 Intake & Output: Intake and Output for Last 24 Hours 07/16/24 07/17/24 07/18/24 23:59 23:59 23:59 Output Total 1000 / 1000 Balance -1000 / -1000 Medical Nutrition Assessment Dietitian: Malnutrition Criteria Met Start: 07/17/24 15:56 Freq: Status: Active Protocol: Document 07/17/24 15:56 SB (Rec: 07/17/24 15:56 SB [id number]) Nutrition Malnutrition Evidence of Malnutrition Exists Yes Malnutrition (severe): Chronic Evidenced By Suboptimal Energy Intake ( Severe),Weight Loss (Severe) Clinical Problem Chronic Disease or Condition Related Malnutrition Etiology severe related to inadequate oral intake and dysphagia Signs/Symptoms as evidenced by 16.6% unintentional weight loss x 3 months and PO meeting <75% of estimated needs x 3 months. Status Active Problem Recommendation Dietitian Recommendations/Changes Continue Jevity 1.5 @ 50ml/hr, will order 150ml flushes every 4 hours providing 1800 calories, 76 grams of protein, 1812ml of fluid/day. Will adjust tube feeding, as needed. Will monitor weight, as available. Review and approved by Vivi Harvey RD, LD. Lab / Micro Data 07/18/24 07:08 07/18/24 07:08 Labs: Laboratory Results - last 24 hr 07/17/24 15:00: Urine Color Yellow, Urine Clarity Turbid, Urine pH 6.5, Ur Specific [place] 1.015, Urine Protein 15 H, Urine Glucose (UA) Normal, Urine Ketones Negative, Urine Occult Blood 10 H, Urine Nitrite Negative, Urine Bilirubin Negative, Urine Urobilinogen 1 H, Ur Leukocyte Esterase 25 H, Urine RBC 0 SEEN, Urine WBC 5-10 SEEN, Ur Squamous Epith Cells 0 SEEN, Amorphous Sediment 2+, Urine Bacteria 1+, Hyaline Casts 0-5 SEEN, Urine Mucus 0 SEEN 07/17/24 16:56: POC Glucose 117 H 07/17/24 21:10: POC Glucose 129 H 07/18/24 06:14: POC Glucose 140 H 07/18/24 07:08: WBC 8.7, RBC 3.91 L, Hgb 11.4 L, Hct 36.1 L, MCV 92.3, MCH 29.2, MCHC 31.6 L, RDW Std Deviation 51.6 H, RDW Coeff of [place] 15.1 H, Plt Count 269, MPV 11.1, Immature Gran % (Auto) 1.500 H, Neut % (Auto) 75.3 H, Lymph % (Auto) 10.9 L, [place] % (Auto) 8.4, Eos % (Auto) 3.3, Baso % (Auto) 0.6, Absolute Neuts (auto) 6.6, Absolute Lymphs (auto) 0.95, Nucleated RBC % 0, Sodium 138, Potassium 4.1, Chloride 102, Carbon Dioxide 32.0, Anion Gap 4 L, BUN 21 H, Creatinine 0.61 L, Estim Creat Clear Calc 102.12, Est GFR (MDRD) Af Amer 171, Est GFR (MDRD) Non-Af 141, BUN/Creatinine Ratio 34.2 H, Glucose 133 H, Calcium 9.1, Phosphorus 4.7, Magnesium 2.0, Total Bilirubin 0.40, AST 25, ALT 26, Alkaline Phosphatase 131 H, Total Protein 6.3 L, Albumin 2.6 L, Globulin 3.7, Albumin/Globulin Ratio 0.7 L Radiography Diagnostic Testing: Radiology Impression Chest X-Ray 07/17/24 14:08 IMPRESSION: No acute cardiopulmonary process identified. Satisfactory appearance of tracheostomy tube. Multiple right rib fractures again seen. Electronically Signed: Lesley Yan MD at 15:09 EST Reading Location ID and State: [facility] / [place] Tel , Service support , Physical Exam Const alert Constitutional Narrative: Able to follow commands. General Appearance: cooperative Resp clear to auscultation bilaterally Cardio regular rate and regular rhythm GI normal to inspection, nondistended, normoactive bowel sounds, soft to palpation and non-tender GI Narrative: No guarding with palpation Extremity Extremity Narrative: Persistent edema in the hands and feet, more likely than not secondary to immobility. He has severe weakness in all extremities and muscle atrophy. General Extremity: Negative for cyanosis Skin Skin Narrative: No openings in the skin. Some redness on the backside......nursing is aware and treating appropriately Rashes: no rashes Psych Psych Narrative: flat affect. Having some difficulty getting motivated with OT today. Tells me that he is not sleeping well....this has been a problem even prior to the cardiac arrest. Assessment & Plan Assessment/Plan (1) Physical debility: (2) Community acquired pneumonia: (3) Respiratory arrest before cardiac arrest: (4) Cardiopulmonary arrest: (5) Ribs, multiple fractures: QUALIFIERS: Encounter type: subsequent encounter Fracture type: closed Laterality: unspecified laterality (6) Pneumothorax, right: (7) History of chest tube placement: (8) History of mechanical ventilation: (9) History of tracheostomy: (10) Dysphagia: QUALIFIERS: Dysphagia type: unspecified Qualified Code(s): R13.10 - Dysphagia, unspecified (11) S/P percutaneous endoscopic gastrostomy (PEG) tube placement: (12) Anoxic-ischemic encephalopathy: (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 Continue therapy 2. Change blood sugars to every 6 hours and monitor for the next 24 to 48 hours. If all blood sugars are less than 160 will change the Accu-Cheks to as needed. He is on no medication for diabetes mellitus. If blood sugars are running over 150 consider adding GLucophage. 3. Start Remeron for suspected depression. for a 63 YO man he has a lot of medical comorbidities. He was not on an antidepressant prior to the cardiac arrest. Chronic insomnia. Unable to quit smoking despite COPD/asthma, poor motivation. I suspect he had untreated depression prior to the recent events. 4. Await the results of the urine culture. No antibiotics at this time.....AF, no suprapubic pain, no nausea, no flank pain and white blood cell count is normal. Charges/Coding Visit Charges Inpatient E&M: 85832 Subs Hosp L1
[2024-07-18] MEDS: 0.9% Saline Lock 10 ML Syringe IV ×2 (11:49→22:07)
[2024-07-18 12:13] LABS: Bedside Glucose 121 mg/dL (74-106)
[2024-07-18] MEDS: Jevity 1.5 1,000 ML 50 ML GT (15:09)
[2024-07-18 17:30] LABS: Bedside Glucose 121 mg/dL (74-106)
[2024-07-18 18:00] VITALS: BP 120/72; PULSE 82; RESP 17; TEMP 37.6
[2024-07-18 19:01] VITALS: PULSE 74; RESP 18
[2024-07-18] MEDS: Atorvastatin Calcium 20 MG Tablet GT (22:02)
[2024-07-18] MEDS: Mirtazapine 15 MG Tablet PO (22:02)
[2024-07-19 00:30] LABS: Bedside Glucose 116 mg/dL (74-106)
[2024-07-19 06:00] VITALS: BP 124/73; PULSE 87; RESP 16; TEMP 36.6; O2SAT 96
[2024-07-19 06:20] VITALS: BMI 20.9
[2024-07-19 06:40] LABS: Bedside Glucose 118 mg/dL (74-106)
[2024-07-19] MEDS: Ipratropium/Albuterol Sulfate 3 ML AMPUL.NEB INHALATION ×2 (06:55→20:00)
[2024-07-19 07:02] VITALS: PULSE 70; RESP 18; O2SAT 96
[2024-07-19] MEDS: Gabapentin 600 MG Tablet GT ×3 (08:56→16:23)
[2024-07-19] MEDS: Senna/Docusate Sodium 1 Tablet 2 TABLET GT (09:02)
[2024-07-19] MEDS: Enoxaparin 40 MG/0.4 ML Syringe SC (09:02)
[2024-07-19] MEDS: Famotidine 20 MG Tablet GT ×2 (09:02→21:53)
[2024-07-19] MEDS: Montelukast 10 MG Tablet GT (09:02)
[2024-07-19] MEDS: Polyethylene Glycol 3350 17 GM PACKET GT (09:02)
[2024-07-19] MEDS: Menthol/Lanolin/Calamine/Znox 113 GM Tube 1 APPLIC TOPICAL ×2 (09:18→21:52)
[2024-07-19 11:42] LABS: Bedside Glucose 106 mg/dL (74-106)
[2024-07-19] MEDS: Jevity 1.5 1,000 ML 50 ML GT (16:23)
[2024-07-19 17:15] VITALS: BP 120/76; PULSE 77; RESP 16; TEMP 37.1; O2SAT 98
[2024-07-19 18:59] LABS: Bedside Glucose 113 mg/dL (74-106)
[2024-07-19 20:00] VITALS: PULSE 80; RESP 18
[2024-07-19] MEDS: Atorvastatin Calcium 20 MG Tablet GT (21:52)
[2024-07-19] MEDS: Mirtazapine 15 MG Tablet PO (21:53)
[2024-07-19] MEDS: 0.9% Saline Lock 10 ML Syringe IV (21:54)
[2024-07-20 00:28] LABS: Bedside Glucose 104 mg/dL (74-106)
[2024-07-20 06:00] VITALS: BP 99/69; PULSE 80; RESP 18; TEMP 36.7; O2SAT 100
[2024-07-20 07:13] VITALS: BMI 20.3
[2024-07-20 07:15] VITALS: PULSE 88; RESP 19
[2024-07-20 07:28] LABS: Bedside Glucose 108 mg/dL (74-106)
[2024-07-20 07:54] VITALS: O2SAT 96
[2024-07-20] MEDS: Gabapentin 600 MG Tablet GT ×3 (08:38→17:29)
[2024-07-20] MEDS: Enoxaparin 40 MG/0.4 ML Syringe SC (08:39)
[2024-07-20] MEDS: Famotidine 20 MG Tablet GT ×2 (08:39→21:35)
[2024-07-20] MEDS: Menthol/Lanolin/Calamine/Znox 113 GM Tube 1 APPLIC TOPICAL ×2 (08:39→21:49)
[2024-07-20] MEDS: Montelukast 10 MG Tablet GT (08:40)
[2024-07-20] MEDS: Jevity 1.5 1,000 ML 50 ML GT (08:41)
--- NOTE | 2024-07-20 09:01 | PCM.PROGNOTE ---
Subjective Subjective Afebrile VSS - Maintaining appropriate oxygen saturation on RA Oral intake - FOOD tolerating tube feed without residuals FLUIDS n.p.o. The blood sugar record was reviewed. No need for any treatment at this time will discontinue Accu-Cheks. Discussed with nursing - no problems that need addressed. Tolerating tube feed with no residuals. Sleeping well at night. Albright catheter was discontinued over the weekend. He has been using the urinal and is also asked to use the bedpan. Reviewed the THERAPY notes - ST has approved him for ice chips and water per TSP but, ONLY with DEV[employer] ENGINEER at this time. ST is recommending a FEES but, pt prefers a MBS. He scored 20 out of possible 27 on the COG LOG Medication list reviewed. Urine culture had no growth. Denies cephalgia, lightheadedness, shortness of breath, chest pain, palpitations, nausea, abdominal pain, burning with urination and calf tenderness. He denies pain to me but, he c/o pain in his feet 10/10 to the therapists. PT put him on the nu-step and his pain went down to a 3 from 10 just with moving. He is already taking gabapentin 600 mg TID......since he denied pain lying in bed to me and the pain he did c.o got better with exercise no changes to the drug regimen at this time. Objective Data Objective Data Vital Signs: Vital Signs Temp Pulse Resp BP Pulse Ox O2 Del Method O2 Flow Rate 98.0 F 88 19 H 99/69 96 Trach Collar 8 07/20/24 06:00 07/20/24 07:15 07/20/24 07:15 07/20/24 06:00 07/20/24 07:54 07/20/24 07:54 07/20/24 07:54 FiO2 30 07/20/24 07:54 Oxygen Flow Rate (L/min) 8 Oxygen Delivery Method Trach Collar Weight: 126 lb 1.671 oz Body Mass Index (BMI) 20.3 Intake & Output: Intake and Output for Last 24 Hours 07/18/24 07/19/24 07/20/24 23:59 23:59 23:59 Intake Total 1120 / 2380 3280 / 3640 1325 / 1325 Output Total 700 / 700 300 / 700 1000 / 1000 Balance 420 / 1680 2980 / 2940 325 / 325 Medical Nutrition Assessment Dietitian: Malnutrition Criteria Met Start: 07/17/24 15:56 Freq: Status: Active Protocol: Document 07/17/24 15:56 SB (Rec: 07/17/24 15:56 SB [id number]) Nutrition Malnutrition Evidence of Malnutrition Exists Yes Malnutrition (severe): Chronic Evidenced By Suboptimal Energy Intake ( Severe),Weight Loss (Severe) Clinical Problem Chronic Disease or Condition Related Malnutrition Etiology severe related to inadequate oral intake and dysphagia Signs/Symptoms as evidenced by 16.6% unintentional weight loss x 3 months and PO meeting <75% of estimated needs x 3 months. Status Active Problem Recommendation Dietitian Recommendations/Changes Continue Jevity 1.5 @ 50ml/hr, will order 150ml flushes every 4 hours providing 1800 calories, 76 grams of protein, 1812ml of fluid/day. Will adjust tube feeding, as needed. Will monitor weight, as available. Review and approved by Vivi Harvey RD, LD. Lab / Micro Data 07/18/24 07:08 07/18/24 07:08 Labs: Laboratory Results - last 24 hr 07/19/24 11:23: POC Glucose 106 07/19/24 18:40: POC Glucose 113 H 07/20/24 00:09: POC Glucose 104 07/20/24 07:07: POC Glucose 108 H Micro: Microbiology 07/17/24 15:00 Urine Catheter - Catheter Urine Culture - Preliminary Culture exhibits no growth. Physical Exam Const alert, oriented x3 and no apparent distress Constitutional Narrative: Denies pain and SOB. Very alert today. Was up in the chair yesterday. General Appearance: cooperative Eyes PERRL and EOMs intact bilaterally Resp clear to auscultation bilaterally Resp Narrative: CTA anterior and lateral. Good air exchange. He is not tachypneic. 96-98% on trach collar at 30%........will discuss weaning the O2 with RT. Effort and Inspection: Negative for tachypneic, respiratory distress, labored or uses accessory muscles Cardio regular rate, regular rhythm, no murmurs, no rub and no gallops Cardio Narrative: No ectopy GI normal to inspection, nondistended, normoactive bowel sounds, soft to palpation and non-tender GI Narrative: No guarding with palpation. The PEG site has no discharge and no erythema surrounding the site. No tenderness to palpation around the area. Extremity no calf tenderness Extremity Narrative: Edema in the hands and feet is decreasing. Skin Rashes: no rashes Neuro CN's II-XII intact bilaterally Assessment & Plan Assessment/Plan (1) Physical debility: (2) Community acquired pneumonia: (3) Respiratory arrest before cardiac arrest: (4) Cardiopulmonary arrest: (5) Ribs, multiple fractures: QUALIFIERS: Encounter type: subsequent encounter Fracture type: closed Laterality: unspecified laterality (6) Pneumothorax, right: (7) History of chest tube placement: (8) History of mechanical ventilation: (9) History of tracheostomy: (10) Dysphagia: QUALIFIERS: Dysphagia type: unspecified Qualified Code(s): R13.10 - Dysphagia, unspecified (11) S/P percutaneous endoscopic gastrostomy (PEG) tube placement: (12) Anoxic-ischemic encephalopathy: (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 Continue therapy 2. Consult the dietitian to transition him to bolus tube feedings to facilitate doing therapy. I am told by nursing that the PEG is small bore and bolus feedings may be hard to push.....will continue to monitor. 3. Discontinue Accu-Cheks 4. Check a Hemoccult stool 5. MBS or FEES when appropriate. CODE STATUS: Discussed code status at length with Panchito including the difference between FULL CODE, DNR CCA and DNR CC status. All questions were answered. An order for full code was entered into the computer. A total of 20 minutes face to face time was devoted to advanced care planning. He is alert and oriented X 3. Appropriate and able to follow commands......I feel he is capable of making this decision. Charges/Coding Visit Charges Inpatient E&M: 75555 Subs Hosp L1
--- NOTE | 2024-07-20 15:45 | NURSING ---
1530 assisted back to bed x2 assist and use of figueroa, speaker valve removed. 1545 family at bedside, speaker valve applied.
--- NOTE | 2024-07-20 16:03 | CHAPLAIN ---
Type of Pastoral Visit _x__ Initial Visit ___ Follow-up Visit ___ On-call Visit ___ General Patient Visit ___ Spiritual Assessment ___ Family Conference ___ Bereavement ___ Rapid Response ___ Code Blue ___ Other (describe below) Pastoral Care Referral From _x__ Patient ___ Family ___ Nurse ___ Physician ___ Registered Pharmacist ___ Corrections Counselor ___ Other (describe below) Sacrament/Intervention _x__ Active listening ___ Anointing ___ Taoist ___ Bereavement ___ Communion ___ Ritika exploration ___ ___ Life review _x__ Prayer ___ Reconciliation ___ Sacrament of Sick _x__ Supportive presence ___ Wedding ___ Other (describe below) Pastoral Comments patient was just finished with therapy and available in the therapy room for a visit; sat with patient and asked questions and explored his feelings and his needs at this time; pt is limited in speaking due to the trach but was understandable and able to answer questions and make comments; pt states that he is feeling so so; when asked about his ritika practices the pt responded that my cousin handles that; pt has family at home when he returns and will have help; pt focus was on do what I have to do one day at a time; patient did say it would be fine to pray for him; offer of future visits accepted
[2024-07-20 16:20] VITALS: BP 103/70; PULSE 83; RESP 20; TEMP 37.3; O2SAT 98
[2024-07-20] MEDS: Jevity 1.5. 1,000 ML Bottle 240 ML GT ×2 (17:29→21:38)
[2024-07-20 19:55] VITALS: PULSE 84; RESP 20; O2SAT 93
[2024-07-20] MEDS: Ipratropium/Albuterol Sulfate 3 ML AMPUL.NEB INHALATION (19:55)
[2024-07-20] MEDS: Atorvastatin Calcium 20 MG Tablet GT (21:35)
[2024-07-20] MEDS: Senna/Docusate Sodium 1 Tablet 2 TABLET GT (21:35)
[2024-07-20] MEDS: Mirtazapine 15 MG Tablet PO (21:35)
[2024-07-21] MEDS: oxyCODONE 5 MG Tablet GT ×2 (05:00→14:12)
[2024-07-21] MEDS: Jevity 1.5. 1,000 ML Bottle 240 ML GT ×5 (05:01→22:57)
[2024-07-21 06:00] VITALS: BP 138/100; PULSE 95; RESP 16; TEMP 36.6; O2SAT 92; BMI 20.4
[2024-07-21 07:28] VITALS: PULSE 85; RESP 16; O2SAT 95
[2024-07-21] MEDS: Ipratropium/Albuterol Sulfate 3 ML AMPUL.NEB INHALATION ×2 (07:28→19:30)
[2024-07-21] MEDS: Famotidine 20 MG Tablet GT ×2 (08:19→22:59)
[2024-07-21] MEDS: Montelukast 10 MG Tablet GT (08:19)
[2024-07-21] MEDS: Polyethylene Glycol 3350 17 GM PACKET GT ×2 (08:19→22:59)
[2024-07-21] MEDS: Senna/Docusate Sodium 1 Tablet 2 TABLET GT ×2 (08:19→22:59)
[2024-07-21] MEDS: Enoxaparin 40 MG/0.4 ML Syringe SC (08:19)
[2024-07-21] MEDS: Gabapentin 600 MG Tablet GT ×3 (08:21→17:59)
[2024-07-21] MEDS: Menthol/Lanolin/Calamine/Znox 113 GM Tube 1 APPLIC TOPICAL ×2 (08:21→22:56)
--- NOTE | 2024-07-21 10:07 | PN_ITS ---
Subjective Subjective Afebrile VSS - Maintaining appropriate oxygen saturation on RA Oral intake - FOOD n.p.o., tolerating tube feed with no residuals. He was transition to bolus feedings yesterday. FLUIDS fluid balance yesterday was positive 460 but he was incontinent a few times of urine so it probably was less than 460.. Had 1 bowel movement on 07/19 and 1 on 07/20 Discussed with nursing -incontinent of urine at times and at other times able to use the urinal. Sleeping well at night. Scant amount of drainage suctioned from the trach and he is able to tell the nurses when he needs suctioned. Reviewed the THERAPY notes Medication list reviewed. Not c/o pain in his feet today to me but, c/o pain in the R great toe and thinks he has a ingrown toenail. He is c/o pain in his bottom......Denies feeling SOB. Denies chest pain, palpitations, lightheadedness, nausea, abdominal pain, dysuria. Therapy is asking if he can maybe use a NC? The trach collar is cumbersome when he is doing therapy. Objective Data Objective Data Vital Signs: Vital Signs Temp Pulse Resp BP Pulse Ox O2 Del Method O2 Flow Rate 97.9 F 85 16 138/100 H 95 Trach Collar 6 07/21/24 06:00 07/21/24 07:28 07/21/24 07:28 07/21/24 06:00 07/21/24 07:28 07/21/24 09:44 07/21/24 07:28 FiO2 30 07/21/24 09:44 Oxygen Flow Rate (L/min) 6 Oxygen Delivery Method Trach Collar Weight: 126 lb 5.198 oz Body Mass Index (BMI) 20.4 Intake & Output: Intake and Output for Last 24 Hours 07/19/24 07/20/24 07/21/24 23:59 23:59 23:59 Intake Total 3280 / 3640 2805 / 2805 735 / 735 Output Total 300 / 700 2345 / 2345 Balance 2980 / 2940 460 / 460 735 / 735 Medical Nutrition Assessment Dietitian: Malnutrition Criteria Met Start: 07/17/24 15:56 Freq: Status: Active Protocol: Document 07/17/24 15:56 SB (Rec: 07/17/24 15:56 SB [id number]) Nutrition Malnutrition Evidence of Malnutrition Exists Yes Malnutrition (severe): Chronic Evidenced By Suboptimal Energy Intake ( Severe),Weight Loss (Severe) Clinical Problem Chronic Disease or Condition Related Malnutrition Etiology severe related to inadequate oral intake and dysphagia Signs/Symptoms as evidenced by 16.6% unintentional weight loss x 3 months and PO meeting <75% of estimated needs x 3 months. Status Active Problem Recommendation Dietitian Recommendations/Changes Continue Jevity 1.5 @ 50ml/hr, will order 150ml flushes every 4 hours providing 1800 calories, 76 grams of protein, 1812ml of fluid/day. Will adjust tube feeding, as needed. Will monitor weight, as available. Review and approved by Vivi Harvey RD, LD. Lab / Micro Data 07/23/24 07:10 07/23/24 07:10 Micro: Microbiology 07/17/24 15:00 Urine Catheter - Catheter Urine Culture - Final Culture exhibits no growth. Physical Exam Const alert General Appearance: cooperative Neck Neck Narrative: trach site is free of erythema and DC General: trachea midline Resp clear to auscultation bilaterally Resp Narrative: Good air exchange Effort and Inspection: Negative for tachypneic Cardio regular rate, regular rhythm and no gallops Cardio Narrative: No ectopy GI normal to inspection, nondistended, normoactive bowel sounds, soft to palpation and non-tender GI Narrative: PEG site has no purulent discharge and no erythema. No guarding with palpation Extremity no calf tenderness Extremity Narrative: Persistent pitting edema of the hands but, better than at admission. The ankle/foot edema is much improved and today he has no significant edema of the ankles or feet. The R great toenail is fungoid and brittle. The is no redness around the nail. The toe is not swollen. Skin Rashes: no rashes Psych Appearance: appropriate Assessment & Plan Assessment/Plan (1) Physical debility: (2) Community acquired pneumonia: (3) Respiratory arrest before cardiac arrest: (4) Cardiopulmonary arrest: (5) Ribs, multiple fractures: QUALIFIERS: Encounter type: subsequent encounter Fracture type: c losed Laterality: unspecified laterality (6) Pneumothorax, right: (7) History of chest tube placement: (8) History of mechanical ventilation: (9) History of tracheostomy: (10) Dysphagia: QUALIFIERS: Dysphagia type: unspecified Qualified Code(s): R13.10 - Dysphagia, unspecified (11) S/P percutaneous endoscopic gastrostomy (PEG) tube placement: (12) Anoxic-ischemic encephalopathy: (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 Continue therapy 2. Recheck BMP and a CBC on AM 3. Continue Remeron 4. Discussed with RT......no humidified O@ per trach collar when he has the PMV on.......it can cause occlusion of the valve. We can try capping the trach and having him use nasal O2 in a few days. 5. nursing to collect a Hemoccult stool 6. check iron studies with lab on 7. Consult Dr. Jackson for malfunctioning PEG tube. Charges/Coding Visit Charges Inpatient E&M: 87645 Subs Hosp L1
--- NOTE | 2024-07-21 15:53 | PCM.PROGNOTE ---
Subjective Subjective Afebrile The blood pressure was 138/100 this morning but this is an outlier. Blood pressures have been well-controlled. Heart rate is within normal limits. He is tolerating bolus tube feedings with no residuals. Objective Data Objective Data Vital Signs: Vital Signs Temp Pulse Resp BP Pulse Ox O2 Del Method O2 Flow Rate 97.9 F 85 16 138/100 H 95 Trach Collar 8 07/21/24 06:00 07/21/24 07:28 07/21/24 07:28 07/21/24 06:00 07/21/24 07:28 07/21/24 09:44 07/21/24 14:49 FiO2 30 07/21/24 09:44 Oxygen Flow Rate (L/min) 8 Oxygen Delivery Method Trach Collar Weight: 126 lb 5.198 oz Body Mass Index (BMI) 20.4 Intake & Output: Intake and Output for Last 24 Hours 07/19/24 07/20/24 07/21/24 23:59 23:59 23:59 Intake Total 3280 / 3640 2805 / 2805 1145 / 1145 Output Total 300 / 700 2345 / 2345 700 / 700 Balance 2980 / 2940 460 / 460 445 / 445 Medical Nutrition Assessment Dietitian: Malnutrition Criteria Met Start: 07/17/24 15:56 Freq: Status: Active Protocol: Document 07/17/24 15:56 SB (Rec: 07/17/24 15:56 SB [id number]) Nutrition Malnutrition Evidence of Malnutrition Exists Yes Malnutrition (severe): Chronic Evidenced By Suboptimal Energy Intake ( Severe),Weight Loss (Severe) Clinical Problem Chronic Disease or Condition Related Malnutrition Etiology severe related to inadequate oral intake and dysphagia Signs/Symptoms as evidenced by 16.6% unintentional weight loss x 3 months and PO meeting <75% of estimated needs x 3 months. Status Active Problem Recommendation Dietitian Recommendations/Changes Continue Jevity 1.5 @ 50ml/hr, will order 150ml flushes every 4 hours providing 1800 calories, 76 grams of protein, 1812ml of fluid/day. Will adjust tube feeding, as needed. Will monitor weight, as available. Review and approved by Vivi Harvey RD, LD. Lab / Micro Data 07/18/24 07:08 07/18/24 07:08 Micro: Microbiology 07/17/24 15:00 Urine Catheter - Catheter Urine Culture - Final Culture exhibits no growth.
[2024-07-21 18:00] VITALS: BP 140/88; PULSE 72; RESP 14; TEMP 36.3; O2SAT 97
[2024-07-21 19:30] VITALS: PULSE 90; RESP 18; O2SAT 95
[2024-07-21 22:24] VITALS: BP 144/76; PULSE 76; RESP 18; TEMP 37.2; O2SAT 97
[2024-07-21] MEDS: Atorvastatin Calcium 20 MG Tablet GT (22:59)
[2024-07-21] MEDS: Mirtazapine 15 MG Tablet PO (23:00)
[2024-07-22] VITALS (12 sets, daily range): BP systolic 103–144; BP diastolic 60–78; PULSE 74–97; RESP 16–20; TEMP 36.1–37.1; O2SAT 93–100; BMI 20.4
[2024-07-22] MEDS: Jevity 1.5. 1,000 ML Bottle 240 ML GT ×4 (06:48→23:42)
[2024-07-22] MEDS: Ipratropium/Albuterol Sulfate 3 ML AMPUL.NEB INHALATION ×2 (06:50→19:18)
[2024-07-22] MEDS: Magnesium Hydroxide 30 ML UDC GT (09:34)
[2024-07-22] MEDS: Menthol/Lanolin/Calamine/Znox 113 GM Tube 1 APPLIC TOPICAL ×2 (09:34→21:13)
[2024-07-22] MEDS: Montelukast 10 MG Tablet GT (09:35)
[2024-07-22] MEDS: Enoxaparin 40 MG/0.4 ML Syringe SC (09:35)
[2024-07-22] MEDS: Senna/Docusate Sodium 1 Tablet 2 TABLET GT ×2 (09:35→21:10)
[2024-07-22] MEDS: Gabapentin 600 MG Tablet GT ×2 (09:35→17:51)
[2024-07-22] MEDS: Famotidine 20 MG Tablet GT ×2 (09:36→21:10)
--- NOTE | 2024-07-22 11:46 | PRE.ANES_ITS ---
ASA Classification* ASA Classification ASA Classification: 3 Assessment & Plan Anesthesia* Anesthesia Assessment Anesthesia Assessment: Discussed sedation and/or anesthesia options, risks, benefits, and alternatives with patient/parents/legal guardian/POA. Questions invited. The patient/parents/legal guardian/POA seems to understand and agrees to proceed with anesthesia plan. Reviewed the physical assessment, medical history, allergy history and patient home medications list prior to surgery/procedure/anesthetic and documented any changes. Performed airway and anesthesia risk assessments. Anesthesia Type Anesthesia Type: MAC (Has Trach in place) Anesthesia Focused Assessment* Temperature: 97.9 F Pulse Rate: 84 Blood Pressure: 108/60 Respiratory Rate: 17 Pulse Ox: 95 Fraction of Inspired Oxygen (FIO2): 30 Airway Assessment Mouth opens: >3 cm Mallampati Score: II Focused Labs Anesthesia Preop lab: CBC WBC 8.7 K/mm3 (4.4-11.0) 07/18/24 07:08 RBC 3.91 M/mm3 (4.6-6.2) L 07/18/24 07:08 Hgb 11.4 g/dL (13.0-16.5) L 07/18/24 07:08 Hct 36.1 % (40-54) L 07/18/24 07:08 Plt Count 269 K/mm3 (150-450) 07/18/24 07:08 CHEMISTRY Potassium 4.1 mmol/L (3.5-5.1) 07/18/24 07:08 Sodium 138 mmol/L (136-145) 07/18/24 07:08 Magnesium 2.0 mg/dL (1.6-2.6) 07/18/24 07:08 Phosphorus 4.7 mg/dL (2.5-4.9) 07/18/24 07:08 BUN 21 mg/dL (7-18) H 07/18/24 07:08 Creatinine 0.61 mg/dL (0.70-1.30) L 07/18/24 07:08 Glucose 133 mg/dL (74-106) H 07/18/24 07:08 POC Glucose 108 mg/dL (74-106) H 07/20/24 07:07 TSH 0.44 uIU/mL (0.358-3.74) 12/07/14 07:30 COAG PT 13.7 SECONDS (11.7-14.9) 03/23/19 22:05 Pre-Assessment Diagnosis/Proposed Procedure Planned Operative Procedure(s): EGD, PEG placement Anesthesia History 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 When Was Last Pacemaker Check QUESTION #4 FULL TEXT: You/Your Family Experience fever (hyperthermia) with Anesthesia Last Oral Intake Last Oral intake: Last Oral Intake NPO since Meds taken in AM with sips of water? 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 - business performance analyst: PONV - business performance analyst Female HX of Motion Sickness HX of N/V After Surgery Non-Smoker Duration of Surgery greater than 60 minutes Number of Risk Factors PONV Score Height & Weight Height & Weight: Anesthesia: Height & Weight Height 5 ft 6 in 07/20/24 12:15 Weight: 57.3 kg 07/22/24 06:00 Body Mass Index (BMI) 20.4 07/22/24 06:00 Respiratory Assessment Respiratory Assessment - business performance analyst: Respiratory Tract Infection Hx - business performance analyst Hx Respiratory Tract Infection No 11/28/22 08:47 STOP Sleep Apnea STOP Sleep Apnea - business performance analyst: STOP Sleep Apnea - business performance analyst Hx Hypertension No 07/18/24 08:14 Hx Sleep Apnea Yes 07/17/24 12:45 CPAP Yes 07/17/24 12:45 BIPAP No 07/17/24 12:45 Do you snore loudly (louder than talking or can be heard Do you often feel tired/ fatigued/ sleepy during daytime? Has anyone observed you stop breathing during sleep? STOP Results Positive 07/17/24 12:45 QUESTION #5 FULL TEXT : Do you snore loudly (louder than talking or can be heard through closed doors)? 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 Specify any problems Hx of Preganancy in last 3 N/A 07/17/24 12:45 Months Nurse Filling Out Transfusion PSTETLER 07/17/24 12:45 & Questions: Date: 07/17/24 07/17/24 12:45 Time: 16:01 07/17/24 12:45 Patient unable to answer at this time (ie. confused, unrespo /Reproduction History /Reproductive History - business performance analyst: /Reproductive Hx- business performance analyst Hx Now Gestational Age (in weeks): EDC: Hx Hx Para Hx Section SAB Active Medications Active Medications: Current Medications Generic Name Dose Route Start Last Admin Trade Name Freq PRN Reason Stop Dose Admin Acetaminophen 650 mg 07/17/24 13:34 Acetaminophen 325 Mg Tablet GT Q6H PRN Pain Score 1-10 Albuterol Sulfate 2.5 mg 07/17/24 13:34 07/17/24 23:30 Albuterol 2.5 Mg/3 Ml Vial.Neb. INHALATION 2.5 mg Q4H PRN Administration shortness of breath or wheezing Albuterol/Ipratropium 3 ml 07/18/24 07:45 07/22/24 06:50 Ipratropium/Albuterol Sulfate 3 Ml Ampul.Neb INHALATION 3 ml BID.RT LAYLA Administration Atorvastatin Calcium 20 mg 07/17/24 22:00 07/21/24 22:59 Atorvastatin Calcium 20 Mg Tablet GT 20 mg QHS LAYLA Administration Bisacodyl 10 mg 07/17/24 13:45 Bisacodyl 10 Mg Suppository RC X1 PRN Constipation Calamine/Phenol 1 applic 07/17/24 22:00 07/22/24 09:34 Menthol/Lanolin/Calamine/Znox 113 Gm Tube TOPICAL 1 applic BID LAYLA Administration Protocol Enoxaparin Sodium 40 mg 07/18/24 10:00 07/22/24 09:35 Enoxaparin 40 Mg/0.4 Ml Syringe SC 40 mg DAILY LAYLA Administration Enteral Nutritional Formula 240 ml 07/20/24 18:00 07/22/24 09:37 Jevity 1.5. 1,000 Ml Bottle GT 240 ml 5X/DAY LAYLA Administration Famotidine 20 mg 07/17/24 22:00 07/22/24 09:36 Famotidine 20 Mg Tablet GT 20 mg BID LAYLA Administration Gabapentin 600 mg 07/17/24 17:00 07/22/24 11:14 Gabapentin 600 Mg Tablet GT Not Given TIDCM LAYLA Magnesium Hydroxide 30 ml 07/17/24 13:45 07/22/24 09:34 Magnesium Hydroxide 30 Ml Udc GT 30 ml X1 PRN Administration Constipation Mirtazapine 15 mg 07/18/24 22:00 07/21/24 23:00 Mirtazapine 15 Mg Tablet PO 15 mg QHS LAYLA Administration Montelukast Sodium 10 mg 07/18/24 10:00 07/22/24 09:35 Montelukast 10 Mg Tablet GT 10 mg DAILY LAYLA Administration Oxycodone HCl 5 mg 07/17/24 16:31 07/21/24 14:12 Oxycodone 5 Mg Tablet GT 5 mg Q4H PRN PRN Administration Pain Score 4-10 Polyethylene Glycol 17 gm 07/17/24 22:00 07/22/24 11:07 Polyethylene Glycol 3350 17 Gm Packet GT Not Given BID LAYLA Senna/Docusate Sodium 2 tablet 07/17/24 22:00 07/22/24 09:35 Senna/Docusate Sodium 1 Tablet GT 2 tablet BID LAYLA Administration Sodium Chloride 10 - 40 ml 07/18/24 00:38 07/19/24 21:54 0.9% Saline Lock 10 Ml Syringe IV 20 ml UD PRN Administration [facility] Medical History Wears dentures Wears glasses Arthritis Back pain History of hiatal hernia History of ulceration Gastric reflux Smoker Sleep apnea Hypertension History of pain when walking History of echocardiogram History of stress test Cardiology follow-up encounter History of heart attack GERD (gastroesophageal reflux disease) Dysphagia Hypersomnia Bronchiectasis Asthma-COPD overlap syndrome BPH (benign prostatic hyperplasia) Paroxysmal atrial tachycardia Paroxysmal ventricular tachycardia Premature ventricular contraction Presence of stent in coronary artery (~06/27/08) Atherosclerotic heart disease of [place] coronary artery without angina pectoris Ischemic cardiomyopathy HLD (hyperlipidemia) History of pulmonary embolism Nicotine abuse Home Medications ?Medication ?Instructions ?Recorded ?Last Taken ?Type clopidogrel 75 mg tablet 75 mg PO QHS blood thinner 06/16/13 11/27/22 History atorvastatin 20 mg tablet 20 mg PO QHS CHOLESTEROL 12/12/21 07/16/24 History gabapentin 600 mg tablet 600 mg PO QHS PRN Pain 12/12/21 Unknown History montelukast 10 mg tablet 10 mg PO QHS BREATHING 12/12/21 07/17/24 History (Singulair) PEP device 01/30/22 Unknown History omeprazole 20 mg capsule,delayed 40 mg (2 x 20 mg) PO BID GERD #120 12/20/22 Unknown Rx release caps albuterol sulfate 2.5 mg/3 mL 2.5 mg (3 mL) inhalation Q4H PRN 09/26/23 Unknown Rx (0.083 %) solution for nebulization shortness of breath or wheezing #180 mL acetaminophen 325 mg tablet 650 mg PO Q6H PRN pain 07/17/24 Unknown History (Tylenol) enoxaparin 40 mg/0.4 mL 40 mg subcut DAILY Blood thinne 07/17/24 Unknown History subcutaneous syringe (Lovenox) famotidine 20 mg tablet (Pepcid) 20 mg PO BID GERD 07/17/24 07/17/24 History glucose 4 gram chewable tablet 4 g PO Q15M PRN low blood sugar 07/17/24 Unknown History (Dex4 Glucose) ipratropium 0.5 mg-albuterol 3 mg 3 ml inhalation BID shortness of 07/17/24 07/17/24 History (2.5 mg base)/3 mL nebulization breath/wheeze soln lidocaine 4 % topical patch 1 patch topical DAILY pain 07/17/24 Unknown History oxycodone 5 mg tablet 5 - 10 mg PO Q4H PRN Pain 07/17/24 07/17/24 History polyethylene glycol 3350 17 17 g PO BID Constipation 07/17/24 07/16/24 History gram/dose oral powder sennosides 8.6 mg-docusate sodium 2 tab-cap PO BID Constipation 07/17/24 Unknown History 50 mg tablet (Senna with Docusate Sodium) Allergy/AdvReac Type Severity Reaction Status Date / Time latex Allergy Rash Verified 05/04/24 17:15 varenicline tartrate (From Allergy Hives Verified 05/04/24 17:15 Chantix) aspirin AdvReac Upset Verified 05/04/24 17:15 Stomach Family History Father , age 50 CAD (coronary artery disease) Heart disease Myocardial infarction Mother Diabetes Brother Hypertension Surgical History History of tracheostomy Hx of carpal tunnel repair Hx of angioplasty History of cardiac catheterization History of coronary artery stent placement Hx of shoulder surgery Hx of sinus surgery Hx of nasal sinusotomy Hx of cystoscopy Hx of tonsillectomy History of thumb surgery Hx of right knee surgery Presence of coronary angioplasty implant and graft (~06/27/08) History of hernia repair Social History household members: significant other and children Smoking Status: Current every day smoker tobacco type: cigarettes alcohol intake: never substance use type: does not use caffeine: Yes Type: coffee Number of servings: 3 what type of physical activity do you participate in: walking frequency: daily duration: 45-60 minutes/day seatbelt use: always do you feel safe at home: Yes Review of Systems (Anesthesia) ROS Narrative System reviewed and no additional complaints, except as documented.
--- NOTE | 2024-07-22 12:54 | EX.PCM.CON.G ---
HPI Consult Data Date of Consult: 07/22/24 HPI Narrative Reason for Consultation: PEG malfunction HPI Narrative: CHIO DENT, is a 63 YO M with a past medical history of tobacco dependence and COPD/emphysema who presented to [facility] Emergency department on 06/04/2024 from an outside hospital following acute cardiac arrest with ROSC. He had severe acute hypoxic/hypercapnic respiratory failure with agonal respirations when EMS picked him up. He had been sick for a few days prior. On the way to the OSH in the ambulance he had cardiac arrest and had CPR with ROSC. Upon arrival to the emergency department he was noted to have multiple fractured ribs and a right-sided pneumothorax. He was intubated and started on mechanical ventilation. He was then transferred to [facility] Emergency department for admission. A large bore chest tube was placed. A respiratory culture ultimately grew Klebsiella oxytoca and the patient was treated with Zosyn. On 06/17/2024 an MRI of the brain revealed a possible small area of extra-axial hemorrhage and the patient was noted to have cervical spondylosis without significant canal stenosis at any level. He was noted to have cervical foraminal stenosis, to a severe degree on the left at C3-C4. An incidental finding on the MRI was a 12 mm T2 hyperintense ovoid lesion in the right parotid which may represent a malignancy. Will need to be further evaluated going forward. Neurosurgery recommended no acute surgical intervention at that time. 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 There were no seizures noted. He could not be weaned from the ventilator and so on 06/18/2024 he had a tracheostomy and PEG tube placed. He was then transferred to [facility] long-term acute care on 06/23/2024. He was weaned from the ventilator while at [facility]3]. He has become more alert and is following commands. He is very weak. He was transferred from [facility] LTAC to acute rehab at [facility] on 07/17/24 for 3 hours of therapy daily. I was asked to see him due to his PEG malfunctioning and not being able to be flushed. [facility] Medical History Wears dentures Wears glasses Arthritis Back pain History of hiatal hernia History of ulceration Gastric reflux Smoker Sleep apnea Hypertension History of pain when walking History of echocardiogram History of stress test Cardiology follow-up encounter History of heart attack GERD (gastroesophageal reflux disease) Dysphagia Hypersomnia Bronchiectasis Asthma-COPD overlap syndrome BPH (benign prostatic hyperplasia) Paroxysmal atrial tachycardia Paroxysmal ventricular tachycardia Premature ventricular contraction Presence of stent in coronary artery (~06/27/08) Atherosclerotic heart disease of [place] coronary artery without angina pectoris Ischemic cardiomyopathy HLD (hyperlipidemia) History of pulmonary embolism Nicotine abuse Home Medications ?Medication ?Instructions ?Recorded ?Last Taken ?Type clopidogrel 75 mg tablet 75 mg PO QHS blood thinner 06/16/13 11/27/22 History atorvastatin 20 mg tablet 20 mg PO QHS CHOLESTEROL 12/12/21 07/16/24 History gabapentin 600 mg tablet 600 mg PO QHS PRN Pain 12/12/21 Unknown History montelukast 10 mg tablet 10 mg PO QHS BREATHING 12/12/21 07/17/24 History (Singulair) PEP device 01/30/22 Unknown History omeprazole 20 mg capsule,delayed 40 mg (2 x 20 mg) PO BID GERD #120 12/20/22 Unknown Rx release caps albuterol sulfate 2.5 mg/3 mL 2.5 mg (3 mL) inhalation Q4H PRN 09/26/23 Unknown Rx (0.083 %) solution for nebulization shortness of breath or wheezing #180 mL acetaminophen 325 mg tablet 650 mg PO Q6H PRN pain 07/17/24 Unknown History (Tylenol) enoxaparin 40 mg/0.4 mL 40 mg subcut DAILY Blood thinne 07/17/24 Unknown History subcutaneous syringe (Lovenox) famotidine 20 mg tablet (Pepcid) 20 mg PO BID GERD 07/17/24 07/17/24 History glucose 4 gram chewable tablet 4 g PO Q15M PRN low blood sugar 07/17/24 Unknown History (Dex4 Glucose) ipratropium 0.5 mg-albuterol 3 mg 3 ml inhalation BID shortness of 07/17/24 07/17/24 History (2.5 mg base)/3 mL nebulization breath/wheeze soln lidocaine 4 % topical patch 1 patch topical DAILY pain 07/17/24 Unknown History oxycodone 5 mg tablet 5 - 10 mg PO Q4H PRN Pain 07/17/24 07/17/24 History polyethylene glycol 3350 17 17 g PO BID Constipation 07/17/24 07/16/24 History gram/dose oral powder sennosides 8.6 mg-docusate sodium 2 tab-cap PO BID Constipation 07/17/24 Unknown History 50 mg tablet (Senna with Docusate Sodium) Allergy/AdvReac Type Severity Reaction Status Date / Time latex Allergy Rash Verified 05/04/24 17:15 varenicline tartrate (From Allergy Hives Verified 05/04/24 17:15 Chantix) aspirin AdvReac Upset Verified 05/04/24 17:15 Stomach Family History Father , age 50 CAD (coronary artery disease) Heart disease Myocardial infarction Mother Diabetes Brother Hypertension Surgical History History of tracheostomy Hx of carpal tunnel repair Hx of angioplasty History of cardiac catheterization History of coronary artery stent placement Hx of shoulder surgery Hx of sinus surgery Hx of nasal sinusotomy Hx of cystoscopy Hx of tonsillectomy History of thumb surgery Hx of right knee surgery Presence of coronary angioplasty implant and graft (~06/27/08) History of hernia repair Social History household members: significant other and children Smoking Status: Current every day smoker tobacco type: cigarettes alcohol intake: never substance use type: does not use caffeine: Yes Type: coffee Number of servings: 3 what type of physical activity do you participate in: walking frequency: daily duration: 45-60 minutes/day seatbelt use: always do you feel safe at home: Yes ROS Constitutional Constitutional: Reports change in weight, fatigue, weakness, weight loss and other Details: he is NPO for dysphagia. Has lost about 30 lbs in the past 3 month ; Denies anorexia, chills, fever(s) or night sweats Eyes Eyes: Denies blurry vision, change in vision, discharge from eye(s), eye pain, itchy eyes or loss of vision ENT HEENT: Reports dry mouth, dysphagia and other Details: R parotid mass ; Denies abnormal hearing, epistaxis, facial pain, headache(s), hearing loss, mouth pain, nasal congestion, sinus pain or sore throat Cardiovascular Cardiovascular: Reports edema and weakness in extremities; Denies chest pain, lightheadedness, orthopnea, palpitations, periorbital swelling, racing heartbeat, syncope or vomiting Respiratory/Chest Respiratory/Chest: Denies cough, dyspnea, excessive phlegm production, shortness of breath at rest or wheezing Gastrointestinal Gastrointestinal: Denies abdominal pain, constipation, diarrhea, dyspepsia, hematemesis, hematochezia, nausea or vomiting Genitourinary Genitourinary: Reports other Details: He has a Albright catheter in place for urine retention. Denies suprapubic pain. ; Denies dysuria, hematuria, nocturia, urinary frequency, urinary hesitancy, urinary incontinence or urinary urgency Musculoskeletal Musculoskeletal: Reports back pain, radiating pain into limb and other Details: He is complaining of pain and both distal lower extremities which he attributes to neuropathy. Tells me that Neurontin has not helped with the pain. ; Denies joint pain, joint swelling or neck pain Integumentary Integumentary: Denies jaundice or rash Neurologic Neurologic: Reports weakness and other Details: Generalized weakness ; Denies confusion, disequilibrium, dizziness, focal weakness, headache(s), paresthesias, seizures or tremor(s) Psychiatric Psychiatric: Reports abnormal sleep pattern, depression and other Details: Flat affect. Tells me that he has not been sleeping well. This started long before the cardiopulmonary arrest on 06/04/2024. ; Denies anxiety, homicidal ideation or suicidal ideation Endocrine Endocrinology: Reports change in body appearance; Denies polydipsia or polyuria Hematologic/Lymphatic Hematologic/Lymphatic: Denies easy bleeding, easy bruising or lymphadenopathy Allergic/Immunologic Allergic/Immunologic: Reports asthma; Denies rhinitis or eczemia Physical Exam Const alert, oriented x3 and no apparent distress General Appearance: cooperative Resp clear to auscultation bilaterally Resp Narrative: CTA anterior and lateral. Good air exchange. He is not tachypneic. 96-98% on trach collar at 30%........will discuss weaning the O2 with RT. Effort and Inspection: Negative for tachypneic, respiratory distress, labored or uses accessory muscles Cardio regular rate, regular rhythm, no murmurs, no rub and no gallops Cardio Narrative: No ectopy GI normal to inspection, nondistended, normoactive bowel sounds, soft to palpation and non-tender GI Narrative: No guarding with palpation. The PEG site has no discharge and no erythema surrounding the site. No tenderness to palpation around the area. Extremity Extremity Narrative: Edema in the hands and feet is decreasing. Medical Records Data Medical Nutrition Assessment Dietitian: Malnutrition Criteria Met Start: 07/17/24 15:56 Freq: Status: Active Protocol: Document 07/17/24 15:56 SB (Rec: 07/17/24 15:56 SB [id number]) Nutrition Malnutrition Evidence of Malnutrition Exists Yes Malnutrition (severe): Chronic Evidenced By Suboptimal Energy Intake ( Severe),Weight Loss (Severe) Clinical Problem Chronic Disease or Condition Related Malnutrition Etiology severe related to inadequate oral intake and dysphagia Signs/Symptoms as evidenced by 16.6% unintentional weight loss x 3 months and PO meeting <75% of estimated needs x 3 months. Status Active Problem Recommendation Dietitian Recommendations/Changes Continue Jevity 1.5 @ 50ml/hr, will order 150ml flushes every 4 hours providing 1800 calories, 76 grams of protein, 1812ml of fluid/day. Will adjust tube feeding, as needed. Will monitor weight, as available. Review and approved by Vivi Harvey RD, LD. Lab / Micro Data 07/18/24 07:08 07/18/24 07:08 Assessment & Plan Assessment/Plan (1) Malfunction of percutaneous endoscopic gastrostomy (PEG) tube: PLAN: 7-year-old gentleman with past medical history of COPD, gastroesophageal disease, PVT, PAT who arrives here status post cardiac arrest with resuscitation but then requiring tracheostomy and PEG tube. His PEG tube has been malfunctioning. We will take him down to endoscopy and replace his PEG. He was explained alternatives, risk and benefits include not withstanding bleeding, infection, sepsis, perforation, need for more charge and . He will have an ASA of 3. Charges/Coding Visit Charges Inpatient E&M: 81687 Init Hosp L3
[2024-07-22] MEDS: Silver Nitrate (BKC) 1 EACH (13:42)
--- NOTE | 2024-07-22 14:03 | PCM.POST.ANE ---
Anesthesia: Postop Eval I Current Vital Signs Temperature: 97.5 F Pulse Rate: 77 Blood Pressure: 112/78 Respiratory Rate: 16 Pulse Ox: 100 Oxygen Delivery Method: Nasal Cannula Oxygen Flow Rate (L/min): 6 Assessment Airway patent: Yes Spontaneous unlabored respirations: Yes Mental status: Asleep nausea: No Vomiting: No Anesthesia Complication: No Fluid Hydration Crystalloid volume administer (ml): 100 Total IV fluid infused: 100 Progress Note Anesthesia document: Postop Eval 1 completed: Yes
--- NOTE | 2024-07-22 16:12 | PCM.POSTANE2 ---
Anesthesia Postop Eval I Sum Postop Eval Completion status Anesthesia document: Postop Eval 1 completed: Yes Anesthesia Postop Eval I Summary Anesthesia Postop Eval I Summary: Anesthesia Postop Eval I: Assessment Summary Airway patent Yes 07/22/24 14:04 [email or web address] Spontaneous unlabored Yes 07/22/24 14:04 [email or web address] respirations Mental status Asleep 07/22/24 14:04 [email or web address] nausea No 07/22/24 14:04 [email or web address] Vomiting No 07/22/24 14:04 [email or web address] Anesthesia Postop Eval I: Fluid Summary Crystalloid volume administer 100 07/22/24 14:04 [email or web address] (ml) Colloids volume administered ( ml) Blood Product volume administered (ml) Total IV fluid infused 100 07/22/24 14:04 [email or web address] Anesthesia Postop Eval I: Summary Notes Anesthesia Complication No 07/22/24 14:04 [email or web address] Anesthesia Complication Comment: Post-operative progress note Anesthesia: Postop Eval II Evaluation Mental status: Awake and Calm Pain Level: 0 nausea: No Vomiting: No Complications Anesthesia Complication: No
[2024-07-22] MEDS: Mirtazapine 15 MG Tablet PO (21:10)
[2024-07-22] MEDS: Atorvastatin Calcium 20 MG Tablet GT (21:10)
[2024-07-23] VITALS (9 sets, daily range): BP systolic 114–116; BP diastolic 68; PULSE 81–98; RESP 16–20; TEMP 36.8–37.3; O2SAT 95–98; BMI 20.9
[2024-07-23] MEDS: oxyCODONE 5 MG Tablet GT ×3 (05:03→23:18)
[2024-07-23] MEDS: Jevity 1.5. 1,000 ML Bottle 240 ML GT ×5 (05:03→23:20)
[2024-07-23] MEDS: Acetaminophen 325 MG Tablet 650 MG GT (05:04)
[2024-07-23] MEDS: Ipratropium/Albuterol Sulfate 3 ML AMPUL.NEB INHALATION ×2 (07:30→19:28)
[2024-07-23 07:41] LABS: Hemoglobin 10.8 g/dL (13.0-16.5); Mean Corp Hgb Conc 30.9 g/dL (32-36); Mean Corpuscular Hgb 28.7 pg (27.0-32.0); Mean Corpuscular Volume 93.1 fL (80-94); Mean Platelet Vol. 11.1 fl (6.2-12.0); Platelet Count 297 K/mm3 (150-450); RBC Distribution Width CV 14.9 % (11.6-14.6); RBC Distribution Width SD 51.6 fl (35.1-43.9); Red Blood Count 3.76 M/mm3 (4.6-6.2); White Blood Count 10.1 K/mm3 (4.4-11.0)
[2024-07-23 07:52] LABS: Anion Gap 5 (5-15); BUN 14 mg/dL (7-18); Calcium,Total 8.6 mg/dL (8.5-10.1); Chloride 100 mmol/L (98-107); Creatinine, Serum 0.56 mg/dL (0.70-1.30); EST Glomerular Filtration Rate 156 mL/min (>60); Est Glom Filt Rate - Afr Amer 189 mL/min (>60); Estimated Creatinine Clearance 110.85 ml/min; Ferritin 107 ng/mL (26-388); Glucose 148 mg/dL (74-106); Iron 39 ug/dL (65-175); Iron Binding Capacity,Total 232 ug/dL (250-450); PERCENT IRON SATURATION 16.8 % (15.0-55.0); Potassium 4.2 mmol/L (3.5-5.1); Sodium Level 136 mmol/L (136-145)
--- NOTE | 2024-07-23 09:19 | US_ITS ---
STUDY: ABDOMINAL ULTRASOUND - RIGHT UPPER QUADRANT REASON FOR VISIT: Male, 63 years old suspected abscess at PEG site TECHNIQUE: Ultrasound evaluation of the right upper quadrant was performed with real-time and static zeng-scale imaging. TECHNICAL QUALITY: Adequate. COMPARISON: None. FINDINGS: Imaging of the area surrounding the PEG insertion site was obtained. The overlying skin is thickened measuring 1.2 cm. No evidence of fluid collection or abscess. US/Abdomen Limited IMPRESSION: No abnormal fluid or abscess seen at the site of the insertion of the PEG tube. Overlying skin thickening measuring 1.2 cm. Electronically Signed: Gerardo Ruby MD at 15:16 EST ,
--- NOTE | 2024-07-23 09:26 | PN_ITS ---
Subjective Subjective Afebrile VSS -pulse ox was just 95% on room air. He tolerates nasal cannula and denies shortness of breath. Maintaining appropriate oxygen saturation on RA Oral intake - FOOD remains n.p.o. FLUIDS fluid balance yesterday was - 815.......... tube feed was held because of a malfunctioning PEG tube. Overnight he was +40. TF restarted after the PEG replacement Discussed with nursing - Scanned bladder this AM because he had not voided and he had 374 in the bladder. Prior to doing straight cath he was able to void 300 and no straight cath was done. Nursing reports DC around the PEG site and he had to have the dressing replaced 3 times last night. Medication list reviewed. He is c/on pain around the PEG site. Denies nausea. the R great toe feels better today.......apparently one of the nurses cut the toenail. Was not seen by podiatry. No CP and no palpitations. Denies pain at the trach site. Denies dysuria and has no calf tenderness. All lab from today was personally reviewed. The white blood cell count is high normal at 10.1, up from 8.7 on 07/18/2024. He has a mild left shift with 75% neutrophils and 1.5% immature granulocytes. Hemoglobin is 10.8, down from 11.4 on 07/18/2024 (I suspect the small change may be due to better hydration as the BUN is decreased from 21-14 since the last CBC). Sodium is 136 and the potassium is 4.2. The BUN is 14, down from 21 on 07/18/2024. Creatinine is stable at 0.56. Serum iron is decreased at 39 but the percent iron saturation is normal at 16.8%. Ferritin is 107. Objective Data Objective Data Vital Signs: Vital Signs Temp Pulse Resp BP Pulse Ox O2 Del Method O2 Flow Rate 98.2 F 81 16 114/68 98 Trach Collar 8 07/23/24 06:00 07/23/24 07:30 07/23/24 07:30 07/23/24 06:00 07/23/24 06:00 07/23/24 06:00 07/23/24 06:00 FiO2 30 07/23/24 07:30 Oxygen Flow Rate (L/min) 8 Oxygen Delivery Method Trach Collar Weight: 126 lb 5.198 oz Body Mass Index (BMI) 20.4 Intake & Output: Intake and Output for Last 24 Hours 07/21/24 07/22/24 07/23/24 23:59 23:59 23:59 Intake Total 1880 / 1880 935 / 1105 340 / 340 Output Total 700 / 700 1750 / 1750 300 / 300 Balance 1180 / 1180 -815 / -645 40 / 40 Medical Nutrition Assessment Dietitian: Malnutrition Criteria Met Start: 07/17/24 15:56 Freq: Status: Active Protocol: Document 07/17/24 15:56 SB (Rec: 07/17/24 15:56 SB [id number]) Nutrition Malnutrition Evidence of Malnutrition Exists Yes Malnutrition (severe): Chronic Evidenced By Suboptimal Energy Intake ( Severe),Weight Loss (Severe) Clinical Problem Chronic Disease or Condition Related Malnutrition Etiology severe related to inadequate oral intake and dysphagia Signs/Symptoms as evidenced by 16.6% unintentional weight loss x 3 months and PO meeting <75% of estimated needs x 3 months. Status Active Problem Recommendation Dietitian Recommendations/Changes Continue Jevity 1.5 @ 50ml/hr, will order 150ml flushes every 4 hours providing 1800 calories, 76 grams of protein, 1812ml of fluid/day. Will adjust tube feeding, as needed. Will monitor weight, as available. Review and approved by Vivi Harvey RD, LD. Lab / Micro Data 07/23/24 07:10 07/23/24 07:10 Labs: Laboratory Results - last 24 hr 07/23/24 07:10: WBC 10.1, RBC 3.76 L, Hgb 10.8 L, Hct 35.0 L, MCV 93.1, MCH 28.7, MCHC 30.9 L, RDW Std Deviation 51.6 H, RDW Coeff of [place] 14.9 H, Plt Count 297, MPV 11.1, Sodium 136, Potassium 4.2, Chloride 100, Carbon Dioxide 31.0, Anion Gap 5, BUN 14, Creatinine 0.56 L, Estim Creat Clear Calc 110.85, Est GFR (MDRD) Af Amer 189, Est GFR (MDRD) Non-Af 156, BUN/Creatinine Ratio 25.0 H, G lucose 148 H, Calcium 8.6, Iron 39 L, TIBC 232 L, Iron Saturation 16.8, Ferritin 107 Micro: Microbiology 07/17/24 15:00 Urine Catheter - Catheter Urine Culture - Final Culture exhibits no growth. Physical Exam Const alert and no apparent distress General Appearance: cooperative Resp clear to auscultation bilaterally Resp Narrative: Has a NC on and denies SOB. He is not tachypneic. Effort and Inspection: Negative for tachypneic, labored or uses accessory muscles GI GI Narrative: There is erythema around the PEG site and there is purulent Drainage from the site. No odor. He has pain with palpation around the PEG. The PEG now flushes easily and there is no resistance with the TF boluses now. the abd is not distended. No pain with palpation in the lower quadrants. Extremity no calf tenderness Extremity Narrative: mild pitting edema of the hands. No ankle edema today. r great toe has no paronychia inflammation and there is no drainage from around the nail. He denied pain today. Skin Rashes: no rashes Psych Psych Narrative: always cooperative. sleeping off and on at night. Not tearful. Not restless. Tolerating Remeron 15 mg at HS with no adverse side effects. Assessment & Plan Assessment/Plan (1) Physical debility: (2) History of tracheostomy: (3) Dysphagia: QUALIFIERS: Dysphagia type: unspecified Qualified Code(s): R13.10 - Dysphagia, unspecified (4) S/P percutaneous endoscopic gastrostomy (PEG) tube placement: (5) Anoxic-ischemic encephalopathy: (6) Mass of right parotid gland: (7) Asthma-COPD overlap syndrome: (8) Depression: (9) Malfunction of percutaneous endoscopic gastrostomy (PEG) tube: (10) Cellulitis: PLAN: I suspect he may have had an abscess at the PEG site and this may have been causing the malfunction of the PEG. PLAN: Plan 1. Continue therapy 2. Culture the drainage from around the PEG site and order an MRSA PCR on the drainage. 3. Start Ancef 1 g IV every 8 hours 4. Reminded him that if he needs pain medication he needs to ask for it. 5. Continue Remeron 6. Soft tissue ultrasound around the PEG site looking for a possible abscess. 7. Add multivitamin with iron per PEG tube once daily would like to see the iron saturation at 20. 8. Pulse ox was 95% on room air at rest today. Will use oxygen per nasal cannula during the day to maintain his pulse ox 92 or greater. He will have humidified oxygen via the trach collar at night. Charges/Coding Visit Charges Inpatient E&M: 52429 Subs Hosp L2
[2024-07-23] MEDS: Montelukast 10 MG Tablet GT (09:41)
[2024-07-23] MEDS: Famotidine 20 MG Tablet GT ×2 (09:42→23:18)
[2024-07-23] MEDS: Gabapentin 600 MG Tablet GT ×3 (09:42→17:39)
[2024-07-23] MEDS: Senna/Docusate Sodium 1 Tablet 2 TABLET GT ×2 (09:42→23:18)
[2024-07-23] MEDS: Enoxaparin 40 MG/0.4 ML Syringe SC (09:42)
[2024-07-23] MEDS: Polyethylene Glycol 3350 17 GM PACKET GT ×2 (09:54→23:23)
[2024-07-23] MEDS: Menthol/Lanolin/Calamine/Znox 113 GM Tube 1 APPLIC TOPICAL (11:25)
--- NOTE | 2024-07-23 12:34 | OP.CCLET_ITS ---
07/23/2024 Alexey Mayberry [address] [place] [address] Re : Upper GI endoscopy procedure for Panchito Lima Dear Dr. Mayberry This procedure was performed on Monday, July 22, 2024. My impressions and recommendations are as follows: Impressions : - Normal esophagus. - Ulcer and a buried G-tube in the wall was present. A small incision was made on the abdomen to remove the intra-abdominal G-tube. He was given antibiotics during the procedure. - Normal second portion of the duodenum. Biopsied. - An endoscopically removable PEG placement was successfully completed. Recommendations : - Return patient to [facility] for ongoing care. - Resume previous diet. - Continue present medications. My findings are described in the full procedure note, which is enclosed. If I can be of further assistance, please feel free to contact me at . Sincerely, David Jackson, 07/23/2024 12:33:36 PM This report has been signed electronically.
--- NOTE | 2024-07-23 12:34 | OP.EGD_ITS ---
Patient Name: Panchito Lima Procedure Date: 07/22/2024 12:55 PM Date of : 1960 Age: 63 Procedure: Upper GI endoscopy Indications: Dysphagia, Replace PEG tube, Replace PEG tube due to malfunctioning gastrostomy tube Providers: David Jackson DO Referring MD: Claudine Machado Medicines: Monitored Anesthesia Care Patient Profile: This is a 63 year old male. Refer to note in patient chart for documentation of history and physical. Patient has symptoms of dysphagia with both liquids and solids. His most recent EGD for PEG placement. Complications: No immediate complications. Procedure: Pre-Anesthesia Assessment: - Prior to the procedure, a History and Physical was performed, and patient medications and allergies were reviewed. The patient is competent. The risks and benefits of the procedure and the sedation options and risks were discussed with the patient. All questions were answered and informed consent was obtained. Patient identification and proposed procedure were verified by the physician in the pre-procedure area. Mental Status Examination: alert and oriented. Airway Examination: normal oropharyngeal airway and neck mobility. Respiratory Examination: clear to auscultation. CV Examination: normal. Prophylactic Antibiotics: The patient does not require prophylactic antibiotics. Prior Anticoagulants: The patient has taken no anticoagulant or antiplatelet agents. ASA Grade Assessment: III - A patient with severe systemic disease. After reviewing the risks and benefits, the patient was deemed in satisfactory condition to undergo the procedure. The anesthesia plan was to use monitored anesthesia care (MAC). Immediately prior to administration of medications, the patient was re-assessed for adequacy to receive sedatives. The heart rate, respiratory rate, oxygen saturations, blood pressure, adequacy of pulmonary ventilation, and response to care were monitored throughout the procedure. The physical status of the patient was re-assessed after the procedure. After obtaining informed consent, the endoscope was passed under direct vision. Throughout the procedure, the patient's blood pressure, pulse, and oxygen saturations were monitored continuously. The gastroscope was introduced through the mouth, and advanced to the second part of duodenum. The upper GI endoscopy was accomplished without difficulty. The patient tolerated the procedure well. Scope In: 1:11:05 PM Scope Out: 1:46:15 PM Total Procedure Duration Time 0 hours 35 minutes 10 seconds Findings: The examined esophagus was normal. There was evidence of an Ulcer and a buried G-tube in the wall present in the gastric body. The patient was placed in the supine position for PEG placement. The stomach was insufflated to appose gastric and abdominal pulido. A site was located in the body of the stomach with excellent transillumination for placement. The abdominal wall was marked and prepped in a sterile manner. The area was anesthetized with 1 mL of 0.5% lidocaine. The trocar needle was introduced through the abdominal wall and into the stomach under direct endoscopic view. A snare was introduced through the endoscope and opened in the gastric lumen. The guide wire was passed through the trocar and into the open snare. The snare was closed around the guide wire. The endoscope and snare were removed, pulling the wire out through the mouth. A skin incision was made at the site of needle insertion. The endoscopically removable 20 Fr Bard gastrostomy tube was lubricated. The G-tube was tied to the guide wire and pulled through the mouth and into the stomach. The trocar needle was removed, and the gastrostomy tube was pulled out from the stomach through the skin. The external bumper was attached to the gastrostomy tube, and the tube was cut to remove the guide wire. The final position of the gastrostomy tube was confirmed by relook endoscopy, and skin marking noted to be 4 cm at the external bumper. The final tension and compression of the abdominal wall by the PEG tube and external bumper were checked and revealed that the bumper was loose and lightly touching the skin. The feeding tube was capped, and the tube site cleaned and dressed. The second portion of the duodenum was normal. Biopsies were taken with a cold forceps for histology. Verification of patient identification for the specimen was done. Estimated blood loss was minimal. Impression: - Normal esophagus. - Ulcer and a buried G-tube in the wall was present. A small incision was made on the abdomen to remove the intra-abdominal G-tube. He was given antibiotics during the procedure. - Normal second portion of the duodenum. Biopsied. - An endoscopically removable PEG placement was successfully completed. Recommendation: - Return patient to [facility] for ongoing care. - Resume previous diet. - Continue present medications. Procedure Code(s): --- Professional --- 61095, Esophagogastroduodenoscopy, flexible, transoral; with directed placement of percutaneous gastrostomy tube 55575, Esophagogastroduodenoscopy, flexible, transoral; with biopsy, single or multiple CPT copyright 2021 [employer]. All rights reserved. The codes documented in this report are preliminary and upon dissolver operator review may be revised to meet current compliance requirements. David Jackson DO 07/23/2024 12:33:36 PM This report has been signed electronically. Number of Addenda: 0 Note Initiated On: 07/22/2024 12:55 PM
--- NOTE | 2024-07-23 13:25 | CASEMGMT ---
Social Work IDT met with patient and conference call with dtr for Team meeting. Discussed patient's progress in PT/OT/ST/S. Educated to [facility] insurance with [employer] 05/18, updating every 7 days, and IDT is responsible for setting DC date. Pt is making progress and will ReTeam weekly. Pt is total assist, new trache, new peg, and does not have full movement in arms/hands. SW will continue to follow and assist with DC planning. Kristina Parikh, SUPPLY COORDINATOR GENERAL REPAIR MECHANIC
[2024-07-23] MEDS: Cefazolin 1 GM/50 ML BAG IV ×2 (14:12→23:25)
[2024-07-23] MEDS: 0.9% Saline Lock 10 ML Syringe IV ×3 (14:13→23:55)
[2024-07-23 19:39] LABS: M R Staph aureus DNA By PCR Negative (Negative); Probe Check PASS; Specimen Processing Control PASS
[2024-07-23] MEDS: Acetaminophen 650 MG/20 ML UDC GT (23:18)
[2024-07-23] MEDS: Atorvastatin Calcium 20 MG Tablet GT (23:19)
[2024-07-23] MEDS: Mirtazapine 15 MG Tablet PO (23:19)
[2024-07-24] MEDS: Menthol/Lanolin/Calamine/Znox 113 GM Tube 1 APPLIC TOPICAL ×3 (00:02→22:22)
[2024-07-24 05:36] VITALS: BP 131/67; PULSE 76; RESP 18; TEMP 36.6; O2SAT 98
[2024-07-24 05:37] VITALS: BMI 21.0
[2024-07-24] MEDS: Jevity 1.5. 1,000 ML Bottle 240 ML GT ×4 (05:39→22:28)
[2024-07-24] MEDS: Acetaminophen 650 MG/20 ML UDC GT (05:39)
[2024-07-24] MEDS: 0.9% Saline Lock 10 ML Syringe IV ×3 (07:26→22:57)
[2024-07-24] MEDS: Cefazolin 1 GM/50 ML BAG IV ×3 (07:26→22:22)
[2024-07-24] MEDS: Ipratropium/Albuterol Sulfate 3 ML AMPUL.NEB INHALATION ×2 (07:35→20:42)
[2024-07-24 07:45] VITALS: PULSE 75; RESP 16; O2SAT 93
[2024-07-24 08:00] VITALS: O2SAT 100
[2024-07-24] MEDS: Gabapentin 600 MG Tablet GT ×3 (08:56→18:17)
[2024-07-24] MEDS: Senna/Docusate Sodium 1 Tablet 2 TABLET GT ×2 (08:56→22:30)
[2024-07-24] MEDS: Famotidine 20 MG Tablet GT ×2 (08:56→22:30)
[2024-07-24] MEDS: Montelukast 10 MG Tablet GT (08:56)
[2024-07-24] MEDS: Enoxaparin 40 MG/0.4 ML Syringe SC (08:56)
[2024-07-24] MEDS: Multivitamin/Minerals/Iron (9 mg/15 ml) Liquid GT (08:56)
--- NOTE | 2024-07-24 10:00 | SP.MBSS_ITS ---
Modified Barium Swallow Patient Information Study Date: 07/24/24 Study Time: 10:00 Direct Billable Minutes: 135 Total Minutes procedure & reportin Diagnosis: Dysphagia Referring Physician: Chandni Machado Reason for Referral: Pt has been consuming ice chips and water trials via teaspoon under direct MOLECULAR PHYSICIST supervision. Tolerating well - MBSS recommended to objectively assess swallow function for determination of the least restrictive means of PO intake and necessary compensatory strategies/precautions/therapeutic exercises to improve swallow function. Medical History: 63 y/o male patient admitted to [facility] 06/04/24 from OSH d/t cardiac arrest with severe acute hypoxic/hypercapnic respiratory failure. Cardiac arrest in route to [facility] with CPR provided. Upon arrival to hospital, patient with multiple broken ribs and R pneumothorax treated with catheterization and intubated with mechanical ventilation. PMH: COPD, HTN, CAD. Transferred to ICU and under deep sedation w/ paralytic. Respiratory culture +Klebsiella oxytoca, treated w/ ATB. Brain MRI 06/17/24 possible small extra-axial hemorrhage w/ patient reporting BEU pain and weakness. Imaging further suggested right parotid neoplasm and possible hypoxic ischemic encephalopathy. No oncological interventions, however ENT consult recommended at discharge. Unable to be weaned from vent. Trach and PEG placed 06/18/24. [facility] with continued vent dependency. Time on vent was not available per review of medical records. Patient received skilled therapy services at [facility], and transferred to [facility] Rehab unit 07-17-24 for debility requiring ongoing interventions for conditions impacting ability to return home at [facility]. Current Diet Ordered: NPO w/ PEG Dentition: Edentulous (upper edentulous, patient reports that he has dentures but they are not at the hospital for use presently) and Missing Teeth (missing lower molars) Mental Status: WNL (sufficient for participation in MBSS) Respiratory Status: Oxygenating on Room Air (cuffless Shiley 7.5 tracheostomy tube w/ 007 Aqua Passy [place] Speaking Valve ) Penetration-Aspiration Scale Penetration-Aspiration Scale: OBJECTIVE ASSESSMENT OF SWALLOW FUNCTION (QUANTITATIVE ? PER TRIAL): PENETRATION / ASPIRATION SCALE (LEMUS): 1 = does not enter airway 2 = enters airway/above vocal folds/ejected 3 = enters airway/above vocal folds/not ejected 4 = enters airway/contacts vocal folds/ejected 5 = enters airway/contacts vocal folds/not ejected 6 = enters airway/below vocal folds/ejected 7 = enters airway/below vocal folds/not ejected despite effort 8 = enters airway/below vocal folds/no effort VIDEOFLOROSCOPIC SCALE SCORE (LEMUS): Grade I = aspiration of material that has penetrated into the laryngeal vestibule, intact cough reflex Grade II = aspiration < 10 % of the bolus, intact cough reflex Grade III = aspiration of < 10 % of the bolus, reduced cough reflex or aspiration of > 10 % of the bolus, intact cough reflex Grade IV = aspiration of > 10 % of the bolus, reduced cough reflex Penetration-Aspiration Scale Score Thin Liquid via teaspoon: Result: 1= does not enter airway Thin Liquid via teaspoon Trial 2: Result: 1= does not enter airway Thin Liquid via single sip: straw: Result: 1= does not enter airway Pudding via teaspoon: Result: 1= does not enter airway Thin Liquid via single sip: straw Trial 2: Result: 3= enters airways/above vocal folds/not ejected Cookie: Result: 1= does not enter airway Thin Liquid via single sip: straw Trial 3: Result: 3= enters airways/above vocal folds/not ejected Thin Liquid via single sip: straw Trial 4: Result: 1= does not enter airway Oral Phase Labial Seal: Escape beyond interlabial space; no extension beyond malissa border Tongue Control During Bolus Hold: Cohesive bolus between tongue to palatal seal Bolus Preparation/Mastication: Slow prolonged chewing/mashing with complete recollection Bolus Transport/Lingual Motion: Slowed tongue motion Oral Residue: Residue collection on oral structures Pharyngeal Phase Initiation of Pharyngeal Swallow: Bolus head at posterior laryngeal surgace of epiglottis Soft Palate Elevation: Trace column of contrast/air between soft palate and pharyngeal wall Laryngeal Elevation: Partial superior movement thyroid cart/partial apprx aryt- epig petiole Anterior Hyoid Excursion: Partial anterior movement Epiglottic Movement: Complete inversion Laryngeal Vestibule Closure at Height of Swallow: Incomplete; narrow column of air/contrast in laryngeal vestibule Pharyngeal Stripping Wave: Present - diminished Pharyngoesophageal Segment Opening: Complete distension and complete duration; no obstruction of flow Tongue Base Retraction: Narrow column of contrast between tongue base & post. pharyngeal wall Pharyngeal Residue: Collection of residue within or on pharyngeal structures Esophageal Phase Esophageal Clearance: Esophageal retention Treatment Strategies Effects of treatment strategies attemped:: * cued cough and re-swallow = effective * preparatory set = somewhat effective * multiple swallows = effective Diagnosis/Impression Diagnosis: mild oropharyngeal dysphagia Impression: The oral phase is characterized by... * Mild deficits noted, including decreased labial seal with trace anterior escape, slowed bolus transport, prolonged mastication due to partially edentulous status, and residue on oral structures post-swallow. * Decreased lingual strength/coordination appreciated w/ observable residue in the lateral lingual sulcus and along the oral tongue base, necessitating 1-2 additional swallows with liquid boluses to improve oropharyngeal bolus clearance. The pharyngeal phase is characterized by... * Swallow initiation occurs late, with the bolus reaching the posterior laryngeal surface of the epiglottis prior to swallow onset w/ suboptimal bolus location impacting the timing of airway closure and resulting in laryngeal vestibule penetration of thin liquids intermittently. * Laryngeal elevation, and anterior hyoid excursion are partially reduced, contributing to incomplete laryngeal vestibule closure w/ laryngeal vestibule penetration. * Penetration did not extend to or contact the vocal folds. * The patient was able to effectively cough and reswallow when cued to eject and clear the penetrated contrast. * Soft palate elevation was incomplete w/ a narrow ling of contrast noted between the velum and posterior pharyngeal wall, no nasopharyngeal penetration appreciated. * Pharyngeal stripping wave and tongue base retraction were diminished resulting in pharyngeal residue accumulation lining the valleculae, tongue base, and posterior pharyngeal wall, suggestive of inefficient clearance. * Double/multiple swallows were effective to reduce the amount of residue remaining. The esophageal phase is characterized by... * Retention of approximately 30% of the pudding bolus was noted within the esophagus during the esophageal sweep indicating reduced esophageal clearance. Recommendations Diet: Regular Textures (Minced and Moist Textures) and Thin Liquids (by straw) Compensatory Strategies: Small Bites, Small Sips, Sips by straw only, Multiple Swallows (1-2 additional dry swallows w/ liquids), Alternate bites/solids and sips/liquids (to aid w/ oropharyngeal and esophageal bolus clearance), Sitting upright and Assist with verbal cues to use recommended strategies (cue to cough HARD and reswallow any time wet vocal quality or throat clearing is noted w/ intake) Supervision: Total Feed (d/t bilateral upper extremity weakness, provide verbal cues to use strategies ) Recommend Repeat Modified Barium Swallow: Yes (repeat in 2-4 weeks ) Need for Skilled Speech Therapy Services: Yes Recommended Referrals: GI Consult (to further assess esophageal clearance) Education Completed: 1. Described result of evaluation. (Images were reviewed with the patient immediately following MBSS conclusion to improve understanding of identified deficits and necessary aspiration precautions to reduce risk for aspiration) and 2. Pt understands evaluation & agrees with goals and treatment plan. Status Active ST Patient: Active Contact Information [facility] Speech Therapy:: Garima Pleitez M.A., MOLECULAR PHYSICIST Speech-Language Pathologist [facility] [address] [place] [address] [email or web address] [phone]
--- NOTE | 2024-07-24 10:33 | PN_ITS ---
Subjective Subjective Day #2 Ancef Afebrile VSS -blood pressure is well-controlled, heart rate is within normal limit. Maintaining appropriate oxygen saturation on RA Oral intake - FOOD n.p.o. FLUIDS fluid balance yesterday was +835. Discussed with nursing - no problems that need addressed Reviewed the THERAPY notes Medication list reviewed. Soft tissue ultrasound and let the PEG site yesterday showed no abnormal fluid or abscess seen at the site of insertion. There was overlying skin thickening measuring 1.2 cm which likely represents the cellulitis. Wound cultures-mixed gram positives. I reviewed the results of the MBS today. He has been approved for regular textures, minced and moist and thin liquids by straw. Small sips, small bites with multiple swallows. Pain around the PEG is less today. Has not requested any Oxycodone today. Last BM recorded was 07/19.......will discuss with nursing. tolerating TF with no residual. Objective Data Objective Data Vital Signs: Vital Signs Temp Pulse Resp BP Pulse Ox O2 Del Method O2 Flow Rate 97.8 F 75 16 131/67 H 100 Trach Collar 7 07/24/24 05:36 07/24/24 07:45 07/24/24 07:45 07/24/24 05:36 07/24/24 08:00 07/24/24 07:45 07/24/24 08:00 FiO2 30 07/24/24 07:45 Oxygen Flow Rate (L/min) 7 Oxygen Delivery Method Trach Collar Weight: 130 lb 4.691 oz Body Mass Index (BMI) 21.0 Intake & Output: Intake and Output for Last 24 Hours 07/22/24 07/23/24 07/24/24 23:59 23:59 23:59 Intake Total 935 / 1105 1960 / 1960 270 / 270 Output Total 1750 / 1750 1125 / 1125 500 / 500 Balance -815 / -645 835 / 835 -230 / -230 Medical Nutrition Assessment Dietitian: Malnutrition Criteria Met Start: 07/17/24 15:56 Freq: Status: Active Protocol: Document 07/17/24 15:56 SB (Rec: 07/17/24 15:56 SB [id number]) Nutrition Malnutrition Evidence of Malnutrition Exists Yes Malnutrition (severe): Chronic Evidenced By Suboptimal Energy Intake ( Severe),Weight Loss (Severe) Clinical Problem Chronic Disease or Condition Related Malnutrition Etiology severe related to inadequate oral intake and dysphagia Signs/Symptoms as evidenced by 16.6% unintentional weight loss x 3 months and PO meeting <75% of estimated needs x 3 months. Status Active Problem Recommendation Dietitian Recommendations/Changes Continue Jevity 1.5 @ 50ml/hr, will order 150ml flushes every 4 hours providing 1800 calories, 76 grams of protein, 1812ml of fluid/day. Will adjust tube feeding, as needed. Will monitor weight, as available. Review and approved by Vivi Harvey RD, LD. Lab / Micro Data 07/23/24 07:10 07/23/24 07:10 Labs: Laboratory Results - last 24 hr 07/23/24 16:50: MRSA (PCR) Negative Micro: Microbiology 07/23/24 09:10 Abs - Abdominal Gram Stain - Final 07/17/24 15:00 Urine Catheter - Catheter Urine Culture - Final Culture exhibits no growth. Radiography Diagnostic Testing: Radiology Impression Abdomen Ultrasound 07/23/24 09:19 IMPRESSION: No abnormal fluid or abscess seen at the site of the insertion of the PEG tube. Overlying skin thickening measuring 1.2 cm. Electronically Signed: Gerardo Ruby MD at 15:16 EST , Physical Exam Resp Resp Narrative: Clear, good air exchange. Cardio regular rate, regular rhythm and no gallops Cardio Narrative: No ectopy GI GI Narrative: The abdomen is soft. The erythema and swelling around the PEG site has decreased since yesterday. There is decreased discharge from around the PEG site. He does have some yellow slough immediately around the tube. He did not complain of pain with palpation around the area today. Assessment & Plan Assessment/Plan (1) Physical debility: (2) History of tracheostomy: (3) Dysphagia: QUALIFIERS: Dysphagia type: unspecified Qualified Code(s): R13.10 - Dysphagia, unspecified (4) S/P percutaneous endoscopic gastrostomy (PEG) tube placement: (5) Anoxic-ischemic encephalopathy: (6) Mass of right parotid gland: (7) Asthma-COPD overlap syndrome: (8) Depression: (9) Malfunction of percutaneous endoscopic gastrostomy (PEG) tube: PLAN: PEG tube was buried in the gastric wall. (10) Cellulitis: QUALIFIERS: Site of cellulitis: trunk Site of cellulitis of trunk: abdominal wall Qualified Code(s): L03.311 - Cellulitis of abdominal wall PLAN: Plan 1. Continue therapy 2. Hold tube feed if he eats at least 50% of his meal. Continue water flushes 3. Dietitian to provide oral supplements for nutrition. 4. Continue Ancef for a total of 9 doses and then transition to Keflex Charges/Coding Visit Charges Inpatient E&M: 28048 [facility] Hosp L1
[2024-07-24] MEDS: Polyethylene Glycol 3350 17 GM PACKET GT ×2 (11:41→22:29)
[2024-07-24 17:58] VITALS: BP 116/76; PULSE 81; RESP 16; TEMP 36.8; O2SAT 92
[2024-07-24 20:42] VITALS: PULSE 84; RESP 20; O2SAT 95
[2024-07-24] MEDS: Atorvastatin Calcium 20 MG Tablet GT (22:29)
[2024-07-24] MEDS: Mirtazapine 15 MG Tablet PO (22:30)
[2024-07-24] MEDS: oxyCODONE 5 MG Tablet GT (22:51)
[2024-07-25] MEDS: 0.9% Saline Lock 10 ML Syringe IV ×5 (05:48→22:50)
[2024-07-25] MEDS: Cefazolin 1 GM/50 ML BAG IV ×3 (05:48→22:06)
[2024-07-25 06:00] VITALS: BP 126/73; PULSE 81; RESP 16; TEMP 36.6; O2SAT 93; BMI 21.7
[2024-07-25] MEDS: Menthol/Lanolin/Calamine/Znox 113 GM Tube 1 APPLIC TOPICAL ×2 (08:03→22:06)
[2024-07-25] MEDS: oxyCODONE 5 MG Tablet GT ×3 (08:03→18:36)
[2024-07-25] MEDS: Gabapentin 600 MG Tablet GT ×3 (08:03→18:32)
[2024-07-25] MEDS: Multivitamin/Minerals/Iron (9 mg/15 ml) Liquid GT (08:03)
[2024-07-25] MEDS: Senna/Docusate Sodium 1 Tablet 2 TABLET GT ×2 (08:04→22:05)
[2024-07-25] MEDS: Montelukast 10 MG Tablet GT (08:04)
[2024-07-25] MEDS: Enoxaparin 40 MG/0.4 ML Syringe SC (08:05)
[2024-07-25] MEDS: Famotidine 20 MG Tablet GT ×2 (08:06→22:05)
[2024-07-25] MEDS: Polyethylene Glycol 3350 17 GM PACKET GT ×2 (08:06→22:05)
[2024-07-25] MEDS: Jevity 1.5. 1,000 ML Bottle 240 ML GT ×2 (14:23→22:10)
[2024-07-25 14:45] VITALS: PULSE 79; RESP 18; O2SAT 93
[2024-07-25] MEDS: Ipratropium/Albuterol Sulfate 3 ML AMPUL.NEB INHALATION ×2 (14:45→20:00)
[2024-07-25 18:00] VITALS: BP 104/67; PULSE 84; RESP 17; TEMP 36.9; O2SAT 97
[2024-07-25 20:00] VITALS: PULSE 88; RESP 18; O2SAT 93
[2024-07-25] MEDS: Atorvastatin Calcium 20 MG Tablet GT (22:05)
[2024-07-25] MEDS: Mirtazapine 15 MG Tablet PO (22:05)
[2024-07-26] MEDS: Cefazolin 1 GM/50 ML BAG IV ×2 (05:49→13:11)
[2024-07-26] MEDS: 0.9% Saline Lock 10 ML Syringe IV ×4 (05:49→21:40)
[2024-07-26 06:00] VITALS: BP 102/68; PULSE 77; RESP 18; TEMP 37; O2SAT 99
[2024-07-26] MEDS: oxyCODONE 5 MG Tablet GT ×3 (06:17→17:53)
[2024-07-26 06:58] VITALS: BMI 21.0
[2024-07-26 07:15] VITALS: PULSE 77; RESP 16; O2SAT 94
[2024-07-26] MEDS: Ipratropium/Albuterol Sulfate 3 ML AMPUL.NEB INHALATION ×2 (07:15→23:20)
[2024-07-26] MEDS: Multivitamin/Minerals/Iron (9 mg/15 ml) Liquid GT (08:17)
[2024-07-26] MEDS: Menthol/Lanolin/Calamine/Znox 113 GM Tube 1 APPLIC TOPICAL ×2 (08:17→21:38)
[2024-07-26] MEDS: Juven (unflavored) Packet 1 PACKET PO ×2 (08:17→17:52)
[2024-07-26] MEDS: Ensure Plus High Protein 120 ML LIQUID PO ×3 (08:17→17:52)
[2024-07-26] MEDS: Famotidine 20 MG Tablet GT ×2 (08:18→21:39)
[2024-07-26] MEDS: Montelukast 10 MG Tablet GT (08:18)
[2024-07-26] MEDS: Enoxaparin 40 MG/0.4 ML Syringe SC (08:19)
[2024-07-26] MEDS: Gabapentin 600 MG Tablet GT ×3 (08:22→17:52)
[2024-07-26 18:00] VITALS: BP 108/72; PULSE 80; RESP 15; TEMP 36.8; O2SAT 96
[2024-07-26] MEDS: Cephalexin 500 MG Capsule PO (21:39)
[2024-07-26] MEDS: Senna/Docusate Sodium 1 Tablet 2 TABLET GT (21:39)
[2024-07-26] MEDS: Mirtazapine 15 MG Tablet PO (21:39)
[2024-07-26] MEDS: Atorvastatin Calcium 20 MG Tablet GT (21:39)
[2024-07-26] MEDS: Polyethylene Glycol 3350 17 GM PACKET GT (21:39)
[2024-07-26] MEDS: Jevity 1.5. 1,000 ML Bottle 240 ML GT (21:44)
[2024-07-26 23:26] VITALS: PULSE 75; RESP 16; O2SAT 92
[2024-07-27] MEDS: oxyCODONE 5 MG Tablet GT ×2 (00:39→22:05)
[2024-07-27 06:00] VITALS: BP 108/69; PULSE 83; RESP 16; TEMP 36.7; O2SAT 96; BMI 21.4
[2024-07-27] MEDS: Triamcinolone Acetonide 0.1% Cream 15 gm 1 APPLIC TOPICAL (06:33)
[2024-07-27] MEDS: Cephalexin 500 MG Capsule PO ×3 (06:33→21:41)
[2024-07-27] MEDS: Ipratropium/Albuterol Sulfate 3 ML AMPUL.NEB INHALATION ×2 (06:35→21:33)
[2024-07-27 06:52] VITALS: PULSE 80; RESP 16; O2SAT 95
[2024-07-27] MEDS: Gabapentin 600 MG Tablet GT ×3 (08:35→17:44)
[2024-07-27] MEDS: Juven (unflavored) Packet 1 PACKET PO ×2 (08:36→17:41)
[2024-07-27] MEDS: Multivitamin/Minerals/Iron (9 mg/15 ml) Liquid GT (08:36)
[2024-07-27] MEDS: Ensure Plus High Protein 120 ML LIQUID PO ×3 (08:36→17:42)
--- NOTE | 2024-07-27 09:40 | PN_ITS ---
Subjective Subjective Afebrile VSS - Maintaining appropriate oxygen saturation on RA-has been maintaining 92 to 96% on room air. At night when sleeping he is on a trach collar at 28% and maintaining an oxygen saturation of 95%. Not tachypneic. Oral intake - FOOD [] FLUIDS he was approved for diet on Saturday. His oral intake yesterday was 1280. Discussed with nursing - no problems that need addressed Reviewed the THERAPY notes Medication list reviewed. Hemoccult stool was negative. Manjit denies headache, vertigo, chest pain, shortness of breath, nausea/vomiting/abdominal pain, dysuria and calf tenderness. He does have occasional heartburn which he has had in the past. He is also complaining of pain in the left great toe. He tells me that he has an ingrown toenail. The pain is on the medial side of the Left great toe and it hurts with pressure over the distal medial toenail. there is no redness and no discharge. The nail is crumbly and short. I told him that podiatry does not come to the hospital to debride toenails any longer. I do not feel comfortable debriding it any shorter than I did without causing bleeding. The pain around the PEG is much better and there have been no problems with flushes. Objective Data Objective Data Vital Signs: Vital Signs Temp Pulse Resp BP Pulse Ox O2 Del Method O2 Flow Rate 98.0 F 80 16 108/69 95 Trach Collar 6 07/27/24 06:00 07/27/24 06:52 07/27/24 06:52 07/27/24 06:00 07/27/24 06:52 07/27/24 06:52 07/27/24 06:52 FiO2 28 07/27/24 06:52 Oxygen Flow Rate (L/min) 6 Oxygen Delivery Method Trach Collar Weight: 133 lb 13.129 oz Body Mass Index (BMI) 21.4 Intake & Output: Intake and Output for Last 24 Hours 07/25/24 07/26/24 07/27/24 23:59 23:59 23:59 Intake Total 2442 / 2442 2160 / 2160 240 / 240 Output Total 1400 / 1400 1900 / 1900 975 / 975 Balance 1042 / 1042 260 / 260 -735 / -735 Medical Nutrition Assessment Dietitian: Malnutrition Criteria Met Start: 07/17/24 15:56 Freq: Status: Active Protocol: Document 07/17/24 15:56 SB (Rec: 07/17/24 15:56 SB [id number]) Nutrition Malnutrition Evidence of Malnutrition Exists Yes Malnutrition (severe): Chronic Evidenced By Suboptimal Energy Intake ( Severe),Weight Loss (Severe) Clinical Problem Chronic Disease or Condition Related Malnutrition Etiology severe related to inadequate oral intake and dysphagia Signs/Symptoms as evidenced by 16.6% unintentional weight loss x 3 months and PO meeting <75% of estimated needs x 3 months. Status Active Problem Recommendation Dietitian Recommendations/Changes Continue Jevity 1.5 @ 50ml/hr, will order 150ml flushes every 4 hours providing 1800 calories, 76 grams of protein, 1812ml of fluid/day. Will adjust tube feeding, as needed. Will monitor weight, as available. Review and approved by Vivi Harvey RD, LD. Lab / Micro Data 07/23/24 07:10 07/23/24 07:10 Micro: Microbiology 07/23/24 09:10 Abs - Abdominal Gram Stain - Final 07/23/24 09:10 Abs - Abdominal Wound Culture - Final Bailee albicans 07/24/24 18:15 Stool Stool Occult Blood (BERTHA) - Final 07/17/24 15:00 Urine Catheter - Catheter Urine Culture - Final Culture exhibits no growth. Physical Exam Const alert Constitutional Narrative: Sitting in the recliner at the bedside. Appears comfortable. PMV in place and he is conversing with me. He is on no O2 supplementation and he is not tachypneic and denies SOB. He tells me that he feels like he is getting stronger. Resp clear to auscultation bilaterally Resp Narrative: Good air exchange. Able to clear secretions with cough and denied the need to be suctioned. Effort and Inspection: Negative for tachypneic Cardio regular rate, regular rhythm and no gallops Cardio Narrative: No ectopy GI normal to inspection, nondistended, normoactive bowel sounds, soft to palpation and non-tender GI Narrative: The PEG site Skin Skin Narrative: There is no purulent DC from around the PEG. No ulceration and no necrosis. there is a small rim of erythema around the tube with no slough. Assessment & Plan Assessment/Plan (1) Physical debility: (2) History of tracheostomy: (3) Dysphagia: QUALIFIERS: Dysphagia type: unspecified Qualified Code(s): R13.10 - Dysphagia, unspecified (4) S/P percutaneous endoscopic gastrostomy (PEG) tube placement: (5) Anoxic-ischemic encephalopathy: (6) Mass of right parotid gland: (7) Asthma-COPD overlap syndrome: (8) Depression: (9) Cellulitis: QUALIFIERS: Site of cellulitis: trunk Site of cellulitis of trunk: abdominal wall Qualified Code(s): L03.311 - Cellulitis of abdominal wall PLAN: Plan 1. Continue therapy 2. Continue Keflex 3. We discussed smoking cessation today. He was smoking at the time of the pulmonary/cardiac arrest. He had quit for 3 months but, then his mother and he became depressed and started smoking again. We discussed how mental health affects addictions and I stressed the importance of ongoing tx for depression, suha since he is debilitated now and his quality of life has changed significantly. I also recommended he pursue counselling at [place] from rehab. 4. Will try and find a horticultural specialty grower inside to debride his nails but, this may not be possible. May need to follow up with podiatry post [place] from rehab. Charges/Coding Visit Charges Inpatient E&M: 74832 Subs Hosp L1
[2024-07-27] MEDS: Polyethylene Glycol 3350 17 GM PACKET GT ×2 (10:28→21:41)
[2024-07-27] MEDS: Enoxaparin 40 MG/0.4 ML Syringe SC (10:28)
[2024-07-27] MEDS: Senna/Docusate Sodium 1 Tablet 2 TABLET GT ×2 (10:28→21:42)
[2024-07-27] MEDS: Famotidine 20 MG Tablet GT ×2 (10:29→21:41)
[2024-07-27] MEDS: Montelukast 10 MG Tablet GT (10:29)
[2024-07-27] MEDS: Menthol/Lanolin/Calamine/Znox 113 GM Tube 1 APPLIC TOPICAL ×2 (10:29→21:45)
[2024-07-27 18:00] VITALS: BP 105/70; PULSE 83; RESP 15; TEMP 36.7; O2SAT 98
[2024-07-27 21:30] VITALS: O2SAT 96
[2024-07-27 21:33] VITALS: PULSE 88; RESP 16; O2SAT 96
[2024-07-27] MEDS: Atorvastatin Calcium 20 MG Tablet GT (21:41)
[2024-07-27] MEDS: Mirtazapine 15 MG Tablet PO (21:42)
[2024-07-27] MEDS: Jevity 1.5. 1,000 ML Bottle 240 ML GT (21:46)
[2024-07-27] MEDS: 0.9% Saline Lock 10 ML Syringe IV (22:05)
[2024-07-28 03:51] VITALS: PULSE 79; RESP 18
[2024-07-28] MEDS: Albuterol 2.5 MG/3 ML VIAL.NEB. INHALATION ×3 (03:51→21:10)
--- NOTE | 2024-07-28 03:55 | NURSING ---
RT w/ pt to administer a breathing tx and perform deep suction. Pt w/ productive cough w/ thick, white/cream colored sputum. This nurse was able to suctions some secretions at the end of the trach w/ denysur. In no acute distress. Will continue to monitor.
[2024-07-28] MEDS: Triamcinolone Acetonide 0.1% Cream 15 gm 1 APPLIC TOPICAL (05:24)
[2024-07-28] MEDS: Cephalexin 500 MG Capsule PO ×3 (05:24→21:53)
[2024-07-28 05:27] VITALS: BMI 21.7
[2024-07-28 05:29] VITALS: BP 112/70; PULSE 76; RESP 17; TEMP 37.2; O2SAT 95
[2024-07-28 07:25] VITALS: PULSE 75; RESP 17; O2SAT 95
[2024-07-28] MEDS: Ipratropium/Albuterol Sulfate 3 ML AMPUL.NEB INHALATION (07:25)
[2024-07-28] MEDS: Multivitamin/Minerals/Iron (9 mg/15 ml) Liquid GT (08:25)
[2024-07-28] MEDS: Juven (unflavored) Packet 1 PACKET PO ×2 (08:25→18:03)
[2024-07-28] MEDS: Menthol/Lanolin/Calamine/Znox 113 GM Tube 1 APPLIC TOPICAL ×2 (08:25→21:55)
[2024-07-28] MEDS: Famotidine 20 MG Tablet GT ×2 (08:25→21:52)
[2024-07-28] MEDS: Enoxaparin 40 MG/0.4 ML Syringe SC (08:25)
[2024-07-28] MEDS: Polyethylene Glycol 3350 17 GM PACKET GT ×2 (08:26→21:52)
[2024-07-28] MEDS: Montelukast 10 MG Tablet GT (08:26)
[2024-07-28] MEDS: Ensure Plus High Protein 120 ML LIQUID PO ×3 (08:26→18:03)
[2024-07-28] MEDS: Gabapentin 600 MG Tablet GT ×3 (08:28→18:05)
[2024-07-28] MEDS: oxyCODONE 5 MG Tablet GT ×3 (08:28→21:59)
--- NOTE | 2024-07-28 09:43 | PCM.PROGNOTE ---
Subjective Subjective Afebrile VSS - Maintaining appropriate oxygen saturation on RA Oral intake - FOOD eating 75 to 100% of his meals. FLUIDS oral fluid intake was 1295 yesterday. He had 640 and PEG flushes. Last bowel movement was yesterday. He also had a bowel movement on 07/24 and 07/25. Discussed with nursing -has been incontinent of urine. Reviewed the THERAPY notes -still total assist for eating. Still requiring more assistance that what family is able to provide. Will need SNF at [place]. Therapy notes the pt is still tearful and down. Appetite is good and he is sleeping better at night. Tolerating the Remeron with no adverse SE. Medication list reviewed. No complaints today. Denies CP, SOB, change in cough, N/V/abd pain. Objective Data Objective Data Vital Signs: Vital Signs Temp Pulse Resp BP Pulse Ox O2 Del Method O2 Flow Rate 98.9 F 75 17 112/70 95 Room Air 6 07/28/24 05:29 07/28/24 07:25 07/28/24 07:25 07/28/24 05:29 07/28/24 07:25 07/28/24 07:25 07/27/24 21:33 FiO2 28 07/27/24 21:33 Oxygen Flow Rate (L/min) 6 Oxygen Delivery Method Room Air Weight: 135 lb 2.294 oz Body Mass Index (BMI) 21.7 Intake & Output: Intake and Output for Last 24 Hours 07/26/24 07/27/24 07/28/24 23:59 23:59 23:59 Intake Total 2160 / 2160 1935 / 1935 650 / 650 Output Total 1900 / 1900 2150 / 2150 700 / 700 Balance 260 / 260 -215 / -215 -50 / -50 Medical Nutrition Assessment Dietitian: Malnutrition Criteria Met Start: 07/17/24 15:56 Freq: Status: Active Protocol: Document 07/17/24 15:56 SB (Rec: 07/17/24 15:56 SB [id number]) Nutrition Malnutrition Evidence of Malnutrition Exists Yes Malnutrition (severe): Chronic Evidenced By Suboptimal Energy Intake ( Severe),Weight Loss (Severe) Clinical Problem Chronic Disease or Condition Related Malnutrition Etiology severe related to inadequate oral intake and dysphagia Signs/Symptoms as evidenced by 16.6% unintentional weight loss x 3 months and PO meeting <75% of estimated needs x 3 months. Status Active Problem Recommendation Dietitian Recommendations/Changes Continue Jevity 1.5 @ 50ml/hr, will order 150ml flushes every 4 hours providing 1800 calories, 76 grams of protein, 1812ml of fluid/day. Will adjust tube feeding, as needed. Will monitor weight, as available. Review and approved by Vivi Harvey RD, LD. Lab / Micro Data 07/23/24 07:10 07/23/24 07:10 Micro: Microbiology 07/23/24 09:10 Abs - Abdominal Gram Stain - Final 07/23/24 09:10 Abs - Abdominal Wound Culture - Final Bailee albicans 07/23/24 09:10 Abs - Abdominal Anaerobic Culture - Final No anaerobic bacteria isolated. 07/24/24 18:15 Stool Stool Occult Blood (BERTHA) - Final 07/17/24 15:00 Urine Catheter - Catheter Urine Culture - Final Culture exhibits no growth. Physical Exam Const alert and no apparent distress General Appearance: cooperative Resp normal respiratory effort and clear to auscultation bilaterally Resp Narrative: Maintaining appropriate oxygen saturation on room air while awake. Effort and Inspection: Negative for tachypneic or labored Cardio regular rate, regular rhythm and no gallops Cardio Narrative: No ectopy GI normal to inspection, nondistended, normoactive bowel sounds, soft to palpation and non-tender GI Narrative: There is a rim of superficial necrotic tissue beneath the PEG under the dressing. NO purulent DC and no pain with palpation around the PEG now. The erythema has resolved. Extremity no calf tenderness Extremity Narrative: Muscle atrophy all extremities. Edema in the hands and feet has improved since admission but is still present. 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 Started smoking after his mother in December. Had quit for 3 months. On disability for chronic lung disease. (9) Cellulitis: QUALIFIERS: Site of cellulitis: trunk Site of cellulitis of trunk: abdominal wall Qualified Code(s): L03.311 - Cellulitis of abdominal wall PLAN: Plan 1. Continue therapy 2. Start ferrous sulfate syrup 300 mg per PEG tube daily 3. Recheck CBC and BMP or Saturday 4. Check a blood sugar prior to lunch and supper today - It was 91 5. Increase the Remeron to 22.5 mg Q HS 6. Will need SNF at [place] from rehab. 7. Continue Keflex to complete 10 days of treatment for cellulitis/necrosis at the PEG site Charges/Coding Visit Charges Inpatient E&M: 38059 Subs Hosp L1
[2024-07-28 12:47] LABS: Bedside Glucose 91 mg/dL (74-106)
[2024-07-28 16:15] VITALS: PULSE 74; RESP 17
[2024-07-28 21:10] VITALS: PULSE 90; RESP 16; O2SAT 93
[2024-07-28] MEDS: Mirtazapine 15 MG Tablet 22.5 MG PO (21:52)
[2024-07-28] MEDS: Atorvastatin Calcium 20 MG Tablet GT (21:53)
[2024-07-28] MEDS: Senna/Docusate Sodium 1 Tablet 2 TABLET GT (21:55)
[2024-07-28] MEDS: Jevity 1.5. 1,000 ML Bottle 240 ML GT (21:56)
[2024-07-28] MEDS: Acetaminophen 650 MG/20 ML UDC GT (21:59)
[2024-07-29] VITALS (7 sets, daily range): BP systolic 101–108; BP diastolic 66–67; PULSE 81–91; RESP 16–18; TEMP 36.8–37.3; O2SAT 91–97; BMI 21.9
[2024-07-29] MEDS: Cephalexin 500 MG Capsule PO ×3 (04:42→21:19)
[2024-07-29] MEDS: Triamcinolone Acetonide 0.1% Cream 15 gm 1 APPLIC TOPICAL (04:43)
[2024-07-29] MEDS: Albuterol 2.5 MG/3 ML VIAL.NEB. INHALATION ×2 (05:25→14:31)
[2024-07-29] MEDS: Ipratropium/Albuterol Sulfate 3 ML AMPUL.NEB INHALATION ×2 (07:20→20:10)
[2024-07-29] MEDS: Juven (unflavored) Packet 1 PACKET PO ×2 (08:36→15:23)
[2024-07-29] MEDS: Gabapentin 600 MG Tablet GT ×3 (08:36→16:38)
[2024-07-29] MEDS: Ensure Plus High Protein 120 ML LIQUID PO ×2 (08:36→16:38)
[2024-07-29] MEDS: Multivitamin/Minerals/Iron (9 mg/15 ml) Liquid GT (08:36)
[2024-07-29] MEDS: Polyethylene Glycol 3350 17 GM PACKET GT ×2 (08:36→21:18)
[2024-07-29] MEDS: Acetaminophen 650 MG/20 ML UDC GT (08:36)
[2024-07-29] MEDS: Senna/Docusate Sodium 1 Tablet 2 TABLET GT (08:36)
[2024-07-29] MEDS: Montelukast 10 MG Tablet GT (08:36)
[2024-07-29] MEDS: Famotidine 20 MG Tablet GT ×2 (08:36→21:19)
[2024-07-29] MEDS: Menthol/Lanolin/Calamine/Znox 113 GM Tube 1 APPLIC TOPICAL ×2 (08:37→21:20)
[2024-07-29] MEDS: Enoxaparin 40 MG/0.4 ML Syringe SC (08:37)
[2024-07-29] MEDS: Ferrous Sulfate 300 MG/5 ML UDC GT (08:37)
[2024-07-29] MEDS: Mirtazapine 15 MG Tablet 22.5 MG PO (21:19)
[2024-07-29] MEDS: Atorvastatin Calcium 20 MG Tablet GT (21:19)
[2024-07-29] MEDS: Jevity 1.5. 1,000 ML Bottle 240 ML GT (21:20)
[2024-07-30] VITALS (7 sets, daily range): BP systolic 104–117; BP diastolic 67–75; PULSE 81–99; RESP 16–22; TEMP 36.7–37; O2SAT 91–97; BMI 22.0
[2024-07-30] MEDS: Albuterol 2.5 MG/3 ML VIAL.NEB. INHALATION ×2 (02:12→13:58)
[2024-07-30] MEDS: Cephalexin 500 MG Capsule PO ×3 (05:23→22:10)
[2024-07-30] MEDS: Acetaminophen 650 MG/20 ML UDC GT ×2 (05:23→22:09)
[2024-07-30] MEDS: Triamcinolone Acetonide 0.1% Cream 15 gm 1 APPLIC TOPICAL (05:23)
[2024-07-30 06:21] LABS: Hematocrit 36.5 % (40-54); Hemoglobin 11.1 g/dL (13.0-16.5); Mean Corp Hgb Conc 30.4 g/dL (32-36); Mean Corpuscular Hgb 28.1 pg (27.0-32.0); Mean Corpuscular Volume 92.4 fL (80-94); Mean Platelet Vol. 9.5 fl (6.2-12.0); Platelet Count 270 K/mm3 (150-450); RBC Distribution Width CV 14.6 % (11.6-14.6); Red Blood Count 3.95 M/mm3 (4.6-6.2); White Blood Count 8.8 K/mm3 (4.4-11.0)
[2024-07-30 07:14] LABS: Anion Gap 7 (5-15); BUN 18 mg/dL (7-18); BUN/Creat Ratio 36.8 RATIO (10-20); Calcium,Total 8.8 mg/dL (8.5-10.1); Chloride 103 mmol/L (98-107); Creatinine, Serum 0.49 mg/dL (0.70-1.30); EST Glomerular Filtration Rate 183 mL/min (>60); Est Glom Filt Rate - Afr Amer 222 mL/min (>60); Estimated Creatinine Clearance 137.07 ml/min; Glucose 111 mg/dL (74-106); Sodium Level 138 mmol/L (136-145)
[2024-07-30] MEDS: Ipratropium/Albuterol Sulfate 3 ML AMPUL.NEB INHALATION ×2 (07:38→20:18)
[2024-07-30] MEDS: Enoxaparin 40 MG/0.4 ML Syringe SC (08:17)
[2024-07-30] MEDS: Famotidine 20 MG Tablet GT ×2 (08:17→22:10)
[2024-07-30] MEDS: Ensure Plus High Protein 120 ML LIQUID PO ×3 (08:18→18:49)
[2024-07-30] MEDS: Menthol/Lanolin/Calamine/Znox 113 GM Tube 1 APPLIC TOPICAL ×2 (08:18→22:11)
[2024-07-30] MEDS: Gabapentin 600 MG Tablet GT ×3 (08:18→16:43)
[2024-07-30] MEDS: Montelukast 10 MG Tablet GT (08:18)
[2024-07-30] MEDS: Juven (unflavored) Packet 1 PACKET PO ×2 (08:18→16:43)
[2024-07-30] MEDS: Multivitamin/Minerals/Iron (9 mg/15 ml) Liquid GT (08:18)
[2024-07-30] MEDS: Ferrous Sulfate 300 MG/5 ML UDC GT (08:18)
[2024-07-30] MEDS: oxyCODONE 5 MG Tablet GT ×3 (10:10→22:09)
[2024-07-30] MEDS: 0.9% Saline Lock 10 ML Syringe IV (10:14)
--- NOTE | 2024-07-30 11:54 | PCM.PROGNOTE ---
Subjective Subjective Afebrile VSS - Maintaining appropriate oxygen saturation on RA-91 to 96% on room air while awake. Humidified oxygen is administered while sleeping at 6 L. Oral intake - FOOD very good FLUIDS good Discussed with nursing - no problems that need addressed Reviewed the THERAPY notes Medication list reviewed. All lab drawn this morning was personally reviewed. The white blood cell count is normal at 8.8. Hemoglobin is stable at 11.1. Platelets are within normal limits. Sodium is 138 and the potassium is 4. The BUN is 18 and the creatinine is 0.49 which is within his baseline. Fasting blood sugar is 111. Denies pain. No SOB. Yesterday he told us that he has had a loss of vision since the cardiac arrest. He is able to see faces but, can not read. Both eyes are affected. Objective Data Objective Data Vital Signs: Vital Signs Temp Pulse Resp BP Pulse Ox O2 Del Method O2 Flow Rate 98.1 F 99 18 117/75 91 Room Air 6 07/30/24 06:00 07/30/24 07:38 07/30/24 07:38 07/30/24 06:00 07/30/24 07:38 07/30/24 09:24 07/29/24 07:21 FiO2 28 07/29/24 20:10 Oxygen Flow Rate (L/min) 6 Oxygen Delivery Method Room Air Weight: 137 lb 5.568 oz Body Mass Index (BMI) 22.0 Intake & Output: Intake and Output for Last 24 Hours 07/28/24 07/29/24 07/30/24 23:59 23:59 23:59 Intake Total 1760 / 1760 3660 / 3660 480 / 480 Output Total 2074 / 2074 300 / 300 Balance -315 / -315 1610 / 1610 180 / 180 Medical Nutrition Assessment Dietitian: Malnutrition Criteria Met Start: 07/17/24 15:56 Freq: Status: Active Protocol: Document 07/17/24 15:56 SB (Rec: 07/17/24 15:56 SB [id number]) Nutrition Malnutrition Evidence of Malnutrition Exists Yes Malnutrition (severe): Chronic Evidenced By Suboptimal Energy Intake ( Severe),Weight Loss (Severe) Clinical Problem Chronic Disease or Condition Related Malnutrition Etiology severe related to inadequate oral intake and dysphagia Signs/Symptoms as evidenced by 16.6% unintentional weight loss x 3 months and PO meeting <75% of estimated needs x 3 months. Status Active Problem Recommendation Dietitian Recommendations/Changes Continue Jevity 1.5 @ 50ml/hr, will order 150ml flushes every 4 hours providing 1800 calories, 76 grams of protein, 1812ml of fluid/day. Will adjust tube feeding, as needed. Will monitor weight, as available. Review and approved by Vivi Harvey RD, LD. Lab / Micro Data 07/30/24 06:05 07/30/24 06:05 Labs: Laboratory Results - last 24 hr 07/30/24 06:05: WBC 8.8, RBC 3.95 L, Hgb 11.1 L, Hct 36.5 L, MCV 92.4, MCH 28.1, MCHC 30.4 L, RDW Std Deviation 50.0 H, RDW Coeff of [place] 14.6, Plt Count 270, MPV 9.5, Sodium 138, Potassium 4.0, Chloride 103, Carbon Dioxide 28.0, Anion Gap 7, BUN 18, Creatinine 0.49 L, Estim Creat Clear Calc 137.07, Est GFR (MDRD) Af Amer 222, Est GFR (MDRD) Non-Af 183, BUN/Creatinine Ratio 36.8 H, Glucose 111 H, Calcium 8.8 Micro: Microbiology 07/23/24 09:10 Abs - Abdominal Gram Stain - Final 07/23/24 09:10 Abs - Abdominal Wound Culture - Final Bailee albicans 07/23/24 09:10 Abs - Abdominal Anaerobic Culture - Final No anaerobic bacteria isolated. 07/24/24 18:15 Stool Stool Occult Blood (BERTHA) - Final 07/17/24 15:00 Urine Catheter - Catheter Urine Culture - Final Culture exhibits no growth. Physical Exam Const alert and no apparent distress General Appearance: cooperative Resp normal respiratory effort and clear to auscultation bilaterally Resp Narrative: Maintaining appropriate oxygen saturation on room air while awake. Effort and Inspection: Negative for tachypneic or labored Cardio regular rate, regular rhythm and no gallops Cardio Narrative: No ectopy GI normal to inspection, nondistended, normoactive bowel sounds, soft to palpation and non-tender GI Narrative: There is a rim of superficial necrotic tissue beneath the PEG under the dressing. NO purulent DC and no pain with palpation around the PEG now. The erythema has resolved. Extremity no calf tenderness Extremity Narrative: Muscle atrophy all extremities. Edema in the hands and feet has improved since admission but is still present. This is more likely than not due to immobility. 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 Started smoking after his mother in December. Had quit for 3 months. On disability for chronic lung disease. (9) Cellulitis: QUALIFIERS: Site of cellulitis: trunk Site of cellulitis of trunk: abdominal wall Qualified Code(s): L03.311 - Cellulitis of abdominal wall PLAN: Plan 1. Continue therapy 2. Will need to follow-up with ophthalmology for formal testing of vision and examination of the retina following discharge from rehab. 3. No changes to the drug regimen today. Charges/Coding Visit Charges Inpatient E&M: 88325 [facility] Hosp L1
[2024-07-30] MEDS: Senna/Docusate Sodium 1 Tablet 2 TABLET GT (22:08)
[2024-07-30] MEDS: Atorvastatin Calcium 20 MG Tablet GT (22:09)
[2024-07-30] MEDS: Polyethylene Glycol 3350 17 GM PACKET GT (22:10)
[2024-07-30] MEDS: Jevity 1.5. 1,000 ML Bottle 240 ML GT (22:11)
[2024-07-30] MEDS: Mirtazapine 15 MG Tablet 22.5 MG PO (22:12)
[2024-07-31] VITALS (8 sets, daily range): BP systolic 106–120; BP diastolic 63–70; PULSE 86–107; RESP 17–22; TEMP 36.7–37.1; O2SAT 92–97; BMI 22.1
[2024-07-31] MEDS: Albuterol 2.5 MG/3 ML VIAL.NEB. INHALATION ×2 (05:00→16:10)
--- NOTE | 2024-07-31 05:33 | CPS ---
[0500] Pt.'s FiO2 increased to 35% at this time due to this being the lowest FiO2 setting, other than 21%, able to set on this cool aerosol set-up.
[2024-07-31] MEDS: Triamcinolone Acetonide 0.1% Cream 15 gm 1 APPLIC TOPICAL (06:33)
[2024-07-31] MEDS: Cephalexin 500 MG Capsule PO ×2 (06:40→14:04)
[2024-07-31] MEDS: Acetaminophen 650 MG/20 ML UDC GT (06:41)
[2024-07-31] MEDS: oxyCODONE 5 MG Tablet GT ×2 (06:42→17:52)
[2024-07-31] MEDS: Enoxaparin 40 MG/0.4 ML Syringe SC (08:36)
[2024-07-31] MEDS: Ferrous Sulfate 300 MG/5 ML UDC GT (08:36)
[2024-07-31] MEDS: Multivitamin/Minerals/Iron (9 mg/15 ml) Liquid GT (08:37)
[2024-07-31] MEDS: Ensure Plus High Protein 120 ML LIQUID PO ×3 (08:37→17:32)
[2024-07-31] MEDS: Famotidine 20 MG Tablet GT ×2 (08:37→21:33)
[2024-07-31] MEDS: Polyethylene Glycol 3350 17 GM PACKET GT ×2 (08:37→21:33)
[2024-07-31] MEDS: Gabapentin 600 MG Tablet GT ×3 (08:37→17:31)
[2024-07-31] MEDS: Juven (unflavored) Packet 1 PACKET PO ×2 (08:37→17:31)
[2024-07-31] MEDS: Montelukast 10 MG Tablet GT (08:37)
[2024-07-31] MEDS: Menthol/Lanolin/Calamine/Znox 113 GM Tube 1 APPLIC TOPICAL ×2 (08:38→21:30)
[2024-07-31] MEDS: Ipratropium/Albuterol Sulfate 3 ML AMPUL.NEB INHALATION ×2 (10:05→19:24)
--- NOTE | 2024-07-31 12:09 | PCM.PROGNOTE ---
Subjective Subjective Manjit was seen on team rounds today. His daughter Clarice participated by phone. Afebrile VSS - Maintaining appropriate oxygen saturation on RA while awake Oral intake - FOOD good FLUIDS good Discussed with nursing - Continues to c/o 9/10 pain in the left great toenail to nursing and therapy. When I ask him about his left great toe he denies pain. The toe is not swollen, there is no erythema, there is no purulent discharge, there is no paronychia noted. In suspect he is perseverating on this complaint. He does not appear to be in any distress and I palpate and compress the toe and the nail with no Grimacing and no withdrawing. Reviewed the THERAPY notes Medication list reviewed. ROS is negative other than c/o L great toe pain. Objective Data Objective Data Vital Signs: Vital Signs Temp Pulse Resp BP Pulse Ox O2 Del Method O2 Flow Rate 98.0 F 98 22 H 106/70 97 Room Air 7 07/31/24 06:00 07/31/24 10:05 07/31/24 10:05 07/31/24 06:00 07/31/24 06:00 07/31/24 10:00 07/31/24 06:00 FiO2 35 07/31/24 05:00 Oxygen Flow Rate (L/min) 7 Oxygen Delivery Method Room Air Weight: 137 lb 9.095 oz Body Mass Index (BMI) 22.1 Intake & Output: Intake and Output for Last 24 Hours 07/29/24 07/30/24 07/31/24 23:59 23:59 23:59 Intake Total 3660 / 3660 1820 / 1820 640 / 640 Output Total 2049 / 2049 1650 / 1650 Balance 1610 / 1610 170 / 170 640 / 640 Medical Nutrition Assessment Dietitian: Malnutrition Criteria Met Start: 07/17/24 15:56 Freq: Status: Active Protocol: Document 07/17/24 15:56 SB (Rec: 07/17/24 15:56 SB [id number]) Nutrition Malnutrition Evidence of Malnutrition Exists Yes Malnutrition (severe): Chronic Evidenced By Suboptimal Energy Intake ( Severe),Weight Loss (Severe) Clinical Problem Chronic Disease or Condition Related Malnutrition Etiology severe related to inadequate oral intake and dysphagia Signs/Symptoms as evidenced by 16.6% unintentional weight loss x 3 months and PO meeting <75% of estimated needs x 3 months. Status Active Problem Recommendation Dietitian Recommendations/Changes Continue Jevity 1.5 @ 50ml/hr, will order 150ml flushes every 4 hours providing 1800 calories, 76 grams of protein, 1812ml of fluid/day. Will adjust tube feeding, as needed. Will monitor weight, as available. Review and approved by Vivi Harvey RD, LD. Lab / Micro Data 07/30/24 06:05 07/30/24 06:05 Micro: Microbiology 07/23/24 09:10 Abs - Abdominal Gram Stain - Final 07/23/24 09:10 Abs - Abdominal Wound Culture - Final Bailee albicans 07/23/24 09:10 Abs - Abdominal Anaerobic Culture - Final No anaerobic bacteria isolated. 07/24/24 18:15 Stool Stool Occult Blood (BERTHA) - Final 07/17/24 15:00 Urine Catheter - Catheter Urine Culture - Final Culture exhibits no growth. Physical Exam Const alert and no apparent distress General Appearance: cooperative Resp normal respiratory effort and clear to auscultation bilaterally Resp Narrative: Maintaining appropriate oxygen saturation on room air while awake. Effort and Inspection: Negative for tachypneic or labored Cardio regular rate, regular rhythm and no gallops Cardio Narrative: No ectopy GI normal to inspection, nondistended, normoactive bowel sounds, soft to palpation and non-tender Extremity no calf tenderness General Extremity: edema Skin Rashes: no rashes Psych Mood & Affect: depressed Assessment & Plan Assessment/Plan (1) Physical debility: (2) History of tracheostomy: (3) Dysphagia: QUALIFIERS: Dysphagia type: unspecified Qualified Code(s): R13.10 - Dysphagia, unspecified (4) S/P percutaneous endoscopic gastrostomy (PEG) tube placement: (5) Anoxic-ischemic encephalopathy: (6) Mass of right parotid gland: (7) Asthma-COPD overlap syndrome: (8) Depression: QUALIFIERS: Depression Type: unspecified Qualified Code(s): F32.A - Depression, unspecified PLAN: Plan 1. COntinue therapy Charges/Coding Visit Charges Inpatient E&M: 81145 Subs Hosp L1
--- NOTE | 2024-07-31 13:29 | CASEMGMT ---
Social Work IDT met with patient and conference call with dtr for Team meeting. Discussed patient's progress in PT/OT/ST/SN. Educated to [facility] [employer] insurance with NRD 07/31 and will update again on 08/05. Pt is still making progress so no DC date has been set. Currently, IDT's recommendations are pt discharging to a SNF until he is safe to return home. SW offered to send dtr list of SNF providers including quality and resource data via [employer] link. Dtr agreed and prefers a text message. SW sent list. Will continue to follow. Will ReTeam next week. CHEIKH MckeonW
[2024-07-31] MEDS: Jevity 1.5. 1,000 ML Bottle 240 ML GT (21:33)
[2024-07-31] MEDS: Atorvastatin Calcium 20 MG Tablet GT (21:33)
[2024-07-31] MEDS: Mirtazapine 15 MG Tablet 22.5 MG PO (21:33)
[2024-07-31] MEDS: 0.9% Saline Lock 10 ML Syringe IV (21:34)
[2024-08-01] VITALS (8 sets, daily range): BP systolic 104–109; BP diastolic 71–76; PULSE 87–101; RESP 17–22; TEMP 36.2–36.6; O2SAT 93–99; BMI 22.0
[2024-08-01] MEDS: Albuterol 2.5 MG/3 ML VIAL.NEB. INHALATION ×3 (03:00→23:21)
[2024-08-01] MEDS: Acetaminophen 650 MG/20 ML UDC GT ×2 (05:29→12:09)
[2024-08-01] MEDS: Triamcinolone Acetonide 0.1% Cream 15 gm 1 APPLIC TOPICAL (05:29)
[2024-08-01] MEDS: Ipratropium/Albuterol Sulfate 3 ML AMPUL.NEB INHALATION ×2 (06:42→17:08)
[2024-08-01] MEDS: Enoxaparin 40 MG/0.4 ML Syringe SC (08:07)
[2024-08-01] MEDS: Juven (unflavored) Packet 1 PACKET PO ×2 (08:07→16:05)
[2024-08-01] MEDS: Ensure Plus High Protein 120 ML LIQUID PO ×3 (08:07→16:05)
[2024-08-01] MEDS: Gabapentin 600 MG Tablet GT ×3 (08:08→16:05)
[2024-08-01] MEDS: Ferrous Sulfate 300 MG/5 ML UDC GT (08:08)
[2024-08-01] MEDS: Montelukast 10 MG Tablet GT (08:08)
[2024-08-01] MEDS: Multivitamin/Minerals/Iron (9 mg/15 ml) Liquid GT (08:08)
[2024-08-01] MEDS: oxyCODONE 5 MG Tablet GT ×2 (08:08→20:51)
[2024-08-01] MEDS: Famotidine 20 MG Tablet GT ×2 (08:08→20:49)
[2024-08-01] MEDS: Menthol/Lanolin/Calamine/Znox 113 GM Tube 1 APPLIC TOPICAL ×2 (08:18→20:47)
[2024-08-01] MEDS: Senna/Docusate Sodium 1 Tablet 2 TABLET GT ×2 (12:15→20:51)
[2024-08-01] MEDS: Polyethylene Glycol 3350 17 GM PACKET GT ×2 (12:15→20:49)
[2024-08-01] MEDS: 0.9% Saline Lock 10 ML Syringe IV ×2 (16:05→20:52)
[2024-08-01] MEDS: Jevity 1.5. 1,000 ML Bottle 240 ML GT (20:47)
[2024-08-01] MEDS: Atorvastatin Calcium 20 MG Tablet GT (20:49)
[2024-08-01] MEDS: Mirtazapine 15 MG Tablet 22.5 MG PO (20:50)
[2024-08-02] VITALS (7 sets, daily range): BP systolic 105–118; BP diastolic 63–74; PULSE 78–100; RESP 16–20; TEMP 36.4–36.8; O2SAT 94–98; BMI 23.8
[2024-08-02] MEDS: Albuterol 2.5 MG/3 ML VIAL.NEB. INHALATION ×3 (02:45→21:08)
[2024-08-02] MEDS: Triamcinolone Acetonide 0.1% Cream 15 gm 1 APPLIC TOPICAL (06:45)
[2024-08-02] MEDS: Ipratropium/Albuterol Sulfate 3 ML AMPUL.NEB INHALATION ×2 (07:03→16:46)
[2024-08-02] MEDS: oxyCODONE 5 MG Tablet GT ×3 (08:32→21:49)
[2024-08-02] MEDS: Famotidine 20 MG Tablet GT ×2 (08:32→21:45)
[2024-08-02] MEDS: Multivitamin/Minerals/Iron (9 mg/15 ml) Liquid GT (08:33)
[2024-08-02] MEDS: Montelukast 10 MG Tablet GT (08:33)
[2024-08-02] MEDS: Ferrous Sulfate 300 MG/5 ML UDC GT (08:33)
[2024-08-02] MEDS: Menthol/Lanolin/Calamine/Znox 113 GM Tube 1 APPLIC TOPICAL ×2 (08:33→21:44)
[2024-08-02] MEDS: Enoxaparin 40 MG/0.4 ML Syringe SC (08:33)
[2024-08-02] MEDS: Gabapentin 600 MG Tablet GT ×3 (08:33→17:56)
[2024-08-02] MEDS: Ensure Plus High Protein 120 ML LIQUID PO ×3 (10:42→17:56)
[2024-08-02] MEDS: Juven (unflavored) Packet 1 PACKET PO ×2 (10:43→15:35)
[2024-08-02] MEDS: Senna/Docusate Sodium 1 Tablet 2 TABLET GT ×2 (10:52→21:45)
[2024-08-02] MEDS: 0.9% Saline Lock 10 ML Syringe IV (18:00)
[2024-08-02] MEDS: Atorvastatin Calcium 20 MG Tablet GT (21:45)
[2024-08-02] MEDS: Jevity 1.5. 1,000 ML Bottle 240 ML GT (21:52)
[2024-08-03] MEDS: Albuterol 2.5 MG/3 ML VIAL.NEB. INHALATION ×3 (01:30→23:50)
[2024-08-03 01:43] VITALS: PULSE 101; RESP 20
[2024-08-03 05:52] VITALS: BP 106/76; PULSE 89; RESP 20; TEMP 36.7; O2SAT 99
[2024-08-03 05:54] VITALS: BMI 21.9
[2024-08-03 06:55] VITALS: PULSE 111; RESP 20; O2SAT 92
[2024-08-03] MEDS: Ipratropium/Albuterol Sulfate 3 ML AMPUL.NEB INHALATION ×2 (06:55→18:00)
[2024-08-03 07:10] LABS: Bedside Glucose 122 mg/dL (74-106)
--- NOTE | 2024-08-03 07:17 | CPS ---
Spoke with RN concerning patient's respiratory status with recent onset of wheezing and SOB Requested x-ray to assess.
--- NOTE | 2024-08-03 08:50 | RAD_ITS ---
STUDY: X-RAY CHEST REASON FOR EXAM: Male, 63 years old. Shortness of breath and weakness TECHNIQUE: AP and lateral views of the chest. COMPARISON: Comparison is made with prior study dated July 17, 2024. FINDINGS: A tracheostomy is in situ. The tip is at 3.9 cm proximal to the luli. Mild increased markings at the lung bases suggesting mild basilar linear scarring. There is no demonstrated pleural abnormality. Normal size heart. Normal mediastinum and winnie. Normal visualized pulmonary arteries. Normal visualized aortic arch and descending thoracic aorta. There is demineralization of the osseous structures. Healed bilateral rib fractures. There is no demonstrated abnormality of the visualized soft tissue structures of the upper abdomen. RAD/Chest PA and Lateral IMPRESSION: Mild increased markings at the lung bases suggestive of bibasilar linear scarring. Electronically Signed: Gerardo Ruby MD at 15:28 EST ,
[2024-08-03] MEDS: Triamcinolone Acetonide 0.1% Cream 15 gm 1 APPLIC TOPICAL (09:52)
[2024-08-03] MEDS: Enoxaparin 40 MG/0.4 ML Syringe SC (09:52)
[2024-08-03] MEDS: Ferrous Sulfate 300 MG/5 ML UDC GT (09:53)
[2024-08-03] MEDS: Juven (unflavored) Packet 1 PACKET PO ×2 (09:53→17:59)
[2024-08-03] MEDS: buPROPion (XL) 150 MG TABLET.XL PO (09:53)
[2024-08-03] MEDS: Ensure Plus High Protein 120 ML LIQUID PO ×3 (09:53→17:59)
[2024-08-03] MEDS: Famotidine 20 MG Tablet GT ×2 (09:53→20:42)
[2024-08-03] MEDS: Montelukast 10 MG Tablet GT (09:53)
[2024-08-03] MEDS: Gabapentin 600 MG Tablet GT ×3 (09:53→17:59)
[2024-08-03] MEDS: Multivitamin/Minerals/Iron (9 mg/15 ml) Liquid GT (09:53)
--- NOTE | 2024-08-03 10:04 | PCM.PROGNOTE ---
Subjective Subjective Afebrile VSS - Maintaining appropriate oxygen saturation on RA 2% room air today. Oral intake - FOOD good FLUIDS good Discussed with nursing -increased restlessness/agitation over the weekend. Continues to perseverate on left great toe pain/ingrown toenail/infection. Has been told multiple times that there is no evidence of infection and n Exam he does not grimace or withdraw with palpation/compression of the R great toenail. Emotionally labile. Reviewed the THERAPY notes Medication list reviewed. Denies chest pain, shortness of breath, lightheadedness, nausea/vomiting/abdominal pain, dysuria and calf tenderness. He is not co pain to me but, when someone mentions his toe or asks him about this he gets upset and complains. Objective Data Objective Data Vital Signs: Vital Signs Temp Pulse Resp BP Pulse Ox O2 Del Method O2 Flow Rate 98.0 F 111 H 20 H 106/76 92 Room Air 8 08/03/24 05:52 08/03/24 06:55 08/03/24 06:55 08/03/24 05:52 08/03/24 06:55 08/03/24 06:55 08/02/24 06:59 FiO2 35 08/02/24 06:59 Oxygen Flow Rate (L/min) 8 Oxygen Delivery Method Room Air Weight: 136 lb 0.403 oz Body Mass Index (BMI) 21.9 Intake & Output: Intake and Output for Last 24 Hours 08/01/24 08/02/24 08/03/24 23:59 23:59 23:59 Intake Total 3395 / 3685 3300 / 3300 650 / 650 Output Total 1800 / 2200 3375 / 3375 800 / 800 Balance 1595 / 1485 -75 / -75 -150 / -150 Medical Nutrition Assessment Dietitian: Malnutrition Criteria Met Start: 07/17/24 15:56 Freq: Status: Active Protocol: Document 07/17/24 15:56 SB (Rec: 07/17/24 15:56 SB [id number]) Nutrition Malnutrition Evidence of Malnutrition Exists Yes Malnutrition (severe): Chronic Evidenced By Suboptimal Energy Intake ( Severe),Weight Loss (Severe) Clinical Problem Chronic Disease or Condition Related Malnutrition Etiology severe related to inadequate oral intake and dysphagia Signs/Symptoms as evidenced by 16.6% unintentional weight loss x 3 months and PO meeting <75% of estimated needs x 3 months. Status Active Problem Recommendation Dietitian Recommendations/Changes Continue Jevity 1.5 @ 50ml/hr, will order 150ml flushes every 4 hours providing 1800 calories, 76 grams of protein, 1812ml of fluid/day. Will adjust tube feeding, as needed. Will monitor weight, as available. Review and approved by Vivi Harvey RD, LD. Lab / Micro Data 08/03/24 10:25 07/30/24 06:05 Labs: Laboratory Results - last 24 hr 08/03/24 06:25: POC Glucose 122 H Micro: Microbiology 07/23/24 09:10 Abs - Abdominal Gram Stain - Final 07/23/24 09:10 Abs - Abdominal Wound Culture - Final Bailee albicans 07/23/24 09:10 Abs - Abdominal Anaerobic Culture - Final No anaerobic bacteria isolated. 07/24/24 18:15 Stool Stool Occult Blood (BERTHA) - Final 07/17/24 15:00 Urine Catheter - Catheter Urine Culture - Final Culture exhibits no growth. Physical Exam Const alert and no apparent distress Neck supple Resp Resp Narrative: diminished throughout but, no wheezing. He has a few coarse crackles in the R base. Did not cough with deep breathing. He is not tachypneic. Minimal yellow trach secretions with suctioning. Effort and Inspection: Negative for labored Cardio regular rhythm and no gallops Cardio Narrative: Increased resting HR at times. Is suspect this is related to agitation. GI normal to inspection, nondistended, normoactive bowel sounds and soft to palpation GI Narrative: No guarding with palpation Extremity no calf tenderness Extremity Narrative: Still with a trace of edema in his hands but much less edema in the dorsum of his feet. Skin Rashes: no rashes Wound Narrative: PEG site and trach site are free of purulent discharge or erythema. Psych Psych Narrative: Restless, not resting well, agitated at times, tearful at time Assessment & Plan Assessment/Plan (1) Physical debility: (2) History of tracheostomy: (3) Dysphagia: QUALIFIERS: Dysphagia type: unspecified Qualified Code(s): R13.10 - Dysphagia, unspecified (4) S/P percutaneous endoscopic gastrostomy (PEG) tube placement: (5) Anoxic-ischemic encephalopathy: (6) Mass of right parotid gland: (7) Asthma-COPD overlap syndrome: (8) Depression: QUALIFIERS: Depression Type: unspecified Qualified Code(s): F32.A - Depression, unspecified (9) Agitation: PLAN: Plan 1. Continue therapy 2. I suspect the agitation/restlessness/increased confusion is related to the increase in the Remeron dose last week. Remeron was held last night and will be held again tonight. Will restart on Saturday evening at 15 mg. Wellbutrin has been added for depression starting this a.m.-Wellbutrin XL 150 mg daily. 3. PA and LAT CXR today. Wheezing this AM - resolved with an aerosol 4. Send a sputum obtain from the trach for Gram stain, C&S. 5. Check a CBC with differential today 6. Try 1 dose of Seroquel now for agitation.........Re-evaluate in a few hours. Charges/Coding Visit Charges Inpatient E&M: 40183 Subs Hosp L1
[2024-08-03] MEDS: Menthol/Lanolin/Calamine/Znox 113 GM Tube 1 APPLIC TOPICAL ×2 (10:05→20:44)
[2024-08-03 10:35] LABS: Absolute Lymphocyte Count 0.89 X10^3/uL (0.83-4.51); Absolute Neutrophil Count 9.3 X10^3/uL (2.0-7.7); Basophil# 0.06 X10^3/uL; Basophil% 0.5 % (0-1); Eosinophil# 0.37 X10^3/uL; Eosinophils% 3.1 % (0-5); Hemoglobin 11.9 g/dL (13.0-16.5); Lymphocyte # 0.89 X10^3/ul (0.83-4.51); Lymphocyte % 7.6 % (19-41); Mean Corp Hgb Conc 31.3 g/dL (32-36); Mean Corpuscular Volume 92.7 fL (80-94); Mean Platelet Vol. 9.4 fl (6.2-12.0); Monocyte# 0.92 X10^3/uL; Monocyte% 7.8 % (0-10); NRBC Flagged by Analyzer 0 % (0-5); Neutrophil # 9.34 X10^3/uL (2.7-7.7); Neutrophil % 79.5 % (47-70); Platelet Count 253 K/mm3 (150-450); RBC Distribution Width SD 51.2 fl (35.1-43.9); White Blood Count 11.8 K/mm3 (4.4-11.0)
--- NOTE | 2024-08-03 11:02 | CASEMGMT ---
Social Work SW received SNF choices via [facility]. Referrals placed to [facility] [place], [facility]. Kristina Parikh, CHEIKH DYKESW
[2024-08-03 11:15] VITALS: PULSE 108; RESP 22
[2024-08-03] MEDS: QUEtiapine 25 MG Tablet 12.5 MG GT (11:50)
[2024-08-03] MEDS: oxyCODONE 5 MG Tablet GT ×2 (11:50→20:42)
[2024-08-03 18:00] VITALS: BP 134/76; PULSE 74; PULSE 98; RESP 17; RESP 22; TEMP 36.8; O2SAT 92
[2024-08-03] MEDS: Polyethylene Glycol 3350 17 GM PACKET GT (20:41)
[2024-08-03] MEDS: Senna/Docusate Sodium 1 Tablet 2 TABLET GT (20:41)
[2024-08-03] MEDS: Acetaminophen 650 MG/20 ML UDC GT (20:42)
[2024-08-03] MEDS: Atorvastatin Calcium 20 MG Tablet GT (20:42)
[2024-08-03] MEDS: Jevity 1.5. 1,000 ML Bottle 240 ML GT (20:44)
[2024-08-04] VITALS (9 sets, daily range): BP systolic 140–144; BP diastolic 68–70; PULSE 80–104; RESP 17–26; TEMP 36.3; O2SAT 90–93; BMI 21.7
[2024-08-04] MEDS: oxyCODONE 5 MG Tablet GT ×3 (01:51→16:51)
[2024-08-04] MEDS: 0.9% Saline Lock 10 ML Syringe IV ×2 (04:20→21:59)
[2024-08-04] MEDS: Triamcinolone Acetonide 0.1% Cream 15 gm 1 APPLIC TOPICAL (04:20)
[2024-08-04] MEDS: Albuterol 2.5 MG/3 ML VIAL.NEB. INHALATION ×4 (04:28→22:13)
[2024-08-04] MEDS: Ipratropium/Albuterol Sulfate 3 ML AMPUL.NEB INHALATION ×2 (07:43→20:07)
[2024-08-04] MEDS: Juven (unflavored) Packet 1 PACKET PO ×2 (08:18→08:19)
[2024-08-04] MEDS: Enoxaparin 40 MG/0.4 ML Syringe SC (08:18)
[2024-08-04] MEDS: Gabapentin 600 MG Tablet GT ×3 (08:18→16:51)
[2024-08-04] MEDS: Multivitamin/Minerals/Iron (9 mg/15 ml) Liquid GT (08:19)
[2024-08-04] MEDS: Ferrous Sulfate 300 MG/5 ML UDC GT (08:19)
[2024-08-04] MEDS: Menthol/Lanolin/Calamine/Znox 113 GM Tube 1 APPLIC TOPICAL ×2 (08:19→21:30)
[2024-08-04] MEDS: Famotidine 20 MG Tablet GT ×2 (08:19→21:35)
[2024-08-04] MEDS: Senna/Docusate Sodium 1 Tablet 2 TABLET GT ×2 (08:19→21:35)
[2024-08-04] MEDS: Montelukast 10 MG Tablet GT (08:19)
[2024-08-04] MEDS: buPROPion (XL) 150 MG TABLET.XL PO (08:19)
[2024-08-04] MEDS: Polyethylene Glycol 3350 17 GM PACKET GT ×2 (08:19→21:35)
[2024-08-04] MEDS: Ensure Plus High Protein 120 ML LIQUID PO ×3 (08:19→16:52)
--- NOTE | 2024-08-04 11:51 | PCM.PROGNOTE ---
Subjective Subjective Afebrile VSS - Maintaining appropriate oxygen saturation on RA Oral intake - FOOD good FLUIDS good Discussed with nursing - continues to be very restless, did not sleep well last night again. Multiple somatic complaints. He got 1 dose of Seroquel 12.5 mg yesterday and was able to rest for period of time. This wore off late in the evening and he became very restless again, on the call light frequently with persistent c/o L great toe pain and numbness of the left leg, also requesting aerosols. Reviewed the THERAPY notes Medication list reviewed. Remains AF. Unless I ask him about pain he does not complain. Still cooperative with therapy. Restless, delusional? psychosis due to prolonged hospitalization? Atypical depression? Side effect of Remeron? Insomnia. Not tachypneic, breathing is not labored. Only complaint today is pain in the L great toe. Objective Data Objective Data Vital Signs: Vital Signs Temp Pulse Resp BP Pulse Ox O2 Del Method O2 Flow Rate 97.3 F L 98 20 H 144/70 H 92 Room Air 35 08/04/24 06:00 08/04/24 07:44 08/04/24 10:25 08/04/24 06:00 08/04/24 07:44 08/04/24 10:00 08/04/24 04:29 FiO2 35 08/04/24 06:00 Oxygen Flow Rate (L/min) 35 Oxygen Delivery Method Room Air Weight: 134 lb 7.712 oz Body Mass Index (BMI) 21.7 Intake & Output: Intake and Output for Last 24 Hours 08/02/24 08/03/24 08/04/24 23:59 23:59 23:59 Intake Total 3300 / 3300 2750 / 2750 1030 / 1030 Output Total 3375 / 3375 1900 / 2300 1000 / 1000 Balance -75 / -75 850 / 450 30 / 30 Medical Nutrition Assessment Dietitian: Malnutrition Criteria Met Start: 07/17/24 15:56 Freq: Status: Active Protocol: Document 07/17/24 15:56 SB (Rec: 07/17/24 15:56 SB [id number]) Nutrition Malnutrition Evidence of Malnutrition Exists Yes Malnutrition (severe): Chronic Evidenced By Suboptimal Energy Intake ( Severe),Weight Loss (Severe) Clinical Problem Chronic Disease or Condition Related Malnutrition Etiology severe related to inadequate oral intake and dysphagia Signs/Symptoms as evidenced by 16.6% unintentional weight loss x 3 months and PO meeting <75% of estimated needs x 3 months. Status Active Problem Recommendation Dietitian Recommendations/Changes Continue Jevity 1.5 @ 50ml/hr, will order 150ml flushes every 4 hours providing 1800 calories, 76 grams of protein, 1812ml of fluid/day. Will adjust tube feeding, as needed. Will monitor weight, as available. Review and approved by Vivi Harvey RD, LD. Lab / Micro Data 08/03/24 10:25 07/30/24 06:05 Micro: Microbiology 07/23/24 09:10 Abs - Abdominal Gram Stain - Final 07/23/24 09:10 Abs - Abdominal Wound Culture - Final Bailee albicans 07/23/24 09:10 Abs - Abdominal Anaerobic Culture - Final No anaerobic bacteria isolated. 07/24/24 18:15 Stool Stool Occult Blood (BERTHA) - Final 07/17/24 15:00 Urine Catheter - Catheter Urine Culture - Final Culture exhibits no growth. Radiography Diagnostic Testing: Radiology Impression Chest X-Ray 08/03/24 08:50 IMPRESSION: Mild increased markings at the lung bases suggestive of bibasilar linear scarring. Electronically Signed: Gerardo Ruby MD at 15:28 EST , Physical Exam Const alert and no apparent distress Constitutional Narrative: TElls me today his GF is bringing in a foot massager.....she asked if she could soak his foot in Epsom salts but, we were not asked about a foot massager General Appearance: cooperative HEENT moist oral mucous membranes Neck supple Neck Narrative: Trach site has no DC and no erythema. Resp Resp Narrative: Diminished throughout but, no wheezing. He has a few coarse crackles in the R base. Did not cough with deep breathing or with eating and drinking. He is not tachypneic. Minimal yellow trach secretions with suctioning. Sputum GM stain and culture are pending. No infiltrates on CXR yesterday. Effort and Inspection: Negative for labored Cardio regular rhythm and no gallops Cardio Narrative: Increased resting HR at times. Is suspect this is related to agitation. GI normal to inspection, nondistended, normoactive bowel sounds and soft to palpation GI Narrative: No guarding with palpation Extremity no calf tenderness Extremity Narrative: Still with a trace of edema in his hands but much less edema in the dorsum of his feet. Skin Rashes: no rashes Wound Narrative: PEG site and trach site are free of purulent discharge or erythema. Psych Psych Narrative: Restless, not resting well, agitated at times, tearful at times. No visual hallucinations but, I suspect the is delusional and is perseverating on pain in the L great toe........there is nothing wrong with the toe on PE and I can pinch it hard and he does not even grimace or withdraw. 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 Continue therapy 2. Continue Wellbutrin. Discontinue Remeron. 3. He responded well to Seroquel yesterday. Will order 12.5 mg every morning and 25 mg at at bedtime which I hope will help with his sleep at night. Will need to check a EKG in a few days for QT prolongation. I suspect he has atypical depression with delusions. Has been in the hospital since early June. 4. He remains afebrile and is not coughing. No indication for antibiotics at this time. Chest x-ray showed some increased interstitial markings in the bases which is likely scarring versus atelectasis. No wheezing today. Await the results of the sputum Gram stain and culture. If there is significant pyuria on the Gram stain will start a p.o. antibiotic, possibly doxycycline. Charges/Coding Visit Charges Inpatient E&M: 48705 [facility] [[email or web address]] Hosp L1
[2024-08-04] MEDS: QUEtiapine 25 MG Tablet PO (19:40)
[2024-08-04] MEDS: Acetaminophen 650 MG/20 ML UDC GT (21:34)
[2024-08-04] MEDS: Atorvastatin Calcium 20 MG Tablet GT (21:35)
[2024-08-04] MEDS: Jevity 1.5. 1,000 ML Bottle 240 ML GT (21:39)
[2024-08-05] MEDS: Albuterol 2.5 MG/3 ML VIAL.NEB. INHALATION ×4 (01:00→21:10)
--- NOTE | 2024-08-05 01:00 | NURSING ---
Pt called out asking for breathing tx, asking frequently this shift, c/o feeling short of breath, audible wheezes heard, RR 36, HR 112, POX 90% on 30% FIo2, RT called for support.
--- NOTE | 2024-08-05 01:05 | NURSING ---
Resp Therapy here at bedside, assessed pt, removed trach and cleaned, O2 increased to 35% FIo2, PRN aerosol given.
--- NOTE | 2024-08-05 01:09 | NURSING ---
Dr. Linda, he returned call, updated on pt hx and condition, vitals, new orders for ABG, BNP, stat CXR, resp panel, solumedrol 125mg IV X1 then 60mg IV Q12hrs, Zosyn and Vanc per RX to dose.
--- NOTE | 2024-08-05 01:20 | RAD_ITS ---
INDICATION: SOB EXAMINATION/TECHNIQUE: X-RAY - XR Chest 1 View AP portable. 1:28 AM COMPARISON: Prior study dated: 08/03/2024 FINDINGS: LINES/DEVICES: Tracheostomy tube unchanged. LUNGS: No consolidation. Prominent interstitial markings again noted at the lung bases. No pneumothorax. MEDIASTINUM: Unremarkable. CARDIAC SILHOUETTE: Not enlarged. BONES AND SOFT TISSUES: No acute abnormalities. Nonacute left rib fractures.] Right rib fractures also unchanged but of uncertain age, possibly more acute or subacute. RAD/Chest 1 View (Portable) IMPRESSION: Prominent basilar interstitial infiltrates likely chronic. No acute findings. Electronically Signed: Aga Miguel MD at 2:32 EST ,
[2024-08-05] MEDS: MethylPREDNISolone 125 MG/2 ML Vial IV (01:48)
--- NOTE | 2024-08-05 01:48 | NURSING ---
Radiology here at 0130 to do CXR, Lab in at 0140 to draw blood. Per RT, pt refused to have ABG drawn, pt suctioned by resp therapist and resp panel obtained at 0148,
[2024-08-05] MEDS: Vancomycin HCl 1,000 MG in 0.9% Normal Saline (250mL Bag) 250 ML 167 MG IV (01:50)
[2024-08-05] MEDS: oxyCODONE 5 MG Tablet GT ×3 (02:11→22:13)
--- NOTE | 2024-08-05 03:05 | NURSING ---
Pt resting in bed with HOB elevated, resp even, no resp distress noted. Resting with eyes closed.
[2024-08-05] MEDS: Piperacil/Tazobactam 3.375 GM in 0.9% Normal Saline (50mL MB+) 50 ML IV (03:25)
[2024-08-05 06:20] VITALS: BP 115/80; PULSE 85; RESP 20; TEMP 36.1; O2SAT 97; BMI 22.6
[2024-08-05] MEDS: Triamcinolone Acetonide 0.1% Cream 15 gm 1 APPLIC TOPICAL (06:30)
[2024-08-05] MEDS: QUEtiapine 25 MG Tablet 12.5 MG PO (06:40)
--- NOTE | 2024-08-05 08:39 | PCM.RX.CS ---
Consult Antibiotic Management Pharmacy has been consulted to manage selected antibiotic: Vancomycin Type of Intervention Type of Consult: New start Suspected Infection Suspected Infection: Sepsis Prior Doses of Antibiotics Prior Doses of Antibiotics Received/Current Regimen: 08/05/24 @ 0158 Labs Labs: Sodium 138 mmol/L (136-145) 07/30/24 06:05 Potassium 4.0 mmol/L (3.5-5.1) 07/30/24 06:05 Chloride 103 mmol/L (98-107) 07/30/24 06:05 Carbon Dioxide 28.0 mmol/L (21.0-32.0) 07/30/24 06:05 Anion Gap 7 (5-15) 07/30/24 06:05 BUN 18 mg/dL (7-18) 07/30/24 06:05 Creatinine 0.49 mg/dL (0.70-1.30) L 07/30/24 06:05 Est GFR (MDRD) Af Amer 222 mL/min (>60) 07/30/24 06:05 Est GFR (MDRD) Non-Af 183 mL/min (>60) 07/30/24 06:05 BUN/Creatinine Ratio 36.8 RATIO (10-20) H 07/30/24 06:05 Glucose 111 mg/dL (74-106) H 07/30/24 06:05 Microbiology Microbiology: Microbiology 08/04/24 01:30 Sputum, Tracheal Aspirate Gram Stain - Final 07/23/24 09:10 Abs - Abdominal Gram Stain - Final 07/23/24 09:10 Abs - Abdominal Wound Culture - Final Bailee albicans 07/23/24 09:10 Abs - Abdominal Anaerobic Culture - Final No anaerobic bacteria isolated. 07/24/24 18:15 Stool Stool Occult Blood (BERTHA) - Final 07/17/24 15:00 Urine Catheter - Catheter Urine Culture - Final Culture exhibits no growth. Dosing Weight Weight used for dosin kg Estimated Creatinine Clearance Estimated Creatinine Clearance: 115 Goal Trough Goal Trough: 15-20 mcg/mL Pharmacy Plan for Drug Dosing Pharmacy Plan for Drug DosinMG EVERY 8 HOURS Pharmacy Service will continue to monitor and adjust dosing as required. Follow-Up Labs Follow-Up Labs: Trough: Vancomycin Date/Time Labs Ordered Labs to be done on [date and time ordered]: 08/06/24 @ 0130
--- NOTE | 2024-08-05 08:55 | CPS ---
given by Lorena Salmeron
--- NOTE | 2024-08-05 08:57 | PN_ITS ---
Subjective Subjective Afebrile - no fevers past several days VSS - Maintaining appropriate oxygen saturation on RA - FIO2 increased overnight. Refused an ABG Oral intake - FOOD good FLUIDS good Discussed with nursing - More SOB and wheezy last night. Having shaking chills. Hospitalist ordered Zosyn and Vanco. Reviewed the THERAPY notes Medication list reviewed. Sputum Gram stain had 1+ white blood cells and rare gram-positive chente. Respiratory panel is pending. Started on Solumedrol. CXR unchanged.......chronic scarring or atelectasis in the bases. Respiratory panel is negative. COVID-19 antigen is negative. Denies chest pain, palpitations, nausea/vomiting/abdominal pain, dysuria. Continues to complain of left great toe pain and is fixated on this. Objective Data Objective Data Vital Signs: Vital Signs Temp Pulse Resp BP Pulse Ox O2 Del Method O2 Flow Rate 96.9 F L 85 20 H 115/80 97 Trach Collar 8 08/05/24 06:20 08/05/24 06:20 08/05/24 06:20 08/05/24 06:20 08/05/24 06:20 08/05/24 08:54 08/05/24 08:54 FiO2 35 08/05/24 08:54 Oxygen Flow Rate (L/min) 8 Oxygen Delivery Method Trach Collar Weight: 140 lb 6.951 oz Body Mass Index (BMI) 22.6 Intake & Output: Intake and Output for Last 24 Hours 08/03/24 08/04/24 08/05/24 23:59 23:59 23:59 Intake Total 2750 / 2750 2040 / 2040 320 / 320 Output Total 1900 / 2300 1800 / 1800 700 / 700 Balance 850 / 450 240 / 240 -380 / -380 Medical Nutrition Assessment Dietitian: Malnutrition Criteria Met Start: 07/17/24 15:56 Freq: Status: Active Protocol: Document 07/17/24 15:56 SB (Rec: 07/17/24 15:56 SB [id number]) Nutrition Malnutrition Evidence of Malnutrition Exists Yes Malnutrition (severe): Chronic Evidenced By Suboptimal Energy Intake ( Severe),Weight Loss (Severe) Clinical Problem Chronic Disease or Condition Related Malnutrition Etiology severe related to inadequate oral intake and dysphagia Signs/Symptoms as evidenced by 16.6% unintentional weight loss x 3 months and PO meeting <75% of estimated needs x 3 months. Status Active Problem Recommendation Dietitian Recommendations/Changes Continue Jevity 1.5 @ 50ml/hr, will order 150ml flushes every 4 hours providing 1800 calories, 76 grams of protein, 1812ml of fluid/day. Will adjust tube feeding, as needed. Will monitor weight, as available. Review and approved by Vivi Harvey RD, LD. Lab / Micro Data 08/03/24 10:25 07/30/24 06:05 Micro: Microbiology 08/04/24 01:30 Sputum, Tracheal Aspirate Gram Stain - Final 07/23/24 09:10 Abs - Abdominal Gram Stain - Final 07/23/24 09:10 Abs - Abdominal Wound Culture - Final Bailee albicans 07/23/24 09:10 Abs - Abdominal Anaerobic Culture - Final No anaerobic bacteria isolated. 07/24/24 18:15 Stool Stool Occult Blood (BERTHA) - Final 07/17/24 15:00 Urine Catheter - Catheter Urine Culture - Final Culture exhibits no growth. Radiography Diagnostic Testing: Radiology Impression Chest X-Ray 08/05/24 01:20 IMPRESSION: Prominent basilar interstitial infiltrates likely chronic. No acute findings. Electronically Signed: Aga Miguel MD at 2:32 EST , Physical Exam Const alert Constitutional Narrative: calmer today than he has been. Did not mention his toe to me but, has been telling the nurses his feet are swollen and he needs to soak them. His feet are much less swollen than they were at admission. Resp Resp Narrative: few coarse crackles in the bases......mostly resolved after a few deep breaths. Better able to take a deep breath today. Did not cough with deep breathing. Not tachypneic. No conversational dyspnea. No wheezing. BS's are diminished throughout and there has been no significant change. Cardio regular rate, regular rhythm and no gallops GI normal to inspection, nondistended, normoactive bowel sounds, soft to palpation and non-tender Extremity no calf tenderness Extremity Narrative: Minimal edema of the hands and feet.....much better than at admission to rehab. Skin Rashes: no rashes Wound Narrative: The PEG site has an area of necrosis caudal to the PEG......no erythema and no purulent DC. This is likely related to the previous PEG being embedded in the abdominal wall. It is not changing and will heal in time. Assessment & Plan Assessment/Plan (1) Physical debility: (2) History of tracheostomy: (3) Dysphagia: QUALIFIERS: Dysphagia type: unspecified Qualified Code(s): R13.10 - Dysphagia, unspecified (4) S/P percutaneous endoscopic gastrostomy (PEG) tube placement: (5) Anoxic-ischemic encephalopathy: (6) Mass of right parotid gland: (7) Asthma-COPD overlap syndrome: (8) Agitation: (9) Recurrent major depressive disorder with atypical features: (10) COPD with acute exacerbation: (11) HCAP (healthcare-associated pneumonia): PLAN: Vs bacterial bronchitis. CXR has somke increased interstitial markings in the bases, L>R.......hard to tell if this is scarring, atelectasis or infiltrate. Will treat for PNA and await the results of the sputum culture. Recent WBC was elevated but, he has been AF. PLAN: Plan 1. Continue therapy 2. Discontinue vancomycin and Zosyn. Chest x-ray is unchanged with no infiltrates and no pulmonary vascular congestion. He has been persistently afebrile. Respiratory panel is negative. COVID is negative. Sputum Gram stain only has 1+ WBCs. 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 Start Cefdinir and await the results of the sputum culture. Charges/Coding Visit Charges Inpatient E&M: 26534 [facility] Hosp L1
--- NOTE | 2024-08-05 08:58 | CPS ---
given by Ileana Ennis
[2024-08-05] MEDS: Enoxaparin 40 MG/0.4 ML Syringe SC (10:18)
[2024-08-05] MEDS: Ferrous Sulfate 300 MG/5 ML UDC GT (10:18)
[2024-08-05] MEDS: Senna/Docusate Sodium 1 Tablet 2 TABLET GT ×2 (10:19→22:15)
[2024-08-05] MEDS: buPROPion (XL) 150 MG TABLET.XL PO (10:19)
[2024-08-05] MEDS: Famotidine 20 MG Tablet GT ×2 (10:19→22:15)
[2024-08-05] MEDS: Polyethylene Glycol 3350 17 GM PACKET GT ×2 (10:19→22:15)
[2024-08-05] MEDS: Multivitamin/Minerals/Iron (9 mg/15 ml) Liquid GT (10:19)
[2024-08-05] MEDS: Juven (unflavored) Packet 1 PACKET PO ×2 (10:19→18:23)
[2024-08-05] MEDS: Montelukast 10 MG Tablet GT (10:19)
[2024-08-05] MEDS: Menthol/Lanolin/Calamine/Znox 113 GM Tube 1 APPLIC TOPICAL ×2 (10:19→22:14)
[2024-08-05] MEDS: Gabapentin 600 MG Tablet GT ×3 (10:19→18:25)
[2024-08-05] MEDS: 0.9% Saline Lock 10 ML Syringe IV ×3 (10:20→22:13)
[2024-08-05] MEDS: Ensure Plus High Protein 120 ML LIQUID PO ×3 (10:20→18:23)
[2024-08-05 10:21] VITALS: PULSE 100; RESP 20
[2024-08-05 10:35] LABS: BNP,B-Type NATRIURETIC PEPTIDE 32.7 pg/mL (0-100)
[2024-08-05] MEDS: MethylPREDNISolone 125 MG/2 ML Vial 60 MG IV ×2 (10:40→22:16)
[2024-08-05] MEDS: Vancomycin HCl 750 MG in 0.9% Normal Saline (250mL Bag) 250 ML 250 MG IV (10:53)
[2024-08-05] MEDS: Cefdinir 300 MG Capsule PO ×2 (14:15→22:15)
[2024-08-05 16:52] VITALS: PULSE 88; RESP 18
[2024-08-05] MEDS: Ipratropium/Albuterol Sulfate 3 ML AMPUL.NEB INHALATION (16:52)
[2024-08-05 18:00] VITALS: BP 106/69; PULSE 81; RESP 16; TEMP 37.3; O2SAT 93
[2024-08-05 21:09] VITALS: O2SAT 87
[2024-08-05 21:10] VITALS: PULSE 107; RESP 24; O2SAT 93
[2024-08-05] MEDS: QUEtiapine 25 MG Tablet PO (22:14)
[2024-08-05] MEDS: Jevity 1.5. 1,000 ML Bottle 240 ML GT (22:15)
[2024-08-05] MEDS: Atorvastatin Calcium 20 MG Tablet GT (22:15)
[2024-08-06] VITALS (9 sets, daily range): BP systolic 112–136; BP diastolic 66–83; PULSE 75–101; RESP 16–20; TEMP 36.3–37.2; O2SAT 96–97; BMI 21.7
[2024-08-06] MEDS: Albuterol 2.5 MG/3 ML VIAL.NEB. INHALATION ×4 (00:20→22:50)
[2024-08-06] MEDS: QUEtiapine 25 MG Tablet 12.5 MG PO (06:58)
[2024-08-06] MEDS: Triamcinolone Acetonide 0.1% Cream 15 gm 1 APPLIC TOPICAL (06:58)
[2024-08-06] MEDS: Ipratropium/Albuterol Sulfate 3 ML AMPUL.NEB INHALATION ×2 (07:26→18:59)
[2024-08-06] MEDS: Multivitamin/Minerals/Iron (9 mg/15 ml) Liquid GT (08:58)
[2024-08-06] MEDS: Juven (unflavored) Packet 1 PACKET PO ×2 (08:58→17:49)
[2024-08-06] MEDS: Ferrous Sulfate 300 MG/5 ML UDC GT (08:58)
[2024-08-06] MEDS: Ensure Plus High Protein 120 ML LIQUID PO ×3 (08:59→17:49)
[2024-08-06] MEDS: Menthol/Lanolin/Calamine/Znox 113 GM Tube 1 APPLIC TOPICAL ×2 (09:00→20:42)
[2024-08-06] MEDS: Enoxaparin 40 MG/0.4 ML Syringe SC (09:00)
[2024-08-06] MEDS: MethylPREDNISolone 125 MG/2 ML Vial 60 MG IV ×2 (09:01→21:08)
[2024-08-06] MEDS: Cefdinir 300 MG Capsule PO ×2 (09:02→20:42)
[2024-08-06] MEDS: Famotidine 20 MG Tablet GT ×2 (09:02→20:42)
[2024-08-06] MEDS: Senna/Docusate Sodium 1 Tablet 2 TABLET GT ×2 (09:02→20:43)
[2024-08-06] MEDS: buPROPion (XL) 150 MG TABLET.XL PO (09:02)
[2024-08-06] MEDS: Montelukast 10 MG Tablet GT (09:02)
[2024-08-06] MEDS: Polyethylene Glycol 3350 17 GM PACKET GT ×2 (09:03→20:42)
[2024-08-06] MEDS: Gabapentin 600 MG Tablet GT ×3 (09:05→17:50)
[2024-08-06] MEDS: oxyCODONE 5 MG Tablet GT ×2 (09:30→18:53)
[2024-08-06] MEDS: 0.9% Saline Lock 10 ML Syringe IV ×2 (09:31→21:13)
--- NOTE | 2024-08-06 13:12 | CASEMGMT ---
Addendum entered by Kristina Parikh 08/07/24 14:23: 7000 completed. Requested update from [facility] on precert. Addendum entered by Kristina Parikh 08/07/24 11:51: Cot transport placed on will call through [facility]. Addendum entered by Kristina Parikh 08/06/24 13:37: 7000 started Original Note: Social Work IDT met with patient and conference call with dtr for Team meeting. Discussed patient's progress in PT/OT/ST/SN. [facility] with updates every 7 days. Pt is on day 21 and IDT is ready to set a DC date for pt to admit skilled to a SNF. Updated dtr/pt that [facility] accept. [facility] does not accept trach patients and [facility] did not respond. is recommending pt see psychiatry at the SNF. SW inquired to both accepting SNFs if psychiatry is available to pt. Will await response. SW inquired about SNF preference. [facility]tr[facility]pt [facility] as several friends work/visit there. SW to coordinate. IDT is requesting DC 08/10, if SNF can accept and precert is obtained. Dtr/pt is agreeable. SW to coordinate cot transport at DC. SW updated both SNFs. Requested to start precert for admission 08/10, if possible. Plan: [facility] 08/[facility], pending precert. CHEIKH Mckeon
--- NOTE | 2024-08-06 16:42 | PN_ITS ---
Subjective Subjective Manjit was seen on team rounds today. His daughter Clarice participated by phone Afebrile VSS - Maintaining appropriate oxygen saturation on RA Oral intake - FOOD good FLUIDS good Discussed with nursing - slept better last night. More alert today. Reviewed the THERAPY notes Medication list reviewed. He is c/o burning in his feet. He also is c/o ingrown toenails . Not as agitated and persistent about the L great toenail today. Not as agitated with nursing or his dtr. Denies CP, N/V/abd pain, dysuria and calf pain. Looks more comfortable today. Tells me that his SOB is doing better and he is back on RA and maintaining an appropriate O2 sat on RA. Objective Data Objective Data Vital Signs: Vital Signs Temp Pulse Resp BP Pulse Ox O2 Del Method O2 Flow Rate 97.4 F L 75 18 112/66 97 Room Air 3 08/06/24 06:00 08/06/24 16:17 08/06/24 16:17 08/06/24 06:00 08/06/24 07:26 08/06/24 07:26 08/06/24 04:40 FiO2 35 08/06/24 00:20 Oxygen Flow Rate (L/min) 3 Oxygen Delivery Method Room Air Weight: 134 lb 11.239 oz Body Mass Index (BMI) 21.7 Intake & Output: Intake and Output for Last 24 Hours 08/04/24 08/05/24 08/06/24 23:59 23:59 23:59 Intake Total 2040 / 2040 3135 / 3135 480 / 480 Output Total 1800 / 1800 2925 / 2925 850 / 850 Balance 240 / 240 210 / 210 -370 / -370 Medical Nutrition Assessment Dietitian: Malnutrition Criteria Met Start: 07/17/24 15:56 Freq: Status: Active Protocol: Document 07/17/24 15:56 SB (Rec: 07/17/24 15:56 SB [id number]) Nutrition Malnutrition Evidence of Malnutrition Exists Yes Malnutrition (severe): Chronic Evidenced By Suboptimal Energy Intake ( Severe),Weight Loss (Severe) Clinical Problem Chronic Disease or Condition Related Malnutrition Etiology severe related to inadequate oral intake and dysphagia Signs/Symptoms as evidenced by 16.6% unintentional weight loss x 3 months and PO meeting <75% of estimated needs x 3 months. Status Active Problem Recommendation Dietitian Recommendations/Changes Continue Jevity 1.5 @ 50ml/hr, will order 150ml flushes every 4 hours providing 1800 calories, 76 grams of protein, 1812ml of fluid/day. Will adjust tube feeding, as needed. Will monitor weight, as available. Review and approved by Vivi Harvey RD, LD. Lab / Micro Data 08/03/24 10:25 07/30/24 06:05 Micro: Microbiology 08/04/24 01:30 Sputum, Tracheal Aspirate Gram Stain - Final 08/04/24 01:30 Sputum, Tracheal Aspirate Respiratory Culture - Final Klebsiella oxytoca Corynebacterium striatum 08/05/24 11:10 Nasal Secretion SARS-CoV-2 Antigen (Rapid) - Final 08/05/24 02:00 Mucosa - Nasopharyngeal Respiratory Panel (PCR) - Final 07/23/24 09:10 Abs - Abdominal Gram Stain - Final 07/23/24 09:10 Abs - Abdominal Wound Culture - Final Bailee albicans 07/23/24 09:10 Abs - Abdominal Anaerobic Culture - Final No anaerobic bacteria isolated. 07/24/24 18:15 Stool Stool Occult Blood (BERTHA) - Final 07/17/24 15:00 Urine Catheter - Catheter Urine Culture - Final Culture exhibits no growth. Radiography Diagnostic Testing: Radiology Impression Chest X-Ray 08/05/24 01:20 IMPRESSION: Prominent basilar interstitial infiltrates likely chronic. No acute findings. Electronically Signed: Aga Miguel MD at 2:32 EST , Physical Exam Const Constitutional Narrative: More alert today. Cooperative. Agitation is better than it has been. Holding his head up better than he has been able to. Still tearful at times, suha when we discuss going to a SNF for additional rehab. Resp Resp Narrative: Diminished throughout, no crackles, very rare end expiratory wheeze. Not tachypneic. Not requiring any supplemental oxygen while awake today Cardio regular rate and regular rhythm Cardio Narrative: No ectopy GI normal to inspection, nondistended, normoactive bowel sounds, soft to palpation and non-tender Extremity no calf tenderness Extremity Narrative: The feet are purple/red in coloration when they are dependent due to venous insufficiency. The feet are both warm to touch. Palpation of the L great toe and compression of the nail elicits no grimacing and no withdrawal of the foot. The is no redness around the nail and no DC. General Extremity: Negative for edema Skin Rashes: no rashes Wound Narrative: The necrotic rim of tissue just caudal to the PEG is healing. No erythema and no DC. Psych Psych Narrative: Less agitated with the addition of Seroquel to the drug regimen. NO drowsy this AM....he is actually more alert (possibly because he slept better last night). Assessment & Plan Assessment/Plan (1) Physical debility: (2) History of tracheostomy: (3) Dysphagia: QUALIFIERS: Dysphagia type: unspecified Qualified Code(s): R13.10 - Dysphagia, unspecified (4) S/P percutaneous endoscopic gastrostomy (PEG) tube placement: (5) Anoxic-ischemic encephalopathy: (6) Mass of right parotid gland: (7) Asthma-COPD overlap syndrome: (8) Agitation: (9) Recurrent major depressive disorder with atypical features: (10) COPD with acute exacerbation: (11) HCAP (healthcare-associated pneumonia): PLAN: Vs bacterial bronchitis. CXR has somke increased interstitial markings in the bases, L>R.......hard to tell if this is scarring, atelectasis or infiltrate. Will treat for PNA and await the results of the sputum culture. Recent WBC was elevated but, he has been AF. Sputum culture grew Klebsiella oxytoca which is sensitive to cefdinir. PLAN: Plan 1. Continue therapy 2. Continue Cefdinir for a total of 7 days 3. Transition to prednisone from Solu-Medrol in the a.m. 4. Continue Seroquel as ordered. 5. Plan transfer to [facility] on Saturday. 6. Recommend psychiatry and podiatry at [facility]. I have considered that the pain in the Left foot may be central neuropathic pain but, he has been on Gabapentin 600 mg TID since admission with no change in the pain. COnsider a trial of neuropathic cream to the Great toe. Charges/Coding Visit Charges Inpatient E&M: 84378 Subs Hosp L2
[2024-08-06] MEDS: QUEtiapine 25 MG Tablet PO (18:53)
[2024-08-06] MEDS: Atorvastatin Calcium 20 MG Tablet GT (20:42)
[2024-08-06] MEDS: Jevity 1.5. 1,000 ML Bottle 240 ML GT (20:43)
[2024-08-06] MEDS: Acetaminophen 650 MG/20 ML UDC GT (21:08)
[2024-08-07] VITALS (8 sets, daily range): BP systolic 117–136; BP diastolic 67–86; PULSE 78–95; RESP 16–20; TEMP 36.7–36.9; O2SAT 94–97; BMI 22.3
[2024-08-07] MEDS: oxyCODONE 5 MG Tablet GT ×3 (03:01→20:44)
[2024-08-07] MEDS: Acetaminophen 650 MG/20 ML UDC GT ×2 (03:02→20:44)
[2024-08-07] MEDS: Albuterol 2.5 MG/3 ML VIAL.NEB. INHALATION ×2 (03:38→16:10)
[2024-08-07] MEDS: QUEtiapine 25 MG Tablet 12.5 MG PO (06:33)
[2024-08-07] MEDS: Triamcinolone Acetonide 0.1% Cream 15 gm 1 APPLIC TOPICAL (06:34)
[2024-08-07] MEDS: Ipratropium/Albuterol Sulfate 3 ML AMPUL.NEB INHALATION ×2 (06:35→19:55)
[2024-08-07] MEDS: Juven (unflavored) Packet 1 PACKET PO (09:08)
[2024-08-07] MEDS: Ensure Plus High Protein 120 ML LIQUID PO ×3 (09:08→17:09)
[2024-08-07] MEDS: Ferrous Sulfate 300 MG/5 ML UDC GT (09:08)
[2024-08-07] MEDS: Gabapentin 600 MG Tablet GT ×3 (09:08→17:08)
[2024-08-07] MEDS: Multivitamin/Minerals/Iron (9 mg/15 ml) Liquid GT (09:08)
[2024-08-07] MEDS: Polyethylene Glycol 3350 17 GM PACKET GT ×2 (09:09→20:43)
[2024-08-07] MEDS: MethylPREDNISolone 125 MG/2 ML Vial 60 MG IV (09:09)
[2024-08-07] MEDS: Enoxaparin 40 MG/0.4 ML Syringe SC (09:09)
[2024-08-07] MEDS: Montelukast 10 MG Tablet GT (09:09)
[2024-08-07] MEDS: Menthol/Lanolin/Calamine/Znox 113 GM Tube 1 APPLIC TOPICAL ×2 (09:09→20:43)
[2024-08-07] MEDS: Famotidine 20 MG Tablet GT ×2 (09:09→20:42)
[2024-08-07] MEDS: Senna/Docusate Sodium 1 Tablet 2 TABLET GT ×2 (09:09→20:44)
[2024-08-07] MEDS: Cefdinir 300 MG Capsule PO ×2 (09:09→20:42)
[2024-08-07] MEDS: buPROPion (XL) 150 MG TABLET.XL PO (09:10)
--- NOTE | 2024-08-07 12:03 | PCM.TXEXTCAR ---
Diet Diet Order/Speech Therapy: 07/24/24 15:56 Diet: Cardiac - Heart Healthy Food consistency:: Mechanical (Minced/Moist) Liquid Consistency:: Regular/Thin Diet Comments: FEED by nursing Routine Orders/Code Status Enema Type: Fleetz Enema Frequency: Daily PRN Suppository Type: Dulcolax 10mg Suppository Frequency: Daily PRN Code Status: Full Code DC O2, CPAP, BIPAP needs PSN CPAP & BiPAP: BiPAP & CPAP Settings per PSN Fraction of Inspired Oxygen ( 35 08/06/24 00:20 FIO2) Home O2 Instructions: Home O2 discharge Instructions Type of respiratory needs? Oxygen 08/07/24 12:13 DC Oxygen Instruction Oxygen frequency With Sleeping 08/07/24 12:13 Additional Home O2 Discharge instructions: Yes Type of respiratory needs?: Oxygen (No O2 needed when awake. At night when sleeping hummidified O2 via trach collar at 28%. ) Oxygen frequency: With Sleeping Oxygen liters per minute when sleepin (28% FIO@ via trach collar) Wound(s) coccyx: Wound Type: Pressure Injury peg insertion site: Wound Type: Surgical Incision (There is a small amount of necrosis around the PEG because the PEG was embedded in the abdominal wall prior to replacing the Tube. It is healing and there is no sign of infection. It is non-tender.) Suggestions for Active Care Times a day to sit in chair: 3 (with meals and PRN) Therapies Weight Bearing: Weight bearing as tolerated Extremity Affected:: Bilateral Lower and Bilateral Upper Physical Therapy: Eval and Treat Occupational Therapy: Eval and Treat Speech Therapy: Eval and Treat Problem/Diagnosis (1) Physical debility: Status: Acute Code(s): R53.81 - Other malaise Plan: Due to cardiac arrest with ROSC, prolonged hospitalization. Transfer to SNF for additional therapy. (2) History of tracheostomy: Status: Chronic Code(s): Z98.890 - Other specified postprocedural states Plan: Tolerates PMV all day while awake and has not needed supplemental oxygen when awake. Started capping the trach for short periods of time on 08/06/24. Continue capping trials for longer periods of time. We are using the trach to suction PRN. He has been intubated in the past and he was smoking again at the time of the pulmonary/cardiac arrest so may lean toward maintaining the trach. (3) Dysphagia: Status: Chronic Code(s): R13.10 - Dysphagia, unspecified Plan: On thin liquids and regular textures at the time of DC from rehab. He is unable to feed himself so nursing is feeding him. (4) S/P percutaneous endoscopic gastrostomy (PEG) tube placement: Status: Inactive Code(s): Z93.1 - Gastrostomy status Plan: The PEG tube was embedded in the abdominal wall at presentation to acute rehab. It was replaced on 07/23/[address] David Jackson. Comment: 06/18/2024 at [facility]. (5) Anoxic-ischemic encephalopathy: Status: Chronic Code(s): G93.1 - Anoxic brain damage, not elsewhere classified; I67.82 - Cerebral ischemia Plan: Continue ST. (6) Mass of right parotid gland: Status: Acute Code(s): K11.8 - Other diseases of salivary glands Plan: Needs further W/U post DC. Recommend consult with ENT for bx. Comment: This was an incidental finding on MRI and will need further workup following discharge from rehab. (7) Asthma-COPD overlap syndrome: Status: Chronic Code(s): J44.9 - Chronic obstructive pulmonary disease, unspecified Comment: FEV1 67%. Stage II moderate COPD per Gold classification (8) Agitation: Status: Acute Code(s): R45.1 - Restlessness and agitation Plan: Suspect due to atypical depression with agitation and delusions due to prolonged hospitalization. Recommend he see psychiatry following DC from rehab. Agitation is much better with the addition of Seroquel to the drug regimen. He is now sleeping at night and has been much more cooperative. 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 Will continue and recommend Psych eval at SNF for med management. Comment: delusions. (10) COPD with acute exacerbation: Status: Acute Code(s): J44.1 - Chronic obstructive pulmonary disease with (acute) exacerbation Plan: Due to Klebsiella oxytoca pneumonia. Treated with intravenous steroids and transition to prednisone prior to transfer to SNF. Will receive a 7-day course of cefdinir 300 mg twice daily. Required supplemental oxygen for 24 to 48 hours while awake and an increased FiO2 on the humidified oxygen via trach while sleeping. At the time of discharge from rehab he is on room air again while awake and 28% FiO2 at discharge. (11) HCAP (healthcare-associated pneumonia): Status: Acute Code(s): J18.9 - Pneumonia, unspecified organism Plan: Vs bacterial bronchitis. CXR has some increased interstitial markings in the bases, L>R.......hard to tell if this is scarring, atelectasis or infiltrate. Recent WBC was elevated prior to steroids but, he has been AF. Sputum culture grew Klebsiella oxytoca which is sensitive to cefdinir. Plan on a total of 14 doses of cefdinir. (12) Pain of left great toe: Status: Acute Code(s): M79.675 - Pain in left toe(s) Plan: He is fixated on this. Thinks he has an ingrown toenail. No sign of infection. The nail has been debrided. I considered central neuropathic pain but, he is on Gabapentin 600 mg TID and no change in the complaint. There is no sign of infection. I can compress the toe and press down on the toenail and he does not grimace or withdraw. Could consider complex regional pain syndrome and referred to pain management however, I suspect the pain is secondary to atypical depression with delusions and behavioral disturbances. (13) Nicotine abuse: Status: Chronic Code(s): Z72.0 - Tobacco use Plan: Continue Wellbutrin. He started smoking again after a 3 month hiatus when his mother . Smoking cessation counselling was given while on rehab. Comment: [id number] smoking history Plan 1 Continue therapy 2. Plan transfer to [facility] on 08/10/24 3. Needs a podiatry consult and psych services at [facility] 4. will need to see a ENT physician for the R parotid mass to have a bx following DC from rehab. 5. Will need to follow up with pulmonary and cardiology for routine care going to forward. He has been seeing [facility] for cardiology and Debbi Schaffer SET UP AND CHARGER from [facility]. Allergies/Procedures Done in Hospital Allergies latex Allergy (Verified 05/04/24 17:15) Rash varenicline tartrate (From Chantix) Allergy (Verified 05/04/24 17:15) Hives aspirin Adverse Reaction (Verified 05/04/24 17:15) Upset Stomach Type of Care/Length of Stay Estimated LOS: Convalescent Care Less Than 30 days Type of Care Needed: Skilled Rehab Potential: Good Prognosis: Good Additional Orders/Day of Discharge H&P will serve as current which was dated: 07/17/24 Day of Discharge: 08/10/24 Dietary and Speech Recommendations Dietitian Recommendations/Changes: Continue cardiac diet with consistency/texture per SENIOR BILLING CONSULTANT recommendations. Via PEG Jevity 1.5- if pt consumes less than 50% of meal, provide 240ml bolus ~2 hours after the meal with 85ml flushes before and after feeding. Continue Ensure Plus High Protein 120mL TID at medpass and Mart BID with medpass aid in wound healing. Follow Up Care Please follow up with your Primary Care Physician in: Following DC from SNF Please Follow Up With: Sean Rhodes MD When: within 1-2 months Please Follow Up With: Debbi Schaffer NP, SET UP AND CHARGER-C When: in the next 1-2 months Please Follow Up With: Henry Martínez MD When: ENT as soon as possible to be evaluated for a R parotid mass. Discharge Plan Admission Admit Date/Time: 07/17/24 12:20 Primary Reason for Your Visit: Debility due to generalized weakness/anoxic encephalopathy post CP arrest Attending Provider: Chandni Machado Primary Care Provider: Alexey Mayberry Consulting Providers: David Jackson Discharge Orders/Prescriptions Prescriptions: New atorvastatin 20 mg Tablet 20 mg G-tube QHS Qty: 1 0RF cefdinir 300 mg Capsule 300 mg PO Q12 Qty: 4 0RF Rx Instructions: DC after the forth tab has been given bupropion HCl 150 mg Tablet Extended Release 24 Hr 150 mg PO DAILY Qty: 1 0RF gabapentin 600 mg Tablet 600 mg G-tube TIDCM Qty: 1 0RF famotidine 20 mg Tablet 20 mg G-tube BID Qty: 1 0RF ferrous sulfate 300 mg (60 mg iron)/5 mL Liquid 300 mg G-tube BREAKFAST Qty: 1 0RF Jevity 1.5 Jay 0.06 gram-1.5 kcal/mL Liquid 240 ml G-tube TID PRN PRN (Reason: FEEDING INSTRUCTIONS) Qty: 1 0RF Rx Instructions: PRN if he eats less than 50% of his meal magnesium hydroxide 400 mg/5 mL Suspension 30 ml G-tube X1 PRN (Reason: Constipation) Qty: 1 0RF Rx Instructions: As needed for constipation montelukast 10 mg Tablet 10 mg G-tube DAILY Qty: 1 0RF ketoconazole 2 % Cream 1 applic topical DAILY PRN (Reason: dryness) Qty: 1 0RF Protocol: *Topical Application Instructions APPLICATION INSTRUCTIONS: Apply to face Rx Instructions: As needed for recurrence of seborrheic dermatitis on his face Multi-William 9 mg iron/15 mL Liquid 15 ml G-tube DAILYCM Qty: 1 0RF quetiapine 25 mg Tablet 12.5 mg PO 0700 Qty: 1 0RF quetiapine 25 mg Tablet 25 mg PO 1999 Qty: 1 0RF sennosides-docusate sodium [Stimulant Laxative Plus] 8.6-50 mg Tablet 2 tab G-tube BID Qty: 1 0RF prednisone 10 mg tablet 10 mg PO BID Qty: 12 0RF Rx Instructions: 2 tabs BID Saturday and Saturday 1 tab BID Saturday and then discontinue Ensure Plus High Protein 0.08 gram-1.5 kcal/mL Liquid 120 ml PO TIDCM Qty: 1 0RF aspirin 81 mg tablet,chewable 81 mg PO DAILY Qty: 1 0RF oxycodone 5 mg tablet 5 mg PO Q6H PRN (Reason: pain) 7 Days Qty: 14 0RF oxycodone 5 mg Tablet 5 mg G-tube Q4H PRN PRN (Reason: Pain Score 4-10) 7 Days Qty: 14 0RF Continued clopidogrel 75 MG tablet 75 mg PO QHS Patient Comments: BLOOD THINNER polyethylene glycol 3350 17 gram/dose powder 17 g PO BID glucose [Dex4 Glucose] 4 gram tablet,chewable 4 g PO Q15M PRN (Reason: low blood sugar) Patient Comments: Sugar less than 70 mg/dL Rx Instructions: until symptoms of low blood sugar are controlled acetaminophen [Tylenol] 325 mg tablet 650 mg PO Q6H PRN (Reason: pain) ipratropium-albuterol 0.5 mg-3 mg(2.5 mg base)/3 mL solution for nebulization 3 ml inhalation BID albuterol sulfate 2.5 mg /3 mL (0.083 %) solution for nebulization 2.5 mg inhalation Q4H PRN (Reason: shortness of breath or wheezing) Qty: 180 11RF Discontinued omeprazole 20 mg capsule,delayed release(DR/EC) 40 mg PO BID Qty: 120 1RF gabapentin 600 mg Tablet 600 mg PO QHS PRN (Reason: Pain) montelukast [Singulair] 10 mg Tablet 10 mg PO QHS oxycodone 5 mg tablet 5 - 10 mg PO Q4H PRN (Reason: Pain) sennosides-docusate sodium [Senna with Docusate Sodium] 8.6-50 mg tablet 2 tab-cap PO BID lidocaine 4 % adhesive patch,medicated 1 patch topical DAILY famotidine [Pepcid] 20 mg tablet 20 mg PO BID enoxaparin [Lovenox] 40 mg/0.4 mL syringe 40 mg subcut DAILY No Action atorvastatin 20 mg Tablet 20 mg PO QHS Referrals / Follow Up: Nic Weems DO [Med Staff - Active Staff] - Shashank Hartman MD [Non-Staff -Ordering Privileges] - (office called and left a message to call back with appt. ) Alexey Mayberry MD [Primary Care Provider] - Disposition Disposition (needs filled in before D/C Order can be placed): [facility] (3) Dysphagia Qualifiers: Dysphagia type: unspecified Qualified Code(s): R13.10 - Dysphagia, unspecified
--- NOTE | 2024-08-07 12:04 | EKG12_ITS ---
Test Reason : check Blood Pressure : */* mmHG Vent. 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
[2024-08-07] MEDS: predniSONE 20 MG Tablet PO (13:02)
[2024-08-07] MEDS: Neuropathy Pain Cream Compound 60 CLICK TUBE TOPICAL ×2 (13:51→20:42)
--- NOTE | 2024-08-07 14:16 | DS.PCM_ITS ---
Providers Date of Admission: 07/17/24 Date of Discharge: 08/10/24 Primary Care Physician: Dr. Alexey Mayberry MD Consultations 07/22/24 11:04 Consult: Gastroenterology Routine Consulting Provider: David Jackson Reason for Consult: PEG tube dysfunction EMERGENT Consult: No MD Notified: Yes Date Notified: 07/22/24 Time Notified: 11:04 Method of Notification: Text Reason For Visit: Debility due to genralized weakness post ROSC Diagnosis Discharge Diagnosis (1) Physical debility: Status: Acute Code(s): R53.81 - Other malaise Plan: Due to cardiac arrest with ROSC, prolonged hospitalization. Transfer to SNF for additional therapy. (2) History of tracheostomy: Status: Chronic Code(s): Z98.890 - Other specified postprocedural states Plan: Tolerates PMV all day while awake and has not needed supplemental oxygen when awake. Started capping the trach for short periods of time on 08/06/24. Continue capping trials for longer periods of time. We are using the trach to suction PRN. He has been intubated in the past and he was smoking again at the time of the pulmonary/cardiac arrest so may lean toward maintaining the trach. (3) Dysphagia: Status: Chronic Code(s): R13.10 - Dysphagia, unspecified Qualifiers: Dysphagia type: unspecified Qualified Code(s): R13.10 - Dysphagia, unspecified Plan: On thin liquids and regular textures at the time of DC from rehab. He is unable to feed himself so nursing is feeding him. (4) S/P percutaneous endoscopic gastrostomy (PEG) tube placement: Status: Inactive Code(s): Z93.1 - Gastrostomy status Plan: The PEG tube was embedded in the abdominal wall at presentation to acute rehab. It was replaced on 07/23/[address] David Jackson. (5) Anoxic-ischemic encephalopathy: Status: Chronic Code(s): G93.1 - Anoxic brain damage, not elsewhere classified; I67.82 - Cerebral ischemia Plan: Continue ST. (6) Mass of right parotid gland: Status: Acute Code(s): K11.8 - Other diseases of salivary glands Plan: Needs further W/U post DC. Recommend consult with ENT for bx. (7) Asthma-COPD overlap syndrome: Status: Chronic Code(s): J44.9 - Chronic obstructive pulmonary disease, unspecified (8) Agitation: Status: Acute Code(s): R45.1 - Restlessness and agitation Plan: Suspect due to atypical depression with agitation and delusions due to prolonged hospitalization. Recommend he see psychiatry following DC from rehab. Agitation is much better with the addition of Seroquel to the drug regimen. He is now sleeping at night and has been much more cooperative. 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 Will continue and recommend Psych eval at SNF for med management. (10) COPD with acute exacerbation: Status: Acute Code(s): J44.1 - Chronic obstructive pulmonary disease with (acute) exacerbation Plan: Due to Klebsiella oxytoca pneumonia. Treated with intravenous steroids and transition to prednisone prior to transfer to SNF. Will receive a 7-day course of cefdinir 300 mg twice daily. Required supplemental oxygen for 24 to 48 hours while awake and an increased FiO2 on the humidified oxygen via trach while sleeping. At the time of discharge from rehab he is on room air again while awake and 28% FiO2 at discharge. (11) HCAP (healthcare-associated pneumonia): Status: Acute Code(s): J18.9 - Pneumonia, unspecified organism Plan: Vs bacterial bronchitis. CXR has some increased interstitial markings in the bases, L>R.......hard to tell if this is scarring, atelectasis or infiltrate. Recent WBC was elevated prior to steroids but, he has been AF. Sputum culture grew Klebsiella oxytoca which is sensitive to cefdinir. Plan on a total of 14 doses of cefdinir. (12) Pain of left great toe: Status: Acute Code(s): M79.675 - Pain in left toe(s) Plan: He is fixated on this. Thinks he has an ingrown toenail. No sign of infection. The nail has been debrided. I considered central neuropathic pain but, he is on Gabapentin 600 mg TID and no change in the complaint. There is no sign of infection. I can compress the toe and press down on the toenail and he does not grimace or withdraw. Could consider complex regional pain syndrome and referred to pain management however, I suspect the pain is secondary to atypical depression with delusions and behavioral disturbances. (13) Nicotine abuse: Status: Chronic Code(s): Z72.0 - Tobacco use Plan: Continue Wellbutrin. He started smoking again after a 3 month hiatus when his mother . Smoking cessation counselling was given while on rehab. Plan 1. Plan transfer to [facility] on 08/10/24 2. Needs a podiatry consult and psych services at [facility] 3. will need to see a ENT physician for the R parotid mass to have a bx following DC from rehab. 4. Will need to follow up with pulmonary and cardiology for routine care going to forward. He has been seeing [facility] for cardiology and Debbi Schaffer [employer] from [facility]. 5. PEG tube removal no recommended for 6 weeks following insertion due to increased risk for bleeding. 6. Needs follow up with ophthalmology for complaint of decreased vision since the cardiac arrest. No visual field cuts Medications at Discharge Home Medications clopidogrel 75 mg tablet 75 mg PO QHS blood thinner 06/16/13 atorvastatin 20 mg tablet 20 mg PO QHS CHOLESTEROL 12/12/21 albuterol sulfate 2.5 mg/3 mL (0.083 %) solution for nebulization 2.5 mg (3 mL) inhalation Q4H PRN shortness of breath or wheezing #180 mL 09/26/23 acetaminophen 325 mg tablet (Tylenol) 650 mg PO Q6H PRN pain 07/17/24 glucose 4 gram chewable tablet (Dex4 Glucose) 4 g PO Q15M PRN low blood sugar 07/17/24 ipratropium 0.5 mg-albuterol 3 mg (2.5 mg base)/3 mL nebulization soln 3 ml inhalation BID shortness of breath/wheeze 07/17/24 polyethylene glycol 3350 17 gram/dose oral powder 17 g PO BID Constipation 07/17/24 aspirin 81 mg chewable tablet 81 mg PO DAILY #1 TAB 08/07/24 atorvastatin 20 mg tablet 20 mg G-tube QHS #1 TAB 08/07/24 bupropion HCl 150 mg 24 hr tablet, extended release 150 mg PO DAILY #1 TAB 08/07/24 cefdinir 300 mg capsule 300 mg PO Q12 #4 caps 08/07/24 famotidine 20 mg tablet 20 mg G-tube BID #1 TAB 08/07/24 ferrous sulfate 300 mg (60 mg iron)/5 mL oral liquid 300 mg (5 mL) G-tube BREAKFAST #1 mL 08/07/24 food supplemt, lactose-reduced 0.08 gram-1.5 kcal/mL oral liquid (Ensure Plus High Protein) 120 ml PO TIDCM #1 mL 08/07/24 ketoconazole 2 % topical cream 1 applic topical DAILY PRN dryness #1 g 08/07/24 lactose-reduced food with fiber 0.06 gram-1.5 kcal/mL oral liquid (Jevity 1.5 Jay) 240 ml G-tube TID PRN PRN FEEDING INSTRUCTIONS #1 mL 08/07/24 magnesium hydroxide 400 mg/5 mL oral suspension 30 ml G-tube X1 PRN Constipation #1 mL 08/07/24 montelukast 10 mg tablet 10 mg G-tube DAILY #1 TAB 08/07/24 multivit and minerals-ferrous gluconate 9 mg iron/15 mL oral liquid (Multi-William) 15 ml G-tube DAILYCM #1 mL 08/07/24 oxycodone 5 mg tablet 5 mg G-tube Q4H PRN PRN Pain Score 4-10 7 days #14 tabs 08/07/24 oxycodone 5 mg tablet 5 mg PO Q6H PRN pain 7 days #14 tabs 08/07/24 prednisone 10 mg tablet 10 mg PO BID #12 tabs 08/07/24 quetiapine 25 mg tablet 12.5 mg (1/2 x 25 mg) PO 0700 #1 TAB 08/07/24 quetiapine 25 mg tablet 25 mg PO 2000 #1 TAB 08/07/24 sennosides 8.6 mg-docusate sodium 50 mg tablet (Stimulant Laxative Plus) 2 tab G-tube BID #1 TAB 08/07/24 gabapentin 400 mg capsule 800 mg (2 x 400 mg) PO TID #1 cap 08/10/24 Hospital Course Procedures EGD (07/23/2024. To replace PEG tube that was embedded in the abdominal wall.) and Modified Barium Swallow (07/24/2024) Summary of Care Provided Minutes Spent on Discharge: 42 Hospital Course: CHIO FILIPE, is a 63 YO M with a past medical history of tobacco dependence, CAD with history of PCI on , hypertension, hyperlipidemia, history of pulmonary embolus, GERD, obstructive sleep apnea, hiatal hernia, asthma/COPD overlap syndrome and chronic back pain who presented to Emergency department on 06/04/2024 from an outside hospital following acute cardiac arrest with ROSC. He had severe acute hypoxic/hypercapnic respiratory failure with agonal respirations when EMS picked him up from his home. He had been sick for a few days prior and had not seen his physician. On the way to the OSH in the ambulance he had cardiac arrest and had CPR with ROSC. Upon arrival to the emergency department he was noted to have multiple fractured ribs and a right-sided pneumothorax. He was intubated and started on mechanical ventilation. He was then transferred to Emergency department for admission. A large bore chest tube was placed. A respiratory culture ultimately grew Klebsiella oxytoca and the patient was treated with Zosyn. On 06/17/2024 an MRI of the brain revealed a possible small area of extra-axial hemorrhage and the patient was noted to have cervical spondylosis without significant canal stenosis at any level. He was noted to have cervical foraminal stenosis, to a severe degree on the left at C3-C4. An incidental finding on the MRI was a 12 mm T2 hyperintense ovoid lesion in the right parotid which may represent a malignancy. Will need to be further evaluated going forward. Neurosurgery recommended no acute surgical intervention at that time. 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 There were no seizures noted. He could not be weaned from the ventilator and so on 06/18/2024 he had a tracheostomy and PEG tube placed. He was then transferred to [facility] long-term acute care on 06/23/2024. He was weaned from the ventilator while at [facility]. He has become more alert and is following commands. He is very weak. He was transferred from [facility] to acute rehab at [facility] on 07/17/24 for 3 hours of therapy daily. At the time of admission to rehab the PEG feedings would not appropriately infuse with gravity drainage. A short time after admission nursing reported that they were no longer able to push the TF in with a large syringe without a lot of resistance. Dr. Jackson from was consulted and Jeannette was taken for EGD on 07/22/24. The PEG was embedded in the abd wall. The previous PEG was removed and a new PEG tube was placed. Post op there was some erythema and purulent DC around the PEG and there was a rim of necrosis around the area just caudal to the PEG. He was treated with Ancef/Keflex and the erythema completely resolved. The small rim of necrosis persisted and is healing. He had a modified barium swallow on 07/24/2024 and was started on a minced moist regular diet with thin liquids. At the time of DC from rehab he still requires nursing to feed due to severe weakness of the hands and the UE's but, he is now able to reach for and hold his can of soda and drink without assist. He is eating 75-100% of his diet and has excellent fluid intake. JEANNETTE has had persistent c/o L great toe pain and insists this is due to a ingrown toenail the nail has been debrided. There is no redness, no swelling and no DC from around the nail. There is no evidence of acute paronychia. Consult with podiatry was not available on acute rehab and we are recommending follow up with podiatry following transfer to SNF. He has a hx of chronic back pain and he has numbness in the LLE which he tells me is new and burning pain in both feet. He was taking Gabapentin 600 mg TID. He perseverates on this pain and when I examine/compress the toe/nail he does not grimace or withdraw in pain. After he was placed on Seroquel for atypical depression he is c/o Left L toe/leg pain much less but, he does still admit to pain/numbness in both feet and the LLE. It is possible that this pain is due to neuropathy. At the time of DC I increased to Gabapentin to 800 mg TID. Would consider follow up with pain management and possibly obtaining MRI of the LS spine. Jeannette was depressed and very tearful at admission to rehab. He was not sleeping well at night but, was drowsy during the day. He was started on Remeron 15 mg Q HS and he started to sleep well at night but, was still quite tearful at times. The Remeron dose was increased to 22.5 mg at HS and about 4-5 days later he became more agitated, had insomnia and developed many subjective somatic complaints. He was quite agitated with family and nursing. Remeron was discontinued but, agitation and insomnia persisted. He was fixated on Left toe pain and also on not being able to see. He was able to recognize staff as soon as they walked in his room and was watching TV with no complaints. He has no visual field cuts and the eyes are normal in appearance. The pupils are equal round reactive to light and accommodation and the extraocular muscles are intact. There is no conjunctival injection and no discharge from the eyes. I do not know at this time if he truly has vision loss OR if he has a visual apraxia. He should be seen by ophthalmology following discharge to residential for complete vision exam. He was started on Serouel for suspected atypical depression with behavioral disturbance. Agitation improved significantly and the somatic complaints are much less frequent. He is also taking Wellbutrin XL for depression and he is tolerating this without adverse side effects. I think he would benefit greatly from a psych eval. He is still tearful when we talk about transfer to [address] He was hoping to be discharged home but, at the time of discharge he is still requiring more assistance than family can provide. He has been very motivated to do therapy and never refuses. He is making progress with therapy. 5-6 days prior to DC he had an exacerbation of COPD. He has been AF but, WBC was mildly increased. CXR showed scarring/atelectasis in the bases. He developed wheezing which he did not have prior to then. He was started on Solumedrol and then tranistioned to Prednisone. He was also started on Cefdinir and a sputum culture was obtained. The GM stain only had 1+ WBC's and the culture grew Klebsiella oxytoca. He had been treated prior to admission to rehab for Klebsiella oxytoca. The bacteria was sensitive to cefdinir and the cefdinir was continued for a course of 7 days. At the time of discharge from rehab he is on prednisone 20 mg daily and a taper has been ordered. The Cefdinir will conclude after the last dose on 08/11/2021. Jeannette was transferred to [facility] on 08/10/24 for additional therapy to0 maximize his potential for participating in self care and going home at some time with assistance from his family. He will need follow up with: 1. ENT for the R parotid mass 2. Cardiology and pulmonology for routine care 3. Ophthalmology for vision exam due to complaint of decreased vision. 4. GI for PEG removal if indicated in 4-6 weeks. 5. pain management 6. Psychiatry for atypical depression He has been tolerating capping the trach for short periods of time and would gradually increase the time he is spending with it capped until he is able to tolerate 24 H with the cap on. would defer to pulmonary medicine do make the decision to decannulate. He has been intubated and on a vent in the past and I suspect this will not be the last time he has respiratory failure. He is wearing the PMV all day and we remove at HS and place him on humidified O2 via trach mask. The necrotic area around the PEG is healing and it is 1/2 the size it was 2 weeks ago. No sign of infection. Physical Exam Const alert and no apparent distress Constitutional Narrative: Sitting in the recliner at the bedside. Tolerating sitting in the chair much better and should be up in the chair with all meals. Very alert. Voice is projecting better but, still soft and needs to be reminded to speak up. PMV is in place. General Appearance: cooperative HEENT head/scalp atraumatic HEENT Narrative: Moist mucous membranes. No evidence of thrush. No buccal lesions. Pupils are equal round and reactive to light and accommodation. Extraocular muscles are intact. No scleral icterus, no conjunctival injection, no discharge from the eyes and no mattering of the eyelashes. Neck Neck Narrative: The trach site has no erythema and no discharge. Neck is supple. Chest Chest: symmetrical chest wall rise Resp Resp Narrative: Diminished throughout, no crackles, no wheezing. Not tachypneic. Not requiring any supplemental oxygen while awake today. Not tachypneic. Breathing is not labored. Cardio regular rate, regular rhythm, no murmurs, no rub and no gallops Cardio Narrative: No ectopy GI normal to inspection, nondistended, normoactive bowel sounds, soft to palpation and non-tender GI Narrative: No guarding with palpation. The necrotic area around the PEG is healing. It is 1/2 the size it was in late July. No erythema, no purulent discharge, no guarding with palpation around the PEG site. Narrative: Continent of urine. Denies dysuria. Urine retention and incontinence resolved. Extremity no calf tenderness Extremity Narrative: The feet are purple/red in coloration when they are dependent due to venous insufficiency. The feet are both warm to touch. Palpation of the L great toe and compression of the nail elicits no grimacing and no withdrawal of the foot. The is no redness around the nail and no DC. General Extremity: Negative for edema Skin no jaundice Rashes: no rashes Wound Narrative: The necrotic rim of tissue just caudal to the PEG is healing. No erythema and no DC. Neuro oriented x3 and CN's II-XII intact bilaterally Neuro Narrative: He has weak hand grasp bilaterally now. He is able to lift his left arm holding a pop can up to his mouth and drink without assistance now. Has cognitive deficit that the ST is working with. Swallowing well and is tolerating a regular texture diet with thin liquids well. He can dorsiflex and plantar flex the feet. Still not able to lift the legs off the bed but, he can move the legs from side to side somewhat now. No visual field cuts. No extinction. Psych denies hallucinations Psych Narrative: Less agitated with the addition of Seroquel to the drug regimen. Sleeping much better at night. Makes good eye contact with me when speaking. Seems more engaged than he was 1 week ago. Still tearful at times.......mostly when we talk about transfer to SNF and not home. Less agitated with his dtr. Eating 75-100% of his meals. Does not appear anxious. Medical Records Data Medical Nutrition Assessment Dietitian: Malnutrition Criteria Met Start: 07/17/24 15:56 Freq: Status: Active Protocol: Document 07/17/24 15:56 SB (Rec: 07/17/24 15:56 [id number]) Nutrition Malnutrition Evidence of Malnutrition Exists Yes Malnutrition (severe): Chronic Evidenced By Suboptimal Energy Intake ( Severe),Weight Loss (Severe) Clinical Problem Chronic Disease or Condition Related Malnutrition Etiology severe related to inadequate oral intake and dysphagia Signs/Symptoms as evidenced by 16.6% unintentional weight loss x 3 months and PO meeting <75% of estimated needs x 3 months. Status Active Problem Recommendation Dietitian Recommendations/Changes Continue Jevity 1.5 @ 50ml/hr, will order 150ml flushes every 4 hours providing 1800 calories, 76 grams of protein, 1812ml of fluid/day. Will adjust tube feeding, as needed. Will monitor weight, as available. Review and approved by Vivi Harvey RD, LD. Weight / BMI Weight Weight: 137 lb 2.04 oz Body Mass Index (BMI) 22.1 ABG / Lab / Microbiology Data 08/09/24 06:49 08/09/24 06:49 Microbiology: Microbiology 08/04/24 01:30 Sputum, Tracheal Aspirate Gram Stain - Final 08/04/24 01:30 Sputum, Tracheal Aspirate Respiratory Culture - Final Klebsiella oxytoca Corynebacterium striatum 08/05/24 11:10 Nasal Secretion SARS-CoV-2 Antigen (Rapid) - Final 08/05/24 02:00 Mucosa - Nasopharyngeal Respiratory Panel (PCR) - Final 07/23/24 09:10 Abs - Abdominal Gram Stain - Final 07/23/24 09:10 Abs - Abdominal Wound Culture - Final Bailee albicans 07/23/24 09:10 Abs - Abdominal Anaerobic Culture - Final No anaerobic bacteria isolated. 07/24/24 18:15 Stool Stool Occult Blood (BERTHA) - Final 07/17/24 15:00 Urine Catheter - Catheter Urine Culture - Final Culture exhibits no growth. D/C Instructions DC O2, CPAP, BIPAP Needs PSN CPAP & BiPAP: BiPAP & CPAP Settings per PSN Fraction of Inspired Oxygen ( 28 08/08/24 01:50 FIO2) Home Oxygen Instructions: Home O2 discharge Instructions Type of respiratory needs? Oxygen 08/07/24 12:13 DC Oxygen Instruction Oxygen frequency With Sleeping 08/07/24 12:13 Oxygen liters per minute when 6 (28% FIO@ via trach collar 08/07/24 14:16 sleeping ) Additional Home O2 Discharge instructions: No DC home with Oxygen: No Please Follow Up With: Sean Rhodes MD Meaningful Use Info Meaningful Use Meaningful Use Diagnoses (Choose all that apply): None applicable Ischemic Stroke Statin Dosing Therapy Reference: STATIN DOSE THERAPY REFERENCE: * Patients > 75 years receive moderate or high dose statin therapy. * Patients 75 years or YOUNGER should receive HIGH intensity statin dose unless contraindicated. You will be required to document reason for non-treatment if statin daily dose does not meet guidelines. HIGH DOSE STATIN THERAPY DAILY Atorvastatin > than or = to 40 mg Rosuvastatin > than or = to 20 mg Amlodipine + Atorvastatin > than or = to 2.5/40 mg Ezetimibe + Simvastatin 10/80 mg Simvastatin 80mg Discharge Plan Admission Admit Date/Time: 07/17/24 12:20 Primary Reason for Your Visit: Debility due to generalized weakness/anoxic encephalopathy post CP arrest Attending Provider: Chandni Machado Primary Care Provider: Alexey Mayberry Consulting Providers: Friend,David Discharge Orders/Prescriptions Prescriptions: New atorvastatin 20 mg Tablet 20 mg G-tube QHS Qty: 1 0RF cefdinir 300 mg Capsule 300 mg PO Q12 Qty: 4 0RF Rx Instructions: DC after the forth tab has been given bupropion HCl 150 mg Tablet Extended Release 24 Hr 150 mg PO DAILY Qty: 1 0RF famotidine 20 mg Tablet 20 mg G-tube BID Qty: 1 0RF ferrous sulfate 300 mg (60 mg iron)/5 mL Liquid 300 mg G-tube BREAKFAST Qty: 1 0RF Jevity 1.5 Jay 0.06 gram-1.5 kcal/mL Liquid 240 ml G-tube TID PRN PRN (Reason: FEEDING INSTRUCTIONS) Qty: 1 0RF Rx Instructions: PRN if he eats less than 50% of his meal magnesium hydroxide 400 mg/5 mL Suspension 30 ml G-tube X1 PRN (Reason: Constipation) Qty: 1 0RF Rx Instructions: As needed for constipation montelukast 10 mg Tablet 10 mg G-tube DAILY Qty: 1 0RF ketoconazole 2 % Cream 1 applic topical DAILY PRN (Reason: dryness) Qty: 1 0RF Protocol: *Topical Application Instructions APPLICATION INSTRUCTIONS: Apply to face Rx Instructions: As needed for recurrence of seborrheic dermatitis on his face Multi-William 9 mg iron/15 mL Liquid 15 ml G-tube DAILYCM Qty: 1 0RF quetiapine 25 mg Tablet 12.5 mg PO 0700 Qty: 1 0RF quetiapine 25 mg Tablet 25 mg PO 1999 Qty: 1 0RF sennosides-docusate sodium [Stimulant Laxative Plus] 8.6-50 mg Tablet 2 tab G-tube BID Qty: 1 0RF prednisone 10 mg tablet 10 mg PO BID Qty: 12 0RF Rx Instructions: 2 tabs BID Saturday and Saturday 1 tab BID Saturday and then discontinue Ensure Plus High Protein 0.08 gram-1.5 kcal/mL Liquid 120 ml PO TIDCM Qty: 1 0RF aspirin 81 mg tablet,chewable 81 mg PO DAILY Qty: 1 0RF oxycodone 5 mg tablet 5 mg PO Q6H PRN (Reason: pain) 7 Days Qty: 14 0RF oxycodone 5 mg Tablet 5 mg G-tube Q4H PRN PRN (Reason: Pain Score 4-10) 7 Days Qty: 14 0RF gabapentin 400 mg capsule 800 mg PO TID Qty: 1 0RF Continued clopidogrel 75 MG tablet 75 mg PO QHS Patient Comments: BLOOD THINNER polyethylene glycol 3350 17 gram/dose powder 17 g PO BID glucose [Dex4 Glucose] 4 gram tablet,chewable 4 g PO Q15M PRN (Reason: low blood sugar) Patient Comments: Sugar less than 70 mg/dL Rx Instructions: until symptoms of low blood sugar are controlled acetaminophen [Tylenol] 325 mg tablet 650 mg PO Q6H PRN (Reason: pain) ipratropium-albuterol 0.5 mg-3 mg(2.5 mg base)/3 mL solution for nebulization 3 ml inhalation BID albuterol sulfate 2.5 mg /3 mL (0.083 %) solution for nebulization 2.5 mg inhalation Q4H PRN (Reason: shortness of breath or wheezing) Qty: 180 11RF Discontinued omeprazole 20 mg capsule,delayed release(DR/EC) 40 mg PO BID Qty: 120 1RF gabapentin 600 mg Tablet 600 mg PO QHS PRN (Reason: Pain) montelukast [Singulair] 10 mg Tablet 10 mg PO QHS oxycodone 5 mg tablet 5 - 10 mg PO Q4H PRN (Reason: Pain) sennosides-docusate sodium [Senna with Docusate Sodium] 8.6-50 mg tablet 2 tab-cap PO BID lidocaine 4 % adhesive patch,medicated 1 patch topical DAILY famotidine [Pepcid] 20 mg tablet 20 mg PO BID enoxaparin [Lovenox] 40 mg/0.4 mL syringe 40 mg subcut DAILY No Action atorvastatin 20 mg Tablet 20 mg PO QHS Referrals / Follow Up: Godfrey Benton MD [Non-Staff -Ordering Privileges] - 09/24/24 11:00 am Alexey Mayberry MD [Primary Care Provider] - Debbi Schaffer NP, [employer] MACHINE OPERATOR-C [Med Staff - Adv Practice Prof] - 08/17/24 11:30 am Disposition Disposition (needs filled in before D/C Order can be placed): [facility]
[2024-08-07] MEDS: Atorvastatin Calcium 20 MG Tablet GT (20:42)
[2024-08-07] MEDS: guaiFENesin Dm 10 ML UDC PO (20:42)
[2024-08-07] MEDS: QUEtiapine 25 MG Tablet PO (20:43)
[2024-08-07] MEDS: Jevity 1.5. 1,000 ML Bottle 240 ML GT (20:43)
[2024-08-07] MEDS: 0.9% Saline Lock 10 ML Syringe IV (21:32)
[2024-08-07] MEDS: Mag Hydrox/Al Hydrox/Simeth 30 ML UDC 15 ML PO (21:34)
[2024-08-08] VITALS (8 sets, daily range): BP systolic 112–141; BP diastolic 66–74; PULSE 74–83; RESP 16–24; TEMP 36.5–36.8; O2SAT 95–98; BMI 22.1
[2024-08-08] MEDS: Albuterol 2.5 MG/3 ML VIAL.NEB. INHALATION ×2 (01:50→13:52)
[2024-08-08] MEDS: Ipratropium/Albuterol Sulfate 3 ML AMPUL.NEB INHALATION ×3 (04:16→20:30)
--- NOTE | 2024-08-08 04:49 | CPS ---
[0425] Pt. taken off cool aerosol per request. Passy-Rosie speaking valve in place, with pt. oxygenating appropriately on room air (95%).
[2024-08-08] MEDS: oxyCODONE 5 MG Tablet GT ×2 (04:52→08:58)
[2024-08-08] MEDS: Acetaminophen 650 MG/20 ML UDC GT ×3 (04:53→19:48)
[2024-08-08] MEDS: Neuropathy Pain Cream Compound 60 CLICK TUBE TOPICAL ×3 (05:19→19:49)
[2024-08-08] MEDS: Triamcinolone Acetonide 0.1% Cream 15 gm 1 APPLIC TOPICAL (05:20)
[2024-08-08] MEDS: QUEtiapine 25 MG Tablet 12.5 MG PO (06:47)
[2024-08-08] MEDS: Ensure Plus High Protein 120 ML LIQUID PO ×3 (08:53→17:08)
[2024-08-08] MEDS: Gabapentin 600 MG Tablet GT ×3 (08:53→17:08)
[2024-08-08] MEDS: Famotidine 20 MG Tablet GT ×2 (08:53→19:49)
[2024-08-08] MEDS: buPROPion (XL) 150 MG TABLET.XL PO (08:53)
[2024-08-08] MEDS: Montelukast 10 MG Tablet GT (08:53)
[2024-08-08] MEDS: Enoxaparin 40 MG/0.4 ML Syringe SC (08:53)
[2024-08-08] MEDS: Ferrous Sulfate 300 MG/5 ML UDC GT (08:53)
[2024-08-08] MEDS: Multivitamin/Minerals/Iron (9 mg/15 ml) Liquid GT (08:53)
[2024-08-08] MEDS: Juven (unflavored) Packet 1 PACKET PO ×2 (08:53→17:08)
[2024-08-08] MEDS: Cefdinir 300 MG Capsule PO ×2 (08:58→19:49)
[2024-08-08] MEDS: predniSONE 20 MG Tablet PO (13:36)
[2024-08-08] MEDS: Menthol/Lanolin/Calamine/Znox 113 GM Tube 1 APPLIC TOPICAL ×2 (13:48→19:50)
[2024-08-08] MEDS: guaiFENesin Dm 10 ML UDC PO (19:49)
[2024-08-08] MEDS: QUEtiapine 25 MG Tablet PO (19:49)
[2024-08-08] MEDS: Atorvastatin Calcium 20 MG Tablet GT (19:49)
[2024-08-08] MEDS: 0.9% Saline Lock 10 ML Syringe IV (19:52)
[2024-08-08] MEDS: Jevity 1.5. 1,000 ML Bottle 240 ML GT (21:48)
[2024-08-09] MEDS: oxyCODONE 5 MG Tablet GT ×2 (04:01→20:19)
[2024-08-09] MEDS: Acetaminophen 650 MG/20 ML UDC GT ×2 (04:03→16:30)
[2024-08-09 04:15] VITALS: BMI 22.1
[2024-08-09] MEDS: Neuropathy Pain Cream Compound 60 CLICK TUBE TOPICAL ×3 (04:56→20:17)
[2024-08-09] MEDS: Triamcinolone Acetonide 0.1% Cream 15 gm 1 APPLIC TOPICAL (05:11)
[2024-08-09 05:30] VITALS: BP 129/82; PULSE 73; RESP 18; TEMP 36.3; O2SAT 96
[2024-08-09 05:35] VITALS: PULSE 80; RESP 16
[2024-08-09] MEDS: Albuterol 2.5 MG/3 ML VIAL.NEB. INHALATION ×2 (05:35→16:45)
[2024-08-09] MEDS: QUEtiapine 25 MG Tablet 12.5 MG PO (06:37)
[2024-08-09 07:21] LABS: Hematocrit 37.3 % (40-54); Hemoglobin 11.5 g/dL (13.0-16.5)
[2024-08-09] MEDS: Juven (unflavored) Packet 1 PACKET PO ×2 (07:30→16:30)
[2024-08-09] MEDS: Gabapentin 600 MG Tablet GT ×3 (07:30→16:30)
[2024-08-09] MEDS: Multivitamin/Minerals/Iron (9 mg/15 ml) Liquid GT (07:30)
[2024-08-09] MEDS: Ferrous Sulfate 300 MG/5 ML UDC GT (07:30)
[2024-08-09] MEDS: Menthol/Lanolin/Calamine/Znox 113 GM Tube 1 APPLIC TOPICAL ×2 (07:31→20:20)
[2024-08-09 08:02] VITALS: PULSE 85; RESP 16; O2SAT 94
[2024-08-09] MEDS: Ipratropium/Albuterol Sulfate 3 ML AMPUL.NEB INHALATION ×2 (08:02→20:10)
[2024-08-09 08:14] LABS: Anion Gap 7 (5-15); BUN 21 mg/dL (7-18); BUN/Creat Ratio 44.3 RATIO (10-20); Calcium,Total 8.7 mg/dL (8.5-10.1); Chloride 105 mmol/L (98-107); Creatinine, Serum 0.47 mg/dL (0.70-1.30); EST Glomerular Filtration Rate 190 mL/min (>60); Est Glom Filt Rate - Afr Amer 230 mL/min (>60); Estimated Creatinine Clearance 143.37 ml/min; Glucose 89 mg/dL (74-106); Magnesium 2.1 mg/dL (1.6-2.6); Phosphorus 3.8 mg/dL (2.5-4.9); Potassium 3.4 mmol/L (3.5-5.1); Sodium Level 140 mmol/L (136-145)
[2024-08-09] MEDS: Enoxaparin 40 MG/0.4 ML Syringe SC (10:02)
[2024-08-09] MEDS: buPROPion (XL) 150 MG TABLET.XL PO (10:04)
[2024-08-09] MEDS: Cefdinir 300 MG Capsule PO ×2 (10:04→20:17)
[2024-08-09] MEDS: Montelukast 10 MG Tablet GT (10:04)
[2024-08-09] MEDS: Famotidine 20 MG Tablet GT ×2 (10:04→20:18)
[2024-08-09] MEDS: Ensure Plus High Protein 120 ML LIQUID PO ×2 (10:05→16:30)
[2024-08-09] MEDS: predniSONE 20 MG Tablet PO (13:12)
[2024-08-09 16:45] VITALS: PULSE 82; RESP 16
[2024-08-09 18:00] VITALS: BP 119/79; PULSE 83; RESP 16; TEMP 36.5; O2SAT 96
[2024-08-09 20:10] VITALS: PULSE 80; RESP 16; O2SAT 96
[2024-08-09] MEDS: Atorvastatin Calcium 20 MG Tablet GT (20:17)
[2024-08-09] MEDS: QUEtiapine 25 MG Tablet PO (20:17)
[2024-08-09] MEDS: guaiFENesin Dm 10 ML UDC PO (20:18)
[2024-08-09] MEDS: Jevity 1.5. 1,000 ML Bottle 240 ML GT (20:36)
[2024-08-09] MEDS: 0.9% Saline Lock 10 ML Syringe IV (20:36)
--- NOTE | 2024-08-09 20:55 | CPS ---
cool aero hooked up to air at 6 l/m
[2024-08-10] MEDS: oxyCODONE 5 MG Tablet GT ×2 (02:21→09:33)
[2024-08-10] MEDS: Albuterol 2.5 MG/3 ML VIAL.NEB. INHALATION ×2 (03:05→12:27)
[2024-08-10 03:06] VITALS: PULSE 80; RESP 16
[2024-08-10 05:00] VITALS: BP 115/80; PULSE 80; RESP 19; TEMP 36.3; O2SAT 95; BMI 22.1
[2024-08-10] MEDS: Neuropathy Pain Cream Compound 60 CLICK TUBE TOPICAL ×2 (05:28→13:12)
[2024-08-10] MEDS: Triamcinolone Acetonide 0.1% Cream 15 gm 1 APPLIC TOPICAL (05:29)
[2024-08-10] MEDS: QUEtiapine 25 MG Tablet 12.5 MG PO (06:41)
[2024-08-10] MEDS: Acetaminophen 650 MG/20 ML UDC GT (06:46)
[2024-08-10] MEDS: Ipratropium/Albuterol Sulfate 3 ML AMPUL.NEB INHALATION (07:05)
[2024-08-10 07:15] VITALS: PULSE 72; RESP 16; O2SAT 99
[2024-08-10] MEDS: Ferrous Sulfate 300 MG/5 ML UDC GT (07:32)
[2024-08-10] MEDS: Cefdinir 300 MG Capsule PO (07:32)
[2024-08-10] MEDS: buPROPion (XL) 150 MG TABLET.XL PO (07:33)
[2024-08-10] MEDS: Enoxaparin 40 MG/0.4 ML Syringe SC (07:33)
[2024-08-10] MEDS: Multivitamin/Minerals/Iron (9 mg/15 ml) Liquid GT (07:33)
[2024-08-10] MEDS: Juven (unflavored) Packet 1 PACKET PO (07:33)
[2024-08-10] MEDS: Famotidine 20 MG Tablet GT (07:33)
[2024-08-10] MEDS: Montelukast 10 MG Tablet GT (07:33)
[2024-08-10] MEDS: Ensure Plus High Protein 120 ML LIQUID PO ×2 (07:34→13:12)
[2024-08-10] MEDS: Menthol/Lanolin/Calamine/Znox 113 GM Tube 1 APPLIC TOPICAL (07:34)
[2024-08-10] MEDS: Gabapentin 600 MG Tablet GT ×2 (07:37→13:10)
[2024-08-10 12:27] VITALS: PULSE 82; RESP 18
[2024-08-10] MEDS: predniSONE 20 MG Tablet PO (13:10)
--- NOTE | 2024-08-10 13:35 | CASEMGMT ---
Social Work Farhan Sher notified this worker that pt's precert is approved. SW phoned Physician's to schedule picker for 1430. SW updated IDT. Spoke with pt and GF at bedside to update on approval and transport. Both appreciative. Plan: IN 08/10 as planned , precert approved CHEIKH Mckeon
--- NOTE | 2024-08-10 14:41 | NURSING ---
[facility] Reported called to [facility]
[2024-08-10 14:50] VITALS: BP 115/80; PULSE 80; RESP 19; TEMP 36.3; O2SAT 95
== END 2024-08-10 14:51 | disposition skilled nursing facility (03) | DRG 177 ==
PROVIDERS: Internal Medicine Gastroenterology; Admitting Provider Internal Medicine; PCP Internal Medicine; Referring Provider Internal Medicine; Visit Provider Internal Medicine
PROC: 0DJ08ZZ Inspection of Upper Intestinal Tract, Via Natural or Artificial Opening Endoscopic (ICD-10-PCS; CPT 43235; principal; 2024-07-22 12:25)
DX: J15.0 Pneumonia due to Klebsiella pneumoniae (principal); E43 Unspecified severe protein-calorie malnutrition; I62.9 Nontraumatic intracranial hemorrhage, unspecified; G93.1 Anoxic brain damage, not elsewhere classified; J47.0 Bronchiectasis with acute lower respiratory infection; F33.9 Major depressive disorder, recurrent, unspecified; K94.23 Gastrostomy malfunction; M96.A3 Multiple fractures of ribs associated with chest compression and cardiopulmonary resuscitation; J98.11 Atelectasis; L03.311 Cellulitis of abdominal wall; K94.22 Gastrostomy infection; I10 Essential (primary) hypertension; Z93.0 Tracheostomy status; M48.02 Spinal stenosis, cervical region; K11.8 Other diseases of salivary glands; G62.9 Polyneuropathy, unspecified; K21.9 Gastro-esophageal reflux disease without esophagitis; I25.10 Atherosclerotic heart disease of native coronary artery without angina pectoris; M47.812 Spondylosis without myelopathy or radiculopathy, cervical region; E78.5 Hyperlipidemia, unspecified; I25.5 Ischemic cardiomyopathy; F17.210 Nicotine dependence, cigarettes, uncomplicated; F17.220 Nicotine dependence, chewing tobacco, uncomplicated; J43.9 Emphysema, unspecified; L60.0 Ingrowing nail; H54.7 Unspecified visual loss; R13.10 Dysphagia, unspecified; S27.0XXD Traumatic pneumothorax, subsequent encounter; G89.29 Other chronic pain; G47.00 Insomnia, unspecified; Z79.01 Long term (current) use of anticoagulants; Y95 Nosocomial condition; Z95.5 Presence of coronary angioplasty implant and graft; Z79.899 Other long term (current) drug therapy; Z79.02 Long term (current) use of antithrombotics/antiplatelets; Z86.74 Personal history of sudden cardiac arrest; Y84.8 Other medical procedures as the cause of abnormal reaction of the patient, or of later complication, without mention of misadventure at the time of the procedure; R32 Unspecified urinary incontinence; Z68.20 Body mass index [BMI] 20.0-20.9, adult
CPT/HCPCS: 31720; 36415; 71045; 71046; 74230; 76705; 80048; 80053; 81001; 82274; 82728; 82962; 83540; 83550; 83735; 83880; 84100; 85014; 85018; 85025; 85027; 87070; 87075; 87077; 87086; 87186; 87205; 87633; 87641; 87811; 92507; 92522; 92526; 92610; 92611; 93005; 94640; 97110; 97112; 97116; 97129; 97130; 97163; 97165; 97530; 97535; 97802; 97803; J7050; A4216; J2405

== ENCOUNTER 2024-08-11 14:49 | Emergency (ER) | payer MEDICARE, MEDICAID, SELFPAY ==
[2024-08-11] VITALS (13 sets, daily range): BP systolic 109–126; BP diastolic 76–80; PULSE 70–115; RESP 14–32; TEMP 36.3–36.9; O2SAT 95–99; BMI 22.8
--- NOTE | 2024-08-11 15:08 | RAD_ITS ---
STUDY: X-RAY CHEST REASON FOR EXAM: Male, 63 years old. Dyspnea TECHNIQUE: Single AP portable view of the chest. COMPARISON: Comparison is made with prior study dated August 05, 2024. FINDINGS: A tracheostomy tube is seen with the tip at 6.7 cm proximal to the luli. EKG electrodes are seen. Stable mild scarring at the lung bases. There is no demonstrated pleural abnormality. Normal size heart. Normal mediastinum and winnie. Normal visualized pulmonary arteries. There is atherosclerotic calcification of the aortic arch with tortuosity. Normal visualized thoracic spine. Normal visualized ribs, clavicles, and shoulders. There is no demonstrated abnormality of the visualized soft tissue structures of the upper abdomen. RAD/Chest 1 View (Portable) IMPRESSION: Stable examination. No acute abnormality is seen. Electronically Signed: Gerardo Ruby MD at 15:29 EST ,
--- NOTE | 2024-08-11 15:08 | EKG12_ITS ---
Test Reason : SOB Blood Pressure : */* mmHG Vent. Rate : 105 BPM Atrial Rate : 105 BPM P-R Int : 130 ms QRS Dur : 80 ms QT Int : 344 ms P-R-T Axes : 47 -22 52 degrees QTcB Int : 454 ms Sinus tachycardia Inferior infarct (cited on or before 19-Mar-2023) Abnormal ECG Confirmed by LUZ RICE, SB ([id number]), purchasing expeditor THERESA OLIVEIRA ([id number]) on 08/12/2024 11:38:48 AM Referred By: Confirmed By: SB ESCOBAR MD
--- NOTE | 2024-08-11 15:09 | ED.VIS.DYS ---
HPI History of Present Illness Chief Complaint: Shortness of Breath Detail of Chief Complaint: Shortness of breath Informant: patient and family Narrative Narrative: Patient brought to the emergency department via EMS from home with complaint shortness of breath. Patient just arrived in a correction yesterday after being discharged from [facility] rehab. Patient had been in the hospital for several weeks due to COPD and cardiac arrest. During cardiac arrest apparently had a right lung punctured and required a chest tube. Upon discharge yesterday he had a trach that was placed while in the hospital but was not requiring supplemental oxygen. Patient denies fever. He denies chest pain. He does have history of coronary artery disease and prior history of PE. Per correction staff O2 sat in the 80s and they ordered a DuoNeb aerosol for him and placed him on oxygen. Patient does describe a slight cough. [facility] Medical History (Updated 08/11/24 @ 19:[address] Ryann Yu, DO) Wears dentures Wears glasses Arthritis Back pain History of hiatal hernia History of ulceration Gastric reflux Smoker Sleep apnea Hypertension History of pain when walking History of echocardiogram History of stress test Cardiology follow-up encounter History of heart attack GERD (gastroesophageal reflux disease) Dysphagia Hypersomnia Bronchiectasis Asthma-COPD overlap syndrome BPH (benign prostatic hyperplasia) Paroxysmal atrial tachycardia Paroxysmal ventricular tachycardia Premature ventricular contraction Presence of stent in coronary artery (~06/27/08) Atherosclerotic heart disease of [place]oi coronary artery without angina pectoris Ischemic cardiomyopathy HLD (hyperlipidemia) History of pulmonary embolism Nicotine abuse Home Medications ?Medication ?Instructions ?Recorded ?Last Taken ?Type clopidogrel 75 mg tablet 75 mg PO QHS blood thinner 06/16/13 11/27/22 History atorvastatin 20 mg tablet 20 mg PO QHS CHOLESTEROL 12/12/21 07/16/24 History albuterol sulfate 2.5 mg/3 mL 2.5 mg (3 mL) inhalation Q4H PRN 09/26/23 Unknown Rx (0.083 %) solution for nebulization shortness of breath or wheezing #180 mL acetaminophen 325 mg tablet 650 mg PO Q6H PRN pain 07/17/24 Unknown History (Tylenol) glucose 4 gram chewable tablet 4 g PO Q15M PRN low blood sugar 07/17/24 Unknown History (Dex4 Glucose) ipratropium 0.5 mg-albuterol 3 mg 3 ml inhalation BID shortness of 07/17/24 07/17/24 History (2.5 mg base)/3 mL nebulization breath/wheeze soln polyethylene glycol 3350 17 17 g PO BID Constipation 07/17/24 07/16/24 History gram/dose oral powder aspirin 81 mg chewable tablet 81 mg PO DAILY #1 TAB 08/07/24 Unknown Rx atorvastatin 20 mg tablet 20 mg G-tube QHS #1 TAB 08/07/24 Unknown Rx bupropion HCl 150 mg 24 hr tablet, 150 mg PO DAILY #1 TAB 08/07/24 Unknown Rx extended release cefdinir 300 mg capsule 300 mg PO Q12 #4 caps 08/07/24 Unknown Rx famotidine 20 mg tablet 20 mg G-tube BID #1 TAB 08/07/24 Unknown Rx ferrous sulfate 300 mg (60 mg 300 mg (5 mL) G-tube BREAKFAST #1 08/07/24 Unknown Rx iron)/5 mL oral liquid mL food supplemt, lactose-reduced 120 ml PO TIDCM #1 mL 08/07/24 Unknown Rx 0.08 gram-1.5 kcal/mL oral liquid (Ensure Plus High Protein) ketoconazole 2 % topical cream 1 applic topical DAILY PRN dryness 08/07/24 Unknown Rx #1 g lactose-reduced food with fiber 240 ml G-tube TID PRN PRN FEEDING 08/07/24 Unknown Rx 0.06 gram-1.5 kcal/mL oral liquid INSTRUCTIONS #1 mL (Jevity 1.5 Jay) magnesium hydroxide 400 mg/5 mL 30 ml G-tube X1 PRN Constipation 08/07/24 Unknown Rx oral suspension #1 mL montelukast 10 mg tablet 10 mg G-tube DAILY #1 TAB 08/07/24 Unknown Rx multivit and minerals-ferrous 15 ml G-tube DAILYCM #1 mL 08/07/24 Unknown Rx gluconate 9 mg iron/15 mL oral liquid (Multi-William) oxycodone 5 mg tablet 5 mg G-tube Q4H PRN PRN Pain Score 08/07/24 Unknown Rx 4-10 7 days #14 tabs oxycodone 5 mg tablet 5 mg PO Q6H PRN pain 7 days #14 08/07/24 Unknown Rx tabs prednisone 10 mg tablet 10 mg PO BID #12 tabs 08/07/24 Unknown Rx quetiapine 25 mg tablet 12.5 mg (1/2 x 25 mg) PO 0700 #1 08/07/24 Unknown Rx TAB quetiapine 25 mg tablet 25 mg PO 2000 #1 TAB 08/07/24 Unknown Rx sennosides 8.6 mg-docusate sodium 2 tab G-tube BID #1 TAB 08/07/24 Unknown Rx 50 mg tablet (Stimulant Laxative Plus) gabapentin 400 mg capsule 800 mg (2 x 400 mg) PO TID #1 cap 08/10/24 Unknown Rx apixaban 5 mg (74 tabs) tablets in See Rx Instructions .Route 08/11/24 Unknown Rx a dose pack (Eliquis DVT-PE Treat .COMPLEX #74 tabs 30D Start) Allergy/AdvReac Type Severity Reaction Status Date / Time latex Allergy Rash Verified 08/11/24 14:57 varenicline tartrate (From Allergy Hives Verified 08/11/24 14:57 Chantix) aspirin AdvReac Upset Verified 08/11/24 14:57 Stomach Family History Father , age 50 CAD (coronary artery disease) Heart disease Myocardial infarction Mother Diabetes Brother Hypertension Surgical History (Updated 08/11/24 @ 19:[address] Ryann Yu DO) History of tracheostomy Hx of carpal tunnel repair Hx of angioplasty History of cardiac catheterization History of coronary artery stent placement Hx of shoulder surgery Hx of sinus surgery Hx of nasal sinusotomy Hx of cystoscopy Hx of tonsillectomy History of thumb surgery Hx of right knee surgery Presence of coronary angioplasty implant and graft (~06/27/08) History of hernia repair Social History household members: significant other and children Smoking Status: Former smoker alcohol intake: never substance use type: does not use caffeine: Yes Type: coffee Number of servings: 3 what type of physical activity do you participate in: walking frequency: daily duration: 45-60 minutes/day seatbelt use: always do you feel safe at home: Yes ROS ROS ED Review of Systems ROS Unobtainable: other Constitutional Constitutional ED: Reports lethargy; Denies chills, fever(s), sweats or weight loss Eyes Eyes: Denies blurry vision, change in vision or diplopia ENT ENT ED: Denies rhinorrhea or sore throat Cardiovascular Cardiovascular: Denies chest pain, orthopnea or racing heartbeat Respiratory/Chest Respiratory/Chest: Reports cough, dyspnea and dyspnea on exertion; Denies orthopnea or sputum Gastrointestinal Gastrointestinal: Denies abdominal pain, diarrhea, nausea or vomiting Genitourinary Genitourinary ED: Denies dysuria, hematuria or urinary frequency Musculoskeletal Musculoskeletal: Denies arthralgias, back pain, myalgias or neck pain Integumentary Denies abscess, Abrasions or rash Neurologic Neurologic: Denies headache(s) or weakness Psychiatric Psychiatric: Denies anxiety, depression or suicidal thoughts Endocrine Endocrinology: Denies polydipsia, polyphagia or polyuria Hematologic/Lymphatic Hematologic/Lymphatic: Denies easy bleeding, easy bruising or lymphadenopathy Allergic/Immunologic Allergic/Immunologic ED: Denies mouth swelling, tongue swelling or urticaria EXAM Physical Exam Const Vital Signs: 08/11/24 14:51 08/11/24 14:56 08/11/24 14:59 Temperature 97.4 F L 97.4 F L Temperature Source Oral Oral Pulse Rate 114 H 112 H Respiratory Rate 32 H 20 H Respiratory Effort Short of Breath Respiratory Depth Deep Respiratory Pattern Tachypnea Blood Pressure 126/79 H Blood Pressure Mean 94 Pulse Ox 98 98 Oxygen Delivery Method Nasal Cannula Nasal Cannula Trach Collar Oxygen Flow Rate (L/min) 3.5 3.5 08/11/24 15:05 08/11/24 15:05 08/11/24 15:12 Temperature Temperature Source Pulse Rate 115 H Respiratory Rate 21 H Respiratory Effort Respiratory Depth Respiratory Pattern Tachypnea Blood Pressure Blood Pressure Mean Pulse Ox 99 95 Oxygen Delivery Method Nasal Cannula Trach Collar Oxygen Flow Rate (L/min) 2 3.5 08/11/24 15:55 08/11/24 16:00 08/11/24 16:16 Temperature 98.5 F 98.5 F Temperature Source Oral Oral Pulse Rate 97 95 94 Respiratory Rate 27 H 22 H 17 Respiratory Effort Respiratory Depth Respiratory Pattern Tachypnea Blood Pressure 115/76 121/80 H Blood Pressure Mean 89 93 Pulse Ox 98 97 Oxygen Delivery Method Trach Collar Trach Collar Oxygen Flow Rate (L/min) 08/11/24 16:50 08/11/24 17:00 08/11/24 18:00 Temperature 98 F 98 F Temperature Source Oral Oral Pulse Rate 94 95 95 Respiratory Rate 18 18 14 Respiratory Effort Respiratory Depth Respiratory Pattern Blood Pressure 109/80 110/77 112/77 Blood Pressure Mean 89 88 88 Pulse Ox 96 96 95 Oxygen Delivery Method Trach Collar Trach Collar Trach Collar Oxygen Flow Rate (L/min) Positive well nourished and well developed General Appearance ED: well developed and NAD HEENT Reports TM's clear and moist mucous membranes normocephalic and atraumatic; Negative for trauma or tenderness Tympanic Membrane ED: Yes TM's clear Eyes PERRL and EOMs intact bilaterally General Eye ED: Negative for pale conjunctiva or scleral icterus Neck no lymphadenopathy, supple and no JVD General: Negative for tenderness Chest Wall inspection of chest normal and palpation of chest normal Chest: Negative for tenderness Resp normal respiratory effort and clear to auscultation bilaterally Resp Narrative: Diminished breath sounds bilaterally slightly more diminished on the right upper lobe. No lock installer muscle use or retractions. Some faint expiratory wheezes bilaterally. Effort and Inspection: Negative for respiratory distress or pain with movement Auscultation: wheezes; Negative for rhonchi or diminished lung sounds Cardio regular rate, regular rhythm, S1 normal heart sound, S2 normal heart sound and no murmurs Peripheral Pulses: pulses 2+ throughout GI normal to inspection, nondistended, normoactive bowel sounds, soft to palpation, non-tender, non-distended and no masses Back/Spine no CVA tenderness and no thoracic nor lumbar tenderness Extremity normal to inspection General Extremety ED: Negative for edema General Extremity: Negative for edema Neuro oriented x3, CN's II-XII intact bilaterally, no sensory deficits noted and gait normal Sensorium / Orientation: awake, alert, oriented to person, oriented to place and oriented to time Motor Exam: strength 5/5 throughout and strength abnormal Psych mental status grossly normal Skin no rashes or lesions noted and no wounds MDM MDM MDM Narrative Medical decision making narrative: Patient sent to the emergency department for shortness of breath and hypoxemia. Patient with prior complicated history of cardiac arrest over 2 months ago that required a chest tube from CPR to his right lung. Patient was admitted to [facility] initially and then sent to our hospital for rehab and then sent to a correction yesterday. Patient has history of COPD. He is on prednisone currently. On arrival he received DuoNeb aerosol. IV line established. CBC with differential white count 17.6 with hemoglobin 13.7 and platelet count 377. Chemistries unremarkable. Troponin was normal at 7. BNP was 26. EKG obtained showed a sinus rhythm with rate of 78 bpm with no acute ST segment changes. D-dimer obtained was elevated 1.2. CT of the chest obtained showed right upper and lower subsegmental pulmonary PE that appear acute per radiology. Patient apparently had been taken off his Coumadin when it was discovered during his stay at [facility] on MRI that he had a small intracranial hemorrhage it was extra-axial and apparently was followed by neurosurgery and deemed that it did not require any type of intervention and patient had no surgery. At this point patient has new PEs and will require anticoagulation however had concern about his recent intracranial hemorrhage. I did discuss case with [facility] Neurosurgeon on-call Dr. White who was able to look up the MRI report and stated that the hemorrhage was small and relatively insignificant and he did not have any issue with us starting anticoagulation for the patient's pulmonary emboli. While in the emergency department his O2 sat improved and now he is satting 95% on room air. He looks well. He feels well. I feel he can be safely discharged back to correction with prescription for Eliquis. While in the department we also did suction his trach and really there was an no significant secretions noted. Lab Data Attestation: I reviewed the patient's lab results. Labs: Laboratory Results - last 24 hr 08/11/24 15:06 WBC 17.6 H RBC 4.73 Hgb 13.7 Hct 43.0 MCV 90.9 MCH 29.0 MCHC 31.9 L RDW Std Deviation 51.9 H RDW Coeff of [place] 15.5 H Plt Count 377 MPV 9.3 Immature Gran % (Auto) 1.300 H Neut % (Auto) 88.0 H Lymph % (Auto) 3.3 L [place] % (Auto) 7.1 Eos % (Auto) 0.1 Baso % (Auto) 0.2 Absolute Neuts (auto) 15.5 H Absolute Lymphs (auto) 0.58 L Nucleated RBC % 0 D-Dimer Quant (PE/DVT) 1.20 H* Sodium 138 Potassium 3.6 Chloride 104 Carbon Dioxide 28.0 Anion Gap 6 BUN 17 Creatinine 0.67 L Estim Creat Clear Calc 103.16 Est GFR (MDRD) Af Amer 154 Est GFR (MDRD) Non-Af 127 BUN/Creatinine Ratio 25.3 H Glucose 180 H Calcium 9.2 Troponin I High Sens 7 B-Natriuretic Peptide 26.1 Radiography Diagnostic Testing: Clinical Impression(s) from Imaging Studies Chest X-Ray 08/11/24 15:08 IMPRESSION: Stable examination. No acute abnormality is seen. Electronically Signed: Gerardo Ruby MD at 15:29 EST , Chest CTA 08/11/24 16:39 IMPRESSION: Study positive for pulmonary emboli in subsegmental branches to the right upper and lower lobes. Pulmonary emphysema. Small right pleural effusion. Circumferential thickening of the distal esophagus, GERD versus gastritis or other etiology of wall thickening. Consider endoscopic correlation. Electronically Signed: Bladimir Castañeda MD at 18:09 EST , ADDENDUM: 08/11/24 1828 IMPRESSION: Study positive for pulmonary emboli in subsegmental branches to the right upper and lower lobes. Pulmonary emphysema. Small right pleural effusion. Circumferential thickening of the distal esophagus, GERD versus gastritis or other etiology of wall thickening. Consider endoscopic correlation. N.B. : The above Results were Read Back by Bladimir Castañeda MD to Ryann Yu DO, and understanding confirmed on 08/11/2024 18:21:08 (ET). Electronically Signed: Bladimir Castañeda MD at 18:09 EST , 1 view chest x-ray obtained interpreted by myself as no evidence of infiltrate or pneumothorax or acute disease process. Radiology in agreement. EKG Initial EKG: Attestation: I personally reviewed and interpreted this EKG as follows: Comments: Sinus rhythm with rate of 78 bpm with no acute ST segment changes Discharge Plan Triage Chief Complaint: Shortness of Breath ED Provider: Ryann Yu Dx/Rx/DC Orders Clinical Impression: Dyspnea, Pulmonary emboli, COPD (chronic obstructive pulmonary disease), History of tracheostomy Instructions: Embolism Pulmonary Dc, COPD Controlled Breathing Dc, ED Dyspnea Prescriptions: Heriberto Dwain DVT-PE Treat 30D Start 5 mg (74 tabs) Tablets,Dose Pack See Rx Instructions .ROUTE .COMPLEX Qty: 74 0RF Rx Instructions: orally per package directions No Action clopidogrel 75 MG tablet 75 mg PO QHS Patient Comments: BLOOD THINNER atorvastatin 20 mg Tablet 20 mg PO QHS polyethylene glycol 3350 17 gram/dose powder 17 g PO BID glucose [Dex4 Glucose] 4 gram tablet,chewable 4 g PO Q15M PRN (Reason: low blood sugar) Patient Comments: Sugar less than 70 mg/dL Rx Instructions: until symptoms of low blood sugar are controlled acetaminophen [Tylenol] 325 mg tablet 650 mg PO Q6H PRN (Reason: pain) ipratropium-albuterol 0.5 mg-3 mg(2.5 mg base)/3 mL solution for nebulization 3 ml inhalation BID atorvastatin 20 mg Tablet 20 mg G-tube QHS Qty: 1 0RF cefdinir 300 mg Capsule 300 mg PO Q12 Qty: 4 0RF Rx Instructions: DC after the forth tab has been given bupropion HCl 150 mg Tablet Extended Release 24 Hr 150 mg PO DAILY Qty: 1 0RF famotidine 20 mg Tablet 20 mg G-tube BID Qty: 1 0RF ferrous sulfate 300 mg (60 mg iron)/5 mL Liquid 300 mg G-tube BREAKFAST Qty: 1 0RF Jevity 1.5 Jay 0.06 gram-1.5 kcal/mL Liquid 240 ml G-tube TID PRN PRN (Reason: FEEDING INSTRUCTIONS) Qty: 1 0RF Rx Instructions: PRN if he eats less than 50% of his meal magnesium hydroxide 400 mg/5 mL Suspension 30 ml G-tube X1 PRN (Reason: Constipation) Qty: 1 0RF Rx Instructions: As needed for constipation montelukast 10 mg Tablet 10 mg G-tube DAILY Qty: 1 0RF ketoconazole 2 % Cream 1 applic topical DAILY PRN (Reason: dryness) Qty: 1 0RF Protocol: *Topical Application Instructions APPLICATION INSTRUCTIONS: Apply to face Rx Instructions: As needed for recurrence of seborrheic dermatitis on his face Multi-William 9 mg iron/15 mL Liquid 15 ml G-tube DAILYCM Qty: 1 0RF quetiapine 25 mg Tablet 12.5 mg PO 0700 Qty: 1 0RF quetiapine 25 mg Tablet 25 mg PO 1999 Qty: 1 0RF sennosides-docusate sodium [Stimulant Laxative Plus] 8.6-50 mg Tablet 2 tab G-tube BID Qty: 1 0RF prednisone 10 mg tablet 10 mg PO BID Qty: 12 0RF Rx Instructions: 2 tabs BID Saturday and Saturday 1 tab BID Saturday and then discontinue Ensure Plus High Protein 0.08 gram-1.5 kcal/mL Liquid 120 ml PO TIDCM Qty: 1 0RF aspirin 81 mg tablet,chewable 81 mg PO DAILY Qty: 1 0RF oxycodone 5 mg tablet 5 mg PO Q6H PRN (Reason: pain) 7 Days Qty: 14 0RF oxycodone 5 mg Tablet 5 mg G-tube Q4H PRN PRN (Reason: Pain Score 4-10) 7 Days Qty: 14 0RF gabapentin 400 mg capsule 800 mg PO TID Qty: 1 0RF albuterol sulfate 2.5 mg /3 mL (0.083 %) solution for nebulization 2.5 mg inhalation Q4H PRN (Reason: shortness of breath or wheezing) Qty: 180 11RF Primary Care Provider: Alexey Mayberry Referrals: Alexey Mayberry MD [Primary Care Provider] - Activity Restrictions/Additional Instructions: Follow-up with primary care physician in 3 to 5 days Print Language: Mohawk Disposition Disposition: Home, Self Care
[2024-08-11] MEDS: MethylPREDNISolone 125 MG/2 ML Vial IV (15:15)
[2024-08-11 15:32] LABS: Absolute Lymphocyte Count 0.58 X10^3/uL (0.83-4.51); Absolute Neutrophil Count 15.5 X10^3/uL (2.0-7.7); Basophil# 0.04 X10^3/uL; Basophil% 0.2 % (0-1); Eosinophil# 0.02 X10^3/uL; Eosinophils% 0.1 % (0-5); Hemoglobin 13.7 g/dL (13.0-16.5); Lymphocyte # 0.58 X10^3/ul (0.83-4.51); Lymphocyte % 3.3 % (19-41); Mean Corp Hgb Conc 31.9 g/dL (32-36); Mean Corpuscular Volume 90.9 fL (80-94); Mean Platelet Vol. 9.3 fl (6.2-12.0); Monocyte# 1.25 X10^3/uL; Monocyte% 7.1 % (0-10); NRBC Flagged by Analyzer 0 % (0-5); Neutrophil # 15.49 X10^3/uL (2.7-7.7); POSITIVE DIFFERENTIAL YES; Platelet Count 377 K/mm3 (150-450); RBC Distribution Width CV 15.5 % (11.6-14.6); RBC Distribution Width SD 51.9 fl (35.1-43.9); Red Blood Count 4.73 M/mm3 (4.6-6.2); White Blood Count 17.6 K/mm3 (4.4-11.0)
[2024-08-11 15:47] LABS: Anion Gap 6 (5-15); BUN 17 mg/dL (7-18); BUN/Creat Ratio 25.3 RATIO (10-20); Calcium,Total 9.2 mg/dL (8.5-10.1); Chloride 104 mmol/L (98-107); Creatinine, Serum 0.67 mg/dL (0.70-1.30); EST Glomerular Filtration Rate 127 mL/min (>60); Est Glom Filt Rate - Afr Amer 154 mL/min (>60); Estimated Creatinine Clearance 103.16 ml/min; Glucose 180 mg/dL (74-106); Potassium 3.6 mmol/L (3.5-5.1); Sodium Level 138 mmol/L (136-145); Troponin-I HS 7 pg/mL (3.0-78.0)
[2024-08-11] MEDS: Albuterol 2.5 MG/3 ML VIAL.NEB. INHALATION (16:15)
--- NOTE | 2024-08-11 16:39 | CT_ITS ---
We are attempting to reach an attending provider to discuss findings. An addendum with communication details will be sent when the communication is complete. STUDY: CTA CHEST REASON FOR EXAM: Male, 63 years old. Dyspnea, elevated d-dimer RADIATION DOSAGE (If Supplied By Facility): CTDIvol = ( 14.97 ) mGy, DLP = ( 398.35 ) mGycm TECHNIQUE: The examination was performed with the intravenous administration of 100mL Isovue-370. Post-processing of the angiographic images was performed, with multiplanar reformation and 3D reconstruction. Individualized dose optimization techniques were used for this CT. COMPARISON: 06/03/2024 FINDINGS: Tracheostomy tube in place. Filling defects in subsegmental pulmonary artery branches to the right upper and lower lobes. Normal thoracic aorta and visualized great vessels. There is no demonstrated aortic dissection. Normal heart and pericardium. Normal mediastinum. Normal hilar regions. Patulous esophagus with internal contents. Circumferential thickening of the distal esophageal wall. Emphysematous changes without infiltrate or consolidation. Small right pleural effusion. Multiple bilateral healing rib fractures. No acute findings in the upper abdomen. Layering gallstones present. PEG tube tip in the gastric lumen. CT/CTA Chest W/WO Contrast IMPRESSION: Study positive for pulmonary emboli in subsegmental branches to the right upper and lower lobes. Pulmonary emphysema. Small right pleural effusion. Circumferential thickening of the distal esophagus, GERD versus gastritis or other etiology of wall thickening. Consider endoscopic correlation. Electronically Signed: Bladimir Castañeda MD at 18:09 EST ,
[2024-08-11 16:55] LABS: BNP,B-Type NATRIURETIC PEPTIDE 26.1 pg/mL (0-100)
[2024-08-11] MEDS: APIXABAN 5 MG TABLET 10 MG PO (19:12)
[2024-08-11 20:06] LABS: Mucous, Urine 0 SEEN /hpf (<or=2+); Red Blood Cells-Urine 0 SEEN /hpf (0-5); Squamous Epithelial Cells - UA 0 SEEN /hpf (0-5); White Blood Cells 0 SEEN /hpf (0-5)
[2024-08-11 20:07] LABS: Color, Urine Yellow (Yellow); Glucose, Dipstick Normal (Normal); Ketone-Dipstick Negative (Negative); Leukocyte Esterase-Dipstick Negative /ul (Negative); Nitrite-Dipstick Negative (Negative); Occult Blood-Urine 10 /ul (Negative); Protein-Dipstick Negative (Negative); Urine Bilirubin Dipstick Negative (Negative); Urine Clarity Sl. Cloudy (Clear); Urine Urobilinogen Normal (Normal)
[2024-08-11 20:40] LABS: Bacteria 1+ /hpf (None Seen)
[2024-08-11 20:41] LABS: Amorphous Sediment 2+ PHOS
== END 2024-08-11 20:36 | disposition home or self-care (01) ==
PROVIDERS: Emergency Provider Emergency Medicine; PCP Internal Medicine; Visit Provider Emergency Medicine
DX: I26.99 Other pulmonary embolism without acute cor pulmonale (principal); J44.9 Chronic obstructive pulmonary disease, unspecified; I25.5 Ischemic cardiomyopathy; I10 Essential (primary) hypertension; E78.5 Hyperlipidemia, unspecified; Z87.891 Personal history of nicotine dependence; I25.10 Atherosclerotic heart disease of native coronary artery without angina pectoris; Z95.5 Presence of coronary angioplasty implant and graft; Z86.711 Personal history of pulmonary embolism; I25.2 Old myocardial infarction; K21.9 Gastro-esophageal reflux disease without esophagitis; R05.9 Cough, unspecified; R06.02 Shortness of breath; Z86.74 Personal history of sudden cardiac arrest
CPT/HCPCS: 71045; 71275; 80048; 81001; 83880; 84484; 85025; 85379; 87631; 93005; 94640; 99285; Q9967; A4216

== ENCOUNTER 2024-08-16 01:51 | Emergency (ER) | payer MEDICARE, MEDICAID, SELFPAY ==
[2024-08-16] VITALS (23 sets, daily range): BP systolic 91–152; BP diastolic 60–110; PULSE 79–118; RESP 16–27; TEMP 36.7–36.9; O2SAT 89–99; BMI 22.6
--- NOTE | 2024-08-16 02:10 | RAD_ITS ---
STUDY: X-RAY CHEST REASON FOR EXAM: Male, 63 years old patient with cough. TECHNIQUE: PA and lateral views of the chest. COMPARISON: August 11, 2024. FINDINGS: Tracheostomy tube is in appropriate position. Cardiac monitoring leads are present. The lungs are expanded. There are prominent bronchovascular markings in both lungs. There are some interstitial thickening and peribronchial cuffing present more severe at the lung bases. There are also scattered lucencies particularly in the upper lobes suggesting emphysema. There appears to be small right-sided pleural effusion. Normal size heart. Normal mediastinum and winnie. Normal visualized pulmonary arteries. There is atherosclerotic calcification of the aortic arch with tortuosity. There is demineralization of the osseous structures. There appears to be old left clavicle fracture. There is no demonstrated abnormality of the visualized soft tissue structures of the upper abdomen. RAD/Chest PA and Lateral IMPRESSION: Findings suggest acute exacerbation of reactive airway disease and/or viral infection. Electronically Signed: Theodora Andrade MD at 3:55 EST ,
[2024-08-16 02:23] LABS: Absolute Lymphocyte Count 0.82 X10^3/uL (0.83-4.51); Absolute Neutrophil Count 12.6 X10^3/uL (2.0-7.7); Basophil# 0.05 X10^3/uL; Basophil% 0.3 % (0-1); Eosinophil# 0.13 X10^3/uL; Eosinophils% 0.9 % (0-5); Hematocrit 40.2 % (40-54); Hemoglobin 12.9 g/dL (13.0-16.5); Lymphocyte # 0.82 X10^3/ul (0.83-4.51); Lymphocyte % 5.5 % (19-41); Mean Corp Hgb Conc 32.1 g/dL (32-36); Mean Corpuscular Hgb 28.8 pg (27.0-32.0); Mean Corpuscular Volume 89.7 fL (80-94); Mean Platelet Vol. 9.7 fl (6.2-12.0); Monocyte# 1.14 X10^3/uL; Monocyte% 7.6 % (0-10); NRBC Flagged by Analyzer 0 % (0-5); Neutrophil # 12.61 X10^3/uL (2.7-7.7); Neutrophil % 84.6 % (47-70); Platelet Count 367 K/mm3 (150-450); RBC Distribution Width CV 14.9 % (11.6-14.6); RBC Distribution Width SD 49.6 fl (35.1-43.9); Red Blood Count 4.48 M/mm3 (4.6-6.2); White Blood Count 14.9 K/mm3 (4.4-11.0)
--- NOTE | 2024-08-16 02:35 | RAD_ITS ---
STUDY: X-RAY - SOFT TISSUE NECK REASON FOR EXAM: Male, 63 years old patient with cough. TECHNIQUE: AP and lateral view(s) of the neck were obtained. COMPARISON: None. FINDINGS: Normal visualized nasopharynx, oropharynx, hypopharynx. Normal epiglottis. Patient has a tracheostomy tube. Normal prevertebral soft tissue structures. The bones appear osteopenic. There is mild reversal normal cervical lordosis. There is mild anterolisthesis at C3-4. The soft tissue structures are unremarkable. RAD/Neck for Soft Tissue IMPRESSION: No obvious acute abnormality. Electronically Signed: Theodora Andrade MD at 3:52 EST ,
[2024-08-16 02:43] LABS: International Normalized Ratio 1.1; Prothrombin Time (Protime)PT. 14.5 SECONDS (11.7-14.9)
[2024-08-16 02:44] LABS: Partial Thromboplast Time 29.8 Seconds (24.1-36.2)
[2024-08-16 02:44] LABS: Anion Gap 9 (5-15); BUN 18 mg/dL (7-18); BUN/Creat Ratio 23.9 RATIO (10-20); Chloride 101 mmol/L (98-107); Creatinine, Serum 0.75 mg/dL (0.70-1.30); EST Glomerular Filtration Rate 111 mL/min (>60); Est Glom Filt Rate - Afr Amer 135 mL/min (>60); Estimated Creatinine Clearance 92.01 ml/min; Glucose 135 mg/dL (74-106); Potassium 3.9 mmol/L (3.5-5.1); Sodium Level 137 mmol/L (136-145)
[2024-08-16] MEDS: Ondansetron 4 MG/2 ML Vial IV (02:55)
[2024-08-16] MEDS: Morphine 4 MG/ML Syringe IV (04:03)
[2024-08-16] MEDS: LORazepam 2 MG/ML Syringe 1 MG IV (04:03)
[2024-08-16] MEDS: Ipratropium/Albuterol Sulfate 3 ML AMPUL.NEB INHALATION ×2 (04:08→11:35)
[2024-08-16] MEDS: Pantoprazole Sodium 80 MG in 0.9% Normal Saline (50mL Bag) 15 ML 420 MG IV BOLUS (04:40)
--- NOTE | 2024-08-16 04:51 | CT_ITS ---
STUDY: CT SOFT TISSUE NECK WITHOUT CONTRAST REASON FOR EXAM: Male, 63 years old patient with questionable esophageal mass. RADIATION DOSAGE (If Supplied By Facility): CTDIvol = ( 14.62 ) mGy, DLP = ( 419.92 ) mGycm TECHNIQUE: The patient was scanned in a multi-detector CT scanner. High resolution transaxial imaging was performed without the administration of intravenous contrast material. Sagittal and coronal images were reconstructed. Individualized dose optimization techniques were used for this CT. COMPARISON: None. FINDINGS: Normal bilateral parotid glands. Normal bilateral watch hairspring assembler spaces. Normal bilateral parapharyngeal spaces. Normal bilateral carotid spaces. Normal bilateral sublingual and submandibular glands and spaces. Normal visualized nasopharynx. Normal retropharyngeal space. Normal perivertebral space. Normal visualized bilateral faucial tonsils. The visualized tongue, tongue base and oropharynx are normal. Patient is partially edentulous. The visualized cervical lymph nodes (levels I-) are within normal size limits, and maintain normal morphology. There is no demonstrated solid or cystic mass lesion. Normal epiglottis, bilateral vallecula and hypopharynx. The pre-epiglottic and paraglottic adipose spaces are normal. Normal visualized bilateral piriform sinuses, aryepiglottic folds, vocal cords, and arytenoid-cricoid articulations. Patient has a tracheostomy tube which appears to be in appropriate position. There is abnormal thickening of the wall of the esophagus which measure up to 7.4 mm in thickness. Normal bilateral lobes of the thyroid gland. There are multiple lucencies of the lung apices consistent with emphysema. There is also some thickening of interlobular septa. There is opacification of all the ethmoid sinuses. There is opacification right frontal sinus. There is almost complete opacification of the maxillary sinuses by what may represent mucosal thickening and/or fluid. Sphenoid sinuses appear to be clear. Normal visualized cervical spine. CT/Soft Tissue Neck without Contr IMPRESSION: Abnormal thickening of the wall of the esophagus. Electronically Signed: Theodora Andrade MD at 6:38 EST ,
--- NOTE | 2024-08-16 04:51 | CT_ITS ---
INDICATION: GI bleed. EXAMINATION: CTA abdomen and pelvis. TECHNIQUE: Routine abdominal CT angiogram protocol was performed with IV contrast. MIP images provided. A radiation dose optimization technique was used for this scan. IV Contrast dosage and agent: 100 mL of IV [id number] Radiation dose DLP 677.7 mGy / cm. COMPARISON: None. FINDINGS: Lung bases: There is heterogeneous right lower lobe airspace disease suggesting possible pneumonia. There is mild dependent atelectasis of the left lung base. Liver: Normal. No bile ductal dilatation. Gallbladder: There are multiple small gallstones. Spleen: Normal. Adrenal gland: Normal. Kidneys: Normal. No hydronephrosis or stone formation. Pancreas:Normal. Bowel gas pattern: Nonobstructive. Appendix: Normal. Free air: None. Free fluid: None. Pelvis: Pelvic organs: No mass lesion noted. Bone survey: No aggressive bony lesions. There appear to be multiple bilateral rib fractures of varying ages, which appear to be old and others could be subacute. The bones appear osteopenic. There is spondylolysis of L5. There are Schmorl''s nodes at the endplates of several lower thoracic vertebral bodies.. Adenopathy: No significant pathologic adenopathy detected. Other: None. Vascular: The abdominal aorta has multifocal atherosclerotic calcification and tortuosity. There is also moderate atherosclerotic calcification of the internal iliac arteries. CT/CTA Abd/Pelvis W/WO Contrast IMPRESSION: 1. No CT evidence of acute intra-abdominal disease. 2. Cholelithiasis. 3. Right lower lobe airspace disease could represent pneumonia. Electronically Signed: Theodora Andrade MD at 6:56 EST Reading Location ID and State: [facility] / [place] , Service support ,
--- NOTE | 2024-08-16 07:05 | EX.ED.DYSGE1 ---
HPI History of Present Illness Chief Complaint: GI Bleed Informant: patient and EMS Narrative Narrative: Patient is a 63-year-old male with history of COPD as well as hypertension hyperlipidemia and ischemic encephalopathy requiring a trach and PEG. [facility] and reportedly was using a bag of snuff and he states he believes he swallowed it and it got stuck in his throat. He states this occurred on Saturday. He states that he has been able to breathe without difficulty but has had the persistent sensation that there is something stuck in his throat. Today he had bouts of nausea and vomiting and it looked dark in color. He states he is unsure if this is related to potential GI bleed or the snuff packet still being in his throat. He denies any blood or discoloration per rectum. However he is on Eliquis secondary to recent diagnosis of pulmonary emboli and with a history of blood thinner use and now potential GI bleed he was sent in for evaluation [facility] Medical History Foraminal stenosis of cervical region Cervical spondylosis History of mechanical ventilation Ribs, multiple fractures Respiratory arrest before cardiac arrest Community acquired pneumonia Cardiopulmonary arrest Wears dentures Wears glasses Arthritis Back pain History of hiatal hernia History of ulceration Gastric reflux Smoker Sleep apnea Hypertension History of pain when walking History of echocardiogram History of stress test Cardiology follow-up encounter History of heart attack GERD (gastroesophageal reflux disease) Dysphagia Hypersomnia Bronchiectasis Asthma-COPD overlap syndrome BPH (benign prostatic hyperplasia) Paroxysmal atrial tachycardia Paroxysmal ventricular tachycardia Premature ventricular contraction Presence of stent in coronary artery (~06/27/08) Atherosclerotic heart disease of [place] coronary artery without angina pectoris Ischemic cardiomyopathy HLD (hyperlipidemia) History of pulmonary embolism Nicotine abuse Home Medications ?Medication ?Instructions ?Recorded ?Last Taken ?Type atorvastatin 20 mg tablet 20 mg PO QHS CHOLESTEROL 12/12/21 07/16/24 History albuterol sulfate 2.5 mg/3 mL 2.5 mg (3 mL) inhalation Q4H PRN 09/26/23 Unknown Rx (0.083 %) solution for nebulization shortness of breath or wheezing #180 mL acetaminophen 325 mg tablet 650 mg PO Q6H PRN pain 07/17/24 Unknown History (Tylenol) ipratropium 0.5 mg-albuterol 3 mg 3 ml inhalation BID shortness of 07/17/24 07/17/24 History (2.5 mg base)/3 mL nebulization breath/wheeze soln atorvastatin 20 mg tablet 20 mg G-tube QHS #1 TAB 08/07/24 Unknown Rx famotidine 20 mg tablet 20 mg G-tube BID #1 TAB 08/07/24 Unknown Rx ferrous sulfate 300 mg (60 mg 300 mg (5 mL) G-tube BREAKFAST #1 08/07/24 Unknown Rx iron)/5 mL oral liquid mL lactose-reduced food with fiber 240 ml G-tube TID PRN PRN FEEDING 08/07/24 Unknown Rx 0.06 gram-1.5 kcal/mL oral liquid INSTRUCTIONS #1 mL (Jevity 1.5 Jay) magnesium hydroxide 400 mg/5 mL 30 ml G-tube X1 PRN Constipation 08/07/24 Unknown Rx oral suspension #1 mL montelukast 10 mg tablet 10 mg G-tube DAILY #1 TAB 08/07/24 Unknown Rx multivit and minerals-ferrous 15 ml G-tube DAILYCM #1 mL 08/07/24 Unknown Rx gluconate 9 mg iron/15 mL oral liquid (Multi-William) oxycodone 5 mg tablet 5 mg PO Q6H PRN pain 7 days #14 08/07/24 Unknown Rx tabs quetiapine 25 mg tablet 12.5 mg (1/2 x 25 mg) PO 0700 #1 08/07/24 Unknown Rx TAB quetiapine 25 mg tablet 25 mg PO 2000 #1 TAB 08/07/24 Unknown Rx sennosides 8.6 mg-docusate sodium 2 tab G-tube BID #1 TAB 08/07/24 Unknown Rx 50 mg tablet (Stimulant Laxative Plus) gabapentin 400 mg capsule 800 mg (2 x 400 mg) PO TID #1 cap 08/10/24 Unknown Rx bupropion HCl 150 mg 24 hr tablet, 150 mg PO BID 08/16/24 Unknown History extended release Allergy/AdvReac Type Severity Reaction Status Date / Time latex Allergy Rash Verified 08/16/24 01:52 varenicline tartrate (From Allergy Hives Verified 08/16/24 01:52 Chantix) aspirin AdvReac Upset Verified 08/16/24 01:52 Stomach Family History Father , age 50 CAD (coronary artery disease) Heart disease Myocardial infarction Mother Diabetes Brother Hypertension Surgical History S/P percutaneous endoscopic gastrostomy (PEG) tube placement History of chest tube placement History of tracheostomy Hx of carpal tunnel repair Hx of angioplasty History of cardiac catheterization History of coronary artery stent placement Hx of shoulder surgery Hx of sinus surgery Hx of nasal sinusotomy Hx of cystoscopy Hx of tonsillectomy History of thumb surgery Hx of right knee surgery Presence of coronary angioplasty implant and graft (~06/27/08) History of hernia repair Social History household members: significant other and children Smoking Status: Former smoker alcohol intake: never substance use type: does not use caffeine: Yes Type: coffee Number of servings: 3 what type of physical activity do you participate in: walking frequency: daily duration: 45-60 minutes/day seatbelt use: always do you feel safe at home: Yes ROS ROS ED Constitutional Constitutional ED: Denies chills or fever(s) Eyes Eyes: Denies change in vision ENT ENT ED: Reports sore throat Cardiovascular Cardiovascular: Denies chest pain Respiratory/Chest Respiratory/Chest: Denies cough or dyspnea Gastrointestinal Gastrointestinal: Denies abdominal pain, diarrhea, melena, nausea or vomiting Musculoskeletal Musculoskeletal: Denies myalgias Integumentary Denies rash Neurologic Neurologic: Denies headache(s) Hematologic/Lymphatic Hematologic/Lymphatic: Reports easy bleeding and easy bruising EXAM Physical Exam Const Vital Signs: 08/16/24 01:52 08/16/24 02:52 08/16/24 03:04 Temperature 98.4 F Temperature Source Axillary Pulse Rate 118 H 110 H 112 H Respiratory Rate 25 H 18 23 H Respiratory Pattern Blood Pressure 137/93 H 152/110 H Blood Pressure Mean 107 124 Pulse Ox 95 95 92 Oxygen Delivery Method Room Air Room Air 08/16/24 03:15 08/16/24 03:30 08/16/24 03:45 Temperature Temperature Source Pulse Rate 113 H 113 H 106 H Respiratory Rate 20 H 27 H 23 H Respiratory Pattern Blood Pressure 130/87 H 120/91 H 132/83 H Blood Pressure Mean 99 101 98 Pulse Ox 92 Oxygen Delivery Method 08/16/24 04:00 08/16/24 04:08 08/16/24 04:15 Temperature Temperature Source Pulse Rate 103 H 101 H 103 H Respiratory Rate 17 20 H 18 Respiratory Pattern Normal Blood Pressure 127/86 H 106/74 Blood Pressure Mean 99 85 Pulse Ox 89 Oxygen Delivery Method 08/16/24 04:30 08/16/24 04:45 08/16/24 05:00 Temperature Temperature Source Pulse Rate 98 97 Respiratory Rate 19 H 21 H Respiratory Pattern Blood Pressure 122/77 H 109/72 103/71 Blood Pressure Mean 91 85 81 Pulse Ox 92 93 Oxygen Delivery Method 08/16/24 05:15 08/16/24 05:20 08/16/24 05:30 Temperature Temperature Source Pulse Rate 98 96 Respiratory Rate 16 19 H Respiratory Pattern Blood Pressure 107/63 94/60 Blood Pressure Mean 77 71 Pulse Ox 94 92 Oxygen Delivery Method 08/16/24 05:45 08/16/24 06:00 08/16/24 07:00 Temperature Temperature Source Pulse Rate 94 92 88 Respiratory Rate 19 H 19 H 18 Respiratory Pattern Blood Pressure 91/61 100/61 106/68 Blood Pressure Mean 71 74 80 Pulse Ox 93 92 99 Oxygen Delivery Method Room Air Positive well developed, cachectic and unkempt General Appearance ED: unkempt, well developed and cachectic Nutritional Appearance: cachectic HEENT HEENT Narrative: No tongue or lip swelling noted No oral lesions no airway edema or compromise No active bleeding or dried blood noted in the posterior pharynx Eyes PERRL and EOMs intact bilaterally General Eye ED: Negative for pale conjunctiva or scleral icterus Neck supple Neck Narrative: Tracheostomy tube in place without blood or discharge or surrounding erythema from the stoma site No crepitance palpated Chest Wall palpation of chest normal Resp normal respiratory effort Resp Narrative: Breath sounds are diminished throughout with expiratory wheeze in the bilateral bases but no signs of respiratory distress Cardio regular rate and regular rhythm GI normal to inspection, nondistended, normoactive bowel sounds, non-tender, non-distended and no masses GI Narrative: PEG tube in place without soft tissue changes at the insertion site to suggest infection Abdomen is soft nontender nondistended with normal active bowel sounds. No voluntary guarding or rigidity or pulsatile mass Auscultation: normoactive bowel sounds Palpation: soft Narrative: A nonbleeding nonthrombosed external hemorrhoid is noted Rectal tone is normal Stool is dark in color consistent with iron use but is Hemoccult positive Extremity normal to inspection Neuro oriented x3 and CN's II-XII intact bilaterally Sensorium / Orientation: alert Psych Psych Narrative: Patient has a flat affect Appearance: unkempt Skin no rashes or lesions noted MDM MDM MDM Narrative Medical decision making narrative: Patient presented to the ER tachycardic but otherwise with stable vitals. He reported he had swallowed a bag of snuff and felt like he had been stuck in his throat since Saturday. The secretions he reports with his emesis could be related to this versus potential GI bleed as he is on Eliquis. In order to look for potential esophageal foreign body initial soft tissue x-ray was obtained. My interpretation questioned this present so therefore a CT was ordered. However the patient was given morphine and Ativan to relax the smooth esophageal muscle prior to the scan and he reported that it felt like it went down prior to the CT being obtained. His PEG tube was flushed and secretions were retracted. It was dark in color but he is on iron so was unsure if this was related to iron or potential blood. The gastric occult was positive and therefore rectal exam was performed which also showed dark stool which was most likely iron related but was still Hemoccult positive. Therefore a CTA was added of the abdomen and pelvis. This revealed no acute signs of bleeding. The patient's hemoglobin is stable his blood pressure is stable he does not have elevation to his BUN all going against a significant upper GI bleed. However he is on Eliquis secondary to pulmonary emboli. Therefore this case was discussed with Dr. Jackson/FLAQUITO and he recommends that patient is safe to be treated as an outpatient. He agrees that he is hemodynamically stable with normal hemoglobin and hematocrit and BUN and the fact he is on Eliquis would cause increased bleeding which should have presented over the 6 hours patient was in the ER. Therefore the patient will be [facility] with plans to see Dr. Jackson as an outpatient for potential EGD and/or colonoscopy. This plan of care was discussed with the patient and family and they are agreeable to it History & Record Review Discussion w/independent historian: Patient and Family Lab Data Attestation: I reviewed the patient's lab results. Labs: Laboratory Results - last 24 hr 08/16/24 08/16/24 01:55 02:28 WBC 14.9 H RBC 4.48 L Hgb 12.9 L Hct 40.2 MCV 89.7 MCH 28.8 MCHC 32.1 RDW Std Deviation 49.6 H RDW Coeff of [place] 14.9 H Plt Count 367 MPV 9.7 Immature Gran % (Auto) 1.100 H Neut % (Auto) 84.6 H Lymph % (Auto) 5.5 L [place] % (Auto) 7.6 Eos % (Auto) 0.9 Baso % (Auto) 0.3 Absolute Neuts (auto) 12.6 H Absolute Lymphs (auto) 0.82 L Nucleated RBC % 0 PT 14.5 INR 1.1 APTT 29.8 Sodium 137 Potassium 3.9 Chloride 101 Carbon Dioxide 27.0 Anion Gap 9 BUN 18 Creatinine 0.75 Estim Creat Clear Calc 92.01 Est GFR (MDRD) Af Amer 135 Est GFR (MDRD) Non-Af 111 BUN/Creatinine Ratio 23.9 H Glucose 135 H Calcium 10.0 Radiography Diagnostic Testing: Clinical Impression(s) from Imaging Studies Chest X-Ray 08/16/24 02:10 IMPRESSION: Findings suggest acute exacerbation of reactive airway disease and/or viral infection. Electronically Signed: Theodora Andrade MD at 3:55 EST , Soft Tissue Neck X-Ray 08/16/24 02:35 IMPRESSION: No obvious acute abnormality. Electronically Signed: Theodora Andrade MD at 3:52 EST Reading Location ID and State: [place] / [place] , Service support , Abdomen/Pelvis CTA 08/16/24 04:51 IMPRESSION: 1. No CT evidence of acute intra-abdominal disease. 2. Cholelithiasis. 3. Right lower lobe airspace disease could represent pneumonia. Electronically Signed: Theodora Andrade MD at 6:56 EST , Soft Tissue Neck CT 08/16/24 04:51 IMPRESSION: Abnormal thickening of the wall of the esophagus. Electronically Signed: Theodora Andrade MD at 6:38 EST , Soft tissue neck x-ray as interpreted by the emergency medicine physician reveals questionable foreign body within the esophagus without airway obstruction or free air Chest x-ray as interpreted by the emergency medicine physician reveals chronic findings without acute infiltrate pneumothorax or pleural effusion Discharge Plan Triage Chief Complaint: GI Bleed ED Provider: Darren Barnes Dx/Rx/DC Orders Clinical Impression: Nausea & vomiting, COPD (chronic obstructive pulmonary disease), Dysphagia, Esophagitis, Current use of long term care social worker anticoagulation Instructions: Esophagitis, ED Vomiting (Adult) Prescriptions: No Action atorvastatin 20 mg Tablet 20 mg PO QHS acetaminophen [Tylenol] 325 mg tablet 650 mg PO Q6H PRN (Reason: pain) ipratropium-albuterol 0.5 mg-3 mg(2.5 mg base)/3 mL solution for nebulization 3 ml inhalation BID atorvastatin 20 mg Tablet 20 mg G-tube QHS Qty: 1 0RF famotidine 20 mg Tablet 20 mg G-tube BID Qty: 1 0RF ferrous sulfate 300 mg (60 mg iron)/5 mL Liquid 300 mg G-tube BREAKFAST Qty: 1 0RF Jevity 1.5 Jay 0.06 gram-1.5 kcal/mL Liquid 240 ml G-tube TID PRN PRN (Reason: FEEDING INSTRUCTIONS) Qty: 1 0RF Rx Instructions: PRN if he eats less than 50% of his meal magnesium hydroxide 400 mg/5 mL Suspension 30 ml G-tube X1 PRN (Reason: Constipation) Qty: 1 0RF Rx Instructions: As needed for constipation montelukast 10 mg Tablet 10 mg G-tube DAILY Qty: 1 0RF Multi-William 9 mg iron/15 mL Liquid 15 ml G-tube DAILYCM Qty: 1 0RF quetiapine 25 mg Tablet 12.5 mg PO 0700 Qty: 1 0RF quetiapine 25 mg Tablet 25 mg PO 2000 Qty: 1 0RF sennosides-docusate sodium [Stimulant Laxative Plus] 8.6-50 mg Tablet 2 tab G-tube BID Qty: 1 0RF oxycodone 5 mg tablet 5 mg PO Q6H PRN (Reason: pain) 7 Days Qty: 14 0RF gabapentin 400 mg capsule 800 mg PO TID Qty: 1 0RF bupropion HCl 150 mg Tablet Extended Release 24 Hr 150 mg PO BID albuterol sulfate 2.5 mg /3 mL (0.083 %) solution for nebulization 2.5 mg inhalation Q4H PRN (Reason: shortness of breath or wheezing) Qty: 180 11RF Primary Care Provider: MAYE LAND Referrals: MAYE LAND [Other] Activity Restrictions/Additional Instructions: Please continue all of your medications as directed by your doctor. Follow-up with Dr. Jackson to discuss need for EGD and/or colonoscopy and return to the ER should you have any further concerns Print Language: Mauritian Disposition Disposition: Home, Self Care
--- NOTE | 2024-08-16 10:36 | ED.RN ---
3 attempts to call report back to akash simon. one aswer by hoop flaring machine operator but unable to get through to any nuyrsing or youth support worker.
== END 2024-08-16 11:48 | disposition home or self-care (01) ==
PROVIDERS: Emergency Provider Emergency Medicine; Visit Provider Emergency Medicine
DX: R11.2 Nausea with vomiting, unspecified (principal); Z93.0 Tracheostomy status; Z93.1 Gastrostomy status; J44.9 Chronic obstructive pulmonary disease, unspecified; I25.10 Atherosclerotic heart disease of native coronary artery without angina pectoris; I25.5 Ischemic cardiomyopathy; R13.10 Dysphagia, unspecified; I10 Essential (primary) hypertension; Z79.01 Long term (current) use of anticoagulants; E78.5 Hyperlipidemia, unspecified; K20.90 Esophagitis, unspecified without bleeding; Z87.891 Personal history of nicotine dependence; Z86.711 Personal history of pulmonary embolism; K64.4 Residual hemorrhoidal skin tags
CPT/HCPCS: 31720; 70360; 70490; 71046; 74174; 80048; 82271; 82274; 85025; 85610; 85730; 94640; 96374; 96375; 99285; Q9967; A4216; J2405

== ENCOUNTER 2024-09-11 11:21 | Inpatient (IN) | payer MEDICARE, MEDICAID, SELFPAY ==
[2024-09-11] VITALS (15 sets, daily range): BP systolic 91–116; BP diastolic 62–79; PULSE 85–106; RESP 16–24; TEMP 36.4–39.3; O2SAT 92–97; BMI 23.4; BMI 22.6
--- NOTE | 2024-09-11 11:34 | RAD_ITS ---
HISTORY: cough. TECHNIQUE: XR Chest 1 View. COMPARISON: 08/16/2024. FINDINGS: CARDIOMEDIASTINAL BORDERS: Cardiac silhouette within normal limits in size. Mediastinal contour unremarkable with tracheostomy tube tip again at the level of the clavicular heads. LUNGS: Increased linear and hazy bibasilar opacities. PLEURA: No pleural effusion or pneumothorax seen. OSSEOUS STRUCTURES: Chronic left clavicle fracture and multiple old left rib fractures. RAD/Chest 1 View (Portable) IMPRESSION: Increased bibasilar pneumonia or pneumonitis. Electronically Signed: Lesley Yan MD at 12:46 EST ,
--- NOTE | 2024-09-11 11:36 | EX.ED.DYSGE1 ---
HPI <RUBEN Hernandez - Last Filed: 09/11/24 14:31> History of Present Illness Chief Complaint: Fever Narrative Narrative: 63-year-old male with history of HTN, HLD, COPD, PE, cardiac arrest and ischemic encephalopathy requiring trach and PEG was sent in from [facility] after he developed a fever, cough, and myalgias last night. He denies chest pain or shortness of breath. He was given Tylenol at 10 AM for his fever. He states he no longer has to use the PEG tube and takes medications and food by mouth. He denies abdominal pain, vomiting, diarrhea, or urinary symptoms. [facility] <RUBEN Hernandez - Last Filed: 09/11/24 14:31> [facility] Medical History (Updated 09/11/24 @ 14:38 by Corrie Sanchez) Former smoker Myocardial infarct Foraminal stenosis of cervical region Cervical spondylosis History of mechanical ventilation Ribs, multiple fractures Respiratory arrest before cardiac arrest Community acquired pneumonia Cardiopulmonary arrest Wears dentures Wears glasses Arthritis Back pain History of hiatal hernia History of ulceration Gastric reflux Smoker Sleep apnea Hypertension History of pain when walking History of echocardiogram History of stress test Cardiology follow-up encounter History of heart attack GERD (gastroesophageal reflux disease) Dysphagia Hypersomnia Bronchiectasis Asthma-COPD overlap syndrome BPH (benign prostatic hyperplasia) Paroxysmal atrial tachycardia Paroxysmal ventricular tachycardia Premature ventricular contraction Presence of stent in coronary artery (~06/27/08) Atherosclerotic heart disease of [place] coronary artery without angina pectoris Ischemic cardiomyopathy HLD (hyperlipidemia) History of pulmonary embolism Nicotine abuse Home Medications ?Medication ?Instructions ?Recorded ?Last Taken ?Type atorvastatin 20 mg tablet 20 mg G-tube QHS #1 TAB 08/07/24 Unknown Rx famotidine 20 mg tablet 20 mg G-tube BID #1 TAB 08/07/24 Unknown Rx ferrous sulfate 300 mg (60 mg 300 mg (5 mL) G-tube BREAKFAST #1 08/07/24 Unknown Rx iron)/5 mL oral liquid mL magnesium hydroxide 400 mg/5 mL 30 ml G-tube X1 PRN Constipation 08/07/24 Unknown Rx oral suspension #1 mL montelukast 10 mg tablet 10 mg G-tube DAILY #1 TAB 08/07/24 Unknown Rx multivit and minerals-ferrous 15 ml G-tube DAILYCM #1 mL 08/07/24 Unknown Rx gluconate 9 mg iron/15 mL oral liquid (Multi-William) oxycodone 5 mg tablet 5 mg PO Q6H PRN pain 7 days #14 08/07/24 Unknown Rx tabs quetiapine 25 mg tablet 12.5 mg (1/2 x 25 mg) PO 0700 #1 08/07/24 Unknown Rx TAB quetiapine 25 mg tablet 25 mg PO 2000 #1 TAB 08/07/24 Unknown Rx sennosides 8.6 mg-docusate sodium 2 tab G-tube BID #1 TAB 08/07/24 Unknown Rx 50 mg tablet (Stimulant Laxative Plus) gabapentin 400 mg capsule 800 mg (2 x 400 mg) PO TID #1 cap 08/10/24 Unknown Rx bupropion HCl 150 mg 24 hr tablet, 150 mg PO BID 08/16/24 Unknown History extended release nutritional supplements 0.07 240 ml PO Q5H PRN low appetite 08/17/24 Unknown History gram-1.5 kcal/mL liquid for tube feed (Nutren 1.5) albuterol sulfate 2.5 mg/3 mL 2.5 mg inhalation Q4H PRN PRN 09/11/24 Unknown History (0.083 %) solution for nebulization wheezing budesonide 1 mg/2 mL suspension 0.5 mg inhalation QHS 09/11/24 Unknown History for nebulization furosemide 40 mg tablet (Lasix) 40 mg PO DAILY 09/11/24 Unknown History ipratropium 0.5 mg-albuterol 3 mg 3 ml inhalation Q6H PRN PRN dyspnea 09/11/24 Unknown History (2.5 mg base)/3 mL nebulization soln lorazepam 0.5 mg tablet (Ativan) 0.5 mg PO Q8H PRN anxiety 09/11/24 Unknown History Allergy/AdvReac Type Severity Reaction Status Date / Time latex Allergy Rash Verified 09/11/24 11:27 varenicline tartrate (From Allergy Hives Verified 09/11/24 11:27 Chantix) aspirin AdvReac Upset Verified 09/11/24 11:27 Stomach Family History Father , age 50 CAD (coronary artery disease) Heart disease Myocardial infarction Mother Diabetes Brother Hypertension Surgical History S/P percutaneous endoscopic gastrostomy (PEG) tube placement History of tracheostomy History of chest tube placement Hx of carpal tunnel repair Hx of angioplasty History of cardiac catheterization History of coronary artery stent placement Hx of shoulder surgery Hx of sinus surgery Hx of nasal sinusotomy Hx of cystoscopy Hx of tonsillectomy History of thumb surgery Hx of right knee surgery Presence of coronary angioplasty implant and graft (~06/27/08) History of hernia repair Social History household members: significant other and children Smoking Status: Former smoker alcohol intake: never substance use type: does not use caffeine: Yes Type: coffee Number of servings: 3 what type of physical activity do you participate in: walking frequency: daily duration: 45-60 minutes/day seatbelt use: always do you feel safe at home: Yes ROS <RUBEN Hernandez - Last Filed: 09/11/24 14:31> ROS ED ROS Narrative Constitutional: Positive for fever, chills, malaise. CVS: Negative for chest pain. Respiratory: Positive cough. GI: Negative for abdominal pain, nausea, vomiting, diarrhea. : Negative for dysuria. EXAM <RUBEN Hernandez - Last Filed: 09/11/24 14:31> Physical Exam Narrative Exam Narrative: CONST: Patient is lying in bed in no acute distress, appears chronically debilitated. EYES: Normal inspection. ENT: Normal inspection, dry mucous membranes. NECK: Normal inspection. RESP: No respiratory distress, expiratory wheezing throughout all lung noe. CVS: Regular rate and rhythm, no murmur, no gallop. ABD: Soft and nontender, no guarding or rebound, nondistended. PEG tube in place. SKIN: Color normal, no rash, warm, dry, intact. EXTREMITIES: Normal appearance, no pedal edema. NEURO: Alert and answering questions appropriately. PSYCH: Normal affect. Const Vital Signs: 09/11/24 11:23 09/11/24 11:26 09/11/24 11:30 Temperature 102.7 F H 102.7 F H Temperature Source Oral Oral Pulse Rate 106 H 106 H Respiratory Rate 24 H 24 H Respiratory Pattern Tachypnea Blood Pressure 108/72 108/72 Blood Pressure Mean 84 84 Pulse Ox 92 92 Oxygen Delivery Method Room Air Room Air 09/11/24 12:00 09/11/24 12:00 09/11/24 12:26 Temperature 97.8 F Temperature Source Temporal Pulse Rate 100 97 Respiratory Rate 23 H 20 H Respiratory Pattern Blood Pressure 105/69 Blood Pressure Mean 81 Pulse Ox 94 92 Oxygen Delivery Method Room Air Room Air 09/11/24 13:00 09/11/24 13:42 Temperature 98.4 F Temperature Source Temporal Pulse Rate 98 90 Respiratory Rate 21 H 20 H Respiratory Pattern Blood Pressure 107/74 99/66 Blood Pressure Mean 85 77 Pulse Ox 95 93 Oxygen Delivery Method Room Air Room Air <Jose Duff MD - Last Filed: 09/11/24 15:56> Physical Exam Const Vital Signs: 09/11/24 11:23 09/11/24 11:26 09/11/24 11:30 Temperature 102.7 F H 102.7 F H Temperature Source Oral Oral Pulse Rate 106 H 106 H Respiratory Rate 24 H 24 H Respiratory Pattern Tachypnea Blood Pressure 108/72 108/72 Blood Pressure Mean 84 84 Pulse Ox 92 92 Oxygen Delivery Method Room Air Room Air 09/11/24 12:00 09/11/24 12:00 09/11/24 12:26 Temperature 97.8 F Temperature Source Temporal Pulse Rate 100 97 Respiratory Rate 23 H 20 H Respiratory Pattern Blood Pressure 105/69 Blood Pressure Mean 81 Pulse Ox 94 92 Oxygen Delivery Method Room Air Room Air 09/11/24 13:00 09/11/24 13:42 Temperature 98.4 F Temperature Source Temporal Pulse Rate 98 90 Respiratory Rate 21 H 20 H Respiratory Pattern Blood Pressure 107/74 99/66 Blood Pressure Mean 85 77 Pulse Ox 95 93 Oxygen Delivery Method Room Air Room Air Sepsis Attestation <Jose Duff MD - Last Filed: 09/11/24 15:56> Sepsis Attestation: Agree w/Sepsis Date exam was performed: 09/11/24 Time exam was performed: 14:45 Possible Source of Sepsis: Pulmonary MDM <RUBEN Hernandez - Last Filed: 09/11/24 14:31> MDM MDM Narrative Medical decision making narrative: History gathered from: Patient, EMS Differential includes but not limited to viral URI, pneumonia, COPD exacerbation 64-year-old male with PMH of COPD, PE on Eliquis, history of trach and PEG presents from group home with fever, cough, and myalgias that started last night. He does not have the speaking valve on his trach so he is difficult to hear because he is whispering but he is fully alert and oriented. He has dry mucous membranes and faint expiratory wheezing so I ordered a DuoNeb. Labs show WBC of 14.8, hypokalemia at 3.1, and otherwise are unremarkable. CXR shows increased bibasilar pneumonia/pneumonitis and respiratory viral swab is negative for COVID/flu/influenza. He was given p.o. potassium and IV doxycycline and Rocephin for pneumonia. After the Tylenol he received at his group home his fever has trended down. He is much weaker than usual and would benefit for admission for continued treatment of COPD and IV antibiotics for pneumonia. I discussed the case with the hospitalist for admission. Lab Data Attestation: I reviewed the patient's lab results. Labs: Laboratory Results - last 24 hr 09/11/24 09/11/24 09/11/24 11:40 11:54 12:40 WBC 14.8 H RBC 4.57 L Hgb 13.0 Hct 40.1 MCV 87.7 MCH 28.4 MCHC 32.4 RDW Std Deviation 47.8 H RDW Coeff of [place] 14.8 H Plt Count 305 MPV 9.4 Immature Gran % (Auto) 1.200 H Neut % (Auto) 80.6 H Lymph % (Auto) 4.7 L [place] % (Auto) 7.4 Eos % (Auto) 5.8 H Baso % (Auto) 0.3 Absolute Neuts (auto) 11.9 H Absolute Lymphs (auto) 0.69 L Nucleated RBC % 0 PT 18.9 H INR 1.5 Sodium 138 Potassium 3.1 L Chloride 104 Carbon Dioxide 27.0 Anion Gap 6 BUN 12 Creatinine 0.81 Estim Creat Clear Calc 84.24 Est GFR (MDRD) Af Amer 125 Est GFR (MDRD) Non-Af 103 BUN/Creatinine Ratio 14.9 Glucose 119 H Lactic Acid 1.6 Calcium 8.6 Total Bilirubin 0.30 AST 10 L ALT 11 L Alkaline Phosphatase 148 H Total Protein 6.2 L Albumin 2.9 L Globulin 3.3 Albumin/Globulin Ratio 0.9 Urine Color Yellow Urine Clarity Clear Urine pH 6.0 Ur Specific [place] 1.020 Urine Protein Negative Urine Glucose (UA) Normal Urine Ketones Negative Urine Occult Blood Negative Urine Nitrite Negative Urine Bilirubin Negative Urine Urobilinogen Normal Ur Leukocyte Esterase Negative Urine RBC 0 SEEN Urine WBC 0 SEEN Ur Squamous Epith Cells 0 SEEN Urine Bacteria 0 SEEN Urine Mucus 0 SEEN Radiography Diagnostic Testing: Clinical Impression(s) from Imaging Studies Chest X-Ray 09/11/24 11:34 IMPRESSION: Increased bibasilar pneumonia or pneumonitis. Electronically Signed: Lesley Yan MD at 12:46 EST , ED attending interpretation of 1 view chest x-ray shows normal heart size, right lower lobe patchiness. Radiology read as bibasilar infiltrates. <Jose Duff MD - Last Filed: 09/11/24 15:56> MDM History & Record Review Discussion w/independent historian: Patient Lab Data Labs: Laboratory Results - last 24 hr 09/11/24 09/11/24 09/11/24 11:40 11:54 12:40 WBC 14.8 H RBC 4.57 L Hgb 13.0 Hct 40.1 MCV 87.7 MCH 28.4 MCHC 32.4 RDW Std Deviation 47.8 H RDW Coeff of [place] 14.8 H Plt Count 305 MPV 9.4 Immature Gran % (Auto) 1.200 H Neut % (Auto) 80.6 H Lymph % (Auto) 4.7 L [place] % (Auto) 7.4 Eos % (Auto) 5.8 H Baso % (Auto) 0.3 Absolute Neuts (auto) 11.9 H Absolute Lymphs (auto) 0.69 L Nucleated RBC % 0 PT 18.9 H INR 1.5 Sodium 138 Potassium 3.1 L Chloride 104 Carbon Dioxide 27.0 Anion Gap 6 BUN 12 Creatinine 0.81 Estim Creat Clear Calc 84.24 Est GFR (MDRD) Af Amer 125 Est GFR (MDRD) Non-Af 103 BUN/Creatinine Ratio 14.9 Glucose 119 H Lactic Acid 1.6 Calcium 8.6 Total Bilirubin 0.30 AST 10 L ALT 11 L Alkaline Phosphatase 148 H Total Protein 6.2 L Albumin 2.9 L Globulin 3.3 Albumin/Globulin Ratio 0.9 Urine Color Yellow Urine Clarity Clear Urine pH 6.0 Ur Specific [place] 1.020 Urine Protein Negative Urine Glucose (UA) Normal Urine Ketones Negative Urine Occult Blood Negative Urine Nitrite Negative Urine Bilirubin Negative Urine Urobilinogen Normal Ur Leukocyte Esterase Negative Urine RBC 0 SEEN Urine WBC 0 SEEN Ur Squamous Epith Cells 0 SEEN Urine Bacteria 0 SEEN Urine Mucus 0 SEEN Radiography Diagnostic Testing: Clinical Impression(s) from Imaging Studies Chest X-Ray 09/11/24 11:34 IMPRESSION: Increased bibasilar pneumonia or pneumonitis. Electronically Signed: Lesley Yan MD at 12:46 EST Reading Location ID and State: [facility] / [place] Tel , Service support , Management Discussion w/another healthcare provider: Hospitalist Treatment and Re-Evaluation :: Dr. Duff: I have personally performed a face to face assessment of the patient and have reviewed the ARAM Note. I performed a substantive portion of the visit including all aspects of the following. My glass findings include: History is history of trach and PEG, status postcardiac arrest with successful resuscitation. Sent in because of fever at residential facility today. Exam is positive for fever. Coarse breath sounds bilaterally. No distress. Cardiovascular examination reveals tachycardia, abdomen soft and nontender. Trace pedal edema bilaterally. Medical Decision Making: Given fever and tachycardia, suspect sepsis. Check labs. Check chest x-ray. Chest x-ray interpreted by myself independently shows bibasilar pneumonia. I reviewed the radiology report which confirms my independent interpretation. Check lactic acid. Discussed with hospitalist. Antibiotics. Admit. Other additions or changes: [None] Discharge Plan Dx/Rx/DC Orders Clinical Impression: Pneumonia Disposition Disposition: Acute Care Hospital [facility] Discharge Date/Time: 09/11/24 15:37
[2024-09-11 11:54] LABS: Absolute Lymphocyte Count 0.69 X10^3/uL (0.83-4.51); Absolute Neutrophil Count 11.9 X10^3/uL (2.0-7.7); Basophil# 0.05 X10^3/uL; Basophil% 0.3 % (0-1); Eosinophil# 0.86 X10^3/uL; Eosinophils% 5.8 % (0-5); Hematocrit 40.1 % (40-54); Lymphocyte # 0.69 X10^3/ul (0.83-4.51); Lymphocyte % 4.7 % (19-41); Mean Corp Hgb Conc 32.4 g/dL (32-36); Mean Corpuscular Hgb 28.4 pg (27.0-32.0); Mean Corpuscular Volume 87.7 fL (80-94); Mean Platelet Vol. 9.4 fl (6.2-12.0); Monocyte% 7.4 % (0-10); NRBC Flagged by Analyzer 0 % (0-5); Neutrophil % 80.6 % (47-70); Platelet Count 305 K/mm3 (150-450); RBC Distribution Width CV 14.8 % (11.6-14.6); RBC Distribution Width SD 47.8 fl (35.1-43.9); Red Blood Count 4.57 M/mm3 (4.6-6.2); White Blood Count 14.8 K/mm3 (4.4-11.0)
[2024-09-11] MEDS: Ipratropium/Albuterol Sulfate 3 ML AMPUL.NEB INHALATION (11:59)
[2024-09-11 12:08] LABS: ALB/GLOB Ratio 0.9 RATIO (0.9-2.4); AST(SGOT) 10 U/L (15-37); Alanine Aminotransfer ALT/SGPT 11 U/L (16-61); Albumin, Serum 2.9 g/dL (3.2-5.0); Alkaline Phosphatase 148 U/L (45-117); Anion Gap 6 (5-15); BUN 12 mg/dL (7-18); BUN/Creat Ratio 14.9 RATIO (10-20); Calcium,Total 8.6 mg/dL (8.5-10.1); Chloride 104 mmol/L (98-107); Creatinine, Serum 0.81 mg/dL (0.70-1.30); EST Glomerular Filtration Rate 103 mL/min (>60); Est Glom Filt Rate - Afr Amer 125 mL/min (>60); Estimated Creatinine Clearance 84.24 ml/min; Globulin 3.3 g/dL (2.2-4.2); Glucose 119 mg/dL (74-106); Potassium 3.1 mmol/L (3.5-5.1); Protein, Total 6.2 g/dL (6.4-8.2); Sodium Level 138 mmol/L (136-145)
[2024-09-11] MEDS: 0.9% Normal Saline (1000mL) 1,000 ML 1000 ML IV (12:20)
[2024-09-11 12:26] LABS: International Normalized Ratio 1.5; Prothrombin Time (Protime)PT. 18.9 SECONDS (11.7-14.9)
[2024-09-11 12:36] LABS: Lactic Acid 1.6 mmol/L (0.4-1.9)
[2024-09-11 12:57] LABS: Bacteria 0 SEEN /hpf (None Seen); Mucous, Urine 0 SEEN /hpf (<or=2+); Red Blood Cells-Urine 0 SEEN /hpf (0-5); Squamous Epithelial Cells - UA 0 SEEN /hpf (0-5); White Blood Cells 0 SEEN /hpf (0-5)
[2024-09-11 12:58] LABS: Color, Urine Yellow (Yellow); Glucose, Dipstick Normal (Normal); Ketone-Dipstick Negative (Negative); Leukocyte Esterase-Dipstick Negative /ul (Negative); Nitrite-Dipstick Negative (Negative); Occult Blood-Urine Negative /ul (Negative); Protein-Dipstick Negative (Negative); Urine Bilirubin Dipstick Negative (Negative); Urine Clarity Clear (Clear); Urine Urobilinogen Normal (Normal)
--- NOTE | 2024-09-11 13:00 | ED.RN ---
called lab to verified both sets blood cx are in lab
--- NOTE | 2024-09-11 13:43 | HP.PCM.HOS_ITS ---
HPI - General General Date of Admission: 09/11/24 Date of Service: 09/11/24 Chief Complaint: Fever, cough. HPI Narrative The patient is a 64 y/o M w/ PMHx: Asthma/COPD/bronchiectasis with chronic hypoxic respiratory failure using nasal cannula nightly with allergic rhinitis, Hx VTE with multiple subsegmental thrombotic pulmonary emboli without acute cor pulmonale eventually started on Eliquis therapy following visit with pulmonary medicine 08/17/2024 as this had been deferred given intracranial bleed with plan for 3 months duration, Anxiety and Depression, GERD, HTN, HLD, Chronic anemia/Fe deficiency anemia, ischemic cardiomyopathy, CAD status post PCI, VIVI not using PAP therapy but supplemental oxygen q HS, Former tobacco use using snuff, 06/03/2024 found down, unresponsive with cardiac arrest with ROSC with prolonged [facility] Stay with significant resulting multiple rib fractures and right- sided significant pneumohemothorax with intubation in the large bore chest tube placement at that time with eventual Klebsiella noted on respiratory culture treated with Zosyn, MRI of the brain with an area of hemorrhage extra-axial he 06/17/2024 with also cervical foraminal stenosis to severe degree on the left C3-C4 as well as an incidental finding of 12 mm T2 hyper intense ovoid lesion in the right parotid possibly patient service representative of malignancy with EEG concerning for hypoxic ischemic encephalopathy with no seizures noted with no surgical intervention recommended by neurosurgery eventually undergoing trach and PEG 06/18/2024 with [facility]/23/2024 eventually weaned from the ventilator and transferred at that time to acute rehab on 07/17/2024 discharged on 08/07/2024 with acute rehab stay complicated by PEG tube dysfunction with discharge to [facility] with plan follow-up outpatient with ENT for right parotid mass and consideration PEG tube removal in the future as well as follow-up with ophthalmology secondary to decreased vision following cardiac arrest with no specific visual field deficits who now presents to the [facility] ED on 09/11/2024 with significant fever, cough and myalgias starting the evening prior now taking all foods and medications by mouth with no associated abdominal pain, nausea, emesis or urinary symptoms but clinically worsened prompting ED evaluation to be cautious. Did discuss his current presentation with his and she does report that he has actually had loose stools recently. Workup in the ED included T102.7, heart rate 106, BP 108/72, respiratory rate 84, respiratory rate 24, 92% on room air with most recent repeat vital signs T98.4 Temporally, heart rate 98, BP 107/74, respiratory rate 21, 95% room air, CBC with WBC 14.8, hemoglobin 13, platelet 305 with left shift and lymphopenia, coags with PT 18.9, INR 1.5, CMP with potassium 3.1, glucose 119, hepatic profile with alk phos 148 otherwise not marked appearing, urinalysis with elevated specific remedy 1.020 but no obvious evidence of urinary tract infection, urine culture pending per ED, blood culture x 2 pending per ED, rapid SARS COVID/influenza/RSV PCR negative, pending sputum Cx per ED, chest x-ray with increased bibasilar pneumonia or pneumonitis with noted increased linear and hazy bibasilar opacities. Most recent sputum culture noted 08/04/2024 with Klebsiella oxytocin and corny bacterium stratum with Klebsiella sensitive to cephalosporins, quinolones, pending's, and sensitive to Unasyn, resistant to ampicillin. In the ED patient administered 1 L normal saline, Rocephin 1 g IV x 1, doxycycline 100 mg IV x 1, DuoNeb therapy, potassium 40 mill equivalent p.o. x 1. [facility] Medical History (Updated 09/11/24 @ 16:[address] Jaqui Adler MD) Chronic neuropathic pain Former smoker Myocardial infarct Foraminal stenosis of cervical region Cervical spondylosis Ribs, multiple fractures Respiratory arrest before cardiac arrest Wears dentures Wears glasses Arthritis History of hiatal hernia Gastric reflux Sleep apnea Hypertension History of echocardiogram History of stress test Cardiology follow-up encounter History of heart attack GERD (gastroesophageal reflux disease) Dysphagia Hypersomnia Bronchiectasis Asthma-COPD overlap syndrome BPH (benign prostatic hyperplasia) Paroxysmal atrial tachycardia Paroxysmal ventricular tachycardia Premature ventricular contraction Atherosclerotic heart disease of [place] coronary artery without angina pectoris Ischemic cardiomyopathy HLD (hyperlipidemia) History of pulmonary embolism Home Medications ?Medication ?Instructions ?Recorded ?Last Taken ?Type atorvastatin 20 mg tablet 20 mg G-tube QHS #1 TAB 08/07/24 Unknown Rx famotidine 20 mg tablet 20 mg G-tube BID #1 TAB 08/07/24 Unknown Rx ferrous sulfate 300 mg (60 mg 300 mg (5 mL) G-tube BREAKFAST #1 08/07/24 Unknown Rx iron)/5 mL oral liquid mL magnesium hydroxide 400 mg/5 mL 30 ml G-tube X1 PRN Constipation 08/07/24 Unknown Rx oral suspension #1 mL montelukast 10 mg tablet 10 mg G-tube DAILY #1 TAB 08/07/24 Unknown Rx multivit and minerals-ferrous 15 ml G-tube DAILYCM #1 mL 08/07/24 Unknown Rx gluconate 9 mg iron/15 mL oral liquid (Multi-William) quetiapine 25 mg tablet 12.5 mg (1/2 x 25 mg) PO 0700 #1 08/07/24 Unknown Rx TAB quetiapine 25 mg tablet 25 mg PO 2000 #1 TAB 08/07/24 Unknown Rx sennosides 8.6 mg-docusate sodium 2 tab G-tube BID #1 TAB 08/07/24 Unknown Rx 50 mg tablet (Stimulant Laxative Plus) gabapentin 400 mg capsule 800 mg (2 x 400 mg) PO TID #1 cap 08/10/24 Unknown Rx bupropion HCl 150 mg 24 hr tablet, 150 mg PO BID 08/16/24 Unknown History extended release nutritional supplements 0.07 240 ml PO Q5H PRN low appetite 08/17/24 Unknown History gram-1.5 kcal/mL liquid for tube feed (Nutren 1.5) albuterol sulfate 2.5 mg/3 mL 2.5 mg inhalation Q4H PRN PRN 09/11/24 Unknown History (0.083 %) solution for nebulization wheezing budesonide 1 mg/2 mL suspension 0.5 mg inhalation QHS 09/11/24 Unknown History for nebulization furosemide 40 mg tablet (Lasix) 40 mg PO DAILY 09/11/24 Unknown History ipratropium 0.5 mg-albuterol 3 mg 3 ml inhalation Q6H PRN PRN dyspnea 09/11/24 Unknown History (2.5 mg base)/3 mL nebulization soln lorazepam 0.5 mg tablet (Ativan) 0.5 mg PO Q8H PRN anxiety 09/11/24 Unknown History Allergy/AdvReac Type Severity Reaction Status Date / Time latex Allergy Rash Verified 09/11/24 11:27 varenicline tartrate (From Allergy Hives Verified 09/11/24 11:27 Chantix) aspirin AdvReac Upset Verified 09/11/24 11:27 Stomach Family History Father , age 50 CAD (coronary artery disease) Heart disease Myocardial infarction Mother Diabetes Brother Hypertension Surgical History S/P percutaneous endoscopic gastrostomy (PEG) tube placement History of tracheostomy History of chest tube placement Hx of carpal tunnel repair Hx of angioplasty History of cardiac catheterization History of coronary artery stent placement Hx of shoulder surgery Hx of sinus surgery Hx of nasal sinusotomy Hx of cystoscopy Hx of tonsillectomy History of thumb surgery Hx of right knee surgery Presence of coronary angioplasty implant and graft (~06/27/08) History of hernia repair Social History household members: significant other and children Smoking Status: Former smoker alcohol intake: never substance use type: does not use caffeine: Yes Type: coffee Number of servings: 3 what type of physical activity do you participate in: walking frequency: daily duration: 45-60 minutes/day seatbelt use: always do you feel safe at home: Yes ROS ROS Narrative Admission Review of Systems: CONSTITUTIONAL: No weight loss, + fever, chills, weakness or fatigue. HEENT: + Chronic issues with vision deficits following cardiac arrest. Eyes: No blurred vision, double vision or yellow sclerae. Ears, Nose, Throat: No hearing loss, sneezing, congestion, runny nose or sore throat. SKIN: No rash or itching, lesions, wounds. CARDIOVASCULAR: + Chronic distal edema. No chest pain, chest pressure or chest discomfort, palpitations, orthopnea, syncopal events. RESPIRATORY: + Dyspnea, occasional cough, difficulty with bringing up sputum, occasional wheezing, trach in place. No hemoptysis. GASTROINTESTINAL: + Decreased appetite, loose stools. PEG tube in place but able to take oral intake primarily. No nausea, vomiting, abdominal pain, melena, BRBPR. GENITOURINARY: No dysuria, frequency, urgency or retention. NEUROLOGICAL: + Significant debility, weakness especially lower extremities status post prolonged hospitalization status post cardiac arrest following respiratory arrest. No headache, dizziness, syncope, paralysis, ataxia, change in bowel or bladder control, seizure. MUSCULOSKELETAL: + muscle, back pain, joint pain or stiffness. HEMATOLOGIC: + History of anemia, easy bleeding/bruising. LYMPHATICS: No enlarged nodes. No history of splenectomy. PSYCHIATRIC: + History of anxiety and depression. ENDOCRINOLOGIC: No reports of sweating, cold or heat intolerance. No polyuria or polydipsia. ALLERGIES: + History of asthma, hives, allergic rhinitis. Vital Signs Vital Signs Vital Signs: 09/11/24 11:23 09/11/24 11:26 09/11/24 11:30 Temperature 102.7 F H 102.7 F H Temperature Source Oral Oral Pulse Rate 106 H 106 H Respiratory Rate 24 H 24 H Respiratory Pattern Tachypnea Blood Pressure 108/72 108/72 Blood Pressure Mean 84 84 Pulse Ox 92 92 Oxygen Delivery Method Room Air Room Air 09/11/24 12:00 09/11/24 12:00 09/11/24 12:26 Temperature 97.8 F Temperature Source Temporal Pulse Rate 100 97 Respiratory Rate 23 H 20 H Respiratory Pattern Blood Pressure 105/69 Blood Pressure Mean 81 Pulse Ox 94 92 Oxygen Delivery Method Room Air Room Air 09/11/24 13:00 09/11/24 13:42 Temperature 98.4 F Temperature Source Temporal Pulse Rate 98 90 Respiratory Rate 21 H 20 H Respiratory Pattern Blood Pressure 107/74 99/66 Blood Pressure Mean 85 77 Pulse Ox 95 93 Oxygen Delivery Method Room Air Room Air Weight Weight: 145 lb 4.554 oz Body Mass Index (BMI) 23.4 Physical Exam Narrative Physical Examination: General: Awake, alert, oriented to self, and some recent events but he does have some cognitive impairment following his recent cardiopulmonary arrest, seated upright in ED bed, fatigued and ill-appearing. Skin: Normal color, normal turgor, no icterus, no cyanosis except very stage ecchymoses, abrasion, some mild irritation around the PEG tube insertion site. HEENT: AT/NC, EOMI, PERRLA, dry MM, trach in place, no obvious carotid bruits or markedly noted JVD. Lungs: Significantly diminished, greater bases, mildly coarse, decreased effort, trach in place, no marked rales or wheezing. Heart: Regular rate and rhythm; no gallop, rub audible. Abdomen: Soft, PEG tube in place with mild irritation around the insertion site but no marked discharge, NTTP, no marked distention, hyperactive BS, no appreciated HSM. Extremities: No cyanosis, no clubbing, mild pedal to distal [place]o not markedly pitting edema. Neurological: Patient awake, alert, oriented as noted, cognitive function appears intact but patient is significantly fatigued and does have cognitive impairment baseline now following his recent prolonged downtime with cardiopulmonary arrest, pupils equally reactive to light and accommodation, cranial nerves grossly normal, moving all 4 extremities but severely globally weak, strength severely globally decreased Psychiatric: Affect appears flat, fatigued, ill-appearing, no acute evidence of depressive or anxiety feelings but does have underlying history. Results Lab / Micro Data 09/11/24 11:40 09/11/24 11:40 Labs: Laboratory Results - last 24 hr 09/11/24 11:40: WBC 14.8 H, RBC 4.57 L, Hgb 13.0, Hct 40.1, MCV 87.7, MCH 28.4, MCHC 32.4, RDW Std Deviation 47.8 H, RDW Coeff of [place] 14.8 H, Plt Count 305, MPV 9.4, Immature Gran % (Auto) 1.200 H, Neut % (Auto) 80.6 H, Lymph % (Auto) 4.7 L, Sac % (Auto) 7.4, Eos % (Auto) 5.8 H, Baso % (Auto) 0.3, Absolute Neuts (auto) 11.9 H, Absolute Lymphs (auto) 0.69 L, Nucleated RBC % 0, Sodium 138, Potassium 3.1 L, Chloride 104, Carbon Dioxide 27.0, Anion Gap 6, BUN 12, Creatinine 0.81, Estim Creat Clear Calc 84.24, Est GFR (MDRD) Af Amer 125, Est GFR (MDRD) Non-Af 103, BUN/Creatinine Ratio 14.9, Glucose 119 H, Calcium 8.6, Total Bilirubin 0.30, AST 10 L, ALT 11 L, Alkaline Phosphatase 148 H, Total Protein 6.2 L, A lbumin 2.9 L, Globulin 3.3, Albumin/Globulin Ratio 0.9 09/11/24 11:54: PT 18.9 H, INR 1.5, Lactic Acid 1.6 09/11/24 12:40: Urine Color Yellow, Urine Clarity Clear, Urine pH 6.0, Ur Specific [place] 1.020, Urine Protein Negative, Urine Glucose (UA) Normal, Urine Ketones Negative, Urine Occult Blood Negative, Urine Nitrite Negative, Urine Bilirubin Negative, Urine Urobilinogen Normal, Ur Leukocyte Esterase Negative, Urine RBC 0 SEEN, Urine WBC 0 SEEN, Ur Squamous Epith Cells 0 SEEN, Urine Bacteria 0 SEEN, Urine Mucus 0 SEEN Micro: Microbiology 09/11/24 11:35 Mucosa - Nose SARS-CoV-2, Influenza & RSV (PCR) - Final Imaging Radiology Impression Chest X-Ray 09/11/24 11:34 IMPRESSION: Increased bibasilar pneumonia or pneumonitis. Electronically Signed: Lesley Yan MD at 12:46 EST , Assessment & Plan Assessment/Plan (1) Pneumonia: PLAN: Plan The patient is a 64 y/o M w/ PMHx: Asthma/COPD/bronchiectasis with chronic hypoxic respiratory failure using nasal cannula nightly with allergic rhinitis, Hx VTE with multiple subsegmental thrombotic pulmonary emboli without acute cor pulmonale eventually started on Eliquis therapy following visit with pulmonary medicine 08/17/2024 as this had been deferred given intracranial bleed with plan for 3 months duration, Anxiety and Depression, GERD, HTN, HLD, Chronic anemia/Fe deficiency anemia, ischemic cardiomyopathy, CAD status post PCI, VIVI not using PAP therapy but supplemental oxygen q HS, Former tobacco use using snuff, 06/03/2024 found down, unresponsive with cardiac arrest with ROSC with prolonged [facility] stay who now presents to the [facility] ED on 09/11/2024 with significant fever, cough and myalgias starting the evening prior now taking all foods and medications by mouth with no associated abdominal pain, nausea, emesis, diarrhea or any urinary symptoms but clinically worsened prompting ED evaluation to be cautious. #1. Acute bilateral pneumonia, possibly gram-negative versus gram-positive organisms given prolonged recent admissions, LTAC stay and recent antibiotic therapies with adult failure to thrive in addition to recently reported loose stools: Will admit to PCU as patient did have labile BP in the ED although improved with IV fluids, currently will maintain trach care and will continue with planned 6 L 28% FiO2 via trach collar nightly, will maintain on ATC budesonide therapy, PRN albuterol, maintained on IV Zosyn and Vancomycin with requested MRSA screen and pending sputum culture per ED, HOB, IS parameters, requested urine antigens and full respiratory viral panel. Of note patient has been taking medications by mouth only and not via PEG. Patient has not been getting supplemental nutrition through the PEG per family but clarifying. Will continue PEG care. To be cautious as patient has been on significant antibiotic therapy with no loose stools will also obtain enteric and C. difficile assessments. Nutrition consulted. Bld cx x 2 obtained in the ED. PT/OT/ST/case management consulted for discharge planning. #2. History of recent acute hypoxic and hypercarbic respiratory failure with eventual cardiac arrest with ROSC complicated by significant multiple rib fractures and right sided pneumothorax with possibly hemopneumothorax: Patient at that time had been intubated and transition to [facility] With large bore chest tube placed, complicated with Klebsiella pneumonia treated with Zosyn and eventual MRI of the brain with questionable small area of extra-axial hemorrhage as well as significant severe degree of foraminal stenosis at 3C to 4 with also MRI with incidentally noted right parotid lesion, EEGs were negative at that time, eventually trach and PEG placed and transition to LTAC with eventual transition to transitional care and following this to [facility] community. From records also patient had difficulty with vision if no specific field deficits or any such with recommended outpatient follow-up with ophthalmology which should still be followed through with. #3. Hx VTE with multiple subsegmental thrombotic pulmonary emboli without acute cor pulmonale, from records a more recent diagnosis: Noted in discussion and pulmonary medicine notes on evaluation 08/17/2024 with recommendation for initiation. He had been in the ED the day prior and there was some concern initially for GI bleed however eventually became known that he had accidentally swallowed his snuff which became stuck and embedded and this certainly could have been irritating the GI lining to cause the positive guaiac of note. Currently hemoglobin is stable at 13, following discussion with pulmonary medicine upon his current admission will initiate Eliquis therapy but will closely follow hemoglobin trending. Patient is out from his recent intracranial small hemorrhage of note. Of note also patient did undergo 07/23/2024 upper endoscopy with at that time noted normal esophagus, ulcer and very G-tube in the wall present with a small incision made to remove the intra-abdominal G-tube with antibiotics administered during the procedure otherwise there was normal second portion of the duodenum which was biopsied, endoscopically removable PEG placed successfully. #4. Asthma/COPD/bronchiectasis with chronic hypoxic respiratory failure with allergic rhinitis: As noted patient using nasal cannula nightly with allergic rhinitis, as noted will maintain on ATC budesonide therapy, as needed albuterol, encourage head of bed and I-S, continue trach care. Discussed patient's situation and presentation with pulmonary medicine as they have recently seen in the office on 08/17/2024 and had planned to potentially decannulate but given this they will delay. Will continue patient home montelukast regimen. #5. CAD, ischemic cardiomyopathy: Status post PCI, unfortunately we do not have a copy of most recent echo performed at [facility], most recent echo noted prior in the system 05/14/2019 with EF 65%, normal diastology for age. As noted above initiating on Eliquis, continue statin, not on beta-maribel therapy, not on VIJAY inhibitor/ARB potentially secondary to low BP/intolerance of beta- blockers given underlying COPD/asthma. #6. Hypertension: Given current presentation with lower blood pressures although responsive to IV fluids will hold Lasix, add back if appropriate. #7. Hyperlipidemia: We will continue patient home statin therapy. #8. Anxiety and Depression: We will continue patient home low-dose Ativan, bupropion, Seroquel with hold parameters for sedation however from previous admission to TCU per review of records did have issues with agitation. #9. Chronic anemia/Fe deficiency anemia: Admission hemoglobin 13, MCV 87.7, improved since prior as had been 1112 through July and August with all his acute presentation events, we will continue to trend CBC, continue iron supplementation. #10. Recently noted incidental right parotid lesion: Noted on MRI at [facility], encourage continued outpatient follow-up with ENT as previously arranged. #11. Former cigarette tobacco usage, snuff usage: Encourage cigarette tobacco cessation and avoidance of snuff especially given recent accidental ingestion of snuff, NR if desired. #12. VIVI: Not using PAP therapy, using 6 L nightly to the trach, continue. #13. Severe protein calorie malnutrition: Evidenced by habitus, notable weight loss over the last couple months with all his acute healthcare events, nutrition consulted. #14. DVT prophylaxis: As noted initiating on Eliquis therapy cautiously. #15. CODE STATUS: Full code per facility paperwork. health care decision maker. Charges/Coding Visit Charges Inpatient E&M: 37010 Init Hosp L3
[2024-09-11] MEDS: Potassium Chloride Oral Tablet 20 MEQ 40 MEQ PO (14:16)
[2024-09-11] MEDS: Ceftriaxone 1 GM/50 ML BAG IV (14:16)
[2024-09-11] MEDS: Doxycycline 100 MG in 0.9% Normal Saline (250mL Bag) 250 ML 250 MG IV (15:20)
--- NOTE | 2024-09-11 15:23 | ED.RN ---
BRITTANI DENT NOTIFIED OF PT. ADMISSION NOT FURTHER QUESTIONS BY THE FAMILY AT THIS TIME. [facility]HAO HAYES CALLED TO UPDATE THEM ON PT. ADMISSION, W/ NO ANSWER.
[2024-09-11 16:04] LABS: Magnesium 1.7 mg/dL (1.6-2.6); Phosphorus 3.8 mg/dL (2.5-4.9)
[2024-09-11] MEDS: Albuterol 2.5 MG/3 ML VIAL.NEB. INHALATION ×2 (16:30→19:44)
[2024-09-11] MEDS: Vancomycin HCl 1,500 MG in 0.9% Normal Saline (500mL Bag) 500 ML 250 MG IV (17:10)
[2024-09-11] MEDS: 0.9% Normal Saline (1000mL) 1,000 ML 100 ML IV (17:10)
--- NOTE | 2024-09-11 17:30 | PCM.RX.CS ---
Consult Antibiotic Management Pharmacy has been consulted to manage selected antibiotic: Vancomycin Type of Intervention Type of Consult: New start Suspected Infection Suspected Infection: Pneumonia Labs Labs: Sodium 138 mmol/L (136-145) 09/11/24 11:40 Potassium 3.1 mmol/L (3.5-5.1) L 09/11/24 11:40 Chloride 104 mmol/L (98-107) 09/11/24 11:40 Carbon Dioxide 27.0 mmol/L (21.0-32.0) 09/11/24 11:40 Anion Gap 6 (5-15) 09/11/24 11:40 BUN 12 mg/dL (7-18) 09/11/24 11:40 Creatinine 0.81 mg/dL (0.70-1.30) 09/11/24 11:40 Est GFR (MDRD) Af Amer 125 mL/min (>60) 09/11/24 11:40 Est GFR (MDRD) Non-Af 103 mL/min (>60) 09/11/24 11:40 BUN/Creatinine Ratio 14.9 RATIO (10-20) 09/11/24 11:40 Glucose 119 mg/dL (74-106) H 09/11/24 11:40 Microbiology Microbiology: Microbiology 09/11/24 13:40 Urine, Clean Catch Legionella Antigen - Final 09/11/24 13:40 Urine, Clean Catch Streptococcus pneumoniae Antigen (M - Final 09/11/24 11:35 Mucosa - Nose SARS-CoV-2, Influenza & RSV (PCR) - Final Pharmacy Plan for Drug Dosing Pharmacy Plan for Drug Dosing: NEW START IV VANCOMYCIN Consulting Physician: White Indication: pneumonia Goal Trough: 15-20 mg/dL SrCr: 0.81 mg/dL CrCl: 84 mL/min Comments: 1500mg loading dose give 09/11 @ 1710 Vancomycin Dose: Will start 1000mg Q12 and get a level prior to 4th total dose per policy. Pending Level: 09/13/24 @ 0430 Pharmacy Service will continue to monitor and adjust dosing as required.
[2024-09-11] MEDS: Budesonide Respules 0.5 MG/2 ML AMPUL.NEB. INHALATION (19:44)
[2024-09-11] MEDS: Piperacil/Tazobactam 3.375 GM in 0.9% Normal Saline (50mL MB+) 50 ML IV (21:29)
[2024-09-11] MEDS: Atorvastatin Calcium 20 MG Tablet PO (21:29)
[2024-09-11] MEDS: Senna/Docusate Sodium 1 Tablet 2 TABLET PO (21:29)
[2024-09-11] MEDS: QUEtiapine 25 MG Tablet PO (21:29)
[2024-09-11] MEDS: APIXABAN 5 MG TABLET 10 MG PO (21:29)
[2024-09-11] MEDS: Gabapentin 800 MG Tablet PO (21:29)
[2024-09-11] MEDS: Famotidine 20 MG Tablet PO (21:29)
[2024-09-11] MEDS: buPROPion (XL) 150 MG TABLET.XL PO (21:29)
[2024-09-12] MEDS: Acetaminophen 325 MG Tablet 650 MG PO (04:36)
[2024-09-12] MEDS: Gabapentin 800 MG Tablet PO ×2 (04:36→14:19)
[2024-09-12 04:47] LABS: Absolute Lymphocyte Count 1.04 X10^3/uL (0.83-4.51); Basophil# 0.03 X10^3/uL; Basophil% 0.4 % (0-1); Eosinophils% 11.4 % (0-5); Hematocrit 33.5 % (40-54); Hemoglobin 10.8 g/dL (13.0-16.5); Lymphocyte # 1.04 X10^3/ul (0.83-4.51); Lymphocyte % 13.2 % (19-41); Mean Corp Hgb Conc 32.2 g/dL (32-36); Mean Corpuscular Hgb 28.6 pg (27.0-32.0); Mean Corpuscular Volume 88.9 fL (80-94); Mean Platelet Vol. 9.5 fl (6.2-12.0); Monocyte# 0.82 X10^3/uL; Monocyte% 10.4 % (0-10); NRBC Flagged by Analyzer 0 % (0-5); Neutrophil # 5.01 X10^3/uL (2.7-7.7); Neutrophil % 63.5 % (47-70); Platelet Count 238 K/mm3 (150-450); RBC Distribution Width SD 48.6 fl (35.1-43.9); Red Blood Count 3.77 M/mm3 (4.6-6.2); White Blood Count 7.9 K/mm3 (4.4-11.0)
[2024-09-12 05:00] VITALS: BP 104/61; PULSE 98; RESP 20; TEMP 36.7; O2SAT 94
[2024-09-12 05:15] LABS: ALB/GLOB Ratio 0.8 RATIO (0.9-2.4); AST(SGOT) 6 U/L (15-37); Alanine Aminotransfer ALT/SGPT 10 U/L (16-61); Albumin, Serum 2.2 g/dL (3.2-5.0); Alkaline Phosphatase 101 U/L (45-117); Anion Gap 4 (5-15); BUN 8 mg/dL (7-18); BUN/Creat Ratio 12.4 RATIO (10-20); Calcium,Total 7.8 mg/dL (8.5-10.1); Chloride 113 mmol/L (98-107); Creatinine, Serum 0.64 mg/dL (0.70-1.30); EST Glomerular Filtration Rate 133 mL/min (>60); Est Glom Filt Rate - Afr Amer 161 mL/min (>60); Estimated Creatinine Clearance 106.11 ml/min; Globulin 2.6 g/dL (2.2-4.2); Glucose 94 mg/dL (74-106); Potassium 3.1 mmol/L (3.5-5.1); Protein, Total 4.8 g/dL (6.4-8.2); Sodium Level 141 mmol/L (136-145)
[2024-09-12] MEDS: Budesonide Respules 0.5 MG/2 ML AMPUL.NEB. INHALATION (05:18)
[2024-09-12] MEDS: Albuterol 2.5 MG/3 ML VIAL.NEB. INHALATION (05:18)
[2024-09-12 05:19] VITALS: PULSE 84; RESP 18
[2024-09-12 05:30] VITALS: BMI 23.5
[2024-09-12] MEDS: Vancomycin IV 1,000 MG/200 ML BAG 200 MG IV (06:28)
[2024-09-12 09:30] VITALS: BP 99/64; PULSE 79; RESP 16; TEMP 36.5; O2SAT 94
[2024-09-12] MEDS: Piperacil/Tazobactam 3.375 GM in 0.9% Normal Saline (50mL MB+) 50 ML IV ×2 (09:34→14:19)
[2024-09-12] MEDS: Multivitamin/Minerals/Iron (9 mg/15 ml) Liquid PO (09:35)
[2024-09-12] MEDS: Ferrous Sulfate 300 MG/5 ML UDC PO (09:35)
[2024-09-12] MEDS: buPROPion (XL) 150 MG TABLET.XL PO (09:36)
[2024-09-12] MEDS: APIXABAN 5 MG TABLET 10 MG PO (09:36)
[2024-09-12] MEDS: Montelukast 10 MG Tablet PO (09:36)
[2024-09-12] MEDS: QUEtiapine 25 MG Tablet 12.5 MG PO (09:36)
--- NOTE | 2024-09-12 11:58 | CASEMGMT ---
Addendum entered by June Molina 09/12/24 13:26: Social Work SW spoke with admissions, if pt returns today no precert is needed. If pt returns after today, new precert will be needed. Physician notified and plans to discharge pt today. [facility] updated. Green sheet placed on pt chart to facility discharge. Disposition: Return to [facility], skilled level of care RADHA Spencer Original Note: Social Work Pt is admitted from [facility]. SW met with pt and introduced self and role of SW. Pt confirms he has been at [facility] and states he is in skilled rehab under his insurance. Pt states plans to return to [facility] at time of discharge. Pt will likely need new precert prior to return. Updated clinicals sent to [facility] via [facility] and inquiry if new precert is needed for return. Plan: Return to [facility], pending precert RADHA Spencer
--- NOTE | 2024-09-12 12:42 | DCINST_ITS ---
Discharge Instructions Diet Discharge Diet: No restrictions DC O2, CPAP, BIPAP needs Home O2 Discharge instructions: No Dressing / Incision Discharge Activity: Return to Normal Activity Weight Bearing Status: Full weight bearing Follow Up Care Test Results: Test results from this visit will be discussed in further detail at your follow- up appointment, if applicable. Discharge Plan Admission Admit Date/Time: 09/11/24 14:33 Primary Reason for Your Visit: possible bilateral pneumonia Attending Provider: Thai Riley Primary Care Provider: Care Physician,No Primary Consulting Providers: Jaqui Adler Instructions Additional Instructions / Restrictions: Resume the patient's Eliquis 5 mg twice daily as before Discharge Orders/Prescriptions Prescriptions: New doxycycline monohydrate 100 mg tablet 100 mg PO BID Qty: 20 0RF Rx Instructions: Begin the evening of 09/12/2024 and complete 20 doses Eliquis 5 mg tablet 5 mg PO BID Qty: 1 0RF Continued Nutren 1.5 0.07 gram-1.5 kcal/mL liquid 240 ml PO Q5H PRN (Reason: low appetite) Rx Instructions: give for supplement if <50% of meal consumed. 30cc flush before and after. albuterol sulfate 2.5 mg /3 mL (0.083 %) solution for nebulization 2.5 mg inhalation Q4H PRN PRN (Reason: wheezing) lorazepam [Ativan] 0.5 mg tablet 0.5 mg PO Q8H PRN (Reason: anxiety) budesonide 1 mg/2 mL suspension for nebulization 0.5 mg inhalation QHS ipratropium-albuterol 0.5 mg-3 mg(2.5 mg base)/3 mL solution for nebulization 3 ml inhalation Q6H PRN PRN (Reason: dyspnea) furosemide [Lasix] 40 mg tablet 40 mg PO DAILY atorvastatin 20 mg Tablet 20 mg G-tube QHS Qty: 1 0RF famotidine 20 mg Tablet 20 mg G-tube BID Qty: 1 0RF ferrous sulfate 300 mg (60 mg iron)/5 mL Liquid 300 mg G-tube BREAKFAST Qty: 1 0RF magnesium hydroxide 400 mg/5 mL Suspension 30 ml G-tube X1 PRN (Reason: Constipation) Qty: 1 0RF Rx Instructions: As needed for constipation montelukast 10 mg Tablet 10 mg G-tube DAILY Qty: 1 0RF Multi-William 9 mg iron/15 mL Liquid 15 ml G-tube DAILYCM Qty: 1 0RF quetiapine 25 mg Tablet 12.5 mg PO 0700 Qty: 1 0RF quetiapine 25 mg Tablet 25 mg PO 2000 Qty: 1 0RF sennosides-docusate sodium [Stimulant Laxative Plus] 8.6-50 mg Tablet 2 tab G-tube BID Qty: 1 0RF gabapentin 400 mg capsule 800 mg PO TID Qty: 1 0RF bupropion HCl 150 mg Tablet Extended Release 24 Hr 150 mg PO BID Referrals / Follow Up: Care Physician,No Primary [Primary Care Provider] - Disposition Disposition (needs filled in before D/C Order can be placed): [facility]
--- NOTE | 2024-09-12 13:01 | PCM.DC.SUM ---
Providers Date of Admission: 09/11/24 Date of Discharge: 09/12/24 Primary Care Physician: No Primary Care Phys Reason For Visit: [facility] PNA Diagnosis Discharge Diagnosis (1) Pneumonia: Status: Acute Code(s): J18.9 - Pneumonia, unspecified organism Plan 1. Bibasilar pulmonary infiltrates-possible pneumonia #2 history of pulmonary embolism present on admission #3 chronic obstructive pulmonary disease #4 chronic depression Medications at Discharge Home Medications atorvastatin 20 mg tablet 20 mg G-tube QHS #1 TAB 08/07/24 famotidine 20 mg tablet 20 mg G-tube BID #1 TAB 08/07/24 ferrous sulfate 300 mg (60 mg iron)/5 mL oral liquid 300 mg (5 mL) G-tube BREAKFAST #1 mL 08/07/24 magnesium hydroxide 400 mg/5 mL oral suspension 30 ml G-tube X1 PRN Constipation #1 mL 08/07/24 montelukast 10 mg tablet 10 mg G-tube DAILY #1 TAB 08/07/24 multivit and minerals-ferrous gluconate 9 mg iron/15 mL oral liquid (Multi-William) 15 ml G-tube DAILYCM #1 mL 08/07/24 quetiapine 25 mg tablet 12.5 mg (1/2 x 25 mg) PO 0700 #1 TAB 08/07/24 quetiapine 25 mg tablet 25 mg PO 2000 #1 TAB 08/07/24 sennosides 8.6 mg-docusate sodium 50 mg tablet (Stimulant Laxative Plus) 2 tab G-tube BID #1 TAB 08/07/24 gabapentin 400 mg capsule 800 mg (2 x 400 mg) PO TID #1 cap 08/10/24 bupropion HCl 150 mg 24 hr tablet, extended release 150 mg PO BID 08/16/24 nutritional supplements 0.07 gram-1.5 kcal/mL liquid for tube feed (Nutren 1.5) 240 ml PO Q5H PRN low appetite 08/17/24 albuterol sulfate 2.5 mg/3 mL (0.083 %) solution for nebulization 2.5 mg inhalation Q4H PRN PRN wheezing 09/11/24 budesonide 1 mg/2 mL suspension for nebulization 0.5 mg inhalation QHS 09/11/24 furosemide 40 mg tablet (Lasix) 40 mg PO DAILY 09/11/24 ipratropium 0.5 mg-albuterol 3 mg (2.5 mg base)/3 mL nebulization soln 3 ml inhalation Q6H PRN PRN dyspnea 09/11/24 lorazepam 0.5 mg tablet (Ativan) 0.5 mg PO Q8H PRN anxiety 09/11/24 apixaban 5 mg tablet (Eliquis) 5 mg PO BID #1 TAB 09/12/24 doxycycline monohydrate 100 mg tablet 100 mg PO BID #20 tabs 09/12/24 Hospital Course Operations None Procedures None Summary of Care Provided Minutes Spent on Discharge: 30 Hospital Course: This 64-year-old white male was seen in the emergency room at [facility] after being transported in from an extended care facility due to fever, cough, and myalgias. Patient was undergoing skilled services at the detention due to a recent cardiac arrest and has a PEG tube in place which he no longer uses and a tracheostomy which is capped. Workup in the emergency room revealed an elevated white blood cell count at 14.8, chemistry profile was abnormal for potassium of 3.1, UA was unremarkable, and chest x-ray showed increased bibasilar pneumonia or pneumonitis. Patient was admitted to PCU, placed on IV antibiotics, and labs were monitored. Patient's white blood cell count the next morning was normal, he did not require any oxygen, and overall felt well. I made the decision at that time to discharge the patient back to his extended care facility on oral antibiotics. On 09/12/2024, patient was seen and examined: On examination he appeared in good health and spirits. Vital signs as documented. Skin warm and dry and without overt rashes. Neck without JVD, neck was supple, tracheostomy tube was in place, thyroid was normal. Lungs clear bilaterally, normal air movement was noted. Heart exam notable for regular rhythm, normal sounds and absence of murmurs, rubs or gallops. Abdomen-PEG tube was in place and without evidence of organomegaly, masses, or abdominal aortic enlargement. Bowel sounds are present, abdomen is not distended. Extremities nonedematous, no cyanosis was noted, no clubbing was noted. Neuro: Cranial nerves II through XII are grossly intact, no focal motor deficits were noted, sensation to light touch and pinprick intact, motor exam 5/5 throughout. Psych: Patient is alert and oriented x3, he does not appear anxious or depressed, he does not appear agitated. On 09/12/2024, patient appeared stable for discharge back to his extended care facility. Weight / BMI Weight Weight: 65.998 kg Body Mass Index (BMI) 23.5 ABG / Lab / Microbiology Data 09/12/24 04:27 09/12/24 04:27 Laboratory: Laboratory Results - last 24 hr 09/11/24 12:40: Urine RBC 0 SEEN, Urine WBC 0 SEEN, Ur Squamous Epith Cells 0 SEEN, Urine Bacteria 0 SEEN, Urine Mucus 0 SEEN 09/11/24 14:55: Phosphorus 3.8, Magnesium 1.7 09/12/24 04:27: WBC 7.9, RBC 3.77 L, Hgb 10.8 L, Hct 33.5 L, MCV 88.9, MCH 28.6, MCHC 32.2, RDW Std Deviation 48.6 H, RDW Coeff of [place] 15.0 H, Plt Count 238, MPV 9.5, Immature Gran % (Auto) 1.100 H, Neut % (Auto) 63.5, Lymph % (Auto) 13.2 L, Alfalfa % (Auto) 10.4 H, Eos % (Auto) 11.4 H, Baso % (Auto) 0.4, Absolute Neuts (auto) 5.0, Absolute Lymphs (auto) 1.04, Nucleated RBC % 0, Sodium 141, Potassium 3.1 L, Chloride 113 H, Carbon Dioxide 25.0, Anion Gap 4 L, BUN 8, Creatinine 0.64 L, Estim Creat Clear Calc 106.11, Est GFR (MDRD) Af Amer 161, Est GFR (MDRD) Non-Af 133, BUN/Creatinine Ratio 12.4, Glucose 94, Calcium 7.8 L, Total Bilirubin 0.40, AST 6 L, ALT 10 L, Alkaline Phosphatase 101, Total Protein 4.8 L, Albumin 2.2 L, Globulin 2.6, Albumin/Globulin Ratio 0.8 L Microbiology: Microbiology 09/11/24 12:05 Blood Culture (Wb) - Right Wrist Blood Culture - Preliminary No growth in 48 hours. 09/11/24 11:54 Blood Culture (Wb) - Anticubital Left Blood Culture - Preliminary No growth in 48 hours. 09/11/24 12:40 Urine, Clean Catch Urine Culture - Final Mixed Gram Positive Organisms 09/11/24 12:10 Sputum, Tracheal Aspirate Respiratory Culture - Preliminary Klebsiella oxytoca 09/11/24 16:20 Mucosa - Nasopharyngeal Respiratory Panel (PCR) - Final 09/11/24 17:20 Nasal Secretion MRSA (PCR) - Final Meth. resistant Staph. aureus 09/11/24 13:40 Urine, Clean Catch Legionella Antigen - Final 09/11/24 13:40 Urine, Clean Catch Streptococcus pneumoniae Antigen (M - Final 09/11/24 11:35 Mucosa - Nose SARS-CoV-2, Influenza & RSV (PCR) - Final D/C Instructions Discharge Diet: No restrictions Weight Bearing Status: Full weight bearing DC O2, CPAP, BIPAP Needs Home O2 Discharge instructions: No Meaningful Use Info Meaningful Use Meaningful Use Diagnoses (Choose all that apply): None applicable Ischemic Stroke Statin Dosing Therapy Reference: STATIN DOSE THERAPY REFERENCE: * Patients > 75 years receive moderate or high dose statin therapy. * Patients 75 years or YOUNGER should receive HIGH intensity statin dose unless contraindicated. You will be required to document reason for non-treatment if statin daily dose does not meet guidelines. HIGH DOSE STATIN THERAPY DAILY Atorvastatin > than or = to 40 mg Rosuvastatin > than or = to 20 mg Amlodipine + Atorvastatin > than or = to 2.5/40 mg Ezetimibe + Simvastatin 10/80 mg Simvastatin 80mg Discharge Plan Admission Admit Date/Time: 09/11/24 14:33 Primary Reason for Your Visit: possible bilateral pneumonia Attending Provider: Tahi Riley Primary Care Provider: Care Physician,No Primary Consulting Providers: Jaqui Adler Instructions Additional Instructions / Restrictions: Resume the patient's Eliquis 5 mg twice daily as before Discharge Orders/Prescriptions Prescriptions: New doxycycline monohydrate 100 mg tablet 100 mg PO BID Qty: 20 0RF Rx Instructions: Begin the evening of 09/12/2024 and complete 20 doses Eliquis 5 mg tablet 5 mg PO BID Qty: 1 0RF Continued Nutren 1.5 0.07 gram-1.5 kcal/mL liquid 240 ml PO Q5H PRN (Reason: low appetite) Rx Instructions: give for supplement if <50% of meal consumed. 30cc flush before and after. albuterol sulfate 2.5 mg /3 mL (0.083 %) solution for nebulization 2.5 mg inhalation Q4H PRN PRN (Reason: wheezing) lorazepam [Ativan] 0.5 mg tablet 0.5 mg PO Q8H PRN (Reason: anxiety) budesonide 1 mg/2 mL suspension for nebulization 0.5 mg inhalation QHS ipratropium-albuterol 0.5 mg-3 mg(2.5 mg base)/3 mL solution for nebulization 3 ml inhalation Q6H PRN PRN (Reason: dyspnea) furosemide [Lasix] 40 mg tablet 40 mg PO DAILY atorvastatin 20 mg Tablet 20 mg G-tube QHS Qty: 1 0RF famotidine 20 mg Tablet 20 mg G-tube BID Qty: 1 0RF ferrous sulfate 300 mg (60 mg iron)/5 mL Liquid 300 mg G-tube BREAKFAST Qty: 1 0RF magnesium hydroxide 400 mg/5 mL Suspension 30 ml G-tube X1 PRN (Reason: Constipation) Qty: 1 0RF Rx Instructions: As needed for constipation montelukast 10 mg Tablet 10 mg G-tube DAILY Qty: 1 0RF Multi-William 9 mg iron/15 mL Liquid 15 ml G-tube DAILYCM Qty: 1 0RF quetiapine 25 mg Tablet 12.5 mg PO 0700 Qty: 1 0RF quetiapine 25 mg Tablet 25 mg PO 2000 Qty: 1 0RF sennosides-docusate sodium [Stimulant Laxative Plus] 8.6-50 mg Tablet 2 tab G-tube BID Qty: 1 0RF gabapentin 400 mg capsule 800 mg PO TID Qty: 1 0RF bupropion HCl 150 mg Tablet Extended Release 24 Hr 150 mg PO BID Referrals / Follow Up: Care Physician,No Primary [Primary Care Provider] - Disposition Disposition (needs filled in before D/C Order can be placed): Long Term Facility Charges/Coding Visit Charges Inpatient E&M: 11982 Disch Hosp >30min
--- NOTE | 2024-09-12 13:32 | TREXTCAR_ITS ---
Diet Diet Order/Speech Therapy: 09/11/24 16:07 Diet: Regular - General Food consistency:: Mechanical (Minced/Moist) Liquid Consistency:: Regular/Thin Routine Orders/Code Status Code Status: Full Code DC O2, CPAP, BIPAP needs Home O2 Discharge instructions: No Therapies Weight Bearing: Full weight bearing Physical Therapy: Eval and Treat Occupational Therapy: Eval and Treat Problem/Diagnosis (1) Pneumonia: Status: Acute Code(s): J18.9 - Pneumonia, unspecified organism Plan 1. Bibasilar pulmonary infiltrates-possible pneumonia #2 history of pulmonary embolism present on admission #3 chronic obstructive pulmonary disease #4 chronic depression Allergies/Procedures Done in Hospital Allergies latex Allergy (Verified 09/11/24 11:27) Rash varenicline tartrate (From Chantix) Allergy (Verified 09/11/24 11:27) Hives aspirin Adverse Reaction (Verified 09/11/24 11:) Upset Stomach Procedures: None Type of Care/Length of Stay Estimated LOS: Convalescent Care Less Than 30 days Type of Care Needed: Skilled Rehab Potential: Good Prognosis: Good Additional Orders/Day of Discharge H&P will serve as current which was dated: 09/11/24 Day of Discharge: 09/12/24 Dietary and Speech Recommendations Dietitian Recommendations/Changes: Continue liberal regular diet per [employer] consistency/texture recommendations. If pt continues to have PEG, recommend 60ml water flushes BID. Will monitor weight. Reviewed and approved by Vivi Harvey RD, LD. Discharge Plan Admission Admit Date/Time: 09/11/24 14:33 Primary Reason for Your Visit: possible bilateral pneumonia Attending Provider: Thai Riley Primary Care Provider: Care Physician,No Primary Consulting Providers: Jaqui Adler Instructions Additional Instructions / Restrictions: Resume the patient's Eliquis 5 mg twice daily as before Discharge Orders/Prescriptions Prescriptions: New doxycycline monohydrate 100 mg tablet 100 mg PO BID Qty: 20 0RF Rx Instructions: Begin the evening of 09/12/2024 and complete 20 doses Eliquis 5 mg tablet 5 mg PO BID Qty: 1 0RF Continued Nutren 1.5 0.07 gram-1.5 kcal/mL liquid 240 ml PO Q5H PRN (Reason: low appetite) Rx Instructions: give for supplement if <50% of meal consumed. 30cc flush before and after. albuterol sulfate 2.5 mg /3 mL (0.083 %) solution for nebulization 2.5 mg inhalation Q4H PRN PRN (Reason: wheezing) lorazepam [Ativan] 0.5 mg tablet 0.5 mg PO Q8H PRN (Reason: anxiety) budesonide 1 mg/2 mL suspension for nebulization 0.5 mg inhalation QHS ipratropium-albuterol 0.5 mg-3 mg(2.5 mg base)/3 mL solution for nebulization 3 ml inhalation Q6H PRN PRN (Reason: dyspnea) furosemide [Lasix] 40 mg tablet 40 mg PO DAILY atorvastatin 20 mg Tablet 20 mg G-tube QHS Qty: 1 0RF famotidine 20 mg Tablet 20 mg G-tube BID Qty: 1 0RF ferrous sulfate 300 mg (60 mg iron)/5 mL Liquid 300 mg G-tube BREAKFAST Qty: 1 0RF magnesium hydroxide 400 mg/5 mL Suspension 30 ml G-tube X1 PRN (Reason: Constipation) Qty: 1 0RF Rx Instructions: As needed for constipation montelukast 10 mg Tablet 10 mg G-tube DAILY Qty: 1 0RF Multi-William 9 mg iron/15 mL Liquid 15 ml G-tube DAILYCM Qty: 1 0RF quetiapine 25 mg Tablet 12.5 mg PO 0700 Qty: 1 0RF quetiapine 25 mg Tablet 25 mg PO 2000 Qty: 1 0RF sennosides-docusate sodium [Stimulant Laxative Plus] 8.6-50 mg Tablet 2 tab G-tube BID Qty: 1 0RF gabapentin 400 mg capsule 800 mg PO TID Qty: 1 0RF bupropion HCl 150 mg Tablet Extended Release 24 Hr 150 mg PO BID Referrals / Follow Up: Care Physician,No Primary [Primary Care Provider] - Disposition Disposition (needs filled in before D/C Order can be placed): [facility]
[2024-09-12] MEDS: Potassium Chloride Oral Tablet 20 MEQ 40 MEQ PO (14:19)
[2024-09-12] MEDS: Doxycycline 100 MG CAPSULE PO (14:19)
[2024-09-12 14:22] VITALS: BP 111/72; PULSE 87; RESP 16; TEMP 36.4; O2SAT 98
--- NOTE | 2024-09-12 15:40 | NURSING ---
report called to naresh simon
== END 2024-09-12 16:41 | disposition skilled nursing facility (03) | DRG 194 ==
LOC: ED 14:10 → PCU 18:46
PROVIDERS: Physician Assistant; Admitting Provider Family Medicine; Emergency Provider Emergency Medicine; Referring Provider Family Medicine; Visit Provider Internal Medicine
DX: J18.9 Pneumonia, unspecified organism (principal); J47.0 Bronchiectasis with acute lower respiratory infection; I25.5 Ischemic cardiomyopathy; D50.9 Iron deficiency anemia, unspecified; I10 Essential (primary) hypertension; Z93.1 Gastrostomy status; J44.9 Chronic obstructive pulmonary disease, unspecified; J30.9 Allergic rhinitis, unspecified; I25.10 Atherosclerotic heart disease of native coronary artery without angina pectoris; E78.5 Hyperlipidemia, unspecified; I25.2 Old myocardial infarction; F41.8 Other specified anxiety disorders; G47.33 Obstructive sleep apnea (adult) (pediatric); Z99.81 Dependence on supplemental oxygen; Z87.891 Personal history of nicotine dependence; Z95.5 Presence of coronary angioplasty implant and graft; Z79.899 Other long term (current) drug therapy; Z86.711 Personal history of pulmonary embolism
CPT/HCPCS: 31720; 36415; 71045; 80053; 81001; 83605; 83735; 84100; 85025; 85610; 87040; 87070; 87077; 87086; 87088; 87186; 87205; 87449; 87631; 87633; 87641; 92610; 94640; 97162; 97165; 97802; 99285; 99406; A4216

== ENCOUNTER 2024-10-28 10:45 | Inpatient (IN) | payer MEDICARE, MEDICAID, SELFPAY ==
[2024-10-28] VITALS (9 sets, daily range): BP systolic 101–120; BP diastolic 65–82; PULSE 64–101; RESP 16–25; TEMP 36.3–37.2; O2SAT 92–99; BMI 21.4; BMI 22.5
--- NOTE | 2024-10-28 12:06 | ED.VIS.GI ---
HPI HPI - GI History of Present Illness Chief Complaint: GI Bleed Narrative Narrative: 64-year-old male past medical history of PEG tube, has history of cardiac arrest and COPD presents with reported vomiting of black substance which has now resolved. That started this morning when he awoke. He does not take blood thinners. Additionally, he states he started having black stool a day or 2 ago. He denies any abdominal pain. No fevers or chills, no other symptoms. PFSH PFSH Medical History HCAP (healthcare-associated pneumonia) Tracheostomy in place Pneumonia MRSA (methicillin resistant staph aureus) culture positive Chronic neuropathic pain Former smoker Myocardial infarct Foraminal stenosis of cervical region Cervical spondylosis Ribs, multiple fractures Respiratory arrest before cardiac arrest Wears dentures Wears glasses Arthritis History of hiatal hernia Gastric reflux Sleep apnea Hypertension History of echocardiogram History of stress test Cardiology follow-up encounter History of heart attack GERD (gastroesophageal reflux disease) Dysphagia Hypersomnia Bronchiectasis Asthma-COPD overlap syndrome BPH (benign prostatic hyperplasia) Paroxysmal atrial tachycardia Paroxysmal ventricular tachycardia Premature ventricular contraction Atherosclerotic heart disease of [place] coronary artery without angina pectoris Ischemic cardiomyopathy HLD (hyperlipidemia) History of pulmonary embolism Home Medications ?Medication ?Instructions ?Recorded ?Last Taken ?Type atorvastatin 20 mg tablet 20 mg G-tube QHS #1 TAB 08/07/24 Unknown Rx famotidine 20 mg tablet 20 mg G-tube BID #1 TAB 08/07/24 Unknown Rx ferrous sulfate 300 mg (60 mg 300 mg (5 mL) G-tube BREAKFAST #1 08/07/24 Unknown Rx iron)/5 mL oral liquid mL magnesium hydroxide 400 mg/5 mL 30 ml G-tube X1 PRN Constipation 08/07/24 Unknown Rx oral suspension #1 mL montelukast 10 mg tablet 10 mg G-tube DAILY #1 TAB 08/07/24 Unknown Rx multivit and minerals-ferrous 15 ml G-tube DAILYCM #1 mL 08/07/24 Unknown Rx gluconate 9 mg iron/15 mL oral liquid (Multi-William) quetiapine 25 mg tablet 12.5 mg (1/2 x 25 mg) PO 0700 #1 08/07/24 Unknown Rx TAB gabapentin 400 mg capsule 800 mg (2 x 400 mg) PO TID #1 cap 08/10/24 Unknown Rx bupropion HCl 150 mg 24 hr tablet, 150 mg PO BID 08/16/24 Unknown History extended release nutritional supplements 0.07 240 ml PO Q5H PRN low appetite 08/17/24 Unknown History gram-1.5 kcal/mL liquid for tube feed (Nutren 1.5) albuterol sulfate 2.5 mg/3 mL 2.5 mg inhalation Q4H PRN PRN 09/11/24 Unknown History (0.083 %) solution for nebulization wheezing furosemide 40 mg tablet (Lasix) 40 mg PO DAILY 09/11/24 Unknown History ipratropium 0.5 mg-albuterol 3 mg 3 ml inhalation Q6H PRN PRN dyspnea 09/11/24 Unknown History (2.5 mg base)/3 mL nebulization soln lorazepam 0.5 mg tablet (Ativan) 0.5 mg PO Q8H PRN anxiety 09/11/24 Unknown History apixaban 5 mg tablet (Eliquis) 5 mg PO BID #1 TAB 09/12/24 Unknown Rx lidocaine 5 % topical patch 1 patch topical QDAY 10/01/24 Unknown History ketoconazole 2 % topical cream 1 applic topical BID 10/06/24 Unknown History quetiapine 25 mg tablet 25 mg PO QHS 10/06/24 Unknown History magnesium oxide 400 mg PO QDAY 10/15/24 Unknown History fluticasone fur. 200 mcg-umeclid 1 inh inhalation Q24H #60 ea 10/20/24 Unknown Rx 62.5 mcg-vilant 25 mcg inhalat.powder (Trelegy Ellipta) guaifenesin 1,200 mg tablet, 1,200 mg PO BID PRN 10/20/24 Unknown History extended release 12 hr (Mucinex) Allergy/AdvReac Type Severity Reaction Status Date / Time latex Allergy Rash Verified 10/20/24 10:20 varenicline tartrate (From Allergy Hives Verified 10/20/24 10:20 Chantix) aspirin AdvReac Upset Verified 10/20/24 10:20 Stomach Family History Father , age 50 CAD (coronary artery disease) Heart disease Myocardial infarction Mother Diabetes Brother Hypertension Surgical History S/P percutaneous endoscopic gastrostomy (PEG) tube placement History of tracheostomy History of chest tube placement Hx of carpal tunnel repair Hx of angioplasty History of cardiac catheterization History of coronary artery stent placement Hx of shoulder surgery Hx of sinus surgery Hx of nasal sinusotomy Hx of cystoscopy Hx of tonsillectomy History of thumb surgery Hx of right knee surgery Presence of coronary angioplasty implant and graft (~06/27/08) History of hernia repair Social History household members: significant other and children Smoking Status: Former smoker alcohol intake: never substance use type: does not use caffeine: Yes Type: coffee Number of servings: 3 what type of physical activity do you participate in: walking frequency: daily duration: 45-60 minutes/day seatbelt use: always do you feel safe at home: Yes ROS ROS ED ROS Narrative History and physical mildly limited to history of anoxic encephalopathy. Obtained from significant other. Constitutional: No fever, no chills. HEENT: No sore throat. No neck pain. No loss of vision. No rhinorrhea. Cardiovascular: No chest pain. No palpitations. No pedal edema. Respiratory: No cough, no shortness of breath. Abdominal: No abdominal pain. Nausea and vomiting starting at 1 AM today, approximately 11 hours ago. Black substance that now has cleared. Positive black stool for 1 to 2 days. Genitourinary: No dysuria. No hematuria. Musculoskeletal: No myalgias. No arthralgias. Neurologic: No headaches. No dizziness. No lightheadedness. Skin: No rash. No change in color. Psychiatric: No depression. No anxiety. EXAM Physical Exam Narrative Exam Narrative: Afebrile. Vital signs noted. Nontoxic-appearing. Cardiovascular examination reveals a regular rate and rhythm. Lungs are clear to auscultation bilaterally. Abdomen is soft and nontender. Positive PEG tube. No surrounding erythema. No abdominal distention, no guarding or rebound. Positive bowel sounds. No skin pallor. Awake, alert, interactive. Const Vital Signs: 10/28/24 10:47 10/28/24 12:53 10/28/24 12:59 Temperature 98.9 F 98.4 F Temperature Source Oral Oral Pulse Rate 78 64 93 Respiratory Rate 16 18 25 H Respiratory Pattern Normal Blood Pressure 101/82 H Blood Pressure Mean 88 Pulse Ox 98 98 Oxygen Delivery Method Room Air Room Air Oxygen Flow Rate (L/min) 10/28/24 14:00 10/28/24 15:52 10/28/24 16:00 Temperature 97.9 F Temperature Source Pulse Rate 92 101 H 93 Respiratory Rate 16 24 H 20 H Respiratory Pattern Blood Pressure 111/70 104/65 108/74 Blood Pressure Mean 83 78 85 Pulse Ox 92 96 99 Oxygen Delivery Method Venturi Mask Venturi Mask Oxygen Flow Rate (L/min) 2 2 MDM MDM MDM Narrative Medical decision making narrative: Concern would be for upper GI bleed versus lower GI bleed in the differential diagnosis. He may have more of a gastritis. I did review his medication list and it does state that he takes Eliquis however for atrial fibrillation. This will be reconfirmed. I will obtain basic laboratory work. I do not feel NG is indicated currently as a state that he is not vomiting black substance any longer. They state that he did not have any bright red blood per rectum or in his vomitus. I reviewed his laboratory work and he has elevated white count of 13.6, hemoglobin 11.6 and stable when compared to previous laboratories, hematocrit 36.5 platelet count normal at 296. BUN is elevated at 21 with normal creatinine of 1.0 which makes me suspicious for GI bleeding, upper. AST elevated at 74 which I think is nonspecific. Lipase normal at 14. Patient did have an episode of emesis which was black in color. Hence, NG tube was placed by RN. That showed return of at least 300 mL of dark brown to black substance/coffee-ground emesis. In discussion with his significant other, he has been home from the halfway for about a week and a half. He does take Eliquis for atrial fibrillation but they stopped his iron. Chaperoned rectal examination/Hemoccult did show normal colored stool which was Hemoccult negative. However, his vomiting started today. Gastroccult is positive. KUB x-ray after NG placement interpreted by myself independently does show the tip of the nasogastric tube below the diaphragm. I reviewed the radiology report which confirms placement in my independent interpretation. I did discuss patient with Dr. Jackson who agrees with admission for endoscopy. I did discuss patient with Dr. Cheney, who will evaluate the patient in the ED and determine admission status/placement. Disposition is admit. Patient is in stable condition. History & Record Review Discussion w/independent historian: Patient and Significant other Lab Data Attestation: I reviewed the patient's lab results. Labs: Laboratory Results - last 24 hr 10/28/24 12:02 WBC 13.6 H RBC 4.18 L Hgb 11.6 L Hct 36.5 L MCV 87.3 MCH 27.8 MCHC 31.8 L RDW Std Deviation 49.6 H RDW Coeff of [place] 15.4 H Plt Count 296 MPV 9.3 Immature Gran % (Auto) 0.700 Neut % (Auto) 86.6 H Lymph % (Auto) 5.1 L [place] % (Auto) 6.9 Eos % (Auto) 0.4 Baso % (Auto) 0.3 Absolute Neuts (auto) 11.8 H Absolute Lymphs (auto) 0.69 L Nucleated RBC % 0 Sodium 136 Potassium 3.9 Chloride Direct 100 Carbon Dioxide 24.0 Anion Gap 11 BUN 21 H Creatinine 1.0 Estim Creat Clear Calc 68.59 Est GFR (MDRD) Non-Af 87 BUN/Creatinine Ratio 21.1 H Glucose 121 H Calcium 8.6 Total Bilirubin 0.72 AST 74 H ALT 25 Alkaline Phosphatase 104 Total Protein 6.0 Albumin 3.6 Globulin 2.4 Albumin/Globulin Ratio 1.5 Lipase 14 Radiography Diagnostic Testing: Clinical Impression(s) from Imaging Studies KUB X-Ray 10/28/24 12:51 IMPRESSION: The tip of the nasogastric tube is below the diaphragm, within the stomach. Bilateral rib fracture deformities. Reading Location: [facility] Management Discussion w/another healthcare provider: Hospitalist (Dr. Cheney) and Driver Medic (Dr. Jackson, gastroenterology) Discharge Plan Dx/Rx/DC Orders Clinical Impression: Acute upper GI bleeding, COPD (chronic obstructive pulmonary disease), PEG (percutaneous endoscopic gastrostomy) status Disposition Disposition: Acute Care Hospital [facility]
[2024-10-28] MEDS: 0.9% Normal Saline (1000mL) 1,000 ML 999 ML IV (12:08)
[2024-10-28 12:12] LABS: Absolute Lymphocyte Count 0.69 X10^3/uL (0.83-4.51); Absolute Neutrophil Count 11.8 X10^3/uL (2.0-7.7); Basophil# 0.04 X10^3/uL; Basophil% 0.3 % (0-1); Eosinophil# 0.05 X10^3/uL; Eosinophils% 0.4 % (0-5); Hematocrit 36.5 % (40-54); Hemoglobin 11.6 g/dL (13.0-16.5); Lymphocyte # 0.69 X10^3/ul (0.83-4.51); Lymphocyte % 5.1 % (19-41); Mean Corp Hgb Conc 31.8 g/dL (32-36); Mean Corpuscular Hgb 27.8 pg (27.0-32.0); Mean Corpuscular Volume 87.3 fL (80-94); Mean Platelet Vol. 9.3 fl (6.2-12.0); Monocyte# 0.94 X10^3/uL; Monocyte% 6.9 % (0-10); NRBC Flagged by Analyzer 0 % (0-5); Neutrophil # 11.81 X10^3/uL (2.7-7.7); Neutrophil % 86.6 % (47-70); Platelet Count 296 K/mm3 (150-450); RBC Distribution Width CV 15.4 % (11.6-14.6); RBC Distribution Width SD 49.6 fl (35.1-43.9); Red Blood Count 4.18 M/mm3 (4.6-6.2); White Blood Count 13.6 K/mm3 (4.4-11.0)
[2024-10-28 12:41] LABS: ALB/GLOB Ratio 1.5 RATIO (0.9-2.4); AST(SGOT) 74 U/L (<=37); Alanine Aminotransfer ALT/SGPT 25 U/L (<=46); Albumin, Serum 3.6 g/dL (3.4-4.8); Alkaline Phosphatase 104 U/L (40-129); Anion Gap 11 (5-15); BUN 21 mg/dL (4-19); BUN/Creat Ratio 21.1 RATIO (10-20); Calcium 8.6 mg/dL (7.6-11.0); Chloride 100 mmol/L (96-108); EST Glomerular Filtration Rate 87 (>60); Estimated Creatinine Clearance 68.59 ml/min; Globulin 2.4 g/dL (2.2-4.2); Glucose 121 mg/dL (70-99); Lipase 14 U/L (13-75); Potassium 3.9 mmol/L (3.3-5.1); Sodium Level 136 mmol/L (133-145); Total Bilirubin 0.72 mg/dL (0.00-1.30)
--- NOTE | 2024-10-28 12:51 | RAD_ITS ---
PROCEDURE: ABDOMEN SINGLE VIEW (PORTABLE) REASON FOR EXAM: NG tube placement. TECHNIQUE: Single view abdomen. COMPARISON: None FINDINGS: Bowel gas pattern is normal. No evidence of bowel obstruction. The tip of the nasogastric tube is below the diaphragm, within the stomach. No suspicious calcifications. Bilateral rib fracture deformities. RAD/Abdomen Single View (Portable) IMPRESSION: The tip of the nasogastric tube is below the diaphragm, within the stomach. Bilateral rib fracture deformities. Reading Location: [id number]
[2024-10-28] MEDS: Ipratropium/Albuterol Sulfate 3 ML AMPUL.NEB INHALATION ×2 (12:59→19:35)
[2024-10-28] MEDS: Ondansetron 4 MG/2 ML Vial IV (13:13)
[2024-10-28] MEDS: Morphine 4 MG/ML Syringe IV (13:14)
[2024-10-28] MEDS: Oxymetazoline 0.05% 1 SPRAY SPRAY.BTL 2 SPRAY NASAL (13:14)
[2024-10-28] MEDS: Pantoprazole Sodium 40 MG in 0.9% Normal Saline (100mL MB+) 100 ML 330 MG IV ×2 (14:58→22:30)
--- NOTE | 2024-10-28 17:26 | HP.PCM.HOS_ITS ---
HPI - General General Date of Admission: 10/28/24 Date of Service: 10/28/24 Chief Complaint: Vomited black material HPI Narrative CHIO DENT, is a 64 M who presents with vomiting black material. He was doing well in the emergency room and then happen again. They placed an NG tube and were able to get black material. His Hemoccult was negative but his Gastroccult was positive. Concern for that being a GI bleed while he has been recently started on apixaban for VTE. The ED physician reached out to Dr. Jackson of gastroenterology. Patient was started on pantoprazole 40 mg in the emergency room IV. Patient be admitted for further GI bleed. Patient denies any history of any GI bleed. Does have some abdominal pain. [facility] Medical History HCAP (healthcare-associated pneumonia) Tracheostomy in place Pneumonia MRSA (methicillin resistant staph aureus) culture positive Chronic neuropathic pain Former smoker Myocardial infarct Foraminal stenosis of cervical region Cervical spondylosis Ribs, multiple fractures Respiratory arrest before cardiac arrest Wears dentures Wears glasses Arthritis History of hiatal hernia Gastric reflux Sleep apnea Hypertension History of echocardiogram History of stress test Cardiology follow-up encounter History of heart attack GERD (gastroesophageal reflux disease) Dysphagia Hypersomnia Bronchiectasis Asthma-COPD overlap syndrome BPH (benign prostatic hyperplasia) Paroxysmal atrial tachycardia Paroxysmal ventricular tachycardia Premature ventricular contraction Atherosclerotic heart disease of [place] coronary artery without angina pectoris Ischemic cardiomyopathy HLD (hyperlipidemia) History of pulmonary embolism Home Medications ?Medication ?Instructions ?Recorded ?Last Taken ?Type atorvastatin 20 mg tablet 20 mg G-tube QHS #1 TAB 02/23 Unknown Rx famotidine 20 mg tablet 20 mg G-tube BID #1 TAB 02/23 Unknown Rx ferrous sulfate 300 mg (60 mg 300 mg (5 mL) G-tube ANGELA AKFAST #1 08/07/24 Unknown Rx iron)/5 mL oral liquid mL magnesium hydroxide 400 mg/5 mL 30 ml G-tube X1 PRN Co nstipation 08/07/24 Unknown Rx oral suspension #1 mL montelukast 10 mg tablet 10 mg G-tube DAILY #1 TAB Unknown Rx multivit and minerals-ferrous 15 ml G-tube DAILYCM #1 mL 08/07/24 Unknown Rx gluconate 9 mg iron/15 mL oral liquid (Multi-William) quetiapine 25 mg tablet 12.5 mg (1/2 x 25 mg) PO 070 0 #1 08/07/24 Unknown Rx TAB gabapentin 400 mg capsule 800 mg (2 x 400 mg) PO TID # 1 cap 08/10/24 Unknown Rx bupropion HCl 150 mg 24 hr tablet, 150 mg PO BID 08/16 Unknown History extended release nutritional supplements 0.07 240 ml PO Q5H PRN low debi etite 08/17/24 Unknown History gram-1.5 kcal/mL liquid for tube feed (Nutren 1.5) albuterol sulfate 2.5 mg/3 mL 2.5 mg inhalation Q4H VA N PRN 09/11/24 Unknown History (0.083 %) solution for nebulization wheezing furosemide 40 mg tablet (Lasix) 40 mg PO DAILY 5 Unknown History ipratropium 0.5 mg-albuterol 3 mg 3 ml inhalation Q6H PRN PRN dyspnea 09/11/24 Unknown History (2.5 mg base)/3 mL nebulization soln lorazepam 0.5 mg tablet (Ativan) 0.5 mg PO Q8H PRN anx iety 09/11/24 Unknown History apixaban 5 mg tablet (Eliquis) 5 mg PO BID #1 TAB 09/02 09/26 Unknown Rx lidocaine 5 % topical patch 1 patch topical QDAY 10/01 Unknown History ketoconazole 2 % topical cream 1 applic topical BID Unknown History quetiapine 25 mg tablet 25 mg PO QHS 10/06/24 Unknow n History magnesium oxide 400 mg PO QDAY 10/15/24 Unkn own History fluticasone fur. 200 mcg-umeclid 1 inh inhalation Q24H #60 ea 10/20/24 Unknown Rx 62.5 mcg-vilant 25 mcg inhalat.powder (Trelegy Ellipta) guaifenesin 1,200 mg tablet, 1,200 mg PO BID PRN 10/20 Unknown History extended release 12 hr (Mucinex) Allergy/AdvReac Type Severity Reaction Status Date / Time latex Allergy Rash Verified 10/20/24 10:20 varenicline tartrate (From Allergy Hives Verified 10/20/24 10:20 Chantix) aspirin AdvReac Upset Verified 10/20/24 10:20 Stomach Family History Father , age 50 CAD (coronary artery disease) Heart disease Myocardial infarction Mother Diabetes Brother Hypertension Surgical History S/P percutaneous endoscopic gastrostomy (PEG) tube placement History of tracheostomy History of chest tube placement Hx of carpal tunnel repair Hx of angioplasty History of cardiac catheterization History of coronary artery stent placement Hx of shoulder surgery Hx of sinus surgery Hx of nasal sinusotomy Hx of cystoscopy Hx of tonsillectomy History of thumb surgery Hx of right knee surgery Presence of coronary angioplasty implant and graft (~06/27/08) History of hernia repair Social History household members: significant other and children Smoking Status: Former smoker alcohol intake: never substance use type: does not use caffeine: Yes Type: coffee Number of servings: 3 what type of physical activity do you participate in: walking frequency: daily duration: 45-60 minutes/day seatbelt use: always do you feel safe at home: Yes ROS ROS Narrative All review of systems were negative except as mentioned above in the history of present illness and the other review of systems. Vital Signs Vital Signs Vital Signs: 10/28/24 10:47 10/28/24 12:53 10/28/24 12:59 Temperature 37.2 C 36.9 C Temperature Source Oral Oral Pulse Rate 78 64 93 Respiratory Rate 16 18 25 H Respiratory Pattern Normal Blood Pressure 101/82 H Blood Pressure Mean 88 Pulse Ox 98 98 Oxygen Delivery Method Room Air Room Air Oxygen Flow Rate (L/min) 10/28/24 14:00 10/28/24 15:52 10/28/24 16:00 Temperature 36.6 C Temperature Source Pulse Rate 92 101 H 93 Respiratory Rate 16 24 H 20 H Respiratory Pattern Blood Pressure 111/70 104/65 108/74 Blood Pressure Mean 83 78 85 Pulse Ox 92 96 99 Oxygen Delivery Method Venturi Mask Venturi Mask Oxygen Flow Rate (L/min) 2 2 Weight Weight: 64.138 kg Body Mass Index (BMI) 21.4 Physical Exam Const alert and no apparent distress HEENT normocephalic and head/scalp atraumatic HEENT Narrative: NG tube in place Resp normal respiratory effort, no retractions, no use of accessory muscles and clear to auscultation bilaterally Cardio regular rate, regular rhythm, S1 normal heart sound and S2 normal heart sound GI normal to inspection, nondistended, normoactive bowel sounds, soft to palpation, non-tender and non-distended Extremity normal to inspection and full ROM Neuro moves all extremities and no focal motor deficits Sensorium / Orientation: awake and alert Psych affect normal Results Lab / Micro Data 10/28/24 12:02 10/28/24 12:02 Labs: Laboratory Results - last 24 hr 10/28/24 12:02: WBC 13.6 H, RBC 4.18 L, Hgb 11.6 L, Hct 36.5 L, MCV 87.3, MCH 27.8, MCHC 31.8 L, RDW Std Deviation 49.6 H, RDW Coeff of [place] 15.4 H, Plt Count 296, MPV 9.3, Immature Gran % (Auto) 0.700, Neut % (Auto) 86.6 H, Lymph % (Auto) 5.1 L, [place] % (Auto) 6.9, Eos % (Auto) 0.4, Baso % (Auto) 0.3, Absolute Neuts (auto) 11.8 H, Absolute Lymphs (auto) 0.69 L, Nucleated RBC % 0, Sodium 136, Potassium 3.9, Chloride Direct 100, Carbon Dioxide 24.0, Anion Gap 11, BUN 21 H, Creatinine 1.0, Estim Creat Clear Calc 68.59, Est GFR (MDRD) Non-Af 87, B UN/Creatinine Ratio 21.1 H, Glucose 121 H, Calcium 8.6, Total Bilirubin 0.72, A ST 74 H, ALT 25, Alkaline Phosphatase 104, Total Protein 6.0, Albumin 3.6, Globulin 2.4, Albumin/Globulin Ratio 1.5, Lipase 14 Micro: Microbiology 10/28/24 16:12 Gastric Fluid/Contents Gastric Occult Blood - Final Occult Blood Positive 10/28/24 12:51 Stool Stool Occult Blood (BERTHA) - Final Imaging Radiology Impression KUB X-Ray 10/28/24 12:51 IMPRESSION: The tip of the nasogastric tube is below the diaphragm, within the stomach. Bilateral rib fracture deformities. Reading Location: [facility] Assessment & Plan Assessment/Plan (1) Acute upper GI bleeding: PLAN: Noted black material that was vomited up and was Gastroccult positive. Patient has since been started on the IV pantoprazole and will continue on the floor. Consult gastroenterology and hold off on his apixaban for now. Check serial H&H. Currently his hemoglobin is stable. PLAN: Plan Chronic conditions * VTE: Apixaban on hold. * Ischemic cardiomyopathy: Since he can be n.p.o. will give us a low-dose of normal saline 75 cc/h. No evidence of any CHF at this time. * Hyperlipidemia: Resume statin when able. * Bronchiectasis: Stable at this time. VTE prophylaxis with SCDs CODE STATUS: Addressed with the patient. Patient wishes to be full code. Charges/Coding Visit Charges Inpatient E&M: 36101 Init Hosp L3
--- NOTE | 2024-10-28 18:09 | CM.ED ---
Social Work Patient was noted to have bug on clothing while waiting in triage. SW met with patient and significant other, both deny any concerns with bed bugs on clothing or in home. Patient and significant other deny any concerns related to safety in home, ability to secure food, or ability to pay bills. Significant other stated that patient had recently been discharged from [facility]. No further needs identified at this time. Zoila Hoskins, UX DESIGNER, MARBLE MACHINE OPERATOR
[2024-10-28] MEDS: 0.9% Normal Saline (1000mL) 1,000 ML 75 ML IV (18:58)
[2024-10-28] MEDS: Budesonide Respules 0.5 MG/2 ML AMPUL.NEB. INHALATION (19:35)
[2024-10-28 19:41] LABS: Hematocrit 35.4 % (40-54); Hemoglobin 11.2 g/dL (13.0-16.5)
[2024-10-29] VITALS (12 sets, daily range): BP systolic 102–119; BP diastolic 63–77; PULSE 83–96; RESP 16–24; TEMP 36.6–36.8; O2SAT 93–98
[2024-10-29] MEDS: Ipratropium/Albuterol Sulfate 3 ML AMPUL.NEB INHALATION ×4 (00:41→19:16)
[2024-10-29 01:05] LABS: Hematocrit 33.2 % (40-54); Hemoglobin 10.5 g/dL (13.0-16.5)
--- NOTE | 2024-10-29 04:42 | EKG12_ITS ---
Test Reason : PRE-OP Blood Pressure : */* mmHG Vent. Rate : 89 BPM Atrial Rate : 89 BPM P-R Int : 120 ms QRS Dur : 80 ms QT Int : 392 ms P-R-T Axes : 62 -8 4 degrees QTcB Int : 476 ms Normal sinus rhythm Inferior infarct (cited on or before 19-Mar-2023) Abnormal ECG When compared with ECG of 11-Aug-2024 15:27, Nonspecific T wave abnormality now evident in Inferior leads Confirmed by Roland Martínez ([id number]), editor index THERESA OLIVEIRA ([id number]) on 10/29/2024 9:23:34 AM Referred By: Jose Duff Confirmed By: Roland Martínez
[2024-10-29] MEDS: Albuterol 2.5 MG/3 ML VIAL.NEB. INHALATION ×3 (05:21→22:09)
[2024-10-29] MEDS: Budesonide Respules 0.5 MG/2 ML AMPUL.NEB. INHALATION ×2 (06:52→19:16)
[2024-10-29 08:42] LABS: Absolute Lymphocyte Count 0.68 X10^3/uL (0.83-4.51); Absolute Neutrophil Count 4.6 X10^3/uL (2.0-7.7); Basophil# 0.02 X10^3/uL; Basophil% 0.3 % (0-1); Eosinophil# 0.43 X10^3/uL; Eosinophils% 6.6 % (0-5); Hemoglobin 11.1 g/dL (13.0-16.5); Lymphocyte # 0.68 X10^3/ul (0.83-4.51); Lymphocyte % 10.5 % (19-41); Mean Corp Hgb Conc 31.7 g/dL (32-36); Mean Corpuscular Hgb 28.4 pg (27.0-32.0); Mean Corpuscular Volume 89.5 fL (80-94); Mean Platelet Vol. 9.5 fl (6.2-12.0); Monocyte# 0.68 X10^3/uL; Monocyte% 10.5 % (0-10); NRBC Flagged by Analyzer 0 % (0-5); Neutrophil # 4.62 X10^3/uL (2.7-7.7); Neutrophil % 71.3 % (47-70); Platelet Count 236 K/mm3 (150-450); RBC Distribution Width CV 14.9 % (11.6-14.6); RBC Distribution Width SD 48.8 fl (35.1-43.9); Red Blood Count 3.91 M/mm3 (4.6-6.2); White Blood Count 6.5 K/mm3 (4.4-11.0)
[2024-10-29] MEDS: Pantoprazole Sodium 40 MG in 0.9% Normal Saline (100mL MB+) 100 ML 330 MG IV ×2 (10:01→22:01)
[2024-10-29] MEDS: 0.9% Saline Lock 10 ML Syringe IV ×2 (10:04→22:01)
[2024-10-29 10:51] LABS: Anion Gap 9 (5-15); BUN 12 mg/dL (4-19); Calcium 8.3 mg/dL (7.6-11.0); Carbon Dioxide 22.2 mmol/L (22.0-29.0); Chloride 108 mmol/L (96-108); Creatinine, Serum 0.7 mg/dL (0.8-1.3); EST Glomerular Filtration Rate 104 (>60); Estimated Creatinine Clearance 102.82 ml/min; Glucose 96 mg/dL (70-99); Potassium 3.7 mmol/L (3.3-5.1); Sodium Level 139 mmol/L (133-145)
--- NOTE | 2024-10-29 15:35 | CASEMGMT ---
MARION DAMON Face to Face with patient for initial transition planning/care coordination assessment. RN NELSON introduced self and role at [facility]. Patient lying in bed, alert and oriented. Patient willing to participate in assessment and is able to answer all questions appropriately. Care providers, pharmacy, and demographics verified. Strata: 3 PCP: [facility] Specialists: Jeri Weems, cargo handler; Carmelo, construction equipment technician; Preferred Pharmacy: [facility] [employer] [facility] Benef[facility]: yes Living Will/HPOA: yes, daughter Clarice Andrade LNOK: daughter, son, significant other Living Arrangements: Patient lives with significant other in a duplex with first floor setup. Patient is independent at home. Transportation: significant other DME/HHC: [employer] has shower chair, grab bars, nebulizer, pulse ox, walker, and wheelchair at home. Patient has been to [employer]. Patient is active with [facility]. Follow for home oxygen, prefers [employer]. [facility] Patient states he has no further needs or concerns at this time. CM to follow for discharge planning needs that may arise. Disposition Plan: Patient to discharge home with HHC, family support, and follow-up plans in place. Eliana ESCUDERO, RN, CM
--- NOTE | 2024-10-29 16:42 | EX.PCM.CON.G ---
HPI Consult Data Date of Consult: 10/29/24 HPI Narrative Reason for Consultation: GI bleed HPI Narrative: CHIO DENT, is a 64 M who presents 64 M who presents with vomiting black material. He was doing well in the emergency room and then happen again. They placed an NG tube and were able to get black material. His Hemoccult was negative but his Gastroccult was positive. Concern for that being a GI bleed while he has been recently started on apixaban for VTE. Patient was started on pantoprazole 40 mg in the emergency room IV. Patient be admitted for further GI bleed. Patient denies any history of any GI bleed. Does have some abdominal pain. [facility] Medical History HCAP (healthcare-associated pneumonia) Tracheostomy in place Pneumonia MRSA (methicillin resistant staph aureus) culture positive Chronic neuropathic pain Former smoker Myocardial infarct Foraminal stenosis of cervical region Cervical spondylosis Ribs, multiple fractures Respiratory arrest before cardiac arrest Wears dentures Wears glasses Arthritis History of hiatal hernia Gastric reflux Sleep apnea Hypertension History of echocardiogram History of stress test Cardiology follow-up encounter History of heart attack GERD (gastroesophageal reflux disease) Dysphagia Hypersomnia Bronchiectasis Asthma-COPD overlap syndrome BPH (benign prostatic hyperplasia) Paroxysmal atrial tachycardia Paroxysmal ventricular tachycardia Premature ventricular contraction Atherosclerotic heart disease of [place] coronary artery without angina pectoris Ischemic cardiomyopathy HLD (hyperlipidemia) History of pulmonary embolism Home Medications ?Medication ?Instructions ?Recorded ?Last Taken ?Type atorvastatin 20 mg tablet 20 mg G-tube QHS #1 TAB 08/07/24 Unknown Rx famotidine 20 mg tablet 20 mg G-tube BID #1 TAB 08/07/24 Unknown Rx ferrous sulfate 300 mg (60 mg 300 mg (5 mL) G-tube BREAKFAST #1 08/07/24 Unknown Rx iron)/5 mL oral liquid mL magnesium hydroxide 400 mg/5 mL 30 ml G-tube X1 PRN Constipation 08/07/24 Unknown Rx oral suspension #1 mL montelukast 10 mg tablet 10 mg G-tube DAILY #1 TAB 08/07/24 Unknown Rx multivit and minerals-ferrous 15 ml G-tube DAILYCM #1 mL 08/07/24 Unknown Rx gluconate 9 mg iron/15 mL oral liquid (Multi-William) quetiapine 25 mg tablet 12.5 mg (1/2 x 25 mg) PO 0700 #1 08/07/24 Unknown Rx TAB gabapentin 400 mg capsule 800 mg (2 x 400 mg) PO TID #1 cap 08/10/24 Unknown Rx bupropion HCl 150 mg 24 hr tablet, 150 mg PO BID 08/16/24 Unknown History extended release nutritional supplements 0.07 240 ml PO Q5H PRN low appetite 08/17/24 Unknown History gram-1.5 kcal/mL liquid for tube feed (Nutren 1.5) albuterol sulfate 2.5 mg/3 mL 2.5 mg inhalation Q4H PRN PRN 09/11/24 Unknown History (0.083 %) solution for nebulization wheezing furosemide 40 mg tablet (Lasix) 40 mg PO DAILY 09/11/24 Unknown History ipratropium 0.5 mg-albuterol 3 mg 3 ml inhalation Q6H PRN PRN dyspnea 09/11/24 Unknown History (2.5 mg base)/3 mL nebulization soln lorazepam 0.5 mg tablet (Ativan) 0.5 mg PO Q8H PRN anxiety 09/11/24 Unknown History apixaban 5 mg tablet (Eliquis) 5 mg PO BID #1 TAB 09/12/24 Unknown Rx lidocaine 5 % topical patch 1 patch topical QDAY 10/01/24 Unknown History ketoconazole 2 % topical cream 1 applic topical BID 10/06/24 Unknown History quetiapine 25 mg tablet 25 mg PO QHS 10/06/24 Unknown History magnesium oxide 400 mg PO QDAY 10/15/24 Unknown History fluticasone fur. 200 mcg-umeclid 1 inh inhalation Q24H #60 ea 10/20/24 Unknown Rx 62.5 mcg-vilant 25 mcg inhalat.powder (Trelegy Ellipta) guaifenesin 1,200 mg tablet, 1,200 mg PO BID PRN 10/20/24 Unknown History extended release 12 hr (Mucinex) Allergy/AdvReac Type Severity Reaction Status Date / Time latex Allergy Rash Verified 10/20/24 10:20 varenicline tartrate (From Allergy Hives Verified 10/20/24 10:20 Chantix) aspirin AdvReac Upset Verified 10/20/24 10:20 Stomach Family History Father , age 50 CAD (coronary artery disease) Heart disease Myocardial infarction Mother Diabetes Brother Hypertension Surgical History S/P percutaneous endoscopic gastrostomy (PEG) tube placement History of tracheostomy History of chest tube placement Hx of carpal tunnel repair Hx of angioplasty History of cardiac catheterization History of coronary artery stent placement Hx of shoulder surgery Hx of sinus surgery Hx of nasal sinusotomy Hx of cystoscopy Hx of tonsillectomy History of thumb surgery Hx of right knee surgery Presence of coronary angioplasty implant and graft (~06/27/08) History of hernia repair Social History household members: significant other and children Smoking Status: Former smoker alcohol intake: never substance use type: does not use caffeine: Yes Type: coffee Number of servings: 3 what type of physical activity do you participate in: walking frequency: daily duration: 45-60 minutes/day seatbelt use: always do you feel safe at home: Yes ROS Constitutional Constitutional: Denies fatigue, fever(s), poor appetite, weight gain or weight loss Gastrointestinal Gastrointestinal: Denies belching, bloating, change in bowel habits, change in stool character, chewing difficulty, coffee ground emesis, constipation, cramping, diarrhea, dyspepsia, dysphagia, early satiety, excessive flatus, fecal incontinence, heartburn, hematemesis, hematochezia, hemorrhoids, loose stools, melena, nausea, odynophagia, rectal bleeding, tenesmus, vomiting or weight changes Physical Exam Narrative General: Alert, Oriented x3, Cooperative, No apparent distress HEENT: Atraumatic, PERRLA, EOMI, Normocephalic, NG tube with coffee-ground output Oral: Moist Mucosa Neck: Supple, No JVD Lungs: Diminished, Normal air movement, No rhonchi, No wheeze, No rales Cardiovascular: Regular rate, Regular Rhythm, Normal S1, Normal S2, No murmurs Abdomen: Soft, Non Tender, Non-Distended, No Hepato-splenomegaly Extremities: No edema, Capillary Refill Less than 3 Seconds Skin: No rashes, No breakdown Musculoskeletal: No Tenderness to Palpation of Joints or Extremities Neurological: No focal neurological deficits, Motor Exam 5/5 strength throughout, Sensory exam intact to light touch and pain Psych/Mental Status: Normal Affect, Appropriate Lab / Micro Data 10/30/24 06:12 10/30/24 06:12 Labs: Laboratory Results - last 24 hr 10/30/24 06:12: WBC 6.6, RBC 3.87 L, Hgb 10.5 L, Hct 33.6 L, MCV 86.8, MCH 27.1, MCHC 31.3 L, RDW Std Deviation 46.2 H, RDW Coeff of [place] 14.5, Plt Count 259, MPV 9.5, Immature Gran % (Auto) 0.600, Neut % (Auto) 69.9, Lymph % (Auto) 10.7 L, [place] % (Auto) 12.0 H, Eos % (Auto) 6.5 H, Baso % (Auto) 0.3, Absolute Neuts (auto) 4.6, Absolute Lymphs (auto) 0.71 L, Nucleated RBC % 0, PT 15.3 H, INR 1.2, APTT 36.5 H, Sodium 138, Potassium 3.4, Chloride Direct 106, Carbon Dioxide 21.3 L, Anion Gap 11, BUN 10, Creatinine 0.66 L, Estim Creat Clear Calc 109.05, Est GFR (MDRD) Non-Af 105, BUN/Creatinine Ratio 14.3, Glucose 97, Calcium 8.3, Troponin T High Sens 1025 H* 10/30/24 08:35: Troponin T Hi Sens 2 Hr 991 H*, Troponin T Hi Sens 2Hr Delta 34 10/30/24 12:14: Troponin T Hi Sens 4Hr 901 H*, Troponin T Hi Sens 4Hr Delta 124 Assessment & Plan Assessment/Plan (1) Acute upper GI bleeding: PLAN: 64-year-old with history of intubation status post extubation with trach and PEG tube. Presents with black material that was vomited up and was Gastroccult positive. Patient has since been started on the IV pantoprazole and will continue on the floor. Agree with hold off on his apixaban for now. Check serial H&H. Currently his hemoglobin is stable. He was explained alternatives, risk and benefits include not withstanding bleeding, infection, sepsis, perforation, need for more charge and . He will have an ASA of 3. Charges/Coding Visit Charges Inpatient E&M: 64941 Init Hosp L3
[2024-10-29] MEDS: Sodium Chloride 0.65% 1 SPRAY SPRAY.BTL 2 SPRAY NASAL (16:46)
--- NOTE | 2024-10-29 16:58 | CASEMGMT ---
Discharge Planning HH resumption referral sent to [facility]. Viviana Miles DC Planning Asst
--- NOTE | 2024-10-29 18:24 | PN.HOSP_ITS ---
Subjective Subjective No issues overnight, NG tube in place. Does not appear to have a significant GI bleed as his hemoglobin is stable from September Objective Data Objective Data Vital Signs: Vital Signs Temp Pulse Resp BP Pulse Ox O2 Del Method O2 Flow Rate 97.8 F 90 18 119/72 96 Nasal Cannula 2 10/29/24 16:43 10/29/24 16:43 10/29/24 16:43 10/29/24 16:43 10/29/24 16:43 10/29/24 16:43 10/29/24 16:43 Oxygen Flow Rate (L/min) 2 Oxygen Delivery Method Nasal Cannula Weight: 148 lb 5.938 oz Body Mass Index (BMI) 22.5 Intake & Output: Intake and Output for Last 24 Hours 10/28/24 10/29/24 10/30/24 03:59 03:59 03:59 Intake Total 1250 / 1250 1140 / 1140 Output Total 600 / 600 1425 / 1425 Balance 650 / 650 -285 / -285 Lab / Micro Data 10/29/24 07:55 10/29/24 07:55 Labs: Laboratory Results - last 24 hr 10/28/24 19:27: Hgb 11.2 L, Hct 35.4 L 10/29/24 00:52: Hgb 10.5 L, Hct 33.2 L 10/29/24 07:55: WBC 6.5, RBC 3.91 L, Hgb 11.1 L, Hct 35.0 L, MCV 89.5, MCH 28.4, MCHC 31.7 L, RDW Std Deviation 48.8 H, RDW Coeff of [place] 14.9 H, Plt Count 236, MPV 9.5, Immature Gran % (Auto) 0.800, Neut % (Auto) 71.3 H, Lymph % (Auto) 10.5 L, [place] % (Auto) 10.5 H, Eos % (Auto) 6.6 H, Baso % (Auto) 0.3, Absolute Neuts (auto) 4.6, Absolute Lymphs (auto) 0.68 L, Nucleated RBC % 0, Sodium 139, Potassium 3.7, Chloride Direct 108, Carbon Dioxide 22.2, Anion Gap 9, BUN 12, C reatinine 0.7 L, Estim Creat Clear Calc 102.82, Est GFR (MDRD) Non-Af 104, BUN/Creatinine Ratio 18.0, Glucose 96, Calcium 8.3 Micro: Microbiology 10/28/24 16:12 Gastric Fluid/Contents Gastric Occult Blood - Final Occult Blood Positive 10/28/24 12:51 Stool Stool Occult Blood (BERTHA) - Final Physical Exam Narrative General: Alert, Oriented x3, Cooperative, No apparent distress HEENT: Atraumatic, PERRLA, EOMI, Normocephalic, NG tube with coffee-ground output Oral: Moist Mucosa Neck: Supple, No JVD Lungs: Diminished, Normal air movement, No rhonchi, No wheeze, No rales Cardiovascular: Regular rate, Regular Rhythm, Normal S1, Normal S2, No murmurs Abdomen: Soft, Non Tender, Non-Distended, No Hepato-splenomegaly Extremities: No edema, Capillary Refill Less than 3 Seconds Skin: No rashes, No breakdown Musculoskeletal: No Tenderness to Palpation of Joints or Extremities Neurological: No focal neurological deficits, Motor Exam 5/5 strength throughout, Sensory exam intact to light touch and pain Psych/Mental Status: Normal Affect, Appropriate Assessment & Plan Assessment/Plan (1) Acute upper GI bleeding: PLAN: Plan 1. Acute upper GI bleed ? At significant or severe anemia at this time ? Continue with Protonix ? Awaiting EGD ? NG tube in place, gastric occult was positive for blood 2. Recent pulmonary embolisms ? He had pulmonary embolism diagnosed in August 2024 ? Hold Eliquis given GI bleed ? He recently had a tracheostomy decannulation which he is tolerating well 3. Essential HTN/HLD/ischemic cardiomyopathy ? Echo in 2019 with an EF of 65% and normal diastolic function ? Awaiting for medications to be verified ? Can continue with blood pressure medications and cholesterol medications as indicated when verified 4. COPD with bronchiectasis ? Not in exacerbation currently ? Continue with budesonide inhaler as well as DuoNeb DVT: SCDs Charges/Coding Visit Charges Inpatient E&M: 31633 Subs Hosp L2
[2024-10-30] VITALS (17 sets, daily range): BP systolic 84–124; BP diastolic 65–75; PULSE 74–94; RESP 16–26; TEMP 36.4–36.9; O2SAT 89–100; BMI 22.5
[2024-10-30] MEDS: Ipratropium/Albuterol Sulfate 3 ML AMPUL.NEB INHALATION ×4 (02:51→18:05)
--- NOTE | 2024-10-30 05:28 | EKG12_ITS ---
Test Reason : CP Blood Pressure : */* mmHG Vent. Rate : 77 BPM Atrial Rate : 77 BPM P-R Int : 120 ms QRS Dur : 82 ms QT Int : 406 ms P-R-T Axes : 64 -3 18 degrees QTcB Int : 459 ms Normal sinus rhythm Inferior infarct (cited on or before 19-Mar-2023) Abnormal ECG When compared with ECG of 29-Oct-2024 05:26, No significant change was found Confirmed by Roland Martínez ([id number]), film or videotape editor THERESA OLIVEIRA ([id number]) on 10/30/2024 9:42:42 AM Referred By: Jose Duff Confirmed By: Roland Martínez
[2024-10-30 06:44] LABS: Absolute Lymphocyte Count 0.71 X10^3/uL (0.83-4.51); Absolute Neutrophil Count 4.6 X10^3/uL (2.0-7.7); Basophil# 0.02 X10^3/uL; Basophil% 0.3 % (0-1); Eosinophil# 0.43 X10^3/uL; Eosinophils% 6.5 % (0-5); Hematocrit 33.6 % (40-54); Hemoglobin 10.5 g/dL (13.0-16.5); Lymphocyte # 0.71 X10^3/ul (0.83-4.51); Lymphocyte % 10.7 % (19-41); Mean Corp Hgb Conc 31.3 g/dL (32-36); Mean Corpuscular Hgb 27.1 pg (27.0-32.0); Mean Corpuscular Volume 86.8 fL (80-94); Mean Platelet Vol. 9.5 fl (6.2-12.0); NRBC Flagged by Analyzer 0 % (0-5); Neutrophil # 4.64 X10^3/uL (2.7-7.7); Neutrophil % 69.9 % (47-70); Platelet Count 259 K/mm3 (150-450); RBC Distribution Width CV 14.5 % (11.6-14.6); RBC Distribution Width SD 46.2 fl (35.1-43.9); Red Blood Count 3.87 M/mm3 (4.6-6.2); White Blood Count 6.6 K/mm3 (4.4-11.0)
[2024-10-30 06:57] LABS: International Normalized Ratio 1.2; Prothrombin Time (Protime)PT. 15.3 SECONDS (11.7-14.9)
[2024-10-30 06:58] LABS: Partial Thromboplast Time 36.5 Seconds (24.1-36.2)
[2024-10-30 07:06] LABS: Anion Gap 11 (5-15); BUN 10 mg/dL (4-19); BUN/Creat Ratio 14.3 RATIO (10-20); Calcium 8.3 mg/dL (7.6-11.0); Carbon Dioxide 21.3 mmol/L (22.0-29.0); Chloride 106 mmol/L (96-108); Creatinine, Serum 0.66 mg/dL (0.70-1.20); EST Glomerular Filtration Rate 105 (>60); Estimated Creatinine Clearance 109.05 ml/min; Glucose 97 mg/dL (70-99); Potassium 3.4 mmol/L (3.3-5.1); Sodium Level 138 mmol/L (133-145)
[2024-10-30 07:17] LABS: Troponin T High Sensitivity 1025 ng/L (<=22)
[2024-10-30] MEDS: Budesonide Respules 0.5 MG/2 ML AMPUL.NEB. INHALATION ×2 (07:25→20:02)
[2024-10-30 09:43] LABS: TROPONIN VARIANCE 2 HR 34; Troponin T High Sens 2 HR 991 ng/L (<=22)
[2024-10-30] MEDS: Pantoprazole Sodium 40 MG in 0.9% Normal Saline (100mL MB+) 100 ML 330 MG IV ×2 (09:45→22:03)
[2024-10-30 13:40] LABS: TROPONIN VARIANCE 4 HR 124; Troponin T High Sens 4 HR 901 ng/L (<=22)
--- NOTE | 2024-10-30 14:15 | CHAPLAIN ---
Type of Pastoral Visit _x__ Initial Visit ___ Follow-up Visit ___ On-call Visit ___ General Patient Visit ___ Spiritual Assessment ___ Family Conference ___ Bereavement ___ Rapid Response ___ Code Blue ___ Other (describe below) Pastoral Care Referral From ___ Patient _x__ Family ___ Nurse ___ Physician ___ Steam Table Worker ___ Bosom Presser ___ Other (describe below) Sacrament/Intervention _x__ Active listening ___ Anointing ___ Restorationist ___ Bereavement ___ Communion _x__ Ritika exploration ___ _x__ Life review _x__ Prayer ___ Reconciliation ___ Sacrament of Sick _x__ Supportive presence ___ Wedding ___ Other (describe below) Pastoral Comments patient has been seen before; today the pt is lying down and quiet in the bed; pt is remembered from previous admissions to the hospital; however today that pt is very quiet and almost lethargic; spouse is at the bedside and does most of the talking; even when the pt is addressed with questions the spouse answers the questions for him; spouse says that pt is anxious and depressed after many months waiting to get home; offer of prayer given and the patient begins to cry; offer of support given again and to address his needs; pt is quiet for awhile; spouse speaks up again and says that he is just so tired and hasn;t recieved his normal meds wwhich keep him unil later in the day;
--- NOTE | 2024-10-30 16:45 | PN_ITS ---
Progress Note Patient has not had any more vomiting of blood. He has had NG tube in. The NG tube is starting to clear. Physical Exam Narrative General: Alert, Oriented x3, Cooperative, No apparent distress HEENT: Atraumatic, PERRLA, EOMI, Normocephalic, NG tube with coffee-ground outpu t Oral: Moist Mucosa Neck: Supple, No JVD Lungs: Diminished, Normal air movement, No rhonchi, No wheeze, No rales Cardiovascular: Regular rate, Regular Rhythm, Normal S1, Normal S2, No murmurs Abdomen: Soft, Non Tender, Non-Distended, No Hepato-splenomegaly Extremities: No edema, Capillary Refill Less than 3 Seconds Skin: No rashes, No breakdown Musculoskeletal: No Tenderness to Palpation of Joints or Extremities Neurological: No focal neurological deficits, Motor Exam 5/5 strength throughout, Sensory exam intact to light touch and pain Psych/Mental Status: Normal Affect, Appropriate Assessment & Plan Assessment/Plan (1) Acute upper GI bleeding: PLAN: 64-year-old with history of intubation status post extubation with trach and PEG tube. Presents with black material that was vomited up and was Gastroccult positive. Patient has since been started on the IV pantoprazole and will continue on the floor. Agree with hold off on his apixaban for now. Check serial H&H. Currently his hemoglobin is stable. He was explained alternatives, risk and benefits include not withstanding bleeding, infection, sepsis, perf oration, need for more charge and . He will have an ASA of 3. Visit Charges Inpatient E&M: 53241 Subs Hosp L2
--- NOTE | 2024-10-30 17:26 | PCM.PRE.AN2 ---
ASA Classification* ASA Classification ASA Classification: 3 Assessment & Plan Anesthesia* Anesthesia Assessment Anesthesia Assessment: Discussed sedation and/or anesthesia options, risks, benefits, and alternatives with patient/parents/legal guardian/POA. Questions invited. The patient/parents/legal guardian/POA seems to understand and agrees to proceed with anesthesia plan. Reviewed the physical assessment, medical history, allergy history and patient home medications list prior to surgery/procedure/anesthetic and documented any changes. Performed airway and anesthesia risk assessments. Anesthesia Type Anesthesia Type: MAC History Source History Obtained from:: Patient and Chart Anesthesia Focused Assessment* Temperature: 98 F Pulse Rate: 82 Blood Pressure: 117/75 Respiratory Rate: 18 Pulse Ox: 99 Oxygen Delivery Method: Nasal Cannula Oxygen Flow Rate (L/min): 2 Airway Assessment Mouth opens: >3 cm Mallampati Score: I Teeth Condition: Intact Neck Range of motion (ROM): Limited ROM Focused Labs Anesthesia Preop lab: CBC WBC 6.6 K/mm3 (4.4-11.0) 10/30/24 06:12 10/30/24 RBC 3.87 M/mm3 (4.6-6.2) L 10/30/24 06:12 10/30/24 Hgb 10.5 g/dL (13.0-16.5) L 10/30/24 06:12 10/30/24 Hct 33.6 % (40-54) L 10/30/24 06:12 10/30/24 Plt Count 259 K/mm3 (150-450) 10/30/24 06:12 10/30/24 CHEMISTRY Potassium 3.4 mmol/L (3.3-5.1) 10/30/24 06:12 10/30/24 Sodium 138 mmol/L (133-145) 10/30/24 06:12 10/30/24 Magnesium 1.7 mg/dL (1.6-2.6) 09/11/24 14:55 09/11/24 Phosphorus 3.8 mg/dL (2.5-4.9) 09/11/24 14:55 09/11/24 BUN 10 mg/dL (4-19) 10/30/24 06:12 10/30/24 Creatinine 0.66 mg/dL (0.70-1.20) L 10/30/24 06:12 10/30/24 Glucose 97 mg/dL (70-99) 10/30/24 06:12 10/30/24 POC Glucose 122 mg/dL (74-106) H 08/03/24 06:25 08/03/24 TSH 0.44 uIU/mL (0.358-3.74) 12/07/14 07:30 12/07/14 COAG PT 15.3 SECONDS (11.7-14.9) H 10/30/24 06:12 10/30/24 Pre-Assessment Diagnosis/Proposed Procedure Planned Operative Procedure(s): EGD with biopsy Anesthesia History Anesthesia History - reconciliation clerk: Anesthesia History - reconciliation clerk Hx Hospitalization Yes: [facility] 11/28/22 08:47 LIFE SUPPORT FOR COPD Any Problems With Anesthesia No 10/30/24 09:00 Cholinesterase deficiency No 10/30/24 09:00 You/Your Family Experience No 10/30/24 09:00 fever (hyperthermia) with Relationship Recent Exposure to Contagious No 10/30/24 09:00 Disease Does patient have nerve No 10/30/24 09:00 stimulator Patient instructed to have N/A 10/30/24 09:00 device shut off --Does patient have Pacemaker No 10/30/24 05:29 or ICD? When Was Last Pacemaker Check QUESTION #4 FULL TEXT: You/Your Family Experience fever (hyperthermia) with Anesthesia Last Oral Intake Last Oral intake: Last Oral Intake NPO since 00:00 10/30/24 05:29 Meds taken in AM with sips of No 10/30/24 05:29 water? 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 - reconciliation clerk: PONV - reconciliation clerk Female HX of Motion Sickness HX of N/V After Surgery Non-Smoker Duration of Surgery greater than 60 minutes Number of Risk Factors PONV Score Height & Weight Height & Weight: Anesthesia: Height & Weight Height 5 ft 8 in 10/30/24 05:29 Weight: 67.3 kg 10/30/24 05:29 Body Mass Index (BMI) 22.5 10/30/24 05:29 Respiratory Assessment Respiratory Assessment - reconciliation clerk: Respiratory Tract Infection Hx - reconciliation clerk Hx Respiratory Tract Infection No 10/30/24 09:00 STOP Sleep Apnea STOP Sleep Apnea - reconciliation clerk: STOP Sleep Apnea - reconciliation clerk Hx Hypertension Yes 10/28/24 18:43 Hx Sleep Apnea No 10/28/24 18:43 CPAP Yes 09/11/24 15:50 BIPAP No 09/11/24 15:50 Do you snore loudly (louder No 10/28/24 18:43 than talking or can be heard Do you often feel tired/ No 10/28/24 18:43 fatigued/ sleepy during daytime? Has anyone observed you stop No 10/28/24 18:43 breathing during sleep? STOP Results Negative 10/28/24 18:43 QUESTION #5 FULL TEXT : Do you snore loudly (louder than talking or can be heard through closed doors)? Tobacco Use History Tobacco Use History - reconciliation clerk: Tobacco Use History - reconciliation clerk Tobacco Use Smoking Status Former smoker 10/28/24 19:35 Hx Tobacco Use Yes 10/28/24 18:43 Years Smoking Packs Smoked per Day Smoking Cessation Date was Yes - quit smoking within 15 10/28/24 18:43 within the last 15 years years Hx Smoking Cessation Date 06/13/24 10/28/24 18:43 Hx Smoking Cessation No 10/28/24 18:43 Counseling Hematologic Medial History Hematologic Hx - reconciliation clerk: Hematologic Medical Hx - caul dresser Hx of Blood Transfusion No 10/28/24 18:43 Hx of Transfusion in last 3 No 10/28/24 18:43 Months Date of Last Transfusion (if within last 3 months) Ever experience any problems No 10/28/24 18:43 with transfusion(s)? Specify any problems Hx of Preganancy in last 3 N/A 10/28/24 18:43 Months Nurse Filling Out Transfusion NBILANCIN 10/28/24 18:43 & Questions: Date: 10/28/24 10/28/24 18:43 Time: 18:47 10/28/24 18:43 Patient unable to answer at this time (ie. confused, unrespo /Reproduction History /Reproductive History - reconciliation clerk: /Reproductive Hx- reconciliation clerk Hx Now No 10/30/24 09:00 Gestational Age (in weeks): EDC: Hx Hx Para Hx Section SAB No 10/30/24 09:00 Active Medications Active Medications: Current Medications Generic Name Dose Route Start Last Admin Trade Name Freq PRN Reason Stop Dose Admin Acetaminophen 650 mg 10/28/24 18:38 Acetaminophen 325 Mg Tablet PO Q6H PRN PRN Pain 1-10 Or Fever >100.7 Albuterol Sulfate 2.5 mg 10/28/24 18:38 10/29/24 22:09 Albuterol 2.5 Mg/3 Ml Vial.Neb. INHALATION 2.5 mg Q4H PRN PRN Administration wheezing Albuterol/Ipratropium 3 ml 10/28/24 19:00 10/30/24 12:51 Ipratropium/Albuterol Sulfate 3 Ml Ampul.Neb INHALATION 3 ml Q6HWA.RT LAYLA Administration Budesonide 0.5 mg 10/28/24 19:00 10/30/24 07:25 Budesonide Respules 0.5 Mg/2 Ml Ampul.Neb. INHALATION 0.5 mg Q12H.RT LAYLA Administration Pantoprazole Sodium 40 mg/ 110 mls @ 330 mls/hr 10/28/24 22:00 10/30/24 10:10 Sodium Chloride IV Infused Q12 LAYLA Infusion Lorazepam 0.5 mg 10/28/24 18:38 Lorazepam 0.5 Mg Tablet PO Q8H PRN anxiety Ondansetron HCl 4 mg 10/28/24 18:38 Ondansetron 4 Mg/2 Ml Vial IV Q8H PRN PRN NAUSEA/VOMITING Sodium Chloride 10 - 40 ml 10/28/24 18:54 10/29/24 22:01 0.9% Saline Lock 10 Ml Syringe IV 10 ml UD PRN Administration SALINE FLUSH Sodium Chloride 2 spray 10/29/24 14:48 10/29/24 16:46 Sodium Chloride 0.65% 1 Mcmechen Mcmechen.Btl NASAL 2 spray TID PRN PRN Administration NASAL DRYNESS PFSH Medical History HCAP (healthcare-associated pneumonia) Tracheostomy in place Pneumonia MRSA (methicillin resistant staph aureus) culture positive Chronic neuropathic pain Former smoker Myocardial infarct Foraminal stenosis of cervical region Cervical spondylosis Ribs, multiple fractures Respiratory arrest before cardiac arrest Wears dentures Wears glasses Arthritis History of hiatal hernia Gastric reflux Sleep apnea Hypertension History of echocardiogram History of stress test Cardiology follow-up encounter History of heart attack GERD (gastroesophageal reflux disease) Dysphagia Hypersomnia Bronchiectasis Asthma-COPD overlap syndrome BPH (benign prostatic hyperplasia) Paroxysmal atrial tachycardia Paroxysmal ventricular tachycardia Premature ventricular contraction Atherosclerotic heart disease of [place] coronary artery without angina pectoris Ischemic cardiomyopathy HLD (hyperlipidemia) History of pulmonary embolism Home Medications ?Medication ?Instructions ?Recorded ?Last Taken ?Type atorvastatin 20 mg tablet 20 mg G-tube QHS #1 TAB 08/07/24 Unknown Rx famotidine 20 mg tablet 20 mg G-tube BID #1 TAB 08/07/24 Unknown Rx ferrous sulfate 300 mg (60 mg 300 mg (5 mL) G-tube BREAKFAST #1 08/07/24 Unknown Rx iron)/5 mL oral liquid mL magnesium hydroxide 400 mg/5 mL 30 ml G-tube X1 PRN Constipation 08/07/24 Unknown Rx oral suspension #1 mL montelukast 10 mg tablet 10 mg G-tube DAILY #1 TAB 08/07/24 Unknown Rx multivit and minerals-ferrous 15 ml G-tube DAILYCM #1 mL 08/07/24 Unknown Rx gluconate 9 mg iron/15 mL oral liquid (Multi-William) quetiapine 25 mg tablet 12.5 mg (1/2 x 25 mg) PO 0700 #1 08/07/24 Unknown Rx TAB gabapentin 400 mg capsule 800 mg (2 x 400 mg) PO TID #1 cap 08/10/24 Unknown Rx bupropion HCl 150 mg 24 hr tablet, 150 mg PO BID 08/16/24 Unknown History extended release nutritional supplements 0.07 240 ml PO Q5H PRN low appetite 08/17/24 Unknown History gram-1.5 kcal/mL liquid for tube feed (Nutren 1.5) albuterol sulfate 2.5 mg/3 mL 2.5 mg inhalation Q4H PRN PRN 09/11/24 Unknown History (0.083 %) solution for nebulization wheezing furosemide 40 mg tablet (Lasix) 40 mg PO DAILY 09/11/24 Unknown History ipratropium 0.5 mg-albuterol 3 mg 3 ml inhalation Q6H PRN PRN dyspnea 09/11/24 Unknown History (2.5 mg base)/3 mL nebulization soln lorazepam 0.5 mg tablet (Ativan) 0.5 mg PO Q8H PRN anxiety 09/11/24 Unknown History apixaban 5 mg tablet (Eliquis) 5 mg PO BID #1 TAB 09/12/24 Unknown Rx lidocaine 5 % topical patch 1 patch topical QDAY 10/01/24 Unknown History ketoconazole 2 % topical cream 1 applic topical BID 10/06/24 Unknown History quetiapine 25 mg tablet 25 mg PO QHS 10/06/24 Unknown History magnesium oxide 400 mg PO QDAY 10/15/24 Unknown History fluticasone fur. 200 mcg-umeclid 1 inh inhalation Q24H #60 ea 10/20/24 Unknown Rx 62.5 mcg-vilant 25 mcg inhalat.powder (Trelegy Ellipta) guaifenesin 1,200 mg tablet, 1,200 mg PO BID PRN 10/20/24 Unknown History extended release 12 hr (Mucinex) Allergy/AdvReac Type Severity Reaction Status Date / Time latex Allergy Rash Verified 10/20/24 10:20 varenicline tartrate (From Allergy Hives Verified 10/20/24 10:20 Chantix) aspirin AdvReac Upset Verified 10/20/24 10:20 Stomach Family History Father , age 50 CAD (coronary artery disease) Heart disease Myocardial infarction Mother Diabetes Brother Hypertension Surgical History S/P percutaneous endoscopic gastrostomy (PEG) tube placement History of tracheostomy History of chest tube placement Hx of carpal tunnel repair Hx of angioplasty History of cardiac catheterization History of coronary artery stent placement Hx of shoulder surgery Hx of sinus surgery Hx of nasal sinusotomy Hx of cystoscopy Hx of tonsillectomy History of thumb surgery Hx of right knee surgery Presence of coronary angioplasty implant and graft (~06/27/08) History of hernia repair Social History household members: significant other and children Smoking Status: Former smoker alcohol intake: never substance use type: does not use caffeine: Yes Type: coffee Number of servings: 3 what type of physical activity do you participate in: walking frequency: daily duration: 45-60 minutes/day seatbelt use: always do you feel safe at home: Yes Review of Systems (Anesthesia) ROS Narrative System reviewed and no additional complaints, except as documented.
[2024-10-30] MEDS: Bacitracin 500 UNITS/GM PACKET (17:49)
--- NOTE | 2024-10-30 17:56 | OP.EGD_ITS ---
Patient Name: Panchito Lima Procedure Date: 10/30/2024 5:14 PM Date of : 1960 Age: 64 Procedure: Upper GI endoscopy Indications: Hematemesis, Remove PEG-J tube (no longer needed) Providers: David Jackson DO Referring MD: Jose Duff Md Medicines: Monitored Anesthesia Care Patient Profile: This is a 64 year old male. Refer to note in patient chart for documentation of history and physical. Patient has symptoms of acute epigastric abdominal pain, acute dyspepsia and acute vomiting. Complications: No immediate complications. Procedure: Pre-Anesthesia Assessment: - Prior to the procedure, a History and Physical was performed, and patient medications and allergies were reviewed. The patient is competent. The risks and benefits of the procedure and the sedation options and risks were discussed with the patient. All questions were answered and informed consent was obtained. Patient identification and proposed procedure were verified by the physician in the pre-procedure area. Mental Status Examination: alert and oriented. Airway Examination: normal oropharyngeal airway and neck mobility. Respiratory Examination: clear to auscultation. CV Examination: normal. Prophylactic Antibiotics: The patient does not require prophylactic antibiotics. Prior Anticoagulants: The patient has taken no anticoagulant or antiplatelet agents. ASA Grade Assessment: II - A patient with mild systemic disease. After reviewing the risks and benefits, the patient was deemed in satisfactory condition to undergo the procedure. The anesthesia plan was to use monitored anesthesia care (MAC). Immediately prior to administration of medications, the patient was re-assessed for adequacy to receive sedatives. The heart rate, respiratory rate, oxygen saturations, blood pressure, adequacy of pulmonary ventilation, and response to care were monitored throughout the procedure. The physical status of the patient was re-assessed after the procedure. After obtaining informed consent, the endoscope was passed under direct vision. Throughout the procedure, the patient's blood pressure, pulse, and oxygen saturations were monitored continuously. The gastroscope was introduced through the mouth, and advanced to the second part of duodenum. The upper GI endoscopy was accomplished without difficulty. The patient tolerated the procedure well. Scope In: 5:40:11 PM Scope Out: 5:47:45 PM Total Procedure Duration Time 0 hours 7 minutes 34 seconds Findings: LA Grade D (one or more mucosal breaks involving at least 75% of esophageal circumference) esophagitis with bleeding was found 35 to 41 cm from the incisors. Coagulation for hemostasis using heater probe was successful. Estimated blood loss was minimal. Many oozing cratered gastric ulcers with pigmented material were found on the lesser curvature of the stomach. The largest lesion was 20 mm in largest dimension. Coagulation for hemostasis using heater probe was successful. Estimated blood loss was minimal. There was evidence of an intact gastrostomy with a patent G-tube present in the gastric body. This was characterized by healthy appearing mucosa. The PEG required removal because it was no longer necessary. The PEG was cut externally, grasped, and removed with the scope. Removal was easily accomplished. Diffuse mildly erythematous mucosa without active bleeding and with no stigmata of bleeding was found in the second portion of the duodenum. Impression: - LA Grade D non-erosive esophagitis with bleeding. Treated with a heater probe. - Oozing gastric ulcers with pigmented material. Treated with a heater probe. - Intact gastrostomy with a patent G-tube present characterized by healthy appearing mucosa. - Erythematous duodenopathy. - The PEG was cut externally, grasped, and removed with the scope because it was no longer necessary. - No specimens collected. Recommendation: - Return patient to [facility] for ongoing care. - Clear liquid diet today. - Use Protonix (pantoprazole) 40 mg PO BID for 12 weeks. - Continue present medications. Procedure Code(s): --- Professional --- 18956, 59, Esophagogastroduodenoscopy, flexible, transoral; with control of bleeding, any method 75170, 51, Esophagogastroduodenoscopy, flexible, transoral; with removal of foreign body(s) CPT copyright 2021 [employer]. All rights reserved. The codes documented in this report are preliminary and upon private duty aide review may be revised to meet current compliance requirements. David Jackson DO 10/30/2024 5:55:45 PM This report has been signed electronically. Number of Addenda: 0 Note Initiated On: 10/30/2024 5:14 PM
--- NOTE | 2024-10-30 17:56 | OP.CCLET_ITS ---
10/30/2024 Alexey Mayberry [address] [place] [address] Re : Upper GI endoscopy procedure for Panchito Lima Dear Dr. Mayberry This procedure was performed on Wednesday, October 30, 2024. My impressions and recommendations are as follows: Impressions : - LA Grade D non-erosive esophagitis with bleeding. Treated with a heater probe. - Oozing gastric ulcers with pigmented material. Treated with a heater probe. - Intact gastrostomy with a patent G-tube present characterized by healthy appearing mucosa. - Erythematous duodenopathy. - The PEG was cut externally, grasped, and removed with the scope because it was no longer necessary. - No specimens collected. Recommendations : - Return patient to [facility] for ongoing care. - Clear liquid diet today. - Use Protonix (pantoprazole) 40 mg PO BID for 12 weeks. - Continue present medications. My findings are described in the full procedure note, which is enclosed. If I can be of further assistance, please feel free to contact me at . Sincerely, David Jackson, 10/30/2024 5:55:45 PM This report has been signed electronically.
--- NOTE | 2024-10-30 17:56 | PCM.POST.ANE ---
Anesthesia: Postop Eval I Current Vital Signs Temperature: 98.5 F Pulse Rate: 94 Blood Pressure: 103/72 Respiratory Rate: 16 Pulse Ox: 93 Oxygen Delivery Method: Nasal Cannula Oxygen Flow Rate (L/min): 2 Assessment Airway patent: Yes Spontaneous unlabored respirations: Yes Mental status: Awake and Calm nausea: No Vomiting: No Anesthesia Complication: No Fluid Hydration Crystalloid volume administer (ml): 10 Total IV fluid infused: 10 Progress Note Anesthesia document: Postop Eval 1 completed: Yes
--- NOTE | 2024-10-30 18:08 | SUR.PHASEI ---
lungs cta after breathing treatment by respiratory in pacu
--- NOTE | 2024-10-30 18:35 | PCM.POSTANE2 ---
Anesthesia Postop Eval I Sum Postop Eval Completion status Anesthesia document: Postop Eval 1 completed: Yes Anesthesia Postop Eval I Summary Anesthesia Postop Eval I Summary: Anesthesia Postop Eval I: Assessment Summary Airway patent Yes 10/30/24 17:59 Spontaneous unlabored Yes 10/30/24 17:59 respirations Mental status Awake,Calm 10/30/24 17:59 nausea No 10/30/24 17:59 Vomiting No 10/30/24 17:59 Anesthesia Postop Eval I: Fluid Summary Crystalloid volume administer 10 10/30/24 17:59 (ml) Colloids volume administered ( ml) Blood Product volume administered (ml) Total IV fluid infused 10 10/30/24 17:59 Anesthesia Postop Eval I: Summary Notes Anesthesia Complication No 10/30/24 17:59 Anesthesia Complication Comment: Post-operative progress note Anesthesia: Postop Eval II Evaluation Mental status: Awake and Calm Pain Level: 0 nausea: No Vomiting: No Complications Anesthesia Complication: No
--- NOTE | 2024-10-30 20:31 | PN.HOSP_ITS ---
Subjective Subjective Doing well, no issues overnight. Awaiting EGD Objective Data Objective Data Vital Signs: Vital Signs Temp Pulse Resp BP Pulse Ox O2 Del Method O2 Flow Rate 98.1 F 80 18 105/65 98 Nasal Cannula 2 10/30/24 18:22 10/30/24 18:22 10/30/24 18:22 10/30/24 18:22 10/30/24 18:22 10/30/24 18:22 10/30/24 18:22 Oxygen Flow Rate (L/min) 2 Oxygen Delivery Method Nasal Cannula Weight: 148 lb 5.938 oz Body Mass Index (BMI) 22.5 Intake & Output: Intake and Output for Last 24 Hours 10/29/24 10/30/24 10/31/24 03:59 03:59 03:59 Intake Total 1250 / 1250 1620 / 1620 110 / 110 Output Total 600 / 600 1800 / 1800 100 / 100 Balance 650 / 650 -180 / -180 Lab / Micro Data 10/31/24 05:58 10/30/24 06:12 Labs: Laboratory Results - last 24 hr 10/30/24 06:12: WBC 6.6, RBC 3.87 L, Hgb 10.5 L, Hct 33.6 L, MCV 86.8, MCH 27.1, MCHC 31.3 L, RDW Std Deviation 46.2 H, RDW Coeff of [place] 14.5, Plt Count 259, MPV 9.5, Immature Gran % (Auto) 0.600, Neut % (Auto) 69.9, Lymph % (Auto) 10.7 L, M aruna % (Auto) 12.0 H, Eos % (Auto) 6.5 H, Baso % (Auto) 0.3, Absolute Neuts (auto) 4.6, Absolute Lymphs (auto) 0.71 L, Nucleated RBC % 0, PT 15.3 H, INR 1.2, APTT 36.5 H, Sodium 138, Potassium 3.4, Chloride Direct 106, Carbon Dioxide 21.3 L, Anion Gap 11, BUN 10, Creatinine 0.66 L, Estim Creat Clear Calc 109.05, Est GFR (MDRD) Non-Af 105, BUN/Creatinine Ratio 14.3, Glucose 97, Calcium 8.3, T roponin T High Sens 1025 H* 10/30/24 08:35: Troponin T Hi Sens 2 Hr 991 H*, Troponin T Hi Sens 2Hr Delta 34 10/30/24 12:14: Troponin T Hi Sens 4Hr 901 H*, Troponin T Hi Sens 4Hr Delta 124 Micro: Microbiology 10/28/24 16:12 Gastric Fluid/Contents Gastric Occult Blood - Final Occult Blood Positive 10/28/24 12:51 Stool Stool Occult Blood (BERTHA) - Final Physical Exam Narrative General: Alert, Oriented x3, Cooperative, No apparent distress HEENT: Atraumatic, PERRLA, EOMI, Normocephalic Oral: Moist Mucosa Neck: Supple, No JVD Lungs: Diminished, Normal air movement, No rhonchi, No wheeze, No rales Cardiovascular: Regular rate, Regular Rhythm, Normal S1, Normal S2, No murmurs Abdomen: Soft, Non Tender, Non-Distended, No Hepato-splenomegaly, PEG tube Extremities: No edema, Capillary Refill Less than 3 Seconds Skin: No rashes, No breakdown Musculoskeletal: No Tenderness to Palpation of Joints or Extremities Neurological: No focal neurological deficits, Motor Exam 5/5 strength throughout, Sensory exam intact to light touch and pain Psych/Mental Status: Flat Assessment & Plan Assessment/Plan (1) Acute upper GI bleeding: PLAN: Plan 1. Acute upper GI bleed ?No significant or severe anemia at this time ? Continue with Protonix ? Awaiting EGD today ?NG tube has been removed 2. Recent pulmonary embolisms ? He had pulmonary embolism diagnosed in August 2024 ? Hold Eliquis given GI bleed ? He recently had a tracheostomy decannulation which he is tolerating well 3. Essential HTN/HLD/ischemic cardiomyopathy ? Echo in 2019 with an EF of 65% and normal diastolic function ? Awaiting for medications to be verified ? Can continue with blood pressure medications and cholesterol medications as indicated when verified 4. COPD with bronchiectasis ? Not in exacerbation currently ? Continue with budesonide inhaler as well as DuoNeb DVT: SCDs Charges/Coding Visit Charges Inpatient E&M: 40115 Subs Hosp L2
[2024-10-30] MEDS: LORazepam 0.5 MG Tablet PO (22:03)
[2024-10-30] MEDS: 0.9% Saline Lock 10 ML Syringe IV (22:10)
[2024-10-31] VITALS (7 sets, daily range): BP systolic 95–111; BP diastolic 58–74; PULSE 78–88; RESP 18–24; TEMP 36.7–37.2; O2SAT 92–97
[2024-10-31] MEDS: Ipratropium/Albuterol Sulfate 3 ML AMPUL.NEB INHALATION ×2 (01:36→07:17)
[2024-10-31 06:26] LABS: Absolute Lymphocyte Count 1.03 X10^3/uL (0.83-4.51); Absolute Neutrophil Count 4.4 X10^3/uL (2.0-7.7); Basophil# 0.04 X10^3/uL; Basophil% 0.6 % (0-1); Eosinophil# 0.72 X10^3/uL; Eosinophils% 10.5 % (0-5); Hematocrit 32.6 % (40-54); Hemoglobin 10.6 g/dL (13.0-16.5); Lymphocyte # 1.03 X10^3/ul (0.83-4.51); Mean Corp Hgb Conc 32.5 g/dL (32-36); Mean Corpuscular Hgb 27.9 pg (27.0-32.0); Mean Corpuscular Volume 85.8 fL (80-94); Mean Platelet Vol. 9.4 fl (6.2-12.0); Monocyte# 0.66 X10^3/uL; Monocyte% 9.6 % (0-10); NRBC Flagged by Analyzer 0 % (0-5); Neutrophil # 4.38 X10^3/uL (2.7-7.7); Neutrophil % 63.6 % (47-70); Platelet Count 295 K/mm3 (150-450); RBC Distribution Width CV 14.5 % (11.6-14.6); RBC Distribution Width SD 45.1 fl (35.1-43.9); White Blood Count 6.9 K/mm3 (4.4-11.0)
[2024-10-31] MEDS: Budesonide Respules 0.5 MG/2 ML AMPUL.NEB. INHALATION (07:18)
--- NOTE | 2024-10-31 08:44 | PCM.DC ---
Discharge Instructions Diet Discharge Diet: Low fat / Low cholesterol DC O2, CPAP, BIPAP needs Home O2 Discharge instructions: No Dressing / Incision Discharge Activity: Return to Normal Activity Dressing / Incision Call your doctor if you observe: Fever of 101 or Higher, Shortness of breath, Dizziness, Fainting spells, Swelling in the ankles, Chest pain and Increased palpitations (irregular heartbeat) Follow Up Care Test Results: Test results from this visit will be discussed in further detail at your follow-up appointment, if applicable. Discharge Plan Admission Admit Date/Time: 10/28/24 17:21 Attending Provider: Luiz Estevez Primary Care Provider: Alexey Mayberry Consulting Providers: Dean Cheney Additional Instructions / Restrictions: Follow-up with your PCP in 3 to 5 days to monitor your hemoglobin and your anemia. Also hold your Eliquis for couple of days, the ulcers were treated and I would like to give your Protonix a few days to start protecting your stomach lining prior to restarting your anticoagulant which is necessary given the PE diagnosis less than 3 months ago. Discharge Orders/Prescriptions Prescriptions: New pantoprazole [Protonix] 40 mg tablet,delayed release (DR/EC) 40 mg PO BID 30 Days Qty: 60 2RF Continued Nutren 1.5 0.07 gram-1.5 kcal/mL liquid 240 ml PO Q5H PRN (Reason: low appetite) Rx Instructions: give for supplement if <50% of meal consumed. 30cc flush before and after. guaifenesin [Mucinex] 1,200 mg tablet extended release 12hr 1,200 mg PO BID PRN Trelegy Ellipta 200-62.5-25 mcg blister with device 1 inh inhalation Q24H Qty: 60 5RF lidocaine 5 % adhesive patch,medicated 1 patch topical QDAY Rx Instructions: apply to right lower back Qam for pain ketoconazole 2 % cream 1 applic topical BID quetiapine 25 mg tablet 25 mg PO QHS magnesium oxide 400 mg magnesium capsule 400 mg PO QDAY albuterol sulfate 2.5 mg /3 mL (0.083 %) solution for nebulization 2.5 mg inhalation Q4H PRN PRN (Reason: wheezing) lorazepam [Ativan] 0.5 mg tablet 0.5 mg PO Q8H PRN (Reason: anxiety) ipratropium-albuterol 0.5 mg-3 mg(2.5 mg base)/3 mL solution for nebulization 3 ml inhalation Q6H PRN PRN (Reason: dyspnea) furosemide [Lasix] 40 mg tablet 40 mg PO DAILY atorvastatin 20 mg Tablet 20 mg G-tube QHS Qty: 1 0RF ferrous sulfate 300 mg (60 mg iron)/5 mL Liquid 300 mg G-tube BREAKFAST Qty: 1 0RF magnesium hydroxide 400 mg/5 mL Suspension 30 ml G-tube X1 PRN (Reason: Constipation) Qty: 1 0RF Rx Instructions: As needed for constipation montelukast 10 mg Tablet 10 mg G-tube DAILY Qty: 1 0RF Multi-William 9 mg iron/15 mL Liquid 15 ml G-tube DAILYCM Qty: 1 0RF quetiapine 25 mg Tablet 12.5 mg PO 0700 Qty: 1 0RF gabapentin 400 mg capsule 800 mg PO TID Qty: 1 0RF bupropion HCl 150 mg Tablet Extended Release 24 Hr 150 mg PO BID Held Eliquis 5 mg tablet 5 mg PO BID Qty: 1 0RF Hold Instructions: Resume on 11/04/24. Discontinued famotidine 20 mg Tablet 20 mg G-tube BID Qty: 1 0RF Referrals / Follow Up: David Jackson DO [Med Staff - Active Staff] - Within 2 Weeks Alexey Mayberry MD [Primary Care Provider] - Within 1 Week Disposition Disposition (needs filled in before D/C Order can be placed): Home, Self Care
[2024-10-31] MEDS: Pantoprazole Sodium 40 MG in 0.9% Normal Saline (100mL MB+) 100 ML 330 MG IV (09:24)
[2024-10-31] MEDS: 0.9% Saline Lock 10 ML Syringe IV (09:25)
--- NOTE | 2024-10-31 15:30 | PCM.DC.SUM ---
Providers Date of Admission: 10/28/24 Primary Care Physician: Dr. Alexey Mayberry MD Consultations 10/28/24 18:38 Consult: Gastroenterology Routine Consulting Provider: [facility] Reason for Consult: GI bleed EMERGENT Consult: No MD Notified: Yes Date Notified: 10/28/24 Time Notified: 17:25 Method of Notification: ED Physician Initiated Reason For Visit: UPPER GI BLEED Diagnosis Discharge Diagnosis (1) Acute upper GI bleeding: Status: Acute Code(s): K92.2 - Gastrointestinal hemorrhage, unspecified Medications at Discharge Home Medications atorvastatin 20 mg tablet 20 mg G-tube QHS #1 TAB 08/07/24 ferrous sulfate 300 mg (60 mg iron)/5 mL oral liquid 300 mg (5 mL) G-tube BREAKFAST #1 mL 08/07/24 magnesium hydroxide 400 mg/5 mL oral suspension 30 ml G-tube X1 PRN Constipation #1 mL 08/07/24 montelukast 10 mg tablet 10 mg G-tube DAILY #1 TAB 08/07/24 multivit and minerals-ferrous gluconate 9 mg iron/15 mL oral liquid (Multi-William) 15 ml G-tube DAILYCM #1 mL 08/07/24 quetiapine 25 mg tablet 12.5 mg (1/2 x 25 mg) PO 0700 #1 TAB 08/07/24 gabapentin 400 mg capsule 800 mg (2 x 400 mg) PO TID #1 cap 08/10/24 bupropion HCl 150 mg 24 hr tablet, extended release 150 mg PO BID 08/16/24 nutritional supplements 0.07 gram-1.5 kcal/mL liquid for tube feed (Nutren 1.5) 240 ml PO Q5H PRN low appetite 08/17/24 albuterol sulfate 2.5 mg/3 mL (0.083 %) solution for nebulization 2.5 mg inhalation Q4H PRN PRN wheezing 09/11/24 furosemide 40 mg tablet (Lasix) 40 mg PO DAILY 09/11/24 ipratropium 0.5 mg-albuterol 3 mg (2.5 mg base)/3 mL nebulization soln 3 ml inhalation Q6H PRN PRN dyspnea 09/11/24 lorazepam 0.5 mg tablet (Ativan) 0.5 mg PO Q8H PRN anxiety 09/11/24 apixaban 5 mg tablet (Eliquis) 5 mg PO BID #1 TAB 09/12/24 Held on 10/31/24. Instructions: Resume on 11/04/24. lidocaine 5 % topical patch 1 patch topical QDAY 10/01/24 ketoconazole 2 % topical cream 1 applic topical BID 10/06/24 quetiapine 25 mg tablet 25 mg PO QHS 10/06/24 magnesium oxide 400 mg PO QDAY 10/15/24 fluticasone fur. 200 mcg-umeclid 62.5 mcg-vilant 25 mcg inhalat.powder (Trelegy Ellipta) 1 inh inhalation Q24H #60 ea 10/20/24 guaifenesin 1,200 mg tablet, extended release 12 hr (Mucinex) 1,200 mg PO BID PRN 10/20/24 pantoprazole 40 mg tablet,delayed release (Protonix) 40 mg PO BID 30 days #60 tabs 10/31/24 Hospital Course Operations None Procedures EGD Summary of Care Provided Minutes Spent on Discharge: 36 Hospital Course: Per HPI: CHIO DENT, is a 64 M who presents with vomiting black material. He was doing well in the emergency room and then happen again. They placed an NG tube and were able to get black material. His Hemoccult was negative but his Gastroccult was positive. Concern for that being a GI bleed while he has been recently started on apixaban for VTE. The ED physician reached out to Dr. Jackson of gastroenterology. Patient was started on pantoprazole 40 mg in the emergency room IV. Patient be admitted for further GI bleed. Patient denies any history of any GI bleed. Does have some abdominal pain. Hospital Course: 1. Acute upper GI bleed in the setting of anticoagulation due to recent pulmonary embolisms in August?61-year-old male presented to the hospital with hematemesis. He had an NG tube placed demonstrating which did test positive for blood. He was placed on Protonix and his Eliquis was discontinued on admission. EGD demonstrated multiple areas of bleeding ulcers with nonerosive bleeding esophagitis. He was also found to have erythematous duodenopathy. He never had a significant drop in his hemoglobin which was stable today on the day of discharge at 10.6. He demanded to go home today and did not want to wait for discussion about when to resume Eliquis for his PEs therefore he was discharged home at his explicit request. Will hold his Eliquis for a few days but given that the lesions were treated and he needs to be treated for his PEs, I do recommend that this gets restarted as an outpatient. I also recommend that he follow-up with his PCP and gastroenterology as an outpatient for definitive plan of anticoagulation versus filter placement if this is again become a long-term issue. I did attempt to have these discussions with him but he did not seem interested at this time. 2. Essential hypertension, hyperlipidemia, ischemic cardiomyopathy, COPD with bronchiectasis are all chronic medical conditions which complicate his care. His home medications were continued for appropriate Physical Exam Narrative General: Alert, Oriented x3, Cooperative, No apparent distress HEENT: Atraumatic, PERRLA, EOMI, Normocephalic Oral: Moist Mucosa Neck: Supple, No JVD, healed tracheostomy site Lungs: Diminished, Normal air movement, No rhonchi, No wheeze, No rales Cardiovascular: Regular rate, Regular Rhythm, Normal S1, Normal S2, No murmurs Abdomen: Soft, Non Tender, Non-Distended, No Hepato-splenomegaly, PEG tube site is bandaged Extremities: No edema, Capillary Refill Less than 3 Seconds Skin: No rashes, No breakdown Musculoskeletal: No Tenderness to Palpation of Joints or Extremities Neurological: No focal neurological deficits, Motor Exam 5/5 strength throughout, Sensory exam intact to light touch and pain Psych/Mental Status: Flat Weight / BMI Weight Weight: 148 lb 5.938 oz Body Mass Index (BMI) 22.5 ABG / Lab / Microbiology Data 10/31/24 05:58 10/30/24 06:12 Laboratory: Laboratory Results - last 24 hr 10/31/24 05:58: WBC 6.9, RBC 3.80 L, Hgb 10.6 L, Hct 32.6 L, MCV 85.8, MCH 27.9, MCHC 32.5, RDW Std Deviation 45.1 H, RDW Coeff of [place] 14.5, Plt Count 295, MPV 9.4, Immature Gran % (Auto) 0.700, Neut % (Auto) 63.6, Lymph % (Auto) 15.0 L, [place] % (Auto) 9.6, Eos % (Auto) 10.5 H, Baso % (Auto) 0.6, Absolute Neuts (auto) 4.4, Absolute Lymphs (auto) 1.03, Nucleated RBC % 0 Microbiology: Microbiology 10/28/24 16:12 Gastric Fluid/Contents Gastric Occult Blood - Final Occult Blood Positive 10/28/24 12:51 Stool Stool Occult Blood (BERTHA) - Final D/C Instructions Discharge Diet: Low fat / Low cholesterol Call your doctor if you observe: Fever of 101 or Higher, Shortness of breath, Dizziness, Fainting spells, Swelling in the ankles, Chest pain and Increased palpitations (irregular heartbeat) DC O2, CPAP, BIPAP Needs Home O2 Discharge instructions: No Meaningful Use Info Meaningful Use Meaningful Use Diagnoses (Choose all that apply): None applicable Ischemic Stroke Statin Dosing Therapy Reference: STATIN DOSE THERAPY REFERENCE: * Patients > 75 years receive moderate or high dose statin therapy. * Patients 75 years or YOUNGER should receive HIGH intensity statin dose unless contraindicated. You will be required to document reason for non-treatment if statin daily dose does not meet guidelines. HIGH DOSE STATIN THERAPY DAILY Atorvastatin > than or = to 40 mg Rosuvastatin > than or = to 20 mg Amlodipine + Atorvastatin > than or = to 2.5/40 mg Ezetimibe + Simvastatin 10/80 mg Simvastatin 80mg Discharge Plan Admission Admit Date/Time: 10/28/24 17:21 Attending Provider: Luiz Estevez Primary Care Provider: Alexey Mayberry Consulting Providers: Dean Cheney Instructions Additional Instructions / Restrictions: Follow-up with your PCP in 3 to 5 days to monitor your hemoglobin and your anemia. Also hold your Eliquis for couple of days, the ulcers were treated and I would like to give your Protonix a few days to start protecting your stomach lining prior to restarting your anticoagulant which is necessary given the PE diagnosis less than 3 months ago. Discharge Orders/Prescriptions Prescriptions: New pantoprazole [Protonix] 40 mg tablet,delayed release (DR/EC) 40 mg PO BID 30 Days Qty: 60 2RF Continued Nutren 1.5 0.07 gram-1.5 kcal/mL liquid 240 ml PO Q5H PRN (Reason: low appetite) Rx Instructions: give for supplement if <50% of meal consumed. 30cc flush before and after. guaifenesin [Mucinex] 1,200 mg tablet extended release 12hr 1,200 mg PO BID PRN Trelegy Ellipta 200-62.5-25 mcg blister with device 1 inh inhalation Q24H Qty: 60 5RF lidocaine 5 % adhesive patch,medicated 1 patch topical QDAY Rx Instructions: apply to right lower back Qam for pain ketoconazole 2 % cream 1 applic topical BID quetiapine 25 mg tablet 25 mg PO QHS magnesium oxide 400 mg magnesium capsule 400 mg PO QDAY albuterol sulfate 2.5 mg /3 mL (0.083 %) solution for nebulization 2.5 mg inhalation Q4H PRN PRN (Reason: wheezing) lorazepam [Ativan] 0.5 mg tablet 0.5 mg PO Q8H PRN (Reason: anxiety) ipratropium-albuterol 0.5 mg-3 mg(2.5 mg base)/3 mL solution for nebulization 3 ml inhalation Q6H PRN PRN (Reason: dyspnea) furosemide [Lasix] 40 mg tablet 40 mg PO DAILY atorvastatin 20 mg Tablet 20 mg G-tube QHS Qty: 1 0RF ferrous sulfate 300 mg (60 mg iron)/5 mL Liquid 300 mg G-tube BREAKFAST Qty: 1 0RF magnesium hydroxide 400 mg/5 mL Suspension 30 ml G-tube X1 PRN (Reason: Constipation) Qty: 1 0RF Rx Instructions: As needed for constipation montelukast 10 mg Tablet 10 mg G-tube DAILY Qty: 1 0RF Multi-William 9 mg iron/15 mL Liquid 15 ml G-tube DAILYCM Qty: 1 0RF quetiapine 25 mg Tablet 12.5 mg PO 0700 Qty: 1 0RF gabapentin 400 mg capsule 800 mg PO TID Qty: 1 0RF bupropion HCl 150 mg Tablet Extended Release 24 Hr 150 mg PO BID Held Eliquis 5 mg tablet 5 mg PO BID Qty: 1 0RF Hold Instructions: Resume on 11/04/24. Discontinued famotidine 20 mg Tablet 20 mg G-tube BID Qty: 1 0RF Referrals / Follow Up: David Jackson DO [Med Staff - Active Staff] - Within 2 Weeks Alexey Mayberry MD [Primary Care Provider] - Within 1 Week Disposition Disposition (needs filled in before D/C Order can be placed): Home, Self Care Charges/Coding Visit Charges Inpatient E&M: 01621 Disch Hosp >30min
== END 2024-10-31 10:54 | disposition home or self-care (01) | DRG 377 ==
LOC: ED 17:09 → PCU 17:27
PROVIDERS: Anesthesiology; Internal Medicine; Internal Medicine Gastroenterology; Emergency Provider Emergency Medicine; PCP Internal Medicine; Referring Provider Emergency Medicine; Visit Provider Family Medicine
PROC: 0DJ08ZZ Inspection of Upper Intestinal Tract, Via Natural or Artificial Opening Endoscopic (ICD-10-PCS; CPT 43235; principal; 2024-10-30 15:55)
DX: K25.4 Chronic or unspecified gastric ulcer with hemorrhage (principal); K20.91 Esophagitis, unspecified with bleeding; D68.32 Hemorrhagic disorder due to extrinsic circulating anticoagulants; J47.9 Bronchiectasis, uncomplicated; I10 Essential (primary) hypertension; I48.91 Unspecified atrial fibrillation; Z93.1 Gastrostomy status; E78.5 Hyperlipidemia, unspecified; I25.10 Atherosclerotic heart disease of native coronary artery without angina pectoris; I25.5 Ischemic cardiomyopathy; I25.2 Old myocardial infarction; Z95.5 Presence of coronary angioplasty implant and graft; Z87.891 Personal history of nicotine dependence; Z79.01 Long term (current) use of anticoagulants; Z79.51 Long term (current) use of inhaled steroids; Z86.711 Personal history of pulmonary embolism
CPT/HCPCS: 36415; 74018; 80048; 80053; 82271; 82274; 83690; 84484; 85014; 85018; 85025; 85610; 85730; 93005; 94640; 99285; A4216; J2405

== ENCOUNTER → 2025-01-02 | Outpatient (CLI) | payer MEDICARE, MEDICAID, SELFPAY ==
--- NOTE | 2025-01-02 10:04 | CT_ITS ---
PROCEDURE: LOW DOSE CT LUNG SCREENING 01/02/2025 REASON FOR EXAM: SMOKER TECHNIQUE: Low Dose CT Lung screening without contrast. Coronal and Sagittal reconstruction series were provided. One or more dose reduction techniques were used (e.g., Automated exposure control, adjustment of the mA and/or kV according to patient size, use of iterative reconstruction technique). REFERENCE LINK: [facility] Lung-RADS RADIATION DOSE SUMMARY: CTDlvol: 3.0 mGy DLP: 110.6 mGycm COMPARISON: CT chest on 08/11/2024 FINDINGS: PULMONARY NODULES: (Only nodules >3mm are reported) Nodules described below are on series 2 unless otherwise specified. Pulmonary Nodules: There is a solid nodule in the right middle lobe measuring 5 mm (image 110), not seen on CT dated 08/11/2024. Nodular opacity in the left lower lobe measuring 7 mm (image 186) is unchanged. Lymph Nodes:Prominent subcentimeter mediastinal and hilar lymph nodes, similar to prior. Heart and Vasculature:Normal heart size without significant pericardial effusion. Severe multi-vessel coronary calcification. Lungs and Airways: Trace nonobstructing debris in the left mainstem bronchus. Diffuse bronchial wall thickening. Extensive centrilobular emphysema, worst at the lung apices. Pleura:No pleural effusion. Upper Abdomen:Visualized portions are unremarkable. Bones:Healed rib fractures bilaterally, unchanged. Degenerative changes of the spine. CT/Low Dose CT Lung Screening IMPRESSION: Lung-RADS Category: 3S PROBABLY BENIGN (BASED ON IMAGING FEATURES OR BEHAVIOR). RECOMMEND 6MONTH LDCT. Other Significant Findings: Severe coronary calcification. Prominent thoracic lymph nodes. Reading Location: [id number]
== END | disposition home or self-care (01) ==
LOC: CT 10:02
PROVIDERS: PCP Internal Medicine; Referring Provider Nurse Practitioner Acute Care; Visit Provider Nurse Practitioner Acute Care
DX: F17.210 Nicotine dependence, cigarettes, uncomplicated (principal)
CPT/HCPCS: 71271

== ENCOUNTER 2025-02-09 12:23 | Day surgery (SDC) | payer MEDICARE, MEDICAID, SELFPAY ==
--- NOTE | 2025-02-05 15:09 | PAT.ANESEVAL ---
Pre-Assessment Diagnosis/Proposed Procedure Planned Operative Procedure(s): EGD Anesthesia History Anesthesia History - supervisor scrap preparation: Anesthesia History - supervisor scrap preparation Hx Hospitalization Yes: GI BLEED 02/05/25 14:05 Any Problems With Anesthesia No 02/05/25 14:05 Cholinesterase deficiency No 02/05/25 14:05 You/Your Family Experience No 02/05/25 14:05 fever (hyperthermia) with Relationship Recent Exposure to Contagious No 10/30/24 09:00 Disease Does patient have nerve No 02/05/25 14:05 stimulator Patient instructed to have device shut off --Does patient have Pacemaker or ICD? When Was Last Pacemaker Check QUESTION #4 FULL TEXT: You/Your Family Experience fever (hyperthermia) with Anesthesia Last Oral Intake Last Oral intake: Last Oral Intake NPO since Meds taken in AM with sips of water? 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 - supervisor scrap preparation: PONV - supervisor scrap preparation Female No 02/05/25 14:05 HX of Motion Sickness No 02/05/25 14:05 HX of N/V After Surgery No 02/05/25 14:05 Non-Smoker Yes 02/05/25 14:05 Duration of Surgery greater No 02/05/25 14:05 than 60 minutes Number of Risk Factors 1 02/05/25 14:05 PONV Score Low Risk 02/05/25 14:05 Height & Weight Height & Weight: Anesthesia: Height & Weight Height 5 ft 8 in 01/27/25 07:54 Respiratory Assessment Respiratory Assessment - supervisor scrap preparation: Respiratory Tract Infection Hx - supervisor scrap preparation Hx Respiratory Tract Infection No 02/05/25 14:05 STOP Sleep Apnea STOP Sleep Apnea - supervisor scrap preparation: STOP Sleep Apnea - supervisor scrap preparation Hx Hypertension Yes: NO MEDS AT THIS TIME 02/05/25 14:05 Hx Sleep Apnea No 02/05/25 14:05 CPAP Yes 09/11/24 15:50 BIPAP No 09/11/24 15:50 Do you snore loudly (louder No 02/05/25 14:05 than talking or can be heard Do you often feel tired/ No 02/05/25 14:05 fatigued/ sleepy during daytime? Has anyone observed you stop No 02/05/25 14:05 breathing during sleep? STOP Results Negative 02/05/25 14:05 QUESTION #5 FULL TEXT : Do you snore loudly (louder than talking or can be heard through closed doors)? Tobacco Use History Tobacco Use History - supervisor scrap preparation: Tobacco Use History - supervisor scrap preparation Tobacco Use Smoking Status Former smoker 02/05/25 14:05 Hx Tobacco Use Yes 02/05/25 14:05 Years Smoking Packs Smoked per Day Smoking Cessation Date was Yes - quit smoking within 15 02/05/25 14:05 within the last 15 years years Hx Smoking Cessation Date 06/13/24 02/05/25 14:05 Hx Smoking Cessation No 02/05/25 14:05 Counseling Hematologic Medial History Hematologic Hx - supervisor scrap preparation: Hematologic Medical Hx - visual basic developer Hx of Blood Transfusion No 02/05/25 14:05 Hx of Transfusion in last 3 No 02/05/25 14:05 Months Date of Last Transfusion (if within last 3 months) Ever experience any problems No 02/05/25 14:05 with transfusion(s)? Specify any problems Hx of Preganancy in last 3 N/A 02/05/25 14:05 Months Nurse Filling Out Transfusion JZOLLTERRENCE 02/05/25 14:05 & Questions: Date: 02/05/25 02/05/25 14:05 Time: 14:06 02/05/25 14:05 Patient unable to answer at this time (ie. confused, unrespo /Reproduction History /Reproductive History - supervisor scrap preparation: /Reproductive Hx- supervisor scrap preparation Hx Now No 02/05/25 14:05 Gestational Age (in weeks): EDC: Hx Hx Para Hx Section SAB No 02/05/25 14:05 PFSH Medical History (Updated 02/05/25 @ 14:05 by Rama Parikh) Easy bruising History of GI bleed MRSA (methicillin resistant staph aureus) culture positive Chronic neuropathic pain Former smoker Myocardial infarct Pneumonia Tracheostomy in place Foraminal stenosis of cervical region Cervical spondylosis Ribs, multiple fractures Respiratory arrest before cardiac arrest Wears dentures Wears glasses Arthritis History of hiatal hernia Gastric reflux Sleep apnea Hypertension History of echocardiogram History of stress test Cardiology follow-up encounter History of heart attack GERD (gastroesophageal reflux disease) Dysphagia Hypersomnia Bronchiectasis Asthma-COPD overlap syndrome BPH (benign prostatic hyperplasia) Paroxysmal atrial tachycardia Paroxysmal ventricular tachycardia Premature ventricular contraction HCAP (healthcare-associated pneumonia) Atherosclerotic heart disease of [place] coronary artery without angina pectoris Ischemic cardiomyopathy HLD (hyperlipidemia) History of pulmonary embolism Home Medications ?Medication ?Instructions ?Recorded ?Last Taken ?Type gabapentin 400 mg capsule 800 mg (2 x 400 mg) PO TID #1 cap 08/10/24 Unknown Rx bupropion HCl 150 mg 24 hr tablet, 150 mg PO BID 08/16/24 Unknown History extended release albuterol sulfate 2.5 mg/3 mL 2.5 mg inhalation Q4H PRN PRN 09/11/24 Unknown History (0.083 %) solution for nebulization wheezing furosemide 40 mg tablet (Lasix) 40 mg PO DAILY 09/11/24 Unknown History ipratropium 0.5 mg-albuterol 3 mg 3 ml inhalation Q6H PRN PRN dyspnea 09/11/24 Unknown History (2.5 mg base)/3 mL nebulization soln apixaban 5 mg tablet (Eliquis) 5 mg PO BID #1 TAB 09/12/24 Unknown Rx ketoconazole 2 % topical cream 1 applic topical BID 10/06/24 Unknown History quetiapine 25 mg tablet 25 mg PO QHS 10/06/24 Unknown History guaifenesin 1,200 mg tablet, 1,200 mg PO TID PRN congestion 10/20/24 Unknown History extended release 12 hr (Mucinex) fluticasone fur. 200 mcg-umeclid 1 inh inhalation Q24H #60 ea 11/09/24 Unknown Rx 62.5 mcg-vilant 25 mcg inhalat.powder (Trelegy Ellipta) pantoprazole 40 mg tablet,delayed 40 mg PO BID 30 days #60 tabs 11/19/24 Unknown Rx release (Protonix) triamcinolone acetonide 0.1 % 1 applic topical .QD 01/27/25 Unknown History topical cream fluticasone propionate 50 2 spray intranasal QDAY #16 grams 02/01/25 Unknown Rx mcg/actuation nasal spray,suspension atorvastatin 20 mg tablet 20 mg PO QHS 02/05/25 Unknown History cyanocobalamin (vitamin B-12) 1,000 mcg PO DAILY 02/05/25 Unknown History 1,000 mcg capsule montelukast 10 mg tablet 10 mg PO DAILY 02/05/25 Unknown History Allergy/AdvReac Type Severity Reaction Status Date / Time latex Allergy Rash Verified 02/05/25 13:49 varenicline tartrate (From Allergy Hives Verified 02/05/25 13:49 Chantix) aspirin AdvReac Upset Verified 02/05/25 13:49 Stomach Family History (Reviewed 01/27/25 @ 10:19 by Debbi Schaffer CORRESPONDENCE ANALYST, CORRESPONDENCE ANALYST-C) Father , age 50 CAD (coronary artery disease) Heart disease Myocardial infarction Mother Diabetes Brother Hypertension Surgical History (Reviewed 01/27/25 @ 10:19 by Debbi Schaffer CORRESPONDENCE ANALYST, CORRESPONDENCE ANALYST-C) S/P percutaneous endoscopic gastrostomy (PEG) tube placement History of tracheostomy History of chest tube placement Hx of carpal tunnel repair Hx of angioplasty History of cardiac catheterization History of coronary artery stent placement Hx of shoulder surgery Hx of sinus surgery Hx of nasal sinusotomy Hx of cystoscopy Hx of tonsillectomy History of thumb surgery Hx of right knee surgery Presence of coronary angioplasty implant and graft (~06/27/08) History of hernia repair Social History (Reviewed 01/27/25 @ 10:19 by Debbi Schaffer CORRESPONDENCE ANALYST, CORRESPONDENCE ANALYST-C) household members: significant other and children Smoking Status: Former smoker alcohol intake: never substance use type: does not use caffeine: Yes Type: coffee Number of servings: 3 what type of physical activity do you participate in: walking frequency: daily duration: 45-60 minutes/day seatbelt use: always do you feel safe at home: Yes Audit: Pertinent Findings Pertinent Findings EKG Perinent findings: 10/30/2024. Normal sinus rhythm. 77 bpm. Inferior infarct. Cited on or before March 19, 2023. No significant changes found. Stress test pertinent findings: 04/05/2020. Normal. EF 64%. Consult pertinent findings: Cardiology 10/13/2024. Coronary artery disease. Without angina. Stenting RCA 06/2008. Stress test April 2020 negative for ischemia. History of cardiomyopathy. Ischemic. No symptoms. Paroxysmal atrial tachycardia. Appears to be regular rhythm. Continue current medical therapy PVCs chronic. Continue medical management. Recommendation Anesthesia Recommendation Anesthesia recommendation: OPTIMIZED for anesthesia
[2025-02-09] VITALS (8 sets, daily range): BP systolic 102–131; BP diastolic 60–86; PULSE 76–80; RESP 16–18; TEMP 36.4–36.9; O2SAT 96–99; BMI 23.9
[2025-02-09] MEDS: Lactated Ringers 1,000 ML 15 ML IV (12:54)
--- NOTE | 2025-02-09 13:16 | PCM.PRE.AN2 ---
ASA Classification* ASA Classification ASA Classification: 3 Assessment & Plan Anesthesia* Anesthesia Assessment Anesthesia Assessment: Discussed sedation and/or anesthesia options, risks, benefits, and alternatives with patient/parents/legal guardian/POA. Questions invited. The patient/parents/legal guardian/POA seems to understand and agrees to proceed with anesthesia plan. Reviewed the physical assessment, medical history, allergy history and patient home medications list prior to surgery/procedure/anesthetic and documented any changes. Performed airway and anesthesia risk assessments. Anesthesia Type Anesthesia Type: MAC Anesthesia Focused Assessment* Temperature: 97.6 F Pulse Rate: 80 Blood Pressure: 131/86 Respiratory Rate: 18 Pulse Ox: 97 Airway Assessment Mouth opens: >3 cm Mallampati Score: II Labs Anesthesia Preop lab: CBC WBC 6.9 K/mm3 (4.4-11.0) 10/31/24 05:58 10/31/24 RBC 3.80 M/mm3 (4.6-6.2) L 10/31/24 05:58 10/31/24 Hgb 10.6 g/dL (13.0-16.5) L 10/31/24 05:58 10/31/24 Hct 32.6 % (40-54) L 10/31/24 05:58 10/31/24 Plt Count 295 K/mm3 (150-450) 10/31/24 05:58 10/31/24 CHEMISTRY Potassium 3.4 mmol/L (3.3-5.1) 10/30/24 06:12 10/30/24 Sodium 138 mmol/L (133-145) 10/30/24 06:12 10/30/24 Magnesium 1.7 mg/dL (1.6-2.6) 09/11/24 14:55 09/11/24 Phosphorus 3.8 mg/dL (2.5-4.9) 09/11/24 14:55 09/11/24 BUN 10 mg/dL (4-19) 10/30/24 06:12 10/30/24 Creatinine 0.66 mg/dL (0.70-1.20) L 10/30/24 06:12 10/30/24 Glucose 97 mg/dL (70-99) 10/30/24 06:12 10/30/24 POC Glucose 122 mg/dL (74-106) H 08/03/24 06:25 08/03/24 TSH 0.44 uIU/mL (0.358-3.74) 12/07/14 07:30 12/07/14 COAG PT 15.3 SECONDS (11.7-14.9) H 10/30/24 06:12 10/30/24 Pre-Assessment Diagnosis/Proposed Procedure Planned Operative Procedure(s): EGD Anesthesia History 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 When Was Last Pacemaker Check QUESTION #4 FULL TEXT: You/Your Family Experience fever (hyperthermia) with Anesthesia Last Oral Intake Last Oral intake: Last Oral Intake NPO since Meds taken in AM with sips of water? 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 Female No 02/05/25 14:05 HX of Motion Sickness No 02/05/25 14:05 HX of N/V After Surgery No 02/05/25 14:05 Non-Smoker Yes 02/05/25 14:05 Duration of Surgery greater No 02/05/25 14:05 than 60 minutes Number of Risk Factors 1 02/05/25 14:05 PONV Score Low Risk 02/05/25 14:05 Height & Weight Height & Weight: Anesthesia: Height & Weight Height 5 ft 8 in 02/09/25 12:50 Weight: 71.4 kg 02/09/25 12:50 Body Mass Index (BMI) 23.9 02/09/25 12:50 Respiratory Assessment Respiratory Assessment - plasterer journeyman: Respiratory Tract Infection Hx - plasterer journeyman Hx Respiratory Tract Infection No 02/05/25 14:05 STOP Sleep Apnea STOP Sleep Apnea - plasterer journeyman: STOP Sleep Apnea - plasterer journeyman Hx Hypertension Yes: NO MEDS AT THIS TIME 02/05/25 14:05 Hx Sleep Apnea No 02/05/25 14:05 CPAP Yes 09/11/24 15:50 BIPAP No 09/11/24 15:50 Do you snore loudly (louder No 02/05/25 14:05 than talking or can be heard Do you often feel tired/ No 02/05/25 14:05 fatigued/ sleepy during daytime? Has anyone observed you stop No 02/05/25 14:05 breathing during sleep? STOP Results Negative 02/05/25 14:05 QUESTION #5 FULL TEXT : Do you snore loudly (louder than talking or can be heard through closed doors)? 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 Specify any problems Hx of Preganancy in last 3 N/A 02/05/25 14:05 Months Nurse Filling Out Transfusion MEHRDAD 02/05/25 14:05 & Questions: Date: 02/05/25 02/05/25 14:05 Time: 14:06 02/05/25 14:05 Patient unable to answer at this time (ie. confused, unrespo /Reproduction History /Reproductive History - plasterer journeyman: /Reproductive Hx- plasterer journeyman Hx Now No 02/05/25 14:05 Gestational Age (in weeks): EDC: Hx Hx Para Hx Section SAB No 02/05/25 14:05 Active Medications Active Medications: Current Medications Generic Name Dose Route Start Last Admin Trade Name Freq PRN Reason Stop Dose Admin Lactated Ringer's 1,000 mls @ 15 mls/hr 02/09/25 12:30 02/09/25 12:54 IV 15 mls/hr .Q48H LAYLA Administration PFSH Medical History Easy bruising History of GI bleed MRSA (methicillin resistant staph aureus) culture positive Chronic neuropathic pain Former smoker Myocardial infarct Pneumonia Tracheostomy in place Foraminal stenosis of cervical region Cervical spondylosis Ribs, multiple fractures Respiratory arrest before cardiac arrest Wears dentures Wears glasses Arthritis History of hiatal hernia Gastric reflux Sleep apnea Hypertension History of echocardiogram History of stress test Cardiology follow-up encounter History of heart attack GERD (gastroesophageal reflux disease) Dysphagia Hypersomnia Bronchiectasis Asthma-COPD overlap syndrome BPH (benign prostatic hyperplasia) Paroxysmal atrial tachycardia Paroxysmal ventricular tachycardia Premature ventricular contraction HCAP (healthcare-associated pneumonia) Atherosclerotic heart disease of [place] coronary artery without angina pectoris Ischemic cardiomyopathy HLD (hyperlipidemia) History of pulmonary embolism Home Medications ?Medication ?Instructions ?Recorded ?Last Taken ?Type gabapentin 400 mg capsule 800 mg (2 x 400 mg) PO TID #1 cap 08/10/24 02/09/25 08:30 Rx bupropion HCl 150 mg 24 hr tablet, 150 mg PO BID 08/16/24 02/09/25 08:30 History extended release albuterol sulfate 2.5 mg/3 mL 2.5 mg inhalation Q4H PRN PRN 09/11/24 Unknown History (0.083 %) solution for nebulization wheezing furosemide 40 mg tablet (Lasix) 40 mg PO DAILY 09/11/24 Unknown History ipratropium 0.5 mg-albuterol 3 mg 3 ml inhalation Q6H PRN PRN dyspnea 09/11/24 Unknown History (2.5 mg base)/3 mL nebulization soln apixaban 5 mg tablet (Eliquis) 5 mg PO BID #1 TAB 09/12/24 02/05/25 Rx ketoconazole 2 % topical cream 1 applic topical BID 10/06/24 Unknown History quetiapine 25 mg tablet 25 mg PO QHS 10/06/24 Unknown History guaifenesin 1,200 mg tablet, 1,200 mg PO TID PRN congestion 10/20/24 Unknown History extended release 12 hr (Mucinex) fluticasone fur. 200 mcg-umeclid 1 inh inhalation Q24H #60 ea 11/09/24 Unknown Rx 62.5 mcg-vilant 25 mcg inhalat.powder (Trelegy Ellipta) pantoprazole 40 mg tablet,delayed 40 mg PO BID 30 days #60 tabs 11/19/24 02/09/25 08:30 Rx release (Protonix) triamcinolone acetonide 0.1 % 1 applic topical .QD 01/27/25 Unknown History topical cream fluticasone propionate 50 2 spray intranasal QDAY #16 grams 02/01/25 Unknown Rx mcg/actuation nasal spray,suspension atorvastatin 20 mg tablet 20 mg PO QHS 02/05/25 Unknown History cyanocobalamin (vitamin B-12) 1,000 mcg PO DAILY 02/05/25 Unknown History 1,000 mcg capsule montelukast 10 mg tablet 10 mg PO DAILY 02/05/25 Unknown History Allergy/AdvReac Type Severity Reaction Status Date / Time latex Allergy Rash Verified 02/09/25 12:48 varenicline tartrate (From Allergy Hives Verified 02/09/25 12:48 Chantix) aspirin AdvReac Upset Verified 02/09/25 12:48 Stomach Family History Father , age 50 CAD (coronary artery disease) Heart disease Myocardial infarction Mother Diabetes Brother Hypertension Surgical History S/P percutaneous endoscopic gastrostomy (PEG) tube placement History of tracheostomy History of chest tube placement Hx of carpal tunnel repair Hx of angioplasty History of cardiac catheterization History of coronary artery stent placement Hx of shoulder surgery Hx of sinus surgery Hx of nasal sinusotomy Hx of cystoscopy Hx of tonsillectomy History of thumb surgery Hx of right knee surgery Presence of coronary angioplasty implant and graft (~06/27/08) History of hernia repair Social History household members: significant other and children Smoking Status: Former smoker alcohol intake: never substance use type: does not use caffeine: Yes Type: coffee Number of servings: 3 what type of physical activity do you participate in: walking frequency: daily duration: 45-60 minutes/day seatbelt use: always do you feel safe at home: Yes Review of Systems (Anesthesia) ROS Narrative System reviewed and no additional complaints, except as documented.
--- NOTE | 2025-02-09 13:25 | EGD_PTH ---
PATIENT: CHIO DENT Jr. LOC: EN U#:[id number] AGE/SX: 64/M ROOM: RE02/09/[address]: Dr. David Jackson DO : 1960 BED: DIS: 02/09/2025 SPEC #: [id number] RECD: 02/09/25 18:24 STATUS: MARIA EUGENIA REQ #: [id number] MALACHI: 02/09/25 13:[address]: David Jackson DEPT: SURGICAL PATHOLOGY RECD BY: Khoa Slater ENTERED: 02/10/25 08:51 SP TYPE: EGD BIOPSY GHADA DR: Dr. Alexey Mayberry MD Tissues: A - Gastric mucous membrane Procedures: Immunohistochemical Stains Surgery Specimen Level IV HEADER OPERATION: EGD PRE-OP DIAGNOSIS: Gastric ulcer, esophagitis determined by endoscopy TISSUE SUBMITTED: A- Gastric antrum biopsy MICROSCOPIC DIAGNOSIS A. Stomach, antrum, biopsy: * Pyloric mucosa with slight chronic inflammation * An immunohistochemical stain for Helicobacter pylori is negative MICROSCOPIC DESCRIPTION Slides are reviewed. All matched controls reacted appropriately. These tests were developed and their performance characteristics determined by [facility]. They may not have been cleared or approved by the U.S. Food and Drug Administration. The FDA has determined that such clearance or approval is not necessary. The above immunohistochemical/dualISH markers are reviewed by the Pathologist. GROSS DESCRIPTION A. Received in formalin labeled with the patient's name and date of . Designated as gastric antrum for H. pylori and path are 2 horne tissue fragments, 0.5 cm and 0.7 cm. Entirely submitted in 1 cassette. [facility] [place], [place] 02/10/2025 CPT:50356,62301
--- NOTE | 2025-02-09 15:00 | PCM.HP.STD ---
HPI - General General Date of Admission: 02/09/25 Date of Service: 02/09/25 Chief Complaint: Gastric ulcer surveillance HPI Narrative CHIO DENT, is a 64 M who presents for surveillance of gastric ulcers EGD 10/30/2024 - LA Grade D non-erosive esophagitis with bleeding. Treated with a heater probe. - Oozing gastric ulcers with pigmented material. Treated with a heater probe. - Intact gastrostomy with a patent G-tube present characterized by healthy appearing mucosa. - Erythematous duodenopathy. - The PEG was cut externally, grasped, and removed with the scope because it was no longer necessary. - No specimens collected. - seen in the office today with his - he is back on apixiban - denies taking any NSAIDS - he reports he was on Omeprazole because he did not tolerate famotidine due to breakthrough HB - denies any N/V - denies any melena - denies any abdominal pain - denies any weight loss - occasional soft stools, typically has 2-3 BM daily - denies any urgency - he is drinking 4 cups of coffee daily - he quit smoking - denies any alcohol PFSH Medical History Easy bruising History of GI bleed MRSA (methicillin resistant staph aureus) culture positive Chronic neuropathic pain Former smoker Myocardial infarct Pneumonia Tracheostomy in place Foraminal stenosis of cervical region Cervical spondylosis Ribs, multiple fractures Respiratory arrest before cardiac arrest Wears dentures Wears glasses Arthritis History of hiatal hernia Gastric reflux Sleep apnea Hypertension History of echocardiogram History of stress test Cardiology follow-up encounter History of heart attack GERD (gastroesophageal reflux disease) Dysphagia Hypersomnia Bronchiectasis Asthma-COPD overlap syndrome BPH (benign prostatic hyperplasia) Paroxysmal atrial tachycardia Paroxysmal ventricular tachycardia Premature ventricular contraction HCAP (healthcare-associated pneumonia) Atherosclerotic heart disease of [place] coronary artery without angina pectoris Ischemic cardiomyopathy HLD (hyperlipidemia) History of pulmonary embolism Home Medications ?Medication ?Instructions ?Recorded ?Last Taken ?Type gabapentin 400 mg capsule 800 mg (2 x 400 mg) PO TID #1 cap 08/10/24 02/09/25 08:30 Rx bupropion HCl 150 mg 24 hr tablet, 150 mg PO BID 08/16/24 02/09/25 08:30 History extended release albuterol sulfate 2.5 mg/3 mL 2.5 mg inhalation Q4H PRN PRN 09/11/24 Unknown History (0.083 %) solution for nebulization wheezing furosemide 40 mg tablet (Lasix) 40 mg PO DAILY 09/11/24 Unknown History ipratropium 0.5 mg-albuterol 3 mg 3 ml inhalation Q6H PRN PRN dyspnea 09/11/24 Unknown History (2.5 mg base)/3 mL nebulization soln apixaban 5 mg tablet (Eliquis) 5 mg PO BID #1 TAB 09/12/24 02/05/25 Rx ketoconazole 2 % topical cream 1 applic topical BID 10/06/24 Unknown History quetiapine 25 mg tablet 25 mg PO QHS 10/06/24 Unknown History guaifenesin 1,200 mg tablet, 1,200 mg PO TID PRN congestion 10/20/24 Unknown History extended release 12 hr (Mucinex) fluticasone fur. 200 mcg-umeclid 1 inh inhalation Q24H #60 ea 11/09/24 Unknown Rx 62.5 mcg-vilant 25 mcg inhalat.powder (Trelegy Ellipta) pantoprazole 40 mg tablet,delayed 40 mg PO BID 30 days #60 tabs 11/19/24 02/09/25 08:30 Rx release (Protonix) triamcinolone acetonide 0.1 % 1 applic topical .QD 01/27/25 Unknown History topical cream fluticasone propionate 50 2 spray intranasal QDAY #16 grams 02/01/25 Unknown Rx mcg/actuation nasal spray,suspension atorvastatin 20 mg tablet 20 mg PO QHS 02/05/25 Unknown History cyanocobalamin (vitamin B-12) 1,000 mcg PO DAILY 02/05/25 Unknown History 1,000 mcg capsule montelukast 10 mg tablet 10 mg PO DAILY 02/05/25 Unknown History Allergy/AdvReac Type Severity Reaction Status Date / Time latex Allergy Rash Verified 02/09/25 12:48 varenicline tartrate (From Allergy Hives Verified 02/09/25 12:48 Chantix) aspirin AdvReac Upset Verified 02/09/25 12:48 Stomach Family History Father , age 50 CAD (coronary artery disease) Heart disease Myocardial infarction Mother Diabetes Brother Hypertension Surgical History S/P percutaneous endoscopic gastrostomy (PEG) tube placement History of tracheostomy History of chest tube placement Hx of carpal tunnel repair Hx of angioplasty History of cardiac catheterization History of coronary artery stent placement Hx of shoulder surgery Hx of sinus surgery Hx of nasal sinusotomy Hx of cystoscopy Hx of tonsillectomy History of thumb surgery Hx of right knee surgery Presence of coronary angioplasty implant and graft (~06/27/08) History of hernia repair Social History household members: significant other and children Smoking Status: Former smoker alcohol intake: never substance use type: does not use caffeine: Yes Type: coffee Number of servings: 3 what type of physical activity do you participate in: walking frequency: daily duration: 45-60 minutes/day seatbelt use: always do you feel safe at home: Yes ROS Constitutional Constitutional: Denies fatigue, fever(s), poor appetite, weight gain or weight loss Gastrointestinal Gastrointestinal: Denies belching, bloating, change in bowel habits, change in stool character, chewing difficulty, coffee ground emesis, constipation, cramping, diarrhea, dyspepsia, dysphagia, early satiety, excessive flatus, fecal incontinence, heartburn, hematemesis, hematochezia, hemorrhoids, loose stools, melena, nausea, odynophagia, rectal bleeding, tenesmus, vomiting or weight changes Vital Signs Vital Signs Vital Signs: 02/09/25 12:50 02/09/25 12:50 02/09/25 13:16 Temperature 97.6 F L 97.6 F L Temperature Source Temporal Pulse Rate 80 80 Respiratory Rate 18 18 Respiratory Pattern Normal Blood Pressure 131/86 H 131/86 H Blood Pressure Mean 101 Blood Pressure Source Monitor Blood Pressure Position Sitting Blood Pressure Location Left Arm Pulse Ox 97 97 Oxygen Delivery Method Room Air Weight Weight: 157 lb 6.561 oz Body Mass Index (BMI) 23.9 Physical Exam Const alert, oriented x3, no apparent distress and healthy appearing General Appearance: cooperative GI normal to inspection, nondistended, normoactive bowel sounds, soft to palpation, non-tender and non-distended Percussion: normal to percussion Rectal Exam: deferred Assessment & Plan Assessment/Plan (1) Acute upper GI bleeding: (2) Gastric ulcer: QUALIFIERS: Gastric ulcer chronicity: acute Gastric ulcer complication status: with hemorrhage Qualified Code(s): K25.0 - Acute gastric ulcer with hemorrhage PLAN: Assessment and Plan Assessment and Plan (1) Gastric ulcer: Status: Acute Qualifiers: Gastric ulcer complication status: with hemorrhage Gastric ulcer chronicity: acute Qualified Code(s): K25.0 - Acute gastric ulcer with hemorrhage (2) Esophagitis determined by endoscopy: Status: Acute Medications: Refilled pantoprazole (Protonix) 40 mg PO BID 30 days 60 tabs 2RF Plan 64y/o male was admitted 10/28/2024 with vomiting black material and Gastroccult positive. He was admitted and EGD performed which revealed Grade D erosive esophagitis and oozing gastric ulcers. G -tube was removed. He was started on pantoprazole 40mg BID and famotidine was discontinued. He resumed apixiban on 11/07/2024. He denies any recurrent episodes of hematemesis and denies any melena. I have recommended he decrease his daily caffeine intake, continue PPI twice daily and we will plan to repeat EGD in 12 to 16 weeks. Patient Instructions: Go to ED with any recurrent bleeding
--- NOTE | 2025-02-09 15:24 | OP.EGD_ITS ---
Patient Name: Panchito Lima Procedure Date: 02/09/2025 2:32 PM Date of : 1960 Age: 64 Procedure: Upper GI endoscopy Indications: Peptic ulcer Providers: DO Smith Cooper MD: Alexey Mayberry Medicines: Monitored Anesthesia Care Patient Profile: This is a 64 year old male. Refer to note in patient chart for documentation of history and physical. Patient has symptoms. His most recent EGD for treatment of bleeding. Complications: No immediate complications. Procedure: Pre-Anesthesia Assessment: - Prior to the procedure, a History and Physical was performed, and patient medications and allergies were reviewed. The patient is competent. The risks and benefits of the procedure and the sedation options and risks were discussed with the patient. All questions were answered and informed consent was obtained. Patient identification and proposed procedure were verified by the physician in the pre-procedure area. Mental Status Examination: alert and oriented. Airway Examination: normal oropharyngeal airway and neck mobility. Respiratory Examination: clear to auscultation. CV Examination: normal. Prophylactic Antibiotics: The patient does not require prophylactic antibiotics. Prior Anticoagulants: The patient has taken no anticoagulant or antiplatelet agents except for NSAID medication. ASA Grade Assessment: II - A patient with mild systemic disease. After reviewing the risks and benefits, the patient was deemed in satisfactory condition to undergo the procedure. The anesthesia plan was to use monitored anesthesia care (MAC). Immediately prior to administration of medications, the patient was re-assessed for adequacy to receive sedatives. The heart rate, respiratory rate, oxygen saturations, blood pressure, adequacy of pulmonary ventilation, and response to care were monitored throughout the procedure. The physical status of the patient was re-assessed after the procedure. After obtaining informed consent, the endoscope was passed under direct vision. Throughout the procedure, the patient's blood pressure, pulse, and oxygen saturations were monitored continuously. The gastroscope was introduced through the mouth, and advanced to the second part of duodenum. The upper GI endoscopy was accomplished without difficulty. The patient tolerated the procedure well. Scope In: 3:12:41 PM Scope Out: 3:14:18 PM Total Procedure Duration Time 0 hours 1 minute 37 seconds Findings: The examined esophagus was normal. A small hiatal hernia was present. Mildly erythematous mucosa without bleeding was found in the gastric antrum. Biopsies were taken with a cold forceps for histology. Biopsies were taken with a cold forceps for Helicobacter pylori testing. Verification of patient identification for the specimen was done. Estimated blood loss was minimal. No gross lesions were noted in the entire examined duodenum. Impression: - Normal esophagus. - Small hiatal hernia. - Erythematous mucosa in the antrum. Biopsied. - No gross lesions in the entire examined duodenum. Recommendation: - Discharge patient to home. - Resume previous diet. - Continue present medications. - Await pathology results. Procedure Code(s): --- Professional --- 20101, Esophagogastroduodenoscopy, flexible, transoral; with biopsy, single or multiple CPT copyright 2021 [employer]. All rights reserved. The codes documented in this report are preliminary and upon analysis director review may be revised to meet current compliance requirements. David Jackson DO 02/09/2025 3:23:59 PM This report has been signed electronically. Number of Addenda: 0 Note Initiated On: 02/09/2025 2:32 PM
--- NOTE | 2025-02-09 15:24 | OP.CCLET_ITS ---
02/09/2025 Alexey Mayberry [address] [place] [address] Re : Upper GI endoscopy procedure for Panchito Lima Dear Dr. Mayberry This procedure was performed on Sunday, February 09, 2025. My impressions and recommendations are as follows: Impressions : - Normal esophagus. - Small hiatal hernia. - Erythematous mucosa in the antrum. Biopsied. - No gross lesions in the entire examined duodenum. Recommendations : - Discharge patient to home. - Resume previous diet. - Continue present medications. - Await pathology results. My findings are described in the full procedure note, which is enclosed. If I can be of further assistance, please feel free to contact me at . Sincerely, David Jackson, 02/09/2025 3:23:59 PM This report has been signed electronically.
--- NOTE | 2025-02-09 16:13 | PCM.POST.ANE ---
Anesthesia: Postop Eval I Current Vital Signs Temperature: 98.3 F Pulse Rate: 76 Blood Pressure: 110/65 Respiratory Rate: 16 Pulse Ox: 96 Assessment Airway patent: Yes Spontaneous unlabored respirations: Yes Mental status: Awake nausea: No Vomiting: No Anesthesia Complication: No Fluid Hydration Crystalloid volume administer (ml): 50 Total IV fluid infused: 50 Progress Note Anesthesia document: Postop Eval 1 completed: Yes
--- NOTE | 2025-02-09 16:19 | PCM.POSTANE2 ---
Anesthesia Postop Eval I Sum Postop Eval Completion status Anesthesia document: Postop Eval 1 completed: Yes Anesthesia Postop Eval I Summary Anesthesia Postop Eval I Summary: Anesthesia Postop Eval I: Assessment Summary Airway patent Yes 02/09/25 16:14 Spontaneous unlabored Yes 02/09/25 16:14 respirations Mental status Awake 02/09/25 16:14 nausea No 02/09/25 16:14 Vomiting No 02/09/25 16:14 Anesthesia Postop Eval I: Fluid Summary Crystalloid volume administer 50 02/09/25 16:14 (ml) Colloids volume administered ( ml) Blood Product volume administered (ml) Total IV fluid infused 50 02/09/25 16:14 Anesthesia Postop Eval I: Summary Notes Anesthesia Complication No 02/09/25 16:14 Anesthesia Complication Comment: Post-operative progress note Anesthesia: Postop Eval II Evaluation Mental status: Awake Pain Level: 0 nausea: No Vomiting: No
== END 2025-02-09 15:52 | disposition home or self-care (01) ==
LOC: EN 12:24 → AC 12:25
PROVIDERS: PCP Internal Medicine; Referring Provider Internal Medicine; Visit Provider Internal Medicine Gastroenterology
PROC: 0DJ08ZZ Inspection of Upper Intestinal Tract, Via Natural or Artificial Opening Endoscopic (ICD-10-PCS; CPT 43235; principal; 2025-02-09 13:20)
DX: K29.50 Unspecified chronic gastritis without bleeding (principal); J44.9 Chronic obstructive pulmonary disease, unspecified; Z87.891 Personal history of nicotine dependence; K21.9 Gastro-esophageal reflux disease without esophagitis; K44.9 Diaphragmatic hernia without obstruction or gangrene; I10 Essential (primary) hypertension; E78.5 Hyperlipidemia, unspecified; I25.10 Atherosclerotic heart disease of native coronary artery without angina pectoris; Z79.899 Other long term (current) drug therapy; Z79.01 Long term (current) use of anticoagulants
CPT/HCPCS: 43239; 88305; 88342

== ENCOUNTER 2025-04-08 06:33 | Inpatient (IN) | payer MEDICARE, MEDICAID, SELFPAY ==
[2025-04-08] VITALS (35 sets, daily range): BP systolic 67–109; BP diastolic 50–80; PULSE 76–114; RESP 16–26; TEMP 36.8–38.8; O2SAT 78–98; BMI 24.0; BMI 27.8
--- NOTE | 2025-04-08 06:43 | EKG12_ITS ---
Test Reason : GENERAL Blood Pressure : */* mmHG Vent. Rate : 112 BPM Atrial Rate : 112 BPM P-R Int : 114 ms QRS Dur : 74 ms QT Int : 338 ms P-R-T Axes : 41 -35 78 degrees QTcB Int : 461 ms Sinus tachycardia Left axis deviation Inferior-posterior infarct (cited on or before 19-Mar-2023) Abnormal ECG Confirmed by KATHI JOSEPH ([id number]), photograph editor THERESA OLIVEIRA ([id number]) on 04/12/2025 6:44:52 AM Referred By: Juice Confirmed By: KATHI JOSEPH
--- NOTE | 2025-04-08 06:45 | EX.ED.DYSGE1 ---
HPI History of Present Illness Chief Complaint: Fever Narrative Narrative: 64-year-old male past medical history of COPD, does not wear oxygen at home, quit smoking last year presents via EMS with fever and cough. He states that he woke in the middle the night with nausea and vomiting. He vomited once. He denies any abdominal pain. However, EMS reports that he was hypoxic and needed oxygen. Upon arrival, he was found to have a fever and low pulse ox in the 70s. He denies any dysuria or hematuria, no diarrhea, no runny nose. He does have occasional cough and may feel short of breath. [facility] Medical History Easy bruising History of GI bleed MRSA (methicillin resistant staph aureus) culture positive Chronic neuropathic pain Former smoker Myocardial infarct Pneumonia Tracheostomy in place Foraminal stenosis of cervical region Cervical spondylosis Ribs, multiple fractures Respiratory arrest before cardiac arrest Wears dentures Wears glasses Arthritis History of hiatal hernia Gastric reflux Sleep apnea Hypertension History of echocardiogram History of stress test Cardiology follow-up encounter History of heart attack GERD (gastroesophageal reflux disease) Dysphagia Hypersomnia Bronchiectasis Asthma-COPD overlap syndrome BPH (benign prostatic hyperplasia) Paroxysmal atrial tachycardia Paroxysmal ventricular tachycardia Premature ventricular contraction HCAP (healthcare-associated pneumonia) Atherosclerotic heart disease of [place] coronary artery without angina pectoris Ischemic cardiomyopathy HLD (hyperlipidemia) History of pulmonary embolism Home Medications ?Medication ?Instructions ?Recorded ?Last Taken ?Type gabapentin 400 mg capsule 800 mg (2 x 400 mg) PO TID #1 cap 08/10/24 02/09/25 08:30 Rx bupropion HCl 150 mg 24 hr tablet, 150 mg PO BID 08/16/24 02/09/25 08:30 History extended release albuterol sulfate 2.5 mg/3 mL 2.5 mg inhalation Q4H PRN PRN 09/11/24 Unknown History (0.083 %) solution for nebulization wheezing furosemide 40 mg tablet (Lasix) 40 mg PO DAILY 09/11/24 Unknown History ipratropium 0.5 mg-albuterol 3 mg 3 ml inhalation Q6H PRN PRN dyspnea 09/11/24 Unknown History (2.5 mg base)/3 mL nebulization soln ketoconazole 2 % topical cream 1 applic topical BID 10/06/24 Unknown History quetiapine 25 mg tablet 25 mg PO QHS 10/06/24 Unknown History guaifenesin 1,200 mg tablet, 1,200 mg PO TID PRN congestion 10/20/24 Unknown History extended release 12 hr (Mucinex) fluticasone fur. 200 mcg-umeclid 1 inh inhalation Q24H #60 ea 11/09/24 Unknown Rx 62.5 mcg-vilant 25 mcg inhalat.powder (Trelegy Ellipta) triamcinolone acetonide 0.1 % 1 applic topical .QD 01/27/25 Unknown History topical cream fluticasone propionate 50 2 spray intranasal QDAY #16 grams 02/01/25 Unknown Rx mcg/actuation nasal spray,suspension atorvastatin 20 mg tablet 20 mg PO QHS 02/05/25 Unknown History cyanocobalamin (vitamin B-12) 1,000 mcg PO DAILY 02/05/25 Unknown History 1,000 mcg capsule montelukast 10 mg tablet 10 mg PO DAILY 02/05/25 Unknown History omeprazole 40 mg capsule,delayed 40 mg PO QDAY #90 caps 04/06/25 Unknown Rx release Allergy/AdvReac Type Severity Reaction Status Date / Time latex Allergy Rash Verified 04/08/25 06:34 varenicline tartrate (From Allergy Hives Verified 04/08/25 06:34 Chantix) aspirin AdvReac Upset Verified 04/08/25 06:34 Stomach Family History Father , age 50 CAD (coronary artery disease) Heart disease Myocardial infarction Mother Diabetes Brother Hypertension Surgical History S/P percutaneous endoscopic gastrostomy (PEG) tube placement History of tracheostomy History of chest tube placement Hx of carpal tunnel repair Hx of angioplasty History of cardiac catheterization History of coronary artery stent placement Hx of shoulder surgery Hx of sinus surgery Hx of nasal sinusotomy Hx of cystoscopy Hx of tonsillectomy History of thumb surgery Hx of right knee surgery Presence of coronary angioplasty implant and graft (~06/27/08) History of hernia repair Social History household members: significant other and children Smoking Status: Former smoker alcohol intake: never substance use type: does not use caffeine: Yes Type: coffee Number of servings: 3 what type of physical activity do you participate in: walking frequency: daily duration: 45-60 minutes/day seatbelt use: always do you feel safe at home: Yes ROS ROS ED ROS Narrative Review of systems positive for cough, shortness of breath. Positive nausea and vomiting x 1. No diarrhea. No abdominal pain. Denies fevers or chills. No runny nose. No chest pain. EXAM Physical Exam Narrative Exam Narrative: Positive fever. Nontoxic-appearing. Cardiovascular examination reveals regular tachycardia. Lungs are clear to auscultation bilaterally anteriorly. However auscultation posteriorly reveals decreased breath sounds at the left base with occasional rhonchi and crackles on the right base. Mild tachypnea. Abdomen soft and nontender without guarding or rebound. Positive bowel sounds. Neurological examination nonfocal, nonlateralizing. Const Vital Signs: 04/08/25 06:35 04/08/25 06:35 04/08/25 06:39 Temperature 101.1 F H 101.1 F H Temperature Source Oral Oral Pulse Rate 114 H 108 H Respiratory Rate 22 H 22 H Respiratory Effort Respiratory Pattern Blood Pressure 101/69 101/69 Blood Pressure Mean 79 79 Pulse Ox 78 84 90 Oxygen Delivery Method Room Air Nasal Cannula Nasal Cannula Oxygen Flow Rate (L/min) 2 2 04/08/25 06:39 04/08/25 06:46 04/08/25 07:05 Temperature Temperature Source Pulse Rate 109 H Respiratory Rate 24 H Respiratory Effort Short of Breath Labored Accessory Muscle Use Respiratory Pattern Tachypnea Blood Pressure Blood Pressure Mean Pulse Ox 89 Oxygen Delivery Method Nasal Cannula Oxygen Flow Rate (L/min) 3 Sepsis Attestation Sepsis Alert: Yes Sepsis Attestation: Agree w/Sepsis Date exam was performed: 04/08/25 Time exam was performed: 07:05 Possible Source of Sepsis: Pulmonary Sepsis Organ Dysfunction Criteria Present: Acute Respiratory Failure (New need for BiPAP/CPAP or MV) and New/Unexplained change in mental status MDM MDM MDM Narrative Medical decision making narrative: The differential diagnosis includes but not limited to COPD exacerbation versus pneumonia versus pneumothorax. I have low suspicion for pneumothorax because the history and physical does not support this. As the patient has a fever and is tachycardic, and hypoxic, he was placed on nasal cannula oxygen with resultant rise in his SPO2. He was administered Tylenol 650 mg orally and sepsis workup pursued. He will also be swabbed for COVID, influenza, and RSV as well. I do feel chest x-ray is indicated. Patient had a soft blood pressure so he was bolused normal saline 1 L intravenously initially. Comprehensive workup was pursued/sepsis workup. EKG was obtained interpreted by myself independently as sinus tachycardia at [address] changes. No STEMI. Patient states he is not having any chest pain or pressure currently. My individual interpretation of his chest x-ray, he has a left lower lobe pneumonia when compared to prior in September. He will be started on antibiotics. I reviewed the radiology report which confirms my independent interpretation of the left lower lobe pneumonia. While sepsis workup is still being pursued, given his hypoxia as he does not wear oxygen at home but does have a history of COPD, I do feel that he requires admission. Patient has normal white count of 10.9 on review of his CBC with hemoglobin 12.7, platelet count elevated at 481 which may be more of an acute phase reactant. At this point in time, patient signed out to Dr. Linda to review the remaining labs and discuss with the hospitalist for admission. He is currently in stable condition. History & Record Review Discussion w/independent historian: Patient Additional record(s) reviewed:: Prior ED visit (Seen in Oct for GI bleed) Lab Data Attestation: I reviewed the patient's lab results. Labs: Laboratory Results - last 24 hr 04/08/25 06:51 WBC 10.9 RBC 4.98 Hgb 12.7 L Hct 40.7 MCV 81.7 MCH 25.5 L MCHC 31.2 L RDW Std Deviation 48.3 H RDW Coeff of [place] 16.1 H Plt Count 481 H MPV 9.5 Immature Gran % (Auto) 0.600 Neut % (Auto) 91.4 H Lymph % (Auto) 3.6 L [place] % (Auto) 3.5 Eos % (Auto) 0.6 Baso % (Auto) 0.3 Absolute Neuts (auto) 10.0 H Absolute Lymphs (auto) 0.39 L Nucleated RBC % 0 Radiography Chest X-Ray - ED: 1 View, Read by ED Physician, Read by Radiologist and Left Infiltrate (Lower lobe) Diagnostic Testing: Clinical Impression(s) from Imaging Studies Chest X-Ray 08/07/25 06:54 IMPRESSION: Left lower lobe infiltrate. Reading Location: [id number] Management Discussion w/another healthcare provider: Hospitalist Discharge Plan Dx/Rx/DC Orders Clinical Impression: Pneumonia, Nausea and vomiting, Hypoxia Disposition Disposition: Acute Care Hospital [facility]
--- NOTE | 2025-04-08 06:54 | RAD_ITS ---
PROCEDURE: CHEST 1 VIEW (PORTABLE) 04/08/2025 REASON FOR EXAM: FEVER, COUGH TECHNIQUE: Frontal view of the chest. COMPARISON: Prior study dated September 11, 2024. FINDINGS: Hardware: EKG electrodes are seen. The previously seen tracheostomy tube is not seen at this time. Heart: Heart size is upper limits of normal. Lungs: Focal infiltrate in the left lower lobe. Bones: Degenerative changes are identified within the thoracic spine. Healed right rib fractures. Other: RAD/Chest 1 View (Portable) IMPRESSION: Left lower lobe infiltrate. Reading Location: [id number]
[2025-04-08] MEDS: 0.9% Normal Saline (1000mL) 1,000 ML 999 ML IV ×2 (06:55→07:15)
--- OUTSIDE RECORDS SUMMARY | 2025-04-08 07:10 | XMS RPT_ITS | CCD ---
Author Organization [facility] Care Team Providers Care Environmental Emergencies Assistant Name Role Phone Antonio Reddy Unavailable Unavailable Mayda RN, Sierra L Unavailable SEIFU, ELMO Unavailable Unavailable SEIFU, ELMO Unavailable Unavailable DeFinis, Harumi Y Unavailable Unavailable DeFinis, Harumi Y Unavailable Unavailable Antonio Reddy Unavailable Unavailable Alexey Mayberry MD Primary Care Provider Dr. Alexey Mayberry Primary Care Provider Dr. Román Herndon Emergency Provider Dr. Crispin Ivory Attending Provider Dr. Crispin Ivory Admit Provider Dr. Crispin Ivory Referring Provider Dr. Bruce Devries Other Provider Dr. Nic Weems Attending Provider Dr. Nic Weems Other Provider Karime MANAGER OF DISASTER RECOVERY, MANAGER OF DISASTER RECOVERY-C Debbi Other Provider Dr. Chaka James Other Provider Unavailable Dr. Chaka James Attending Provider Unavailable Dr. Jese Antonio Other Provider Dr. Jese Antonio Attending Provider Dr. Alexey Mayberry Referring Provider Karime MANAGER OF DISASTER RECOVERY, MANAGER OF DISASTER RECOVERY-C Debbi Attending Provider Dr. Bruce Devries Attending Provider Dr. Aldair Walsh Emergency Provider Dr. Luiz Estevez Admit Provider Dr. Luiz Estevez Other Provider GEMA Davis Attending Provider Unavail able Asad, Dr. Blackburn Primary Care Provider Dr. Luiz Estevez Attending Provider Dr. Dean Cheney Attending Provider Dr. Dean Cheney Other Provider Alexey Mayberry MD Primary Care Provider LALO, DR ZORAIDA Vidales Attending Unavaila ble LALO, DR ZORAIDA Vidales Primary Care Unavaila ble LALO, DR ZORAIDA Vidales Admitting Unavaila darling Mayberry, Dr. Blackburn Primary Care Provider Dr. Alexey Mayberry Referring Provider Karime MANAGER OF DISASTER RECOVERY, MANAGER OF DISASTER RECOVERY-C Debbi Attending Provider Dr. Crispin Upton Attending Provider Dr. Bruce Devries Attending Provider Dr. Alexey Mayberry Primary Care Provider Dr. Crispin Upton Attending Provider VIOLET Singh Referring Provider Dr. Alexey Mayberry Referring Provider Karime MANAGER OF DISASTER RECOVERY, MANAGER OF DISASTER RECOVERY-C Debbi Attending Provider Jl ASENCIO, MANAGER OF DISASTER RECOVERY-C Wen Chow Attending Provider Dr. Alexey Mayberry Primary Care Provider Dr. David Jackson Attending Provider Dr. David Jackson Other Provider Alexey Mayberry MD Primary Care Provider Dr. Alexey Mayberry Primary Care Provider Dr. Alexey Mayberry Referring Provider Jl ASENCIO, MANAGER OF DISASTER RECOVERY-C Wen Chow Attending Provider Ruth MANAGER OF DISASTER RECOVERY, MANAGER OF DISASTER RECOVERY-C Blake Gonzalez Attending Provider Karime MANAGER OF DISASTER RECOVERY, MANAGER OF DISASTER RECOVERY-C Debbi Attending Provider Dr. Dixon Silva Referring Provider Dr. Dixon Silva Other Provider Dr. Henry Velazquez Attending Provider Dr. Alexey Mayberry Primary Care Provider Dr. Alexey Mayberry Referring Provider Dr. Burce Devries Attending Provider PHYSICIAN, NONE Primary Care Physician Unavailab MIC Valentine PA-C Attending Unavailable PHYSICIAN, NONE Primary Care Unavailable Dr. Alexey Mayberry Primary Care Provider Dr. Alexey Mayberry Referring Provider Dr. Bruce Devries Attending Provider Asad, Dr. Blackburn Primary Care Provider Dr. Dixon Martínez Attending Provider VIOLET Singh Referring Provider Dr. Alexey Mayberry Referring Provider Karime ASENCIO, GEMA Werner Attending Provider Dr. Alexey Mayberry Primary Care Provider Dr. Alexey Mayberry Referring Provider Karime MANAGER OF DISASTER RECOVERY, LUIS M-Efren Werner Attending Provider Ruth MANAGER OF DISASTER RECOVERY, MANAGER OF DISASTER RECOVERY-C Blake Gonzalez Attending Provider Alexey Mayberry MD Primary Care Provider ALEXEY MAYBERRY Primary Care Unavailable GABRIEL BROWN Admitting Unavailable KAREN HERNANDEZ Attending Unavailable TONY HOLLAND Consulting Unavailable [facility] AWNING INSTALLER.FELLING MACHINE OPERATOR, Heather Chow Unavailable December MARION, Juli Johnson Unavailable Rajiv VICE PRESIDENT PAYER, Yany Unavailable Unavailsondra Figueroa MD, Shemar Cormier Unavailable Jose Duff MD Emergency Provider Care Physician, No Primary Primary Care Provider Unavailable Vitor RICE, Dr. Jaqui Wilks Admit Provider Vitor RICE, Dr. Jaqui Wilks Attending Provider Vitor RICE, Dr. Jaqui Wilks Other Provider Vitor RICE, Dr. Jaqui Wilks Referring Provider Osvaldo MALDONADO, Dr. Andre Attending Provider Osvaldo MALDONADO, Dr. Andre Other Provider Karime MANAGER OF DISASTER RECOVERY-C, Debbi Attending Provider Care Physician, No Primary Referring Provider Un available Sierra Spring Attending Provider [facility] Doctor, Out of Primary Care Provider Hiro Merino MANAGER OF DISASTER RECOVERY-CSusan Attending Provider Edel MANAGER OF DISASTER RECOVERY-CDelphine Attending Provider [facility] Doctor, Out of Referring Provider Unavailab jcarlos Duff MD, Jose Referring Provider Asad RICE, Dr. Blackburn Primary Care Provider Dr. Dean Cheney DO Admit Provider Dr. Dean Cheney DO Other Provider Dr. Liuz Esetvez MD Attending Provider Dr. Dean Cheney DO Attending Provider Dr. Luiz Estevez MD Other Provider Dr. David Jackson DO Attending Provider Karime MANAGER OF DISASTER RECOVERY-CDebbi Referring Provider Karime MANAGER OF DISASTER RECOVERY-C, Debbi Attending Provider Care Physician, No Primary Primary Care Provider Unavailable Care Physician, No Primary Referring Provider Un available [place] Attending Provider [facility] Doctor, Out of Primary Care Provider Hiro Merino MANAGER OF DISASTER RECOVERY-C, Susan Attending Provider Edel MANAGER OF DISASTER RECOVERY-C, Delphine Chow Attending Provider [facility] Doctor, Out of Referring Provider Unavailab jcarlos Duff MD, Jose Referring Provider Sherin RICE, Jose Emergency Provider Dr. Alexey Mayberry MD Primary Care Provider Noni MALDONADO, Dr. Moran Admit Provider Noni MALDONADO, Dr. Moran Other Provider Herb RICE, Dr. Luiz Sharma Attending Provider Noni MALDONADO, Dr. Moran Attending Provider Dr. Luiz Estevez MD Other Provider Dr. David Jackson DO Attending Provider Karime ASENCIO-CDebbi Referring Provider Care Physician, No Primary Referring Provider Un available Karime ASENCIO-CDebbi Attending Provider Dr. Alexey Mayberry MD Referring Provider Dr. David Jackson DO Other Provider [facility] Doctor, Out of Referring Provider Unavailab jcarlos Merino NP-C, Susan Attending Provider Dr. Alexey Mayberry MD Attending Provider Dr. Alexey Mayberry MD Primary Care Provider [facility] Doctor, Out of Referring Provider Unavailab jcarlos Jackson DO, Dr. Hernandez Attending Provider Gabriel MANAGER OF DISASTER RECOVERY-C, Susan Attending Provider Dr. Alexey Mayberry MD Attending Provider Serenity RICE Dr. Godfrey Attending Provider [phone] ASAD, LETITIA Referring Unavailable MAYBERRY, LETITIA Primary Care Unavailable MAYBERRY, LETITIA Attending Unavailable MAYBERRY, LETITIA Primary Care Unavailable MAYBERRY, LETITIA Referring Unavailable MAYBERRY, ALEXEY Gonzalez Primary Care Unavailable MAYBERRY, LETITIA Referring Unavailable MAYBERRY, ALEXEY Gonzalez Primary Care Unavailable MAYBERRY, LETITIA Primary Care Unavailable MAYBERRY, LETITIA Attending Unavailable HEATHER DAVIS Attending Unavailable MAYBERRY, LETITIA Primary Care Unavailable SELF Referring Unavailable MAYBERRY, LETITIA Attending Unavailable MAYBERRY, ALEXEY Gonzalez Primary Care Unavailable MAYBERRY, LETITIA Attending Unavailable MAYBERRY, ALEXEY Gonzalez Primary Care Unavailable MAYBERRY, LETITIA Attending Unavailable MAYBERRY, ALEXEY Gonzalez Primary Care Unavailable MAYBERRY, ALEXEY Gonzalez Referring Unavailable MAYBERRY, ALEXEY Gonzalez Primary Care Unavailable BOB REBOLLEDO Attending Unavailable GENERIC PROVIDER, NO ASSIGNED PCP Primary Care Unavailable BOB REBOLLEDO Admitting Unavailable BOB REBOLLEDO Attending Unavailable GENERIC PROVIDER, NO ASSIGNED PCP Primary Care Unavailable BOB REBOLLEDO Attending Unavailable BOB REBOLLEDO Attending Unavailable Noni, Dean Consulting Unavailable Luiz Estevez Attending Unavailable Alexey Mayberry Primary Care Unavailable Reodica, Jose Referring Unavailable Jopperi, Dean Admitting Unavailable White, Jaqui L Referring Unavailable White, Jaqui L Admitting Unavailable White, Jaqui L Consulting Unavailable Care Physician, No Primary Primary Care Unava ilable Thai Riley Attending Unavailable David Jackson Consulting Unavailable SementiChandni Attending Unavaila ble Mayberry, Alexey Primary Care Unavailable SementiChandni Referring Unavaila ble Sementi, Chandni Sutton Admitting Unavaila ble David Jackson Attending Unavailable Asad, Alexey Primary Care Unavailable Mayberry, Victor Referring Unavailable Jopperi, Dean Consulting Unavailable Mayberry, Alexey Primary Care Unavailable Reodica, Jose Referring Unavailable Jopperi, Dean Admitting Unavailable Luiz Estevez Attending Unavailable Luiz Estevez Consulting Unavailable David Jackson Attending Unavailable Alexey Mayberry Attending Unavailable Mayberry, Alexey Primary Care Unavailable Mayberry, Alexey Referring Unavailable Mayberry, Alexey Primary Care Unavailable Sementi, Nuzhat Attending Unavaila ble Sementi, Nuzhat Referring Unavaila ble Sementi, Nuzhat Admitting Unavaila ble Sementi, Chandni Sutton Consulting Unavaila ble Susan Merino Attending Unavailable Town Doctor, Out of Primary Care Unavailable Care Physician, No Primary Referring Unava ilable Friend, David Consulting Unavailable Mayberry, Alexey Primary Care Unavailable Dean Linda Attending Unavailable Mayberry, Alexey Primary Care Unavailable Jerson Whitehead Attending Unavailable Mayberry, Alexey Primary Care Unavailable CarmeloDonnie obrienril Referring Unavailable CarmeloSean obrien Attending Unavailable Rosa Heck Referring Unavailable Rosa Heck Attending Unavailable Mayberry, Alexey Primary Care Unavailable White, Jaqui L Admitting Unavailable White, Jaqui L Consulting Unavailable White, Jaqui L Referring Unavailable Care Physician, No Primary Primary Care Unava ilable Thai Riley Attending Unavailable TereletskyThai Consulting Unavailable White, Jaqui L Admitting Unavailable White, Jaqui L Consulting Unavailable White, Jaqui L Attending Unavailable White, Jaqui L Referring Unavailable Care Physician, No Primary Primary Care Unava ilable Frank Cheneyic Consulting Unavailable Dean Cheney Attending Unavailable Mayberry, Alexey Primary Care Unavailable Reodica, Jose Referring Unavailable Noni Dean Admitting Unavailable Friend, David Attending Unavailable Town Doctor, Out of Primary Care Unavailable Friend, David Attending Unavailable Friend, David Attending Unavailable Friend, David Consulting Unavailable Alexey Mayberry Referring Unavailable Mayberry, Alexey Primary Care Unavailable Care Physician, No Primary Referring Unava ilable [place] Attending Unavail able Town Doctor, Out of Primary Care Unavailable Town Doctor, Out of Referring Unavailable Town Doctor, Out of Primary Care Unavailable Delphine Hollingsworth Attending Unavailable Susan Merino Attending Unavailable Mayberry, Alexey Primary Care Unavailable Town Doctor, Out of Referring Unavailable Town Doctor, Out of Referring Unavailable Karime MANAGER OF DISASTER RECOVERY, Debbi Attending Unavailable Mayberry, Alexey Primary Care Unavailable Karime MANAGER OF DISASTER RECOVERY, Debbi Attending Unavailable Care Physician, No Primary Referring Unava ilable Care Physician, No Primary Primary Care Unava ilable Godfrey Benton Attending Unavailable Mayberry, Alexey Primary Care Unavailable Mayberry, Alexey Referring Unavailable Susan Merino Attending Unavailable Mayberry, Alexey Primary Care Unavailable Mayberry, Alexey Referring Unavailable Sean Rhodes Attending Unavailable Mayberry, Alexey Primary Care Unavailable Mayberry, Alexey Referring Unavailable Karime MANAGER OF DISASTER RECOVERY, Debbi Attending Unavailable ANN, LOLA Primary Care Unavailable Mayberry, Alexey Referring Unavailable Mayberry, Alexey Primary Care Unavailable Dixon Martínez Attending Unavailable Chandni MachadoNuzhat Referring Unavailtrista Schaffer MANAGER OF DISASTER RECOVERY, Debbi Attending Unavailable Karime MANAGER OF DISASTER RECOVERY, Debbi Referring Unavailable Mayberry, Alexey Primary Care Unavailable Mayberry, Alexey Primary Care Unavailable Mele Campos Attending Unavailable RICHCREEK, LOLA Primary Care Unavailable Darren Barnes Attending Unavailable Mayberry, Alexey Primary Care Unavailable Ryann Yu Attending Unavailable Allergies Allergy Classification Reported Allergen(s) Allergy Type Date of Onset Reaction(s) Facility (20 sources) aspirin; Translations: [aspirin] drug allergy 0 GI Upset, Upset stomach (finding), GI intolerance [facility] Work Phone: (6 sources) varenicline; Translations: [CHANTIX] drug allergy 3 hives from dye in drug [facility] Work Phone: (20 sources) Latex; Translations: [LATEX] Drug Intolerance 0 Other: See Comments, Eruption of skin (disorder), Rash, Hives [facility] Work Phone: (20 sources) Seasonal allergy; Translations: [SEASONAL ALLERGIES] Allergy to substance 3 Other: See Comments [facility] (20 sources) varenicline; Translations: [VARENICLINE] Drug Allergy 0 [facility] (18 sources) varenicline; Translations: [varenicline tartrate] Drug Allergy 2 [facility] (1 source) ASPIR 81 Drug allergy (disorder) [facility] (1 source) Dust Drug allergy [facility] (1 source) influenza A virus A/[place]/GP19 04/2015 (H1N1) antigen / influenza A virus A/[place]/GP20 (H3N2) antigen / influenza B virus B/[place] antigen / influenza B virus B/ antigen; Translations: [influenza virus vaccine] Drug Allergy [facility] (1 source) Pneumococcal vaccine; Translations: [pneumococcal vaccine] Drug Allergy [facility] (1 source) Pet Dander Drug allergy [facility] (4 sources) Bee pollen; Translations: [BEE POLLEN] Drug Allergy 4 Other [facility] Work Phone: (4 sources) Pneumococcal vaccine; Translations: [PNEUMOCOCCAL VACCINE] Drug Allergy 5 Respiratory depression [facility] Work Phone: (1 source) Latex Drug allergy (disorder) 5 [facility] Rep[facility] Medications Current Medications Medication Drug Class(es) Dates Sig (Normalized) Sig (Original) albuterol 0.83 mg/ml inhalation solution (20 sources) beta2-Adrenergic Agonist Start: 09-11-2024 take 2.5 mg by inhalation every four hours as needed for wheezing Albuterol Sulfate 2.5 mg /3 mL (0.083 %) solution for nebulization Active 2.5 mg INHALATION EVERY 4 HOURS NEEDED as needed for wheezing September 11, 2024 1:00am Start: 09-11-2024 Start: 06-23-2024 End: 11-06-2024 albuterol (PROVENTIL) 2.5 mg /3 mL (0.083 %) nebulizer solution Indications: COPD exacerbation (HCC) , Bronchiectasis with acute exacerbation (HCC) Use 3 mL via nebulizer every 4 hours as needed for wheezing/shortness of breath. 150 mL 1 11/06/2024 Active Start: 04-23-2024 take 2 puff(s) by in halation every four hours as needed albuterol 90 mcg/actuation inhaler INHALE 2 PUFFS EVERY 4 HOURS NEEDED FOR ASTHMA 04/23/2024 Active Start: 09-26-2023 take 2.5 mg by inhal ation every four hours Albuterol Sulfate Active 2.5 MG INHALATION Q4H 180 September 26, 2023 4:24pm Start: 02-01-2023 End: 09-26-2023 take 2.5 mg by inhalation every four hours as needed for wheezing Albuterol Sulfate 2.5 mg /3 mL (0.083 %) solution for nebulization Discontinued 2.5 mg INHALATION Q4H as needed for shortness of breath or wheezing February 01, 2023 12:00am September 26, 2023 4:24pm Start: 02-01-2023 End: 09-26-2023 Start: 01-30-2022 End: 07-17-2024 Albuterol Sulfate 90 mcg/act uation HFA aerosol inhaler Discontinued 2 NMA INHALATION Q4H as needed for Asthma 8.5 September 26, 2023 3:24pm July 17, 2024 2:07pm Start: 01-30-2022 End: 09-26-2023 take 1 puff(s) by inhalation every four hours Albuterol Sulfate Discontinued 2 PUFF INHALATION Q4H 8.5 August 16, 2022 3:10pm March 15, 2023 11:25am Start: 08-02-2021 take 1 puff(s) by in halation every two hours Albuterol Sulfate Active 2 PUFF INHALATION Q2H 18 August 02, 2021 1:55pm Start: 06-13-2021 End: 08-02-2021 take 1 puff(s) by inhalation every two hours Albuterol Sulfate Discontinued 2 PUFF INHALATION Q2H 18 June 13, 2021 2:53pm August 02, 2021 1:55pm Start: 05-26-2020 take 2 puff(s) by in halation every four hours as needed albuterol HFA (PROAIR HFA) 90 mcg/actuation inhaler Inhale 2 Puffs as instructed every 4 hours as needed. 18 g 2 05/26/2020 Suspended Start: 03-04-2020 End: 07-27-2020 Albuterol Sulfate 1 INHALER inhaler Discontinued 2 NMA INHALATION EVERY 4 HOURS NEEDED as needed for Wheezing 1 0 March 04, 2020 12:00am July 27, 2020 11:52am Start: 03-04-2020 End: 07-27-2020 take 1 puff(s) by inhalation every four hours as needed Albuterol Sulfate Discontinued 2 PUFF INHALATION EVERY 4 HOURS NEEDED March 04, 2020 12:00am July 27, 2020 11:52am Start: 03-10-2019 End: 01-30-2022 Albuterol Sulfate 90 mcg/act uation HFA aerosol inhaler Discontinued 2 NMA INHALATION Q2H as needed for Asthma 18 August 02, 2021 1:55pm January 30, 2022 2:47pm Start: 03-10-2019 End: 07-17-2024 Start: 03-10-2019 End: 01-30-2022 take 1 puff(s) by inhalation every two hours Albuterol Sulfate Discontinued 2 PUFF INHALATION Q2H August 02, 2021 12:55pm January 30, 2022 1:47pm Start: 06-16-2013 End: 03-10-2019 take 1 puff(s) by inhalation every two hours Albuterol Sulfate Discontinued 2 PUFF INHALATION Q2H June 16, 2013 2:55pm March 10, 2019 3:42pm Start: 06-16-2013 End: 03-10-2019 Albuterol Sulfate 1 INHALER inhaler Discontinued 2 NMA INHALATION Q2H as needed for Asthma June 16, 2013 12:00am March 10, 2019 3:42pm Start: 06-16-2013 End: 03-10-2019 take 1 puff(s) by inhalation every two hours Albuterol Sulfate Discontinued 2 PUFF INHALATION Q2H June 16, 2013 12:00am March 10, 2019 3:42pm Start: 06-16-2013 End: 03-10-2019 take 1 puff(s) by inhalation every two hours Albuterol Sulfate Discontinued 2 PUFF INHALATION Q2H June 15, 2013 11:00pm March 10, 2019 2:42pm Start: 05-13-2013 End: 12-21-2014 ALBUTEROL SULFATE (2.5 MG/3M L) 0.083% NEBU prn ALBUTEROL SULFATE [id number] Lynda Ortiz RN Start: 05-13-2013 ALBUTEROL SULF ATE NEBU 90 Mcg/inh as needed ALBUTEROL SULFATE NEBU Lynda Ortiz RN Start: 10-12-2011 albuterol 2.5 mg /3 mL (0.083 %) INHALATION nebulizer solution Use via nebulizer every 6 hours as needed for Wheezing/Shortness of Breath. Inhale by nebulizer over 5-15 minutes 0 10/12/2011 Suspended Start: 06-27-2008 albuterol 90 m cg/inh inhal See Instructions, One or two puffs Q6hrs. PRN, current med (Hx) Start Date: 06/27/08 Status: Ordered Comment on above: Use via nebulizer ev bruce 6 hours as needed for Wheezing/Shortness of Breath. Inhale by nebulizer over 5-15 minutes Inhale 2 Puffs as in structed every 4 hours as needed. albuterol 0.833 mg/ml / ipratropium bromide 0.167 mg/ml inhalation solution (20 sources) Anticholinergic, beta2-Adrenergic Agonist Start: take 3 mL by inhalation every six hours as needed for wheezing ipratropium-albute rol (DUONEB) 0.5 mg-3 mg(2.5 mg base)/3 mL nebu Indications: COPD exacerbation (HCC) Inhale 3 mL as instructed every 6 hours as needed for wheezing/shortness of breath. 11/18/2024 Active Start: 09-11-2024 Start: 07-17-2024 End: 08-17-2024 take 1 mL by inhalation twice daily Ipratropium-Albuterol 0.5 mg-3 mg(2.5 mg base)/3 mL solution for nebulization Discontinued 3 mL INHALATION TWICE A DAY July 17, 2024 1:00am August 17, 2024 12:12pm shortness of breath/wheeze Start: 06-23-2024 End: 11-18-2024 take 3 mL by inhalation every four hours ipratropium-albuterol (DUONEB) 0.5 mg-3 mg(2.5 mg base)/3 mL nebu Inhale 3 mL as instructed every 4 hours. 06/23/2024 11/18/2024 Discontinued Start: 02-08-2024 End: 07-17-2024 take 1 mL by inhalation every six hours as needed Ipratropium-Albuterol 0.5 mg-3 mg(2.5 mg base)/3 mL solution for nebulization Discontinued 3 mL INHALATION EVERY 6 HOURS as needed for shortness of breath/wheeze 180 1 June 02, 2024 2:44pm July 17, 2024 2:32pm Start: 02-08-2024 End: 08-17-2024 Start: 05-15-2017 End: 06-30-2018 take 1 mL by inhalation every four hours Ipratropium-Albuterol 3 ML solution for nebulization Discontinued 3 mL INHALATION EVERY 4 HOURS 0 May 15, 2017 12:00am June 30, 2018 3:25pm Start: 05-15-2017 End: 06-30-2018 Start: 05-15-2017 End: 06-30-2018 take 1 mL by inhalation every four hours Ipratropium-Albuterol Discontinued 3 ML INHALATION EVERY 4 HOURS May 15, 2017 12:00am June 30, 2018 3:25pm amoxicillin 875 mg / clavulanate 125 mg oral tablet (20 sources) Penicillin-class Antibacterial Start: 03-19-2025 take 1 tablet by mouth once daily amoxicillin-clavulanate potassium (AUGMENTIN) 875-125 mg per tablet Take 1 tablet by mouth once daily. 03/19/2025 Active Start: 03-12-2025 amoxicillin-cl avulanate (Augmentin) 875-125 mg tablet Indications: Lesion of parotid gland Take one tablet twice a day for 7 days, then reduce to one tablet daily until day of surgery (04/14/25) 38 tablet 03/12/2025 Active Start: 02-26-2025 End: 03-08-2025 take 1 tablet by mouth twice daily amoxicillin-clavulanate (Augmentin) 875-125 mg tablet Indications: Lesion of parotid gland Take 1 tablet by mouth 2 times a day for 10 days. 20 tablet 02/26/2025 03/08/2025 Active Start: 05-31-2023 End: 07-11-2023 Amoxicillin-Pot Clavulanate 875-125 mg tablet Discontinued 1 {tbl} PO TWICE A DAY 10 June 24, 2023 9:50am July 11, 2023 10:19am Start: 05-31-2023 End: 07-11-2023 Start: 05-31-2023 End: 07-11-2023 take 1 tablet by mouth twice daily Amoxicillin-Pot Clavulanate Discontinued 1 TABLET PO TWICE A DAY June 24, 2023 8:50am July 11, 2023 9:19am Start: 02-01-2023 End: 04-11-2023 Amoxicillin-Pot Clavulanate 875-125 mg tablet Discontinued 1 {tbl} PO TWICE A DAY 10 February 01, 2023 12:00am April 11, 2023 7:44am On Hold: Ordered Start: 02-01-2023 End: 04-11-2023 Start: 02-01-2023 End: 04-11-2023 take 1 tablet by mouth twice daily Amoxicillin-Pot Clavulanate Discontinued 1 TABLET PO TWICE A DAY February 01, 2023 12:00am April 11, 2023 7:44am On Hold: Ordered Start: 09-13-2022 End: 12-20-2022 Amoxicillin-Pot Clavulanate 875-125 mg tablet Discontinued 1 {tbl} PO TWICE A DAY November 19, 2022 11:51am December 20, 2022 9:34am Start: 09-13-2022 End: 12-20-2022 Start: 09-13-2022 End: 12-20-2022 take 1 tablet by mouth twice daily Amoxicillin-Pot Clavulanate Discontinued 1 TABLET PO TWICE A DAY November 19, 2022 10:51am December 20, 2022 8:34am atorvastatin 20 mg oral tablet (20 sources) HMG-CoA Reductase Inhibitor Start: 08-07-2024 End: 02-05-2025 Atorvastatin 20 mg Tablet Discontinued 20 mg GT AT BEDTIME August 07, 2024 1:00am February 05, 2025 1:59pm Start: 08-07-2024 Start: 04-01-2021 End: 11-16-2024 take 1 tablet by mouth at bedtime Atorvastatin 20 mg Tablet Active 20 mg PO AT BEDTIME February 05, 2025 12:00am Start: 12-05-2017 End: 01-04-2020 take 1 tablet by mouth once daily Atorvastatin 20 mg tablet Discontinued 20 mg PO DAILY December 02, 2018 2:05pm January 04, 2020 8:26am cholesterol Start: 12-21-2014 take 1 tablet by edy th once daily ATORVASTATIN CALCIUM 20 MG TABS One tablet by mouth daily ATORVASTATIN CALCIUM [id number] Sierra Arrieta PA-C Start: 06-16-2013 End: 12-05-2017 take 2 tablets by mouth at bedtime Atorvastatin 10 MG tablet Discontinued 20 mg PO AT BEDTIME June 16, 2013 12:00am December 05, 2017 12:44pm cholesterol Start: 06-16-2013 End: 12-05-2017 take 1 tablet by mouth once daily LIPITOR 10 MG TABS One tablet by mouth daily ATORVASTATIN CALCIUM [id number] Lynda Ortiz RN Start: 06-16-2013 End: 12-05-2017 take 20 mg by mouth at bedtime Atorvastatin Discontinu ed 20 MG PO AT BEDTIME June 16, 2013 12:00am December 05, 2017 12:44pm Start: 06-10-2013 End: 10-29-2014 take 1 tablet by mouth once daily ATORVASTATIN CALCIUM 20 MG TABS One tablet by mouth daily ATORVASTATIN CALCIUM [id number] Crispin Upton MD Comment on above: Take 1 tablet by edy th daily at bedtime. For cholesterol. 12 hr buPROPion hydrochloride 150 mg extended release oral tablet (20 sources) Aminoketone Start: take 1 tablet by mouth twice daily buPROPion SR (WELLBUTRIN SR) 150 mg 12 hr tablet Indications: Major depressive disorder with psychotic features (HCC) Take 1 tablet by mouth two times a day. 60 tablet 5 02/20/2025 Active Start: 11-06-2024 End: 02-18-2025 take 1 tablet by mouth twice daily buPROPion SR (WELLBUTRIN SR) 150 mg 12 hr tablet Indications: Major depressive disorder with psychotic features (HCC) Take 1 tablet by mouth two times a day. 60 tablet 2 11/18/2024 02/18/2025 Discontinued Start: 10-19-2024 take 1.5 tablets by mouth once daily in the morning, then take 1.5 tablets by mouth once daily at bedtime buPROPion (Wellbutrin) 100 mg tablet TAKE 1.5 TABLETS BY MOUTH EVERY DAY IN THE MORNING and 1.5 TABLETS BY MOUTH EVERY DAY AT BEDTIME 10/19/2024 Active Start: 08-07-2024 End: 08-16-2024 take 1 tablet by mouth twice daily Bupropion Hcl 150 mg Tablet Extended Release 24 Hr Active 150 mg PO TWICE A DAY August 16, 2024 1:00am Start: 08-07-2024 End: 08-16-2024 take 1 tablet by mouth once daily Bupropion Hcl 150 mg Tablet Extended Release 24 Hr Discontinued 150 mg PO DAILY 1 August 07, 2024 1:00am August 16, 2024 5:31am Voltaren (2 sources) Nonsteroidal Anti-inflammatory Drug Start: 06-29-2008 Voltaren See Instructions, PO, 0 Refill(s), current med (Hx) Start Date: 06/29/08 Status: Ordered Start: 06-27-2008 take 1 dose by mouth twice daily diclofenac Dose : 50 mg =, PO, BID, 0 Refill(s), current med (Hx) Start Date: 06/27/08 Status: Ordered 1 ml fentaNYL 0.05 mg/ml injection (1 source) Opioid Agonist Start: 06-04-2024 End: 06-03-2024 take 1 dose intravenously once 50 mcg, INTRAVENOUS, Administer over 1 Minutes, ONCE, 1 dose, On [facility] 06/04/24 at 0200, Administration method is bolus dose from bag via bolus feature on smart pump if this is the only medication running through the line (exception: IV fluids). Start: 06-04-2024 End: 06-03-2024 take 1 dose intravenously once 50 mcg, INTRAVENOUS, Ad repair operator over 1 Minutes, ONCE, 1 dose, On [facility] 06/04/24 at 0200, Administration method is bolus dose from bag via bolus feature on smart pump if this is the only medication running through the line (exception: IV fluids). fluticasone propionate 0.05 mg/actuat metered dose nasal spray (20 sources) Corticosteroid Start: 01-27-2025 End: 02-01-2025 Fluticasone Propionate 50 mcg/actuation spray,suspension Active 2 NMA INTRANASAL daily 18 07February 01, 2025 2:10pm Start: 09-26-2023 End: 07-17-2024 take 50 ug nasal route once daily Fluticasone Propionate (Flonase Allergy Relief) 50 mcg/actuation spray,suspension Discontinued 2 NMA INTRANASAL DAILY 3 February 14, 2024 8:36am July 17, 2024 2:09pm administer into each nostril Start: 09-26-2023 take 1 spray(s) nasa l route once daily Fluticasone Propionate (Flonase Allergy Relief) 50 mcg/actuation spray,suspension Active 2 SPRAY INTRANASAL DAILY 16 Michelle 25th, 2024 1:00am administer into each nostril Start: 03-06-2021 take 2 spray(s) by m outh once daily fluticasone (FLONASE) 50 mcg/actuation nasal spray USE 2 SPRAYS IN EACH NOSTRIL ONCE DAILY. RINSE MOUTH AFTER USE. 16 mL 2 03/06/2021 Suspended take 2 spray(s) nasa l route once daily fluticasone (Flonase) 50 mcg/actuation nasal spray Administer 2 sprays into each nostril once daily. Active Comment on above: USE 2 SPRAYS IN EACH NOSTRIL ONCE DAILY. RINSE MOUTH AFTER USE. Fluticasone-Umeclidin- Vilanter (10 sources) Start: 11-09-2024 Eainwdirpiv-Deipofbcx-Kq lanter (Trelegy Ellipta) 200-62.5-25 mcg blister with device Active 1 NMA INHALATION Q24H 60 5 November 09, 2024 3:31pm Start: 11-09-2024 Fluticasone-Um eclidin-Vilanter (Trelegy Ellipta) 200-62.5-25 mcg blister with device Active 1 NMA INHALATION Q24H 60 November 09, 2024 3:31pm Start: 11-09-2024 Start: 10-20-2024 End: 11-09-2024 Aorbefwsptp-Cdaryureb-Wqbeso er (Trelegy Ellipta) 200-62.5-25 mcg blister with device Discontinued 1 NMA INHALATION Q24H 60 5 October 20, 2024 1:00am November 09, 2024 3:32pm Start: 10-20-2024 End: 11-09-2024 Emyzhbxbfxp-Rgdygjfms-Smtqkc er (Trelegy Ellipta) 200-62.5-25 mcg blister with device Discontinued 1 NMA INHALATION Q24H 60 October 20, 2024 1:00am November 09, 2024 3:32pm Start: 10-20-2024 End: 11-09-2024 kskkvsbbmqf-qvndvyzms-lrmtux er (TRELEGY ELLIPTA) 200-62.5-25 mcg inhalation powder (13 sources) Start: 11-18-2024 take 1 puff(s) by inhalation once daily snereyevbqk-jnizxcpjx-kkzcckic (TRELEGY ELLIPTA) 200-62.5-25 mcg inhalation powder Inhale 1 Puff as instructed once daily. [facility]. 11/18/2024 Active Foradil Aerolizer (1 source) Start: 06-27-2008 take 1 capsule by inhalation every twelve hours Foradil Aerolizer 1 cap(s), Inhalation, q12hr, # 60 cap(s), 0 Refill(s), current med (Hx) Start Date: 06/27/08 Status: Ordered 120 actuat formoterol fumara te 0.005 mg/actuat / mometasone furoate 0.2 mg/actuat metered dose inhaler (3 sources) C o r t i c o s t e r o i d , b e t a 2 - A d r e n e r g i c A g o n i s t Start: 06-30-2018 take 1 puff(s) by inhalation twice daily Mometasone-Formoterol Active 2 PUFF IH TWICE A DAY June 30, 2018 3:22pm End: 12-15-2021 take 2 puff(s) by inhalation twice daily mometasone-formoterol (DULERA) 200-5 mcg/actuation inhaler Inhale 2 Puffs as instructed twice daily. 0 12/15/2021 Discontinued Comment on above: Inhale 2 Puffs as in structed twice daily. furosemide 40 mg oral tablet (20 sources) Loop Diuretic Start: End: 5 take 1 tablet by mouth once daily furosemide (LASIX) 40 mg tablet Indications: Primary hypertension Take 1 tablet by mouth once daily. 30 tablet 2 02/05/2025 Active gabapentin 800 mg oral tablet (20 sources) Anti-epileptic Agent Start: take 1 tablet by mouth three times daily gabapentin (NEURONTIN) 800 mg tablet Take 1 tablet by mouth three times a day. [facility]. 11/18/2024 Active Start: 08-10-2024 take 2 capsules by m outh three times daily Gabapentin 400 mg capsule Active 800 mg PO THREE TIMES A DAY 1 August 10, 2024 1:00am Start: 06-23-2024 End: 11-18-2024 take 1 capsule by mouth every eight hours gabapentin (NEURONTIN) 300 mg capsule 1 capsule by ORAL/FEEDING TUBE route every 8 hours for 7 days. 06/23/2024 11/18/2024 Discontinued Start: 12-12-2021 End: 08-07-2024 take 1 tablet by mouth at bedtime as needed for pain Gabapentin 600 mg Tablet Discontinued 600 mg PO AT BEDTIME as needed for Pain December 12, 2021 12:00am August 07, 2024 2:38pm Comment on above: Take 1 tablet by edy th daily at bedtime. [facility] medication. 12 hr guaiFENesin 1200 mg extended release oral tablet (20 sources) Start: 11-06-2024 guaiFENesin (MUCINEX) 1,200 mg Ta12 Take 1 tablet by mouth as needed. 11/06/2024 Active Start: 10-20-2024 take 1 tablet by edy th three times daily as needed for congestion, then take 1 tablet by mouth every twelve hours as needed for congestion Guaifenesin (Mucinex) 1,200 mg tablet extended release 12hr Active 1200 mg PO THREE TIMES A DAY as needed for congestion October 20, 2024 1:00am Start: 10-20-2024 guaiFENesin (M UCINEX) 1,200 mg Ta12 Take 1 tablet by mouth as needed. 11/06/2024 Active Start: 06-02-2024 take 2 tablets by mo uth twice daily guaiFENesin (MUCINEX) 600 mg 12 hr tablet Take 2 tablets by mouth two times a day. 06/02/2024 Suspended Start: 04-09-2024 End: 07-17-2024 take 1 tablet by mouth three times daily Guaifenesin 1,200 mg tablet extended release 12hr Discontinued 1200 mg PO THREE TIMES A DAY April 09, 2024 2:06pm July 17, 2024 2:09pm Start: 11-18-2023 take 1200 mg by mout h every twelve hours Guaifenesin Active 1200 MG PO Q12H 60 November 18, 2023 12:00am Start: 11-18-2023 End: 04-09-2024 take 1 tablet by mouth every twelve hours Guaifenesin 1,200 mg tablet extended release 12hr Discontinued 1200 mg PO Q12H 60 6 November 18, 2023 12:00am April 09, 2024 2:07pm Start: 03-16-2022 take 1200 mg by mout h every twelve hours Guaifenesin Active 1200 MG PO Q12H 60 March 16, 2022 12:00am Start: 08-04-2021 End: 08-31-2021 take 1 tablet by mouth every twelve hours Guaifenesin 1,200 mg tablet extended release 12hr Discontinued 1200 mg PO Q12H 60 August 04, 2021 1:00am August 31, 2021 1:17pm Chronic obstructive pulmonary disease Chronic obstructive pulmonary disease with (acute) exacerbation take 1 tablet by edy th every eight hours as needed guaiFENesin (HUMIBID E) 400 mg tab Take 400 mg by mouth three times a day as needed (congestion). Suspended ketoconazole 20 mg/ml topical cream (20 sources) Azole Antifungal Start: 10-06-2024 ketoconazole (NIZORAL) 2 % cream Apply to affected area once daily. 11/06/2024 Active Start: 10-06-2024 Ketoconazole 2 % cream Active 1 NMA TOPICAL TWICE A DAY October 06, 2024 1:00am Start: 08-07-2024 End: 08-16-2024 Ketoconazole 2 % Cream Disco ntinued 1 NMA TOPICAL DAILY as needed for dryness 1 August 07, 2024 1:00am August 16, 2024 5:27am As needed for recurrence of seborrheic dermatitis on his face Please contact the information source for Protocol details. Start: 08-07-2024 End: 08-16-2024 LORazepam 0.5 mg oral tablet (19 sources) Benzodiazepine Start: 09-11-2024 End: 12-18-2024 take 1 tablet by mouth three times daily as needed for anxiety LORazepam (Ativan) 0.5 mg tablet Take 1 tablet by mouth three times a day as needed (anxiety) for up to 30 days. 11/18/2024 Active Start: 09-11-2024 End: 02-05-2025 take 1 tablet by mouth every eight hours as needed for anxiety Lorazepam (Ativan) 0.5 mg tablet Discontinued 0.5 mg PO Q8H as needed for anxiety September 11, 2024 1:00am February 05, 2025 1:56pm lovastatin 20 mg oral tablet (1 source) HMG-CoA Reductase Inhibitor Start: 06-29-2008 take 1 dose by mouth once daily at bedtime lovastatin Dose : 20 mg =, PO, Once a day (at bedtime), 0 Refill(s), current med (Hx) Start Date: 06/29/08 Status: Ordered magnesium oxide 400 mg oral tablet (20 sources) Start: 11-06-2024 take 1 tablet by mouth once daily magnesium oxide (MAG-OX) 400 mg (241.3 mg magnesium) tablet Take 1 tablet by mouth once daily. 11/06/2024 Active Start: 10-15-2024 End: 02-05-2025 take 1 capsule by mouth once daily Magnesium Oxide 400 mg magnesium capsule Discontinued 400 mg PO daily October 15, 2024 1:00am February 05, 2025 1:56pm metoprolol tartrate 25 mg oral tablet (1 source) beta-Adrenergic Mary Carmen Start: 06-29-2008 take 1 dose by mouth twice daily Lopressor Dose : 25 mg =, PO, BID, 0 Refill(s), current med (Hx) Start Date: 06/29/08 Status: Ordered montelukast 10 mg oral tablet (20 sources) Leukotriene Receptor Antagonist Start: 08-07-2024 End: 02-05-2025 Montelukast 10 mg Tablet Discontinued 10 mg GT DAILY 1 August 07, 2024 1:00am February 05, 2025 1:59pm Start: 12-12-2021 End: 08-07-2024 take 1 tablet by mouth once daily Montelukast 10 mg Tablet Active 10 mg PO DAILY February 05, 2025 12:00am Start: 06-27-2008 End: 05-21-2021 take 1 tablet by mouth once daily in the evening Montelukast 10 mg tablet Discontinued 10 mg PO EVERY EVENING 30 March 09, 2021 1:48pm May 21, 2021 11:03am Comment on above: Take 1 tablet by edy th once daily. ofloxacin 3 mg/ml otic solution (1 source) Quinolone Antimicrobial Start: 12-18-19 End: 12-23-19 ofloxacin (FLOXIN) 0.3 % otic solution Use 10 Drops in the left ear once daily for 5 days. 5 mL 0 12/17/2022 12/22/2022 Active Comment on above: Use 10 Drops in the left ear once daily for 5 days. 24 hr oxybutynin chloride 5 mg extended release oral tablet (8 sources) Cholinergic Muscarinic Antagonist Start: 02-06-20 take 1 tablet by mouth once daily oxybutynin XL (DITROPAN XL) 5 mg 24 hr tablet Indications: Urge incontinence of urine Take 1 tablet by mouth once daily. 30 tablet 2 02/05/2025 Active pantoprazole 40 mg delayed release oral tablet (20 sources) Proton Pump Inhibitor Start: 03-19-20 take 1 tablet by mouth once daily pantoprazole DR (PROTONIX) 40 mg tablet Indications: Gastrointestinal hemorrhage, unspecified gastrointestinal hemorrhage type Take 1 tablet by mouth once daily. 03/19/2025 Active Start: 02-24-2025 End: 02-24-2025 take 1 tablet by mouth once daily pantoprazole DR (PROTONIX) 40 mg tablet Indications: Gastrointestinal hemorrhage, unspecified gastrointestinal hemorrhage type Take 1 tablet by mouth once daily. 03/19/2025 Active Start: 12-01-2024 End: 11-18-[address] (PROTONIX) 4 0 mg tablet Indications: Gastrointestinal hemorrhage, unspecified gastrointestinal hemorrhage type Take 1 tablet by mouth two times a day. Patient should start on December 01, 2024. 60 tablet 1 12/01/2024 11/18/2024 Discontinued Start: 12-01-2024 End: 11-18-[address] (PROTONIX) 4 0 mg tablet Indications: Gastrointestinal hemorrhage, unspecified gastrointestinal hemorrhage type Take 1 tablet by mouth two times a day. Patient should start on December 01, 2024. 60 tablet 1 12/01/2024 11/18/2024 Discontinued Start: 12-01-2024 pantoprazole D R (PROTONIX) 40 mg tablet Indications: Gastrointestinal hemorrhage, unspecified gastrointestinal hemorrhage type Take 1 tablet by mouth two times a day. Patient should start on December 01, 2024. 60 tablet 1 12/01/2024 Active Start: 12-01-2024 pantoprazole D R (PROTONIX) 40 mg tablet Indications: Gastrointestinal hemorrhage, unspecified gastrointestinal hemorrhage type Take 1 tablet by mouth two times a day. Patient should start on December 01, 2024. 60 tablet 1 12/01/2024 Active Start: 12-01-2024 pantoprazole D R (PROTONIX) 40 mg tablet Indications: Gastrointestinal hemorrhage, unspecified gastrointestinal hemorrhage type Take 1 tablet by mouth two times a day. Patient should start on December 01, 2024. 60 tablet 1 12/01/2024 Active Start: 12-01-2024 pantoprazole D R (PROTONIX) 40 mg tablet Indications: Gastrointestinal hemorrhage, unspecified gastrointestinal hemorrhage type Take 1 tablet by mouth two times a day. Patient should start on December 01, 2024. 60 tablet 1 12/01/2024 Active Start: 12-01-2024 pantoprazole D R (PROTONIX) 40 mg tablet Indications: Gastrointestinal hemorrhage, unspecified gastrointestinal hemorrhage type Take 1 tablet by mouth two times a day. Patient should start on December 01, 2024. 60 tablet 1 12/01/2024 Active Start: 12-01-2024 pantoprazole D R (PROTONIX) 40 mg tablet Indications: Gastrointestinal hemorrhage, unspecified gastrointestinal hemorrhage type Take 1 tablet by mouth two times a day. Patient should start on December 01, 2024. 60 tablet 1 12/01/2024 Active Start: 11-06-2024 End: 11-06-2024 take 1 tablet by mouth once daily pantoprazole DR (PROTONIX) 40 mg tablet Take 1 tablet by mouth once daily. 11/06/2024 11/06/2024 Discontinued Start: 10-31-2024 End: 03-19-2025 take 1 tablet by mouth twice daily Pantoprazole (Protonix) 40 mg tablet,delayed release (DR/EC) Discontinued 40 mg PO TWICE A DAY 60 30 2 November 19, 2024 2:27pm February 24, 2025 1:52pm predniSONE 20 mg oral tablet (20 sources) Start: 11-18-2024 End: 11-23-2024 take 1 tablet by mouth once daily predniSONE (DELTASONE) 20 mg tablet Indications: COPD exacerbation (HCC) Take 1 tablet by mouth once daily for 5 days. 5 tablet 11/18/2024 11/23/2024 Active Start: 08-07-2024 End: 08-16-2024 Prednisone 10 mg tablet Discontinued 10 mg PO TWICE A DAY 12 0 August 07, 2024 1:00am August 16, 2024 5:27am 2 tabs BID Saturday and Saturday 1 tab BID Saturday and then discontinue Start: 06-02-2024 End: 06-17-2024 predniSONE (DELTASONE) 10 mg tablet As needed per pulmonology 06/02/2024 06/17/2024 Suspended Start: 04-14-2024 End: 06-03-2024 take 3 tablets by mouth once daily Prednisone 20 mg tablet Discontinued 60 mg PO DAILY 12 May 04, 2024 12:00am June 03, 2024 9:22pm Start: 04-14-2024 End: 06-03-2024 Start: 02-08-2024 End: 03-12-2024 take 5 tablets by mouth once daily, then take 4 tablets by mouth once daily, then take 3 tablets by mouth once daily, then take 2 tablets by mouth once daily, then take 1 tablet by mouth once daily Prednisone 10 mg tablet Discontinued 10 mg PO DAILY 45 February 08, 2024 12:00am March 12, 2024 11:17am 5 po qd x 3 days, 4 po qd x 3 days, 3 po qd x 3 days, 2 po qd x 3 days, 1 po qd x 3 days Start: 09-26-2023 End: 11-18-2023 take 1 tablet by mouth twice daily Prednisone 20 mg tablet Discontinued 20 mg PO TWICE A DAY 10 September 26, 2023 1:00am November 18, 2023 10:47am Start: 09-26-2023 End: 11-18-2023 Start: 08-28-2023 End: 04-09-2024 Prednisone 10 mg tablet Discontinued 10 mg PO daily March 12, 2024 12:00am April 09, 2024 2:06pm take 4 tabs for three days, then 3 tabs for three days, then 2 tabs for three days, then 1 tab for 3 days Start: 07-07-2023 End: 07-11-2023 take 2 tablets by mouth once daily Prednisone 20 mg tablet Discontinued 40 mg PO DAILY July 07, 2023 12:00am July 11, 2023 10:19am Start: 07-07-2023 End: 07-11-2023 Start: 07-07-2023 End: 07-11-2023 take 40 mg by mouth once daily Prednisone Discontinued 40 MG PO DAILY July 07, 2023 12:00am July 11, 2023 10:19am Start: 05-31-2023 End: 07-11-2023 Prednisone 10 mg tablet Discontinued 10 mg PO daily 30 0 Diana 29th, 2023 12:00am July 11, 2023 10:19am take 4 tabs for three days, then 3 tabs for three days, then 2 tabs for three days, then 1 tab for 3 days Start: 03-19-2023 End: 04-11-2023 take 2 tablets by mouth once daily Prednisone 20 mg tablet Discontinued 40 mg PO DAILY March 19, 2023 12:00am April 11, 2023 7:44am Start: 03-19-2023 End: 04-11-2023 Start: 03-19-2023 End: 04-11-2023 take 40 mg by mouth once daily Prednisone Discontinued 40 MG PO DAILY March 19, 2023 12:00am April 11, 2023 7:44am Start: 02-01-2023 End: 04-11-2023 Prednisone 10 mg tablet Discontinued 10 mg PO daily February 01, 2023 12:00am April 11, 2023 7:44am On Hold: MD Fuentes take 4 tabs for three days, then 3 tabs for three days, then 2 tabs for three days, then 1 tab for 3 days Start: 12-17-2022 End: 12-22-2022 take 2 tablets by mouth once daily predniSONE (DELTASONE) 20 mg tablet Take 2 tablets by mouth once daily for 5 days. 10 tablet 0 12/17/2022 12/22/2022 Active Start: 07-02-2022 End: 01-21-2023 Prednisone 10 mg tablet Discontinued 10 mg PO daily November 19, 2022 11:51am January 21, 2023 2:39pm take 4 tabs for three days, then 3 tabs for three days, then 2 tabs for three days, then 1 tab for 3 days Start: 04-13-2022 End: 06-22-2022 Prednisone 10 mg tablet Discontinued 10 mg PO daily April 13, 2022 12:00am June 22, 2022 10:04am take 4 tabs for three days, then 3 tabs for three days, then 2 tabs for three days, then 1 tab for 3 days Start: 02-21-2022 End: 03-16-2022 Prednisone 10 mg tablet Discontinued 10 mg PO daily February 21, 2022 12:00am March 16, 2022 10:21am take 4 tabs for three days, then 3 tabs for three days, then 2 tabs for three days, then 1 tab for 3 days Start: 01-10-2022 End: 01-30-2022 take 3 tablets by mouth once daily Prednisone 20 MG tablet Discontinued 60 mg PO DAILY January 10, 2022 12:00am January 30, 2022 2:46pm Start: 01-10-2022 End: 01-30-2022 Start: 01-10-2022 End: 01-30-2022 take 60 mg by mouth once daily Prednisone Discontinued 60 MG PO DAILY January 10, 2022 12:00am January 30, 2022 2:46pm Start: 12-14-2021 End: 12-18-2021 take 2 tablets by mouth twice daily predniSONE (DELTASONE) 20 mg tablet Indications: Chronic obstructive pulmonary disease with acute exacerbation (HCC) , Pneumonia due to infectious organism, unspecified laterality, unspecified part of lung Take 2 tablets by mouth twice daily. 0 12/14/2021 12/18/2021 Start: 11-13-2021 End: 11-20-2021 take 3 tablets by mouth once daily at mealtime Prednisone 20 mg tablet Discontinued 60 mg PO daily November 13, 2021 12:00am November 20, 2021 9:47am administer with food or milk Start: 11-13-2021 End: 11-20-2021 Start: 11-13-2021 End: 11-20-2021 take 60 mg by mouth once daily at mealtime Prednisone Discontinued 60 MG PO daily November 13, 2021 12:00am November 20, 2021 9:47am administer with food or milk Start: 08-31-2021 End: 10-03-2021 Prednisone Discontinued 20 M G PO DAILY August 31, 2021 1:00am October 03, 2021 2:33pm 40 mg daily for 3 days, 30 mg for 3 days, 20 mg for 6 days and 10 mg for 7 days Start: 07-31-2021 End: 10-03-2021 Prednisone 20 mg tablet Discontinued 20 mg PO DAILY August 31, 2021 1:00am October 03, 2021 2:33pm 40 mg daily for 3 days, 30 mg for 3 days, 20 mg for 6 days and 10 mg for 7 days Start: 07-31-2021 End: 10-03-2021 Start: 07-31-2021 End: 08-31-2021 take 40 mg by mouth once daily Prednisone Discontinued 40 MG PO DAILY 20 July 31, 2021 1:00am August 31, 2021 1:09pm Start: 07-02-2021 End: 08-31-2021 Prednisone 10 mg tablet Discontinued 0 mg PO DAILY 16 July 02, 2021 12:00am August 31, 2021 1:09pm Please contact the information source for Taper Schedule details. Start: 07-02-2021 End: 08-31-2021 Start: 08-10-2020 End: 10-25-2020 take 3 tablets by mouth once daily at mealtime Prednisone 20 MG tablet Discontinued 60 mg PO DAILY August 10, 2020 1:00am October 25, 2020 10:47am With food Start: 08-10-2020 End: 10-25-2020 Start: 08-10-2020 End: 10-25-2020 take 60 mg by mouth once daily at mealtime Prednisone Discontinued 60 MG PO DAILY August 10, 2020 1:00am October 25, 2020 10:47am With food Start: 04-26-2020 End: 10-25-2020 Prednisone 10 mg tablet Discontinued 10 mg PO daily July 12, 2020 1:49pm October 25, 2020 10:47am take 4 tabs for three days, then 3 tabs for three days, then 2 tabs for three days, then 1 tab for 3 days Start: 03-04-2020 End: 03-23-2020 take 3 tablets by mouth once daily at mealtime Prednisone 20 MG tablet Discontinued 60 mg PO DAILY March 04, 2020 12:00am March 23, 2020 11:39am With food Start: 03-04-2020 End: 03-23-2020 Start: 03-04-2020 End: 03-23-2020 take 60 mg by mouth once daily at mealtime Prednisone Discontinued 60 MG PO DAILY March 04, 2020 12:00am March 23, 2020 11:39am With food Start: 12-21-2019 End: 01-19-2020 Prednisone 10 mg tablet Discontinued 10 mg PO daily 30 December 21, 2019 12:00am January 19, 2020 1:42pm take 4 tabs for three days, then 3 tabs for three days, then 2 tabs for three days, then 1 tab for 3 days Start: 11-10-2019 End: 12-21-2019 take 3 tablets by mouth once daily at mealtime Prednisone 20 MG tablet Discontinued 60 mg PO DAILY November 10, 2019 12:00am December 21, 2019 11:22am With food Start: 11-10-2019 End: 12-21-2019 Start: 11-10-2019 End: 12-21-2019 take 60 mg by mouth once daily at mealtime Prednisone Discontinued 60 MG PO DAILY November 10, 2019 12:00am December 21, 2019 11:22am With food Start: 09-17-2019 End: 09-23-2019 take 2 tablets by mouth once daily at mealtime Prednisone 20 MG tablet Discontinued 40 mg PO DAILY September 17, 2019 1:00am September 23, 2019 11:31am With food Start: 09-17-2019 End: 09-23-2019 Start: 09-17-2019 End: 09-23-2019 take 40 mg by mouth once daily at mealtime Prednisone Discontinued 40 MG PO DAILY September 17, 2019 1:00am September 23, 2019 11:31am With food Start: 09-07-2018 End: 09-14-2018 take 2 tablets by mouth once daily at mealtime Prednisone 20 MG tablet Discontinued 40 mg PO DAILY September 07, 2018 1:00am September 13, 2018 1:00am September 14, 2018 1:08am With food Start: 09-07-2018 End: 09-14-2018 Start: 09-07-2018 End: 09-14-2018 take 40 mg by mouth once daily at mealtime Prednisone Discontinued 40 MG PO DAILY September 07, 2018 1:00am September 14, 2018 1:08am With food Start: 06-22-2017 End: 10-21-2017 Prednisone 10 MG tablet Discontinued 0 mg PO DAILY 30 0 June 22, 2017 12:00am October 21, 2017 3:38pm Please contact the information source for Taper Schedule details. Start: 06-22-2017 End: 10-21-2017 Start: 11-03-2014 End: 12-07-2014 take 3 tablets by mouth once daily Prednisone 20 MG tablet Discontinued 60 mg PO DAILY 15 November 03, 2014 1:00am December 07, 2014 1:51pm Start: 11-03-2014 End: 12-07-2014 Start: 11-03-2014 End: 12-07-2014 take 60 mg by mouth once daily Prednisone Discontinued 60 MG PO DAILY November 03, 2014 1:00am December 07, 2014 1:51pm Comment on above: Take 2 tablets by mo [facility] twice daily. Take 2 tablets by mo [facility] once daily for 5 days. pseudoephedrine hydrochloride 60 mg oral tablet (1 source) alpha-Adrenergic Agonist Start: 008 take 1 dose by mouth twice daily pseudoephedrine Dose : 60 mg =, PO, BID, 0 Refill(s), current med (Hx) Start Date: 06/27/08 Status: Ordered QUEtiapine 25 mg oral tablet (20 sources) Atypical Antipsychotic Start: End: 025 take 1 tablet by mouth once daily at bedtime QUEtiapine (SEROQUEL) 25 mg tablet Indications: Major depressive disorder with psychotic features (HCC) Take 1 tablet by mouth daily at bedtime. 30 tablet 2 02/05/2025 Active Start: 08-07-2024 End: 11-19-2024 Quetiapine 25 mg Tablet Disc ontinued 12.5 mg PO 0700 1 0 August 07, 2024 1:00am November 19, 2024 2:00pm Start: 08-07-2024 End: 11-19-2024 take 1 tablet by mouth twice daily QUEtiapine (SEROQUEL) 25 mg tablet Take 1 tablet by mouth two times a day. 11/06/2024 11/06/2024 Discontinued (Clinical Decision) sodium chloride 30 mg/ml inhalation solution (3 sources) Start: 07-17-2024 sodium chlorid e 3 % nebulizer solution Inhale 4 mL. 07/17/2024 Active 60 actuat tiotropium 0.0025 mg/actuat inhalation spray (20 sources) Anticholinergic Start: 03-16-2022 take 2.5 ug by inhalation once daily Tiotropium [place] (Spiriva Respimat) 2.5 mcg/actuation mist Active 2 INH INHALATION daily March 16, 2022 12:00am administer at approximately the same time(s) each day Start: 08-04-2021 End: 08-04-2021 take 2.5 ug by inhalation once daily Tiotropium [place] (Spiriva Respimat) 2.5 mcg/actuation mist Discontinued 1 NMA INHALATION DAILY August 04, 2021 1:00am August 04, 2021 10:01am Start: 08-04-2021 End: 08-04-2021 Start: 08-04-2021 End: 08-04-2021 take 1 puff(s) by inhalation once daily Tiotropium [place] (Spiriva Respimat) 2.5 mcg/actuation mist Discontinued 1 PUFF INHALATION DAILY August 04, 2021 1:00am August 04, 2021 10:01am Start: 06-27-2008 take 1 dose by inhal ation once daily Spiriva Dose : 18 mcg =, Inhalation, Daily, 0 Refill(s), current med (Hx) Start Date: 06/27/08 Status: Ordered traZODone hydrochloride 50 mg oral tablet (1 source) Serotonin Reuptake Inhibitor Start: 09-23-2019 take 75 mg by mouth at bedtime Trazodone Active 75 MG PO AT BEDTIME September 23, 2019 11:30am Trelegy Ellipta 200-62.5-25 mcg blister with device (3 sources) take 1 puff(s) by mouth every twenty-four hours Trelegy Ellipta 200-62.5-25 mcg blister with device INHALE 1 PUFF BY MOUTH and into the lungs EVERY 24 HOURS Active triamcinolone acetonide 1 mg/ml topical cream (20 sources) Corticosteroid Start: 01-27-2025 Triamcinolone Acetonide 0.1 % cream Active 1 NMA TOPICAL .QD January 27, 2025 12:00am Start: 01-27-2025 Triamcinolone Acetonide 0.1 % cream Active NMA TOPICAL January 27, 2025 12:00am Start: 11-18-2024 triamcinolone acetonide (KENALOG) 0.1 % cream Apply 1 application to affected area once daily as needed. 11/18/2024 Active Start: 05-13-2013 End: 12-21-2014 TRIAMCINOLONE ACETONIDE 0.1 % OINT Apply as directed TRIAMCINOLONE ACETONIDE [id number] Lynda Ortiz, [place] vitamin b12 1 mg oral capsule (20 sources) Vitamin B12 Start: 02-05-2025 take 1 capsule by mouth once daily Cyanocobalamin (Vitamin B-12) 1,000 mcg capsule Active 1000 ug PO DAILY February 05, 2025 12:00am Start: 10-29-2014 End: 07-17-2024 take 1 tablet by mouth once daily Cyanocobalamin (Vitamin B-12) 1,000 mcg tablet Discontinued 1000 ug PO DAILY October 15, 2017 1:00am July 17, 2024 2:08pm vitamin Comment on above: Take 1 tablet by edy th once daily. (14 sources) Start: 10-20-2024 Start: 08-17-2024 End: 11-19-2024 Start: 08-07-2024 End: 08-17-2024 Start: 08-07-2024 End: 11-19-2024 Start: 08-07-2024 End: 11-19-2024 Start: 08-07-2024 End: 08-16-2024 Start: 04-09-2024 End: 07-17-2024 Start: 11-18-2023 End: 04-09-2024 Start: 09-26-2023 End: 08-17-2024 Start: 03-16-2022 End: 06-22-2022 Start: 01-30-2022 End: 07-27-2024 Start: 04-27-2020 End: 01-30-2022 Start: 04-26-2020 End: 04-27-2020 Start: 06-16-2013 End: 03-10-2019 Completed/Discontinued Medications Medication Drug Class(es) Dates Sig (Normalized) Sig (Original) acetaminophen 325 mg oral tablet (20 sources) Start: 07-17-2024 End: 08-17-2024 take 2 tablets by mouth every six hours as needed for pain Acetaminophen (Tylenol) 325 mg tablet Discontinued 650 mg PO EVERY 6 HOURS as needed for pain July 17, 2024 1:00am August 17, 2024 12:15pm Start: 06-23-2024 End: 11-18-2024 take 650 mg enteral route every six hours as needed acetaminophen (TYLENOL) 650 mg/20.3 mL soln 20.3 mL by ORAL/FEEDING TUBE route every 6 hours as needed for pain or fever (specify temp.) (Temp greater than 38.3). Do not exceed 5 doses in 24 hours. 06/23/2024 11/18/2024 Discontinued acetaminophen 32 5 mg cap Take 2 capsules by mouth as needed for pain. Active acetaminophen 325 mg / HYDROcodone bitartrate 5 mg oral tablet (20 sources) Opioid Agonist Start: 11-10-2019 End: 11-13-2019 Hydrocodone-Acetaminophen 1 TABLET tablet Discontinued 1 {tbl} PO EVERY 6 HOURS NEEDED as needed for Pain 10 3 0 November 10, 2019 November 12, 2019 12:00am November 13, 2019 12:09am Muscle strain of chest wall Strain of muscle and tendon of front wall of thorax, initial encounter Start: 11-10-2019 End: 11-13-2019 Start: 11-10-2019 End: 11-13-2019 take 1 tablet by mouth every six hours as needed Hydrocodone-Acetaminophen Discontinued 1 TABLET PO EVERY 6 HOURS NEEDED 10 3 November 10, 2019 November 13, 2019 12:09am Start: 01-22-2019 End: 01-25-2019 Hydrocodone-Acetaminophen 1 TABLET tablet Discontinued 1 {tbl} PO EVERY 6 HOURS NEEDED as needed for Pain 7 3 0 January 22, 2019 12:00am January 24, 2019 12:00am January 25, 2019 12:07am Pain, unspecified Start: 01-22-2019 End: 01-25-2019 Start: 01-22-2019 End: 01-25-2019 take 1 tablet by mouth every six hours as needed Hydrocodone-Acetaminophen Discontinued 1 TABLET PO EVERY 6 HOURS NEEDED 7 3 January 22, 2019 12:00am January 25, 2019 12:07am Albuterol Sulfate 2.5 mg /3 mL (0.083 %) solution for nebulization (4 sources) Start: 09-26-2023 End: 08-17-2024 take 2.5 mg by inhalation every four hours as needed for wheezing Albuterol Sulfate 2.5 mg /3 mL (0.083 %) solution for nebulization Discontinued 2.5 mg INHALATION Q4H as needed for shortness of breath or wheezing 180 11 September 26, 2023 4:24pm August 17, 2024 12:10pm Acute exacerbation of chronic obstructive pulmonary disease Chronic obstructive pulmonary disease with (acute) exacerbation Start: 09-26-2023 End: 08-17-2024 take 2.5 mg by inhalation every four hours as needed for wheezing Albuterol Sulfate 2.5 mg /3 mL (0.083 %) solution for nebulization Discontinued 2.5 mg INHALATION Q4H as needed for shortness of breath or wheezing 180 September 26, 2023 4:24pm August 17, 2024 12:10pm alendronic acid 70 mg oral tablet (2 sources) Bisphosphonate Start: 06-02-2024 take 1 tablet by mouth every week alendronate (FOSAMAX) 70 mg tablet Take 1 tablet by mouth one time a week. Take with a full glass of water, on an empty stomach; do NOT lie down for 30minutes. 06/02/2024 Suspended apixaban 5 mg oral tablet (20 sources) Factor Xa Inhibitor Start: 09-12-2024 End: 03-29-2025 take 1 tablet by mouth twice daily Apixaban (Eliquis) 5 mg tablet Discontinued 5 mg PO TWICE A DAY 1 September 12, 2024 1:00am March 29, 2025 10:22am Start: 08-11-2024 End: 08-16-2024 take 1 tablet by mouth once Apixaban (Eliquis Dvt-Pe T reat 30d Start) 5 mg (74 tabs) Tablets,Dose Pack Discontinued 0 .ROUTE .COMPLEX 74 0 August 11, 2024 1:00am August 16, 2024 5:30am orally per package directions Start: 08-11-2024 End: 08-16-2024 ascorbic acid 500 mg oral tablet (10 sources) Start: 10-29-2014 End: 12-21-2014 take 2 tablets by mouth once daily VITAMIN C 500 MG TABS Two tablets by mouth daily ASCORBIC ACID [id number] Crispin Upton MD aspirin 81 mg chewable tablet (20 sources) Nonsteroidal Anti-inflammatory Drug Start: 08-07-2024 End: 08-16-2024 take 1 tablet by mouth once daily Aspirin 81 mg tablet,chewable Discontinued 81 mg PO DAILY 1 August 07, 2024 1:00am August 16, 2024 5:31am Start: 12-12-2021 End: 07-17-2024 take 1 tablet by mouth once daily Aspirin 81 mg Tablet,Delayed Release (Dr/Ec) Discontinued 81 mg PO DAILY December 12, 2021 12:00am July 17, 2024 2:07pm [facility] Start: 05-13-2013 take 1 tablet by edy th once daily ASPIRIN 81 MG TABS One tablet by mouth daily ASPIRIN [id number] Lynda Ortiz RN Start: 05-13-2013 take 1 tablet by edy th once daily ASPIRIN EC LOW DOSE 81 MG TBEC One tablet by mouth daily ASPIRIN [id number] Sierra Ohara RN Start: 06-29-2008 take 1 tablet by edy th once daily ASPIRIN 81 MG TABS One tablet by mouth daily ASPIRIN [id number] Lynda Ortiz RN Comment on above: Take one(1) tablet d aily. azelastine hydrochloride 0.137 mg/actuat metered dose nasal spray (20 sources) Histamine-1 Receptor Antagonist Start: End: take 2 spray(s) nasal route twice daily azelastine (ASTELIN,ASTEPRO) 0.1% nasal spray Use 2 Sprays in each nostril twice daily. 1 Bottle 11 05/26/2020 06/02/2024 Discontinued Start: 05-13-2013 ASTEPRO 0.15 % SOLN as directed AZELASTINE HCL [id number] Lynda Ortiz RN Start: 05-13-2013 ASTEPRO 0.15 % SOLN as directed JOANNEELASTINE HCL [id number] Lynda Ortiz RN Comment on above: Use 2 Sprays in each nostril twice daily. azithromycin 250 mg oral tablet (20 sources) Macrolide Antimicrobial Start: 05-04-20 End: 06-03-20 take 1 tablet by mouth once daily Azithromycin 250 mg tablet Discontinued 250 mg PO DAILY May 04, 2024 12:00am June 03, 2024 9:22pm Start: 07-07-2023 End: 07-11-2023 take 1 tablet by mouth once daily Azithromycin 250 mg tablet Discontinued 250 mg PO DAILY July 07, 2023 12:00am July 11, 2023 10:19am Start: 04-13-2022 End: 06-22-2022 take 2-5 tablets by mouth once daily Azithromycin 250 mg tablet Discontinued 0 PO .COMPLEX 6 0 April 13, 2022 12:00am June 22, 2022 10:04am take 500 mg today (day 1), then 250 mg for 4 days (days 2-5) PO 1 ml benralizumab 30 mg/ml prefilled syringe (20 sources) Interleukin-5 Receptor alpha-directed Cytolytic Antibody Start: 09-15-2020 End: 09-15-2020 inject 30 mg by subcutaneous injection once benralizumab 30 mg/mL subcutaneous syringe Discontinued 30 MG SC ONCE September 15, 2020 10:08am September 15, 2020 10:27am Start: 07-18-2020 End: 07-18-2020 inject 30 mg by subcutaneous injection once benralizumab 30 mg/mL subcutaneous syringe Discontinued 30 MG SC ONCE July 18, 2020 1:47pm July 18, 2020 2:22pm Start: 06-20-2020 End: 06-20-2020 inject 30 mg by subcutaneous injection once benralizumab 30 mg/mL subcutaneous syringe Discontinued 30 MG SC ONCE June 20, 2020 1:32pm June 20, 2020 2:02pm Start: 05-23-2020 End: 05-23-2020 inject 30 mg by subcutaneous injection once benralizumab 30 mg/mL subcutaneous syringe Discontinued 30 MG SC ONCE May 23, 2020 12:58pm May 23, 2020 1:15pm Start: 04-26-2020 End: 03-02-2021 Benralizumab (Fasenra) 30 mg /mL syringe Discontinued 30 mg SC every 4 weeks 1 0 3 May 05, 2020 11:31am March 02, 2021 8:14am Severe persistent asthma, uncomplicated benzonatate 200 mg oral capsule (17 sources) Non-narcotic Antitussive Start: 02-16-2020 End: 02-16-2020 take 1 capsule by mouth three times daily as needed for cough Benzonatate 200 mg capsule Discontinued 200 mg PO THREE TIMES A DAY as needed for cough 90 0 February 16, 2020 12:00am February 16, 2020 12:09pm budesonide 0.5 mg/ml inhalation suspension (20 sources) Corticosteroid Start: 09-11-2024 End: 10-20-2024 take 0.5 mg by inhalation at bedtime Budesonide 1 mg/2 mL suspension for nebulization Discontinued 0.5 mg INHALATION AT BEDTIME September 11, 2024 1:00am October 20, 2024 11:49am Start: 09-11-2024 End: 10-20-2024 Start: 06-23-2024 End: 11-18-2024 budesonide (PULMICORT) 0.5 m g/2 mL nebulizer solution Use 2 mL via nebulizer two times a day. 06/23/2024 11/18/2024 Discontinued (Discontinued by another Health Care Provider) 120 actuat budesonide 0.16 mg/actuat / formoterol fumarate 0.0045 mg/actuat metered dose inhaler (5 sources) Corticosteroid, beta2-Adrenergic Agonist Start: 05-13-2013 SYMBICORT 160-4.5 MCG/ACT AERO 2 puffs twice daily BUDESONIDE-FORMOTEROL FUMARATE [id number] Lynda Ortiz RN Start: 05-13-2013 SYMBICORT 160- 4.5 MCG/ACT AERO 2 puffs twice daily BUDESONIDE-FORMOTEROL FUMARATE [id number] Lynda Ortiz RN 120 actuat budesonide 0.16 mg/actuat / formoterol fumarate 0.0048 mg/actuat / glycopyrrolate 0.009 mg/actuat metered dose inhaler (17 sources) Corticosteroid, beta2-Adrenergic Agonist Start: 06-02-2024 take 2 puff(s) by inhalation twice daily dddcdtmaux-ouixmiwq-ioetcdebjm (BREZTRI AEROSPHERE) 160-9-4.8 mcg/actuation HFA aerosol inhaler Inhale 2 Puffs as instructed two times a day. 06/02/2024 Suspended Start: 11-28-2022 End: 07-17-2024 Slqtgnahxf-Jxhiqzsk-Tkjmsqvp ol (Breztri Aerosphere) 160-9-4.8 mcg/actuation Hfa Aerosol Inhaler Discontinued 2 NMA INHALATION TWICE A DAY November 28, 2022 12:00am July 17, 2024 2:08pm Start: 11-28-2022 End: 07-17-2024 Start: 11-28-2022 Budesonide-Gly copyr-Formoterol (Breztri Aerosphere) 160-9-4.8 mcg/actuation Hfa Aerosol Inhaler Active 2 INH INHALATION TWICE A DAY November 27, 2022 11:00pm Start: 11-28-2022 Budesonide-Gly copyr-Formoterol (Breztri Aerosphere) 160-9-4.8 mcg/actuation Hfa Aerosol Inhaler Active 2 INH INHALATION TWICE A DAY November 28, 2022 12:00am calcium (20 sources) Phosphate Binder, Calcium Start: 10-29-2014 End: 12-21-2014 take 1 tablet by mouth once daily CALCIUM 500 MG TABS One tablet by mouth daily CALCIUM [id number] Lynda Ortiz RN Start: 10-29-2014 take 1 tablet by edy once daily CALCIUM 500 MG TABS One tablet by mouth daily CALCIUM [id number] Crispin Upton MD End: 06-02-2024 take 1000 [IU] by mouth once daily CALCIUM ORAL Take 1,000 Units by mouth once daily. 06/02/2024 Discontinued take 1000 [IU] by mo uth once daily CALCIUM ORAL Take 1,000 Units by mouth once daily. 0 Active Comment on above: Take 1,000 Units by mouth once daily. calcium carbonate 1250 mg oral tablet (6 sources) Start: 10-29-19 End: 12-22-19 take 1 tablet by mouth once daily CALCIUM 500 MG TABS One tablet by mouth daily CALCIUM [id number] Crispin Upton MD cefdinir 300 mg oral capsule (5 sources) Cephalosporin Antibacterial Start: 08-07-20 End: 08-16-20 take 1 tablet by mouth every twelve hours Cefdinir 300 mg Capsule Discontinued 300 mg PO EVERY 12 HOURS 4 0 August 07, 2024 1:00am August 16, 2024 5:30am DC after the forth tab has been given cetirizine hydrochloride 10 mg oral capsule (20 sources) Histamine-1 Receptor Antagonist Start: 02-14-20 End: 07-17-20 take 1 capsule by mouth once daily as needed Cetirizine (All Day Allergy (Cetirizine)) 10 mg capsule Discontinued 10 mg PO DAILY as needed for allergy symptoms February 14, 2024 12:00am July 17, 2024 2:08pm Start: 12-16-2019 take 1 tablet by edy th once daily cetirizine (ZYRTEC) 10 mg tablet Take 1 tablet by mouth once daily. [place] medication for allergies. 12/16/2019 Suspended Start: 12-14-2017 End: 01-02-2024 take 1 capsule by mouth once daily Cetirizine (Zyrtec) 10 MG capsule Discontinued 10 mg PO DAILY December 14, 2017 12:00am January 02, 2024 3:30pm allergies Start: 12-24-2014 take 1 tablet by edy th once daily CETIRIZINE HCL 10 MG TABS One tablet by mouth daily CETIRIZINE HCL [id number] Crispin Upton MD Start: 06-27-2008 take 1 dose by mouth twice daily cetirizine Dose : 10 mg =, PO, BID, 0 Refill(s), current med (Hx) Start Date: 06/27/08 Status: Ordered Comment on above: Take 1 tablet by edy th once daily. [place] medication for allergies. cholecalciferol 0.05 mg oral tablet (20 sources) Vitamin D Start: 12-13-19 End: 07-17-20 take 1 tablet by mouth once daily Cholecalciferol (Vitamin D3) (Vitamin D3) 50 mcg (2,000 unit) Tablet Discontinued 50 ug PO DAILY December 12, 2021 12:00am July 17, 2024 2:08pm SUPPLEMENT Start: 03-21-2017 take 2 capsules by [facility] once daily Cholecalciferol, Vitamin D3, 1,000 unit cap Take 2 capsules by mouth once daily. 0 03/21/2017 Suspended Start: 03-25-2016 End: 08-31-2021 take 2 tablets by mouth at bedtime Cholecalciferol (Vitamin D3) 1,000 UNIT tablet Discontinued 2000 U PO AT BEDTIME March 25, 2016 12:00am August 31, 2021 1:17pm supplement Start: 03-25-2016 End: 08-31-2021 Start: 03-25-2016 End: 08-31-2021 take 2000 [IU] by mouth at bedtime Cholecalciferol (Vitamin D3) Discontinued 2000 UNITS PO AT BEDTIME March 25, 2016 12:00am August 31, 2021 1:17pm take 1 capsule by mo [facility] once daily Cholecalciferol, Vitamin D3, 50 mcg (2,000 unit) cap Take 1 capsule by mouth once daily. Suspended Comment on above: Take 2 capsules by m [facility] once daily. clarithromycin 500 mg oral tablet (10 sources) Macrolide Antimicrobial Start: 013 End: 015 take 1 tablet by mouth once daily BIAXIN 500 MG TABS One tablet by mouth daily x 30 days CLARITHROMYCIN [id number] Crispin Upton MD clopidogrel 75 mg oral tablet (20 sources) P2Y12 Platelet Inhibitor Start: End: take 1 tablet by mouth at bedtime Clopidogrel 75 MG tablet Discontinued 75 mg PO AT BEDTIME June 16, 2013 12:00am August 16, 2024 5:30am blood thinner Comment on above: Take one(1) tablet d aily at bedtime. cyclobenzaprine hydrochloride 10 mg oral tablet (2 sources) Muscle Relaxant Start: End: take 1 tablet by mouth every eight hours as needed cyclobenzaprine (FLEXERIL) 10 mg tablet Take 1 tablet by mouth three times daily as needed for muscle spasm. 30 tablet 0 06/20/2021 12/15/2021 Discontinued Comment on above: Take 1 tablet by [facility] three times daily as needed for muscle spasm. 12 hr dextromethorphan hydrobromide 60 mg / guaiFENesin 1200 mg extended release oral tablet (17 sources) Uncompetitive N-ghhgza-I-aspartate Receptor Antagonist, Sigma-1 Agonist Start: 020 End: Dextromethorphan-Guai fenesin 60-1,200 mg tablet extended release 12 hr Discontinued 1 {tbl} PO Q12H 60 1 February 16, 2020 12:00am June 08, 2021 2:02pm Start: 02-16-2020 End: 06-08-2021 Start: 02-16-2020 End: 06-08-2021 take 1 tablet by mouth every twelve hours Dextromethorphan-Guaifenesin Discontinued 1 TABLET PO Q12H 60 February 16, 2020 12:00am June 08, 2021 2:02pm docusate sodium 50 mg / sennosides, fci 8.6 mg oral tablet (20 sources) Start: 08-07-2024 End: 10-15-2024 Sennosides-Docusate Sodium (Stimulant Laxative Plus) 8.6-50 mg Tablet Discontinued 2 {tbl} GT TWICE A DAY 1 August 07, 2024 1:00am October 15, 2024 6:13pm Start: 08-07-2024 End: 10-15-2024 Start: 07-17-2024 End: 08-07-2024 Sennosides-Docusate Sodium ( Senna With Docusate Sodium) 8.6-50 mg tablet Discontinued 2 NMA PO TWICE A DAY July 17, 2024 1:00am August 07, 2024 2:51pm Constipation Start: 07-17-2024 End: 08-07-2024 Start: 06-23-2024 End: 11-06-2024 take 2 tablets by mouth twice daily senna-docusate (SENNA-S) 8.6-50 mg per tablet 2 tablets by ORAL/FEEDING TUBE route two times a day. 06/23/2024 11/06/2024 Discontinued doxycycline monohydrate 100 mg oral tablet (20 sources) Tetracycline-class Drug Start: 09-12-2024 End: 10-13-2024 Doxycycline Monohydrate 100 mg tablet Discontinued 100 mg PO TWICE A DAY 20 September 12, 2024 1:00am October 13, 2024 2:06pm Begin the evening of 09/12/2024 and complete 20 doses Start: 01-04-2024 End: 02-08-2024 take 1 capsule by mouth twice daily Doxycycline Monohydrate 100 mg capsule Discontinued 100 mg PO TWICE A DAY 14 January 04, 2024 12:00am February 08, 2024 9:42pm Start: 09-26-2023 End: 01-02-2024 take 1 capsule by mouth twice daily Doxycycline Monohydrate 100 mg capsule Discontinued 100 mg PO TWICE A DAY 20 September 26, 2023 1:00am January 02, 2024 3:04pm Start: 08-28-2023 End: 01-02-2024 take 1 tablet by mouth twice daily Doxycycline Hyclate 100 mg tablet Discontinued 100 mg PO TWICE A DAY 20 0 August 28, 2023 1:00am January 02, 2024 3:04pm Start: 03-19-2023 End: 04-11-2023 take 1 capsule by mouth twice daily Doxycycline Monohydrate 100 mg capsule Discontinued 100 mg PO TWICE A DAY 14 0 March 19, 2023 12:00am April 11, 2023 7:44am Start: 12-17-2022 End: 12-24-2022 take 1 tablet by mouth twice daily doxycycline (VIBRA-TABS) 100 mg tablet Take 1 tablet by mouth twice daily for 7 days. 14 tablet 0 12/17/2022 12/24/2022 Active Start: 08-16-2022 End: 09-13-2022 take 1 tablet by mouth twice daily Doxycycline Hyclate 100 mg tablet Discontinued 100 mg PO TWICE A DAY 20 0 August 16, 2022 1:00am September 13, 2022 2:16pm Start: 11-10-2019 End: 12-21-2019 take 1 capsule by mouth twice daily Doxycycline Monohydrate 100 MG capsule Discontinued 100 mg PO TWICE A DAY 14 0 November 10, 2019 12:00am December 21, 2019 2:08pm Start: 05-06-2019 End: 05-14-2019 take 1 capsule by mouth twice daily Doxycycline Monohydrate 100 MG capsule Discontinued 100 mg PO TWICE A DAY 20 0 May 06, 2019 12:00am May 14, 2019 2:03am Start: 12-14-2017 End: 04-02-2018 take 1 capsule by mouth twice daily Doxycycline Monohydrate 100 MG capsule Discontinued 100 mg PO TWICE A DAY 20 0 December 14, 2017 12:00am April 02, 2018 8:57am Comment on above: Take 1 tablet by edy th twice daily for 7 days. 0.4 ml enoxaparin sodium 100 mg/ml prefilled syringe (17 sources) Low Molecular Weight Heparin Start: 07-17-2024 End: 08-07-2024 Enoxaparin (Lovenox) 40 mg/0.4 mL syringe Discontinued 40 mg SC DAILY July 17, 2024 1:00am August 07, 2024 2:37pm Blood thinne Start: 07-17-2024 End: 08-07-2024 Start: 06-23-2024 End: 11-06-2024 inject 40 mg by subcutaneous injection every twenty-four hours enoxaparin (LOVENOX) 40 mg/0.4 mL Inject 0.4 mL subcutaneously every 24 hours. 06/23/2024 11/06/2024 Discontinued famotidine 20 mg oral tablet (13 sources) Histamine-2 Receptor Antagonist Start: 08-07-2024 End: 10-31-2024 Famotidine 20 mg Tablet Discontinued 20 mg GT TWICE A DAY 1 August 07, 2024 1:00am October 31, 2024 9:53am Start: 07-17-2024 End: 08-07-2024 take 1 tablet by mouth twice daily Famotidine (Pepcid) 20 mg tablet Discontinued 20 mg PO TWICE A DAY July 17, 2024 1:00am August 07, 2024 2:37pm GERD Start: 07-17-2024 End: 08-07-2024 ferrous sulfate 60 mg/ml ora l solution (5 sources) Start: 08-07-2024 End: 11-19-2024 Ferrous Sulfate 300 mg (60 m g iron)/5 mL Liquid Discontinued 300 mg GT WITH BREAKFAST 1 August 07, 2024 1:00am November 19, 2024 2:02pm Start: 08-07-2024 End: 11-19-2024 fexofenadine hydrochloride 180 mg oral tablet (10 sources) Histamine-1 Receptor Antagonist Start: 01-02-2024 End: 02-14-2024 take 1 tablet by mouth once daily Fexofenadine (Harriet Allergy) 180 mg tablet Discontinued 180 mg PO DAILY January 02, 2024 12:00am February 14, 2024 8:26am Chronic obstructive pulmonary disease Chronic obstructive pulmonary disease with (acute) exacerbation Food Supplemt, Lactose-Reduced (Ensure Plus High Protein) 0.08 gram-1.5 kcal/mL Liquid (4 sources) Start: 08-07-2024 End: 08-16-2024 Food Supplemt, Lactose-Reduced (Ensure Plus High Protein) 0.08 gram-1.5 kcal/mL Liquid Discontinued 120 mL PO 3 TIMES DAILY WITH MEALS 1 August 07, 2024 1:00am August 16, 2024 5:27am Start: 08-07-2024 End: 08-16-2024 Food Supplemt, Lactose-Reduc ed (Ensure Plus High Protein) 0.08 gram-1.5 kcal/mL Liquid Discontinued 120 mL PO 3 TIMES DAILY WITH MEALS 1 August 07, 2024 1:00am August 16, 2024 5:27am glucagon (rdna) 1 mg injection (20 sources) Antihypoglycemic Agent Start: 06-23-2024 End: 12-09-2024 glucagon 1 mg/mL injection Inject 1 mg intramuscularly as needed. 06/23/2024 12/09/2024 Discontinued glucose 4000 mg chewable tablet (20 sources) Start: 07-17-2024 End: 08-16-2024 Glucose (Dex4 Glucose) 4 gram tablet,chewable Discontinued 4 g PO Q15M as needed for low blood sugar July 17, 2024 1:00am August 16, 2024 5:27am until symptoms of low blood sugar are controlled Start: 07-17-2024 End: 08-16-2024 Start: 06-23-2024 End: 11-06-2024 dextrose (TRUEPLUS) 15 gram/ 32 mL oral gel Take 32 mL by mouth as needed. 06/23/2024 11/06/2024 Discontinued Start: 06-23-2024 End: 11-06-2024 dextrose 10% Inject 125 mL i ntravenously as needed (low blood sugar). 06/23/2024 11/06/2024 Discontinued ibuprofen (2 sources) Nonsteroidal Anti-inflammatory Drug Start: 05-13-2013 take 1 tablet by mouth once daily ASPIRIN EC LOW DOSE 81 MG TBEC One tablet by mouth daily ASPIRIN [id number] Sierra Ohara RN isosorbide mononitrate 10 mg oral tablet (10 sources) Start: 05-13-2013 End: 10-29-2014 take 1 tablet by mouth once daily MONOKET 10 MG TABS One tablet by mouth daily ISOSORBIDE MONONITRATE Lynda Ortiz RN Lactose-Reduced Food With Fibr (Jevity 1.5 Jay) 0.06 gram-1.5 kcal/mL Liquid (4 sources) Start: 08-07-2024 End: 08-17-2024 Lactose-Reduced Food With Fibr (Jevity 1.5 Jay) 0.06 gram-1.5 kcal/mL Liquid Discontinued 240 mL GT 3 TIMES DAILY NEEDED as needed for FEEDING INSTRUCTIONS 1 August 07, 2024 1:00am August 17, 2024 12:22pm PRN if he eats less than 50% of his meal Start: 08-07-2024 End: 08-17-2024 Lactose-Reduced Food With Fi br (Jevity 1.5 Jay) 0.06 gram-1.5 kcal/mL Liquid Discontinued 240 mL GT 3 TIMES DAILY NEEDED as needed for FEEDING INSTRUCTIONS August 07, 2024 1:00am August 17, 2024 12:22pm PRN if he eats less than 50% of his meal levocetirizine dihydrochloride 5 mg oral tablet (20 sources) Histamine-1 Receptor Antagonist Start: 09-23-2019 End: 08-31-2021 take 1 tablet by mouth once daily Levocetirizine 5 mg tablet Discontinued 5 mg PO DAILY September 23, 2019 1:00am August 31, 2021 1:10pm allergies Start: 12-24-2014 take 1 tablet by edy once daily as needed LEVOCETIRIZINE DIHYDROCHLORIDE 5 MG TABS One tablet by mouth daily as needed LEVOCETIRIZINE DIHYDROCHLORIDE [id number] Crispin Upton MD Start: 05-13-2013 End: 12-21-2014 LEVOCETIRIZINE DIHYDROCHLORI DE 5 MG TABS prn LEVOCETIRIZINE DIHYDROCHLORIDE [id number] Lynda Ortiz RN levoFLOXacin 750 mg oral tablet (20 sources) Quinolone Antimicrobial Start: 04-15-2023 End: 07-11-2023 take 1 tablet by mouth once daily Levofloxacin 750 mg tablet Discontinued 750 mg PO DAILY 7 April 15, 2023 12:00am July 11, 2023 10:19am Start: 12-14-2021 End: 12-18-2021 take 1 tablet by mouth once daily levoFLOXacin (LEVAQUIN) 500 mg tablet Indications: Chronic obstructive pulmonary disease with acute exacerbation (HCC) , Pneumonia due to infectious organism, unspecified laterality, unspecified part of lung Take 1 tablet by mouth once daily. 0 12/14/2021 12/18/2021 Start: 08-31-2021 End: 11-13-2021 take 1 tablet by mouth once daily Levofloxacin 500 mg tablet Discontinued 500 mg PO DAILY 5 0 August 31, 2021 1:00am November 13, 2021 2:12pm Start: 08-07-2021 End: 08-14-2021 take 1 tablet by mouth every twenty-four hours Levofloxacin 750 mg tablet Discontinued 750 mg PO Q24H 7 7 0 August 07, 2021 1:00am August 13, 2021 1:00am August 14, 2021 1:01am Start: 07-02-2021 End: 08-14-2021 take 1 tablet by mouth once daily Levofloxacin 750 mg tablet Discontinued 750 mg PO DAILY 4 4 0 July 02, 2021 12:00am August 07, 2021 9:04am Comment on above: Take 1 tablet by edy once daily. lidocaine 0.05 mg/mg medicated patch (20 sources) Antiarrhythmic, Amide Local Anesthetic Start: End: apply 1 dose transdermal route once daily, then apply 1 dose transdermal route every twelve hours lidocaine (LIDODERM) 5 % Apply 1 Patch as directed once daily. to affected area. Remove patch after 12 hours. 11/06/2024 11/18/2024 Discontinued Start: 10-01-2024 End: 11-19-2024 Lidocaine 5 % adhesive patch,medicated Discontinued 1 NMA TOPICAL daily October 01, 2024 1:00am November 19, 2024 2:03pm apply to right lower back Qam for pain Start: 07-17-2024 End: 08-07-2024 Lidocaine 4 % adhesive patch,medicated Discontinued 1 NMA TOPICAL DAILY July 17, 2024 1:00am August 07, 2024 2:42pm pain Start: 06-24-2024 End: 11-18-2024 apply 1 dose transdermal route once daily lidocaine 4 % patch Place 1 patch on the skin once daily. 07/18/2024 Active lisinopril 2.5 mg oral tablet (20 sources) Angiotensin Converting Enzyme Inhibitor Start: 12-12-2021 End: 07-17-2024 take 1 tablet by mouth once daily Lisinopril 2.5 mg Tablet Discontinued 2.5 mg PO DAILY December 12, 2021 12:00am July 17, 2024 2:10pm BLOOD PRESSURE Start: 10-24-2015 take 1 tablet by edy once daily LISINOPRIL 2.5 MG TABS One tablet by mouth daily LISINOPRIL [id number] Crispin Upton MD Start: 06-29-2008 End: 12-21-2014 take 1 tablet by mouth once daily LISINOPRIL 2.5 MG TABS One tablet by mouth daily (on HOLD) LISINOPRIL [id number] Crispin Upton MD Comment on above: Take 2.5 mg by mouth once daily. loratadine 10 mg oral tablet (11 sources) Start: 06-27-2008 End: 12-21-2014 take 1 tablet by mouth once daily LORATADINE 10 MG TABS One tablet by mouth daily LORATADINE [id number] Crispin Upton MD Magnesium Hydroxide (4 sources) Start: 08-07-2024 End: 11-19-2024 Magnesium Hydroxide 400 mg/5 mL Suspension Discontinued 30 mL GT ONE TIME as needed for Constipation 1 August 07, 2024 1:00am November 19, 2024 2:03pm As needed for constipation Start: 08-07-2024 End: 11-19-2024 Magnesium Hydroxide 400 mg/5 mL Suspension Discontinued 30 mL GT ONE TIME as needed for Constipation August 07, 2024 1:00am November 19, 2024 2:03pm As needed for constipation mometasone furoate 0.05 mg/actuat metered dose nasal spray (16 sources) Corticosteroid Start: 12-24-2014 NASONEX 50 MCG /ACT SUSP Take as directed MOMETASONE FUROATE [id number] Crispin Upton MD Start: 12-24-2014 NASONEX 50 MCG /ACT SUSP Take as directed MOMETASONE FUROATE [id number] Crispin Upton MD Start: 05-13-2013 End: 12-21-2014 NASONEX 50 MCG/ACT SUSP Take as directed MOMETASONE FUROATE [id number] Crispin Upton MD Start: 05-13-2013 End: 12-21-2014 NASONEX 50 MCG/ACT SUSP Take as directed MOMETASONE FUROATE [id number] Lynda Ortiz RN Start: 05-13-2013 NASONEX 50 MCG /ACT SUSP Take as directed MOMETASONE FUROATE [id number] Lynda Ortiz RN Start: 06-27-2008 take 1 spray(s) nasa l route once daily mometasone nasal 50 mcg/inh spray See Instructions, in each nostril- one spray daily, 0 Refill(s), current med (Hx) Start Date: 06/27/08 Status: Ordered Mometasone-Formoterol (Duler a) 200-5 mcg/actuation HFA aerosol inhaler (14 sources) Start: 03-16-2022 End: 06-22-2022 Mometasone-Formoterol (Duler a) 200-5 mcg/actuation HFA aerosol inhaler Discontinued 2 NMA INHALATION TWICE A DAY 3 3 March 16, 2022 12:00am June 22, 2022 10:04am Start: 03-16-2022 End: 06-22-2022 Mometasone-Formoterol (Duler a) 200-5 mcg/actuation HFA aerosol inhaler Discontinued 2 NMA INHALATION TWICE A DAY 3 March 16, 2022 12:00am June 22, 2022 10:04am Start: 03-16-2022 End: 06-22-2022 Mometasone-Formoterol (Duler a) 200-5 mcg/actuation HFA aerosol inhaler Discontinued 2 INH INHALATION TWICE A DAY 3 March 16, 2022 12:00am June 22, 2022 10:04am Start: 03-16-2022 End: 06-22-2022 Mometasone-Formoterol (Duler a) 200-5 mcg/actuation HFA aerosol inhaler Discontinued 2 INH INHALATION TWICE A DAY 3 March 15, 2022 11:00pm June 22, 2022 9:04am Kwpuaxtb-Uyt-Bzjienu Glucona te (Multi-William) 9 mg iron/15 mL Liquid (4 sources) Start: 08-07-2024 End: 11-19-2024 Czcfocjs-Axy-Jbpaadl Glucona te (Multi-William) 9 mg iron/15 mL Liquid Discontinued 15 mL GT DAILY WITH MEALS 1 August 07, 2024 1:00am November 19, 2024 2:04pm Start: 08-07-2024 End: 11-19-2024 Rzxaktkn-Oha-Tzayett Glucona te (Multi-William) 9 mg iron/15 mL Liquid Discontinued 15 mL GT DAILY WITH MEALS August 07, 2024 1:00am November 19, 2024 2:04pm naproxen 500 mg oral tablet (17 sources) Nonsteroidal Anti-inflammatory Drug Start: 01-26-2021 End: 06-08-2021 take 1 tablet by mouth twice daily Naproxen 500 mg tablet Discontinued 500 mg PO TWICE A DAY January 26, 2021 12:00am June 08, 2021 2:02pm Nutritional Supplements (Nutren 1.5) 0.07 gram-1.5 kcal/mL liquid (4 sources) Start: 08-17-2024 End: 11-19-2024 Nutritional Supplements (Nutren 1.5) 0.07 gram-1.5 kcal/mL liquid Discontinued 240 mL PO Q5H as needed for low appetite August 17, 2024 1:00am November 19, 2024 2:04pm give for supplement if 30cc flush before and after. 10 actuat olodaterol 0.0025 mg/actuat / tiotropium 0.0025 mg/actuat inhalation spray (20 sources) Anticholinergic, beta2-Adrenergic Agonist Start: 12-15-2021 End: 06-02-2024 tiotropium-olodat alissa (STIOLTO RESPIMAT) 2.5-2.5 mcg/actuation Indications: Chronic obstructive pulmonary disease with acute exacerbation (HCC) Inhale 2 Puffs as instructed once daily. 12/15/2021 06/02/2024 Discontinued (Discontinued by another Health Care Provider) Start: 11-15-2021 End: 03-16-2022 Tiotropium-Olodaterol (Stiol to Respimat) 2.5-2.5 mcg/actuation mist Discontinued 2 NMA INHALATION DAILY 4 November 15, 2021 11:49am March 16, 2022 10:36am Chronic obstructive pulmonary disease Chronic obstructive pulmonary disease with (acute) exacerbation Start: 11-15-2021 End: 03-16-2022 Tiotropium-Olodaterol (Stiol to Respimat) 2.5-2.5 mcg/actuation mist Discontinued 2 NMA INHALATION DAILY 4 November 15, 2021 11:49am March 16, 2022 10:36am Start: 11-15-2021 End: 03-16-2022 Start: 11-15-2021 End: 03-16-2022 Tiotropium-Olodaterol (Stiol to Respimat) 2.5-2.5 mcg/actuation mist Discontinued 2 INH INHALATION DAILY November 15, 2021 11:49am March 16, 2022 10:36am Start: 11-15-2021 End: 03-16-2022 Tiotropium-Olodaterol (Stiol to Respimat) 2.5-2.5 mcg/actuation mist Discontinued 2 INH INHALATION DAILY 4 November 15, 2021 10:49am March 16, 2022 9:36am Start: 11-15-2021 Tiotropium-Olo daterol (Stiolto Respimat) 2.5-2.5 mcg/actuation mist Active 2 INH INHALATION DAILY November 15, 2021 11:49am Start: 08-04-2021 End: 11-15-2021 Tiotropium-Olodaterol (Stiol to Respimat) 2.5-2.5 mcg/actuation mist Discontinued 2 INH INHALATION DAILY August 04, 2021 10:00am November 15, 2021 11:49am Start: 08-04-2021 End: 11-15-2021 Tiotropium-Olodaterol (Stiol to Respimat) 2.5-2.5 mcg/actuation mist Discontinued 2 NMA INHALATION DAILY 4 August 04, 2021 1:00am November 15, 2021 11:49am Chronic obstructive pulmonary disease Chronic obstructive pulmonary disease with (acute) exacerbation Start: 08-04-2021 End: 11-15-2021 Tiotropium-Olodaterol (Stiol to Respimat) 2.5-2.5 mcg/actuation mist Discontinued 2 NMA INHALATION DAILY August 04, 2021 1:00am November 15, 2021 11:49am Start: 08-04-2021 End: 11-15-2021 Start: 08-04-2021 End: 11-15-2021 Tiotropium-Olodaterol (Stiol to Respimat) 2.5-2.5 mcg/actuation mist Discontinued 2 INH INHALATION DAILY August 04, 2021 1:00am November 15, 2021 11:49am Start: 08-04-2021 End: 11-15-2021 Tiotropium-Olodaterol (Stiol to Respimat) 2.5-2.5 mcg/actuation mist Discontinued 2 INH INHALATION DAILY August 04, 2021 12:00am November 15, 2021 10:49am Comment on above: Inhale 2 Puffs as in structed once daily. olopatadine 2 mg/ml ophthalmic solution (10 sources) Histamine-1 Receptor Inhibitor Start: 05-13-2013 End: 12-21-2014 PATADAY 0.2 % SOLN prn OLOPATADINE HCL [id number] Lynda Ortiz RN Start: 05-13-2013 PATADAY 0.2 % SOLN prn OLOPATADINE HCL [id number] Lynda Ortiz RN Start: 05-13-2013 End: 12-21-2014 PATADAY 0.2 % SOLN prn 05/13 OLOPATADINE HCL [id number] Lynda Ortiz RN omeprazole 20 mg delayed release oral capsule (20 sources) Proton Pump Inhibitor Start: 12-20-2022 End: 08-07-2024 take 2 capsules by mouth twice daily Omeprazole 20 mg capsule,delayed release(DR/EC) Discontinued 40 mg PO TWICE A DAY 120 1 December 20, 2022 10:33am August 07, 2024 2:43pm GERD On Hold: Order Changed Start: 01-30-2022 End: 12-20-2022 take 40 mg by mouth once daily Omeprazole Discontinued 40 MG PO DAILY January 30, 2022 2:46pm December 20, 2022 10:34am Start: 05-13-2017 End: 01-30-2022 take 1 capsule by mouth once daily Omeprazole 20 MG capsule Discontinued 20 mg PO DAILY May 13, 2017 12:00am January 30, 2022 2:47pm acid reflux Start: 05-13-2017 End: 08-07-2024 Start: 05-13-2013 End: 12-20-2022 take 2 capsules by mouth once daily Omeprazole 20 mg capsule,delayed release(DR/EC) Discontinued 40 mg PO DAILY January 30, 2022 2:46pm December 20, 2022 10:34am acid reflux Start: 05-13-2013 take 1 tablet by edy th once daily OMEPRAZOLE 20 MG CPDR One tablet by mouth daily OMEPRAZOLE [id number] Lynda Ortiz RN Start: 06-27-2008 take 1 dose by mouth once yessenia y omeprazole Dose : 20 mg =, PO, Daily, 0 Refill(s), current med (Hx) Start Date: 06/27/08 Status: Ordered omeprazole (PriL OSEC) 20 mg tablet,delayed release (DR/EC) EC tablet Take 1 tablet (20 mg) by mouth. Active Comment on above: 2 tabs once a day oxyCODONE hydrochloride 5 mg oral tablet (15 sources) Opioid Agonist Start: End: take 1 tablet by mouth every six hours as needed for pain Oxycodone 5 mg tablet Discontinued 5 mg PO EVERY 6 HOURS as needed for pain 14 7 0 August 07, 2024 September 11, 2024 5:14pm Pain of left great toe Pain in left toe(s) Start: 08-07-2024 End: 08-16-2024 Oxycodone 5 mg Tablet Discon tinued 5 mg GT EVERY 4 HOURS NEEDED as needed for Pain Score 4-10 14 7 0 August 07, 2024 August 16, 2024 5:26am Pain of left great toe Pain in left toe(s) Start: 07-17-2024 End: 09-11-2024 take 5-10 mg by mouth every four hours as needed for pain Oxycodone 5 mg tablet Discontinued 5 - 10 mg PO Q4H as needed for Pain July 17, 2024 1:00am August 07, 2024 2:44pm PEP device (20 sources) Start: 01-30-2022 End: 07-27-2024 PEP device Discontinued 0 .R OUTE .MEDSUPPLY January 30, 2022 2:47pm July 27, 2024 6:34pm Bronchiectasis, uncomplicated with training Start: 01-30-2022 End: 07-27-2024 PEP device Discontinued 0 .R OUTE .MEDSUPPLY January 30, 2022 2:47pm July 27, 2024 6:34pm with training Start: 01-30-2022 PEP device Act concepción 0 .ROUTE .MEDSUPPLY January 30, 2022 2:47pm with training Start: 01-30-2022 PEP device Act concepción 0 .ROUTE .MEDSUPPLY January 30, 2022 1:47pm with training Start: 04-27-2020 End: 01-30-2022 PEP device Discontinued 0 .R OUTE .MEDSUPPLY 1 0 April 27, 2020 2:05pm January 30, 2022 2:47pm Bronchiectasis, uncomplicated with training Start: 04-27-2020 End: 01-30-2022 PEP device Discontinued 0 .R OUTE .MEDSUPPLY 1 April 27, 2020 2:05pm January 30, 2022 2:47pm with training Start: 04-27-2020 End: 01-30-2022 PEP device Discontinued 0 .R OUTE .MEDSUPPLY 1 April 27, 2020 1:05pm January 30, 2022 1:47pm with training Start: 04-27-2020 PEP device Act concepción 0 .ROUTE .MEDSUPPLY 1 April 27, 2020 2:05pm with training Start: 04-26-2020 End: 04-27-2020 PEP device Discontinued 0 .R OUTE .MEDSUPPLY 1 April 26, 2020 2:24pm April 27, 2020 2:05pm with training Start: 04-26-2020 End: 04-27-2020 PEP device Discontinued 0 .R OUTE .MEDSUPPLY 1 0 April 26, 2020 12:00am April 27, 2020 2:05pm Bronchiectasis, uncomplicated with training Start: 04-26-2020 End: 04-27-2020 PEP device Discontinued 0 .R OUTE .MEDSUPPLY April 26, 2020 12:00am April 27, 2020 2:05pm with training Start: 04-26-2020 End: 04-27-2020 PEP device Discontinued 0 .R OUTE .MEDSUPPLY 1 April 25, 2020 11:00pm April 27, 2020 1:05pm with training polyethylene glycol 3350 52535 mg powder for oral solution (20 sources) Osmotic Laxative Start: 06-23-2024 End: 12-09-2024 take 17 g by mouth twice daily Polyethylene Glycol 3350 17 gram/dose powder Discontinued 17 g PO TWICE A DAY July 17, 2024 1:00am August 16, 2024 5:27am Constipation rosuvastatin calcium 40 mg oral tablet (10 sources) HMG-CoA Reductase Inhibitor Start: 10-29-2014 End: 12-21-2014 CRESTOR 40 MG TABS One half tablet by mouth daily ROSUVASTATIN CALCIUM [id number] Crispin Upton MD simethicone 180 mg oral capsule (10 sources) Start: 12-24-2014 End: 06-28-2015 take 1 tablet by mouth four times daily as needed GAS RELIEF ULTRA STRENGTH CAPS One tablet by mouth four times daily as needed SIMETHICONE CAPS [id number] Crispin Upton MD Start: 12-24-2014 take 1 tablet by edy th four times daily as needed GAS RELIEF ULTRA STRENGTH CAPS One tablet by mouth four times daily as needed SIMETHICONE CAPS [id number] Crispin Upton MD Start: 12-24-2014 End: 06-28-2015 take 1 tablet by mouth four times daily as needed GAS RELIEF ULTRA STRENGTH CAPS One tablet by mouth four times daily as needed SIMETHICONE CAPS [id number] Sierra Arrieta PA-C vitamin d 1000 unt oral tablet (5 sources) Start: 12-24-2014 take 2 tablets by mouth once daily VITAMIN D 1000 UNIT TABS Two tablets by mouth daily CHOLECALCIFEROL [id number] Crispin Upton MD Start: 12-24-2014 take 2 tablets by mo uth once daily VITAMIN D 1000 UNIT TABS Two tablets by mouth daily CHOLECALCIFEROL [id number] Crispin Upton MD Problems Active Problems Problem Classification Problem Date Documented Da te Episodic/Chronic Acute bronchitis (7 sources) Acute exacerbation of chronic bronchitis; Translations: [Acute bronchitis, unspecified] 01-04-2024 Episodic Acute cerebrovascular disease (20 sources) Cerebral hemorrhage; Translations: [Nontraumatic intracerebral hemorrhage, unspecified] Onset: Resolved: 5 06-21-2024 Chronic Comment on above: Small. No interventi on was necessary other than discontinuation of aspirin and holding anticoagulation for DVT prophylaxis. Acute myocardial infarction (5 sources) Myocardial infarction; Translations: [ST elevation (STEMI) myocardial infarction involving other coronary artery of inferior wall] Onset: 3 05-13-2013 Chronic Administrative/social admission (1 source) Patient encounter status; Translations: [Persons encountering health services in other specified circumstances] 12-07-2024 Episodic Asthma (20 sources) Asthma; Translations: [Unspecified asthma, uncomplicated] 09-10-2011 Chronic Comment on above: FEV1 67%. Stage II m oderate COPD per Gold classification Cardiac arrest and ventricular fibrillation (20 sources) Cardiac arrest; Translations: [Cardiac arrest, cause unspecified] Onset: 4 Resolved: 5 06-04-2024 Chronic Cardiac dysrhythmias (20 sources) Atrial paroxysmal tachycardia; Translations: [Supraventricular tachycardia] Chronic Chronic obstructive pulmonary disease and bronchiectasis (20 sources) Chronic obstructive lung disease; Translations: [Chronic obstructive pulmonary disease with (acute) exacerbation] Onset: 3 Resolved: 5 05-13-2013 Chronic Coma; stupor; and brain damage (20 sources) Anoxic brain damage, not elsewhere classified; Translations: [Anoxic brain damage] Onset: 4 10-19-2024 Chronic Conditions associated with dizziness or vertigo (17 sources) Dizziness; Translations: [Dizziness and giddiness] 12-22-2021 Episodic Coronary atherosclerosis and other heart disease (20 sources) Generalized ischemic myocardial dysfunction; Translations: [Coronary arteriosclerosis] Onset: 8 Resolved: 7 06-28-2015 Chronic Comment on above: PTCA and stenting RC A 06/27/2008 at [place]; Delirium, dementia, and amnestic and other cognitive disorders (6 sources) Cognitive disorder; Translations: [Unspecified mental disorder due to known physiological condition] Onset: 4 07-20-2024 Chronic Comment on above: 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 Diabetes mellitus without complication (20 sources) Type 2 diabetes mellitus without complication; Translations: [Type 2 diabetes mellitus without complications] Onset: 4 06-15-2024 Chronic Diseases of white blood cells (20 sources) Leukocytosis; Translations: [Elevated white blood cell count, unspecified] Onset: 4 06-15-2024 Chronic Disorders of lipid metabolism (20 sources) Hyperlipidemia; Translations: [Hyperlipidemia, unspecified] Onset: 2 05-21-2013 Chronic Esophageal disorders (20 sources) Gastroesophageal reflux disease; Translations: [Gastro-esophageal reflux disease without esophagitis] Resolved: 6 Chronic Esophageal disorders (15 sources) Esophagitis; Translations: [Esophagitis determined by endoscopy] 11-19-2024 Episodic Essential hypertension (20 sources) Hypertensive disorder; Translations: [Essential (primary) hypertension] Onset: 4 09-10-2011 Chronic Fever of unknown origin (2 sources) Fever; Translations: [Fever, unspecified] 11-06-2024 Episodic Gastroduodenal ulcer (except hemorrhage) (12 sources) Gastric ulcer; Translations: [Gastric ulcer, unspecified as acute or chronic, without hemorrhage or perforation] 11-19-2024 Chronic Gastrointestinal hemorrhage (20 sources) Gastrointestinal hemorrhage; Translations: [Gastrointestinal hemorrhage, unspecified] Onset: 5 Resolved: 5 11-06-2024 Episodic Genitourinary symptoms and ill-defined conditions (2 sources) Urge incontinence of urine; Translations: [Urge incontinence] Onset: 5 02-05-2025 Chronic Genitourinary symptoms and ill-defined conditions (20 sources) Blood in urine; Translations: [Hematuria, unspecified] Onset: 2 Resolved: 6 11-09-2015 Episodic Hyperplasia of prostate (1 source) Benign prostatic hyperplasia; Translations: [Benign prostatic hyperplasia without lower urinary tract symptoms] Chronic Immunizations and screening for infectious disease (1 source) Vaccination needed; Translations: [Encounter for immunization] 12-09-2024 Episodic Mood disorders (20 sources) Major depression with psychotic features; Translations: [Major depressive disorder, single episode, severe with psychotic features] Onset: 4 10-19-2024 Chronic Comment on above: delusions. Mood disorders (1 source) Mood disorders; Translations: [Depression, unspecified] Onset: 4 Mycoses (17 sources) Candidiasis of mouth; Translations: [Candidal stomatitis] 12-22-2021 Episodic Osteoporosis (20 sources) Osteoporosis; Translations: [Other osteoporosis without current pathological fracture] Onset: 4 06-02-2024 Chronic Other aftercare (5 sources) Long-term current use of anticoagulant; Translations: [senior living (current) use of anticoagulants] 08-24-2024 Episodic Other and ill-defined cerebrovascular disease (2 sources) Cerebral ischemia; Translations: [Cerebral ischemia] Onset: 5 Chronic Other circulatory disease (2 sources) History of subarachnoid hemorrhage; Translations: [Personal history of other diseases of the circulatory system] 03-29-2025 Episodic Other circulatory disease (2 sources) Personal history of other diseases of the circulatory system; Translations: [Personal history of other diseases of the circulatory system] Onset: 5 Episodic Other connective tissue disease (17 sources) Hand pain; Translations: [Pain in left hand] 10-22-2019 Episodic Other connective tissue disease (5 sources) Pain in hallux; Translations: [Pain in left toe(s)] 08-07-2024 Episodic Other disorders of stomach and duodenum (1 source) Disorder of function of stomach; Translations: [Disease of stomach and duodenum, unspecified] Episodic Other ear and sense organ disorders (2 sources) Impacted cerumen in left ear; Translations: [Impacted cerumen, left ear] Episodic Other fractures (1 source) Multiple fractures of ribs, right side, initial encounter for closed fracture; Translations: [Closed fracture of multiple ribs of right side, initial encounter] Onset: 4 Episodic Other fractures (5 sources) Fracture of multiple ribs ; Translations: [Multiple fractures of ribs, unspecified side, initial encounter for closed fracture] 08-15-2024 Episodic Other gastrointestinal disorders (5 sources) History of placement of gastrostomy tube; Translations: [Gastrostomy status] 08-15-2024 Chronic Comment on above: 06/18/2024 at [facility]. Other gastrointestinal disorders (1 source) Gastrostomy status; Translations: [Gastrostomy status] Onset: 4 Chronic Other gastrointestinal disorders (17 sources) Diarrhea; Translations: [Diarrhea, unspecified] 09-23-2021 Episodic Other gastrointestinal disorders (2 sources) Difficulty swallowing solids; Translations: [Dysphagia, unspecified] Episodic Other injuries and conditions due to external causes (1 source) Traumatic subcutaneous emphysema, initial encounter; Translations: [Subcutaneous emphysema, initial encounter ([facility])] Onset: 4 Episodic Other lower respiratory disease (20 sources) Dyspnea; Translations: [Dyspnea, unspecified] Onset: 3 05-14-2013 Episodic Other lower respiratory disease (6 sources) Wheezing; Translations: [Wheezing] 05-12-2024 Episodic Other lower respiratory disease (17 sources) Hypoxemia; Translations: [Hypoxemia] 12-22-2021 Episodic Other lower respiratory disease (17 sources) Hypoxia; Translations: [Hypoxemia] 09-08-2021 Episodic Other lower respiratory disease (1 source) Hypoxemia; Translations: [Hypoxemia] Episodic Other lower respiratory disease (7 sources) Multiple nodules of lung; Translations: [Other nonspecific abnormal finding of lung field] 01-27-2025 Episodic Other nervous system disorders (1 source) Encephalopathy, unspecified; Translations: [Encephalopathy, unspecified type] Onset: 4 Chronic Other non-traumatic joint disorders (17 sources) Pain in wrist; Translations: [Pain in right wrist] 12-22-2021 Episodic Other screening for suspected conditions (not mental disorders or infectious disease) (20 sources) Magnetic resonance imaging of brain abnormal; Translations: [Other abnormal findings on diagnostic imaging of central nervous system] Onset: 4 06-18-2024 Episodic Other skin disorders (1 source) Mass of neck; Translations: [Localized swelling, mass and lump, neck] 12-18-2024 Episodic Other upper respiratory disease (20 sources) Seasonal allergic rhinitis; Translations: [Other allergic rhinitis] Onset: 8 01-14-2018 Chronic Other upper respiratory disease (20 sources) Allergic rhinitis due to pollen; Translations: [Allergic rhinitis due to pollen] Onset: 8 01-14-2018 Chronic Other upper respiratory disease (10 sources) Tracheostomy present; Translations: [Tracheostomy status] 10-15-2024 Chronic Other upper respiratory disease (1 source) Other seasonal allergic rhinitis; Translations: [Seasonal allergic rhinitis due to fungal spores] Onset: 8 Chronic Other upper respiratory disease (7 sources) Acute bronchospasm; Translations: [Acute bronchospasm] 01-04-2024 Episodic Paralysis (20 sources) Tetraparesis; Translations: [Quadriplegia, unspecified] Onset: 4 06-18-2024 Chronic Residual codes; unclassified (16 sources) Obstructive sleep apnea syndrome; Translations: [Obstructive sleep apnea (adult) (pediatric)] Onset: 9 03-20-2019 Chronic Residual codes; unclassified (1 source) Hypersomnia; Translations: [Hypersomnia, unspecified] Chronic Residual codes; unclassified (5 sources) Restlessness and agitation; Translations: [Restlessness and agitation] 08-15-2024 Chronic Residual codes; unclassified (1 source) Restlessness and agitation; Translations: [Restlessness and agitation] Onset: 4 Chronic Residual codes; unclassified (15 sources) Harmful pattern of use of nicotine; Translations: [Tobacco use] 03-16-2022 Episodic Comment on above: [id number] smoking history Residual codes; unclassified (7 sources) Tobacco use and exposure - finding; Translations: [Tobacco use] 01-04-2024 Episodic Residual codes; unclassified (5 sources) History of clinical finding in subject; Translations: [Personal history of other medical treatment] 09-11-2024 Episodic Respiratory failure; insufficiency; arrest (20 sources) Acute and chronic respiratory failure, unspecified whether with hypoxia or hypercapnia; Translations: [Acute on chronic hypoxemic respiratory failure] Onset: 8 Resolved: 5 07-10-2021 Chronic Respiratory failure; insufficiency; arrest (adult) (4 sources) Respiratory failure; insufficiency; arrest (adult) 11-18-2024 Screening or history of mental health and substance abuse (10 sources) Tobacco dependence syndrome; Translations: [Nicotine dependence, unspecified, uncomplicated] Onset: 3 05-13-2013 Chronic Spondylosis; intervertebral disc disorders; other back problems (6 sources) Cervical spondylosis; Translations: [Spondylosis without myelopathy or radiculopathy, cervical region] Onset: 4 08-15-2024 Chronic Sprains and strains (20 sources) Sprain of knee; Translations: [Sprain of unspecified site of unspecified knee, initial encounter] 06-24-2019 Episodic Substance-related disorders (20 sources) Tobacco user; Translations: [Nicotine dependence, unspecified, uncomplicated] Onset: 4 09-10-2011 Chronic Superficial injury; contusion (19 sources) Contusion of chest; Translations: [Contusion of unspecified front wall of thorax, initial encounter] Onset: 5 11-11-2019 Episodic Syncope (17 sources) Near syncope; Translations: [Syncope and collapse] 12-22-2021 Episodic Unclassified (4 sources) Percutaneous transluminal coronary angioplasty ; Translations: [Coronary angioplasty status] Onset: 3 05-14-2013 Unclassified (3 sources) Long-term drug therapy; Translations: [Other shelter (current) drug therapy] Onset: 3 06-10-2013 Unclassified (1 source) heart cath, c/p Onset: 8 06-27-2008 Unclassified (1 source) Fracture of multiple ribs due to CPR; Translations: [Fracture of multiple ribs due to CPR] Onset: 4 Unclassified (1 source) Autogenerated Problem Onset: 5 03-12-2025 Unclassified (1 source) Esophagitis, unspecified without bleeding; Translations: [Esophagitis, unspecified without bleeding] Onset: 5 Past or Other Problems Problem Classification Problem Date Documented Da te Episodic/Chronic Chronic ulcer of skin (20 sources) Pressure-induced deep tissue damage of sacral region; Translations: [Pressure ulcer, lower back] Onset: 06-11-2024 Resolved: 11-18-2024 06-11-2024 Chronic Complications of surgical procedures or medical care (6 sources) Malfunction of gastrostomy tube; Translations: [Gastrostomy malfunction] Onset: 08-10-2024 08-15-2024 Episodic Coronary atherosclerosis and other heart disease (20 sources) Stented coronary artery; Translations: [Presence of coronary angioplasty implant and graft] Onset: 06-02-2008 Episodic Comment on above: PTCA and stenting RC A 06/27/2008 at [place]; Crushing injury or internal injury (20 sources) Traumatic pneumothorax; Translations: [Traumatic pneumothorax, initial encounter] Onset: 06-04-2024 Resolved: 11-18-2024 06-04-2024 Episodic Diseases of mouth; excluding dental (20 sources) Mass of right parotid gland; Translations: [Other diseases of salivary glands] Onset: 06-04-2024 10-19-2024 Episodic Comment on above: This was an incident al finding on MRI and will need further workup following discharge from rehab. Fluid and electrolyte disorders (20 sources) Dehydration; Translations: [Dehydration] Onset: 06-15-2024 Resolved: 11-18-2024 09-23-2021 Episodic Malaise and fatigue (20 sources) Asthenia; Translations: [Weakness] Onset: 08-10-2024 01-14-2019 Episodic Nausea and vomiting (6 sources) Nausea and vomiting; Translations: [Nausea with vomiting, unspecified] Onset: 09-17-2024 08-24-2024 Episodic Nutritional deficiencies (20 sources) Malnutrition (calorie); Translations: [Moderate protein-calorie malnutrition] Onset: 06-16-2024 Resolved: 03-19-2025 06-16-2024 Chronic Other aftercare (2 sources) Other 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 terminal operator (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) drug therapy; Translations: [Other shelter (current) drug therapy] Onset: 06-10-2013 06-10-2013 Episodic Other circulatory disease (4 sources) Hypotension, unspecified; Translations: [Hypotension, unspecified] Onset: 03-01-2017 03-01-2017 Episodic Other connective tissue disease (1 source) Pain in left toe(s); Translations: [Pain in left toe(s)] Onset: 08-10-2024 Episodic Other diseases of bladder and urethra (20 sources) Lesion of bladder; Translations: [Bladder disorder, unspecified] Onset: 09-27-2011 Resolved: 11-09-2015 11-09-2015 Chronic Other ear and sense organ disorders (2 sources) Impacted cerumen, left ear; Translations: [Impacted cerumen, left ear] Onset: 12-18-2024 Episodic Other fractures (20 sources) Closed fracture of multiple right ribs; Translations: [Multiple fractures of ribs, right side, initial encounter for closed fracture] Onset: 06-15-2024 Resolved: 11-18-2024 4 Episodic Other fractures (1 source) Multiple fractures of ribs, unspecified side, initial encounter for closed fracture; Translations: [Multiple fractures of ribs, unspecified side, initial encounter for closed fracture] Onset: 08-10-2024 Episodic Other gastrointestinal disorders (20 sources) Gastrostomy present; Translations: [Gastrostomy status] Onset: 06-18-2024 Resolved: 11-18-2024 10-19-2024 Chronic Other gastrointestinal disorders (20 sources) Dysphagia; Translations: [Dysphagia, unspecified] Onset: 01-18-2022 Resolved: 11-18-2024 Episodic Other gastrointestinal disorders (3 sources) Dysphagia, unspecified; Translations: [Dysphagia, unspecified] Onset: 08-10-2024 10-02-2022 Episodic Other injuries and conditions due to external causes (20 sources) Subcutaneous emphysema; Translations: [Traumatic subcutaneous emphysema, initial encounter] Onset: 06-15-2024 Resolved: 11-18-2024 06-15-2024 Episodic Other lower respiratory disease (1 source) Dyspnea, unspecified; Translations: [Dyspnea, unspecified] Onset: 09-11-2024 Episodic Other lower respiratory disease (1 source) Shortness of breath; Translations: [Shortness of breath] Onset: 05-25-2024 Episodic Other male genital disorders (20 sources) Male erectile dysfunction, unspecified; Translations: [Impotence of organic origin] Resolved: 11-09-2015 11-09-2015 Chronic Other skin disorders (2 sources) Localized swelling, mass and lump, neck; Translations: [Localized swelling, mass and lump, neck] Onset: 12-18-2024 Episodic Other upper respiratory disease (20 sources) Allergic rhinitis due to house dust mite; Translations: [Other allergic rhinitis] Onset: 01-14-2018 Resolved: 11-18-2024 01-14-2018 Chronic Other upper respiratory disease (20 sources) Polyp of nasal cavity and/or nasal sinus; Translations: [Nasal polyp, unspecified] Onset: 11-09-2015 Resolved: 11-18-2024 11-09-2015 Episodic Pleurisy; pneumothorax; pulmonary collapse (20 sources) Right pneumothorax; Translations: [Pneumothorax, unspecified] Onset: 06-15-2024 Resolved: 11-18-2024 06-15-2024 Episodic Pneumonia (except that caused by tuberculosis or sexually transmitted disease) (20 sources) Pneumonia; Translations: [Pneumonia, unspecified organism] Onset: 06-15-2024 Resolved: 11-18-2024 Episodic Comment on above: Secondary to Klebsie lla oxytoca...This likely caused the respiratory arrest on 06/04/24 Pulmonary heart disease (20 sources) Pulmonary embolism; Translations: [Other pulmonary embolism without acute cor pulmonale] Onset: 08-11-2024 Resolved: 03-19-2025 01-14-2019 Episodic Residual codes; unclassified (3 sources) FH: Hypertension; Translations: [Family history of ischemic heart disease and other diseases of the circulatory system] 06-28-2015 Episodic Residual codes; unclassified (7 sources) Tobacco use; Translations: [Tobacco use disorder] Onset: 08-10-2024 Episodic Residual codes; unclassified (1 source) Other specified postprocedural states; Translations: [Other specified postprocedural states] Onset: 08-10-2024 Episodic Residual codes; unclassified (1 source) Personal history of other medical treatment; Translations: [Personal history of other medical treatment] Onset: 08-10-2024 Episodic Respiratory failure; insufficiency; arrest (adult) (20 sources) Hypoxemic respiratory failure; Translations: [Respiratory failure, unspecified with hypoxia] Onset: 06-15-2024 Resolved: 11-18-2024 Episodic Screening and history of mental health and substance abuse codes (20 sources) Ex-smoker; Translations: [Personal history of nicotine dependence] Onset: 06-02-2024 Resolved: 06-02-2024 Episodic Skin and subcutaneous tissue infections (7 sources) Cellulitis; Translations: [Cellulitis, unspecified] Onset: 08-10-2024 08-15-2024 Episodic Spondylosis; intervertebral disc disorders; other back problems (6 sources) Stenosis of intervertebral foramina; Translations: [Spinal stenosis, cervical region] Onset: 08-10-2024 08-15-2024 Episodic Unclassified (7 sources) Family history of ischemic heart disease and other diseases of the circulatory system; Translations: [FH: Hypertension] 06-28-2015 Episodic Unclassified (3 sources) Onset: 12-18-2024 Resolved: 03-12-2025 12-18-2024 Results Test Name Value Interpretation Reference Range Facility [facility] 04-01-2025 [facility] Telephone (INTMWS) -- CHIO DENT JR. ([id number]) 1960 M Date Time Provider Department 04/01/25 ALEXEY MAYBERRY INTMWS During your visit today, we recorded the following information about you: Malena Gilliland RN 04/01/2025 12:55 PM Signed Ely with [facility] Pre-Admission Dept calling. Pt scheduled to have surgery on 04/14/25. Ely reports she needs written clarification from Dr. Mayberry that patient did stop his course of Eliquis and that there is no instructions or plan for pt to restart it-that course of therapy has been completed. Current med list print-out is not sufficient, per Ely. Please send written note to Ely at FAX #: [phone]. MARION Esquivel Victor H, MD 04/01/2025 1:15 PM Signed Fax letter please. Jennifer Parikh LPN 04/01/2025 3:27 PM Signed Letter faxed. Jennifer Parikh LPN Allergies As of Date: 04/01/2025 Noted Allergy Reaction ASPIRIN 06/21/2010 8 - [...] ragweed (April, May and June) Date Reviewed: 03/19/2025 Reviewed by: Becca Gonzalez LPN - Fully Assessed Reason for Visit: Pre-Admission Call/Request [Other] Prescriptions as of 04/01/2025 - amoxicillin-clavulanate potassium (AUGMENTIN) 875-125 mg per tablet Take 1 tablet by mouth once daily. - pantoprazole DR (PROTONIX) 40 mg tablet Take 1 tablet by mouth once daily. - buPROPion SR (WELLBUTRIN SR) 150 mg 12 hr tablet Take 1 tablet by mouth two times a day. - QUEtiapine (SEROQUEL) 25 mg tablet Take 1 tablet by mouth daily at bedtime. - furosemide (LASIX) 40 mg tablet Take 1 tablet by mouth once daily. - oxybutynin XL (DITROPAN XL) 5 mg 24 hr tablet Take 1 tablet by mouth once daily. - acetaminophen 325 mg cap Take 2 capsules by mouth as needed for pain. - ipratropium-albuterol (DUONEB) 0.5 mg-3 mg(2.5 mg base)/3 mL nebu Inhale 3 mL as instructed every 6 hours as needed for wheezing/shortness of breath. - gabapentin (NEURONTIN) 800 mg tablet Take 1 tablet by mouth three times a day. [facility] medication. - jvzbxythyee-mlhteqowy-pkfn nter (TRELEGY ELLIPTA) 200-62.5-25 mcg inhalation powder Inhale 1 Puff as instructed once daily. [facility]. - triamcinolone acetonide (KENALOG) 0.1 % cream Apply 1 application to affected area once daily as needed. - atorvastatin (LIPITOR) 20 mg tablet Take 1 tablet by mouth daily at bedtime. - magnesium oxide (MAG-OX) 400 mg (241.3 mg magnesium) tablet Take 1 tablet by mouth once daily. - guaiFENesin (MUCINEX) 1,200 mg Ta12 Take 1 tablet by mouth as needed. - ketoconazole (NIZORAL) 2 % cream Apply to affected area once daily. - albuterol (PROVENTIL) 2.5 mg /3 mL (0.083 %) nebulizer solution Use 3 mL via nebulizer every 4 hours as needed for wheezing/shortness of breath. - montelukast (SINGULAIR) 10 mg tablet Take 1 tablet by mouth once daily. Problem List As Of Date 04/01/2025 Noted Resolved History of IL (myocardial infarction) [I25.2] 06/02/2008 03/21/2017 Hyperlipidemia [E78.5] Asthma [J45.909] COPD exacerbation (HCC) [J44.1] Former smoker [Z87.891] 06/02/2024 Hypertension [I10] Erectile dysfunction [N52.9] 11/09/2015 GERD (gastroesophageal reflux disease) [K21.9] Nasal polyposis [J33.9] 11/09/2015 11/18/2024 Hematuria [R31.9] 09/27/2011 11/09/2015 Lesion of bladder [N32.9] 09/27/2011 11/09/2015 Coronary artery disease involving [place] heart *03/21/2017 Seasonal allergic rhinitis due to fungal spores*01/14/2018 Allergic rhinitis due to dust mite [J30.89] 01/14/2018 11/18/2024 Seasonal allergic rhinitis due to pollen [J30.1]01/14/2018 Bronchiectasis with acute exacerbation (HCC) [J*07/12/2021 11/18/2024 Dysphagia [R13.10] 01/18/2022 11/18/2024 Current smoker [F17.200] 06/02/2024 Other osteoporosis without current pathological*06/02/2024 Cardiac arrest (HCC) [I46.9] 06/04/2024 10/05/2024 Acute on chronic respiratory failure with hypox*06/04/2024 11/18/2024 Traumatic pneumothorax [S27.0XXA] 06/04/2024 11/18/2024 Pressure injury of deep tissue of sacral region*06/11/2024 11/18/2024 Pneumothorax on right [J93.9] 06/15/2024 11/18/2024 Multiple closed fractures of ribs of right side*06/15/2024 11/18/2024 Respiratory arrest (HCC) [R09.2] 06/15/2024 11/18/2024 Subcutaneous emphysema [T79.7XXA] 06/15/2024 11/18/2024 Leukocytosis [D72.829] 06/15/2024 Bacterial pneumonia [J15.9] 06/15/2024 11/18/2024 Hypernatremia [E87.0] 06/15/2024 11/18/2024 Malnutrition o (more content not included)... Normal [facility] Bacteriaon 03-30-2025 Bacteria identified Cx Nom (U) Test: Urine Culture Specimen Source: Clean Catch/Voided Specimen Type: Urine Specimen Date: 03/30/2025958 Result Date: 03/31/2025922 Result Status: Final result Abnormal: No Resulting Lab: [facility] [address] [place] [address] CULTURE No growth [facility] Comment on above: Performed By: #### 6 30-4 #### MIGUEL Wilks ([id number]) [facility] ([facility]) [address] [place] [address] Blood type and Indirect anti body screen panel (Bld)on 03-30-2025 ABO group Nom (Bld) A Normal [facility] Comment on above: Performed By: #### 3 4532-2 #### MIGUEL Wilks ([id number]) [facility] ([facility]) [address] [place] [address] Blood group antibody screen Ql Negative [facility] Comment on above: Performed By: #### 3 4532-2 #### MIGUEL Wilks ([id number]) [facility] ([facility]) [address] [place] [address] D Ag Ql (Bld) Positive [facility] Comment on above: Result Comment: 2nd ABO test required. Order and Collect VERAB Performed By: #### 3 4532-2 #### MIGUEL Wilks ([id number]) [facility] ([facility]) [address] [place], [place] [id number] CBC panel Auto (Bld)on 03-30 Erythrocyte distribution width (RBC) [Ratio] 16.4 % High 11.5-14.5 [facility] Comment on above: Performed By: #### 5 8410-2 #### MIGUEL Wilks ([id number]) [facility] ([facility]) [address] [place] [address] Hematocrit (Bld) [Volume fraction] 38.7 % Low 41.0-52.0 [facility] Comment on above: Performed By: #### 5 8410-2 #### MIGUEL Wilks ([id number]) [facility] ([facility]) [address] [place] [address] 76668 Hemoglobin (Bld) [Mass/Vol] 11.6 g/dL Low 13.5-17.5 [facility] Comment on above: Performed By: #### 5 8410-2 #### MIGUEL Wilks ([id number]) [facility] ([facility]) [address] [place] [address] 89404 MCH (RBC) [Entitic mass] 25.3 pg Low 26.0-34.0 [facility] Comment on above: Performed By: #### 5 8410-2 #### MIGUEL Wilks ([id number]) [facility] ([facility]) [address] [place] [address] 29960 MCHC (RBC) [Mass/Vol] 30.0 g/dL Low 32.0-36.0 [facility] Comment on above: Performed By: #### 5 8410-2 #### MIGUEL Wilks ([id number]) [facility] ([facility]) [address] [place] [address] 05612 MCV (RBC) [Entitic vol] 85 fL Normal 80-100 [facility] Comment on above: Performed By: #### 5 8410-2 #### MIGUEL Wilks ([id number]) [facility] ([facility]) [address] [place] [address] 59418 Nucleated RBC/100 WBC (Bld) [Ratio] 0.0 /100 WBCs Normal 0.0-0.0 [facility] Comment on above: Performed By: #### 5 8410-2 #### MIGUEL Wilks ([id number]) [facility] ([facility]) [address] [place] [address] Platelets (Bld) [#/Vol] 272 x10*3/uL Normal 150-450 [facility] Comment on above: Performed By: #### 5 8410-2 #### MIGUEL Wilks ([id number]) [facility] ([facility]) [id number] [place] [address] 68559 RBC (Bld) [#/Vol] 4.58 x10*6/uL Normal 4.50-5.90 [facility] Comment on above: Performed By: #### 5 8410-2 #### MIGUEL Wilks ([id number]) [facility] ([facility]) [id number] [place] [address] 13679 WBC (Bld) [#/Vol] 8.6 x10*3/uL Normal 4.4-11.3 [facility] Comment on above: Performed By: #### 5 8410-2 #### MIGUEL Wilks ([id number]) [facility] ([facility]) [address] [place] [address] 12222 Comprehensive metabolic 2000 panelon 03-30-2025 Albumin BCP dye [Mass/Vol] 4.0 g/dL Normal 3.4-5.0 [facility] Comment on above: Performed By: #### 2 4323-8 #### MIGUEL Wilks ([id number]) [facility] ([facility]) [id number] [place] [address] 11727 ALP [Catalytic activity/Vol] 91 U/L Normal 33-136 [facility] Comment on above: Performed By: #### 2 4323-8 #### MIGUEL Wilks ([id number]) [facility] ([facility]) [address] [place] [address] 57853 ALT With P-5'-P [Catalytic activity/Vol] 11 U/L Normal 10-52 [facility] Comment on above: Result Comment: Polly ents treated with Sulfasalazine may generate falsely decreased results for ALT. Performed By: #### 2 4323-8 #### MIGUEL Wilks ([id number]) [facility] ([facility]) [address] [place] [address] Anion gap [Moles/Vol] 16 mmol/L Normal 10-20 [facility] Comment on above: Performed By: #### 2 4323-8 #### MIGUEL Wilks ([id number]) [facility] ([facility]) [address] [place] [address] AST With P-5'-P [Catalytic activity/Vol] 13 U/L Normal 9-39 [facility] Comment on above: Performed By: #### 2 4323-8 #### MIGUEL Wilks ([id number]) [facility] ([facility]) [address] [place] [address] Bilirubin [Mass/Vol] 0.8 mg/dL Normal 0.0-1.2 [facility] Comment on above: Performed By: #### 2 4323-8 #### MIGUEL Wilks ([id number]) [facility] ([facility]) [id number] [place] [address] 06668 Calcium [Mass/Vol] 8.8 mg/dL Normal 8.6-10.6 [facility] Comment on above: Performed By: #### 2 4323-8 #### MIGUEL Wilks ([id number]) [facility] ([facility]) [id number] [place] [address] 92458 Chloride [Moles/Vol] 98 mmol/L Normal 98-107 [facility] Comment on above: Performed By: #### 2 4323-8 #### MIGUEL Wilks ([id number]) [facility] ([facility]) [address] [place] [address] CO2 [Moles/Vol] 27 mmol/L Normal 21-32 [facility] Comment on above: Performed By: #### 2 4323-8 #### MIGUEL JAQUEZ L ([id number]) [facility] ([facility]) [address] [place] [address] Creatinine [Mass/Vol] 0.93 mg/dL Normal 0.50-1.30 [facility] Comment on above: Performed By: #### 2 4323-8 #### MIGUEL JAQUEZ L ([id number]) [facility] ([facility]) [id number] [place] [address] 31780 Glomerular filtration rate >90 Normal >60 [facility] Comment on above: Result Comment: Calc ulations of estimated GFR are performed using the 2020 CKD-EPI Study Refit equation without the race variable for the IDMS-Traceable creatinine methods. https://jasn.asnjournals.org/content/early//ASN.2020 505728 Performed By: #### 2 4323-8 #### MIGUEL JAQUEZ L ([id number]) [facility] ([facility]) [address] [place] [address]2477 Glucose [Mass/Vol] 99 mg/dL Normal 74-99 [facility] Comment on above: Performed By: #### 2 4323-8 #### MIGUEL JAQUEZ L ([id number]) [facility] ([facility]) [id number] [place] [address]286 Potassium [Moles/Vol] 3.7 mmol/L Normal 3.5-5.3 [facility] Comment on above: Performed By: #### 2 4323-8 #### MIGUEL JAQUEZ L ([id number]) [facility] ([facility]) [id number] [place] [address] 30596 Protein [Mass/Vol] 6.5 g/dL Normal 6.4-8.2 [facility] Comment on above: Performed By: #### 2 4323-8 #### MIGUEL JAQUEZ L ([id number]) [facility] ([facility]) [id number] [place] [address] 27187 Sodium [Moles/Vol] 137 mmol/L Normal 136-145 [facility] Comment on above: Performed By: #### 2 4323-8 #### MIGUEL RICHMOCHIDI L ([id number]) [facility] ([facility]) [id number] [place] [address] 83904 Urea nitrogen [Mass/Vol] 12 mg/dL Normal 6-23 [facility] Comment on above: Performed By: #### 2 4323-8 #### MIGUEL Wilks ([id number]) [facility] ([facility]) [address] [place] [address] 28012 PT and aPTT panel Coag (PPP) on 03-30-2025 aPTT Coag (PPP) [Time] 29 s Normal 26-36 Un [facility] Comment on above: Order Comment: The A PTT is no longer used for monitoring Unfractionated Heparin Therapy. For monitoring Heparin Therapy, use the Heparin Assay. Performed By: #### 3 4529-8 #### MIGUEL Wilks ([id number]) [facility] ([facility]) [address] [place] [address] 52960 INR Coag (PPP) [Relative time] 1.1 Normal 0.9-1.1 [facility] Comment on above: Order Comment: The A PTT is no longer used for monitoring Unfractionated Heparin Therapy. For monitoring Heparin Therapy, use the Heparin Assay. Performed By: #### 3 4529-8 #### MIGUEL Wilks ([id number]) [facility] [address] [place] [address] [phone] PT Coag (PPP) [Time] 11.7 s Normal 9.8-12.4 [facility] Comment on above: Order Comment: The A PTT is no longer used for monitoring Unfractionated Heparin Therapy. For monitoring Heparin Therapy, use the Heparin Assay. Performed By: #### 3 4529-8 #### MIGUEL Wilks ([id number]) [facility] [address] [place] [address] [phone] SP/HP.SP.Tyree 03-30-2025 SP/HP.SP.EV Normal [facility] Urinalysis complete W Reflex Culture panel (U)on 03-30-2025 Appearance (U) Clear Normal Clear [facility] Comment on above: Performed By: #### 5 8077-9 #### MIGUEL Wilks ([id number]) [facility] [address] [place] [address] [phone] Bilirubin (U) [Mass/Vol] Negative Normal NEGATIVE [facility] Comment on above: Performed By: #### 5 8077-9 #### MIGUEL Wilks ([id number]) [facility] [address] [place] [address] [phone] Color (U) Light-Yellow Normal Light-George ow, Yellow, Dark-Yello w [facility] Comment on above: Performed By: #### 5 8077-9 #### MIGUEL Wilks ([id number]) [facility] [address] [place] [address] [phone] Glucose Auto test strip (U) [Mass/Vol] Normal Normal Normal [facility] Comment on above: Performed By: #### 5 8077-9 #### MIGUEL Wilks ([id number]) [facility] [address] [place] [address] [phone] Ketones (U) [Mass/Vol] Negative [facility] Comment on above: Performed By: #### 5 8077-9 #### MIGUEL Wilks ([id number]) [facility] [address] [place] [address] [phone] Leukocyte esterase Auto test strip Ql (U) 25 Inder/uL Abnormal NEGATIVE [facility] Comment on above: Performed By: #### 5 8077-9 #### MIGUEL JAQUEZ L ([id number]) [facility] [address] [place] [address] 80164 Nitrite Auto test strip Ql (U) Negative Normal NEGATIVE [facility] Comment on above: Performed By: #### 5 8077-9 #### MIGUEL Wilks ([id number]) [facility] [address] [place] [address] [phone] pH (U) 6.5 [pH] Normal 5.0, 5.5, 6.0, 6.5, 7.0, 7.5, 8.0 [facility] Comment on above: Performed By: #### 5 8077-9 #### MIGUEL Wilks ([id number]) [facility] [address] [place] [address] [phone] Protein (U) [Mass/Vol] 10 (TRACE) Normal NEGAT CONCEPCIÓN, 10 (TRACE), 20 (TRACE) [facility] Comment on above: Performed By: #### 5 8077-9 #### MIGUEL Wilks ([id number]) [facility] [address] [place] [address] [phone] RBC (U) [#/Vol] Negative Normal NEGATIVE [facility] Comment on above: Performed By: #### 5 8077-9 #### MIGUEL Wilks ([id number]) [facility] [address] [place] [address] 50575 Specific gravity (U) [Rel density] 1.013 Normal 1.005-1.03 5 [facility] Comment on above: Performed By: #### 5 8077-9 #### MIGUEL Wilks ([id number]) [facility] [address] [place] [address] 62853 Urobilinogen (U) [Mass/Vol] Normal Normal Normal [facility] Comment on above: Performed By: #### 5 8077-9 #### MIGUEL Wilks ([id number]) [facility] [address] [place] [address] 31503 Urinalysis microscopic panel Auto Ql (U)on 03-30-2025 RBC Auto (Urine sed) [#/Area] 1-2 Normal NONE, 1-2, 3-5 [facility] Comment on above: Performed By: #### 5 3315-8 #### MIGUEL Wilks ([id number]) [facility] [address] [place] [address] 65372 WBC Auto (Urine sed) [#/Area] 1-5 Normal 1-5, NONE [facility] Comment on above: Performed By: #### 5 3315-8 #### MIGUEL Wilks ([id number]) [facility] [address] [place] [phone] Neurology Visit Reporton Neurology Visit Report Normal [facility] OT General Evaluationon 03-03 OT General Evaluation Normal [facility] OT General Evaluationon 03-03 OT General Evaluation Normal [facility] PT D/C Summary (1)on 025 PT D/C Summary (1) Normal [facility] CNOVon 03-19-2025 CNOV Office Visit (INTMWS ) -- CHIO DENT Minerva ([id number]) 1960 M Date Time Provider Department 03/19/25 10:40 AM ALEXEY MAYBERRY INTMWS During your visit today, we recorded the following information about you: Temperature Pulse Respiration Blood pressure 97.2 degrees 74/minute 14/minute 114/74 Weight Height 72.5 kg 1.651 m Alexey Mayberry MD 03/19/2025 2:45 PM Signed This note was created using [employer]. Subjective Chio Dent Jr. is a 64 year old male here with significant other. He was ambulating without assistive device. Quadriparesis resolved. Depression was controlled. COPD was stable. Parotid mass was reported benign on needle biopsy. Dr. Bob Rebolledo, ENT at [facility] will excise this, so he is on Augmentin for a few weeks. GI bleeding resolved. EGD done last month showed no findings of concern. PE was treated. He will finish apixiban at this time. [facility] as [facility] appointment with Dr. Hartman was long in coming. He was doing PT at [facility]. It was suggested he also have OT, [facility] due to residual functional deficits. Review of Systems Constitutional: Negative for fatigue and fever. Respiratory: Negative for cough, shortness of breath and wheezing. Cardiovascular: Negative for chest pain, palpitations and leg swelling. Gastrointestinal: Negative for abdominal pain and blood in stool. Musculoskeletal: Negative for gait problem. Neurological: Positive for tremors. Negative for dizziness and headaches. Psychiatric/Behavioral: Negative for dysphoric mood. 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 buPROPion SR (WELLBUTRIN SR) 150 mg 12 hr tablet Take 1 tablet by mouth two times a day. apixaban (ELIQUIS) 5 mg tab(s) Take 1 tablet by mouth two times a day. QUEtiapine (SEROQUEL) 25 mg tablet Take 1 tablet by mouth daily at bedtime. furosemide (LASIX) 40 mg tablet Take 1 tablet by mouth once daily. oxybutynin XL (DITROPAN XL) 5 mg 24 hr tablet Take 1 tablet by mouth once daily. acetaminophen 325 mg cap Take 2 capsules by mouth as needed for pain. ipratropium-albuterol (DUONEB) 0.5 mg-3 mg(2.5 mg base)/3 mL nebu Inhale 3 mL as instructed every 6 hours as needed for wheezing/shortness of breath. gabapentin (NEURONTIN) 800 mg tablet Take 1 tablet by mouth three times a day. [facility] medication. eztofdmitba-arhvbdikl-cuid nter (TRELEGY ELLIPTA) 200-62.5-25 mcg inhalation powder Inhale 1 Puff as instructed once daily. [facility]. pantoprazole DR (PROTONIX) 40 mg tablet Take 1 tablet by mouth two times a day. (Patient taking differently: Take 40 mg by mouth once daily.) triamcinolone acetonide (KENALOG) 0.1 % cream Apply 1 application to affected area once daily as needed. atorvastatin (LIPITOR) 20 mg tablet Take 1 tablet by mouth daily at bedtime. magnesium oxide (MAG-OX) 400 mg (241.3 mg magnesium) tablet Take 1 tablet by mouth once daily. guaiFENesin (MUCINEX) 1,200 mg Ta12 Take 1 tablet by mouth as needed. ketoconazole (NIZORAL) 2 % cream Apply to affected area once daily. albuterol (PROVENTIL) 2.5 mg /3 mL (0.083 %) nebulizer solution Use 3 mL via nebulizer every 4 hours as needed for wheezing/shortness of breath. montelukast (SINGULAIR) 10 mg tablet Take 1 tablet by mouth once daily. No current facility-administered medications for this visit. Objective BP 114/74 (BP Site: Right Arm, BP Position: Sitting, BP Cuff Size: Large Adult) Pulse 74 Temp 36.2 ?C (97.2 ?F) (Temporal) Resp 14 Ht 165.1 cm (5' 5) Wt 72.5 kg (159 lb 13.3 oz) SpO2 97% BMI 26.60 kg/m? Physical Exam Constitutional: General: He is not in acute distress. HENT: Head: Atraumatic. Eyes: Conjunctiva/sclera: Conjunctivae normal (more content not included)... 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 PAROTID FINE NEEDLE ASPIRATION RIGHT Reactive squamous cells , macrophages and abundant neutrophils consisted with inflamed squamous lined cyst at 1716 EDT Laboratory comment SEE COMMENT Slide(s) initially screened by MAHESH TIERNEY, CT at [facility] [address] [address] [facility] [id number] By the signature on this report, the individual or group listed as making the Final Interpretation/Diagnosis certifies that they have reviewed this case. RESIDENT REVIEW Yesica De La Cruz MD Path report.relevant Hx right parotid mass Path report.gross observation SEE COMMENT A. PAROTID FINE NEEDLE ASPIRATION RIGHT. Received 2 direct smears (2 spray-fixed) and 30 ml horne cloudy needle rinse in Cytolyt with particles. Laboratory comment SEE COMMENT A1 Slides Only (No Block) A1-1 Pap Stain Smear NGYN A1-2 Pap Stain Smear NGYN A2 Cell Block A2-1 H&E Normal [facility] Gastroenterology Visit Repor ton 02-24-2025 Gastroenterology Visit Report Normal [facility] Inital Evaluation (1) - PTon 02-23-2025 Inital Evaluation (1) - PT Normal [facility] CNPNon 02-10-2025 CNPN Telephone (INTMWS) -- CHIO DENT JR. ([id number]) 1960 M Date Time Provider Department 02/10/25 ALEXEY MAYBERRY INTMWS During your visit today, we recorded the following information about you: Lola Scott RN 02/10/2025 12:05 PM Signed Ashtyn SO from [facility] calls and states that Home health services are discharging patient from services this week. Home Health is recommending that patient have outpatient therapy at [facility] for physical therapy, occupational, and speech therapy. Patient is agreeable to this. Please place orders and fax to [facility] No call back needed. Lloa Scott RN ' Alexey Mayberry MD 02/10/2025 12:38 PM Signed ASSESSMENT/PLAN: 1. Quadriparesis (HCC) - ICD9: 344.00, ICD10: G82.50 (primary diagnosis) - CONSULT TO PHYSICAL THERAPY 2. 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) - ICD9: 348.1, 427.5, ICD10: G93.1, I46.9 - CONSULT TO PHYSICAL THERAPY MD Jl Samson Helen E, LPN 02/10/2025 4:52 PM Signed Order faxed to [facility]. Jennifer Parikh LPN Allergies As of Date: 02/10/2025 Noted Allergy Reaction ASPIRIN 06/21/2010 8 - [...] ragweed (April, May and June) Date Reviewed: 02/05/2025 Reviewed by: Mitzi Recio MA - Fully Assessed Reason for Visit: Home Health Update [Other] Primary Visit Diagnosis:Quadriparesis (HCC) [G82.50] Other Visit Diagnosis: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) [G93.1, I46.9] Order(s):CONSULT TO PHYSICAL THERAPY [9032] Order #: [id number]: 1 FUTURE Prescriptions as of 02/10/2025 - QUEtiapine (SEROQUEL) 25 mg tablet Take 1 tablet by mouth daily at bedtime. - furosemide (LASIX) 40 mg tablet Take 1 tablet by mouth once daily. - oxybutynin XL (DITROPAN XL) 5 mg 24 hr tablet Take 1 tablet by mouth once daily. - acetaminophen 325 mg cap Take 2 capsules by mouth as needed for pain. - apixaban (ELIQUIS) 5 mg tab(s) Take 1 tablet by mouth two times a day. - ipratropium-albuterol (DUONEB) 0.5 mg-3 mg(2.5 mg base)/3 mL nebu Inhale 3 mL as instructed every 6 hours as needed for wheezing/shortness of breath. - gabapentin (NEURONTIN) 800 mg tablet Take 1 tablet by mouth three times a day. [facility] medication. - buPROPion SR (WELLBUTRIN SR) 150 mg 12 hr tablet Take 1 tablet by mouth two times a day. - fxfyelktukl-hxlunxaii-rqag nter (TRELEGY ELLIPTA) 200-62.5-25 mcg inhalation powder Inhale 1 Puff as instructed once daily. [facility]. - pantoprazole DR (PROTONIX) 40 mg tablet Take 1 tablet by mouth two times a day. - triamcinolone acetonide (KENALOG) 0.1 % cream Apply 1 application to affected area once daily as needed. - atorvastatin (LIPITOR) 20 mg tablet Take 1 tablet by mouth daily at bedtime. - magnesium oxide (MAG-OX) 400 mg (241.3 mg magnesium) tablet Take 1 tablet by mouth once daily. - guaiFENesin (MUCINEX) 1,200 mg Ta12 Take 1 tablet by mouth as needed. - ketoconazole (NIZORAL) 2 % cream Apply to affected area once daily. - albuterol (PROVENTIL) 2.5 mg /3 mL (0.083 %) nebulizer solution Use 3 mL via nebulizer every 4 hours as needed for wheezing/shortness of breath. - montelukast (SINGULAIR) 10 mg tablet Take 1 tablet by mouth once daily. Problem List As Of Date 02/10/2025 Noted Resolved History of IL (myocardial infarction) [I25.2] 06/02/2008 03/21/2017 Hyperlipidemia [E78.5] Asthma [J45.909] COPD exacerbation (HCC) [J44.1] Former smoker [Z87.891] 06/02/2024 Hypertension [I10] Erectile dysfunction [N52.9] 11/09/2015 GERD (gastroesophageal reflux disease) [K21.9] 11/09/2015 Nasal polyposis [J33.9] 11/09/2015 11/18/2024 Hematuria [R31.9] 09/27/2011 11/09/2015 Lesion of bladder [N32.9] 09/27/2011 11/09/2015 Coronary artery disease involving [place] heart *03/21/2017 Seasonal allergic rhinitis due to fungal spores*01/14/2018 Allergic rhinitis due to dust mite [J30.89] 01/14/2018 11/18/2024 Seasonal allergic rhinitis due to pollen [J30.1]01/14/2018 Bronchiectasis with acute exacerbation (HCC) [J*07/12/2021 11/18/2024 Dysphagia [R13.10] 01/18/2022 11/18/2024 Current smoker [F17.200] 06/02/2024 Other osteoporosis without current pathological*06/02/2024 Cardiac arrest (HCC) [I46.9] 06/04/2024 10/05/2024 Acute on chronic respiratory failure with hypox*06/04/2024 11/18/2024 Traumatic pneumothorax [S27.0XXA] 06/04/2024 11/18/2024 Pressure injury of deep tissue of sacral region*06/11/202411/18 (more content not included)... Normal [facility] EGD Reporton 02-09-2025 EGD Report [facility] Immunohistochemical Stainson 02-09-2025 Immunohistochemical Stains [facility] Comment on above: Performed By: #### P [facility] ####[facility] [address], [address] MR/POSTOP.ANEon 02-09-2025 MR/POSTOP.ANE [facility] MR/HBNHJHFW7am 02-09-2025 MR/POSTOPAN2 [facility] CNOVon 02-05-2025 CNOV Office Visit (INTMWS ) -- CHIO DENT JR. ([id number]) 1960 M Date Time Provider Department 02/05/25 4:40 PM ALEXEY MAYBERRY INTMWS During your visit today, we recorded the following information about you: Pulse Blood pressure Weight Height 82/minute 110/74 72.7 kg 1.651 m Alexey Mayberry MD 02/07/2025 12:28 AM Signed This note was created using [employer]. Subjective Patient presents with: Urinary Incontinence Chio Dent Jr. is a 64 year old male was here with significant other. She noted a stronger odor with his urine and was concerned about urinary tract infection. Furthermore, he has become increasingly incontinence, with urgency for the past 2 or more weeks. He also fell trying to go biking yesterday. He complained of rib pain and right hip pain. Review of Systems Constitutional: Negative for chills and fever. Gastrointestinal: Negative for abdominal pain. Genitourinary: Negative for dysuria, flank pain and hematuria. 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 apixaban (ELIQUIS) 5 mg tab(s) Take 1 tablet by mouth two times a day. ipratropium-albuterol (DUONEB) 0.5 mg-3 mg(2.5 mg base)/3 mL nebu Inhale 3 mL as instructed every 6 hours as needed for wheezing/shortness of breath. gabapentin (NEURONTIN) 800 mg tablet Take 1 tablet by mouth three times a day. [facility] medication. buPROPion SR (WELLBUTRIN SR) 150 mg 12 hr tablet Take 1 tablet by mouth two times a day. rqpoekojdxu-doauobqsr-bloy nter (TRELEGY ELLIPTA) 200-62.5-25 mcg inhalation powder Inhale 1 Puff as instructed once daily. [facility]. pantoprazole DR (PROTONIX) 40 mg tablet Take 1 tablet by mouth two times a day. triamcinolone acetonide (KENALOG) 0.1 % cream Apply 1 application to affected area once daily as needed. atorvastatin (LIPITOR) 20 mg tablet Take 1 tablet by mouth daily at bedtime. magnesium oxide (MAG-OX) 400 mg (241.3 mg magnesium) tablet Take 1 tablet by mouth once daily. guaiFENesin (MUCINEX) 1,200 mg Ta12 Take 1 tablet by mouth as needed. ketoconazole (NIZORAL) 2 % cream Apply to affected area once daily. albuterol (PROVENTIL) 2.5 mg /3 mL (0.083 %) nebulizer solution Use 3 mL via nebulizer every 4 hours as needed for wheezing/shortness of breath. montelukast (SINGULAIR) 10 mg tablet Take 1 tablet by mouth once daily. QUEtiapine (SEROQUEL) 25 mg tablet Take 1 tablet by mouth daily at bedtime. furosemide (LASIX) 40 mg tablet Take 1 tablet by mouth once daily. oxybutynin XL (DITROPAN XL) 5 mg 24 hr tablet Take 1 tablet by mouth once daily. No current facility-administered medications for this visit. Objective BP 110/74 Pulse 82 Ht 165.1 cm (5' 5) Wt 72.7 kg (160 lb 4.4 oz) SpO2 98% BMI 26.67 kg/m? Physical Exam Constitutional: General: He is not in acute distress. Appearance: He is not ill-appearing. Cardiovascular: Heart sounds: Normal heart sounds. Pulmonary: Breath sounds: Normal breath sounds. Chest: Chest wall: Tenderness present. No deformity or crepitus. Abdominal: Palpations: Abdomen is soft. Tenderness: There is no abdominal tenderness. There is no right CVA tenderness or left CVA tenderness. Musculoskeletal: General: No tenderness or deformity. Skin: Capillary Refill: Capillary refill takes more than 3 seconds. Neurological: General: No focal deficit present. UA negative. Assessment and Plan 1. Urge incontinence of urine - ICD9: 788.31, ICD10: N39.41 (primary diagnosis) - UA DIP, URINE (POC) - OXYBUTYNIN CHLORIDE ER 5 MG TABLET,EXTENDED RELEASE 24 HR Discussed medication dosage, usage, goals of therapy, and side effects. 2. Lower urinary tract symptoms - ICD9: 788.99, ICD10: R39.9 - UA DIP, URINE (POC) 3. Rib contusion, right, initial encounter - ICD9: 922.1, ICD10: S20.211A Improving. 4. Major depressive disorder with psychotic features (HCC) - ICD9: 296.24, ICD10: F32.3 Refilled. - QUETIAPINE 25 MG TABLET 5. Primary hypertension - ICD9: 401.9, ICD10: I10 - Controlled - Continue current medications - FUROSEMIDE 40 MG TABLET Alexey Mayberry MD Allergies As of Date: 02/05/2025 Noted Allergy Reaction ASPIRIN 06/21/2010 8 - GI (more content not included)... Normal [facility] MR/PAT.ANEon 02-05-2025 MR/PAT.ANE Normal [facility] UA DIP, URINE (POC)on 2024 BILIRUBIN UA (POCT) Negative Negative [facility] CLARITY UA (POCT) Clear [facility] COLOR UA (POCT) Yellow [facility] GLUCOSE UA (POCT) Negative Negative mg/dL [facility] Hemoglobin Ql (U) Negative Negative [facility] Interpretation and review of laboratory results Abnormal [facility] KETONE UA (POCT) Negative Negative mg/dL [facility] LEUKOCYTES UA (POCT) Negative Negative [facility] NITRITE UA (POCT) Negative Negative [facility] PH UA (POCT) 7 4.5 - 8.0 [facility] Protein Ql (U) Negative Negative mg/dL [facility] SPECIFIC GRAVITY UA (POCT) <=1.005 Abnormal 1.005 - 1.030 [facility] UROBILINOGEN UA (POCT) 0.2 Aviva l E.U./dL [facility] Location:[facility], [address] [place] [address], [id number] [place] [address] POINT OF CARE [facility] Pulmonary Visit Reporton Pulmonary Visit Report Normal [facility] Low Dose CT Lung Screeningon 01-02-[address] Lung Screening Normal [facility] CNPNon 12-23-2024 CNPN Telephone (HNQ) -- CHIO DENT JR. ([id number]) 1960 Date Time Provider Department 12/23/24 GODFREY STEEL During your visit today, we recorded the following information about you: Makenna Moura 12/23/2024 12:23 PM Signed Left and message for pt to call and schedule with Dr. Steel for FNA of right parotid mass - faxed referral. Allergies As of Date: 12/23/2024 Noted Allergy Reaction ASPIRIN 06/21/2010 8 - [...] ragweed (April, May and June) Date Reviewed: 12/09/2024 Reviewed by: Jennifer Parikh LPN - Fully Assessed Prescriptions as of 12/23/2024 - acetaminophen 325 mg cap Take 2 capsules by mouth as needed for pain. - apixaban (ELIQUIS) 5 mg tab(s) Take 1 tablet by mouth two times a day. - QUEtiapine (SEROQUEL) 25 mg tablet Take 1 tablet by mouth daily at bedtime. - ipratropium-albuterol (DUONEB) 0.5 mg-3 mg(2.5 mg base)/3 mL nebu Inhale 3 mL as instructed every 6 hours as needed for wheezing/shortness of breath. - gabapentin (NEURONTIN) 800 mg tablet Take 1 tablet by mouth three times a day. [facility] medication. - buPROPion SR (WELLBUTRIN SR) 150 mg 12 hr tablet Take 1 tablet by mouth two times a day. - cpeqxlgoziw-kodybrbjc-iuqv nter (TRELEGY ELLIPTA) 200-62.5-25 mcg inhalation powder Inhale 1 Puff as instructed once daily. [facility]. - pantoprazole DR (PROTONIX) 40 mg tablet Take 1 tablet by mouth two times a day. - triamcinolone acetonide (KENALOG) 0.1 % cream Apply 1 application to affected area once daily as needed. - atorvastatin (LIPITOR) 20 mg tablet Take 1 tablet by mouth daily at bedtime. - magnesium oxide (MAG-OX) 400 mg (241.3 mg magnesium) tablet Take 1 tablet by mouth once daily. - guaiFENesin (MUCINEX) 1,200 mg Ta12 Take 1 tablet by mouth as needed. - ketoconazole (NIZORAL) 2 % cream Apply to affected area once daily. - furosemide (LASIX) 40 mg tablet Take 1 tablet by mouth once daily. - albuterol (PROVENTIL) 2.5 mg /3 mL (0.083 %) nebulizer solution Use 3 mL via nebulizer every 4 hours as needed for wheezing/shortness of breath. - montelukast (SINGULAIR) 10 mg tablet Take 1 tablet by mouth once daily. Problem List As Of Date 12/23/2024 Noted Resolved History of [place] (myocardial infarction) [I25.2] 06/02/2008 03/21/2017 Hyperlipidemia [E78.5] Asthma [J45.909] COPD exacerbation (HCC) [J44.1] Former smoker [Z87.891] 06/02/2024 Hypertension [I10] Erectile dysfunction [N52.9] 11/09/2015 GERD (gastroesophageal reflux disease) [K21.9] 11/09/2015 Nasal polyposis [J33.9] 11/09/2015 11/18/2024 Hematuria [R31.9] 09/27/2011 11/09/2015 Lesion of bladder [N32.9] 09/27/2011 11/09/2015 Coronary artery disease involving [place] heart *03/21/2017 Seasonal allergic rhinitis due to fungal spores*01/14/2018 Allergic rhinitis due to dust mite [J30.89] 01/14/2018 11/18/2024 Seasonal allergic rhinitis due to pollen [J30.1]01/14/2018 Bronchiectasis with acute exacerbation (HCC) [J*07/12/2021 11/18/2024 Dysphagia [R13.10] 01/18/2022 11/18/2024 Current smoker [F17.200] 06/02/2024 Other osteoporosis without current pathological*06/02/2024 Cardiac arrest (HCC) [I46.9] 06/04/2024 10/05/2024 Acute on chronic respiratory failure with hypox*06/04/2024 11/18/2024 Traumatic pneumothorax [S27.0XXA] 06/04/2024 11/18/2024 Pressure injury of deep tissue of sacral region*06/11/2024 11/18/2024 Pneumothorax on right [J93.9] 06/15/2024 11/18/2024 Multiple closed fractures of ribs of right side*06/15/2024 11/18/2024 Respiratory arrest (HCC) [R09.2] 06/15/2024 11/18/2024 Subcutaneous emphysema [T79.7XXA] 06/15/2024 11/18/2024 Leukocytosis [D72.829] 06/15/2024 Bacterial pneumonia [J15.9] 06/15/2024 11/18/2024 Hypernatremia [E87.0] 06/15/2024 11/18/2024 Malnutrition of moderate degree (HCC) [E44.0] 06/16/2024 Subarachnoid hemorrhage (HCC) [I60.9] 06/17/2024 11/18/2024 Quadriparesis (HCC) [G82.50] 06/18/2024 Abnormal brain MRI [R90.89] 06/18/2024 Tracheostomy status (HCC) [Z93.0] 06/18/2024 11/18/2024 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*06/04/2024 Mass of right parotid gland [K11.8] 06/04/2024 Major depressive disorder with psychotic featur*07/17/2024 Pulmonary embolism (HCC) [I26.99] 08/11/2024 PEG (percutaneous endoscopic gastrostomy) statu*06/18/2024 11/18/2024 Gastrointestinal hemorrhage [K92.2] 11/06/2024 Encounter Status:Closed by MAKENNA MOURA on 12/23/24 Normal [facility] 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 PAROTID, RIGHT, FINE NEEDLE ASPIRATION, CYTOLOGY AND CELL BLOCK: -- Non diagnostic specimen due to insufficient cellularity. -- Deeper levels from the cell block evaluated. at 1431 EDT Laboratory comment SEE COMMENT Slide(s) initially screened by PIPO Bazan at [facility] [id number] [facility] [id number] By the signature on this report, the individual or group listed as making the Final Interpretation/Diagnosis certifies that they have reviewed this case. Path report.relevant Hx right parotid mass Path report.gross observation SEE COMMENT A. PAROTID FINE NEEDLE ASPIRATION RIGHT. Received 2 direct smears (0 air-dried Diff-Quik and 2 spray-fixed) and 30 ml colorless clear needle rinse in Cytolyt with scant particles. Laboratory comment SEE COMMENT A1 Slides Only (No Block) A1-1 Pap Stain Smear NGYN A1-2 Pap Stain Smear NGYN A2 Cell Block A2-1 H&E A2-2 RECUT A2-3 LOG RECUT A2-4 RECUT A2-5 LOG RECUT A2-6 RECUT A2-7 LOG RECUT Normal [facility] CNOVon 12-09-2024 CNOV Office Visit (INTMWS ) -- CHIO DENT JR. ([id number]) 1960 M Date Time Provider Department 12/09/24 10:40 AM ALEXEY MAYBERRY IN[facility] During your visit today, we recorded the following information about you: Pulse Respiration Blood pressure Weight 65/minute 18/minute 122/64 71.3 kg Alexey Mayberry MD 12/09/2024 1:46 PM Signed This note was created using NoteWriter. Subjective Patient presents with: 4 week follow-up Chio Dent Jr. is a 64 year old male here with his significant other. He had been out of lorazepam and his tremors were unchanged. His mood and sleep was much better on quetiapine. He was scheduled to see Dr. Hartman for neurology but not until March. His COPD was much better on Trelegy, and partner indicated he has used his nebulizer only 3 times in the past week. He saw GI and an EGD was planned There was no consistent hyperglycemia consistent with diabetes mellitus. His recent chest xray was negative. His mobility was improved. Review of Systems Constitutional: Negative for chills and fever. Respiratory: Positive for cough. Negative for shortness of breath and wheezing. Cardiovascular: Negative for chest pain, palpitations and leg swelling. Genitourinary: Negative for dysuria. Neurological: Positive for tremors. Negative for dizziness and headaches. Psychiatric/Behavioral: Negative for confusion and dysphoric mood. The patient is not nervous/anxious. 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 apixaban (ELIQUIS) 5 mg tab(s) Take 1 tablet by mouth two times a day. LORazepam (ATIVAN) 0.5 mg Take 1 tablet by mouth three times a day as needed (anxiety) for up to 30 days. QUEtiapine (SEROQUEL) 25 mg tablet Take 1 tablet by mouth daily at bedtime. ipratropium-albuterol (DUONEB) 0.5 mg-3 mg(2.5 mg base)/3 mL nebu Inhale 3 mL as instructed every 6 hours as needed for wheezing/shortness of breath. gabapentin (NEURONTIN) 800 mg tablet Take 1 tablet by mouth three times a day. VA medication. buPROPion SR (WELLBUTRIN SR) 150 mg 12 hr tablet Take 1 tablet by mouth two times a day. nkewmyamhlp-ymrypkcsq-vnxw nter (TRELEGY ELLIPTA) 200-62.5-25 mcg inhalation powder Inhale 1 Puff as instructed once daily. [facility]. pantoprazole DR (PROTONIX) 40 mg tablet Take 1 tablet by mouth two times a day. triamcinolone acetonide (KENALOG) 0.1 % cream Apply 1 application to affected area once daily as needed. atorvastatin (LIPITOR) 20 mg tablet Take 1 tablet by mouth daily at bedtime. magnesium oxide (MAG-OX) 400 mg (241.3 mg magnesium) tablet Take 1 tablet by mouth once daily. guaiFENesin (MUCINEX) 1,200 mg Ta12 Take 1 tablet by mouth as needed. ketoconazole (NIZORAL) 2 % cream Apply to affected area once daily. furosemide (LASIX) 40 mg tablet Take 1 tablet by mouth once daily. albuterol (PROVENTIL) 2.5 mg /3 mL (0.083 %) nebulizer solution Use 3 mL via nebulizer every 4 hours as needed for wheezing/shortness of breath. montelukast (SINGULAIR) 10 mg tablet Take 1 tablet by mouth once daily. glucagon 1 mg/mL injection Inject 1 mg intramuscularly as needed. (Patient not taking: Reported on 12/09/2024) polyethylene glycol 3350 17 gram packet Take 1 Packet by mouth two times a day. Dissolve dose in 4 - 8 ounces of liquid and take as directed. (Patient not taking: Reported on 12/09/2024) No current facility-administered medications for this visit. Objective BP 122/64 (BP Site: Right Arm, BP Position: Sitting, BP Cuff Size: Large Adult) Pulse (!) 4 Resp 18 Wt 71.3 kg (157 lb 3 oz) SpO2 98% BMI 26.16 kg/m? Physical Exam Constitutional: General: He is not in acute distress. Appearance: He is not ill-appearing or pearl (more content not included)... Normal [facility] Basic metabolic 2000 panelon 12-08-2024 Anion gap [Moles/Vol] 13 mmol/L Normal 8-15 [facility] Comment on above: Order Comment: Speci men Type: BLOOD SPECIMENOrdering Facility: [facility] Address: [address] [place] [address] Performed By: #### 2 4321-2 ####[facility] LABCLIA [id number] [address] [address] [place] Calcium [Mass/Vol] 9.4 mg/dL Normal 8.5-10.2 [facility] Comment on above: Order Comment: Speci men Type: BLOOD SPECIMENOrdering Facility: [facility] Address: [address] [place] [address] Performed By: #### 2 4321-2 ####[facility] LABCLIA [id number] [address] [address] [place] Chloride [Moles/Vol] 104 mmol/L Normal 98-107 [facility] Comment on above: Order Comment: Speci men Type: BLOOD SPECIMENOrdering Facility: [facility] Address: [address] [place], [place] [address] Performed By: #### 2 4321-2 ####[facility] LABCLIA [id number] [address] [address] [place] CO2 [Moles/Vol] 24 mmol/L Normal 22-30 [facility] Comment on above: Order Comment: Speci men Type: BLOOD SPECIMENOrdering Facility: [facility] Address: [address] [place], [place] [address] Performed By: #### 2 4321-2 ####[facility] LABCLIA [id number] [address] [address] [place] Creatinine [Mass/Vol] 1.03 mg/dL Normal 0.73-1.22 [facility] Comment on above: Order Comment: Lele ying Type: BLOOD SPECIMENOrdering Facility: [facility] Address: [address] [place] [address] Performed By: #### 2 4321-2 ####[facility] LABIA [id number] [place] [address] [place] Creatinine and Glomerular filtration rate.predicted panel (S/P/Bld) 82 mL/min/1.73m??? Normal >=60 [facility] Comment on above: Order Comment: Lele ying Type: BLOOD SPECIMENOrdering Facility: [facility] Address: [address] [place] [address] Result Comment: Aury mated Glomerular Filtration Rate (eGFR) is calculated using the 2020 CKD-EPI creatinine equation. This equation utilizes serum creatinine, sex, and age as parameters. The creatinine assay has traceable calibration to isotope dilution-mass spectrometry. Refer to KDIGO guidelines for clinical interpretation. In patients with unstable renal function, e.g. those with acute kidney injury, the eGFR may not accurately reflect actual GFR. Performed By: #### 2 4321-2 ####[facility] LABIA [id number] [place] [address] [place] Glucose [Mass/Vol] 84 mg/dL Normal 74-99 [facility] Comment on above: Order Comment: Lele ying Type: BLOOD SPECIMENOrdering Facility: [facility] Address: [address] [place] [address] Result Comment: The [place] Diabetes Association (ADA) provides guidance for cutoff values for fasting glucose and random glucose. The ADA defines fasting as no caloric intake for at least 8 hours. Fasting plasma glucose results between 100 to 125 mg/dL indicate increased risk for diabetes (prediabetes). Fasting plasma glucose results greater than or equal to 126 mg/dL meet the criteria for diagnosis of diabetes. In the absence of unequivocal hyperglycemia, results should be confirmed by repeat testing. In a patient with classic symptoms of hyperglycemia or hyperglycemic crisis, random plasma glucose results greater than or equal to 200 mg/dL meet the criteria for diagnosis of diabetes. Reference: Standards of Medical Care in Diabetes 2016, [place] [employer] Association. Diabetes Care. 2016.39(Suppl 1). Performed By: #### 2 4321-2 ####[facility] LABCLIA [id number] [address] [address] [place] Potassium [Moles/Vol] 4.3 mmol/L Normal 3.7-5.1 [facility] Comment on above: Order Comment: Speci men Type: BLOOD SPECIMENOrdering Facility: [facility] Address: [address] [place] [address] Performed By: #### 2 4321-2 ####[facility] LABCLIA [id number] [place] [id number] [place] Sodium [Moles/Vol] 141 mmol/L Normal 136-144 [facility] Comment on above: Order Comment: Speci men Type: BLOOD SPECIMENOrdering Facility: [facility] Address: [address] [place] [address] Performed By: #### 2 4321-2 ####[facility] LABCLIA [id number] [place] [id number] [place] Urea nitrogen [Mass/Vol] 10 mg/dL Normal 9-24 [facility] Comment on above: Order Comment: Speci men Type: BLOOD SPECIMENOrdering Facility: [facility] Address: [address] [place] [address] Performed By: #### 2 4321-2 ####[facility] LABCLIA [id number] [address] [address] [place] CBC panel Auto (Bld)on 12-08 Erythrocyte distribution width (RBC) [Ratio] 14.9 % Normal 11.5-15.0 [facility] Comment on above: Order Comment: Speci men Type: BLOOD SPECIMENOrdering Facility: [facility] Address: [address] [place] [address] Performed By: #### 5 8410-2 ####[facility] LABCLIA [id number] [place] [address] [place] Hematocrit (Bld) [Volume fraction] 41.2 % Normal 39.0-51.0 [facility] Comment on above: Order Comment: Speci men Type: BLOOD SPECIMENOrdering Facility: [facility] Address: [address] [place] [address] Performed By: #### 5 8410-2 ####[facility] LABIA [id number] [place] [address] [place] Hemoglobin (Bld) [Mass/Vol] 12.6 g/dL Low 13.0-17.0 [facility] Comment on above: Order Comment: Speci men Type: BLOOD SPECIMENOrdering Facility: [facility] Address: [address] [place] [address] Performed By: #### 5 8410-2 ####[facility] LABIA [id number] [place] [address] [place] MCH (RBC) [Entitic mass] 25.8 pg Low 26.0-34.0 [facility] Comment on above: Order Comment: Speci men Type: BLOOD SPECIMENOrdering Facility: [facility] Address: [address] [place] [address] Performed By: #### 5 8410-2 ####[facility] LABIA [id number] [place] [address] [place] MCHC (RBC) [Mass/Vol] 30.6 g/dL Normal 30.5-36.0 [facility] Comment on above: Order Comment: Speci men Type: BLOOD SPECIMENOrdering Facility: [facility] Address: [address] [place] [address] Performed By: #### 5 8410-2 ####[facility] LABCLIA [id number] [place] [address] [place] MCV (RBC) [Entitic vol] 84.4 fL Normal 80.0-100.0 [facility] Comment on above: Order Comment: Speci men Type: BLOOD SPECIMENOrdering Facility: [facility] Address: [address] [place] [address] Performed By: #### 5 8410-2 ####[facility] LABCLIA [id number] [place] [address] [place] Nucleated RBC (Bld) [#/Vol] 10*3/uL Normal <0.01 [facility] Comment on above: Order Comment: Speci men Type: BLOOD SPECIMENOrdering Facility: [facility] Address: [address] [place] [address] Performed By: #### 5 8410-2 ####[facility] LABIA [id number] [place] [address] [place] Platelet mean volume (Bld) [Entitic vol] 10.1 fL Normal 9.0-12.7 [facility] Comment on above: Order Comment: Speci men Type: BLOOD SPECIMENOrdering Facility: [facility] Address: [address] [place] [address] Performed By: #### 5 8410-2 ####[facility] LABIA [id number] [place] [address] [place] Platelets (Bld) [#/Vol] 315 10*3/uL Normal 150-400 [facility] Comment on above: Order Comment: Speci men Type: BLOOD SPECIMENOrdering Facility: [facility] Address: [address] [place] [address] Performed By: #### 5 8410-2 ####[facility] LABIA [id number] [place] [address] [place] RBC (Bld) [#/Vol] 4.88 10*6/uL Normal 4.20-6.00 [facility] Comment on above: Order Comment: Speci men Type: BLOOD SPECIMENOrdering Facility: [facility] Address: [address] [place] [address] Performed By: #### 5 8410-2 ####[facility] LABCLIA [id number] [place] [id number] [place] WBC (Bld) [#/Vol] 8.04 10*3/uL Normal 3.70-11.00 [facility] Comment on above: Order Comment: Speci men Type: BLOOD SPECIMENOrdering Facility: [facility] Address: [address] [facility] [address] [place] [id number] Performed By: #### 5 8410-2 ####[facility] LABCLIA [id number] [place] [id number] [place] Gastroenterology Visit Repor ton 11-19-2024 Gastroenterology Visit Report Normal [facility] CNOVon 11-18-2024 CNOV Office Visit (INTMWS ) -- CHIO DENT JR. ([id number]) 1960 M Date Time Provider Department 11/18/24 11:20 AM ALEXEY MAYBERRY IN[facility] During your visit today, we recorded the following information about you: Temperature Pulse Respiration Blood pressure 97 degrees 92/minute 18/minute 110/78 Weight 67.7 kg Alexey Mayberry MD 11/18/2024 2:06 PM Signed This note was created using LegalGururiter. Subjective Patient presents with: Fatigue Cough Shortness of Breath Chio Dent Jr. is a 64 year old male was here with his significant other. He was noted to be more fatigued, more dyspneic, and with more cough the past few days. No fever was noted. We discontinued quetiapine and while he was more alert today, he was reported as having episodes of depression, moodiness, and irritability. He was also noted to be tremulous. Lorazepam was taken for tremors but this was prescribed for anxiety. Significant other requested referral to Dr. Doreen Hartman for neurology. His medications needed renewed. He just saw [facility], and [facility]. Review of Systems Constitutional: Negative for chills, diaphoresis and fever. HENT: Negative for congestion and sore throat. Respiratory: Positive for cough, shortness of breath and wheezing. Cardiovascular: Negative for chest pain, palpitations and leg swelling. Gastrointestinal: Negative for abdominal pain, constipation and diarrhea. Genitourinary: Negative for difficulty urinating. Musculoskeletal: Positive for back pain. Neurological: Negative for dizziness and headaches. Psychiatric/Behavioral: Positive for dysphoric mood. 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 atorvastatin (LIPITOR) 20 mg tablet Take 1 tablet by mouth daily at bedtime. magnesium oxide (MAG-OX) 400 mg (241.3 mg magnesium) tablet Take 1 tablet by mouth once daily. guaiFENesin (MUCINEX) 1,200 mg Ta12 Take 1 tablet by mouth as needed. ketoconazole (NIZORAL) 2 % cream Apply to affected area once daily. furosemide (LASIX) 40 mg tablet Take 1 tablet by mouth once daily. albuterol (PROVENTIL) 2.5 mg /3 mL (0.083 %) nebulizer solution Use 3 mL via nebulizer every 4 hours as needed for wheezing/shortness of breath. glucagon 1 mg/mL injection Inject 1 mg intramuscularly as needed. polyethylene glycol 3350 17 gram packet Take 1 Packet by mouth two times a day. Dissolve dose in 4 - 8 ounces of liquid and take as directed. montelukast (SINGULAIR) 10 mg tablet Take 1 tablet by mouth once daily. apixaban (ELIQUIS) 5 mg tab(s) Take 1 tablet by mouth two times a day. LORazepam (ATIVAN) 0.5 mg Take 1 tablet by mouth three times a day as needed (anxiety) for up to 30 days. QUEtiapine (SEROQUEL) 25 mg tablet Take 1 tablet by mouth daily at bedtime. ipratropium-albuterol (DUONEB) 0.5 mg-3 mg(2.5 mg base)/3 mL nebu Inhale 3 mL as instructed every 6 hours as needed for wheezing/shortness of breath. gabapentin (NEURONTIN) 800 mg tablet Take 1 tablet by mouth three times a day. VA medication. buPROPion SR (WELLBUTRIN SR) 150 mg 12 hr tablet Take 1 tablet by mouth two times a day. tgrgxvjmwpa-xrqkiwvto-zasx nter (TRELEGY ELLIPTA) 200-62.5-25 mcg inhalation powder Inhale 1 Puff as instructed once daily. [facility]. pantoprazole DR (PROTONIX) 40 mg tablet Take 1 tablet by mouth two times a day. predniSONE (DELTASONE) 20 mg tablet Take 1 tablet by mouth once daily for 5 days. triamcinolone acetonide (KENALOG) 0.1 % cream Apply 1 application to affected area once daily as needed. No current facility-administered medications for this visit. Objective BP 110/78 (BP Site: Left Arm, BP Position: Sitting, BP Cuff Size: Large A (more content not included)... Normal [facility] XR CHEST 2V FRONTAL/LATon XR CHEST 2V FRONTAL/LAT * * *Final Repor t* * * DATE OF EXAM: Nov 18 2024 12:32PM WOX [id number] - XR CHEST 2V FRONTAL/LAT / PROCEDURE REASON: COPD exacerbation (HCC) * * * * Physician Interpretation * * * * EXAMINATION: CHEST RADIOGRAPH (2 VIEW FRONTAL and LATERAL) CLINICAL HISTORY: COPD exacerbation (HCC) MQ: XC2_6 EXAM DATE/TIME: 11/18/2024 12:32 PM COMPARISON: Chest x-ray on 11/06/2024 RESULT: Lines, tubes, and devices: None. Lungs and pleura: No consolidation. No lung mass. No pleural effusions or pneumothorax. Right-sided pleural thickening is demonstrated. Cardiomediastinal silhouette: Stable cardiomediastinal silhouette. Bones and soft tissues: Multiple rib deformities and left clavicle deformity are visualized, likely chronic. IMPRESSION: No acute radiographic abnormality. Station Agent: PSCB Transcribe Date/Time: Nov 20 2024 4:54P Dictated by : CHAS WARD MD This examination was interpreted and the report reviewed and electronically signed by: CHAS WARD MD on Nov 20 2024 4:55PM EST [id number] Normal [facility] CHIO DENT JR. ([id number]) 1960 M Date Time Provider Department 11/17/24 ALEXEY MAYBERRY [facility] During your visit today, we recorded the following information about you: Holly Robbins LPN 11/17/2024 2:14 PM Signed Pt's Last OV: 11/06/24 - Next scheduled appt: 12/09/24 Argenis weston nurse with [employer] calls on pt's behalf for the followin) pt would like a referral to neurology. Would like order to go to Dr. Shashank Hartman. With recent health issues pt would like to be seen for right-sided weakness and tremors. 2) Argenis reports pt need the following refills: -Wellbutrin 150 mg -Eliquis 5 mg-was stopped because of internal bleeding but Given Go ahead to restart. - Seroquel 25 mg - pt had stopped med but realized he Needed to take med because it helped. - Ativan - pt was not take but realized it helped with the Tremors Unable to tell if all the med requests were from pcp or another provider. Need provider to review. Call pt and spoke to pt and Usha and she reports that some of the meds were from [facility] 3) Per Argenis: pt is having increased fatigue, wheezing, SOB. The lowest PO was 89 but usually has been 90 and above. Pt was around someone with pneumonia. Argenis is asking if wants to see pt. Called pt and spoke to pt and SO. Went over sx. Appt scheduled for 11/18/24 with pcp. CINTHIA Vidales Victor H, MD 11/18/2024 8:23 AM Signed Patient's request for medication has been refused. Patient will be seen today. Requested Prescriptions Refused Prescriptions Disp Refills LORazepam (ATIVAN) 0.5 mg 21 tablet 0 Sig: Take 1 tablet by mouth three times a day as needed (anxiety) for up to 7 days. Refused By: ALEXEY MAYBERRY Reason for Refusal: Patient needs appointment Allergies As of Date: 11/17/2024 Noted Allergy Reaction ASPIRIN 06/21/2010 8 - [...] ragweed (April, May and June) Date Reviewed: 11/06/2024 Reviewed by: Becca Gonzalez LPN - Fully Assessed Reason for Visit: Rx Refills [128] increased fatigue [Other] Consult [502] Visit Diagnosis:Major depressive disorder with psychotic features (HCC) [F32.3] Prescriptions as of 11/24/2024 - acetaminophen 325 mg cap Take 2 capsules by mouth as needed for pain. - apixaban (ELIQUIS) 5 mg tab(s) Take 1 tablet by mouth two times a day. - LORazepam (ATIVAN) 0.5 mg Take 1 tablet by mouth three times a day as needed (anxiety) for up to 30 days. - QUEtiapine (SEROQUEL) 25 mg tablet Take 1 tablet by mouth daily at bedtime. - ipratropium-albuterol (DUONEB) 0.5 mg-3 mg(2.5 mg base)/3 mL nebu Inhale 3 mL as instructed every 6 hours as needed for wheezing/shortness of breath. - gabapentin (NEURONTIN) 800 mg tablet Take 1 tablet by mouth three times a day. [facility] medication. - buPROPion SR (WELLBUTRIN SR) 150 mg 12 hr tablet Take 1 tablet by mouth two times a day. - cojpvwnswuw-ojknjmzkz-tlig nter (TRELEGY ELLIPTA) 200-62.5-25 mcg inhalation powder Inhale 1 Puff as instructed once daily. [facility]. - pantoprazole DR (PROTONIX) 40 mg tablet Take 1 tablet by mouth two times a day. - triamcinolone acetonide (KENALOG) 0.1 % cream Apply 1 application to affected area once daily as needed. - atorvastatin (LIPITOR) 20 mg tablet Take 1 tablet by mouth daily at bedtime. - magnesium oxide (MAG-OX) 400 mg (241.3 mg magnesium) tablet Take 1 tablet by mouth once daily. - guaiFENesin (MUCINEX) 1,200 mg Ta12 Take 1 tablet by mouth as needed. - ketoconazole (NIZORAL) 2 % cream Apply to affected area once daily. - furosemide (LASIX) 40 mg tablet Take 1 tablet by mouth once daily. - albuterol (PROVENTIL) 2.5 mg /3 mL (0.083 %) nebulizer solution Use 3 mL via nebulizer every 4 hours as needed for wheezing/shortness of breath. - glucagon 1 mg/mL injection Inject 1 mg intramuscularly as needed. - polyethylene glycol 3350 17 gram packet Take 1 Packet by mouth two times a day. Dissolve dose in 4 - 8 ounces of liquid and take as directed. - montelukast (SINGULAIR) 10 mg tablet Take 1 tablet by mouth once daily. Problem List As Of Date 11/17/2024 Noted Resolved History of [place] (myocardial infarction) [I25.2] 06/02/2008 03/21/2017 Hyperlipidemia [E78.5] Asthma [J45.909] COPD exacerbation (HCC) [J44.1] Former smoker [Z87.891] 06/02/2024 Hypertension [I10] Erectile dysfunction [N52.9] 11/09/2015 GERD (gastroesophageal reflux disease) [K21.9] 11/09/2015 (more content not included)... Normal [facility] ALBUMIN/CREATININE RATIO, UR INEon 11-09-2024 Albumin DL <= 20 mg/L (U) [Mass/Vol] mg/dL Normal [facility] Comment on above: Order Comment: Speci men Type: URINE SPECIMENOrdering Facility: [facility] Address: [address] [place] [address] Performed By: #### U ACR ####[facility] LABCLIA [id number] [address] [place] Albumin/Creatinine (U) [Mass ratio] Normal [facility] Comment on above: Order Comment: Speci men Type: URINE SPECIMENOrdering Facility: [facility] Address: [address] [place] [address] Result Comment: Not calculated Adult Male and Female Nephrotic Criteria: <30 mg/g is considered normal to mildly increased 30-300 mg/g is considered moderately increased >300 mg/g is considered severely increased KDIGO. (2013). KDIGO 2012 Clinical Practice Guideline for the Evaluation and Management of Chronic Kidney Disease. Official Journal of the International Society of Nephrology, 3(1), 1-150. Performed By: #### U ACR ####[facility] LABCLIA [id number] [place] [id number] [place] Creatinine (U) [Mass/Vol] 21.6 mg/dL Normal 20.0-300.0 [facility] Comment on above: Order Comment: Speci men Type: URINE SPECIMENOrdering Facility: [facility] Address: [address] [place] [address] Performed By: #### U ACR ####[facility] LABCLIA [id number] [address] [address] [place] XR Chest PA and Lateralon IMPRESSION: As above Station Agent: PSCMauro Transcribe Date/Time: Nov 08 2024 9:48A Dictated by : AIDAN LOMBARDO MD This examination was interpreted and the report reviewed and electronically signed by: AIDAN LOMBARDO MD on Nov 08 2024 9:55AM [facility] DIVISION OF RADIOLOGY * * *Final Report* * * DATE OF EXAM: Nov 06 2024 11:28AM WOX [id number] - XR CHEST 2V FRONTAL/LAT / PROCEDURE REASON: multiple diagnoses * * * * Physician Interpretation * * * * EXAMINATION: CHEST RADIOGRAPH (2 VIEW FRONTAL & LATERAL) CLINICAL HISTORY: COPD exacerbation (HCC) Fever, unspecified fever cause MQ: XC2_6 EXAM DATE/TIME: 11/06/2024 11:28 AM COMPARISON: Chest x-ray of 06/21/2024 RESULT: Lines, tubes, and devices: None. Lungs and pleura: Central apex is obscured by overlying chin. No consolidation. Bibasilar atelectasis. No lung mass. No pleural effusion. No pneumothorax. Cardiomediastinal silhouette: Normal cardiomediastinal silhouette. Bones and soft tissues: Remote left rib and left clavicular fractures. Previously seen right rib fractures are not evident on this image. DIVISION OF RADIOLOGY Provider, [facility] - 11/08/2024 * * *Final Report* * * DATE OF EXAM: Nov 06 2024 11:28AM WOX [id number] - XR CHEST 2V FRONTAL/LAT / PROCEDURE REASON: multiple diagnoses * * * * Physician Interpretation * * * * EXAMINATION: CHEST RADIOGRAPH (2 VIEW FRONTAL & LATERAL) CLINICAL HISTORY: COPD exacerbation (HCC) Fever, unspecified fever cause MQ: XC2_6 EXAM DATE/TIME: 11/06/2024 11:28 AM COMPARISON: Chest x-ray of 06/21/2024 RESULT: Lines, tubes, and devices: None. Lungs and pleura: Central apex is obscured by overlying chin. No consolidation. Bibasilar atelectasis. No lung mass. No pleural effusion. No pneumothorax.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 LABORATORYCLIA [id number] [address] OF [place] XR CHEST 2V FRONTAL/LATon XR CHEST 2V FRONTAL/LAT * * *Final Repor t* * * DATE OF EXAM: Nov 06 2024 11:28AM WOX [id number] - XR CHEST 2V FRONTAL/LAT / PROCEDURE REASON: multiple diagnoses * * * * Physician Interpretation * * * * EXAMINATION: CHEST RADIOGRAPH (2 VIEW FRONTAL and LATERAL) CLINICAL HISTORY: COPD exacerbation (HCC) Fever, unspecified fever cause MQ: XC2_6 EXAM DATE/TIME: 11/06/2024 11:28 AM COMPARISON: Chest x-ray of 06/21/2024 RESULT: Lines, tubes, and devices: None. Lungs and pleura: Central apex is obscured by overlying chin. No consolidation. Bibasilar atelectasis. No lung mass. No pleural effusion. No pneumothorax. Cardiomediastinal silhouette: Normal cardiomediastinal silhouette. Bones and soft tissues: Remote left rib and left clavicular fractures. Previously seen right rib fractures are not evident on this image. IMPRESSION: As above Station Agent: PSCMauro Transcribe Date/Time: Nov 08 2024 9:48A Dictated by : AIDAN LOMBARDO MD This examination was interpreted and the report reviewed and electronically signed by: AIDAN LOMBARDO MD on Nov 08 2024 9:55AM EST [id number] Normal [facility] XR Chest PA and Lateralon Radiology Study observation (narrative) [facility] CHIO DENT JR. ([id number]) 1960 M Date Time Provider Department 11/02/24 DIXON DIXON INTMBE During your visit today, we recorded the following information about you: Dixon Dixon DO 11/02/2024 7:29 AM Signed Alexey, Just a phone note to let you know that I was called by home care regarding your patient Chio who required verbal okay for home health care management. 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 - atorvastatin (LIPITOR) 20 mg tablet Take 1 tablet by mouth daily at bedtime. - gabapentin (NEURONTIN) 300 mg capsule 1 capsule by ORAL/FEEDING TUBE route every 8 hours for 7 days. - acetaminophen (TYLENOL) 650 mg/20.3 mL soln 20.3 mL by ORAL/FEEDING TUBE route every 6 hours as needed for pain or fever (specify temp.) (Temp greater than 38.3). Do not exceed 5 doses in 24 hours. - budesonide (PULMICORT) 0.5 mg/2 mL nebulizer solution Use 2 mL via nebulizer two times a day. - dextrose (TRUEPLUS) 15 gram/32 mL oral gel Take 32 mL by mouth as needed. - glucagon 1 mg/mL injection Inject 1 mg intramuscularly as needed. - dextrose 10% Inject 125 mL intravenously as needed (low blood sugar). - enoxaparin (LOVENOX) 40 mg/0.4 mL Inject 0.4 mL subcutaneously every 24 hours. - ipratropium-albuterol (DUONEB) 0.5 mg-3 mg(2.5 mg base)/3 mL nebu Inhale 3 mL as instructed every 4 hours. - lidocaine (SALONPAS) 4 % patch Apply 1 Patch as directed once daily. - polyethylene glycol 3350 17 gram packet Take 1 Packet by mouth two times a day. Dissolve dose in 4 - 8 ounces of liquid and take as directed. - senna-docusate (SENNA-S) 8.6-50 mg per tablet 2 tablets by ORAL/FEEDING TUBE route two times a day. - montelukast (SINGULAIR) 10 mg tablet Take 1 tablet by mouth once daily. Problem List As Of Date 11/02/2024 Noted Resolved History of IL (myocardial infarction) [I25.2] 06/02/2008 03/21/2017 Hyperlipidemia [E78.5] Asthma [J45.909] COPD exacerbation (HCC) [J44.1] Former smoker [Z87.891] 06/02/2024 Hypertension [I10] Erectile dysfunction [N52.9] 11/09/2015 GERD (gastroesophageal reflux disease) [K21.9] 11/09/2015 Nasal polyposis [J33.9] 11/09/2015 Hematuria [R31.9] 09/27/2011 11/09/2015 Lesion of bladder [N32.9] 09/27/2011 11/09/2015 Coronary artery disease involving [place] heart *03/21/2017 Seasonal allergic rhinitis due to fungal spores*01/14/2018 Allergic rhinitis due to dust mite [J30.89] 01/14/2018 Seasonal allergic rhinitis due to pollen [J30.1]01/14/2018 Bronchiectasis with acute exacerbation (HCC) [J*07/12/2021 Dysphagia [R13.10] 01/18/2022 Current smoker [F17.200] 06/02/2024 Other osteoporosis without current pathological*06/02/2024 Cardiac arrest (HCC) [I46.9] 06/04/2024 10/05/2024 Acute on chronic respiratory failure with hypox*06/04/2024 Traumatic pneumothorax [S27.0XXA] 06/04/2024 Pressure injury of deep tissue of sacral region*06/11/2024 Pneumothorax on right [J93.9] 06/15/2024 Multiple closed fractures of ribs of right side*06/15/2024 Respiratory arrest (HCC) [R09.2] 06/15/2024 Subcutaneous emphysema (HCC) [T79.7XXA] 06/15/2024 Leukocytosis [D72.829] 06/15/2024 Bacterial pneumonia [J15.9] 06/15/2024 Type 2 diabetes mellitus without complication, *06/15/2024 Hypernatremia [E87.0] 06/15/2024 Malnutrition of moderate degree (HCC) [E44.0] 06/16/2024 Subarachnoid hemorrhage (HCC) [I60.9] 06/17/2024 Quadriparesis (HCC) [G82.50] 06/18/2024 Abnormal brain MRI [R90.89] 06/18/2024 Tracheostomy status (HCC) [Z93.0] 06/18/2024 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*06/04/2024 Mass of right parotid gland [K11.8] 06/04/2024 Major depressive disorder with psychotic featur*07/17/2024 Pulmonary embolism (HCC) [I26.99] 08/11/2024 PEG (percutaneous endoscopic gastrostomy) statu*06/18/2024 Encounter Status:Closed by DIXON DIXON on 11/02/24 Normal [facility] Absolute lymphocyte countOrd ered By: Luiz Estevez on 10-31-2024 Lymphocytes Auto (Unsp spec) [#/Vol] 1.03 10*3/uL 0.83-4.51 [facility] Absolute neutrophil countOrd ered By: Luiz Estevez on 10-31-2024 Neutrophils (Bld) [#/Vol] 4.4 10*3/uL 2.0-7.7 [facility] Automated lymphocyte count a s percentage of total leukocytesOrdered By: Luiz Estevez on 10-31-2024 Lymphocytes/100 WBC Auto (Unsp spec) 15.0 % Low 19-41 [facility] Basophil percentageOrdered B y: Luiz Estevez on 10-31-2024 Basophils/100 WBC (Bld) 0.6 % 0-1 [facility] CBC W/Diff, Automatedon Absolute Lymph 1.03 X10 3/uL Normal 0.83-4.51 [facility] Comment on above: Performed By: #### L 100.0100 ####[facility] [address] [place], [address] Absolute Neut 4.4 X10 3/uL Normal 2.0-7.7 [facility] Comment on above: Performed By: #### L 100.0100 ####[facility] [address] [place], [address] Basophils/100 WBC (Bld) 0.6 % Normal 0-1 [facility] Comment on above: Performed By: #### L 100.0100 ####[facility] [address] [place], [address] Eosinophils/100 WBC (Bld) 10.5 % High 0-5 [facility] Comment on above: Performed By: #### L 100.0100 ####[facility] [address] [place], [address] Erythrocyte distribution width (RBC) [Ratio] 14.5 % Normal 11.6-14.6 [facility] Comment on above: Performed By: #### L 100.0100 ####[facility] [address] [place], [address] Hematocrit (Bld) [Volume fraction] 32.6 % Low 40-54 [facility] Comment on above: Performed By: #### L 100.0100 ####[facility] [address] [place], [address] Hemoglobin (Bld) [Mass/Vol] 10.6 g/dL Low 13.0-16.5 [facility] Comment on above: Performed By: #### L 100.0100 ####[facility] [address] [place], [address] IG% 0.700 Normal 0.0-0.9 [facility] Comment on above: Result Comment: IG% - Immature Granulocytes (promyelocytes, myelocytes andmetamyelocytes) > 1% indicates that a LEFT SHIFT is Present. Performed By: #### L 100.0100 ####[facility] [address] [place], [address] Lymphocytes/100 WBC (Bld) 15.0 % Low 19-41 [facility] Comment on above: Performed By: #### L 100.0100 ####[facility] [address] [place], [address] MCH (RBC) [Entitic mass] 27.9 pg Normal 27.0-32.0 [facility] Comment on above: Performed By: #### L 100.0100 ####[facility] [address] [place], [address] MCHC (RBC) [Mass/Vol] 32.5 g/dL Normal 32-36 [facility] Comment on above: Performed By: #### L 100.0100 ####[facility] [address] [place], [address] MCV (RBC) [Entitic vol] 85.8 fL Normal 80-94 [facility] Comment on above: Performed By: #### L 100.0100 ####[facility] [address] [place], [address] Monocytes/100 WBC (Bld) 9.6 % Normal 0-10 [facility] Comment on above: Performed By: #### L 100.0100 ####[facility] [address] [place], [address] Neutrophils/100 WBC (Bld) 63.6 % Normal 47-70 [facility] Comment on above: Performed By: #### L 100.0100 ####[facility] [address] [place], [address] Nucleated RBC (Bld) [#/Vol] 0 10*3/uL Normal 0-5 [facility] Comment on above: Performed By: #### L 100.0100 ####[facility] [address] [place], [address] Platelet mean volume (Bld) [Entitic vol] 9.4 fL Normal 6.2-12.0 [facility] Comment on above: Performed By: #### L 100.0100 ####[facility] [address] [place], [address] Platelets (Bld) [#/Vol] 295 10*3/uL Normal 150-450 [facility] Comment on above: Performed By: #### L 100.0100 ####[facility] [address] [place], [address] RBC (Bld) [#/Vol] 3.80 10*6/uL Low 4.6-6.2 [facility] Comment on above: Performed By: #### L 100.0100 ####[facility] [address] [place], [address] RDW SD 45.1 fl High 35.1-43.9 [facility] Comment on above: Performed By: #### L 100.0100 ####[facility] [address] [place], [address] WBC (Bld) [#/Vol] 6.9 10*3/uL Normal 4.4-11.0 [facility] Comment on above: Performed By: #### L 100.0100 ####[facility] [address] [place], [address] Discharge Instructionon 03-0 Discharge Instruction Normal [facility] Eosinophil percentageOrdered By: Luiz Estevez on 10-31-2024 Eosinophils/100 WBC (Bld) 10.5 % High 0-5 [facility] Erythrocyte distribution wid th ratioOrdered By: Luiz Estevez on 10-31-2024 Erythrocyte distribution width (RBC) [Ratio] 14.5 % 11.6-14.6 [facility] Erythrocyte distribution wid th standard deviationOrdered By: Luiz Estevez on 10-31-2024 Erythrocyte distribution width (RBC) [Ratio] 45.1 fl High 35.1-43.9 [facility] Hematocrit Auto (Bld) [Volum e fraction]Ordered By: Luiz Estevez on 10-31-2024 Hematocrit (Bld) [Volume fraction] 32.6 % Low 40-54 [facility] Hemoglobin measurementOrdere d By: Luiz Estevez on 10-31-2024 Hemoglobin (Bld) [Mass/Vol] 10.6 g/dL Low 13.0-16.5 [facility] Immature granulocytes/100 WB C Auto (Bld)Ordered By: Luiz Estevez on 10-31-2024 Immature granulocytes/100 WBC (Bld) 0.700 % 0.0-0.9 [facility] Comment on above: IG% - Immature Granu locytes (promyelocytes, myelocytes and metamyelocytes) > 1% indicates that a LEFT SHIFT is Present. MCV (mean corpuscular volume ) determinationOrdered By: Luiz Estevez on 10-31-2024 MCV (RBC) [Entitic vol] 85.8 fL 80-94 [facility] [place] Mean corpuscular hemoglobin (MCH) determinationOrdered By: Luiz Estevez on 10-31-2024 MCH (RBC) [Entitic mass] 27.9 pg 27.0-32.0 [facility] Mean corpuscular hemoglobin concentration (MCHC) determinationOrdered By: Luiz Estevez on 10-31-2024 MCHC (RBC) [Mass/Vol] 32.5 g/dL 32-36 [facility] Mean platelet volume determi nationOrdered By: Luiz Estevez on 10-31-2024 Platelet mean volume (Bld) [Entitic vol] 9.4 fL 6.2-12.0 [facility] Monocyte percentageOrdered B y: Luiz Estevez on 10-31-2024 Monocytes/100 WBC (Bld) 9.6 % 0-10 [facility] [place] Neutrophil percentageOrdered By: Luiz Estevez on 10-31-2024 Neutrophils/100 WBC (Bld) 63.6 % 47-70 [facility] Nucleated red blood cell per centageOrdered By: Luiz Estevez on 10-31-2024 Nucleated RBC/100 WBC (Bld) [Ratio] 0 % 0-5 [facility] Platelet countOrdered By: Comfort Estevez on 10-31-2024 Platelets (Bld) [#/Vol] 295 10*3/uL 150-450 [facility] RBC Auto (Bld) [#/Vol]Ordere d By: Luiz Estevez on 10-31-2024 RBC (Bld) [#/Vol] 3.80 10*6/uL Low 4.6-6.2 [facility] White blood cell (WBC) count Ordered By: Luiz Estevez on 10-31-2024 WBC (Bld) [#/Vol] 6.9 10*3/uL 4.4-11.0 [facility] 12 Lead EKGon 10-30-2024 12 Lead EKG Normal [facility] Activated partial thrombopla stin time (aPTT) in platelet poor plasma by coagulation aOrdered By: Ankit Starr on 10-30-2024 aPTT Coag (PPP) [Time] 36.5 s High 24.1-36.2 [facility] BUN/creatinine ratioOrdered By: Ankit Starr on 10-30-2024 Urea nitrogen/Creatinine [Mass ratio] 14.3 mg/mg 10- [facility] Basic Metabolic Profile (BMP )on 10-30-2024 Anion gap [Moles/Vol] 11 mmol/L Normal - [facility] Comment on above: Performed By: #### L 500.2500, L100.0100, L300.3900, L300.4310 ####[facility] [address] [place], [address] BUN/CRE 14.3 RATIO Normal - [facility] Comment on above: Performed By: #### L 500.2500, L100.0100, L300.3900, L300.4310 ####[facility] [address] [place], [address] Calcium [Mass/Vol] 8.3 mg/dL Normal 7.6-11.0 [facility] Comment on above: Performed By: #### L 500.2500, L100.0100, L300.3900, L300.4310 ####[facility] [address] [place], [address] Chloride [Moles/Vol] 106 mmol/L Normal 96-108 [facility] Comment on above: Performed By: #### L 500.2500, L100.0100, L300.3900, L300.4310 ####[facility] [address] [place], [address] CO2 [Moles/Vol] 21.3 mmol/L Low 22.0-29.0 [facility] Comment on above: Performed By: #### L 500.2500, L100.0100, L300.3900, L300.4310 ####[facility] [address] [place], [address] Creatinine [Mass/Vol] 0.66 mg/dL Low 0.70-1.20 [facility] Comment on above: Performed By: #### L 500.2500, L100.0100, L300.3900, L300.4310 ####[facility] [address] [place], [address] ECRCL 109.05 ml/min Normal [facility] Comment on above: Performed By: #### L 500.2500, L100.0100, L300.3900, L300.4310 ####[facility] [address] [place], [address] GFR/1.73 sq M.predicted among non-blacks MDRD (S/P/Bld) [Vol rate/Area] 105 mL/min/{1.73_m2} Normal >60 [facility] Comment on above: Result Comment: mL/m in/1.73m2 CKD-EPI Creatinine Equation (2020) Performed By: #### L 500.2500, L100.0100, L300.3900, L300.4310 ####[facility] [address] [place], [address] Glucose [Mass/Vol] 97 mg/dL Normal 70-99 [facility] Comment on above: Performed By: #### L 500.2500, L100.0100, L300.3900, L300.4310 ####[facility] [address] [place], [address] Potassium [Moles/Vol] 3.4 mmol/L Normal 3.3-5.1 [facility] Comment on above: Performed By: #### L 500.2500, L100.0100, L300.3900, L300.4310 ####[facility] [address] [place], [address] Sodium [Moles/Vol] 138 mmol/L Normal 133-145 [facility] Comment on above: Performed By: #### L 500.2500, L100.0100, L300.3900, L300.4310 ####[facility] [address] [place], [address] Urea nitrogen [Mass/Vol] 10 mg/dL Normal 4-19 [facility] Comment on above: Performed By: #### L 500.2500, L100.0100, L300.3900, L300.4310 ####[facility] [address] [place], [address] CBC W/Diff, Automatedon - Absolute Lymph 0.71 X10 3/uL Low 0.83-4.51 [facility] Comment on above: Performed By: #### L 500.2500, L100.0100, L300.3900, L300.4310 ####[facility] [address] [place], [address] Absolute Neut 4.6 X10 3/uL Normal 2.0-7.7 [facility] Comment on above: Performed By: #### L 500.2500, L100.0100, L300.3900, L300.4310 ####[facility] [address] [place], [address] Basophils/100 WBC (Bld) 0.3 % Normal 0-1 [facility] [place] Comment on above: Performed By: #### L 500.2500, L100.0100, L300.3900, L300.4310 ####[facility] [address] [place], [address] Eosinophils/100 WBC (Bld) 6.5 % High 0-5 [facility] Comment on above: Performed By: #### L 500.2500, L100.0100, L300.3900, L300.4310 ####[facility] [address] [place], [address] Erythrocyte distribution width (RBC) [Ratio] 14.5 % Normal 11.6-14.6 [facility] Comment on above: Performed By: #### L 500.2500, L100.0100, L300.3900, L300.4310 ####[facility] [address] [place], [address] Hematocrit (Bld) [Volume fraction] 33.6 % Low 40-54 [facility] Comment on above: Performed By: #### L 500.2500, L100.0100, L300.3900, L300.4310 ####[facility] [address] [place], [address] Hemoglobin (Bld) [Mass/Vol] 10.5 g/dL Low 13.0-16.5 [facility] Comment on above: Performed By: #### L 500.2500, L100.0100, L300.3900, L300.4310 ####[facility] [address] [place], [address] IG% 0.600 Normal 0.0-0.9 [facility] Comment on above: Result Comment: IG% - Immature Granulocytes (promyelocytes, myelocytes andmetamyelocytes) > 1% indicates that a LEFT SHIFT is Present. Performed By: #### L 500.2500, L100.0100, L300.3900, L300.4310 ####[facility] [address] [place], [address] Lymphocytes/100 WBC (Bld) 10.7 % Low 19-41 [facility] Comment on above: Performed By: #### L 500.2500, L100.0100, L300.3900, L300.4310 ####[facility] [address] [place], [address] MCH (RBC) [Entitic mass] 27.1 pg Normal 27.0-32.0 [facility] Comment on above: Performed By: #### L 500.2500, L100.0100, L300.3900, L300.4310 ####[facility] [address] [place], [address] MCHC (RBC) [Mass/Vol] 31.3 g/dL Low 32-36 [facility] Comment on above: Performed By: #### L 500.2500, L100.0100, L300.3900, L300.4310 ####[facility] [address] [place], [address] MCV (RBC) [Entitic vol] 86.8 fL Normal 80-94 [facility] Comment on above: Performed By: #### L 500.2500, L100.0100, L300.3900, L300.4310 ####[facility] [address] [place], [address] Monocytes/100 WBC (Bld) 12.0 % High 0-10 [facility] [place] Comment on above: Performed By: #### L 500.2500, L100.0100, L300.3900, L300.4310 ####[facility] [address] [place], [address] Neutrophils/100 WBC (Bld) 69.9 % Normal 47-70 [facility] Comment on above: Performed By: #### L 500.2500, L100.0100, L300.3900, L300.4310 ####[facility] [address] [place], [address] Nucleated RBC (Bld) [#/Vol] 0 10*3/uL Normal 0-5 [facility] Comment on above: Performed By: #### L 500.2500, L100.0100, L300.3900, L300.4310 ####[facility] [address] [place], [address] Platelet mean volume (Bld) [Entitic vol] 9.5 fL Normal 6.2-12.0 [facility] Comment on above: Performed By: #### L 500.2500, L100.0100, L300.3900, L300.4310 ####[facility] [address] [place], [address] Platelets (Bld) [#/Vol] 259 10*3/uL Normal 150-450 [facility] Comment on above: Performed By: #### L 500.2500, L100.0100, L300.3900, L300.4310 ####[facility] [address] [place], [address] RBC (Bld) [#/Vol] 3.87 10*6/uL Low 4.6-6.2 [facility] Comment on above: Performed By: #### L 500.2500, L100.0100, L300.3900, L300.4310 ####[facility] [address] [place], [address] RDW SD 46.2 fl High 35.1-43.9 [facility] Comment on above: Performed By: #### L 500.2500, L100.0100, L300.3900, L300.4310 ####[facility] [address] [place], [address] WBC (Bld) [#/Vol] 6.6 10*3/uL Normal 4.4-11.0 [facility] Comment on above: Performed By: #### L 500.2500, L100.0100, L300.3900, L300.4310 ####[facility] [address] [place], [address] Carbon dioxide measurementOr dered By: Ankit Starr on 10-30-2024 CO2 [Moles/Vol] 21.3 mmol/L Low 22.0-29.0 [facility] Chloride measurementOrdered By: Ankit Starr on 10-30-2024 Chloride [Moles/Vol] 106 mmol/L 96-108 [facility] EGD Reporton 10-30-2024 EGD Report Normal [facility] Glomerular filtration rate ( GFR) estimation/1.73 sq m using serum, plasma, or whole bOrdered By: Ankit Starr on 10-30-2024 GFR/1.73 sq M.predicted among non-blacks MDRD (S/P/Bld) [Vol rate/Area] 105 mL/min/{1.73_m2} >60 [facility] Comment on above: mL/min/1.73m2 CKD-EP I Creatinine Equation (2020) International normalized rat io (INR) calculationOrdered By: Ankit Starr on 10-30-2024 INR Coag (Bld) [Relative time] 1.2 {INR} [facility] L499.0042on 10-30-2024 Trop T Delta 34 Normal [facility] Comment on above: Performed By: #### L 499.0042 ####[facility] [address] [place], [address] Trop T High Sen 991 ng/L Invalid Interpretation Code <=22 [facility] Comment on above: Result Comment: Crit ical Result(s) Called at 0942: by: Chinyere Somers.??Results read back by same. Performed By: #### L 499.0042 ####[facility] [address] [place], [address] Trop T Delta Normal [facility] Comment on above: Result Comment: DUPL ICATE Performed By: #### L 499.0042 ####[facility] [address] [place], [address] Trop T High Sen Normal <=22 [facility] Comment on above: Result Comment: DUPL ICATE Performed By: #### L 499.0042 ####[facility] [address] [place], [address] L499.0043on 10-30-2024 Trop T Delta 124 Normal [facility] Comment on above: Performed By: #### L 499.0043 ####[facility] [address] [place], [address] Trop T High Sen 901 ng/L Invalid Interpretation Code <=22 [facility] Comment on above: Result Comment: Crit ical Result(s) Called at:1339 by: Chinyere Somers.??Results read back by same. Performed By: #### L 499.0043 ####[facility] [address] [place], [address] L501.4021on 10-30-2024 Trop T High Sen 1025 ng/L Invalid Interpretation Code <=22 [facility] Comment on above: Result Comment: Crit ical Result(s) Called at 0716 by: Chinyere Masterson.??Results read back by same. Performed By: #### L 501.4021 ####[facility] [address] [place], [address] MR/POSTOP.ANEon 10-30-2024 MR/POSTOP.ANE Normal [facility] MR/[id number] 10-30-2024 MR/POSTOPAN2 Normal [facility] No Panel InformationOrdered By: Chaka Parekh on 10-30-2024 124 [facility] 34 [facility] Troponin T High Sensitivity 1025 ng/L High <22 [facility] Comment on above: Critical Result(s) C alled at 0716 by: Chinyere Dalal to [facility]. Results read back by same. 1025 ng/L High <22 [facility] Partial Thromboplast Timeon 10-30-2024 aPTT Coag (Bld) [Time] 36.5 s High 24.1-36.2 [facility] Comment on above: Performed By: #### L 500.2500, L100.0100, L300.3900, L300.4310 ####[facility] [address] [place], [address] Prothrombin Time w/INRon INR Coag (PPP) [Relative time] 1.2 {INR} Normal [facility] Comment on above: Performed By: #### L 500.2500, L100.0100, L300.3900, L300.4310 ####[facility] [address] [place], [address] PT Coag (PPP) [Time] 15.3 s High 11.7-14.9 [facility] Comment on above: Performed By: #### L 500.2500, L100.0100, L300.3900, L300.4310 ####[facility] [address] [place], [address] Prothrombin timeOrdered By: Ankit Starr on 10-30-2024 PT Coag (PPP) [Time] 15.3 s High 11.7-14.9 [facility] Serum creatinine measurement (mass/volume)Ordered By: Ankit Starr on 10-30-2024 Creatinine [Mass/Vol] 0.66 mg/dL Low 0.70-1.20 [facility] Serum glucose measurement (m ass/volume)Ordered By: Ankit Starr on 10-30-2024 Glucose [Mass/Vol] 97 mg/dL 70-99 [facility] Serum or plasma anion gap de termination (moles/volume)Ordered By: Ankit Starr on 10-30-2024 Anion gap [Moles/Vol] 11 mmol/L 5-15 [facility] Serum or plasma calcium donald urement (mass/volume)Ordered By: Ankit Starr on 10-30-2024 Calcium [Mass/Vol] 8.3 mg/dL 7.6-11.0 [facility] Serum or plasma potassium me asurementOrdered By: Ankit Starr on 10-30-2024 Potassium [Moles/Vol] 3.4 mmol/L 3.3-5.1 [facility] Serum or plasma sodium measu rement (moles/volume)Ordered By: Ankit Starr on 10-30-2024 Sodium [Moles/Vol] 138 mmol/L 133-145 [facility] Serum or plasma urea nitroge n measurement (mass/volume)Ordered By: Ankit Starr on 10-30-2024 Urea nitrogen [Mass/Vol] 10 mg/dL 4-19 [facility] Troponin T.cardiac [Mass/vol ume] in Serum or Plasma by High sensitivity methodOrdered By: Chaka Parekh on 10-30-2024 Troponin T.cardiac High sensitivity method [Mass/Vol] 901 ng/L High <22 [facility] Comment on above: Critical Result(s) C alled at:1339 by: Chinyere Dalal to Britta. Results read back by same. Troponin T.cardiac High sensitivity method [Mass/Vol] 991 ng/L High <22 [facility] Comment on above: Critical Result(s) C alled at 0942: by: Chinyere Dalal to [facility]. Results read back by same. 12 Lead EKGon 10-29-2024 12 Lead EKG Normal [facility] Basic Metabolic Profile (BMP )on 10-29-2024 Anion gap [Moles/Vol] 9 mmol/L Normal 5-15 [facility] Comment on above: Performed By: #### L 500.2500, L100.0100 ####[facility] [address] [place], [address] BUN/CRE 18.0 RATIO Normal 10-20 [facility] Comment on above: Performed By: #### L 500.2500, L100.0100 ####[facility] [address] [place], [address] Calcium [Mass/Vol] 8.3 mg/dL Normal 7.6-11.0 [facility] Comment on above: Performed By: #### L 500.2500, L100.0100 ####[facility] [address] [place], [address] Chloride [Moles/Vol] 108 mmol/L Normal 96-108 [facility] Comment on above: Performed By: #### L 500.2500, L100.0100 ####[facility] [address] [place], [address] CO2 [Moles/Vol] 22.2 mmol/L Normal 22.0-29.0 [facility] Comment on above: Performed By: #### L 500.2500, L100.0100 ####[facility] [address] [place], [address] Creatinine [Mass/Vol] 0.7 mg/dL Low 0.8-1.3 [facility] Comment on above: Performed By: #### L 500.2500, L100.0100 ####[facility] [address] [place], [address] ECRCL 102.82 ml/min Normal [facility] Comment on above: Performed By: #### L 500.2500, L100.0100 ####[facility] [address] [place], [address] GFR/1.73 sq M.predicted among non-blacks MDRD (S/P/Bld) [Vol rate/Area] 104 mL/min/{1.73_m2} Normal >60 [facility] Comment on above: Result Comment: mL/m in/1.73m2 CKD-EPI Creatinine Equation (2020) Performed By: #### L 500.2500, L100.0100 ####[facility] [address] [place], [address] Glucose [Mass/Vol] 96 mg/dL Normal 70-99 [facility] Comment on above: Performed By: #### L 500.2500, L100.0100 ####[facility] [address] [place], [address] Potassium [Moles/Vol] 3.7 mmol/L Normal 3.3-5.1 [facility] Comment on above: Performed By: #### L 500.2500, L100.0100 ####[facility] [address] [place], [address] Sodium [Moles/Vol] 139 mmol/L Normal 133-145 [facility] Comment on above: Performed By: #### L 500.2500, L100.0100 ####[facility] [address] [place], [address] Urea nitrogen [Mass/Vol] 12 mg/dL Normal 4-19 [facility] Comment on above: Performed By: #### L 500.2500, L100.0100 ####[facility] [address] [place], [address] CBC W/Diff, Automatedon 10-04 Absolute Lymph 0.68 X10 3/uL Low 0.83-4.51 [facility] Comment on above: Performed By: #### L 500.2500, L100.0100 ####[facility] [address] [place], [address] Absolute Neut 4.6 X10 3/uL Normal 2.0-7.7 [facility] Comment on above: Performed By: #### L 500.2500, L100.0100 ####[facility] [address] [place], [address] Basophils/100 WBC (Bld) 0.3 % Normal 0-1 [facility] Comment on above: Performed By: #### L 500.2500, L100.0100 ####[facility] [address] [place], [address] Eosinophils/100 WBC (Bld) 6.6 % High 0-5 [facility] Comment on above: Performed By: #### L 500.2500, L100.0100 ####[facility] [address] [place], [address] Erythrocyte distribution width (RBC) [Ratio] 14.9 % High 11.6-14.6 [facility] Comment on above: Performed By: #### L 500.2500, L100.0100 ####[facility] [address] [place], [address] Hematocrit (Bld) [Volume fraction] 35.0 % Low 40-54 [facility] Comment on above: Performed By: #### L 500.2500, L100.0100 ####[facility] [address] [place], [address] Hemoglobin (Bld) [Mass/Vol] 11.1 g/dL Low 13.0-16.5 [facility] Comment on above: Performed By: #### L 500.2500, L100.0100 ####[facility] [address] [place], [address] IG% 0.800 Normal 0.0-0.9 [facility] Comment on above: Result Comment: IG% - Immature Granulocytes (promyelocytes, myelocytes andmetamyelocytes) > 1% indicates that a LEFT SHIFT is Present. Performed By: #### L 500.2500, L100.0100 ####[facility] [address] [place], [address] Lymphocytes/100 WBC (Bld) 10.5 % Low 19-41 [facility] Comment on above: Performed By: #### L 500.2500, L100.0100 ####[facility] [address] [place], [address] MCH (RBC) [Entitic mass] 28.4 pg Normal 27.0-32.0 [facility] Comment on above: Performed By: #### L 500.2500, L100.0100 ####[facility] [address] [place], [address] MCHC (RBC) [Mass/Vol] 31.7 g/dL Low 32-36 [facility] Comment on above: Performed By: #### L 500.2500, L100.0100 ####[facility] [address] [place], [address] MCV (RBC) [Entitic vol] 89.5 fL Normal 80-94 [facility] Comment on above: Performed By: #### L 500.2500, L100.0100 ####[facility] [address] [place], [address] Monocytes/100 WBC (Bld) 10.5 % High 0-10 [facility] [place] Comment on above: Performed By: #### L 500.2500, L100.0100 ####[facility] [address] [place], [address] Neutrophils/100 WBC (Bld) 71.3 % High 47-70 [facility] Comment on above: Performed By: #### L 500.2500, L100.0100 ####[facility] [address] [place], [address] Nucleated RBC (Bld) [#/Vol] 0 10*3/uL Normal 0-5 [facility] Comment on above: Performed By: #### L 500.2500, L100.0100 ####[facility] [address] [place], [address] Platelet mean volume (Bld) [Entitic vol] 9.5 fL Normal 6.2-12.0 [facility] Comment on above: Performed By: #### L 500.2500, L100.0100 ####[facility] [address] [place], [address] Platelets (Bld) [#/Vol] 236 10*3/uL Normal 150-450 [facility] Comment on above: Performed By: #### L 500.2500, L100.0100 ####[facility] [address] [place], [address] RBC (Bld) [#/Vol] 3.91 10*6/uL Low 4.6-6.2 [facility] Comment on above: Performed By: #### L 500.2500, L100.0100 ####[facility] [address] [place], [address] RDW SD 48.8 fl High 35.1-43.9 [facility] Comment on above: Performed By: #### L 500.2500, L100.0100 ####[facility] [address] [place], [address] WBC (Bld) [#/Vol] 6.5 10*3/uL Normal 4.4-11.0 [facility] Comment on above: Performed By: #### L 500.2500, L100.0100 ####[facility] [address] [place], [address] HH, Hemoglobin AND Hematocri ton 10-29-2024 HCT Normal 40-54 [facility] Comment on above: Result Comment: Canc elled via OM: MD Ordered Performed By: #### L 100.0600 ####[facility] [address] [place], [address] HGB Normal 13.0-16.5 [facility] Comment on above: Result Comment: Canc elled via OM: MD Ordered Performed By: #### L 100.0600 ####[facility] [address] [place], [address] Hematocrit (Bld) [Volume fraction] 33.2 % Low 40-54 [facility] Comment on above: Performed By: #### L 100.0600 ####[facility] [address] [place], [address] Hemoglobin (Bld) [Mass/Vol] 10.5 g/dL Low 13.0-16.5 [facility] Comment on above: Performed By: #### L 100.0600 ####[facility] [address] [place], [address] MR/CON.PCM.GIon 10-29-2024 MR/CON.PCM.GI Normal [facility] Abdomen Single View (Portabl e)on 10-28-2024 Abdomen Single View (Portable) Normal [facility] Bilirubin, totalOrdered By: Jose Duff on 10-28-2024 Bilirubin [Mass/Vol] 0.72 mg/dL 0.00-1.30 [facility] CBC W/Diff, Automatedon - Absolute Lymph 0.69 X10 3/uL Low 0.83-4.51 [facility] Comment on above: Performed By: #### L 100.0100, L501.2450, M100.7900, L500.4050 ####[facility] [address] [place], [address] Absolute Neut 11.8 X10 3/uL High 2.0-7.7 [facility] Comment on above: Performed By: #### L 100.0100, L501.2450, M100.7900, L500.4050 ####[facility] [address] [place], [address] Basophils/100 WBC (Bld) 0.3 % Normal 0-1 [facility] [place] Comment on above: Performed By: #### L 100.0100, L501.2450, M100.7900, L500.4050 ####[facility] [address] [place], [address] Eosinophils/100 WBC (Bld) 0.4 % Normal 0-5 [facility] Comment on above: Performed By: #### L 100.0100, L501.2450, M100.7900, L500.4050 ####[facility] [address] [place], [address] Erythrocyte distribution width (RBC) [Ratio] 15.4 % High 11.6-14.6 [facility] Comment on above: Performed By: #### L 100.0100, L501.2450, M100.7900, L500.4050 ####[facility] [address] [place], [address] Hematocrit (Bld) [Volume fraction] 36.5 % Low 40-54 [facility] Comment on above: Performed By: #### L 100.0100, L501.2450, M100.7900, L500.4050 ####[facility] [address] [place], [address] Hemoglobin (Bld) [Mass/Vol] 11.6 g/dL Low 13.0-16.5 [facility] Comment on above: Performed By: #### L 100.0100, L501.2450, M100.7900, L500.4050 ####[facility] [address] [place], [address] IG% 0.700 Normal 0.0-0.9 [facility] Comment on above: Result Comment: IG% - Immature Granulocytes (promyelocytes, myelocytes andmetamyelocytes) > 1% indicates that a LEFT SHIFT is Present. Performed By: #### L 100.0100, L501.2450, M100.7900, L500.4050 ####[facility] [address] [place], [address] Lymphocytes/100 WBC (Bld) 5.1 % Low 19-41 [facility] Comment on above: Performed By: #### L 100.0100, L501.2450, M100.7900, L500.4050 ####[facility] [address] [place], [address] MCH (RBC) [Entitic mass] 27.8 pg Normal 27.0-32.0 [facility] Comment on above: Performed By: #### L 100.0100, L501.2450, M100.7900, L500.4050 ####[facility] [address] [place], [address] MCHC (RBC) [Mass/Vol] 31.8 g/dL Low 32-36 [facility] Comment on above: Performed By: #### L 100.0100, L501.2450, M100.7900, L500.4050 ####[facility] [address] [place], [address] MCV (RBC) [Entitic vol] 87.3 fL Normal 80-94 [facility] [place] Comment on above: Performed By: #### L 100.0100, L501.2450, M100.7900, L500.4050 ####[facility] [address] [place], [address] Monocytes/100 WBC (Bld) 6.9 % Normal 0-10 [facility] Comment on above: Performed By: #### L 100.0100, L501.2450, M100.7900, L500.4050 ####[facility] [address] [place], [address] Neutrophils/100 WBC (Bld) 86.6 % High 47-70 [facility] Comment on above: Performed By: #### L 100.0100, L501.2450, M100.7900, L500.4050 ####[facility] [address] [place], [address] Nucleated RBC (Bld) [#/Vol] 0 10*3/uL Normal 0-5 [facility] Comment on above: Performed By: #### L 100.0100, L501.2450, M100.7900, L500.4050 ####[facility] [address] [place], [address] Platelet mean volume (Bld) [Entitic vol] 9.3 fL Normal 6.2-12.0 [facility] Comment on above: Performed By: #### L 100.0100, L501.2450, M100.7900, L500.4050 ####[facility] [address] [place], [address] Platelets (Bld) [#/Vol] 296 10*3/uL Normal 150-450 [facility] Comment on above: Performed By: #### L 100.0100, L501.2450, M100.7900, L500.4050 ####[facility] [address] [place], [address] RBC (Bld) [#/Vol] 4.18 10*6/uL Low 4.6-6.2 [facility] Comment on above: Performed By: #### L 100.0100, L501.2450, M100.7900, L500.4050 ####[facility] [address] [place], [address] RDW SD 49.6 fl High 35.1-43.9 [facility] Comment on above: Performed By: #### L 100.0100, L501.2450, M100.7900, L500.4050 ####[facility] [address] [place], [address] WBC (Bld) [#/Vol] 13.6 10*3/uL High 4.4-11.0 [facility] Comment on above: Performed By: #### L 100.0100, L501.2450, M100.7900, L500.4050 ####[facility] [address] [place], [address] Comprehensive Metabolic Prof ilon 10-28-2024 Albumin [Mass/Vol] 3.6 g/dL Normal 3.4-4.8 [facility] Comment on above: Performed By: #### L 100.0100, L501.2450, M100.7900, L500.4050 ####[facility] [address] [place], [address] Albumin/Globulin [Mass ratio] 1.5 {ratio} Normal 0.9-2.4 [facility] Comment on above: Performed By: #### L 100.0100, L501.2450, M100.7900, L500.4050 ####[facility] [address] [place], [address] ALK PHOS 104 U/L Normal 40-129 [facility] Comment on above: Performed By: #### L 100.0100, L501.2450, M100.7900, L500.4050 ####[facility] [address] [place], [address] ALT [Catalytic activity/Vol] 25 U/L Normal <=46 [facility] Comment on above: Performed By: #### L 100.0100, L501.2450, M100.7900, L500.4050 ####[facility] [address] [place], [address] Anion gap [Moles/Vol] 11 mmol/L Normal 5-15 [facility] Comment on above: Performed By: #### L 100.0100, L501.2450, M100.7900, L500.4050 ####[facility] [address] [place], [address] AST [Catalytic activity/Vol] 74 U/L High <=37 [facility] Comment on above: Performed By: #### L 100.0100, L501.2450, M100.7900, L500.4050 ####[facility] [address] [place], [address] Bilirubin [Mass/Vol] 0.72 mg/dL Normal 0.00-1.30 [facility] Comment on above: Performed By: #### L 100.0100, L501.2450, M100.7900, L500.4050 ####[facility] [address] [place], [address] BUN/CRE 21.1 RATIO High 10-20 [facility] Comment on above: Performed By: #### L 100.0100, L501.2450, M100.7900, L500.4050 ####[facility] [address] [place], [address] Calcium [Mass/Vol] 8.6 mg/dL Normal 7.6-11.0 [facility] Comment on above: Performed By: #### L 100.0100, L501.2450, M100.7900, L500.4050 ####[facility] [address] [place], [address] Chloride [Moles/Vol] 100 mmol/L Normal 96-108 [facility] Comment on above: Performed By: #### L 100.0100, L501.2450, M100.7900, L500.4050 ####[facility] [address] [place], [address] CO2 [Moles/Vol] 24.0 mmol/L Normal 22.0-29.0 [facility] Comment on above: Performed By: #### L 100.0100, L501.2450, M100.7900, L500.4050 ####[facility] [address] [place], [address] Creatinine [Mass/Vol] 1.0 mg/dL Normal 0.8-1.3 [facility] Comment on above: Performed By: #### L 100.0100, L501.2450, M100.7900, L500.4050 ####[facility] [address] [place], [address] ECRCL 68.59 ml/min Normal [facility] Comment on above: Performed By: #### L 100.0100, L501.2450, M100.7900, L500.4050 ####[facility] [address] [place], [address] GFR/1.73 sq M.predicted among non-blacks MDRD (S/P/Bld) [Vol rate/Area] 87 mL/min/{1.73_m2} Normal >60 [facility] Comment on above: Result Comment: mL/m in/1.73m2 CKD-EPI Creatinine Equation (2020) Performed By: #### L 100.0100, L501.2450, M100.7900, L500.4050 ####[facility] [address] [place], [address] Globulin (S) [Mass/Vol] 2.4 g/dL Normal 2.2-4.2 [facility] Comment on above: Performed By: #### L 100.0100, L501.2450, M100.7900, L500.4050 ####[facility] [address] [place], [address] Glucose [Mass/Vol] 121 mg/dL High 70-99 [facility] Comment on above: Performed By: #### L 100.0100, L501.2450, M100.7900, L500.4050 ####[facility] [address] [place], [address] Potassium [Moles/Vol] 3.9 mmol/L Normal 3.3-5.1 [facility] Comment on above: Performed By: #### L 100.0100, L501.2450, M100.7900, L500.4050 ####[facility] [address] [place], [address] Sodium [Moles/Vol] 136 mmol/L Normal 133-145 [facility] Comment on above: Performed By: #### L 100.0100, L501.2450, M100.7900, L500.4050 ####[facility] [address] [place], [address] T PROT 6.0 g/dL Normal 5.9-8.4 [facility] Comment on above: Performed By: #### L 100.0100, L501.2450, M100.7900, L500.4050 ####[facility] [address] [place], [address] Urea nitrogen [Mass/Vol] 21 mg/dL High 4-19 [facility] Comment on above: Performed By: #### L 100.0100, L501.2450, M100.7900, L500.4050 ####[facility] [address] [place], [address] Emergency Department Summary on 10-28-2024 Emergency Department Summary Normal [facility] Gastric contents occult bloo d detectionOrdered By: Jose Duff on 10-28-2024 Hemoglobin.gastrointest inal Ql (Michael fld) Positive Abnormal [facility] Gastric, Occult Bloodon 10-04 GASTOC Normal Reference Ran ge = Negative Gastrocult- Occult Blood A * POSITIVE * A Gastroccult pH 4 OCCULT BLOOD POSITIVE Normal [facility] Comment on above: Performed By: #### M 100.6950 ####[facility] [address] [place], [place], [address] H AND P Exam - Hospitaliston 10-28-2024 H&P Exam - Hospitalist Normal [facility] HH, Hemoglobin AND Hematocri ton 10-28-2024 Hematocrit (Bld) [Volume fraction] 35.4 % Low 40-54 [facility] Comment on above: Performed By: #### L 100.0600 ####[facility] [address] [place], [place], [address] Hemoglobin (Bld) [Mass/Vol] 11.2 g/dL Low 13.0-16.5 [facility] Comment on above: Performed By: #### L 100.0600 ####[facility] [address] [place], [place], [id number] Laboratory - Chemistry and C hemistry - challengeOrdered By: Jose Duff on 10-28-2024 AST [Catalytic activity/Vol] 74 U/L High <38 [facility] Lipaseon 10-28-2024 Lipase [Catalytic activity/Vol] 14 U/L Normal 13-75 [facility] Comment on above: Result Comment: Blayne delatorre note:LIPASE revised reference range effective 22.New Lipase methodology. Expected to produce lower valuesthan the previous assay method.NEW Reference Range: 13 - 75 U/L Performed By: #### L 100.0100, L501.2450, M100.7900, L500.4050 ####[facility] [address] [place], [place], [id number] Lipase measurementOrdered By : Jose Duff on 10-28-2024 Lipase [Catalytic activity/Vol] 14 U/L 13-75 [facility] Comment on above: Please note:LIPASE r evised reference range effective 22. New Lipase methodology. Expected to produce lower values than the previous assay method. NEW Reference Range: 13 - 75 U/L No Panel InformationOrdered By: Jose Duff on 10-28-2024 74 U/L High <38 [facility] Serum globulin measurementOr dered By: Jose Duff on 10-28-2024 Globulin (S) [Mass/Vol] 2.4 g/dL 2.2-4.2 [facility] Serum or plasma alanine stokes otransferase (ALT) measurementOrdered By: Jose Duff on 10-28-2024 ALT [Catalytic activity/Vol] 25 U/L <47 [facility] Serum or plasma albumin donald urement (mass/volume)Ordered By: Jose Duff on 10-28-2024 Albumin [Mass/Vol] 3.6 g/dL 3.4-4.8 [facility] Serum or plasma albumin/glob ulin mass ratioOrdered By: Jose Duff on 10-28-2024 Albumin/Globulin [Mass ratio] 1.5 {ratio} 0.9-2.4 [facility] Serum or plasma alkaline isiah sphatase measurementOrdered By: Jose Duff on 10-28-2024 ALP [Catalytic activity/Vol] 104 U/L 40-129 [facility] Stool Occult Blood iFOBon STOB Normal [facility] Comment on above: Performed By: #### L 100.0100, L501.2450, M100.7900, L500.4050 ####[facility] [address] [place], [address] Stool gastrointestinal hemog lobin detection by immunologic methodOrdered By: Jose Duff on 10-28-2024 Lower GI hemoglobin IA Ql (Stl) [facility] Total proteinOrdered By: Susanna Duff on 10-28-2024 Protein [Mass/Vol] 6.0 g/dL 5.9-8.4 [facility] CNPNon 10-26-2024 CNPN Telephone (INTWS) -- FILIPECHIO ([id number]) 1960 M Date Time Provider Department 10/26/24 ALEXEY MAYBERRY During your visit today, we recorded the following information about you: Phyllis Saleem LPN 10/26/2024 9:22 AM Signed Fax rec'd from [place] asking for notes and labs. This was faxed to [facility] medical records release. Allergies As of Date: 10/26/2024 Noted Allergy Reaction ASPIRIN 06/21/2010 8 - [...] ragweed (April, May and June) Date Reviewed: 06/23/2024 Reviewed by: Molly Maddox APRN.FELLING MACHINE OPERATOR - Fully Assessed Reason for Visit: Request Outside Medical Records [[id number]] Prescriptions as of 10/26/2024 - albuterol (PROVENTIL) 2.5 mg /3 mL (0.083 %) nebulizer solution Use 3 mL via nebulizer every 4 hours as needed for wheezing/shortness of breath. - atorvastatin (LIPITOR) 20 mg tablet Take 1 tablet by mouth daily at bedtime. - gabapentin (NEURONTIN) 300 mg capsule 1 capsule by ORAL/FEEDING TUBE route every 8 hours for 7 days. - acetaminophen (TYLENOL) 650 mg/20.3 mL soln 20.3 mL by ORAL/FEEDING TUBE route every 6 hours as needed for pain or fever (specify temp.) (Temp greater than 38.3). Do not exceed 5 doses in 24 hours. - budesonide (PULMICORT) 0.5 mg/2 mL nebulizer solution Use 2 mL via nebulizer two times a day. - dextrose (TRUEPLUS) 15 gram/32 mL oral gel Take 32 mL by mouth as needed. - glucagon 1 mg/mL injection Inject 1 mg intramuscularly as needed. - dextrose 10% Inject 125 mL intravenously as needed (low blood sugar). - enoxaparin (LOVENOX) 40 mg/0.4 mL Inject 0.4 mL subcutaneously every 24 hours. - ipratropium-albuterol (DUONEB) 0.5 mg-3 mg(2.5 mg base)/3 mL nebu Inhale 3 mL as instructed every 4 hours. - lidocaine (SALONPAS) 4 % patch Apply 1 Patch as directed once daily. - polyethylene glycol 3350 17 gram packet Take 1 Packet by mouth two times a day. Dissolve dose in 4 - 8 ounces of liquid and take as directed. - senna-docusate (SENNA-S) 8.6-50 mg per tablet 2 tablets by ORAL/FEEDING TUBE route two times a day. - montelukast (SINGULAIR) 10 mg tablet Take 1 tablet by mouth once daily. Problem List As Of Date 10/26/2024 Noted Resolved History of [place] (myocardial infarction) [I25.2] 06/02/2008 03/21/2017 Hyperlipidemia [E78.5] Asthma [J45.909] COPD exacerbation (HCC) [J44.1] Former smoker [Z87.891] 06/02/2024 Hypertension [I10] Erectile dysfunction [N52.9] 11/09/2015 GERD (gastroesophageal reflux disease) [K21.9] 11/09/2015 Nasal polyposis [J33.9] 11/09/2015 Hematuria [R31.9] 09/27/2011 11/09/2015 Lesion of bladder [N32.9] 09/27/2011 11/09/2015 Coronary artery disease involving [place] heart *03/21/2017 Seasonal allergic rhinitis due to fungal spores*01/14/2018 Allergic rhinitis due to dust mite [J30.89] 01/14/2018 Seasonal allergic rhinitis due to pollen [J30.1]01/14/2018 Bronchiectasis with acute exacerbation (HCC) [J*07/12/2021 Dysphagia [R13.10] 01/18/2022 Current smoker [F17.200] 06/02/2024 Other osteoporosis without current pathological*06/02/2024 Cardiac arrest (HCC) [I46.9] 06/04/2024 10/05/2024 Acute on chronic respiratory failure with hypox*06/04/2024 Traumatic pneumothorax [S27.0XXA] 06/04/2024 Pressure injury of deep tissue of sacral region*06/11/2024 Pneumothorax on right [J93.9] 06/15/2024 Multiple closed fractures of ribs of right side*06/15/2024 Respiratory arrest (HCC) [R09.2] 06/15/2024 Subcutaneous emphysema (HCC) [T79.7XXA] 06/15/2024 Leukocytosis [D72.829] 06/15/2024 Bacterial pneumonia [J15.9] 06/15/2024 Type 2 diabetes mellitus without complication, *06/15/2024 Hypernatremia [E87.0] 06/15/2024 Malnutrition of moderate degree (HCC) [E44.0] 06/16/2024 Subarachnoid hemorrhage (HCC) [I60.9] 06/17/2024 Quadriparesis (HCC) [G82.50] 06/18/2024 Abnormal brain MRI [R90.89] 06/18/2024 Tracheostomy status (HCC) [Z93.0] 06/18/2024 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*06/04/2024 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 10-19-2024 [facility] Telephone (FAMPWS) -- CHIO DENT JR. ([id number]) 1960 M Date Time Provider Department 10/19/24 ALEXEY MAYBERRY During your visit today, we recorded the following information about you: Holly Robbins LPN 10/19/2024 2:57 PM Signed Becca with [facility] HH calls to report pt is being discharged from [facility] with orders for PT and OT. Becca reports pt's trach has been removed and pt is going on 11/05 to get feeding tube removed. Becca reports that pt has some skin tears on his arms but Nursing was not ordered. Becca is requesting orders for Nursing also. Call Becca with provider's VO for HC. CINTHIA Vidales Victor H, MD 10/19/2024 4:48 PM Signed shelter for wound care, complex recovery. Natalia Aguilar OCCA 10/19/2024 5:01 PM Signed TC to Becca who verbalized understanding of providers message below. 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 - atorvastatin (LIPITOR) 20 mg tablet Take 1 tablet by mouth daily at bedtime. - gabapentin (NEURONTIN) 300 mg capsule 1 capsule by ORAL/FEEDING TUBE route every 8 hours for 7 days. - acetaminophen (TYLENOL) 650 mg/20.3 mL soln 20.3 mL by ORAL/FEEDING TUBE route every 6 hours as needed for pain or fever (specify temp.) (Temp greater than 38.3). Do not exceed 5 doses in 24 hours. - budesonide (PULMICORT) 0.5 mg/2 mL nebulizer solution Use 2 mL via nebulizer two times a day. - dextrose (TRUEPLUS) 15 gram/32 mL oral gel Take 32 mL by mouth as needed. - glucagon 1 mg/mL injection Inject 1 mg intramuscularly as needed. - dextrose 10% Inject 125 mL intravenously as needed (low blood sugar). - enoxaparin (LOVENOX) 40 mg/0.4 mL Inject 0.4 mL subcutaneously every 24 hours. - ipratropium-albuterol (DUONEB) 0.5 mg-3 mg(2.5 mg base)/3 mL nebu Inhale 3 mL as instructed every 4 hours. - lidocaine (SALONPAS) 4 % patch Apply 1 Patch as directed once daily. - polyethylene glycol 3350 17 gram packet Take 1 Packet by mouth two times a day. Dissolve dose in 4 - 8 ounces of liquid and take as directed. - senna-docusate (SENNA-S) 8.6-50 mg per tablet 2 tablets by ORAL/FEEDING TUBE route two times a day. - montelukast (SINGULAIR) 10 mg tablet Take 1 tablet by mouth once daily. Problem List As Of Date 10/19/2024 Noted Resolved History of IL (myocardial infarction) [I25.2] 06/02/2008 03/21/2017 Hyperlipidemia [E78.5] Asthma [J45.909] COPD exacerbation (HCC) [J44.1] Former smoker [Z87.891] 06/02/2024 Hypertension [I10] Erectile dysfunction [N52.9] 11/09/2015 GERD (gastroesophageal reflux disease) [K21.9] 11/09/2015 Nasal polyposis [J33.9] 11/09/2015 Hematuria [R31.9] 09/27/2011 11/09/2015 Lesion of bladder [N32.9] 09/27/2011 11/09/2015 Coronary artery disease involving [place] heart *03/21/2017 Seasonal allergic rhinitis due to fungal spores*01/14/2018 Allergic rhinitis due to dust mite [J30.89] 01/14/2018 Seasonal allergic rhinitis due to pollen [J30.1]01/14/2018 Bronchiectasis with acute exacerbation (HCC) [J*07/12/2021 Dysphagia [R13.10] 01/18/2022 Current smoker [F17.200] 06/02/2024 Other osteoporosis without current pathological*06/02/2024 Cardiac arrest (HCC) [I46.9] 06/04/2024 10/05/2024 Acute on chronic respiratory failure with hypox*06/04/2024 Traumatic pneumothorax [S27.0XXA] 06/04/2024 Pressure injury of deep tissue of sacral region*06/11/2024 Pneumothorax on right [J93.9] 06/15/2024 Multiple closed fractures of ribs of right side*06/15/2024 Respiratory arrest (HCC) [R09.2] 06/15/2024 Subcutaneous emphysema (HCC) [T79.7XXA] 06/15/2024 Leukocytosis [D72.829] 06/15/2024 Bacterial pneumonia [J15.9] 06/15/2024 Type 2 diabetes me (more content not included)... Normal [facility] Gastroenterology Visit Repor ton 10-15-2024 Gastroenterology Visit Report Normal [facility] Cardiology Visit Reporton Cardiology Visit Report Normal [facility] Pulmonary Visit Reporton Pulmonary Visit Report Normal [facility] Culture, Blood (WB)on 2024 CUB Blood cultures x2, f rom two different sites No growth in 5 days. Normal [facility] Comment on above: Performed By: #### M 200.1000, L300.3900, L503.6005 ####[facility] [address] [place], [address] Gram Stainon 09-14-2024 GS Acceptable Specimen? Yes (<25 Epithelial cells per/lpf) Gram Stain 4+ Gram negative rods 1+ Epithelial cells 2+ White Blood Cells Normal [facility] Comment on above: Performed By: #### M 100.2000, M100.2400 ####[facility] [address] [place], [address] Respiratory Cultureon 2024 RESPC Normal [facility] Comment on above: Performed By: #### M 100.2000, M100.2400 ####[facility] [address] [place], [address] Urine Cultureon 09-13-2024 URC Mixed Gram Positive Organisms [place] Count 11,000-25,000 MIXC Mixed contaminants. Submit a new specimen if indicated. Normal [facility] Comment on above: Performed By: #### M 100.2200 ####[facility] [address] [place], [address] Absolute lymphocyte countOrd ered By: on 09-12-2024 Lymphocytes Auto (Unsp spec) [#/Vol] 1.04 10*3/uL 0.83-4.51 [facility] Automated lymphocyte count a s percentage of total leukocytesOrdered By: on 09-12-2024 Lymphocytes/100 WBC Auto (Unsp spec) 13.2 % Low 19-41 [facility] Basophil percentageOrdered B y: on 09-12-2024 Basophils/100 WBC (Bld) 0.4 % 0-1 [facility] Bilirubin, totalOrdered By: on 09-12-2024 Bilirubin [Mass/Vol] 0.40 mg/dL 0.20-1.00 [facility] CBC W/Diff, Automatedon 09-02 Absolute Lymph 1.04 X10 3/uL Normal 0.83-4.51 [facility] Comment on above: Performed By: #### L 500.4050, L100.0100 ####[facility] [address] [place], [address] Absolute Neut 5.0 X10 3/uL Normal 2.0-7.7 [facility] Comment on above: Performed By: #### L 500.4050, L100.0100 ####[facility] [address] [place], [address] Basophils/100 WBC (Bld) 0.4 % Normal 0-1 [facility] Comment on above: Performed By: #### L 500.4050, L100.0100 ####[facility] [address] [place], [address] Eosinophils/100 WBC (Bld) 11.4 % High 0-5 [facility] Comment on above: Performed By: #### L 500.4050, L100.0100 ####[facility] [address] [place], [address] Erythrocyte distribution width (RBC) [Ratio] 15.0 % High 11.6-14.6 [facility] Comment on above: Performed By: #### L 500.4050, L100.0100 ####[facility] [address] [place], [address] Hematocrit (Bld) [Volume fraction] 33.5 % Low 40-54 [facility] Comment on above: Performed By: #### L 500.4050, L100.0100 ####[facility] [address] [place], [address] Hemoglobin (Bld) [Mass/Vol] 10.8 g/dL Low 13.0-16.5 [facility] Comment on above: Performed By: #### L 500.4050, L100.0100 ####[facility] [address] [place], [address] IG% 1.100 High 0.0-0.9 [facility] Comment on above: Result Comment: IG% - Immature Granulocytes (promyelocytes, myelocytes andmetamyelocytes) > 1% indicates that a LEFT SHIFT is Present. Performed By: #### L 500.4050, L100.0100 ####[facility] [address] [place], [address] Lymphocytes/100 WBC (Bld) 13.2 % Low 19-41 [facility] Comment on above: Performed By: #### L 500.4050, L100.0100 ####[facility] [address] [place], [address] MCH (RBC) [Entitic mass] 28.6 pg Normal 27.0-32.0 [facility] Comment on above: Performed By: #### L 500.4050, L100.0100 ####[facility] [address] [place], [address] MCHC (RBC) [Mass/Vol] 32.2 g/dL Normal 32-36 [facility] Comment on above: Performed By: #### L 500.4050, L100.0100 ####[facility] [address] [place], [address] MCV (RBC) [Entitic vol] 88.9 fL Normal 80-94 [facility] Comment on above: Performed By: #### L 500.4050, L100.0100 ####[facility] [address] [place], [address] Monocytes/100 WBC (Bld) 10.4 % High 0-10 [facility] Comment on above: Performed By: #### L 500.4050, L100.0100 ####[facility] [address] [place], [address] Neutrophils/100 WBC (Bld) 63.5 % Normal 47-70 [facility] Comment on above: Performed By: #### L 500.4050, L100.0100 ####[facility] [address] [place], [address] Nucleated RBC (Bld) [#/Vol] 0 10*3/uL Normal 0-5 [facility] Comment on above: Performed By: #### L 500.4050, L100.0100 ####[facility] [address] [place], [address] Platelet mean volume (Bld) [Entitic vol] 9.5 fL Normal 6.2-12.0 [facility] Comment on above: Performed By: #### L 500.4050, L100.0100 ####[facility] [address] [place], [address] Platelets (Bld) [#/Vol] 238 10*3/uL Normal 150-450 [facility] Comment on above: Performed By: #### L 500.4050, L100.0100 ####[facility] [address] [place], [address] RBC (Bld) [#/Vol] 3.77 10*6/uL Low 4.6-6.2 [facility] Comment on above: Performed By: #### L 500.4050, L100.0100 ####[facility] [address] [place], [address] RDW SD 48.6 fl High 35.1-43.9 [facility] Comment on above: Performed By: #### L 500.4050, L100.0100 ####[facility] [address] [place], [address] WBC (Bld) [#/Vol] 7.9 10*3/uL Normal 4.4-11.0 [facility] Comment on above: Performed By: #### L 500.4050, L100.0100 ####[facility] [address] [place], [address] Carbon dioxide measurementOr dered By: Jaqui Adler on 09-12-2024 CO2 [Moles/Vol] 25.0 mmol/L 21.0-32.0 [facility] Chloride measurementOrdered By: Jaqui Adler on 09-12-2024 Chloride [Moles/Vol] 113 mmol/L High 98-107 [facility] Comprehensive Metabolic Prof ilon 09-12-2024 Albumin [Mass/Vol] 2.2 g/dL Low 3.2-5.0 [facility] Comment on above: Performed By: #### L 500.4050, L100.0100 ####[facility] [address] [place], [address] Albumin/Globulin [Mass ratio] 0.8 {ratio} Low 0.9-2.4 [facility] Comment on above: Performed By: #### L 500.4050, L100.0100 ####[facility] [address] [place], [address] ALK P 101 U/L Normal 45-117 [facility] Comment on above: Performed By: #### L 500.4050, L100.0100 ####[facility] [address] [place], [address] ALT [Catalytic activity/Vol] 10 U/L Low 16-61 [facility] Comment on above: Performed By: #### L 500.4050, L100.0100 ####[facility] [address] [place], [address] AST [Catalytic activity/Vol] 6 U/L Low 15-37 [facility] Comment on above: Performed By: #### L 500.4050, L100.0100 ####[facility] [address] [place], [address] Bilirubin [Mass/Vol] 0.40 mg/dL Normal 0.20-1.00 [facility] Comment on above: Result Comment: For patients on eltrombopag therapy, use of Dimension [place] TBIL is not recommended. Performed By: #### L 500.4050, L100.0100 ####[facility] [address] [place], [address] BUN/CRE 12.4 RATIO Normal 10-20 [facility] Comment on above: Performed By: #### L 500.4050, L100.0100 ####[facility] [address] [place], [address] CA,Total 7.8 mg/dL Low 8.5-10.1 [facility] Comment on above: Performed By: #### L 500.4050, L100.0100 ####[facility] [address] [place], [address] Chloride [Moles/Vol] 113 mmol/L High 98-107 [facility] Comment on above: Performed By: #### L 500.4050, L100.0100 ####[facility] [address] [place], [address] CO2 [Moles/Vol] 25.0 mmol/L Normal 21.0-32.0 [facility] Comment on above: Performed By: #### L 500.4050, L100.0100 ####[facility] [address] [place], [address] Creatinine [Mass/Vol] 0.64 mg/dL Low 0.70-1.30 [facility] Comment on above: Result Comment: The validity of the calculated GFR GFRAA in patients over70 years has not been determined. Clinical correlation isessential. Performed By: #### L 500.4050, L100.0100 ####[facility] [address], [address] ECRCL 106.11 ml/min Normal [facility] Comment on above: Performed By: #### L 500.4050, L100.0100 ####[facility] [address] [place], [address] EST GFR - AA 161 mL/min Normal >60 [facility] Comment on above: Result Comment: Afri can [place] GFR Calc Performed By: #### L 500.4050, L100.0100 ####[facility] [address] [place], [address] GAP 4 Low 5-15 [facility] Comment on above: Performed By: #### L 500.4050, L100.0100 ####[facility] [address] [place], [address] GFR/1.73 sq M.predicted among non-blacks MDRD (S/P/Bld) [Vol rate/Area] 133 mL/min/{1.73_m2} Normal >60 [facility] Comment on above: Result Comment: Non- GFR Calc Performed By: #### L 500.4050, L100.0100 ####[facility] [address] [place], [address] Globulin (S) [Mass/Vol] 2.6 g/dL Normal 2.2-4.2 [facility] Comment on above: Performed By: #### L 500.4050, L100.0100 ####[facility] [address] [place], [address] Glucose [Mass/Vol] 94 mg/dL Normal 74-106 [facility] Comment on above: Performed By: #### L 500.4050, L100.0100 ####[facility] [address] [place], [address] Potassium [Moles/Vol] 3.1 mmol/L Low 3.5-5.1 [facility] Comment on above: Performed By: #### L 500.4050, L100.0100 ####[facility] [address] [place], [address] Sodium [Moles/Vol] 141 mmol/L Normal 136-145 [facility] Comment on above: Performed By: #### L 500.4050, L100.0100 ####[facility] [address] [place], [address] T PROT 4.8 g/dL Low 6.4-8.2 [facility] Comment on above: Performed By: #### L 500.4050, L100.0100 ####[facility] [address] [place], [address] Urea nitrogen [Mass/Vol] 8 mg/dL Normal 7-18 [facility] Comment on above: Performed By: #### L 500.4050, L100.0100 ####[facility] [address] [place], [address] Discharge Instructionon 09-02 Discharge Instruction Normal [facility] Eosinophil percentageOrdered By: on 09-12-2024 Eosinophils/100 WBC (Bld) 11.4 % High 0-5 [facility] Erythrocyte distribution wid th ratioOrdered By: on 09-12-2024 Erythrocyte distribution width (RBC) [Ratio] 15.0 % High 11.6-14.6 [facility] Erythrocyte distribution wid th standard deviationOrdered By: on 09-12-2024 Erythrocyte distribution width (RBC) [Ratio] 48.6 fl High 35.1-43.9 [facility] Glomerular filtration rate ( GFR) estimationOrdered By: on 09-12-2024 GFR/1.73 sq M.predicted among non-blacks MDRD (S/P/Bld) [Vol rate/Area] 133 mL/min/{1.73_m2} >60 [facility] Glucose measurementOrdered B y: Jaqui Vitor on 09-12-2024 Glucose [Mass/Vol] 94 mg/dL 74-106 [facility] Hematocrit Auto (Bld) [Volum e fraction]Ordered By: Jaqui Adler on 09-12-2024 Hematocrit (Bld) [Volume fraction] 33.5 % Low 40-54 [facility] Hemoglobin measurementOrdere d By: Jaqui White on 09-12-2024 Hemoglobin (Bld) [Mass/Vol] 10.8 g/dL Low 13.0-16.5 [facility] Immature granulocytes/100 WB C Auto (Bld)Ordered By: Jaqui Vitor on 09-12-2024 Immature granulocytes/100 WBC (Bld) 1.100 % High 0.0-0.9 [facility] MCV (mean corpuscular volume ) determinationOrdered By: Jaqui Vitor on 09-12-2024 MCV (RBC) [Entitic vol] 88.9 fL 80-94 [facility] Mean corpuscular hemoglobin (MCH) determinationOrdered By: Vitor on 09-12-2024 MCH (RBC) [Entitic mass] 28.6 pg 27.0-32.0 [facility] Monocyte percentageOrdered B y: Jaqui White on 09-12-2024 Monocytes/100 WBC (Bld) 10.4 % High 0-10 [facility] Neutrophil percentageOrdered By: on 09-12-2024 Neutrophils/100 WBC (Bld) 63.5 % 47-70 [facility] No Panel InformationOrdered By: Jaqui Vitor on 09-12-2024 6 U/L Low 15-37 [facility] Platelet countOrdered By: Annmarie toshiajonathan Adler on 09-12-2024 Platelets (Bld) [#/Vol] 238 10*3/uL 150-450 [facility] Potassium measurementOrdered By: Jaqui Adler on 09-12-2024 Potassium [Moles/Vol] 3.1 mmol/L Low 3.5-5.1 [facility] RBC Auto (Bld) [#/Vol]Ordere d By: Jaqui White on 09-12-2024 RBC (Bld) [#/Vol] 3.77 10*6/uL Low 4.6-6.2 [facility] Serum globulin measurementOr dered By: Jaqui Adler on 09-12-2024 Globulin (S) [Mass/Vol] 2.6 g/dL 2.2-4.2 [facility] [place] Serum or plasma alanine stokes otransferase (ALT) measurementOrdered By: Jaqui Adler on 09-12-2024 ALT [Catalytic activity/Vol] 10 U/L Low 16-61 [facility] Serum or plasma albumin donald urement (mass/volume)Ordered By: Jaqui Adler on 09-12-2024 Albumin [Mass/Vol] 2.2 g/dL Low 3.2-5.0 [facility] Serum or plasma alkaline isiah sphatase measurementOrdered By: Jaqui Adler on 09-12-2024 ALP [Catalytic activity/Vol] 101 U/L 45-117 [facility] Serum or plasma calcium donald urement (mass/volume)Ordered By: Jaqui Adler on 09-12-2024 Calcium [Mass/Vol] 7.8 mg/dL Low 8.5-10.1 [facility] Serum or plasma creatinine m easurement (mass/volume)Ordered By: Jaqui Adler on 09-12-2024 Creatinine [Mass/Vol] 0.64 mg/dL Low 0.70-1.30 [facility] Serum or plasma urea nitroge n measurement (mass/volume)Ordered By: Jaqui Adler on 09-12-2024 Urea nitrogen [Mass/Vol] 8 mg/dL 7-18 [facility] Sodium levelOrdered By: Francisco mn Vitor on 09-12-2024 Sodium [Moles/Vol] 141 mmol/L 136-145 [facility] Total proteinOrdered By: Dustin umn Vitor on 09-12-2024 Protein [Mass/Vol] 4.8 g/dL Low 6.4-8.2 [facility] White blood cell (WBC) count Ordered By: Jaqui Adler on 09-12-2024 WBC (Bld) [#/Vol] 7.9 10*3/uL 4.4-11.0 [facility] Bilirubin Test strip Ql (U)O rdered By: Romelia Titus on 09-11-2024 Bilirubin Ql (U) Negative Negative [facility] Blood cultureOrdered By: Shahla Titus on 09-11-2024 Bacteria identified Cx Nom (Bld) No growth in 5 days. [facility] Bacteria identified Cx Nom (Bld) No growth in 5 days. [facility] CBC W/Diff, Automatedon 01-1 0-5 Absolute Lymph 0.69 X10 3/uL Low 0.83-4.51 [facility] Comment on above: Performed By: #### L 500.4050, L100.0100 ####[facility] [address] [place], [address] Absolute Neut 11.9 X10 3/uL High 2.0-7.7 [facility] Comment on above: Performed By: #### L 500.4050, L100.0100 ####[facility] [address] [place], [address] Basophils/100 WBC (Bld) 0.3 % Normal 0-1 [facility] [place] Comment on above: Performed By: #### L 500.4050, L100.0100 ####[facility] [address] [place], [address] Eosinophils/100 WBC (Bld) 5.8 % High 0-5 [facility] Comment on above: Performed By: #### L 500.4050, L100.0100 ####[facility] [address] [place], [address] Erythrocyte distribution width (RBC) [Ratio] 14.8 % High 11.6-14.6 [facility] Comment on above: Performed By: #### L 500.4050, L100.0100 ####[facility] [address] [place], [address] Hematocrit (Bld) [Volume fraction] 40.1 % Normal 40-54 [facility] Comment on above: Performed By: #### L 500.4050, L100.0100 ####[facility] [address] [place], [address] Hemoglobin (Bld) [Mass/Vol] 13.0 g/dL Normal 13.0-16.5 [facility] Comment on above: Performed By: #### L 500.4050, L100.0100 ####[facility] [address] [place], [address] IG% 1.200 High 0.0-0.9 [facility] Comment on above: Result Comment: IG% - Immature Granulocytes (promyelocytes, myelocytes andmetamyelocytes) > 1% indicates that a LEFT SHIFT is Present. Performed By: #### L 500.4050, L100.0100 ####[facility] [address] [place], [address] Lymphocytes/100 WBC (Bld) 4.7 % Low 19-41 [facility] Comment on above: Performed By: #### L 500.4050, L100.0100 ####[facility] [address] [place], [address] MCH (RBC) [Entitic mass] 28.4 pg Normal 27.0-32.0 [facility] Comment on above: Performed By: #### L 500.4050, L100.0100 ####[facility] [address] [place], [address] MCHC (RBC) [Mass/Vol] 32.4 g/dL Normal 32-36 [facility] Comment on above: Performed By: #### L 500.4050, L100.0100 ####[facility] [address] [place], [address] MCV (RBC) [Entitic vol] 87.7 fL Normal 80-94 [facility] [place] Comment on above: Performed By: #### L 500.4050, L100.0100 ####[facility] [address] [place], [address] Monocytes/100 WBC (Bld) 7.4 % Normal 0-10 [facility] [place] Comment on above: Performed By: #### L 500.4050, L100.0100 ####[facility] [address] [place], [address] Neutrophils/100 WBC (Bld) 80.6 % High 47-70 [facility] Comment on above: Performed By: #### L 500.4050, L100.0100 ####[facility] [address] [place], [address] Nucleated RBC (Bld) [#/Vol] 0 10*3/uL Normal 0-5 [facility] Comment on above: Performed By: #### L 500.4050, L100.0100 ####[facility] [address] [place], [address] Platelet mean volume (Bld) [Entitic vol] 9.4 fL Normal 6.2-12.0 [facility] Comment on above: Performed By: #### L 500.4050, L100.0100 ####[facility] [address] [place], [address] Platelets (Bld) [#/Vol] 305 10*3/uL Normal 150-450 [facility] Comment on above: Performed By: #### L 500.4050, L100.0100 ####[facility] [address] [place], [address] RBC (Bld) [#/Vol] 4.57 10*6/uL Low 4.6-6.2 [facility] Comment on above: Performed By: #### L 500.4050, L100.0100 ####[facility] [address] [place], [address] RDW SD 47.8 fl High 35.1-43.9 [facility] Comment on above: Performed By: #### L 500.4050, L100.0100 ####[facility] [address] [place], [address] WBC (Bld) [#/Vol] 14.8 10*3/uL High 4.4-11.0 [facility] Comment on above: Performed By: #### L 500.4050, L100.0100 ####[facility] [address] [place], [address] Chest 1 View (Portable)on Chest 1 View (Portable) Normal [facility] [place] Comprehensive Metabolic Prof ilon 09-11-2024 Albumin [Mass/Vol] 2.9 g/dL Low 3.2-5.0 [facility] Comment on above: Performed By: #### L 500.4050, L100.0100 ####[facility] [address] [place], [address] Albumin/Globulin [Mass ratio] 0.9 {ratio} Normal 0.9-2.4 [facility] Comment on above: Performed By: #### L 500.4050, L100.0100 ####[facility] [address] [place], [address] ALK P 148 U/L High 45-117 [facility] Comment on above: Performed By: #### L 500.4050, L100.0100 ####[facility] [address] [place], [address] ALT [Catalytic activity/Vol] 11 U/L Low 16-61 [facility] Comment on above: Performed By: #### L 500.4050, L100.0100 ####[facility] [address] [place], [address] AST [Catalytic activity/Vol] 10 U/L Low 15-37 [facility] Comment on above: Performed By: #### L 500.4050, L100.0100 ####[facility] [address] [place], [address] Bilirubin [Mass/Vol] 0.30 mg/dL Normal 0.20-1.00 [facility] Comment on above: Result Comment: For patients on eltrombopag therapy, use of Dimension [place] TBIL is not recommended. Performed By: #### L 500.4050, L100.0100 ####[facility] [address] [place], [address] BUN/CRE 14.9 RATIO Normal 10-20 [facility] Comment on above: Performed By: #### L 500.4050, L100.0100 ####[facility] [address] [place], [address] CA,Total 8.6 mg/dL Normal 8.5-10.1 [facility] Comment on above: Performed By: #### L 500.4050, L100.0100 ####[facility] [address] [place], [address] Chloride [Moles/Vol] 104 mmol/L Normal 98-107 [facility] Comment on above: Performed By: #### L 500.4050, L100.0100 ####[facility] [address] [place], [address] CO2 [Moles/Vol] 27.0 mmol/L Normal 21.0-32.0 [facility] Comment on above: Performed By: #### L 500.4050, L100.0100 ####[facility] [address] [place], [address] Creatinine [Mass/Vol] 0.81 mg/dL Normal 0.70-1.30 [facility] Comment on above: Result Comment: The validity of the calculated GFR GFRAA in patients over70 years has not been determined. Clinical correlation isessential. Performed By: #### L 500.4050, L100.0100 ####[facility] [address], [address] ECRCL 84.24 ml/min Normal [facility] Comment on above: Performed By: #### L 500.4050, L100.0100 ####[facility] [address] [place], [address] EST GFR - AA 125 mL/min Normal >60 [facility] Comment on above: Result Comment: Afri can Guamanian GFR Calc Performed By: #### L 500.4050, L100.0100 ####[facility] [address] [place], [address] GAP 6 Normal 5-15 [facility] Comment on above: Performed By: #### L 500.4050, L100.0100 ####[facility] [address] [place], [address] GFR/1.73 sq M.predicted among non-blacks MDRD (S/P/Bld) [Vol rate/Area] 103 mL/min/{1.73_m2} Normal >60 [facility] Comment on above: Result Comment: Non- GFR Calc Performed By: #### L 500.4050, L100.0100 ####[facility] [address] [place], [address] Globulin (S) [Mass/Vol] 3.3 g/dL Normal 2.2-4.2 [facility] Comment on above: Performed By: #### L 500.4050, L100.0100 ####[facility] [address] [place], [address] Glucose [Mass/Vol] 119 mg/dL High 74-106 [facility] Comment on above: Result Comment: Fast ing Glucose result from 100 to 125 mg/dLsuggests IMPAIRED HOMEOSTASIS per A.D.A. criteria. Performed By: #### L 500.4050, L100.0100 ####[facility] [address] [place], [address] Potassium [Moles/Vol] 3.1 mmol/L Low 3.5-5.1 [facility] Comment on above: Performed By: #### L 500.4050, L100.0100 ####[facility] [address] [place], [address] Sodium [Moles/Vol] 138 mmol/L Normal 136-145 [facility] Comment on above: Performed By: #### L 500.4050, L100.0100 ####[facility] [address] [place], [address] T PROT 6.2 g/dL Low 6.4-8.2 [facility] Comment on above: Performed By: #### L 500.4050, L100.0100 ####[facility] [address] [place], [address] Urea nitrogen [Mass/Vol] 12 mg/dL Normal 7-18 [facility] Comment on above: Performed By: #### L 500.4050, L100.0100 ####[facility] [address] [place], [address] Emergency Department Summary on 09-11-2024 Emergency Department Summary Normal [facility] Gram stainOrdered By: Jose guerin on 09-11-2024 Microscopic observation Gram stain Nom (Unsp spec) [facility] H AND P Exam - Hospitaliston 09-11-2024 H&P Exam - Hospitalist Normal [facility] Influenza virus A and B and SARS-CoV-2 (COVID-19) and Respiratory syncytial virus RNAOrdered By: Romelia Titus on 09-11-2024 SARS-CoV-2 (COVID-19) RNA MANJU+probe Ql (Unsp spec) [facility] Ketones Test strip Ql (U)Ord ered By: Romelia Titus on 09-11-2024 Ketones Ql (U) Negative Negative [facility] Lactic Acidon 09-11-2024 Lactate [Moles/Vol] 1.6 mmol/L Normal 0.4-1.9 [facility] Comment on above: Order Comment: Y Performed By: #### M 200.1000, L300.3900, L503.6005 ####[facility] [address] [place], [address] Legionella Antigen Urineon 0 09-11-2024 LEGU Normal [facility] Comment on above: Performed By: #### M 300.4600, M300.4500 ####[facility] [address] [place], [address] M100.678on 09-11-2024 M100.678 Pending SARS-CoV-2 (COVID 19) Negative INFLUENZA A Negative INFLUENZA B Negative RSV PCR Negative Normal [facility] Comment on above: Performed By: #### M 100.678 ####[facility] [address] [place], [address] M8200.1000on 09-11-2024 M8200.1000 Normal [facility] Comment on above: Performed By: #### M 8200.1000 ####[facility] [address] [place], [address] Magnesiumon 09-11-2024 Magnesium [Mass/Vol] 1.7 mg/dL Normal 1.6-2.6 [facility] Comment on above: Order Comment: Comme nts: May add to ED labsComments: may add to ED labs Performed By: #### L 501.2300, L501.5200 ####[facility] [address] [place], [address] Magnesium measurementOrdered By: Jaqui Adler on 09-11-2024 Magnesium [Mass/Vol] 1.7 mg/dL 1.6-2.6 [facility] Microbial respiratory cultur eOrdered By: Jose Duff on 09-11-2024 Microorganism identified Cx Nom (Unsp spec) Klebsiella oxytoca Abnormal [facility] Microorganism identified Cx Nom (Unsp spec) Enterobacter cloacae complex Abnormal [facility] Mucus LM Ql (Urine sed)Order ed By: Romelia Titus on 09-11-2024 Mucus Ql (Urine sed) 0 SEEN /hpf [facility] Nasal methicillin resistant Staphylococcus aureus (MRSA) DNA detection by PCROrdered By: Jaqui Adler on 09-11-2024 MRSA DNA MANJU+probe Ql (Nose) Meth. resistant Staph. aureus Abnormal [facility] Nitrite Test strip Ql (U)Ord ered By: Romelia Ariela on 09-11-2024 Nitrite Ql (U) Negative Negative [facility] Phosphoruson 09-11-2024 Phosphate [Mass/Vol] 3.8 mg/dL Normal 2.5-4.9 [facility] Comment on above: Order Comment: Comme nts: May add to ED labsComments: may add to ED labs Performed By: #### L 501.2300, L501.5200 ####[facility] [address] [place], [address] Protein Test strip Ql (U)Ord ered By: Romeliatrista Titus on 09-11-2024 Protein Ql (U) Negative Negative [facility] Prothrombin Time w/INRon INR Coag (PPP) [Relative time] 1.5 {INR} Normal [facility] Comment on above: Performed By: #### M 200.1000, L300.3900, L503.6005 ####[facility] [address] [place], [address] PT Coag (PPP) [Time] 18.9 s High 11.7-14.9 [facility] Comment on above: Performed By: #### M 200.1000, L300.3900, L503.6005 ####[facility] [address] [place], [address] Prothrombin timeOrdered By: Romelia Titus on 09-11-2024 PT Coag (PPP) [Time] 18.9 s High 11.7-14.9 [facility] RESPIRATORY PANEL MOLECULARo n 09-11-2024 RP PANEL Normal [facility] Comment on above: Performed By: #### M 100.638 ####[facility] [address] [place], [address] Respiratory pathogens detect ion panel by molecular detection methodOrdered By: Jaqui Adler on 09-11-2024 Respiratory pathogens DNA and RNA panel MANJU+probe (Resp) [facility] Squamous epithelial cells de tection in urine sediment by light microscopyOrdered By: Romelia Titus on 09-11-2024 Epithelial cells.squamous LM Ql (Urine sed) 0 SEEN /hpf 0-5 [facility] Strep pneumoniae Antig(UR,CS F)on 09-11-2024 STPAG Normal [facility] Comment on above: Performed By: #### M 300.4600, M300.4500 ####[facility] [address] [place], [address] Urinalysis, Completeon 09-11 BACTERIA 0 SEEN Normal None Seen [facility] Comment on above: Order Comment: CLEAN CATCH Performed By: #### L 400.0001 ####[facility] [address] [place], [address] EPI,SQUAMOUS 0 SEEN Normal 0-5 [facility] Comment on above: Order Comment: CLEAN CATCH Performed By: #### L 400.0001 ####[facility] [address] [place], [address] Mucus Ql (Urine sed) 0 SEEN Normal [facility] Comment on above: Order Comment: CLEAN CATCH Performed By: #### L 400.0001 ####[facility] [address] [place], [address] RBC 0 SEEN Normal 0-5 [facility] Comment on above: Order Comment: CLEAN CATCH Performed By: #### L 400.0001 ####[facility] [address] [place], [address] WBC 0 SEEN Normal 0-5 [facility] Comment on above: Order Comment: CLEAN CATCH Performed By: #### L 400.0001 ####[facility] [address] [place], [address] Urine Legionella pneumophila antigen detectionOrdered By: Jaqui White on 09-11-2024 L. pneumophila Ag Ql (U) [facility] Urine clarityOrdered By: Shahla Titus on 09-11-2024 Clarity (U) Clear Clear [facility] Urine color determinationOrd ered By: Romelia Titus on 09-11-2024 Color (U) Yellow Yellow [facility] Urine cultureOrdered By: Shahla Titus on 09-11-2024 Bacteria identified Cx Nom (U) Positive Abnormal [facility] Urine glucose detectionOrder ed By: Romelia Titus on 09-11-2024 Glucose Ql (U) Normal mg/dl Normal [facility] Urine leukocyte esterase det ection by dipstickOrdered By: Romelia Titus on 09-11-2024 Leukocyte esterase Test strip Ql (U) Negative Negative [facility] Urine pHOrdered By: Romelia buckley on 09-11-2024 pH (U) 6.0 [pH] 5.0 - 8.0 [facility] Urine sediment bacteria coun t by microscopy (number/high power field)Ordered By: Romelia Titus on 09-11-2024 Bacteria LM.HPF (Urine sed) [#/Area] 0 /[HPF] None Seen [facility] Urine specific gravity measu rementOrdered By: Romelia Titus on 09-11-2024 Specific gravity (U) [Rel density] 1.020 1.002-1.03 0 [facility] Urine urobilinogen measureme ntOrdered By: Romelia Titus on 09-11-2024 Urobilinogen Ql (U) Normal mg/dl Normal [facility] White blood cell countOrdere d By: Romelia Titus on 09-11-2024 White blood cell count 0 SEEN /hpf 0-5 [facility] [place] Pulmonary Visit Reporton Pulmonary Visit Report Normal [facility] Basic Metabolic Profile (BMP )on 08-16-2024 BUN/CRE 23.9 RATIO High 10-20 [facility] Comment on above: Performed By: #### L 300.3900, L100.0100, L500.2500, L300.4310 ####[facility] [address] [place], [address] CA,Total 10.0 mg/dL Normal 8.5-10.1 [facility] Comment on above: Performed By: #### L 300.3900, L100.0100, L500.2500, L300.4310 ####[facility] [address] [place], [address] Chloride [Moles/Vol] 101 mmol/L Normal 98-107 [facility] Comment on above: Performed By: #### L 300.3900, L100.0100, L500.2500, L300.4310 ####[facility] [address] [place], [address] CO2 [Moles/Vol] 27.0 mmol/L Normal 21.0-32.0 [facility] Comment on above: Performed By: #### L 300.3900, L100.0100, L500.2500, L300.4310 ####[facility] [address] [place], [address] Creatinine [Mass/Vol] 0.75 mg/dL Normal 0.70-1.30 [facility] Comment on above: Result Comment: The validity of the calculated GFR GFRAA in patients over70 years has not been determined. Clinical correlation isessential. Performed By: #### L 300.3900, L100.0100, L500.2500, L300.4310 ####[facility] [address] [place], [address] ECRCL 92.01 ml/min Normal [facility] Comment on above: Performed By: #### L 300.3900, L100.0100, L500.2500, L300.4310 ####[facility] [address] [place], [address] EST GFR - AA 135 mL/min Normal >60 [facility] Comment on above: Result Comment: Afri can Guamanian GFR Calc Performed By: #### L 300.3900, L100.0100, L500.2500, L300.4310 ####[facility] [address] [place], [address] GAP 9 Normal 5-15 [facility] Comment on above: Performed By: #### L 300.3900, L100.0100, L500.2500, L300.4310 ####[facility] [address] [place], [address] GFR/1.73 sq M.predicted among non-blacks MDRD (S/P/Bld) [Vol rate/Area] 111 mL/min/{1.73_m2} Normal >60 [facility] Comment on above: Result Comment: Non- GFR Calc Performed By: #### L 300.3900, L100.0100, L500.2500, L300.4310 ####[facility] [address] [place], [address] Glucose [Mass/Vol] 135 mg/dL High 74-106 [facility] Comment on above: Result Comment: Fast ing Glucose result greater than or equal to 126 mg/dLsuggests DIABETES MELLITUS per A.D.A. criteria. Performed By: #### L 300.3900, L100.0100, L500.2500, L300.4310 ####[facility] [address] [place], [address] Potassium [Moles/Vol] 3.9 mmol/L Normal 3.5-5.1 [facility] Comment on above: Performed By: #### L 300.3900, L100.0100, L500.2500, L300.4310 ####[facility] [address] [place], [address] Sodium [Moles/Vol] 137 mmol/L Normal 136-145 [facility] Comment on above: Performed By: #### L 300.3900, L100.0100, L500.2500, L300.4310 ####[facility] [address] [place], [address] Urea nitrogen [Mass/Vol] 18 mg/dL Normal 7-18 [facility] Comment on above: Performed By: #### L 300.3900, L100.0100, L500.2500, L300.4310 ####[facility] [address] [place], [address] CBC W/Diff, Automatedon 12-09 06-2023 Absolute Lymph 0.82 X10 3/uL Low 0.83-4.51 [facility] Comment on above: Performed By: #### L 300.3900, L100.0100, L500.2500, L300.4310 ####[facility] [address] [place], [address] Absolute Neut 12.6 X10 3/uL High 2.0-7.7 [facility] Comment on above: Performed By: #### L 300.3900, L100.0100, L500.2500, L300.4310 ####[facility] [address] [place], [address] Basophils/100 WBC (Bld) 0.3 % Normal 0-1 [facility] Comment on above: Performed By: #### L 300.3900, L100.0100, L500.2500, L300.4310 ####[facility] [address] [place], [address] Eosinophils/100 WBC (Bld) 0.9 % Normal 0-5 [facility] Comment on above: Performed By: #### L 300.3900, L100.0100, L500.2500, L300.4310 ####[facility] [address] [place], [address] Erythrocyte distribution width (RBC) [Ratio] 14.9 % High 11.6-14.6 [facility] Comment on above: Performed By: #### L 300.3900, L100.0100, L500.2500, L300.4310 ####[facility] [address] [place], [address] Hematocrit (Bld) [Volume fraction] 40.2 % Normal 40-54 [facility] Comment on above: Performed By: #### L 300.3900, L100.0100, L500.2500, L300.4310 ####[facility] [address] [place], [address] Hemoglobin (Bld) [Mass/Vol] 12.9 g/dL Low 13.0-16.5 [facility] Comment on above: Performed By: #### L 300.3900, L100.0100, L500.2500, L300.4310 ####[facility] [address] [place], [address] IG% 1.100 High 0.0-0.9 [facility] Comment on above: Result Comment: IG% - Immature Granulocytes (promyelocytes, myelocytes andmetamyelocytes) > 1% indicates that a LEFT SHIFT is Present. Performed By: #### L 300.3900, L100.0100, L500.2500, L300.4310 ####[facility] [address] [place], [address] Lymphocytes/100 WBC (Bld) 5.5 % Low 19-41 [facility] Comment on above: Performed By: #### L 300.3900, L100.0100, L500.2500, L300.4310 ####[facility] [address] [place], [address] MCH (RBC) [Entitic mass] 28.8 pg Normal 27.0-32.0 [facility] Comment on above: Performed By: #### L 300.3900, L100.0100, L500.2500, L300.4310 ####[facility] [address] [place], [address] MCHC (RBC) [Mass/Vol] 32.1 g/dL Normal 32-36 [facility] Comment on above: Performed By: #### L 300.3900, L100.0100, L500.2500, L300.4310 ####[facility] [address] [place], [address] MCV (RBC) [Entitic vol] 89.7 fL Normal 80-94 [facility] Comment on above: Performed By: #### L 300.3900, L100.0100, L500.2500, L300.4310 ####[facility] [address] [place], [address] Monocytes/100 WBC (Bld) 7.6 % Normal 0-10 [facility] Comment on above: Performed By: #### L 300.3900, L100.0100, L500.2500, L300.4310 ####[facility] [address] [place], [address] Neutrophils/100 WBC (Bld) 84.6 % High 47-70 [facility] Comment on above: Performed By: #### L 300.3900, L100.0100, L500.2500, L300.4310 ####[facility] [address] [place], [address] Nucleated RBC (Bld) [#/Vol] 0 10*3/uL Normal 0-5 [facility] Comment on above: Performed By: #### L 300.3900, L100.0100, L500.2500, L300.4310 ####[facility] [address] [place], [address] Platelet mean volume (Bld) [Entitic vol] 9.7 fL Normal 6.2-12.0 [facility] Comment on above: Performed By: #### L 300.3900, L100.0100, L500.2500, L300.4310 ####[facility] [address] [place], [address] Platelets (Bld) [#/Vol] 367 10*3/uL Normal 150-450 [facility] Comment on above: Performed By: #### L 300.3900, L100.0100, L500.2500, L300.4310 ####[facility] [address] [place], [address] RBC (Bld) [#/Vol] 4.48 10*6/uL Low 4.6-6.2 [facility] Comment on above: Performed By: #### L 300.3900, L100.0100, L500.2500, L300.4310 ####[facility] [address] [place], [address] RDW SD 49.6 fl High 35.1-43.9 [facility] Comment on above: Performed By: #### L 300.3900, L100.0100, L500.2500, L300.4310 ####[facility] [address] [place], [address] WBC (Bld) [#/Vol] 14.9 10*3/uL High 4.4-11.0 [facility] Comment on above: Performed By: #### L 300.3900, L100.0100, L500.2500, L300.4310 ####[facility] [address] [place], [address] CTA Abd/Pelvis W/WO Contrast on 08-16-2024 CTA Abd/Pelvis W/WO Contrast Normal [facility] Chest PA and Lateralon 08-16 Chest PA and Lateral Normal [facility] Emergency Department Summary on 08-16-2024 Emergency Department Summary Normal [facility] Gastric, Occult Bloodon 08-02 GASTOC Positive Normal [facility] Comment on above: Performed By: #### M 100.3071 ####[facility] [address] [place], [address] Neck for Soft Tissueon 08-16 Neck for Soft Tissue Normal [facility] Partial Thromboplast Timeon 08-16-2024 aPTT Coag (Bld) [Time] 29.8 s Normal 24.1-36.2 [facility] Comment on above: Performed By: #### L 300.3900, L100.0100, L500.2500, L300.4310 ####[facility] [address] [place], [address] Prothrombin Time w/INRon INR Coag (PPP) [Relative time] 1.1 {INR} Normal [facility] Comment on above: Performed By: #### L 300.3900, L100.0100, L500.2500, L300.4310 ####[facility] [address] [place], [address] PT Coag (PPP) [Time] 14.5 s Normal 11.7-14.9 [facility] Comment on above: Performed By: #### L 300.3900, L100.0100, L500.2500, L300.4310 ####[facility] [address] [place], [address] Soft Tissue Neck without Con viola 08-16-2024 Soft Tissue Neck without Contr Normal [facility] Stool Occult Blood iFOBon STOB Normal [facility] Comment on above: Performed By: #### M 100.0254 ####[facility] [address] [place], [address] 12 Lead EKGon 08-11-2024 12 Lead EKG Normal [facility] BNP,B-Type NATRIURETIC PEPTI Enma 08-11-2024 Natriuretic peptide B (Bld) [Mass/Vol] 26.1 pg/mL Normal 0-100 [facility] Comment on above: Performed By: #### L 501.4020, L500.2500, L100.0100, L300.8000, L503.6620 ####[facility] [address] [place], [address] Basic Metabolic Profile (BMP )on 08-11-2024 BUN/CRE 25.3 RATIO High 10-20 [facility] Comment on above: Order Comment: 'TROP ' Serial specimen #1, #2 or #3: 1 Performed By: #### L 501.4020, L500.2500, L100.0100, L300.8000, L503.6620 ####[facility] [address] [place], [address] CA,Total 9.2 mg/dL Normal 8.5-10.1 [facility] Comment on above: Order Comment: 'TROP ' Serial specimen #1, #2 or #3: 1 Performed By: #### L 501.4020, L500.2500, L100.0100, L300.8000, L503.6620 ####[facility] [address] [place], [address] Chloride [Moles/Vol] 104 mmol/L Normal 98-107 [facility] Comment on above: Order Comment: 'TROP ' Serial specimen #1, #2 or #3: 1 Performed By: #### L 501.4020, L500.2500, L100.0100, L300.8000, L503.6620 ####[facility] [address] [place], [address] CO2 [Moles/Vol] 28.0 mmol/L Normal 21.0-32.0 [facility] Comment on above: Order Comment: 'TROP ' Serial specimen #1, #2 or #3: 1 Performed By: #### L 501.4020, L500.2500, L100.0100, L300.8000, L503.6620 ####[facility] [address] [place], [address] Creatinine [Mass/Vol] 0.67 mg/dL Low 0.70-1.30 [facility] Comment on above: Order Comment: 'TROP ' Serial specimen #1, #2 or #3: 1 Result Comment: The validity of the calculated GFR GFRAA in patients over70 years has not been determined. Clinical correlation isessential. Performed By: #### L 501.4020, L500.2500, L100.0100, L300.8000, L503.6620 ####[facility] [address] [place], [address] ECRCL 103.16 ml/min Normal [facility] Comment on above: Order Comment: 'TROP ' Serial specimen #1, #2 or #3: 1 Performed By: #### L 501.4020, L500.2500, L100.0100, L300.8000, L503.6620 ####[facility] [address] [place], [address] EST GFR - AA 154 mL/min Normal >60 [facility] Comment on above: Order Comment: 'TROP ' Serial specimen #1, #2 or #3: 1 Result Comment: Afri can Guamanian GFR Calc Performed By: #### L 501.4020, L500.2500, L100.0100, L300.8000, L503.6620 ####[facility] [address] [place], [address] GAP 6 Normal 5-15 [facility] Comment on above: Order Comment: 'TROP ' Serial specimen #1, #2 or #3: 1 Performed By: #### L 501.4020, L500.2500, L100.0100, L300.8000, L503.6620 ####[facility] [address] [place], [address] GFR/1.73 sq M.predicted among non-blacks MDRD (S/P/Bld) [Vol rate/Area] 127 mL/min/{1.73_m2} Normal >60 [facility] Comment on above: Order Comment: 'TROP ' Serial specimen #1, #2 or #3: 1 Result Comment: Non- GFR Calc Performed By: #### L 501.4020, L500.2500, L100.0100, L300.8000, L503.6620 ####[facility] [address] [place], [address] Glucose [Mass/Vol] 180 mg/dL High 74-106 [facility] Comment on above: Order Comment: 'TROP ' Serial specimen #1, #2 or #3: 1 Result Comment: Fast ing Glucose result greater than or equal to 126 mg/dLsuggests DIABETES MELLITUS per A.D.A. criteria. Performed By: #### L 501.4020, L500.2500, L100.0100, L300.8000, L503.6620 ####[facility] [address] [place], [address] Potassium [Moles/Vol] 3.6 mmol/L Normal 3.5-5.1 [facility] Comment on above: Order Comment: 'TROP ' Serial specimen #1, #2 or #3: 1 Performed By: #### L 501.4020, L500.2500, L100.0100, L300.8000, L503.6620 ####[facility] [address] [place], [address] Sodium [Moles/Vol] 138 mmol/L Normal 136-145 [facility] Comment on above: Order Comment: 'TROP ' Serial specimen #1, #2 or #3: 1 Performed By: #### L 501.4020, L500.2500, L100.0100, L300.8000, L503.6620 ####[facility] [address] [place], [address] Urea nitrogen [Mass/Vol] 17 mg/dL Normal 7-18 [facility] Comment on above: Order Comment: 'TROP ' Serial specimen #1, #2 or #3: 1 Performed By: #### L 501.4020, L500.2500, L100.0100, L300.8000, L503.6620 ####[facility] [address] [place], [address] CBC W/Diff, Automatedon 12- 0-2023 Absolute Lymph 0.58 X10 3/uL Low 0.83-4.51 [facility] Comment on above: Performed By: #### L 501.4020, L500.2500, L100.0100, L300.8000, L503.6620 ####[facility] [address] [place], [address] Absolute Neut 15.5 X10 3/uL High 2.0-7.7 [facility] Comment on above: Performed By: #### L 501.4020, L500.2500, L100.0100, L300.8000, L503.6620 ####[facility] [address] [place], [address] Basophils/100 WBC (Bld) 0.2 % Normal 0-1 [facility] Comment on above: Performed By: #### L 501.4020, L500.2500, L100.0100, L300.8000, L503.6620 ####[facility] [address] [place], [address] Eosinophils/100 WBC (Bld) 0.1 % Normal 0-5 [facility] Comment on above: Performed By: #### L 501.4020, L500.2500, L100.0100, L300.8000, L503.6620 ####[facility] [address] [place], [address] Erythrocyte distribution width (RBC) [Ratio] 15.5 % High 11.6-14.6 [facility] Comment on above: Performed By: #### L 501.4020, L500.2500, L100.0100, L300.8000, L503.6620 ####[facility] [address] [place], [address] Hematocrit (Bld) [Volume fraction] 43.0 % Normal 40-54 [facility] Comment on above: Performed By: #### L 501.4020, L500.2500, L100.0100, L300.8000, L503.6620 ####[facility] [address] [place], [address] Hemoglobin (Bld) [Mass/Vol] 13.7 g/dL Normal 13.0-16.5 [facility] Comment on above: Performed By: #### L 501.4020, L500.2500, L100.0100, L300.8000, L503.6620 ####[facility] [address] [place], [address] IG% 1.300 High 0.0-0.9 [facility] Comment on above: Result Comment: IG% - Immature Granulocytes (promyelocytes, myelocytes andmetamyelocytes) > 1% indicates that a LEFT SHIFT is Present. Performed By: #### L 501.4020, L500.2500, L100.0100, L300.8000, L503.6620 ####[facility] [address] [place], [address] Lymphocytes/100 WBC (Bld) 3.3 % Low 19-41 [facility] Comment on above: Performed By: #### L 501.4020, L500.2500, L100.0100, L300.8000, L503.6620 ####[facility] [address] [place], [address] MCH (RBC) [Entitic mass] 29.0 pg Normal 27.0-32.0 [facility] Comment on above: Performed By: #### L 501.4020, L500.2500, L100.0100, L300.8000, L503.6620 ####[facility] [address] [place], [address] MCHC (RBC) [Mass/Vol] 31.9 g/dL Low 32-36 [facility] Comment on above: Performed By: #### L 501.4020, L500.2500, L100.0100, L300.8000, L503.6620 ####[facility] [address] [place], [address] MCV (RBC) [Entitic vol] 90.9 fL Normal 80-94 [facility] Comment on above: Performed By: #### L 501.4020, L500.2500, L100.0100, L300.8000, L503.6620 ####[facility] [address] [place], [address] Monocytes/100 WBC (Bld) 7.1 % Normal 0-10 [facility] Comment on above: Performed By: #### L 501.4020, L500.2500, L100.0100, L300.8000, L503.6620 ####[facility] [address] [place], [address] Neutrophils/100 WBC (Bld) 88.0 % High 47-70 [facility] Comment on above: Performed By: #### L 501.4020, L500.2500, L100.0100, L300.8000, L503.6620 ####[facility] [address] [place], [address] Nucleated RBC (Bld) [#/Vol] 0 10*3/uL Normal 0-5 [facility] Comment on above: Performed By: #### L 501.4020, L500.2500, L100.0100, L300.8000, L503.6620 ####[facility] [address] [place], [address] Platelet mean volume (Bld) [Entitic vol] 9.3 fL Normal 6.2-12.0 [facility] Comment on above: Performed By: #### L 501.4020, L500.2500, L100.0100, L300.8000, L503.6620 ####[facility] [address] [place], [address] Platelets (Bld) [#/Vol] 377 10*3/uL Normal 150-450 [facility] Comment on above: Performed By: #### L 501.4020, L500.2500, L100.0100, L300.8000, L503.6620 ####[facility] [address] [place], [address] RBC (Bld) [#/Vol] 4.73 10*6/uL Normal 4.6-6.2 [facility] Comment on above: Performed By: #### L 501.4020, L500.2500, L100.0100, L300.8000, L503.6620 ####[facility] [address] [place], [address] RDW SD 51.9 fl High 35.1-43.9 [facility] Comment on above: Performed By: #### L 501.4020, L500.2500, L100.0100, L300.8000, L503.6620 ####[facility] [address] [place], [address] WBC (Bld) [#/Vol] 17.6 10*3/uL High 4.4-11.0 [facility] Comment on above: Performed By: #### L 501.4020, L500.2500, L100.0100, L300.8000, L503.6620 ####[facility] [address] [place], [address] [facility] Cont[facility] Normal [facility] Chest 1 View (Portable)on Chest 1 View (Portable) Normal [facility] D-Dimer Quantitative (DVT/PE )on 08-11-2024 D-DIMER QUANT 1.20 FEU/ug/m Invalid Interpretation Code 0.27-0.49 [facility] Comment on above: Result Comment: D-Di azeb ELEVATED (>0.49): Additional studies and clinicalassessments are indicated to conclude diagnosis of:Deep Vein Thrombosis (DVT) or Pulmonary Embolism (PE)RESULTS CALLED TO ESTELA LANE 08/11/24 1638 KarenWandra.REPORT READ BACK BY . SAME Performed By: #### L 501.4020, L500.2500, L100.0100, L300.8000, L503.6620 ####[facility] [address] [place], [address] Emergency Department Summary on 08-11-2024 Emergency Department Summary Normal [facility] L501.4020on 08-11-2024 TROPONIN-I HS 7 pg/mL Normal 3.0-78.0 [facility] Comment on above: Order Comment: 'TROP ' Serial specimen #1, #2 or #3: 1 Result Comment: Plea se Note: New Test Units and Gender Specific Reference Ranges. For more information see Policy Stat Procedure [place] High Sensitivity Troponin (TNIH) and attachments. Performed By: #### L 501.4020, L500.2500, L100.0100, L300.8000, L503.6620 ####[facility] [address] [place], [address] M100.678on 08-11-2024 M100.678 Pending SARS-CoV-2 (COVID 19) Negative INFLUENZA A Negative INFLUENZA B Negative RSV PCR Negative Normal [facility] Comment on above: Performed By: #### M 100.678 ####[facility] [address] [place], [address] Urinalysis, Completeon 12-10 -2024 AMORPHOUS 2+ PHOS Normal [facility] Comment on above: Order Comment: JUAN MIGUEL CTOR TO SPECIFY Performed By: #### L 400.0001 ####[facility] [address] [place], [address] BACTERIA 1+ /hpf Normal None Seen [facility] Comment on above: Order Comment: JUAN MIGUEL CTOR TO SPECIFY Performed By: #### L 400.0001 ####[facility] [address] [place], [address] EPI,SQUAMOUS 0 SEEN Normal 0-5 [facility] Comment on above: Order Comment: JUAN MIGUEL CTOR TO SPECIFY Performed By: #### L 400.0001 ####[facility] [address] [place], [address] Mucus Ql (Urine sed) 0 SEEN Normal [facility] Comment on above: Order Comment: JUAN MIGUEL CTOR TO SPECIFY Performed By: #### L 400.0001 ####[facility] [address] [place], [address] RBC 0 SEEN Normal [address] [place] [address] Comment on above: Order Comment: JUAN MIGUEL CTOR TO SPECIFY Performed By: #### L 400.0001 ####[facility] [address] [place], [address] WBC 0 SEEN Normal 0-[address] [place] [address] Comment on above: Order Comment: JUAN MIGUEL CTOR TO SPECIFY Performed By: #### L 400.0001 ####[facility] [address] [place], [address] CNPMaria Eugenia [facility] CHIO DENT JR. ([id number]) 1960 M Date Time Provider Department 08/10/24 ALEXEY MAYBERRY During your visit today, we recorded the following information about you: Yandelleonie PhyllisCINTHIA 08/10/2024 3:10 PM Signed Fax recc'd from [facility]. Pt was seen in TCU and transferred to [facility] for rehab care in hopes to be discharged home. He will be followed there by their facility provider. Allergies As of Date: 08/10/2024 Noted Allergy Reaction ASPIRIN 06/21/2010 8 - [...] ragweed (April, May and June) Date Reviewed: 06/23/2024 Reviewed by: Molly Maddox APRN.FELLING MACHINE OPERATOR - Fully Assessed Reason for Visit: Clinical Update [1735] Prescriptions as of 08/10/2024 - albuterol (PROVENTIL) 2.5 mg /3 mL (0.083 %) nebulizer solution Use 3 mL via nebulizer every 4 hours as needed for wheezing/shortness of breath. - atorvastatin (LIPITOR) 20 mg tablet Take 1 tablet by mouth daily at bedtime. - gabapentin (NEURONTIN) 300 mg capsule 1 capsule by ORAL/FEEDING TUBE route every 8 hours for 7 days. - acetaminophen (TYLENOL) 650 mg/20.3 mL soln 20.3 mL by ORAL/FEEDING TUBE route every 6 hours as needed for pain or fever (specify temp.) (Temp greater than 38.3). Do not exceed 5 doses in 24 hours. - budesonide (PULMICORT) 0.5 mg/2 mL nebulizer solution Use 2 mL via nebulizer two times a day. - dextrose (TRUEPLUS) 15 gram/32 mL oral gel Take 32 mL by mouth as needed. - glucagon 1 mg/mL injection Inject 1 mg intramuscularly as needed. - dextrose 10% Inject 125 mL intravenously as needed (low blood sugar). - enoxaparin (LOVENOX) 40 mg/0.4 mL Inject 0.4 mL subcutaneously every 24 hours. - ipratropium-albuterol (DUONEB) 0.5 mg-3 mg(2.5 mg base)/3 mL nebu Inhale 3 mL as instructed every 4 hours. - lidocaine (SALONPAS) 4 % patch Apply 1 Patch as directed once daily. - polyethylene glycol 3350 17 gram packet Take 1 Packet by mouth two times a day. Dissolve dose in 4 - 8 ounces of liquid and take as directed. - senna-docusate (SENNA-S) 8.6-50 mg per tablet 2 tablets by ORAL/FEEDING TUBE route two times a day. - montelukast (SINGULAIR) 10 mg tablet Take 1 tablet by mouth once daily. Problem List As Of Date 08/10/2024 Noted Resolved History of [place] (myocardial infarction) [I25.2] 06/02/2008 03/21/2017 Hyperlipidemia [E78.5] Asthma [J45.909] COPD exacerbation (HCC) [J44.1] Former smoker [Z87.891] 06/02/2024 Hypertension [I10] Erectile dysfunction [N52.9] 11/09/2015 GERD (gastroesophageal reflux disease) [K21.9] 11/09/2015 Nasal polyposis [J33.9] 11/09/2015 Hematuria [R31.9] 09/27/2011 11/09/2015 Lesion of bladder [N32.9] 09/27/2011 11/09/2015 Coronary artery disease involving [place] heart *03/21/2017 Seasonal allergic rhinitis due to fungal spores*01/14/2018 Allergic rhinitis due to dust mite [J30.89] 01/14/2018 Seasonal allergic rhinitis due to pollen [J30.1]01/14/2018 Bronchiectasis with acute exacerbation (HCC) [J*07/12/2021 Dysphagia [R13.10] 01/18/2022 Current smoker [F17.200] 06/02/2024 Other osteoporosis without current pathological*06/02/2024 Cardiac arrest (HCC) [I46.9] 06/04/2024 Acute on chronic respiratory failure with hypox*06/04/2024 Traumatic pneumothorax [S27.0XXA] 06/04/2024 Pressure injury of deep tissue of sacral region*06/11/2024 Pneumothorax on right [J93.9] 06/15/2024 Multiple closed fractures of ribs of right side*06/15/2024 Respiratory arrest (HCC) [R09.2] 06/15/2024 Subcutaneous emphysema (HCC) [T79.7XXA] 06/15/2024 Leukocytosis [D72.829] 06/15/2024 Bacterial pneumonia [J15.9] 06/15/2024 Type 2 diabetes mellitus without complication, *06/15/2024 Hypernatremia [E87.0] 06/15/2024 Malnutrition of moderate degree (HCC) [E44.0] 06/16/2024 Subarachnoid hemorrhage (HCC) [I60.9] 06/17/2024 Quadriparesis (HCC) [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, [address] CA,Total 8.7 mg/dL Normal 8.5-10.1 [facility] Comment on above: Performed By: #### L 500.2500, L501.2300, L100.0600, L501.5200 ####[facility] [address] [place], [address] Chloride [Moles/Vol] 105 mmol/L Normal 98-107 [facility] Comment on above: Performed By: #### L 500.2500, L501.2300, L100.0600, L501.5200 ####[facility] [address] [place], [address] CO2 [Moles/Vol] 28.0 mmol/L Normal 21.0-32.0 [facility] Comment on above: Performed By: #### L 500.2500, L501.2300, L100.0600, L501.5200 ####[facility] [address] [place], [address] Creatinine [Mass/Vol] 0.47 mg/dL Low 0.70-1.30 [facility] Comment on above: Result Comment: The validity of the calculated GFR GFRAA in patients over70 years has not been determined. Clinical correlation isessential. Performed By: #### L 500.2500, L501.2300, L100.0600, L501.5200 ####[facility] [address] [place], [address] ECRCL 143.37 ml/min Normal [facility] Comment on above: Performed By: #### L 500.2500, L501.2300, L100.0600, L501.5200 ####[facility] [address] [place], [address] EST GFR - AA 230 mL/min Normal >60 [facility] Comment on above: Result Comment: Afri can Guamanian GFR Calc Performed By: #### L 500.2500, L501.2300, L100.0600, L501.5200 ####[facility] [address] [place], [address] GAP 7 Normal 5-15 [facility] Comment on above: Performed By: #### L 500.2500, L501.2300, L100.0600, L501.5200 ####[facility] [address] [place], [address] GFR/1.73 sq M.predicted among non-blacks MDRD (S/P/Bld) [Vol rate/Area] 190 mL/min/{1.73_m2} Normal >60 [facility] Comment on above: Result Comment: Non- GFR Calc Performed By: #### L 500.2500, L501.2300, L100.0600, L501.5200 ####[facility] [address] [place], [address] Glucose [Mass/Vol] 89 mg/dL Normal 74-106 [facility] Comment on above: Performed By: #### L 500.2500, L501.2300, L100.0600, L501.5200 ####[facility] [address] [place], [address] Potassium [Moles/Vol] 3.4 mmol/L Low 3.5-5.1 [facility] Comment on above: Performed By: #### L 500.2500, L501.2300, L100.0600, L501.5200 ####[facility] [address] [place], [address] Sodium [Moles/Vol] 140 mmol/L Normal 136-145 [facility] Comment on above: Performed By: #### L 500.2500, L501.2300, L100.0600, L501.5200 ####[facility] [address] [place], [address] Urea nitrogen [Mass/Vol] 21 mg/dL High 7-18 [facility] Comment on above: Performed By: #### L 500.2500, L501.2300, L100.0600, L501.5200 ####[facility] [address] [place], [address] HH, Hemoglobin AND Hematocri ton 08-09-2024 Hematocrit (Bld) [Volume fraction] 37.3 % Low 40-54 [facility] Comment on above: Performed By: #### L 500.2500, L501.2300, L100.0600, L501.5200 ####[facility] [address] [place], [address] Hemoglobin (Bld) [Mass/Vol] 11.5 g/dL Low 13.0-16.5 [facility] Comment on above: Performed By: #### L 500.2500, L501.2300, L100.0600, L501.5200 ####[facility] [address] [place], [address] Magnesiumon 08-09-2024 Magnesium [Mass/Vol] 2.1 mg/dL Normal 1.6-2.6 [facility] Comment on above: Performed By: #### L 500.2500, L501.2300, L100.0600, L501.5200 ####[facility] [address] [place], [address] Phosphoruson 08-09-2024 Phosphate [Mass/Vol] 3.8 mg/dL Normal 2.5-4.9 [facility] Comment on above: Performed By: #### L 500.2500, L501.2300, L100.0600, L501.5200 ####[facility] [address] [place], [address] 12 Lead EKGon 08-07-2024 12 Lead EKG Normal [facility] Respiratory Cultureon 2023 RESPC Normal [facility] Comment on above: Performed By: #### M 100.2000, M100.2400 ####[facility] [address] [place], [address] BNP,B-Type NATRIURETIC PEPTI Enma 08-05-2024 Natriuretic peptide B (Bld) [Mass/Vol] 32.7 pg/mL Normal 0-100 [facility] Comment on above: Performed By: #### L 503.6620 ####[facility] [address] [place], [address] COVID 19 AG RAPID (MARION Casey)on 12-04-2024 SARS-CoV-2 (COVID-19) RNA MANJU+probe Ql (Unsp spec) Normal [facility] Comment on above: Performed By: #### M 100.505 ####[facility] [address] [place], [address] Chest 1 View (Portable)on Chest 1 View (Portable) Normal [facility] RESPIRATORY PANEL MOLECULARo n 08-05-2024 RP PANEL Normal [facility] Comment on above: Performed By: #### M 100.638 ####[facility] [address] [place], [address] Gram Stainon 08-04-2024 GS Obtain form trach suctioning. Gram Stain Rare Gram positive rods 1+ White Blood Cells Normal [facility] Comment on above: Performed By: #### M 100.2000, M100.2400 ####[facility] [address] [place], [address] Bedside Glucoseon 08-03-2024 FINGERSTICK GLU 122 mg/dL High 74-106 [facility] Comment on above: Result Comment: HEIDY MABRY OF PATIENT CARE PER NURSING PROTOCOL Performed By: #### L 501.080 ####[facility] [address] [place], [address] CBC W/Diff, Automatedon Absolute Lymph 0.89 X10 3/uL Normal 0.83-4.51 [facility] Comment on above: Performed By: #### L 100.0100 ####[facility] [address] [place], [address] Absolute Neut 9.3 X10 3/uL High 2.0-7.7 [facility] Comment on above: Performed By: #### L 100.0100 ####[facility] [address] [place], [address] Basophils/100 WBC (Bld) 0.5 % Normal 0-1 [facility] Comment on above: Performed By: #### L 100.0100 ####[facility] [address] [place], [address] Eosinophils/100 WBC (Bld) 3.1 % Normal 0-5 [facility] Comment on above: Performed By: #### L 100.0100 ####[facility] [address] [place], [address] Erythrocyte distribution width (RBC) [Ratio] 15.0 % High 11.6-14.6 [facility] Comment on above: Performed By: #### L 100.0100 ####[facility] [address] [place], [address] Hematocrit (Bld) [Volume fraction] 38.0 % Low 40-54 [facility] Comment on above: Performed By: #### L 100.0100 ####[facility] [address] [place], [address] Hemoglobin (Bld) [Mass/Vol] 11.9 g/dL Low 13.0-16.5 [facility] Comment on above: Performed By: #### L 100.0100 ####[facility] [address] [place], [address] IG% 1.500 High 0.0-0.9 [facility] Comment on above: Result Comment: IG% - Immature Granulocytes (promyelocytes, myelocytes andmetamyelocytes) > 1% indicates that a LEFT SHIFT is Present. Performed By: #### L 100.0100 ####[facility] [address] [place], [address] Lymphocytes/100 WBC (Bld) 7.6 % Low 19-41 [facility] Comment on above: Performed By: #### L 100.0100 ####[facility] [address] [place], [address] MCH (RBC) [Entitic mass] 29.0 pg Normal 27.0-32.0 [facility] Comment on above: Performed By: #### L 100.0100 ####[facility] [address] [place], [address] MCHC (RBC) [Mass/Vol] 31.3 g/dL Low 32-36 [facility] Comment on above: Performed By: #### L 100.0100 ####[facility] [address] [place], [address] MCV (RBC) [Entitic vol] 92.7 fL Normal 80-94 [facility] Comment on above: Performed By: #### L 100.0100 ####[facility] [address] [place], [address] Monocytes/100 WBC (Bld) 7.8 % Normal 0-10 [facility] Comment on above: Performed By: #### L 100.0100 ####[facility] [address] [place], [address] Neutrophils/100 WBC (Bld) 79.5 % High 47-70 [facility] Comment on above: Performed By: #### L 100.0100 ####[facility] [address] [place], [address] Nucleated RBC (Bld) [#/Vol] 0 10*3/uL Normal 0-5 [facility] Comment on above: Performed By: #### L 100.0100 ####[facility] [address] [place], [address] Platelet mean volume (Bld) [Entitic vol] 9.4 fL Normal 6.2-12.0 [facility] Comment on above: Performed By: #### L 100.0100 ####[facility] [address] [place], [address] Platelets (Bld) [#/Vol] 253 10*3/uL Normal 150-450 [facility] Comment on above: Performed By: #### L 100.0100 ####[facility] [address] [place], [address] RBC (Bld) [#/Vol] 4.10 10*6/uL Low 4.6-6.2 [facility] Comment on above: Performed By: #### L 100.0100 ####[facility] [address] [place], [address] RDW SD 51.2 fl High 35.1-43.9 [facility] Comment on above: Performed By: #### L 100.0100 ####[facility] [address] [place], [address] WBC (Bld) [#/Vol] 11.8 10*3/uL High 4.4-11.0 [facility] Comment on above: Performed By: #### L 100.0100 ####[facility] [address] [place], [address] Chest PA and Lateralon 08-03 Chest PA and Lateral Normal [facility] Basic Metabolic Profile (BMP )on 07-30-2024 BUN/CRE 36.8 RATIO High 10-20 [facility] Comment on above: Performed By: #### L 500.2500, L100.0500 ####[facility] [address] [place], [address] CA,Total 8.8 mg/dL Normal 8.5-10.1 [facility] Comment on above: Performed By: #### L 500.2500, L100.0500 ####[facility] [address] [place], [address] Chloride [Moles/Vol] 103 mmol/L Normal 98-107 [facility] Comment on above: Performed By: #### L 500.2500, L100.0500 ####[facility] [address] [place], [address] CO2 [Moles/Vol] 28.0 mmol/L Normal 21.0-32.0 [facility] Comment on above: Performed By: #### L 500.2500, L100.0500 ####[facility] [address] [place], [address] Creatinine [Mass/Vol] 0.49 mg/dL Low 0.70-1.30 [facility] Comment on above: Result Comment: The validity of the calculated GFR GFRAA in patients over70 years has not been determined. Clinical correlation isessential. Performed By: #### L 500.2500, L100.0500 ####[facility] [address] [place], [address] ECRCL 137.07 ml/min Normal [facility] Comment on above: Performed By: #### L 500.2500, L100.0500 ####[facility] [address] [place], [address] EST GFR - AA 222 mL/min Normal >60 [facility] Comment on above: Result Comment: Afri can Guamanian GFR Calc Performed By: #### L 500.2500, L100.0500 ####[facility] [address] [place], [address] GAP 7 Normal 5-15 [facility] Comment on above: Performed By: #### L 500.2500, L100.0500 ####[facility] [address] [place], [address] GFR/1.73 sq M.predicted among non-blacks MDRD (S/P/Bld) [Vol rate/Area] 183 mL/min/{1.73_m2} Normal >60 [facility] Comment on above: Result Comment: Non- GFR Calc Performed By: #### L 500.2500, L100.0500 ####[facility] [address] [place], [address] Glucose [Mass/Vol] 111 mg/dL High 74-106 [facility] Comment on above: Result Comment: Fast ing Glucose result from 100 to 125 mg/dLsuggests IMPAIRED HOMEOSTASIS per A.D.A. criteria. Performed By: #### L 500.2500, L100.0500 ####[facility] [address] [place], [address] Potassium [Moles/Vol] 4.0 mmol/L Normal 3.5-5.1 [facility] Comment on above: Performed By: #### L 500.2500, L100.0500 ####[facility] [address] [place], [address] Sodium [Moles/Vol] 138 mmol/L Normal 136-145 [facility] Comment on above: Performed By: #### L 500.2500, L100.0500 ####[facility] [address] [place], [address] Urea nitrogen [Mass/Vol] 18 mg/dL Normal 7-18 [facility] Comment on above: Performed By: #### L 500.2500, L100.0500 ####[facility] [address] [place], [address] CBC-Complete Blood Cnt No Di ffon 07-30-2024 Erythrocyte distribution width (RBC) [Ratio] 14.6 % Normal 11.6-14.6 [facility] [place] Comment on above: Performed By: #### L 500.2500, L100.0500 ####[facility] [address] [place], [address] Hematocrit (Bld) [Volume fraction] 36.5 % Low 40-54 [facility] [place] Comment on above: Performed By: #### L 500.2500, L100.0500 ####[facility] [address] [place], [address] Hemoglobin (Bld) [Mass/Vol] 11.1 g/dL Low 13.0-16.5 [facility] Comment on above: Performed By: #### L 500.2500, L100.0500 ####[facility] [address] [place], [address] MCH (RBC) [Entitic mass] 28.1 pg Normal 27.0-32.0 [facility] Comment on above: Performed By: #### L 500.2500, L100.0500 ####[facility] [address] [place], [address] MCHC (RBC) [Mass/Vol] 30.4 g/dL Low 32-36 [facility] Comment on above: Performed By: #### L 500.2500, L100.0500 ####[facility] [address] [place], [address] MCV (RBC) [Entitic vol] 92.4 fL Normal 80-94 [facility] [place] Comment on above: Performed By: #### L 500.2500, L100.0500 ####[facility] [address] [place], [address] Platelet mean volume (Bld) [Entitic vol] 9.5 fL Normal 6.2-12.0 [facility] Comment on above: Performed By: #### L 500.2500, L100.0500 ####[facility] [address] [place], [address] Platelets (Bld) [#/Vol] 270 10*3/uL Normal 150-450 [facility] Comment on above: Performed By: #### L 500.2500, L100.0500 ####[facility] [address] [place], [address] RBC (Bld) [#/Vol] 3.95 10*6/uL Low 4.6-6.2 [facility] Comment on above: Performed By: #### L 500.2500, L100.0500 ####[facility] [address] [place], [address] RDW SD 50.0 fl High 35.1-43.9 [facility] Comment on above: Performed By: #### L 500.2500, L100.0500 ####[facility] [address] [place], [address] WBC (Bld) [#/Vol] 8.8 10*3/uL Normal 4.4-11.0 [facility] Comment on above: Performed By: #### L 500.2500, L100.0500 ####[facility] [address] [place], [address] Bedside Glucoseon 07-28-2024 FINGERSTICK GLU 91 mg/dL Normal 74-106 [facility] Comment on above: Result Comment: HEIDY MABRY OF PATIENT CARE PER NURSING PROTOCOL Performed By: #### L 501.080 ####[facility] [address] [place], [address] Culture, Anaerobic Any Sourc ghislaine 07-27-2024 CUAN peg tube site draina ge No anaerobic bacteria isolated. Normal [facility] Comment on above: Performed By: #### M 100.4001, M100.1999, M100.3000 ####[facility] [address] [place], [address] Wound Cultureon 07-26-2024 WC peg tube site draina ge Bailee albicans Amount Growth 1+ Normal [facility] Comment on above: Performed By: #### M 100.4001, M100.2000, M100.3000 ####[facility] [address] [place], [address] Modified Barium Swallow Stud yon 07-24-2024 Modified Barium Swallow Study Normal [facility] Stool Occult Blood iFOBon STOB Normal [facility] Comment on above: Performed By: #### M 100.7900 ####[facility] [address] [place], [address] Abdomen Limitedon 07-23-2024 Abdomen Limited Normal [facility] Basic Metabolic Profile (BMP )on 07-23-2024 BUN/CRE 25.0 RATIO High 10-20 [facility] Comment on above: Performed By: #### L 503.6030, L503.6550, L500.2500, L100.0500 ####[facility] [address] [place], [address] CA,Total 8.6 mg/dL Normal 8.5-10.1 [facility] Comment on above: Performed By: #### L 503.6030, L503.6550, L500.2500, L100.0500 ####[facility] [address] [place], [address] Chloride [Moles/Vol] 100 mmol/L Normal 98-107 [facility] Comment on above: Performed By: #### L 503.6030, L503.6550, L500.2500, L100.0500 ####[facility] [address] [place], [address] CO2 [Moles/Vol] 31.0 mmol/L Normal 21.0-32.0 [facility] Comment on above: Performed By: #### L 503.6030, L503.6550, L500.2500, L100.0500 ####[facility] [address] [place], [address] Creatinine [Mass/Vol] 0.56 mg/dL Low 0.70-1.30 [facility] Comment on above: Result Comment: The validity of the calculated GFR GFRAA in patients over70 years has not been determined. Clinical correlation isessential. Performed By: #### L 503.6030, L503.6550, L500.2500, L100.0500 ####[facility] [address] [place], [address] ECRCL 110.85 ml/min Normal [facility] Comment on above: Performed By: #### L 503.6030, L503.6550, L500.2500, L100.0500 ####[facility] [address] [place], [address] EST GFR - AA 189 mL/min Normal >60 [facility] Comment on above: Result Comment: Afri can Guamanian GFR Calc Performed By: #### L 503.6030, L503.6550, L500.2500, L100.0500 ####[facility] [address] [place], [address] GAP 5 Normal 5-15 [facility] Comment on above: Performed By: #### L 503.6030, L503.6550, L500.2500, L100.0500 ####[facility] [address] [place], [address] GFR/1.73 sq M.predicted among non-blacks MDRD (S/P/Bld) [Vol rate/Area] 156 mL/min/{1.73_m2} Normal >60 [facility] Comment on above: Result Comment: Non- GFR Calc Performed By: #### L 503.6030, L503.6550, L500.2500, L100.0500 ####[facility] [address] [place], [address] Glucose [Mass/Vol] 148 mg/dL High 74-106 [facility] Comment on above: Result Comment: Fast ing Glucose result greater than or equal to 126 mg/dLsuggests DIABETES MELLITUS per A.D.A. criteria. Performed By: #### L 503.6030, L503.6550, L500.2500, L100.0500 ####[facility] [address] [place], [address] Potassium [Moles/Vol] 4.2 mmol/L Normal 3.5-5.1 [facility] Comment on above: Result Comment: Slig ht Hemolysis, Result may be falsely increased. Performed By: #### L 503.6030, L503.6550, L500.2500, L100.0500 ####[facility] [address] [place], [address] Sodium [Moles/Vol] 136 mmol/L Normal 136-145 [facility] Comment on above: Performed By: #### L 503.6030, L503.6550, L500.2500, L100.0500 ####[facility] [address] [place], [address] Urea nitrogen [Mass/Vol] 14 mg/dL Normal 7-18 [facility] Comment on above: Performed By: #### L 503.6030, L503.6550, L500.2500, L100.0500 ####[facility] [address] [place], [address] CBC-Complete Blood Cnt No Di ffon 07-23-2024 Erythrocyte distribution width (RBC) [Ratio] 14.9 % High 11.6-14.6 [facility] Comment on above: Performed By: #### L 503.6030, L503.6550, L500.2500, L100.0500 ####[facility] [address] [place], [address] Hematocrit (Bld) [Volume fraction] 35.0 % Low 40-54 [facility] Comment on above: Performed By: #### L 503.6030, L503.6550, L500.2500, L100.0500 ####[facility] [address] [place], [address] Hemoglobin (Bld) [Mass/Vol] 10.8 g/dL Low 13.0-16.5 [facility] Comment on above: Performed By: #### L 503.6030, L503.6550, L500.2500, L100.0500 ####[facility] [address] [place], [address] MCH (RBC) [Entitic mass] 28.7 pg Normal 27.0-32.0 [facility] Comment on above: Performed By: #### L 503.6030, L503.6550, L500.2500, L100.0500 ####[facility] [address] [place], [address] MCHC (RBC) [Mass/Vol] 30.9 g/dL Low 32-36 [facility] Comment on above: Performed By: #### L 503.6030, L503.6550, L500.2500, L100.0500 ####[facility] [address] [place], [address] MCV (RBC) [Entitic vol] 93.1 fL Normal 80-94 [facility] [place] Comment on above: Performed By: #### L 503.6030, L503.6550, L500.2500, L100.0500 ####[facility] [address] [place], [address] Platelet mean volume (Bld) [Entitic vol] 11.1 fL Normal 6.2-12.0 [facility] Comment on above: Performed By: #### L 503.6030, L503.6550, L500.2500, L100.0500 ####[facility] [address] [place], [address] Platelets (Bld) [#/Vol] 297 10*3/uL Normal 150-450 [facility] Comment on above: Performed By: #### L 503.6030, L503.6550, L500.2500, L100.0500 ####[facility] [address] [place], [address] RBC (Bld) [#/Vol] 3.76 10*6/uL Low 4.6-6.2 [facility] Comment on above: Performed By: #### L 503.6030, L503.6550, L500.2500, L100.0500 ####[facility] [address] [place], [address] RDW SD 51.6 fl High 35.1-43.9 [facility] Comment on above: Performed By: #### L 503.6030, L503.6550, L500.2500, L100.0500 ####[facility] [address] [place], [address] WBC (Bld) [#/Vol] 10.1 10*3/uL Normal 4.4-11.0 [facility] Comment on above: Performed By: #### L 503.6030, L503.6550, L500.2500, L100.0500 ####[facility] [address] [place], [address] EGD Reporton 07-23-2024 EGD Report Normal [facility] Ferritinon 07-23-2024 Ferritin [Mass/Vol] 107 ng/mL Normal 26-388 [facility] Comment on above: Performed By: #### L 503.6030, L503.6550, L500.2500, L100.0500 ####[facility] [address] [place], [address] Gram Stainon 07-23-2024 GS peg tube site draina ge Gram Stain 2+ White Blood Cells 2+ Red Blood Cells Rare Gram positive cocci Normal [facility] Comment on above: Performed By: #### M 100.4001, M100.2000, M100.3000 ####[facility] [address] [place], [address] Iron+Iron Binding Capacityon 07-23-2024 Iron [Mass/Vol] 39 ug/dL Low 65-175 [facility] Comment on above: Result Comment: Slig ht Hemolysis, Result may be falsely increased. Performed By: #### L 503.6030, L503.6550, L500.2500, L100.0500 ####[facility] [address] [place], [address] IRON SATURATION 16.8 Normal 15.0-55.0 [facility] Comment on above: Performed By: #### L 503.6030, L503.6550, L500.2500, L100.0500 ####[facility] [address] [place], [address] TIBC 232 ug/dL Low 250-450 [facility] Comment on above: Performed By: #### L 503.6030, L503.6550, L500.2500, L100.0500 ####[facility] [address] [place], [address] M R Staph Aureus DNA by PCRo n 07-23-2024 MRSA DNA ASSAY Negative Normal Negative [facility] Comment on above: Performed By: #### L 8200.1000 ####[facility] [address] [place], [address] MR/CON.PCM.GIon 07-22-2024 MR/CON.PCM.GI Normal [facility] MR/POSTOP.ANEon 07-22-2024 MR/POSTOP.ANE Normal [facility] MR/JBEDTFVZ6ef 07-22-2024 MR/POSTOPAN2 Normal [facility] Bedside Glucoseon 07-20-2024 FINGERSTICK GLU 108 mg/dL High 74-106 [facility] Comment on above: Result Comment: HEIDY HUAENT OF PATIENT CARE PER NURSING PROTOCOL Performed By: #### L 501.080 ####[facility] [address] [place], [address] FINGERSTICK GLU 104 mg/dL Normal 74-106 [facility] Comment on above: Result Comment: HEIDY GEMENT OF PATIENT CARE PER NURSING PROTOCOL Performed By: #### L 501.080 ####[facility] [address] [place], [address] Bedside Glucoseon 07-19-2024 FINGERSTICK GLU 113 mg/dL High 74-106 [facility] Comment on above: Result Comment: HEIDY GEMENT OF PATIENT CARE PER NURSING PROTOCOL Performed By: #### L 501.080 ####[facility] [address] [place], [address] FINGERSTICK GLU 106 mg/dL Normal 74-106 [facility] Comment on above: Result Comment: HEIDY GEMENT OF PATIENT CARE PER NURSING PROTOCOL Performed By: #### L 501.080 ####[facility] [address] [place], [address] FINGERSTICK GLU 118 mg/dL High 74-106 [facility] Comment on above: Result Comment: HEIDY GEMENT OF PATIENT CARE PER NURSING PROTOCOL Performed By: #### L 501.080 ####[facility] [address] [place], [address] FINGERSTICK GLU 116 mg/dL High 74-106 [facility] Comment on above: Result Comment: HEIDY GEMENT OF PATIENT CARE PER NURSING PROTOCOL Performed By: #### L 501.080 ####[facility] [address] [place], [address] Urine Cultureon 07-19-2024 URC Culture exhibits no growth. Normal [facility] Comment on above: Performed By: #### M 100.2200 ####[facility] [address] [place], [address] Bedside Glucoseon 07-18-2024 FINGERSTICK GLU 121 mg/dL High 74-106 [facility] Comment on above: Result Comment: HEIDY GEMENT OF PATIENT CARE PER NURSING PROTOCOL Performed By: #### L 501.080 ####[facility] [address] [place], [address] FINGERSTICK GLU 121 mg/dL High 74-106 [facility] Comment on above: Result Comment: HEIDY GEMENT OF PATIENT CARE PER NURSING PROTOCOL Performed By: #### L 501.080 ####[facility] [address] [place], [address] FINGERSTICK GLU 140 mg/dL High 74-106 [facility] Comment on above: Result Comment: HEIDY GEMENT OF PATIENT CARE PER NURSING PROTOCOL Performed By: #### L 501.080 ####[facility] [address] [place], [address] CBC W/Diff, Automatedon 11- Absolute Lymph 0.95 X10 3/uL Normal 0.83-4.51 [facility] Comment on above: Performed By: #### L 501.5200, L100.0100, L500.4050, L501.2300 ####[facility] [address] [place], [address] Absolute Neut 6.6 X10 3/uL Normal 2.0-7.7 [facility] Comment on above: Performed By: #### L 501.5200, L100.0100, L500.4050, L501.2300 ####[facility] [address] [place], [address] Basophils/100 WBC (Bld) 0.6 % Normal 0-1 [facility] [place] Comment on above: Performed By: #### L 501.5200, L100.0100, L500.4050, L501.2300 ####[facility] [address] [place], [address] Eosinophils/100 WBC (Bld) 3.3 % Normal 0-5 [facility] Comment on above: Performed By: #### L 501.5200, L100.0100, L500.4050, L501.2300 ####[facility] [address] [place], [address] Erythrocyte distribution width (RBC) [Ratio] 15.1 % High 11.6-14.6 [facility] Comment on above: Performed By: #### L 501.5200, L100.0100, L500.4050, L501.2300 ####[facility] [address] [place], [address] Hematocrit (Bld) [Volume fraction] 36.1 % Low 40-54 [facility] Comment on above: Performed By: #### L 501.5200, L100.0100, L500.4050, L501.2300 ####[facility] [address] [place], [address] Hemoglobin (Bld) [Mass/Vol] 11.4 g/dL Low 13.0-16.5 [facility] Comment on above: Performed By: #### L 501.5200, L100.0100, L500.4050, L501.2300 ####[facility] [address] [place], [address] IG% 1.500 High 0.0-0.9 [facility] Comment on above: Result Comment: IG% - Immature Granulocytes (promyelocytes, myelocytes andmetamyelocytes) > 1% indicates that a LEFT SHIFT is Present. Performed By: #### L 501.5200, L100.0100, L500.4050, L501.2300 ####[facility] [address] [place], [address] Lymphocytes/100 WBC (Bld) 10.9 % Low 19-41 [facility] Comment on above: Performed By: #### L 501.5200, L100.0100, L500.4050, L501.2300 ####[facility] [address] [place], [address] MCH (RBC) [Entitic mass] 29.2 pg Normal 27.0-32.0 [facility] Comment on above: Performed By: #### L 501.5200, L100.0100, L500.4050, L501.2300 ####[facility] [address] [place], [address] MCHC (RBC) [Mass/Vol] 31.6 g/dL Low 32-36 [facility] Comment on above: Performed By: #### L 501.5200, L100.0100, L500.4050, L501.2300 ####[facility] [address] [place], [address] MCV (RBC) [Entitic vol] 92.3 fL Normal 80-94 [facility] Comment on above: Performed By: #### L 501.5200, L100.0100, L500.4050, L501.2300 ####[facility] [address] [place], [address] Monocytes/100 WBC (Bld) 8.4 % Normal 0-10 [facility] Comment on above: Performed By: #### L 501.5200, L100.0100, L500.4050, L501.2300 ####[facility] [address] [place], [address] Neutrophils/100 WBC (Bld) 75.3 % High 47-70 [facility] Comment on above: Performed By: #### L 501.5200, L100.0100, L500.4050, L501.2300 ####[facility] [address] [place], [address] Nucleated RBC (Bld) [#/Vol] 0 10*3/uL Normal 0-5 [facility] Comment on above: Performed By: #### L 501.5200, L100.0100, L500.4050, L501.2300 ####[facility] [address] [place], [address] Platelet mean volume (Bld) [Entitic vol] 11.1 fL Normal 6.2-12.0 [facility] Comment on above: Performed By: #### L 501.5200, L100.0100, L500.4050, L501.2300 ####[facility] [address] [place], [address] Platelets (Bld) [#/Vol] 269 10*3/uL Normal 150-450 [facility] Comment on above: Performed By: #### L 501.5200, L100.0100, L500.4050, L501.2300 ####[facility] [address] [place], [address] RBC (Bld) [#/Vol] 3.91 10*6/uL Low 4.6-6.2 [facility] Comment on above: Performed By: #### L 501.5200, L100.0100, L500.4050, L501.2300 ####[facility] [address] [place], [address] RDW SD 51.6 fl High 35.1-43.9 [facility] Comment on above: Performed By: #### L 501.5200, L100.0100, L500.4050, L501.2300 ####[facility] [address] [place], [address] WBC (Bld) [#/Vol] 8.7 10*3/uL Normal 4.4-11.0 [facility] Comment on above: Performed By: #### L 501.5200, L100.0100, L500.4050, L501.2300 ####[facility] [address] [place], [address] Comprehensive Metabolic [facility] 07-18-2024 Albumin [Mass/Vol] 2.6 g/dL Low 3.2-5.0 [facility] Comment on above: Performed By: #### L 501.5200, L100.0100, L500.4050, L501.2300 ####[facility] [address] [place], [address] Albumin/Globulin [Mass ratio] 0.7 {ratio} Low 0.9-2.4 [facility] Comment on above: Performed By: #### L 501.5200, L100.0100, L500.4050, L501.2300 ####[facility] [address] [place], [address] ALK P 131 U/L High 45-117 [facility] Comment on above: Performed By: #### L 501.5200, L100.0100, L500.4050, L501.2300 ####[facility] [address] [place], [address] ALT [Catalytic activity/Vol] 26 U/L Normal 16-61 [facility] Comment on above: Performed By: #### L 501.5200, L100.0100, L500.4050, L501.2300 ####[facility] [address] [place], [address] AST [Catalytic activity/Vol] 25 U/L Normal 15-37 [facility] Comment on above: Performed By: #### L 501.5200, L100.0100, L500.4050, L501.2300 ####[facility] [address] [place], [address] Bilirubin [Mass/Vol] 0.40 mg/dL Normal 0.20-1.00 [facility] Comment on above: Result Comment: For patients on eltrombopag therapy, use of Dimension [place] TBIL is not recommended. Performed By: #### L 501.5200, L100.0100, L500.4050, L501.2300 ####[facility] [address] [place], [address] BUN/CRE 34.2 RATIO High 10-20 [facility] Comment on above: Performed By: #### L 501.5200, L100.0100, L500.4050, L501.2300 ####[facility] [address] [place], [address] CA,Total 9.1 mg/dL Normal 8.5-10.1 [facility] Comment on above: Performed By: #### L 501.5200, L100.0100, L500.4050, L501.2300 ####[facility] [address] [place], [address] Chloride [Moles/Vol] 102 mmol/L Normal 98-107 [facility] Comment on above: Performed By: #### L 501.5200, L100.0100, L500.4050, L501.2300 ####[facility] [address] [place], [address] CO2 [Moles/Vol] 32.0 mmol/L Normal 21.0-32.0 [facility] Comment on above: Performed By: #### L 501.5200, L100.0100, L500.4050, L501.2300 ####[facility] [address] [place], [address] Creatinine [Mass/Vol] 0.61 mg/dL Low 0.70-1.30 [facility] Comment on above: Result Comment: The validity of the calculated GFR GFRAA in patients over70 years has not been determined. Clinical correlation isessential. Performed By: #### L 501.5200, L100.0100, L500.4050, L501.2300 ####[facility] [address] [place], [address] ECRCL 102.12 ml/min Normal [facility] Comment on above: Performed By: #### L 501.5200, L100.0100, L500.4050, L501.2300 ####[facility] [address] [place], [address] EST GFR - AA 171 mL/min Normal >60 [facility] Comment on above: Result Comment: Afri can [place]ian GFR Calc Performed By: #### L 501.5200, L100.0100, L500.4050, L501.2300 ####[facility] [address] [place], [address] GAP 4 Low 5-15 [facility] Comment on above: Performed By: #### L 501.5200, L100.0100, L500.4050, L501.2300 ####[facility] [address] [place], [address] GFR/1.73 sq M.predicted among non-blacks MDRD (S/P/Bld) [Vol rate/Area] 141 mL/min/{1.73_m2} Normal >60 [facility] Comment on above: Result Comment: Non- GFR Calc Performed By: #### L 501.5200, L100.0100, L500.4050, L501.2300 ####[facility] [address] [place], [address] Globulin (S) [Mass/Vol] 3.7 g/dL Normal 2.2-4.2 [facility] Comment on above: Performed By: #### L 501.5200, L100.0100, L500.4050, L501.2300 ####[facility] [address] [place], [address] Glucose [Mass/Vol] 133 mg/dL High 74-106 [facility] Comment on above: Result Comment: Fast ing Glucose result greater than or equal to 126 mg/dLsuggests DIABETES MELLITUS per A.D.A. criteria. Performed By: #### L 501.5200, L100.0100, L500.4050, L501.2300 ####[facility] [address] [place], [address] Potassium [Moles/Vol] 4.1 mmol/L Normal 3.5-5.1 [facility] Comment on above: Performed By: #### L 501.5200, L100.0100, L500.4050, L501.2300 ####[facility] [address] [place], [address] Sodium [Moles/Vol] 138 mmol/L Normal 136-145 [facility] Comment on above: Performed By: #### L 501.5200, L100.0100, L500.4050, L501.2300 ####[facility] [address] [place], [address] T PROT 6.3 g/dL Low 6.4-8.2 [facility] Comment on above: Performed By: #### L 501.5200, L100.0100, L500.4050, L501.2300 ####[facility] [address] [place], [address] Urea nitrogen [Mass/Vol] 21 mg/dL High 7-18 [facility] Comment on above: Performed By: #### L 501.5200, L100.0100, L500.4050, L501.2300 ####[facility] [address] [place], [address] Magnesiumon 07-18-2024 Magnesium [Mass/Vol] 2.0 mg/dL Normal 1.6-2.6 [facility] Comment on above: Performed By: #### L 501.5200, L100.0100, L500.4050, L501.2300 ####[facility] [address] [place], [address] Phosphoruson 07-18-2024 Phosphate [Mass/Vol] 4.7 mg/dL Normal 2.5-4.9 [facility] Comment on above: Performed By: #### L 501.5200, L100.0100, L500.4050, L501.2300 ####[facility] [address] [place], [address] Bedside Glucoseon 07-17-2024 FINGERSTICK GLU 129 mg/dL High 74-106 [facility] Comment on above: Result Comment: HEIDY GEMENT OF PATIENT CARE PER NURSING PROTOCOL Performed By: #### L 501.080 ####[facility] [address] [place], [address] FINGERSTICK GLU 117 mg/dL High 74-106 [facility] Comment on above: Result Comment: HEIDY GEMENT OF PATIENT CARE PER NURSING PROTOCOL Performed By: #### L 501.080 ####[facility] [address] [place], [address] Chest 1 View (Portable)on Chest 1 View (Portable) Normal W [facility] Urinalysis, Completeon 07-17 AMORPHOUS 2+ Normal [facility] Comment on above: Order Comment: BRADFORD TER SPECIMEN Performed By: #### L 400.0001 ####[facility] [address] [place], [address] BACTERIA 1+ /hpf Normal None Seen [facility] Comment on above: Order Comment: BRADFORD TER SPECIMEN Performed By: #### L 400.0001 ####[facility] [address] [place], [address] CAST,HYALINE 0-5 SEEN Normal 0-5 [facility] Comment on above: Order Comment: BRADFORD TER SPECIMEN Performed By: #### L 400.0001 ####[facility] [address] [place], [address] WBC 5-10 SEEN Normal 0-5 [facility] Comment on above: Order Comment: BRADFORD TER SPECIMEN Performed By: #### L 400.0001 ####[facility] [address] [place], [address] BILIRUBIN URINE Negative Normal Negative [facility] Comment on above: Order Comment: BRADFORD TER SPECIMEN Performed By: #### L 400.0001 ####[facility] [address] [place], [address] Clarity (U) Turbid Normal Clear [facility] Comment on above: Order Comment: BRADFORD TER SPECIMEN Performed By: #### L 400.0001 ####[facility] [address] [place], [address] Color (U) Yellow Normal Yellow [facility] Comment on above: Order Comment: BRADFORD TER SPECIMEN Performed By: #### L 400.0001 ####[facility] [address] [place], [address] GLUCOSE, UR Normal Normal Normal [facility] Comment on above: Order Comment: BRADFORD TER SPECIMEN Performed By: #### L 400.0001 ####[facility] [address] [place], [address] KETONE UR Negative Normal Negative [facility] Comment on above: Order Comment: BRADFORD TER SPECIMEN Performed By: #### L 400.0001 ####[facility] [address] [place], [address] LEUK ESTERASE 25 /ul Abnormal Negative [facility] Comment on above: Order Comment: BRADFORD TER SPECIMEN Performed By: #### L 400.0001 ####[facility] [address] [place], [address] Nitrite Ql (U) Negative Normal Negative [facility] Comment on above: Order Comment: BRADFORD TER SPECIMEN Performed By: #### L 400.0001 ####[facility] [address] [place], [address] OCCULT BLOOD-UR 10 /ul Abnormal Negative [facility] Comment on above: Order Comment: BRADFORD TER SPECIMEN Performed By: #### L 400.0001 ####[facility] [address], [address] pH UR 6.5 Normal 5.0 - 8.0 [facility] Comment on above: Order Comment: BRADFORD TER SPECIMEN Performed By: #### L 400.0001 ####[facility] [address] [place], [address] PROT DIPSTX 15 mg/dl Abnormal Negative [facility] Comment on above: Order Comment: BRADFORD TER SPECIMEN Performed By: #### L 400.0001 ####[facility] [address] [place], [address] SP.GR. DIPSTX 1.015 Normal 1.002-1.03 0 [facility] Comment on above: Order Comment: BRADFORD TER SPECIMEN Performed By: #### L 400.0001 ####[facility] [address] [place], [address] UROBILI 1 mg/dl Abnormal Normal [facility] Comment on above: Order Comment: BRADFORD TER SPECIMEN Performed By: #### L 400.0001 ####[facility] [address], [address] EPI,SQUAMOUS 0 SEEN Normal 0-5 [facility] Comment on above: Order Comment: BRADFORD TER SPECIMEN Performed By: #### L 400.0001 ####[facility] [address] [place], [address] Mucus Ql (Urine sed) 0 SEEN Normal [facility] Comment on above: Order Comment: BRADFORD TER SPECIMEN Performed By: #### L 400.0001 ####[facility] [address] [place], [address] RBC 0 SEEN Normal 0-5 [facility] Comment on above: Order Comment: BRADFORD TER SPECIMEN Performed By: #### L 400.0001 ####[facility] [address] [place], [address] Basic metabolic 2000 panelon 06-23-2024 Anion gap [Moles/Vol] 12 mmol/L Normal 8-15 [facility] Comment on above: Order Comment: Speci men Type: BLOOD SPECIMENOrdering Facility: [facility] Address: [address] [place] [address] Performed By: #### 2 4321-2 ####[facility] [id number] [place] [address] [place] Calcium [Mass/Vol] 8.5 mg/dL Normal 8.5-10.2 [facility] Comment on above: Order Comment: Speci men Type: BLOOD SPECIMENOrdering Facility: [facility] Address: [address] [place] [address] Performed By: #### 2 4321-2 ####[facility]ORY[facility] [id number] [place] [address] [place] Chloride [Moles/Vol] 107 mmol/L Normal 98-107 [facility] Comment on above: Order Comment: Speci men Type: BLOOD SPECIMENOrdering Facility: [facility] Address: [address] [place] [address] Performed By: #### 2 4321-2 ####[facility]ORY[facility] [id number] [place] [address] [place] CO2 [Moles/Vol] 26 mmol/L Normal 22-30 [facility] Comment on above: Order Comment: Speci men Type: BLOOD SPECIMENOrdering Facility: [facility] Address: [address] [place] [address] Performed By: #### 2 4321-2 ####[facility]ORYCLIA [id number] [place] [address] [place] Creatinine [Mass/Vol] 0.50 mg/dL Low 0.73-1.22 [facility] Comment on above: Order Comment: Speci men Type: BLOOD SPECIMENOrdering Facility: [facility] Address: [address] [place] [address] Performed By: #### 2 4321-2 ####[facility]ORYCLIA [id number] [address] [place] Creatinine and Glomerular filtration rate.predicted panel (S/P/Bld) 115 mL/min/1.73m??? Normal >=60 [facility] Comment on above: Order Comment: Lele stepan Type: BLOOD SPECIMENOrdering Facility: [facility] Address: [address] [place] [address] Result Comment: Aury mated Glomerular Filtration Rate (eGFR) is calculated using the 2020 CKD-EPI creatinine equation. This equation utilizes serum creatinine, sex, and age as parameters. The creatinine assay has traceable calibration to isotope dilution-mass spectrometry. Refer to KDIGO guidelines for clinical interpretation. In patients with unstable renal function, e.g. those with acute kidney injury, the eGFR may not accurately reflect actual GFR. Performed By: #### 2 4321-2 ####[facility]ORYCLIA [id number] [place] [address] [place] Glucose [Mass/Vol] 127 mg/dL High 74-99 [facility] Comment on above: Order Comment: Jeanalisia ying Type: BLOOD SPECIMENOrdering Facility: [facility] Address: [address] [place] [address] Result Comment: The [place] Diabetes Association (ADA) provides guidance for cutoff values for fasting glucose and random glucose. The ADA defines fasting as no caloric intake for at least 8 hours. Fasting plasma glucose results between 100 to 125 mg/dL indicate increased risk for diabetes (prediabetes).Fasting plasma glucose results greater than or equal to 126 mg/dL meet the criteria for diagnosis of diabetes. In the absence of unequivocal hyperglycemia, results should be confirmed by repeat testing. In a patient with classic symptoms of hyperglycemia or hyperglycemic crisis, random plasma glucose results greater than or equal to 200 mg/dL meet the criteria for diagnosis of diabetes.Reference: Standards of Medical Care in Diabetes 2016, [place] Diabetes Association. Diabetes Care. 2016.39(Suppl 1). Performed By: #### 2 4321-2 ####[facility]ORYCLIA [id number] [place] [address] [place] Potassium [Moles/Vol] 3.0 mmol/L Low 3.7-5.1 [facility] Comment on above: Order Comment: Speci men Type: BLOOD SPECIMENOrdering Facility: [facility] Address: [address] [place] [address] Performed By: #### 2 4321-2 ####[facility]ORYCLIA [id number] [place] [id number] [place] Sodium [Moles/Vol] 145 mmol/L High 136-144 [facility] Comment on above: Order Comment: Speci men Type: BLOOD SPECIMENOrdering Facility: [facility] Address: [address] [place] [address] Performed By: #### 2 4321-2 ####[facility]ORYCLIA [id number] [address] [place] Urea nitrogen [Mass/Vol] 31 mg/dL High 9-24 [facility] Comment on above: Order Comment: Speci men Type: BLOOD SPECIMENOrdering Facility: [facility] Address: [address] [place] [address] Performed By: #### 2 4321-2 ####[facility]ORYCLIA [id number] [address] [place] CASE MANAGEMon 06-23-2024 CASE MANAGEM Normal [facility] CASE MANAGEM Normal [facility] CBC panel Auto (Bld)on 06-23 Erythrocyte distribution width (RBC) [Ratio] 14.8 % Normal 11.5-15.0 [facility] Comment on above: Order Comment: Speci men Type: BLOOD SPECIMENOrdering Facility: [facility] Address: [address] [place] [address] Performed By: #### 5 8410-2 ####[facility]ORYCLIA [id number] [address] [place] Hematocrit (Bld) [Volume fraction] 32.1 % Low 39.0-51.0 [facility] Comment on above: Order Comment: Speci men Type: BLOOD SPECIMENOrdering Facility: [facility] Address: [address] [place] [address] Performed By: #### 5 8410-2 ####[facility]ORYCLIA [id number] [address] STATES OF [facility] Hemoglobin (Bld) [Mass/Vol] 10.3 g/dL Low 13.0-17.0 [facility] Comment on above: Order Comment: Speci men Type: BLOOD SPECIMENOrdering Facility: [facility] Address: [address] [place] [address] Performed By: #### 5 8410-2 ####[facility]ORYCLIA [id number] [address] [place] MCH (RBC) [Entitic mass] 29.9 pg Normal 26.0-34.0 [facility] Comment on above: Order Comment: Speci men Type: BLOOD SPECIMENOrdering Facility: [facility] Address: [address] [place] [address] Performed By: #### 5 8410-2 ####[facility]ORYCLIA [id number] [address] [place] MCHC (RBC) [Mass/Vol] 32.1 g/dL Normal 30.5-36.0 [facility] Comment on above: Order Comment: Speci men Type: BLOOD SPECIMENOrdering Facility: [facility] Address: [address] [place] [address] Performed By: #### 5 8410-2 ####[facility]ORYCLIA [id number] [address] [place] MCV (RBC) [Entitic vol] 93.0 fL Normal 80.0-100.0 [facility] Comment on above: Order Comment: Speci men Type: BLOOD SPECIMENOrdering Facility: [facility] Address: [address] [place] [address] Performed By: #### 5 8410-2 ####[facility]ORYCLIA [id number] [place] [address] [place] Nucleated RBC (Bld) [#/Vol] 10*3/uL Normal <0.01 [facility] Comment on above: Order Comment: Speci men Type: BLOOD SPECIMENOrdering Facility: [facility] Address: [address] [place] [address] Performed By: #### 5 8410-2 ####[facility]ORYCLIA [id number] [place] [address] [place] Platelet mean volume (Bld) [Entitic vol] 10.2 fL Normal 9.0-12.7 [facility] Comment on above: Order Comment: Speci men Type: BLOOD SPECIMENOrdering Facility: [facility] Address: [address] [place] [address] Performed By: #### 5 8410-2 ####[facility]ORYCLIA [id number] [address] [place] Platelets (Bld) [#/Vol] 410 10*3/uL High 150-400 [facility] Comment on above: Order Comment: Speci men Type: BLOOD SPECIMENOrdering Facility: [facility] Address: [address] [place] [address] Performed By: #### 5 8410-2 ####[facility]ORYCLIA [id number] [place] [address] [place] RBC (Bld) [#/Vol] 3.45 10*6/uL Low 4.20-6.00 [facility] Comment on above: Order Comment: Speci men Type: BLOOD SPECIMENOrdering Facility: [facility] Address: [address] [place] [address] Performed By: #### 5 8410-2 ####[facility]ORYCLIA [id number] [address] [place] WBC (Bld) [#/Vol] 14.21 10*3/uL High 3.70-11.00 [facility] Comment on above: Order Comment: Speci men Type: BLOOD SPECIMENOrdering Facility: [facility] Address: [address] [place] [address] Performed By: #### 5 8410-2 ####[facility]ORYCLIA [id number] [place] [address] [place] CNDSon 06-23-2024 CNDS Normal [facility] NUTRITIONon 06-23-2024 NUTRITION Normal [facility] Basic metabolic 2000 panelon 06-22-2024 Anion gap [Moles/Vol] 12 mmol/L Normal 8-15 [facility] Comment on above: Order Comment: Speci men Type: BLOOD SPECIMENOrdering Facility: [facility] Address: [address] [place] [address] Performed By: #### 2 4321-2 ####[facility]ORYCLIA [id number] [place] [id number] [place] Calcium [Mass/Vol] 8.5 mg/dL Normal 8.5-10.2 [facility] Comment on above: Order Comment: Speci men Type: BLOOD SPECIMENOrdering Facility: [facility] Address: [address] [place] [address] Performed By: #### 2 4321-2 ####[facility]ATORYCLIA [id number] [place] [address] [place] Chloride [Moles/Vol] 108 mmol/L High 98-107 [facility] Comment on above: Order Comment: Speci men Type: BLOOD SPECIMENOrdering Facility: [facility] Address: [address] [place] [address] Performed By: #### 2 4321-2 ####[facility]ATORYCLIA [id number] [place] [address] [place] CO2 [Moles/Vol] 25 mmol/L Normal 22-30 [facility] Comment on above: Order Comment: Speci men Type: BLOOD SPECIMENOrdering Facility: [facility] Address: [address] [place] [address] Performed By: #### 2 4321-2 ####[facility]ATORYCLIA [id number] [place] [address] [place] Creatinine [Mass/Vol] 0.51 mg/dL Low 0.73-1.22 [facility] Comment on above: Order Comment: Lele ying Type: BLOOD SPECIMENOrdering Facility: [facility] Address: [address] [place] [address] Performed By: #### 2 4321-2 ####[facility]ATORYCLIA [id number] [address] OF [facility] Creatinine and Glomerular filtration rate.predicted panel (S/P/Bld) 115 mL/min/1.73m??? Normal >=60 [facility] Comment on above: Order Comment: Lele ying Type: BLOOD SPECIMENOrdering Facility: [facility] Address: [address] [place] [address] Result Comment: Aury mated Glomerular Filtration Rate (eGFR) is calculated using the 2020 CKD-EPI creatinine equation. This equation utilizes serum creatinine, sex, and age as parameters. The creatinine assay has traceable calibration to isotope dilution-mass spectrometry. Refer to KDIGO guidelines for clinical interpretation. In patients with unstable renal function, e.g. those with acute kidney injury, the eGFR may not accurately reflect actual GFR. Performed By: #### 2 4321-2 ####[facility] [id number] [address] [place] Glucose [Mass/Vol] 120 mg/dL High 74-99 [facility] Comment on above: Order Comment: Lele ying Type: BLOOD SPECIMENOrdering Facility: [facility] Address: [address] [place] [address] Result Comment: The [place] Diabetes Association (ADA) provides guidance for cutoff values for fasting glucose and random glucose. The ADA defines fasting as no caloric intake for at least 8 hours. Fasting plasma glucose results between 100 to 125 mg/dL indicate increased risk for diabetes (prediabetes).Fasting plasma glucose results greater than or equal to 126 mg/dL meet the criteria for diagnosis of diabetes. In the absence of unequivocal hyperglycemia, results should be confirmed by repeat testing. In a patient with classic symptoms of hyperglycemia or hyperglycemic crisis, random plasma glucose results greater than or equal to 200 mg/dL meet the criteria for diagnosis of diabetes.Reference: Standards of Medical Care in Diabetes 2016, [place] Diabetes Association. Diabetes Care. 2016.39(Suppl 1). Performed By: #### 2 4321-2 ####[facility]ORYCLIA [id number] [address] OF [facility] Potassium [Moles/Vol] 3.5 mmol/L Low 3.7-5.1 [facility] Comment on above: Order Comment: Speci men Type: BLOOD SPECIMENOrdering Facility: [facility] Address: [address] [place] [address] Performed By: #### 2 4321-2 ####[facility]ATORYCLIA [id number] [address] Sodium [Moles/Vol] 145 mmol/L High 136-144 [facility] Comment on above: Order Comment: Speci men Type: BLOOD SPECIMENOrdering Facility: [facility] Address: [address] [place] [address] Performed By: #### 2 4321-2 ####[facility]ATORYCLIA [id number] [address] STATES [facility] Urea nitrogen [Mass/Vol] 26 mg/dL High 9-24 [facility] Comment on above: Order Comment: Speci men Type: BLOOD SPECIMENOrdering Facility: [facility] Address: [address] [place] [address] Performed By: #### 2 4321-2 ####[facility]ATORYCLIA [id number] [address] CASE MANAGEMon 06-22-2024 CASE MANAGEM Normal [facility] CASE MANAGEM Normal [facility] CBC panel Auto (Bld)on 06-22 Erythrocyte distribution width (RBC) [Ratio] 14.8 % Normal 11.5-15.0 [facility] Comment on above: Order Comment: Speci men Type: BLOOD SPECIMENOrdering Facility: [facility] Address: [address] [place] [address] Performed By: #### 5 8410-2 ####[facility]ATORYCLIA [id number] [address] OF [facility] Hematocrit (Bld) [Volume fraction] 31.1 % Low 39.0-51.0 [facility] Comment on above: Order Comment: Speci men Type: BLOOD SPECIMENOrdering Facility: [facility] Address: [address] [place] [address] Performed By: #### 5 8410-2 ####[facility]ATORYCLIA [id number] [address] OF [facility] Hemoglobin (Bld) [Mass/Vol] 9.6 g/dL Low 13.0-17.0 [facility] Comment on above: Order Comment: Speci men Type: BLOOD SPECIMENOrdering Facility: [facility] Address: [address] [place] [address] Performed By: #### 5 8410-2 ####[facility]ATORYCLIA [id number] [address] STATES [facility] MCH (RBC) [Entitic mass] 29.4 pg Normal 26.0-34.0 [facility] Comment on above: Order Comment: Speci men Type: BLOOD SPECIMENOrdering Facility: [facility] Address: [address] [place] [address] Performed By: #### 5 8410-2 ####[facility]ORYCLIA [id number] [address] [place] MCHC (RBC) [Mass/Vol] 30.9 g/dL Normal 30.5-36.0 [facility] Comment on above: Order Comment: Speci men Type: BLOOD SPECIMENOrdering Facility: [facility] Address: [address] [place] [address] Performed By: #### 5 8410-2 ####[facility]ATORYCLIA [id number] [address] OF [facility] MCV (RBC) [Entitic vol] 95.4 fL Normal 80.0-100.0 [facility] Comment on above: Order Comment: Speci men Type: BLOOD SPECIMENOrdering Facility: [facility] Address: [address] [place] [address] Performed By: #### 5 8410-2 ####[facility]ORYCLIA [id number] [address] STATES [facility] Nucleated RBC (Bld) [#/Vol] 10*3/uL Normal <0.01 [facility] Comment on above: Order Comment: Speci men Type: BLOOD SPECIMENOrdering Facility: [facility] Address: [address] [place] [address] Performed By: #### 5 8410-2 ####[facility]ATORYCLIA [id number] [address] [place] Platelet mean volume (Bld) [Entitic vol] 10.3 fL Normal 9.0-12.7 [facility] Comment on above: Order Comment: Speci men Type: BLOOD SPECIMENOrdering Facility: [facility] Address: [address] [place] [address] Performed By: #### 5 8410-2 ####[facility]ATORYCLIA [id number] [address] [place] Platelets (Bld) [#/Vol] 403 10*3/uL High 150-400 [facility] Comment on above: Order Comment: Speci men Type: BLOOD SPECIMENOrdering Facility: [facility] Address: [address] [place] [address] Performed By: #### 5 8410-2 ####[facility]ATORYCLIA [id number] [address] [place] RBC (Bld) [#/Vol] 3.26 10*6/uL Low 4.20-6.00 [facility] Comment on above: Order Comment: Speci men Type: BLOOD SPECIMENOrdering Facility: [facility] Address: [address] [place] [address] Performed By: #### 5 8410-2 ####[facility]ATORYCLIA [id number] [place] [address] [place] WBC (Bld) [#/Vol] 13.36 10*3/uL High 3.70-11.00 [facility] Comment on above: Order Comment: Speci men Type: BLOOD SPECIMENOrdering Facility: [facility] Address: [address] [place] [address] Performed By: #### 5 8410-2 ####[facility]ORYCLIA [id number] [place] [address] [place] ALLIED HEALTHon 06-21-2024 ALLIED HEALTH Normal [facility] Basic metabolic 2000 panelon 06-21-2024 Anion gap [Moles/Vol] 9 mmol/L Normal 8-15 [facility] Comment on above: Order Comment: Speci men Type: BLOOD SPECIMENOrdering Facility: [facility] Address: [address] [place] [address] Performed By: #### 2 4321-2, 2776-09, ####[facility]ORYCLIA [id number] [place] [address] [place] Calcium [Mass/Vol] 8.4 mg/dL Low 8.5-10.2 [facility] Comment on above: Order Comment: Speci men Type: BLOOD SPECIMENOrdering Facility: [facility] Address: [address] [place] [address] Performed By: #### 2 4321-2, 2776-09, ####[facility]ATORYCLIA [id number] [place] [address] [place] Chloride [Moles/Vol] 103 mmol/L Normal 98-107 [facility] Comment on above: Order Comment: Speci men Type: BLOOD SPECIMENOrdering Facility: [facility] Address: [address] [place] [address] Performed By: #### 2 4321-2, 2776-09, ####[facility]ATORYCLIA [id number] [place] [address] [place] CO2 [Moles/Vol] 26 mmol/L Normal 22-30 [facility] Comment on above: Order Comment: Speci men Type: BLOOD SPECIMENOrdering Facility: [facility] Address: [address] [place] [address] Performed By: #### 2 4321-2, 27703-02, ####[facility] COUNTYCLIA [id number] [place] [address] [place] Creatinine [Mass/Vol] 0.43 mg/dL Low 0.73-1.22 [facility] Comment on above: Order Comment: Speci men Type: BLOOD SPECIMENOrdering Facility: [facility] Address: [address] [place] [address] Performed By: #### 2 4321-2, 2776-09, ####[facility] COUNTYCLIA [id number] [address] OF [facility] Creatinine and Glomerular filtration rate.predicted panel (S/P/Bld) 121 mL/min/1.73m??? Normal >=60 [facility] Comment on above: Order Comment: Speci men Type: BLOOD SPECIMENOrdering Facility: [facility] Address: [address] [place] [address] Result Comment: Aury mated Glomerular Filtration Rate (eGFR) is calculated using the 2020 CKD-EPI creatinine equation. This equation utilizes serum creatinine, sex, and age as parameters. The creatinine assay has traceable calibration to isotope dilution-mass spectrometry. Refer to KDIGO guidelines for clinical interpretation. In patients with unstable renal function, e.g. those with acute kidney injury, the eGFR may not accurately reflect actual GFR. Performed By: #### 2 4321-2, 2777-, ####[facility]ATORYIA [id number] [place] [address] [place] Glucose [Mass/Vol] 124 mg/dL High 74-99 [facility] Comment on above: Order Comment: Speci men Type: BLOOD SPECIMENOrdering Facility: [facility] Address: [address] [place] [address] Result Comment: The [place] Diabetes Association (ADA) provides guidance for cutoff values for fasting glucose and random glucose. The ADA defines fasting as no caloric intake for at least 8 hours. Fasting plasma glucose results between 100 to 125 mg/dL indicate increased risk for diabetes (prediabetes).Fasting plasma glucose results greater than or equal to 126 mg/dL meet the criteria for diagnosis of diabetes. In the absence of unequivocal hyperglycemia, results should be confirmed by repeat testing. In a patient with classic symptoms of hyperglycemia or hyperglycemic crisis, random plasma glucose results greater than or equal to 200 mg/dL meet the criteria for diagnosis of diabetes.Reference: Standards of Medical Care in Diabetes 2016, [place] [employer]. Diabetes Care. 2016.39(Suppl 1). Performed By: #### 2 4321-2, 2776-09, ####[facility]ORYCLIA [id number] [place] [address] [place] Potassium [Moles/Vol] 3.2 mmol/L Low 3.7-5.1 [facility] Comment on above: Order Comment: Lele ying Type: BLOOD SPECIMENOrdering Facility: [facility] Address: [address] [place] [address] Performed By: #### 2 4321-2, 2776-09, ####[facility]ATORYCLIA [id number] [place] [address] [place] Sodium [Moles/Vol] 138 mmol/L Normal 136-144 [facility] Comment on above: Order Comment: Lele ying Type: BLOOD SPECIMENOrdering Facility: [facility] Address: [address] [place] [address] Performed By: #### 2 4321-2, 2776-09, ####[facility]ORYCLIA [id number] [place] [address] [place] Urea nitrogen [Mass/Vol] 24 mg/dL Normal 9-24 [facility] Comment on above: Order Comment: Lele ying Type: BLOOD SPECIMENOrdering Facility: [facility] Address: [address] [place] [address] Performed By: #### 2 4321-2, 2776-09, ####[facility]ATORYCLIA [id number] [address] CBC panel Auto (Bld)on 06-21 Erythrocyte distribution width (RBC) [Ratio] 14.2 % Normal 11.5-15.0 [facility] Comment on above: Order Comment: Speci men Type: BLOOD SPECIMENOrdering Facility: [facility] Address: [address] [place] [address] Performed By: #### 5 8410-2 ####[facility]ATORYCLIA [id number] [address] Hematocrit (Bld) [Volume fraction] 28.9 % Low 39.0-51.0 [facility] Comment on above: Order Comment: Speci men Type: BLOOD SPECIMENOrdering Facility: [facility] Address: [address] [place] [address] Performed By: #### 5 8410-2 ####[facility]ATORYCLIA [id number] [address] Hemoglobin (Bld) [Mass/Vol] 9.4 g/dL Low 13.0-17.0 [facility] Comment on above: Order Comment: Speci men Type: BLOOD SPECIMENOrdering Facility: [facility] Address: [address] [place] [address] Performed By: #### 5 8410-2 ####[facility]ATORYCLIA [id number] [address] [place] [facility] MCH (RBC) [Entitic mass] 29.9 pg Normal 26.0-34.0 [facility] Comment on above: Order Comment: Speci men Type: BLOOD SPECIMENOrdering Facility: [facility] Address: [address] [place] [address] Performed By: #### 5 8410-2 ####[facility]ORYCLIA [id number] [address] MCHC (RBC) [Mass/Vol] 32.5 g/dL Normal 30.5-36.0 [facility] Comment on above: Order Comment: Speci men Type: BLOOD SPECIMENOrdering Facility: [facility] Address: [address] [place] [address] Performed By: #### 5 8410-2 ####[facility]ATORYCLIA [id number] [address] MCV (RBC) [Entitic vol] 92.0 fL Normal 80.0-100.0 [facility] Comment on above: Order Comment: Speci men Type: BLOOD SPECIMENOrdering Facility: [facility] Address: [address] [place] [address] Performed By: #### 5 8410-2 ####[facility]ORYCLIA [id number] [address] Nucleated RBC (Bld) [#/Vol] 10*3/uL Normal <0.01 [facility] Comment on above: Order Comment: Speci men Type: BLOOD SPECIMENOrdering Facility: [facility] Address: [address] [place] [address] Performed By: #### 5 8410-2 ####[facility]ORYCLIA [id number] [address] [place] Platelet mean volume (Bld) [Entitic vol] 10.4 fL Normal 9.0-12.7 [facility] Comment on above: Order Comment: Speci men Type: BLOOD SPECIMENOrdering Facility: [facility] Address: [address] [place] [address] Performed By: #### 5 8410-2 ####[facility]ORYCLIA [id number] [address] Platelets (Bld) [#/Vol] 337 10*3/uL Normal 150-400 [facility] Comment on above: Order Comment: Speci men Type: BLOOD SPECIMENOrdering Facility: [facility] Address: [address] [place] [address] Performed By: #### 5 8410-2 ####[facility]ORYCLIA [id number] [address] [place] RBC (Bld) [#/Vol] 3.14 10*6/uL Low 4.20-6.00 [facility] Comment on above: Order Comment: Speci men Type: BLOOD SPECIMENOrdering Facility: [facility] Address: [address] [place] [address] Performed By: #### 5 8410-2 ####[facility]ATORYCLIA [id number] [place] [address] [place] WBC (Bld) [#/Vol] 16.35 10*3/uL High 3.70-11.00 [facility] Comment on above: Order Comment: Speci men Type: BLOOD SPECIMENOrdering Facility: [facility] Address: [address] [place] [address] Performed By: #### 5 8410-2 ####[facility]ORYCLIA [id number] [address] OF [facility] MRI CERVICAL SPINE WO IVCONo n 06-21-2024 MRI CERVICAL SPINE WO IVCON Normal [facility] Magnesium SerPl-mCncon 06-21 Magnesium [Mass/Vol] 2.0 mg/dL Normal 1.7-2.3 [facility] Comment on above: Order Comment: Speci men Type: BLOOD SPECIMENOrdering Facility: [facility] Address: [address] [place] [address] Performed By: #### 2 4321-2, 2777-1, 77468-2 ####[facility]ORYCLIA [id number] [address] [place] Phosphate SerPl-mCncon 06-21 Phosphate [Mass/Vol] 2.8 mg/dL Normal 2.7-4.8 [facility] Comment on above: Order Comment: Speci men Type: BLOOD SPECIMENOrdering Facility: [facility] Address: [address] [place] [address] Performed By: #### 2 4321-2, 2777-1, 35845-6 ####[facility]ORYCLIA [id number] [address] [place] XR CHEST 1V FRONTALon 10-20- 2024 XR CHEST 1V FRONTAL Normal [facility] Basic metabolic 2000 panelon 06-20-2024 Anion gap [Moles/Vol] 8 mmol/L Normal 8-15 [facility] Comment on above: Order Comment: Speci men Type: BLOOD SPECIMENOrdering Facility: [facility] Address: [address] [place] [address] Performed By: #### 2 4321-2 ####[facility]ORYCLIA [id number] [place] [address] [place] Calcium [Mass/Vol] 8.1 mg/dL Low 8.5-10.2 [facility] Comment on above: Order Comment: Speci men Type: BLOOD SPECIMENOrdering Facility: [facility] Address: [address] [place] [address] Performed By: #### 2 4321-2 ####[facility]ORYCLIA [id number] [place] [address] [place] Chloride [Moles/Vol] 105 mmol/L Normal 98-107 [facility] Comment on above: Order Comment: Speci men Type: BLOOD SPECIMENOrdering Facility: [facility] Address: [address] [place] [address] Performed By: #### 2 4321-2 ####[facility]ATORYCLIA [id number] [place] [address] [place] CO2 [Moles/Vol] 27 mmol/L Normal 22-30 [facility] Comment on above: Order Comment: Speci men Type: BLOOD SPECIMENOrdering Facility: [facility] Address: [address] [place] [address] Performed By: #### 2 4321-2 ####[facility]ATORYCLIA [id number] [place] [address] [place] Creatinine [Mass/Vol] 0.50 mg/dL Low 0.73-1.22 [facility] Comment on above: Order Comment: Speci men Type: BLOOD SPECIMENOrdering Facility: [facility] Address: [address] [place] [address] Performed By: #### 2 4321-2 ####[facility]ORYCLIA [id number] [address] Creatinine and Glomerular filtration rate.predicted panel (S/P/Bld) 115 mL/min/1.73m??? Normal >=60 [facility] Comment on above: Order Comment: Lele ying Type: BLOOD SPECIMENOrdering Facility: [facility] Address: [address] [place] [address] Result Comment: Aury mated Glomerular Filtration Rate (eGFR) is calculated using the 2020 CKD-EPI creatinine equation. This equation utilizes serum creatinine, sex, and age as parameters. The creatinine assay has traceable calibration to isotope dilution-mass spectrometry. Refer to KDIGO guidelines for clinical interpretation. In patients with unstable renal function, e.g. those with acute kidney injury, the eGFR may not accurately reflect actual GFR. Performed By: #### 2 4321-2 ####[facility] COUNTYCLIA [id number] [place] [address] [place] Glucose [Mass/Vol] 135 mg/dL High 74-99 [facility] Comment on above: Order Comment: Lele ying Type: BLOOD SPECIMENOrdering Facility: [facility] Address: [address] [place] [address] Result Comment: The [place] Diabetes Association (ADA) provides guidance for cutoff values for fasting glucose and random glucose. The ADA defines fasting as no caloric intake for at least 8 hours. Fasting plasma glucose results between 100 to 125 mg/dL indicate increased risk for diabetes (prediabetes).Fasting plasma glucose results greater than or equal to 126 mg/dL meet the criteria for diagnosis of diabetes. In the absence of unequivocal hyperglycemia, results should be confirmed by repeat testing. In a patient with classic symptoms of hyperglycemia or hyperglycemic crisis, random plasma glucose results greater than or equal to 200 mg/dL meet the criteria for diagnosis of diabetes.Reference: Standards of Medical Care in Diabetes 2016, [place] [employer]. Diabetes Care. 2016.39(Suppl 1). Performed By: #### 2 4321-2 ####[facility]ORYCLIA [id number] [place] [id number] [place] Potassium [Moles/Vol] 3.8 mmol/L Normal 3.7-5.1 [facility] Comment on above: Order Comment: Speci men Type: BLOOD SPECIMENOrdering Facility: [facility] Address: [address] [place] [address] Performed By: #### 2 4321-2 ####[facility]ORYCLIA [id number] [address] [place] Sodium [Moles/Vol] 140 mmol/L Normal 136-144 [facility] Comment on above: Order Comment: Speci men Type: BLOOD SPECIMENOrdering Facility: [facility] Address: [address] [place] [address] Performed By: #### 2 4321-2 ####[facility]ORYCLIA [id number] [address] STATES [facility] Urea nitrogen [Mass/Vol] 25 mg/dL High 9-24 [facility] Comment on above: Order Comment: Speci men Type: BLOOD SPECIMENOrdering Facility: [facility] Address: [address] [place] [address] Performed By: #### 2 4321-2 ####[facility]ORYCLIA [id number] [address] STATES OF [facility] [facility] CBC panel Auto (Bld)on 06-20 Erythrocyte distribution width (RBC) [Ratio] 14.5 % Normal 11.5-15.0 [facility] Comment on above: Order Comment: Speci men Type: BLOOD SPECIMENOrdering Facility: [facility] Address: [address] [place] [address] Performed By: #### 5 8410-2 ####[facility]ATORYCLIA [id number] [address] Hematocrit (Bld) [Volume fraction] 29.8 % Low 39.0-51.0 [facility] Comment on above: Order Comment: Speci men Type: BLOOD SPECIMENOrdering Facility: [facility] Address: [address] [place] [address] Performed By: #### 5 8410-2 ####[facility]ATORYCLIA [id number] [address] Hemoglobin (Bld) [Mass/Vol] 9.3 g/dL Low 13.0-17.0 [facility] Comment on above: Order Comment: Speci men Type: BLOOD SPECIMENOrdering Facility: [facility] Address: [address] [place] [address] Performed By: #### 5 8410-2 ####[facility]ATORYCLIA [id number] [address] MCH (RBC) [Entitic mass] 29.5 pg Normal 26.0-34.0 [facility] Comment on above: Order Comment: Speci men Type: BLOOD SPECIMENOrdering Facility: [facility] Address: [address] [place] [address] Performed By: #### 5 8410-2 ####[facility]ATORYCLIA [id number] [address] MCHC (RBC) [Mass/Vol] 31.2 g/dL Normal 30.5-36.0 [facility] Comment on above: Order Comment: Speci men Type: BLOOD SPECIMENOrdering Facility: [facility] Address: [address] [place] [address] Performed By: #### 5 8410-2 ####[facility]ATORYCLIA [id number] [address] MCV (RBC) [Entitic vol] 94.6 fL Normal 80.0-100.0 [facility] Comment on above: Order Comment: Speci men Type: BLOOD SPECIMENOrdering Facility: [facility] Address: [address] [place] [address] Performed By: #### 5 8410-2 ####[facility]ATORYCLIA [id number] [address] Nucleated RBC (Bld) [#/Vol] 10*3/uL Normal <0.01 [facility] Comment on above: Order Comment: Speci men Type: BLOOD SPECIMENOrdering Facility: [facility] Address: [address] [place] [address] Performed By: #### 5 8410-2 ####[facility]ATORYCLIA [id number] [address] [place] Platelet mean volume (Bld) [Entitic vol] 10.6 fL Normal 9.0-12.7 [facility] Comment on above: Order Comment: Speci men Type: BLOOD SPECIMENOrdering Facility: [facility] Address: [address] [place] [address] Performed By: #### 5 8410-2 ####[facility]ATORYCLIA [id number] [address] [place] Platelets (Bld) [#/Vol] 339 10*3/uL Normal 150-400 [facility] Comment on above: Order Comment: Speci men Type: BLOOD SPECIMENOrdering Facility: [facility] Address: [address] [place] [address] Performed By: #### 5 8410-2 ####[facility]ATORYCLIA [id number] [place] [address] [place] RBC (Bld) [#/Vol] 3.15 10*6/uL Low 4.20-6.00 [facility] Comment on above: Order Comment: Speci men Type: BLOOD SPECIMENOrdering Facility: [facility] Address: [address] [place] [address] Performed By: #### 5 8410-2 ####[facility]ORYCLIA [id number] [address] [place] WBC (Bld) [#/Vol] 11.78 10*3/uL High 3.70-11.00 [facility] Comment on above: Order Comment: Speci men Type: BLOOD SPECIMENOrdering Facility: [facility] Address: [address] [place] [address] Performed By: #### 5 8410-2 ####[facility]ORYCLIA [id number] [address] OF [place] Gas and Carbon monoxide pane l (BldV)on 06-20-2024 Base excess Calc (BldV) [Moles/Vol] 5 mmol/L High 0-2 [facility] Comment on above: Order Comment: Speci men Type: VENOUS BLOOD SPECIMENOrdering Facility: [facility] Address: [address] [place] [address] Performed By: #### 2 4344-4 ####[facility]ATORYCLIA [id number] [address] [place] Body temperature 98.6 [degF] Normal [facility] Comment on above: Order Comment: Speci men Type: VENOUS BLOOD SPECIMENOrdering Facility: [facility] Address: [address] [place] [address] Performed By: #### 2 4344-4 ####[facility]ATORYCLIA [id number] [address] OF [facility] Calcium.ionized (BldV) [Mass/Vol] 1.12 mmol/L Normal 1.08-1.30 [facility] Comment on above: Order Comment: Speci men Type: VENOUS BLOOD SPECIMENOrdering Facility: [facility] Address: [address] [place] [address] Performed By: #### 2 4344-4 ####[facility]ATORYCLIA [id number] [address] [place] Calcium.ionized adjusted to pH 7.4 (BldA) [Moles/Vol] 1.16 mmol/L Normal 1.08-1.30 [facility] Comment on above: Order Comment: Speci men Type: VENOUS BLOOD SPECIMENOrdering Facility: [facility] Address: [address] [place] [address] Performed By: #### 2 4344-4 ####[facility]ORYCLIA [id number] [address] [place] Carboxyhemoglobin (BldV) [Mass fraction] 1.5 % Normal 0.0-2.0 [facility] Comment on above: Order Comment: Speci men Type: VENOUS BLOOD SPECIMENOrdering Facility: [facility] Address: [address] [place] [address] Result Comment: Carb oxyhemoglobin Reference Range for Smokers: 2.0-8.0% Performed By: #### 2 4344-4 ####[facility]ORYCLIA [id number] [place] [address] [place] Chloride [Moles/Vol] 106 mmol/L High 97-105 [facility] Comment on above: Order Comment: Speci men Type: VENOUS BLOOD SPECIMENOrdering Facility: [facility] Address: [address] [place] [address] Performed By: #### 2 4344-4 ####[facility]ATORYCLIA [id number] [address] [place] CO2 (BldV) [Partial pressure] 40 mm[Hg] Low 42-55 [facility] Comment on above: Order Comment: Speci men Type: VENOUS BLOOD SPECIMENOrdering Facility: [facility] Address: [address] [place] [address] Performed By: #### 2 4344-4 ####[facility]ORYCLIA [id number] [address] [place] FIO2 35 % Normal [facility] Comment on above: Order Comment: Speci men Type: VENOUS BLOOD SPECIMENOrdering Facility: [facility] Address: [address] [place] [address] Performed By: #### 2 4344-4 ####[facility]ORYCLIA [id number] [place] [address] [place] Glucose [Mass/Vol] 139 mg/dL High 60-105 [facility] Comment on above: Order Comment: Speci men Type: VENOUS BLOOD SPECIMENOrdering Facility: [facility] Address: [address] [place] [address] Performed By: #### 2 4344-4 ####[facility]ORATORYCLIA [id number] [place] [address] [place] HCO3 (Bld) [Moles/Vol] 29 mmol/L High 24-28 [facility] Comment on above: Order Comment: Speci men Type: VENOUS BLOOD SPECIMENOrdering Facility: [facility] Address: [address] [place] [address] Performed By: #### 2 4344-4 ####[facility]ORYCLIA [id number] [address] [place] Hematocrit (Bld) [Volume fraction] 29.9 % Low 39.0-51.0 [facility] Comment on above: Order Comment: Speci men Type: VENOUS BLOOD SPECIMENOrdering Facility: [facility] Address: [address] [place] [address] Performed By: #### 2 4344-4 ####[facility]ORYCLIA [id number] [address] [place] Hemoglobin (Bld) [Mass/Vol] 9.7 g/dL Low 13.0-17.0 [facility] Comment on above: Order Comment: Speci men Type: VENOUS BLOOD SPECIMENOrdering Facility: [facility] Address: [address] [place] [address] Performed By: #### 2 4344-4 ####[facility]ORYCLIA [id number] [address] [place] Lactate [Moles/Vol] 0.8 mmol/L Normal 0.5-2.2 [facility] Comment on above: Order Comment: Speci men Type: VENOUS BLOOD SPECIMENOrdering Facility: [facility] Address: [address] [place] [address] Performed By: #### 2 4344-4 ####[facility]ORYCLIA [id number] [address] [place] Methemoglobin (Bld) [Mass fraction] 0.6 % Normal 0.0-1.5 [facility] Comment on above: Order Comment: Speci men Type: VENOUS BLOOD SPECIMENOrdering Facility: [facility] Address: [address] [place] [address] Performed By: #### 2 4344-4 ####[facility]ATORYCLIA [id number] [address] [place] O2 THERAPY VENT=Ventilator Normal [facility] Comment on above: Order Comment: Speci men Type: VENOUS BLOOD SPECIMENOrdering Facility: [facility] Address: [address] [place] [address] Performed By: #### 2 4344-4 ####[facility]ATORYCLIA [id number] [place] [address] [place] Oxygen (BldV) [Partial pressure] 141 mm[Hg] High 35-45 [facility] Comment on above: Order Comment: Speci men Type: VENOUS BLOOD SPECIMENOrdering Facility: [facility] Address: [address] [place] [address] Performed By: #### 2 4344-4 ####[facility]ORYCLIA [id number] [address] [place] Oxygen saturation in Venous blood 99 % High 60-85 [facility] Comment on above: Order Comment: Speci men Type: VENOUS BLOOD SPECIMENOrdering Facility: [facility] Address: [address] [place] [address] Performed By: #### 2 4344-4 ####[facility]ORYCLIA [id number] [address] [place] Oxyhemoglobin (BldV) [Mass fraction] 97 % High 60-85 [facility] Comment on above: Order Comment: Speci men Type: VENOUS BLOOD SPECIMENOrdering Facility: [facility] Address: [address] [place] [address] Performed By: #### 2 4344-4 ####[facility]ATORYCLIA [id number] [place] [address] [place] PEEP/CPAP 5 cmH2O Normal [facility] Comment on above: Order Comment: Speci men Type: VENOUS BLOOD SPECIMENOrdering Facility: [facility] Address: [address] [place] [address] Performed By: #### 2 4344-4 ####[facility]ORYCLIA [id number] [place] [address] [place] pH (BldV) 7.47 [pH] High 7.32-7.42 [facility] Comment on above: Order Comment: Speci men Type: VENOUS BLOOD SPECIMENOrdering Facility: [facility] Address: [address] [place] [address] Performed By: #### 2 4344-4 ####[facility]ORYCLIA [id number] [place] [address] [place] Potassium [Moles/Vol] 3.3 mmol/L Low 3.5-5.0 [facility] Comment on above: Order Comment: Speci men Type: VENOUS BLOOD SPECIMENOrdering Facility: [facility] Address: [address] [place] [address] Performed By: #### 2 4344-4 ####[facility]ORYCLIA [id number] [address] [place] Sodium [Moles/Vol] 139 mmol/L Normal 136-144 [facility] Comment on above: Order Comment: Speci men Type: VENOUS BLOOD SPECIMENOrdering Facility: [facility] Address: [address] [place] [address] Performed By: #### 2 4344-4 ####[facility]ORYCLIA [id number] [place] [address] [place] Base excess Calc (BldV) [Moles/Vol] 5 mmol/L High 0-2 [facility] Comment on above: Order Comment: Speci men Type: VENOUS BLOOD SPECIMENOrdering Facility: [facility] Address: [address] [place] [address] Performed By: #### 2 4344-4 ####[facility]ORYCLIA [id number] [address] [place] Body temperature 99.68 [degF] Normal [facility] Comment on above: Order Comment: Speci men Type: VENOUS BLOOD SPECIMENOrdering Facility: [facility] Address: [address] [place] [address] Performed By: #### 2 4344-4 ####[facility]ATORYCLIA [id number] [address] OF [facility] Calcium.ionized (BldV) [Mass/Vol] 1.14 mmol/L Normal 1.08-1.30 [facility] Comment on above: Order Comment: Speci men Type: VENOUS BLOOD SPECIMENOrdering Facility: [facility] Address: [address] [place] [address] Performed By: #### 2 4344-4 ####[facility]ATORYCLIA [id number] [address] Calcium.ionized adjusted to pH 7.4 (BldA) [Moles/Vol] 1.18 mmol/L Normal 1.08-1.30 [facility] Comment on above: Order Comment: Speci men Type: VENOUS BLOOD SPECIMENOrdering Facility: [facility] Address: [address] [place] [address] Performed By: #### 2 4344-4 ####[facility] COUNTYCLIA [id number] [address] OF [facility] Carboxyhemoglobin (BldV) [Mass fraction] 2.2 % High 0.0-2.0 [facility] Comment on above: Order Comment: Speci men Type: VENOUS BLOOD SPECIMENOrdering Facility: [facility] Address: [address] [place] [address] Result Comment: Carb oxyhemoglobin Reference Range for Smokers: 2.0-8.0% Performed By: #### 2 4344-4 ####[facility]ORYCLIA [id number] [address] STATES OF [facility] Chloride [Moles/Vol] 103 mmol/L Normal 97-105 [facility] Comment on above: Order Comment: Speci men Type: VENOUS BLOOD SPECIMENOrdering Facility: [facility] Address: [address] [place] [address] Performed By: #### 2 4344-4 ####[facility]ATORYCLIA [id number] [address] CO2 (BldV) [Partial pressure] 40 mm[Hg] Low 42-55 [facility] Comment on above: Order Comment: Speci men Type: VENOUS BLOOD SPECIMENOrdering Facility: [facility] Address: [address] [place] [address] Performed By: #### 2 4344-4 ####[facility]ORYCLIA [id number] [address] [place] CO2 adjusted to patient's actual temperature (BldV) [Partial pressure] 41 mmHg Low 42-55 [facility] Comment on above: Order Comment: Speci men Type: VENOUS BLOOD SPECIMENOrdering Facility: [facility] Address: [address] [place] [address] Performed By: #### 2 4344-4 ####[facility]ATORYCLIA [id number] [place] [address] [place] Glucose [Mass/Vol] 121 mg/dL High 60-105 [facility] Comment on above: Order Comment: Speci men Type: VENOUS BLOOD SPECIMENOrdering Facility: [facility] Address: [address] [place] [address] Performed By: #### 2 4344-4 ####[facility]ORYCLIA [id number] [place] [address] [place] HCO3 (Bld) [Moles/Vol] 28 mmol/L Normal 24-28 [facility] Comment on above: Order Comment: Speci men Type: VENOUS BLOOD SPECIMENOrdering Facility: [facility] Address: [address] [place] [address] Performed By: #### 2 4344-4 ####[facility]ORYCLIA [id number] [address] [place] Hematocrit (Bld) [Volume fraction] 28.6 % Low 39.0-51.0 [facility] Comment on above: Order Comment: Speci men Type: VENOUS BLOOD SPECIMENOrdering Facility: [facility] Address: [address] [place] [address] Performed By: #### 2 4344-4 ####[facility]ORYCLIA [id number] [address] [place] Hemoglobin (Bld) [Mass/Vol] 9.2 g/dL Low 13.0-17.0 [facility] Comment on above: Order Comment: Speci men Type: VENOUS BLOOD SPECIMENOrdering Facility: [facility] Address: [address] [place] [address] Performed By: #### 2 4344-4 ####[facility]ORYCLIA [id number] [address] [place] Lactate [Moles/Vol] 0.5 mmol/L Normal 0.5-2.2 [facility] Comment on above: Order Comment: Speci men Type: VENOUS BLOOD SPECIMENOrdering Facility: [facility] Address: [address] [place] [address] Performed By: #### 2 4344-4 ####[facility]ORYCLIA [id number] [address] [place] Methemoglobin (Bld) [Mass fraction] 0.5 % Normal 0.0-1.5 [facility] Comment on above: Order Comment: Speci men Type: VENOUS BLOOD SPECIMENOrdering Facility: [facility] Address: [address] [place] [address] Performed By: #### 2 4344-4 ####[facility]ORYCLIA [id number] [address] [place] O2 THERAPY VENT=Ventilator Normal [facility] Comment on above: Order Comment: Speci men Type: VENOUS BLOOD SPECIMENOrdering Facility: [facility] Address: [address] [place] [address] Result Comment: cpap 5/5 Performed By: #### 2 4344-4 ####[facility]ATORYCLIA [id number] [place] [id number] [facility] [place] Oxygen (BldV) [Partial pressure] 165 mm[Hg] High 35-45 [facility] Comment on above: Order Comment: Speci men Type: VENOUS BLOOD SPECIMENOrdering Facility: [facility] Address: [address] [place] [address] Performed By: #### 2 4344-4 ####[facility]ORYCLIA [id number] [address] Oxygen adjusted to patient's actual temperature (BldV) [Partial pressure] 167 mmHg High 35-45 [facility] Comment on above: Order Comment: Speci men Type: VENOUS BLOOD SPECIMENOrdering Facility: [facility] Address: [address] [place] [address] Performed By: #### 2 4344-4 ####[facility]ORYCLIA [id number] [address] [place] Oxygen saturation in Venous blood 100 % High 60-85 [facility] Comment on above: Order Comment: Speci men Type: VENOUS BLOOD SPECIMENOrdering Facility: [facility] Address: [address] [place] [address] Performed By: #### 2 4344-4 ####[facility]ORYCLIA [id number] [address] Oxyhemoglobin (BldV) [Mass fraction] 97 % High 60-85 [facility] Comment on above: Order Comment: Speci men Type: VENOUS BLOOD SPECIMENOrdering Facility: [facility] Address: [address] [place] [address] Performed By: #### 2 4344-4 ####[facility]ORYCLIA [id number] [address] [place] pH (BldV) 7.46 [pH] High 7.32-7.42 [facility] Comment on above: Order Comment: Speci men Type: VENOUS BLOOD SPECIMENOrdering Facility: [facility] Address: [address] [place] [address] Performed By: #### 2 4344-4 ####[facility]ORYCLIA [id number] [address] [place] pH adjusted to patient's actual temperature (BldV) 7.45 High 7.32-7.42 [facility] Comment on above: Order Comment: Speci men Type: VENOUS BLOOD SPECIMENOrdering Facility: [facility] Address: [address] [place] [address] Performed By: #### 2 4344-4 ####[facility]ATORYCLIA [id number] [place] [address] [place] Potassium [Moles/Vol] 3.8 mmol/L Normal 3.5-5.0 [facility] Comment on above: Order Comment: Speci men Type: VENOUS BLOOD SPECIMENOrdering Facility: [facility] Address: [address] [place] [address] Performed By: #### 2 4344-4 ####[facility]ORYCLIA [id number] [address] [place] Sodium [Moles/Vol] 140 mmol/L Normal 136-144 [facility] Comment on above: Order Comment: Speci men Type: VENOUS BLOOD SPECIMENOrdering Facility: [facility] Address: [address] [place] [address] Performed By: #### 2 4344-4 ####[facility]ORYCLIA [id number] [place] [address] [place] THERAPY NTon 06-20-2024 THERAPY NT Normal [facility] XR ABDOMEN 1V SUPINEon 06-20 XR ABDOMEN 1V SUPINE Normal [facility] ALLIED HEALTHon 06-19-2024 ALLIED HEALTH Normal [facility] ANES POSTPROC EVALon 024 ANES POSTPROC EVAL Normal [facility] Basic metabolic 2000 panelon 06-19-2024 Anion gap [Moles/Vol] 11 mmol/L Normal 8-15 [facility] Comment on above: Order Comment: Speci men Type: BLOOD SPECIMENOrdering Facility: [facility] Address: [address] [place] [address] Performed By: #### 2 4321-2 ####[facility]ORYCLIA [id number] [place] [address] [place] Calcium [Mass/Vol] 8.0 mg/dL Low 8.5-10.2 [facility] Comment on above: Order Comment: Speci men Type: BLOOD SPECIMENOrdering Facility: [facility] Address: [address] [place] [address] Performed By: #### 2 4321-2 ####[facility]ORYCLIA [id number] [place] [address] [place] Chloride [Moles/Vol] 106 mmol/L Normal 98-107 [facility] Comment on above: Order Comment: Speci men Type: BLOOD SPECIMENOrdering Facility: [facility] Address: [address] [place] [address] Performed By: #### 2 4321-2 ####[facility]ORYCLIA [id number] [address] [place] CO2 [Moles/Vol] 24 mmol/L Normal 22-30 [facility] Comment on above: Order Comment: Speci men Type: BLOOD SPECIMENOrdering Facility: [facility] Address: [address] [place] [address] Performed By: #### 2 4321-2 ####[facility]ORYCLIA [id number] [place] [address] [place] Creatinine [Mass/Vol] 0.53 mg/dL Low 0.73-1.22 [facility] Comment on above: Order Comment: Speci men Type: BLOOD SPECIMENOrdering Facility: [facility] Address: [address] [place] [address] Performed By: #### 2 4321-2 ####[facility]ORYCLIA [id number] [address] Creatinine and Glomerular filtration rate.predicted panel (S/P/Bld) 113 mL/min/1.73m??? Normal >=60 [facility] Comment on above: Order Comment: Speci men Type: BLOOD SPECIMENOrdering Facility: [facility] Address: [address] [place] [address] Result Comment: Aury mated Glomerular Filtration Rate (eGFR) is calculated using the 2020 CKD-EPI creatinine equation. This equation utilizes serum creatinine, sex, and age as parameters. The creatinine assay has traceable calibration to isotope dilution-mass spectrometry. Refer to KDIGO guidelines for clinical interpretation. In patients with unstable renal function, e.g. those with acute kidney injury, the eGFR may not accurately reflect actual GFR. Performed By: #### 2 4321-2 ####[facility]ORYCLIA [id number] [place] [address] [place] Glucose [Mass/Vol] 114 mg/dL High 74-99 [facility] Comment on above: Order Comment: Speci men Type: BLOOD SPECIMENOrdering Facility: [facility] Address: [address] [place] [address] Result Comment: The [place] [employer] (ADA) provides guidance for cutoff values for fasting glucose and random glucose. The ADA defines fasting as no caloric intake for at least 8 hours. Fasting plasma glucose results between 100 to 125 mg/dL indicate increased risk for diabetes (prediabetes).Fasting plasma glucose results greater than or equal to 126 mg/dL meet the criteria for diagnosis of diabetes. In the absence of unequivocal hyperglycemia, results should be confirmed by repeat testing. In a patient with classic symptoms of hyperglycemia or hyperglycemic crisis, random plasma glucose results greater than or equal to 200 mg/dL meet the criteria for diagnosis of diabetes.Reference: Standards of Medical Care in Diabetes 2016, [place] [employer]. Diabetes Care. 2016.39(Suppl 1). Performed By: #### 2 4321-2 ####[facility]ATORYCLIA [id number] [place] [address] [place] Potassium [Moles/Vol] 3.9 mmol/L Normal 3.7-5.1 [facility] Comment on above: Order Comment: Lele ying Type: BLOOD SPECIMENOrdering Facility: [facility] Address: [address] [place] [address] Performed By: #### 2 4321-2 ####[facility]ORATORYCLIA [id number] [place] [address] [place] Sodium [Moles/Vol] 141 mmol/L Normal 136-144 [facility] Comment on above: Order Comment: Jeani men Type: BLOOD SPECIMENOrdering Facility: [facility] Address: [address] [place] [address] Performed By: #### 2 4321-2 ####[facility]ORATORYCLIA [id number] [place] [id number] [place] [facility] Urea nitrogen [Mass/Vol] 23 mg/dL Normal 9-24 [facility] Comment on above: Order Comment: Speci men Type: BLOOD SPECIMENOrdering Facility: [facility] Address: [address] [place] [address] Performed By: #### 2 4321-2 ####[facility]ATORYCLIA [id number] [place] [id number] [facility] CASE MANAGEMon 06-19-2024 CASE MANAGEM Normal [facility] CBC panel Auto (Bld)on 06-19 Erythrocyte distribution width (RBC) [Ratio] 14.3 % Normal 11.5-15.0 [facility] Comment on above: Order Comment: Speci men Type: BLOOD SPECIMENOrdering Facility: [facility] Address: [address] [place] [address] Performed By: #### 5 8410-2 ####[facility]ATORYCLIA [id number] [address] STATES [facility] Hematocrit (Bld) [Volume fraction] 31.1 % Low 39.0-51.0 [facility] Comment on above: Order Comment: Speci men Type: BLOOD SPECIMENOrdering Facility: [facility] Address: [address] [place] [address] Performed By: #### 5 8410-2 ####[facility]ATORYCLIA [id number] [address] [place] Hemoglobin (Bld) [Mass/Vol] 9.8 g/dL Low 13.0-17.0 [facility] Comment on above: Order Comment: Speci men Type: BLOOD SPECIMENOrdering Facility: [facility] Address: [address] [place] [address] Performed By: #### 5 8410-2 ####[facility]ATORYCLIA [id number] [place] [address] [place] MCH (RBC) [Entitic mass] 29.3 pg Normal 26.0-34.0 [facility] Comment on above: Order Comment: Speci men Type: BLOOD SPECIMENOrdering Facility: [facility] Address: [address] [place] [address] Performed By: #### 5 8410-2 ####[facility]ATORYCLIA [id number] [address] [place] MCHC (RBC) [Mass/Vol] 31.5 g/dL Normal 30.5-36.0 [facility] Comment on above: Order Comment: Speci men Type: BLOOD SPECIMENOrdering Facility: [facility] Address: [address] [place] [address] Performed By: #### 5 8410-2 ####[facility]ATORYCLIA [id number] [address] [place] MCV (RBC) [Entitic vol] 93.1 fL Normal 80.0-100.0 [facility] Comment on above: Order Comment: Speci men Type: BLOOD SPECIMENOrdering Facility: [facility] Address: [address] [place] [address] Performed By: #### 5 8410-2 ####[facility]ATORYCLIA [id number] [address] Nucleated RBC (Bld) [#/Vol] 10*3/uL Normal <0.01 [facility] Comment on above: Order Comment: Speci men Type: BLOOD SPECIMENOrdering Facility: [facility] Address: [address] [place] [address] Performed By: #### 5 8410-2 ####[facility]ATORYCLIA [id number] [address] Platelet mean volume (Bld) [Entitic vol] 10.7 fL Normal 9.0-12.7 [facility] Comment on above: Order Comment: Speci men Type: BLOOD SPECIMENOrdering Facility: [facility] Address: [address] [place] [address] Performed By: #### 5 8410-2 ####[facility]ATORYCLIA [id number] [address] [place] Platelets (Bld) [#/Vol] 357 10*3/uL Normal 150-400 [facility] Comment on above: Order Comment: Speci men Type: BLOOD SPECIMENOrdering Facility: [facility] Address: [address] [place] [address] Performed By: #### 5 8410-2 ####[facility]ATORYCLIA [id number] [place] [address] [place] RBC (Bld) [#/Vol] 3.34 10*6/uL Low 4.20-6.00 [facility] Comment on above: Order Comment: Speci men Type: BLOOD SPECIMENOrdering Facility: [facility] Address: [address] [place] [address] Performed By: #### 5 8410-2 ####[facility]ATORYCLIA [id number] [address] [place] WBC (Bld) [#/Vol] 16.86 10*3/uL High 3.70-11.00 [facility] Comment on above: Order Comment: Speci men Type: BLOOD SPECIMENOrdering Facility: [facility] Address: [address] [place] [address] Performed By: #### 5 8410-2 ####[facility]ATORYCLIA [id number] [address] OF [place] CTA HEAD W IVCONon 4 CTA HEAD W IVCON Normal [facility] CTA NECK W IVCONon 4 CTA NECK W IVCON Normal [facility] Gas and Carbon monoxide pane l (BldV)on 06-19-2024 Base excess Calc (BldV) [Moles/Vol] 3 mmol/L High 0-2 [facility] Comment on above: Order Comment: Speci men Type: VENOUS BLOOD SPECIMENOrdering Facility: [facility] Address: [address] [place] [address] Performed By: #### 2 4344-4 ####[facility]ORYCLIA [id number] [address] Body temperature 98.96 [degF] Normal [facility] Comment on above: Order Comment: Speci men Type: VENOUS BLOOD SPECIMENOrdering Facility: [facility] Address: [address] [place] [address] Performed By: #### 2 4344-4 ####[facility]ATORYCLIA [id number] [address] Calcium.ionized (BldV) [Mass/Vol] 1.13 mmol/L Normal 1.08-1.30 [facility] Comment on above: Order Comment: Speci men Type: VENOUS BLOOD SPECIMENOrdering Facility: [facility] Address: [address] [place] [address] Performed By: #### 2 4344-4 ####[facility]ATORYCLIA [id number] [address] Calcium.ionized adjusted to pH 7.4 (BldA) [Moles/Vol] 1.16 mmol/L Normal 1.08-1.30 [facility] Comment on above: Order Comment: Speci men Type: VENOUS BLOOD SPECIMENOrdering Facility: [facility] Address: [address] [place] [address] Performed By: #### 2 4344-4 ####[facility]ORYCLIA [id number] [address] Carboxyhemoglobin (BldV) [Mass fraction] 1.1 % Normal 0.0-2.0 [facility] Comment on above: Order Comment: Speci men Type: VENOUS BLOOD SPECIMENOrdering Facility: [facility] Address: [address] [place] [address] Result Comment: Carb oxyhemoglobin Reference Range for Smokers: 2.0-8.0% Performed By: #### 2 4344-4 ####[facility]ATORYCLIA [id number] [address] Chloride [Moles/Vol] 110 mmol/L High 97-105 [facility] Comment on above: Order Comment: Speci men Type: VENOUS BLOOD SPECIMENOrdering Facility: [facility] Address: [address] [place] [address] Performed By: #### 2 4344-4 ####[facility]ORATORYCLIA [id number] [place], [place] [address] [place] [address] [place] CO2 (BldV) [Partial pressure] 40 mm[Hg] Low 42-55 [facility] Comment on above: Order Comment: Speci men Type: VENOUS BLOOD SPECIMENOrdering Facility: [facility] Address: [address] [place] [address] Performed By: #### 2 4344-4 ####[facility]ATORYCLIA [id number] [address] [place] CO2 adjusted to patient's actual temperature (BldV) [Partial pressure] 40 mmHg Low 42-55 [facility] Comment on above: Order Comment: Speci men Type: VENOUS BLOOD SPECIMENOrdering Facility: [facility] Address: [address] [place] [address] Performed By: #### 2 4344-4 ####[facility]ATORYCLIA [id number] [place] [address] [place] Glucose [Mass/Vol] 118 mg/dL High 60-105 [facility] Comment on above: Order Comment: Speci men Type: VENOUS BLOOD SPECIMENOrdering Facility: [facility] Address: [address] [place] [address] Performed By: #### 2 4344-4 ####[facility] [facility]ORATORYCLIA [id number] [place] [address] [place] HCO3 (Bld) [Moles/Vol] 27 mmol/L Normal 24-28 [facility] Comment on above: Order Comment: Speci men Type: VENOUS BLOOD SPECIMENOrdering Facility: [facility] Address: [address] [place] [address] Performed By: #### 2 4344-4 ####[facility]ATORYCLIA [id number] [address] [place] Hematocrit (Bld) [Volume fraction] 31.4 % Low 39.0-51.0 [facility] Comment on above: Order Comment: Speci men Type: VENOUS BLOOD SPECIMENOrdering Facility: [facility] Address: [address] [place] [address] Performed By: #### 2 4344-4 ####[facility]ORYCLIA [id number] [address] [place] Hemoglobin (Bld) [Mass/Vol] 10.2 g/dL Low 13.0-17.0 [facility] Comment on above: Order Comment: Speci men Type: VENOUS BLOOD SPECIMENOrdering Facility: [facility] Address: [address] [place] [address] Performed By: #### 2 4344-4 ####[facility]ATORYCLIA [id number] [address] STATES [facility] Lactate [Moles/Vol] 0.9 mmol/L Normal 0.5-2.2 [facility] Comment on above: Order Comment: Speci men Type: VENOUS BLOOD SPECIMENOrdering Facility: [facility] Address: [address] [place] [address] Performed By: #### 2 4344-4 ####[facility]ORYCLIA [id number] [address] [place] Methemoglobin (Bld) [Mass fraction] 0.6 % Normal 0.0-1.5 [facility] Comment on above: Order Comment: Speci men Type: VENOUS BLOOD SPECIMENOrdering Facility: [facility] Address: [address] [place] [address] Performed By: #### 2 4344-4 ####[facility]ATORYCLIA [id number] [address] [place] O2 THERAPY VENT=Ventilator Normal [facility] Comment on above: Order Comment: Speci men Type: VENOUS BLOOD SPECIMENOrdering Facility: [facility] Address: [address] [place] [address] Performed By: #### 2 4344-4 ####[facility] [facility]ATORYCLIA [id number] [address] [place] Oxygen (BldV) [Partial pressure] 46 mm[Hg] High 35-45 [facility] Comment on above: Order Comment: Speci men Type: VENOUS BLOOD SPECIMENOrdering Facility: [facility] Address: [address] [place] [address] Performed By: #### 2 4344-4 ####[facility] [facility]ATORYCLIA [id number] [address] [place] Oxygen adjusted to patient's actual temperature (BldV) [Partial pressure] 46 mmHg High 35-45 [facility] Comment on above: Order Comment: Speci men Type: VENOUS BLOOD SPECIMENOrdering Facility: [facility] Address: [address] [place] [address] Performed By: #### 2 4344-4 ####[facility]ORYCLIA [id number] [address] [place] Oxygen saturation in Venous blood 78 % Normal 60-85 [facility] Comment on above: Order Comment: Speci men Type: VENOUS BLOOD SPECIMENOrdering Facility: [facility] Address: [address] [place] [address] Performed By: #### 2 4344-4 ####[facility]ATORYCLIA [id number] [address] [place] Oxyhemoglobin (BldV) [Mass fraction] 77 % Normal 60-85 [facility] Comment on above: Order Comment: Speci men Type: VENOUS BLOOD SPECIMENOrdering Facility: [facility] Address: [address] [place] [address] Performed By: #### 2 4344-4 ####[facility]ATORYCLIA [id number] [address] [place] pH (BldV) 7.45 [pH] High 7.32-7.42 [facility] Comment on above: Order Comment: Speci men Type: VENOUS BLOOD SPECIMENOrdering Facility: [facility] Address: [address] [place] [address] Performed By: #### 2 4344-4 ####[facility]ORYCLIA [id number] [address] [place] pH adjusted to patient's actual temperature (BldV) 7.45 High 7.32-7.42 [facility] Comment on above: Order Comment: Speci men Type: VENOUS BLOOD SPECIMENOrdering Facility: [facility] Address: [address] [place] [address] Performed By: #### 2 4344-4 ####[facility]ATORYCLIA [id number] [place] [address] [place] Potassium [Moles/Vol] 3.7 mmol/L Normal 3.5-5.0 [facility] Comment on above: Order Comment: Speci men Type: VENOUS BLOOD SPECIMENOrdering Facility: [facility] Address: [address] [place] [address] Performed By: #### 2 4344-4 ####[facility]ATORYCLIA [id number] [address] [place] Sodium [Moles/Vol] 140 mmol/L Normal 136-144 [facility] Comment on above: Order Comment: Speci men Type: VENOUS BLOOD SPECIMENOrdering Facility: [facility] Address: [address] [place] [address] Performed By: #### 2 4344-4 ####[facility]ATORYCLIA [id number] [place] [id number] [place] NUTRITIONon 06-19-2024 NUTRITION Normal [facility] XR CHEST 1V FRONTALon 2023 XR CHEST 1V FRONTAL Normal [facility] XR CHEST 1V FRONTAL Normal [facility] ALLIED HEALTHon 06-18-2024 ALLIED HEALTH Normal [facility] ANES PRE-OPon 06-18-2024 ANES PRE-OP Normal [facility] Basic metabolic 2000 panelon 06-18-2024 Anion gap [Moles/Vol] 6 mmol/L Low 8-15 [facility] Comment on above: Order Comment: Speci men Type: BLOOD SPECIMENOrdering Facility: [facility] Address: [address] [place] [address] Performed By: #### 2 4321-2 ####[facility]ATORYCLIA [id number] [address] [place] Calcium [Mass/Vol] 8.1 mg/dL Low 8.5-10.2 [facility] Comment on above: Order Comment: Speci men Type: BLOOD SPECIMENOrdering Facility: [facility] Address: [address] [place] [address] Performed By: #### 2 4321-2 ####[facility]ORYCLIA [id number] [address] [place] Chloride [Moles/Vol] 107 mmol/L Normal 98-107 [facility] Comment on above: Order Comment: Speci men Type: BLOOD SPECIMENOrdering Facility: [facility] Address: [address] [place] [address] Performed By: #### 2 4321-2 ####[facility]ATORYCLIA [id number] [place] [address] [place] CO2 [Moles/Vol] 25 mmol/L Normal 22-30 [facility] Comment on above: Order Comment: Speci men Type: BLOOD SPECIMENOrdering Facility: [facility] Address: [address] [place] [address] Performed By: #### 2 4321-2 ####[facility]ORYCLIA [id number] [address] [place] Creatinine [Mass/Vol] 0.51 mg/dL Low 0.73-1.22 [facility] Comment on above: Order Comment: Speci men Type: BLOOD SPECIMENOrdering Facility: [facility] Address: [address] [place] [address] Performed By: #### 2 4321-2 ####[facility]ORATORYCLIA [id number] [address] OF [place] Creatinine and Glomerular filtration rate.predicted panel (S/P/Bld) 115 mL/min/1.73m??? Normal >=60 [facility] Comment on above: Order Comment: Lele ying Type: BLOOD SPECIMENOrdering Facility: [facility] Address: [address] [place] [address] Result Comment: Aury mated Glomerular Filtration Rate (eGFR) is calculated using the 2020 CKD-EPI creatinine equation. This equation utilizes serum creatinine, sex, and age as parameters. The creatinine assay has traceable calibration to isotope dilution-mass spectrometry. Refer to KDIGO guidelines for clinical interpretation. In patients with unstable renal function, e.g. those with acute kidney injury, the eGFR may not accurately reflect actual GFR. Performed By: #### 2 4321-2 ####[facility]ATORYCLIA [id number] [place] [address] [place] Glucose [Mass/Vol] 112 mg/dL High 74-99 [facility] Comment on above: Order Comment: Lele ying Type: BLOOD SPECIMENOrdering Facility: [facility] Address: [address] [place] [address] Result Comment: The [place] Diabetes Association (ADA) provides guidance for cutoff values for fasting glucose and random glucose. The ADA defines fasting as no caloric intake for at least 8 hours. Fasting plasma glucose results between 100 to 125 mg/dL indicate increased risk for diabetes (prediabetes).Fasting plasma glucose results greater than or equal to 126 mg/dL meet the criteria for diagnosis of diabetes. In the absence of unequivocal hyperglycemia, results should be confirmed by repeat testing. In a patient with classic symptoms of hyperglycemia or hyperglycemic crisis, random plasma glucose results greater than or equal to 200 mg/dL meet the criteria for diagnosis of diabetes.Reference: Standards of Medical Care in Diabetes 2016, [place] [employer]. Diabetes Care. 2016.39(Suppl 1). Performed By: #### 2 4321-2 ####[facility]ATORYCLIA [id number] [place] [address] [place] Potassium [Moles/Vol] 3.6 mmol/L Low 3.7-5.1 [facility] Comment on above: Order Comment: Lele ying Type: BLOOD SPECIMENOrdering Facility: [facility] Address: [address] [place] [address] Performed By: #### 2 4321-2 ####[facility]ATORYCLIA [id number] [address] Sodium [Moles/Vol] 138 mmol/L Normal 136-144 [facility] Comment on above: Order Comment: Speci men Type: BLOOD SPECIMENOrdering Facility: [facility] Address: [address] [place] [address] Performed By: #### 2 4321-2 ####[facility]ATORYCLIA [id number] [address] STATES [facility] Urea nitrogen [Mass/Vol] 30 mg/dL High 9-24 [facility] Comment on above: Order Comment: Speci men Type: BLOOD SPECIMENOrdering Facility: [facility] Address: [address] [place] [address] Performed By: #### 2 4321-2 ####[facility]ATORYCLIA [id number] [address] CBC panel Auto (Bld)on 06-18 Erythrocyte distribution width (RBC) [Ratio] 14.4 % Normal 11.5-15.0 [facility] Comment on above: Order Comment: Speci men Type: BLOOD SPECIMENOrdering Facility: [facility] Address: [address] [place] [address] Performed By: #### 5 8410-2 ####[facility]ATORYCLIA [id number] [address] Hematocrit (Bld) [Volume fraction] 27.9 % Low 39.0-51.0 [facility] Comment on above: Order Comment: Speci men Type: BLOOD SPECIMENOrdering Facility: [facility] Address: [address] [place] [address] Performed By: #### 5 8410-2 ####[facility]ATORYCLIA [id number] [address] OF [place] Hemoglobin (Bld) [Mass/Vol] 9.0 g/dL Low 13.0-17.0 [facility] Comment on above: Order Comment: Speci men Type: BLOOD SPECIMENOrdering Facility: [facility] Address: [address] [place] [address] Performed By: #### 5 8410-2 ####[facility]ATORYCLIA [id number] [address] MCH (RBC) [Entitic mass] 30.2 pg Normal 26.0-34.0 [facility] Comment on above: Order Comment: Speci men Type: BLOOD SPECIMENOrdering Facility: [facility] Address: [address] [place] [address] Performed By: #### 5 8410-2 ####[facility]ORYCLIA [id number] [address] MCHC (RBC) [Mass/Vol] 32.3 g/dL Normal 30.5-36.0 [facility] Comment on above: Order Comment: Speci men Type: BLOOD SPECIMENOrdering Facility: [facility] Address: [address] [place] [address] Performed By: #### 5 8410-2 ####[facility]ATORYCLIA [id number] [address] MCV (RBC) [Entitic vol] 93.6 fL Normal 80.0-100.0 [facility] Comment on above: Order Comment: Speci men Type: BLOOD SPECIMENOrdering Facility: [facility] Address: [address] [place] [address] Performed By: #### 5 8410-2 ####[facility]ORYCLIA [id number] [address] Nucleated RBC (Bld) [#/Vol] 10*3/uL Normal <0.01 [facility] Comment on above: Order Comment: Speci men Type: BLOOD SPECIMENOrdering Facility: [facility] Address: [address] [place] [address] Performed By: #### 5 8410-2 ####[facility]ATORYCLIA [id number] [address] [place] Platelet mean volume (Bld) [Entitic vol] 10.8 fL Normal 9.0-12.7 [facility] Comment on above: Order Comment: Speci men Type: BLOOD SPECIMENOrdering Facility: [facility] Address: [address] [place] [address] Performed By: #### 5 8410-2 ####[facility]ATORYCLIA [id number] [place] [address] [place] Platelets (Bld) [#/Vol] 314 10*3/uL Normal 150-400 [facility] Comment on above: Order Comment: Speci men Type: BLOOD SPECIMENOrdering Facility: [facility] Address: [address] [place] [address] Performed By: #### 5 8410-2 ####[facility]ATORYCLIA [id number] [place] [address] [place] RBC (Bld) [#/Vol] 2.98 10*6/uL Low 4.20-6.00 [facility] Comment on above: Order Comment: Speci men Type: BLOOD SPECIMENOrdering Facility: [facility] Address: [address] [place] [address] Performed By: #### 5 8410-2 ####[facility]ORYCLIA [id number] [place] [address] [place] WBC (Bld) [#/Vol] 10.38 10*3/uL Normal 3.70-11.00 [facility] Comment on above: Order Comment: Speci men Type: BLOOD SPECIMENOrdering Facility: [facility] Address: [address] [place] [address] Performed By: #### 5 8410-2 ####[facility]ORYCLIA [id number] [address] [place] CONSULTon 06-18-2024 CONSULT Normal [facility] CTV HEAD WO/W IVCONon 2023 CTV HEAD WO/W IVCON Normal [facility] OPERATIVE NOon 06-18-2024 OPERATIVE NO Normal [facility] XR CHEST 1V FRONTALon 2023 XR CHEST 1V FRONTAL Normal [facility] ALLIED HEALTHon 06-17-2024 [facility] Normal [facility] Basic metabolic 2000 panelon 06-17-2024 Anion gap [Moles/Vol] 7 mmol/L Low 8-15 [facility] Comment on above: Order Comment: Speci men Type: BLOOD SPECIMENOrdering Facility: [facility] Address: [address] [place] [address] Performed By: #### 2 4321-2 ####[facility]ATORYCLIA [id number] [place] [address] [place] Calcium [Mass/Vol] 8.0 mg/dL Low 8.5-10.2 [facility] Comment on above: Order Comment: Speci men Type: BLOOD SPECIMENOrdering Facility: [facility] Address: [address] [place] [address] Performed By: #### 2 4321-2 ####[facility]ATORYCLIA [id number] [place] [address] [place] Chloride [Moles/Vol] 110 mmol/L High 98-107 [facility] Comment on above: Order Comment: Speci men Type: BLOOD SPECIMENOrdering Facility: [facility] Address: [address] [place] [address] Performed By: #### 2 4321-2 ####[facility]ORYCLIA [id number] [place] [address] [place] CO2 [Moles/Vol] 26 mmol/L Normal 22-30 [facility] Comment on above: Order Comment: Speci men Type: BLOOD SPECIMENOrdering Facility: [facility] Address: [address] [place] [address] Performed By: #### 2 4321-2 ####[facility]ATORYCLIA [id number] [place] [address] [place] Creatinine [Mass/Vol] 0.59 mg/dL Low 0.73-1.22 [facility] Comment on above: Order Comment: Jeanalisia ying Type: BLOOD SPECIMENOrdering Facility: [facility] Address: [address] [place] [address] Performed By: #### 2 4321-2 ####[facility]ATORYCLIA [id number] [place] [address] [place] Creatinine and Glomerular filtration rate.predicted panel (S/P/Bld) 110 mL/min/1.73m??? Normal >=60 [facility] Comment on above: Order Comment: Lele stepan Type: BLOOD SPECIMENOrdering Facility: [facility] Address: [address] [place] [address] Result Comment: Aury mated Glomerular Filtration Rate (eGFR) is calculated using the 2020 CKD-EPI creatinine equation. This equation utilizes serum creatinine, sex, and age as parameters. The creatinine assay has traceable calibration to isotope dilution-mass spectrometry. Refer to KDIGO guidelines for clinical interpretation. In patients with unstable renal function, e.g. those with acute kidney injury, the eGFR may not accurately reflect actual GFR. Performed By: #### 2 4321-2 ####[facility]ATORYCLIA [id number] [place] [address] [place] Glucose [Mass/Vol] 135 mg/dL High 74-99 [facility] Comment on above: Order Comment: Jeanalisia ying Type: BLOOD SPECIMENOrdering Facility: [facility] Address: [address] [place] [address] Result Comment: The [place] Diabetes [employer] (ADA) provides guidance for cutoff values for fasting glucose and random glucose. The ADA defines fasting as no caloric intake for at least 8 hours. Fasting plasma glucose results between 100 to 125 mg/dL indicate increased risk for diabetes (prediabetes).Fasting plasma glucose results greater than or equal to 126 mg/dL meet the criteria for diagnosis of diabetes. In the absence of unequivocal hyperglycemia, results should be confirmed by repeat testing. In a patient with classic symptoms of hyperglycemia or hyperglycemic crisis, random plasma glucose results greater than or equal to 200 mg/dL meet the criteria for diagnosis of diabetes.Reference: Standards of Medical Care in Diabetes 2016, [place] [employer]. Diabetes Care. 2016.39(Suppl 1). Performed By: #### 2 4321-2 ####[facility]ORYCLIA [id number] [address] [place] Potassium [Moles/Vol] 3.4 mmol/L Low 3.7-5.1 [facility] Comment on above: Order Comment: Speci men Type: BLOOD SPECIMENOrdering Facility: [facility] Address: [address] [place] [address] Performed By: #### 2 4321-2 ####[facility]ATORYCLIA [id number] [address] [place] Sodium [Moles/Vol] 143 mmol/L Normal 136-144 [facility] Comment on above: Order Comment: Speci men Type: BLOOD SPECIMENOrdering Facility: [facility] Address: [address] [place] [address] Performed By: #### 2 4321-2 ####[facility]ATORYCLIA [id number] [address] [place] Urea nitrogen [Mass/Vol] 32 mg/dL High 9-24 [facility] Comment on above: Order Comment: Speci men Type: BLOOD SPECIMENOrdering Facility: [facility] Address: [address] [place] [address] Performed By: #### 2 4321-2 ####[facility]ORYCLIA [id number] [address] [place] CASE MANAGEMon 06-17-2024 CASE MANAGEM Normal [facility] CBC panel Auto (Bld)on 06-17 Erythrocyte distribution width (RBC) [Ratio] 15.0 % Normal 11.5-15.0 [facility] Comment on above: Order Comment: Speci men Type: BLOOD SPECIMENOrdering Facility: [facility] Address: [address] [place] [address] Performed By: #### 5 8410-2 ####[facility]ATORYCLIA [id number] [address] [place] Hematocrit (Bld) [Volume fraction] 29.6 % Low 39.0-51.0 [facility] Comment on above: Order Comment: Speci men Type: BLOOD SPECIMENOrdering Facility: [facility] Address: [address] [place] [address] Performed By: #### 5 8410-2 ####[facility]ATORYCLIA [id number] [address] STATES OF [facility] Hemoglobin (Bld) [Mass/Vol] 9.4 g/dL Low 13.0-17.0 [facility] Comment on above: Order Comment: Speci men Type: BLOOD SPECIMENOrdering Facility: [facility] Address: [address] [place] [address] Performed By: #### 5 8410-2 ####[facility]ATORYCLIA [id number] [address] [place] MCH (RBC) [Entitic mass] 30.0 pg Normal 26.0-34.0 [facility] Comment on above: Order Comment: Speci men Type: BLOOD SPECIMENOrdering Facility: [facility] Address: [address] [place] [address] Performed By: #### 5 8410-2 ####[facility]ORYCLIA [id number] [address] [place] MCHC (RBC) [Mass/Vol] 31.8 g/dL Normal 30.5-36.0 [facility] Comment on above: Order Comment: Speci men Type: BLOOD SPECIMENOrdering Facility: [facility] Address: [address] [place] [address] Performed By: #### 5 8410-2 ####[facility]ORYCLIA [id number] [address] [place] MCV (RBC) [Entitic vol] 94.6 fL Normal 80.0-100.0 [facility] Comment on above: Order Comment: Speci men Type: BLOOD SPECIMENOrdering Facility: [facility] Address: [address] [place] [address] Performed By: #### 5 8410-2 ####[facility]ORYCLIA [id number] [place] [address] [place] Nucleated RBC (Bld) [#/Vol] 10*3/uL Normal <0.01 [facility] Comment on above: Order Comment: Speci men Type: BLOOD SPECIMENOrdering Facility: [facility] Address: [address] [place] [address] Performed By: #### 5 8410-2 ####[facility]ATORYCLIA [id number] [place] [address] [place] Platelet mean volume (Bld) [Entitic vol] 10.7 fL Normal 9.0-12.7 [facility] Comment on above: Order Comment: Speci men Type: BLOOD SPECIMENOrdering Facility: [facility] Address: [address] [place] [address] Performed By: #### 5 8410-2 ####[facility]ORYCLIA [id number] [address] [place] Platelets (Bld) [#/Vol] 296 10*3/uL Normal 150-400 [facility] Comment on above: Order Comment: Speci men Type: BLOOD SPECIMENOrdering Facility: [facility] Address: [address] [place] [address] Performed By: #### 5 8410-2 ####[facility]ATORYCLIA [id number] [address] [place] RBC (Bld) [#/Vol] 3.13 10*6/uL Low 4.20-6.00 [facility] Comment on above: Order Comment: Speci men Type: BLOOD SPECIMENOrdering Facility: [facility] Address: [address] [place] [address] Performed By: #### 5 8410-2 ####[facility]ATORYCLIA [id number] [address] [place] WBC (Bld) [#/Vol] 13.77 10*3/uL High 3.70-11.00 [facility] Comment on above: Order Comment: Speci men Type: BLOOD SPECIMENOrdering Facility: [facility] Address: [address] [place] [address] Performed By: #### 5 8410-2 ####[facility]ATORYCLIA [id number] [place] [address] [place] CONSULT PROGon 06-17-2024 CONSULT PROG Normal [facility] CT BRAIN WO IVCONon 06-17-[address] BRAIN WO IVCON Normal [facility] MRI BRAIN WO IVCONon 024 MRI BRAIN WO IVCON Normal [facility] XR CHEST 1V FRONTALon 2023 XR CHEST 1V FRONTAL Normal [facility] Basic metabolic 2000 panelon 06-16-2024 Anion gap [Moles/Vol] 10 mmol/L Normal 8-15 [facility] Comment on above: Order Comment: Speci men Type: BLOOD SPECIMENOrdering Facility: [facility] Address: [address] [place] [address] Performed By: #### 1 9123-9, 13672-6 ####[facility]ORYCLIA [id number] [place] [address] [place] Calcium [Mass/Vol] 8.0 mg/dL Low 8.5-10.2 [facility] Comment on above: Order Comment: Speci men Type: BLOOD SPECIMENOrdering Facility: [facility] Address: [address] [place] [address] Performed By: #### 1 9123-9, 85182-4 ####[facility]ATORYCLIA [id number] [place] [address] [place] Chloride [Moles/Vol] 110 mmol/L High 98-107 [facility] Comment on above: Order Comment: Speci men Type: BLOOD SPECIMENOrdering Facility: [facility] Address: [address] [place] [address] Performed By: #### 1 9123-9, 57582-9 ####[facility]ATORYCLIA [id number] [place] [address] [place] CO2 [Moles/Vol] 28 mmol/L Normal 22-30 [facility] Comment on above: Order Comment: Speci stepan Type: BLOOD SPECIMENOrdering Facility: [facility] Address: [address] [place] [address] Performed By: #### 1 9123-9, 01920-1 ####[facility] COUNTYCLIA [id number] [place] [id number] [place] Creatinine [Mass/Vol] 0.62 mg/dL Low 0.73-1.22 [facility] Comment on above: Order Comment: Speci men Type: BLOOD SPECIMENOrdering Facility: [facility] Address: [address] [place] [address] Performed By: #### 1 9123-9, 56498-6 ####[facility] COUNTYCLIA [id number] [address] [place] Creatinine and Glomerular filtration rate.predicted panel (S/P/Bld) 108 mL/min/1.73m??? Normal >=60 [facility] Comment on above: Order Comment: Jeanalisia ying Type: BLOOD SPECIMENOrdering Facility: [facility] Address: [address] [place] [address] Result Comment: Aury mated Glomerular Filtration Rate (eGFR) is calculated using the 2020 CKD-EPI creatinine equation. This equation utilizes serum creatinine, sex, and age as parameters. The creatinine assay has traceable calibration to isotope dilution-mass spectrometry. Refer to KDIGO guidelines for clinical interpretation. In patients with unstable renal function, e.g. those with acute kidney injury, the eGFR may not accurately reflect actual GFR. Performed By: #### 1 9123-9, 72149-6 ####[facility]ORYCLIA [id number] [place] [id number] [place] Glucose [Mass/Vol] 120 mg/dL High 74-99 [facility] Comment on above: Order Comment: Lele ying Type: BLOOD SPECIMENOrdering Facility: [facility] Address: [address] [place] [address] Result Comment: The [place] Diabetes [employer] (ADA) provides guidance for cutoff values for fasting glucose and random glucose. The ADA defines fasting as no caloric intake for at least 8 hours. Fasting plasma glucose results between 100 to 125 mg/dL indicate increased risk for diabetes (prediabetes).Fasting plasma glucose results greater than or equal to 126 mg/dL meet the criteria for diagnosis of diabetes. In the absence of unequivocal hyperglycemia, results should be confirmed by repeat testing. In a patient with classic symptoms of hyperglycemia or hyperglycemic crisis, random plasma glucose results greater than or equal to 200 mg/dL meet the criteria for diagnosis of diabetes.Reference: Standards of Medical Care in Diabetes 2016, [place] [employer]. Diabetes Care. 2016.39(Suppl 1). Performed By: #### 1 9123-9, 50522-1 ####[facility]ORYCLIA [id number] [place] [address] [place] Potassium [Moles/Vol] 3.8 mmol/L Normal 3.7-5.1 [facility] Comment on above: Order Comment: Lele ying Type: BLOOD SPECIMENOrdering Facility: [facility] Address: [address] [place] [address] Performed By: #### 1 91-2 ####[facility]ATORYCLIA [id number] [place] [address] [place] Sodium [Moles/Vol] 148 mmol/L High 136-144 [facility] Comment on above: Order Comment: Lele ying Type: BLOOD SPECIMENOrdering Facility: [facility] Address: [address] [place] [address] Performed By: #### 1 9123-2 ####[facility]ORYCLIA [id number] [address] [place] Urea nitrogen [Mass/Vol] 30 mg/dL High 9-24 [facility] Comment on above: Order Comment: Lele ying Type: BLOOD SPECIMENOrdering Facility: [facility] Address: [address] [place] [address] Performed By: #### 1 91239-2 ####[facility]ATORYCLIA [id number] [place] [address] [place] CBC panel Auto (Bld)on 06-16 Erythrocyte distribution width (RBC) [Ratio] 14.6 % Normal 11.5-15.0 [facility] Comment on above: Order Comment: Speci men Type: BLOOD SPECIMENOrdering Facility: [facility] Address: [address] [place] [address] Performed By: #### 5 8410-2 ####[facility]ATORYCLIA [id number] [address] Hematocrit (Bld) [Volume fraction] 32.3 % Low 39.0-51.0 [facility] Comment on above: Order Comment: Speci men Type: BLOOD SPECIMENOrdering Facility: [facility] Address: [address] [place] [address] Performed By: #### 5 8410-2 ####[facility]ORYCLIA [id number] [address] [place] Hemoglobin (Bld) [Mass/Vol] 10.2 g/dL Low 13.0-17.0 [facility] Comment on above: Order Comment: Speci men Type: BLOOD SPECIMENOrdering Facility: [facility] Address: [address] [place] [address] Performed By: #### 5 8410-2 ####[facility]ATORYCLIA [id number] [address] [place] MCH (RBC) [Entitic mass] 29.8 pg Normal 26.0-34.0 [facility] Comment on above: Order Comment: Speci men Type: BLOOD SPECIMENOrdering Facility: [facility] Address: [address] [place] [address] Performed By: #### 5 8410-2 ####[facility]ATORYCLIA [id number] [address] [place] MCHC (RBC) [Mass/Vol] 31.6 g/dL Normal 30.5-36.0 [facility] Comment on above: Order Comment: Speci men Type: BLOOD SPECIMENOrdering Facility: [facility] Address: [address] [place] [address] Performed By: #### 5 8410-2 ####[facility]ATORYCLIA [id number] [address] STATES [facility] MCV (RBC) [Entitic vol] 94.4 fL Normal 80.0-100.0 [facility] Comment on above: Order Comment: Speci men Type: BLOOD SPECIMENOrdering Facility: [facility] Address: [address] [place] [address] Performed By: #### 5 8410-2 ####[facility]ORYCLIA [id number] [address] [place] Nucleated RBC (Bld) [#/Vol] 10*3/uL Normal <0.01 [facility] Comment on above: Order Comment: Speci men Type: BLOOD SPECIMENOrdering Facility: [facility] Address: [address] [place] [address] Performed By: #### 5 8410-2 ####[facility]ORYCLIA [id number] [address] Platelet mean volume (Bld) [Entitic vol] 11.1 fL Normal 9.0-12.7 [facility] Comment on above: Order Comment: Speci men Type: BLOOD SPECIMENOrdering Facility: [facility] Address: [address] [place] [address] Performed By: #### 5 8410-2 ####[facility]ORYCLIA [id number] [address] Platelets (Bld) [#/Vol] 293 10*3/uL Normal 150-400 [facility] Comment on above: Order Comment: Speci men Type: BLOOD SPECIMENOrdering Facility: [facility] Address: [address] [place] [address] Performed By: #### 5 8410-2 ####[facility]ORYCLIA [id number] [address] [place] RBC (Bld) [#/Vol] 3.42 10*6/uL Low 4.20-6.00 [facility] Comment on above: Order Comment: Speci men Type: BLOOD SPECIMENOrdering Facility: [facility] Address: [address] [place] [address] Performed By: #### 5 8410-2 ####[facility]ATORYCLIA [id number] [place] [address] [place] WBC (Bld) [#/Vol] 19.39 10*3/uL High 3.70-11.00 [facility] Comment on above: Order Comment: Speci men Type: BLOOD SPECIMENOrdering Facility: [facility] Address: [address] [place] [address] Performed By: #### 5 8410-2 ####[facility]ORYCLIA [id number] [place] [address] [place] Magnesium SerPl-mCncon 06-16 Magnesium [Mass/Vol] 2.0 mg/dL Normal 1.7-2.3 [facility] Comment on above: Order Comment: Speci men Type: BLOOD SPECIMENOrdering Facility: [facility] Address: [address] [place] [address] Performed By: #### 1 9123-9, 44070-5 ####[facility]ORYCLIA [id number] [place] [address] [place] NUTRITIONon 06-16-2024 NUTRITION Normal [facility] Urinalysis complete panel (U )on 06-16-2024 Bacteria LM.HPF (Urine sed) [#/Area] None Seen Normal None Seen [facility] Comment on above: Order Comment: Speci men Type: URINE SPECIMENOrdering Facility: [facility] Address: [address] [place] [address] Performed By: #### 2 4356-8 ####[facility]ORYCLIA [id number] [place] [address] [place] Bilirubin Ql (U) Negative Normal Negative [facility] Comment on above: Order Comment: Speci men Type: URINE SPECIMENOrdering Facility: [facility] Address: [address] [place] [address] Performed By: #### 2 4356-8 ####[facility] LABORATORYCLIA [id number] [address] [place] Clarity (Unsp spec) Clear Normal Clear [facility] Comment on above: Order Comment: Speci men Type: URINE SPECIMENOrdering Facility: [facility] Address: [address] [place] [address] Performed By: #### 2 4356-8 ####[facility]ATORYCLIA [id number] [address] Color (U) Yellow Normal Yellow [facility] Comment on above: Order Comment: Speci men Type: URINE SPECIMENOrdering Facility: [facility] Address: [address] [place] [address] Performed By: #### 2 4356-8 ####[facility]ORYCLIA [id number] [address] Epithelial cells LM.HPF (Urine sed) [#/Area] Few Normal [facility] Comment on above: Order Comment: Speci men Type: URINE SPECIMENOrdering Facility: [facility] Address: [address] [place] [address] Performed By: #### 2 4356-8 ####[facility]ATORYCLIA [id number] [address] [place] Glucose Test strip (U) [Mass/Vol] Negative Normal Negative [facility] Comment on above: Order Comment: Speci men Type: URINE SPECIMENOrdering Facility: [facility] Address: [address] [place] [address] Performed By: #### 2 4356-8 ####[facility]ATORYCLIA [id number] [address] Hemoglobin Ql (U) Negative Normal Negative [facility] Comment on above: Order Comment: Speci men Type: URINE SPECIMENOrdering Facility: [facility] Address: [address] [place] [address] Performed By: #### 2 4356-8 ####[facility]ORATORYCLIA [id number] [place] [address] [place] Hyaline casts (Urine sed) [#/Area] 0 /[LPF] Normal 0 /LPF [facility] Comment on above: Order Comment: Speci men Type: URINE SPECIMENOrdering Facility: [facility] Address: [address] [place] [address] Performed By: #### 2 4356-8 ####[facility]ATORYCLIA [id number] [place] [address] [place] Ketones Ql (U) Negative Normal Negative [facility] Comment on above: Order Comment: Speci men Type: URINE SPECIMENOrdering Facility: [facility] Address: [address] [place] [address] Performed By: #### 2 4356-8 ####[facility]ORYCLIA [id number] [address] Leukocyte esterase Test strip Ql (U) Negative Normal Negative [facility] Comment on above: Order Comment: Speci men Type: URINE SPECIMENOrdering Facility: [facility] Address: [address] [place] [address] Performed By: #### 2 4356-8 ####[facility]ORYCLIA [id number] [address] [place] Nitrite Ql (U) Negative Normal Negative [facility] Comment on above: Order Comment: Speci men Type: URINE SPECIMENOrdering Facility: [facility] Address: [address] [place] [address] Performed By: #### 2 4356-8 ####[facility]ATORYCLIA [id number] [place] [address] [place] pH (U) 6.5 [pH] Normal 5.0-8.0 [facility] Comment on above: Order Comment: Speci men Type: URINE SPECIMENOrdering Facility: [facility] Address: [address] [place] [address] Performed By: #### 2 4356-8 ####[facility]ORYCLIA [id number] [address] Protein (U) [Mass/Vol] Negative Normal Negative [facility] Comment on above: Order Comment: Speci men Type: URINE SPECIMENOrdering Facility: [facility] Address: [address] [place] [address] Performed By: #### 2 4356-8 ####[facility]ATORYCLIA [id number] [address] RBC LM.HPF (Urine sed) [#/Area] 3-5 /HPF Abnormal 0-3 /HPF [facility] Comment on above: Order Comment: Speci men Type: URINE SPECIMENOrdering Facility: [facility] Address: [address] [place] [address] Performed By: #### 2 4356-8 ####[facility]ATORYCLIA [id number] [address] Specific gravity (U) [Rel density] 1.015 Normal 1.005-1.03 0 [facility] Comment on above: Order Comment: Speci men Type: URINE SPECIMENOrdering Facility: [facility] Address: [address] [place] [address] Performed By: #### 2 4356-8 ####[facility]ORYCLIA [id number] [address] Urobilinogen Ql (U) 0.2 EU/dL Normal 0.2 EU/d L, 1.0 EU/dL [facility] Comment on above: Order Comment: Speci men Type: URINE SPECIMENOrdering Facility: [facility] Address: [address] [place] [address] Performed By: #### 2 4356-8 ####[facility]ATORYCLIA [id number] [address] WBC LM.HPF (Urine sed) [#/Area] 0-5 /HPF Normal 0-5 /HPF [facility] Comment on above: Order Comment: Speci men Type: URINE SPECIMENOrdering Facility: [facility] Address: [address] [place] [address] Performed By: #### 2 4356-8 ####[facility]ATORYCLIA [id number] [place] [address] [place] XR CHEST 1V FRONTALon 2023 XR CHEST 1V FRONTAL Normal [facility] Basic metabolic 2000 panelon 06-15-2024 Anion gap [Moles/Vol] 8 mmol/L Normal 8-15 [facility] Comment on above: Order Comment: Speci men Type: BLOOD SPECIMENOrdering Facility: [facility] Address: [address] [place] [address] Performed By: #### 2 4321-2, 2570-8 ####[facility]ORYCLIA [id number] [place] [address] [place] Calcium [Mass/Vol] 8.0 mg/dL Low 8.5-10.2 [facility] Comment on above: Order Comment: Speci men Type: BLOOD SPECIMENOrdering Facility: [facility] Address: [address] [place] [address] Performed By: #### 2 4321-2, 2570-8 ####[facility]ORYCLIA [id number] [place] [address] [place] Chloride [Moles/Vol] 112 mmol/L High 98-107 [facility] Comment on above: Order Comment: Speci men Type: BLOOD SPECIMENOrdering Facility: [facility] Address: [address] [place] [address] Performed By: #### 2 4321-2, 2570-8 ####[facility]ATORYCLIA [id number] [place] [address] [place] CO2 [Moles/Vol] 26 mmol/L Normal 22-30 [facility] Comment on above: Order Comment: Speci men Type: BLOOD SPECIMENOrdering Facility: [facility] Address: [address] [place] [address] Performed By: #### 2 4321-2, 257-8 ####[facility]ATORYCLIA [id number] [address] [place] Creatinine [Mass/Vol] 0.56 mg/dL Low 0.73-1.22 [facility] Comment on above: Order Comment: Lele ying Type: BLOOD SPECIMENOrdering Facility: [facility] Address: [address] [place] [address] Performed By: #### 2 4321-2, 2571-8 ####[facility]ORYCLIA [id number] [address] Creatinine and Glomerular filtration rate.predicted panel (S/P/Bld) 111 mL/min/1.73m??? Normal >=60 [facility] Comment on above: Order Comment: Lele ying Type: BLOOD SPECIMENOrdering Facility: [facility] Address: [address] [place] [address] Result Comment: Uary mated Glomerular Filtration Rate (eGFR) is calculated using the 2020 CKD-EPI creatinine equation. This equation utilizes serum creatinine, sex, and age as parameters. The creatinine assay has traceable calibration to isotope dilution-mass spectrometry. Refer to KDIGO guidelines for clinical interpretation. In patients with unstable renal function, e.g. those with acute kidney injury, the eGFR may not accurately reflect actual GFR. Performed By: #### 2 4321-2, 2571-8 ####[facility]ATORYCLIA [id number] [address] [place] Glucose [Mass/Vol] 147 mg/dL High 74-99 [facility] Comment on above: Order Comment: Lele ying Type: BLOOD SPECIMENOrdering Facility: [facility] Address: [address] [place] [address] Result Comment: The [place] Diabetes Association (ADA) provides guidance for cutoff values for fasting glucose and random glucose. The ADA defines fasting as no caloric intake for at least 8 hours. Fasting plasma glucose results between 100 to 125 mg/dL indicate increased risk for diabetes (prediabetes).Fasting plasma glucose results greater than or equal to 126 mg/dL meet the criteria for diagnosis of diabetes. In the absence of unequivocal hyperglycemia, results should be confirmed by repeat testing. In a patient with classic symptoms of hyperglycemia or hyperglycemic crisis, random plasma glucose results greater than or equal to 200 mg/dL meet the criteria for diagnosis of diabetes.Reference: Standards of Medical Care in Diabetes 2016, [place] [employer] Association. Diabetes Care. 2016.39(Suppl 1). Performed By: #### 2 4321-2, 1-8 ####[facility]ORYCLIA [id number] [address] STATES OF [facility] Potassium [Moles/Vol] 3.7 mmol/L Normal 3.7-5.1 [facility] Comment on above: Order Comment: Speci men Type: BLOOD SPECIMENOrdering Facility: [facility] Address: [address] [place] [address] Performed By: #### 2 4321-2, 2570-8 ####[facility]ATORYCLIA [id number] [address] STATES [facility] Sodium [Moles/Vol] 146 mmol/L High 136-144 [facility] Comment on above: Order Comment: Speci stepan Type: BLOOD SPECIMENOrdering Facility: [facility] Address: [address] [place] [address] Performed By: #### 2 4321-2, 8 ####[facility]ATORYCLIA [id number] [address] STATES [facility] Urea nitrogen [Mass/Vol] 36 mg/dL High 9-24 [facility] Comment on above: Order Comment: Jeani men Type: BLOOD SPECIMENOrdering Facility: [facility] Address: [address] [place] [address] Performed By: #### 2 432-2, 2570-8 ####[facility]ORYCLIA [id number] [place] [id number] [place] CASE MANAGEMon 06-15-2024 CASE MANAGEM Normal [facility] CBC panel Auto (Bld)on 06-15 Erythrocyte distribution width (RBC) [Ratio] 15.3 % High 11.5-15.0 [facility] Comment on above: Order Comment: Speci men Type: BLOOD SPECIMENOrdering Facility: [facility] Address: [address] [place] [address] Performed By: #### 5 8410-2 ####[facility]ATORYCLIA [id number] [address] Hematocrit (Bld) [Volume fraction] 33.3 % Low 39.0-51.0 [facility] Comment on above: Order Comment: Speci men Type: BLOOD SPECIMENOrdering Facility: [facility] Address: [address] [place] [address] Performed By: #### 5 8410-2 ####[facility]ORYCLIA [id number] [address] OF [facility] Hemoglobin (Bld) [Mass/Vol] 10.4 g/dL Low 13.0-17.0 [facility] Comment on above: Order Comment: Speci men Type: BLOOD SPECIMENOrdering Facility: [facility] Address: [address] [place] [address] Performed By: #### 5 8410-2 ####[facility]ATORYCLIA [id number] [address] MCH (RBC) [Entitic mass] 29.9 pg Normal 26.0-34.0 [facility] Comment on above: Order Comment: Speci men Type: BLOOD SPECIMENOrdering Facility: [facility] Address: [address] [place] [address] Performed By: #### 5 8410-2 ####[facility]ORYCLIA [id number] [address] [place] MCHC (RBC) [Mass/Vol] 31.2 g/dL Normal 30.5-36.0 [facility] Comment on above: Order Comment: Speci men Type: BLOOD SPECIMENOrdering Facility: [facility] Address: [address] [place] [address] Performed By: #### 5 8410-2 ####[facility]ATORYCLIA [id number] [address] [place] MCV (RBC) [Entitic vol] 95.7 fL Normal 80.0-100.0 [facility] Comment on above: Order Comment: Speci men Type: BLOOD SPECIMENOrdering Facility: [facility] Address: [address] [place] [address] Performed By: #### 5 8410-2 ####[facility]ORYCLIA [id number] [place] [address] [place] Nucleated RBC (Bld) [#/Vol] 10*3/uL Normal <0.01 [facility] Comment on above: Order Comment: Speci men Type: BLOOD SPECIMENOrdering Facility: [facility] Address: [address] [place] [address] Performed By: #### 5 8410-2 ####[facility]ATORYCLIA [id number] [place] [address] [place] Platelet mean volume (Bld) [Entitic vol] 10.7 fL Normal 9.0-12.7 [facility] Comment on above: Order Comment: Speci men Type: BLOOD SPECIMENOrdering Facility: [facility] Address: [address] [place] [address] Performed By: #### 5 8410-2 ####[facility]ORYCLIA [id number] [place] [address] [place] Platelets (Bld) [#/Vol] 278 10*3/uL Normal 150-400 [facility] Comment on above: Order Comment: Speci men Type: BLOOD SPECIMENOrdering Facility: [facility] Address: [address] [place] [address] Performed By: #### 5 8410-2 ####[facility]ORYCLIA [id number] [place] [address] [place] RBC (Bld) [#/Vol] 3.48 10*6/uL Low 4.20-6.00 [facility] Comment on above: Order Comment: Speci men Type: BLOOD SPECIMENOrdering Facility: [facility] Address: [address] [place] [address] Performed By: #### 5 8410-2 ####[facility]ORYCLIA [id number] [place] [address] [place] WBC (Bld) [#/Vol] 22.36 10*3/uL High 3.70-11.00 [facility] Comment on above: Order Comment: Speci men Type: BLOOD SPECIMENOrdering Facility: [facility] Address: [address] [place] [address] Performed By: #### 5 8410-2 ####[facility]ATORYCLIA [id number] [address] [place] CONSULT PROGon 06-15-2024 CONSULT PROG Normal [facility] CT CHEST WO IVCONon 06-15-[address] CHEST WO IVCON Normal [facility] Trigl SerPl-mCncon 4 Triglyceride [Mass/Vol] 130 mg/dL Normal <150 [facility] Comment on above: Order Comment: Speci men Type: BLOOD SPECIMENOrdering Facility: [facility] Address: [address] [place] [address] Result Comment: <150 mg/dL, Normal 150-199 mg/dL, Borderline high 200-499 mg/dL, High>499 mg/dL, Very highReference:1. National Cholesterol Education Program ATP III Guideline At-A-Glance Quick Desk Reference: National Heart, Lung, and Blood [place]. National Institutes of Health. 2001: NIH Publication No. 01-3305. Performed By: #### 2 4321-2, 2571-8 ####[facility]ORYCLIA [id number] [address] STATES OF [facility] Triglyceride [Mass/Vol]on FASTING TIME unknown Normal [facility] Comment on above: Order Comment: Speci men Type: BLOOD SPECIMENOrdering Facility: [facility] Address: [address] [place] [address] Performed By: #### 2 4321-2, 2571-8 ####[facility]ATORYCLIA [id number] [address] [place] Vancomycin random [Mass/Vol] on 06-15-2024 Vancomycin [Mass/Vol] 6.6 ug/mL Low 10.0-20.0 [facility] Comment on above: Order Comment: Speci men Type: BLOOD SPECIMENOrdering Facility: [facility] Address: [address] [place] [address] Result Comment: Refe rence ranges and high/low indicator flags are provided as general guidelines only. The treating physician must determine appropriate target levels/dosing based on the specific clinical situation. Performed By: #### 4 091-5 ####[facility]ORYCLIA [id number] [place] [address] [place] XR CHEST 1V FRONTALon 2023 XR CHEST 1V FRONTAL Normal [facility] ALLIED HEALTHon 06-14-2024 ALLIED HEALTH Normal [facility] Bacteria Spec Resp Culton Bacteria identified Respiratory culture Nom (Unsp spec) CULTURE, RESPIRATORY: Few Normal respiratory chente present GRAM STAIN: Few Mixed oral chente Few Polymorphonuclear leukocytes Abnormal [facility] Comment on above: Performed By: #### 3 2355-0 ####[facility]ORYCLIA [id number] [place] [address] [place] Basic metabolic 2000 panelon 06-14-2024 Anion gap [Moles/Vol] 9 mmol/L Normal 8-15 [facility] Comment on above: Order Comment: Speci men Type: BLOOD SPECIMENOrdering Facility: [facility] Address: [address] [place] [address] Performed By: #### 1 9123-9, 2777-1, 70665-3, 36624-8 ####[facility]ORYCLIA [id number] [place] [address] [place] Calcium [Mass/Vol] 8.4 mg/dL Low 8.5-10.2 [facility] Comment on above: Order Comment: Speci men Type: BLOOD SPECIMENOrdering Facility: [facility] Address: [address] [place] [id number] Performed By: #### 1 9123-9, 2777-1, 42270-1, 31102-3 ####[facility]ORYCLIA [id number] [address] OF [facility] Chloride [Moles/Vol] 112 mmol/L High 98-107 [facility] Comment on above: Order Comment: Speci men Type: BLOOD SPECIMENOrdering Facility: [facility] Address: [address] [place] [address] Performed By: #### 1 9123-9, 2777-1, 27210-8, 38703-0 ####[facility]ORYCLIA [id number] [address] OF [facility] CO2 [Moles/Vol] 28 mmol/L Normal 22-30 [facility] Comment on above: Order Comment: Speci men Type: BLOOD SPECIMENOrdering Facility: [facility] Address: [address] [place] [address] Performed By: #### 1 9123-9, 2777-1, 90925-1, 35232-7 ####[facility]ITALIA [id number] [address] Creatinine [Mass/Vol] 0.67 mg/dL Low 0.73-1.22 [facility] Comment on above: Order Comment: Speci men Type: BLOOD SPECIMENOrdering Facility: [facility] Address: [address] [place] [address] Performed By: #### 1 9123-9, 2777-1, 52542-7, 36218-4 ####[facility]ATORYCLIA [id number] [address] Creatinine and Glomerular filtration rate.predicted panel (S/P/Bld) 106 mL/min/1.73m??? Normal >=60 [facility] Comment on above: Order Comment: Speci men Type: BLOOD SPECIMENOrdering Facility: [facility] Address: [address] [place] [address] Result Comment: Aury mated Glomerular Filtration Rate (eGFR) is calculated using the 2020 CKD-EPI creatinine equation. This equation utilizes serum creatinine, sex, and age as parameters. The creatinine assay has traceable calibration to isotope dilution-mass spectrometry. Refer to KDIGO guidelines for clinical interpretation. In patients with unstable renal function, e.g. those with acute kidney injury, the eGFR may not accurately reflect actual GFR. Performed By: #### 1 9123-9, 2777-1, 67679-8, 26359-8 ####[facility]ORYCLIA [id number] [place] [address] [place] Glucose [Mass/Vol] 130 mg/dL High 74-99 [facility] Comment on above: Order Comment: Lele ying Type: BLOOD SPECIMENOrdering Facility: [facility] Address: [address] [place] [address] Result Comment: The [place] Diabetes Association (ADA) provides guidance for cutoff values for fasting glucose and random glucose. The ADA defines fasting as no caloric intake for at least 8 hours. Fasting plasma glucose results between 100 to 125 mg/dL indicate increased risk for diabetes (prediabetes).Fasting plasma glucose results greater than or equal to 126 mg/dL meet the criteria for diagnosis of diabetes. In the absence of unequivocal hyperglycemia, results should be confirmed by repeat testing. In a patient with classic symptoms of hyperglycemia or hyperglycemic crisis, random plasma glucose results greater than or equal to 200 mg/dL meet the criteria for diagnosis of diabetes.Reference: Standards of Medical Care in Diabetes 2016, [place] [employer] Association. Diabetes Care. 2016.39(Suppl 1). Performed By: #### 1 9123-9, 2777-1, 35385-4, 27634-2 ####[facility]ORYCLIA [id number] [place] [address] [place] Potassium [Moles/Vol] 3.8 mmol/L Normal 3.7-5.1 [facility] Comment on above: Order Comment: Lele ying Type: BLOOD SPECIMENOrdering Facility: [facility] Address: [address] [place] [address] Performed By: #### 1 9123-9, 2777-1, 34167-3, 06353-8 ####[facility]ORYCLIA [id number] [place] [address] [place] Sodium [Moles/Vol] 149 mmol/L High 136-144 [facility] Comment on above: Order Comment: Speci men Type: BLOOD SPECIMENOrdering Facility: [facility] Address: [address] [place] [address] Performed By: #### 1 9123-9, 2777-1, 16056-1, 82735-8 ####[facility]ATORYCLIA [id number] [place] [address] [place] Urea nitrogen [Mass/Vol] 37 mg/dL High 9-24 [facility] Comment on above: Order Comment: Speci men Type: BLOOD SPECIMENOrdering Facility: [facility] Address: [address] [place] [address] Performed By: #### 1 9123-9, 2771, 78513-5, 72027-6 ####[facility]ORYCLIA [id number] [place] [address] [place] Anion gap [Moles/Vol] 11 mmol/L Normal 8-15 [facility] Comment on above: Order Comment: Speci men Type: BLOOD SPECIMENOrdering Facility: [facility] Address: [address] [place] [address] Performed By: #### 1 9123-9, 12403-3 ####[facility]ORYCLIA [id number] [place] [address] [place] Calcium [Mass/Vol] 8.4 mg/dL Low 8.5-10.2 [facility] Comment on above: Order Comment: Speci men Type: BLOOD SPECIMENOrdering Facility: [facility] Address: [address] [place] [address] Performed By: #### 1 9123-9, 11974-5 ####[facility]ORYCLIA [id number] [place] [address] [place] Chloride [Moles/Vol] 114 mmol/L High 98-107 [facility] Comment on above: Order Comment: Speci men Type: BLOOD SPECIMENOrdering Facility: [facility] Address: [address] [place] [address] Performed By: #### 1 9123-9, 60892-4 ####[facility]ATORYCLIA [id number] [place] [address] [place] CO2 [Moles/Vol] 27 mmol/L Normal 22-30 [facility] Comment on above: Order Comment: Speci men Type: BLOOD SPECIMENOrdering Facility: [facility] Address: [address] [place] [address] Performed By: #### 1 9123-9, 68126-3 ####[facility]ORYCLIA [id number] [address] [place] Creatinine [Mass/Vol] 0.57 mg/dL Low 0.73-1.22 [facility] Comment on above: Order Comment: Speci men Type: BLOOD SPECIMENOrdering Facility: [facility] Address: [address] [place] [address] Performed By: #### 1 9123-9, 04867-8 ####[facility]ITALIA [id number] [address] Creatinine and Glomerular filtration rate.predicted panel (S/P/Bld) 111 mL/min/1.73m??? Normal >=60 [facility] Comment on above: Order Comment: Speci men Type: BLOOD SPECIMENOrdering Facility: [facility] Address: [address] [place] [address] Result Comment: Aury mated Glomerular Filtration Rate (eGFR) is calculated using the 2020 CKD-EPI creatinine equation. This equation utilizes serum creatinine, sex, and age as parameters. The creatinine assay has traceable calibration to isotope dilution-mass spectrometry. Refer to KDIGO guidelines for clinical interpretation. In patients with unstable renal function, e.g. those with acute kidney injury, the eGFR may not accurately reflect actual GFR. Performed By: #### 1 9123-9, 22319-6 ####[facility]ORYCLIA [id number] [address] [place] Glucose [Mass/Vol] 134 mg/dL High 74-99 [facility] Comment on above: Order Comment: Speci men Type: BLOOD SPECIMENOrdering Facility: [facility] Address: [address] [place] [address] Result Comment: The [place] Diabetes Association (ADA) provides guidance for cutoff values for fasting glucose and random glucose. The ADA defines fasting as no caloric intake for at least 8 hours. Fasting plasma glucose results between 100 to 125 mg/dL indicate increased risk for diabetes (prediabetes).Fasting plasma glucose results greater than or equal to 126 mg/dL meet the criteria for diagnosis of diabetes. In the absence of unequivocal hyperglycemia, results should be confirmed by repeat testing. In a patient with classic symptoms of hyperglycemia or hyperglycemic crisis, random plasma glucose results greater than or equal to 200 mg/dL meet the criteria for diagnosis of diabetes.Reference: Standards of Medical Care in Diabetes 2016, [place] [employer]. Diabetes Care. 2016.39(Suppl 1). Performed By: #### 1 9123-9, 86248-1 ####[facility]ORYCLIA [id number] [place] [address] [place] Potassium [Moles/Vol] 3.6 mmol/L Low 3.7-5.1 [facility] Comment on above: Order Comment: Speci men Type: BLOOD SPECIMENOrdering Facility: [facility] Address: [address] [place] [address] Performed By: #### 1 91, ####[facility]ATORYCLIA [id number] [place] [address] [place] Sodium [Moles/Vol] 152 mmol/L High 136-144 [facility] Comment on above: Order Comment: Speci men Type: BLOOD SPECIMENOrdering Facility: [facility] Address: [address] [place] [address] Performed By: #### 1 91239, 69054-6 ####[facility]ATORYCLIA [id number] [place] [address] [place] Urea nitrogen [Mass/Vol] 38 mg/dL High 9-24 [facility] Comment on above: Order Comment: Speci men Type: BLOOD SPECIMENOrdering Facility: [facility] Address: [address] [place] [address] Performed By: #### 1 9123-05, 01573-8 ####[facility]ORYCLIA [id number] [address] STATES OF [facility] CBC panel Auto (Bld)on 06-14 Erythrocyte distribution width (RBC) [Ratio] 15.0 % Normal 11.5-15.0 [facility] Comment on above: Order Comment: Speci men Type: BLOOD SPECIMENOrdering Facility: [facility] Address: [address] [place] [address] Performed By: #### 5 8410-2 ####[facility]ATORYCLIA [id number] [address] Hematocrit (Bld) [Volume fraction] 36.2 % Low 39.0-51.0 [facility] Comment on above: Order Comment: Speci men Type: BLOOD SPECIMENOrdering Facility: [facility] Address: [address] [place] [address] Performed By: #### 5 8410-2 ####[facility]ORYCLIA [id number] [address] Hemoglobin (Bld) [Mass/Vol] 11.1 g/dL Low 13.0-17.0 [facility] Comment on above: Order Comment: Speci men Type: BLOOD SPECIMENOrdering Facility: [facility] Address: [address] [place] [address] Performed By: #### 5 8410-2 ####[facility]ATORYCLIA [id number] [address] [place] [facility] MCH (RBC) [Entitic mass] 29.6 pg Normal 26.0-34.0 [facility] Comment on above: Order Comment: Speci men Type: BLOOD SPECIMENOrdering Facility: [facility] Address: [address] [place] [address] Performed By: #### 5 8410-2 ####[facility]ATORYCLIA [id number] [address] [place] MCHC (RBC) [Mass/Vol] 30.7 g/dL Normal 30.5-36.0 [facility] Comment on above: Order Comment: Speci men Type: BLOOD SPECIMENOrdering Facility: [facility] Address: [address] [place] [address] Performed By: #### 5 8410-2 ####[facility]ATORYCLIA [id number] [address] [place] MCV (RBC) [Entitic vol] 96.5 fL Normal 80.0-100.0 [facility] Comment on above: Order Comment: Speci men Type: BLOOD SPECIMENOrdering Facility: [facility] Address: [address] [place] [address] Performed By: #### 5 8410-2 ####[facility]ATORYCLIA [id number] [address] [place] Nucleated RBC (Bld) [#/Vol] 10*3/uL Normal <0.01 [facility] Comment on above: Order Comment: Speci men Type: BLOOD SPECIMENOrdering Facility: [facility] Address: [address] [place] [address] Performed By: #### 5 8410-2 ####[facility]ATORYCLIA [id number] [address] Platelet mean volume (Bld) [Entitic vol] 10.2 fL Normal 9.0-12.7 [facility] Comment on above: Order Comment: Speci men Type: BLOOD SPECIMENOrdering Facility: [facility] Address: [address] [place] [address] Performed By: #### 5 8410-2 ####[facility]ATORYCLIA [id number] [address] [place] Platelets (Bld) [#/Vol] 286 10*3/uL Normal 150-400 [facility] Comment on above: Order Comment: Speci men Type: BLOOD SPECIMENOrdering Facility: [facility] Address: [address] [place] [address] Performed By: #### 5 8410-2 ####[facility]ATORYCLIA [id number] [address] [place] RBC (Bld) [#/Vol] 3.75 10*6/uL Low 4.20-6.00 [facility] Comment on above: Order Comment: Speci men Type: BLOOD SPECIMENOrdering Facility: [facility] Address: [address] [place] [address] Performed By: #### 5 8410-2 ####[facility]ATORYCLIA [id number] [place] [address] [place] WBC (Bld) [#/Vol] 21.25 10*3/uL High 3.70-11.00 [facility] Comment on above: Order Comment: Speci men Type: BLOOD SPECIMENOrdering Facility: [facility] Address: [address] [place] [address] Performed By: #### 5 8410-2 ####[facility]ATORYCLIA [id number] [address] Calcium.ionized [Moles/Vol]o n 06-14-2024 Calcium.ionized (BldV) [Mass/Vol] 1.20 mmol/L Normal 1.08-1.30 [facility] Comment on above: Order Comment: Speci men Type: BLOOD SPECIMENOrdering Facility: [facility] Address: [address] [place] [address] Performed By: #### 1 995-0 ####[facility]ATORYCLIA [id number] [address] OF [facility] Calcium.ionized adjusted to pH 7.4 (Bld) [Moles/Vol] 1.17 mmol/L Normal 1.08-1.30 [facility] Comment on above: Order Comment: Speci men Type: BLOOD SPECIMENOrdering Facility: [facility] Address: [address] [place] [address] Performed By: #### 1 995-0 ####[facility]ATORYCLIA [id number] [address] [place] Hepatic function 2000 panelo n 06-14-2024 Albumin [Mass/Vol] 3.2 g/dL Low 3.9-4.9 [facility] Comment on above: Order Comment: Speci men Type: BLOOD SPECIMENOrdering Facility: [facility] Address: [address] [place] [address] Performed By: #### 1 9123-9, 2777-1, 01725-5, 22194-2 ####[facility]ATORYCLIA [id number] [address] ALP [Catalytic activity/Vol] 78 U/L Normal 38-113 [facility] Comment on above: Order Comment: Speci men Type: BLOOD SPECIMENOrdering Facility: [facility] Address: [address] [place] [address] Performed By: #### 1 9123-9, 2777-1, 74149-4, 37292-9 ####[facility]ORYCLIA [id number] [address] STATES OF [facility] ALT With P-5'-P [Catalytic activity/Vol] 29 U/L Normal 10-54 [facility] Comment on above: Order Comment: Speci men Type: BLOOD SPECIMENOrdering Facility: [facility] Address: [address] [place] [address] Performed By: #### 1 9123-9, 2777-1, 61362-3, 83781-5 ####[facility]ATORYCLIA [id number] [address] STATES OF [facility] AST With P-5'-P [Catalytic activity/Vol] 23 U/L Normal 14-40 [facility] Comment on above: Order Comment: Speci men Type: BLOOD SPECIMENOrdering Facility: [facility] Address: [address] [place] [address] Performed By: #### 1 9123-9, 2777-1, 59555-2, 16760-6 ####[facility]ATORYCLIA [id number] [address] STATES OF [facility] Bilirubin [Mass/Vol] 0.4 mg/dL Normal 0.2-1.3 [facility] Comment on above: Order Comment: Speci men Type: BLOOD SPECIMENOrdering Facility: [facility] Address: [address] [place] [address] Performed By: #### 1 9123-9, 2777-1, 31511-4, 94166-0 ####[facility]ORATORYCLIA [id number] [place] [address] [place] Bilirubin.conjugated [Mass/Vol] mg/dL Normal <0.2 [facility] Comment on above: Order Comment: Speci men Type: BLOOD SPECIMENOrdering Facility: [facility] Address: [address] [place] [address] Performed By: #### 1 9123-9, 2777-1, 24551-7, 20493-2 ####[facility]ATORYCLIA [id number] [place] [address] [place] Protein [Mass/Vol] 6.0 g/dL Low 6.3-8.0 [facility] Comment on above: Order Comment: Speci men Type: BLOOD SPECIMENOrdering Facility: [facility] Address: [address] [place] [address] Performed By: #### 1 9123-9, 2777-1, 75481-2, 01126-5 ####[facility]ATORYCLIA [id number] [place] [address] [place] Magnesium SerPl-mCncon 06-14 Magnesium [Mass/Vol] 1.9 mg/dL Normal 1.7-2.3 [facility] Comment on above: Order Comment: Speci men Type: BLOOD SPECIMENOrdering Facility: [facility] Address: [address] [place] [address] Performed By: #### 1 9123-9, 2777-1, 27502-3, 27414-7 ####[facility]ATORYCLIA [id number] [place] [address] [place] Magnesium [Mass/Vol] 2.1 mg/dL Normal 1.7-2.3 [facility] Comment on above: Order Comment: Speci men Type: BLOOD SPECIMENOrdering Facility: [facility] Address: [address] [place] [address] Performed By: #### 1 9123-9, 10973-5 ####[facility]ATORYCLIA [id number] [place] [address] [place] Phosphate SerPl-mCncon 06-14 Phosphate [Mass/Vol] 3.5 mg/dL Normal 2.7-4.8 [facility] Comment on above: Order Comment: Speci men Type: BLOOD SPECIMENOrdering Facility: [facility] Address: [address] [place] [address] Performed By: #### 1 9123-9, 2777-1, 30830-7, 95551-5 ####[facility]ATORYCLIA [id number] [place] [address] [place] Sodium SerPl-sCncon 06-14-20 Sodium [Moles/Vol] 149 mmol/L High 136-144 [facility] Comment on above: Order Comment: Speci men Type: BLOOD SPECIMENOrdering Facility: [facility] Address: [address] [place] [address] Performed By: #### 2 951-2 ####[facility]ATORYCLIA [id number] [place] [address] [place] XR CHEST 1V FRONTALon 2023 XR CHEST 1V FRONTAL Normal [facility] ALLIED HEALTHon 06-13-2024 ALLIED HEALTH Normal [facility] Bacteria Spec Resp Culton Bacteria identified Respiratory culture Nom (Unsp spec) Normal [facility] Comment on above: Performed By: #### 3 2355-0 ####[facility]ATORYCLIA [id number] [place] [address] [place] Basic metabolic 2000 panelon 06-13-2024 Anion gap [Moles/Vol] 12 mmol/L Normal 8-15 [facility] Comment on above: Order Comment: Speci men Type: BLOOD SPECIMENOrdering Facility: [facility] Address: [address] [place] [address] Performed By: #### 2 4321-2 ####[facility]ATORYCLIA [id number] [place] [address] [place] Calcium [Mass/Vol] 8.7 mg/dL Normal 8.5-10.2 [facility] Comment on above: Order Comment: Speci men Type: BLOOD SPECIMENOrdering Facility: [facility] Address: [address] [place] [address] Performed By: #### 2 4321-2 ####[facility]ATORYCLIA [id number] [place] [address] [place] Chloride [Moles/Vol] 114 mmol/L High 98-107 [facility] Comment on above: Order Comment: Speci men Type: BLOOD SPECIMENOrdering Facility: [facility] Address: [address] [place] [address] Performed By: #### 2 4321-2 ####[facility]ATORYCLIA [id number] [address] STATES OF [facility] CO2 [Moles/Vol] 27 mmol/L Normal 22-30 [facility] Comment on above: Order Comment: Speci men Type: BLOOD SPECIMENOrdering Facility: [facility] Address: [address] [place] [address] Performed By: #### 2 4321-2 ####[facility]ATORYCLIA [id number] [address] [place] Creatinine [Mass/Vol] 0.66 mg/dL Low 0.73-1.22 [facility] Comment on above: Order Comment: Speci men Type: BLOOD SPECIMENOrdering Facility: [facility] Address: [address] [place] [address] Performed By: #### 2 4321-2 ####[facility]ATORYCLIA [id number] [address] Creatinine and Glomerular filtration rate.predicted panel (S/P/Bld) 106 mL/min/1.73m??? Normal >=60 [facility] Comment on above: Order Comment: Speci men Type: BLOOD SPECIMENOrdering Facility: [facility] Address: [address] [place] [address] Result Comment: Aury mated Glomerular Filtration Rate (eGFR) is calculated using the 2020 CKD-EPI creatinine equation. This equation utilizes serum creatinine, sex, and age as parameters. The creatinine assay has traceable calibration to isotope dilution-mass spectrometry. Refer to KDIGO guidelines for clinical interpretation. In patients with unstable renal function, e.g. those with acute kidney injury, the eGFR may not accurately reflect actual GFR. Performed By: #### 2 4321-2 ####[facility]ATORYCLIA [id number] [place] [address] [place] Glucose [Mass/Vol] 130 mg/dL High 74-99 [facility] Comment on above: Order Comment: Lele ying Type: BLOOD SPECIMENOrdering Facility: [facility] Address: [address] [place] [address] Result Comment: The [place] Diabetes [employer] (ADA) provides guidance for cutoff values for fasting glucose and random glucose. The ADA defines fasting as no caloric intake for at least 8 hours. Fasting plasma glucose results between 100 to 125 mg/dL indicate increased risk for diabetes (prediabetes).Fasting plasma glucose results greater than or equal to 126 mg/dL meet the criteria for diagnosis of diabetes. In the absence of unequivocal hyperglycemia, results should be confirmed by repeat testing. In a patient with classic symptoms of hyperglycemia or hyperglycemic crisis, random plasma glucose results greater than or equal to 200 mg/dL meet the criteria for diagnosis of diabetes.Reference: Standards of Medical Care in Diabetes 2016, [place] [employer]. Diabetes Care. 2016.39(Suppl 1). Performed By: #### 2 4321-2 ####[facility]ATORYCLIA [id number] [place] [address] [place] Potassium [Moles/Vol] 3.5 mmol/L Low 3.7-5.1 [facility] Comment on above: Order Comment: Lele ying Type: BLOOD SPECIMENOrdering Facility: [facility] Address: [address] [id number] Performed By: #### 2 4321-2 ####[facility]ATORYCLIA [id number] [address] STATES OF [facility] Sodium [Moles/Vol] 153 mmol/L High 136-144 [facility] Comment on above: Order Comment: Speci men Type: BLOOD SPECIMENOrdering Facility: [facility] Address: [address] [place] [address] Performed By: #### 2 4321-2 ####[facility]ATORYCLIA [id number] [address] [place] Urea nitrogen [Mass/Vol] 39 mg/dL High 9-24 [facility] Comment on above: Order Comment: Speci men Type: BLOOD SPECIMENOrdering Facility: [facility] Address: [address] [place] [address] Performed By: #### 2 4321-2 ####[facility]ATORYCLIA [id number] [address] [place] CBC panel Auto (Bld)on 06-13 Erythrocyte distribution width (RBC) [Ratio] 14.9 % Normal 11.5-15.0 [facility] Comment on above: Order Comment: Speci men Type: BLOOD SPECIMENOrdering Facility: [facility] Address: [address] [place] [address] Performed By: #### 5 8410-2 ####[facility]ATORYCLIA [id number] [address] [place] Hematocrit (Bld) [Volume fraction] 36.5 % Low 39.0-51.0 [facility] Comment on above: Order Comment: Speci men Type: BLOOD SPECIMENOrdering Facility: [facility] Address: [address] [place] [address] Performed By: #### 5 8410-2 ####[facility]ATORYCLIA [id number] [address] [place] Hemoglobin (Bld) [Mass/Vol] 11.2 g/dL Low 13.0-17.0 [facility] Comment on above: Order Comment: Speci men Type: BLOOD SPECIMENOrdering Facility: [facility] Address: [address] [place] [address] Performed By: #### 5 8410-2 ####[facility]ATORYCLIA [id number] [address] MCH (RBC) [Entitic mass] 29.5 pg Normal 26.0-34.0 [facility] Comment on above: Order Comment: Speci men Type: BLOOD SPECIMENOrdering Facility: [facility] Address: [address] [place] [address] Performed By: #### 5 8410-2 ####[facility]ATORYCLIA [id number] [address] MCHC (RBC) [Mass/Vol] 30.7 g/dL Normal 30.5-36.0 [facility] Comment on above: Order Comment: Speci men Type: BLOOD SPECIMENOrdering Facility: [facility] Address: [address] [place] [address] Performed By: #### 5 8410-2 ####[facility]ATORYCLIA [id number] [address] MCV (RBC) [Entitic vol] 96.1 fL Normal 80.0-100.0 [facility] Comment on above: Order Comment: Speci men Type: BLOOD SPECIMENOrdering Facility: [facility] Address: [address] [place] [address] Performed By: #### 5 8410-2 ####[facility]ATORYCLIA [id number] [address] Nucleated RBC (Bld) [#/Vol] 10*3/uL Normal <0.01 [facility] Comment on above: Order Comment: Speci men Type: BLOOD SPECIMENOrdering Facility: [facility] Address: [address] [place] [address] Performed By: #### 5 8410-2 ####[facility]ATORYCLIA [id number] [address] Platelet mean volume (Bld) [Entitic vol] 9.9 fL Normal 9.0-12.7 [facility] Comment on above: Order Comment: Speci men Type: BLOOD SPECIMENOrdering Facility: [facility] Address: [address] [place] [address] Performed By: #### 5 8410-2 ####[facility]ATORYCLIA [id number] [address] OF [facility] Platelets (Bld) [#/Vol] 300 10*3/uL Normal 150-400 [facility] Comment on above: Order Comment: Speci men Type: BLOOD SPECIMENOrdering Facility: [facility] Address: [address] [place] [address] Performed By: #### 5 8410-2 ####[facility]ATORYCLIA [id number] [address] [place] RBC (Bld) [#/Vol] 3.80 10*6/uL Low 4.20-6.00 [facility] Comment on above: Order Comment: Speci men Type: BLOOD SPECIMENOrdering Facility: [facility] Address: [address] [place] [address] Performed By: #### 5 8410-2 ####[facility]ATORYCLIA [id number] [address] [place] WBC (Bld) [#/Vol] 16.05 10*3/uL High 3.70-11.00 [facility] Comment on above: Order Comment: Speci men Type: BLOOD SPECIMENOrdering Facility: [facility] Address: [address] [place] [address] Performed By: #### 5 8410-2 ####[facility]ORATORYCLIA [id number] [address] OF [facility] CONSULT PROGon 06-13-2024 CONSULT PROG Normal [facility] Gas and Carbon monoxide pane l (BldV)on 06-13-2024 Base excess Calc (BldV) [Moles/Vol] 6 mmol/L High 0-2 [facility] Comment on above: Order Comment: Speci men Type: VENOUS BLOOD SPECIMENOrdering Facility: [facility] Address: [address] [place] [address] Performed By: #### 2 4344-4 ####[facility]ATORYCLIA [id number] [address] Body temperature 101.3 [degF] Normal [facility] Comment on above: Order Comment: Speci men Type: VENOUS BLOOD SPECIMENOrdering Facility: [facility] Address: [address] [place] [address] Performed By: #### 2 4344-4 ####[facility]ATORYCLIA [id number] [address] [place] Calcium.ionized (BldV) [Mass/Vol] 1.15 mmol/L Normal 1.08-1.30 [facility] Comment on above: Order Comment: Speci men Type: VENOUS BLOOD SPECIMENOrdering Facility: [facility] Address: [address] [place] [address] Performed By: #### 2 4344-4 ####[facility]ATORYCLIA [id number] [address] Calcium.ionized adjusted to pH 7.4 (BldA) [Moles/Vol] 1.20 mmol/L Normal 1.08-1.30 [facility] Comment on above: Order Comment: Speci men Type: VENOUS BLOOD SPECIMENOrdering Facility: [facility] Address: [address] [place] [address] Performed By: #### 2 4344-4 ####[facility]ATORYCLIA [id number] [address] [place] Carboxyhemoglobin (BldV) [Mass fraction] 1.4 % Normal 0.0-2.0 [facility] Comment on above: Order Comment: Speci men Type: VENOUS BLOOD SPECIMENOrdering Facility: [facility] Address: [address] [place] [address] Result Comment: Carb oxyhemoglobin Reference Range for Smokers: 2.0-8.0% Performed By: #### 2 4344-4 ####[facility]ATORYCLIA [id number] [address] [place] Chloride [Moles/Vol] 118 mmol/L High 102-109 [facility] Comment on above: Order Comment: Speci men Type: VENOUS BLOOD SPECIMENOrdering Facility: [facility] Address: [address] [place] [address] Performed By: #### 2 4344-4 ####[facility]ORYCLIA [id number] [address] [place] CO2 (BldV) [Partial pressure] 40 mm[Hg] Low 42-55 [facility] Comment on above: Order Comment: Speci men Type: VENOUS BLOOD SPECIMENOrdering Facility: [facility] Address: [address] [place] [address] Performed By: #### 2 4344-4 ####[facility]ATORYCLIA [id number] [address] CO2 adjusted to patient's actual temperature (BldV) [Partial pressure] 43 mmHg Normal 42-55 [facility] Comment on above: Order Comment: Speci men Type: VENOUS BLOOD SPECIMENOrdering Facility: [facility] Address: [address] [place] [address] Performed By: #### 2 4344-4 ####[facility]ATORYCLIA [id number] [address] [place] FIO2 55 % Normal [facility] Comment on above: Order Comment: Speci men Type: VENOUS BLOOD SPECIMENOrdering Facility: [facility] Address: [address] [place] [address] Performed By: #### 2 4344-4 ####[facility]ORYCLIA [id number] [address] [place] Glucose [Mass/Vol] 145 mg/dL High 60-105 [facility] Comment on above: Order Comment: Speci men Type: VENOUS BLOOD SPECIMENOrdering Facility: [facility] Address: [address] [place] [address] Performed By: #### 2 4344-4 ####[facility]ORATORYCLIA [id number] [place] [address] [place] HCO3 (Bld) [Moles/Vol] 29 mmol/L High 24-28 [facility] Comment on above: Order Comment: Speci men Type: VENOUS BLOOD SPECIMENOrdering Facility: [facility] Address: [address] [place] [address] Performed By: #### 2 4344-4 ####[facility]ATORYCLIA [id number] [place] [address] [place] Hematocrit (Bld) [Volume fraction] 36.5 % Low 39.0-51.0 [facility] Comment on above: Order Comment: Speci men Type: VENOUS BLOOD SPECIMENOrdering Facility: [facility] Address: [address] [place] [address] Performed By: #### 2 4344-4 ####[facility]ORYCLIA [id number] [address] [place] Hemoglobin (Bld) [Mass/Vol] 11.9 g/dL Low 13.0-17.0 [facility] Comment on above: Order Comment: Speci men Type: VENOUS BLOOD SPECIMENOrdering Facility: [facility] Address: [address] [place] [address] Performed By: #### 2 4344-4 ####[facility]ORYCLIA [id number] [address] [place] INHALED TIDAL VOLUME (ML) 380 Normal [facility] Comment on above: Order Comment: Speci men Type: VENOUS BLOOD SPECIMENOrdering Facility: [facility] Address: [address] [place] [address] Performed By: #### 2 4344-4 ####[facility]ORYCLIA [id number] [address] [place] Lactate [Moles/Vol] 0.9 mmol/L Normal 0.5-2.2 [facility] Comment on above: Order Comment: Speci men Type: VENOUS BLOOD SPECIMENOrdering Facility: [facility] Address: [address] [place] [address] Performed By: #### 2 4344-4 ####[facility]ORYCLIA [id number] [address] Methemoglobin (Bld) [Mass fraction] 0.8 % Normal 0.0-1.5 [facility] Comment on above: Order Comment: Speci men Type: VENOUS BLOOD SPECIMENOrdering Facility: [facility] Address: [address] [place] [address] Performed By: #### 2 4344-4 ####[facility]ORATORYCLIA [id number] [address] O2 THERAPY VENT=Ventilator Normal [facility] Comment on above: Order Comment: Speci men Type: VENOUS BLOOD SPECIMENOrdering Facility: [facility] Address: [address] [place] [address] Performed By: #### 2 4344-4 ####[facility] LABORATORYCLIA [id number] [address] Oxygen (BldV) [Partial pressure] 124 mm[Hg] High 35-45 [facility] Comment on above: Order Comment: Speci men Type: VENOUS BLOOD SPECIMENOrdering Facility: [facility] Address: [address] [place] [address] Performed By: #### 2 4344-4 ####[facility]ATORYCLIA [id number] [address] Oxygen adjusted to patient's actual temperature (BldV) [Partial pressure] 132 mmHg High 35-45 [facility] Comment on above: Order Comment: Speci men Type: VENOUS BLOOD SPECIMENOrdering Facility: [facility] Address: [address] [place] [address] Performed By: #### 2 4344-4 ####[facility]ORY[facility] [id number] [address] [place] Oxygen saturation in Venous blood 98 % High 60-85 [facility] Comment on above: Order Comment: Speci men Type: VENOUS BLOOD SPECIMENOrdering Facility: [facility] Address: [address] [place] [address] Performed By: #### 2 4344-4 ####[facility]ATORYCLIA [id number] [place] [id number] [facility] Oxyhemoglobin (BldV) [Mass fraction] 96 % High 60-85 [facility] Comment on above: Order Comment: Speci men Type: VENOUS BLOOD SPECIMENOrdering Facility: [facility] Address: [address] [place] [address] Performed By: #### 2 4344-4 ####[facility]ATORYCLIA [id number] [place] [address] [place] PEEP/CPAP 6 cmH2O Normal [facility] Comment on above: Order Comment: Speci men Type: VENOUS BLOOD SPECIMENOrdering Facility: [facility] Address: [address] [place] [address] Performed By: #### 2 4344-4 ####[facility]ORYCLIA [id number] [address] [place] pH (BldV) 7.48 [pH] High 7.32-7.42 [facility] Comment on above: Order Comment: Speci men Type: VENOUS BLOOD SPECIMENOrdering Facility: [facility] Address: [address] [place] [address] Performed By: #### 2 4344-4 ####[facility]ATORYCLIA [id number] [address] pH adjusted to patient's actual temperature (BldV) 7.46 High 7.32-7.42 [facility] Comment on above: Order Comment: Speci men Type: VENOUS BLOOD SPECIMENOrdering Facility: [facility] Address: [address] [place] [address] Performed By: #### 2 4344-4 ####[facility]ATORYCLIA [id number] [address] [place] Potassium [Moles/Vol] 3.9 mmol/L Normal 3.5-5.0 [facility] Comment on above: Order Comment: Speci men Type: VENOUS BLOOD SPECIMENOrdering Facility: [facility] Address: [address] [place] [address] Performed By: #### 2 4344-4 ####[facility]ORYCLIA [id number] [address] SET VENTILATOR RESPIRATORY RATE (BPM) 20 BPM Normal [facility] Comment on above: Order Comment: Speci men Type: VENOUS BLOOD SPECIMENOrdering Facility: [facility] Address: [address] [place] [address] Performed By: #### 2 4344-4 ####[facility]ORYCLIA [id number] [address] STATES [facility] Sodium [Moles/Vol] 152 mmol/L High 136-144 [facility] Comment on above: Order Comment: Speci men Type: VENOUS BLOOD SPECIMENOrdering Facility: [facility] Address: [address] [place] [address] Performed By: #### 2 4344-4 ####[facility]ATORYCLIA [id number] [address] STAPHYLOCOCCUS AUREUS AND MR SA SCREEN, PCR, NASALon 06-13-2024 S. aureus and MRSA panel MANJU+probe (Nose) Methicillin-SUSCEPTIBLE Staphylococcus aureus Detected Abnormal Not Detected [facility] Comment on above: Order Comment: Speci men Type: SWABOrdering Facility: [facility] Address: [address] [place] [address] Performed By: #### S APCR ####[facility]ATORYCLIA [id number] [place] [address] [place] Sodium SerPl-sCncon 06-13-20 24 Sodium [Moles/Vol] 149 mmol/L High 136-144 [facility] Comment on above: Order Comment: Speci men Type: BLOOD SPECIMENOrdering Facility: [facility] Address: [address] [place] [address] Performed By: #### 2 951-2 ####[facility]ORYCLIA [id number] [place] [address] [place] XR CHEST 1V FRONTALon 2023 XR CHEST 1V FRONTAL Normal [facility] Basic metabolic 2000 panelon 06-12-2024 Anion gap [Moles/Vol] 10 mmol/L Normal 8-15 [facility] Comment on above: Order Comment: Speci men Type: BLOOD SPECIMENOrdering Facility: [facility] Address: [address] [place] [address] Performed By: #### 2 4321-2, 2776-09, ####[facility]ATORYCLIA [id number] [place] [address] [place] Calcium [Mass/Vol] 8.5 mg/dL Normal 8.5-10.2 [facility] Comment on above: Order Comment: Speci men Type: BLOOD SPECIMENOrdering Facility: [facility] Address: [address] [place] [address] Performed By: #### 2 4321-2, 2776-09, ####[facility]ATORYCLIA [id number] [place] [address] [place] Chloride [Moles/Vol] 108 mmol/L High 98-107 [facility] Comment on above: Order Comment: Speci men Type: BLOOD SPECIMENOrdering Facility: [facility] Address: [address] [place] [address] Performed By: #### 2 4321-2, 2776-09, ####[facility]ATORYCLIA [id number] [place] [address] [place] CO2 [Moles/Vol] 29 mmol/L Normal 22-30 [facility] Comment on above: Order Comment: Speci men Type: BLOOD SPECIMENOrdering Facility: [facility] Address: [address] [place] [address] Performed By: #### 2 4321-2, 2776-09, ####[facility]ATORYCLIA [id number] [place] [address] [place] Creatinine [Mass/Vol] 0.61 mg/dL Low 0.73-1.22 [facility] Comment on above: Order Comment: Lele ying Type: BLOOD SPECIMENOrdering Facility: [facility] Address: [address] [place] [address] Performed By: #### 2 4321-2, 2777-, ####[facility]ATORYCLIA [id number] [address] OF [place] Creatinine and Glomerular filtration rate.predicted panel (S/P/Bld) 109 mL/min/1.73m??? Normal >=60 [facility] Comment on above: Order Comment: Lele ying Type: BLOOD SPECIMENOrdering Facility: [facility] Address: [address] [place] [address] Result Comment: Aury mated Glomerular Filtration Rate (eGFR) is calculated using the 2020 CKD-EPI creatinine equation. This equation utilizes serum creatinine, sex, and age as parameters. The creatinine assay has traceable calibration to isotope dilution-mass spectrometry. Refer to KDIGO guidelines for clinical interpretation. In patients with unstable renal function, e.g. those with acute kidney injury, the eGFR may not accurately reflect actual GFR. Performed By: #### 2 4321-2, 2776-09, ####[facility]ATORYCLIA [id number] [place] [address] [place] Glucose [Mass/Vol] 110 mg/dL High 74-99 [facility] Comment on above: Order Comment: Lele ying Type: BLOOD SPECIMENOrdering Facility: [facility] Address: [address] [place] [address] Result Comment: The [place] Diabetes [employer] (ADA) provides guidance for cutoff values for fasting glucose and random glucose. The ADA defines fasting as no caloric intake for at least 8 hours. Fasting plasma glucose results between 100 to 125 mg/dL indicate increased risk for diabetes (prediabetes).Fasting plasma glucose results greater than or equal to 126 mg/dL meet the criteria for diagnosis of diabetes. In the absence of unequivocal hyperglycemia, results should be confirmed by repeat testing. In a patient with classic symptoms of hyperglycemia or hyperglycemic crisis, random plasma glucose results greater than or equal to 200 mg/dL meet the criteria for diagnosis of diabetes.Reference: Standards of Medical Care in Diabetes 2016, [place] [employer]. Diabetes Care. 2016.39(Suppl 1). Performed By: #### 2 4321-2, 277-, ####[facility]ATORYCLIA [id number] [place] [address] [place] Potassium [Moles/Vol] 3.6 mmol/L Low 3.7-5.1 [facility] Comment on above: Order Comment: Speci men Type: BLOOD SPECIMENOrdering Facility: [facility] Address: [address] [place] [address] Performed By: #### 2 4321-2, 27703-02, ####[facility]ATORYCLIA [id number] [address] [place] Sodium [Moles/Vol] 147 mmol/L High 136-144 [facility] Comment on above: Order Comment: Speci men Type: BLOOD SPECIMENOrdering Facility: [facility] Address: [address] [place] [address] Performed By: #### 2 4321-2, 27703-02, ####[facility]ATORYCLIA [id number] [address] [place] Urea nitrogen [Mass/Vol] 38 mg/dL High 9-24 [facility] Comment on above: Order Comment: Speci men Type: BLOOD SPECIMENOrdering Facility: [facility] Address: [address] [place] [address] Performed By: #### 2 4321-2, 2776-09, ####[facility]ATORYCLIA [id number] [place] [id number] [place] CASE MANAGEMon 06-12-2024 CASE MANAGEM Normal [facility] CBC panel Auto (Bld)on 06-12 Erythrocyte distribution width (RBC) [Ratio] 14.6 % Normal 11.5-15.0 [facility] Comment on above: Order Comment: Speci men Type: BLOOD SPECIMENOrdering Facility: [facility] Address: [address] [place] [address] Performed By: #### 5 8410-2 ####[facility]ATORYCLIA [id number] [address] Hematocrit (Bld) [Volume fraction] 33.5 % Low 39.0-51.0 [facility] Comment on above: Order Comment: Speci men Type: BLOOD SPECIMENOrdering Facility: [facility] Address: [address] [place] [address] Performed By: #### 5 8410-2 ####[facility]ATORYCLIA [id number] [address] OF [facility] Hemoglobin (Bld) [Mass/Vol] 10.7 g/dL Low 13.0-17.0 [facility] Comment on above: Order Comment: Speci men Type: BLOOD SPECIMENOrdering Facility: [facility] Address: [address] [place] [address] Performed By: #### 5 8410-2 ####[facility]ATORYCLIA [id number] [address] STATES OF [facility] MCH (RBC) [Entitic mass] 30.1 pg Normal 26.0-34.0 [facility] Comment on above: Order Comment: Speci men Type: BLOOD SPECIMENOrdering Facility: [facility] Address: [address] [place] [address] Performed By: #### 5 8410-2 ####[facility]ORYCLIA [id number] [address] [place] MCHC (RBC) [Mass/Vol] 31.9 g/dL Normal 30.5-36.0 [facility] Comment on above: Order Comment: Speci men Type: BLOOD SPECIMENOrdering Facility: [facility] Address: [address] [place] [address] Performed By: #### 5 8410-2 ####[facility]ATORYCLIA [id number] [address] [place] MCV (RBC) [Entitic vol] 94.1 fL Normal 80.0-100.0 [facility] Comment on above: Order Comment: Speci men Type: BLOOD SPECIMENOrdering Facility: [facility] Address: [address] [place] [address] Performed By: #### 5 8410-2 ####[facility]ORYCLIA [id number] [address] [place] Nucleated RBC (Bld) [#/Vol] 10*3/uL Normal <0.01 [facility] Comment on above: Order Comment: Speci men Type: BLOOD SPECIMENOrdering Facility: [facility] Address: [address] [place] [address] Performed By: #### 5 8410-2 ####[facility]ORYCLIA [id number] [address] [place] Platelet mean volume (Bld) [Entitic vol] 9.9 fL Normal 9.0-12.7 [facility] Comment on above: Order Comment: Speci men Type: BLOOD SPECIMENOrdering Facility: [facility] Address: [address] [place] [address] Performed By: #### 5 8410-2 ####[facility]ORYCLIA [id number] [address] [place] Platelets (Bld) [#/Vol] 265 10*3/uL Normal 150-400 [facility] Comment on above: Order Comment: Speci men Type: BLOOD SPECIMENOrdering Facility: [facility] Address: [address] [place] [address] Performed By: #### 5 8410-2 ####[facility]ORYCLIA [id number] [address] [place] RBC (Bld) [#/Vol] 3.56 10*6/uL Low 4.20-6.00 [facility] Comment on above: Order Comment: Speci men Type: BLOOD SPECIMENOrdering Facility: [facility] Address: [address] [place] [address] Performed By: #### 5 8410-2 ####[facility]ORYCLIA [id number] [address] [place] WBC (Bld) [#/Vol] 14.47 10*3/uL High 3.70-11.00 [facility] Comment on above: Order Comment: Speci men Type: BLOOD SPECIMENOrdering Facility: [facility] Address: [address] [place] [address] Performed By: #### 5 8410-2 ####[facility]ORYCLIA [id number] [address] OF [facility] Gas and Carbon monoxide pane l (BldV)on 06-12-2024 Base excess Calc (BldV) [Moles/Vol] 8 mmol/L High 0-2 [facility] Comment on above: Order Comment: Speci men Type: VENOUS BLOOD SPECIMENOrdering Facility: [facility] Address: [address] [place] [address] Performed By: #### 2 4344-4 ####[facility]ORYCLIA [id number] [address] Body temperature 99.14 [degF] Normal [facility] Comment on above: Order Comment: Speci men Type: VENOUS BLOOD SPECIMENOrdering Facility: [facility] Address: [address] [place] [address] Performed By: #### 2 4344-4 ####[facility]ORYCLIA [id number] [address] Calcium.ionized (BldV) [Mass/Vol] 1.12 mmol/L Normal 1.08-1.30 [facility] Comment on above: Order Comment: Speci men Type: VENOUS BLOOD SPECIMENOrdering Facility: [facility] Address: [address] [place] [address] Performed By: #### 2 4344-4 ####[facility]ORYCLIA [id number] [address] [place] Calcium.ionized adjusted to pH 7.4 (BldA) [Moles/Vol] 1.16 mmol/L Normal 1.08-1.30 [facility] Comment on above: Order Comment: Speci men Type: VENOUS BLOOD SPECIMENOrdering Facility: [facility] Address: [address] [place] [address] Performed By: #### 2 4344-4 ####[facility]ATORYCLIA [id number] [place] [address] [facility] OF [place] Carboxyhemoglobin (BldV) [Mass fraction] 1.4 % Normal 0.0-2.0 [facility] Comment on above: Order Comment: Speci men Type: VENOUS BLOOD SPECIMENOrdering Facility: [facility] Address: [address] [place] [address] Performed By: #### 2 4344-4 ####[facility]ORYCLIA [id number] [address] Chloride [Moles/Vol] 112 mmol/L High 102-109 [facility] Comment on above: Order Comment: Speci men Type: VENOUS BLOOD SPECIMENOrdering Facility: [facility] Address: [address] [place] [address] Performed By: #### 2 4344-4 ####[facility]ORYCLIA [id number] [address] CO2 (BldV) [Partial pressure] 44 mm[Hg] Normal 42-55 [facility] Comment on above: Order Comment: Speci men Type: VENOUS BLOOD SPECIMENOrdering Facility: [facility] Address: [address] [place] [address] Performed By: #### 2 4344-4 ####[facility]ORYCLIA [id number] [place], [place] [address] [place] [address] [place] CO2 adjusted to patient's actual temperature (BldV) [Partial pressure] 44 mmHg Normal 42-55 [facility] Comment on above: Order Comment: Speci men Type: VENOUS BLOOD SPECIMENOrdering Facility: [facility] Address: [address] [place] [address] Performed By: #### 2 4344-4 ####[facility]ORYCLIA [id number] [address] [place] FIO2 50 % Normal [facility] Comment on above: Order Comment: Speci men Type: VENOUS BLOOD SPECIMENOrdering Facility: [facility] Address: [facility] [place] [address] Performed By: #### 2 4344-4 ####[facility]ORYCLIA [id number] [address] [place] Glucose [Mass/Vol] 118 mg/dL High 60-105 [facility] Comment on above: Order Comment: Speci men Type: VENOUS BLOOD SPECIMENOrdering Facility: [facility] Address: [address] [place] [address] Performed By: #### 2 4344-4 ####[facility]ORYCLIA [id number] [address] [place] HCO3 (Bld) [Moles/Vol] 32 mmol/L High 24-28 [facility] Comment on above: Order Comment: Speci men Type: VENOUS BLOOD SPECIMENOrdering Facility: [facility] Address: [address] [place] [address] Performed By: #### 2 4344-4 ####[facility]ORYCLIA [id number] [address] [place] Hematocrit (Bld) [Volume fraction] 33.9 % Low 39.0-51.0 [facility] Comment on above: Order Comment: Speci men Type: VENOUS BLOOD SPECIMENOrdering Facility: [facility] Address: [address] [place] [address] Performed By: #### 2 4344-4 ####[facility]ORYCLIA [id number] [place] [address] [place] Hemoglobin (Bld) [Mass/Vol] 11.0 g/dL Low 13.0-17.0 [facility] Comment on above: Order Comment: Speci men Type: VENOUS BLOOD SPECIMENOrdering Facility: [facility] Address: [facility] [place] [address] Performed By: #### 2 4344-4 ####[facility]ORYCLIA [id number] [address] [place] Lactate [Moles/Vol] 0.9 mmol/L Normal 0.5-2.2 [facility] Comment on above: Order Comment: Speci men Type: VENOUS BLOOD SPECIMENOrdering Facility: [facility] Address: [address] [place] [address] Performed By: #### 2 4344-4 ####[facility]ORYCLIA [id number] [address] [place] Methemoglobin (Bld) [Mass fraction] 0.8 % Normal 0.0-1.5 [facility] Comment on above: Order Comment: Speci men Type: VENOUS BLOOD SPECIMENOrdering Facility: [facility] Address: [address] [place] [address] Performed By: #### 2 4344-4 ####[facility]ORYCLIA [id number] [address] O2 THERAPY VENT=Ventilator Normal [facility] Comment on above: Order Comment: Speci men Type: VENOUS BLOOD SPECIMENOrdering Facility: [facility] Address: [address] [place] [address] Performed By: #### 2 4344-4 ####[facility]ORYCLIA [id number] [address] OF [place] Oxygen (BldV) [Partial pressure] 175 mm[Hg] High 35-45 [facility] Comment on above: Order Comment: Speci men Type: VENOUS BLOOD SPECIMENOrdering Facility: [facility] Address: [address] [place] [address] Performed By: #### 2 4344-4 ####[facility]ORYCLIA [id number] [address] Oxygen adjusted to patient's actual temperature (BldV) [Partial pressure] 176 mmHg High 35-45 [facility] Comment on above: Order Comment: Speci men Type: VENOUS BLOOD SPECIMENOrdering Facility: [facility] Address: [address] [place] [address] Performed By: #### 2 4344-4 ####[facility]ORYCLIA [id number] [address] [place] Oxygen saturation in Venous blood 99 % High 60-85 [facility] Comment on above: Order Comment: Speci men Type: VENOUS BLOOD SPECIMENOrdering Facility: [facility] Address: [address] [place] [address] Performed By: #### 2 4344-4 ####[facility]ORYCLIA [id number] [address] [place] Oxyhemoglobin (BldV) [Mass fraction] 97 % High 60-85 [facility] Comment on above: Order Comment: Speci men Type: VENOUS BLOOD SPECIMENOrdering Facility: [facility] Address: [address] [place] [address] Performed By: #### 2 4344-4 ####[facility]ORYCLIA [id number] [place] [address] [place] PEEP/CPAP 6 cmH2O Normal [facility] Comment on above: Order Comment: Speci men Type: VENOUS BLOOD SPECIMENOrdering Facility: [facility] Address: [address] [place] [address] Performed By: #### 2 4344-4 ####[facility]ORYCLIA [id number] [address] [place] pH (BldV) 7.48 [pH] High 7.32-7.42 [facility] Comment on above: Order Comment: Speci men Type: VENOUS BLOOD SPECIMENOrdering Facility: [facility] Address: [address] [place] [address] Performed By: #### 2 4344-4 ####[facility]ORYCLIA [id number] [address] [place] pH adjusted to patient's actual temperature (BldV) 7.47 High 7.32-7.42 [facility] Comment on above: Order Comment: Speci men Type: VENOUS BLOOD SPECIMENOrdering Facility: [facility] Address: [address] [place] [address] Performed By: #### 2 4344-4 ####[facility]ORYCLIA [id number] [place] [address] [place] Potassium [Moles/Vol] 3.4 mmol/L Low 3.5-5.0 [facility] Comment on above: Order Comment: Speci men Type: VENOUS BLOOD SPECIMENOrdering Facility: [facility] Address: [address] [place] [address] Performed By: #### 2 4344-4 ####[facility]ORYCLIA [id number] [place] [address] [place] Sodium [Moles/Vol] 147 mmol/L High 136-144 [facility] Comment on above: Order Comment: Speci men Type: VENOUS BLOOD SPECIMENOrdering Facility: [facility] Address: [address] [place] [address] Performed By: #### 2 4344-4 ####[facility]ORYCLIA [id number] [place] [address] [place] Magnesium SerPl-mCncon 06-12 Magnesium [Mass/Vol] 2.2 mg/dL Normal 1.7-2.3 [facility] Comment on above: Order Comment: Speci men Type: BLOOD SPECIMENOrdering Facility: [facility] Address: [address] [place] [address] Performed By: #### 2 4321-2, 2777, ####[facility]ORYCLIA [id number] [place] [address] [place] Phosphate SerPl-mCncon 06-12 Phosphate [Mass/Vol] 3.0 mg/dL Normal 2.7-4.8 [facility] Comment on above: Order Comment: Speci men Type: BLOOD SPECIMENOrdering Facility: [facility] Address: [address] [place] [address] Performed By: #### 2 4321-2, 2777, ####[facility]ORYCLIA [id number] [place] [address] [place] XR CHEST 1V FRONTALon 2023 XR CHEST 1V FRONTAL Normal [facility] XR CHEST 1V FRONTAL Normal [facility] ALLIED HEALTHon 06-11-2024 ALLIED HEALTH Normal [facility] Basic metabolic 2000 panelon 06-11-2024 Anion gap [Moles/Vol] 11 mmol/L Normal 8-15 [facility] [facility] Comment on above: Order Comment: Speci men Type: BLOOD SPECIMENOrdering Facility: [facility] Address: [address] [place] [address] Performed By: #### 2 4321-2 ####[facility]ORYCLIA [id number] [place] [address] [place] Calcium [Mass/Vol] 8.5 mg/dL Normal 8.5-10.2 [facility] Comment on above: Order Comment: Speci men Type: BLOOD SPECIMENOrdering Facility: [facility] Address: [address] [place] [address] Performed By: #### 2 4321-2 ####[facility]ATORYCLIA [id number] [place] [address] [place] Chloride [Moles/Vol] 103 mmol/L Normal 98-107 [facility] Comment on above: Order Comment: Speci men Type: BLOOD SPECIMENOrdering Facility: [facility] Address: [address] [place] [address] Performed By: #### 2 4321-2 ####[facility]ATORYCLIA [id number] [place] [address] [place] CO2 [Moles/Vol] 30 mmol/L Normal 22-30 [facility] Comment on above: Order Comment: Speci men Type: BLOOD SPECIMENOrdering Facility: [facility] Address: [address] [place] [address] Performed By: #### 2 4321-2 ####[facility]ORYCLIA [id number] [place] [address] [place] Creatinine [Mass/Vol] 0.59 mg/dL Low 0.73-1.22 [facility] Comment on above: Order Comment: Jeanalisia ying Type: BLOOD SPECIMENOrdering Facility: [facility] Address: [address] [place] [address] Performed By: #### 2 4321-2 ####[facility]ORYCLIA [id number] [place] [address] [place] Creatinine and Glomerular filtration rate.predicted panel (S/P/Bld) 110 mL/min/1.73m??? Normal >=60 [facility] Comment on above: Order Comment: Lele ying Type: BLOOD SPECIMENOrdering Facility: [facility] Address: [address] [place] [address] Result Comment: Aury mated Glomerular Filtration Rate (eGFR) is calculated using the 2020 CKD-EPI creatinine equation. This equation utilizes serum creatinine, sex, and age as parameters. The creatinine assay has traceable calibration to isotope dilution-mass spectrometry. Refer to KDIGO guidelines for clinical interpretation. In patients with unstable renal function, e.g. those with acute kidney injury, the eGFR may not accurately reflect actual GFR. Performed By: #### 2 4321-2 ####[facility]ORYCLIA [id number] [place] [address] [place] Glucose [Mass/Vol] 133 mg/dL High 74-99 [facility] Comment on above: Order Comment: Lele stepan Type: BLOOD SPECIMENOrdering Facility: [facility] Address: [address] [place] [address] Result Comment: The [place] Diabetes Association (ADA) provides guidance for cutoff values for fasting glucose and random glucose. The ADA defines fasting as no caloric intake for at least 8 hours. Fasting plasma glucose results between 100 to 125 mg/dL indicate increased risk for diabetes (prediabetes).Fasting plasma glucose results greater than or equal to 126 mg/dL meet the criteria for diagnosis of diabetes. In the absence of unequivocal hyperglycemia, results should be confirmed by repeat testing. In a patient with classic symptoms of hyperglycemia or hyperglycemic crisis, random plasma glucose results greater than or equal to 200 mg/dL meet the criteria for diagnosis of diabetes.Reference: Standards of Medical Care in Diabetes 2016, [place] [employer]. Diabetes Care. 2016.39(Suppl 1). Performed By: #### 2 4321-2 ####[facility]ORYCLIA [id number] [address] [place] Potassium [Moles/Vol] 3.7 mmol/L Normal 3.7-5.1 [facility] Comment on above: Order Comment: Speci men Type: BLOOD SPECIMENOrdering Facility: [facility] Address: [address] [place] [address] Performed By: #### 2 4321-2 ####[facility]ORYCLIA [id number] [address] [place] Sodium [Moles/Vol] 144 mmol/L Normal 136-144 [facility] Comment on above: Order Comment: Speci men Type: BLOOD SPECIMENOrdering Facility: [facility] Address: [address] [place] [address] Performed By: #### 2 4321-2 ####[facility]ORYCLIA [id number] [address] STATES [facility] Urea nitrogen [Mass/Vol] 39 mg/dL High 9-24 [facility] Comment on above: Order Comment: Speci men Type: BLOOD SPECIMENOrdering Facility: [facility] Address: [address] [place] [address] Performed By: #### 2 4321-2 ####[facility]ORYCLIA [id number] [address] [place] [facility] CBC panel Auto (Bld)on 06-11 Erythrocyte distribution width (RBC) [Ratio] 14.6 % Normal 11.5-15.0 [facility] Comment on above: Order Comment: Speci men Type: BLOOD SPECIMENOrdering Facility: [facility] Address: [address] [place] [address] Performed By: #### 5 8410-2 ####[facility]ORYCLIA [id number] [address] OF [facility] Hematocrit (Bld) [Volume fraction] 33.7 % Low 39.0-51.0 [facility] Comment on above: Order Comment: Speci men Type: BLOOD SPECIMENOrdering Facility: [facility] Address: [address] [place] [address] Performed By: #### 5 8410-2 ####[facility]ORYCLIA [id number] [address] STATES OF [facility] Hemoglobin (Bld) [Mass/Vol] 10.9 g/dL Low 13.0-17.0 [facility] Comment on above: Order Comment: Speci men Type: BLOOD SPECIMENOrdering Facility: [facility] Address: [address] [place] [address] Performed By: #### 5 8410-2 ####[facility]ORYCLIA [id number] [address] STATES OF [facility] MCH (RBC) [Entitic mass] 30.3 pg Normal 26.0-34.0 [facility] Comment on above: Order Comment: Speci men Type: BLOOD SPECIMENOrdering Facility: [facility] Address: [address] [place] [address] Performed By: #### 5 8410-2 ####[facility]ORYCLIA [id number] [address] MCHC (RBC) [Mass/Vol] 32.3 g/dL Normal 30.5-36.0 [facility] Comment on above: Order Comment: Speci men Type: BLOOD SPECIMENOrdering Facility: [facility] Address: [address] [place] [address] Performed By: #### 5 8410-2 ####[facility]ORYCLIA [id number] [address] [place] MCV (RBC) [Entitic vol] 93.6 fL Normal 80.0-100.0 [facility] Comment on above: Order Comment: Speci men Type: BLOOD SPECIMENOrdering Facility: [facility] Address: [address] [place] [address] Performed By: #### 5 8410-2 ####[facility]ORYCLIA [id number] [place] Nucleated RBC (Bld) [#/Vol] 10*3/uL Normal <0.01 [facility] Comment on above: Order Comment: Speci men Type: BLOOD SPECIMENOrdering Facility: [facility] Address: [address] [place] [address] Performed By: #### 5 8410-2 ####[facility]ORYCLIA [id number] [place] [address] [place] Platelet mean volume (Bld) [Entitic vol] 9.9 fL Normal 9.0-12.7 [facility] Comment on above: Order Comment: Speci men Type: BLOOD SPECIMENOrdering Facility: [facility] Address: [address] [place] [address] Performed By: #### 5 8410-2 ####[facility]ORYCLIA [id number] [address] [place] Platelets (Bld) [#/Vol] 251 10*3/uL Normal 150-400 [facility] Comment on above: Order Comment: Speci men Type: BLOOD SPECIMENOrdering Facility: [facility] Address: [address] [place] [address] Performed By: #### 5 8410-2 ####[facility]ORYCLIA [id number] [place] [address] [place] RBC (Bld) [#/Vol] 3.60 10*6/uL Low 4.20-6.00 [facility] Comment on above: Order Comment: Speci men Type: BLOOD SPECIMENOrdering Facility: [facility] Address: [address] [place] [address] Performed By: #### 5 8410-2 ####[facility]ORYCLIA [id number] [address] [place] WBC (Bld) [#/Vol] 14.54 10*3/uL High 3.70-11.00 [facility] Comment on above: Order Comment: Speci men Type: BLOOD SPECIMENOrdering Facility: [facility] Address: [address] [place] [address] Performed By: #### 5 8410-2 ####[facility]ORYCLIA [id number] [address] [place] CONSULT PROGon 06-11-2024 CONSULT PROG Normal [facility] CT BRAIN WO IVCONon 06-11-[address] BRAIN WO IVCON Normal [facility] Gas and Carbon monoxide pane l (BldV)on 06-11-2024 Base excess Calc (BldV) [Moles/Vol] 8 mmol/L High 0-2 [facility] Comment on above: Order Comment: Speci men Type: VENOUS BLOOD SPECIMENOrdering Facility: [facility] Address: [address] [place] [address] Performed By: #### 2 4344-4 ####[facility]ORYCLIA [id number] [address] [place] Body temperature 98.6 [degF] Normal [facility] Comment on above: Order Comment: Speci men Type: VENOUS BLOOD SPECIMENOrdering Facility: [facility] Address: [address] [place] [address] Performed By: #### 2 4344-4 ####[facility]ORYCLIA [id number] [address] [place] Calcium.ionized (BldV) [Mass/Vol] 1.11 mmol/L Normal 1.08-1.30 [facility] Comment on above: Order Comment: Speci men Type: VENOUS BLOOD SPECIMENOrdering Facility: [facility] Address: [address] [place] [address] Performed By: #### 2 4344-4 ####[facility]ORYCLIA [id number] [address] OF [facility] Calcium.ionized adjusted to pH 7.4 (BldA) [Moles/Vol] 1.16 mmol/L Normal 1.08-1.30 [facility] Comment on above: Order Comment: Speci men Type: VENOUS BLOOD SPECIMENOrdering Facility: [facility] Address: [address] [place] [address] Performed By: #### 2 4344-4 ####[facility]ORYCLIA [id number] [address] [place] Carboxyhemoglobin (BldV) [Mass fraction] 1.4 % Normal 0.0-2.0 [facility] Comment on above: Order Comment: Speci men Type: VENOUS BLOOD SPECIMENOrdering Facility: [facility] Address: [address] [place] [address] Result Comment: Carb oxyhemoglobin Reference Range for Smokers: 2.0-8.0% Performed By: #### 2 4344-4 ####[facility]ORYCLIA [id number] [place] [address] [place] Chloride [Moles/Vol] 109 mmol/L Normal 102-109 [facility] Comment on above: Order Comment: Speci men Type: VENOUS BLOOD SPECIMENOrdering Facility: [facility] Address: [address] [place] [address] Performed By: #### 2 4344-4 ####[facility]ORYCLIA [id number] [address] [place] CO2 (BldV) [Partial pressure] 43 mm[Hg] Normal 42-55 [facility] Comment on above: Order Comment: Speci men Type: VENOUS BLOOD SPECIMENOrdering Facility: [facility] Address: [address] [place] [address] Performed By: #### 2 4344-4 ####[facility]ORYCLIA [id number] [place] [address] [place] Glucose [Mass/Vol] 137 mg/dL High 60-105 [facility] Comment on above: Order Comment: Speci men Type: VENOUS BLOOD SPECIMENOrdering Facility: [facility] Address: [address] [place] [address] Performed By: #### 2 4344-4 ####[facility]ORYCLIA [id number] [place] [address] [place] HCO3 (Bld) [Moles/Vol] 32 mmol/L High 24-28 [facility] Comment on above: Order Comment: Speci men Type: VENOUS BLOOD SPECIMENOrdering Facility: [facility] Address: [address] [place] [address] Performed By: #### 2 4344-4 ####[facility]ORYCLIA [id number] [address] STATES OF [facility] Hematocrit (Bld) [Volume fraction] 34.8 % Low 39.0-51.0 [facility] Comment on above: Order Comment: Speci men Type: VENOUS BLOOD SPECIMENOrdering Facility: [facility] Address: [address] [place] [address] Performed By: #### 2 4344-4 ####[facility]ORYCLIA [id number] [address] [place] Hemoglobin (Bld) [Mass/Vol] 11.3 g/dL Low 13.0-17.0 [facility] Comment on above: Order Comment: Speci men Type: VENOUS BLOOD SPECIMENOrdering Facility: [facility] Address: [address] [place] [address] Performed By: #### 2 4344-4 ####[facility]ORYCLIA [id number] [address] [place] Lactate [Moles/Vol] 0.9 mmol/L Normal 0.5-2.2 [facility] Comment on above: Order Comment: Speci men Type: VENOUS BLOOD SPECIMENOrdering Facility: [facility] Address: [address] [place] [address] Performed By: #### 2 4344-4 ####[facility]ORYCLIA [id number] [address] [place] Methemoglobin (Bld) [Mass fraction] 0.7 % Normal 0.0-1.5 [facility] Comment on above: Order Comment: Speci men Type: VENOUS BLOOD SPECIMENOrdering Facility: [facility] Address: [facility] [place] [address] Performed By: #### 2 4344-4 ####[facility]ORYCLIA [id number] [address] [place] O2 THERAPY VENT=Ventilator Normal [facility] Comment on above: Order Comment: Speci men Type: VENOUS BLOOD SPECIMENOrdering Facility: [facility] Address: [address] [place] [address] Performed By: #### 2 4344-4 ####[facility]ORYCLIA [id number] [address] [place] Oxygen (BldV) [Partial pressure] 176 mm[Hg] High 35-45 [facility] Comment on above: Order Comment: Speci men Type: VENOUS BLOOD SPECIMENOrdering Facility: [facility] Address: [address] [place] [address] Performed By: #### 2 4344-4 ####[facility]ORYCLIA [id number] [address] [place] Oxygen saturation in Venous blood 99 % High 60-85 [facility] Comment on above: Order Comment: Speci men Type: VENOUS BLOOD SPECIMENOrdering Facility: [facility] Address: [address] [place] [address] Performed By: #### 2 4344-4 ####[facility]ORYCLIA [id number] [place] [address] [place] Oxyhemoglobin (BldV) [Mass fraction] 97 % High 60-85 [facility] Comment on above: Order Comment: Speci men Type: VENOUS BLOOD SPECIMENOrdering Facility: [facility] Address: [address] [place] [address] Performed By: #### 2 4344-4 ####[facility]ORYCLIA [id number] [place] [address] [place] pH (BldV) 7.48 [pH] High 7.32-7.42 [facility] Comment on above: Order Comment: Speci men Type: VENOUS BLOOD SPECIMENOrdering Facility: [facility] Address: [address] [place] [address] Performed By: #### 2 4344-4 ####[facility]ORYCLIA [id number] [place] [address] [place] Potassium [Moles/Vol] 4.3 mmol/L Normal 3.5-5.0 [facility] Comment on above: Order Comment: Speci men Type: VENOUS BLOOD SPECIMENOrdering Facility: [facility] Address: [address] [place] [address] Performed By: #### 2 4344-4 ####[facility]ORYCLIA [id number] [place] [address] [place] Sodium [Moles/Vol] 145 mmol/L High 136-144 [facility] Comment on above: Order Comment: Speci men Type: VENOUS BLOOD SPECIMENOrdering Facility: [facility] Address: [address] [place] [address] Performed By: #### 2 4344-4 ####[facility]ORYCLIA [id number] [place] [address] [place] Base excess Calc (BldV) [Moles/Vol] 8 mmol/L High 0-2 [facility] Comment on above: Order Comment: Speci men Type: VENOUS BLOOD SPECIMENOrdering Facility: [facility] Address: [address] [place] [address] Performed By: #### 2 4344-4 ####[facility]ORYCLIA [id number] [place] [address] [place] Body temperature 98.6 [degF] Normal [facility] Comment on above: Order Comment: Speci men Type: VENOUS BLOOD SPECIMENOrdering Facility: [facility] Address: [address] [place] [address] Performed By: #### 2 4344-4 ####[facility]ORYCLIA [id number] [address] [place] Calcium.ionized (BldV) [Mass/Vol] 1.16 mmol/L Normal 1.08-1.30 [facility] Comment on above: Order Comment: Speci men Type: VENOUS BLOOD SPECIMENOrdering Facility: [facility] Address: [address] [place] [address] Performed By: #### 2 4344-4 ####[facility]ORYCLIA [id number] [address] Calcium.ionized adjusted to pH 7.4 (BldA) [Moles/Vol] 1.21 mmol/L Normal 1.08-1.30 [facility] Comment on above: Order Comment: Speci men Type: VENOUS BLOOD SPECIMENOrdering Facility: [facility] Address: [address] [place] [address] Performed By: #### 2 4344-4 ####[facility]ORYCLIA [id number] [address] OF [facility] Carboxyhemoglobin (BldV) [Mass fraction] 2.3 % High 0.0-2.0 [facility] Comment on above: Order Comment: Speci men Type: VENOUS BLOOD SPECIMENOrdering Facility: [facility] Address: [address] [place] [address] Result Comment: Carb oxyhemoglobin Reference Range for Smokers: 2.0-8.0% Performed By: #### 2 4344-4 ####[facility]ORYCLIA [id number] [address] STATES OF [facility] Chloride [Moles/Vol] 105 mmol/L Normal 102-109 [facility] Comment on above: Order Comment: Speci men Type: VENOUS BLOOD SPECIMENOrdering Facility: [facility] Address: [address] [place] [address] Performed By: #### 2 4344-4 ####[facility]ORYCLIA [id number] [address] CO2 (BldV) [Partial pressure] 42 mm[Hg] Normal 42-55 [facility] Comment on above: Order Comment: Speci men Type: VENOUS BLOOD SPECIMENOrdering Facility: [facility] Address: [address] [place] [address] Performed By: #### 2 4344-4 ####[facility]ORYCLIA [id number] [address] [place] Glucose [Mass/Vol] 149 mg/dL High 60-105 [facility] Comment on above: Order Comment: Speci men Type: VENOUS BLOOD SPECIMENOrdering Facility: [facility] Address: [address] [place] [address] Performed By: #### 2 4344-4 ####[facility]ORYCLIA [id number] [place] [address] [place] HCO3 (Bld) [Moles/Vol] 31 mmol/L High 24-28 [facility] Comment on above: Order Comment: Speci men Type: VENOUS BLOOD SPECIMENOrdering Facility: [facility] Address: [address] [place] [address] Performed By: #### 2 4344-4 ####[facility]ORYCLIA [id number] [place] [address] [place] Hematocrit (Bld) [Volume fraction] 35.9 % Low 39.0-51.0 [facility] Comment on above: Order Comment: Speci men Type: VENOUS BLOOD SPECIMENOrdering Facility: [facility] Address: [address] [place] [address] Performed By: #### 2 4344-4 ####[facility]ORYCLIA [id number] [place] [address] [place] Hemoglobin (Bld) [Mass/Vol] 11.6 g/dL Low 13.0-17.0 [facility] Comment on above: Order Comment: Speci men Type: VENOUS BLOOD SPECIMENOrdering Facility: [facility] Address: [address] [place] [address] Performed By: #### 2 4344-4 ####[facility]ORYCLIA [id number] [place] [address] [place] Lactate [Moles/Vol] 1.0 mmol/L Normal 0.5-2.2 [facility] Comment on above: Order Comment: Speci men Type: VENOUS BLOOD SPECIMENOrdering Facility: [facility] Address: [address] [place] [address] Performed By: #### 2 4344-4 ####[facility]ORYCL[facility] [id number] [address] [place] Methemoglobin (Bld) [Mass fraction] 0.7 % Normal 0.0-1.5 [facility] Comment on above: Order Comment: Speci men Type: VENOUS BLOOD SPECIMENOrdering Facility: [facility] Address: [address] [place] [address] Performed By: #### 2 4344-4 ####[facility]ORYCLIA [id number] [address] [place] O2 THERAPY VENT=Ventilator Normal [facility] Comment on above: Order Comment: Speci men Type: VENOUS BLOOD SPECIMENOrdering Facility: [facility] Address: [address] [place] [address] Performed By: #### 2 4344-4 ####[facility]ORYCLIA [id number] [address] [place] Oxygen (BldV) [Partial pressure] 153 mm[Hg] High 35-45 [facility] Comment on above: Order Comment: Speci men Type: VENOUS BLOOD SPECIMENOrdering Facility: [facility] Address: [address] [place] [address] Performed By: #### 2 4344-4 ####[facility]ORYCLIA [id number] [address] [place] Oxygen saturation in Venous blood 99 % High 60-85 [facility] Comment on above: Order Comment: Speci men Type: VENOUS BLOOD SPECIMENOrdering Facility: [facility] Address: [address] [place] [address] Performed By: #### 2 4344-4 ####[facility]ORYCL[facility] [id number] [address] [place] Oxyhemoglobin (BldV) [Mass fraction] 96 % High 60-85 [facility] Comment on above: Order Comment: Speci men Type: VENOUS BLOOD SPECIMENOrdering Facility: [facility] Address: [facility] [place] [address] Performed By: #### 2 4344-4 ####[facility]ORYCLIA [id number] [place] [address] [place] pH (BldV) 7.49 [pH] High 7.32-7.42 [facility] Comment on above: Order Comment: Speci men Type: VENOUS BLOOD SPECIMENOrdering Facility: [facility] Address: [address] [place] [address] Performed By: #### 2 4344-4 ####[facility]ORYCLIA [id number] [place] [address] [place] Potassium [Moles/Vol] 3.9 mmol/L Normal 3.5-5.0 [facility] Comment on above: Order Comment: Speci men Type: VENOUS BLOOD SPECIMENOrdering Facility: [facility] Address: [address] [place] [address] Performed By: #### 2 4344-4 ####[facility]ORYCLIA [id number] [place] [address] [place] Sodium [Moles/Vol] 147 mmol/L High 136-144 [facility] Comment on above: Order Comment: Speci men Type: VENOUS BLOOD SPECIMENOrdering Facility: [facility] [facility] Address: [address] [place] [address] Performed By: #### 2 4344-4 ####[facility]ATORYCLIA [id number] [place] [address] [place] Base excess Calc (BldV) [Moles/Vol] 9 mmol/L High 0-2 [facility] Comment on above: Order Comment: Speci men Type: VENOUS BLOOD SPECIMENOrdering Facility: [facility] Address: [address] [place] [address] Performed By: #### 2 4344-4 ####[facility]ATORYCLIA [id number] [address] [place] Body temperature 99.32 [degF] Normal [facility] Comment on above: Order Comment: Speci men Type: VENOUS BLOOD SPECIMENOrdering Facility: [facility] Address: [address] [place], [place] [id number] Performed By: #### 2 4344-4 ####[facility]ATORYCLIA [id number] [address] Calcium.ionized (BldV) [Mass/Vol] 1.11 mmol/L Normal 1.08-1.30 [facility] Comment on above: Order Comment: Speci men Type: VENOUS BLOOD SPECIMENOrdering Facility: [facility] Address: [address] [place] [address] Performed By: #### 2 4344-4 ####[facility]ATORYCLIA [id number] [address] Calcium.ionized adjusted to pH 7.4 (BldA) [Moles/Vol] 1.17 mmol/L Normal 1.08-1.30 [facility] Comment on above: Order Comment: Speci men Type: VENOUS BLOOD SPECIMENOrdering Facility: [facility] Address: [address] [place] [address] Performed By: #### 2 4344-4 ####[facility]ATORYCLIA [id number] [address] [place] Carboxyhemoglobin (BldV) [Mass fraction] 1.9 % Normal 0.0-2.0 [facility] Comment on above: Order Comment: Speci men Type: VENOUS BLOOD SPECIMENOrdering Facility: [facility] Address: [address] [place] [address] Result Comment: Carb oxyhemoglobin Reference Range for Smokers: 2.0-8.0% Performed By: #### 2 4344-4 ####[facility]ORYCLIA [id number] [address] [place] Chloride [Moles/Vol] 106 mmol/L Normal 102-109 [facility] Comment on above: Order Comment: Speci men Type: VENOUS BLOOD SPECIMENOrdering Facility: [facility] Address: [address] [place] [address] Performed By: #### 2 4344-4 ####[facility]ATORYCLIA [id number] [address] CO2 (BldV) [Partial pressure] 41 mm[Hg] Low 42-55 [facility] Comment on above: Order Comment: Speci men Type: VENOUS BLOOD SPECIMENOrdering Facility: [facility] Address: [address] [place] [address] Performed By: #### 2 4344-4 ####[facility]ATORYCLIA [id number] [address] CO2 adjusted to patient's actual temperature (BldV) [Partial pressure] 42 mmHg Normal 42-55 [facility] Comment on above: Order Comment: Speci men Type: VENOUS BLOOD SPECIMENOrdering Facility: [facility] Address: [address] [place] [address] Performed By: #### 2 4344-4 ####[facility]ORYCLIA [id number] [address] [place] FIO2 50 % Normal [facility] Comment on above: Order Comment: Speci men Type: VENOUS BLOOD SPECIMENOrdering Facility: [facility] Address: [address] [place] [address] Performed By: #### 2 4344-4 ####[facility]ATORYCLIA [id number] [place] [address] [place] Glucose [Mass/Vol] 131 mg/dL High 60-105 [facility] Comment on above: Order Comment: Speci men Type: VENOUS BLOOD SPECIMENOrdering Facility: [facility] Address: [address] [place] [address] Performed By: #### 2 4344-4 ####[facility]ORYCLIA [id number] [place] [address] [place] HCO3 (Bld) [Moles/Vol] 33 mmol/L High 24-28 [facility] Comment on above: Order Comment: Speci men Type: VENOUS BLOOD SPECIMENOrdering Facility: [facility] Address: [address] [place] [address] Performed By: #### 2 4344-4 ####[facility]ORYCLIA [id number] [address] OF [facility] Hematocrit (Bld) [Volume fraction] 33.9 % Low 39.0-51.0 [facility] Comment on above: Order Comment: Speci men Type: VENOUS BLOOD SPECIMENOrdering Facility: [facility] Address: [address] [place] [address] Performed By: #### 2 4344-4 ####[facility]ORYCLIA [id number] [address] [place] Hemoglobin (Bld) [Mass/Vol] 11.0 g/dL Low 13.0-17.0 [facility] Comment on above: Order Comment: Speci men Type: VENOUS BLOOD SPECIMENOrdering Facility: [facility] Address: [address] [place] [address] Performed By: #### 2 4344-4 ####[facility]ORYCLIA [id number] [address] Lactate [Moles/Vol] 0.9 mmol/L Normal 0.5-2.2 [facility] Comment on above: Order Comment: Speci men Type: VENOUS BLOOD SPECIMENOrdering Facility: [facility] Address: [address] [place] [address] Performed By: #### 2 4344-4 ####[facility]ORYCLIA [id number] [address] [place] Methemoglobin (Bld) [Mass fraction] 0.8 % Normal 0.0-1.5 [facility] Comment on above: Order Comment: Speci men Type: VENOUS BLOOD SPECIMENOrdering Facility: [facility] Address: [address] [place] [address] Performed By: #### 2 4344-4 ####[facility]ORYCLIA [id number] [address] O2 THERAPY VENT=Ventilator Normal [facility] Comment on above: Order Comment: Speci men Type: VENOUS BLOOD SPECIMENOrdering Facility: [facility] Address: [address] [place] [address] Performed By: #### 2 4344-4 ####[facility]ATORYCLIA [id number] [place], [place] [address] [place] [address] OF [place] Oxygen (BldV) [Partial pressure] 99 mm[Hg] High 35-45 [facility] Comment on above: Order Comment: Speci men Type: VENOUS BLOOD SPECIMENOrdering Facility: [facility] Address: [address] [place] [address] Performed By: #### 2 4344-4 ####[facility]ATORYCLIA [id number] [place] [address] [place] Oxygen adjusted to patient's actual temperature (BldV) [Partial pressure] 101 mmHg High 35-45 [facility] Comment on above: Order Comment: Speci men Type: VENOUS BLOOD SPECIMENOrdering Facility: [facility] Address: [address] [place] [address] Performed By: #### 2 4344-4 ####[facility]ORYCLIA [id number] [address] [place] Oxygen saturation in Venous blood 98 % High 60-85 [facility] Comment on above: Order Comment: Speci men Type: VENOUS BLOOD SPECIMENOrdering Facility: [facility] Address: [address] [place] [address] Performed By: #### 2 4344-4 ####[facility]ATORYCLIA [id number] [address] [place] Oxyhemoglobin (BldV) [Mass fraction] 95 % High 60-85 [facility] Comment on above: Order Comment: Speci men Type: VENOUS BLOOD SPECIMENOrdering Facility: [facility] Address: [address] [place] [address] Performed By: #### 2 4344-4 ####[facility]ORYCLIA [id number] [address] [place] PEEP/CPAP 6 cmH2O Normal [facility] Comment on above: Order Comment: Speci men Type: VENOUS BLOOD SPECIMENOrdering Facility: [facility] Address: [address] [place] [address] Performed By: #### 2 4344-4 ####[facility]ORYCLIA [id number] [address] [place] pH (BldV) 7.51 [pH] High 7.32-7.42 [facility] Comment on above: Order Comment: Speci men Type: VENOUS BLOOD SPECIMENOrdering Facility: [facility] Address: [address] [place] [address] Performed By: #### 2 4344-4 ####[facility]ORYCLIA [id number] [address] [place] pH adjusted to patient's actual temperature (BldV) 7.50 High 7.32-7.42 [facility] Comment on above: Order Comment: Speci men Type: VENOUS BLOOD SPECIMENOrdering Facility: [facility] Address: [address] [place] [address] Performed By: #### 2 4344-4 ####[facility]ATORYCLIA [id number] [address] [place] Potassium [Moles/Vol] 3.6 mmol/L Normal 3.5-5.0 [facility] Comment on above: Order Comment: Speci men Type: VENOUS BLOOD SPECIMENOrdering Facility: [facility] Address: [address] [place] [address] Performed By: #### 2 4344-4 ####[facility]ORYCLIA [id number] [place] [address] [place] Sodium [Moles/Vol] 143 mmol/L Normal 136-144 [facility] Comment on above: Order Comment: Speci men Type: VENOUS BLOOD SPECIMENOrdering Facility: [facility] Address: [address] [place] [address] Performed By: #### 2 4344-4 ####[facility]ORYCLIA [id number] [place] [address] [place] NUTRITIONon 06-11-2024 NUTRITION Normal [facility] XR CHEST 1V FRONTALon 2023 XR CHEST 1V FRONTAL Normal [facility] ALLIED HEALTHon 06-10-2024 ALLIED HEALTH Normal [facility] CASE MANAGEMon 06-10-2024 CASE MANAGEM Normal [facility] CBC panel Auto (Bld)on 06-10 Erythrocyte distribution width (RBC) [Ratio] 14.6 % Normal 11.5-15.0 [facility] Comment on above: Order Comment: Speci men Type: BLOOD SPECIMENOrdering Facility: [facility] Address: [address] [place] [address] Performed By: #### 5 8410-2 ####[facility]ORYCLIA [id number] [address] STATES OF [facility] Hematocrit (Bld) [Volume fraction] 32.2 % Low 39.0-51.0 [facility] Comment on above: Order Comment: Speci men Type: BLOOD SPECIMENOrdering Facility: [facility] Address: [address] [place] [address] Performed By: #### 5 8410-2 ####[facility]ATORYCLIA [id number] [address] [place] Hemoglobin (Bld) [Mass/Vol] 10.4 g/dL Low 13.0-17.0 [facility] Comment on above: Order Comment: Speci men Type: BLOOD SPECIMENOrdering Facility: [facility] Address: [address] [place] [address] Performed By: #### 5 8410-2 ####[facility]ORYCLIA [id number] [address] [place] MCH (RBC) [Entitic mass] 30.3 pg Normal 26.0-34.0 [facility] Comment on above: Order Comment: Speci men Type: BLOOD SPECIMENOrdering Facility: [facility] Address: [address] [place] [address] Performed By: #### 5 8410-2 ####[facility]ORYCLIA [id number] [address] [place] MCHC (RBC) [Mass/Vol] 32.3 g/dL Normal 30.5-36.0 [facility] Comment on above: Order Comment: Speci men Type: BLOOD SPECIMENOrdering Facility: [facility] Address: [address] [place] [address] Performed By: #### 5 8410-2 ####[facility]ORYCLIA [id number] [address] [place] MCV (RBC) [Entitic vol] 93.9 fL Normal 80.0-100.0 [facility] Comment on above: Order Comment: Speci men Type: BLOOD SPECIMENOrdering Facility: [facility] Address: [address] [place] [address] Performed By: #### 5 8410-2 ####[facility]ATORYCLIA [id number] [address] [place] Nucleated RBC (Bld) [#/Vol] 10*3/uL Normal <0.01 [facility] Comment on above: Order Comment: Speci men Type: BLOOD SPECIMENOrdering Facility: [facility] Address: [address] [place] [address] Performed By: #### 5 8410-2 ####[facility]ORYCLIA [id number] [address] [place] Platelet mean volume (Bld) [Entitic vol] 10.2 fL Normal 9.0-12.7 [facility] Comment on above: Order Comment: Speci men Type: BLOOD SPECIMENOrdering Facility: [facility] Address: [address] [place] [address] Performed By: #### 5 8410-2 ####[facility]ATORYCLIA [id number] [address] [place] Platelets (Bld) [#/Vol] 217 10*3/uL Normal 150-400 [facility] Comment on above: Order Comment: Speci men Type: BLOOD SPECIMENOrdering Facility: [facility] Address: [address] [place] [address] Performed By: #### 5 8410-2 ####[facility]ATORYCLIA [id number] [place] [address] [place] RBC (Bld) [#/Vol] 3.43 10*6/uL Low 4.20-6.00 [facility] Comment on above: Order Comment: Speci men Type: BLOOD SPECIMENOrdering Facility: [facility] Address: [address] [place] [address] Performed By: #### 5 8410-2 ####[facility]ORYCLIA [id number] [address] [place] WBC (Bld) [#/Vol] 15.93 10*3/uL High 3.70-11.00 [facility] Comment on above: Order Comment: Speci men Type: BLOOD SPECIMENOrdering Facility: [facility] Address: [address] [place] [address] Performed By: #### 5 8410-2 ####[facility]ATORYCLIA [id number] [address] OF [facility] Gas and Carbon monoxide pane l (BldV)on 06-10-2024 Base excess Calc (BldV) [Moles/Vol] 9 mmol/L High 0-2 [facility] Comment on above: Order Comment: Speci men Type: VENOUS BLOOD SPECIMENOrdering Facility: [facility] Address: [address] [place] [address] Performed By: #### 2 4344-4 ####[facility]ORYCLIA [id number] [address] [place] Body temperature 98.6 [degF] Normal [facility] Comment on above: Order Comment: Speci men Type: VENOUS BLOOD SPECIMENOrdering Facility: [facility] Address: [address] [place] [address] Performed By: #### 2 4344-4 ####[facility]ATORYCLIA [id number] [address] [place] Calcium.ionized (BldV) [Mass/Vol] 1.23 mmol/L Normal 1.08-1.30 [facility] Comment on above: Order Comment: Speci men Type: VENOUS BLOOD SPECIMENOrdering Facility: [facility] Address: [address] [place] [address] Performed By: #### 2 4344-4 ####[facility]ORYCLIA [id number] [place] [address] [place] Calcium.ionized adjusted to pH 7.4 (BldA) [Moles/Vol] 1.25 mmol/L Normal 1.08-1.30 [facility] Comment on above: Order Comment: Speci men Type: VENOUS BLOOD SPECIMENOrdering Facility: [facility] Address: [address] [place] [address] Performed By: #### 2 4344-4 ####[facility]ORYCLIA [id number] [address] OF [place] Carboxyhemoglobin (BldV) [Mass fraction] 1.1 % Normal 0.0-2.0 [facility] Comment on above: Order Comment: Speci men Type: VENOUS BLOOD SPECIMENOrdering Facility: [facility] Address: [address] [place] [address] Result Comment: Carb oxyhemoglobin Reference Range for Smokers: 2.0-8.0% Performed By: #### 2 4344-4 ####[facility]ORYCLIA [id number] [place] [address] [place] Chloride [Moles/Vol] 105 mmol/L Normal 102-109 [facility] Comment on above: Order Comment: Speci men Type: VENOUS BLOOD SPECIMENOrdering Facility: [facility] Address: [address] [place] [address] Performed By: #### 2 4344-4 ####[facility]ORYCLIA [id number] [place] [address] [place] CO2 (BldV) [Partial pressure] 53 mm[Hg] Normal 42-55 [facility] Comment on above: Order Comment: Speci men Type: VENOUS BLOOD SPECIMENOrdering Facility: [facility] Address: [address] [place] [address] Performed By: #### 2 4344-4 ####[facility]ORYCLIA [id number] [place] [address] [place] FIO2 50 % Normal [facility] Comment on above: Order Comment: Speci men Type: VENOUS BLOOD SPECIMENOrdering Facility: [facility] Address: [address] [place] [address] Performed By: #### 2 4344-4 ####[facility]ORYCLIA [id number] [place] [address] [place] Glucose [Mass/Vol] 119 mg/dL High 60-105 [facility] Comment on above: Order Comment: Speci men Type: VENOUS BLOOD SPECIMENOrdering Facility: [facility] Address: [address] [place] [address] Performed By: #### 2 4344-4 ####[facility]ORYCLIA [id number] [place] [address] [place] HCO3 (Bld) [Moles/Vol] 35 mmol/L High 24-28 [facility] Comment on above: Order Comment: Speci men Type: VENOUS BLOOD SPECIMENOrdering Facility: [facility] Address: [address] [place] [address] Performed By: #### 2 4344-4 ####[facility]ORYCLIA [id number] [address] [place] Hematocrit (Bld) [Volume fraction] 58.8 % High 39.0-51.0 [facility] Comment on above: Order Comment: Speci men Type: VENOUS BLOOD SPECIMENOrdering Facility: [facility] Address: [address] [place] [address] Performed By: #### 2 4344-4 ####[facility]ORYCLIA [id number] [place] [address] [place] Hemoglobin (Bld) [Mass/Vol] 19.2 g/dL High 13.0-17.0 [facility] Comment on above: Order Comment: Speci men Type: VENOUS BLOOD SPECIMENOrdering Facility: [facility] Address: [address] [place] [address] Performed By: #### 2 4344-4 ####[facility]ORYCLIA [id number] [address] [place] Lactate [Moles/Vol] 1.0 mmol/L Normal 0.5-2.2 [facility] Comment on above: Order Comment: Speci men Type: VENOUS BLOOD SPECIMENOrdering Facility: [facility] Address: [address] [place] [address] Performed By: #### 2 4344-4 ####[facility]ORYCLIA [id number] [place] [address] [place] Methemoglobin (Bld) [Mass fraction] 0.5 % Normal 0.0-1.5 [facility] Comment on above: Order Comment: Speci men Type: VENOUS BLOOD SPECIMENOrdering Facility: [facility] Address: [address] [place] [address] Performed By: #### 2 4344-4 ####[facility]ORYCLIA [id number] [address] [place] O2 THERAPY VENT=Ventilator Normal [facility] Comment on above: Order Comment: Speci men Type: VENOUS BLOOD SPECIMENOrdering Facility: [facility] Address: [address] [place] [address] Performed By: #### 2 4344-4 ####[facility]ORYCLIA [id number] [address] OF [place] Oxygen (BldV) [Partial pressure] 64 mm[Hg] High 35-45 [facility] Comment on above: Order Comment: Speci men Type: VENOUS BLOOD SPECIMENOrdering Facility: [facility] Address: [address] [place] [address] Performed By: #### 2 4344-4 ####[facility]ORYCLIA [id number] [address] [place] Oxygen saturation in Venous blood 91 % High 60-85 [facility] Comment on above: Order Comment: Speci men Type: VENOUS BLOOD SPECIMENOrdering Facility: [facility] Address: [address] [place] [address] Performed By: #### 2 4344-4 ####[facility]ORYCLIA [id number] [address] [place] Oxyhemoglobin (BldV) [Mass fraction] 90 % High 60-85 [facility] Comment on above: Order Comment: Speci men Type: VENOUS BLOOD SPECIMENOrdering Facility: [facility] Address: [address] [place] [address] Performed By: #### 2 4344-4 ####[facility]ORYCLIA [id number] [place] [address] [place] pH (BldV) 7.43 [pH] High 7.32-7.42 [facility] Comment on above: Order Comment: Speci men Type: VENOUS BLOOD SPECIMENOrdering Facility: [facility] Address: [address] [place] [address] Performed By: #### 2 4344-4 ####[facility]ORYCLIA [id number] [place] [address] [place] Potassium [Moles/Vol] 3.9 mmol/L Normal 3.5-5.0 [facility] Comment on above: Order Comment: Speci men Type: VENOUS BLOOD SPECIMENOrdering Facility: [facility] Address: [address] [place] [address] Performed By: #### 2 4344-4 ####[facility]ORYCLIA [id number] [place] [address] [place] Sodium [Moles/Vol] 144 mmol/L Normal 136-144 [facility] Comment on above: Order Comment: Speci men Type: VENOUS BLOOD SPECIMENOrdering Facility: [facility] Address: [address] [place] [address] Performed By: #### 2 4344-4 ####[facility]ORYCLIA [id number] [place] [address] [place] XR ABDOMEN 1V SUPINEon 06-10 XR ABDOMEN 1V SUPINE Normal [facility] XR CHEST 1V FRONTALon 2023 XR CHEST 1V FRONTAL Normal [facility] XR CHEST 1V FRONTAL Normal [facility] ALLIED HEALTHon 06-09-2024 ALLIED HEALTH Normal [facility] ARTERIAL BLOOD GASESon 06-09 Base excess Calc (Bld) [Moles/Vol] 8 mmol/L High 0-2 [facility] Comment on above: Order Comment: Speci men Type: ARTERIAL BLOOD SPECIMENOrdering Facility: [facility] Address: [address] [place] [address] Performed By: #### A LLBG ####[facility]ORYCLIA [id number] [address] [place] Body temperature 98.6 [degF] Normal [facility] Comment on above: Order Comment: Speci men Type: ARTERIAL BLOOD SPECIMENOrdering Facility: [facility] Address: [address] [place] [address] Performed By: #### A LLBG ####[facility]ORYCLIA [id number] [address] [place] Calcium.ionized (BldV) [Mass/Vol] 1.21 mmol/L Normal 1.08-1.30 [facility] Comment on above: Order Comment: Speci men Type: ARTERIAL BLOOD SPECIMENOrdering Facility: [facility] Address: [address] [place] [address] Performed By: #### A LLBG ####[facility]ORYCLIA [id number] [address] [place] Calcium.ionized adjusted to pH 7.4 (BldA) [Moles/Vol] 1.21 mmol/L Normal 1.08-1.30 [facility] Comment on above: Order Comment: Speci men Type: ARTERIAL BLOOD SPECIMENOrdering Facility: [facility] Address: [address] [place] [address] Performed By: #### A LLBG ####[facility] LABORATORYCLIA [id number] [address] [place] Carboxyhemoglobin (BldA) [Mass fraction] 0.5 % Normal 0.0-2.0 [facility] Comment on above: Order Comment: Speci men Type: ARTERIAL BLOOD SPECIMENOrdering Facility: [facility] Address: [address] [place] [address] Result Comment: Carb oxyhemoglobin Reference Range for Smokers: 2.0-8.0% Performed By: #### A LLBG ####[facility]ORATORYCLIA [id number] [address] [place] Chloride [Moles/Vol] 104 mmol/L Normal 102-109 [facility] Comment on above: Order Comment: Speci men Type: ARTERIAL BLOOD SPECIMENOrdering Facility: [facility] Address: [address] [place] [address] Performed By: #### A LLBG ####[facility]ORATORYCLIA [id number] [address] [place] CO2 (Bld) [Partial pressure] 55 mm Hg High 36-46 [facility] Comment on above: Order Comment: Speci men Type: ARTERIAL BLOOD SPECIMENOrdering Facility: [facility] Address: [address] [place] [address] Performed By: #### A LLBG ####[facility]ATORYCLIA [id number] [address] [place] Glucose [Mass/Vol] 144 mg/dL High 60-105 [facility] Comment on above: Order Comment: Speci men Type: ARTERIAL BLOOD SPECIMENOrdering Facility: [facility] Address: [address] [place] [address] Performed By: #### A LLBG ####[facility]ATORYCLIA [id number] [place] [address] [place] HCO3 (Bld) [Moles/Vol] 34 mmol/L High 22-26 [facility] Comment on above: Order Comment: Speci men Type: ARTERIAL BLOOD SPECIMENOrdering Facility: [facility] Address: [address] [place] [address] Performed By: #### A LLBG ####[facility]ATORYCLIA [id number] Hematocrit (Bld) [Volume fraction] 32.0 % Low 39.0-51.0 [facility] Comment on above: Order Comment: Speci men Type: ARTERIAL BLOOD SPECIMENOrdering Facility: [facility] Address: [address] [place] [address] Performed By: #### A LLBG ####[facility]ATORYCLIA [id number] [address] [place] Hemoglobin (Bld) [Mass/Vol] 10.4 g/dL Low 13.0-17.0 [facility] Comment on above: Order Comment: Speci men Type: ARTERIAL BLOOD SPECIMENOrdering Facility: [facility] Address: [address] [place] [address] Performed By: #### A LLBG ####[facility]ATORYCLIA [id number] [address] Lactate [Moles/Vol] 0.7 mmol/L Normal 0.5-2.2 [facility] Comment on above: Order Comment: Speci men Type: ARTERIAL BLOOD SPECIMENOrdering Facility: [facility] Address: [address] [place] [address] Performed By: #### A LLBG ####[facility]ATORYCLIA [id number] [address] Methemoglobin (Bld) [Mass fraction] 0.8 % Normal 0.0-1.5 [facility] Comment on above: Order Comment: Speci men Type: ARTERIAL BLOOD SPECIMENOrdering Facility: [facility] Address: [address] [place] [address] Performed By: #### A LLBG ####[facility]ATORYCLIA [id number] [address] O2 THERAPY VENT=Ventilator Normal [facility] Comment on above: Order Comment: Speci men Type: ARTERIAL BLOOD SPECIMENOrdering Facility: [facility] Address: [address] [place] [address] Performed By: #### A LLBG ####[facility]ATORYCLIA [id number] [address] [place] Oxygen (Bld) [Partial pressure] 75 mm Hg Low 85-95 [facility] Comment on above: Order Comment: Speci men Type: ARTERIAL BLOOD SPECIMENOrdering Facility: [facility] Address: [address] [place] [address] Performed By: #### A LLBG ####[facility]ATORYCLIA [id number] [address] [place] Oxyhemoglobin (BldA) [Mass fraction] 93 % Low 95-98 [facility] Comment on above: Order Comment: Speci men Type: ARTERIAL BLOOD SPECIMENOrdering Facility: [facility] Address: [address] [place] [address] Performed By: #### A LLBG ####[facility]ATORYCLIA [id number] [place] [address] [place] pH (Bld) 7.40 [pH] Normal 7.35-7.45 [facility] Comment on above: Order Comment: Speci men Type: ARTERIAL BLOOD SPECIMENOrdering Facility: [facility] Address: [address] [place] [address] Performed By: #### A LLBG ####[facility]ATORYCLIA [id number] [place] [address] [place] Potassium [Moles/Vol] 4.4 mmol/L Normal 3.5-5.0 [facility] Comment on above: Order Comment: Speci men Type: ARTERIAL BLOOD SPECIMENOrdering Facility: [facility] Address: [address] [place] [address] Performed By: #### A LLBG ####[facility]ORYCLIA [id number] [address] [place] Sodium [Moles/Vol] 141 mmol/L Normal 136-144 [facility] Comment on above: Order Comment: Speci men Type: ARTERIAL BLOOD SPECIMENOrdering Facility: [facility] Address: [address] [place] [address] Performed By: #### A LLBG ####[facility]ATORYCLIA [id number] [address] [place] Bas Metab 2000 Pnl SerPlon 1 Sodium [Moles/Vol] 141 mmol/L Normal 136-144 [facility] Comment on above: Order Comment: Speci men Type: BLOOD SPECIMENOrdering Facility: [facility] Address: [address] [place] [address] Performed By: #### 2 4321-2 ####[facility]ATORYCLIA [id number] [address] OF [facility] Order Comment: Speci men Type: VENOUS BLOOD SPECIMENOrdering Facility: [facility] Address: [address] [place] [address] Performed By: #### 2 4344-4 ####[facility]ATORYCLIA [id number] [address] Basic metabolic 2000 panelon 06-09-2024 Anion gap [Moles/Vol] 7 mmol/L Low 8-15 [facility] Comment on above: Order Comment: Speci men Type: BLOOD SPECIMENOrdering Facility: [facility] Address: [address] [place] [address] Performed By: #### 2 4321-2 ####[facility]ATORYCLIA [id number] [address] [place] Calcium [Mass/Vol] 9.0 mg/dL Normal 8.5-10.2 [facility] Comment on above: Order Comment: Speci men Type: BLOOD SPECIMENOrdering Facility: [facility] Address: [address] [place] [address] Performed By: #### 2 4321-2 ####[facility]ATORYCLIA [id number] [address] Chloride [Moles/Vol] 103 mmol/L Normal 98-107 [facility] Comment on above: Order Comment: Speci men Type: BLOOD SPECIMENOrdering Facility: [facility] Address: [address] [place] [address] Performed By: #### 2 4321-2 ####[facility]ATORYCLIA [id number] [address] STATES [facility] CO2 [Moles/Vol] 31 mmol/L High 22-30 [facility] Comment on above: Order Comment: Speci men Type: BLOOD SPECIMENOrdering Facility: [facility] Address: [address] [place] [address] Performed By: #### 2 4321-2 ####[facility]ATORYCLIA [id number] [address] STATES OF [facility] Creatinine [Mass/Vol] 0.70 mg/dL Low 0.73-1.22 [facility] Comment on above: Order Comment: Speci men Type: BLOOD SPECIMENOrdering Facility: [facility] Address: [address] [place] [address] Performed By: #### 2 4321-2 ####[facility] COUNTYCLIA [id number] [address] Creatinine and Glomerular filtration rate.predicted panel (S/P/Bld) 104 mL/min/1.73m??? Normal >=60 [facility] Comment on above: Order Comment: Speci men Type: BLOOD SPECIMENOrdering Facility: [facility] Address: [address] [place] [address] Result Comment: Aury mated Glomerular Filtration Rate (eGFR) is calculated using the 2020 CKD-EPI creatinine equation. This equation utilizes serum creatinine, sex, and age as parameters. The creatinine assay has traceable calibration to isotope dilution-mass spectrometry. Refer to KDIGO guidelines for clinical interpretation. In patients with unstable renal function, e.g. those with acute kidney injury, the eGFR may not accurately reflect actual GFR. Performed By: #### 2 4321-2 ####[facility]ATORYCLIA [id number] [address] Glucose [Mass/Vol] 111 mg/dL High 74-99 [facility] Comment on above: Order Comment: Speci men Type: BLOOD SPECIMENOrdering Facility: [facility] Address: [address] [place] [address] Result Comment: The [place] Diabetes [employer] (ADA) provides guidance for cutoff values for fasting glucose and random glucose. The ADA defines fasting as no caloric intake for at least 8 hours. Fasting plasma glucose results between 100 to 125 mg/dL indicate increased risk for diabetes (prediabetes).Fasting plasma glucose results greater than or equal to 126 mg/dL meet the criteria for diagnosis of diabetes. In the absence of unequivocal hyperglycemia, results should be confirmed by repeat testing. In a patient with classic symptoms of hyperglycemia or hyperglycemic crisis, random plasma glucose results greater than or equal to 200 mg/dL meet the criteria for diagnosis of diabetes.Reference: Standards of Medical Care in Diabetes 2016, [place] [employer]. Diabetes Care. 2016.39(Suppl 1). Performed By: #### 2 4321-2 ####[facility]ATORYCLIA [id number] [place] [address] [place] Potassium [Moles/Vol] 4.7 mmol/L Normal 3.7-5.1 [facility] Comment on above: Order Comment: Specalisia ying Type: BLOOD SPECIMENOrdering Facility: [facility] Address: [address] [place] [address] Performed By: #### 2 4321-2 ####[facility]ATORYCLIA [id number] [place] [address] [place] Urea nitrogen [Mass/Vol] 39 mg/dL High 9-24 [facility] Comment on above: Order Comment: Lele ying Type: BLOOD SPECIMENOrdering Facility: [facility] Address: [address] [place] [address] Performed By: #### 2 4321-2 ####[facility]ORATORYCLIA [id number] [place] [address] [place] CBC Pnl Bld Autoon 4 Hemoglobin (Bld) [Mass/Vol] 10.0 g/dL Low 13.0-17.0 [facility] Comment on above: Order Comment: Lele ying Type: BLOOD SPECIMENOrdering Facility: [facility] Address: [address] [place] [address] Performed By: #### 5 8410-2 ####[facility]ATORYCLIA [id number] [address] Order Comment: Speci men Type: VENOUS BLOOD SPECIMENOrdering Facility: [facility] Address: [address] [place] [address] Performed By: #### 2 4344-4 ####[facility]ATORYCLIA [id number] [address] CBC panel Auto (Bld)on 06-09 Erythrocyte distribution width (RBC) [Ratio] 14.2 % Normal 11.5-15.0 [facility] Comment on above: Order Comment: Speci men Type: BLOOD SPECIMENOrdering Facility: [facility] Address: [address] [place] [address] Performed By: #### 5 8410-2 ####[facility]ATORYCLIA [id number] [address] Hematocrit (Bld) [Volume fraction] 31.2 % Low 39.0-51.0 [facility] Comment on above: Order Comment: Speci men Type: BLOOD SPECIMENOrdering Facility: [facility] Address: [address] [place] [address] Performed By: #### 5 8410-2 ####[facility]ATORYCLIA [id number] [address] MCH (RBC) [Entitic mass] 30.3 pg Normal 26.0-34.0 [facility] Comment on above: Order Comment: Speci men Type: BLOOD SPECIMENOrdering Facility: [facility] Address: [address] [place] [address] Performed By: #### 5 8410-2 ####[facility]ORYCLIA [id number] [address] MCHC (RBC) [Mass/Vol] 32.1 g/dL Normal 30.5-36.0 [facility] Comment on above: Order Comment: Speci men Type: BLOOD SPECIMENOrdering Facility: [facility] Address: [address] [place] [address] Performed By: #### 5 8410-2 ####[facility]ATORYCLIA [id number] [address] MCV (RBC) [Entitic vol] 94.5 fL Normal 80.0-100.0 [facility] Comment on above: Order Comment: Speci men Type: BLOOD SPECIMENOrdering Facility: [facility] Address: [address] [place] [address] Performed By: #### 5 8410-2 ####[facility]ATORYCLIA [id number] [address] [place] Nucleated RBC (Bld) [#/Vol] 10*3/uL Normal <0.01 [facility] Comment on above: Order Comment: Speci men Type: BLOOD SPECIMENOrdering Facility: [facility] Address: [address] [place] [address] Performed By: #### 5 8410-2 ####[facility]ATORYCLIA [id number] [address] Platelet mean volume (Bld) [Entitic vol] 10.1 fL Normal 9.0-12.7 [facility] Comment on above: Order Comment: Speci men Type: BLOOD SPECIMENOrdering Facility: [facility] Address: [address] [place] [address] Performed By: #### 5 8410-2 ####[facility]ATORYCLIA [id number] [address] Platelets (Bld) [#/Vol] 183 10*3/uL Normal 150-400 [facility] Comment on above: Order Comment: Speci men Type: BLOOD SPECIMENOrdering Facility: [facility] Address: [address] [place] [address] Performed By: #### 5 8410-2 ####[facility]ATORYCLIA [id number] [address] [place] RBC (Bld) [#/Vol] 3.30 10*6/uL Low 4.20-6.00 [facility] Comment on above: Order Comment: Speci men Type: BLOOD SPECIMENOrdering Facility: [facility] Address: [address] [place] [address] Performed By: #### 5 8410-2 ####[facility]ATORYCLIA [id number] [place] [address] [place] WBC (Bld) [#/Vol] 12.53 10*3/uL High 3.70-11.00 [facility] Comment on above: Order Comment: Speci men Type: BLOOD SPECIMENOrdering Facility: [facility] Address: [address] [place] [address] Performed By: #### 5 8410-2 ####[facility]ATORYCLIA [id number] [place] [id number] [place] Culture, Blood (WB)on 2023 CUB Blood cultures x2, f rom two different sites No growth in 5 days. Normal [facility] Comment on above: Performed By: #### L 503.6620, L100.0100, L503.6005, L500.2500, L501.4020, M200.1000 ####[facility] [id number] [facility] [place], [place], [address] Gas and Carbon monoxide pane l (BldV)on 06-09-2024 Base excess Calc (BldV) [Moles/Vol] 9 mmol/L High 0-2 [facility] Comment on above: Order Comment: Speci men Type: VENOUS BLOOD SPECIMENOrdering Facility: [facility] Address: [address] [place] [address] Performed By: #### 2 4344-4 ####[facility]ATORYCLIA [id number] [address] [place] Body temperature 98.6 [degF] Normal [facility] Comment on above: Order Comment: Speci men Type: VENOUS BLOOD SPECIMENOrdering Facility: [facility] Address: [address] [place] [address] Performed By: #### 2 4344-4 ####[facility]ATORYCLIA [id number] [address] Calcium.ionized (BldV) [Mass/Vol] 1.23 mmol/L Normal 1.08-1.30 [facility] Comment on above: Order Comment: Speci men Type: VENOUS BLOOD SPECIMENOrdering Facility: [facility] Address: [address] [place] [address] Performed By: #### 2 4344-4 ####[facility]ATORYCLIA [id number] [address] Calcium.ionized adjusted to pH 7.4 (BldA) [Moles/Vol] 1.23 mmol/L Normal 1.08-1.30 [facility] Comment on above: Order Comment: Speci men Type: VENOUS BLOOD SPECIMENOrdering Facility: [facility] Address: [address] [place] [address] Performed By: #### 2 4344-4 ####[facility] COUNTYCLIA [id number] [address] OF [facility] Carboxyhemoglobin (BldV) [Mass fraction] 0.7 % Normal 0.0-2.0 [facility] Comment on above: Order Comment: Speci men Type: VENOUS BLOOD SPECIMENOrdering Facility: [facility] Address: [address] [place] [address] Result Comment: Carb oxyhemoglobin Reference Range for Smokers: 2.0-8.0% Performed By: #### 2 4344-4 ####[facility]ATORYCLIA [id number] [address] STATES OF [facility] Chloride [Moles/Vol] 104 mmol/L Normal 102-109 [facility] Comment on above: Order Comment: Speci men Type: VENOUS BLOOD SPECIMENOrdering Facility: [facility] Address: [address] [place] [address] Performed By: #### 2 4344-4 ####[facility]ATORYCLIA [id number] [address] CO2 (BldV) [Partial pressure] 56 mm[Hg] High 42-55 [facility] Comment on above: Order Comment: Speci men Type: VENOUS BLOOD SPECIMENOrdering Facility: [facility] Address: [address] [place] [address] Performed By: #### 2 4344-4 ####[facility]ORYCLIA [id number] [place] [address] [place] FIO2 70 % Normal [facility] Comment on above: Order Comment: Speci men Type: VENOUS BLOOD SPECIMENOrdering Facility: [facility] Address: [address] [place] [address] Performed By: #### 2 4344-4 ####[facility]ATORYCLIA [id number] [address] [place] Glucose [Mass/Vol] 108 mg/dL High 60-105 [facility] Comment on above: Order Comment: Speci men Type: VENOUS BLOOD SPECIMENOrdering Facility: [facility] Address: [address] [place] [address] Performed By: #### 2 4344-4 ####[facility]ATORYCLIA [id number] [place] [address] [place] HCO3 (Bld) [Moles/Vol] 34 mmol/L High 24-28 [facility] Comment on above: Order Comment: Speci men Type: VENOUS BLOOD SPECIMENOrdering Facility: [facility] Address: [address] [place] [address] Performed By: #### 2 4344-4 ####[facility]ATORYCLIA [id number] [address] [place] Hematocrit (Bld) [Volume fraction] 31.1 % Low 39.0-51.0 [facility] Comment on above: Order Comment: Speci men Type: VENOUS BLOOD SPECIMENOrdering Facility: [facility] Address: [address] [place] [address] Performed By: #### 2 4344-4 ####[facility]ATORYCLIA [id number] [place] [address] [place] Lactate [Moles/Vol] 1.0 mmol/L Normal 0.5-2.2 [facility] Comment on above: Order Comment: Speci men Type: VENOUS BLOOD SPECIMENOrdering Facility: [facility] Address: [address] [place] [address] Performed By: #### 2 4344-4 ####[facility]ATORYCLIA [id number] [address] [place] Methemoglobin (Bld) [Mass fraction] 0.7 % Normal 0.0-1.5 [facility] Comment on above: Order Comment: Speci men Type: VENOUS BLOOD SPECIMENOrdering Facility: [facility] Address: [address] [place] [address] Performed By: #### 2 4344-4 ####[facility]ATORYCLIA [id number] [address] O2 THERAPY VENT=Ventilator Normal [facility] Comment on above: Order Comment: Speci men Type: VENOUS BLOOD SPECIMENOrdering Facility: [facility] Address: [address] [place] [address] Performed By: #### 2 4344-4 ####[facility]ATORYCLIA [id number] [address] [place] Oxygen (BldV) [Partial pressure] 64 mm[Hg] High 35-45 [facility] Comment on above: Order Comment: Speci men Type: VENOUS BLOOD SPECIMENOrdering Facility: [facility] Address: [address] [place] [address] Performed By: #### 2 4344-4 ####[facility]ATORYCLIA [id number] [address] [place] Oxygen saturation in Venous blood 91 % High 60-85 [facility] Comment on above: Order Comment: Speci men Type: VENOUS BLOOD SPECIMENOrdering Facility: [facility] Address: [address] [place] [address] Performed By: #### 2 4344-4 ####[facility]ATORYCLIA [id number] [address] [place] Oxyhemoglobin (BldV) [Mass fraction] 89 % High 60-85 [facility] Comment on above: Order Comment: Speci men Type: VENOUS BLOOD SPECIMENOrdering Facility: [facility] Address: [address] [place] [address] Performed By: #### 2 4344-4 ####[facility]ATORYCLIA [id number] [place] [address] [place] pH (BldV) 7.40 [pH] Normal 7.32-7.42 [facility] Comment on above: Order Comment: Speci men Type: VENOUS BLOOD SPECIMENOrdering Facility: [facility] Address: [address] [place] [address] Performed By: #### 2 4344-4 ####[facility]ATORYCLIA [id number] [address] [place] Potassium [Moles/Vol] 4.5 mmol/L Normal 3.5-5.0 [facility] Comment on above: Order Comment: Speci men Type: VENOUS BLOOD SPECIMENOrdering Facility: [facility] Address: [address] [place] [address] Performed By: #### 2 4344-4 ####[facility]ATORYCLIA [id number] [place] [address] [place] XR CHEST 1V FRONTALon 2023 XR CHEST 1V FRONTAL Normal [facility] XR CHEST 1V FRONTAL Normal [facility] ARTERIAL BLOOD GASESon 06-08 Base excess Calc (Bld) [Moles/Vol] 6 mmol/L High 0-2 [facility] Comment on above: Order Comment: Speci men Type: ARTERIAL BLOOD SPECIMENOrdering Facility: [facility] Address: [address] [place] [address] Performed By: #### A LLBG ####[facility]ORYCLIA [id number] [address] [place] Body temperature 99.5 [degF] Normal [facility] Comment on above: Order Comment: Speci men Type: ARTERIAL BLOOD SPECIMENOrdering Facility: [facility] Address: [address] [place] [address] Performed By: #### A LLBG ####[facility]ATORYCLIA [id number] [address] Calcium.ionized (BldV) [Mass/Vol] 1.21 mmol/L Normal 1.08-1.30 [facility] Comment on above: Order Comment: Speci men Type: ARTERIAL BLOOD SPECIMENOrdering Facility: [facility] Address: [address] [place] [address] Performed By: #### A LLBG ####[facility]ATORYCLIA [id number] [address] Calcium.ionized adjusted to pH 7.4 (BldA) [Moles/Vol] 1.16 mmol/L Normal 1.08-1.30 [facility] Comment on above: Order Comment: Speci men Type: ARTERIAL BLOOD SPECIMENOrdering Facility: [facility] Address: [address] [place] [address] Performed By: #### A LLBG ####[facility]ORYCLIA [id number] [address] Carboxyhemoglobin (BldA) [Mass fraction] 0.7 % Normal 0.0-2.0 [facility] Comment on above: Order Comment: Speci men Type: ARTERIAL BLOOD SPECIMENOrdering Facility: [facility] Address: [address] [place] [address] Result Comment: Carb oxyhemoglobin Reference Range for Smokers: 2.0-8.0% Performed By: #### A LLBG ####[facility]ORYCLIA [id number] [address] Chloride [Moles/Vol] 104 mmol/L Normal 102-109 [facility] Comment on above: Order Comment: Speci men Type: ARTERIAL BLOOD SPECIMENOrdering Facility: [facility] Address: [address] [place] [address] Performed By: #### A LLBG ####[facility] [facility]ORY[facility]IA [id number] [address] [place] CO2 (Bld) [Partial pressure] 68 mm Hg High 36-46 [facility] Comment on above: Order Comment: Speci men Type: ARTERIAL BLOOD SPECIMENOrdering Facility: [facility] Address: [address] [place] [address] Performed By: #### A LLBG ####[facility]ORY[facility]IA [id number] [address] CO2 adjusted to patient's actual temperature (Bld) [Partial pressure] 69 mmHg High 36-46 [facility] Comment on above: Order Comment: Speci men Type: ARTERIAL BLOOD SPECIMENOrdering Facility: [facility] Address: [address] [place] [address] Performed By: #### A LLBG ####[facility]ORYCLIA [id number] [address] [place] FIO2 70 % Normal [facility] Comment on above: Order Comment: Speci men Type: ARTERIAL BLOOD SPECIMENOrdering Facility: [facility] Address: [address] [place] [address] Performed By: #### A LLBG ####[facility]ORYCLIA [id number] [address] [place] Glucose [Mass/Vol] 116 mg/dL High 60-105 [facility] Comment on above: Order Comment: Speci men Type: ARTERIAL BLOOD SPECIMENOrdering Facility: [facility] Address: [address] [place] [address] Performed By: #### A LLBG ####[facility]ORYCLIA [id number] [place] [address] [place] HCO3 (Bld) [Moles/Vol] 34 mmol/L High 22-26 [facility] Comment on above: Order Comment: Speci men Type: ARTERIAL BLOOD SPECIMENOrdering Facility: [facility] Address: [address] [place] [address] Performed By: #### A LLBG ####[facility]ORYCLIA [id number] [address] OF [facility] Hematocrit (Bld) [Volume fraction] 33.5 % Low 39.0-51.0 [facility] Comment on above: Order Comment: Speci men Type: ARTERIAL BLOOD SPECIMENOrdering Facility: [facility] Address: [address] [place] [address] Performed By: #### A LLBG ####[facility]ORYCLIA [id number] [address] [place] Hemoglobin (Bld) [Mass/Vol] 10.9 g/dL Low 13.0-17.0 [facility] Comment on above: Order Comment: Speci men Type: ARTERIAL BLOOD SPECIMENOrdering Facility: [facility] Address: [address] [place] [address] Performed By: #### A LLBG ####[facility]ORYCLIA [id number] [address] Lactate [Moles/Vol] 0.8 mmol/L Normal 0.5-2.2 [facility] Comment on above: Order Comment: Speci men Type: ARTERIAL BLOOD SPECIMENOrdering Facility: [facility] Address: [address] [place] [address] Performed By: #### A LLBG ####[facility]ORYCLIA [id number] [address] [place] Methemoglobin (Bld) [Mass fraction] 0.8 % Normal 0.0-1.5 [facility] Comment on above: Order Comment: Speci men Type: ARTERIAL BLOOD SPECIMENOrdering Facility: [facility] Address: [address] [place] [address] Performed By: #### A LLBG ####[facility]ORYCLIA [id number] [address] O2 THERAPY VENT=Ventilator Normal [facility] Comment on above: Order Comment: Speci men Type: ARTERIAL BLOOD SPECIMENOrdering Facility: [facility] Address: [address] [place] [address] Performed By: #### A LLBG ####[facility]ORYCLIA [id number] [address] [place] Oxygen (Bld) [Partial pressure] 60 mm Hg Low 85-95 [facility] Comment on above: Order Comment: Speci men Type: ARTERIAL BLOOD SPECIMENOrdering Facility: [facility] Address: [address] [place] [address] Performed By: #### A LLBG ####[facility]ATORYCLIA [id number] [address] Oxygen adjusted to patient's actual temperature (Bld) [Partial pressure] 62 mmHg Low 85-95 [facility] Comment on above: Order Comment: Speci men Type: ARTERIAL BLOOD SPECIMENOrdering Facility: [facility] Address: [address] [place] [address] Performed By: #### A LLBG ####[facility]ORYCLIA [id number] [address] [place] Oxyhemoglobin (BldA) [Mass fraction] 83 % Low 95-98 [facility] Comment on above: Order Comment: Speci men Type: ARTERIAL BLOOD SPECIMENOrdering Facility: [facility] Address: [address] [place] [address] Performed By: #### A LLBG ####[facility]ORYCLIA [id number] [address] [place] pH (Bld) 7.32 [pH] Low 7.35-7.45 [facility] Comment on above: Order Comment: Speci men Type: ARTERIAL BLOOD SPECIMENOrdering Facility: [facility] Address: [address] [place] [address] Performed By: #### A LLBG ####[facility]ATORYCLIA [id number] [address] STATES [facility] pH adjusted to patient's actual temperature (Bld) 7.31 Low 7.35-7.45 [facility] Comment on above: Order Comment: Speci men Type: ARTERIAL BLOOD SPECIMENOrdering Facility: [facility] Address: [address] [place] [address] Performed By: #### A LLBG ####[facility]ORYCLIA [id number] [address] PO2 / FIO2 RATIO 86 mmHg Low >300 [facility] Comment on above: Order Comment: Speci men Type: ARTERIAL BLOOD SPECIMENOrdering Facility: [facility] Address: [address] [place] [address] Performed By: #### A LLBG ####[facility]ORYCLIA [id number] [address] [place] Potassium [Moles/Vol] 4.2 mmol/L Normal 3.5-5.0 [facility] Comment on above: Order Comment: Speci men Type: ARTERIAL BLOOD SPECIMENOrdering Facility: [facility] Address: [address] [place] [address] Performed By: #### A LLBG ####[facility]ORYCLIA [id number] [address] [place] Sodium [Moles/Vol] 141 mmol/L Normal 136-144 [facility] Comment on above: Order Comment: Speci men Type: ARTERIAL BLOOD SPECIMENOrdering Facility: [facility] Address: [address] [place] [address] Performed By: #### A LLBG ####[facility]ORYCLIA [id number] [address] [place] Base excess Calc (Bld) [Moles/Vol] 8 mmol/L High 0-2 [facility] Comment on above: Order Comment: Speci men Type: ARTERIAL BLOOD SPECIMENOrdering Facility: [facility] Address: [address] [place] [address] Performed By: #### A LLBG ####[facility]ORYCLIA [id number] [address] Body temperature 99.32 [degF] Normal [facility] Comment on above: Order Comment: Speci men Type: ARTERIAL BLOOD SPECIMENOrdering Facility: [facility] Address: [address] [place], [place] [id number] Performed By: #### A LLBG ####[facility]ORYCLIA [id number] [address] Calcium.ionized (BldV) [Mass/Vol] 1.18 mmol/L Normal 1.08-1.30 [facility] Comment on above: Order Comment: Speci men Type: ARTERIAL BLOOD SPECIMENOrdering Facility: [facility] Address: [address] [place] [address] Performed By: #### A LLBG ####[facility]ORYCLIA [id number] [address] Calcium.ionized adjusted to pH 7.4 (BldA) [Moles/Vol] 1.20 mmol/L Normal 1.08-1.30 [facility] Comment on above: Order Comment: Speci men Type: ARTERIAL BLOOD SPECIMENOrdering Facility: [facility] Address: [address] [place] [address] Performed By: #### A LLBG ####[facility]ORYCLIA [id number] [address] Carboxyhemoglobin (BldA) [Mass fraction] 1.3 % Normal 0.0-2.0 [facility] Comment on above: Order Comment: Speci men Type: ARTERIAL BLOOD SPECIMENOrdering Facility: [facility] Address: [address] [place] [address] Result Comment: Carb oxyhemoglobin Reference Range for Smokers: 2.0-8.0% Performed By: #### A LLBG ####[facility]ORYCLIA [id number] [address] OF [facility] Chloride [Moles/Vol] 103 mmol/L Normal 102-109 [facility] Comment on above: Order Comment: Speci men Type: ARTERIAL BLOOD SPECIMENOrdering Facility: [facility] Address: [address] [place] [address] Performed By: #### A LLBG ####[facility]ATORYCLIA [id number] [place] [address] [place] CO2 (Bld) [Partial pressure] 49 mm Hg High 36-46 [facility] Comment on above: Order Comment: Speci men Type: ARTERIAL BLOOD SPECIMENOrdering Facility: [facility] Address: [facility] [place] [address] Performed By: #### A LLBG ####[facility]ORYCLIA [id number] [address] [place] CO2 adjusted to patient's actual temperature (Bld) [Partial pressure] 50 mmHg High 36-46 [facility] Comment on above: Order Comment: Speci men Type: ARTERIAL BLOOD SPECIMENOrdering Facility: [facility] Address: [address] [place] [address] Performed By: #### A LLBG ####[facility]ORYCLIA [id number] [address] [place] FIO2 50 % Normal [facility] Comment on above: Order Comment: Speci men Type: ARTERIAL BLOOD SPECIMENOrdering Facility: [facility] Address: [address] [place] [address] Performed By: #### A LLBG ####[facility]ORYCLIA [id number] [address] [place] Glucose [Mass/Vol] 108 mg/dL High 60-105 [facility] Comment on above: Order Comment: Speci men Type: ARTERIAL BLOOD SPECIMENOrdering Facility: [facility] Address: [address] [place] [address] Performed By: #### A LLBG ####[facility]ORYCLIA [id number] [place] [address] [place] HCO3 (Bld) [Moles/Vol] 33 mmol/L High 22-26 [facility] Comment on above: Order Comment: Speci men Type: ARTERIAL BLOOD SPECIMENOrdering Facility: [facility] Address: [address] [place] [address] Performed By: #### A LLBG ####[facility]ATORYCLIA [id number] [place] [address] [place] Hematocrit (Bld) [Volume fraction] 33.7 % Low 39.0-51.0 [facility] Comment on above: Order Comment: Speci men Type: ARTERIAL BLOOD SPECIMENOrdering Facility: [facility] Address: [address] [place] [address] Performed By: #### A LLBG ####[facility]ORYCLIA [id number] [address] [place] Hemoglobin (Bld) [Mass/Vol] 10.9 g/dL Low 13.0-17.0 [facility] Comment on above: Order Comment: Speci men Type: ARTERIAL BLOOD SPECIMENOrdering Facility: [facility] Address: [address] [place] [address] Performed By: #### A LLBG ####[facility]ORYCLIA [id number] [address] [place] Lactate [Moles/Vol] 1.0 mmol/L Normal 0.5-2.2 [facility] Comment on above: Order Comment: Speci men Type: ARTERIAL BLOOD SPECIMENOrdering Facility: [facility] Address: [address] [place] [address] Performed By: #### A LLBG ####[facility]ORYCLIA [id number] [address] [place] Methemoglobin (Bld) [Mass fraction] 0.7 % Normal 0.0-1.5 [facility] Comment on above: Order Comment: Speci men Type: ARTERIAL BLOOD SPECIMENOrdering Facility: [facility] Address: [address] [place] [address] Performed By: #### A LLBG ####[facility]ORYCLIA [id number] [address] STATES OF [facility] O2 THERAPY VENT=Ventilator Normal [facility] Comment on above: Order Comment: Speci men Type: ARTERIAL BLOOD SPECIMENOrdering Facility: [facility] Address: [address] [place] [address] Performed By: #### A LLBG ####[facility]ORYCLIA [id number] [address] [place] Oxygen (Bld) [Partial pressure] 65 mm Hg Low 85-95 [facility] Comment on above: Order Comment: Speci men Type: ARTERIAL BLOOD SPECIMENOrdering Facility: [facility] Address: [address] [place] [address] Performed By: #### A LLBG ####[facility]ORYCLIA [id number] [address] [place] Oxygen adjusted to patient's actual temperature (Bld) [Partial pressure] 66 mmHg Low 85-95 [facility] Comment on above: Order Comment: Speci men Type: ARTERIAL BLOOD SPECIMENOrdering Facility: [facility] Address: [address] [place] [address] Performed By: #### A LLBG ####[facility]ORYCLIA [id number] [address] [place] Oxyhemoglobin (BldA) [Mass fraction] 90 % Low 95-98 [facility] Comment on above: Order Comment: Speci men Type: ARTERIAL BLOOD SPECIMENOrdering Facility: [facility] Address: [address] [place] [address] Performed By: #### A LLBG ####[facility]ATORYCLIA [id number] [address] [place] pH (Bld) 7.44 [pH] Normal 7.35-7.45 [facility] Comment on above: Order Comment: Speci men Type: ARTERIAL BLOOD SPECIMENOrdering Facility: [facility] Address: [address] [place] [address] Performed By: #### A LLBG ####[facility]ORYCLIA [id number] [address] [place] pH adjusted to patient's actual temperature (Bld) 7.43 Normal 7.35-7.45 [facility] Comment on above: Order Comment: Speci men Type: ARTERIAL BLOOD SPECIMENOrdering Facility: [facility] Address: [address] [place] [address] Performed By: #### A LLBG ####[facility]ATORYCLIA [id number] [place] [address] [place] PO2 / FIO2 RATIO 130 mmHg Low >300 [facility] Comment on above: Order Comment: Speci men Type: ARTERIAL BLOOD SPECIMENOrdering Facility: [facility] Address: [address] [place] [address] Performed By: #### A LLBG ####[facility]ORYCLIA [id number] [address] [place] Potassium [Moles/Vol] 4.2 mmol/L Normal 3.5-5.0 [facility] Comment on above: Order Comment: Speci men Type: ARTERIAL BLOOD SPECIMENOrdering Facility: [facility] Address: [address] [place] [address] Performed By: #### A LLBG ####[facility]ORYCLIA [id number] [address] [place] Sodium [Moles/Vol] 138 mmol/L Normal 136-144 [facility] Comment on above: Order Comment: Speci men Type: ARTERIAL BLOOD SPECIMENOrdering Facility: [facility] Address: [address] [place] [address] Performed By: #### A LLBG ####[facility]ORYCLIA [id number] [place] [address] [place] Basic metabolic 2000 panelon 06-08-2024 Anion gap [Moles/Vol] 10 mmol/L Normal 8-15 [facility] Comment on above: Order Comment: Speci men Type: BLOOD SPECIMENOrdering Facility: [facility] Address: [address] [place] [address] Performed By: #### 2 4321-2, 2571-8 ####[facility]ORYCLIA [id number] [place] [address] [place] Calcium [Mass/Vol] 8.9 mg/dL Normal 8.5-10.2 [facility] Comment on above: Order Comment: Speci men Type: BLOOD SPECIMENOrdering Facility: [facility] Address: [address] [place], [place] [address] Performed By: #### 2 4321-2, 2570-8 ####[facility]ORYCLIA [id number] [address] [place] Chloride [Moles/Vol] 101 mmol/L Normal 98-107 [facility] Comment on above: Order Comment: Speci men Type: BLOOD SPECIMENOrdering Facility: [facility] Address: [address] [place] [address] Performed By: #### 2 4321-2, 2570-8 ####[facility]ATORYCLIA [id number] [place] [id number] [place] CO2 [Moles/Vol] 29 mmol/L Normal 22-30 [facility] Comment on above: Order Comment: Speci men Type: BLOOD SPECIMENOrdering Facility: [facility] Address: [address] [place] [address] Performed By: #### 2 4321-2, 2570-8 ####[facility]ORYCLIA [id number] [address] OF [facility] Creatinine [Mass/Vol] 0.67 mg/dL Low 0.73-1.22 [facility] Comment on above: Order Comment: Speci men Type: BLOOD SPECIMENOrdering Facility: [facility] Address: [address] [place] [address] Performed By: #### 2 4321-2, 2570-8 ####[facility]ORYCLIA [id number] [address] Creatinine and Glomerular filtration rate.predicted panel (S/P/Bld) 106 mL/min/1.73m??? Normal >=60 [facility] Comment on above: Order Comment: Speci men Type: BLOOD SPECIMENOrdering Facility: [facility] Address: [address] [place] [address] Result Comment: Aury mated Glomerular Filtration Rate (eGFR) is calculated using the 2020 CKD-EPI creatinine equation. This equation utilizes serum creatinine, sex, and age as parameters. The creatinine assay has traceable calibration to isotope dilution-mass spectrometry. Refer to KDIGO guidelines for clinical interpretation. In patients with unstable renal function, e.g. those with acute kidney injury, the eGFR may not accurately reflect actual GFR. Performed By: #### 2 4321-2, 8 ####[facility]ORYCLIA [id number] [place] [address] [place] Glucose [Mass/Vol] 107 mg/dL High 74-99 [facility] Comment on above: Order Comment: Lele ying Type: BLOOD SPECIMENOrdering Facility: [facility] Address: [address] [place] [address] Result Comment: The [place] [employer] (ADA) provides guidance for cutoff values for fasting glucose and random glucose. The ADA defines fasting as no caloric intake for at least 8 hours. Fasting plasma glucose results between 100 to 125 mg/dL indicate increased risk for diabetes (prediabetes).Fasting plasma glucose results greater than or equal to 126 mg/dL meet the criteria for diagnosis of diabetes. In the absence of unequivocal hyperglycemia, results should be confirmed by repeat testing. In a patient with classic symptoms of hyperglycemia or hyperglycemic crisis, random plasma glucose results greater than or equal to 200 mg/dL meet the criteria for diagnosis of diabetes.Reference: Standards of Medical Care in Diabetes 2016, [place] [employer]. Diabetes Care. 2016.39(Suppl 1). Performed By: #### 2 4321-, 8 ####[facility]ORYCLIA [id number] [place] [address] [place] Potassium [Moles/Vol] 4.5 mmol/L Normal 3.7-5.1 [facility] Comment on above: Order Comment: Lele ying Type: BLOOD SPECIMENOrdering Facility: [facility] Address: [address] [place] [id number] Performed By: #### 2 4321-2, 2571-04 ####[facility]ORYCLIA [id number] [place] [address] [place] Sodium [Moles/Vol] 140 mmol/L Normal 136-144 [facility] Comment on above: Order Comment: Lele ying Type: BLOOD SPECIMENOrdering Facility: [facility] Address: [address] [place] [address] Performed By: #### 2 4321-2, 2571-8 ####[facility]ATORYCLIA [id number] [place] [address] [place] Urea nitrogen [Mass/Vol] 33 mg/dL High 9-24 [facility] Comment on above: Order Comment: Speci men Type: BLOOD SPECIMENOrdering Facility: [facility] Address: [facility] [place] [address] Performed By: #### 2 4321-2, 2571-8 ####[facility]ORYCLIA [id number] [place] [address] [place] CASE MANAGEMon 06-08-2024 CASE MANAGEM Normal [facility] CBC panel Auto (Bld)on 06-08 Erythrocyte distribution width (RBC) [Ratio] 14.2 % Normal 11.5-15.0 [facility] Comment on above: Order Comment: Speci men Type: BLOOD SPECIMENOrdering Facility: [facility] Address: [address] [place] [address] Performed By: #### 5 8410-2 ####[facility]ORYCLIA [id number] [address] [place] Hematocrit (Bld) [Volume fraction] 33.3 % Low 39.0-51.0 [facility] Comment on above: Order Comment: Speci men Type: BLOOD SPECIMENOrdering Facility: [facility] Address: [address] [place] [address] Performed By: #### 5 8410-2 ####[facility]ATORYCLIA [id number] [address] [place] Hemoglobin (Bld) [Mass/Vol] 10.7 g/dL Low 13.0-17.0 [facility] Comment on above: Order Comment: Speci men Type: BLOOD SPECIMENOrdering Facility: [facility] Address: [address] [place] [address] Performed By: #### 5 8410-2 ####[facility]ATORYCLIA [id number] [address] MCH (RBC) [Entitic mass] 29.9 pg Normal 26.0-34.0 [facility] Comment on above: Order Comment: Speci men Type: BLOOD SPECIMENOrdering Facility: [facility] Address: [address] [place] [address] Performed By: #### 5 8410-2 ####[facility]ATORYCLIA [id number] [address] [place] MCHC (RBC) [Mass/Vol] 32.1 g/dL Normal 30.5-36.0 [facility] Comment on above: Order Comment: Speci men Type: BLOOD SPECIMENOrdering Facility: [facility] Address: [address] [place] [address] Performed By: #### 5 8410-2 ####[facility]ORYCLIA [id number] [address] MCV (RBC) [Entitic vol] 93.0 fL Normal 80.0-100.0 [facility] Comment on above: Order Comment: Speci men Type: BLOOD SPECIMENOrdering Facility: [facility] Address: [address] [place] [address] Performed By: #### 5 8410-2 ####[facility]ORYCLIA [id number] [address] Nucleated RBC (Bld) [#/Vol] 10*3/uL Normal <0.01 [facility] Comment on above: Order Comment: Speci men Type: BLOOD SPECIMENOrdering Facility: [facility] Address: [address] [place] [address] Performed By: #### 5 8410-2 ####[facility]ORYCLIA [id number] [address] Platelet mean volume (Bld) [Entitic vol] 9.9 fL Normal 9.0-12.7 [facility] Comment on above: Order Comment: Speci men Type: BLOOD SPECIMENOrdering Facility: [facility] Address: [address] [place] [address] Performed By: #### 5 8410-2 ####[facility]ORYCLIA [id number] [address] OF [facility] Platelets (Bld) [#/Vol] 209 10*3/uL Normal 150-400 [facility] Comment on above: Order Comment: Speci men Type: BLOOD SPECIMENOrdering Facility: [facility] Address: [address] [place] [address] Performed By: #### 5 8410-2 ####[facility]ORYCLIA [id number] [address] STATES OF [facility] RBC (Bld) [#/Vol] 3.58 10*6/uL Low 4.20-6.00 [facility] Comment on above: Order Comment: Speci men Type: BLOOD SPECIMENOrdering Facility: [facility] Address: [address] [place] [address] Performed By: #### 5 8410-2 ####[facility] LABORATORYCLIA [id number] [address] OF [facility] WBC (Bld) [#/Vol] 13.22 10*3/uL High 3.70-11.00 [facility] Comment on above: Order Comment: Speci men Type: BLOOD SPECIMENOrdering Facility: [facility] Address: [address] [place] [address] Performed By: #### 5 8410-2 ####[facility] LABORATORYCLIA [id number] [address] D dimer FEU PPP-mCncon 06-08 Fibrin D-dimer FEU (PPP) [Mass/Vol] 78167 ng/mL FEU High <500 [facility] Comment on above: Order Comment: Speci men Type: BLOOD SPECIMENOrdering Facility: [facility] Address: [address] [place] [address] Performed By: #### 4 8065-7 ####[facility]ATORYCLIA [id number] [address] Fibrin D-dimer FEU (PPP) [Ma ss/Vol]on 06-08-2024 D DIMER AGE-RELATED CUTOFF 620 ng/mL FEU Normal [facility] Comment on above: Order Comment: Speci men Type: BLOOD SPECIMENOrdering Facility: [facility] Address: [address] [place] [address] Performed By: #### 4 8065-7 ####[facility]ATORYCLIA [id number] [address] Gas and Carbon monoxide pane l (BldV)on 06-08-2024 Base excess Calc (BldV) [Moles/Vol] 6 mmol/L High 0-2 [facility] Comment on above: Order Comment: Speci men Type: VENOUS BLOOD SPECIMENOrdering Facility: [facility] Address: [address] [place] [address] Performed By: #### 2 4344-4 ####[facility]ATORYCLIA [id number] [address] Body temperature 98.6 [degF] Normal [facility] Comment on above: Order Comment: Speci men Type: VENOUS BLOOD SPECIMENOrdering Facility: [facility] Address: [address] [place] [address] Performed By: #### 2 4344-4 ####[facility] COUNTYCLIA [id number] [address] Calcium.ionized (BldV) [Mass/Vol] 1.19 mmol/L Normal 1.08-1.30 [facility] Comment on above: Order Comment: Speci men Type: VENOUS BLOOD SPECIMENOrdering Facility: [facility] Address: [address] [place] [address] Performed By: #### 2 4344-4 ####[facility]ORATORYCLIA [id number] [address] Calcium.ionized adjusted to pH 7.4 (BldA) [Moles/Vol] 1.16 mmol/L Normal 1.08-1.30 [facility] Comment on above: Order Comment: Speci men Type: VENOUS BLOOD SPECIMENOrdering Facility: [facility] Address: [address] [place] [address] Performed By: #### 2 4344-4 ####[facility] LABORATORYCLIA [id number] [address] [place] Carboxyhemoglobin (BldV) [Mass fraction] 0.5 % Normal 0.0-2.0 [facility] Comment on above: Order Comment: Speci men Type: VENOUS BLOOD SPECIMENOrdering Facility: [facility] Address: [address] [place] [address] Result Comment: Carb oxyhemoglobin Reference Range for Smokers: 2.0-8.0% Performed By: #### 2 4344-4 ####[facility] LABORATORYCLIA [id number] [place] [address] [place] Chloride [Moles/Vol] 103 mmol/L Normal 102-109 [facility] Comment on above: Order Comment: Speci men Type: VENOUS BLOOD SPECIMENOrdering Facility: [facility] Address: [address] [place] [address] Performed By: #### 2 4344-4 ####[facility]ATORYCLIA [id number] [place] [address] [place] CO2 (BldV) [Partial pressure] 62 mm[Hg] High 42-55 [facility] Comment on above: Order Comment: Speci men Type: VENOUS BLOOD SPECIMENOrdering Facility: [facility] Address: [address] [place] [address] Performed By: #### 2 4344-4 ####[facility]ATORYCLIA [id number] [place] [address] [place] Glucose [Mass/Vol] 147 mg/dL High 60-105 [facility] Comment on above: Order Comment: Speci men Type: VENOUS BLOOD SPECIMENOrdering Facility: [facility] Address: [address] [place] [address] Performed By: #### 2 4344-4 ####[facility]ATORYCLIA [id number] [address] [place] HCO3 (Bld) [Moles/Vol] 33 mmol/L High 24-28 [facility] Comment on above: Order Comment: Speci men Type: VENOUS BLOOD SPECIMENOrdering Facility: [facility] Address: [address] [place] [address] Performed By: #### 2 4344-4 ####[facility]ATORYCLIA [id number] [address] [place] Hematocrit (Bld) [Volume fraction] 34.1 % Low 39.0-51.0 [facility] Comment on above: Order Comment: Speci men Type: VENOUS BLOOD SPECIMENOrdering Facility: [facility] Address: [address] [place] [address] Performed By: #### 2 4344-4 ####[facility]ATORYCLIA [id number] [place] [address] [place] Hemoglobin (Bld) [Mass/Vol] 11.0 g/dL Low 13.0-17.0 [facility] Comment on above: Order Comment: Speci men Type: VENOUS BLOOD SPECIMENOrdering Facility: [facility] Address: [address] [place] [address] Performed By: #### 2 4344-4 ####[facility]ATORYCLIA [id number] [address] [place] Lactate [Moles/Vol] 0.7 mmol/L Normal 0.5-2.2 [facility] Comment on above: Order Comment: Speci men Type: VENOUS BLOOD SPECIMENOrdering Facility: [facility] Address: [address] [place] [address] Performed By: #### 2 4344-4 ####[facility]ATORYCLIA [id number] [address] [place] Methemoglobin (Bld) [Mass fraction] 0.8 % Normal 0.0-1.5 [facility] Comment on above: Order Comment: Speci men Type: VENOUS BLOOD SPECIMENOrdering Facility: [facility] Address: [address] [place] [address] [place] [address] Performed By: #### 2 4344-4 ####[facility] LABORATORYCLIA [id number] [place] [address] [facility] [place] O2 THERAPY VENT=Ventilator Normal [facility] Comment on above: Order Comment: Speci men Type: VENOUS BLOOD SPECIMENOrdering Facility: [facility] Address: [address] [place] [address] Performed By: #### 2 4344-4 ####[facility] LABORATORYCLIA [id number] [address] [place] Oxygen (BldV) [Partial pressure] 75 mm[Hg] High 35-45 [facility] Comment on above: Order Comment: Speci men Type: VENOUS BLOOD SPECIMENOrdering Facility: [facility] Address: [address] [place] [address] Performed By: #### 2 4344-4 ####[facility]ATORYCLIA [id number] [address] [place] Oxygen saturation in Venous blood 93 % High 60-85 [facility] Comment on above: Order Comment: Speci men Type: VENOUS BLOOD SPECIMENOrdering Facility: [facility] Address: [address] [place] [address] Performed By: #### 2 4344-4 ####[facility] LABORATORYCLIA [id number] [place] [id number] [place] Oxyhemoglobin (BldV) [Mass fraction] 92 % High 60-85 [facility] Comment on above: Order Comment: Speci men Type: VENOUS BLOOD SPECIMENOrdering Facility: [facility] Address: [address] [place] [address] Performed By: #### 2 4344-4 ####[facility]ATORYCLIA [id number] [place] [address] [place] pH (BldV) 7.34 [pH] Normal 7.32-7.42 [facility] Comment on above: Order Comment: Speci men Type: VENOUS BLOOD SPECIMENOrdering Facility: [facility] Address: [address] [place] [address] Performed By: #### 2 4344-4 ####[facility]ATORYCLIA [id number] [address] [place] Potassium [Moles/Vol] 4.8 mmol/L Normal 3.5-5.0 [facility] Comment on above: Order Comment: Speci men Type: VENOUS BLOOD SPECIMENOrdering Facility: [facility] Address: [address] [place] [address] Performed By: #### 2 4344-4 ####[facility]ATORYCLIA [id number] [address] [place] Sodium [Moles/Vol] 139 mmol/L Normal 136-144 [facility] Comment on above: Order Comment: Speci men Type: VENOUS BLOOD SPECIMENOrdering Facility: [facility] Address: [address] [place] [address] Performed By: #### 2 4344-4 ####[facility]ATORYCLIA [id number] [address] [place] NUTRITIONon 06-08-2024 NUTRITION Normal [facility] Trigl SerPl-mCncon Triglyceride [Mass/Vol] 169 mg/dL High <150 [facility] Comment on above: Order Comment: Speci men Type: BLOOD SPECIMENOrdering Facility: [facility] Address: [address] [place] [address] Result Comment: <150 mg/dL, Normal 150-199 mg/dL, Borderline high 200-499 mg/dL, High>499 mg/dL, Very highReference:1. National Cholesterol Education Program ATP III Guideline At-A-Glance Quick Desk Reference: National Heart, Lung, and Blood [place]. National Institutes of Health. 2001: NIH Publication No. 01-3305. Performed By: #### 2 4321-2, 2571-8 ####[facility]ATORYCLIA [id number] [address] [place] Triglyceride [Mass/Vol]on FASTING TIME unknown Normal [facility] Comment on above: Order Comment: Speci men Type: BLOOD SPECIMENOrdering Facility: [facility] Address: [address] [place] [address] Performed By: #### 2 4321-2, 2571-8 ####[facility]ATORYCLIA [id number] [place] [address] [place] US DVT LOWER BILon US DVT LOWER SAGAR Normal [facility] XR CHEST 1V FRONTALon 2023 XR CHEST 1V FRONTAL Normal [facility] ARTERIAL BLOOD GASESon 06-07 Base excess Calc (Bld) [Moles/Vol] 5 mmol/L High 0-2 [facility] Comment on above: Order Comment: Speci men Type: ARTERIAL BLOOD SPECIMENOrdering Facility: [facility] Address: [address] [place] [address] Performed By: #### A LLBG ####[facility]ATORYCLIA [id number] [address] [place] Body temperature 98.42 [degF] Normal [facility] Comment on above: Order Comment: Speci men Type: ARTERIAL BLOOD SPECIMENOrdering Facility: [facility] Address: [address] [place] [address] Performed By: #### A LLBG ####[facility]ATORYCLIA [id number] [address] [place] Calcium.ionized (BldV) [Mass/Vol] 1.18 mmol/L Normal 1.08-1.30 [facility] Comment on above: Order Comment: Speci men Type: ARTERIAL BLOOD SPECIMENOrdering Facility: [facility] Address: [address] [place] [address] Performed By: #### A LLBG ####[facility]ATORYCLIA [id number] [address] [place] Calcium.ionized adjusted to pH 7.4 (BldA) [Moles/Vol] 1.18 mmol/L Normal 1.08-1.30 [facility] Comment on above: Order Comment: Speci men Type: ARTERIAL BLOOD SPECIMENOrdering Facility: [facility] Address: [address] [place] [address] Performed By: #### A LLBG ####[facility]ATORYCLIA [id number] [address] Carboxyhemoglobin (BldA) [Mass fraction] 0.7 % Normal 0.0-2.0 [facility] Comment on above: Order Comment: Speci men Type: ARTERIAL BLOOD SPECIMENOrdering Facility: [facility] Address: [address] [place] [address] Result Comment: Carb oxyhemoglobin Reference Range for Smokers: 2.0-8.0% Performed By: #### A LLBG ####[facility]ATORYCLIA [id number] [address] Chloride [Moles/Vol] 103 mmol/L Normal 102-109 [facility] Comment on above: Order Comment: Speci men Type: ARTERIAL BLOOD SPECIMENOrdering Facility: [facility] Address: [address] [place] [address] Performed By: #### A LLBG ####[facility]ATORYCLIA [id number] [address] [place] CO2 (Bld) [Partial pressure] 49 mm Hg High 36-46 [facility] Comment on above: Order Comment: Speci men Type: ARTERIAL BLOOD SPECIMENOrdering Facility: [facility] Address: [address] [place] [address] Performed By: #### A LLBG ####[facility]ATORYCLIA [id number] [address] [place] CO2 adjusted to patient's actual temperature (Bld) [Partial pressure] 49 mmHg High 36-46 [facility] Comment on above: Order Comment: Speci men Type: ARTERIAL BLOOD SPECIMENOrdering Facility: [facility] Address: [address] [place] [address] Performed By: #### A LLBG ####[facility]ATORYCLIA [id number] [place] [address] [place] FIO2 40 % Normal [facility] Comment on above: Order Comment: Speci men Type: ARTERIAL BLOOD SPECIMENOrdering Facility: [facility] Address: [address] [place] [address] Performed By: #### A LLBG ####[facility]ATORYCLIA [id number] [place] [address] [place] Glucose [Mass/Vol] 118 mg/dL High 60-105 [facility] Comment on above: Order Comment: Speci men Type: ARTERIAL BLOOD SPECIMENOrdering Facility: [facility] Address: [address] [place] [address] Performed By: #### A LLBG ####[facility]ATORYCLIA [id number] [place] [address] [place] HCO3 (Bld) [Moles/Vol] 30 mmol/L High 22-26 [facility] Comment on above: Order Comment: Speci men Type: ARTERIAL BLOOD SPECIMENOrdering Facility: [facility] Address: [address] [place] [address] Performed By: #### A LLBG ####[facility]ORATORYCLIA [id number] [address] [place] Hematocrit (Bld) [Volume fraction] 33.5 % Low 39.0-51.0 [facility] Comment on above: Order Comment: Speci men Type: ARTERIAL BLOOD SPECIMENOrdering Facility: [facility] Address: [address] [place] [address] Performed By: #### A LLBG ####[facility]ATORYCLIA [id number] [place] [address] [place] Hemoglobin (Bld) [Mass/Vol] 10.8 g/dL Low 13.0-17.0 [facility] Comment on above: Order Comment: Speci men Type: ARTERIAL BLOOD SPECIMENOrdering Facility: [facility] Address: [address] [place] [address] Performed By: #### A LLBG ####[facility]ATORYCLIA [id number] [place] [address] [place] Lactate [Moles/Vol] 1.1 mmol/L Normal 0.5-2.2 [facility] Comment on above: Order Comment: Speci men Type: ARTERIAL BLOOD SPECIMENOrdering Facility: [facility] Address: [address] [place] [address] Performed By: #### A LLBG ####[facility]ATORYCLIA [id number] [address] [place] Methemoglobin (Bld) [Mass fraction] 0.7 % Normal 0.0-1.5 [facility] Comment on above: Order Comment: Speci men Type: ARTERIAL BLOOD SPECIMENOrdering Facility: [facility] Address: [address] [place] [address] Performed By: #### A LLBG ####[facility]ATORYCLIA [id number] [address] O2 THERAPY VENT=Ventilator Normal [facility] Comment on above: Order Comment: Speci men Type: ARTERIAL BLOOD SPECIMENOrdering Facility: [facility] Address: [address] [place] [address] Performed By: #### A LLBG ####[facility]ATORYCLIA [id number] [address] Oxygen (Bld) [Partial pressure] 92 mm Hg Normal 85-95 [facility] Comment on above: Order Comment: Speci men Type: ARTERIAL BLOOD SPECIMENOrdering Facility: [facility] Address: [address] [place] [address] Performed By: #### A LLBG ####[facility]ATORYCLIA [id number] [address] OF [place] Oxygen adjusted to patient's actual temperature (Bld) [Partial pressure] 91 mmHg Normal 85-95 [facility] Comment on above: Order Comment: Speci men Type: ARTERIAL BLOOD SPECIMENOrdering Facility: [facility] Address: [address] [place] [address] Performed By: #### A LLBG ####[facility]ATORYCLIA [id number] [address] Oxyhemoglobin (BldA) [Mass fraction] 95 % Normal 95-98 [facility] Comment on above: Order Comment: Speci men Type: ARTERIAL BLOOD SPECIMENOrdering Facility: [facility] Address: [address] [place] [address] Performed By: #### A LLBG ####[facility]ATORYCLIA [id number] [address] [place] pH (Bld) 7.40 [pH] Normal 7.35-7.45 [facility] Comment on above: Order Comment: Speci men Type: ARTERIAL BLOOD SPECIMENOrdering Facility: [facility] Address: [address] [place] [address] Performed By: #### A LLBG ####[facility]ATORYCLIA [id number] [address] pH adjusted to patient's actual temperature (Bld) 7.40 Normal 7.35-7.45 [facility] Comment on above: Order Comment: Speci men Type: ARTERIAL BLOOD SPECIMENOrdering Facility: [facility] Address: [address] [place] [address] Performed By: #### A LLBG ####[facility]ATORYCLIA [id number] [address] [place] PO2 / FIO2 RATIO 230 mmHg Low >300 [facility] Comment on above: Order Comment: Speci men Type: ARTERIAL BLOOD SPECIMENOrdering Facility: [facility] Address: [address] [place] [address] Performed By: #### A LLBG ####[facility]ATORYCLIA [id number] [address] [place] Potassium [Moles/Vol] 5.0 mmol/L Normal 3.5-5.0 [facility] Comment on above: Order Comment: Speci men Type: ARTERIAL BLOOD SPECIMENOrdering Facility: [facility] Address: [address] [place] [address] Performed By: #### A LLBG ####[facility]ATORYCLIA [id number] [place] [address] [place] Sodium [Moles/Vol] 136 mmol/L Normal 136-144 [facility] Comment on above: Order Comment: Speci men Type: ARTERIAL BLOOD SPECIMENOrdering Facility: [facility] Address: [address] [place] [address] Performed By: #### A LLBG ####[facility]ORATORYCLIA [id number] [place] [address] [place] Basic metabolic 2000 panelon 06-07-2024 Anion gap [Moles/Vol] 8 mmol/L Normal 8-15 [facility] Comment on above: Order Comment: Speci men Type: BLOOD SPECIMENOrdering Facility: [facility] Address: [address] [place] [address] Performed By: #### 2 4321-2 ####[facility]ATORYCLIA [id number] [place] [address] [place] Calcium [Mass/Vol] 8.6 mg/dL Normal 8.5-10.2 [facility] Comment on above: Order Comment: Speci men Type: BLOOD SPECIMENOrdering Facility: [facility] Address: [address] [place] [address] Performed By: #### 2 4321-2 ####[facility]ATORYCLIA [id number] [place] [address] [place] Chloride [Moles/Vol] 99 mmol/L Normal 98-107 [facility] Comment on above: Order Comment: Speci men Type: BLOOD SPECIMENOrdering Facility: [facility] Address: [address] [place] [address] Performed By: #### 2 4321-2 ####[facility]ATORYCLIA [id number] [place] [address] [place] CO2 [Moles/Vol] 28 mmol/L Normal 22-30 [facility] Comment on above: Order Comment: Speci men Type: BLOOD SPECIMENOrdering Facility: [facility] Address: [address] [place] [address] Performed By: #### 2 4321-2 ####[facility]ORATORYCLIA [id number] [place] [id number] [place] Creatinine [Mass/Vol] 0.93 mg/dL Normal 0.73-1.22 [facility] Comment on above: Order Comment: Lele ying Type: BLOOD SPECIMENOrdering Facility: [facility] Address: [address] [place] [address] Performed By: #### 2 4321-2 ####[facility]ORATORYCLIA [id number] [place] [id number] [facility] Creatinine and Glomerular filtration rate.predicted panel (S/P/Bld) 93 mL/min/1.73m??? Normal >=60 [facility] Comment on above: Order Comment: Lele ying Type: BLOOD SPECIMENOrdering Facility: [facility] Address: [address] [place] [address] Result Comment: Aury mated Glomerular Filtration Rate (eGFR) is calculated using the 2020 CKD-EPI creatinine equation. This equation utilizes serum creatinine, sex, and age as parameters. The creatinine assay has traceable calibration to isotope dilution-mass spectrometry. Refer to KDIGO guidelines for clinical interpretation. In patients with unstable renal function, e.g. those with acute kidney injury, the eGFR may not accurately reflect actual GFR. Performed By: #### 2 4321-2 ####[facility]ATORYCLIA [id number] [place] [id number] [place] Glucose [Mass/Vol] 114 mg/dL High 74-99 [facility] Comment on above: Order Comment: Lele ying Type: BLOOD SPECIMENOrdering Facility: [facility] Address: [address] [place] [address] Result Comment: The [place] [employer] (ADA) provides guidance for cutoff values for fasting glucose and random glucose. The ADA defines fasting as no caloric intake for at least 8 hours. Fasting plasma glucose results between 100 to 125 mg/dL indicate increased risk for diabetes (prediabetes).Fasting plasma glucose results greater than or equal to 126 mg/dL meet the criteria for diagnosis of diabetes. In the absence of unequivocal hyperglycemia, results should be confirmed by repeat testing. In a patient with classic symptoms of hyperglycemia or hyperglycemic crisis, random plasma glucose results greater than or equal to 200 mg/dL meet the criteria for diagnosis of diabetes.Reference: Standards of Medical Care in Diabetes 2016, [place] [employer]. Diabetes Care. 2016.39(Suppl 1). Performed By: #### 2 4321-2 ####[facility]ATORYCLIA [id number] [address] STATES OF [facility] Potassium [Moles/Vol] 5.1 mmol/L Normal 3.7-5.1 [facility] Comment on above: Order Comment: Speci men Type: BLOOD SPECIMENOrdering Facility: [facility] Address: [address] [place] [address] Performed By: #### 2 4321-2 ####[facility]ATORYCLIA [id number] [address] STATES [facility] Sodium [Moles/Vol] 135 mmol/L Low 136-144 [facility] Comment on above: Order Comment: Speci men Type: BLOOD SPECIMENOrdering Facility: [facility] Address: [address] [place] [address] Performed By: #### 2 4321-2 ####[facility]ATORYCLIA [id number] [address] STATES [facility] Urea nitrogen [Mass/Vol] 28 mg/dL High 9-24 [facility] Comment on above: Order Comment: Jeani stepan Type: BLOOD SPECIMENOrdering Facility: [facility] Address: [address] [place] [address] Performed By: #### 2 4321-2 ####[facility]ATORYCLIA [id number] [address] CBC panel Auto (Bld)on 06-07 Erythrocyte distribution width (RBC) [Ratio] 14.2 % Normal 11.5-15.0 [facility] Comment on above: Order Comment: Jeani men Type: BLOOD SPECIMENOrdering Facility: [facility] [facility] Address: [address] [place] [address] Performed By: #### 5 8410-2 ####[facility]ATORYCLIA [id number] [address] Hematocrit (Bld) [Volume fraction] 34.0 % Low 39.0-51.0 [facility] Comment on above: Order Comment: Speci men Type: BLOOD SPECIMENOrdering Facility: [facility] Address: [address] [place] [address] Performed By: #### 5 8410-2 ####[facility]ATORYCLIA [id number] [address] Hemoglobin (Bld) [Mass/Vol] 10.7 g/dL Low 13.0-17.0 [facility] Comment on above: Order Comment: Speci men Type: BLOOD SPECIMENOrdering Facility: [facility] Address: [address] [place] [address] Performed By: #### 5 8410-2 ####[facility]ATORYCLIA [id number] [address] STATES [facility] MCH (RBC) [Entitic mass] 30.3 pg Normal 26.0-34.0 [facility] Comment on above: Order Comment: Speci men Type: BLOOD SPECIMENOrdering Facility: [facility] Address: [address] [place] [address] Performed By: #### 5 8410-2 ####[facility]ATORYCLIA [id number] [address] [place] MCHC (RBC) [Mass/Vol] 31.5 g/dL Normal 30.5-36.0 [facility] Comment on above: Order Comment: Speci men Type: BLOOD SPECIMENOrdering Facility: [facility] Address: [address] [place] [address] Performed By: #### 5 8410-2 ####[facility]ORYCLIA [id number] [address] MCV (RBC) [Entitic vol] 96.3 fL Normal 80.0-100.0 [facility] Comment on above: Order Comment: Speci men Type: BLOOD SPECIMENOrdering Facility: [facility] Address: [address] [place] [address] Performed By: #### 5 8410-2 ####[facility]ATORYCLIA [id number] [address] [place] Nucleated RBC (Bld) [#/Vol] 10*3/uL Normal <0.01 [facility] Comment on above: Order Comment: Speci men Type: BLOOD SPECIMENOrdering Facility: [facility] Address: [address] [place] [address] Performed By: #### 5 8410-2 ####[facility]ATORYCLIA [id number] [address] [place] Platelet mean volume (Bld) [Entitic vol] 9.9 fL Normal 9.0-12.7 [facility] Comment on above: Order Comment: Speci men Type: BLOOD SPECIMENOrdering Facility: [facility] Address: [address] [place] [address] Performed By: #### 5 8410-2 ####[facility]ATORYCLIA [id number] [address] [place] Platelets (Bld) [#/Vol] 211 10*3/uL Normal 150-400 [facility] Comment on above: Order Comment: Speci men Type: BLOOD SPECIMENOrdering Facility: [facility] Address: [address] [place] [address] Performed By: #### 5 8410-2 ####[facility]ORYCLIA [id number] [address] [place] RBC (Bld) [#/Vol] 3.53 10*6/uL Low 4.20-6.00 [facility] Comment on above: Order Comment: Speci men Type: BLOOD SPECIMENOrdering Facility: [facility] Address: [address] [place] [address] Performed By: #### 5 8410-2 ####[facility]ATORYCLIA [id number] [address] OF [place] WBC (Bld) [#/Vol] 14.03 10*3/uL High 3.70-11.00 [facility] Comment on above: Order Comment: Speci men Type: BLOOD SPECIMENOrdering Facility: [facility] Address: [address] [place] [address] Performed By: #### 5 8410-2 ####[facility]ATORYCLIA [id number] [address] STATES OF [facility] XR CHEST 1V FRONTALon 2023 XR CHEST 1V FRONTAL Normal [facility] ARTERIAL BLOOD GASESon 06-06 Base excess Calc (Bld) [Moles/Vol] 1 mmol/L Normal 0-2 [facility] Comment on above: Order Comment: Speci men Type: ARTERIAL BLOOD SPECIMENOrdering Facility: [facility] Address: [address] [place] [address] Performed By: #### A LLBG ####[facility]ATORYCLIA [id number] [address] Body temperature 98.6 [degF] Normal [facility] Comment on above: Order Comment: Speci men Type: ARTERIAL BLOOD SPECIMENOrdering Facility: [facility] Address: [address] [place] [address] Performed By: #### A LLBG ####[facility]ATORYCLIA [id number] [address] Calcium.ionized (BldV) [Mass/Vol] 1.19 mmol/L Normal 1.08-1.30 [facility] Comment on above: Order Comment: Speci men Type: ARTERIAL BLOOD SPECIMENOrdering Facility: [facility] Address: [address] [place] [address] Performed By: #### A LLBG ####[facility]ATORYCLIA [id number] [address] Calcium.ionized adjusted to pH 7.4 (BldA) [Moles/Vol] 1.15 mmol/L Normal 1.08-1.30 [facility] Comment on above: Order Comment: Speci men Type: ARTERIAL BLOOD SPECIMENOrdering Facility: [facility] Address: [address] [place] [address] Performed By: #### A LLBG ####[facility]ORYCLIA [id number] [address] [place] Carboxyhemoglobin (BldA) [Mass fraction] 0.7 % Normal 0.0-2.0 [facility] Comment on above: Order Comment: Speci men Type: ARTERIAL BLOOD SPECIMENOrdering Facility: [facility] Address: [address] [place] [address] Result Comment: Carb oxyhemoglobin Reference Range for Smokers: 2.0-8.0% Performed By: #### A LLBG ####[facility]ATORYCLIA [id number] [address] [place] Chloride [Moles/Vol] 104 mmol/L Normal 102-109 [facility] Comment on above: Order Comment: Speci men Type: ARTERIAL BLOOD SPECIMENOrdering Facility: [facility] Address: [address] [place] [address] Performed By: #### A LLBG ####[facility]ATORYCLIA [id number] [address] [place] CO2 (Bld) [Partial pressure] 54 mm Hg High 36-46 [facility] Comment on above: Order Comment: Speci men Type: ARTERIAL BLOOD SPECIMENOrdering Facility: [facility] Address: [address] [place] [address] Performed By: #### A LLBG ####[facility]ATORYCLIA [id number] [place] [address] [place] Glucose [Mass/Vol] 111 mg/dL High 60-105 [facility] Comment on above: Order Comment: Speci men Type: ARTERIAL BLOOD SPECIMENOrdering Facility: [facility] Address: [address] [place] [address] Performed By: #### A LLBG ####[facility]ATORYCLIA [id number] [place] [address] [place] HCO3 (Bld) [Moles/Vol] 27 mmol/L High 22-26 [facility] Comment on above: Order Comment: Speci men Type: ARTERIAL BLOOD SPECIMENOrdering Facility: [facility] Address: [address] [place] [address] Performed By: #### A LLBG ####[facility]ATORYCLIA [id number] [address] [place] Hematocrit (Bld) [Volume fraction] 34.8 % Low 39.0-51.0 [facility] Comment on above: Order Comment: Speci men Type: ARTERIAL BLOOD SPECIMENOrdering Facility: [facility] Address: [address] [place] [address] Performed By: #### A LLBG ####[facility]ORYCLIA [id number] [address] [place] Hemoglobin (Bld) [Mass/Vol] 11.3 g/dL Low 13.0-17.0 [facility] Comment on above: Order Comment: Speci men Type: ARTERIAL BLOOD SPECIMENOrdering Facility: [facility] Address: [address] [place] [address] Performed By: #### A LLBG ####[facility]ATORYCLIA [id number] [address] [place] Lactate [Moles/Vol] 1.4 mmol/L Normal 0.5-2.2 [facility] Comment on above: Order Comment: Speci men Type: ARTERIAL BLOOD SPECIMENOrdering Facility: [facility] Address: [address] [place] [address] Performed By: #### A LLBG ####[facility]ATORYCLIA [id number] [address] [place] Methemoglobin (Bld) [Mass fraction] 0.8 % Normal 0.0-1.5 [facility] Comment on above: Order Comment: Speci men Type: ARTERIAL BLOOD SPECIMENOrdering Facility: [facility] Address: [address] [place] [address] Performed By: #### A LLBG ####[facility]ATORYCLIA [id number] [address] [place] O2 THERAPY VENT=Ventilator Normal [facility] Comment on above: Order Comment: Speci men Type: ARTERIAL BLOOD SPECIMENOrdering Facility: [facility] Address: [address] [place] [address] Performed By: #### A LLBG ####[facility]ATORYCLIA [id number] [address] [place] Oxygen (Bld) [Partial pressure] 65 mm Hg Low 85-95 [facility] Comment on above: Order Comment: Speci men Type: ARTERIAL BLOOD SPECIMENOrdering Facility: [facility] Address: [address] [place] [address] Performed By: #### A LLBG ####[facility]ATORYCLIA [id number] [address] [place] Oxyhemoglobin (BldA) [Mass fraction] 89 % Low 95-98 [facility] Comment on above: Order Comment: Speci men Type: ARTERIAL BLOOD SPECIMENOrdering Facility: [facility] Address: [address] [place] [address] Performed By: #### A LLBG ####[facility]ATORYCLIA [id number] [place] [address] [place] pH (Bld) 7.33 [pH] Low 7.35-7.45 [facility] Comment on above: Order Comment: Speci men Type: ARTERIAL BLOOD SPECIMENOrdering Facility: [facility] Address: [address] [place] [address] Performed By: #### A LLBG ####[facility]ATORYCLIA [id number] [place] [address] [place] Potassium [Moles/Vol] 4.9 mmol/L Normal 3.5-5.0 [facility] Comment on above: Order Comment: Speci men Type: ARTERIAL BLOOD SPECIMENOrdering Facility: [facility] Address: [address] [place] [address] Performed By: #### A LLBG ####[facility]ATORYCLIA [id number] [address] STATES OF [facility] Sodium [Moles/Vol] 132 mmol/L Low 136-144 [facility] Comment on above: Order Comment: Speci men Type: ARTERIAL BLOOD SPECIMENOrdering Facility: [facility] Address: [address] [place] [address] Performed By: #### A LLBG ####[facility]ATORYCLIA [id number] [address] [place] Base excess Calc (Bld) [Moles/Vol] 0 mmol/L Normal 0-2 [facility] Comment on above: Order Comment: Speci men Type: ARTERIAL BLOOD SPECIMENOrdering Facility: [facility] Address: [address] [place] [address] Performed By: #### A LLBG ####[facility]ATORYCLIA [id number] [address] Body temperature 98.42 [degF] Normal [facility] Comment on above: Order Comment: Speci men Type: ARTERIAL BLOOD SPECIMENOrdering Facility: [facility] Address: [address] [place] [address] Performed By: #### A LLBG ####[facility]ATORYCLIA [id number] [address] Calcium.ionized (BldV) [Mass/Vol] 1.18 mmol/L Normal 1.08-1.30 [facility] Comment on above: Order Comment: Speci men Type: ARTERIAL BLOOD SPECIMENOrdering Facility: [facility] Address: [address] [place] [address] Performed By: #### A LLBG ####[facility]ATORYCLIA [id number] [address] Calcium.ionized adjusted to pH 7.4 (BldA) [Moles/Vol] 1.10 mmol/L Normal 1.08-1.30 [facility] Comment on above: Order Comment: Speci men Type: ARTERIAL BLOOD SPECIMENOrdering Facility: [facility] Address: [address] [place] [address] Performed By: #### A LLBG ####[facility]ATORYCLIA [id number] [address] [place] Carboxyhemoglobin (BldA) [Mass fraction] 0.9 % Normal 0.0-2.0 [facility] Comment on above: Order Comment: Speci men Type: ARTERIAL BLOOD SPECIMENOrdering Facility: [facility] Address: [address] [place] [address] Result Comment: Carb oxyhemoglobin Reference Range for Smokers: 2.0-8.0% Performed By: #### A LLBG ####[facility]ATORYCLIA [id number] [address] OF [place] Chloride [Moles/Vol] 105 mmol/L Normal 102-109 [facility] Comment on above: Order Comment: Speci men Type: ARTERIAL BLOOD SPECIMENOrdering Facility: [facility] Address: [address] [place] [address] Performed By: #### A LLBG ####[facility]ATORYCLIA [id number] [address] [place] CO2 (Bld) [Partial pressure] 59 mm Hg High [address] Comment on above: Order Comment: Speci men Type: ARTERIAL BLOOD SPECIMENOrdering Facility: [facility] Address: [address] [place] [address] Performed By: #### A LLBG ####[facility]ATORYCLIA [id number] [address] [place] CO2 adjusted to patient's actual temperature (Bld) [Partial pressure] 59 mmHg High 3646 [facility] Comment on above: Order Comment: Speci men Type: ARTERIAL BLOOD SPECIMENOrdering Facility: [facility] Address: [address] [place] [address] Performed By: #### A LLBG ####[facility]ATORYCLIA [id number] [address] [place] FIO2 40 % Normal [facility] Comment on above: Order Comment: Speci men Type: ARTERIAL BLOOD SPECIMENOrdering Facility: [facility] Address: [address] [place] [address] Performed By: #### A LLBG ####[facility]ATORYCLIA [id number] [address] [place] Glucose [Mass/Vol] 124 mg/dL High 60-105 [facility] Comment on above: Order Comment: Speci men Type: ARTERIAL BLOOD SPECIMENOrdering Facility: [facility] Address: [address] [place] [address] Performed By: #### A LLBG ####[facility]ATORYCLIA [id number] [place] [address] [place] HCO3 (Bld) [Moles/Vol] 27 mmol/L High 22-26 [facility] Comment on above: Order Comment: Speci men Type: ARTERIAL BLOOD SPECIMENOrdering Facility: [facility] Address: [address] [place] [address] Performed By: #### A LLBG ####[facility]ATORYCLIA [id number] [address] [place] Hematocrit (Bld) [Volume fraction] 37.3 % Low 39.0-51.0 [facility] Comment on above: Order Comment: Speci men Type: ARTERIAL BLOOD SPECIMENOrdering Facility: [facility] Address: [address] [place] [address] Performed By: #### A LLBG ####[facility]ORYCLIA [id number] [place] [address] [place] Hemoglobin (Bld) [Mass/Vol] 12.1 g/dL Low 13.0-17.0 [facility] Comment on above: Order Comment: Speci men Type: ARTERIAL BLOOD SPECIMENOrdering Facility: [facility] Address: [address] [place] [address] Performed By: #### A LLBG ####[facility]ATORYCLIA [id number] [place] [address] [place] INHALED TIDAL VOLUME (ML) 400 Normal [facility] Comment on above: Order Comment: Speci men Type: ARTERIAL BLOOD SPECIMENOrdering Facility: [facility] Address: [address] [place] [address] Performed By: #### A LLBG ####[facility]ORYCLIA [id number] [address] [place] Lactate [Moles/Vol] 1.5 mmol/L Normal 0.5-2.2 [facility] Comment on above: Order Comment: Speci men Type: ARTERIAL BLOOD SPECIMENOrdering Facility: [facility] Address: [address] [place] [address] Performed By: #### A LLBG ####[facility]ORYCLIA [id number] [address] Methemoglobin (Bld) [Mass fraction] 0.6 % Normal 0.0-1.5 [facility] Comment on above: Order Comment: Speci men Type: ARTERIAL BLOOD SPECIMENOrdering Facility: [facility] Address: [address] [place] [address] Performed By: #### A LLBG ####[facility]ORYCL[facility] [id number] [address] O2 THERAPY VENT=Ventilator Normal [facility] Comment on above: Order Comment: Speci men Type: ARTERIAL BLOOD SPECIMENOrdering Facility: [facility] Address: [address] [place] [address] Performed By: #### A LLBG ####[facility]ORYCLIA [id number] [address] OF [place] Oxygen (Bld) [Partial pressure] 62 mm Hg Low 85-95 [facility] Comment on above: Order Comment: Speci men Type: ARTERIAL BLOOD SPECIMENOrdering Facility: [facility] Address: [address] [place] [address] Performed By: #### A LLBG ####[facility]ORYCLIA [id number] [address] [place] Oxygen adjusted to patient's actual temperature (Bld) [Partial pressure] 62 mmHg Low 85-95 [facility] Comment on above: Order Comment: Speci men Type: ARTERIAL BLOOD SPECIMENOrdering Facility: [facility] Address: [address] [place] [address] Performed By: #### A LLBG ####[facility]ORYCLIA [id number] [address] [place] Oxyhemoglobin (BldA) [Mass fraction] 87 % Low 95-98 [facility] Comment on above: Order Comment: Speci men Type: ARTERIAL BLOOD SPECIMENOrdering Facility: [facility] Address: [address] [place] [address] Performed By: #### A LLBG ####[facility]ORYCLIA [id number] [address] [place] PEEP/CPAP 5 cmH2O Normal [facility] Comment on above: Order Comment: Speci men Type: ARTERIAL BLOOD SPECIMENOrdering Facility: [facility] Address: [address] [place] [address] Performed By: #### A LLBG ####[facility]ATORYCLIA [id number] [place] [address] [place] pH (Bld) 7.28 [pH] Low 7.35-7.45 [facility] Comment on above: Order Comment: Speci men Type: ARTERIAL BLOOD SPECIMENOrdering Facility: [facility] Address: [address] [place] [address] Performed By: #### A LLBG ####[facility]ATORYCLIA [id number] [address] [place] pH adjusted to patient's actual temperature (Bld) 7.29 Low 7.35-7.45 [facility] Comment on above: Order Comment: Speci men Type: ARTERIAL BLOOD SPECIMENOrdering Facility: [facility] Address: [address] [place] [address] Performed By: #### A LLBG ####[facility]ORYCLIA [id number] [address] [place] PO2 / FIO2 RATIO 155 mmHg Low >300 [facility] Comment on above: Order Comment: Speci men Type: ARTERIAL BLOOD SPECIMENOrdering Facility: [facility] Address: [address] [place] [address] Performed By: #### A LLBG ####[facility]ORATORYCLIA [id number] [address] Potassium [Moles/Vol] 5.0 mmol/L Normal 3.5-5.0 [facility] Comment on above: Order Comment: Speci men Type: ARTERIAL BLOOD SPECIMENOrdering Facility: [facility] Address: [address] [place] [address] Performed By: #### A LLBG ####[facility]ORYCLIA [id number] [address] SET VENTILATOR RESPIRATORY RATE (BPM) 24 BPM Normal [facility] Comment on above: Order Comment: Speci men Type: ARTERIAL BLOOD SPECIMENOrdering Facility: [facility] Address: [address] [place] [address] Performed By: #### A LLBG ####[facility]ORATORYCLIA [id number] [address] [place] Sodium [Moles/Vol] 130 mmol/L Low 136-144 [facility] Comment on above: Order Comment: Speci men Type: ARTERIAL BLOOD SPECIMENOrdering Facility: [facility] Address: [address] [place] [address] Performed By: #### A LLBG ####[facility]ORYCLIA [id number] [address] OF [place] Basic metabolic 2000 panelon 06-06-2024 Anion gap [Moles/Vol] 7 mmol/L Low 8-15 [facility] Comment on above: Order Comment: Speci men Type: BLOOD SPECIMENOrdering Facility: [facility] Address: [address] [place] [address] Performed By: #### 2 4321-2 ####[facility]ORYCLIA [id number] [address] [place] Calcium [Mass/Vol] 8.4 mg/dL Low 8.5-10.2 [facility] Comment on above: Order Comment: Speci men Type: BLOOD SPECIMENOrdering Facility: [facility] Address: [facility] [place] [address] Performed By: #### 2 4321-2 ####[facility]ORYCLIA [id number] [address] [place] Chloride [Moles/Vol] 102 mmol/L Normal 98-107 [facility] Comment on above: Order Comment: Speci men Type: BLOOD SPECIMENOrdering Facility: [facility] Address: [address] [place] [address] Performed By: #### 2 4321-2 ####[facility]ORYCLIA [id number] [address] OF [place] CO2 [Moles/Vol] 25 mmol/L Normal 22-30 [facility] Comment on above: Order Comment: Speci men Type: BLOOD SPECIMENOrdering Facility: [facility] Address: [address] [place] [address] Performed By: #### 2 4321-2 ####[facility]ORYCLIA [id number] [address] [place] Creatinine [Mass/Vol] 0.99 mg/dL Normal 0.73-1.22 [facility] Comment on above: Order Comment: Speci men Type: BLOOD SPECIMENOrdering Facility: [facility] Address: [address] [place] [address] Performed By: #### 2 4321-2 ####[facility]ORYCLIA [id number] [address] Creatinine and Glomerular filtration rate.predicted panel (S/P/Bld) 86 mL/min/1.73m??? Normal >=60 [facility] Comment on above: Order Comment: Speci men Type: BLOOD SPECIMENOrdering Facility: [facility] Address: [address] [place] [address] Result Comment: Aury mated Glomerular Filtration Rate (eGFR) is calculated using the 2020 CKD-EPI creatinine equation. This equation utilizes serum creatinine, sex, and age as parameters. The creatinine assay has traceable calibration to isotope dilution-mass spectrometry. Refer to KDIGO guidelines for clinical interpretation. In patients with unstable renal function, e.g. those with acute kidney injury, the eGFR may not accurately reflect actual GFR. Performed By: #### 2 4321-2 ####[facility]ATORYCLIA [id number] [place] [address] [place] Glucose [Mass/Vol] 112 mg/dL High 74-99 [facility] Comment on above: Order Comment: Speci men Type: BLOOD SPECIMENOrdering Facility: [facility] Address: [address] [place] [address] Result Comment: The [place] [employer] (ADA) provides guidance for cutoff values for fasting glucose and random glucose. The ADA defines fasting as no caloric intake for at least 8 hours. Fasting plasma glucose results between 100 to 125 mg/dL indicate increased risk for diabetes (prediabetes).Fasting plasma glucose results greater than or equal to 126 mg/dL meet the criteria for diagnosis of diabetes. In the absence of unequivocal hyperglycemia, results should be confirmed by repeat testing. In a patient with classic symptoms of hyperglycemia or hyperglycemic crisis, random plasma glucose results greater than or equal to 200 mg/dL meet the criteria for diagnosis of diabetes.Reference: Standards of Medical Care in Diabetes 2016, [place] [employer]. Diabetes Care. 2016.39(Suppl 1). Performed By: #### 2 4321-2 ####[facility]ORYCLIA [id number] [place] [address] [place] Potassium [Moles/Vol] 5.1 mmol/L Normal 3.7-5.1 [facility] Comment on above: Order Comment: Speci men Type: BLOOD SPECIMENOrdering Facility: [facility] Address: [address] [id number] Performed By: #### 2 4321-2 ####[facility]ATORYCLIA [id number] [place] [address] [place] Sodium [Moles/Vol] 134 mmol/L Low 136-144 [facility] Comment on above: Order Comment: Speci men Type: BLOOD SPECIMENOrdering Facility: [facility] Address: [address] [place] [address] Performed By: #### 2 4321-2 ####[facility]ORY[facility]IA [id number] [place] [address] [place] Urea nitrogen [Mass/Vol] 26 mg/dL High 9-24 [facility] Comment on above: Order Comment: Speci men Type: BLOOD SPECIMENOrdering Facility: [facility] Address: [address] [place] [address] Performed By: #### 2 4321-2 ####[facility]ATORYCLIA [id number] [place] [address] [place] Anion gap [Moles/Vol] 10 mmol/L Normal 8-15 [facility] Comment on above: Order Comment: Speci men Type: BLOOD SPECIMENOrdering Facility: [facility] Address: [address] [place] [address] Performed By: #### 2 4321-2 ####[facility]ORYCLIA [id number] [place] [address] [place] Calcium [Mass/Vol] 8.6 mg/dL Normal 8.5-10.2 [facility] Comment on above: Order Comment: Speci men Type: BLOOD SPECIMENOrdering Facility: [facility] Address: [address] [place] [address] Performed By: #### 2 4321-2 ####[facility]ORYCLIA [id number] [place] [address] [place] Chloride [Moles/Vol] 99 mmol/L Normal 98-107 [facility] Comment on above: Order Comment: Speci men Type: BLOOD SPECIMENOrdering Facility: [facility] Address: [address] [place] [address] Performed By: #### 2 4321-2 ####[facility]ORYCLIA [id number] [place] [address] [place] CO2 [Moles/Vol] 24 mmol/L Normal 22-30 [facility] Comment on above: Order Comment: Speci men Type: BLOOD SPECIMENOrdering Facility: [facility] Address: [address] [place] [address] Performed By: #### 2 4321-2 ####[facility] COUNTYCLIA [id number] [address] STATES [facility] Creatinine [Mass/Vol] 1.00 mg/dL Normal 0.73-1.22 [facility] Comment on above: Order Comment: Speci men Type: BLOOD SPECIMENOrdering Facility: [facility] Address: [address] [place] [address] Performed By: #### 2 4321-2 ####[facility]ATORYCLIA [id number] [address] Creatinine and Glomerular filtration rate.predicted panel (S/P/Bld) 85 mL/min/1.73m??? Normal >=60 [facility] Comment on above: Order Comment: Speci men Type: BLOOD SPECIMENOrdering Facility: [facility] Address: [address] [place] [address] Result Comment: Aury mated Glomerular Filtration Rate (eGFR) is calculated using the 2020 CKD-EPI creatinine equation. This equation utilizes serum creatinine, sex, and age as parameters. The creatinine assay has traceable calibration to isotope dilution-mass spectrometry. Refer to KDIGO guidelines for clinical interpretation. In patients with unstable renal function, e.g. those with acute kidney injury, the eGFR may not accurately reflect actual GFR. Performed By: #### 2 4321-2 ####[facility]ORYCLIA [id number] [address] STATES OF [facility] Glucose [Mass/Vol] 121 mg/dL High 74-99 [facility] Comment on above: Order Comment: Speci stepan Type: BLOOD SPECIMENOrdering Facility: [facility] Address: [address] [place] [address] Result Comment: The [place] Diabetes Association (ADA) provides guidance for cutoff values for fasting glucose and random glucose. The ADA defines fasting as no caloric intake for at least 8 hours. Fasting plasma glucose results between 100 to 125 mg/dL indicate increased risk for diabetes (prediabetes).Fasting plasma glucose results greater than or equal to 126 mg/dL meet the criteria for diagnosis of diabetes. In the absence of unequivocal hyperglycemia, results should be confirmed by repeat testing. In a patient with classic symptoms of hyperglycemia or hyperglycemic crisis, random plasma glucose results greater than or equal to 200 mg/dL meet the criteria for diagnosis of diabetes.Reference: Standards of Medical Care in Diabetes 2016, [place] [employer]. Diabetes Care. 2016.39(Suppl 1). Performed By: #### 2 4321-2 ####[facility]ORYCLIA [id number] [address] Potassium [Moles/Vol] 5.4 mmol/L High 3.7-5.1 [facility] Comment on above: Order Comment: Lele ying Type: BLOOD SPECIMENOrdering Facility: [facility] Address: [address] [place] [address] Performed By: #### 2 4321-2 ####[facility]ORYCLIA [id number] [address] Sodium [Moles/Vol] 133 mmol/L Low 136-144 [facility] Comment on above: Order Comment: Lele ying Type: BLOOD SPECIMENOrdering Facility: [facility] Address: [address] [place] [address] Performed By: #### 2 4321-2 ####[facility]ORYCLIA [id number] [address] Urea nitrogen [Mass/Vol] 26 mg/dL High 9-24 [facility] Comment on above: Order Comment: Lele ying Type: BLOOD SPECIMENOrdering Facility: [facility] Address: [address] [place] [address] Performed By: #### 2 4321-2 ####[facility]ORYCLIA [id number] [address] CBC panel Auto (Bld)on 06-06 Erythrocyte distribution width (RBC) [Ratio] 13.6 % Normal 11.5-15.0 [facility] Comment on above: Order Comment: Lele ying Type: BLOOD SPECIMENOrdering Facility: [facility] Address: [address] [place] [address] Performed By: #### 5 8410-2 ####[facility]ORYCLIA [id number] [address] Hematocrit (Bld) [Volume fraction] 34.8 % Low 39.0-51.0 [facility] Comment on above: Order Comment: Speci men Type: BLOOD SPECIMENOrdering Facility: [facility] Address: [address] [place] [address] Performed By: #### 5 8410-2 ####[facility]ATORYCLIA [id number] [address] OF [facility] Hemoglobin (Bld) [Mass/Vol] 11.2 g/dL Low 13.0-17.0 [facility] Comment on above: Order Comment: Speci men Type: BLOOD SPECIMENOrdering Facility: [facility] Address: [address] [place] [address] Performed By: #### 5 8410-2 ####[facility]ORYCLIA [id number] [address] STATES OF [facility] MCH (RBC) [Entitic mass] 30.0 pg Normal 26.0-34.0 [facility] Comment on above: Order Comment: Speci men Type: BLOOD SPECIMENOrdering Facility: [facility] Address: [address] [place] [address] Performed By: #### 5 8410-2 ####[facility]ORYCLIA [id number] [address] [place] MCHC (RBC) [Mass/Vol] 32.2 g/dL Normal 30.5-36.0 [facility] Comment on above: Order Comment: Speci men Type: BLOOD SPECIMENOrdering Facility: [facility] Address: [address] [place] [address] Performed By: #### 5 8410-2 ####[facility]ATORYCLIA [id number] [address] MCV (RBC) [Entitic vol] 93.3 fL Normal 80.0-100.0 [facility] Comment on above: Order Comment: Speci men Type: BLOOD SPECIMENOrdering Facility: [facility] Address: [address] [place] [address] Performed By: #### 5 8410-2 ####[facility]ORYCLIA [id number] [address] [place] Nucleated RBC (Bld) [#/Vol] 10*3/uL Normal <0.01 [facility] Comment on above: Order Comment: Speci men Type: BLOOD SPECIMENOrdering Facility: [facility] Address: [address] [place] [address] Performed By: #### 5 8410-2 ####[facility]ORYCLIA [id number] [address] [place] Platelet mean volume (Bld) [Entitic vol] 9.7 fL Normal 9.0-12.7 [facility] Comment on above: Order Comment: Speci men Type: BLOOD SPECIMENOrdering Facility: [facility] Address: [address] [place] [address] Performed By: #### 5 8410-2 ####[facility]ORYCLIA [id number] [address] [place] Platelets (Bld) [#/Vol] 216 10*3/uL Normal 150-400 [facility] Comment on above: Order Comment: Speci men Type: BLOOD SPECIMENOrdering Facility: [facility] Address: [address] [place] [address] Performed By: #### 5 8410-2 ####[facility]ORYCLIA [id number] [place] [address] [place] RBC (Bld) [#/Vol] 3.73 10*6/uL Low 4.20-6.00 [facility] Comment on above: Order Comment: Speci men Type: BLOOD SPECIMENOrdering Facility: [facility] Address: [address] [place] [address] Performed By: #### 5 8410-2 ####[facility]ORYCLIA [id number] [place] [address] [place] WBC (Bld) [#/Vol] 20.61 10*3/uL High 3.70-11.00 [facility] Comment on above: Order Comment: Speci men Type: BLOOD SPECIMENOrdering Facility: [facility] Address: [address] [place] [address] Performed By: #### 5 8410-2 ####[facility]ATORYCLIA [id number] [address] [id number] [place] Respiratory Cultureon 2023 RESPC Mixed normal respira tory chente. No Haemophilus, Streptococcus pneumoniae, beta-hemolytic Streptococcus or Staphylococcus aureus isolated. Normal [facility] Comment on above: Performed By: #### M 100.2000, M100.2400 ####[facility] [id number] [place], [place], [address] XR CHEST 1V FRONTALon 2023 XR CHEST 1V FRONTAL Normal [facility] XR CHEST 1V FRONTAL PORTon 1 XR CHEST 1V FRONTAL PORT Normal [facility] ALLIED HEALTHon 06-05-2024 ALLIED HEALTH Normal [facility] ALLIED HEALTH Normal [facility] ARTERIAL BLOOD GASESon 06-05 Base excess Calc (Bld) [Moles/Vol] 0 mmol/L Normal 0-2 [facility] Comment on above: Order Comment: Speci men Type: ARTERIAL BLOOD SPECIMENOrdering Facility: [facility] Address: [address] [place] [address] Performed By: #### A LLBG ####[facility]ORYCLIA [id number] [address] [id number] [place] [facility] Body temperature 98.42 [degF] Normal [facility] Comment on above: Order Comment: Speci men Type: ARTERIAL BLOOD SPECIMENOrdering Facility: [facility] Address: [address] [place] [address] Performed By: #### A LLBG ####[facility]ORYCLIA [id number] [address] STATES [place] [facility] Calcium.ionized (BldV) [Mass/Vol] 1.15 mmol/L Normal 1.08-1.30 [facility] Comment on above: Order Comment: Speci men Type: ARTERIAL BLOOD SPECIMENOrdering Facility: [facility] Address: [address] [place] [address] Performed By: #### A LLBG ####[facility]ORYCLIA [id number] [address] OF [facility] Calcium.ionized adjusted to pH 7.4 (BldA) [Moles/Vol] 1.12 mmol/L Normal 1.08-1.30 [facility] Comment on above: Order Comment: Speci men Type: ARTERIAL BLOOD SPECIMENOrdering Facility: [facility] Address: [address] [place] [address] Performed By: #### A LLBG ####[facility]ATORYCLIA [id number] [address] OF [facility] Carboxyhemoglobin (BldA) [Mass fraction] 0.4 % Normal 0.0-2.0 [facility] Comment on above: Order Comment: Speci men Type: ARTERIAL BLOOD SPECIMENOrdering Facility: [facility] Address: [address] [place] [address] Result Comment: Carb oxyhemoglobin Reference Range for Smokers: 2.0-8.0% Performed By: #### A LLBG ####[facility]ORYCLIA [id number] [address] [place] Chloride [Moles/Vol] 104 mmol/L Normal 102-109 [facility] Comment on above: Order Comment: Speci men Type: ARTERIAL BLOOD SPECIMENOrdering Facility: [facility] Address: [address] [place] [address] Performed By: #### A LLBG ####[facility]ORYCLIA [id number] [address] [place] CO2 (Bld) [Partial pressure] 49 mm Hg High 36-46 [facility] Comment on above: Order Comment: Speci men Type: ARTERIAL BLOOD SPECIMENOrdering Facility: [facility] Address: [address] [place] [address] Performed By: #### A LLBG ####[facility]ATORYCLIA [id number] [address] CO2 adjusted to patient's actual temperature (Bld) [Partial pressure] 49 mmHg High 36-46 [facility] Comment on above: Order Comment: Speci men Type: ARTERIAL BLOOD SPECIMENOrdering Facility: [facility] Address: [address] [place] [address] Performed By: #### A LLBG ####[facility]ORYCLIA [id number] [address] Glucose [Mass/Vol] 154 mg/dL High 60-105 [facility] Comment on above: Order Comment: Speci men Type: ARTERIAL BLOOD SPECIMENOrdering Facility: [facility] Address: [address] [place] [address] Performed By: #### A LLBG ####[facility]ORYCLIA [id number] [address] OF [place] HCO3 (Bld) [Moles/Vol] 26 mmol/L Normal 22-26 [facility] Comment on above: Order Comment: Speci men Type: ARTERIAL BLOOD SPECIMENOrdering Facility: [facility] Address: [address] [place] [address] Performed By: #### A LLBG ####[facility]ORYCLIA [id number] [address] [place] Hematocrit (Bld) [Volume fraction] 35.8 % Low 39.0-51.0 [facility] Comment on above: Order Comment: Speci men Type: ARTERIAL BLOOD SPECIMENOrdering Facility: [facility] Address: [address] [place] [address] Performed By: #### A LLBG ####[facility]ORYCLIA [id number] [address] [place] Hemoglobin (Bld) [Mass/Vol] 11.6 g/dL Low 13.0-17.0 [facility] Comment on above: Order Comment: Speci men Type: ARTERIAL BLOOD SPECIMENOrdering Facility: [facility] Address: [address] [place] [address] Performed By: #### A LLBG ####[facility]ATORYCLIA [id number] [address] STATES OF [facility] Lactate [Moles/Vol] 1.5 mmol/L Normal 0.5-2.2 [facility] Comment on above: Order Comment: Speci men Type: ARTERIAL BLOOD SPECIMENOrdering Facility: [facility] Address: [address] [place] [address] Performed By: #### A LLBG ####[facility]ORYCLIA [id number] [address] Methemoglobin (Bld) [Mass fraction] 0.7 % Normal 0.0-1.5 [facility] Comment on above: Order Comment: Speci men Type: ARTERIAL BLOOD SPECIMENOrdering Facility: [facility] Address: [address] [place] [address] Performed By: #### A LLBG ####[facility]ORYCLIA [id number] [address] O2 THERAPY VENT=Ventilator Normal [facility] Comment on above: Order Comment: Speci men Type: ARTERIAL BLOOD SPECIMENOrdering Facility: [facility] Address: [address] [place] [address] Performed By: #### A LLBG ####[facility]ORYCLIA [id number] [address] Oxygen (Bld) [Partial pressure] 82 mm Hg Low 85-95 [facility] Comment on above: Order Comment: Speci men Type: ARTERIAL BLOOD SPECIMENOrdering Facility: [facility] Address: [address] [place] [address] Performed By: #### A LLBG ####[facility]ORYCLIA [id number] [address] Oxygen adjusted to patient's actual temperature (Bld) [Partial pressure] 82 mmHg Low 85-95 [facility] Comment on above: Order Comment: Speci men Type: ARTERIAL BLOOD SPECIMENOrdering Facility: [facility] Address: [address] [place] [address] Performed By: #### A LLBG ####[facility]ORYCLIA [id number] [address] [place] Oxyhemoglobin (BldA) [Mass fraction] 94 % Low 95-98 [facility] Comment on above: Order Comment: Speci men Type: ARTERIAL BLOOD SPECIMENOrdering Facility: [facility] Address: [address] [place] [address] Performed By: #### A LLBG ####[facility]ORYCLIA [id number] [place] [address] [place] pH (Bld) 7.34 [pH] Low 7.35-7.45 [facility] Comment on above: Order Comment: Speci men Type: ARTERIAL BLOOD SPECIMENOrdering Facility: [facility] Address: [address] [place] [address] Performed By: #### A LLBG ####[facility]ORYCLIA [id number] [address] [place] pH adjusted to patient's actual temperature (Bld) 7.34 Low 7.35-7.45 [facility] Comment on above: Order Comment: Speci men Type: ARTERIAL BLOOD SPECIMENOrdering Facility: [facility] Address: [address] [place] [address] Performed By: #### A LLBG ####[facility]ORYCLIA [id number] [place] [address] [place] Potassium [Moles/Vol] 4.8 mmol/L Normal 3.5-5.0 [facility] Comment on above: Order Comment: Speci men Type: ARTERIAL BLOOD SPECIMENOrdering Facility: [facility] Address: [address] [place] [address] Performed By: #### A LLBG ####[facility]ORYCLIA [id number] [address] [place] Sodium [Moles/Vol] 131 mmol/L Low 136-144 [facility] Comment on above: Order Comment: Speci men Type: ARTERIAL BLOOD SPECIMENOrdering Facility: [facility] Address: [address] [place] [address] Performed By: #### A LLBG ####[facility]ORYCLIA [id number] [address] [place] Base deficit (BldA) [Moles/Vol] -1 mmol/L Normal -2-0 [facility] Comment on above: Order Comment: Speci men Type: ARTERIAL BLOOD SPECIMENOrdering Facility: [facility] Address: [address] [place] [address] Performed By: #### A LLBG ####[facility]ORYCLIA [id number] [address] [place] Body temperature 98.96 [degF] Normal [facility] Comment on above: Order Comment: Speci men Type: ARTERIAL BLOOD SPECIMENOrdering Facility: [facility] Address: [address] [place] [address] Performed By: #### A LLBG ####[facility]ORYCLIA [id number] [address] [place] Calcium.ionized (BldV) [Mass/Vol] 1.15 mmol/L Normal 1.08-1.30 [facility] Comment on above: Order Comment: Speci men Type: ARTERIAL BLOOD SPECIMENOrdering Facility: [facility] Address: [address] [place] [address] Performed By: #### A LLBG ####[facility]ORYCLIA [id number] [address] [place] Calcium.ionized adjusted to pH 7.4 (BldA) [Moles/Vol] 1.12 mmol/L Normal 1.08-1.30 [facility] Comment on above: Order Comment: Speci men Type: ARTERIAL BLOOD SPECIMENOrdering Facility: [facility] Address: [address] [place] [address] Performed By: #### A LLBG ####[facility]ORYCLIA [id number] [address] [place] Carboxyhemoglobin (BldA) [Mass fraction] 1.0 % Normal 0.0-2.0 [facility] Comment on above: Order Comment: Speci men Type: ARTERIAL BLOOD SPECIMENOrdering Facility: [facility] Address: [address] [place] [address] Result Comment: Carb oxyhemoglobin Reference Range for Smokers: 2.0-8.0% Performed By: #### A LLBG ####[facility]ORYCLIA [id number] [address] [place] Chloride [Moles/Vol] 104 mmol/L Normal 102-109 [facility] Comment on above: Order Comment: Speci men Type: ARTERIAL BLOOD SPECIMENOrdering Facility: [facility] Address: [address] [place] [address] Performed By: #### A LLBG ####[facility]ORYCLIA [id number] [address] [place] CO2 (Bld) [Partial pressure] 47 mm Hg High 36-46 [facility] Comment on above: Order Comment: Speci men Type: ARTERIAL BLOOD SPECIMENOrdering Facility: [facility] Address: [address] [place] [address] Performed By: #### A LLBG ####[facility]ORYCLIA [id number] [address] [place] CO2 adjusted to patient's actual temperature (Bld) [Partial pressure] 48 mmHg High 36-46 [facility] Comment on above: Order Comment: Speci men Type: ARTERIAL BLOOD SPECIMENOrdering Facility: [facility] Address: [address] [place] [address] Performed By: #### A LLBG ####[facility]ORYCLIA [id number] [place] [address] [place] FIO2 45 % Normal [facility] Comment on above: Order Comment: Speci men Type: ARTERIAL BLOOD SPECIMENOrdering Facility: [facility] Address: [address] [place] [address] Performed By: #### A LLBG ####[facility]ORYCLIA [id number] [address] [place] Glucose [Mass/Vol] 186 mg/dL High 60-105 [facility] Comment on above: Order Comment: Speci men Type: ARTERIAL BLOOD SPECIMENOrdering Facility: [facility] Address: [address] [place] [address] Performed By: #### A LLBG ####[facility]ORYCLIA [id number] [place] [address] [place] HCO3 (Bld) [Moles/Vol] 25 mmol/L Normal 22-26 [facility] Comment on above: Order Comment: Speci men Type: ARTERIAL BLOOD SPECIMENOrdering Facility: [facility] Address: [address] [place] [address] Performed By: #### A LLBG ####[facility]ORYCLIA [id number] [address] [place] Hematocrit (Bld) [Volume fraction] 36.6 % Low 39.0-51.0 [facility] Comment on above: Order Comment: Speci men Type: ARTERIAL BLOOD SPECIMENOrdering Facility: [facility] Address: [address] [place] [address] Performed By: #### A LLBG ####[facility]ORYCLIA [id number] [address] [place] Hemoglobin (Bld) [Mass/Vol] 11.9 g/dL Low 13.0-17.0 [facility] Comment on above: Order Comment: Speci men Type: ARTERIAL BLOOD SPECIMENOrdering Facility: [facility] Address: [address] [place], [place] [address] Performed By: #### A LLBG ####[facility]ORATORYCLIA [id number] [place] [address] [place] INHALED TIDAL VOLUME (ML) 400 Normal [facility] Comment on above: Order Comment: Speci men Type: ARTERIAL BLOOD SPECIMENOrdering Facility: [facility] Address: [address] [place] [address] Performed By: #### A LLBG ####[facility]ORYCLIA [id number] [address] STATES OF [facility] Lactate [Moles/Vol] 1.6 mmol/L Normal 0.5-2.2 [facility] Comment on above: Order Comment: Speci men Type: ARTERIAL BLOOD SPECIMENOrdering Facility: [facility] Address: [address] [place] [address] Performed By: #### A LLBG ####[facility]ORYCLIA [id number] [address] OF [facility] Methemoglobin (Bld) [Mass fraction] 0.7 % Normal 0.0-1.5 [facility] Comment on above: Order Comment: Speci men Type: ARTERIAL BLOOD SPECIMENOrdering Facility: [facility] Address: [address] [place] [address] Performed By: #### A LLBG ####[facility]ORYCLIA [id number] [address] O2 THERAPY VENT=Ventilator Normal [facility] Comment on above: Order Comment: Speci men Type: ARTERIAL BLOOD SPECIMENOrdering Facility: [facility] Address: [address] [place] [address] Performed By: #### A LLBG ####[facility]ORYCLIA [id number] [address] [place] Oxygen (Bld) [Partial pressure] 75 mm Hg Low 85-95 [facility] Comment on above: Order Comment: Speci men Type: ARTERIAL BLOOD SPECIMENOrdering Facility: [facility] Address: [address] [place] [address] Performed By: #### A LLBG ####[facility]ORYCLIA [id number] [address] Oxygen adjusted to patient's actual temperature (Bld) [Partial pressure] 75 mmHg Low 85-95 [facility] Comment on above: Order Comment: Speci men Type: ARTERIAL BLOOD SPECIMENOrdering Facility: [facility] Address: [address] [place] [address] Performed By: #### A LLBG ####[facility]ORYCLIA [id number] [address] Oxyhemoglobin (BldA) [Mass fraction] 92 % Low 95-98 [facility] Comment on above: Order Comment: Speci men Type: ARTERIAL BLOOD SPECIMENOrdering Facility: [facility] Address: [address] [place] [address] Performed By: #### A LLBG ####[facility]ORYCLIA [id number] [address] STATES [place] PEEP/CPAP 5 cmH2O Normal [facility] Comment on above: Order Comment: Speci men Type: ARTERIAL BLOOD SPECIMENOrdering Facility: [facility] Address: [address] [place] [address] Performed By: #### A LLBG ####[facility]ORYCLIA [id number] [address] [place] pH (Bld) 7.34 [pH] Low 7.35-7.45 [facility] Comment on above: Order Comment: Speci men Type: ARTERIAL BLOOD SPECIMENOrdering Facility: [facility] Address: [address] [place] [address] Performed By: #### A LLBG ####[facility]ORYCLIA [id number] [address] STATES [facility] pH adjusted to patient's actual temperature (Bld) 7.34 Low 7.35-7.45 [facility] Comment on above: Order Comment: Speci men Type: ARTERIAL BLOOD SPECIMENOrdering Facility: [facility] Address: [address] [place] [address] Performed By: #### A LLBG ####[facility]ORYCLIA [id number] [place] [address] [place] PO2 / FIO2 RATIO 167 mmHg Low >300 [facility] Comment on above: Order Comment: Speci men Type: ARTERIAL BLOOD SPECIMENOrdering Facility: [facility] Address: [address] [place] [address] Performed By: #### A LLBG ####[facility]ORYCLIA [id number] [address] STATES [place] Potassium [Moles/Vol] 4.3 mmol/L Normal 3.5-5.0 [facility] Comment on above: Order Comment: Speci men Type: ARTERIAL BLOOD SPECIMENOrdering Facility: [facility] Address: [address] [place] [address] Performed By: #### A LLBG ####[facility]ORYCLIA [id number] [address] SET VENTILATOR RESPIRATORY RATE (BPM) 24 BPM Normal [facility] Comment on above: Order Comment: Speci men Type: ARTERIAL BLOOD SPECIMENOrdering Facility: [facility] Address: [address] [place] [address] Performed By: #### A LLBG ####[facility]ORYCLIA [id number] [address] [place] Sodium [Moles/Vol] 131 mmol/L Low 136-144 [facility] Comment on above: Order Comment: Speci men Type: ARTERIAL BLOOD SPECIMENOrdering Facility: [facility] Address: [address] [place] [address] Performed By: #### A LLBG ####[facility]ORYCLIA [id number] [address] [place] Base deficit (BldA) [Moles/Vol] -1 mmol/L Normal -2-0 [facility] Comment on above: Order Comment: Speci men Type: ARTERIAL BLOOD SPECIMENOrdering Facility: [facility] Address: [address] [place] [address] Performed By: #### A LLBG ####[facility]ORYCLIA [id number] [address] [place] Body temperature 99.14 [degF] Normal [facility] Comment on above: Order Comment: Speci men Type: ARTERIAL BLOOD SPECIMENOrdering Facility: [facility] Address: [address] [place] [address] Performed By: #### A LLBG ####[facility]ORYCLIA [id number] [address] Calcium.ionized (BldV) [Mass/Vol] 1.12 mmol/L Normal 1.08-1.30 [facility] Comment on above: Order Comment: Speci men Type: ARTERIAL BLOOD SPECIMENOrdering Facility: [facility] Address: [address] [place] [address] Performed By: #### A LLBG ####[facility]ATORYCLIA [id number] [address] Calcium.ionized adjusted to pH 7.4 (BldA) [Moles/Vol] 1.10 mmol/L Normal 1.08-1.30 [facility] Comment on above: Order Comment: Speci men Type: ARTERIAL BLOOD SPECIMENOrdering Facility: [facility] Address: [address] [place] [address] Performed By: #### A LLBG ####[facility]ATORYCLIA [id number] [address] Carboxyhemoglobin (BldA) [Mass fraction] 1.0 % Normal 0.0-2.0 [facility] Comment on above: Order Comment: Speci men Type: ARTERIAL BLOOD SPECIMENOrdering Facility: [facility] Address: [address] [place] [address] Result Comment: Carb oxyhemoglobin Reference Range for Smokers: 2.0-8.0% Performed By: #### A LLBG ####[facility]ATORYCLIA [id number] [address] Chloride [Moles/Vol] 107 mmol/L Normal 102-109 [facility] Comment on above: Order Comment: Speci men Type: ARTERIAL BLOOD SPECIMENOrdering Facility: [facility] Address: [address] [place] [address] Performed By: #### A LLBG ####[facility]ORYCLIA [id number] [address] [place] CO2 (Bld) [Partial pressure] 43 mm Hg Normal 36-46 [facility] Comment on above: Order Comment: Speci men Type: ARTERIAL BLOOD SPECIMENOrdering Facility: [facility] Address: [address] [place] [address] Performed By: #### A LLBG ####[facility]ATORYCLIA [id number] [address] [place] CO2 adjusted to patient's actual temperature (Bld) [Partial pressure] 43 mmHg Normal 36-46 [facility] Comment on above: Order Comment: Speci men Type: ARTERIAL BLOOD SPECIMENOrdering Facility: [facility] Address: [address] [place] [address] Performed By: #### A LLBG ####[facility]ORYCLIA [id number] [address] [place] Glucose [Mass/Vol] 183 mg/dL High 60-105 [facility] Comment on above: Order Comment: Speci men Type: ARTERIAL BLOOD SPECIMENOrdering Facility: [facility] Address: [address] [place] [address] Performed By: #### A LLBG ####[facility]ATORYCLIA [id number] [address] HCO3 (Bld) [Moles/Vol] 24 mmol/L Normal 22-26 [facility] Comment on above: Order Comment: Speci men Type: ARTERIAL BLOOD SPECIMENOrdering Facility: [facility] Address: [address] [place] [address] Performed By: #### A LLBG ####[facility]ATORYCLIA [id number] [address] Hematocrit (Bld) [Volume fraction] 39.9 % Normal 39.0-51.0 [facility] Comment on above: Order Comment: Speci men Type: ARTERIAL BLOOD SPECIMENOrdering Facility: [facility] Address: [address] [place] [address] Performed By: #### A LLBG ####[facility]ATORYCLIA [id number] [address] [place] Hemoglobin (Bld) [Mass/Vol] 13.0 g/dL Normal 13.0-17.0 [facility] Comment on above: Order Comment: Speci men Type: ARTERIAL BLOOD SPECIMENOrdering Facility: [facility] Address: [address] [place] [address] Performed By: #### A LLBG ####[facility]ATORYCLIA [id number] [address] OF [place] Lactate [Moles/Vol] 1.5 mmol/L Normal 0.5-2.2 [facility] Comment on above: Order Comment: Speci men Type: ARTERIAL BLOOD SPECIMENOrdering Facility: [facility] Address: [address] [place] [address] Performed By: #### A LLBG ####[facility]ATORYCLIA [id number] [address] OF [facility] Methemoglobin (Bld) [Mass fraction] 0.7 % Normal 0.0-1.5 [facility] Comment on above: Order Comment: Speci men Type: ARTERIAL BLOOD SPECIMENOrdering Facility: [facility] Address: [address] [place] [address] Performed By: #### A LLBG ####[facility]ATORYCLIA [id number] [address] O2 THERAPY VENT=Ventilator Normal [facility] Comment on above: Order Comment: Speci men Type: ARTERIAL BLOOD SPECIMENOrdering Facility: [facility] Address: [address] [place] [address] Performed By: #### A LLBG ####[facility]ORYCLIA [id number] [address] Oxygen (Bld) [Partial pressure] 91 mm Hg Normal 85-95 [facility] Comment on above: Order Comment: Speci men Type: ARTERIAL BLOOD SPECIMENOrdering Facility: [facility] Address: [address] [place] [address] Performed By: #### A LLBG ####[facility]ATORYCLIA [id number] [address] Oxygen adjusted to patient's actual temperature (Bld) [Partial pressure] 93 mmHg Normal 85-95 [facility] Comment on above: Order Comment: Speci men Type: ARTERIAL BLOOD SPECIMENOrdering Facility: [facility] Address: [address] [place] [address] Performed By: #### A LLBG ####[facility]ATORYCLIA [id number] [address] Oxyhemoglobin (BldA) [Mass fraction] 95 % Normal 95-98 [facility] Comment on above: Order Comment: Speci men Type: ARTERIAL BLOOD SPECIMENOrdering Facility: [facility] Address: [address] [place] [address] Performed By: #### A LLBG ####[facility]ORYCLIA [id number] [address] pH (Bld) 7.37 [pH] Normal 7.35-7.45 [facility] Comment on above: Order Comment: Speci men Type: ARTERIAL BLOOD SPECIMENOrdering Facility: [facility] Address: [address] [place] [address] Performed By: #### A LLBG ####[facility]ORYCLIA [id number] [address] pH adjusted to patient's actual temperature (Bld) 7.36 Normal 7.35-7.45 [facility] Comment on above: Order Comment: Speci men Type: ARTERIAL BLOOD SPECIMENOrdering Facility: [facility] Address: [address] [place] [address] Performed By: #### A LLBG ####[facility]ATORYCLIA [id number] [address] [place] Potassium [Moles/Vol] 4.4 mmol/L Normal 3.5-5.0 [facility] Comment on above: Order Comment: Speci men Type: ARTERIAL BLOOD SPECIMENOrdering Facility: [facility] Address: [address] [place] [address] Performed By: #### A LLBG ####[facility]ATORYCLIA [id number] [address] STATES [facility] Sodium [Moles/Vol] 132 mmol/L Low 136-144 [facility] Comment on above: Order Comment: Speci men Type: ARTERIAL BLOOD SPECIMENOrdering Facility: [facility] Address: [address] [place] [address] Performed By: #### A LLBG ####[facility]ATORYCLIA [id number] [address] OF [place] Bacteria Spec Resp Culton Bacteria identified Respiratory culture Nom (Unsp spec) CULTURE, RESPIRATORY: Rare Normal respiratory chente present ORGANISM ID: 2 Rare Klebsiella oxytoca complex Insignificant colony count. No further workup. GRAM STAIN: Rare Mixed oral chente Moderate Polymorphonuclear leukocytes Abnormal [facility] Comment on above: Performed By: #### 3 2355-0 ####[facility]ATORYCLIA [id number] [address] [place] CASE MGT INIT ASSESon 2023 CASE MGT INIT ASSES Normal [facility] CBC panel Auto (Bld)on 06-05 Erythrocyte distribution width (RBC) [Ratio] 13.5 % Normal 11.5-15.0 [facility] Comment on above: Order Comment: Speci men Type: BLOOD SPECIMENOrdering Facility: [facility] Address: [address] [place] [address] Performed By: #### 5 8410-2 ####[facility]ATORYCLIA [id number] [address] OF [facility] Hematocrit (Bld) [Volume fraction] 38.2 % Low 39.0-51.0 [facility] Comment on above: Order Comment: Speci men Type: BLOOD SPECIMENOrdering Facility: [facility] Address: [address] [place] [address] Performed By: #### 5 8410-2 ####[facility]ATORYCLIA [id number] [address] OF [facility] Hemoglobin (Bld) [Mass/Vol] 12.7 g/dL Low 13.0-17.0 [facility] Comment on above: Order Comment: Speci men Type: BLOOD SPECIMENOrdering Facility: [facility] Address: [address] [place] [address] Performed By: #### 5 8410-2 ####[facility]ORYCLIA [id number] [address] MCH (RBC) [Entitic mass] 30.3 pg Normal 26.0-34.0 [facility] Comment on above: Order Comment: Speci men Type: BLOOD SPECIMENOrdering Facility: [facility] Address: [address] [place] [address] Performed By: #### 5 8410-2 ####[facility]ATORYCLIA [id number] [address] MCHC (RBC) [Mass/Vol] 33.2 g/dL Normal 30.5-36.0 [facility] Comment on above: Order Comment: Speci men Type: BLOOD SPECIMENOrdering Facility: [facility] Address: [address] [place] [address] Performed By: #### 5 8410-2 ####[facility]ORYCLIA [id number] [address] OF [facility] MCV (RBC) [Entitic vol] 91.2 fL Normal 80.0-100.0 [facility] Comment on above: Order Comment: Speci men Type: BLOOD SPECIMENOrdering Facility: [facility] Address: [address] [place] [address] Performed By: #### 5 8410-2 ####[facility]ORYCLIA [id number] [address] Nucleated RBC (Bld) [#/Vol] 10*3/uL Normal <0.01 [facility] Comment on above: Order Comment: Speci men Type: BLOOD SPECIMENOrdering Facility: [facility] Address: [address] [place] [address] Performed By: #### 5 8410-2 ####[facility]ORYCLIA [id number] [address] STATES [facility] Platelet mean volume (Bld) [Entitic vol] 9.8 fL Normal 9.0-12.7 [facility] Comment on above: Order Comment: Speci men Type: BLOOD SPECIMENOrdering Facility: [facility] Address: [address] [place] [address] Performed By: #### 5 8410-2 ####[facility]ORYCLIA [id number] [address] OF [place] Platelets (Bld) [#/Vol] 281 10*3/uL Normal 150-400 [facility] Comment on above: Order Comment: Speci men Type: BLOOD SPECIMENOrdering Facility: [facility] Address: [address] [place] [address] Performed By: #### 5 8410-2 ####[facility]ORYCLIA [id number] [address] OF [place] RBC (Bld) [#/Vol] 4.19 10*6/uL Low 4.20-6.00 [facility] Comment on above: Order Comment: Speci men Type: BLOOD SPECIMENOrdering Facility: [facility] Address: [address] [place] [address] Performed By: #### 5 8410-2 ####[facility]ORYCLIA [id number] [address] OF [place] WBC (Bld) [#/Vol] 21.15 10*3/uL High 3.70-11.00 [facility] Comment on above: Order Comment: Speci men Type: BLOOD SPECIMENOrdering Facility: [facility] Address: [address] [place] [address] Performed By: #### 5 8410-2 ####[facility]ORYCLIA [id number] [address] OF [facility] Comprehensive metabolic 2000 panelon 06-05-2024 Albumin [Mass/Vol] 3.5 g/dL Low 3.9-4.9 [facility] Comment on above: Order Comment: Speci men Type: BLOOD SPECIMENOrdering Facility: [facility] Address: [address] [place] [address] Performed By: #### 2 4323-8 ####[facility]ORYCLIA [id number] [address] OF [place] ALP [Catalytic activity/Vol] 92 U/L Normal 38-113 [facility] Comment on above: Order Comment: Speci men Type: BLOOD SPECIMENOrdering Facility: [facility] Address: [address] [place] [address] Performed By: #### 2 4323-8 ####[facility]ORYCLIA [id number] [address] STATES [facility] ALT With P-5'-P [Catalytic activity/Vol] 141 U/L High 10-54 [facility] Comment on above: Order Comment: Speci men Type: BLOOD SPECIMENOrdering Facility: [facility] Address: [address] [place] [address] Performed By: #### 2 4323-8 ####[facility]ORYCLIA [id number] [address] Anion gap [Moles/Vol] 13 mmol/L Normal 8-15 [facility] Comment on above: Order Comment: Speci men Type: BLOOD SPECIMENOrdering Facility: [facility] Address: [address] [place] [address] Performed By: #### 2 4323-8 ####[facility]ORYCLIA [id number] [address] [place] AST With P-5'-P [Catalytic activity/Vol] 72 U/L High 14-40 [facility] Comment on above: Order Comment: Speci men Type: BLOOD SPECIMENOrdering Facility: [facility] Address: [address] [place] [address] Performed By: #### 2 4323-8 ####[facility]ORYCLIA [id number] [place] [address] [place] Bilirubin [Mass/Vol] 0.3 mg/dL Normal 0.2-1.3 [facility] Comment on above: Order Comment: Speci men Type: BLOOD SPECIMENOrdering Facility: [facility] Address: [address] [place] [address] Performed By: #### 2 4323-8 ####[facility]ORYCLIA [id number] [place] [address] [place] Calcium [Mass/Vol] 8.6 mg/dL Normal 8.5-10.2 [facility] Comment on above: Order Comment: Speci men Type: BLOOD SPECIMENOrdering Facility: [facility] Address: [address] [place] [address] Performed By: #### 2 4323-8 ####[facility]ORYCLIA [id number] [place] [address] [place] Chloride [Moles/Vol] 101 mmol/L Normal 98-107 [facility] Comment on above: Order Comment: Speci men Type: BLOOD SPECIMENOrdering Facility: [facility] Address: [address] [place] [address] Performed By: #### 2 4323-8 ####[facility]ORYCLIA [id number] [place] [address] [place] CO2 [Moles/Vol] 20 mmol/L Low 22-30 [facility] Comment on above: Order Comment: Speci men Type: BLOOD SPECIMENOrdering Facility: [facility] Address: [address] [place] [address] Performed By: #### 2 4323-8 ####[facility] LABORATORYCLIA [id number] [place] [address] [place] Creatinine [Mass/Vol] 0.96 mg/dL Normal 0.73-1.22 [facility] Comment on above: Order Comment: Speci men Type: BLOOD SPECIMENOrdering Facility: [facility] Address: [address] [place] [address] Performed By: #### 2 4323-8 ####[facility]ORYCLIA [id number] [place] [id number] [facility] Creatinine and Glomerular filtration rate.predicted panel (S/P/Bld) 89 mL/min/1.73m??? Normal >=60 [facility] Comment on above: Order Comment: Lele ying Type: BLOOD SPECIMENOrdering Facility: [facility] Address: [address] [place] [address] Result Comment: Aury mated Glomerular Filtration Rate (eGFR) is calculated using the 2020 CKD-EPI creatinine equation. This equation utilizes serum creatinine, sex, and age as parameters. The creatinine assay has traceable calibration to isotope dilution-mass spectrometry. Refer to KDIGO guidelines for clinical interpretation. In patients with unstable renal function, e.g. those with acute kidney injury, the eGFR may not accurately reflect actual GFR. Performed By: #### 2 4323-8 ####[facility]ITALIA [id number] [address] [place] Glucose [Mass/Vol] 195 mg/dL High 74-99 [facility] Comment on above: Order Comment: Lele ying Type: BLOOD SPECIMENOrdering Facility: [facility] Address: [address] [place] [address] Result Comment: The [place] [employer] (ADA) provides guidance for cutoff values for fasting glucose and random glucose. The ADA defines fasting as no caloric intake for at least 8 hours. Fasting plasma glucose results between 100 to 125 mg/dL indicate increased risk for diabetes (prediabetes).Fasting plasma glucose results greater than or equal to 126 mg/dL meet the criteria for diagnosis of diabetes. In the absence of unequivocal hyperglycemia, results should be confirmed by repeat testing. In a patient with classic symptoms of hyperglycemia or hyperglycemic crisis, random plasma glucose results greater than or equal to 200 mg/dL meet the criteria for diagnosis of diabetes.Reference: Standards of Medical Care in Diabetes 2016, [place] [employer]. Diabetes Care. 2016.39(Suppl 1). Performed By: #### 2 4323-8 ####[facility]ATORYCLIA [id number] [place] [id number] [place] Potassium [Moles/Vol] 4.9 mmol/L Normal 3.7-5.1 [facility] Comment on above: Order Comment: Speci men Type: BLOOD SPECIMENOrdering Facility: [facility] Address: [address] [place] [address] Performed By: #### 2 4323-8 ####[facility]ORYCLIA [id number] [place] [address] [place] Protein [Mass/Vol] 5.9 g/dL Low 6.3-8.0 [facility] Comment on above: Order Comment: Speci men Type: BLOOD SPECIMENOrdering Facility: [facility] Address: [address] [place] [address] Performed By: #### 2 4323-8 ####[facility]ORYCLIA [id number] [address] [place] Sodium [Moles/Vol] 134 mmol/L Low 136-144 [facility] Comment on above: Order Comment: Speci men Type: BLOOD SPECIMENOrdering Facility: [facility] Address: [address] [place] [address] Performed By: #### 2 4323-8 ####[facility]ORATORYCLIA [id number] [place] [address] [place] Urea nitrogen [Mass/Vol] 21 mg/dL Normal 9-24 [facility] Comment on above: Order Comment: Speci men Type: BLOOD SPECIMENOrdering Facility: [facility] Address: [address] [place] [address] Performed By: #### 2 4323-8 ####[facility]ATORYCLIA [id number] [place] [address] [place] XR CHEST 1V FRONTALon 2023 XR CHEST 1V FRONTAL Normal [facility] XR CHEST 1V FRONTAL Normal [facility] ALLIED HEALTHon 06-04-2024 ALLIED HEALTH Normal [facility] ARTERIAL BLOOD GASESon 06-04 Base deficit (BldA) [Moles/Vol] -2 mmol/L Normal -2-0 [facility] Comment on above: Order Comment: Speci men Type: ARTERIAL BLOOD SPECIMENOrdering Facility: [facility] Address: [address] [place] [address] Performed By: #### A LLBG ####[facility]ATORYCLIA [id number] [address] Body temperature 99.14 [degF] Normal [facility] Comment on above: Order Comment: Speci men Type: ARTERIAL BLOOD SPECIMENOrdering Facility: [facility] Address: [address] [place] [address] Performed By: #### A LLBG ####[facility]ATORYCLIA [id number] [address] OF [facility] Calcium.ionized (BldV) [Mass/Vol] 1.12 mmol/L Normal 1.08-1.30 [facility] Comment on above: Order Comment: Speci men Type: ARTERIAL BLOOD SPECIMENOrdering Facility: [facility] Address: [address] [place] [address] Performed By: #### A LLBG ####[facility]ATORYCLIA [id number] [address] Calcium.ionized adjusted to pH 7.4 (BldA) [Moles/Vol] 1.09 mmol/L Normal 1.08-1.30 [facility] Comment on above: Order Comment: Speci men Type: ARTERIAL BLOOD SPECIMENOrdering Facility: [facility] Address: [address] [place] [address] Performed By: #### A LLBG ####[facility]ATORYCLIA [id number] [address] OF [place] Carboxyhemoglobin (BldA) [Mass fraction] 0.6 % Normal 0.0-2.0 [facility] Comment on above: Order Comment: Speci men Type: ARTERIAL BLOOD SPECIMENOrdering Facility: [facility] Address: [address] [place] [address] Result Comment: Carb oxyhemoglobin Reference Range for Smokers: 2.0-8.0% Performed By: #### A LLBG ####[facility]ATORYCLIA [id number] [address] [place] Chloride [Moles/Vol] 107 mmol/L Normal 102-109 [facility] Comment on above: Order Comment: Speci men Type: ARTERIAL BLOOD SPECIMENOrdering Facility: [facility] Address: [address] [place] [address] Performed By: #### A LLBG ####[facility]ORYCLIA [id number] [address] OF [place] CO2 (Bld) [Partial pressure] 43 mm Hg Normal 36-46 [facility] Comment on above: Order Comment: Speci men Type: ARTERIAL BLOOD SPECIMENOrdering Facility: [facility] Address: [address] [place] [address] Performed By: #### A LLBG ####[facility]ORYCLIA [id number] [address] CO2 adjusted to patient's actual temperature (Bld) [Partial pressure] 43 mmHg Normal 36-46 [facility] Comment on above: Order Comment: Speci men Type: ARTERIAL BLOOD SPECIMENOrdering Facility: [facility] Address: [address] [place] [address] Performed By: #### A LLBG ####[facility]ORYCLIA [id number] [address] [place] FIO2 45 % Normal [facility] Comment on above: Order Comment: Speci men Type: ARTERIAL BLOOD SPECIMENOrdering Facility: [facility] Address: [address] [place] [address] Performed By: #### A LLBG ####[facility]ORYCLIA [id number] [address] [place] Glucose [Mass/Vol] 224 mg/dL High 60-105 [facility] Comment on above: Order Comment: Speci men Type: ARTERIAL BLOOD SPECIMENOrdering Facility: [facility] Address: [address] [place] [address] Performed By: #### A LLBG ####[facility]ORYCLIA [id number] [address] [place] HCO3 (Bld) [Moles/Vol] 23 mmol/L Normal 22-26 [facility] Comment on above: Order Comment: Speci men Type: ARTERIAL BLOOD SPECIMENOrdering Facility: [facility] Address: [address] [place] [address] Performed By: #### A LLBG ####[facility]ATORYCLIA [id number] [address] [place] Hematocrit (Bld) [Volume fraction] 43.1 % Normal 39.0-51.0 [facility] Comment on above: Order Comment: Speci men Type: ARTERIAL BLOOD SPECIMENOrdering Facility: [facility] Address: [address] [place] [address] Performed By: #### A LLBG ####[facility]ATORYCLIA [id number] [address] [place] Hemoglobin (Bld) [Mass/Vol] 14.1 g/dL Normal 13.0-17.0 [facility] Comment on above: Order Comment: Speci men Type: ARTERIAL BLOOD SPECIMENOrdering Facility: [facility] Address: [address] [place] [address] Performed By: #### A LLBG ####[facility]ATORYCLIA [id number] [address] [place] Lactate [Moles/Vol] 2.4 mmol/L High 0.5-2.2 [facility] Comment on above: Order Comment: Speci men Type: ARTERIAL BLOOD SPECIMENOrdering Facility: [facility] Address: [address] [place] [address] Performed By: #### A LLBG ####[facility]ATORYCLIA [id number] [address] OF [place] Methemoglobin (Bld) [Mass fraction] 0.6 % Normal 0.0-1.5 [facility] Comment on above: Order Comment: Speci men Type: ARTERIAL BLOOD SPECIMENOrdering Facility: [facility] Address: [address] [place] [address] Performed By: #### A LLBG ####[facility]ORYCLIA [id number] [address] O2 THERAPY VENT=Ventilator Normal [facility] Comment on above: Order Comment: Speci men Type: ARTERIAL BLOOD SPECIMENOrdering Facility: [facility] Address: [address] [place] [address] Performed By: #### A LLBG ####[facility]ATORYCLIA [id number] [address] OF [place] Oxygen (Bld) [Partial pressure] 71 mm Hg Low 85-95 [facility] Comment on above: Order Comment: Speci men Type: ARTERIAL BLOOD SPECIMENOrdering Facility: [facility] Address: [address] [place] [address] Performed By: #### A LLBG ####[facility]ORYCLIA [id number] [address] Oxygen adjusted to patient's actual temperature (Bld) [Partial pressure] 72 mmHg Low 85-95 [facility] Comment on above: Order Comment: Speci men Type: ARTERIAL BLOOD SPECIMENOrdering Facility: [facility] Address: [address] [place] [address] Performed By: #### A LLBG ####[facility]ORYCLIA [id number] [address] OF [place] Oxyhemoglobin (BldA) [Mass fraction] 92 % Low 95-98 [facility] Comment on above: Order Comment: Speci men Type: ARTERIAL BLOOD SPECIMENOrdering Facility: [facility] Address: [address] [place] [address] Performed By: #### A LLBG ####[facility]ORYCLIA [id number] [address] OF [place] pH (Bld) 7.36 [pH] Normal 7.35-7.45 [facility] Comment on above: Order Comment: Speci men Type: ARTERIAL BLOOD SPECIMENOrdering Facility: [facility] Address: [address] [place] [address] Performed By: #### A LLBG ####[facility]ORYCLIA [id number] [address] pH adjusted to patient's actual temperature (Bld) 7.35 Normal 7.35-7.45 [facility] Comment on above: Order Comment: Speci men Type: ARTERIAL BLOOD SPECIMENOrdering Facility: [facility] Address: [address] [place] [address] Performed By: #### A LLBG ####[facility]ORYCLIA [id number] [address] [place] PO2 / FIO2 RATIO 158 mmHg Low >300 [facility] Comment on above: Order Comment: Speci men Type: ARTERIAL BLOOD SPECIMENOrdering Facility: [facility] Address: [address] [place] [address] Performed By: #### A LLBG ####[facility]ORYCLIA [id number] [address] [place] Potassium [Moles/Vol] 4.5 mmol/L Normal 3.5-5.0 [facility] Comment on above: Order Comment: Speci men Type: ARTERIAL BLOOD SPECIMENOrdering Facility: [facility] Address: [address] [place] [address] Performed By: #### A LLBG ####[facility]ORYCLIA [id number] [address] [place] Sodium [Moles/Vol] 133 mmol/L Low 136-144 [facility] Comment on above: Order Comment: Speci men Type: ARTERIAL BLOOD SPECIMENOrdering Facility: [facility] Address: [address] [place] [address] Performed By: #### A LLBG ####[facility]ORYCLIA [id number] [address] OF [place] Base deficit (BldA) [Moles/Vol] -2 mmol/L Normal -2-0 [facility] Comment on above: Order Comment: Speci men Type: ARTERIAL BLOOD SPECIMENOrdering Facility: [facility] Address: [address] [place] [address] Performed By: #### A LLBG ####[facility]ATORYCLIA [id number] [address] Body temperature 98.6 [degF] Normal [facility] Comment on above: Order Comment: Speci men Type: ARTERIAL BLOOD SPECIMENOrdering Facility: [facility] Address: [address] [place] [address] Performed By: #### A LLBG ####[facility]ATORYCLIA [id number] [address] [place] Calcium.ionized (BldV) [Mass/Vol] 1.11 mmol/L Normal 1.08-1.30 [facility] Comment on above: Order Comment: Speci men Type: ARTERIAL BLOOD SPECIMENOrdering Facility: [facility] Address: [address] [place] [address] Performed By: #### A LLBG ####[facility]ORYCLIA [id number] [address] STATES OF [facility] Calcium.ionized adjusted to pH 7.4 (BldA) [Moles/Vol] 1.07 mmol/L Low 1.08-1.30 [facility] Comment on above: Order Comment: Speci men Type: ARTERIAL BLOOD SPECIMENOrdering Facility: [facility] Address: [address] [place] [address] Performed By: #### A LLBG ####[facility]ORYCLIA [id number] [address] [place] Carboxyhemoglobin (BldA) [Mass fraction] 1.2 % Normal 0.0-2.0 [facility] Comment on above: Order Comment: Speci men Type: ARTERIAL BLOOD SPECIMENOrdering Facility: [facility] Address: [address] [place] [address] Result Comment: Carb oxyhemoglobin Reference Range for Smokers: 2.0-8.0% Performed By: #### A LLBG ####[facility]ORYCLIA [id number] [place] [address] [place] Chloride [Moles/Vol] 109 mmol/L Normal 102-109 [facility] Comment on above: Order Comment: Speci men Type: ARTERIAL BLOOD SPECIMENOrdering Facility: [facility] Address: [address] [place] [address] Performed By: #### A LLBG ####[facility]ORYCLIA [id number] [address] [place] CO2 (Bld) [Partial pressure] 45 mm Hg Normal 36-46 [facility] Comment on above: Order Comment: Speci men Type: ARTERIAL BLOOD SPECIMENOrdering Facility: [facility] Address: [address] [place] [address] Performed By: #### A LLBG ####[facility]ORYCLIA [id number] [address] [place] FIO2 45 % Normal [facility] Comment on above: Order Comment: Speci men Type: ARTERIAL BLOOD SPECIMENOrdering Facility: [facility] Address: [address] [place] [address] Performed By: #### A LLBG ####[facility]ORYCLIA [id number] [address] [place] Glucose [Mass/Vol] 251 mg/dL High 60-105 [facility] Comment on above: Order Comment: Speci men Type: ARTERIAL BLOOD SPECIMENOrdering Facility: [facility] Address: [address] [place] [address] Performed By: #### A LLBG ####[facility]ORYCLIA [id number] [place] [address] [place] HCO3 (Bld) [Moles/Vol] 23 mmol/L Normal 22-26 [facility] Comment on above: Order Comment: Speci men Type: ARTERIAL BLOOD SPECIMENOrdering Facility: [facility] Address: [address] [place] [address] Performed By: #### A LLBG ####[facility]ORYCLIA [id number] [place] [address] [place] Hematocrit (Bld) [Volume fraction] 41.5 % Normal 39.0-51.0 [facility] Comment on above: Order Comment: Speci men Type: ARTERIAL BLOOD SPECIMENOrdering Facility: [facility] Address: [address] [place] [address] Performed By: #### A LLBG ####[facility]ORYCLIA [id number] [address] [place] Hemoglobin (Bld) [Mass/Vol] 13.5 g/dL Normal 13.0-17.0 [facility] Comment on above: Order Comment: Speci men Type: ARTERIAL BLOOD SPECIMENOrdering Facility: [facility] Address: [address] [place] [address] Performed By: #### A LLBG ####[facility]ORYCLIA [id number] [address] [place] INHALED TIDAL VOLUME (ML) 450 Normal [facility] Comment on above: Order Comment: Speci men Type: ARTERIAL BLOOD SPECIMENOrdering Facility: [facility] Address: [address] [place] [address] Performed By: #### A LLBG ####[facility]ORYCLIA [id number] [address] [place] Lactate [Moles/Vol] 2.2 mmol/L Normal 0.5-2.2 [facility] Comment on above: Order Comment: Speci men Type: ARTERIAL BLOOD SPECIMENOrdering Facility: [facility] Address: [address] [place] [address] Performed By: #### A LLBG ####[facility]ORYCLIA [id number] [address] [place] Methemoglobin (Bld) [Mass fraction] 0.8 % Normal 0.0-1.5 [facility] Comment on above: Order Comment: Speci men Type: ARTERIAL BLOOD SPECIMENOrdering Facility: [facility] Address: [address] [place] [address] Performed By: #### A LLBG ####[facility]ORYCLIA [id number] [address] [place] O2 THERAPY VENT=Ventilator Normal [facility] Comment on above: Order Comment: Speci men Type: ARTERIAL BLOOD SPECIMENOrdering Facility: [facility] Address: [address] [place] [address] Performed By: #### A LLBG ####[facility]ORYCLIA [id number] [address] [place] Oxygen (Bld) [Partial pressure] 72 mm Hg Low 85-95 [facility] Comment on above: Order Comment: Speci men Type: ARTERIAL BLOOD SPECIMENOrdering Facility: [facility] Address: [address] [place] [address] Performed By: #### A LLBG ####[facility]ORYCLIA [id number] [address] [place] Oxyhemoglobin (BldA) [Mass fraction] 93 % Low 95-98 [facility] Comment on above: Order Comment: Speci men Type: ARTERIAL BLOOD SPECIMENOrdering Facility: [facility] Address: [address] [place] [address] Performed By: #### A LLBG ####[facility]ORYCLIA [id number] [address] PEEP/CPAP 5 cmH2O Normal [facility] Comment on above: Order Comment: Speci men Type: ARTERIAL BLOOD SPECIMENOrdering Facility: [facility] Address: [address] [place] [address] Performed By: #### A LLBG ####[facility]ORYCLIA [id number] [address] [place] pH (Bld) 7.34 [pH] Low 7.35-7.45 [facility] Comment on above: Order Comment: Speci men Type: ARTERIAL BLOOD SPECIMENOrdering Facility: [facility] Address: [address] [place] [address] Performed By: #### A LLBG ####[facility]ORYCLIA [id number] [address] [place] PO2 / FIO2 RATIO 160 mmHg Low >300 [facility] Comment on above: Order Comment: Speci men Type: ARTERIAL BLOOD SPECIMENOrdering Facility: [facility] Address: [address] [place] [address] Performed By: #### A LLBG ####[facility]ORYCLIA [id number] [address] [place] Potassium [Moles/Vol] 4.3 mmol/L Normal 3.5-5.0 [facility] Comment on above: Order Comment: Speci men Type: ARTERIAL BLOOD SPECIMENOrdering Facility: [facility] Address: [address] [place] [address] Performed By: #### A LLBG ####[facility]ORYCLIA [id number] [address] SET VENTILATOR RESPIRATORY RATE (BPM) 28 BPM Normal [facility] Comment on above: Order Comment: Speci men Type: ARTERIAL BLOOD SPECIMENOrdering Facility: [facility] Address: [address] [place] [address] Performed By: #### A LLBG ####[facility]ORYCLIA [id number] [address] [place] Sodium [Moles/Vol] 132 mmol/L Low 136-144 [facility] Comment on above: Order Comment: Speci men Type: ARTERIAL BLOOD SPECIMENOrdering Facility: [facility] Address: [address] [place] [address] Performed By: #### A LLBG ####[facility]ORYCLIA [id number] [address] [place] Base deficit (BldA) [Moles/Vol] -3 mmol/L Low -2-0 [facility] Comment on above: Order Comment: Speci men Type: ARTERIAL BLOOD SPECIMENOrdering Facility: [facility] Address: [address] [place] [address] Performed By: #### A LLBG ####[facility]ORYCLIA [id number] [address] OF [place] Body temperature 99.14 [degF] Normal [facility] Comment on above: Order Comment: Speci men Type: ARTERIAL BLOOD SPECIMENOrdering Facility: [facility] Address: [address] [place] [address] Performed By: #### A LLBG ####[facility]ORYCLIA [id number] [address] Calcium.ionized (BldV) [Mass/Vol] 1.15 mmol/L Normal 1.08-1.30 [facility] Comment on above: Order Comment: Speci men Type: ARTERIAL BLOOD SPECIMENOrdering Facility: [facility] Address: [address] [place] [address] Performed By: #### A LLBG ####[facility] COUNTYCLIA [id number] [address] Calcium.ionized adjusted to pH 7.4 (BldA) [Moles/Vol] 1.06 mmol/L Low 1.08-1.30 [facility] Comment on above: Order Comment: Speci men Type: ARTERIAL BLOOD SPECIMENOrdering Facility: [facility] Address: [address] [place] [address] Performed By: #### A LLBG ####[facility]ORYCLIA [id number] [address] Carboxyhemoglobin (BldA) [Mass fraction] 1.4 % Normal 0.0-2.0 [facility] Comment on above: Order Comment: Speci men Type: ARTERIAL BLOOD SPECIMENOrdering Facility: [facility] Address: [address] [place] [address] Result Comment: Carb oxyhemoglobin Reference Range for Smokers: 2.0-8.0% Performed By: #### A LLBG ####[facility]ORYCLIA [id number] [address] Chloride [Moles/Vol] 109 mmol/L Normal 102-109 [facility] Comment on above: Order Comment: Speci men Type: ARTERIAL BLOOD SPECIMENOrdering Facility: [facility] Address: [address] [place] [address] Performed By: #### A LLBG ####[facility]ORYCLIA [id number] [address] CO2 (Bld) [Partial pressure] 56 mm Hg High 36-46 [facility] Comment on above: Order Comment: Speci men Type: ARTERIAL BLOOD SPECIMENOrdering Facility: [facility] Address: [facility] [place] [address] Performed By: #### A LLBG ####[facility]ORYCLIA [id number] [address] CO2 adjusted to patient's actual temperature (Bld) [Partial pressure] 57 mmHg High 36-46 [facility] Comment on above: Order Comment: Speci men Type: ARTERIAL BLOOD SPECIMENOrdering Facility: [facility] Address: [address] [place] [address] Performed By: #### A LLBG ####[facility]ORYCLIA [id number] [address] [place] FIO2 50 % Normal [facility] Comment on above: Order Comment: Speci men Type: ARTERIAL BLOOD SPECIMENOrdering Facility: [facility] Address: [address] [place] [address] Performed By: #### A LLBG ####[facility]ORYCLIA [id number] [address] [place] Glucose [Mass/Vol] 221 mg/dL High 60-105 [facility] Comment on above: Order Comment: Speci men Type: ARTERIAL BLOOD SPECIMENOrdering Facility: [facility] Address: [address] [place] [address] Performed By: #### A LLBG ####[facility]ORYCLIA [id number] [address] STATES [facility] HCO3 (Bld) [Moles/Vol] 24 mmol/L Normal 22-26 [facility] Comment on above: Order Comment: Speci men Type: ARTERIAL BLOOD SPECIMENOrdering Facility: [facility] Address: [address] [place] [address] Performed By: #### A LLBG ####[facility]ORYCLIA [id number] [address] Hematocrit (Bld) [Volume fraction] 42.7 % Normal 39.0-51.0 [facility] Comment on above: Order Comment: Speci men Type: ARTERIAL BLOOD SPECIMENOrdering Facility: [facility] Address: [address] [place] [address] Performed By: #### A LLBG ####[facility]ORATORYCLIA [id number] [address] [place] Hemoglobin (Bld) [Mass/Vol] 13.9 g/dL Normal 13.0-17.0 [facility] Comment on above: Order Comment: Speci men Type: ARTERIAL BLOOD SPECIMENOrdering Facility: [facility] Address: [address] [place] [address] Performed By: #### A LLBG ####[facility]ORYCLIA [id number] [address] STATES [facility] INHALED TIDAL VOLUME (ML) 400 Normal [facility] Comment on above: Order Comment: Speci men Type: ARTERIAL BLOOD SPECIMENOrdering Facility: [facility] Address: [address] [place] [address] Performed By: #### A LLBG ####[facility]ORYCLIA [id number] [address] [place] Lactate [Moles/Vol] 2.0 mmol/L Normal 0.5-2.2 [facility] Comment on above: Order Comment: Speci men Type: ARTERIAL BLOOD SPECIMENOrdering Facility: [facility] Address: [address] [place] [address] Performed By: #### A LLBG ####[facility]ORYCLIA [id number] [address] [place] Methemoglobin (Bld) [Mass fraction] 0.7 % Normal 0.0-1.5 [facility] Comment on above: Order Comment: Speci men Type: ARTERIAL BLOOD SPECIMENOrdering Facility: [facility] Address: [address] [place] [address] Performed By: #### A LLBG ####[facility]ORYCLIA [id number] [address] O2 THERAPY VENT=Ventilator Normal [facility] Comment on above: Order Comment: Speci men Type: ARTERIAL BLOOD SPECIMENOrdering Facility: [facility] Address: [address] [place] [address] Performed By: #### A LLBG ####[facility]ATORYCLIA [id number] [address] [place] Oxygen (Bld) [Partial pressure] 89 mm Hg Normal 85-95 [facility] Comment on above: Order Comment: Speci men Type: ARTERIAL BLOOD SPECIMENOrdering Facility: [facility] Address: [address] [place] [address] Performed By: #### A LLBG ####[facility]ATORYCLIA [id number] [address] Oxygen adjusted to patient's actual temperature (Bld) [Partial pressure] 91 mmHg Normal 85-95 [facility] Comment on above: Order Comment: Speci men Type: ARTERIAL BLOOD SPECIMENOrdering Facility: [facility] Address: [address] [place] [address] Performed By: #### A LLBG ####[facility]ATORYCLIA [id number] [address] [place] Oxyhemoglobin (BldA) [Mass fraction] 94 % Low 95-98 [facility] Comment on above: Order Comment: Speci men Type: ARTERIAL BLOOD SPECIMENOrdering Facility: [facility] Address: [address] [place] [address] Performed By: #### A LLBG ####[facility]ORYCLIA [id number] [address] OF [place] PEEP/CPAP 5 cmH2O Normal [facility] Comment on above: Order Comment: Speci men Type: ARTERIAL BLOOD SPECIMENOrdering Facility: [facility] Address: [address] [place] [address] Performed By: #### A LLBG ####[facility]ORYCLIA [id number] [address] [place] pH (Bld) 7.26 [pH] Low 7.35-7.45 [facility] Comment on above: Order Comment: Speci men Type: ARTERIAL BLOOD SPECIMENOrdering Facility: [facility] Address: [address] [place] [address] Performed By: #### A LLBG ####[facility]ORATORYCLIA [id number] [address] pH adjusted to patient's actual temperature (Bld) 7.25 Low 7.35-7.45 [facility] Comment on above: Order Comment: Speci men Type: ARTERIAL BLOOD SPECIMENOrdering Facility: [facility] Address: [address] [place] [address] Performed By: #### A LLBG ####[facility]ATORYCLIA [id number] [address] [place] PO2 / FIO2 RATIO 178 mmHg Low >300 [facility] Comment on above: Order Comment: Speci men Type: ARTERIAL BLOOD SPECIMENOrdering Facility: [facility] Address: [address] [place] [address] Performed By: #### A LLBG ####[facility]ATORYCLIA [id number] [address] [place] Potassium [Moles/Vol] 4.3 mmol/L Normal 3.5-5.0 [facility] Comment on above: Order Comment: Speci men Type: ARTERIAL BLOOD SPECIMENOrdering Facility: [facility] Address: [address] [place] [address] Performed By: #### A LLBG ####[facility]ORYCLIA [id number] [address] SET VENTILATOR RESPIRATORY RATE (BPM) 28 BPM Normal [facility] Comment on above: Order Comment: Speci men Type: ARTERIAL BLOOD SPECIMENOrdering Facility: [facility] Address: [address] [place] [address] Performed By: #### A LLBG ####[facility]ATORYCLIA [id number] [address] [place] Sodium [Moles/Vol] 135 mmol/L Low 136-144 [facility] Comment on above: Order Comment: Speci men Type: ARTERIAL BLOOD SPECIMENOrdering Facility: [facility] Address: [address] [place] [address] Performed By: #### A LLBG ####[facility]ATORYCLIA [id number] [address] [place] Base deficit (BldA) [Moles/Vol] -5 mmol/L Low -2-0 [facility] Comment on above: Order Comment: Speci men Type: ARTERIAL BLOOD SPECIMENOrdering Facility: [facility] Address: [address] [place] [address] Performed By: #### A LLBG ####[facility]ATORYCLIA [id number] [address] [place] Body temperature 96.26 [degF] Normal [facility] Comment on above: Order Comment: Speci men Type: ARTERIAL BLOOD SPECIMENOrdering Facility: [facility] Address: [address] [place] [address] Performed By: #### A LLBG ####[facility]ATORYCLIA [id number] [address] [place] Calcium.ionized (BldV) [Mass/Vol] 1.08 mmol/L Normal 1.08-1.30 [facility] Comment on above: Order Comment: Speci men Type: ARTERIAL BLOOD SPECIMENOrdering Facility: [facility] Address: [address] [place] [address] Performed By: #### A LLBG ####[facility]ATORYCLIA [id number] [address] Calcium.ionized adjusted to pH 7.4 (BldA) [Moles/Vol] 0.98 mmol/L Low 1.08-1.30 [facility] Comment on above: Order Comment: Speci men Type: ARTERIAL BLOOD SPECIMENOrdering Facility: [facility] Address: [address] [place] [address] Performed By: #### A LLBG ####[facility]ATORYCLIA [id number] [address] [place] Carboxyhemoglobin (BldA) [Mass fraction] 1.5 % Normal 0.0-2.0 [facility] Comment on above: Order Comment: Speci men Type: ARTERIAL BLOOD SPECIMENOrdering Facility: [facility] Address: [address] [place] [address] Result Comment: Carb oxyhemoglobin Reference Range for Smokers: 2.0-8.0% Performed By: #### A LLBG ####[facility]ATORYCLIA [id number] [address] [place] Chloride [Moles/Vol] 113 mmol/L High 102-109 [facility] Comment on above: Order Comment: Speci men Type: ARTERIAL BLOOD SPECIMENOrdering Facility: [facility] Address: [address] [place] [address] Performed By: #### A LLBG ####[facility]ATORYCLIA [id number] [address] [place] CO2 (Bld) [Partial pressure] 59 mm Hg High 36-46 [facility] Comment on above: Order Comment: Speci men Type: ARTERIAL BLOOD SPECIMENOrdering Facility: [facility] Address: [address] [place] [address] Performed By: #### A LLBG ####[facility]ATORYCLIA [id number] [address] [place] CO2 adjusted to patient's actual temperature (Bld) [Partial pressure] 55 mmHg High 36-46 [facility] Comment on above: Order Comment: Speci men Type: ARTERIAL BLOOD SPECIMENOrdering Facility: [facility] Address: [address] [place] [address] Performed By: #### A LLBG ####[facility]ATORYCLIA [id number] [address] [place] FIO2 50 % Normal [facility] Comment on above: Order Comment: Speci men Type: ARTERIAL BLOOD SPECIMENOrdering Facility: [facility] Address: [address] [place] [address] Performed By: #### A LLBG ####[facility]ATORYCLIA [id number] [address] [place] Glucose [Mass/Vol] 184 mg/dL High 60-105 [facility] Comment on above: Order Comment: Speci men Type: ARTERIAL BLOOD SPECIMENOrdering Facility: [facility] Address: [address] [place] [address] Performed By: #### A LLBG ####[facility]ATORYCLIA [id number] [address] [place] HCO3 (Bld) [Moles/Vol] 23 mmol/L Normal 22-26 [facility] Comment on above: Order Comment: Speci men Type: ARTERIAL BLOOD SPECIMENOrdering Facility: [facility] Address: [address] [place] [address] Performed By: #### A LLBG ####[facility]ORYCLIA [id number] [address] [place] Hematocrit (Bld) [Volume fraction] 41.5 % Normal 39.0-51.0 [facility] Comment on above: Order Comment: Speci men Type: ARTERIAL BLOOD SPECIMENOrdering Facility: [facility] Address: [address] [place] [address] Performed By: #### A LLBG ####[facility]ATORYCLIA [id number] [place] [address] [place] Hemoglobin (Bld) [Mass/Vol] 13.5 g/dL Normal 13.0-17.0 [facility] Comment on above: Order Comment: Speci men Type: ARTERIAL BLOOD SPECIMENOrdering Facility: [facility] Address: [address] [place] [address] Performed By: #### A LLBG ####[facility]ATORYCLIA [id number] [address] [place] INHALED TIDAL VOLUME (ML) 450 Normal [facility] Comment on above: Order Comment: Speci men Type: ARTERIAL BLOOD SPECIMENOrdering Facility: [facility] Address: [address] [place] [address] Performed By: #### A LLBG ####[facility]ATORYCLIA [id number] [address] [place] Lactate [Moles/Vol] 2.0 mmol/L Normal 0.5-2.2 [facility] Comment on above: Order Comment: Speci men Type: ARTERIAL BLOOD SPECIMENOrdering Facility: [facility] Address: [address] [place] [address] Performed By: #### A LLBG ####[facility]ATORYCLIA [id number] [address] [place] Methemoglobin (Bld) [Mass fraction] 0.7 % Normal 0.0-1.5 [facility] Comment on above: Order Comment: Speci men Type: ARTERIAL BLOOD SPECIMENOrdering Facility: [facility] Address: [address] [place] [address] Performed By: #### A LLBG ####[facility]ATORYCLIA [id number] [address] O2 THERAPY VENT=Ventilator Normal [facility] Comment on above: Order Comment: Speci men Type: ARTERIAL BLOOD SPECIMENOrdering Facility: [facility] Address: [address] [place] [address] Performed By: #### A LLBG ####[facility]ORYCLIA [id number] [address] [place] Oxygen (Bld) [Partial pressure] 60 mm Hg Low 85-95 [facility] Comment on above: Order Comment: Speci men Type: ARTERIAL BLOOD SPECIMENOrdering Facility: [facility] Address: [address] [place] [address] Performed By: #### A LLBG ####[facility]ATORYCLIA [id number] [address] [place] Oxygen adjusted to patient's actual temperature (Bld) [Partial pressure] 55 mmHg Low 85-95 [facility] Comment on above: Order Comment: Speci men Type: ARTERIAL BLOOD SPECIMENOrdering Facility: [facility] Address: [address] [place] [address] Performed By: #### A LLBG ####[facility]ATORYCLIA [id number] [address] [place] Oxyhemoglobin (BldA) [Mass fraction] 86 % Low 95-98 [facility] Comment on above: Order Comment: Speci men Type: ARTERIAL BLOOD SPECIMENOrdering Facility: [facility] Address: [address] [place] [address] Performed By: #### A LLBG ####[facility]ORYCLIA [id number] [address] [place] PEEP/CPAP 5 cmH2O Normal [facility] Comment on above: Order Comment: Speci men Type: ARTERIAL BLOOD SPECIMENOrdering Facility: [facility] Address: [address] [place] [address] Performed By: #### A LLBG ####[facility]ATORYCLIA [id number] [address] [place] pH (Bld) 7.22 [pH] Low 7.35-7.45 [facility] Comment on above: Order Comment: Speci men Type: ARTERIAL BLOOD SPECIMENOrdering Facility: [facility] Address: [address] [place] [address] Performed By: #### A LLBG ####[facility]ORYCLIA [id number] [address] [place] pH adjusted to patient's actual temperature (Bld) 7.23 Low 7.35-7.45 [facility] Comment on above: Order Comment: Speci men Type: ARTERIAL BLOOD SPECIMENOrdering Facility: [facility] Address: [address] [place] [address] Performed By: #### A LLBG ####[facility]ORYCLIA [id number] [address] [place] PO2 / FIO2 RATIO 120 mmHg Low >300 [facility] Comment on above: Order Comment: Speci men Type: ARTERIAL BLOOD SPECIMENOrdering Facility: [facility] Address: [address] [place] [address] Performed By: #### A LLBG ####[facility]ORYCLIA [id number] [address] [place] Potassium [Moles/Vol] 3.7 mmol/L Normal 3.5-5.0 [facility] Comment on above: Order Comment: Speci men Type: ARTERIAL BLOOD SPECIMENOrdering Facility: [facility] Address: [address] [place] [address] Performed By: #### A LLBG ####[facility]ATORYCLIA [id number] [address] SET VENTILATOR RESPIRATORY RATE (BPM) 28 BPM Normal [facility] Comment on above: Order Comment: Speci men Type: ARTERIAL BLOOD SPECIMENOrdering Facility: [facility] Address: [address] [place] [address] Performed By: #### A LLBG ####[facility]ATORYCLIA [id number] [place] [address] [place] Sodium [Moles/Vol] 135 mmol/L Low 136-144 [facility] Comment on above: Order Comment: Speci men Type: ARTERIAL BLOOD SPECIMENOrdering Facility: [facility] Address: [address] [place] [address] Performed By: #### A LLBG ####[facility]ORYCLIA [id number] [place] [address] [place] Basic metabolic 2000 panelon 06-04-2024 Anion gap [Moles/Vol] 8 mmol/L Normal 8-15 [facility] Comment on above: Order Comment: Speci men Type: BLOOD SPECIMENOrdering Facility: [facility] Address: [address] [place] [address] Performed By: #### 2 4321-2, 82202-6, 2776-09, ####[facility]ORYCLIA [id number] [place] [address] [place] Calcium [Mass/Vol] 7.8 mg/dL Low 8.5-10.2 [facility] Comment on above: Order Comment: Speci men Type: BLOOD SPECIMENOrdering Facility: [facility] Address: [address] [place] [address] Performed By: #### 2 4321-2, 07200-1, 2776-09, ####[facility]ATORYCLIA [id number] [place] [address] [place] Chloride [Moles/Vol] 98 mmol/L Normal 98-107 [facility] Comment on above: Order Comment: Speci men Type: BLOOD SPECIMENOrdering Facility: [facility] Address: [address] [place] [address] Performed By: #### 2 4321-2, 00360-1, 2776-09, ####[facility]ATORYCLIA [id number] [place] [address] [place] CO2 [Moles/Vol] 26 mmol/L Normal 22-30 [facility] Comment on above: Order Comment: Speci men Type: BLOOD SPECIMENOrdering Facility: [facility] Address: [address] [place] [address] Performed By: #### 2 4321-2, 64854-0, 2776-09, ####[facility]ATORYCLIA [id number] [place] [address] [place] Creatinine [Mass/Vol] 1.02 mg/dL Normal 0.73-1.22 [facility] Comment on above: Order Comment: Speci men Type: BLOOD SPECIMENOrdering Facility: [facility] Address: [address] [place] [address] Performed By: #### 2 4321-2, 06674-0, 1, 15598-2 ####[facility]ORYCLIA [id number] [place] [address] [place] Creatinine and Glomerular filtration rate.predicted panel (S/P/Bld) 83 mL/min/1.73m??? Normal >=60 [facility] Comment on above: Order Comment: Lele ying Type: BLOOD SPECIMENOrdering Facility: [facility] Address: [address] [place] [address] Result Comment: Aury mated Glomerular Filtration Rate (eGFR) is calculated using the 2020 CKD-EPI creatinine equation. This equation utilizes serum creatinine, sex, and age as parameters. The creatinine assay has traceable calibration to isotope dilution-mass spectrometry. Refer to KDIGO guidelines for clinical interpretation. In patients with unstable renal function, e.g. those with acute kidney injury, the eGFR may not accurately reflect actual GFR. Performed By: #### 2 4321-2, 32556-6, 2776-, ####[facility]ATORYCLIA [id number] [place] [address] [place] Glucose [Mass/Vol] 222 mg/dL High 74-99 [facility] Comment on above: Order Comment: Lele ying Type: BLOOD SPECIMENOrdering Facility: [facility] Address: [address] [place] [address] Result Comment: The [place] [employer] (ADA) provides guidance for cutoff values for fasting glucose and random glucose. The ADA defines fasting as no caloric intake for at least 8 hours. Fasting plasma glucose results between 100 to 125 mg/dL indicate increased risk for diabetes (prediabetes).Fasting plasma glucose results greater than or equal to 126 mg/dL meet the criteria for diagnosis of diabetes. In the absence of unequivocal hyperglycemia, results should be confirmed by repeat testing. In a patient with classic symptoms of hyperglycemia or hyperglycemic crisis, random plasma glucose results greater than or equal to 200 mg/dL meet the criteria for diagnosis of diabetes.Reference: Standards of Medical Care in Diabetes 2016, [place] [employer]. Diabetes Care. 2016.39(Suppl 1). Performed By: #### 2 4321-2, 90909-9, 2776-, ####[facility]ORYCLIA [id number] [place] [id number] [place] Potassium [Moles/Vol] 4.9 mmol/L Normal 3.7-5.1 [facility] Comment on above: Order Comment: Speci men Type: BLOOD SPECIMENOrdering Facility: [facility] Address: [address] [place] [address] Performed By: #### 2 4321-2, 05673-4, 2776-1, ####[facility]ORYCLIA [id number] [address] STATES OF [facility] Sodium [Moles/Vol] 132 mmol/L Low 136-144 [facility] Comment on above: Order Comment: Speci men Type: BLOOD SPECIMENOrdering Facility: [facility] Address: [address] [place] [address] Performed By: #### 2 4321-2, 97891-0, 2776-1, ####[facility]ORYCLIA [id number] [address] [place] [facility] Urea nitrogen [Mass/Vol] 10 mg/dL Normal 9-24 [facility] Comment on above: Order Comment: Speci men Type: BLOOD SPECIMENOrdering Facility: [facility] Address: [address] [place] [address] Performed By: #### 2 4321-2, 29010-0, 2776-09, ####[facility]ORYCLIA [id number] [address] [place] [facility] CBC W Auto Differential pane l (Bld)on 06-04-2024 Basophils (Bld) [#/Vol] 0.00 10*3/uL Normal <0.11 [facility] Comment on above: Order Comment: Speci men Type: BLOOD SPECIMENOrdering Facility: [facility] Address: [address] [place] [address] Performed By: #### 5 7021-8 ####[facility]ORYCLIA [id number] [address] [place] Basophils/100 WBC (Bld) 0.0 % Normal [facility] Comment on above: Order Comment: Speci men Type: BLOOD SPECIMENOrdering Facility: [facility] Address: [address] [place] [address] Performed By: #### 5 7021-8 ####[facility]ORATORYCLIA [id number] [address] Differential cell count method Nom (Bld) Manual Normal [facility] Comment on above: Order Comment: Speci men Type: BLOOD SPECIMENOrdering Facility: [facility] Address: [address] [place] [address] Performed By: #### 5 7021-8 ####[facility]ORYCLIA [id number] [address] STATES [facility] Eosinophils (Bld) [#/Vol] 0.00 10*3/uL Normal <0.46 [facility] Comment on above: Order Comment: Speci men Type: BLOOD SPECIMENOrdering Facility: [facility] Address: [address] [place] [address] Performed By: #### 5 7021-8 ####[facility]ORYCLIA [id number] [address] Eosinophils/100 WBC (Bld) 0.0 % Normal [facility] Comment on above: Order Comment: Speci men Type: BLOOD SPECIMENOrdering Facility: [facility] Address: [address] [place] [address] Performed By: #### 5 7021-8 ####[facility]ATORYCLIA [id number] [address] Erythrocyte distribution width (RBC) [Ratio] 13.3 % Normal 11.5-15.0 [facility] Comment on above: Order Comment: Speci men Type: BLOOD SPECIMENOrdering Facility: [facility] Address: [address] [place] [address] Performed By: #### 5 7021-8 ####[facility]ATORYCLIA [id number] [address] [place] Hematocrit (Bld) [Volume fraction] 43.3 % Normal 39.0-51.0 [facility] Comment on above: Order Comment: Speci men Type: BLOOD SPECIMENOrdering Facility: [facility] Address: [address] [place] [address] Performed By: #### 5 7021-8 ####[facility]ATORYCLIA [id number] [address] OF [facility] Hemoglobin (Bld) [Mass/Vol] 13.7 g/dL Normal 13.0-17.0 [facility] Comment on above: Order Comment: Speci men Type: BLOOD SPECIMENOrdering Facility: [facility] Address: [address] [place] [address] Performed By: #### 5 7021-8 ####[facility]ATORYCLIA [id number] [address] Lymphocytes (Bld) [#/Vol] 0.75 10*3/uL Low 1.00-4.00 [facility] Comment on above: Order Comment: Speci men Type: BLOOD SPECIMENOrdering Facility: [facility] Address: [address] [place] [address] Performed By: #### 5 7021-8 ####[facility]ORYCLIA [id number] [address] Lymphocytes/100 WBC (Bld) 3.0 % Normal [facility] Comment on above: Order Comment: Speci men Type: BLOOD SPECIMENOrdering Facility: [facility] Address: [address] [place] [address] Performed By: #### 5 7021-8 ####[facility]ATORYCLIA [id number] [address] MCH (RBC) [Entitic mass] 30.9 pg Normal 26.0-34.0 [facility] Comment on above: Order Comment: Speci men Type: BLOOD SPECIMENOrdering Facility: [facility] Address: [address] [place] [address] Performed By: #### 5 7021-8 ####[facility]ORYCLIA [id number] [address] [place] MCHC (RBC) [Mass/Vol] 31.6 g/dL Normal 30.5-36.0 [facility] Comment on above: Order Comment: Speci men Type: BLOOD SPECIMENOrdering Facility: [facility] Address: [address] [place] [address] Performed By: #### 5 7021-8 ####[facility]ATORYCLIA [id number] [address] [place] MCV (RBC) [Entitic vol] 97.5 fL Normal 80.0-100.0 [facility] Comment on above: Order Comment: Speci men Type: BLOOD SPECIMENOrdering Facility: [facility] Address: [address] [place] [address] Performed By: #### 5 7021-8 ####[facility]ORYCLIA [id number] [address] [place] Monocytes (Bld) [#/Vol] 2.00 10*3/uL High <0.87 [facility] Comment on above: Order Comment: Speci men Type: BLOOD SPECIMENOrdering Facility: [facility] Address: [address] [place] [address] Performed By: #### 5 7021-8 ####[facility]ORYCLIA [id number] [address] STATES [facility] Monocytes/100 WBC (Bld) 8.0 % Normal [facility] Comment on above: Order Comment: Speci men Type: BLOOD SPECIMENOrdering Facility: [facility] Address: [address] [place] [address] Performed By: #### 5 7021-8 ####[facility]ORYCLIA [id number] [address] [place] Neutrophils (Bld) [#/Vol] 22.28 10*3/uL High 1.45-7.50 [facility] Comment on above: Order Comment: Speci men Type: BLOOD SPECIMENOrdering Facility: [facility] Address: [address] [place] [address] Performed By: #### 5 7021-8 ####[facility]ATORYCLIA [id number] [address] STATES [facility] Neutrophils/100 WBC (Bld) 89.0 % Normal [facility] Comment on above: Order Comment: Speci men Type: BLOOD SPECIMENOrdering Facility: [facility] Address: [address] [place] [address] Performed By: #### 5 7021-8 ####[facility]ORATORYCLIA [id number] [address] [place] Nucleated RBC (Bld) [#/Vol] 10*3/uL Normal <0.01 [facility] Comment on above: Order Comment: Speci men Type: BLOOD SPECIMENOrdering Facility: [facility] Address: [address] [place] [address] Performed By: #### 5 7021-8 ####[facility]ATORYCLIA [id number] [address] [place] Nucleated RBC/100 WBC (Bld) [Ratio] 0.0 /100 WBC Normal [facility] Comment on above: Order Comment: Speci men Type: BLOOD SPECIMENOrdering Facility: [facility] Address: [address] [place] [address] Performed By: #### 5 7021-8 ####[facility]ATORYCLIA [id number] [address] [place] Platelet mean volume (Bld) [Entitic vol] 9.3 fL Normal 9.0-12.7 [facility] Comment on above: Order Comment: Speci men Type: BLOOD SPECIMENOrdering Facility: [facility] Address: [address] [place] [address] Performed By: #### 5 7021-8 ####[facility]ATORYCLIA [id number] [address] OF [place] Platelets (Bld) [#/Vol] 357 10*3/uL Normal 150-400 [facility] Comment on above: Order Comment: Speci men Type: BLOOD SPECIMENOrdering Facility: [facility] Address: [address] [place] [address] Performed By: #### 5 7021-8 ####[facility]ORYCLIA [id number] [address] STATES [facility] Platelets Estimate (Bld) [#/Vol] Adequate Normal [facility] Comment on above: Order Comment: Speci men Type: BLOOD SPECIMENOrdering Facility: [facility] Address: [address] [place] [address] Performed By: #### 5 7021-8 ####[facility]ATORYCLIA [id number] [address] RBC (Bld) [#/Vol] 4.44 10*6/uL Normal 4.20-6.00 [facility] Comment on above: Order Comment: Speci men Type: BLOOD SPECIMENOrdering Facility: [facility] Address: [address] [place] [address] Performed By: #### 5 7021-8 ####[facility]ATORYCLIA [id number] [address] RED CELL MORPH Reviewed: unremarkable Normal [facility] Comment on above: Order Comment: Speci men Type: BLOOD SPECIMENOrdering Facility: [facility] Address: [address] [place] [address] Performed By: #### 5 7021-8 ####[facility]ORYCLIA [id number] [address] OF [place] WBC (Bld) [#/Vol] 25.03 10*3/uL High 3.70-11.00 [facility] Comment on above: Order Comment: Speci men Type: BLOOD SPECIMENOrdering Facility: [facility] Address: [address] [place] [address] Performed By: #### 5 7021-8 ####[facility]ATORYCLIA [id number] [address] WBC Left Shift Ql (Bld) Present Normal [facility] Comment on above: Order Comment: Speci men Type: BLOOD SPECIMENOrdering Facility: [facility] Address: [address], [place] [id number] Performed By: #### 5 7021-8 ####[facility]ATORYCLIA [id number] [place] [address] [place] CBC W/Diff, Automatedon 10-0 PATH REV Reviewed Normal [facility] Comment on above: Result Comment: Leuk ocytosisNeutrophilic left shift.Macrocytic anemia.Clinical correlation necessary.Vernon Nguyen M.D. 06/04/24 AMENDED REPORT 06/04/24 1342 PATH REV previously reported as: December Performed By: #### L 503.6620, L100.0100, L503.6005, L500.2500, L501.4020, M200.1000 ####[facility] [address] [place] [place], [address] [facility] Critical [facility] Transp ort (CCT) -- CHIO DENT JR. ([id number]) 1960 M Date Time Provider Department 06/04/24 JOHN DONATO CCT During your visit today, we recorded the following information about you: John Donato APRN.IRMA 06/04/2024 3:17 AM Signed CRITICAL CARE TRANSPORT MEDICAL CONTROL CONSULT NOTE Patient Name: Chio Dent Jr. Service Date: June 04, 2024 Referring Facility: [facility] Accepting Facility: [facility] REASON FOR TRANSPORT: Higher level trauma services not available at the referring facility. REASON FOR CONSULT: Hypoxia CCT MEDICAL CONTROL CONSULT SUMMARY: History, physical exam findings, and available background patient information from CCT Transport Nurse were reviewed at the time of consult. Pertinent additional information was reviewed as follows: CCT transport request log In brief, Chio Dent Jr. is a 63 year old male with a history, known at time of consult, significant for COPD, IL and CAD who presented tot he ED at [facility] in Cardiac Arrest (Respiratory arrest). ACLS was started with the Mandeep Device prior to arrival. Unknown details of arrest but patient had ROSC. He was intubated and placed on the ventilator A/C VCV Rate 12, TV 400, FIO2 60%, PEEP 5. A CXR was completed which showed multiple R sided rib fractures and a pneumothorax. A pigtail (8f) thoracostomy tube was placed and connected to intermittent suction. Patient was started on Propofol and Fentanyl for sedation and pain. He is being transferred to [facility] for higher level trauma services not available at the referring facility. En route with [facility], patient became hypoxic and hypercapnic with SpO2 77% and ETCO2 56. He was taken off the ventilator and ventilated with a BVM temporarily which increased his SpO2 and decreased his ETCO2. Patient placed back on ventilator on settings below. Patient was given Fetnayl 50mcg IVP for pain control and compliance with the ventilator. Suction increased from intermittent to continuous -20. PLAN: Multiple factors considered including: patient history/condition/trajecto ry/stability, referring and receiving destinations, duration of transport time, medications and therapies available during transport, patient safety, as well as crew capabilities. Orders given for: Ventilator A/C VCV Rate 16, TV 400, FIO2 100%, PEEP 5 Fentanyl 50mcg IV bolus from bag Continuous -20 suction Plan of care and orders confirmed and read back via telephone with [facility] Transport presentation team member, Esvin Weiss RN and Candace West RN SIGNATURE: John Donato APRN.[facility] Acute Care Nurse Practitioner Critical Care Transport Allergies As of Date: 06/04/2024 Noted Allergy Reaction ASPIRIN 06/21/2010 8 - [...] ragweed (April, May and June) Date Reviewed: 06/04/2024 Reviewed by: Makenna Burgos RN - Fully Assessed Reason for Visit: Critical Care Transport [1718] Order(s):CCT ADDITIONAL ORDERS [4050301] Order #: [id number]: 1 STANDING CCT VENT [8376000] Order #: [id number]: 1 STANDING CCT ADDITIONAL ORDERS [0622762] Order #: [id number]: 1 CCT VENT [[id number]] Order #: [id number]: 1 [] fentaNYL 50 mcg bolus from bag/syringe (SUBLIMAZE)Disp: Rfl: Prescriptions as of 06/04/2024 - dvpzkpnqez-wfxwfisn-mtgapr alissa (BREZTRI AEROSPHERE) 160-9-4.8 mcg/actuation HFA aerosol inhaler Inhale 2 Puffs as instructed two times a day. - guaiFENesin (MUCINEX) 600 mg 12 hr tablet Take 2 tablets by mouth two times a day. - predniSONE (DELTASONE) 10 mg tablet As needed per pulmonology - alendronate (FOSAMAX) 70 mg tablet Take 1 tablet by mouth one time a week. Take with a full glass of water, on an empty stomach; do NOT lie down for 30minutes. - atorvastatin (LIPITOR) 20 mg tablet Take 1 tablet by mouth daily at bedtime. For cholesterol. - lisinopril 2.5 mg tablet Take 2.5 mg by mouth once daily. - gabapentin (NEURONTIN) 600 mg tablet Take 1 tablet by mouth daily at bedtime. VA medication. - fluticasone (FLONASE) 50 mcg/actuation nasal spray USE 2 SPRAYS IN EACH NOSTRIL ONCE DAILY. RINSE MOUTH AFTER USE. - albuterol HFA (PROAIR HFA) 90 mcg/actuation inhaler Inhale 2 Puffs as instructed every 4 hours as needed. - montelukast (SINGULAIR) 10 mg tablet Take 1 tablet by mouth once daily. - cetirizine (ZYRTEC) 10 mg tablet Take 1 tablet (more content not included)... Normal [facility] CONSULTon 06-04-2024 CONSULT Normal [facility] CT BRAIN WO IVCONon 06-04-[address] BRAIN WO IVCON Normal [facility] CT CHEST W IVCONon 4 CT CHEST W IVCON Normal [facility] ED NOTEon 06-04-2024 ED NOTE HNO ID: [id number] Author: MAKENNA BURGOS RN Service: ? Author Type: Registered Nurse Type: ED Notes Filed: 06/04/2024 02:40 Note Text: ABG sent Normal [facility] ED NOTE HNO ID: [id number] Author: MAKENNA BURGOS, MARION Service: ? Author Type: Registered Nurse Type: ED Notes Filed: 06/04/2024 02:22 Note Text: New chest tube placed by surgery resident at this time Normal [facility] ED NOTE HNO ID: [id number] Author: MAKENNA BURGOS RN Service: ? Author Type: Registered Nurse Type: ED Notes Filed: 06/04/2024 04:26 Note Text: ED physicians, RT, and Dr. Brown at bedside Normal [facility] ED NOTE Normal [facility] ED NOTE HNO ID: [id number] Author: MAKENNA BURGOS RN Service: ? Author Type: Registered Nurse Type: ED Notes Filed: 06/04/2024 04:25 Note Text: The remaining versed and fentanyl was disposed of/wasted by this RN and ED pharmacist Normal [facility] ED NOTE HNO ID: [id number] Author: MAKENNA BURGOS RN Service: ? Author Type: Registered Nurse Type: ED Notes Filed: 06/04/2024 00:31 Note Text: Versed drip stopped per verbal order from Dr. Gao and Dr. Brown. Fentanyl drip infusing at 200mcg/hr. Normal [facility] ED NOTE Normal [facility] ED PROV NOTEon 06-04-2024 ED PROV NOTE Normal [facility] ED PROV NOTE Normal [facility] HISTORY PHYSICALon HISTORY PHYSICAL Normal [facility] Hepatic function 2000 panelo n 06-04-2024 Albumin [Mass/Vol] 3.9 g/dL Normal 3.9-4.9 [facility] Comment on above: Order Comment: Speci men Type: BLOOD SPECIMENOrdering Facility: [facility] Address: [address] [place] [address] Performed By: #### 2 4321-2, 22997-6, 2776-09, ####[facility]ORYCLIA [id number] [address] [place] ALP [Catalytic activity/Vol] 111 U/L Normal 38-113 [facility] Comment on above: Order Comment: Speci men Type: BLOOD SPECIMENOrdering Facility: [facility] Address: [address] [place] [address] Performed By: #### 2 4321-2, 92532-2, 2776-09, ####[facility]ORATORYCLIA [id number] [place] [address] [place] ALT With P-5'-P [Catalytic activity/Vol] 245 U/L High 10-54 [facility] Comment on above: Order Comment: Speci men Type: BLOOD SPECIMENOrdering Facility: [facility] Address: [address] [place] [address] Performed By: #### 2 4321-2, 63288-2, 2776-09, ####[facility]ATORYCLIA [id number] [place] [address] [place] AST With P-5'-P [Catalytic activity/Vol] 407 U/L High 14-40 [facility] Comment on above: Order Comment: Speci men Type: BLOOD SPECIMENOrdering Facility: [facility] Address: [address] [place] [address] Performed By: #### 2 4321-2, 61547-9, 2776-09, ####[facility]ATORYCLIA [id number] [address] [place] Bilirubin [Mass/Vol] 0.3 mg/dL Normal 0.2-1.3 [facility] Comment on above: Order Comment: Speci men Type: BLOOD SPECIMENOrdering Facility: [facility] Address: [address] [place], [place] [address] Performed By: #### 2 4321-2, 43948-1, 2776-09, ####[facility]ATORYCLIA [id number] [place] [address] [place] Bilirubin.conjugated [Mass/Vol] mg/dL Normal <0.2 [facility] Comment on above: Order Comment: Speci men Type: BLOOD SPECIMENOrdering Facility: [facility] Address: [address] [place] [address] Performed By: #### 2 4321-2, 14082-4, 2776-09, ####[facility]ATORYCLIA [id number] [address] [place] Protein [Mass/Vol] 6.4 g/dL Normal 6.3-8.0 [facility] Comment on above: Order Comment: Speci men Type: BLOOD SPECIMENOrdering Facility: [facility] Address: [address] [place] [address] Performed By: #### 2 4321-2, 32660-4, 2776-09, ####[facility]ATORYCLIA [id number] [place] [address] [place] Magnesium SerPl-mCncon 06-04 Magnesium [Mass/Vol] 2.2 mg/dL Normal 1.7-2.3 [facility] Comment on above: Order Comment: Speci men Type: BLOOD SPECIMENOrdering Facility: [facility] Address: [address] [place] [address] Performed By: #### 2 4321-2, 56162-6, 27703-02, ####[facility]ATORYCLIA [id number] [place] [address] [place] NUTRITIONon 06-04-2024 NUTRITION Normal [facility] PT panel Coag (PPP)on 2023 INR Coag (PPP) [Relative time] 1.1 {INR} Normal 0.9-1.3 [facility] Comment on above: Order Comment: Lele ying Type: BLOOD SPECIMENOrdering Facility: [facility] Address: [address] [place] [address] Result Comment: Abril min K Antagonist (VKA) Therapeutic Range: INR 2 to 3 (Target INR of 2.5)Note: For patients treated with VKA drugs, such as warfarin, the [employer] 2012 Guideline recommends a therapeutic INR range of 2 to 3 (target INR of 2.5). This recommendation includes high-risk patients with antiphospholipid syndrome with previous arterial or venous thromboembolism, current-generation mechanical or bioprosthetic aortic heart valve replacement.Note: Patients with mechanical aortic valve replacement and additional risk factors for thromboembolic events (atrial fibrillation, previous thromboembolism, LV dysfunction, hypercoagulable conditions) or an older generation mechanical AVR (i.e., ball in-Cage) or any mechanical MVR should have a INR therapeutic range of 2.5 to 3.5 (target INR of 3).Naun GH, et al. Chest 2012, 141:7S-47SNishimura RA, et al. [facility] 2017, 70: 252-289 Performed By: #### 3 4528-0, 88279-4 ####[facility]ATORYCLIA [id number] [place] [address] [place] PT Coag (PPP) [Time] 11.5 s Normal 9.7-13.0 [facility] Comment on above: Order Comment: Lele ying Type: BLOOD SPECIMENOrdering Facility: [facility] Address: [address] [place] [address] Performed By: #### 3 4528-0, 45186-3 ####[facility] LABORATORYCLIA [id number] [place] [id number] [place] Phosphate SerPl-mCncon 06-04 Phosphate [Mass/Vol] 6.1 mg/dL High 2.7-4.8 [facility] Comment on above: Order Comment: Lele ying Type: BLOOD SPECIMENOrdering Facility: [facility] Address: [address] [place] [address] Performed By: #### 2 4321-2, 08222-2, 2777-1, 21345-4 ####[facility]ATORYCLIA [id number] [address] OF [facility] STAPHYLOCOCCUS AUREUS AND MR SA SCREEN, PCR, NASALon 06-04-2024 S. aureus and MRSA panel MANJU+probe (Nose) Methicillin-SUSCEPTIBLE Staphylococcus aureus Detected Abnormal Not Detected [facility] Comment on above: Order Comment: Speci men Type: SWABOrdering Facility: [facility] Address: [address] [place] [address] Performed By: #### S APCR ####[facility]ATORYCLIA [id number] [place] [address] [place] US DVT LOWER BILon US DVT LOWER SAGAR Normal [facility] XR CHEST 1V FRONTALon 2023 XR CHEST 1V FRONTAL Normal [facility] XR CHEST 1V FRONTAL Normal [facility] XR CHEST 1V FRONTAL Normal [facility] XR CHEST 1V FRONTAL Normal [facility] aPTT PPPon 06-04-2024 aPTT Coag (PPP) [Time] 32.5 s High 23.0-32.4 [facility] Comment on above: Order Comment: Speci men Type: BLOOD SPECIMENOrdering Facility: [facility] Address: [address] [place] [address] Performed By: #### 3 4528-0, 74840-2 ####[facility]ATORYCLIA [id number] [address] [place] 12 Lead EKGon 06-03-2024 12 Lead EKG Normal [facility] BNP,B-Type NATRIURETIC PEPTI Enma 06-03-2024 Natriuretic peptide B (Bld) [Mass/Vol] 50.9 pg/mL Normal 0-100 [facility] Comment on above: Performed By: #### L 503.6620, L100.0100, L503.6005, L500.2500, L501.4020, M200.1000 ####[facility] [address] [place], [address] Basic Metabolic Profile (BMP )on 06-03-2024 BUN/CRE 5.6 RATIO Low 10-20 [facility] Comment on above: Order Comment: 'TROP ' Serial specimen #1, #2 or #3: 1 Performed By: #### L 503.6620, L100.0100, L503.6005, L500.2500, L501.4020, M200.1000 ####[facility] [address] [place], [address] CA,Total 8.2 mg/dL Low 8.5-10.1 [facility] Comment on above: Order Comment: 'TROP ' Serial specimen #1, #2 or #3: 1 Performed By: #### L 503.6620, L100.0100, L503.6005, L500.2500, L501.4020, M200.1000 ####[facility] [address] [place], [address] Chloride [Moles/Vol] 106 mmol/L Normal 98-107 [facility] Comment on above: Order Comment: 'TROP ' Serial specimen #1, #2 or #3: 1 Performed By: #### L 503.6620, L100.0100, L503.6005, L500.2500, L501.4020, M200.1000 ####[facility] [address] [place], [address] CO2 [Moles/Vol] 20.0 mmol/L Low 21.0-32.0 [facility] Comment on above: Order Comment: 'TROP ' Serial specimen #1, #2 or #3: 1 Performed By: #### L 503.6620, L100.0100, L503.6005, L500.2500, L501.4020, M200.1000 ####[facility] [address] [place], [address] Creatinine [Mass/Vol] 1.24 mg/dL Normal 0.70-1.30 [facility] Comment on above: Order Comment: 'TROP ' Serial specimen #1, #2 or #3: 1 Result Comment: The validity of the calculated GFR GFRAA in patients over70 years has not been determined. Clinical correlation isessential. Performed By: #### L 503.6620, L100.0100, L503.6005, L500.2500, L501.4020, M200.1000 ####[facility] [address] [place], [address] ECRCL 65.67 ml/min Normal [facility] Comment on above: Order Comment: 'TROP ' Serial specimen #1, #2 or #3: 1 Performed By: #### L 503.6620, L100.0100, L503.6005, L500.2500, L501.4020, M200.1000 ####[facility] [address] [place], [address] EST GFR - AA 76 mL/min Normal >60 [facility] Comment on above: Order Comment: 'TROP ' Serial specimen #1, #2 or #3: 1 Result Comment: Afri can [place] GFR Calc Performed By: #### L 503.6620, L100.0100, L503.6005, L500.2500, L501.4020, M200.1000 ####[facility] [address] [place], [address] GAP 12 Normal 5-15 [facility] Comment on above: Order Comment: 'TROP ' Serial specimen #1, #2 or #3: 1 Performed By: #### L 503.6620, L100.0100, L503.6005, L500.2500, L501.4020, M200.1000 ####[facility] [address] [place], [address] GFR/1.73 sq M.predicted among non-blacks MDRD (S/P/Bld) [Vol rate/Area] 63 mL/min/{1.73_m2} Normal >60 [facility] Comment on above: Order Comment: 'TROP ' Serial specimen #1, #2 or #3: 1 Result Comment: Non- GFR Calc Performed By: #### L 503.6620, L100.0100, L503.6005, L500.2500, L501.4020, M200.1000 ####[facility] [address] [place], [address] Glucose [Mass/Vol] 285 mg/dL High 74-106 [facility] Comment on above: Order Comment: 'TROP ' Serial specimen #1, #2 or #3: 1 Result Comment: Gluc ose result greater than or equal to 200 mg/dLsuggests DIABETES MELLITUS per A.D.A. criteria. Performed By: #### L 503.6620, L100.0100, L503.6005, L500.2500, L501.4020, M200.1000 ####[facility] [address] [place], [address] Potassium [Moles/Vol] 4.0 mmol/L Normal 3.5-5.1 [facility] Comment on above: Order Comment: 'TROP ' Serial specimen #1, #2 or #3: 1 Performed By: #### L 503.6620, L100.0100, L503.6005, L500.2500, L501.4020, M200.1000 ####[facility] [address] [place], [address] Sodium [Moles/Vol] 139 mmol/L Normal 136-145 [facility] Comment on above: Order Comment: 'TROP ' Serial specimen #1, #2 or #3: 1 Performed By: #### L 503.6620, L100.0100, L503.6005, L500.2500, L501.4020, M200.1000 ####[facility] [address] [place], [address] Urea nitrogen [Mass/Vol] 7 mg/dL Normal 7-18 [facility] Comment on above: Order Comment: 'TROP ' Serial specimen #1, #2 or #3: 1 Performed By: #### L 503.6620, L100.0100, L503.6005, L500.2500, L501.4020, M200.1000 ####[facility] [address] [place], [address] Blood Gases by [facility] 024 EDIN TEST Positive Normal [facility] Comment on above: Performed By: #### L 9000.0800 ####[facility] [address] [place], [address] Base excess Calc (Bld) [Moles/Vol] -6 mmol/L Low -2 to +2 [facility] Comment on above: Performed By: #### L 9000.0800 ####[facility] [address] [place], [address] Blood Gas Type ART Normal [facility] Comment on above: Performed By: #### L 9000.0800 ####[facility] [address] [place], [address] CO2 [Moles/Vol] 26 mmol/L Normal [facility] Comment on above: Performed By: #### L 9000.0800 ####[facility] [facility] [place] [address] [place], [address] FI02 40.0 Normal [facility] [place] Comment on above: Performed By: #### L 9000.0800 ####[facility] [place] [address] [place], [address] HCO3 (Bld) [Moles/Vol] 23.2 mmol/L Normal 22-26 [facility] [place] Comment on above: Performed By: #### L 9000.0800 ####[facility] [place] [address] [place], [address] Mode AC Normal [facility] [place] Comment on above: Performed By: #### L 9000.0800 ####[facility] [place] [address] [place], [address] O2 Delivery Dev Adult Vent Normal [facility] [place] Comment on above: Performed By: #### L 9000.0800 ####[facility] [place] [address] [place], [address] pCO2 72.4 mmHg Invalid Interpretation Code 35-45 [facility] [place] Comment on above: Performed By: #### L 9000.0800 ####[facility] [place] [address] [place], [address] PEEP 5 Normal [facility] [place] Comment on above: Performed By: #### L 9000.0800 ####[facility] [place] [address] [place], [address] pH (Bld) 7.12 [pH] Invalid Interpretation Code 7.35-7.45 [facility] [place] Comment on above: Performed By: #### L 9000.0800 ####[facility] [place] [address] [place], [address] PO2 67 mmHG Low 75-100 [facility] [place] Comment on above: Performed By: #### L 9000.0800 ####[facility] [place] [address] [place], [address] Read Back By Yes Normal [facility] [place] Comment on above: Performed By: #### L 9000.0800 ####[facility] [place] [address] [place], [address] Results To JOE Normal [facility] [place] Comment on above: Performed By: #### L 9000.0800 ####[facility] [place] [address] [place], [address] RR 18 Normal [facility] [place] Comment on above: Performed By: #### L 9000.0800 ####[facility] [place] [address] [place], [address] SITE R Radial Normal [facility] [place] Comment on above: Performed By: #### L 9000.0800 ####[facility] [place] [address] [place], [address] SO2 85 Low 95-99 [facility] [place] Comment on above: Performed By: #### L 9000.0800 ####[facility] [place] [address] [place], [address] Time Given 21:10:55 [facility] Comment on above: Performed By: #### L 9000.0800 ####[facility] [place] [address] [place], [address] Vt 400.0 mL Normal [facility] [place] Comment on above: Performed By: #### L 9000.0800 ####[facility] [place] [address] [place], [address] EDIN TEST Positive Normal [facility] [place] Comment on above: Performed By: #### L 9000.0800 ####[facility] [place] [address] [place], [address] Base excess Calc (Bld) [Moles/Vol] -12 mmol/L Low -2 to +2 [facility] [place] Comment on above: Performed By: #### L 9000.0800 ####[facility] [place] [address] [place], [address] Blood Gas Type ART Normal [facility] [place] Comment on above: Performed By: #### L 9000.0800 ####[facility] [place] [address] [place], [address] CO2 [Moles/Vol] 23 mmol/L Normal [facility] [place] Comment on above: Performed By: #### L 9000.0800 ####[facility] [place] [address] [place], [address] FI02 100.0 Normal [facility] [place] Comment on above: Performed By: #### L 9000.0800 ####[facility] [place] [address] [place], [address] HCO3 (Bld) [Moles/Vol] 19.9 mmol/L Low 22-26 [facility] [place] Comment on above: Performed By: #### L 9000.0800 ####[facility] [place] [address] [place], [address] Mode AC Normal [facility] [place] Comment on above: Performed By: #### L 9000.0800 ####[facility] [place] [address] [place], [address] O2 Delivery Dev Adult Vent Normal [facility] [place] Comment on above: Performed By: #### L 9000.0800 ####[facility] [place] [address] [place], [address] pCO2 90.2 mmHg Invalid Interpretation Code 35-45 [facility] [place] Comment on above: Performed By: #### L 9000.0800 ####[facility] [place] [address] [place], [address] PEEP 5 Normal [facility] [place] Comment on above: Performed By: #### L 9000.0800 ####[facility] [place] [address] [place], [address] pH (Bld) 6.95 [pH] Invalid Interpretation Code 7.35-7.45 [facility] [place] Comment on above: Performed By: #### L 9000.0800 ####[facility] [place] [address] [place], [address] PO2 368 mmHG Invalid Interpretation Code 75-100 [facility] [place] Comment on above: Performed By: #### L 9000.0800 ####[facility] [place] [address] [place], [address] Read Back By Yes [facility] Comment on above: Performed By: #### L 8999.0800 ####[facility] [place] [address] [place], [address] Results To JOE Normal [facility] [place] Comment on above: Performed By: #### L 8999.0800 ####[facility] [place] [address], [address] RR 12 Normal [facility] [place] Comment on above: Performed By: #### L 0.0800 ####[facility] [place] [address] [place], [address] SITE L Radial Normal [facility] [place] Comment on above: Performed By: #### L 8999.0800 ####[facility] [place] [address] [place], [address] SO2 100 High 95-99 [facility] [place] Comment on above: Performed By: #### L 8999.0800 ####[facility] [place] [address] [place], [address] Time Given 19:42:41 [facility] Comment on above: Performed By: #### L 8999.0800 ####[facility] [place] [address] [place], [address] Vt 450.0 mL [facility] Comment on above: Performed By: #### L 8999.0800 ####[facility] [place] [address] [place], [address] CTA Chest W/WO Contraston CTA Chest W/WO Contrast Normal [facility] CXR for Line Placementon CXR for Line Placement Normal [facility] Chest 1 View (Portable)on Chest 1 View (Portable) Normal [facility] Chest 1 View (Portable) Normal [facility] Emergency Department Summary on 06-03-2024 Emergency Department Summary Normal [facility] [place] L501.4020on 06-03-2024 TROPONIN-I HS 22 pg/mL Normal 3.0-78.0 [facility] [place] Comment on above: Order Comment: 'TROP ' Serial specimen #1, #2 or #3: 1 Result Comment: Blayne delatorre Note: New Test Units and Gender Specific Reference Ranges. For more information see Policy Stat Procedure [place] High Sensitivity Troponin (TNIH) and attachments. Performed By: #### L 503.6620, L100.0100, L503.6005, L500.2500, L501.4020, M200.1000 ####[facility] [place] [address] [place], [address] Lactic Acidon 06-03-2024 Lactate [Moles/Vol] 6.7 mmol/L Invalid Interpretation Code 0.4-1.9 [facility] [place] Comment on above: Order Comment: Y Result Comment: Crit ical Result(s) Called at: 20:00:52 06/03/2024 by:BAYLEE VALENCIA TO KRAIG. Results read back by same. Performed By: #### L 503.6620, L100.0100, L503.6005, L500.2500, L501.4020, M200.1000 ####[facility] [place] [address] [place], [place], [address] M100.678on 06-03-2024 M100.678 Pending SARS-CoV-2 (COVID 19) Negative INFLUENZA A Negative INFLUENZA B Negative RSV PCR Negative Normal [facility] [place] Comment on above: Performed By: #### M 100.678 ####[facility] [place] [address] [place], [place], [address] CNOVon 06-02-2024 CNOV Office Visit (INTMWS ) -- CHIO DENT JR. 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 is a 63 year old male here for a Medicare wellness visit. Medicare Health Risk Assessment General Health Good Exercise: Minutes/Day 0 min Exercise: Days/Week On average, how many days per week do you engage in moderate to strenuous exercise (like a brisk walk)?: 0 days (stays very active but no routine aerobic exercise) Alcohol: Daily Use Never Alcohol: Drinks/Day Patient does not drink Alcohol: 6 or more drinks Never Feel off balance No Concerns: Teeth/Dentures No Concerns: Sexual function No Troubled by feelings None of the above Frequency: Eating healthy diet More than half the days ADLs requiring help None of the above Safety precautions in home/vehicle No Smoke, vape, chews tobacco Yes, but I'm not ready to quit Difficulty hearing No Difficulty seeing No Current Providers Specialists: I have reviewed specialist-related care of the patient in the medical record. Current care team: Patient Care Team: Alexey Mayberry MD as PCP - General (Internal Medicine) Outside specialists seen: [facility], [facility], [place] [facility] Medical/Family history review Reviewed and updated problem list, medical/surgical/family/so cial history, medications, and allergies. Opioid use review Opioid Medications (last 90 days) No data to display Anxiety/Depression screening PHQ-2 Score: 0 TAMRA-2 Score: 0 Recommendation: no further intervention at this time Cognitive screening Mini Cog Score: 5 Cognitive screening reviewed and No further action needed (score 3-5). Functional Observation Was the patient's Timed Up AND Go test unsteady or >= 12 seconds? No Advance Care Planning Surrogate decision maker and/or advance care plan documented Measurements BP 108/76 Pulse 87 Resp 24 Ht 166 cm (5' 5.35) Wt 67.4 kg (148 lb 9.4 oz) SpO2 96% BMI 24.46 kg/m? Vision Screening: Follows with optometry/ophthalmology Assessment/Plan Medicare annual wellness visit, subsequent (Z00.00) - Counseled on healthy diet and regular exercise - Fall avoidance information provided - Personalized prevention plan provided - Smoking cessation encouraged; discussed risks to health and quitting strategies. Patient is not ready to quit Additional Concerns The following concerns were also discussed with the patient: Patient gets most of his care through the [place] and his specialists including routine labs, screenings and medications. Denies any concerns today. He is taking all medications as prescribed without side effects. He has been dealing with frequent COPD exacerbations for the past few months. He will follow-up with pulmonology for this. 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 Checking BP at home with average int he 100's/70's. BP 108/76 Pulse 87 Resp 24 Ht 166 cm (5' 5.35) Wt 67.4 kg (148 lb 9.4 oz) SpO2 96% BMI 24.46 kg/m? Physical Exam Vitals reviewed. Constitutional: Appearance: Normal appearance. Cardiovascular: Rate and Rhythm: Normal rate and regular rhythm. Heart sounds: Normal heart sounds. No murmur heard. Pulmonary: Effort: Pulmonary effort is normal. Breath sounds: Decreased breath sounds (throughout) and wheezing (diffusely) present. Musculoskeletal: Right lower leg: No edema. Left lower leg: No edema. Skin: General: Skin is warm and dry. Neurological: Mental Status: He is alert. ASSESSMENT/PLAN: 1. Medicare annual wellness visit, subsequent - ICD9: V70.0, ICD10: Z00.00 (primary diagnosis) See medicare wellness plan 2. Primary hypertension - ICD9: 401.9, ICD10: I10 - Controlled - Continue current medications - Recommend home blood pressure monitoring, to bring results to next visit - Encouraged sodium restriction, DASH or Mediterranean diet 3. Coronary artery disease involving [place] heart without angina pectoris, unspecified vessel or lesion type - ICD9: 414.01, ICD10: I25.10 Stable, continue with cardiology follow-up and recommendations 4. Hyperlipidemia, unspecified hyperlipidemia type - ICD9: 272.4, ICD10: E78.5 - Controlled 5. Chronic obstructive pulmonary disease, unspecified COPD type (HCC) - ICD9: 496, ICD10: J44.9 Frequent exacerbations recently, follow-up with pulmonology as scheduled 6. Current smoker - ICD9: 305.1, ICD10: F17.200 No desire to quit at this time 7. Other osteoporosis without current pathological fracture - ICD9: 733.09, (more content not included)... Normal [facility] 12 Lead EKGon 05-04-2024 12 Lead EKG Normal [facility] [place] Basic Metabolic Profile (BMP )on 05-04-2024 BUN/CRE 15.1 RATIO Normal 10-20 [facility] [place] Comment on above: Order Comment: 'TROP ' Serial specimen #1, #2 or #3: 1 Performed By: #### L 100.0100, L501.4020, L500.2500 ####[facility] [place] [address] [place], [address] CA,Total 9.2 mg/dL Normal 8.5-10.1 [facility] [place] Comment on above: Order Comment: 'TROP ' Serial specimen #1, #2 or #3: 1 Performed By: #### L 100.0100, L501.4020, L500.2500 ####[facility] [place] [address] [place], [address] Chloride [Moles/Vol] 105 mmol/L Normal 98-107 [facility] Comment on above: Order Comment: 'TROP ' Serial specimen #1, #2 or #3: 1 Performed By: #### L 100.0100, L501.4020, L500.2500 ####[facility] [place] [address] [place], [address] CO2 [Moles/Vol] 24.0 mmol/L Normal 21.0-32.0 [facility] [place] Comment on above: Order Comment: 'TROP ' Serial specimen #1, #2 or #3: 1 Performed By: #### L 100.0100, L501.4020, L500.2500 ####[facility] [place] [address] [place], [address] Creatinine [Mass/Vol] 0.93 mg/dL Normal 0.70-1.30 [facility] Comment on above: Order Comment: 'TROP ' Serial specimen #1, #2 or #3: 1 Result Comment: The validity of the calculated GFR GFRAA in patients over70 years has not been determined. Clinical correlation isessential. Performed By: #### L 100.0100, L501.4020, L500.2500 ####[facility] [place] [address] [place], [address] EST GFR - AA 106 mL/min Normal >60 [facility] [place] Comment on above: Order Comment: 'TROP ' Serial specimen #1, #2 or #3: 1 Result Comment: Afri can [place] GFR Calc Performed By: #### L 100.0100, L501.4020, L500.2500 ####[facility] [place] [address] [place], [address] GAP 6 Normal 5-15 [facility] [place] Comment on above: Order Comment: 'TROP ' Serial specimen #1, #2 or #3: 1 Performed By: #### L 100.0100, L501.4020, L500.2500 ####[facility] [place] [address] [place], [address] GFR/1.73 sq M.predicted among non-blacks MDRD (S/P/Bld) [Vol rate/Area] 88 mL/min/{1.73_m2} Normal >60 [facility] [place] Comment on above: Order Comment: 'TROP ' Serial specimen #1, #2 or #3: 1 Result Comment: Non- GFR Calc Performed By: #### L 100.0100, L501.4020, L500.2500 ####[facility] [place] [address] [place], [address] Glucose [Mass/Vol] 128 mg/dL High 74-106 [facility] Comment on above: Order Comment: 'TROP ' Serial specimen #1, #2 or #3: 1 Result Comment: Fast ing Glucose result greater than or equal to 126 mg/dLsuggests DIABETES MELLITUS per A.D.A. criteria. Performed By: #### L 100.0100, L501.4020, L500.2500 ####[facility] [place] [address] [place], [address] Potassium [Moles/Vol] 5.3 mmol/L High 3.5-5.1 [facility] Comment on above: Order Comment: 'TROP ' Serial specimen #1, #2 or #3: 1 Result Comment: Mode rate Hemolysis, Result may be falsely increased. Performed By: #### L 100.0100, L501.4020, L500.2500 ####[facility] [place] [address] [place], [address] Sodium [Moles/Vol] 135 mmol/L Low 136-145 [facility] Comment on above: Order Comment: 'TROP ' Serial specimen #1, #2 or #3: 1 Performed By: #### L 100.0100, L501.4020, L500.2500 ####[facility] [place] [address] [place], [address] Urea nitrogen [Mass/Vol] 14 mg/dL Normal 7-18 [facility] [place] Comment on above: Order Comment: 'TROP ' Serial specimen #1, #2 or #3: 1 Performed By: #### L 100.0100, L501.4020, L500.2500 ####[facility] [place] [address] [place], [address] CBC W/Diff, Automatedon 09-0 2-2023 Absolute Lymph 0.96 X10 3/uL Normal 0.83-4.51 [facility] [place] Comment on above: Performed By: #### L 100.0100, L501.4020, L500.2500 ####[facility] [place] [address] [place], [address] Absolute Neut 3.9 X10 3/uL Normal 2.0-7.7 [facility] [place] Comment on above: Performed By: #### L 100.0100, L501.4020, L500.2500 ####[facility] [place] [address] [place], [address] Basophils/100 WBC (Bld) 0.8 % Normal 0-1 [facility] [place] Comment on above: Performed By: #### L 100.0100, L501.4020, L500.2500 ####[facility] [place] [address] [place], [address] Eosinophils/100 WBC (Bld) 6.2 % High 0-5 [facility] [place] Comment on above: Performed By: #### L 100.0100, L501.4020, L500.2500 ####[facility] [place] [address] [place], [address] Erythrocyte distribution width (RBC) [Ratio] 13.5 % Normal 11.6-14.6 [facility] [place] Comment on above: Performed By: #### L 100.0100, L501.4020, L500.2500 ####[facility] [place] [address] [place], [address] Hematocrit (Bld) [Volume fraction] 45.0 % Normal 40-54 [facility] [place] Comment on above: Performed By: #### L 100.0100, L501.4020, L500.2500 ####[facility] [place] [address] [place], [address] Hemoglobin (Bld) [Mass/Vol] 14.7 g/dL Normal 13.0-16.5 [facility] [place] Comment on above: Performed By: #### L 100.0100, L501.4020, L500.2500 ####[facility] [place] [address] [place], [address] IG% 1.100 High 0.0-0.9 [facility] [place] Comment on above: Result Comment: IG% - Immature Granulocytes (promyelocytes, myelocytes andmetamyelocytes) > 1% indicates that a LEFT SHIFT is Present. Performed By: #### L 100.0100, L501.4020, L500.2500 ####[facility] [place] [address] [place], [address] Lymphocytes/100 WBC (Bld) 15.8 % Low 19-41 [facility] [place] Comment on above: Performed By: #### L 100.0100, L501.4020, L500.2500 ####[facility] [place] [address] [place], [address] MCH (RBC) [Entitic mass] 29.9 pg Normal 27.0-32.0 [facility] [place] Comment on above: Performed By: #### L 100.0100, L501.4020, L500.2500 ####[facility] [address] [place], [address] MCHC (RBC) [Mass/Vol] 32.7 g/dL Normal 32-36 [facility] Comment on above: Performed By: #### L 100.0100, L501.4020, L500.2500 ####[facility] [address] [place], [address] MCV (RBC) [Entitic vol] 91.5 fL Normal 80-94 [facility] [place] Comment on above: Performed By: #### L 100.0100, L501.4020, L500.2500 ####[facility] [place] [address] [place], [address] Monocytes/100 WBC (Bld) 11.7 % High 0-10 [facility] [place] Comment on above: Performed By: #### L 100.0100, L501.4020, L500.2500 ####[facility] [place] [address] [place], [address] Neutrophils/100 WBC (Bld) 64.4 % Normal 47-70 [facility] [place] Comment on above: Performed By: #### L 100.0100, L501.4020, L500.2500 ####[facility] [address] [place], [address] Nucleated RBC (Bld) [#/Vol] 0 10*3/uL Normal 0-5 [facility] Comment on above: Performed By: #### L 100.0100, L501.4020, L500.2500 ####[facility] [address] [place], [address] Platelet mean volume (Bld) [Entitic vol] 9.3 fL Normal 6.2-12.0 [facility] Comment on above: Performed By: #### L 100.0100, L501.4020, L500.2500 ####[facility] [address] [place], [address] Platelets (Bld) [#/Vol] 300 10*3/uL Normal 150-450 [facility] Comment on above: Performed By: #### L 100.0100, L501.4020, L500.2500 ####[facility] [address] [place], [address] RBC (Bld) [#/Vol] 4.92 10*6/uL Normal 4.6-6.2 [facility] Comment on above: Performed By: #### L 100.0100, L501.4020, L500.2500 ####[facility] [address] [place], [address] RDW SD 45.9 fl High 35.1-43.9 [facility] Comment on above: Performed By: #### L 100.0100, L501.4020, L500.2500 ####[facility] [address] [place], [address] WBC (Bld) [#/Vol] 6.1 10*3/uL Normal 4.4-11.0 [facility] Comment on above: Performed By: #### L 100.0100, L501.4020, L500.2500 ####[facility] [address] [place], [address] Chest PA and Lateralon 05-04 Chest PA and Lateral Normal [facility] Emergency Department Summary on 05-04-2024 Emergency Department Summary Normal [facility] L501.4020on 05-04-2024 TROPONIN-I HS 9 pg/mL Normal 3.0-78.0 [facility] Comment on above: Order Comment: 'TROP ' Serial specimen #1, #2 or #3: 1 Result Comment: Blayne delatorre Note: New Test Units and Gender Specific Reference Ranges. For more information see Policy Stat Procedure [place] High Sensitivity Troponin (TNIH) and attachments. Performed By: #### L 100.0100, L501.4020, L500.2500 ####[facility] [address] [place], [address] M100.019on 05-04-2024 M100.019 Negative Normal [facility] Comment on above: Performed By: #### M 100.019 ####[facility] [address] [place], [address] 12 Lead EKGon 04-14-2024 12 Lead EKG Normal [facility] Basic Metabolic Profile (BMP )on 04-14-2024 BUN/CRE 8.1 RATIO Low 10-20 [facility] Comment on above: Order Comment: 'TROP ' Serial specimen #1, #2 or #3: 1 Performed By: #### L 100.0100, L500.2500, L501.4020 ####[facility] [address] [place], [address] CA,Total 9.2 mg/dL Normal 8.5-10.1 [facility] Comment on above: Order Comment: 'TROP ' Serial specimen #1, #2 or #3: 1 Performed By: #### L 100.0100, L500.2500, L501.4020 ####[facility] [address] [place], [address] Chloride [Moles/Vol] 104 mmol/L Normal 98-107 [facility] Comment on above: Order Comment: 'TROP ' Serial specimen #1, #2 or #3: 1 Performed By: #### L 100.0100, L500.2500, L501.4020 ####[facility] [address] [place], [address] CO2 [Moles/Vol] 27.0 mmol/L Normal 21.0-32.0 [facility] Comment on above: Order Comment: 'TROP ' Serial specimen #1, #2 or #3: 1 Performed By: #### L 100.0100, L500.2500, L501.4020 ####[facility] [address] [place], [address] Creatinine [Mass/Vol] 0.86 mg/dL Normal 0.70-1.30 [facility] Comment on above: Order Comment: 'TROP ' Serial specimen #1, #2 or #3: 1 Result Comment: The validity of the calculated GFR GFRAA in patients over70 years has not been determined. Clinical correlation isessential. Performed By: #### L 100.0100, L500.2500, L501.4020 ####[facility] [address] [place], [address] ECRCL 86.16 ml/min Normal [facility] Comment on above: Order Comment: 'TROP ' Serial specimen #1, #2 or #3: 1 Performed By: #### L 100.0100, L500.2500, L501.4020 ####[facility] [address] [place], [address] EST GFR - AA 116 mL/min Normal >60 [facility] Comment on above: Order Comment: 'TROP ' Serial specimen #1, #2 or #3: 1 Result Comment: Afri can [place] GFR Calc Performed By: #### L 100.0100, L500.2500, L501.4020 ####[facility] [address] [place], [address] GAP 6 Normal 5-15 [facility] Comment on above: Order Comment: 'TROP ' Serial specimen #1, #2 or #3: 1 Performed By: #### L 100.0100, L500.2500, L501.4020 ####[facility] [address] [place], [address] GFR/1.73 sq M.predicted among non-blacks MDRD (S/P/Bld) [Vol rate/Area] 96 mL/min/{1.73_m2} Normal >60 [facility] Comment on above: Order Comment: 'TROP ' Serial specimen #1, #2 or #3: 1 Result Comment: Non- GFR Calc Performed By: #### L 100.0100, L500.2500, L501.4020 ####[facility] [address] [place], [address] Glucose [Mass/Vol] 112 mg/dL High 74-106 [facility] Comment on above: Order Comment: 'TROP ' Serial specimen #1, #2 or #3: 1 Result Comment: Fast ing Glucose result from 100 to 125 mg/dLsuggests IMPAIRED HOMEOSTASIS per A.D.A. criteria. Performed By: #### L 100.0100, L500.2500, L501.4020 ####[facility] [address] [place], [address] Potassium [Moles/Vol] 3.9 mmol/L Normal 3.5-5.1 [facility] Comment on above: Order Comment: 'TROP ' Serial specimen #1, #2 or #3: 1 Performed By: #### L 100.0100, L500.2500, L501.4020 ####[facility] [address] [place], [address] Sodium [Moles/Vol] 137 mmol/L Normal 136-145 [facility] Comment on above: Order Comment: 'TROP ' Serial specimen #1, #2 or #3: 1 Performed By: #### L 100.0100, L500.2500, L501.4020 ####[facility] [address] [place], [address] Urea nitrogen [Mass/Vol] 7 mg/dL Normal 7-18 [facility] Comment on above: Order Comment: 'TROP ' Serial specimen #1, #2 or #3: 1 Performed By: #### L 100.0100, L500.2500, L501.4020 ####[facility] [address] [place], [address] CBC W/Diff, Automatedon 04-02-2023 Absolute Lymph 1.29 X10 3/uL Normal 0.83-4.51 [facility] Comment on above: Performed By: #### L 100.0100, L500.2500, L501.4020 ####[facility] [address] [place], [address] Absolute Neut 6.1 X10 3/uL Normal 2.0-7.7 [facility] Comment on above: Performed By: #### L 100.0100, L500.2500, L501.4020 ####[facility] [address] [place], [address] Basophils/100 WBC (Bld) 0.8 % Normal 0-1 [facility] Comment on above: Performed By: #### L 100.0100, L500.2500, L501.4020 ####[facility] [address] [place], [address] Eosinophils/100 WBC (Bld) 5.4 % High 0-5 [facility] Comment on above: Performed By: #### L 100.0100, L500.2500, L501.4020 ####[facility] [address] [place], [address] Erythrocyte distribution width (RBC) [Ratio] 13.3 % Normal 11.6-14.6 [facility] Comment on above: Performed By: #### L 100.0100, L500.2500, L501.4020 ####[facility] [address] [place], [address] Hematocrit (Bld) [Volume fraction] 41.7 % Normal 40-54 [facility] Comment on above: Performed By: #### L 100.0100, L500.2500, L501.4020 ####[facility] [address] [place], [address] Hemoglobin (Bld) [Mass/Vol] 13.6 g/dL Normal 13.0-16.5 [facility] Comment on above: Performed By: #### L 100.0100, L500.2500, L501.4020 ####[facility] [address] [place], [address] IG% 1.000 High 0.0-0.9 [facility] Comment on above: Result Comment: IG% - Immature Granulocytes (promyelocytes, myelocytes andmetamyelocytes) > 1% indicates that a LEFT SHIFT is Present. Performed By: #### L 100.0100, L500.2500, L501.4020 ####[facility] [address] [place], [address] Lymphocytes/100 WBC (Bld) 14.4 % Low 19-41 [facility] Comment on above: Performed By: #### L 100.0100, L500.2500, L501.4020 ####[facility] [address] [place], [address] MCH (RBC) [Entitic mass] 29.6 pg Normal 27.0-32.0 [facility] Comment on above: Performed By: #### L 100.0100, L500.2500, L501.4020 ####[facility] [address] [place], [address] MCHC (RBC) [Mass/Vol] 32.6 g/dL Normal 32-36 [facility] Comment on above: Performed By: #### L 100.0100, L500.2500, L501.4020 ####[facility] [address] [place], [address] MCV (RBC) [Entitic vol] 90.8 fL Normal 80-94 [facility] Comment on above: Performed By: #### L 100.0100, L500.2500, L501.4020 ####[facility] [address] [place], [address] Monocytes/100 WBC (Bld) 10.6 % High 0-10 [facility] Comment on above: Performed By: #### L 100.0100, L500.2500, L501.4020 ####[facility] [address] [place], [address] Neutrophils/100 WBC (Bld) 67.8 % Normal 47-70 [facility] Comment on above: Performed By: #### L 100.0100, L500.2500, L501.4020 ####[facility] [address] [place], [address] Nucleated RBC (Bld) [#/Vol] 0 10*3/uL Normal 0-5 [facility] Comment on above: Performed By: #### L 100.0100, L500.2500, L501.4020 ####[facility] [address] [place], [address] Platelet mean volume (Bld) [Entitic vol] 9.4 fL Normal 6.2-12.0 [facility] Comment on above: Performed By: #### L 100.0100, L500.2500, L501.4020 ####[facility] [address] [place], [address] Platelets (Bld) [#/Vol] 321 10*3/uL Normal 150-450 [facility] Comment on above: Performed By: #### L 100.0100, L500.2500, L501.4020 ####[facility] [address] [place], [address] RBC (Bld) [#/Vol] 4.59 10*6/uL Low 4.6-6.2 [facility] Comment on above: Performed By: #### L 100.0100, L500.2500, L501.4020 ####[facility] [address] [place], [address] RDW SD 44.6 fl High 35.1-43.9 [facility] Comment on above: Performed By: #### L 100.0100, L500.2500, L501.4020 ####[facility] [address] [place], [address] WBC (Bld) [#/Vol] 9.0 10*3/uL Normal 4.4-11.0 [facility] Comment on above: Performed By: #### L 100.0100, L500.2500, L501.4020 ####[facility] [address] [place], [address] Chest 1 View (Portable)on Chest 1 View (Portable) Normal [facility] Emergency Department Summary on 04-14-2024 Emergency Department Summary Normal [facility] L501.4020on 04-14-2024 TROPONIN-I HS 6 pg/mL Normal 3.0-78.0 [facility] Comment on above: Order Comment: 'TROP ' Serial specimen #1, #2 or #3: 1 Result Comment: Plea se Note: New Test Units and Gender Specific Reference Ranges. For more information see Policy Stat Procedure [place] High Sensitivity Troponin (TNIH) and attachments. Performed By: #### L 100.0100, L500.2500, L501.4020 ####[facility] [address] [place], [address] M100.678on 04-14-2024 M100.678 Pending SARS-CoV-2 (COVID 19) Negative INFLUENZA A Negative INFLUENZA B Negative RSV PCR Negative Normal [facility] Comment on above: Performed By: #### M 100.674 ####[facility] [address] [facility] [place], [address] Cardiology Visit Reporton Cardiology Visit Report Normal [facility] Absolute lymphocyte countOrd ered By: Alvaromuna Muñiz on 01-04-2024 Lymphocytes Auto (Unsp spec) [#/Vol] 1.46 10*3/uL 0.83-4.51 [facility] Automated lymphocyte count a s percentage of total leukocytesOrdered By: Alvaro Muñiz on 01-04-2024 Lymphocytes/100 WBC Auto (Unsp spec) 14.5 % 19-41 [facility] Basophil percentageOrdered B y: Alvaromuna Muñiz on 01-04-2024 Basophils/100 WBC (Bld) 0.4 % 0-1 [facility] Eosinophils/100 WBC (Bld) 4.4 % 0-5 [facility] Hemoglobin (Bld) [Mass/Vol] 13.7 g/dL 13.0-16.5 [facility] Monocytes/100 WBC (Bld) 8.2 % 0-10 [facility] Neutrophils (Bld) [#/Vol] 7.2 10*3/uL 2.0-7.7 [facility] Neutrophils/100 WBC (Bld) 71.8 % 47-70 [facility] WBC (Bld) [#/Vol] 10.1 10*3/uL 4.4-11.0 [facility] Determination of erythrocyte mean corpuscular volume (MCV)Ordered By: Alvaro Muñiz on 01-04-2024 MCV (RBC) [Entitic vol] 91.9 fL 80-94 [facility] Erythrocyte distribution wid th ratioOrdered By: Alvaromuna Muñiz on 01-04-2024 Erythrocyte distribution width (RBC) [Ratio] 12.8 % 11.6-14.6 [facility] Erythrocyte distribution wid th standard deviationOrdered By: Alvaromuna Muñiz on 01-04-2024 Erythrocyte distribution width (RBC) [Entitic vol] 43.1 fL 35.1-43.9 [facility] Hematocrit Auto (Bld) [Volum e fraction]Ordered By: Alvaromuna Muñiz on 01-04-2024 Hematocrit (Bld) [Volume fraction] 41.8 % 40-54 [facility] Immature granulocytes/100 WB C Auto (Bld)Ordered By: Alvaromuna Muñiz on 01-04-2024 Immature granulocytes/100 WBC (Bld) 0.700 % 0.0-0.9 [facility] Comment on above: IG% - Immature Granu locytes (promyelocytes, myelocytes and metamyelocytes) > 1% indicates that a LEFT SHIFT is Present. Laboratory - Hematology and Cell countsOrdered By: Alvaromuna Muñiz on 01-04-2024 MCH (RBC) [Entitic mass] 30.1 pg 27.0-32.0 [facility] MCHC (RBC) [Mass/Vol] 32.8 g/dL 32-36 [facility] Nucleated RBC/100 WBC (Bld) [Ratio] 0 % 0-5 [facility] Platelet mean volume (Bld) [Entitic vol] 8.9 fL 6.2-12.0 [facility] Platelets (Bld) [#/Vol] 326 10*3/uL 150-450 [facility] RBC Auto (Bld) [#/Vol]Ordere d By: Alvaromuna Muñiz on 01-04-2024 RBC (Bld) [#/Vol] 4.55 10*6/uL 4.6-6.2 [facility] Absolute lymphocyte countOrd ered By: Brett Davis on 10-03-2023 Lymphocytes Auto (Unsp spec) [#/Vol] 1.49 10*3/uL 0.83-4.51 [facility] Automated lymphocyte count a s percentage of total leukocytesOrdered By: Brett Davis on 10-03-2023 Lymphocytes/100 WBC Auto (Unsp spec) 11.5 % 19-41 [facility] Basophil percentageOrdered B y: Brett Davis on 10-03-2023 Basophils/100 WBC (Bld) 0.3 % 0-1 [facility] Chloride [Moles/Vol] 102 mmol/L 98-107 [facility] Eosinophils/100 WBC (Bld) 3.2 % 0-5 [facility] Glucose [Mass/Vol] 102 mg/dL 74-106 [facility] Comment on above: Fasting Glucose resu lt from 100 to 125 mg/dL suggests IMPAIRED HOMEOSTASIS per A.D.A. criteria. Hemoglobin (Bld) [Mass/Vol] 14.8 g/dL 13.0-16.5 [facility] Monocytes/100 WBC (Bld) 10.9 % 0-10 [facility] Neutrophils (Bld) [#/Vol] 9.1 10*3/uL 2.0-7.7 [facility] Neutrophils/100 WBC (Bld) 70.6 % 47-70 [facility] Potassium [Moles/Vol] 4.0 mmol/L 3.5-5.1 [facility] Sodium [Moles/Vol] 134 mmol/L 136-145 [facility] WBC (Bld) [#/Vol] 13.0 10*3/uL 4.4-11.0 [facility] Blood manual differential co mment interpretation (narrative result)Ordered By: Brett Davis on 10-03-2023 Manual differential comment Elmer (Bld) [Interp] SCANNED [facility] Determination of erythrocyte mean corpuscular volume (MCV)Ordered By: Brett Davis on 10-03-2023 MCV (RBC) [Entitic vol] 91.6 fL 80-94 [facility] Erythrocyte distribution wid th ratioOrdered By: Brett Davis on 10-03-2023 Erythrocyte distribution width (RBC) [Ratio] 13.7 % 11.6-14.6 [facility] Erythrocyte distribution wid th standard deviationOrdered By: Brett Davis on 10-03-2023 Erythrocyte distribution width (RBC) [Entitic vol] 46.4 fL 35.1-43.9 [facility] Hematocrit Auto (Bld) [Volum e fraction]Ordered By: Brett Davis on 10-03-2023 Hematocrit (Bld) [Volume fraction] 45.0 % 40-54 [facility] Immature granulocytes/100 WB C Auto (Bld)Ordered By: Brett Davis on 10-03-2023 Immature granulocytes/100 WBC (Bld) 3.500 % 0.0-0.9 [facility] Comment on above: IG% - Immature Granu locytes (promyelocytes, myelocytes and metamyelocytes) > 1% indicates that a LEFT SHIFT is Present. Laboratory - Chemistry and C hemistry - challengeOrdered By: Brett Davis on 10-03-2023 CO2 [Moles/Vol] 30.0 mmol/L 21.0-32.0 [facility] Urea nitrogen/Creatinine [Mass ratio] 17.2 mg/mg 10-20 [facility] Laboratory - Hematology and Cell countsOrdered By: Brett Davis on 10-03-2023 MCH (RBC) [Entitic mass] 30.1 pg 27.0-32.0 [facility] MCHC (RBC) [Mass/Vol] 32.9 g/dL 32-36 [facility] Nucleated RBC/100 WBC (Bld) [Ratio] 0 % 0-5 [facility] Platelets (Bld) [#/Vol] 347 10*3/uL 150-450 [facility] No Panel InformationOrdered By: Brett Davis on 10-03-2023 Estimated GFR (MDRD) Amer 106 mL/min >60 [facility] Comment on above: GFR Calc Estimated GFR (MDRD) Non-Af Amer 88 mL/min >60 [facility] Comment on above: Non- GFR Calc Platelet mean volume Nicolas-Ec ker (Bld) [Entitic vol]Ordered By: Brett Davis on 10-03-2023 Platelet mean volume (Bld) [Entitic vol] 9.1 fL 6.2-12.0 [facility] RBC Auto (Bld) [#/Vol]Ordere d By: Brett Davis on 10-03-2023 RBC (Bld) [#/Vol] 4.91 10*6/uL 4.6-6.2 [facility] Serum or plasma calcium donald urement (mass/volume)Ordered By: Brett Davis on 10-03-2023 Calcium [Mass/Vol] 8.5 mg/dL 8.5-10.1 [facility] Serum or plasma creatinine m easurement (mass/volume)Ordered By: Brett Davis on 10-03-2023 Creatinine [Mass/Vol] 0.93 mg/dL 0.70-1.30 [facility] Comment on above: The validity of the calculated GFR & GFRAA in patients over 70 years has not been determined. Clinical correlation is essential. Serum or plasma urea nitroge n measurement (mass/volume)Ordered By: Brett Davis on 10-03-2023 Urea nitrogen [Mass/Vol] 16 mg/dL 7-18 [facility] Thin prep Papanicolaou smear with manual screeningOrdered By: Brett Davis on 10-03-2023 Thin prep Papanicolaou smear with manual screening 2 5-15 [facility] Absolute lymphocyte countOrd ered By: Ryann Yu on 09-26-2023 Lymphocytes Auto (Unsp spec) [#/Vol] 0.81 10*3/uL 0.83-4.51 [facility] Automated lymphocyte count a s percentage of total leukocytesOrdered By: Ryann uY on 09-26-2023 Lymphocytes/100 WBC Auto (Unsp spec) 15.1 % 19-41 [facility] Basophil percentageOrdered B y: Ryann Yu on 09-26-2023 Basophils/100 WBC (Bld) 0.6 % 0-1 [facility] Chloride [Moles/Vol] 107 mmol/L 98-107 [facility] Eosinophils/100 WBC (Bld) 5.0 % 0-5 [facility] Glucose [Mass/Vol] 155 mg/dL 74-106 [facility] Comment on above: Fasting Glucose resu lt greater than or equal to 126 mg/dL suggests DIABETES MELLITUS per A.D.A. criteria. Hemoglobin (Bld) [Mass/Vol] 13.7 g/dL 13.0-16.5 [facility] [facility] [place] Monocytes/100 WBC (Bld) 9.5 % 0-10 [facility] [place] Neutrophils (Bld) [#/Vol] 3.7 10*3/uL 2.0-7.7 [facility] [place] Neutrophils/100 WBC (Bld) 69.1 % 47-70 [facility] [place] Potassium [Moles/Vol] 3.6 mmol/L 3.5-5.1 [facility] Sodium [Moles/Vol] 139 mmol/L 136-145 [facility] WBC (Bld) [#/Vol] 5.4 10*3/uL 4.4-11.0 [facility] Determination of erythrocyte mean corpuscular volume (MCV)Ordered By: Ryann Yu on 09-26-2023 MCV (RBC) [Entitic vol] 91.3 fL 80-94 [facility] [place] Erythrocyte distribution wid th ratioOrdered By: Ryann Yu on 09-26-2023 Erythrocyte distribution width (RBC) [Ratio] 13.6 % 11.6-14.6 [facility] [place] Erythrocyte distribution wid th standard deviationOrdered By: Ryann Yu on 09-26-2023 Erythrocyte distribution width (RBC) [Entitic vol] 45.7 fL 35.1-43.9 [facility] [place] Hematocrit Auto (Bld) [Volum e fraction]Ordered By: Ryann Yu on 09-26-2023 Hematocrit (Bld) [Volume fraction] 41.8 % 40-54 [facility] [place] Immature granulocytes/100 WB C Auto (Bld)Ordered By: Ryann Yu on 09-26-2023 Immature granulocytes/100 WBC (Bld) 0.700 % 0.0-0.9 [facility] [place] Comment on above: IG% - Immature Granu locytes (promyelocytes, myelocytes and metamyelocytes) > 1% indicates that a LEFT SHIFT is Present. Laboratory - Chemistry and C hemistry - challengeOrdered By: Ryann Yu on 09-26-2023 CO2 [Moles/Vol] 25.0 mmol/L 21.0-32.0 [facility] [place] Urea nitrogen/Creatinine [Mass ratio] 11.1 mg/mg 10-20 [facility] [place] Laboratory - Hematology and Cell countsOrdered By: Ryann Yu on 09-26-2023 MCH (RBC) [Entitic mass] 29.9 pg 27.0-32.0 [facility] [place] MCHC (RBC) [Mass/Vol] 32.8 g/dL 32-36 [facility] Nucleated RBC/100 WBC (Bld) [Ratio] 0 % 0-5 [facility] [place] Platelets (Bld) [#/Vol] 272 10*3/uL 150-450 [facility] [place] Laboratory - Microbiology an d Antimicrobial susceptibilityOrdered By: Ryann Yu on 09-26-2023 SARS-CoV-2 (COVID-19) RNA MANJU+probe Ql (Unsp spec) [facility] [place] Bacteria identified Cx Nom (Bld) No growth in 5 days. [facility] [place] SARS-CoV-2 (COVID-19) RNA MANJU+probe Ql (Unsp spec) [facility] [place] No Panel InformationOrdered By: Ryann Yu on 09-26-2023 D-Dimer Quantitative (PE/DVT) 0.44 FEU/ug/m 0.27-0.49 [facility] [place] Comment on above: NORMAL D-Dimer level (<0.50) indicates no DVT or PE. Estimated Creatinine Clearance Calc 74.85 ml/min [facility] [place] Estimated GFR (MDRD) Amer 99 mL/min >60 [facility] [place] Comment on above: GFR Calc Estimated GFR (MDRD) Non-Af Amer 82 mL/min >60 [facility] [place] Comment on above: Non- GFR Calc Troponin I High Sensitivity 8 pg/mL 3.0-78.0 [facility] [place] Comment on above: Please Note: New Buffy t Units and Gender Specific Reference Ranges. For more information see Policy Stat Procedure [place] High Sensitivity Troponin (TNIH) and attachments. Platelet mean volume Nicolas-Ec ker (Bld) [Entitic vol]Ordered By: Ryann Yu on 09-26-2023 Platelet mean volume (Bld) [Entitic vol] 9.4 fL 6.2-12.0 [facility] [place] RBC Auto (Bld) [#/Vol]Ordere d By: Ryann Yu on 09-26-2023 RBC (Bld) [#/Vol] 4.58 10*6/uL 4.6-6.2 [facility] Serum or plasma calcium donald urement (mass/volume)Ordered By: Ryann Yu on 09-26-2023 Calcium [Mass/Vol] 8.9 mg/dL 8.5-10.1 [facility] Serum or plasma creatinine m easurement (mass/volume)Ordered By: Ryann Yu on 09-26-2023 Creatinine [Mass/Vol] 0.99 mg/dL 0.70-1.30 [facility] Comment on above: The validity of the calculated GFR & GFRAA in patients over 70 years has not been determined. Clinical correlation is essential. Serum or plasma urea nitroge n measurement (mass/volume)Ordered By: Ryann Yu on 09-26-2023 Urea nitrogen [Mass/Vol] 11 mg/dL 7-18 [facility] [place] Thin prep Papanicolaou smear with manual screeningOrdered By: Ryann Yu on 09-26-2023 Thin prep Papanicolaou smear with manual screening 7 5-15 [facility] [place] .Auto Diffon 06-28-2023 Basophil, Absolute 0.0 10 3/mcL Normal 0.0-0.2 [facility] ([place]) Comment on above: Performed By: #### C BC, ADIFF, ANEU, BMP, GFR #### [address] [address] Basophils/100 WBC (Bld) 0.8 % Normal 0.0-2.5 [facility] ([place]) Comment on above: Performed By: #### C BC, ADIFF, ANEU, BMP, GFR #### [address] [address] Eosinophil, Absolute 0.3 10 3/mcL Normal 0.0-0.4 [facility] ([place]) Comment on above: Performed By: #### C BC, ADIFF, ANEU, BMP, GFR #### [address] [address] Eosinophils/100 WBC (Bld) 6.0 % Normal 0.0-7.0 [facility] ([place] Comment on above: Performed By: #### C BC, ADIFF, ANEU, BMP, GFR #### [address] [address] Lymphocyte, Absolute 1.1 10 3/mcL Normal 0.8-3.9 [facility] ([place] Comment on above: Performed By: #### C BC, ADIFF, ANEU, BMP, GFR #### [address] [address] Lymphocytes/100 WBC (Bld) 19.2 % Normal 10.0-50.0 [facility] ([place] Comment on above: Performed By: #### C BC, ADIFF, ANEU, BMP, GFR #### [address] [address] Monocyte, Absolute 0.7 10 3/mcL Normal 0.2-1.0 [facility] ([place] Comment on above: Performed By: #### C BC, ADIFF, ANEU, BMP, GFR #### [address] [address] Monocytes/100 WBC (Bld) 12.2 % Normal 1.7-13.0 [facility] ([place] Comment on above: Performed By: #### C BC, ADIFF, ANEU, BMP, GFR #### [address] [address] Neutrophils/100 WBC (Bld) 61.8 % Normal 37.0-80.0 [facility] ([place] Comment on above: Performed By: #### C BC, ADIFF, ANEU, BMP, GFR #### [address] [address] .GFRon 06-28-2023 GFR 93 ml/min/1.73sqm Normal [facility] ([place] Comment on above: Result Comment: GFR Population mean for , Non- Americans Ages 20-29 = 116 mL/min/1.73 sq.m. Ages 30-39 = 107 mL/min/1.73 sq.m. Ages 40-49 = 99 mL/min/1.73 sq.m. Ages 50-59 = 93 mL/min/1.73 sq.m. Ages 60-69 = 85 mL/min/1.73 sq.m. Ages 70+ = 75 mL/min/1.73 sq.m. Chronic Kidney Disease: Less than 60 mL/min/1.73 square meters End Stage Renal Disease: Less than 15 mL/min/1.73 square meters Performed By: #### C BC, ADIFF, ANEU, BMP, GFR #### [address] [address] GFR Non- 77 ml/min/1.73sqm Normal [facility] ([place] Comment on above: Result Comment: GFR Population mean for , Non- Americans Ages 20-29 = 116 mL/min/1.73 sq.m. Ages 30-39 = 107 mL/min/1.73 sq.m. Ages 40-49 = 99 mL/min/1.73 sq.m. Ages 50-59 = 93 mL/min/1.73 sq.m. Ages 60-69 = 85 mL/min/1.73 sq.m. Ages 70+ = 75 mL/min/1.73 sq.m. Chronic Kidney Disease: Less than 60 mL/min/1.73 square meters End Stage Renal Disease: Less than 15 mL/min/1.73 square meters Performed By: #### C BC, ADIFF, ANEU, BMP, GFR #### [address] [address] .NEUABSon 06-28-2023 Neutrophil, Absolute 3.5 10 3/mcL Normal 2.9-6.2 [facility] ([place]) Comment on above: Performed By: #### C BC, ADIFF, ANEU, BMP, GFR #### [address] [address] BMPon 06-28-2023 BUN/Creatinine Ratio 8 ratio Normal 7-27 [facility] ([place] Comment on above: Performed By: #### C BC, ADIFF, ANEU, BMP, GFR #### [address] [address] Calcium [Mass/Vol] 9.0 mg/dL Normal 8.4-10.2 [facility] ([place]) Comment on above: Performed By: #### C BC, ADIFF, ANEU, BMP, GFR #### [address] [address] Chloride [Moles/Vol] 102 mmol/L Normal 98-107 [facility] [place] Comment on above: Performed By: #### C BC, ADIFF, ANEU, BMP, GFR #### [address] [address] CO2 [Moles/Vol] 25 mmol/L Normal 23-31 [facility] ([place] Comment on above: Performed By: #### C BC, ADIFF, ANEU, BMP, GFR #### [address] [address] Creatinine [Mass/Vol] 0.99 mg/dL Normal 0.70-1.30 [facility] ([place]) Comment on above: Performed By: #### C BC, ADIFF, ANEU, BMP, GFR #### [address] [address] Electrolyte Balance 12.0 mEq/L Normal 4.0-15.0 [facility] ([place]) Comment on above: Performed By: #### C BC, ADIFF, ANEU, BMP, GFR #### [address] [address] Glucose [Mass/Vol] 93 mg/dL Normal 80-115 [facility] ([place] Comment on above: Performed By: #### C BC, ADIFF, ANEU, BMP, GFR #### [address] [address] Potassium [Moles/Vol] 3.9 mmol/L Normal 3.5-5.1 [facility] ([place] Comment on above: Performed By: #### C BC, ADIFF, ANEU, BMP, GFR #### [address] [address] Sodium [Moles/Vol] 139 mmol/L Normal 136-145 [facility] ([place] Comment on above: Performed By: #### C BC, ADIFF, ANEU, BMP, GFR #### [address] [address] Urea nitrogen [Mass/Vol] 8 mg/dL Normal 7-18 [facility] ([place] Comment on above: Performed By: #### C BC, ADIFF, ANEU, BMP, GFR #### [address] [address] CBCon 06-28-2023 Erythrocyte distribution width (RBC) [Ratio] 13.8 % Normal 11.5-14.5 [facility] ([place] Comment on above: Performed By: #### C BC, ADIFF, ANEU, BMP, GFR #### [address] [address] Hematocrit (Bld) [Volume fraction] 40.9 % Low 42.0-52.0 [facility] ([place] Comment on above: Performed By: #### C BC, ADIFF, ANEU, BMP, GFR #### [address] [address] Hgb 13.9 G/dL Low 14.0-18.0 [facility] ([place] Comment on above: Performed By: #### C BC, ADIFF, ANEU, BMP, GFR #### [address] [address] MCH (RBC) [Entitic mass] 30.7 pg Normal 27.0-31.2 [facility] ([place] Comment on above: Performed By: #### C BC, ADIFF, ANEU, BMP, GFR #### [place] [address] MCHC 34.0 G/dL Normal 31.8-35.4 [facility] ([place] Comment on above: Performed By: #### C BC, ADIFF, ANEU, BMP, GFR #### [place] [id number] MCV (RBC) [Entitic vol] 90.3 fL Normal 80.0-94.0 A [facility] ([place]) Comment on above: Performed By: #### C BC, ADIFF, ANEU, BMP, GFR #### [address] [address] Platelet 268 10 3/mcL Normal 130-400 [facility] ([place] Comment on above: Performed By: #### C BC, ADIFF, ANEU, BMP, GFR #### [address] [address] Platelet mean volume (Bld) [Entitic vol] 7.8 fL Normal 7.4-10.4 [facility] ([place] Comment on above: Performed By: #### C BC, ADIFF, ANEU, BMP, GFR #### [address] [address] RBC 4.54 10 6/mcL Normal 4.04-6.13 [facility] ([place] Comment on above: Performed By: #### C BC, ADCUBA, ANEU, BMP, GFR #### [address] [place] [address] [address] [place], [place] [address] WBC 5.7 10 3/mcL Normal 4.6-10.8 [facility] ([place] Comment on above: Performed By: #### C BC, ADCUBA, ANEU, BMP, GFR #### [address] [place], [place] [address] LABORATORYOrdered By: SYSTEM SYSTEM on 06-28-2023 Basophil, Absolute 0.0 103/mcL Invalid Interpretation Code 0.0 - 0.2 10^3/mcL AO Workflow SS Basophils/100 WBC (Bld) 0.8 % Invalid Interpretation Code 0.0 - 2.5 % AO Workflow SS Calcium [Mass/Vol] 9.0 mg/dL Invalid Interpretation Code 8.4 - 10.2 mg/dL AO ADM SS Chloride [Moles/Vol] 102 mmol/L Invalid Interpretation Code 98 - 107 mmol/L AO ADM SS CO2 [Moles/Vol] 25 mmol/L Invalid Interpretation Code 23 - 31 mmol/L AO ADM SS Creatinine [Mass/Vol] 0.99 mg/dL Invalid Interpretation Code 0.70 - 1.30 mg/dL AO ADM SS Electrolyte Balance 12.0 mEq/L Invalid Interpretation Code 4.0 - 15.0 mEq/L AO ADM SS Eosinophil, Absolute 0.3 103/mcL Invalid Interpretation Code 0.0 - 0.4 10^3/mcL AO Workflow SS Eosinophils/100 WBC (Bld) 6.0 % Invalid Interpretation Code 0.0 - 7.0 % AO Workflow SS Erythrocyte distribution width (RBC) [Ratio] 13.8 % Invalid Interpretation Code 11.5 - 14.5 % AO Workflow SS GFR/1.73 sq M.predicted among blacks MDRD (S/P/Bld) [Vol rate/Area] 93 ml/min/1.73sqm Invalid Interpretation Code AO Chemistry S Comment on above: Interpretive Data: GFR Population mean for , Non- Americans Ages 20-29 = 116 mL/min/1.73 sq.m. Ages 30-39 = 107 mL/min/1.73 sq.m. Ages 40-49 = 99 mL/min/1.73 sq.m. Ages 50-59 = 93 mL/min/1.73 sq.m. Ages 60-69 = 85 mL/min/1.73 sq.m. Ages 70+ = 75 mL/min/1.73 sq.m. Chronic Kidney Disease: Less than 60 mL/min/1.73 square meters End Stage Renal Disease: Less than 15 mL/min/1.73 square meters GFR/1.73 sq M.predicted among non-blacks MDRD (S/P/Bld) [Vol rate/Area] 77 ml/min/1.73sqm Invalid Interpretation Code AO Chemistry S Comment on above: Interpretive Data: GFR Population mean for , Non- Americans Ages 20-29 = 116 mL/min/1.73 sq.m. Ages 30-39 = 107 mL/min/1.73 sq.m. Ages 40-49 = 99 mL/min/1.73 sq.m. Ages 50-59 = 93 mL/min/1.73 sq.m. Ages 60-69 = 85 mL/min/1.73 sq.m. Ages 70+ = 75 mL/min/1.73 sq.m. Chronic Kidney Disease: Less than 60 mL/min/1.73 square meters End Stage Renal Disease: Less than 15 mL/min/1.73 square meters Glucose [Mass/Vol] 93 mg/dL Invalid Interpretation Code 80 - 115 mg/dL AO ADM SS Hematocrit (Bld) [Volume fraction] 40.9 % Invalid Interpretation Code 42.0 - 52.0 % AO Workflow SS Hemoglobin (Bld) [Mass/Vol] 13.9 G/dL Invalid Interpretation Code 14.0 - 18.0 G/dL AO Workflow SS Lymphocyte, Absolute 1.1 103/mcL Invalid Interpretation Code 0.8 - 3.9 10^3/mcL AO Workflow SS Lymphocytes/100 WBC (Bld) 19.2 % Invalid Interpretation Code 10.0 - 50.0 % AO Workflow SS MCH (RBC) [Entitic mass] 30.7 pg Invalid Interpretation Code 27.0 - 31.2 pg AO Workflow SS MCHC 34.0 G/dL Invalid Interpretation Code 31.8 - 35.4 G/dL AO Workflow SS MCV (RBC) [Entitic vol] 90.3 fL Invalid Interpretation Code 80.0 - 94.0 fL AO Workflow SS Monocyte, Absolute 0.7 103/mcL Invalid Interpretation Code 0.2 - 1.0 10^3/mcL AO Workflow SS Monocytes/100 WBC (Bld) 12.2 % Invalid Interpretation Code 1.7 - 13.0 % AO Workflow SS Neutrophil, Absolute 3.5 103/mcL Invalid Interpretation Code 2.9 - 6.2 10^3/mcL AO Workflow SS Neutrophils/100 WBC (Bld) 61.8 % Invalid Interpretation Code 37.0 - 80.0 % AO Workflow SS Platelet mean volume (Bld) [Entitic vol] 7.8 fL Invalid Interpretation Code 7.4 - 10.4 fL AO Workflow SS Platelets (Bld) [#/Vol] 268 103/mcL Invalid Interpretation Code 130 - 400 10^3/mcL AO Workflow SS Potassium [Moles/Vol] 3.9 mmol/L Invalid Interpretation Code 3.5 - 5.1 mmol/L AO ADM SS RBC (Bld) [#/Vol] 4.54 106/mcL Invalid Interpretation Code 4.04 - 6.13 10^6/mcL AO Workflow SS Sodium [Moles/Vol] 139 mmol/L Invalid Interpretation Code 136 - 145 mmol/L AO ADM SS Urea nitrogen [Mass/Vol] 8 mg/dL Invalid Interpretation Code 7 - 18 mg/dL AO ADM SS Urea nitrogen/Creatinine [Mass ratio] 8 ratio Invalid Interpretation Code 7 - 27 ratio AO ADM SS WBC (Bld) [#/Vol] 5.7 103/mcL Invalid Interpretation Code 4.6 - 10.8 10^3/mcL AO Workflow SS Bacteria identified Respirat ory culture Nom (Unsp spec)Ordered By: Bruce Devries on 04-12-2023 Respiratory Culture Pseudomonas aeruginosa [facility] [place] Respiratory Culture Pseudomonas aeruginosa [facility] [place] Gram stain for investigation of transfusion reactionOrdered By: Bruce Devries on 04-12-2023 Microscopic observation Gram stain Nom (Unsp spec) [facility] [place] Microscopic observation Gram stain Nom (Unsp spec) [facility] [place] EMERGENCY REPORTon 2 EMERGENCY REPORT [facility] EMERGENCY ROOM REPORT NAME ACCOUNT SEX AGE ADMIT DISCHARGE PT MED. RECORD# NUMBER DATE DATE TYPE FILIPE [id number] M 61 06/30/22 06/30/22 3 [place] [id number] ROOM: ER DATE OF : 1960 DICTATING PHYSICIAN: Zoraida Low HISTORY OF PRESENT ILLNESS: The patient came in acutely short of breath and tachycardic. He said he took 2 breathing treatments at home, and he got more short of breath. He called the squad, and the squad gave another breathing treatment. He came in short of breath, wheezing, tachycardiac, and anxious. PAST MEDICAL HISTORY: Positive for COPD, asthma. PAST SURGICAL HISTORY: He has had bladder surgery. SOCIAL HISTORY: He does continue to smoke. He denies alcohol use. REVIEW OF SYSTEMS: Ten systems reviewed and negative except as mentioned above. PHYSICAL EXAMINATION: VITAL SIGNS: He is afebrile. Pulse 130, respirations 30, blood pressure 140/98, and pulse oximetry 98% on room air. HEENT: Head is normocephalic and atraumatic. Eyes: Pupils are equal, round, and reactive to light. Extraocular muscles are intact. Nares are patent. Throat has adequate oral moisture. Uvula is midline. NECK: Neck is supple without petechiae or rash. HEART: Heart is regular rate and rhythm without murmur. S1 equals S2. No S3 or S4 appreciated. LUNGS: Lungs are clear to auscultation bilaterally. No rales, rhonchi, or retractions. ABDOMEN: Abdomen is soft, nontender, and nondistended. SKIN: Skin is warm and dry. DIAGNOSTIC DATA: The patient's troponin was elevated at 135. D-dimer was elevated. His chemistries were unremarkable. Lactate was 1.2. White count is 13,000, H&H 12 and 39, and platelet count 249,000. EKG shows a rate of 124, normal axis. He had PVCs. EMERGENCY DEPARTMENT COURSE AND TREATMENT/PLAN/DISPOSITION : I did want to keep the patient in the hospital, but he declined this. He says he feels much better after the breathing treatments here. Critical Care time was 35 minutes, excluding billable procedures. I will place him on Zithromax, as well as prednisone. The patient had Solu-Medrol, which was given by EMS. He was refusing to be admitted. Page 1 of 2 [facility] Room Report CHIO NOLEN JR, JR : 1960 DIAGNOSES: 1. Chronic obstructive pulmonary disease exacerbation. 2. Elevated troponin and D-dimer. 3. Leaving against medical advice, risks and benefits were explained. Dictated By: Zoraida Low DO 06/30/22 21:08 JOB #: [id number] Transcribed By: am 07/02/22 06:07 Electronically signed by: ADAM Low DO 07/02/22 07:22 Page 2 of 2 [facility] Room Report W JR Normal [facility] ARTERIAL BLOOD GAS ANALYSISo n 06-30-2022 ALLENS TEST Positive Normal [facility] Comment on above: Result Comment: { TI ME CALLED . Performed By: #### 2 [id number] #### [facility],[address] [place] [address] ARTERIAL BLOOD GAS ANALYSIS Normal [facility] Comment on above: Result Comment: DORIS RIAL BLOOD GAS Performed By: #### 2 [id number] #### [facility],[address] [place] [address] BE -2 Normal -2 - 3 [facility] Comment on above: Performed By: #### 2 68915 #### [facility],[address] [place] [address] HCO3 (Bld) [Moles/Vol] 24 mmol/L Normal 22 - 26 [facility] Comment on above: Performed By: #### 2 14019 #### [facility],[address] [place] [address] Heart rate 95 /min Normal [facility] Comment on above: Performed By: #### 2 19790 #### [facility],[address] [place] [address] MODALITY NC Normal [facility] Comment on above: Performed By: #### 2 60760 #### [facility],[address] [place] [address] PCO2 44 mm Hg Normal 35 - 45 [facility] Comment on above: Performed By: #### 2 30781 #### [facility],[address] [place] [address] pH (Bld) 7.34 [pH] Low 7.35 - 7.45 [facility] Comment on above: Performed By: #### 2 98947 #### [facility],[address] [place] [address] PO2 29 mm Hg Critically low 80 - 105 [facility] Comment on above: Result Comment: { CA LLED TO DR. ROBISON 1725 { READ BACK BY DR. SORIANO Performed By: #### 2 25579 #### [facility],[address] [place] [address] SAMPLE SITE VENOUS Normal [facility] Comment on above: Performed By: #### 2 69663 #### [facility],[address] [place] [address] SaO2 50 Critically low 95 - 98 [facility] Comment on above: Result Comment: { CA LLED TO DR. SORIANO 1725 { READ BACK BY DR. SORIANO TIME RESULT CALLED _. 06/30/22.1725.DWP. { FIO2/LPM 5 L Performed By: #### 2 13225 #### [facility],[address] [place] [address] TOTAL RR 26 Normal [facility] Comment on above: Performed By: #### 2 24594 #### [facility],[address] [place] [address] VENT N/A Normal [facility] Comment on above: Performed By: #### 2 30677 #### [facility],[address] [place] [address] CBC + DIFFon 06-30-2022 Baso # 0.00 x10EE3/UL Normal 0.00 - 0.10 [facility] Comment on above: Performed By: #### 2 49405 #### [facility],[address],[place] [address] Basophils/100 WBC (Bld) 0.1 % Normal 0.0 - 2.0 [facility] Comment on above: Performed By: #### 2 [address]1844 #### [facility],[address] [place] [address] CBC + DIFF Normal [facility] Comment on above: Result Comment: CBC- COMPLETE BLOOD COUNT Performed By: #### 2 66834 #### [facility],[address] [place] [address] EO # 0.10 x10EE3/UL Normal 0.00 - 0.50 [facility] Comment on above: Performed By: #### 2 07124 #### [facility],[address] [place] [address] Eosinophils/100 WBC (Bld) 1.0 % Normal 0.0 - 7.0 [facility] Comment on above: Performed By: #### 2 08732 #### [facility],[address] [place] [address] Erythrocyte distribution width (RBC) [Ratio] 14.2 % Normal 12.0 - 15.6 [facility] Comment on above: Performed By: #### 2 07486 #### [facility],[address] [place] [address] Hematocrit (Bld) [Volume fraction] 39.3 % Low 40.0 - 52.0 [facility] Comment on above: Performed By: #### 2 56484 #### [facility],[address] [place] [address] Hemoglobin (Bld) [Mass/Vol] 12.9 g/dL Low 13.0 - 17.5 [facility] Comment on above: Performed By: #### 2 16125 #### [facility],[address] [place] [address] Lymph # 0.50 x10EE3/UL Low 0.80 - 2.80 [facility] Comment on above: Performed By: #### 2 85309 #### [facility],[address] [place] [address] Lymphocytes/100 WBC (Bld) 3.7 % Low 20.0 - 45.0 [facility] [place] Comment on above: Performed By: #### 2 [id number] #### [facility],[address] [place] [address] MANUAL DIFF N/A Normal [facility] Comment on above: Performed By: #### 2 [id number] #### [facility],[address] [place] [address] MCH (RBC) [Entitic mass] 29 pg Normal 27 - 33 [facility] Comment on above: Performed By: #### 2 20744 #### [facility],[address] [place] [address] MCHC 33 X10 3 Normal 32 - 36 [facility] Comment on above: Performed By: #### 2 [id number] #### [facility],[address] [place] [address] MCV (RBC) [Entitic vol] 89 fL Normal 81 - 98 [facility] Comment on above: Performed By: #### 2 37509 #### [facility],[address] [place] [address] Story # 0.70 x10EE3/UL Normal 0.20 - 1.00 [facility] Comment on above: Performed By: #### 2 76489 #### [facility],[address] [place] [address] MONOS % 4.9 % Normal 0.0 - 10.0 [facility] Comment on above: Performed By: #### 2 75021 #### [facility],[address] [place], [place] [id number] Morphology Elmer (Bld) [Interp] N/A Normal [facility] Comment on above: Result Comment: {CD] Performed By: #### 2 77956 #### [facility],[address] [place] [address] 15401 Neut # 12.50 x10EE3/UL High 1.50 - 7.10 [facility] Comment on above: Performed By: #### 2 18669 #### [facility],[address] [place] [address] 11264 Neutrophils/100 WBC (Bld) 90.3 % High 46.0 - 76.0 [facility] Comment on above: Performed By: #### 2 61717 #### [facility],[address] [place] [address] 01300 PLATELET 246 x10EE3/UL Normal 150 - 450 [facility] Comment on above: Performed By: #### 2 06526 #### [facility],[address] [place] [address] 16829 Platelet mean volume (Bld) [Entitic vol] 7.7 fL Normal 6.4 - 10.5 [facility] Comment on above: Result Comment: AUTO MATED DIFFERENTIAL Performed By: #### 2 17851 #### [facility],[address] [place] [address] 15388 RBC 4.44 x 10EE6/UL Low 4.50 - 6.00 [facility] Comment on above: Performed By: #### 2 49427 #### [facility],[address] [place] [address] 04419 WBC 13.9 x 10EE3/UL High 4.5 - 10.8 [facility] Comment on above: Performed By: #### 2 97485 #### [facility],[address] [place] [address] 18746 CHEST 1 VIEWon 06-30-2022 CHEST 1 VIEW [place] [address] Patient: CHIO DENT Phone#: : 1960 Age: 61 Gender: M Pt. Type: ER Account: [id number] Location: 052 Ordering: ZORAIDA LALO Exam Date: 06/30/2022/17:51 Family Phys: Charge Code: [id number] Physician: Randall Order #: [id number] Dose#: PROCEDURE: X-RAY CHEST 1 VIEW COMPARISON: [facility], XR, CHEST AP, 03/12/2015, 22:21. INDICATIONS: Dyspnea. FINDINGS: LUNGS: Lungs are hyperinflated. Chronic interstitial changes are present. VASCULATURE: Normal. Unremarkable pulmonary vasculature. CARDIAC: Normal. No cardiac silhouette abnormality or cardiomegaly. MEDIASTINUM: Normal. No visible mass or adenopathy. PLEURA: Normal. No effusion or pleural thickening. BONES: Remote healed fracture of the left clavicle. OTHER: Negative. CONCLUSION: 1. 2. Chronic interstitial change. COPD. Dictated by: Samia Glasgow MD on 07/01/2022 at 21:07 Approved by: Samia Glasgow MD on 07/01/2022 at 21:08 Normal [facility] CMP with eGFRon 06-30-2022 AGE 61 years Normal [facility] Comment on above: Performed By: #### 2 20139 #### [facility],[address] [place] [address] 53363 Albumin [Mass/Vol] 3.1 g/dL Low 3.4 - 5.0 [facility] Comment on above: Performed By: #### 2 68442 #### [facility],[address] [place] [address] 93836 Albumin/Globulin [Mass ratio] 0.9 {ratio} Normal 0.9 - 1.6 [facility] Comment on above: Performed By: #### 2 97284 #### [facility],[address] [place] [address] 37823 ALK PHOS 71 U/L Normal 46 - 116 [facility] Comment on above: Performed By: #### 2 22339 #### [facility],[address] [place] [address] 31367 ALT [Catalytic activity/Vol] 12 U/L Low 16 - 63 [facility] Comment on above: Performed By: #### 2 37311 #### [facility],[address] [place] [address] 35888 Anion gap [Moles/Vol] 14 mmol/L Normal 10 - 20 [facility] Comment on above: Performed By: #### 2 83089 #### [facility],[address] [place] [address] 72151 AST [Catalytic activity/Vol] 12 U/L Low 15 - 37 [facility] Comment on above: Performed By: #### 2 20281 #### [facility],[address] [place] [address] 13089 B/C RATIO 16 ratio Normal 0 - 30 [facility] Comment on above: Performed By: #### 2 13428 #### [facility],[address] [place] [address] 72393 Bilirubin [Mass/Vol] 0.4 mg/dL Normal 0.2 - 1.0 [facility] Comment on above: Performed By: #### 2 99603 #### [facility],[address] [place] [address] 55097 Calcium [Mass/Vol] 8.1 mg/dL Low 8.5 - 10.1 [facility] Comment on above: Performed By: #### 2 96131 #### [facility],[address] [place] [address] 21726 Chloride [Moles/Vol] 102 mmol/L Normal 98 - 107 [facility] Comment on above: Performed By: #### 2 62516 #### [facility],[address] [place] [address] 89460 CMP with eGFR Normal [facility] Comment on above: Result Comment: COMP REHENSIVE METABOLIC PANEL Performed By: #### 2 02894 #### [facility],[address] [place] [address] 31045 CO2 [Moles/Vol] 24.8 mmol/L Normal 21.0 - 32.0 [facility] Comment on above: Performed By: #### 2 89230 #### [facility],[address] [place] [address] 04204 Creatinine [Mass/Vol] 0.87 mg/dL Normal 0.70 - 1.30 [facility] Comment on above: Performed By: #### 2 99814 #### [facility],[address] [place] [address] 13740 GFR/1.73 sq M.predicted among non-blacks MDRD (S/P/Bld) [Vol rate/Area] mL/min/{1.73_m2} Normal 60 - 999 [facility] Comment on above: Performed By: #### 2 48258 #### [facility],[address] [place] [address] 25137 Result Comment: ACCO RDING TO THE NATIONAL KIDNEY DISEASE EDUCATION PROGRAM(NKDE), A NORMAL eGFR IS A VALUE GREATER THAN OR EQUAL TO 60 ML/MIN/1.73 SQ METERS. CHRONIC KIDNEY DISEASE: <60mL/MIN/1.73 SQ METERS KIDNEY FAILURE: <15mL/MIN/1.73 SQ METERS THIS TEST SHOULD ONLY BE USED FOR PATIENTS 18 YEARS OF AGE AND OLDER. Globulin (S) [Mass/Vol] 3.3 g/dL Normal 1.5 - 3.8 [facility] Comment on above: Performed By: #### 2 03413 #### [facility],[address] [place] [address] 98439 Glucose [Mass/Vol] 124 mg/dL High 74 - 106 [facility] Comment on above: Performed By: #### 2 87358 #### [facility],[address] [place] [address] 75034 Potassium [Moles/Vol] 3.6 mmol/L Normal 3.5 - 5.1 [facility] Comment on above: Performed By: #### 2 18744 #### [facility],[address] [place] [address] 40640 Protein [Mass/Vol] 6.4 g/dL Normal 6.4 - 8.2 [facility] Comment on above: Performed By: #### 2 76438 #### [facility],[address] [place] [address] Sodium [Moles/Vol] 137 mmol/L Normal 136 - 145 [facility] Comment on above: Performed By: #### 2 18935 #### [facility],[address] [place] [address] Urea nitrogen [Mass/Vol] 14 mg/dL Normal 7 - 18 [facility] Comment on above: Performed By: #### 2 74731 #### [facility],[address] [place], [place] [id number] CORONAVIRUS PCR - [facility] 06-30-2022 SARS-CoV-2 (COVID-19) RNA MANJU+probe Ql (Unsp spec) Negative Normal NORMAL: NEGATIVE [facility] Comment on above: Performed By: #### 2 72124 #### [facility],[address] [place], [place] [id number] SEND TO IC? NO Normal [facility] Comment on above: Result Comment: RESU LTS FAXED TO INFECTION CONTROL. SARS-CoV-2 THIS TEST IS BEING USED UNDER THE FDA EUA PROCEDURE. THIS ASSAY HAS BEEN VALIDATED IN THE [facility] FOR USE WITH NASOPHARYNGEAL SPECIMENS IN [facility]. INTERPRETIVE DATA LABORATORY TEST RESULTS SHOULD ALWAYS BE CONSIDERED IN THE CONTEXT OF CLINICAL OBSERVATIONS AND EPIDEMIOLOGICAL DATA IN MAKING FINAL DIAGNOSIS AND PATIENT MANAGEMENT DECISIONS. PATIENT MANAGEMENT SHOULD FOLLOW CURRENT CDC GUIDELINES. A POSITIVE TEST RESULT FOR COVID-19 INDICATES THAT RNA FROM SARS-CoV-2 WAS DETECTED, AND THE PATIENT IS INFECTED WITH THE VIRUS AND PRESUMED TO BE CONTAGIOUS. A NEGATIVE TEST RESULT FOR THIS TEST MEANS THAT SARS-CoV-2 RNA WAS NOT PRESENT IN THE SPECIMEN ABOVE THE LIMIT OF DETECTION. HOWEVER, A NEGATVIE RESULT DOES NOT RULE OUT COVID-19 AND SHOULD NOT BE USED THE SOLE BASIS FOR TREATMENT OR PATIENT MANAGEMENT DECISIONS. A NEGATIVE RESULT DOES NOT EXCLUDE THE POSSIBILITY OF COVID-19. WHEN DIAGNOSTIC TESTING IS NEGATIVE, THE POSSIBLILTY OF A FALSE NEGATIVE RESULT SHOULD BE CONSIDERED IN THE CONTEXT OF A PATIENT'S RECENT EXPOSURES AND THE PRESENCE OF CLINICAL SIGNS AND SYMPTOMS CONSISTENT WITH COVID-19. THE POSSIBILITY OF A FALSE NEGATIVE RESULT SHOULD ESPECIALLY BE CONSIDERED IF THE PATIENT'S RECENT EXPOSURES OR CLINICAL PRESENTATION INDICATE THAT COVID-19 IS LIKELY, AND DIAGNOSTIC TESTS FOR OTHER CAUSES OF ILLNESS (e.g., OTHER RESPIRATORY ILLNESS) ARE NEGATIVE. IF COVID-19 IS STILL SUSPECTED BASED ON EXPOSURE HISTORY TOGETHER WITH OTHER CLINICAL FINDINGS, RE-TESTED SHOULD BE CONSIDERED BY HEALTHCARE PROVIDERS IN CONSULTATION WITH PUBLIC HEALTH AUTHORITIES. Performed By: #### 2 34775 #### [facility],[address] [place] [address] 21514 D-DIMER, QUANTITATIVEon 06-03 D-DIMER QUANT 259 ng/ml High 0 - 230 [facility] Comment on above: Performed By: #### 2 46651 #### [facility],[address] [place] [address] 18160 D-DIMER, QUANTITATIVE Normal [facility] Comment on above: Result Comment: KEENAN T D-DIMER Performed By: #### 2 95379 #### [facility],[address] [place] [address] 57021 LACTATEon 06-30-2022 Lactate [Moles/Vol] 1.2 mmol/L Normal 0.4 - 2.0 [facility] Comment on above: Performed By: #### 2 62996 #### [facility],[address] [place] [address] 33908 TROPONIN I, HIGH SENSITIVITY on 06-30-2022 HS TROPONIN 135.1 pg/mL Critically high 0.0 - 76.2 [facility] Comment on above: Result Comment: { CA LLED TO ED AT 1854, RA 1853 { READ BACK BY HUMBLE Gonzalez TO CWB Performed By: #### 2 19543 #### [facility],[address] [place] [address] 84617 ANES POSTPROC EVALon 022 ANES POSTPROC EVAL HNO ID: [id number] Author: Gildardo Parr MD Service: ? Author Type: Physician Type: Anesthesia Postprocedure Evaluation Filed: 01/19/2022 1:01 PM Note Text: POST ANESTHESIA EVALUATION NOTE : 1960 Procedure Summary Date: 01/19/22 Room / Location: Procedures Anesthesia Start: 1107 Anesthesia Stop: 1123 Procedure: EGD DIAGNOSTIC Diagnosis: Dysphagia, unspecified type (Dysphagia) Scheduled Providers: Eliecer Britton Jr., MD; Gildardo Parr MD; Ameena Landin APRN.PIN BALL MACHINE MECHANIC Responsible Provider: Gildardo Parr MD Anesthesia Type: MAC ASA Status: 3 Anesthesia Type: MAC Last Vitals Vitals Value Taken Time BP 102/71 01/19/22 1150 Temp 36.3 ?C (97.4 ?F) 01/19/22 1126 HR SpO2 91 01/19/22 1145 Resp 18 01/19/22 1135 SpO2 95 % 01/19/22 1152 Vitals shown include unvalidated device data. Post Anesthesia Patient Status Patient Evaluation: PACU. PACU/ICU Patient Condition: stable. Anticipated Disposition: phase 2 then home. Neurological Status: aware and responsive. Pulmonary Status: breathing comfortably on room air Airway Control: returned to baseline unsupported. Cardiovascular Status: stable. Pain Management: clinically adequate - multimodal analgesia pain management approach Postoperative Hydration: acceptable. Intraoperative Events: no significant anesthesia events Recommendation: continue current plan of care. Anesthesia Observations No Documentation SIGNATURE: Gildardo Parr MD PATIENT NAME: Chio Dent Jr. DATE: January 19, 2022 TIME: 1:01 PM CSN: [id number] [facility] ANES PRE-OPon 01-19-2022 ANES PRE-OP HNO ID: [id number] Author: Gildardo Parr MD Service: ? Author Type: Physician Type: Anesthesia Preprocedure Evaluation Filed: 01/19/2022 11:14 AM Note Text: ANESTHESIOLOGY DAY OF SURGERY NOTE : 1960 Procedure Information Anesthesia Start Date/Time: 01/19/22 110 Scheduled providers: Eliecer Britton Jr., MD; Gildardo Parr MD; Ameena Landin APRN.PIN BALL MACHINE MECHANIC Procedure: EGD DIAGNOSTIC Location: Procedures Estimated body mass index is 23.11 kg/m? as calculated from the following: Height as of 01/17/22: 172.7 cm (5' 8). Weight as of this encounter: 68.9 kg (152 lb). Most recent hematocrit and potassium results: Hematocrit 36.1 09/19/2021 Potassium 4.4 12/19/2021 Relevant Problems ANESTHESIA (+) VIVI on CPAP CARDIO (+) Coronary artery disease involving [place] heart without angina pectoris (+) Hypertension PULMONARY (+) Asthma (+) COPD (chronic obstructive pulmonary disease) (HCC) (+) VIVI on CPAP I - PHYSICAL EVALUATION AIRWAY Patient intubated: No. Tracheostomy tube not present Mallampati: II. TM distance: >3 FB. Neck ROM: full ROM without neurological symptoms. Mouth opening: adequate. Short neck: no. Thick neck: no DENTAL Normal dental observations. Dental findings: teeth intact. Additional exam findings: no II - ANESTHESIA PLAN ASA Score: 3 Anesthetic Plan: MAC NPO Status: adequate Monitoring plan: Standard ASA. Postoperative analgesic plan: parenteral or oral opioids and multimodal analgesia. Informed Consent Anesthetic risks, benefits, alternatives, personnel and consent discussed: yes. Patient / Responsible [employer] Party agrees to proceed: yes Patient / Surrogate agrees to blood products: blood products not planned DNR status not reviewed with patient and/or family prior to surgery. Significant changes in the patient condition since the History and Physical, not otherwise documented in primary service progress note: no. Potential Anesthesia issues that may suggest increased risk of complications or contraindication to planned procedure: none. Vitals Value Taken Time BP 113/82 01/19/22 1053 Pulse 91 01/19/22 1053 Resp 20 01/19/22 1053 Temp 36.6 ?C (97.9 ?F) 01/19/22 1053 SpO2 97 % 01/19/22 1053 Outpatient Medications as of 01/19/2022 Medication Sig - atorvastatin (LIPITOR) 20 mg tablet Take 1 tablet by mouth daily at bedtime. For cholesterol. - gabapentin (NEURONTIN) 600 mg tablet Take 1 tablet by mouth daily at bedtime. VA medication. - fluticasone (FLONASE) 50 mcg/actuation nasal spray USE 2 SPRAYS IN EACH NOSTRIL ONCE DAILY. RINSE MOUTH AFTER USE. - montelukast (SINGULAIR) 10 mg tablet Take 1 tablet by mouth once daily. - cetirizine (ZYRTEC) 10 mg tablet Take 1 tablet by mouth once daily. VA medication for allergies. - CALCIUM ORAL Take 1,000 Units by mouth once daily. - omeprazole (PRILOSEC) 20 mg ORAL capsule 2 tabs once a day - lisinopril 2.5 mg tablet Take 2.5 mg by mouth once daily. - tiotropium-olodaterol (STIOLTO RESPIMAT) 2.5-2.5 mcg/actuation Inhale 2 Puffs as instructed once daily. - albuterol HFA (PROAIR HFA) 90 mcg/actuation inhaler Inhale 2 Puffs as instructed every 4 hours as needed. - azelastine (ASTELIN,ASTEPRO) 0.1% nasal spray Use 2 Sprays in each nostril twice daily. - Cholecalciferol, Vitamin D3, 1,000 unit cap Take 2 capsules by mouth once daily. - cyanocobalamin (VITAMIN B-12) 1,000 mcg tab Take 1 tablet by mouth once daily. - albuterol 2.5 mg /3 mL (0.083 %) INHALATION nebulizer solution Use via nebulizer every 6 hours as needed for Wheezing/Shortness of Breath. Inhale by nebulizer over 5-15 minutes - Aspirin 81 mg ORAL Tab Take one(1) tablet daily. - clopidogrel (PLAVIX) 75 mg ORAL tablet Take one(1) tablet daily at bedtime. Facility-Administered Medications as of 01/19/2022 Medication Dose Route Frequency - NaCl 0.9% iv infusion 30 mL/hr INTRAVENOUS CONTINUOUS I have interviewed and examined the patient. I have reviewed the medical record and/or the pre-anesthesia evaluation, pertinent labs, and test results. This contains updated information obtained within 48 hours of Surgery/Procedure. SIGNATURE: Gildardo Parr MD PATIENT NAME: Chio Dent Jr. DATE: January 19, 2022 TIME: 11:14 AM CSN: [id number] Normal [facility] HISTORY PHYSICALon HISTORY PHYSICAL HNO ID: [id number] Author: Eliecer Britton Jr., MD Service: General Surgery Author Type: Physician Type: HANDP Filed: 01/19/2022 10:59 AM Note Text: UPDATED PROCEDURAL SEDATION HISTORY AND PHYSICAL EXAMINATION SERVICE DATE: 01/19/2022 SERVICE TIME: 10:58 AM PHYSICAL EXAM MUST BE COMPLETED ON ADMISSION PROCEDURE: EGD Procedure Indications: dysphagia The History and Physical (completed in the past 30 days) has been reviewed and the patient has been examined. The contents accurately reflect the patient's condition with the following additions or revisions since the HANDP was completed. ASA Class: 2 Examination indicates no changes. AIRWAY: clear LUNGS: clear CARDIAC: , regular Provisional Diagnosis/Treatment Plan: as above This HANDP can be found in the Electronic Medical Record. SIGNATURE: Eliecer Britton MD PATIENT NAME: Chio Dent Jr. DATE: January 19, 2022 TIME: 10:58 AM Normal [facility] No Panel Informationon 01-17 [facility] Absolute lymphocyte counton 01-10-2022 Lymphocytes Auto (Unsp spec) [#/Vol] 1.98 10*3/uL 0.83-4.51 [facility] Work Phone: Basophil percentageon 2021 Basophils/100 WBC (Bld) 0.5 % 0-1 [facility] Work Phone: Chloride [Moles/Vol] 104 mmol/L 98-107 [facility] Work Phone: Eosinophils/100 WBC (Bld) 6.3 % 0-5 [facility] Work Phone: Glucose [Mass/Vol] 145 mg/dL 74-106 [facility] Work Phone: Comment on above: Fasting Glucose resu lt greater than or equal to 126 mg/dL suggests DIABETES MELLITUS per A.D.A. criteria. Neutrophils (Bld) [#/Vol] 6.0 10*3/uL 2.0-7.7 [facility] Work Phone: Neutrophils/100 WBC (Bld) 61.1 % 47-70 [facility] Work Phone: Potassium [Moles/Vol] 4.0 mmol/L 3.5-5.1 [facility] Work Phone: Comment on above: Moderate Hemolysis, Result may be falsely increased. Sodium [Moles/Vol] 137 mmol/L 136-145 [facility] Work Phone: WBC (Bld) [#/Vol] 9.8 10*3/uL 4.4-11.0 [facility] Work Phone: Blood erythrocytes count (nu mber/volume)on 01-10-2022 RBC (Bld) [#/Vol] 4.98 10*6/uL 4.6-6.2 [facility]: Blood hemoglobin measurement (mass/volume)on 01-10-2022 Hemoglobin (Bld) [Mass/Vol] 14.8 g/dL 13.0-16.5 [facility] Work Phone: Blood lymphocytes/100 leukoc yteson 01-10-2022 Lymphocytes/100 WBC (Bld) 20.2 % 19-41 [facility] Work Phone: Blood monocytes/100 leukocyt eson 01-10-2022 Monocytes/100 WBC (Bld) 11.2 % 0-10 [facility] Work Phone: Blood platelet mean volumeon 01-10-2022 Platelet mean volume (Bld) [Entitic vol] 9.6 fL 6.2-12.0 [facility] Work Phone: Determination of erythrocyte mean corpuscular volume (MCV)on 01-10-2022 MCV (RBC) [Entitic vol] 89.0 fL 80-94 [facility] Work Phone: Hematocrit Auto (Bld) [Volum e fraction]on 01-10-2022 Hematocrit (Bld) [Volume fraction] 44.3 % 40-54 [facility] Work Phone: Laboratory - Chemistry and C hemistry - challengeon 01-10-2022 CO2 [Moles/Vol] 26.0 mmol/L 21.0-32.0 [facility] Work Phone: Urea nitrogen/Creatinine [Mass ratio] 11.5 mg/mg 10-20 [facility] Work Phone: Laboratory - Hematology and Cell countson 01-10-2022 Erythrocyte distribution width (RBC) [Entitic vol] 43.4 fL 35.1-43.9 [facility] Work Phone: Erythrocyte distribution width (RBC) [Ratio] 13.2 % 11.6-14.6 [facility] Work Phone: Immature granulocytes/100 WBC (Bld) 0.700 % 0.0-0.9 [facility] Work Phone: Comment on above: IG% - Immature Granu locytes (promyelocytes, myelocytes and metamyelocytes) > 1% indicates that a LEFT SHIFT is Present. MCH (RBC) [Entitic mass] 29.7 pg 27.0-32.0 [facility] Work Phone: Nucleated RBC/100 WBC (Bld) [Ratio] 0 % 0-5 [facility] Work Phone: MCHC Auto (RBC) [Mass/Vol]on 01-10-2022 MCHC (RBC) [Mass/Vol] 33.4 g/dL 32-36 [facility] Work Phone: No Panel Informationon 01-10 SARS-CoV-2 & FLU Antigen (Rapid) [facility] Work Phone: Estimated Creatinine Clearance Calc 73.08 ml/min [facility] Work Phone: Estimated GFR (MDRD) Amer 94 mL/min >60 [facility] Work Phone: Comment on above: GFR Calc Estimated GFR (MDRD) Non-Af Amer 77 mL/min >60 [facility] Work Phone: Comment on above: Non- GFR Calc Troponin I High Sensitivity 6 pg/mL 3.0-78.0 [facility] [place] Work Phone: Comment on above: Please Note: New Buffy t Units and Gender Specific Reference Ranges. For more information see Policy Stat Procedure [place] High Sensitivity Troponin (TNIH) and attachments. Platelets bldon 01-10-2022 Platelets (Bld) [#/Vol] 299 10*3/uL 150-450 [facility] [place] Work Phone: Serum or plasma calcium donald urement (mass/volume)on 01-10-2022 Calcium [Mass/Vol] 8.8 mg/dL 8.5-10.1 [facility] Work Phone: Serum or plasma creatinine m easurement (mass/volume)on 01-10-2022 Creatinine [Mass/Vol] 1.04 mg/dL 0.70-1.30 [facility] Work Phone: Comment on above: The validity of the calculated GFR & GFRAA in patients over 70 years has not been determined. Clinical correlation is essential. Serum or plasma urea nitroge n measurement (mass/volume)on 01-10-2022 Urea nitrogen [Mass/Vol] 12 mg/dL 7-18 [facility] [place] Work Phone: Thin prep Papanicolaou smear with manual screeningon 01-10-2022 Thin prep Papanicolaou smear with manual screening 7 5-15 [facility] [place] Work Phone: US THYROID/PARATHYROIDon [facility] Absolute lymphocyte counton 12-13-2021 Lymphocytes Auto (Unsp spec) [#/Vol] 0.50 10*3/uL 0.83-4.51 [facility] [place] Work Phone: Basophil percentageon 2021 Basophils/100 WBC (Bld) 0.2 % 0-1 [facility] [place] Work Phone: Chloride [Moles/Vol] 107 mmol/L 98-107 [facility] Work Phone: Eosinophils/100 WBC (Bld) 0.0 % 0-5 [facility] [place] Work Phone: Glucose [Mass/Vol] 166 mg/dL 74-106 [facility] Work Phone: Comment on above: Fasting Glucose resu lt greater than or equal to 126 mg/dL suggests DIABETES MELLITUS per A.D.A. criteria. Neutrophils (Bld) [#/Vol] 3.8 10*3/uL 2.0-7.7 [facility] [place] Work Phone: Neutrophils/100 WBC (Bld) 83.4 % 47-70 [facility] [place] Work Phone: Potassium [Moles/Vol] 4.6 mmol/L 3.5-5.1 [facility] Work Phone: Sodium [Moles/Vol] 137 mmol/L 136-145 [facility] Work [facility]: WBC (Bld) [#/Vol] 4.6 10*3/uL 4.4-11.0 [facility] Work Phone: Blood erythrocytes count (nu mber/volume)on 12-13-2021 RBC (Bld) [#/Vol] 4.58 10*6/uL 4.6-6.2 [facility]: Blood hemoglobin measurement (mass/volume)on 12-13-2021 Hemoglobin (Bld) [Mass/Vol] 13.4 g/dL 13.0-16.5 [facility] [place] Work Phone: Blood lymphocytes/100 leukoc yteson 12-13-2021 Lymphocytes/100 WBC (Bld) 10.9 % 19-41 [facility] [place] Work Phone: Blood manual differential co mment interpretation (narrative result)on 12-13-2021 Manual differential comment Elmer (Bld) [Interp] SCANNED [facility] [place] Work Phone: Comment on above: LYMPHOPENIA NOTED Blood monocytes/100 leukocyt eson 12-13-2021 Monocytes/100 WBC (Bld) 4.6 % 0-10 [facility] [place] Work Phone: Blood platelet mean volumeon 12-13-2021 Platelet mean volume (Bld) [Entitic vol] 9.6 fL 6.2-12.0 [facility] [place] Work Phone: Determination of erythrocyte mean corpuscular volume (MCV)on 12-13-2021 MCV (RBC) [Entitic vol] 89.1 fL 80-94 [facility] [place] Work Phone: Hematocrit Auto (Bld) [Volum e fraction]on 12-13-2021 Hematocrit (Bld) [Volume fraction] 40.8 % 40-54 [facility] [place] Work Phone: Laboratory - Chemistry and C hemistry - challengeon 12-13-2021 CO2 [Moles/Vol] 26.0 mmol/L 21.0-32.0 [facility] [place] Work Phone: Urea nitrogen/Creatinine [Mass ratio] 16.6 mg/mg 10-20 [facility] [place] Work Phone: Laboratory - Hematology and Cell countson 12-13-2021 Erythrocyte distribution width (RBC) [Entitic vol] 43.0 fL 35.1-43.9 [facility] [place] Work Phone: Erythrocyte distribution width (RBC) [Ratio] 13.2 % 11.6-14.6 [facility] [place] Work Phone: Immature granulocytes/100 WBC (Bld) 0.900 % 0.0-0.9 [facility] [place] Work Phone: Comment on above: IG% - Immature Granu locytes (promyelocytes, myelocytes and metamyelocytes) > 1% indicates that a LEFT SHIFT is Present. MCH (RBC) [Entitic mass] 29.3 pg 27.0-32.0 [facility] [place] Work Phone: Nucleated RBC/100 WBC (Bld) [Ratio] 0 % 0-5 [facility] [place] Work Phone: MCHC Auto (RBC) [Mass/Vol]on 12-13-2021 MCHC (RBC) [Mass/Vol] 32.8 g/dL 32-36 [facility] Work Phone: No Panel Informationon 12-13 Estimated Creatinine Clearance Calc 105.56 ml/min [facility] [place] Work Phone: Estimated GFR (MDRD) Amer 143 mL/min >60 [facility] [place] Work Phone: Comment on above: GFR Calc Estimated GFR (MDRD) Non-Af Amer 118 mL/min >60 [facility] [place] Work Phone: Comment on above: Non- GFR Calc Platelets bldon 12-13-2021 Platelets (Bld) [#/Vol] 306 10*3/uL 150-450 [facility] [place] Work Phone: Serum or plasma calcium donald urement (mass/volume)on 12-13-2021 Calcium [Mass/Vol] 8.4 mg/dL 8.5-10.1 [facility] Work Phone: Serum or plasma creatinine m easurement (mass/volume)on 12-13-2021 Creatinine [Mass/Vol] 0.72 mg/dL 0.70-1.30 [facility] Work Phone: Comment on above: The validity of the calculated GFR & GFRAA in patients over 70 years has not been determined. Clinical correlation is essential. Serum or plasma urea nitroge n measurement (mass/volume)on 12-13-2021 Urea nitrogen [Mass/Vol] 12 mg/dL 7-18 [facility] [place] Work Phone: Thin prep Papanicolaou smear with manual screeningon 12-13-2021 Thin prep Papanicolaou smear with manual screening 4 5-15 [facility] [place] Work Phone: Absolute lymphocyte counton 12-12-2021 Lymphocytes Auto (Unsp spec) [#/Vol] 1.94 10*3/uL 0.83-4.51 [facility] [place] Work Phone: Basophil percentageon 2021 Basophils/100 WBC (Bld) 0.5 % 0-1 [facility] [place] Work Phone: Chloride [Moles/Vol] 106 mmol/L 98-107 [facility]: Eosinophils/100 WBC (Bld) 2.4 % 0-5 [facility] [place] Work Phone: Glucose [Mass/Vol] 114 mg/dL 74-106 [facility] Work Phone: Comment on above: Fasting Glucose resu lt from 100 to 125 mg/dL suggests IMPAIRED HOMEOSTASIS per A.D.A. criteria. Lactate [Moles/Vol] 1.4 mmol/L 0.4-2.0 [facility] Work Phone: Neutrophils (Bld) [#/Vol] 9.1 10*3/uL 2.0-7.7 [facility] [place] Work Phone: Neutrophils/100 WBC (Bld) 70.5 % 47-70 [facility] [place] Work Phone: Potassium [Moles/Vol] 3.2 mmol/L 3.5-5.1 [facility] Work Phone: Sodium [Moles/Vol] 139 mmol/L 136-145 [facility] Work Phone: WBC (Bld) [#/Vol] 12.9 10*3/uL 4.4-11.0 [facility] Work Phone: Blood erythrocytes count (nu mber/volume)on 12-12-2021 RBC (Bld) [#/Vol] 4.74 10*6/uL 4.6-6.2 [facility] Work Phone: Blood hemoglobin measurement (mass/volume)on 12-12-2021 Hemoglobin (Bld) [Mass/Vol] 13.9 g/dL 13.0-16.5 [facility] [place] Work Phone: [phone] Blood lymphocytes/100 leukoc yteson 12-12-2021 Lymphocytes/100 WBC (Bld) 15.1 % 19-41 [facility] [place] Work Phone: Blood monocytes/100 leukocyt eson 12-12-2021 Monocytes/100 WBC (Bld) 10.6 % 0-10 [facility] [place] Work Phone: Blood platelet mean volumeon 12-12-2021 Platelet mean volume (Bld) [Entitic vol] 9.5 fL 6.2-12.0 [facility] [place] Work Phone: [phone] Determination of erythrocyte mean corpuscular volume (MCV)on 12-12-2021 MCV (RBC) [Entitic vol] 89.9 fL 80-94 [facility] [place] Work Phone: Gram stain for investigation of transfusion reactionon 12-12-2021 Microscopic observation Gram stain Nom (Unsp spec) [facility] [place] Work Phone: Hematocrit Auto (Bld) [Volum e fraction]on 12-12-2021 Hematocrit (Bld) [Volume fraction] 42.6 % 40-54 [facility] [place] Work Phone: Laboratory - Chemistry and C hemistry - challengeon 12-12-2021 CO2 [Moles/Vol] 26.0 mmol/L 21.0-32.0 [facility] [place] Work Phone: Urea nitrogen/Creatinine [Mass ratio] 12.6 mg/mg 10-20 [facility] [place] Work Phone: Laboratory - Hematology and Cell countson 12-12-2021 Erythrocyte distribution width (RBC) [Entitic vol] 42.9 fL 35.1-43.9 [facility] [place] Work Phone: Erythrocyte distribution width (RBC) [Ratio] 13.1 % 11.6-14.6 [facility] [place] Work Phone: Immature granulocytes/100 WBC (Bld) 0.900 % 0.0-0.9 [facility] [place] Work Phone: Comment on above: IG% - Immature Granu locytes (promyelocytes, myelocytes and metamyelocytes) > 1% indicates that a LEFT SHIFT is Present. MCH (RBC) [Entitic mass] 29.3 pg 27.0-32.0 [facility] [place] Work Phone: Nucleated RBC/100 WBC (Bld) [Ratio] 0 % 0-5 [facility] [place] Work Phone: Laboratory - Microbiology an d Antimicrobial susceptibilityon 12-12-2021 Bacteria identified Cx Nom (Bld) No growth in 5 days. [facility] [place] Work Phone: MCHC Auto (RBC) [Mass/Vol]on 12-12-2021 MCHC (RBC) [Mass/Vol] 32.6 g/dL 32-36 [facility] Work Phone: No Panel Informationon 12-12 Estimated Creatinine Clearance Calc 87.36 ml/min [facility] [place] Work Phone: Estimated GFR (MDRD) Amer 115 mL/min >60 [facility] [place] Work Phone: Comment on above: GFR Calc Estimated GFR (MDRD) Non-Af Amer 95 mL/min >60 [facility] [place] Work Phone: Comment on above: Non- GFR Calc Troponin I High Sensitivity 6 pg/mL 3.0-78.0 [facility] [place] Work Phone: Comment on above: Please Note: New Buffy t Units and Gender Specific Reference Ranges. For more information see Policy Stat Procedure [place] High Sensitivity Troponin (TNIH) and attachments. Platelets bldon 12-12-2021 Platelets (Bld) [#/Vol] 313 10*3/uL 150-450 [facility] [place] Work Phone: Serum or plasma calcium donald urement (mass/volume)on 12-12-2021 Calcium [Mass/Vol] 8.9 mg/dL 8.5-10.1 [facility] Work Phone: Serum or plasma creatinine m easurement (mass/volume)on 12-12-2021 Creatinine [Mass/Vol] 0.87 mg/dL 0.70-1.30 [facility] Work Phone: Comment on above: The validity of the calculated GFR & GFRAA in patients over 70 years has not been determined. Clinical correlation is essential. Serum or plasma urea nitroge n measurement (mass/volume)on 12-12-2021 Urea nitrogen [Mass/Vol] 11 mg/dL 7-18 [facility] [place] Work Phone: Thin prep Papanicolaou smear with manual screeningon 12-12-2021 Thin prep Papanicolaou smear with manual screening 7 5-15 [facility] [place] Work Phone: Basophil percentageon 2021 Chloride [Moles/Vol] 95 mmol/L 98-107 [facility] Work Phone: Glucose [Mass/Vol] 109 mg/dL 74-106 [facility] Work Phone: Comment on above: Fasting Glucose resu lt from 100 to 125 mg/dL suggests IMPAIRED HOMEOSTASIS per A.D.A. criteria. Potassium [Moles/Vol] 3.7 mmol/L 3.5-5.1 [facility] Work Phone: Sodium [Moles/Vol] 129 mmol/L 136-145 [facility] Work Phone: Laboratory - Chemistry and C hemistry - challengeon 09-15-2021 CO2 [Moles/Vol] 27.0 mmol/L 21.0-32.0 [facility] [place] Work Phone: Urea nitrogen/Creatinine [Mass ratio] 18.8 mg/mg 10-20 [facility] [place] Work Phone: No Panel Informationon 09-15 Estimated Creatinine Clearance Calc 76.43 ml/min [facility] [place] Work Phone: Estimated GFR (MDRD) Amer 110 mL/min >60 [facility] [place] Work Phone: Comment on above: GFR Calc Estimated GFR (MDRD) Non-Af Amer 91 mL/min >60 [facility] [place] Work Phone: Comment on above: Non- GFR Calc Serum or plasma calcium donald urement (mass/volume)on 09-15-2021 Calcium [Mass/Vol] 8.4 mg/dL 8.5-10.1 [facility] Work Phone: Serum or plasma creatinine m easurement (mass/volume)on 09-15-2021 Creatinine [Mass/Vol] 0.91 mg/dL 0.70-1.30 [facility] Work Phone: Comment on above: The validity of the calculated GFR & GFRAA in patients over 70 years has not been determined. Clinical correlation is essential. Serum or plasma urea nitroge n measurement (mass/volume)on 09-15-2021 Urea nitrogen [Mass/Vol] 17 mg/dL 7-18 [facility] [place] Work Phone: Thin prep Papanicolaou smear with manual screeningon 09-15-2021 Thin prep Papanicolaou smear with manual screening 268 mOsm/KG 275-295 [facility] [place] Work Phone: Thin prep Papanicolaou smear with manual screening 7 5-15 [facility] [place] Work Phone: Urine osmolality measurement on 09-15-2021 Osmolality (U) [Osmolality] 317 mOsm/KG [facility] [place] Work Phone: Comment on above: Normal Urine Referen ce Ranges Random: 50 - 1200 mOsm/kg H20 depending on fluid intake Random: >850 mOsm/kg after 12 hour fluid restriction 24 hour: ~300 - 900 mOsm/kg H2O Absolute lymphocyte counton 08-31-2021 Lymphocytes Auto (Unsp spec) [#/Vol] 0.74 10*3/uL 0.83-4.51 [facility] [place] Work Phone: Basophil percentageon 2020 Chloride [Moles/Vol] 102 mmol/L 98-107 [facility] Work Phone: Eosinophils/100 WBC (Bld) 0.0 % 0-5 [facility] [place] Work Phone: Glucose [Mass/Vol] 131 mg/dL 74-106 [facility] Work Phone: Comment on above: Fasting Glucose resu lt greater than or equal to 126 mg/dL suggests DIABETES MELLITUS per A.D.A. criteria.Please note revised GLUCOSE reference range effective 2017. Neutrophils (Bld) [#/Vol] 9.1 10*3/uL 2.0-7.7 [facility] [place] Work Phone: Potassium [Moles/Vol] 4.0 mmol/L 3.5-5.1 [facility] Work Phone: Sodium [Moles/Vol] 138 mmol/L 136-145 [facility] Work Phone: WBC (Bld) [#/Vol] 11.2 10*3/uL 4.4-11.0 [facility] Work Phone: Blood erythrocytes count (nu mber/volume)on 08-31-2021 RBC (Bld) [#/Vol] 4.58 10*6/uL 4.6-6.2 [facility] Work Phone: Blood hemoglobin measurement (mass/volume)on 08-31-2021 Hemoglobin (Bld) [Mass/Vol] 13.9 g/dL 13.0-16.5 [facility] [place] Work Phone: Blood lymphocytes/100 leukoc yteson 08-31-2021 Lymphocytes/100 WBC (Bld) 6.6 % 19-41 [facility] [place] Work Phone: Blood monocytes/100 leukocyt eson 08-31-2021 Monocytes/100 WBC (Bld) 10.7 % 0-10 [facility] [place] Work Phone: Blood platelet mean volumeon 08-31-2021 Platelet mean volume (Bld) [Entitic vol] 9.4 fL 6.2-12.0 [facility] [place] Work Phone: Determination of erythrocyte mean corpuscular volume (MCV)on 08-31-2021 MCV (RBC) [Entitic vol] 89.3 fL 80-94 [facility] [place] Work Phone: Hematocrit Auto (Bld) [Volum e fraction]on 08-31-2021 Hematocrit (Bld) [Volume fraction] 40.9 % 40-54 [facility] [place] Work Phone: Laboratory - Chemistry and C hemistry - challengeon 08-31-2021 CO2 [Moles/Vol] 28.0 mmol/L 21.0-32.0 [facility] [place] Work Phone: Urea nitrogen/Creatinine [Mass ratio] 20.5 mg/mg 10-20 [facility] [place] Work Phone: Laboratory - Hematology and Cell countson 08-31-2021 Basophils/100 WBC (Unsp spec) 0.1 % 0-1 [facility] [place] Work Phone: Erythrocyte distribution width (RBC) [Entitic vol] 44.2 fL 35.1-43.9 [facility] [place] Work Phone: Erythrocyte distribution width (RBC) [Ratio] 13.5 % 11.6-14.6 [facility] [place] Work Phone: Immature granulocytes/100 WBC (Bld) 0.600 % 0.0-0.9 [facility] [place] Work Phone: Comment on above: IG% - Immature Granu locytes (promyelocytes, myelocytes and metamyelocytes) > 1% indicates that a LEFT SHIFT is Present. MCH (RBC) [Entitic mass] 30.3 pg 27.0-32.0 [facility] [place] Work Phone: Neutrophils/100 WBC (Bld) 82.0 % 47-70 [facility] [place] Work Phone: Nucleated RBC/100 WBC (Bld) [Ratio] 0 % 0-5 [facility] [place] Work Phone: MCHC Auto (RBC) [Mass/Vol]on 08-31-2021 MCHC (RBC) [Mass/Vol] 34.0 g/dL 32-36 [facility] Work Phone: No Panel Informationon 08-31 Estimated Creatinine Clearance Calc 74.20 ml/min [facility] [place] Work Phone: Estimated GFR (MDRD) Amer 101 mL/min >60 [facility] [place] Work Phone: Comment on above: GFR Calc Estimated GFR (MDRD) Non-Af Amer 83 mL/min >60 [facility] Work Phone: Comment on above: Non- GFR Calc Platelets bldon 08-31-2021 Platelets (Bld) [#/Vol] 312 10*3/uL 150-450 [facility] [place] Work Phone: Serum or plasma calcium donald urement (mass/volume)on 08-31-2021 Calcium [Mass/Vol] 8.8 mg/dL 8.5-10.1 [facility] Work Phone: Serum or plasma creatinine m easurement (mass/volume)on 08-31-2021 Creatinine [Mass/Vol] 0.98 mg/dL 0.70-1.30 [facility] Work Phone: Comment on above: The validity of the calculated GFR & GFRAA in patients over 70 years has not been determined. Clinical correlation is essential. Serum or plasma urea nitroge n measurement (mass/volume)on 08-31-2021 Urea nitrogen [Mass/Vol] 20 mg/dL 7-18 [facility] [place] Work Phone: Thin prep Papanicolaou smear with manual screeningon 08-31-2021 Thin prep Papanicolaou smear with manual screening 8 5-15 [facility] Work Phone: Laboratory - Chemistry and C hemistry - challengeon 08-30-2021 Magnesium [Mass/Vol] 2.4 mg/dL 1.6-2.6 [facility] Work Phone: No Panel Informationon 08-29 Influenza Types A,B Direct FA (BERTHA) [facility] Work Phone: No Panel Informationon 08-28 Troponin I High Sensitivity 9 pg/mL 3.0-78.0 [facility] Work Phone: Comment on above: Please Note: New Buffy t Units and Gender Specific Reference Ranges. For more information see Policy Stat Procedure [place] High Sensitivity Troponin (TNIH) and attachments. CBCon 03-28-2018 ABSOLUTE BAS 0.1 X10 Normal [facility] Comment on above: Performed By: #### B MANAGER OF [employer] ####Testing performed at [address] [address]#### CHEM7F, ACBC, ITROT ####Testing performed at [address] [address] ABSOLUTE EOS 0.00 X10 Normal [facility] Comment on above: Performed By: #### B MANAGER [employer] ####Testing performed at [place] [id number]#### CHEM7F, ACBC, ITROT ####Testing performed at [address] [place] [address] ABSOLUTE NEUTROPHIL COUNT 5.5 x10 Normal 1.0-7.0 [facility] Comment on above: Performed By: #### B MANAGER [employer] ####Testing performed at [address] [address]#### CHEM7F, ACBC, ITROT ####Testing performed at [address] [address] Basophils/100 WBC Auto (Bld) 1.0 % Normal 0.0-2.0 [facility] Comment on above: Performed By: #### B MANAGER [employer] ####Testing performed at [place] [id number]#### CHEM7F, ACBC, ITROT ####Testing performed at [address] [address] DTYPE AUTO DIFF Normal [facility] Comment on above: Performed By: #### B MANAGER [employer] ####Testing performed at [address], [facility]#### CHEM7F, ACBC, ITROT ####Testing performed at [address] [address] Eosinophils/100 WBC Auto (Bld) 0.1 % Normal 0.0-11.0 [facility] Comment on above: Performed By: #### B MANAGER [employer] ####[place] [address]#### CHEM7F, ACBC, ITROT ####Testing performed at [address] [address] Lymphocytes Auto #/vol (Bld) 0.30 X10 Normal [facility] Comment on above: Performed By: #### B MANAGER [employer] ####Testing performed at [address] [address]#### CHEM7F, ACBC, ITROT ####Testing performed at [address] [address] Lymphocytes/100 WBC Auto (Bld) 4.8 % Low 20.0-55.0 [facility] Comment on above: Performed By: #### B MANAGER [employer] ####Testing performed at [place] [id number]#### CHEM7F, ACBC, ITROT ####Testing performed at [address] [address] Monocytes Auto #/vol (Bld) 0.1 X10 Normal [facility] Comment on above: Performed By: #### B MANAGER [employer] ####[place] [address]#### CHEM7F, ACBC, ITROT ####Testing performed at [address] [address] Monocytes/100 WBC Auto (Bld) 1.5 % Normal 0.0-10.0 [facility] Comment on above: Performed By: #### B MANAGER [employer] ####[place] [address]#### CHEM7F, ACBC, ITROT ####Testing performed at [address] [address] Neutrophils/100 WBC Auto (Bld) 92.6 % High 37.0-75.0 [facility] Comment on above: Performed By: #### B MANAGER [employer] ####[place] [address]#### CHEM7F, ACBC, ITROT ####Testing performed at [address] [address] Erythrocyte distribution width Auto Ratio (RBC) 14.0 % Normal 11.5-14.5 [facility] Comment on above: Performed By: #### B MANAGER [employer] ####Testing performed at [place] [id number]#### CHEM7F, ACBC, ITROT ####Testing performed at [address] [address] Hematocrit Auto Volume Fraction (Bld) 38.5 % Low 42.0-52.0 [facility] Comment on above: Performed By: #### B MANAGER [employer] ####Testing performed at [place] [id number]#### CHEM7F, ACBC, ITROT ####[place] [address] Hemoglobin mass conc (Bld) 13.2 g/dL Low 14.0-18.0 [facility] Comment on above: Performed By: #### B MANAGER OF DISASTER RECOVERY ####[place] [address]#### CHEM7F, ACBC, ITROT ####[place] [address] MCH Auto Entitic mass (RBC) 30.4 pg Normal 26.0-35.0 [facility] Comment on above: Performed By: #### B MANAGER OF DISASTER RECOVERY ####[place] [address]#### CHEM7F, ACBC, ITROT ####[place] [address] MCHC Auto mass conc (RBC) 34.2 g/dL Normal 27.0-37.0 [facility] Comment on above: Performed By: #### B MANAGER OF DISASTER RECOVERY ####[place] [address]#### CHEM7F, ACBC, ITROT ####[place] [address] MCV Auto Entitic volume (RBC) 88.9 fL Normal 80.0-100.0 [facility] Comment on above: Performed By: #### B MANAGER OF DISASTER RECOVERY ####[place] [address]#### CHEM7F, ACBC, ITROT ####[place] [address] Platelet mean volume Auto Entitic volume (Bld) 7.6 fL Normal 7.4-11.0 [facility] Comment on above: Performed By: #### B MANAGER OF DISASTER RECOVERY ####[place] [address]#### CHEM7F, ACBC, ITROT ####Testing performed at [address] [address] Platelets Auto #/vol (Bld) 298 /cmm Normal 130.0-400. 0 [facility] Comment on above: Performed By: #### B MANAGER OF DISASTER RECOVERY ####[place] [address]#### CHEM7F, ACBC, ITROT ####[place] [address] RBC Auto #/vol (Bld) 4.33 /cmm Normal 4.0-6.1 [facility] Comment on above: Performed By: #### B MANAGER OF DISASTER RECOVERY ####[place] [address]#### CHEM7F, ACBC, ITROT ####[place] [address] WBC Auto #/vol (Bld) 5.9 /cmm Normal 3.6-11.0 [facility] Comment on above: Performed By: #### B MANAGER OF DISASTER RECOVERY ####[place] [address]#### CHEM7F, ACBC, ITROT ####[place] [address] CHEM 7 FASTINGon 03-28-2018 Creatinine mass conc 0.9 mg/dL Normal 0.66-1.25 [facility] Comment on above: Performed By: #### B MANAGER OF DISASTER RECOVERY ####Testing performed at [place] [id number]#### CHEM7F, ACBC, ITROT ####[place] [address] EST. GFR, >60 Normal [facility] Comment on above: Performed By: #### B MANAGER OF DISASTER RECOVERY ####[place] [address]#### CHEM7F, ACBC, ITROT ####Testing performed at [address] [address] EST. GFR,Non >60 Normal [facility] Comment on above: Performed By: #### B MANAGER OF DISASTER RECOVERY ####Testing performed at [address] [address]#### CHEM7F, ACBC, ITROT ####Testing performed at [place] [id number] GFR/1.73 sq M predicted among non-blacks MDRD vol rate/area (S/P/Bld) Average GFR for 50-59 years old = 93. Normal [facility] Comment on above: Result Comment: Surgical Instrument Repair Specialist fallon Kidney disease, GFR = <60.Kidney failure, GFR = <15.The GFR estimate is not adjusted for extreme body surface area or acute process, nor has it been validated for women or ethnic groups other than and . Performed By: #### B MANAGER OF DISASTER RECOVERY ####[place] [address]#### CHEM7F, ACBC, ITROT ####Testing performed at [address] [address] Urea nitrogen mass conc (Bld) 11 mg/dL Normal 7-20 [facility] Comment on above: Performed By: #### B MANAGER OF DISASTER RECOVERY ####Testing performed at [address] [address]#### CHEM7F, ACBC, ITROT ####Testing performed at [address] [address] Chloride molar conc 105 mmol/L Normal 98-107 [facility] Comment on above: Performed By: #### B MANAGER OF DISASTER RECOVERY ####Testing performed at [address] [address]#### CHEM7F, ACBC, ITROT ####Testing performed at [address] [address] CO2 molar conc 20 mmol/L Low 22-30 [facility] Comment on above: Performed By: #### B MANAGER OF DISASTER RECOVERY ####Testing performed [place] [address]#### CHEM7F, ACBC, ITROT ####Testing performed at [place] [id number] Glucose mass conc 159 mg/dL High 70-100 [facility] Comment on above: Result Comment: NORM AL <100 mg/dLPREDIABETES 101-126 mg/dLDIABETES 126 mg/dL or higher Performed By: #### B MANAGER OF DISASTER RECOVERY ####[place] [address]#### CHEM7F, ACBC, ITROT ####[place] [address] Potassium molar conc 4.5 mmol/L Normal 3.5-5.1 [facility] Comment on above: Performed By: #### B MANAGER OF DISASTER RECOVERY ####[place] [address]#### CHEM7F, ACBC, ITROT ####[place] [address] Sodium molar conc 135 mmol/L Low 136-145 [facility] Comment on above: Performed By: #### B MANAGER OF DISASTER RECOVERY ####Testing performed at [place] [id number]#### CHEM7F, ACBC, ITROT ####Testing performed at [address] [address] Certificatioon 03-28-2018 [facility] CAC NOTES Normal [facility] DISCH SUMMon 03-28-2018 [facility] NOTES Normal [facility] HISTORY AND PHYSICALon 03-28 [facility] NOTES Normal [facility] ISTAT TROPONIN Ion 8 Troponin I.cardiac mass conc ng/mL Normal 0-0.08 [facility] Comment on above: Performed By: #### B MANAGER OF DISASTER RECOVERY ####Testing performed at [place] [id number]#### CHEM7F, ACBC, ITROT ####Testing performed at [place] [id number] Troponin I.cardiac mass conc ng/mL Normal 0-0.08 [facility] Comment on above: Performed By: #### I TROT ####[place] [address] LACTIC ACIDon 03-28-2018 Lactate molar conc 2.4 mmol/L Critically high 0.5-2.0 [facility] Comment on above: Result Comment: PLEA SE REPEAT INITIAL CRITICAL IN 3 HOURS IF ED OR INPATIENT SEPSIS PATIENTResult called to read back by: DEISY JAIMES 03/28/2018 @ 05:45 by LAP Performed By: #### B MANAGER OF DISASTER RECOVERY ####[place] [address]#### CHEM7F, ACBC, ITROT ####[place] [address] MRSA SCREENon 03-28-2018 MRSA SCREEN Negative Normal [facility] Comment on above: Performed By: #### M RSAST ####[place] [address] STAPH AUREUS SCREEN Positive Normal [facility] Comment on above: Result Comment: TEST ING PERFORMED BY PCR Performed By: #### M RSAST ####[place] [address] NURSING NOTEon 03-28-2018 [facility] NOTES Normal [facility] NOT[facility] Normal [facility] NOT[facility] Normal [facility] NOT[facility] Normal [facility] NOT[facility] Normal [facility] PROGRESSon 03-28-2018 [facility] NOTES Normal [facility] NOT[facility] Normal [facility] B TYPE NATRIURETIC PEPTIDEon 03-27-2018 Natriuretic peptide B mass conc (Bld) 11 pg/mL Normal 0-100 [facility] Comment on above: Result Comment: Test ing performed at [place] [address] Performed By: #### B MANAGER OF DISASTER RECOVERY ####[place] [address]#### CHEM7F, ACBC, ITROT ####[place] [address] BLOOD CULTUREon 03-27-2018 Bacteria identified Cx Nom (Bld) SPECIMEN DESCRIPTION BLOOD SPECIAL REQUESTS LT ARM CULTURE NO GROWTH 5 DAYS * Result Note: Testing performed at [place] [address] * REPORT STATUS 04/01/2018 * Result Note: FINAL * Normal [facility] Comment on above: Performed By: #### B MANAGER OF DISASTER RECOVERY ####[place] [address]#### CHEM7F, ACBC, ITROT ####[place] [address] Bacteria identified Cx Nom (Bld) SPECIMEN DESCRIPTION BLOOD SPECIAL REQUESTS LT AC CULTURE NO GROWTH 5 DAYS * Result Note: Testing performed at [place] [address] * REPORT STATUS 04/01/2018 * Result Note: FINAL * Normal [facility] Comment on above: Performed By: #### B MANAGER OF DISASTER RECOVERY ####[place] [address]#### CHEM7F, ACBC, ITROT ####Testing performed at [address] [address] CBCon 03-27-2018 ABSOLUTE BAS 0.1 X10 Normal [facility] Comment on above: Performed By: #### B MANAGER OF DISASTER RECOVERY ####Testing performed at [place] [id number]#### CHEM7F, ACBC, ITROT ####[place] [address] ABSOLUTE EOS 0.30 X10 Normal [facility] Comment on above: Performed By: #### B MANAGER OF DISASTER RECOVERY ####Testing performed at [address] [address]#### CHEM7F, ACBC, ITROT ####Testing performed at [address] [address] ABSOLUTE NEUTROPHIL COUNT 14.8 x10 High 1.0-7.0 [facility] Comment on above: Performed By: #### B MANAGER OF DISASTER RECOVERY ####[place] [address]#### CHEM7F, ACBC, ITROT ####Testing performed at [address] [place] [address] Basophils/100 WBC Auto (Bld) 0.7 % Normal 0.0-2.0 [facility] Comment on above: Performed By: #### B MANAGER OF DISASTER RECOVERY ####Testing performed at [address] [address]#### CHEM7F, ACBC, ITROT ####Testing performed at [address] [address] DTYPE AUTO DIFF Normal [facility] Comment on above: Performed By: #### B MANAGER OF DISASTER RECOVERY ####Testing performed at [place] [id number]#### CHEM7F, ACBC, ITROT ####Testing performed at [address] [address] Eosinophils/100 WBC Auto (Bld) 1.8 % Normal 0.0-11.0 [facility] Comment on above: Performed By: #### B MANAGER OF DISASTER RECOVERY ####[place] [address]#### CHEM7F, ACBC, ITROT ####Testing performed at [address] [address] Lymphocytes Auto #/vol (Bld) 1.00 X10 Normal [facility] Comment on above: Performed By: #### B MANAGER OF DISASTER RECOVERY ####[place] [address]#### CHEM7F, ACBC, ITROT ####Testing performed at [address] [address] Lymphocytes/100 WBC Auto (Bld) 5.7 % Low 20.0-55.0 [facility] Comment on above: Performed By: #### B MANAGER OF DISASTER RECOVERY ####Testing performed at [address] [address]#### CHEM7F, ACBC, ITROT ####Testing performed at [address] [address] Monocytes Auto #/vol (Bld) 1.0 X10 Normal [facility] Comment on above: Performed By: #### B MANAGER OF DISASTER RECOVERY ####Testing performed at [address] [address]#### CHEM7F, ACBC, ITROT ####Testing performed at [address] [address] Monocytes/100 WBC Auto (Bld) 5.9 % Normal 0.0-10.0 [facility] Comment on above: Performed By: #### B MANAGER OF DISASTER RECOVERY ####Testing performed at [place] [id number]#### CHEM7F, ACBC, ITROT ####Testing performed at [place] [id number] Neutrophils/100 WBC Auto (Bld) 85.9 % High 37.0-75.0 [facility] Comment on above: Performed By: #### B MANAGER OF DISASTER RECOVERY ####[place] [address]#### CHEM7F, ACBC, ITROT ####[place] [address] Erythrocyte distribution width Auto Ratio (RBC) 13.9 % Normal 11.5-14.5 [facility] Comment on above: Performed By: #### B MANAGER OF DISASTER RECOVERY ####Testing performed at [place] [id number]#### CHEM7F, ACBC, ITROT ####Testing performed at [place] [id number] Hematocrit Auto Volume Fraction (Bld) 41.7 % Low 42.0-52.0 [facility] Comment on above: Performed By: #### B MANAGER OF DISASTER RECOVERY ####Testing performed at [place] [id number]#### CHEM7F, ACBC, ITROT ####Testing performed at [address] [address] Hemoglobin mass conc (Bld) 14.0 g/dL Normal 14.0-18.0 [facility] Comment on above: Performed By: #### B MANAGER OF DISASTER RECOVERY ####[place] [address]#### CHEM7F, ACBC, ITROT ####[place] [address] MCH Auto Entitic mass (RBC) 30.0 pg Normal 26.0-35.0 [facility] Comment on above: Performed By: #### B MANAGER OF DISASTER RECOVERY ####[place] [address]#### CHEM7F, ACBC, ITROT ####[place] [address] MCHC Auto mass conc (RBC) 33.4 g/dL Normal 27.0-37.0 [facility] Comment on above: Performed By: #### B MANAGER OF DISASTER RECOVERY ####[place] [address]#### CHEM7F, ACBC, ITROT ####[place] [address] MCV Auto Entitic volume (RBC) 89.6 fL Normal 80.0-100.0 [facility] Comment on above: Performed By: #### B MANAGER OF DISASTER RECOVERY ####[place] [address]#### CHEM7F, ACBC, ITROT ####[place] [address] Platelet mean volume Auto Entitic volume (Bld) 7.6 fL Normal 7.4-11.0 [facility] Comment on above: Performed By: #### B MANAGER OF DISASTER RECOVERY ####[place] [address]#### CHEM7F, ACBC, ITROT ####[place] [address] Platelets Auto #/vol (Bld) 343 /cmm Normal 130.0-400. 0 [facility] Comment on above: Performed By: #### B MANAGER OF DISASTER RECOVERY ####Testing performed at [place] [id number]#### CHEM7F, ACBC, ITROT ####[place] [address] RBC Auto #/vol (Bld) 4.66 /cmm Normal 4.0-6.1 [facility] Comment on above: Performed By: #### B MANAGER OF DISASTER RECOVERY ####[place] [address]#### CHEM7F, ACBC, ITROT ####[place] [address] WBC Auto #/vol (Bld) 17.2 /cmm High 3.6-11.0 [facility] Comment on above: Performed By: #### B MANAGER OF DISASTER RECOVERY ####[place] [address]#### CHEM7F, ACBC, ITROT ####[place] [address] CHEM 7 FASTINGon 03-27-2018 Creatinine mass conc 0.9 mg/dL Normal 0.66-1.25 [facility] Comment on above: Performed By: #### B MANAGER OF DISASTER RECOVERY ####[place] [address]#### CHEM7F, ACBC, ITROT ####Testing performed at [address] [address] EST. GFR, >60 Normal [facility] Comment on above: Performed By: #### B MANAGER OF DISASTER RECOVERY ####Testing performed at [address] [address]#### CHEM7F, ACBC, ITROT ####Testing performed at [address] [address] EST. GFR,Non >60 Normal [facility] Comment on above: Performed By: #### B MANAGER OF DISASTER RECOVERY ####[place] [address]#### CHEM7F, ACBC, ITROT ####Testing performed at [place] [id number] GFR/1.73 sq M predicted among non-blacks MDRD vol rate/area (S/P/Bld) Average GFR for 50-59 years old = 93. Normal [facility] Comment on above: Result Comment: Surgical Instrument Repair Specialist fallon Kidney disease, GFR = <60.Kidney failure, GFR = <15.The GFR estimate is not adjusted for extreme body surface area or acute process, nor has it been validated for women or ethnic groups other than and . Performed By: #### B MANAGER OF DISASTER RECOVERY ####[place] [address]#### CHEM7F, ACBC, ITROT ####[place] [address] Urea nitrogen mass conc (Bld) 10 mg/dL Normal 7-20 [facility] Comment on above: Performed By: #### B MANAGER OF DISASTER RECOVERY ####[place] [address]#### CHEM7F, ACBC, ITROT ####Testing performed at [place] [id number] Chloride molar conc 104 mmol/L Normal 98-107 [facility] Comment on above: Performed By: #### B MANAGER OF DISASTER RECOVERY ####[place] [address]#### CHEM7F, ACBC, ITROT ####Testing performed at [place] [id number] CO2 molar conc 22 mmol/L Normal 22-30 [facility] Comment on above: Performed By: #### B MANAGER OF DISASTER RECOVERY ####[place] [address]#### CHEM7F, ACBC, ITROT ####Testing performed at [address] [address] Glucose mass conc 113 mg/dL High 70-100 [facility] Comment on above: Result Comment: NORM AL <100 mg/dLPREDIABETES 101-126 mg/dLDIABETES 126 mg/dL or higher Performed By: #### B MANAGER OF DISASTER RECOVERY ####[place] [address]#### CHEM7F, ACBC, ITROT ####[place] [address] Potassium molar conc 4.1 mmol/L Normal 3.5-5.1 [facility] Comment on above: Performed By: #### B MANAGER OF DISASTER RECOVERY ####[place] [address]#### CHEM7F, ACBC, ITROT ####[place] [address] Sodium molar conc 135 mmol/L Low 136-145 [facility] Comment on above: Performed By: #### B MANAGER OF DISASTER RECOVERY ####[place] [address]#### CHEM7F, ACBC, ITROT ####Testing performed at [place] [id number] ISTAT TROPONIN Ion 8 Troponin I.cardiac mass conc 0.02 ng/mL Normal 0-0.08 [facility] Comment on above: Performed By: #### I TROT ####Testing performed at [address] [address] Troponin I.cardiac mass conc ng/mL Normal 0-0.08 [facility] Comment on above: Performed By: #### B MANAGER OF DISASTER RECOVERY ####[place] [address]#### CHEM7F, ACBC, ITROT ####Testing performed at [address] [address] LACTIC ACIDon 03-27-2018 Lactate molar conc 1.9 mmol/L Normal 0.5-2.0 [facility] Comment on above: Performed By: #### L ACT ####[place] [address] Lactate molar conc 2.4 mmol/L Critically high 0.5-2.0 [facility] Comment on above: Result Comment: PLEA SE REPEAT INITIAL CRITICAL IN 3 HOURS IF ED OR INPATIENT SEPSIS PATIENTResult called to read back by: LAURA CUENCA 03/27/2018 @ 18:38 by [facility] Performed By: #### L ACT ####Testing performed at [facility] [place] [address] NURSING NOTEon 03-27-2018 [facility] NOTES Normal [facility] XR CHEST PA AND LATERALon XR CHEST PA AND LATERAL TWO-VIEW CHEST:C OMPARISON: None.REASON FOR STUDY: Shortness of breath.REPORT:The lungs are clear and well aerated. Trachea, mediastinum and heart size are unremarkable. No effusion, nodule or pneumothorax is noted. The diaphragm and bony elements are intact.IMPRESSION: Nonacute two-view chest. Normal [facility] Office Visiton 03-01-2017 Fall risk assessment No [facility] Work Phone: [phone] Protein mass conc Done [facility] Work Phone: [phone] Replaced Document: Jeff CAMPO Observationson 03-01-2017 EKG QRS axis -8 deg [facility] Work Phone: [phone] electrocardiogram interpretation Sinus Rhythm Low voltage in limb leads. -Old inferior infarct. ABNORMAL Invalid Interpretation Code [facility] Work Phone: [phone] GE use only - for [employer] import when terms are not otherwise specified 408 ms Invalid Interpretation Code [facility] Work Phone: [phone] Interpretation Sinus Rhythm Low vol tage in limb leads. -Old inferior infarct. ABNORMAL [facility] Work Phone: [phone] P [place] 35 deg [facility] Work Phone: [phone] P wave axis, electrocardiogram 35 deg Invalid Interpretation Code [facility] Work Phone: [phone] NE Interval 128 ms [facility] Work Phone: [phone] NE interval, electrocardiogram 128 ms Invalid Interpretation Code [facility] Work Phone: [phone] Pulse (Heart Rate) 68 /min Invalid Interpretation Code [facility] Work Phone: [phone] QRS axis, electrocardiogram -8 deg Invalid Interpretation Code [facility] Work Phone: [phone] QRS Duration 88 ms [facility] Work Phone: [phone] QRS duration, electrocardiogram 88 ms Invalid Interpretation Code [facility] Work Phone: [phone] QT Interval new path ms [facility] Work Phone: [phone] QT interval, electrocardiogram new path ms Invalid Interpretation Code [facility] Work Phone: [phone] QTc [place] 408 ms [facility] Work Phone: [phone] T [place] -1 deg [facility] Work Phone: [phone] T wave axis, electrocardiogram -1 deg Invalid Interpretation Code [facility] Work Phone: [phone] Clinical Lists Update: 02-13-2017 ALP enzyme act/vol (Bld) 83 U/L [facility] Work Phone: [phone] ALT enzyme act/vol 16 U/L [facility] Work Phone: [phone] AST enzyme act/vol 10 U/L [facility] Work Phone: [phone] Bilirubin mass conc 0.3 mg/dL [facility] Work Phone: [phone] Cholesterol in HDL mass conc 34 mg/dL Low [facility] Work Phone: [phone] Cholesterol in LDL mass conc 66 mg/dL [facility] Work Phone: [phone]) Cholesterol mass conc 115 mg/dL Low [facility] Work Phone: [phone] Triglyceride mass conc 95 mg/dL [facility] Work Phone: [phone] Clinical Lists Update: 02-08-2017 Left ventricular Ejection fraction 60 % [facility] Work Phone: [phone]) Office Visit: [facility] 05-09-20 16 Documentation of current medications (procedure) Done Invalid Interpretation Code [facility] Work Phone: [phone] Lab Report: Lipid Profileon 01-10-2016 Cholesterol 127 mg/dL 200 [facility] Work Phone: [phone] HDL Cholesterol 32 mg/dL Low [facility] Work Phone: [phone] LDL Cholesterol 76 mg/dL 0-130 [facility] Work Phone: [phone] Triglyceride 97 mg/dL [facility] Work Phone: [phone] very low density lipoproteins 19 mg/dL 5-40 [facility] Work Phone: [phone]) Lab Report: Liver Profileon 01-10-2016 Alanine aminotransferase (ALT) 23 U/L 12-78 [facility] Work Phone: [phone] Albumin 3.3 g/dL Low 3.4-5.0 [facility] Work Phone: [phone] Alkaline phosphatase (ALP) 95 U/L Invalid Interpretation Code 50-136 [facility] Work Phone: [phone] ALP enzyme act/vol (Bld) 95 U/L 50-136 [facility] Work Phone: [phone] Aspartate aminotransferase (AST) 24 U/L 15-37 [facility] Work Phone: [phone] Bilirubin (direct) 0.08 mg/dL 0.00-0.30 [facility] Work Phone: [phone] Bilirubin (total) 0.30 mg/dL 0.20-1.00 [facility] Work Phone: [phone] Globulin 3.1 g/dL Invalid Interpretation Code 2.3-3.5 [facility] Work Phone: [phone] Globulin mass conc (S) 3.1 g/dL 2.3-3.5 [facility] Work Phone: [phone] Protein 6.4 g/dL 6.4-8.2 [facility] Work Phone: [phone] Clinical 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: 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 Chloride 108 mmol/L [facility] Work Phone: [phone] CO2 29.0 mmol/L Invalid Interpretation Code [facility] Work Phone: [phone] CO2 ppres (BldV) 29.0 mmol/L [facility] Work Phone: [phone] Creatinine 0.96 mg/dL [facility] Work Phone: [phone] Potassium 4.2 mmol/L [facility] Work Phone: [phone] Sodium 144 mmol/L [facility] Work Phone: [phone] Urea nitrogen 12 mg/dL [facility] Work Phone: [phone]) Office Visiton 10-24-2015 Tobacco smoking status NHIS current every day smoker [facility] Work Phone: [phone] Tobacco use CPHS current every day smoker Invali d Interpretation Code [facility] Work Phone: [phone]) Clinical Lists Update: gallery director 09-24-2015 Hematocrit (HCT) 49.1 % Invalid Interpretation Code [facility] Work Phone: [phone] Hematocrit Volume Fraction (Bld) 49.1 % [facility] Work Phone: [phone] Hemoglobin (HGB) 16.2 g/dL [facility] Work Phone: [phone] Platelets 252 10*3/mm3 Invalid Interpretation Code [facility] Work Phone: [phone] Platelets #/vol (Bld) 252 10*3/mm3 [facility] Work Phone: [phone] WBC #/vol (Bld) 13.6 10*3/uL [facility] Work Phone: [phone] WBC (Leukocytes) 13.6 10*3/uL Invalid Interpretation Code [facility] Work Phone: [phone]) Office Visit: [facility] 06-28-20 15 Protein mass conc yes [facility] Work Phone: [phone] Smoking cessation education (procedure) yes Invalid Interpretation Code [facility] Work Phone: [phone] Clinical Lists Update: Pre gallery director 12-07-2014 Anion gap 9 mmol/L Invalid Interpretation Code [facility] Work Phone: [phone] Anion gap molar conc 9 mmol/L [facility] Work Phone: [phone] BUN/Creatinine Ratio 10 mg/mg [facility] Work Phone: [phone] Calcium 8.6 mg/dL [facility] Work Phone: [phone] Glucose 147 mg/dL High [facility] Work Phone: [phone] Glucose mass conc 147 mg/dL High [employer] Work Phone: [phone] Magnesium 1.8 mg/dL [employer] Work Phone: [phone] Thyroid stimulating hormone (TSH) 0.44 u[iU]/mL [facility] [email or web address] Work Phone: [phone]) Office Visiton 10-29-2014 cardiac risk group [employer] Work Phone: [phone] General cardiovascular disease 10Y risk [#] [place].D'Agostino N/A [employer] Work Phone: [phone] Lab Report: [facility] 013 GE use only - for [employer] import when terms are not otherwise specified 6.9 g/dL Invalid Interpretation Code 6.4-8.2 [employer] Work Phone: [phone] Replaced Document: Jeff Vidales Observationson 05-14-2013 electrocardiogram interpretation Sinus Rhythm -Inferior infarct -probably not recent -Prominent R(V1) -true posterior extension of inferior IL -Left axis -may be secondary to infarct . ABNORMAL Invalid Interpretation Code [employer] Work Phone: [phone] P wave axis, electrocardiogram 37 deg Invalid Interpretation Code [employer] Work Phone: [phone] NE interval, electrocardiogram 126 ms Invalid Interpretation Code [employer] Work Phone: [phone] Pulse (Heart Rate) 409 ms Invalid Interpretation Code [employer] Work Phone: [phone] Pulse (Heart Rate) 69 /min Invalid Interpretation Code [employer] Work Phone: [phone] QRS axis, electrocardiogram -26 deg Invalid Interpretation Code [employer] Work Phone: [phone] QRS duration, electrocardiogram 94 ms Invalid Interpretation Code [employer] Work Phone: [phone] QT interval, electrocardiogram new path ms Invalid Interpretation Code [employer] Work Phone: [phone] T wave axis, electrocardiogram -1 deg Invalid Interpretation Code [employer] Work Phone: [phone] Lab Report: Drawn @ [facility] 01-05-2013 Erythrocyte distribution width Ratio (RBC) 14.2 % [employer] Work Phone: [phone] Erythrocytes (RBC) 4.94 10*6/uL Invalid Interpretation Code [facility] Work Phone: [phone] MCH 30.6 pg Invalid Interpretation Code [facility] Work Phone: [phone] MCH Entitic mass (RBC) 30.6 pg [facility] Work Phone: [phone] MCHC 33.4 % Invalid Interpretation Code [facility] Work Phone: [phone] MCHC mass conc (RBC) 33.4 % [facility] Work Phone: [phone] MCV 91.5 fL Invalid Interpretation Code [facility] Work Phone: [phone] MCV Entitic volume (RBC) 91.5 fL [facility] Work Phone: [phone] RBC #/vol (Bld) 4.94 10*6/uL [facility] Work Phone: [phone] RDW-CA 14.2 % Invalid Interpretation Code [facility] Work Phone: [phone] Vital Signs Date Time Vital Sign Value Performing Clinician Facility 03-29-2025 10:18-0400 Body height 172.[address] Alexey Mayberry MD Work Phone: [facility] [place] 03-29-2025 10:18-0400 Body mass index (BMI) [Ratio] 23.5 kg/m2 Dr. Alexey Mayberry MD Work Phone: [facility] [place] 03-29-2025 10:18-0400 Body temperature 98.6 [degF] Dr. Alexey Mayberry MD Work Phone: [facility] [place] 03-29-2025 10:18-0400 Body weight 70.[address] Alexey Mayberry MD Work Phone: [facility] [place] 03-29-2025 10:18-0400 Diastolic blood pressure 72 mm[Hg] Dr. Alexey Mayberry MD Work Phone: [facility] [place] 03-29-2025 10:18-0400 Heart rate 88 /min Dr. Alexey Mayberry MD Work Phone: [facility] [place] 03-29-2025 10:18-0400 Respiratory rate 16 /min Dr. Alexey Mayberry MD Work Phone: [facility] [place] 03-29-2025 10:18-0400 SaO2% (BldA) [Mass fraction] 94 % Dr. Alexey Mayberry MD Work Phone: [facility] [place] 03-29-2025 10:18-0400 Systolic blood pressure 130 mm[Hg] Dr. Alexey Mayberry MD Work Phone: [facility] [place] 03-19-2025 10:39-0400 Body height 165.1 cm Alexey Mayberry MD Work Phone: [facility] 03-19-2025 10:39-0400 Body mass index (BMI) [Ratio] 26.6 kg/m2 Alexey Mayberry MD Work Phone: [facility] 03-19-2025 10:39-0400 Body temperature 97.2 [degF] Alexey Mayberry MD Work Phone: [facility] 03-19-2025 10:39-0400 Body weight 72.5 kg Alexey Mayberry MD Work Phone: [facility] 03-19-2025 10:39-0400 Diastolic blood pressure 74 mm[Hg] Alexey Mayberry MD Work Phone: [facility] 03-19-2025 10:39-0400 Heart rate 74 /min Alexey Mayberry MD Work Phone: [facility] 03-19-2025 10:39-0400 Respiratory rate 14 /min Alexey Mayberry MD Work Phone: [facility] 03-19-2025 10:39-0400 SaO2% (BldA) [Mass fraction] 97 % Alexey Mayberry MD Work Phone: [facility] 03-19-2025 10:39-0400 Systolic blood pressure 114 mm[Hg] Alexey Mayberry MD Work Phone: [facility] 03-12-2025 10:54-0400 Body height 163.8 cm Bob Rebolledo MD Work Phone: [facility] 03-12-2025 10:54-0400 Body mass index (BMI) [Ratio] 26.87 kg/m2 Bob Rebolledo MD Work Phone: [facility] 03-12-2025 10:54-0400 Body temperature 97.3 [degF] Bob Rebolledo MD Work Phone: [facility] 03-12-2025 10:54-0400 Body weight 72.12 kg Bob Rebolledo MD Work Phone: [facility] 02-26-2025 11:54-0400 Body height 163.8 cm Bob Rebolledo MD Work Phone: [facility] 02-26-2025 11:54-0400 Body mass index (BMI) [Ratio] 26.7 kg/m2 Bob Rebolledo MD Work Phone: [facility] 02-26-2025 11:54-0400 Body temperature 98.2 [degF] Bob Rebolledo MD Work Phone: [facility] 02-26-2025 11:54-0400 Body weight 71.67 kg Bob Rebolledo MD Work Phone: [facility] 02-24-2025 13:56-0400 Body height 172.72 cm Jose Duff MD Work Phone: [facility] [place] 02-24-2025 13:56-0400 Body mass index (BMI) [Ratio] 24 kg/m2 Jose Duff MD Work Phone: [facility] [place] 02-24-2025 13:56-0400 Body temperature 98.3 [degF] Jose Duff MD Work Phone: [facility] 02-24-2025 13:56-0400 Body weight 71.78 kg Jose Duff MD Work Phone: 6(265)424-593324 [place] [address] 02-24-2025 13:56-0400 Diastolic blood pressure 81 mm[Hg] Jose Duff MD Work Phone: 3(305)400-782624 [place] [address] 02-24-2025 13:56-0400 Heart rate 90 /min Jose Duff MD Work Phone: 2(929)737-544427 [place] [address] 02-24-2025 13:56-0400 Respiratory rate 16 /min Jose Duff MD Work Phone: 6(203)493-840324 [place] [address] 02-24-2025 13:56-0400 SaO2% (BldA) [Mass fraction] 94 % Jose Duff MD Work Phone: 5(109)571-165927 [place] [address] 02-24-2025 13:56-0400 Systolic blood pressure 116 mm[Hg] Jose Duff MD Work Phone: 0(909)605-089527 [place] [address] 02-09-2025 16:14-0400 Body temperature 98.3 [degF] Jose Duff MD Work Phone: 0(443)756-444924 [place] [address] 02-09-2025 16:14-0400 Diastolic blood pressure 65 mm[Hg] Jose Duff MD Work Phone: 2(788)903-860924 [place] [address] 02-09-2025 16:14-0400 Heart rate 76 /min Jose Duff MD Work Phone: 7(992)732-593327 [place] [address] 02-09-2025 16:14-0400 Respiratory rate 16 /min Jose Duff MD Work Phone: 1(438)154-854727 [place] [address] 02-09-2025 16:14-0400 SaO2% (BldA) [Mass fraction] 96 % Jose Duff MD Work Phone: 5(853)723-659024 [place] [address] 02-09-2025 16:14-0400 Systolic blood pressure 110 mm[Hg] Joes Duff MD Work Phone: 0(617)957-117627 [place] [address] 02-09-2025 15:27-0400 Body temperature 98.3 [degF] No Primary Care Physician [facility] 02-09-2025 15:27-0400 Diastolic blood pressure 65 mm[Hg] No Primary Care Physician [facility] 02-09-2025 15:27-0400 Heart rate 76 /min No Primary Care Physician [facility] 02-09-2025 15:27-0400 Respiratory rate 16 /min No Primary Care Physician [facility] [place] 02-09-2025 15:27-0400 SaO2% (BldA) [Mass fraction] 96 % No Primary Care Physician [facility] [place] 02-09-2025 15:27-0400 Systolic blood pressure 110 mm[Hg] No Primary Care Physician [facility] [place] 02-09-2025 12:50-0400 Body height 172.72 cm No Primary Care Physician [facility] [place] 02-09-2025 12:50-0400 Body mass index (BMI) [Ratio] 23.9 kg/m2 No Primary Care Physician [facility] [place] 02-09-2025 12:50-0400 Body weight 71.4 kg No Primary Care Physician [facility] [place] 02-05-2025 16:42-0400 Body height 165.1 cm Alexey Mayberry MD Work Phone: [facility] 02-05-2025 16:42-0400 Body mass index (BMI) [Ratio] 26.67 kg/m2 Alexey Mayberry MD Work Phone: [facility] 02-05-2025 16:42-0400 Body weight 72.7 kg Alexey Mayberry MD Work Phone: [facility] 02-05-2025 16:42-0400 Diastolic blood pressure 74 mm[Hg] Alexey Mayberry MD Work Phone: [facility] 02-05-2025 16:42-0400 Heart rate 82 /min Alexey Mayberry MD Work Phone: [facility] 02-05-2025 16:42-0400 SaO2% (BldA) [Mass fraction] 98 % Alexey Mayberry MD Work Phone: [facility] 02-05-2025 16:42-0400 Systolic blood pressure 110 mm[Hg] Alexey Mayberry MD Work Phone: [facility] 01-27-2025 07:54-0400 Body mass index (BMI) [Ratio] 24.1 kg/m2 No Primary Care Physician [facility] 01-27-2025 07:54-0400 Body temperature 97.3 [degF] No Primary Care Physician [facility] 01-27-2025 07:54-0400 Body weight 72.12 kg No Primary Care Physician [facility] 01-27-2025 07:54-0400 Diastolic blood pressure 83 mm[Hg] No Primary Care Physician [facility] 01-27-2025 07:54-0400 Heart rate 89 /min No Primary Care Physician [facility] 01-27-2025 07:54-0400 Inhaled oxygen flow rate 95 L/min No Primary Care Physician [facility] 01-27-2025 07:54-0400 Respiratory rate 18 /min No Primary Care Physician [facility] 01-27-2025 07:54-0400 SaO2% (BldA) [Mass fraction] 95 % No Primary Care Physician [facility] 01-27-2025 07:54-0400 Systolic blood pressure 124 mm[Hg] No Primary Care Physician [facility] 12-09-2024 10:43-0400 Body mass index (BMI) [Ratio] 26.16 kg/m2 Alexey Mayberry MD Work Phone: [facility] 12-09-2024 10:43-0400 Body weight 71.3 kg Alexey Mayberry MD Work Phone: [facility] 12-09-2024 10:43-0400 Diastolic blood pressure 64 mm[Hg] Alexey Mayberry MD Work Phone: [facility] 12-09-2024 10:43-0400 Heart rate 65 /min Alexey Mayberry MD Work Phone: [facility] 12-09-2024 10:43-0400 Respiratory rate 18 /min Alexey Mayberry MD Work Phone: [facility] 12-09-2024 10:43-0400 SaO2% (BldA) [Mass fraction] 98 % Alexey Mayberry MD Work Phone: [facility] 12-09-2024 10:43-0400 Systolic blood pressure 122 mm[Hg] Alexey Mayberry MD Work Phone: [facility] 11-19-2024 14:12-0400 Body height 172.72 cm Jose Duff MD Work Phone: [facility] [place] 11-19-2024 14:12-0400 Body mass index (BMI) [Ratio] 23.1 kg/m2 Jsoe Duff MD Work Phone: [facility] [place] 11-19-2024 14:12-0400 Body weight 68.94 kg Jose Duff MD Work Phone: [facility] [place] 11-19-2024 14:12-0400 Diastolic blood pressure 85 mm[Hg] Jose Duff MD Work Phone: [facility] [place] 11-19-2024 14:12-0400 Heart rate 89 /min Jose Duff MD Work Phone: [facility] [place] 11-19-2024 14:12-0400 Respiratory rate 16 /min Jose Duff MD Work Phone: [facility] [place] 11-19-2024 14:12-0400 SaO2% (BldA) [Mass fraction] 93 % Jose Duff MD Work Phone: [facility] [place] 11-19-2024 14:12-0400 Systolic blood pressure 129 mm[Hg] Jose Duff MD Work Phone: [facility] [place] 11-18-2024 11:31-0400 Body mass index (BMI) [Ratio] 24.84 kg/m2 Alexey Mayberry MD Work Phone: [facility] 11-18-2024 11:31-0400 Body temperature 97 [degF] Alexey Mayberry MD Work Phone: [facility] 11-18-2024 11:31-0400 Body weight 67.7 kg Alexey Mayberry MD Work Phone: [facility] 11-18-2024 11:31-0400 Diastolic blood pressure 78 mm[Hg] Alexey Mayberry MD Work Phone: [facility] 11-18-2024 11:31-0400 Heart rate 92 /min Alexey Mayberry MD Work Phone: [facility] 11-18-2024 11:31-0400 Respiratory rate 18 /min Alexey Mayberry MD Work Phone: [facility] 11-18-2024 11:31-0400 SaO2% (BldA) [Mass fraction] 95 % Alexey Mayberry MD Work Phone: [facility] 11-18-2024 11:31-0400 Systolic blood pressure 110 mm[Hg] Alexey Mayberry MD Work Phone: [facility] 11-06-2024 10:21-0500 Body height 165.1 cm Alexey Mayberry MD Work Phone: [facility] 11-06-2024 10:21-0500 Body mass index (BMI) [Ratio] 25.13 kg/m2 Alexey Mayberry MD Work Phone: [facility] 11-06-2024 10:21-0500 Body temperature 102 [degF] Alexey Mayberry MD Work Phone: [facility] 11-06-2024 10:21-0500 Body weight 68.5 kg Alexey Mayberry MD Work Phone: [facility] 11-06-2024 10:21-0500 Diastolic blood pressure 70 mm[Hg] Alexey Mayberry MD Work Phone: [facility] 11-06-2024 10:21-0500 Heart rate 111 /min Alexey Mayberry MD Work Phone: [facility] 11-06-2024 10:21-0500 Respiratory rate 18 /min Alexey Mayberry MD Work Phone: [facility] 11-06-2024 10:21-0500 Systolic blood pressure 132 mm[Hg] Alexey Mayberry MD Work Phone: [facility] 10-31-2024 09:23-0500 Body temperature 98.1 [degF] Jose Duff MD Work Phone: 1(685)150-508724 [place] [address] 10-31-2024 09:23-0500 Diastolic blood pressure 74 mm[Hg] Jose Duff MD Work Phone: 7(406)157-710224 [place] [address] 10-31-2024 09:23-0500 Heart rate 85 /min Jose Duff MD Work Phone: 1(959)483-238827 [place] [address] 10-31-2024 09:23-0500 Respiratory rate 18 /min Jose Duff MD Work Phone: 8(745)317-415027 [place] [address] 10-31-2024 09:23-0500 SaO2% (BldA) [Mass fraction] 94 % Jose Duff MD Work Phone: 5(961)118-584324 [place] [address] 10-31-2024 09:23-0500 Systolic blood pressure 111 mm[Hg] Jose Duff MD Work Phone: 9(794)179-983427 [place] [address] 10-30-2024 21:58-0500 Inhaled oxygen flow rate 2 L/min Jose Duff MD Work Phone: 7(583)641-817727 [place] [address] 10-30-2024 05:29-0500 Body mass index (BMI) [Ratio] 22.5 kg/m2 Jose Duff MD Work Phone: 8(020)810-625727 [place] [address] 10-30-2024 05:29-0500 Body weight 67.3 kg Jose Duff MD Work Phone: 0(272)380-041727 [place] [address] 10-20-2024 07:33-0500 Body mass index (BMI) [Ratio] 23.7 kg/m2 Jose Duff MD Work Phone: 0(899)468-126527 [place] [address] 10-20-2024 07:33-0500 Body temperature 97.9 [degF] Jose Duff MD Work Phone: 7(604)371-302924 [place] [address] 10-20-2024 07:33-0500 Body weight 66.67 kg Jose Duff MD Work Phone: 7(210)247-205424 [place] [address] 10-20-2024 07:33-0500 Diastolic blood pressure 73 mm[Hg] Jose Duff MD Work Phone: [facility] [place] 10-20-2024 07:33-0500 Heart rate 82 /min Jose Duff MD Work Phone: 4(757)155-249124 [place] [address] 10-20-2024 07:33-0500 Respiratory rate 18 /min Jose Duff MD Work Phone: 6(096)048-203124 [place] [address] 10-20-2024 07:33-0500 SaO2% (BldA) [Mass fraction] 98 % Jose Duff MD Work Phone: 7(304)857-471424 [place] [address] 10-20-2024 07:33-0500 Systolic blood pressure 110 mm[Hg] Jose Duff MD Work Phone: 3(099)667-361727 [place] [address] 10-15-2024 13:10-0500 SaO2% (BldA) [Mass fraction] 93 % Jose Duff MD Work Phone: 3(713)574-998327 [place] [address] 10-13-2024 13:05-0500 Body mass index (BMI) [Ratio] 23.7 kg/m2 Jose Duff MD Work Phone: 3(200)770-565727 [place] [address] 10-13-2024 13:05-0500 Body weight 66.67 kg Jsoe Duff MD Work Phone: 0(726)752-465624 [place] [address] 10-13-2024 13:05-0500 Diastolic blood pressure 81 mm[Hg] Jose Duff MD Work Phone: 9(460)829-254824 [place] [address] 10-13-2024 13:05-0500 Heart rate 91 /min Jose Duff MD Work Phone: 6(566)196-721624 [place] [address] 10-13-2024 13:05-0500 Respiratory rate 18 /min Jose Duff MD Work Phone: 6(399)301-060424 [place] [address] 10-13-2024 13:05-0500 SaO2% (BldA) [Mass fraction] 97 % Jose Duff MD Work Phone: 5(681)596-204324 [place] [address] 10-13-2024 13:05-0500 Systolic blood pressure 121 mm[Hg] Jose Duff MD Work Phone: [facility] 10-06-2024 08:58-0500 Body mass index (BMI) [Ratio] 22.6 kg/m2 Jose Duff MD Work Phone: [facility] 10-06-2024 08:58-0500 Body temperature 97.7 [degF] Jose Duff MD Work Phone: 9(259)117-986724 [place] [address] 10-06-2024 08:58-0500 Body weight 63.5 kg Jose Duff MD Work Phone: 1(942)546-214224 [place] [address] 10-06-2024 08:58-0500 Diastolic blood pressure 83 mm[Hg] Jose Duff MD Work Phone: 9(962)423-639124 [place] [address] 10-06-2024 08:58-0500 Heart rate 94 /min Jose Duff MD Work Phone: 0(430)735-003024 [place] [address] 10-06-2024 08:58-0500 Respiratory rate 18 /min Jose Duff MD Work Phone: [facility] 10-06-2024 08:58-0500 SaO2% (BldA) [Mass fraction] 96 % Jose Duff MD Work Phone: 0(211)274-890124 [place] [address] 10-06-2024 08:58-0500 Systolic blood pressure 117 mm[Hg] Jose Duff MD Work Phone: 0(456)383-823124 [place] [address] 09-12-2024 14:22-0500 Body temperature 97.6 [degF] Jose Duff MD Work Phone: [facility] [place] 09-12-2024 14:22-0500 Diastolic blood pressure 72 mm[Hg] Jose Duff MD Work Phone: 5(536)908-450924 [place] [address] 09-12-2024 14:22-0500 Heart rate 87 /min Jose Duff MD Work Phone: [facility] [place] 09-12-2024 14:22-0500 Respiratory rate 16 /min Jose Duff MD Work Phone: [facility] [place] 09-12-2024 14:22-0500 SaO2% (BldA) [Mass fraction] 98 % Jose Duff MD Work Phone: [facility] [place] 09-12-2024 14:22-0500 Systolic blood pressure 111 mm[Hg] Jose Duff MD Work Phone: [facility] 09-12-2024 09:46-0500 Body weight 65.99 kg Jose Duff MD Work Phone: [facility] [place] 09-12-2024 05:30-0500 Body mass index (BMI) [Ratio] 23.5 kg/m2 Jose Duff MD Work Phone: [facility] [place] 06-09-2024 10:55-0400 SaO2% (BldA) [Mass fraction] 94 % ALEXEY [facility] Comment on above: Order Comment: Specimen Type: ARTERIAL B LOOD SPECIMENOrdering Facility: [facility] Address: [address] [place] [address] Performed By: #### A LLBG ####[facility] [id number] [address] 06-08-2024 06:35-0400 SaO2% (BldA) [Mass fraction] 85 % ALEXEY [facility] Comment on above: Order Comment: Specimen Type: ARTERIAL B LOOD SPECIMENOrdering Facility: [facility] Address: [address] [place] [address] Performed By: #### A LLBG ####[facility] [id number] [address] 06-08-2024 05:00-0400 SaO2% (BldA) [Mass fraction] 92 % ALEXEY [facility] Comment on above: Order Comment: Specimen Type: ARTERIAL B LOOD SPECIMENOrdering Facility: [facility] Address: [address] [place] [address] Performed By: #### A LLBG ####[facility] [id number] [address] OF [facility] 06-07-2024 03:23-0400 SaO2% (BldA) [Mass fraction] 97 % ALEXEY [facility] Comment on above: Order Comment: Specimen Type: ARTERIAL B LOOD SPECIMENOrdering Facility: [facility] Address: [address] [place] [address] Performed By: #### A LLBG ####[facility]ORY[facility] [id number] [address] 06-06-2024 08:42-0400 SaO2% (BldA) [Mass fraction] 90 % [facility] Comment on above: Order Comment: Specimen Type: ARTERIAL B LOOD SPECIMENOrdering Facility: [facility] Address: [address] [place] [address] Performed By: #### A LLBG ####[facility] [id number] [address] 06-06-2024 01:02-0400 SaO2% (BldA) [Mass fraction] 88 % [facility] Comment on above: Order Comment: Specimen Type: ARTERIAL B LOOD SPECIMENOrdering Facility: [facility] Address: [address] [place] [address] Performed By: #### A LLBG ####[facility]CLIA [id number] [place] [address] [facility] 06-05-2024 16:07-0400 SaO2% (BldA) [Mass fraction] 95 % [facility] Comment on above: Order Comment: Specimen Type: ARTERIAL B LOOD SPECIMENOrdering Facility: [facility] Address: [address] [place] [address] Performed By: #### A LLBG ####[facility]ORYCL[facility] [id number] [address] 06-05-2024 11:57-0400 SaO2% (BldA) [Mass fraction] 94 % ALEXEY [facility] Comment on above: Order Comment: Specimen Type: ARTERIAL B LOOD SPECIMENOrdering Facility: [facility] Address: [address] [place] [address] Performed By: #### A LLBG ####[facility] LABORATORYCLIA [id number] [place] [address] [facility] 06-05-2024 04:56-0400 SaO2% (BldA) [Mass fraction] 97 % ALEXEY [facility] Comment on above: Order Comment: Specimen Type: ARTERIAL B LOOD SPECIMENOrdering Facility: [facility] Address: [address] [place] [address] Performed By: #### A LLBG ####[facility] [id number] [address] 06-04-2024 23:56-0400 SaO2% (BldA) [Mass fraction] 93 % ALEXEY [facility] Comment on above: Order Comment: Specimen Type: ARTERIAL B LOOD SPECIMENOrdering Facility: [facility] Address: [address] [place] [address] Performed By: #### A LLBG ####[facility] [id number] [place] [id number] [facility] 06-04-2024 16:54-0400 SaO2% (BldA) [Mass fraction] 95 % [facility]LEXEY [facility] [facility] Comment on above: Order Comment: Specimen Type: ARTERIAL B LOOD SPECIMENOrdering Facility: [facility] Address: [address] [place] [address] Performed By: #### A LLBG ####[facility] [id number] [address] 06-04-2024 10:50-0400 SaO2% (BldA) [Mass fraction] 96 % ALEXEY [facility] Comment on above: Order Comment: Specimen Type: ARTERIAL B LOOD SPECIMENOrdering Facility: [facility] Address: [address] [place] [address] Performed By: #### A LLBG ####[facility]ATORYCLIA [id number] [place] [address] [facility] 06-04-2024 05:09-0400 SaO2% (BldA) [Mass fraction] 88 % ALEXEY MAYBERRY [facility] Comment on above: Order Comment: Specimen Type: ARTERIAL B LOOD SPECIMENOrdering Facility: [facility] Address: [address] [place] [address] Performed By: #### A LLBG ####[facility]ORY[facility] [id number] [place] [address] [facility] 06-02-2024 14:00-0400 Body height 166 cm Heather Klaudia AWNING INSTALLER.FELLING MACHINE OPERATOR Work Phone: [facility] 06-02-2024 14:00-0400 Body mass index (BMI) [Ratio] 24.46 kg/m2 Heather Klaudia AWNING INSTALLER.FELLING MACHINE OPERATOR Work Phone: [facility] 06-02-2024 14:00-0400 Body weight 67.4 kg Heather Klaudia AWNING INSTALLER.FELLING MACHINE OPERATOR Work Phone: [facility] 06-02-2024 14:00-0400 Diastolic blood pressure 76 mm[Hg] Heather Klaudia AWNING INSTALLER.FELLING MACHINE OPERATOR Work Phone: [facility] 06-02-2024 14:00-0400 Heart rate 87 /min Heather Klaudia AWNING INSTALLER.FELLING MACHINE OPERATOR Work Phone: [facility] 06-02-2024 14:00-0400 Respiratory rate 24 /min Heather Kladuia AWNING INSTALLER.FELLING MACHINE OPERATOR Work Phone: [facility] 06-02-2024 14:00-0400 SaO2% (BldA) [Mass fraction] 96 % Heather Klaudia AWNING INSTALLER.FELLING MACHINE OPERATOR Work Phone: [facility] 06-02-2024 14:00-0400 Systolic blood pressure 108 mm[Hg] Heather Klaudia AWNING INSTALLER.FELLING MACHINE OPERATOR Work Phone: [facility] 01-04-2024 21:37-0400 Body temperature 98 [degF] Dr. Alexey Mayberry Work Phone: 4(101)269-399204 [place] [address] 01-04-2024 21:37-0400 Diastolic blood pressure 79 mm[Hg] Dr. Alexey Mayberry Work Phone: 0(708)256-275104 [place] [address] 01-04-2024 21:37-0400 Heart rate 83 /min Dr. Alexey Mayberry Work Phone: 8(143)989-674504 [place] [address] 01-04-2024 21:37-0400 Respiratory rate 22 /min Dr. Alexey Mayberry Work Phone: 5(640)877-458404 [place] [address] 01-04-2024 21:37-0400 SaO2% (BldA) [Mass fraction] 94 % Dr. Alexey Mayberry Work Phone: 3(430)491-292004 [place] [address] 01-04-2024 21:37-0400 Systolic blood pressure 117 mm[Hg] Dr. Alexey Mayberry Work Phone: 0(256)388-711304 [place] [address] 01-04-2024 19:50-0400 Body height 172.[address] Alexey Mayberry Work Phone: 4(884)213-562004 [place] [address] 01-04-2024 19:50-0400 Body mass index (BMI) [Ratio] 23.6 kg/m2 Dr. Alexey Mayberry Work Phone: 2(180)173-685704 [place] [address] 01-04-2024 19:50-0400 Body weight 70.[address] Alexey Mayebrry Work Phone: 8(753)637-356004 [place] [address] 01-02-2024 10:24-0400 Body mass index (BMI) [Ratio] 23.4 kg/m2 Dr. Alexey Mayberry Work Phone: 5(309)646-818604 [place] [address] 01-02-2024 10:24-0400 Body temperature 98.4 [degF] Dr. Alexey Mayberry Work Phone: 9(301)362-053304 [place] [address] 01-02-2024 10:24-0400 Body weight 69.[address] Alexey Mayberry Work Phone: 4(823)247-148004 [place] [address] 01-02-2024 10:24-0400 Diastolic blood pressure 70 mm[Hg] Dr. Alexey Mayberry Work Phone: 0(539)112-551904 [place] [address] 01-02-2024 10:24-0400 Heart rate 87 /min Dr. Alexey Mayberry Work Phone: 7(720)789-836504 [place] [address] 01-02-2024 10:24-0400 Respiratory rate 22 /min Dr. Alexey Mayberry Work Phone: 0(714)641-655304 [place] [address] 01-02-2024 10:24-0400 SaO2% (BldA) [Mass fraction] 95 % Dr. Alexey Mayberry Work Phone: 4(628)669-573604 [place] [address] 01-02-2024 10:24-0400 Systolic blood pressure 105 mm[Hg] Dr. Alexey Mayberry Work Phone: 1(209)590-207604 [place] [address] 09-26-2023 12:31-0500 Diastolic blood pressure 84 mm[Hg] Dr. Alexey Mayberry Work Phone: 8(438)139-210204 [place] [address] 09-26-2023 12:31-0500 Heart rate 90 /min Dr. Alexey Mayberry Work Phone: 8(861)324-344804 [place] [address] 09-26-2023 12:31-0500 Respiratory rate 24 /min Dr. Alexey Mayberry Work Phone: 5(318)365-495804 [place] [address] 09-26-2023 12:31-0500 SaO2% (BldA) [Mass fraction] 93 % Dr. Alexey Mayberry Work Phone: 4(266)413-435104 [place] [address] 09-26-2023 12:31-0500 Systolic blood pressure 104 mm[Hg] Dr. Alexey Mayberry Work Phone: 0(330)961-059904 [place] [address] 09-26-2023 11:10-0500 Body temperature 98.2 [degF] Dr. Alexey Mayberry Work Phone: 9(417)636-783504 [place] [address] 09-26-2023 11:03-0500 Body height 172.[address] Alexey Mayberry Work Phone: 8(613)206-654404 [place] [address] 09-26-2023 11:03-0500 Body mass index (BMI) [Ratio] 24.5 kg/m2 Dr. Alexey Mayberry Work Phone: 8(497)864-257204 [place] [address] 09-26-2023 11:03-0500 Body weight 73.[address] Alexey Mayberry Work Phone: 4(427)180-391504 [place] [address] 07-23-2023 13:59-0500 Body mass index (BMI) [Ratio] 24.3 kg/m2 Dr. Alexey Mayberry Work Phone: 9(979)094-150704 [place] [address] 07-23-2023 13:59-0500 Body weight 72.[address] Alexey Mayberry Work Phone: 8(707)288-487404 [place] [address] 07-23-2023 13:59-0500 Diastolic blood pressure 63 mm[Hg] Dr. Alexey Mayberry Work Phone: 0(649)500-881604 [place] [address] 07-23-2023 13:59-0500 Heart rate 70 /min Dr. Alexey Mayberry Work Phone: 5(467)535-001004 [place] [address] 07-23-2023 13:59-0500 Respiratory rate 18 /min Dr. Alexey Mayberry Work Phone: 2(224)055-940704 [place] [address] 07-23-2023 13:59-0500 Systolic blood pressure 108 mm[Hg] Dr. Alexey Mayberry Work Phone: 0(640)413-863804 [place] [address] 07-11-2023 08:28-0500 Body mass index (BMI) [Ratio] 23.6 kg/m2 Dr. Alexey Mayberry Work Phone: 4(698)107-018204 [place] [address] 07-11-2023 08:28-0500 Body temperature 97.8 [degF] Dr. Alexey Mayberry Work Phone: 4(413)008-419004 [place] [address] 07-11-2023 08:28-0500 Body weight 70.[address] Alexey Mayberry Work Phone: 3(922)104-279204 [place] [address] 07-11-2023 08:28-0500 Diastolic blood pressure 71 mm[Hg] Dr. Alexey Mayberry Work Phone: 2(342)269-686504 [place] [address] 07-11-2023 08:28-0500 Heart rate 81 /min Dr. Alexey Mayberry Work Phone: 2(370)983-349404 [place] [address] 07-11-2023 08:28-0500 Respiratory rate 16 /min Dr. Alexey Mayberry Work Phone: 7(232)163-891404 [place] [address] 07-11-2023 08:28-0500 SaO2% (BldA) [Mass fraction] 96 % Dr. Alexey Mayberry Work Phone: 6(967)092-145804 [place] [address] 07-11-2023 08:28-0500 Systolic blood pressure 124 mm[Hg] Dr. Alexey Mayberry Work Phone: 2(288)868-908504 [place] [address] 07-07-2023 16:46-0500 Diastolic blood pressure 67 mm[Hg] Dr. Alexey Mayberry Work Phone: 3(717)659-815204 [place] [address] 07-07-2023 16:46-0500 Heart rate 85 /min Dr. Alexey Mayberry Work Phone: 1(426)455-631504 [place] [address] 07-07-2023 16:46-0500 Respiratory rate 16 /min Dr. Alexey Mayberry Work Phone: 3(680)782-801304 [place] [address] 07-07-2023 16:46-0500 SaO2% (BldA) [Mass fraction] 95 % Dr. Alexey Mayberry Work Phone: 0(496)719-159004 [place] [address] 07-07-2023 16:46-0500 Systolic blood pressure 113 mm[Hg] Dr. Alexey Mayberry Work Phone: 7(042)727-722704 [place] [address] 07-07-2023 15:34-0500 Body height 172.[address] Alexey Mayberry Work Phone: 9(759)361-382404 [place] [address] 07-07-2023 15:34-0500 Body mass index (BMI) [Ratio] 23.3 kg/m2 Dr. Alexey Mayberry Work Phone: 7(376)845-213404 [place] [address] 07-07-2023 15:34-0500 Body temperature 97.3 [degF] Dr. Alexey Mayberry Work Phone: 6(441)345-295465 [place] [address] 07-07-2023 15:34-0500 Body weight 69.[address] Alexey Mayberry Work Phone: [facility] 04-11-2023 05:52-0400 Body height 172.[address] Alexey Mayberry Work Phone: 2(131)412-425204 [place] [address] 04-11-2023 05:52-0400 Body mass index (BMI) [Ratio] 23.2 kg/m2 Dr. Alexey Mayberry Work Phone: 1(191)025-374304 [place] [address] 04-11-2023 05:52-0400 Body temperature 97.3 [degF] Dr. Alexey Mayberry Work Phone: 9(036)900-328204 [place] [address] 04-11-2023 05:52-0400 Body weight 69.[address] Alexey Mayberry Work Phone: 2(704)690-497804 [place] [address] 04-11-2023 05:52-0400 Diastolic blood pressure 80 mm[Hg] Dr. Alexey Mayberry Work Phone: 3(179)399-053904 [place] [address] 04-11-2023 05:52-0400 Heart rate 87 /min Dr. Alexey Mayberry Work Phone: 7(437)773-198404 [place] [address] 04-11-2023 05:52-0400 Respiratory rate 18 /min Dr. Alexey Mayberry Work Phone: 0(898)725-090304 [place] [address] 04-11-2023 05:52-0400 SaO2% (BldA) [Mass fraction] 99 % Dr. Alexey Mayberry Work Phone: 4(347)416-643304 [place] [address] 04-11-2023 05:52-0400 Systolic blood pressure 126 mm[Hg] Dr. Alexey Mayberry Work Phone: 6(210)577-347065 [place] [address] 03-19-2023 06:07-0400 Body temperature 92 [degF] Dr. Alexey Mayberry Work Phone: 5(484)871-431265 [place] [address] 03-19-2023 06:07-0400 Diastolic blood pressure 66 mm[Hg] Dr. Alexey Mayberry Work Phone: 8(584)952-214265 [place] [address] 03-19-2023 06:07-0400 Heart rate 106 /min Dr. Alexey Mayberry Work Phone: 5(437)550-910204 [place] [address] 03-19-2023 06:07-0400 Respiratory rate 18 /min Dr. Alexey Mayberry Work Phone: 3(089)716-282104 [place] [address] 03-19-2023 06:07-0400 Systolic blood pressure 111 mm[Hg] Dr. Alexey Mayberry Work Phone: 8(428)479-137104 [place] [address] 03-19-2023 04:28-0400 Inhaled oxygen flow rate 2 L/min Dr. Alexey Mayberry Work Phone: 4(506)782-014104 [place] [address] 03-19-2023 04:24-0400 SaO2% (BldA) [Mass fraction] 93 % Dr. Alexey Mayberry Work Phone: 6(027)577-931604 [place] [address] 03-19-2023 04:21-0400 Body mass index (BMI) [Ratio] 23.2 kg/m2 Dr. Alexey Mayberry Work Phone: 8(634)201-877804 [place] [address] 03-19-2023 04:21-0400 Body weight 69.[address] Alexey Mayberry Work Phone: 5(005)857-865404 [place] [address] 02-01-2023 10:07-0400 Body height 172.[address] Alexey Mayberry Work Phone: 7(425)660-299404 [place] [address] 02-01-2023 10:07-0400 Body mass index (BMI) [Ratio] 23.1 kg/m2 Dr. Alexey Mayberry Work Phone: 2(767)864-497904 [place] [address] 02-01-2023 10:07-0400 Body temperature 97.6 [degF] Dr. Alexey Mayberry Work Phone: 4(179)051-618704 [place] [address] 02-01-2023 10:07-0400 Body weight 68.[address] Alexey Mayberry Work Phone: 6(967)396-985504 [place] [address] 02-01-2023 10:07-0400 Diastolic blood pressure 74 mm[Hg] Dr. Alexey Mayberry Work Phone: 6(608)919-780504 [place] [address] 02-01-2023 10:07-0400 Heart rate 96 /min Dr. Alexey Mayberry Work Phone: 3(363)708-876804 [place] [address] 02-01-2023 10:07-0400 Respiratory rate 18 /min Dr. Alexey Mayberry Work Phone: 1(575)193-902304 [place] [address] 02-01-2023 10:07-0400 SaO2% (BldA) [Mass fraction] 97 % Dr. Alexey Mayberry Work Phone: 2(937)713-629604 [place] [address] 02-01-2023 10:07-0400 Systolic blood pressure 105 mm[Hg] Dr. Alexey Mayberry Work Phone: 4(411)368-973704 [place] [address] 01-21-2023 14:37-0400 Body mass index (BMI) [Ratio] 23.4 kg/m2 Dr. Alexey Mayberry Work Phone: 6(969)558-841404 [place] [address] 01-21-2023 14:37-0400 Body weight 69.[address] Alexey Mayberry Work Phone: 4(446)623-118404 [place] [address] 01-21-2023 14:37-0400 Diastolic blood pressure 69 mm[Hg] Dr. Alexey Mayberry Work Phone: 4(988)903-811204 [place] [address] 01-21-2023 14:37-0400 Heart rate 86 /min Dr. Alexey Mayberry Work Phone: 7(664)549-952604 [place] [address] 01-21-2023 14:37-0400 Respiratory rate 18 /min Dr. Alexey Mayberry Work Phone: 9(188)915-936004 [place] [address] 01-21-2023 14:37-0400 Systolic blood pressure 102 mm[Hg] Dr. Alexey Mayberry Work Phone: 5(933)766-522904 [place] [address] 12-20-2022 09:24-0400 Body mass index (BMI) [Ratio] 23.8 kg/m2 Dr. Alexey Mayberry Work Phone: [facility] 12-20-2022 09:24-0400 Body weight 71.[address] Alexey Mayberry Work Phone: [facility] 12-20-2022 09:24-0400 Diastolic blood pressure 79 mm[Hg] Dr. Alexey Mayberry Work Phone: [facility] 12-20-2022 09:24-0400 Heart rate 69 /min Dr. Alexey Mayberry Work Phone: [facility] 12-20-2022 09:24-0400 SaO2% (BldA) [Mass fraction] 96 % Dr. Alexey Mayberry Work Phone: [facility] 12-20-2022 09:24-0400 Systolic blood pressure 117 mm[Hg] Dr. Alexey Mayberry Work Phone: [facility] 12-17-2022 11:29-0400 Body temperature 97.59 [degF] Eun Athy PA-C Work Phone: [facility] 12-17-2022 11:29-0400 Body weight 71.67 kg Eun Athy PA-C Work Phone: [facility] 12-17-2022 11:29-0400 Diastolic blood pressure 80 mm[Hg] Eun Athy PA-C Work Phone: [facility] 12-17-2022 11:29-0400 Heart rate 94 /min Eun Athy PA-C Work Phone: [facility] 12-17-2022 11:29-0400 Respiratory rate 16 /min Eun Athy PA-C Work Phone: [facility] 12-17-2022 11:29-0400 SaO2% (BldA) [Mass fraction] 100 % Eun Athy PA-C Work Phone: [facility] 12-17-2022 11:29-0400 Systolic blood pressure 122 mm[Hg] Eun Athy PA-C Work Phone: [facility] 11-29-2022 12:12-0400 Body temperature 97.2 [degF] Dr. Alexey Mayberry Work Phone: 5(505)848-406265 [place] [address] 11-29-2022 12:12-0400 Diastolic blood pressure 80 mm[Hg] Dr. Alexey Mayberry Work Phone: 6(345)910-046804 [place] [address] 11-29-2022 12:12-0400 Heart rate 78 /min Dr. Alexey Mayberry Work Phone: 0(034)650-315204 [place] [address] 11-29-2022 12:12-0400 Respiratory rate 16 /min Dr. Alexey Mayberry Work Phone: 1(451)862-456604 [place] [address] 11-29-2022 12:12-0400 SaO2% (BldA) [Mass fraction] 97 % Dr. Alexey Mayberry Work Phone: 3(119)387-786604 [place] [address] 11-29-2022 12:12-0400 Systolic blood pressure 94 mm[Hg] Dr. Alexey Mayberry Work Phone: 3(079)373-091604 [place] [address] 11-29-2022 12:05-0400 Inhaled oxygen flow rate 2 L/min Dr. Alexey Mayberry Work Phone: 3(403)673-058904 [place] [address] 11-29-2022 10:44-0400 Body height 172.[address] Alexey Mayberry Work Phone: 3(403)048-374804 [place] [address] 11-29-2022 10:44-0400 Body mass index (BMI) [Ratio] 23.4 kg/m2 Dr. Alexey Mayberry Work Phone: 5(153)802-875604 [place] [address] 11-29-2022 10:44-0400 Body weight [address] Alexey Mayberry Work Phone: 9(064)095-296004 [place] [address] 10-02-2022 10:22-0500 Body height 172.[address] Alexey Mayberry Work Phone: 0(646)951-849304 [place] [address] 10-02-2022 10:22-0500 Body mass index (BMI) [Ratio] 24.3 kg/m2 Dr. Alexey Mayberry Work Phone: 5(552)634-567465 [place] [address] 10-02-2022 10:22-0500 Body weight 72.[address] Alexey Mayberry Work Phone: 3(382)556-791504 [place] [address] 10-02-2022 10:22-0500 Diastolic blood pressure 72 mm[Hg] Dr. Alexey Mayberry Work Phone: 8(818)975-340404 [place] [address] 10-02-2022 10:22-0500 Heart rate 86 /min Dr. Alexey Mayberry Work Phone: 9(134)047-047904 [place] [address] 10-02-2022 10:22-0500 SaO2% (BldA) [Mass fraction] 95 % Dr. Alexey Mayberry Work Phone: 0(965)212-853604 [place] [address] 10-02-2022 10:22-0500 Systolic blood pressure 119 mm[Hg] Dr. Alexey Mayberry Work Phone: 4(030)901-066304 [place] [address] 09-13-2022 13:08-0500 Body mass index (BMI) [Ratio] 24.5 kg/m2 Dr. Alexey Mayberry Work Phone: 3(720)565-025604 [place] [address] 09-13-2022 13:08-0500 Body temperature 97.3 [degF] Dr. Alexey Mayberry Work Phone: 5(423)873-349604 [place] [address] 09-13-2022 13:08-0500 Body weight 73.[address] Alexey Mayberry Work Phone: 8(613)214-230704 [place] [address] 09-13-2022 13:08-0500 Diastolic blood pressure 76 mm[Hg] Dr. Alexey Mayberry Work Phone: 7(195)590-289804 [place] [address] 09-13-2022 13:08-0500 Heart rate 94 /min Dr. Alexey Mayberry Work Phone: 2(431)702-947504 [place] [address] 09-13-2022 13:08-0500 Respiratory rate 20 /min Dr. Alexey Mayberry Work Phone: 7(402)163-130004 [place] [address] 09-13-2022 13:08-0500 SaO2% (BldA) [Mass fraction] 94 % Dr. Alexey Mayberry Work Phone: [facility] 09-13-2022 13:08-0500 Systolic blood pressure 117 mm[Hg] Dr. Alexey Mayberry Work Phone: [facility] 07-02-2022 10:59-0400 Body height 172.[address] Alexey Mayberry Work Phone: [facility] Work Phone: 07-02-2022 10:51-0400 Body mass index (BMI) [Ratio] 23.6 kg/m2 Dr. Alexey Mayberry Work Phone: [facility] Work Phone: 07-02-2022 10:51-0400 Body temperature 95.3 [degF] Dr. Alexey Mayberry Work Phone: [facility] Work Phone: 07-02-2022 10:51-0400 Body weight 70.[address] Alexey Mayberry Work Phone: [facility] Work Phone: 07-02-2022 10:51-0400 Diastolic blood pressure 73 mm[Hg] Dr. Alexey Mayberry Work Phone: [facility] Work Phone: 07-02-2022 10:51-0400 Heart rate 83 /min Dr. Alexey Mayberry Work Phone: [facility] Work Phone: 07-02-2022 10:51-0400 Respiratory rate 18 /min Dr. Alexey Mayberry Work Phone: [facility] Work Phone: 07-02-2022 10:51-0400 SaO2% (BldA) [Mass fraction] 96 % Dr. Alexey Mayberry Work Phone: [facility] Work Phone: 07-02-2022 10:51-0400 Systolic blood pressure 118 mm[Hg] Dr. Alexey Mayberry Work Phone: [facility] Work Phone: 06-30-2022 19:28-0400 SaO2% (BldA) [Mass fraction] 95 % DR ZORAIDA LOW [facility] Comment on above: Performed By: #### [id number] #### [facility],[address] [place] [address] 06-22-2022 10:01-0400 Body mass index (BMI) [Ratio] 24 kg/m2 Dr. Alexey Mayberry Work Phone: [facility] Work Phone: 06-22-2022 10:01-0400 Body weight 71.[address] Alexey Mayberry Work Phone: [facility] Work Phone: 06-22-2022 10:01-0400 Diastolic blood pressure 72 mm[Hg] Dr. Alexey Mayberry Work Phone: [facility] Work Phone: 06-22-2022 10:01-0400 Heart rate 84 /min Dr. Alexey Mayberry Work Phone: [facility] Work Phone: 06-22-2022 10:01-0400 Respiratory rate 18 /min Dr. Alexey Mayberry Work Phone: [facility] Work Phone: 06-22-2022 10:01-0400 Systolic blood pressure 110 mm[Hg] Dr. Alexey Mayberry Work Phone: [facility] Work Phone: 06-18-2022 13:48-0400 Body weight 71.67 kg Heather Older AWNING INSTALLER.FELLING MACHINE OPERATOR Work Phone: [facility] 06-18-2022 13:48-0400 Diastolic blood pressure 78 mm[Hg] Heather Older AWNING INSTALLER.FELLING MACHINE OPERATOR Work Phone: [facility] 06-18-2022 13:48-0400 Heart rate 68 /min Heather Older AWNING INSTALLER.FELLING MACHINE OPERATOR Work Phone: [facility] 06-18-2022 13:48-0400 Respiratory rate 18 /min Heather Older AWNING INSTALLER.FELLING MACHINE OPERATOR Work Phone: [facility] 06-18-2022 13:48-0400 Systolic blood pressure 128 mm[Hg] Heather Older AWNING INSTALLER.C MANAGER OF DISASTER RECOVERY Work Phone: [facility] 03-16-2022 10:19-0400 Body mass index (BMI) [Ratio] 23.8 kg/m2 Dr. Alexey Mayberry Work Phone: [facility] Work Phone: 03-16-2022 10:19-0400 Body temperature 97.4 [degF] Dr. Alexey Mayberry Work Phone: [facility] Work Phone: 03-16-2022 10:19-0400 Body weight 70.[address] Alexey Mayberry Work Phone: [facility] Work Phone: 03-16-2022 10:19-0400 Diastolic blood pressure 78 mm[Hg] Dr. Alexey Mayberry Work Phone: [facility] Work Phone: 03-16-2022 10:19-0400 Heart rate 67 /min Dr. Alexey Mayberry Work Phone: [facility] Work Phone: 03-16-2022 10:19-0400 Respiratory rate 16 /min Dr. Alexey Mayberry Work Phone: [facility] Work Phone: 03-16-2022 10:19-0400 SaO2% (BldA) [Mass fraction] 99 % Dr. Alexey Mayberry Work Phone: [facility] Work Phone: 03-16-2022 10:19-0400 Systolic blood pressure 132 mm[Hg] Dr. Alexey Mayberry Work Phone: [facility] Work Phone: 01-17-2022 13:38-0400 Body height 172.7 cm Pacc 1 Work Phone: [facility] 01-17-2022 13:38-0400 Body temperature 98.4 [degF] Pacc 1 Work Phone: [facility] 01-17-2022 13:38-0400 Body weight 68.95 kg Pacc 1 Work Phone: [facility] 01-17-2022 13:38-0400 Diastolic blood pressure 62 mm[Hg] Pacc 1 Work Phone: [facility] 01-17-2022 13:38-0400 Heart rate 106 /min Pacc 1 Work Phone: [facility] 01-17-2022 13:38-0400 Respiratory rate 20 /min Pacc 1 Work Phone: [facility] 01-17-2022 13:38-0400 SaO2% (BldA) [Mass fraction] 97 % Pacc 1 Work Phone: [facility] 01-17-2022 13:38-0400 Systolic blood pressure 112 mm[Hg] Pacc 1 Work Phone: [facility] 01-10-2022 01:59-0400 Diastolic blood pressure 84 mm[Hg] Dr. Alexey Mayberry Work Phone: [facility] Work Phone: 01-10-2022 01:59-0400 Heart rate 98 /min Dr. Alexey Mayberry Work Phone: [facility] Work Phone: 01-10-2022 01:59-0400 Respiratory rate 18 /min Dr. Alexey Mayberry Work Phone: [facility] Work Phone: 01-10-2022 01:59-0400 SaO2% (BldA) [Mass fraction] 91 % Dr. Alexey Mayberry Work Phone: [facility] Work Phone: 01-10-2022 01:59-0400 Systolic blood pressure 114 mm[Hg] Dr. Alexey Mayberry Work Phone: [facility] Work Phone: 01-10-2022 00:18-0400 Body height 172.[address] Alexey Mayberry Work Phone: [facility] Work Phone: 01-10-2022 00:18-0400 Body mass index (BMI) [Ratio] 23.3 kg/m2 Dr. Alexey Mayberry Work Phone: [facility] Work Phone: 01-10-2022 00:18-0400 Body temperature 98 [degF] Dr. Alexey Mayberry Work Phone: [facility] Work Phone: 01-10-2022 00:18-0400 Body weight 69.[address] Alexey Mayberry Work Phone: [facility] Work Phone: 01-05-2022 14:49-0400 Body weight 69.85 kg Deanna Pack AWNING INSTALLER.FELLING MACHINE OPERATOR Work Phone: [facility] 01-05-2022 14:49-0400 Diastolic blood pressure 69 mm[Hg] Deanna Pack AWNING INSTALLER.FELLING MACHINE OPERATOR Work Phone: [facility] 01-05-2022 14:49-0400 Heart rate 89 /min Deanna Pack AWNING INSTALLER.FELLING MACHINE OPERATOR Work Phone: [facility] 01-05-2022 14:49-0400 Systolic blood pressure 103 mm[Hg] Deanna Pack AWNING INSTALLER.FELLING MACHINE OPERATOR Work Phone: [facility] 12-19-2021 10:14-0400 Body weight 72.12 kg Kamran Cruz APRN.FELLING MACHINE OPERATOR, DNP Work Phone: [facility] 12-19-2021 10:14-0400 Diastolic blood pressure 70 mm[Hg] Kamran Cruz APRN.FELLING MACHINE OPERATOR, DNP Work Phone: [facility] 12-19-2021 10:14-0400 Heart rate 77 /min Kamran Cruz AWNING INSTALLER.FELLING MACHINE OPERATOR, DNP Work Phone: [facility] 12-19-2021 10:14-0400 Respiratory rate 16 /min Kamran Cruz AWNING INSTALLER.FELLING MACHINE OPERATOR, DNP Work Phone: [facility] 12-19-2021 10:14-0400 SaO2% (BldA) [Mass fraction] 100 % Kamran Cruz APRN.FELLING MACHINE OPERATOR, DNP Work Phone: [facility] 12-19-2021 10:14-0400 Systolic blood pressure 124 mm[Hg] Kamran Cruz AWNING INSTALLER.FELLING MACHINE OPERATOR, DNP Work Phone: [facility] 12-15-2021 16:42-0400 Body weight 69.85 kg Alexey Mayberry MD Work Phone: [facility] 12-15-2021 16:42-0400 Diastolic blood pressure 72 mm[Hg] Alexey Mayberry MD Work Phone: [facility] 12-15-2021 16:42-0400 Heart rate 100 /min Alexey Mayberry MD Work Phone: [facility] 12-15-2021 16:42-0400 Respiratory rate 20 /min Alexey Mayberry MD Work Phone: [facility] 12-15-2021 16:42-0400 SaO2% (BldA) [Mass fraction] 94 % Alexey Mayberry MD Work Phone: [facility] 12-15-2021 16:42-0400 Systolic blood pressure 120 mm[Hg] Alexey Mayberry MD Work Phone: [facility] 12-14-2021 11:17-0400 Body temperature 97.5 [degF] Dr. Alexey Mayberry Work Phone: [facility] Work Phone: 12-14-2021 11:17-0400 Diastolic blood pressure 88 mm[Hg] Dr. Alexey Mayberry Work Phone: [facility] Work Phone: 12-14-2021 11:17-0400 Heart rate 92 /min Dr. Alexey Mayberry Work Phone: [facility] [place] Work Phone: 12-14-2021 11:17-0400 Respiratory rate 16 /min Dr. Alexey Mayberry Work Phone: [facility] Work Phone: 12-14-2021 11:17-0400 SaO2% (BldA) [Mass fraction] 96 % Dr. Alexey Mayberry Work Phone: [facility] Work Phone: 12-14-2021 11:17-0400 Systolic blood pressure 123 mm[Hg] Dr. Alexey Mayberry Work Phone: [facility] Work Phone: 12-13-2021 11:29-0400 Body weight 68.[address] Alexey Mayberry Work Phone: [facility] Work Phone: 12-13-2021 03:57-0400 Body temperature 97.8 [degF] Dr. Alexey Mayberry Work Phone: [facility] Work Phone: 12-13-2021 03:57-0400 Diastolic blood pressure 80 mm[Hg] Dr. Alexey Mayberry Work Phone: [facility] Work Phone: 12-13-2021 03:57-0400 Heart rate 79 /min Dr. Alexey Mayberry Work Phone: [facility] Work Phone: 12-13-2021 03:57-0400 Respiratory rate 20 /min Dr. Alexey Mayberry Work Phone: [facility] Work Phone: 12-13-2021 03:57-0400 SaO2% (BldA) [Mass fraction] 94 % Dr. Alexey Mayberry Work Phone: [facility] Work Phone: 12-13-2021 03:57-0400 Systolic blood pressure 112 mm[Hg] Dr. Alexey Mayberry Work Phone: [facility] Work Phone: 12-12-2021 19:22-0400 Body height 172.[address] Alexey Mayberry Work Phone: [facility] Work Phone: 12-12-2021 19:22-0400 Body mass index (BMI) [Ratio] 22.9 kg/m2 Dr. Alexey Mayberry Work Phone: [facility] Work Phone: 12-12-2021 19:22-0400 Body weight 68.[address] Alexey Mayberry Work Phone: [facility] Work Phone: 11-20-2021 09:44-0400 Body mass index (BMI) [Ratio] 24.3 kg/m2 Dr. Alexey Mayberry Work Phone: [facility] [place] Work Phone: 11-20-2021 09:44-0400 Body temperature 97.3 [degF] Dr. Alexey Mayberry Work Phone: [facility] Work Phone: 11-20-2021 09:44-0400 Body weight 72.[address] Alexey Mayberry Work Phone: [facility] [place] Work Phone: 11-20-2021 09:44-0400 Diastolic blood pressure 71 mm[Hg] Dr. Alexey Mayberry Work Phone: [facility] [place] Work Phone: 11-20-2021 09:44-0400 Heart rate 76 /min Dr. Alexey Mayberry Work Phone: [facility] [place] Work Phone: 11-20-2021 09:44-0400 Respiratory rate 16 /min Dr. Alexey Mayberry Work Phone: [facility] [place] Work Phone: 11-20-2021 09:44-0400 SaO2% (BldA) [Mass fraction] 98 % Dr. Alexey Mayberry Work Phone: [facility] Work Phone: 11-20-2021 09:44-0400 Systolic blood pressure 102 mm[Hg] Dr. Alexey Mayberry Work Phone: [facility] [place] Work Phone: 10-03-2021 12:28-0500 Body mass index (BMI) [Ratio] 21.9 kg/m2 Dr. Alexey Mayberry Work Phone: [facility] [place] Work Phone: 10-03-2021 12:28-0500 Body temperature 97.9 [degF] Dr. Alexey Mayberry Work Phone: [facility] Work Phone: 10-03-2021 12:28-0500 Body weight 65.[address] Alexey Mayberry Work Phone: [facility] [place] Work Phone: 10-03-2021 12:28-0500 Diastolic blood pressure 67 mm[Hg] Dr. Alexey Mayberry Work Phone: [facility] [place] Work Phone: 10-03-2021 12:28-0500 Heart rate 84 /min Dr. Alexey Mayberry Work Phone: [facility] [place] Work Phone: 10-03-2021 12:28-0500 Respiratory rate 16 /min Dr. Alexey Mayberry Work Phone: [facility] Work Phone: 10-03-2021 12:28-0500 SaO2% (BldA) [Mass fraction] 94 % Dr. Alexey Mayberry Work Phone: [facility] [place] Work Phone: 10-03-2021 12:28-0500 Systolic blood pressure 101 mm[Hg] Dr. Alexey Mayberry Work Phone: [facility] Work Phone: 09-15-2021 16:03-0500 Diastolic blood pressure 67 mm[Hg] Dr. Alexey Mayberry Work Phone: [facility] Work Phone: 09-15-2021 16:03-0500 Respiratory rate 18 /min Dr. Alexey Mayberry Work Phone: [facility] [place] Work Phone: 09-15-2021 16:03-0500 Systolic blood pressure 97 mm[Hg] Dr. Alexey Mayberry Work Phone: [facility] Work Phone: 09-15-2021 14:18-0500 SaO2% (BldA) [Mass fraction] 99 % Dr. Alexey Mayberry Work Phone: [facility] Work Phone: 09-15-2021 10:09-0500 Heart rate 89 /min Dr. Alexey Mayberry Work Phone: [facility] [place] Work Phone: 09-15-2021 08:35-0500 Body mass index (BMI) [Ratio] 20.9 kg/m2 Dr. Alexey Mayberry Work Phone: [facility] Work Phone: 09-15-2021 08:35-0500 Body temperature 97.3 [degF] Dr. Alexey Mayberry Work Phone: [facility] Work Phone: 09-15-2021 08:35-0500 Body weight 62.[address] Alexey Mayberry Work Phone: [facility] Work Phone: 08-31-2021 12:13-0500 Body temperature 98.4 [degF] Dr. Alexey Mayberry Work Phone: [facility] [place] Work Phone: 08-31-2021 12:13-0500 Diastolic blood pressure 77 mm[Hg] Dr. Alexey Mayberry Work Phone: [facility] Work Phone: 08-31-2021 12:13-0500 Heart rate 93 /min Dr. Alexey Mayberry Work Phone: [facility] Work Phone: 08-31-2021 12:13-0500 Respiratory rate 20 /min Dr. Alexey Mayberry Work Phone: [facility] [place] Work Phone: 08-31-2021 12:13-0500 SaO2% (BldA) [Mass fraction] 94 % Dr. Alexey Mayberry Work Phone: [facility] Work Phone: 08-31-2021 12:13-0500 Systolic blood pressure 119 mm[Hg] Dr. Alexey Mayberry Work Phone: [facility] [place] Work Phone: 08-29-2021 12:00-0500 Inhaled oxygen concentration 50 % Dr. Alexey Mayberry Work Phone: [facility] [place] Work Phone: 08-29-2021 08:56-0500 Body weight 64.[address] Alexey Mayberry Work Phone: [facility] [place] Work Phone: 08-28-2021 22:59-0500 Body mass index (BMI) [Ratio] 21.7 kg/m2 Dr. Alexey Mayberry Work Phone: [facility] Work Phone: 03-01-2017 16:33-0400 Heart rate 68 /min Antonio Deshpandez [facility] Work Phone: 03-01-2017 15:51-0400 BMI (Body Mass Index) 23.26 kg/m2 Antonio Reddy [facility] Work Phone: 03-01-2017 15:51-0400 BP Diastolic 62 mm[Hg] Antonio Maureenreilly [facility] Work Phone: 03-01-2017 15:51-0400 BP Systolic 104 mm[Hg] Antonio [facility] Work Phone: 03-01-2017 15:51-0400 Height 172.72 cm Antonio [facility] Work Phone: 03-01-2017 15:51-0400 Pulse (Heart Rate) 72 /min Antonio [facility] Work Phone: 03-01-2017 15:51-0400 Respiratory Rate 16 /min Antonio [facility] Work Phone: 03-01-2017 15:51-0400 Weight 69.4 kg Antonio Reddy [facility] Work Phone: 05-09-2016 13:06-0400 BMI (Body Mass Index) 22.84 kg/m2 Sierra Ohara RN [facility] Work Phone: 05-09-2016 13:06-0400 BP Diastolic 62 mm[Hg] Sierra Ohraa RN [facility] Work Phone: 05-09-2016 13:06-0400 BP Systolic 92 mm[Hg] Sierra Ohara RN [facility] Work Phone: 05-09-2016 13:06-0400 BSA (Body Surface Area) 1.81 m2 Sierra Ohara RN [facility] Work Phone: 05-09-2016 13:06-0400 Pulse (Heart Rate) 80 /min Sierra Ohara RN [facility] Work Phone: 05-09-2016 13:06-0400 Respiratory Rate 18 /min Sierra Ohara RN [facility] Work Phone: 05-09-2016 13:06-0400 Weight 68.13 kg Sierra Ohara RN [facility] Work Phone: 05-14-2013 14:44-0400 Heart rate 409 ms Antonio Reddy [facility] Work Phone: 05-14-2013 13:33-0400 Height 172.72 cm Sierra Ohara RN [facility] Work Phone: Encounters Encounter Date Encounter Type Care Provider Facility Start: 04-12-2025 ambulatory Rosa Heck Facility: [facility] Start: 04-05-2025 ambulatory Alexey Gibson ty:[facility] Start: 04-05-2025 ambulatory [facility] Start: 04-01-2025 End: 04-01-2025 Telephone encounter Alexey Mayberry MD Work Phone: [facility] [place] Comment on above: [facility] Pre[facility] Jay [facility]/Request Start: 03-30-2025 End: 03-30-2025 ambulatory NO ASSIGNED PCP GENERIC PROVIDER [facility] Start: 03-30-2025 End: 03-30-2025 Encounter for other preprocedural examination NO ASSIGNED PCP GENERIC PROVIDER [facility] Start: 03-29-2025 End: 03-29-[address] Godfrey Benton MD -[facility] Work Phone: Start: 03-29-2025 End: 03-29-[address] Alexey Mayberry MD Work Phone: -[facility] Start: 03-26-[address] 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); Primary hypertension; COPD exacerbation (HCC); Mass of right parotid gland; Gastrointestinal hemorrhage, unspecified gastrointestinal hemorrhage type; Multiple subsegmental pulmonary emboli without acute cor pulmonale (HCC) Start: 03-19-2025 End: 03-19-2025 ambulatory ALEXEY MAYBERRY Facility:[facility] Start: 03-12-2025 End: 03-12-2025 ambulatory [facility] Start: 03-12-2025 End: 03-12-2025 Office outpatient visit 25 minutes Bob Rebolledo MD Work Phone: [facility] Comment on above: Lesion of parotid gl and (Primary Dx); Other cysts of oral region, not elsewhere classified Start: 02-26-2025 End: 02-26-2025 ambulatory [facility] Start: 02-26-2025 End: 02-26-2025 Office outpatient visit 15 minutes Bob Rebolledo MD Work Phone: [facility] Comment on above: Lesion of parotid gl and (Primary Dx) Start: 02-24-2025 End: 02-24-2025 Patient encounter procedure Susan RIBEIRO -[facility] Work Phone: Start: 02-24-2025 End: 02-24-2025 ambulatory Jose Duff MD Work Phone: [facility] Work Phone: Start: 02-23-[address] Mallika Mayberry MD -Physical Therapy Work Phone: Start: 02-18-2025 End: 02-20-2025 Refill Alexey Mayberry MD Work Phone: [facility] [place] Comment on above: Refill Request Start: 02-10-2025 End: 02-10-2025 Telephone encounter Alexey Mayberry MD Work Phone: [facility] [place] Comment on above: Home Health Update Start: 02-09-2025 Non-patient / Non-visit David Sergey shirley DO -[facility] Start: 02-09-2025 End: 02-09-2025 Admission to same day surgery center David Jackson DO -Endoscopy Work Phone: Start: 02-09-2025 End: 02-09-2025 ambulatory No Primary Care Physician [facility] Work Phone: Start: 02-05-2025 End: 02-06-2025 Refill Alexey Mayberry MD Work Phone: [facility] [place] Comment on above: Refill Request Urge incontinence of urine (Primary Dx); Lower urinary tract symptoms; Rib contusion, right, initial encounter; Major depressive disorder with psychotic features (HCC); Primary hypertension Start: 01-27-2025 End: 01-27-2025 Patient encounter procedure Debbi Schaffer MANAGER OF DISASTER RECOVERY-C -[facility] Work Phone: Start: 01-27-2025 End: 01-27-2025 ambulatory No Primary Care Physician [facility] Work Phone: Start: 01-15-2025 End: 01-15-2025 ambulatory John Gardner RN Work Phone: [employer] Start: 01-15-2025 End: 01-15-2025 Coordination of care plan John Gardner RN Work Phone: [employer] Comment on above: Care Coordination ([facility]/) Start: 01-02-2025 End: 01-02-2025 ambulatory Jose Duff MD Work Phone: [facility] Work Phone: Start: 01-02-2025 End: 01-02-2025 Patient encounter procedure Debbi Schaffer MANAGER OF DISASTER RECOVERY-C -Cat Scan [facility] Work Phone: Start: 01-02-2025 End: 01-02-2025 Debbi Schaffer MANAGER OF DISASTER RECOVERY-C -Cat Scan, [facility] Work Phone: Start: 01-02-2025 End: 01-02-2025 ambulatory Debbi Schaffer MANAGER OF DISASTER RECOVERY Facility:[facility] Start: 12-23-2024 End: 12-23-2024 Telephone encounter Godfrey Steel MD Work Phone: [place] Start: 12-18-2024 End: 12-18-2024 ambulatory [facility] Start: 12-18-2024 End: 12-18-2024 Office consultation new/estab patient 40 min Bob Rebolledo MD Work Phone: [facility] Comment on above: Neck mass (Primary D x); Lesion of parotid gland; Impacted cerumen of left ear Start: 12-09-2024 End: 12-09-2024 ambulatory ALEXEY MAYBERRY Facility:[facility] Start: 12-09-2024 End: 12-09-2024 Patient encounter procedure Alexey Mayberry MD Work Phone: [facility] [place] Comment on above: Quadriparesis (HCC) (Primary Dx); Major depressive disorder with psychotic features (HCC); COPD exacerbation (HCC); Mass of right parotid gland; Need for vaccination; Gastrointestinal hemorrhage, unspecified gastrointestinal hemorrhage type; 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); Multiple subsegmental pulmonary emboli without acute cor pulmonale (HCC) Start: 12-08-2024 End: 12-08-2024 ambulatory ALEXEY MAYBERRY Facility:[facility] Start: 12-07-2024 End: 12-07-2024 Social Work Yany GARCIA [facility] Comment on above: Encounter for social work intervention (Primary Dx) Start: 12-04-2024 End: 12-04-2024 ambulatory Juli Carreon RN Work Phone: [employer] Comment on above: Initial enrollment [facility] Start: 11-19-2024 End: 11-19-2024 Patient encounter procedure Susan Merino MANAGER OF DISASTER RECOVERY-C -[facility] Work Phone: Start: 11-19-2024 End: 11-19-2024 Susan REILLYC -[facility] Work Phone: Start: 11-19-2024 End: 11-19-2024 ambulatory Susan Merino Facility[facility] Start: 11-18-2024 End: 11-18-2024 ambulatory ALEXEY MAYBERRY Facility:[facility] Start: 11-18-2024 End: 11-18-2024 Subsequent hospital visit by physician Sarabjit [facility] Work Phone: Radiology Comment on above: COPD exacerbation (H CC) [J44.1] Start: 11-18-2024 End: 11-18-2024 ambulatory ALEXEY MAYBERRY Facility:[facility] Start: 11-18-2024 End: 11-18-2024 Patient encounter procedure Alexey Mayberry MD Work Phone: [facility] [place] Comment on above: COPD exacerbation (H CC) (Primary Dx); Quadriparesis (HCC); Subarachnoid hemorrhage (HCC); 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); Major depressive disorder with psychotic features (HCC); Multiple subsegmental pulmonary emboli without acute cor pulmonale (HCC); Gastrointestinal hemorrhage, unspecified gastrointestinal hemorrhage type Start: 11-17-2024 End: 11-24-2024 Telephone encounter Alexey Mayberry MD Work Phone: [facility] [place] Comment on above: Rx Refills; increase d fatigue; Consult Start: 11-16-2024 End: 11-16-2024 ambulatory Alexey Mayberry MD Work Phone: [facility] Comment on above: Allied Health Visit (Medication Adherence Outreach/) Refill Request Start: 11-08-2024 End: 11-10-2024 Follow-up encounter Alexey Mayberry MD Work Phone: [facility] [place] Comment on above: Leukocytosis, unspec ified type (Primary Dx); Type 2 diabetes mellitus without complication, without long-term current use of insulin (HCC) Start: 11-06-2024 End: 11-06-2024 Subsequent hospital visit by physician [facility] Work Phone: Radiology Comment on above: COPD exacerbation (H CC) [J44.1] Start: 11-06-2024 End: 11-06-2024 ambulatory ALEXEY MAYBERRY Facility:[facility] Start: 11-06-2024 End: 11-06-2024 Patient encounter procedure Alexey Mayberry MD Work Phone: [facility] [place] Comment on above: Gastrointestinal hem orrhage, unspecified gastrointestinal hemorrhage type (Primary Dx); COPD exacerbation (HCC); Bronchiectasis with acute exacerbation (HCC); Quadriparesis (HCC); Fever, unspecified fever cause; Primary hypertension; Major depressive disorder with psychotic features (HCC); Type 2 diabetes mellitus without complication, without long-term current use of insulin (HCC); 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); Multiple subsegmental pulmonary emboli without acute cor pulmonale (HCC) Start: 11-05-2024 ambulatory David Jackson Facility :[facility] Start: 11-02-2024 End: 11-02-2024 ambulatory Alexey Mayberry MD Work Phone: Internal [facility] Start: 11-02-2024 End: 11-02-2024 Telephone encounter Dixon Phil Zack MALDONADO Work Phone: Internal Medicine [place] Comment on above: 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 Comfort Estevez MD -[facility] Work Phone: Start: 10-31-2024 Dr. Luiz Estevez MD -[facility] Work Phone: Start: 10-30-2024 Non-patient / Non-visit Dr. Comfort Estevez MD -[facility] Work Phone: Start: 10-30-2024 Dr. Luiz Estevez MD -[facility] Work Phone: Start: 10-30-2024 Non-patient / Non-visit David Rincon nd DO -[facility] Start: 10-30-2024 David Friend DO [facility] Start: 10-29-2024 Non-patient / Non-visit Dr. Comfort Estevez MD -[facility] Work Phone: Start: 10-29-2024 Dr. Luiz Estevez MD -[facility] Work Phone: Start: 10-29-2024 Non-patient / Non-visit David Rincon nd DO -[facility] Start: 10-29-2024 David Friend DO -[facility] Start: 10-28-2024 Non-patient / Non-visit Dr. Dean kirby [facility] Work Phone: Start: 10-28-2024 ambulatory Dean Cheney Facility:[facility] Start: 10-28-2024 End: 10-31-2024 Evaluation and management of inpatient Dr. Luiz Estevez MD -Progressive Care Unit Work Phone: Start: 10-28-2024 End: 10-31-2024 Dr. Luiz Estevez MD -Progressive Care Unit Work Phone: Start: 10-26-2024 End: 10-26-2024 Telephone encounter Alexey Mayberry MD Work Phone: Internal Medicine [place] Comment on above: Request Outside [facility] Records Start: 10-20-2024 End: 10-20-2024 Patient encounter procedure MANAGER OF DISASTER RECOVERY Delphine Hollingsworth [facility] Pulmonary Medicine Work Phone: Start: 10-20-2024 End: 10-20-2024 MANAGER OF DISASTER RECOVERY Delphine Hollingsworth [facility] Pulmona ry Medicine Work Phone: Start: 10-20-2024 End: 10-20-2024 ambulatory Out of Town Doctor Facility:[facility] Start: 10-19-2024 End: 10-19-2024 Telephone encounter Alexey Mayberry MD Work Phone: Family Medicine [place] Start: 10-15-2024 End: 10-15-2024 Patient encounter procedure Susan RIBEIRO -[facility] Work Phone: Start: 10-15-2024 End: 10-15-2024 Susan Merino NP-C -[facility] Work Phone: Start: 10-15-2024 End: 10-15-2024 ambulatory Susan Merino Facility:[facility] Start: 10-13-2024 End: 10-13-2024 Patient encounter procedure iSerra MIRANDA -[facility] Work Phone: Start: 10-13-2024 End: 10-13-2024 Sierra Arrieta [place] -[facility] Work Phone: Start: 10-13-2024 End: 10-13-2024 ambulatory No Primary Care Physician Facility:[facility] Start: 10-08-2024 End: 10-08-2024 ambulatory Genaro Rodriguez MA [facility] Start: 10-08-2024 End: 10-08-2024 Patient encounter procedure Genaro Rodriguez MA [facility] Comment on above: Population Health Na vigation Outreach ([employer] high risk attempt 3) Start: 10-06-2024 End: 10-06-2024 Patient encounter procedure Debbi REILLYC -[facility] Work Phone: Start: 10-06-2024 End: 10-06-2024 Debbi REILLYC -[facility] Work Phone: Start: 10-06-2024 End: 10-06-2024 ambulatory Debbi Schaffer NP Facility:[facility] Start: 10-05-2024 End: 10-05-2024 ambulatory Genaro Rodriguez MA [facility] Start: 10-05-2024 End: 10-05-2024 Patient encounter procedure Genaro Rodriguez MA [facility] Comment on above: Population Health Na vigation Outreach (Hum[employer] high risk attempt 2) Start: 09-29-2024 End: 09-29-2024 ambulatory Genaro Rodriguez MA [facility] Start: 09-29-2024 End: 09-29-2024 Patient encounter procedure Genaro Rodriguez MA [facility] Comment on above: Population Health Na vigation Outreach (Hum[employer] high prioity attempt 1) Start: 09-12-2024 Dr. Thai orona DO [facility] Inpatient Physicians Work Phone: Start: 09-11-2024 End: 09-12-2024 Evaluation and management of inpatient [facility] Facility:[facility] Start: 09-11-2024 ambulatory Jaqui Adler Facility :[facility] Start: 09-11-2024 End: 09-12-2024 Dr. Thai Riley DO [facility] Work Phone: Start: 09-08-2024 End: 09-11-2024 ambulatory Alexey Mayberry MD Work Phone: Internal Medicine [place] [id number] Start: 2024 End: 2024 ambulatory Luz Donato MA [facility] Start: 2024 End: 2024 Patient encounter procedure Luz Donato MA [facility] Comment on above: Population Health Na vigation Outreach ([employer]/[place] ) Start: 08-17-2024 End: 08-17-2024 ambulatory Debbi Schaffer NP Facility:[facility] Start: 08-16-2024 End: 08-16-2024 Emergency department patient visit LOLA JUAREZ Facility:[facility] Start: 08-11-2024 End: 08-11-2024 Emergency department patient visit Alexey Mayberry Facility:[facility] Start: 08-10-2024 End: 08-10-2024 Telephone encounter Alexey Mayberry MD Work Phone: Internal Medicine [place] Comment on above: Clinical Update Start: 08-07-2024 End: 08-07-2024 ambulatory Alexey Mayberry Facility:[facility] Start: 07-17-2024 ambulatory Alexey Mayberry Facili ty:[facility] Start: 07-17-2024 End: 08-10-2024 Evaluation and management of inpatient David Jackson Facility:[facility] Start: 07-06-2024 End: 07-06-2024 [facility] [place] [facility] Start: 07-06-2024 End: 07-06-2024 Patient encounter procedure Luz Donato MA [facility] [place] Comment on above: Population Health Na vigation Outreach ([facility] ) Start: 06-21-2024 End: 06-21-2024 Orders Only Geneva Perales PA-C Work Phone: [place] [facility] Comment on above: Cerebral hemorrhage (HCC) (Primary Dx) Start: 06-12-2024 End: 06-12-2024 ambulatory Marguerite Adler RN Work Phone: Tw[employer] Management Comment on above: RADHA SEYMOUR RN ( ED Utilization review per request of payor) Start: 06-04-2024 End: 06-04-2024 ambulatory John Donato APRN.FELLING MACHINE OPERATOR Work Phone: Critical Care Start: 06-04-2024 End: 06-23-2024 Evaluation and management of inpatient ALEXEY MAYBERRY Facility:[facility] Start: 06-03-2024 End: 06-03-2024 Emergency department patient visit Alexey Asad Facility:[facility] Start: 06-02-2024 End: 06-02-2024 ambulatory HEATHER DAVIS Facility:[facility] Start: 06-02-2024 End: 06-02-2024 Patient encounter procedure Heather Davis APRN.FELLING MACHINE OPERATOR Work Phone: Internal Medicine [place] Comment on above: Medicare annual well ness visit, subsequent (Primary Dx); Primary hypertension; Coronary artery disease involving [place] heart without angina pectoris, unspecified vessel or lesion type; Hyperlipidemia, unspecified hyperlipidemia type; Chronic obstructive pulmonary disease, unspecified COPD type (HCC); Current smoker; Other osteoporosis without current pathological fracture; Seasonal allergic rhinitis due to fungal spores; Screening for depression; Encounter for screening examination for other mental health and behavioral disorders Start: 05-11-2024 ambulatory Alexey Gibson ty:[facility] Start: 05-04-2024 End: 05-04-2024 Emergency department patient visit Alexey Mayberry Facility:[facility] Start: 04-14-2024 End: 04-14-2024 Emergency department patient visit Alexey Mayberry Facility:[facility] Start: 04-09-2024 End: 04-09-2024 ambulatory Sean Carmelo Facility:[facility] Start: 03-17-2024 ambulatory Corbin Kaufman MA [facility] [place] Start: 03-17-2024 Patient encounter procedure Corbin Kaufman MA [facility] [place] Comment on above: Appointment Start: 01-04-2024 End: 01-04-2024 Emergency department patient visit Dr. Alexey Mayberry Work Phone: [facility]-Emergency Department Work Phone: Start: 01-02-2024 End: 01-02-[address] Alexey Mayberry Work Phone: [facility] Work Phone: Start: 01-02-2024 End: 01-02-[address] Alexey Mayberry Work Phone: [facility] Work Phone: Start: 01-02-2024 End: 01-02-[address] Alexey Mayberry Work Phone: [facility] Pulmonary Medicine Work Phone: Start: 10-03-2023 End: 10-03-2023 Non-patient / Non-visit Dr. Alexey Mayberry Work Phone: [facility] Work Phone: Start: 10-03-2023 End: 10-03-[address] Alexey Mayberry Work Phone: [facility]-Pulmonary Services/Neurology Work Phone: Start: 09-26-2023 End: 09-26-2023 Emergency department patient visit Dr. Alexey Mayberry Work Phone: [facility]-Emergency Department Work Phone: Start: 07-23-2023 End: 07-23-[address] Alexey Mayberry Work Phone: [facility] Work Phone: Start: 07-11-2023 End: 07-11-[address] Alexey Mayberry Work Phone: [facility]-Pulmonary Medicine [facility] Work Phone: Start: 07-07-2023 End: 07-07-2023 Emergency department patient visit Dr. Alexey Mayberry Work Phone: [facility]-Emergency Department Work Phone: Start: 06-28-2023 End: 06-29-2023 ambulatory MIC JOY PA-C Facility:[facility] Start: 06-28-2023 End: 06-28-2023 Patient encounter procedure MIC JOY PA-C [facility] Start: 06-28-2023 End: 06-28-2023 Preprocedural examination done MIC JOY PA-C [facility] Start: 04-12-2023 End: 04-12-[address] Alexey Mayberry Work Phone: [facility] Work Phone: Start: 04-12-2023 End: 04-12-[address] Alexey Mayberry Work Phone: [facility]-Laboratory, Specimen Work Phone: Start: 04-11-2023 End: 04-11-[address] Alexey Mayberry Work Phone: [facility] Work Phone: Start: 03-19-2023 End: 03-19-2023 Emergency department patient visit Dr. Alexey Mayberry Work Phone: [facility]-Emergency Department Work Phone: Start: 02-25-2023 Non-patient / Non-visit Dr. Adriane Mayberry Work Phone: [facility] Start: 02-25-2023 End: 02-25-[address] Alexey Mayberry Work Phone: [facility] Work Phone: Start: 02-25-2023 End: 02-25-[address] Alexey Mayberry Work Phone: [facility]-Pulmonary Services/Neurology Work Phone: Start: 02-01-2023 End: 02-01-[address] [facility] Start: 01-25-2023 End: 01-25-[address] Alexey Mayberry Work Phone: [facility] Work Phone: Start: 01-25-2023 End: 01-25-[address] Alexey Mayberry Work Phone: [facility]-Radiology, [facility] Start: 01-21-2023 End: 01-21-[address] Alexey Mayberry Work Phone: [facility] Start: 12-20-2022 End: 12-20-[address] Alexey Mayberry Work Phone: [facility] Gastroenterology Start: 12-17-2022 End: 12-17-2022 Patient encounter procedure Eun Contreras PA-C Work Phone: [facility] Comment on above: Impacted cerumen of left ear (Primary Dx); COPD with exacerbation (HCC) Start: 11-29-2022 Non-patient / Non-visit Dr. Adriane Mayberry Work Phone: [facility] Start: 11-29-2022 End: 11-29-2022 Admission to same day surgery center Dr. Alexey Mayberry Work Phone: [facility]-Endoscopy Start: 11-29-2022 End: 11-29-[address] Alexey Mayberry Work Phone: [facility] Work Phone: Start: 11-09-2022 End: 11-09-[address] Alexey Mayberry Work Phone: [facility] Work Phone: Start: 11-09-2022 End: 11-09-[address] Alexey Mayberry Work Phone: [facility] Start: 10-02-2022 End: 10-02-[address] Alexey Mayberry Work Phone: [facility] Gastroenterology Start: 09-13-2022 End: 09-13-[address] Alexey Mayberry Work Phone: [facility]-Pulmonary Medicine [facility] Start: 07-18-2022 End: 07-18-2022 Non-patient / Non-visit Dr. Alexey Mayberry Work Phone: [facility] Start: 07-18-2022 End: 07-18-[address] Alexey Mayberry Work Phone: [facility]-Pulmonary Services/Neurology Start: 07-05-2022 End: 07-05-[address] Alexey Mayberry Work Phone: [facility] Work Phone: Start: 07-05-2022 End: 07-05-[address] Alexey Mayberry Work Phone: [facility]-Radiology, [facility] Start: 07-02-2022 End: 07-02-[address] Alexey Mayberry [facility] Start: 06-30-2022 End: 06-30-2022 Emergency department patient visit DR ZORAIDA LOW [facility] Start: 06-22-2022 End: 06-22-[address] Alexey Mayberry Work Phone: [facility] Start: 06-18-2022 End: 06-18-2022 Patient encounter procedure Heather Flores APRN.FELLING MACHINE OPERATOR Work Phone: Internal [facility] Comment on above: Primary hypertension (Primary Dx); Dysphagia, unspecified type; Chronic obstructive pulmonary disease with acute exacerbation (HCC); Allergic rhinitis due to dust mite; VIVI on CPAP Start: 06-14-2022 ambulatory Alexey jackson MD Work Phone: [facility] Comment on above: Derm Problem Start: 03-16-2022 End: 03-16-[address] Alexey Mayberry [facility] Start: 02-09-2022 Patient Msg Shannan Dao JOSE ELIAS [facility] Comment on above: Medication Refill Start: 02-09-2022 Refill Cornell Astorga APRN.FELLING MACHINE OPERATOR Work Phone: [facility] Comment on above: Refill Request Start: 02-01-2022 Refill Alexey jackson MD Work Phone: Internal [facility] Comment on above: Refill Request Start: 01-17-2022 End: 01-17-2022 Subsequent hospital visit by physician Sarabjit [facility] Work Phone: Radiology Comment on above: Pre-operative examin ation [Z01.818] Start: 01-17-2022 End: 01-17-2022 Admission to establishment [facility] Work Phone: [facility] Start: 01-17-2022 End: 01-17-2022 ambulatory [facility] 1 Work Phone: Pre Anesthesia Comment on above: Pre-operative examin ation (Primary Dx); Dysphagia, unspecified type; Asthma with acute exacerbation, unspecified asthma severity, unspecified whether persistent; Chronic obstructive pulmonary disease with acute exacerbation (HCC); Coronary artery disease involving [place] heart without angina pectoris, unspecified vessel or lesion type; Hyperlipidemia, unspecified hyperlipidemia type; Primary hypertension; VIVI on CPAP; Former smoker Start: 01-17-2022 End: 01-17-2022 Preprocedural examination done [facility] 1 Work Phone: Radiology Start: 01-10-2022 End: 01-10-2022 Emergency department patient visit Dr. Alexey Mayberry Work Phone: [facility]-Emergency Department Start: 01-06-2022 Refill Cornell Rizwan KRUGER Work Phone: [facility] Comment on above: Refill Request Start: 01-05-2022 End: 01-05-2022 Patient encounter procedure Deanna Burnham APRN.CNP Work Phone: Gastroenterology Comment on above: Dysphagia, unspecifi ed type (Primary Dx); Gastroesophageal reflux disease, unspecified whether esophagitis present Start: 12-26-2021 End: 12-26-2021 Subsequent hospital visit by physician [facility] Work Phone: Radiology Comment on above: Difficulty swallowin g solids [R13.10] Start: 12-21-2021 Refill Cornell Rizwan KRUGER Work Phone: [facility] Comment on above: Refill Request Start: 12-19-2021 End: 12-19-2021 Patient encounter procedure Kamran Blaz AWNING INSTALLER.FELLING MACHINE OPERATOR, DNP Work Phone: [facility] Comment on above: Difficulty swallowin g solids (Primary Dx); Bronchiectasis with acute exacerbation (HCC) Start: 12-18-2021 ambulatory Alexey jackson MD Work Phone: [facility] [place] Comment on above: Difficulty Swallowin g Start: 12-15-2021 End: 12-15-2021 Patient encounter procedure Alexey Mayberry MD Work Phone: [facility] [place] Comment on above: Chronic obstructive pulmonary disease with acute exacerbation (HCC) (Primary Dx); Pneumonia due to infectious organism, unspecified laterality, unspecified part of lung; Coronary artery disease involving [place] tribe heart without angina pectoris, unspecified vessel or lesion type Start: 12-14-2021 Non-patient / Non-visit Dr. Adriane Mayberry Work Phone: [facility] Start: 12-13-2021 Non-patient / Non-visit Dr. Adriane Mayberry Work Phone: [facility] Start: 12-12-2021 Non-patient / Non-visit Dr. Adriane Mayberry Work Phone: [facility] Start: 12-12-2021 End: 12-14-2021 Evaluation and management of inpatient Dr. Alexey Mayberry Work Phone: [facility]-Medical Surgical 3 Start: 12-11-2021 Refill Cornell Astorga APRN.FELLING MACHINE OPERATOR Work Phone: [facility] Comment on above: Refill Request Start: 11-20-2021 End: 11-20-[address] Alexey Mayberry [facility] Start: 11-02-2021 End: 11-02-[address] Alexey Mayberry Work Phone: [facility] Start: 10-03-2021 End: 10-03-[address] Alexey Mayberry [facility] Start: 09-15-2021 End: 09-15-2021 Emergency department patient visit Dr. Alexey Mayberry Work Phone: [facility]-Emergency Department Start: 08-31-2021 Non-patient / Non-visit Dr. Adriane Mayberry Work Phone: [facility] Start: 08-30-2021 Non-patient / Non-visit Dr. Adriane Mayberry Work Phone: [facility] Start: 08-30-2021 Non-patient / Non-visit Dr. Adriane Mayberry Work Phone: [facility] Start: 08-29-2021 Non-patient / Non-visit Dr. Adriane Mayberry Work Phone: [facility] Start: 08-29-2021 Non-patient / Non-visit Dr. Adriane Mayberry Work Phone: [facility] Start: 08-28-2021 End: 08-31-2021 Evaluation and management of inpatient Dr. Alexey Mayberry Work Phone: [facility]-Progressive Care Unit Start: 08-28-2021 Non-patient / Non-visit Dr. Adriane Mayberry Work Phone: [facility] Start: 03-27-2018 End: 03-28-2018 Patient encounter ELMO Drew [facility] al Procedures Date Procedure Procedure Detail Performing Clinician Start: 02-09-2025 Esophagogastroduodenoscopy No Primary Ca re Physician Start: 02-05-2025 Urnls dip stick/tablet rgnt auto w/o microscopy Alexey Mayberry MD Work Phone: Start: 01-02-2025 CT of chest Jose Duff MD Work Phone: Start: 11-06-2024 Lipid 1996 panel - Serum or Plasma Mallika Mayberry MD Work Phone: Start: 10-31-2024 Blood count smear mcrscp w/mnl difrntl wbc count Jose Duff MD Work Phone: Start: 10-31-2024 Mean corpuscular hemoglobin concentration determination Jsoe Duff MD Work Phone: Start: 10-31-2024 Nucleated red blood cell count procedure Jose Duff MD Work Phone: Start: 10-31-2024 Platelet mean volume determination Jose Duff MD Work Phone: Start: 10-30-2024 Esophagogastroduodenoscopy Jose Duff MD Work Phone: Start: 10-30-2024 Calculation of international normalized ratio Jose Duff MD Work Phone: Start: 10-30-2024 Estimated creatinine clearance Jose altman MD Work Phone: Start: 10-28-2024 Measurement of occult blood in gastric fluid specimen Jose Duff MD Work Phone: Start: 10-28-2024 Measurement of occult blood in stool specimen using immunoassay Jose Duff MD Work Phone: Start: 10-28-2024 Plain X-ray abdomen Jose Duff MD Work Phone: Start: 10-28-2024 Triacylglycerol lipase measurement Jose Duff MD Work Phone: Start: 09-12-2024 Albumin/Globulin ratio Jose Duff MD Work Phone: Start: 09-12-2024 Anion gap measurement Jose Duff MD Work Phone: Start: 09-12-2024 Blood count smear mcrscp w/mnl difrntl wbc count Jose Duff MD Work Phone: Start: 09-12-2024 BUN/Creatinine ratio Jose Duff MD Work Phone: Start: 09-12-2024 Estimated creatinine clearance Jose altman MD Work Phone: Start: 09-12-2024 Mean corpuscular hemoglobin concentration determination Jose Duff MD Work Phone: Start: 09-12-2024 Measurement of renal function Jose funes MD Work Phone: Start: 09-12-2024 Nucleated red blood cell count procedure Jose Duff MD Work Phone: Start: 09-12-2024 Platelet mean volume determination Jose Duff MD Work Phone: Start: 09-11-2024 Assay of phosphorus inorganic Jose funes MD Work Phone: Start: 09-11-2024 Bacterial nucleic acid assay Jose weston MD Work Phone: Start: 09-11-2024 Blood culture Jose Duff MD Work Phone: Start: 09-11-2024 Gram stain microscopy Jose Duff MD Work Phone: Start: 09-11-2024 Legionella pneumophila antigen assay Jose Duff MD Work Phone: Start: 09-11-2024 Nucleic acid assay Jose Duff MD Work Phone: Start: 09-11-2024 Respiratory microbial culture Jose funes MD Work Phone: Start: 09-11-2024 End: 09-11-2024 Streptococcus pneumoniae antigen assay Jose Duff MD Work Phone: Start: 09-11-2024 Urine culture Jose Duff MD Work Phone: Start: 09-11-2024 Jose Duff MD Work Phone: Start: 09-11-2024 Urine microscopy: red cells Jose Duff MD Work Phone: Start: 09-11-2024 Urnls dip stick/tablet reagent auto microscopy Jose Duff MD Work Phone: Start: 09-11-2024 Assay of lactate Jose Duff MD Work Phone: Start: 09-11-2024 Calculation of international normalized ratio Jose Duff MD Work Phone: Start: 09-11-2024 Plain chest X-ray Jose Duff MD Work Phone: Start: 06-18-2024 End: 11-18-2024 H/O: tracheostomy Tracheostomy status Alexey Mayberry MD Work Phone: Start: 06-04-2024 Echocardiography ALEXEY MAYBERRY Start: 06-02-2024 Adult depression screening assessment Heather Davis APRN.CNP Work Phone: Start: 01-04-2024 Plain chest X-ray Dr. Alexey Mayberry Work Phone: Start: 01-02-[address] Alexey Mayberry Work Phone: Start: 09-26-2023 Bacteria identified in Blood by Culture Dr. Alexey Mayberry Work Phone: Start: 09-26-2023 SARS-CoV-2, Influenza & RSV (PCR) Dr. Adriane Mayberry Work Phone: Start: 09-26-2023 Plain chest X-ray Dr. Alexey Mayberry Work Phone: Start: 04-12-2023 Investigation of transfusion reaction Dr. Alexey Mayberry Work Phone: Start: 04-12-[address] Alexey Mayberry Work Phone: Start: 03-19-2023 Plain chest X-ray Dr. Alexey Mayberry Work Phone: Start: 01-25-[address] Alexey Mayberry Work Phone: Start: 11-29-[address] Alexey Mayberry Work Phone: Start: 03-10-[address] Alexey Mayberry Work Phone: Start: 07-05-[address] Alexey Mayberry Work Phone: Start: 01-17-2022 Radiologic exam chest 2 views Olivia Phipps AWNING INSTALLER.FELLING MACHINE OPERATOR Work Phone: Start: 01-10-2022 SARS-CoV-2 & FLU Antigen (Rapid) Dr. Wade Mayberry Work Phone: Start: 01-10-2022 Plain chest X-ray Dr. Alexey Mayberyr Work Phone: Start: 12-26-2021 Us soft tissue head & neck real time imge docm Kamran Cruz AWNING INSTALLER.FELLING MACHINE OPERATOR, DNP Work Phone: Start: 12-19-2021 Lipid 1996 panel - Serum or Plasma Corbin Kaufman MA Start: 12-12-2021 Plain chest X-ray Dr. Alexey Mayberry Work Phone: Start: 12-12-2021 Bacteria identified in Blood by Culture Dr. Alexey Mayberry Work Phone: Start: 12-12-2021 Investigation of transfusion reaction Dr. Alexey Mayberry Work Phone: Start: 12-12-2021 End: 12-12-[address] Alexey Mayberry Work Phone: Start: 12-12-2021 End: 12-12-2021 Viral antigen assay Dr. Alexey Mayberry Work Phone: Start: 11-02-[address] Alexey Mayberry Work Phone: Start: 08-29-2021 Influenza Types A,B Direct FA (BERTHA) Dr. Alexey Mayberry Work Phone: Start: 08-29-2021 Respiratory Panel (PCR) Dr. Alexey Mayberry Work Phone: Start: 08-29-2021 End: 08-29-2021 Respiratory syncytial virus antigen assay Dr. Alexey Mayberry Work Phone: Start: 08-29-2021 CT angiography of chest with contrast Dr. Alexey Mayberry Work Phone: Start: 08-28-2021 Plain chest X-ray Dr. Alexey Mayberry Work Phone: Start: 12-08-2020 Adult depression screening assessment Cornell Astorga SASKIA Work Phone: Start: 03-01-2017 End: 03-01-2017 Electrocardiogram, complete Crispin lu MD Start: 03-01-2017 End: 03-08-2017 Follow Up Appt 6 months Crispin Upton MD Start: 03-01-2017 End: 03-08-2017 Follow Up Appt Other Crispin Upton MD Start: 03-01-2017 End: 03-08-2017 MMM Crispin Upton MD Start: 07-12-2016 Lipid 1996 panel - Serum or Plasma Derick Rebolledo MD Work Phone: Start: 07-12-2016 End: 03-15-2017 *Hepatic Function Panel Sierra Arrieta PA-C Work Phone: Start: 07-12-2016 End: 03-15-2017 Lipid 1996 panel - Serum or Plasma Maddy Arrieta PA-C Work Phone: Start: 05-09-2016 End: [...] End: 12-30-2014 Nuclear stress test -exercise Crispin cee MD Start: 10-29-2014 End: 10-30-2014 Documentation of [...] End: 10-29-2014 Nuclear stress test -exercise Crispin cee MD Start: 05-14-2013 Percutaneous transluminal coronary angioplasty CORONARY ARTERY DISEASE, S/P PTCA Angelinajcarlos Reddy Start: 05-14-2013 End: 10-29-2014 PFM Crispin Upton MD Start: 05-13-2013 Percutaneous transluminal coronary angioplasty PERCUTANEOUS TRANSLUMINAL CORONARY ANGIOPLASTY, HX OF Antonio Reddy H/O: surgery Jose Duff MD Work Phone: H/O: tracheostomy Tracheostomy s tatus ([facility]) Alexey Mayberry MD Work Phone: H/O: tracheostomy Jose funes MD Work Phone: Plan of Treatment Date Care Activity Detail Author Start: 11-06-2029 Lipid panel Lipid Screening [facility] Start: 10-23-2028 Prostate specific antigen measurement Prostate Cancer Screening Discussion [facility] Start: 01-02-2028 DTaP/Tdap/Td Vaccines (2 - Td or Tdap) DTaP/Tdap/Td Vaccines (2 - Td or Tdap) [facility] Start: 01-02-2028 Urine microalbumin profile [facility] Start: 12-09-2027 Diabetes Screening Diabetes Screening [facility] Start: 11-07-2027 Diabetes Screening Diabetes Screening [facility] Start: 06-12-2027 Diabetes Screening Diabetes Screening [facility] Start: 06-04-2027 Diabetes Screening Diabetes Screening [facility] Start: 04-30-2027 Screening for malignant neoplasm of colon [facility] Start: 12-19-2026 Lipid panel Lipid Screening [facility] Start: 12-19-2026 LIPID SCREEN LIPID SCREEN [facility] Start: 03-19-2026 Annual PCP Team Chronic Disease Visit Annual PCP Team Chronic Disease Visit [facility] Start: 02-05-2026 Annual PCP Team Chronic Disease Visit Annual PCP Team Chronic Disease Visit [facility] Start: 02-05-2026 BP Controlled (<130/80) BP Controlled (<130/80) [facility] Start: 12-09-2025 Annual PCP Team Chronic Disease Visit Annual PCP Team Chronic Disease Visit [facility] Start: 12-09-2025 BP Controlled (<130/80) BP Controlled (<130/80) [facility] Start: 12-08-2025 LIPID SCREEN LIPID SCREEN [facility] Start: 11-18-2025 Annual PCP Team Chronic Disease Visit Annual PCP Team Chronic Disease Visit [facility] Start: 11-18-2025 BP Controlled (<130/80) BP Controlled (<130/80) [facility] Start: 11-09-2025 Hepatitis B screening Urine Albumin:Creatinine Ratio [facility] Start: 11-06-2025 Annual PCP Team Chronic Disease Visit Annual PCP Team Chronic Disease Visit [facility] Start: 11-06-2025 Diabetes mellitus screening Diabetes Screening [facility] Start: 11-06-2025 Hepatitis B surface antibody level LDL Cholesterol [facility] Start: 06-15-2025 Screening for malignant neoplasm of lung Lung Cancer Screening [facility] Start: 06-04-2025 Screening for malignant neoplasm of lung Lung Cancer Screening [facility] Start: 06-02-2025 Annual PCP Team Chronic Disease Visit Annual PCP Team Chronic Disease Visit [facility] Start: 06-02-2025 Anxiety Screening Anxiety Screening [facility] Start: 06-02-2025 BP Controlled (<130/80) BP Controlled (<130/80) [facility] Start: 06-02-2025 Depression Screening Depression Screening [facility] Start: 06-02-2025 RSV Vaccine (1 - Risk 60-74 years 1-dose series) RSV Vaccine (1 - Risk 60-74 years 1-dose series) [facility] Comment on above: Postponed from 2021 (Declined at t his time) Start: 06-02-2025 End: 06-02-2025 Patient encounter procedure 06/02/2025 1:40 PM EDT Office Visit [facility] [address] [place] [id number] Alexey Mayberry MD [address] [place] [address] Medicare Wellness [facility] Comment on above: Medicare Wellness Start: 05-09-2025 Hemoglobin A1c measurement HbA1C [facility] Start: 05-03-[address] [facility] Start: 04-30-2025 End: 04-30-2025 Patient encounter procedure 04/30/2025 10:45 AM EDT Office Visit [facility] [address] [place] [address] [place] [address] [place] [address] [facility] Start: 04-14-2025 Subsequent hospital visit by physician 04/14/2025 Hospital Encounter [facility] [place] [address] [place] [address] [place] [address] [place] [address] [facility] [place] Start: 03-26-2025 End: 03-26-2025 Patient encounter procedure 03/26/2025 11:15 AM EDT Office Visit [facility] [address] [place] [address] [place] [address] [place] [address] [facility] Start: 03-19-2025 End: 03-19-2025 Patient encounter procedure 03/19/2025 10:40 AM EDT Office Visit [facility] [address] [place], [place] [phone] Alexey Mayberry MD [address] [place], [place] [address] 14 week follow-up [facility] Comment on above: 14 week follow-up Start: 03-12-2025 End: 03-12-2026 Basic metabolic 2000 panel - Serum or Plasma Basic Metabolic Panel Lab Routine Lesion of parotid gland Expected: 03/12/2025 (Approximate), Expires: 03/12/2026 [facility] Work Phone: Comment on above: Expected: 03/12/2025 (Approximate), Expi res: 03/12/2026 Start: 03-12-2025 End: 03-12-2026 CBC panel - Blood by Automated count CBC Lab Routine Lesion of parotid gland Other cysts of oral region, not elsewhere classified Expected: 03/12/2025 (Approximate), Expires: 03/12/2026 [facility] Work Phone: Comment on above: Expected: 03/12/2025 (Approximate), Expi res: 03/12/2026 Start: 03-01-2025 Influenza vaccination Influenza Vaccine (#1) [place] Comment on above: Postponed from 05/03/2024 (Declined at t his time) Start: 02-09-2025 Egd transoral biopsy single/multiple EGD BIOPSY SINGLE/MULTIPLE [facility] Start: 02-09-2025 Patient discharge [facility] Start: 01-26-2025 End: 01-26-2025 Patient encounter procedure 01/26/2025 8:00 AM EDT Office Visit Otolaryngology [address] [address] Godfrey Steel MD [address] [place] [address] [facility]ACE-Parotid [facility] Comment on above: FACE-Parotid Mass Start: 01-02-2025 Screening for malignant neoplasm of lung Lung Cancer Screening [facility] Start: 12-25-2024 Hemoglobin A1c measurement HbA1C [facility] Start: 12-19-2024 DIABETES SCREEN DIABETES SCREEN [facility] Start: 12-19-2024 Diabetes Screening Diabetes Screening [facility] Start: 12-09-2024 End: 12-09-2024 Patient encounter procedure 12/09/2024 10:40 AM EDT Office Visit [facility] [address] [place], [place] [id number] Alexey Mayberry MD [address] [place] [address] 4 week follow up-labs and chest xray [facility] Comment on above: 4 week follow up-labs and chest xray Start: 12-02-2024 End: 03-03-2025 Basic metabolic 2000 panel - Serum or Plasma BASIC METABOLIC PANEL Lab Routine Type 2 diabetes mellitus without complication, without long-term current use of insulin (HCC) Expected: 12/02/2024, Expires: 03/03/2025 [facility] Comment on above: Expected: 12/02/2024, Expires: Start: 12-02-2024 End: 03-03-2025 CBC panel - Blood by Automated count COMPLETE BLOOD COUNT Lab Routine Leukocytosis, unspecified type Expected: 12/02/2024, Expires: 03/03/2025 [facility] Work Phone: Comment on above: Expected: 12/02/2024, Expires: Start: 11-06-2024 End: 11-06-2024 Patient encounter procedure 11/06/2024 10:00 AM EST Office Visit [facility] [address] [place] [address] Alexey Mayberry MD [address] [place] [address] [facility]/ TCM [facility] Comment on above: [facility] f/ TCM Start: 10-31-2024 Patient discharge [facility] Start: 10-30-2024 [facility] Start: 10-30-2024 [facility] Start: 10-29-2024 Referral to service [facility] Start: 10-29-2024 End: 10-29-2024 Patient encounter procedure 10/29/2024 2:00 PM EST Office Visit [facility] [address] [place] [address] Alexey Mayberry MD [address] [facility] [place] [id number] 10/19/24 [facility] - stroke [facility] Comment on above: 10/19/24 [facility] Start: 10-29-2024 Application of intermittent pneumatic compression device [facility] Start: 10-28-2024 Oxygen therapy [facility] Start: 10-28-2024 Following clinical pathway protocol [facility] Start: 10-28-2024 Assessment of risk of venous thromboembolism [facility] Start: 10-28-2024 Documentation procedure [facility] Start: 10-28-2024 Inhalation therapy procedure [facility] Start: 10-28-2024 Insertion of catheter into peripheral vein [facility] Start: 10-28-2024 Providing care according to standard [facility] Start: 10-28-2024 Provision of activity privileges [facility] Start: 10-28-2024 Referral to gastroenterology service [facility] Start: 10-28-2024 [facility] Start: 10-28-2024 Admission procedure [facility] Start: 10-23-2024 Hepatitis B surface antibody level LDL Cholesterol [facility] Start: 09-23-2024 End: 09-23-2024 Patient encounter procedure 09/23/2024 3:30 PM EST Office Visit Cerebrovascular [address] [place], [place] [phone] Yanet Daniels MD [address] [place] [address] stroke June 2024 [facility] Comment on above: stroke June 2024 Start: 09-19-2024 DIABETES SCREEN DIABETES SCREEN [facility] Start: 09-12-2024 Patient discharge [facility] Start: 09-11-2024 Application of intermittent pneumatic compression device [facility] Start: 09-11-2024 Aspiration precautions [facility] Start: 09-11-2024 Assessment of risk of venous thromboembolism [facility] Start: 09-11-2024 Elevation of head of bed [facility] Start: 09-11-2024 Fall prevention [facility] Start: 09-11-2024 Inhalation therapy procedure [facility] Start: 09-11-2024 Insertion of catheter into peripheral vein [facility] Start: 09-11-2024 Introduction of urinary catheter [facility] Start: 09-11-2024 Measuring intake and output [facility] Start: 09-11-2024 Methicillin resistant Staphylococcus aureus screening test [facility] Start: 09-11-2024 Oxygen therapy [facility] Start: 09-11-2024 Patient education [facility] Start: 09-11-2024 Patient referral to dietitian [facility] Start: 09-11-2024 Providing care according to standard [facility] Start: 09-11-2024 Provision of activity privileges [facility] Start: 09-11-2024 Referral to occupational therapist [facility] Start: 09-11-2024 Referral to service [facility] Start: 09-11-2024 Speech therapy assessment [facility] Start: 09-11-2024 Tobacco use cessation education [facility] Start: 09-11-2024 [facility] Start: 09-11-2024 Following clinical pathway protocol [facility] Start: 09-11-2024 Admission procedure [facility] Start: 09-11-2024 Patient referral to dietitian [facility] Start: 09-08-2024 End: 12-08-2024 Hemoglobin A1c in Blood HEMOGLOBIN A1C Lab Routine Type 2 diabetes mellitus without complication, without long-term current use of insulin (HCC) Expected: 09/08/2024, Expires: 12/08/2024 [facility] Work Phone: Comment on above: Expected: 09/08/2024, Expires: Start: 09-08-2024 End: 12-08-2024 Microalbumin/Creatinine [Mass Ratio] in Urine ALBUMIN/CREATININE RATIO, URINE Lab Routine Type 2 diabetes mellitus without complication, without long-term current use of insulin (HCC) Expected: 09/08/2024, Expires: 12/08/2024 [facility] Comment on above: Expected: 09/08/2024, Expires: Start: 09-02-2024 Medicare Advantage Annual Wellness Visit Medicare Advantage Annual Wellness Visit [facility] Start: 07-22-2024 End: 07-22-2024 Patient encounter procedure 07/22/2024 9:30 AM EST Office Visit [facility] [address] [place] [id number] Alondra Currie, AWNING INSTALLER.FELLING MACHINE OPERATOR [address] [facility] [place] [address] 4 wk follow up [facility] Comment on above: 4 wk follow up Start: 05-03-2024 COVID-19 Vaccine () COVID-19 Vaccine () [facility] Start: 05-03-2024 Influenza [facility] Start: 03-31-2024 PROSTATE CANCER SCREENING DISCUSSION PROSTATE CANCER SCREENING DISCUSSION [facility] Start: 03-31-2024 Prostate specific antigen measurement Prostate Cancer Screening Discussion [facility] Start: 03-23-2024 End: 03-23-2024 Patient encounter procedure 03/23/2024 10:20 AM EDT Office Visit [facility] [address] [place] [address] Heather Davis, AWNING INSTALLER.FELLING MACHINE OPERATOR [address] [place] [address] Medicare Wellness [facility] Comment on above: Medicare Wellness Start: 01-04-2024 [facility] Start: 09-26-2023 Bacteria identified in Blood by Culture Blood Culture [facility] Start: 09-26-2023 End: 09-26-2023 Blood culture [facility] Start: 09-26-2023 [facility] Start: 09-02-2023 Behavioral Health Screening Behavioral Health Screening [facility] Start: 06-18-2023 ANNUAL PCP TEAM CHRONIC DISEASE VISIT ANNUAL PCP TEAM CHRONIC DISEASE VISIT [facility] Start: 06-18-2023 BP CONTROLLED (<130/80) BP CONTROLLED (<130/80) [facility] Start: 06-18-2023 PNEUMOCOCCAL (2 - PCV) PNEUMOCOCCAL (2 - PCV) [facility] Comment on above: Postponed from 03/22/2007 (Declined at t his time) Start: 05-03-2023 Covid-19 Vaccine ( season) Covid-19 Vaccine () [facility] Start: 03-19-2023 [facility] Start: 01-17-2023 BP CONTROLLED (<130/80) BP CONTROLLED (<130/80) [facility] Start: 01-05-2023 BP CONTROLLED (<130/80) BP CONTROLLED (<130/80) [facility] Start: 12-19-2022 ANNUAL PCP TEAM CHRONIC DISEASE VISIT ANNUAL PCP TEAM CHRONIC DISEASE VISIT [facility] Start: 12-19-2022 BP CONTROLLED (<130/80) BP CONTROLLED (<130/80) [facility] Start: 12-19-2022 Hepatitis B surface antibody level LDL CHOLESTEROL [facility] Start: 11-29-2022 Egd insert guide wire dilator passage esophagus EGD GUIDE WIRE INSERTION [facility] Start: 11-29-2022 Egd transoral biopsy single/multiple EGD BIOPSY SINGLE/MULTIPLE [facility] Start: 11-29-2022 Patient discharge [facility] Start: 09-19-2022 ANNUAL PCP TEAM CHRONIC DISEASE VISIT ANNUAL PCP TEAM CHRONIC DISEASE VISIT [facility] Start: 09-19-2022 BP CONTROLLED (<130/80) BP CONTROLLED (<130/80) [facility] Start: 09-02-2022 DEPRESSION ASSESSMENT DEPRESSION ASSESSMENT [facility] Start: 07-12-2022 COLORECTAL CANCER SCREENING COLORECTAL CANCER SCREENING [facility] Comment on above: Postponed from 2006 (Declined at t his time) Start: 06-20-2022 COVID-19 VACCINE (#1) COVID-19 VACCINE (#1) [facility] Comment on above: Postponed from 1966 (Declined at t his time) Postponed from 03/03 (Declined at this time) Start: 06-20-2022 COVID-19 VACCINE (1) COVID-19 VACCINE (1) [facility] Comment on above: Postponed from 1966 (Declined at t his time) Start: 05-03-2022 Influenza vaccination [facility] Start: 12-26-2021 End: 01-18-2023 Us soft tissue head & neck real time imge docm US THYROID/PARATHYROID Radiology Routine Difficulty swallowing solids Expected: 12/26/2021 (Approximate), Expires: 01/18/2023 [facility] Work Phone: Comment on above: Expected: 12/26/2021 (Approximate), Expi res: 01/18/2023 Start: 12-12-2021 Bacteria identified in Blood by Culture Blood Culture [facility] Work Phone: Start: 12-08-2021 Adult depression screening assessment DEPRESSION SCREENING [facility] Start: 12-08-2021 Hepatitis B surface antibody level LDL CHOLESTEROL [facility] Start: 2021 RSV High Risk: (Elderly (60+) or Population) (1 - Risk 60-74 years 1-dose series) RSV High Risk: (Elderly (60+) or Population) (1 - Risk 60-74 years 1-dose series) [facility] Start: 2021 RSV Vaccine (1 - 1-dose 60+ series) RSV Vaccine (1 - 1-dose 60+ series) [facility] Start: 09-02-2021 DEPRESSION ASSESSMENT DEPRESSION ASSESSMENT [facility] Start: 07-12-2021 Lipid panel Lipid Panel [facility] Start: 06-09-2021 Hemoglobin A1c measurement HbA1C [facility] Start: 03-20-2020 BP CONTROLLED (<130/80) BP CONTROLLED (<130/80) [facility] Start: 09-10-2017 End: 09-10-2017 Appointment Appointment [facility] Work Phone: Start: 03-15-2017 End: 03-15-2017 Appointment Appointment [email or web address] Work Phone: Start: 03-01-2017 End: 03-01-2017 Appointment Appointment [facility] Work Phone: Start: 03-01-2017 End: 03-06-2017 Echocardiography Echocardiogram (complete) [email or web address] Work Phone: Start: 03-01-2017 End: 03-01-2017 Electrocardiogram, complete EKG (In office) [facility] Work Phone: Start: 03-01-2017 End: 03-08-2017 Follow Up Appt 6 months Follow Up Appt 6 months [facility] Work Phone: Start: 03-01-2017 End: 03-08-2017 Follow Up Appt Other Follow Up Appt Other [facility] Work Phone: Start: 03-01-2017 End: 03-08-2017 MMM MMM [facility] Work Phone: Start: 02-13-2017 End: 02-13-2017 Appointment Appointment [facility] Work Phone: Start: 07-12-2016 End: 03-15-2017 *Hepatic Function Panel *Hepatic Function Panel [facility] Work Phone: Start: 07-12-2016 End: 03-15-2017 Lipid panel [AGGREGATE] *Lipid Profile CC PCP [facility] Work Phone: Start: 05-09-2016 End: 05-09-2016 Follow Up Appt 9 months Follow Up Appt 9 months [facility] Work Phone: Start: 05-09-2016 End: 05-09-2016 PFM PFM [facility] Work Phone: Start: 01-02-2016 End: 01-10-2016 *Hepatic Function Panel *Hepatic Function Panel [facility] Work Phone: Start: 01-02-2016 End: 01-10-2016 Lipid panel [AGGREGATE] *Lipid Profile CC PCP [facility] Work Phone: Start: 10-24-2015 End: 01-11-2016 *Hepatic Function Panel *Hepatic Function Panel [facility] Work Phone: Start: 10-24-2015 End: 10-24-2015 Follow Up Appt 6 months Follow Up Appt 6 months [facility] Work Phone: Start: 10-24-2015 End: 01-11-2016 Lipid panel [AGGREGATE] *Lipid Profile CC PCP [facility] Work Phone: Start: 10-24-2015 End: 10-24-2015 MMM MMM [facility] Work Phone: Start: 06-28-2015 End: 07-01-2015 *Hepatic Function Panel *Hepatic Function Panel [facility] Work Phone: Start: 06-28-2015 End: 06-28-2015 Follow Up Appt 6 months Follow Up Appt 6 months [facility] Work Phone: Start: 06-28-2015 End: 01-10-2016 Follow Up Appt Other Follow Up Appt Other [facility] Work Phone: Start: 06-28-2015 End: 07-01-2015 Lipid panel [AGGREGATE] *Lipid Profile CC PCP [facility] Work Phone: Start: 06-28-2015 End: 06-28-2015 PFM PFM [facility] Work Phone: Start: 12-24-2014 End: 12-24-2014 Follow Up Appt 6 months Follow Up Appt 6 months [facility] Work Phone: Start: 12-24-2014 End: 12-24-2014 MMM MMM [facility] Work Phone: Start: 12-24-2014 End: 12-24-2014 Nuclear stress test -exercise Nuclear stress test -exercise [facility] Work Phone: Start: 10-29-2014 End: 10-29-2014 Follow Up Appt 6 months Follow Up Appt 6 months [facility] Work Phone: Start: 10-29-2014 End: 10-29-2014 MMM MMM [facility] Work Phone: Start: 09-10-2013 End: 06-28-2015 *Hepatic Function Panel *Hepatic Function Panel [facility] Work Phone: Start: 09-10-2013 End: 06-28-2015 Lipid panel [AGGREGATE] *Lipid Profile CC PCP [facility] Work Phone: Start: 07-22-2013 End: 10-29-2014 *Hepatic Function Panel *Hepatic Function Panel [facility] Work Phone: Start: 05-25-2013 End: 06-10-2013 *Hepatic Function Panel *Hepatic Function Panel [facility] Work Phone: Start: 05-25-2013 End: 06-10-2013 Lipid panel [AGGREGATE] *Lipid Profile CC PCP [employer] Work Phone: Start: 05-14-2013 End: 05-14-2013 Echocardiography Echocardiogram (complete) [employer] Work Phone: Start: 05-14-2013 End: 05-14-2013 Electrocardiogram, complete EKG (In office) [employer] Work Phone: Start: 05-14-2013 End: 10-29-2014 Follow Up Appt 6 months Follow Up Appt 6 months [employer] Work Phone: Start: 05-14-2013 End: 10-29-2014 Follow Up Appt Other Follow Up Appt Other [facility] Work Phone: Start: 05-14-2013 End: 05-14-2013 Nuclear stress test -exercise Nuclear stress test -exercise [employer] Work Phone: Start: 05-14-2013 End: 10-29-2014 PFM PFM [employer] Work Phone: Start: 03-22-2007 PNEUMOCOCCAL (2 - PCV) PNEUMOCOCCAL (2 - PCV) [facility] Start: 03-22-2007 Pneumococcal vaccination Pneumococcal Vaccine (2 of 2 - PCV) [facility] Start: 03-22-2007 Pneumococcal Vaccine: 50+ (2 of 2 - PCV) Pneumococcal Vaccine: 50+ (2 of 2 - PCV) [facility] Start: 2006 COLOGUARD (FIT-DNA) COLOGUARD (FIT-DNA) [facility] Start: 2006 Colonoscopy COLONOSCOPY [facility] Start: 2006 COLORECTAL CANCER SCREENING COLORECTAL CANCER SCREENING [facility] Start: [address] COLONOGRAPHY [facility] Start: 2006 FECAL OCCULT BLOOD FECAL OCCULT BLOOD [facility] Start: 2006 Screening for malignant neoplasm of colon [facility] Start: 2006 SIGMOIDOSCOPY SIGMOIDOSCOPY [facility] Start: 1991 Zoledronic acid therapy ALPHA-1 ANTITRYPSIN DEFICIENCY SCREENING [facility] Start: 1979 Hepatitis C screening Hepatitis C Screening [facility] Start: 1971 Diabetic foot examination Diabetic Foot Exam [facility] Start: 1971 Glaucoma screening Dilated Retinal Exam [facility] Start: 1971 Hepatitis B screening Urine Albumin:Creatinine Ratio [facility] Start: 1962 MMR Vaccines (1 of 1 - Standard series) MMR Vaccines (1 of 1 - Standard series) [facility] Start: 03-03-1962 COVID-19 VACCINE (#1) COVID-19 VACCINE (#1) [facility] Start: 1961 Annual wellness visit Welcome to Medicare Visit [facility] Start: 1961 HIV screening HIV Screening [facility] Start: 1961 Screening for malignant neoplasm of colon [facility] Start: 1961 Screening for osteoporosis Bone Density Scan [facility] Bacteria identified in Sputum by Culture [facility] CT Chest [facility] Work Phone: CT Chest [facility] CT Chest [facility] CT Chest WO contrast [facility] End: 07-21-2025 CT Head WO contrast CT BRAIN WO IVCON Radiology Routine Cerebral hemorrhage (HCC) 1 Occurrences starting 06/21/2024 until 07/21/2025 [facility] Work Phone: Comment on above: 1 Occurrences starting 06/21/2024 until 07/21/2025 End: 01-05-2023 EGD DIAGNOSTIC EGD DIAGNOSTIC Endoscopy Routine Dysphagia, unspecified type 1 Occurrences starting 01/05/2022 until 01/05/2023 [facility] Work Phone: Comment on above: 1 Occurrences starting 01/05/2022 until 01/05/2023 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, BRANCHIAL CLEFT CYST Lesion of parotid gland [facility] OR Measurement of respiratory function [facility] MR Brain WO contrast [facility] Non-gynecological cytology method study Cytology Consultation (Non-Gynecologic) Pathology and Cytology Routine Lesion of parotid gland Ordered: 12/18/2024 [facility] Work Phone: Comment on above: Ordered: 12/18/2024 Non-gynecological cytology method study Cytology Consultation (Non-Gynecologic) Pathology and Cytology Routine Lesion of parotid gland Ordered: 02/26/2025 [facility] Work Phone: Comment on above: Ordered: 02/26/2025 Patient Education [facility] Work Phone: Patient referral [facility] Work Phone: Removal impacted cer umen irrigation/lvg unilat AMBULATORY EAR LAVAGE/IRRIGATION Procedures Routine Impacted cerumen of left ear Ordered: 12/17/2022 [facility] Work Phone: Comment on above: Ordered: 12/17/2022 Walking distance 6 minutes [facility] XR Chest PA and Lateral XR CHEST 2V FRONTAL/LAT Radiology Routine COPD exacerbation (HCC) Fever, unspecified fever cause 11/06/2024 11:28 AM EST [facility] Work Phone: End: 12-18-2025 XR Chest PA and Lateral XR CHEST 2V FRONTAL/LAT Radiology Routine COPD exacerbation (HCC) 1 Occurrences starting 11/18/2024 until 12/18/2025 [facility] Work Phone: Comment on above: 1 Occurrences starting 11/18/2024 until 12/18/2025 XR Chest PA and Lateral XR CHEST 2V FRONTAL/LAT Radiology Routine COPD exacerbation (HCC) 11/18/2024 12:32 PM EDT [facility] Immunizations Immunization Date Immunization Notes Care Provider Fa asa 12-09-2024 pneumococcal conjuga te (PCV20) vaccine, 20 valent (PREVNAR 20) Alexey Mayberry MD Work Phone: [facility] 12-09-2024 pneumococcal Conjuga te, unspecified formulation Alexey Mayberry MD Work Phone: [facility] Work Phone: 06-07-2022 influenza virus vacc ine, unspecified formulation Corbin Kaufman MA [facility] 06-04-2022 influenza, injectabl e, quadrivalent, contains preservative Heather Older AWNING INSTALLER.FELLING MACHINE OPERATOR Work Phone: [facility] 06-04-2022 influenza virus vacc ine, unspecified formulation Bob Rebolledo MD Work Phone: [facility] Work Phone: 03-30-2021 zoster vaccine recombinant Cornell Rizwan AWNING INSTALLER.FELLING MACHINE OPERATOR Work Phone: [facility] Work Phone: 05-26-2020 influenza, injectabl e, quadrivalent, contains preservative Cornell Rizwan AWNING INSTALLER.FELLING MACHINE OPERATOR Work Phone: [facility] 07-08-2019 influenza, injectabl e, quadrivalent, contains preservative Cornell Rizwan AWNING INSTALLER.FELLING MACHINE OPERATOR Work Phone: [facility] Work Phone: 05-01-2019 zoster vaccine recombinant Cornell Rizwan AWNING INSTALLER.FELLING MACHINE OPERATOR Work Phone: [facility] Work Phone: 01-01-2018 tetanus toxoid, redu madelin diphtheria toxoid, and acellular pertussis vaccine, adsorbed Cornell Rizwan AWNING INSTALLER.FELLING MACHINE OPERATOR Work Phone: [facility] Work Phone: 05-30-[address] Alexey Mayberry Work Phone: [facility] 05-30-2016 influenza, seasonal, injectable, preservative free Cornell Rizwan AWNING INSTALLER.FELLING MACHINE OPERATOR Work Phone: [facility] Work Phone: 06-21-2012 influenza virus vacc ine, unspecified formulation Cornell Rizwan AWNING INSTALLER.FELLING MACHINE OPERATOR Work Phone: [facility] Work Phone: 03-22-2006 pneumococcal polysaccharide vaccine, 23 valent Cornell Rizwan AWNING INSTALLER.FELLING MACHINE OPERATOR Work Phone: [facility] Work Phone: Payers Date Payer Category Payer Dual Eligibility Medicare/Medicaid Organization [facility] DUAL ADVANTAGE [id number] 2024 Unknown [id number] 2024 Medicare (Managed Care) 1.2. [id number] 2024 Self-pay [id number] 2023 Private Health Insurance [id number] 2022 Medicare [id number] 2020 Medicaid MEDICAID [facility] MEDICAID [id number] 2020-Present [phone] [address] [place] [address] Medicaid [id number] 2020 Medicaid [id number] 2020 Unknown ANTHEM BLUE CROS S AND BLUE SHIELD ANTHEM MEDIBLUE HMO [id number] 2020-Present [phone] [address] [place] [address] [facility] [id number] .[id number] 2020 Unknown ANTHEM BLUE CROS S AND BLUE SHIELD ANTHEM HARMONYUE HMO [id number] 2020-Present [phone] [address] [place] [address] HMO [id number] .[id number] 2017 Medicaid [id number] 2006 Medicare [id number] 1961 Unknown [id number] 2.16.840.1.034839.3.579.2 .651 1961 Unknown [id number] 2.16.840.1.423550.3.579.2 .627 1961 Unknown [id number] 2.16.840.1.792094.3.579.2 .1245 1961 Unknown [id number] 2.16.840.1.309618.3.579.2 .1245 1961 Unknown [id number] 2.16.840.1.059548.3.579.2 .1245 1961 Unknown [id number] 2.16.840.1.782873.3.579.2 .1245 1961 Unknown [id number] 2.16.840.1.327335.3.579.2 .1245 1961 Unknown [id number] 2.16.840.1.371331.3.579.2 .1245 Unknown [id number] Unknown VA AUTH REQUIR ED SEE NOTE [id number] Unknown [id number] 2.16.840.1.435449.3.579.2 .462 Unknown [id number] 2.16.840.1.103695.3.579.2 .462 Unknown [id number] 2.16.840.1.855546.3.579.2 .462 Unknown [id number] 2.16.840.1.643649.3.579.2 .462 Unknown [id number] 2.16.840.1.882104.3.579.2 .462 Unknown [id number] 2.16.840.1.892773.3.579.2 .462 Unknown [id number] 2.16.840.1.851515.3.579.2 .462 Unknown [id number] 2.16.840.1.275910.3.579.2 .462 Unknown [id number] 2.16.840.1.437355.3.579.2 .462 Unknown [id number] 2.16.840.1.347133.3.579.2 .462 Unknown [id number] 2.16.840.1.473293.3.579.2 .462 Unknown [id number] 2.16.840.1.520138.3.579.2 .462 Unknown [id number] 2.16.840.1.102050.3.579.2 .462 Unknown [id number] 2.16.840.1.175688.3.579.2 .462 Unknown [id number] 2.16.840.1.249723.3.579.2 .462 Unknown [id number] 2.16.840.1.496624.3.579.2 .462 Unknown [id number] 2.16.840.1.948312.3.579.2 .462 Unknown [id number] 2.16.840.1.356268.3.579.2 .462 Unknown [id number] 2.16.840.1.720256.3.579.2 .462 Unknown [id number] 2.16.840.1.605715.3.579.2 .462 Unknown [id number] 2.16840.1.938401.3.579.2 .462 Unknown [id number] 2.16.840.1.017333.3.579.2 .462 Unknown [id number] 2.16840.1.605890.3.579.2 .462 Unknown [id number] 2.16840.1.220923.3.579.2 .462 Unknown [id number] 2.840.1.131202.3.579.2 .462 Unknown [id number] 2.840.1.030677.3.579.2 .462 Unknown [id number] 2.840.1.786772.3.579.2 .462 Unknown [id number] 2.840.1.991014.3.579.2 .462 Unknown [id number] 2.840.1.652363.3.579.2 .462 Unknown [id number] 2.840.1.552677.3.579.2 .462 Unknown [id number] 2.840.1.351357.3.579.2 .462 Unknown [id number] 2.840.1.429606.3.579.2 .462 Unknown [id number] 2.840.1.869747.3.579.2 .462 Unknown [id number] 2.16840.1.163025.3.579.2 .462 Unknown [id number] 2.16840.1.827941.3.579.2 .462 Unknown [id number] 2.16840.1.758517.3.579.2 .462 Unknown [id number] 2.840.1.172360.3.579.2 .462 Unknown [id number] 2.16.840.1.385570.3.579.2 .462 Unknown [id number] 2.16.840.1.790525.3.579.2 .462 Unknown [id number] 2.16.840.1.801772.3.579.2 .462 Unknown [id number] 2.16.840.1.909539.3.579.2 .462 Unknown [id number] 2.16.840.1.308820.3.579.2 .462 Unknown [id number] 2.16.840.1.924625.3.579.2 .462 Unknown [id number] 2.16.840.1.918614.3.579.2 .462 Unknown [id number] 2.16.840.1.072292.3.579.2 .462 Unknown [id number] 2.16.840.1.812521.3.579.2 .462 Unknown [id number] 2.16.840.1.751340.3.579.2 .462 Unknown [id number] 2.16.840.1.225997.3.579.2 .462 Unknown [id number] 2.16.840.1.894291.3.579.2 .462 Unknown [id number] 2.16.840.1.164494.3.579.2 .462 Social History Date Type Detail Facility Start: 09-19-2021 End: 06-02-2024 Tobacco smoking status NHIS Ex-smoker [facility] Start: 09-02-1974 End: 09-02-2023 History of tobacco use Current smoker [facility] Start: 09-02-1974 End: 09-02-2023 History of tobacco use Cigarette Smoker [facility] Start: 09-19-2021 End: 03-17-2024 Cigarettes smoked current (pack per day) - Reported 0.5 [facility] Start: 09-19-2021 Tobacco use and exposure Former smokeless tobacco user [facility] History of tobacco use Chews Tobacco [facility] Start: 09-19-2021 End: 03-19-2025 Alcohol intake Current non-drinker of alcohol (finding) [facility] Start: 06-20-2021 Tobacco Comment less than 1/2 PPD [facility] Start: 1960 Sex Assigned At Male [facility] Start: 11-10-2021 End: 12-18-2024 Exposure to SARS-CoV-2 (event) Not sure [facility] Work Phone: Start: 12-12-2021 End: 09-26-2023 Tobacco smoking status NHIS Unknown if ever smoked [facility] Start: 08-09-2020 None [facility] Start: 08-09-2020 With Family [facility] Start: 06-29-2019 Cigarettes [facility] Start: 09-19-2021 End: 06-02-2024 Tobacco use and exposure User of smokeless tobacco [facility] Tobacco smoking status [facility] Start: 12-17-2022 End: 03-17-2024 Tobacco use panel [facility] Adult Depression Screening Assessment 0 [facility] Start: 07-07-2021 Gender identity Identifies as male gender (finding) [facility] Start: 07-07-2021 Sexual orientation Heterosexual (finding) [facility] Has the uiu, [employer], [employer], or [employer] company threatened to shut off services in your home in past 12Mo No [facility] Are you now , , , , never or living with a partner? [facility] How often do you hav e 6 or more drinks on 1 occasion? Never [facility] Do you feel stress - tense, restless, nervous, or anxious, or unable to sleep at night because your mind is troubled all the time - these days [OSQ] Not at all [facility] (I/We) worried lynda er (my/our) food would run out before (I/we) got money to buy more. Never true [facility] Start: 1960 Sex assigned at Not on file [facility] Work Phone: Medical Equipment Procedure Code Equipment Code Equipment Origin al Text Equipment Identifier Dates EGD, with monitored anesthesia care [id number] FDA Start: 07-22-2024 GLENNA 3GRM HEMOSTAT ABS FDA Start: 07-07-2018 GLENNA 3GRM HEMOSTAT ABS FDA Start: 07-07-2018 GLENNA 3GRM HEMOSTAT ABS FDA Start: 07-07-2018 GLENNA 3GRM HEMOSTAT ABS FDA Start: 07-07-2018 GLENNA 3GRM HEMOSTAT ABS FDA Start: 07-07-2018 GLENNA 3GRM HEMOSTAT ABS FDA Start: 07-07-2018 GLENNA 3GRM HEMOSTAT ABS FDA Start: 07-07-2018 GLENNA 3GRM HEMOSTAT ABS FDA Start: 07-07-2018 GLENNA 3GRM HEMOSTAT ABS FDA Start: 07-07-2018 GLENNA 3GRM HEMOSTAT ABS FDA Start: 07-07-2018 GLENNA 3GRM HEMOSTAT ABS FDA Start: 07-07-2018 GLENNA 3GRM HEMOSTAT ABS FDA Start: 07-07-2018 FDA Start: 07-07-2018 GLENNA 3GRM HEMOSTAT ABS FDA Start: 07-07-2018 GLENNA 3GRM HEMOSTAT ABS FDA Start: 07-07-2018 GLENNA 3GRM HEMOSTAT ABS FDA Start: 07-07-2018 GLENNA 3GRM HEMOSTAT ABS FDA Start: 07-07-2018 Goals Date Patient Goal Desired Activity /State Personal health goal Personal health goal Comment on above: Formatting of this n ote might be different from the original. To breathe better Personal health goal Comment on above: Formatting of this n ote might be different from the original. To breathe better Functional Status Date Assessment Result Facility 03-12-2025 Patient Health Questionnaire 2 item (PHQ-2) [Reported] [facility] Work Phone: 02-26-2025 Patient Health Questionnaire 2 item (PHQ-2) [Reported] [facility] Work Phone: 12-18-2024 Patient Health Questionnaire 2 item (PHQ-2) [Reported] [facility] Work Phone: 10-31-[address] [facility] Work Phone: 09-12-[address] [facility] Work Phone: 06-23-2024 Are you deaf, or do you have serious difficulty hearing No 06/23/2024 1:30 PM Kate Corcoran RN No [facility] 06-23-2024 Are you blind, or do you have serious difficulty seeing, even when wearing glasses No 06/23/2024 1:30 PM Kate Corcoran RN No [facility] 06-23-2024 Do you have serious difficulty walking or climbing stairs Yes 06/23/2024 1:30 PM Kate Corcoran RN Yes [facility] 06-23-2024 Do you have difficul ty dressing or bathing Yes 06/23/2024 1:30 PM Kate Corcoran RN Yes [facility] 06-23-2024 Because of a physica l, mental, or emotional condition, do you have difficulty doing errands alone such as visiting a physician's office or shopping Yes 06/23/2024 1:30 PM Kate Corcoran RN Yes [facility] 12-14-[address] [facility] Work Phone: 12-12-2021 Functional status Up ad reese [facility] Work Phone: 08-31-[address] [facility] Work Phone: Mental Status Date Assessment Result Facility 02-09-2025 Cognitive function Level Of Cons ciousness Follows Commands;Drowsy [facility] Work Phone: 02-09-2025 Cognitive function Voice/Name [facility] Work Phone: 10-31-2024 Cognitive function Voice/Name [facility] Work Phone: 09-12-2024 Cognitive function Voice/Name [facility] Work Phone: 06-23-2024 Because of a physica l, mental, or emotional condition, do you have serious difficulty concentrating, remembering, or making decisions Yes 06/23/2024 1:30 PM Kate Corcoran RN Yes [facility] 11-29-2022 Cognitive function Level Of Cons ciousness Sedated [facility] Work Phone: 11-29-2022 Cognitive function Patient Dean boone Person;Place;Time [facility] Work Phone: 12-14-2021 Cognitive function Voice/Name [facility] Work Phone: 09-15-2021 Cognitive function Level Of Cons ciousness Awake;Alert;Appropriate;Fol lows Commands [facility] Work Phone: 08-31-2021 Cognitive function Voice/Name [facility] Work Phone: Clinical Notes 09-27-2011 to 04-01-2025 Telephone Encounter - Jennifer Parikh LPN - 04/01/2025 3:27 PM EDTTelephone Encounter - Jennifer Parikh LPN - 04/01/2025 3:27 PM EDTAlexey Mayberry MD - 03/19/2025 10:55 AM EDT Note Date & Type Note Facility 04-01-2025 Telephone encounter Note Letter faxed. Jennifer Parikh LPN [facility] 04-01-2025 Miscellaneous Notes Letter faxed. Jennifer Parikh LPN Fax letter please. Ely with [facility] Pre-Admission Dept calling. Pt scheduled to have surgery on 04/14/25. Ely reports she needs written clarification from Dr. Mayberry that patient did stop his course of Eliquis and that there is no instructions or plan for pt to restart it-that course of therapy has been completed. Current med list print-out is not sufficient, per Ely. Please send written note to Ely at FAX #: [phone]. Malena Gilliland RN documented in this encounter [facility] 04-01-2025 Telephone encounter Note Fax letter please. [facility] 04-01-2025 Telephone encounter Note Ely with [facility] Pre-Admission Dept calling. Pt scheduled to have surgery on 04/14/25. Ely reports she needs written clarification from Dr. Mayberry that patient did stop his course of Eliquis and that there is no instructions or plan for pt to restart it-that course of therapy has been completed. Current med list print-out is not sufficient, per Ely. Please send written note to Ely at FAX #: [phone]. Malena Gilliland RN [facility] 03-19-2025 Note HNO ID: [id number] Author: ALEXEY MAYBERRY MD Service: ? Author Type: Physician Type: Progress Notes Filed: 03/19/2025 14:45 Note Text: This note was created using [employer]. Subjective Chio Dent Jr. is a 64 year old male here with significant other. He was ambulating without assistive device. Quadriparesis resolved. Depression was controlled. COPD was stable. Parotid mass was reported benign on needle biopsy. Dr. Bob Rebolledo, ENT at [facility] will excise this, so he is on Augmentin for a few weeks. GI bleeding resolved. EGD done last month showed no findings of concern. PE was treated. He will finish apixiban at this time. [facility] appointment with Dr. Baddour was long in coming. He was doing PT at [facility]. It was suggested he also have OT, ST due to residual functional deficits. Review of Systems Constitutional: Negative for fatigue and fever. Respiratory: Negative for cough, shortness of breath and wheezing. Cardiovascular: Negative for chest pain, palpitations and leg swelling. Gastrointestinal: Negative for abdominal pain and blood in stool. Musculoskeletal: Negative for gait problem. Neurological: Positive for tremors. Negative for dizziness and headaches. Psychiatric/Behavioral: Negative for dysphoric mood. 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 buPROPion SR (WELLBUTRIN SR) 150 mg 12 hr tablet Take 1 tablet by mouth two times a day. apixaban (ELIQUIS) 5 mg tab(s) Take 1 tablet by mouth two times a day. QUEtiapine (SEROQUEL) 25 mg tablet Take 1 tablet by mouth daily at bedtime. furosemide (LASIX) 40 mg tablet Take 1 tablet by mouth once daily. oxybutynin XL (DITROPAN XL) 5 mg 24 hr tablet Take 1 tablet by mouth once daily. acetaminophen 325 mg cap Take 2 capsules by mouth as needed for pain. ipratropium-albuterol (DUONEB) 0.5 mg-3 mg(2.5 mg base)/3 mL nebu Inhale 3 mL as instructed every 6 hours as needed for wheezing/shortness of breath. gabapentin (NEURONTIN) 800 mg tablet Take 1 tablet by mouth three times a day. VA medication. ikjwujqzhro-vnrilbhbn-thvryyic (TRELEGY ELLIPTA) 200-62.5-25 mcg inhalation powder Inhale 1 Puff as instructed once daily. [facility]. pantoprazole DR (PROTONIX) 40 mg tablet Take 1 tablet by mouth two times a day. (Patient taking differently: Take 40 mg by mouth once daily.) triamcinolone acetonide (KENALOG) 0.1 % cream Apply 1 application to affected area once daily as needed. atorvastatin (LIPITOR) 20 mg tablet Take 1 tablet by mouth daily at bedtime. magnesium oxide (MAG-OX) 400 mg (241.3 mg magnesium) tablet Take 1 tablet by mouth once daily. guaiFENesin (MUCINEX) 1,200 mg Ta12 Take 1 tablet by mouth as needed. ketoconazole (NIZORAL) 2 % cream Apply to affected area once daily. albuterol (PROVENTIL) 2.5 mg /3 mL (0.083 %) nebulizer solution Use 3 mL via nebulizer every 4 hours as needed for wheezing/shortness of breath. montelukast (SINGULAIR) 10 mg tablet Take 1 tablet by mouth once daily. No current facility-administered medications for this visit. Objective BP 114/74 (BP Site: Right Arm, BP Position: Sitting, BP Cuff Size: Large Adult) Pulse 74 Temp 36.2 ?C (97.2 ?F) (Temporal) Resp 14 Ht 165.1 cm (5' 5) Wt 72.5 kg (159 lb 13.3 oz) SpO2 97% BMI 26.60 kg/m? Physical Exam Constitutional: General: He is not in acute distress. HENT: Head: Atraumatic. Eyes: Conjunctiva/sclera: Conjunctivae normal. Cardiovascular: Rate and Rhythm: Normal rate and regular rhythm. Heart sounds: No murmur heard. No gallop. Pulmonary: Effort: No respiratory distress. Breath sounds: No wheezing or rales. Abdominal: Palpations: Abdomen is soft. Tenderness: There is no abdominal tenderness. Musculoskeletal: Right lower l (more content not included)... [facility] 03-19-2025 History of Presen t illness Narrative This note was created using NoteWriter. Subjective Chio Dent Jr. is a 64 year old male here with significant other. He was ambulating without assistive device. Quadriparesis resolved. Depression was controlled. COPD was stable. Parotid mass was reported benign on needle biopsy. Dr. Bob Rebolledo, ENT at [facility] will excise this, so he is on Augmentin for a few weeks. GI bleeding resolved. EGD done last month showed no findings of concern. PE was treated. He will finish apixiban at this time. He scheduled with neurology in the [place], as neurology appointment with Dr. Hartman was long in coming. He was doing PT at [facility]. It was suggested he also have OT, ST due to residual functional deficits. Review of Systems Constitutional: Negative for fatigue and fever. Respiratory: Negative for cough, shortness of breath and wheezing. Cardiovascular: Negative for chest pain, palpitations and leg swelling. Gastrointestinal: Negative for abdominal pain and blood in stool. Musculoskeletal: Negative for gait problem. Neurological: Positive for tremors. Negative for dizziness and headaches. Psychiatric/Behavioral: Negative for dysphoric mood. 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 buPROPion SR (WELLBUTRIN SR) 150 mg 12 hr tablet Take 1 tablet by mouth two times a day. apixaban (ELIQUIS) 5 mg tab(s) Take 1 tablet by mouth two times a day. QUEtiapine (SEROQUEL) 25 mg tablet Take 1 tablet by mouth daily at bedtime. furosemide (LASIX) 40 mg tablet Take 1 tablet by mouth once daily. oxybutynin XL (DITROPAN XL) 5 mg 24 hr tablet Take 1 tablet by mouth once daily. acetaminophen 325 mg cap Take 2 capsules by mouth as needed for pain. ipratropium-albuterol (DUONEB) 0.5 mg-3 mg(2.5 mg base)/3 mL nebu Inhale 3 mL as instructed every 6 hours as needed for wheezing/shortness of breath. gabapentin (NEURONTIN) 800 mg tablet Take 1 tablet by mouth three times a day. VA medication. ehlwnmcxrmu-jnzlvabwh-ekppxxna (TRELEGY ELLIPTA) 200-62.5-25 mcg inhalation powder Inhale 1 Puff as instructed once daily. [facility]. pantoprazole DR (PROTONIX) 40 mg tablet Take 1 tablet by mouth two times a day. (Patient taking differently: Take 40 mg by mouth once daily.) triamcinolone acetonide (KENALOG) 0.1 % cream Apply 1 application to affected area once daily as needed. atorvastatin (LIPITOR) 20 mg tablet Take 1 tablet by mouth daily at bedtime. magnesium oxide (MAG-OX) 400 mg (241.3 mg magnesium) tablet Take 1 tablet by mouth once daily. guaiFENesin (MUCINEX) 1,200 mg Ta12 Take 1 tablet by mouth as needed. ketoconazole (NIZORAL) 2 % cream Apply to affected area once daily. albuterol (PROVENTIL) 2.5 mg /3 mL (0.083 %) nebulizer solution Use 3 mL via nebulizer every 4 hours as needed for wheezing/shortness of breath. montelukast (SINGULAIR) 10 mg tablet Take 1 tablet by mouth once daily. No current facility-administered medications for this visit. Objective BP 114/74 (BP Site: Right Arm, BP Position: Sitting, BP Cuff Size: Large Adult) Pulse 74 Temp 36.2 C (97.2 F) (Temporal) Resp 14 Ht 165.1 cm (5' 5) Wt 72.5 kg (159 lb 13.3 oz) SpO2 97% BMI 26.60 kg/m Physical Exam Constitutional: General: He is not in acute distress. HENT: Head: Atraumatic. Eyes: Conjunctiva/sclera: Conjunctivae normal. Cardiovascular: Rate and Rhythm: Normal rate and regular rhythm. Heart sounds: No murmur heard. No gallop. Pulmonary: Effort: No respiratory distress. Breath sounds: No wheezing or rales. Abdominal: Palpations: Abdomen is soft. Tenderness: There is no abdominal tenderness. Musculoskeletal: Right lower leg: No edema. Left lower leg: No edema. Neurological: General: No focal deficit present. Mental Status: He is alert. Mental status is at baseline. Motor: No weakness. Gait: Gait normal. Psychiatric: Attention and Perception: He is inattentive. Mood and Affect: Affect is flat. Speech: Speech is delayed. Behavior: Behavior is cooperative. Cognition and Memory: Cognition is impaired. Assessment and Plan 1. 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 Primary hypertension - ICD9: 401.9, ICD10: I10 - Controlled - Continue current medications 3. COPD exacerbation (HCC) - ICD9: 491.21, ICD10: J44.1 - Symptoms controlled - Continue current medications 4. Mass of right parotid gland - ICD9: 527.8, ICD10: K11.8 - Biopsied, benign. Excision planned next month. 5. Gastrointestinal hemorrhage, unspecified gastrointestinal hemorrhage type - ICD9: 578.9, ICD10: K92.2 Resolved. GI reduced dose to once daily for GERD. - PANTOPRAZOLE 40 MG TABLET,DELAYED RELEASE 6. Multiple subsegmental pulmonary emboli without acute cor pulmonale (HCC) - ICD9: 415.19, ICD10: I26.94 - Treated. Finish apixiban and discontinue. Alexey Mayberry MD documented in this encounter [facility] 03-12-2025 History of Presen t illness Narrative History of Present Illness Chio Dent Jr. was seen in December 2024 at the request of Dr. Shemar Figueroa for the management of a right neck\parotid mass. This patient had some imaging done for another reason and this lump was discovered. I personally reviewed that scan and it shows this small mass in the area of the right parotid. I needled it in the past but the biopsy was not diagnostic. He comes back today and the mass is bigger and it is also tender. It was rebiopsied and came back as reactive squamous cells consistent with an inflamed cyst. The patient has had some drainage from the area and also some discomfort. Physical Exam Palpation of the parotid, neck, and thyroid field is negative except for this right retromandibular nodularity that is most likely on the parotid. The area has a little reddish opening. On pressure over the area I extracted a fair amount of debris. A Band-Aid was put over the area. Assessment and Plan Right preauricular mass. This mass looks like a squamous cell lined cyst which is most likely benign. I will put him back on antibiotic and set him up for surgical removal. I will see him at the time of the surgery. documented in this encounter [facility] Work Phone: 02-26-2025 History of Presen t illness Narrative History of Present Illness Chio Dent was seen in December 2024 at the request of Dr. Shemar Figueroa for the management of a right neck\parotid mass. This patient had some imaging done for another reason and this lump was discovered. I personally reviewed that scan and it shows this small mass in the area of the right parotid. I needled it in the past but the biopsy was not diagnostic. He comes back today and the mass is bigger and it is also tender. Physical Exam Palpation of the parotid, neck, and thyroid field is negative except for this right retromandibular nodularity that is most likely on the parotid. It is definitely larger today and the overlying skin is somewhat attached to this mass. It is also reddish and also tender. After verbal consent under Exactacain 1% to 100,000 epinephrine 4 passes were made with a 22-gauge needle. This was well-tolerated. On the first pass we had a few drops of fluid opaque fluid that was aspirated. I ended up doing it 3 more times and there was a lot of material seen in the CytoLyt. Assessment and Plan Right parotid mass. I repeated the needle aspirate today. There was some definite inflammation and we put him on Augmentin for 10 days. I will call him when I get the results of the needle aspirate. Regardless we may have to think about surgical excision. At the same time I do believe that this is benign. The patient was asked to make an appointment in 1 month. documented in this encounter [facility] Work Phone: 02-18-2025 Telephone encounter Note Seroquel 25mg refilled 02/05/2025. Patient has been identified by name and date of : Yes Patient phones for refill(s): Requested Prescriptions Pending Prescriptions Disp Refills buPROPion SR (WELLBUTRIN SR) 150 mg 12 hr tablet 60 tablet 2 Sig: Take 1 tablet by mouth two times a day. apixaban (ELIQUIS) 5 mg tab(s) 60 tablet 2 Sig: Take 1 tablet by mouth two times a day. Date of last office visit in primary care: 02/05/2025 Date of next office visit in primary care: 03/19/2025 Please advise. Thank you. Jennifer Parikh LPN. [facility] 02-18-2025 Miscellaneous Notes Seroquel 25mg refilled 02/05/2025. Patient has been identified by name and date of : Yes Patient phones for refill(s): Requested Prescriptions Pending Prescriptions Disp Refills buPROPion SR (WELLBUTRIN SR) 150 mg 12 hr tablet 60 tablet 2 Sig: Take 1 tablet by mouth two times a day. apixaban (ELIQUIS) 5 mg tab(s) 60 tablet 2 Sig: Take 1 tablet by mouth two times a day. Date of last office visit in primary care: 02/05/2025 Date of next office visit in primary care: 03/19/2025 Please advise. Thank you. Jennifer Parikh LPN. Prescription Refill Information The patient has been identified by name and date of : Yes Caregiver verified no other encounters exist for this prescription request: Yes Caregiver confirmed with patient/requestor that no other refills are due, in the near future, with this provider at this time: Yes The last office visit in the department: 02-05-25 Does the patient have a future office visit with this provider/department: Yes Requested Prescriptions Pending Prescriptions Disp Refills QUEtiapine (SEROQUEL) 25 mg tablet 30 tablet 2 Sig: Take 1 tablet by mouth daily at bedtime. buPROPion SR (WELLBUTRIN SR) 150 mg 12 hr tablet 60 tablet 2 Sig: Take 1 tablet by mouth two times a day. apixaban (ELIQUIS) 5 mg tab(s) 60 tablet 2 Sig: Take 1 tablet by mouth two times a day. Erica Shannon February 18, 2025 9:55 AM documented in this encounter [facility] 02-18-2025 Telephone encounter Note Prescription Refill Information The patient has been identified by name and date of : Yes Caregiver verified no other encounters exist for this prescription request: Yes Caregiver confirmed with patient/requestor that no other refills are due, in the near future, with this provider at this time: Yes The last office visit in the department: 02-05-25 Does the patient have a future office visit with this provider/department: Yes Requested Prescriptions Pending Prescriptions Disp Refills QUEtiapine (SEROQUEL) 25 mg tablet 30 tablet 2 Sig: Take 1 tablet by mouth daily at bedtime. buPROPion SR (WELLBUTRIN SR) 150 mg 12 hr tablet 60 tablet 2 Sig: Take 1 tablet by mouth two times a day. apixaban (ELIQUIS) 5 mg tab(s) 60 tablet 2 Sig: Take 1 tablet by mouth two times a day. Erica Shannon February 18, 2025 9:55 AM [facility] 02-10-2025 Telephone encounter Note Order faxed to TinitellMinerva Parikh LPN [facility] 02-10-2025 Miscellaneous Notes Order faxed to FanBoomsylvia Parikh LPN ASSESSMENT/PLAN: 1. Quadriparesis (HCC) - ICD9: 344.00, ICD10: G82.50 (primary diagnosis) - CONSULT TO PHYSICAL THERAPY 2. 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 Home Health is recommending that patient have outpatient therapy at [facility] for physical therapy, occupational, and speech therapy. Patient is agreeable to this. Please place orders and fax to [facility] No call back needed. Lola Scott RN ' documented in this encounter [facility] 02-10-2025 Telephone encounter Note ASSESSMENT/PLAN: 1. Quadriparesis (HCC) - ICD9: 344.00, ICD10: G82.50 (primary diagnosis) - CONSULT TO PHYSICAL THERAPY 2. 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 Home Health is recommending that patient have outpatient therapy at [facility] for physical therapy, occupational, and speech therapy. Patient is agreeable to this. Please place orders and fax to [facility] No call back needed. Lola Scott RN ' [facility] 02-09-2025 Procedure note [facility] 02-09-2025 Procedure note [facility] 02-09-2025 Consult note Note Date/Time February 09, 2025 1:16pm [facility] Medical Records Department [address] [place] [id number] Pre-Anesthesia Evaluation 02/09/25 1316 MR#: [id number] Acct: [id number] Name: CHIO DENT JrMinerva Rep #:[id number] : 1960 64 From: Bobby Han MD PCP: Dr. Alexey Mayberry MD Status:R EG [facility] Y Race: C Location: [place] [address] ASA Classification* ASA Classification ASA Classification: 3 Assessment & Plan Anesthesia* Anesthesia Assessment Anesthesia Assessment: Discussed sedation and/or anesthesia options, risks, benefits, and alternatives with patient/parents/legal guardian/POA. Questions invited. The patient/parents/legal guardian/POA seems to understand and agrees to proceedwith anesthesia plan. Reviewed the physical assessment, medical history, allergy history and patient home medications list prior to surgery/procedure/anesthetic and documented any changes. Performed airway and anesthesia risk assessments. Anesthesia Type Anesthesia Type: MAC Anesthesia Focused Assessment* Temperature: 97.6 F Pulse Rate: 80 Blood Pressure: 131/86 Respiratory Rate: 18 Pulse Ox: 97 Airway Assessment Mouth opens: >3 cm Mallampati Score: II Labs Anesthesia Preop lab: CBC WBC 6.9 K/mm3 (4.4-11.0) 10/31/24 05:58 10/31/24 RBC 3.80 M/mm3 (4.6-6.2) L 10/31/24 05:58 10/31/24 Hgb 10.6 g/dL (13.0-16.5) L 10/31/24 05:58 5 Hct 32.6 % (40-54) L 10/31/24 05:58 10/31/24 Plt Count 295 K/mm3 (150-450) 10/31/24 05:58 10/31/24 CHEMISTRY Potassium 3.4 mmol/L (3.3-5.1) 10/30/24 06:12 10/30/24 Sodium 138 mmol/L (133-145) 10/30/24 06:12 10/30/24 Magnesium 1.7 mg/dL (1.6-2.6) 09/11/24 14:55 09/11/24 Phosphorus 3.8 mg/dL (2.5-4.9) 09/11/24 14:55 09/11/24 BUN 10 mg/dL (4-19) 10/30/24 06:12 10/30/24 Creatinine 0.66 mg/dL (0.70-1.20) L 10/30/24 06:12 Glucose 97 mg/dL (70-99) 10/30/24 06:12 10/30/24 POC Glucose 122 mg/dL (74-106) H 08/03/24 06:25 08/03/24 TSH 0.44 uIU/mL (0.358-3.74) 12/07/14 07:30 COAG PT 15.3 SECONDS (11.7-14.9) H 10/30/24 06:12 10/04 04/26 Pre-Assessment Diagnosis/Proposed Procedure Planned Operative Procedure(s): EGD Anesthesia History 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 When Was Last Pacemaker Check QUESTION #4 FULL TEXT: You/Your Family Experience fever (hyperthermia) with Anesthesia Last Oral Intake Last Oral intake: Last Oral Intake NPO since Meds taken in AM with sips of water? 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 programmer Female No 02/05/25 14:05 HX of Motion Sickness No 02/05/25 14:05 HX of N/V After Surgery No 02/05/25 14:05 Non-Smoker Yes 02/05/25 14:05 Duration of Surgery greater No 02/05/25 14:05 than 60 minutes Number of Risk Factors 1 02/05/25 14:05 PONV Score Low Risk 02/05/25 14:05 Height & Weight Height & Weight: Anesthesia: Height & Weight Height 5 ft 8 in 02/09/25 12:50 Weight: 71.4 kg 02/09/25 12:50 Body Mass Index (BMI) 23.9 02/09/25 12:50 Respiratory Assessment Respiratory Assessment - cnc programmer: Respiratory Tract Infection Hx - cnc programmer Hx Respiratory Tract Infection No 02/05/25 14:05 STOP Sleep Apnea STOP Sleep Apnea - cnc programmer: STOP Sleep Apnea - cnc programmer Hx Hypertension Yes: NO MEDS AT THIS TIME 02/05/25 14:05 Hx Sleep Apnea No 02/05/25 14:05 CPAP Yes 09/11/24 15:50 BIPAP No 09/11/24 15:50 Do you snore loudly (louder No 02/05/25 14:05 than talking or can be heard Do you often feel tired/ No 02/05/25 14:05 fatigued/ sleepy during daytime? Has anyone observed you stop No 02/05/25 14:05 breathing during sleep? STOP Results Negative 02/05/25 14:05 QUESTION #5 FULL TEXT : Do you snore loudly (louder than talking or can be heard through closed doors)? Tobacco Use History Tobacco Use History - cnc programmer: Tobacco Use History - cnc programmer Tobacco Use Smoking Status Former smoker 02/05/25 14:05 Hx Tobacco Use Yes 02/05/25 14:05 Years Smoking Packs Smoked per Day Smoking Cessation Date was Yes - quit smoking within 15 02/05/25 14:05 within the last 15 years years Hx Smoking Cessation Date 06/13/24 02/05/25 14:05 Hx Smoking Cessation No 02/05/25 14:05 Counseling Hematologic Medial History Hematologic Hx - cnc programmer: Hematologic Medical Hx - vision specialist Hx of Blood Transfusion No 02/05/25 14:05 Hx of Transfusion in last 3 No 02/05/25 14:05 Months Date of Last Transfusion (if within last 3 months) Ever experience any problems No 02/05/25 14:05 with transfusion(s)? Specify any problems Hx of Preganancy in last 3 N/A 02/05/25 14:05 Months Nurse Filling Out Transfusion JZOLLINGE 02/05/25 14:05 & Questions: Date: 02/05/25 02/05/25 14:05 Time: 14:06 02/05/25 14:05 Patient unable to answer at this time (ie. confused, unrespo /Reproduction History /Reproductive History - cnc programmer: /Reproductive Hx- cnc programmer Hx Now No 02/05/25 14:05 Gestational Age (in weeks): EDC: Hx Hx Para Hx Section SAB No 02/05/25 14:05 Active Medications Active Medications: Current Medications Generic Name Dose Route Start Last Admin Trade Name Freq PRN Reason Stop Dose Admin Lactated Ringer's 1,000 mls @ 15 mls/hr 02/09/25 12:30 02/09/25 12:54 IV 15 mls/hr .Q48H LAYLA Administration PFSH Medical History Easy bruising History of GI bleed MRSA (methicillin resistant staph aureus) culture positive Chronic neuropathic pain Former smoker Myocardial infarct Pneumonia Tracheostomy in place Foraminal stenosis of cervical region Cervical spondylosis Ribs, multiple fractures Respiratory arrest before cardiac arrest Wears dentures Wears glasses Arthritis History of hiatal hernia Gastric reflux Sleep apnea Hypertension History of echocardiogram History of stress test Cardiology follow-up encounter History of heart attack GERD (gastroesophageal reflux disease) Dysphagia Hypersomnia Bronchiectasis Asthma-COPD overlap syndrome BPH (benign prostatic hyperplasia) Paroxysmal atrial tachycardia Paroxysmal ventricular tachycardia Premature ventricular contraction HCAP (healthcare-associated pneumonia) Atherosclerotic heart disease of [place] coronary artery without angina pectoris Ischemic cardiomyopathy HLD (hyperlipidemia) History of pulmonary embolism Home Medications ?Medication ?Instructions ?Recorded ?Last Taken ?Type gabapentin 400 mg capsule 800 mg (2 x 400 mg) PO TID # 1 cap 08/10/24 02/09/25 08:30 Rx bupropion HCl 150 mg 24 hr tablet, 150 mg PO BID 08/1602/09/25 08:30 History extended release albuterol sulfate 2.5 mg/3 mL 2.5 mg inhalation Q4H NE N PRN 09/11/24 Unknown History (0.083 %) solution for nebulization wheezing furosemide 40 mg tablet (Lasix) 40 mg PO DAILY 5 Unknown History ipratropium 0.5 mg-albuterol 3 mg 3 ml inhalation Q6H PRN PRN dyspnea 09/11/24 Unknown History (2.5 mg base)/3 mL nebulization soln apixaban 5 mg tablet (Eliquis) 5 mg PO BID #1 TAB 09/0202/05/25 Rx ketoconazole 2 % topical cream 1 applic topical BID Unknown History quetiapine 25 mg tablet 25 mg PO QHS 10/06/24 Unknow n History guaifenesin 1,200 mg tablet, 1,200 mg PO TID PRN conge stion 10/20/24 Unknown History extended release 12 hr (Mucinex) fluticasone fur. 200 mcg-umeclid 1 inh inhalation Q24H #60 ea 11/09/24 Unknown Rx 62.5 mcg-vilant 25 mcg inhalat.powder (Trelegy Ellipta) pantoprazole 40 mg tablet,delayed 40 mg PO BID 30 days #60 tabs 11/19/24 02/09/25 08:30 Rx release (Protonix) triamcinolone acetonide 0.1 % 1 applic topical .QD Unknown History topical cream fluticasone propionate 50 2 spray intranasal QDAY #16 grams 02/01/25 Unknown Rx mcg/actuation nasal spray,suspension atorvastatin 20 mg tablet 20 mg PO QHS 02/05/25 Unknow n History cyanocobalamin (vitamin B-12) 1,000 mcg PO DAILY 02/05 Unknown History 1,000 mcg capsule montelukast 10 mg tablet 10 mg PO DAILY 02/05/25 Unkn own History Allergy/AdvReac Type Severity Reaction Status Date / Time latex Allergy Rash Verified 02/09/25 12:48 varenicline tartrate (From Allergy Hives Verified 02/09/25 12:48 Chantix) aspirin AdvReac Upset Verified 02/09/25 12:48 Stomach Family History Father , age 50 CAD (coronary artery disease) Heart disease Myocardial infarction Mother Diabetes Brother Hypertension Surgical History S/P percutaneous endoscopic gastrostomy (PEG) tube placement History of tracheostomy History of chest tube placement Hx of carpal tunnel repair Hx of angioplasty History of cardiac catheterization History of coronary artery stent placement Hx of shoulder surgery Hx of sinus surgery Hx of nasal sinusotomy Hx of cystoscopy Hx of tonsillectomy History of thumb surgery Hx of right knee surgery Presence of coronary angioplasty implant and graft (~06/27/08) History of hernia repair Social History household members: significant other and children Smoking Status: Former smoker alcohol intake: never substance use type: does not use caffeine: Yes Type: coffee Number of servings: 3 what type of physical activity do you participate in: walking frequency: daily duration: 45-60 minutes/day seatbelt use: always do you feel safe at home: Yes Review of Systems (Anesthesia) ROS Narrative System reviewed and no additional complaints, except as documented. 02/09/25 1316 <Electronically signed by Bobby Han MD > Date _ Bobby Han MD Cosigner Signature: Date CC: ~ Signed [facility] Work Phone: [phone] 717-690206-10-2025 History and physical note [facility] Medical Records Department [address] [place] [address] History & Physical Exam 02/09/25 1500 MR#: [id number] Acct: [id number] Name: CHIO DENT Jr. Rep #:[id number] : 1960 64 From: David Jackson DO PCP: Dr. Alexey Mayberry MD Status:R EG [facility] Location: [place] [address] HPI - General General Date of Admission: 02/09/25 Date of Service: 02/09/25 Chief Complaint: Gastric ulcer surveillance HPI Narrative CHIO DENT, is a 64 M who presents for surveillance of gastric ulcers EGD 10/30/2024 - LA Grade D non-erosive esophagitis with bleeding. Treated with a heater probe. - Oozing gastric ulcers with pigmented material. Treated with a heater probe. - Intact gastrostomy with a patent G-tube present characterized by healthy appearing mucosa. - Erythematous duodenopathy. - The PEG was cut externally, grasped, and removed with the scope because it was no longer necessary. - No specimens collected. - seen in the office today with his - he is back on apixiban - denies taking any NSAIDS - he reports he was on Omeprazole because he did not tolerate famotidine due to breakthrough HB - denies any N/V - denies any melena - denies any abdominal pain - denies any weight loss - occasional soft stools, typically has 2-3 BM daily - denies any urgency - he is drinking 4 cups of coffee daily - he quit smoking - denies any alcohol PFSH Medical History Easy bruising History of GI bleed MRSA (methicillin resistant staph aureus) culture positive Chronic neuropathic pain Former smoker Myocardial infarct Pneumonia Tracheostomy in place Foraminal stenosis of cervical region Cervical spondylosis Ribs, multiple fractures Respiratory arrest before cardiac arrest Wears dentures Wears glasses Arthritis History of hiatal hernia Gastric reflux Sleep apnea Hypertension History of echocardiogram History of stress test Cardiology follow-up encounter History of heart attack GERD (gastroesophageal reflux disease) Dysphagia Hypersomnia Bronchiectasis Asthma-COPD overlap syndrome BPH (benign prostatic hyperplasia) Paroxysmal atrial tachycardia Paroxysmal ventricular tachycardia Premature ventricular contraction HCAP (healthcare-associated pneumonia) Atherosclerotic heart disease of [place] coronary artery without angina pectoris Ischemic cardiomyopathy HLD (hyperlipidemia) History of pulmonary embolism Home Medications ?Medication ?Instructions ?Recorded ?Last Taken ?Type gabapentin 400 mg capsule 800 mg (2 x 400 mg) PO TID # 1 cap 08/10/24 02/09/25 08:30 Rx bupropion HCl 150 mg 24 hr tablet, 150 mg PO BID 08/1602/09/25 08:30 History extended release albuterol sulfate 2.5 mg/3 mL 2.5 mg inhalation Q4H NE N PRN 09/11/24 Unknown History (0.083 %) solution for nebulization wheezing furosemide 40 mg tablet (Lasix) 40 mg PO DAILY 5 Unknown History ipratropium 0.5 mg-albuterol 3 mg 3 ml inhalation Q6H PRN PRN dyspnea 09/11/24 Unknown History (2.5 mg base)/3 mL nebulization soln apixaban 5 mg tablet (Eliquis) 5 mg PO BID #1 TAB 09/0202/05/25 Rx ketoconazole 2 % topical cream 1 applic topical BID Unknown History quetiapine 25 mg tablet 25 mg PO QHS 10/06/24 Unknow n History guaifenesin 1,200 mg tablet, 1,200 mg PO TID PRN conge stion 10/20/24 Unknown History extended release 12 hr (Mucinex) fluticasone fur. 200 mcg-umeclid 1 inh inhalation Q24H #60 ea 11/09/24 Unknown Rx 62.5 mcg-vilant 25 mcg inhalat.powder (Trelegy Ellipta) pantoprazole 40 mg tablet,delayed 40 mg PO BID 30 days #60 tabs 11/19/24 02/09/25 08:30 Rx release (Protonix) triamcinolone acetonide 0.1 % 1 applic topical .QD Unknown History topical cream fluticasone propionate 50 2 spray intranasal QDAY #16 grams 02/01/25 Unknown Rx mcg/actuation nasal spray,suspension atorvastatin 20 mg tablet 20 mg PO QHS 02/05/25 Unknow n History cyanocobalamin (vitamin B-12) 1,000 mcg PO DAILY 02/05 Unknown History 1,000 mcg capsule montelukast 10 mg tablet 10 mg PO DAILY 02/05/25 Unkn own History Allergy/AdvReac Type Severity Reaction Status Date / Time latex Allergy Rash Verified 02/09/25 12:48 varenicline tartrate (From Allergy Hives Verified 02/09/25 12:48 Chantix) aspirin AdvReac Upset Verified 02/09/25 12:48 Stomach Family History Father , age 50 CAD (coronary artery disease) Heart disease Myocardial infarction Mother Diabetes Brother Hypertension Surgical History S/P percutaneous endoscopic gastrostomy (PEG) tube placement History of tracheostomy History of chest tube placement Hx of carpal tunnel repair Hx of angioplasty History of cardiac catheterization History of coronary artery stent placement Hx of shoulder surgery Hx of sinus surgery Hx of nasal sinusotomy Hx of cystoscopy Hx of tonsillectomy History of thumb surgery Hx of right knee surgery Presence of coronary angioplasty implant and graft (~06/27/08) History of hernia repair Social History household members: significant other and children Smoking Status: Former smoker alcohol intake: never substance use type: does not use caffeine: Yes Type: coffee Number of servings: 3 what type of physical activity do you participate in: walking frequency: daily duration: 45-60 minutes/day seatbelt use: always do you feel safe at home: Yes ROS Constitutional Constitutional: Denies fatigue, fever(s), poor appetite, weight gain or weight loss Gastrointestinal Gastrointestinal: Denies belching, bloating, change in bowel habits, change in stool character, chewing difficulty, coffee ground emesis, constipation, cramping, diarrhea, dyspepsia, dysphagia, earlysatiety, excessive flatus, fecalincontinence, heartburn, hematemesis, hematochezia, hemorrhoids, loose stools, melena, nausea, odynophagia, rectal bleeding, tenesmus, vomiting or weight changes Vital Signs Vital Signs Vital Signs: 02/09/25 12:50 02/09/25 12:50 02/09/25 13:16 Temperature 97.6 F L 97.6 F L Temperature Source Temporal Pulse Rate 80 80 Respiratory Rate 18 18 Respiratory Pattern Normal Blood Pressure 131/86 H 131/86 H Blood Pressure Mean 101 Blood Pressure Source Monitor Blood Pressure Position Sitting Blood Pressure Location Left Arm Pulse Ox 97 97 Oxygen Delivery Method Room Air Weight Weight: 157 lb 6.561 oz Body Mass Index (BMI) 23.9 Physical Exam Const alert, oriented x3, no apparent distress and healthy appearing General Appearance: cooperative GI normal to inspection, nondistended, normoactive bowel sounds, soft to palpation,non-tender and non-distended Percussion: normal to percussion Rectal Exam: deferred Assessment & Plan Assessment/Plan (1) Acute upper GI bleeding: (2) Gastric ulcer: QUALIFIERS: Gastric ulcer chronicity: acute Gastric ulcer complication status: with hemorrhage Qualified Code(s): K25.0 - Acute gastric ulcer with hemorrhage PLAN: Assessment and Plan Assessment and Plan (1) Gastric ulcer: Status: Acute Qualifiers: Gastric ulcer complication status: with hemorrhage Gastric ulcer chronicity: acute Qualified Code(s): K25.0 - Acute gastric ulcer with hemorrhage (2) Esophagitis determined by endoscopy: Status: Acute Medications: Refilled pantoprazole (Protonix) 40 mg PO BID 30 days 60 tabs 2RF Plan 64y/o male was admitted 10/28/2024 with vomiting black material and Gastroccult positive. He was admitted and EGD performed which revealed Grade D erosive esophagitis and oozing gastric ulcers. G -tube was removed. He was started on pantoprazole 40mg BID and famotidine was discontinued. He resumed apixiban on 11/07/2024. He denies any recurrent episodes of hematemesis and denies any melena. I have recommended he decrease his daily caffeine intake, continue PPI twice daily and we will plan to repeat EGD in 12 to 16 weeks. Patient Instructions: Go to ED with any recurrent bleeding 02/09/25 1502 Cosigner Signature (if applicable): CC: Dr. Alexey Mayberry MD; David Friend, DO~ Signed [facility]06-10-2025 [facility]06-10-2025 Consult note [facility] Medical Records Department [address] [place] [address] Pre-Anesthesia Evaluation 02/09/25 1316 MR#: [id number] Acct: [id number] Name: CHIO DENT Jr. Rep #:[id number] : 1960 64 From: Bobby Han MD PCP: Dr. Alexey Mayberry MD Status:R EG [facility] Y Race: C Location: [place] [address] ASA Classification* ASA Classification ASA Classification: 3 Assessment & Plan Anesthesia* Anesthesia Assessment Anesthesia Assessment: Discussed sedation and/or anesthesia options, risks, benefits, and alternatives with patient/parents/legal guardian/POA. Questions invited. The patient/parents/legal guardian/POA seems to understand and agrees to proceedwith anesthesia plan. Reviewed the physical assessment, medical history, allergy history and patient home medications list prior to surgery/procedure/anesthetic and documented any changes. Performed airway and anesthesia risk assessments. Anesthesia Type Anesthesia Type: MAC Anesthesia Focused Assessment* Temperature: 97.6 F Pulse Rate: 80 Blood Pressure: 131/86 Respiratory Rate: 18 Pulse Ox: 97 Airway Assessment Mouth opens: >3 cm Mallampati Score: II Labs Anesthesia Preop lab: CBC WBC 6.9 K/mm3 (4.4-11.0) 10/31/24 05:58 10/31/24 RBC 3.80 M/mm3 (4.6-6.2) L 10/31/24 05:58 10/31/24 Hgb 10.6 g/dL (13.0-16.5) L 10/31/24 05:58 5 Hct 32.6 % (40-54) L 10/31/24 05:58 10/31/24 Plt Count 295 K/mm3 (150-450) 10/31/24 05:58 10/31/24 CHEMISTRY Potassium 3.4 mmol/L (3.3-5.1) 10/30/24 06:12 10/30/24 Sodium 138 mmol/L (133-145) 10/30/24 06:12 10/30/24 Magnesium 1.7 mg/dL (1.6-2.6) 09/11/24 14:55 09/11/24 Phosphorus 3.8 mg/dL (2.5-4.9) 09/11/24 14:55 09/11/24 BUN 10 mg/dL (4-19) 10/30/24 06:12 10/30/24 Creatinine 0.66 mg/dL (0.70-1.20) L 10/30/24 06:12 Glucose 97 mg/dL (70-99) 10/30/24 06:12 10/30/24 POC Glucose 122 mg/dL (74-106) H 08/03/24 06:25 08/03/24 TSH 0.44 uIU/mL (0.358-3.74) 12/07/14 07:30 COAG PT 15.3 SECONDS (11.7-14.9) H 10/30/24 06:12 10/04 04/26 Pre-Assessment Diagnosis/Proposed Procedure Planned Operative Procedure(s): EGD Anesthesia History 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 When Was Last Pacemaker Check QUESTION #4 FULL TEXT: You/Your Family Experience fever (hyperthermia) with Anesthesia Last Oral Intake Last Oral intake: Last Oral Intake NPO since Meds taken in AM with sips of water? 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 programmer Female No 02/05/25 14:05 HX of Motion Sickness No 02/05/25 14:05 HX of N/V After Surgery No 02/05/25 14:05 Non-Smoker Yes 02/05/25 14:05 Duration of Surgery greater No 02/05/25 14:05 than 60 minutes Number of Risk Factors 1 02/05/25 14:05 PONV Score Low Risk 02/05/25 14:05 Height & Weight Height & Weight: Anesthesia: Height & Weight Height 5 ft 8 in 02/09/25 12:50 Weight: 71.4 kg 02/09/25 12:50 Body Mass Index (BMI) 23.9 02/09/25 12:50 Respiratory Assessment Respiratory Assessment - cnc programmer: Respiratory Tract Infection Hx - cnc programmer Hx Respiratory Tract Infection No 02/05/25 14:05 STOP Sleep Apnea STOP Sleep Apnea - cnc programmer: STOP Sleep Apnea - cnc programmer Hx Hypertension Yes: NO MEDS AT THIS TIME 02/05/25 14:05 Hx Sleep Apnea No 02/05/25 14:05 CPAP Yes 09/11/24 15:50 BIPAP No 09/11/24 15:50 Do you snore loudly (louder No 02/05/25 14:05 than talking or can be heard Do you often feel tired/ No 02/05/25 14:05 fatigued/ sleepy during daytime? Has anyone observed you stop No 02/05/25 14:05 breathing during sleep? STOP Results Negative 02/05/25 14:05 QUESTION #5 FULL TEXT : Do you snore loudly (louder than talking or can be heard through closeddoors)? Tobacco Use History Tobacco Use History - cnc programmer: Tobacco Use History - cnc programmer Tobacco Use Smoking Status Former smoker 02/05/25 14:05 Hx Tobacco Use Yes 02/05/25 14:05 Years Smoking Packs Smoked per Day Smoking Cessation Date was Yes - quit smoking within 15 02/05/25 14:05 within the last 15 years years Hx Smoking Cessation Date 06/13/24 02/05/25 14:05 Hx Smoking Cessation No 02/05/25 14:05 Counseling Hematologic Medial History Hematologic Hx - cnc programmer: Hematologic Medical Hx - vision specialist Hx of Blood Transfusion No 02/05/25 14:05 Hx of Transfusion in last 3 No 02/05/25 14:05 Months Date of Last Transfusion (if within last 3 months) Ever experience any problems No 02/05/25 14:05 with transfusion(s)? Specify any problems Hx of Preganancy in last 3 N/A 02/05/25 14:05 Months Nurse Filling Out Transfusion JZOLLINGE 02/05/25 14:05 & Questions: Date: 02/05/25 02/05/25 14:05 Time: 14:06 02/05/25 14:05 Patient unable to answer at this time (ie. confused, unrespo /Reproduction History /Reproductive History - cnc programmer: /Reproductive Hx- cnc programmer Hx Now No 02/05/25 14:05 Gestational Age (in weeks): EDC: Hx Hx Para Hx Section SAB No 02/05/25 14:05 Active Medications Active Medications: Current Medications Generic Name Dose Route Start Last Admin Trade Name Freq PRN Reason Stop Dose Admin Lactated Ringer's 1,000 mls @ 15 mls/hr 02/09/25 12:30 02/09/25 12:54 IV 15 mls/hr .Q48H LAYLA Administration PFSH Medical History Easy bruising History of GI bleed MRSA (methicillin resistant staph aureus) culture positive Chronic neuropathic pain Former smoker Myocardial infarct Pneumonia Tracheostomy in place Foraminal stenosis of cervical region Cervical spondylosis Ribs, multiple fractures Respiratory arrest before cardiac arrest Wears dentures Wears glasses Arthritis History of hiatal hernia Gastric reflux Sleep apnea Hypertension History of echocardiogram History of stress test Cardiology follow-up encounter History of heart attack GERD (gastroesophageal reflux disease) Dysphagia Hypersomnia Bronchiectasis Asthma-COPD overlap syndrome BPH (benign prostatic hyperplasia) Paroxysmal atrial tachycardia Paroxysmal ventricular tachycardia Premature ventricular contraction HCAP (healthcare-associated pneumonia) Atherosclerotic heart disease of [place] coronary artery without angina pectoris Ischemic cardiomyopathy HLD (hyperlipidemia) History of pulmonary embolism Home Medications ?Medication ?Instructions ?Recorded ?Last Taken ?Type gabapentin 400 mg capsule 800 mg (2 x 400 mg) PO TID # 1 cap 08/10/24 02/09/25 08:30 Rx bupropion HCl 150 mg 24 hr tablet, 150 mg PO BID 08/1602/09/25 08:30 History extended release albuterol sulfate 2.5 mg/3 mL 2.5 mg inhalation Q4H NE N PRN 09/11/24 Unknown History (0.083 %) solution for nebulization wheezing furosemide 40 mg tablet (Lasix) 40 mg PO DAILY 5 Unknown History ipratropium 0.5 mg-albuterol 3 mg 3 ml inhalation Q6H PRN PRN dyspnea 09/11/24 Unknown History (2.5 mg base)/3 mL nebulization soln apixaban 5 mg tablet (Eliquis) 5 mg PO BID #1 TAB 09/0202/05/25 Rx ketoconazole 2 % topical cream 1 applic topical BID Unknown History quetiapine 25 mg tablet 25 mg PO QHS 10/06/24 Unknow n History guaifenesin 1,200 mg tablet, 1,200 mg PO TID PRN conge stion 10/20/24 Unknown History extended release 12 hr (Mucinex) fluticasone fur. 200 mcg-umeclid 1 inh inhalation Q24H #60 ea 11/09/24 Unknown Rx 62.5 mcg-vilant 25 mcg inhalat.powder (Trelegy Ellipta) pantoprazole 40 mg tablet,delayed 40 mg PO BID 30 days #60 tabs 11/19/24 02/09/25 08:30 Rx release (Protonix) triamcinolone acetonide 0.1 % 1 applic topical .QD Unknown History topical cream fluticasone propionate 50 2 spray intranasal QDAY #16 grams 02/01/25 Unknown Rx mcg/actuation nasal spray,suspension atorvastatin 20 mg tablet 20 mg PO QHS 02/05/25 Unknow n History cyanocobalamin (vitamin B-12) 1,000 mcg PO DAILY 02/05 Unknown History 1,000 mcg capsule montelukast 10 mg tablet 10 mg PO DAILY 02/05/25 Unkn own History Allergy/AdvReac Type Severity Reaction Status Date / Time latex Allergy Rash Verified 02/09/25 12:48 varenicline tartrate (From Allergy Hives Verified 02/09/25 12:48 Chantix) aspirin AdvReac Upset Verified 02/09/25 12:48 Stomach Family History Father , age 50 CAD (coronary artery disease) Heart disease Myocardial infarction Mother Diabetes Brother Hypertension Surgical History S/P percutaneous endoscopic gastrostomy (PEG) tube placement History of tracheostomy History of chest tube placement Hx of carpal tunnel repair Hx of angioplasty History of cardiac catheterization History of coronary artery stent placement Hx of shoulder surgery Hx of sinus surgery Hx of nasal sinusotomy Hx of cystoscopy Hx of tonsillectomy History of thumb surgery Hx of right knee surgery Presence of coronary angioplasty implant and graft (~06/27/08) History of hernia repair Social History household members: significant other and children Smoking Status: Former smoker alcohol intake: never substance use type: does not use caffeine: Yes Type: coffee Number of servings: 3 what type of physical activity do you participate in: walking frequency: daily duration: 45-60 minutes/day seatbelt use: always do you feel safe at home: Yes Review of Systems (Anesthesia) ROS Narrative System reviewed and no additional complaints, except as documented. 02/09/25 1316 > Date _ Bobby Han MD Cosigner Signature: Date CC: ~ Signed [facility]06-06-2025 NoteHNO ID: [id number] Author: ALEXEY MAYBERRY MD Service: ? Author Type: Physician Type: Progress Notes Filed: 02/07/2025 00:28 Note Text: This note was created using [employer]. Subjective Patient presents with: Urinary Incontinence Chio Dent Jr. is a 64 year old male was here with significant other. She noted a stronger odor with his urine and was concerned about urinary tract infection. Furthermore, he has become increasingly incontinence, with urgency for the past 2 or more weeks. He also fell trying to go biking yesterday. He complained of rib pain and right hip pain. Review of Systems Constitutional: Negative for chills and fever. Gastrointestinal: Negative for abdominal pain. Genitourinary: Negative for dysuria, flank pain and hematuria. ACTIVE PROBLEM LIST Hyperlipidemia Asthma (Hcc) Copd Exacerbation ([facility]) Hypertension Coronary Artery Disease Involving [place] Heart Without Angina Pectoris Seasonal Allergic Rhinitis Due to Fungal Spores Seasonal Allergic Rhinitis Due to Pollen Current Smoker Other Osteoporosis Without Current Pathological Fracture Leukocytosis Malnutrition of Moderate Degree (Hcc) Quadriparesis (Hcc) Abnormal Brain Mri Anoxic Encephalopathy Due to Cardiac Arrest ([facility]) Mass of Right Parotid Gland Major Depressive Disorder With Psychotic Features (Hcc) Pulmonary Embolism (Hcc) Gastrointestinal Hemorrhage Current Outpatient Medications Medication Sig acetaminophen 325 mg cap Take 2 capsules by mouth as needed for pain. apixaban (ELIQUIS) 5 mg tab(s) Take 1 tablet by mouth two times a day. ipratropium-albuterol (DUONEB) 0.5 mg-3 mg(2.5 mg base)/3 mL nebu Inhale 3 mL as instructed every 6 hours as needed for wheezing/shortness of breath. gabapentin (NEURONTIN) 800 mg tablet Take 1 tablet by mouth three times a day. [facility] medication. buPROPion SR (WELLBUTRIN SR) 150 mg 12 hr tablet Take 1 tablet by mouth two times a day. hpeqijitgrq-eeuyrxyic-pjavrzwq (TRELEGY ELLIPTA) 200-62.5-25 mcg inhalation powder Inhale 1 Puff as instructed once daily. [facility]. pantoprazole DR (PROTONIX) 40 mg tablet Take 1 tablet by mouth two times a day. triamcinolone acetonide (KENALOG) 0.1 % cream Apply 1 application to affected area once daily as needed. atorvastatin (LIPITOR) 20 mg tablet Take 1 tablet by mouth daily at bedtime. magnesium oxide (MAG-OX) 400 mg (241.3 mg magnesium) tablet Take 1 tablet by mouth once daily. guaiFENesin (MUCINEX) 1,200 mg Ta12 Take 1 tablet by mouth as needed. ketoconazole (NIZORAL) 2 % cream Apply to affected area once daily. albuterol (PROVENTIL) 2.5 mg /3 mL (0.083 %) nebulizer solution Use 3 mL via nebulizer every 4 hours as needed for wheezing/shortness of breath. montelukast (SINGULAIR) 10 mg tablet Take 1 tablet by mouth once daily. QUEtiapine (SEROQUEL) 25 mg tablet Take 1 tablet by mouth daily at bedtime. furosemide (LASIX) 40 mg tablet Take 1 tablet by mouth once daily. oxybutynin XL (DITROPAN XL) 5 mg 24 hr tablet Take 1 tablet by mouth once daily. No current facility-administered medications for this visit. Objective BP 110/74 Pulse 82 Ht 165.1 cm (5' 5) Wt 72.7 kg (160 lb 4.4 oz) SpO2 98% BMI 26.67 kg/m? Physical Exam Constitutional: General: He is not in acute distress. Appearance: He is not ill-appearing. Cardiovascular: Heart sounds: Normal heart sounds. Pulmonary: Breath sounds: Normal breath sounds. Chest: Chest wall: Tenderness present. No deformity or crepitus. Abdominal: Palpations: Abdomen is soft. Tenderness: There is no abdominal tenderness. There is no right CVA tenderness or left CVA tenderness. Musculoskeletal: General: No tenderness or deformity. Skin: Capillary Refill: Capillary refill takes more than 3 seconds. Neurological: General: No focal deficit present. UA negative. Assessment and Plan 1. Urge incontinence of urine - ICD9: 788.31, ICD10: N39.41 (primary diagnosis) - UA DIP, URINE (POC) - OXYBUTYNIN CHLORIDE ER 5 MG TABLET,EXTENDED RELEASE 24 HR Discussed medication dosage, usage, goals of therapy, and side effects. 2. Lower urinary tract symptoms - ICD9: 788.99, ICD10: R39.9 - UA DIP, URINE (POC) 3. Rib contusion, right, initial encounter - ICD9: 922.1, ICD10: S20.211A Improving. 4. Major depressive disorder with psychotic features (HCC) - ICD9: 296.24, ICD10: F32.3 Refilled. - QUETIAPINE 25 MG TABLET 5. Primary hypertension - ICD9: 401.9, ICD10: I10 - Controlled - Continue current medications - FUROSEMIDE 40 MG TABLET Alexey Mayberry [facility]06-06-2025 History of Present illness Narrative* Alexey Mayberry MD - 02/05/2025 5:10 PM EDT This note was created using [employer]. Subjective Patient presents with: Urinary Incontinence Chio Dent Jr. is a 64 year old male was here with significant other. She noted a stronger odor with his urine and was concerned about urinary tract infection. Furthermore, he has become increasingly incontinence, with urgency for the past 2 or more weeks. He also fell trying to go biking yesterday. He complained of rib pain and right hip pain. Review of Systems Constitutional: Negative for chills and fever. Gastrointestinal: Negative for abdominal pain. Genitourinary: Negative for dysuria, flank pain and hematuria. ACTIVE PROBLEM LIST Hyperlipidemia Asthma (Hcc) Copd Exacerbation (Hcc) Hypertension Coronary Artery Disease Involving [place] Heart Without Angina Pectoris Seasonal Allergic Rhinitis Due to Fungal Spores Seasonal Allergic Rhinitis Due to Pollen Current Smoker Other Osteoporosis Without Current Pathological Fracture Leukocytosis Malnutrition of Moderate Degree (Hcc) Quadriparesis (Hcc) Abnormal Brain Mri Anoxic Encephalopathy Due to Cardiac Arrest (Hcc) Mass of Right Parotid Gland Major Depressive Disorder With Psychotic Features (Hcc) Pulmonary Embolism (Hcc) Gastrointestinal Hemorrhage Current Outpatient Medications Medication Sig acetaminophen 325 mg cap Take 2 capsules by mouth as needed for pain. apixaban (ELIQUIS) 5 mg tab(s) Take 1 tablet by mouth two times a day. ipratropium-albuterol (DUONEB) 0.5 mg-3 mg(2.5 mg base)/3 mL nebu Inhale 3 mL as instructed every 6hours as needed for wheezing/shortness of breath. gabapentin (NEURONTIN) 800 mg tablet Take 1 tablet by mouth three times a day. VA medication. buPROPion SR (WELLBUTRIN SR) 150 mg 12 hr tablet Take 1 tablet by mouth two times a day. tlyvfbyhdkq-llehrwowv-rvkfjqkk (TRELEGY ELLIPTA) 200-62.5-25 mcg inhalation powder Inhale 1 Puff asinstructed once daily. [facility]. pantoprazole DR (PROTONIX) 40 mg tablet Take 1 tablet by mouth two times a day. triamcinolone acetonide (KENALOG) 0.1 % cream Apply 1 application to affected area once daily as needed. atorvastatin (LIPITOR) 20 mg tablet Take 1 tablet by mouth daily at bedtime. magnesium oxide (MAG-OX) 400 mg (241.3 mg magnesium) tablet Take 1 tablet by mouth once daily. guaiFENesin (MUCINEX) 1,200 mg Ta12 Take 1 tablet by mouth as needed. ketoconazole (NIZORAL) 2 % cream Apply to affected area once daily. albuterol (PROVENTIL) 2.5 mg /3 mL (0.083 %) nebulizer solution Use 3 mL via nebulizer every 4 hours as needed for wheezing/shortness of breath. montelukast (SINGULAIR) 10 mg tablet Take 1 tablet by mouth once daily. QUEtiapine (SEROQUEL) 25 mg tablet Take 1 tablet by mouth daily at bedtime. furosemide (LASIX) 40 mg tablet Take 1 tablet by mouth once daily. oxybutynin XL (DITROPAN XL) 5 mg 24 hr tablet Take 1 tablet by mouth once daily. No current facility-administered medications for this visit. Objective BP 110/74 Pulse 82 Ht 165.1 cm (5' 5) Wt 72.7 kg (160 lb 4.4 oz) SpO2 98% BMI 26.67 kg/m Physical Exam Constitutional: General: He is not in acute distress. Appearance: He is not ill-appearing. Cardiovascular: Heart sounds: Normal heart sounds. Pulmonary: Breath sounds: Normal breath sounds. Chest: Chest wall: Tenderness present. No deformity or crepitus. Abdominal: Palpations: Abdomen is soft. Tenderness: There is no abdominal tenderness. There is no right CVA tenderness or left CVA tenderness. Musculoskeletal: General: No tenderness or deformity. Skin: Capillary Refill: Capillary refill takes more than 3 seconds. Neurological: General: No focal deficit present. UA negative. Assessment and Plan 1. Urge incontinence of urine - ICD9: 788.31, ICD10: N39.41 (primary diagnosis) - UA DIP, URINE (POC) - OXYBUTYNIN CHLORIDE ER 5 MG TABLET,EXTENDED RELEASE 24 HR Discussed medication dosage, usage, goals of therapy, and side effects. 2. Lower urinary tract symptoms - ICD9: 788.99, ICD10: R39.9 - UA DIP, URINE (POC) 3. Rib contusion, right, initial encounter - ICD9: 922.1, ICD10: S20.211A Improving. 4. Major depressive disorder with psychotic features (HCC) - ICD9: 296.24, ICD10: F32.3 Refilled. - QUETIAPINE 25 MG TABLET 5. Primary hypertension - ICD9: 401.9, ICD10: I10 - Controlled - Continue current medications - FUROSEMIDE 40 MG TABLET Alexey Mayberry MD [facility] Tele[facility] encounter Note * Telephone Encounter - Debora Yap MA - 02/05/2025 2:24 PM EDT Patient has been identified by name and date of : yes Patient phones for refill(s): Requested Prescriptions Pending Prescriptions Disp Refills furosemide (LASIX) 40 mg tablet 30 tablet 2 Sig: Take 1 tablet by mouth once daily. Date of last office visit in primary care: 12/09/24 Date of next office visit in primary care: 03/19/25 Please advise. Thank you. Debora Yap MA. [facility]06-06-2025 Miscellaneous Notes* Telephone Encounter - Debora Yap MA - 02/05/2025 2:24 PM EDT Patient has been identified by name and date of : yes Patient phones for refill(s): Requested Prescriptions Pending Prescriptions Disp Refills furosemide (LASIX) 40 mg tablet 30 tablet 2 Sig: Take 1 tablet by mouth once daily. Date of last office visit in primary care: 12/09/24 Date of next office visit in primary care: 03/19/25 Please advise. Thank you. Debora Yap MA. * Telephone Encounter - Loretta Smith - 02/05/2025 1:07 PM EDT Prescription Refill Information The patient has been identified by name and date of : Yes Caregiver verified no other encounters exist for this prescription request: Yes Caregiver confirmed with patient/requestor that no other refills are due, in the near future, with this provider at this time: Yes The last office visit in the department: 12/09/2024 Does the patient have a future office visit with this provider/department: Yes Requested Prescriptions Pending Prescriptions Disp Refills furosemide (LASIX) 40 mg tablet 30 tablet 2 Sig: Take 1 tablet by mouth once daily. Loretta Thorne February 05, 2025 1:07 PM [facility] Telephone encounter Note * Telephone Encounter - Loretta Smith - 02/05/2025 1:07 PM EDT Prescription Refill Information The patient has been identified by name and date of : Yes Caregiver verified no other encounters exist for this prescription request: Yes Caregiver confirmed with patient/requestor that no other refills are due, in the near future, with this provider at this time: Yes The last office visit in the department: 12/09/2024 Does the patient have a future office visit with this provider/department: Yes Requested Prescriptions Pending Prescriptions Disp Refills furosemide (LASIX) 40 mg tablet 30 tablet 2 Sig: Take 1 tablet by mouth once daily. Loretta Thorne February 05, 2025 1:07 PM [facility]05-28[facility] Evaluation note* Diagnosis Onset Date Resolution Status Admit Date Lung nodules acute January 27 9:52am COPD (chronic obstructive pulmonary disease) chronic January 27 9:52am Physical debility chronic December 9:52am Pulmonary emboli chronic December 9:52am Acute upper GI bleeding acute J 2024 12:23pm Gastric ulcer acute February 09, 2025 12:23pm Esophagitis determined by endoscopy acute February 24, 2025 1:35pm History of subarachnoid hemorrhage acute March 29, 2025 10:11am Anoxic-ischemic encephalopathy chron ic March 29, 2025 10:11am [facility] Work Phone: [phone]) 737-980905-16-2025 NoteHNO ID: [id number] Author: JOHN GARDNER RN Service: ? Author Type: Registered Nurse Type: Progress Notes Filed: 01/15/2025 09:47 Note Text: Value Based Care Management Inbound Call Provider Action / FYI: Date of Call: 01/15/2025 Time of Call: 9:46 AM Caller Name: Chio Dent Caller relationship to the patient: Patient Patient identified by Name and Date of : Yes Reason for Call / Main Concern Returning call to Hydraulic Chair Assembler Summary of Callers Concern Returning call to PCC Action Taken / Plan Routed to Patient's Hydraulic Chair Assembler John Gardner RN January 15, 2025 9:46 [facility]05-16-2025 History of Present illness Narrative* John Gardner RN - 01/15/2025 9:46 AM EDT Value Based Care Management Inbound Call Provider Action / FYI: Date of Call: 01/15/2025 Time of Call: 9:46 AM Caller Name: Chio Dent Caller relationship to the patient: Patient Patient identified by Name and Date of : Yes Reason for Call / Main Concern Returning call to Hydraulic Chair Assembler Summary of Callers Concern Returning call to PCC Action Taken / Plan Routed to Patient's Hydraulic Chair Assembler John Gardner RN January 15, 2025 9:46 AM documented in this [facility] NotePatient Outreach ([facility]) CHIO DENT JR. ([id number]) 1960 M Date Time Provider Department 01/15/25 JOHN GARDNER [facility] During your visit today, we recorded the following information about you: John Gardner RN 01/15/2025 9:47 AM Signed Value Based Care Management Inbound Call Provider Action / FYI: Date of Call: 01/15/2025 Time of Call: 9:46 AM Caller Name: Chio Dent Caller relationship to the patient: Patient Patient identified by Name and Date of : Yes Reason for Call / Main Concern Returning call to Hydraulic Chair Assembler Summary of Callers Concern Returning call to PCC Action Taken / Plan Routed to Patient's Hydraulic Chair Assembler John Gardner RN January 15, 2025 9:46 AM Allergies As of Date: 01/15/2025 Noted Allergy Reaction ASPIRIN 06/21/2010 8 - [...] ragweed (April, May and June) Date Reviewed: 12/09/2024 Reviewed by: Jennifer Parikh LPN - Fully Assessed Reason for Visit: Care Coordination [3491] Cmt: [facility] Inbound Call Prescriptions as of 01/15/2025 - acetaminophen 325 mg cap Take 2 capsules by mouth as needed for pain. - apixaban (ELIQUIS) 5 mg tab(s) Take 1 tablet by mouth two times a day. - QUEtiapine (SEROQUEL) 25 mg tablet Take 1 tablet by mouth daily at bedtime. - ipratropium-albuterol (DUONEB) 0.5 mg-3 mg(2.5 mg base)/3 mL nebu Inhale 3 mL as instructed every 6 hours as needed for wheezing/shortness of breath. - gabapentin (NEURONTIN) 800 mg tablet Take 1 tablet by mouth three times a day. VA medication. - buPROPion SR (WELLBUTRIN SR) 150 mg 12 hr tablet Take 1 tablet by mouth two times a day. - ydcyrwlaadu-rludikrgc-qqdvhjdm (TRELEGY ELLIPTA) 200-62.5-25 mcg inhalation powder Inhale 1 Puff as instructed once daily. [facility]. - pantoprazole DR (PROTONIX) 40 mg tablet Take 1 tablet by mouth two times a day. - triamcinolone acetonide (KENALOG) 0.1 % cream Apply 1 application to affected area once daily as needed. - atorvastatin (LIPITOR) 20 mg tablet Take 1 tablet by mouth daily at bedtime. - magnesium oxide (MAG-OX) 400 mg (241.3 mg magnesium) tablet Take 1 tablet by mouth once daily. - guaiFENesin (MUCINEX) 1,200 mg Ta12 Take 1 tablet by mouth as needed. - ketoconazole (NIZORAL) 2 % cream Apply to affected area once daily. - furosemide (LASIX) 40 mg tablet Take 1 tablet by mouth once daily. - albuterol (PROVENTIL) 2.5 mg /3 mL (0.083 %) nebulizer solution Use 3 mL via nebulizer every 4 hours as needed for wheezing/shortness of breath. - montelukast (SINGULAIR) 10 mg tablet Take 1 tablet by mouth once daily. Problem List As Of Date 01/15/2025 Noted Resolved History of [place] (myocardial infarction) [I25.2] 06/02/2008 03/21/2017 Hyperlipidemia [E78.5] Asthma [J45.909] COPD exacerbation (HCC) [J44.1] Former smoker [Z87.891] 06/02/2024 Hypertension [I10] Erectile dysfunction [N52.9] 11/09/2015 GERD (gastroesophageal reflux disease) [K21.9] 11/09/2015 Nasal polyposis [J33.9] 11/09/2015 11/18/2024 Hematuria [R31.9] 09/27/2011 11/09/2015 Lesion of bladder [N32.9] 09/27/2011 11/09/2015 Coronary artery disease involving [place] heart *03/21/2017 Seasonal allergic rhinitis due to fungal spores*01/14/2018 Allergic rhinitis due to dust mite [J30.89] 01/14/2018 11/18/2024 Seasonal allergic rhinitis due to pollen [J30.1]01/14/2018 Bronchiectasis with acute exacerbation (HCC) [J*07/12/2021 11/18/2024 Dysphagia [R13.10] 01/18/2022 11/18/2024 Current smoker [F17.200] 06/02/2024 Other osteoporosis without current pathological*06/02/2024 Cardiac arrest (HCC) [I46.9] 06/04/2024 10/05/2024 Acute on chronic respiratory failure with hypox*06/04/2024 11/18/2024 Traumatic pneumothorax [S27.0XXA] 06/04/2024 11/18/2024 Pressure injury of deep tissue of sacral region*06/11/2024 11/18/2024 Pneumothorax on right [J93.9] 06/15/2024 11/18/2024 Multiple closed fractures of ribs of right side*06/15/2024 11/18/2024 Respiratory arrest (HCC) [R09.2] 06/15/2024 11/18/2024 Subcutaneous emphysema [T79.7XXA] 06/15/2024 11/18/2024 Leukocytosis [D72.829] 06/15/2024 Bacterial pneumonia [J15.9] 06/15/2024 11/18/2024 Hypernatremia [E87.0] 06/15/2024 11/18/2024 Malnutrition of moderate degree (HCC) [E44.0] 06/16/2024 Subarachnoid hemorrhage (HCC) [I60.9] 06/17/2024 11/18/2024 Quadriparesis (HCC) [G82.50] 06/18/2024 Abnormal brain MRI [R90.89] 06/18/2024 Tracheostomy status (HCC) [Z93.0] 06/18/2024 11/18/2024 (more content not included)...[facility]05-04-2025 Radiology Diagnostic study [facility]04-23-2025 Telephone encounter Note* Telephone Encounter - Makenna Moura - 12/23/2024 12:23 PM EDT Left VM and MC message for pt to call and schedule with Dr. Steel for FNA of right parotid mass -faxed referral. [facility]04[facility] Miscellaneous Notes* Telephone Encounter - Makenna Moura - 12/23/2024 12:23 PM EDT Left VM and MC message for pt to call and schedule with Dr. Steel for FNA of right parotid mass -faxed referral. documented in this [facility] History of Present illness Narrative* Bob Rebolledo MD - 12/18/2024 10:00 AM EDT History of Present Illness Chio Juliann Dent Jr. is a 64 y.o. male who is seen at the request of Dr. Shemar Figueroa for the management of a right neck\parotid mass. This patient had some imaging done for another reason and thislump was discovered. I do not have the report neither do I have the scans. The patient has no symptoms related to the presence of this mass. Past Medical History The past medical history is significant for COPD, significant cardiac disease. His medications are documented in the chart. He has some allergies to medications and that is documented in the chart. He stopped smoking in June 2024. He smoked most of his life. He is here today with his daughter. Physical Exam The patient is alert and oriented. He had impacted cerumen in his left ear and this was addressed with a small instrument. Examination of the external ears, ear canals, and eardrums, is within normallimits. Examination of the anterior and external nose is negative. Examination of the oral cavity and oropharynx is normal. There is no evidence of any mucosal lesions. There is good mobility of the tongue and palate. There is good mandibular excursion. Palpation of the parotid, neck, and thyroid field is negative except for this right retromandibular nodularity that is most likely on the parotid. It measures approximately a centimeter and a half. A flexible laryngoscopy was carried out. Under topical Xylocaine and Selvin- Synephrine the scope was introduced through the nostril. The nasopharynx, base of tongue, hypopharynx, and larynx are visualized. The vocal cords are normally mobile. There is no pooling of secretions in the piriform sinuses. There is no evidence of any mucosal lesions. After verbal consent under Exactacain 1% to 100,000 epinephrine 3 passes were made with a 22-gauge needle. This was well-tolerated. Assessment and Plan Right parotid mass. This is very small. The scans will be retrieved. This was biopsied today. I will call the patient when I get the results. Given the patient's overall medical condition unless thisturns out to be malignant it will be followed clinically. Impacted cerumen in the left ear which was addressed with a small instrument. I will see him in 3 months. documented in this [facility] Work Phone: 1(230) 780-796504-09-2025 NoteHNO ID: [id number] Author: ALEXEY MAYBERRY MD Service: ? Author Type: Physician Type: Progress Notes Filed: 12/09/2024 13:46 Note Text: This note was created using [employer]. Subjective Patient presents with: 4 week follow-up Chio Dent Jr. is a 64 year old male here with his significant other. He had been out of lorazepam and his tremors were unchanged. His mood and sleep was much better on quetiapine. He was scheduled to see Dr. Hartman for neurology but not until March. His COPD was much better on Trelegy, and partner indicated he has used his nebulizer only 3 times in the past week. He saw GI and an EGD was planned There was no consistent hyperglycemia consistent with diabetes mellitus. His recent chest xray was negative. His mobility was improved. Review of Systems Constitutional: Negative for chills and fever. Respiratory: Positive for cough. Negative for shortness of breath and wheezing. Cardiovascular: Negative for chest pain, palpitations and leg swelling. Genitourinary: Negative for dysuria. Neurological: Positive for tremors. Negative for dizziness and headaches. Psychiatric/Behavioral: Negative for confusion and dysphoric mood. The patient is not nervous/anxious. 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 apixaban (ELIQUIS) 5 mg tab(s) Take 1 tablet by mouth two times a day. LORazepam (ATIVAN) 0.5 mg Take 1 tablet by mouth three times a day as needed (anxiety) for up to 30 days. QUEtiapine (SEROQUEL) 25 mg tablet Take 1 tablet by mouth daily at bedtime. ipratropium-albuterol (DUONEB) 0.5 mg-3 mg(2.5 mg base)/3 mL nebu Inhale 3 mL as instructed every 6 hours as needed for wheezing/shortness of breath. gabapentin (NEURONTIN) 800 mg tablet Take 1 tablet by mouth three times a day. VA medication. buPROPion SR (WELLBUTRIN SR) 150 mg 12 hr tablet Take 1 tablet by mouth two times a day. ixekcstasqx-hspuxvzhz-bdjuwquz (TRELEGY ELLIPTA) 200-62.5-25 mcg inhalation powder Inhale 1 Puff as instructed once daily. [facility]. pantoprazole DR (PROTONIX) 40 mg tablet Take 1 tablet by mouth two times a day. triamcinolone acetonide (KENALOG) 0.1 % cream Apply 1 application to affected area once daily as needed. atorvastatin (LIPITOR) 20 mg tablet Take 1 tablet by mouth daily at bedtime. magnesium oxide (MAG-OX) 400 mg (241.3 mg magnesium) tablet Take 1 tablet by mouth once daily. guaiFENesin (MUCINEX) 1,200 mg Ta12 Take 1 tablet by mouth as needed. ketoconazole (NIZORAL) 2 % cream Apply to affected area once daily. furosemide (LASIX) 40 mg tablet Take 1 tablet by mouth once daily. albuterol (PROVENTIL) 2.5 mg /3 mL (0.083 %) nebulizer solution Use 3 mL via nebulizer every 4 hours as needed for wheezing/shortness of breath. montelukast (SINGULAIR) 10 mg tablet Take 1 tablet by mouth once daily. glucagon 1 mg/mL injection Inject 1 mg intramuscularly as needed. (Patient not taking: Reported on 12/09/2024) polyethylene glycol 3350 17 gram packet Take 1 Packet by mouth two times a day. Dissolve dose in 4 - 8 ounces of liquid and take as directed. (Patient not taking: Reported on 12/09/2024) No current facility-administered medications for this visit. Objective BP 122/64 (BP Site: Right Arm, BP Position: Sitting, BP Cuff Size: Large Adult) Pulse (!) 4 Resp 18 Wt 71.3 kg (157 lb 3 oz) SpO2 98% BMI 26.16 kg/m? Physical Exam Constitutional: General: He is not in acute distress. Appearance: He is not ill-appearing or diaphoretic. Cardiovascular: Rate and Rhythm: Normal rate and regular rhythm. Heart sounds: No murmur heard. No gallop. Pulmonary: Effort: No respiratory distress. Breath sounds: Rhonchi present. No wheezing or rales. Abdominal: Tenderness: There is no abdominal tenderness (more content not included)... [facility]04-09-2025 History of Present illness Narrative* Alexey Mayberry MD - 12/09/2024 11:01 AM EDT This note was created using [employer]. Subjective Patient presents with: 4 week follow-up Chio Humphreys Filipe Jr. is a 64 year old male here with his significant other. He had been out of lorazepam and his tremors were unchanged. His mood and sleep was much better on quetiapine. He was scheduled to see Dr. Hartman for neurology but not until March. His COPD was much better on Trelegy, andpartner indicated he has used his nebulizer only 3 times in the past week. He saw GI and an EGD wasplanned There was no consistent hyperglycemia consistent with diabetes mellitus. His recent chest xray was negative. His mobility was improved. Review of Systems Constitutional: Negative for chills and fever. Respiratory: Positive for cough. Negative for shortness of breath and wheezing. Cardiovascular: Negative for chest pain, palpitations and leg swelling. Genitourinary: Negative for dysuria. Neurological: Positive for tremors. Negative for dizziness and headaches. Psychiatric/Behavioral: Negative for confusion and dysphoric mood. The patient is not nervous/anxious. 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 apixaban (ELIQUIS) 5 mg tab(s) Take 1 tablet by mouth two times a day. LORazepam (ATIVAN) 0.5 mg Take 1 tablet by mouth three times a day as needed (anxiety) for up to 30days. QUEtiapine (SEROQUEL) 25 mg tablet Take 1 tablet by mouth daily at bedtime. ipratropium-albuterol (DUONEB) 0.5 mg-3 mg(2.5 mg base)/3 mL nebu Inhale 3 mL as instructed every 6hours as needed for wheezing/shortness of breath. gabapentin (NEURONTIN) 800 mg tablet Take 1 tablet by mouth three times a day. [facility] medication. buPROPion SR (WELLBUTRIN SR) 150 mg 12 hr tablet Take 1 tablet by mouth two times a day. euxriaqwlam-zihfuxphb-fewooevt (TRELEGY ELLIPTA) 200-62.5-25 mcg inhalation powder Inhale 1 Puff asinstructed once daily. [facility]. pantoprazole DR (PROTONIX) 40 mg tablet Take 1 tablet by mouth two times a day. triamcinolone acetonide (KENALOG) 0.1 % cream Apply 1 application to affected area once daily as needed. atorvastatin (LIPITOR) 20 mg tablet Take 1 tablet by mouth daily at bedtime. magnesium oxide (MAG-OX) 400 mg (241.3 mg magnesium) tablet Take 1 tablet by mouth once daily. guaiFENesin (MUCINEX) 1,200 mg Ta12 Take 1 tablet by mouth as needed. ketoconazole (NIZORAL) 2 % cream Apply to affected area once daily. furosemide (LASIX) 40 mg tablet Take 1 tablet by mouth once daily. albuterol (PROVENTIL) 2.5 mg /3 mL (0.083 %) nebulizer solution Use 3 mL via nebulizer every 4 hours as needed for wheezing/shortness of breath. montelukast (SINGULAIR) 10 mg tablet Take 1 tablet by mouth once daily. glucagon 1 mg/mL injection Inject 1 mg intramuscularly as needed. (Patient not taking: Reported on 12/09/2024) polyethylene glycol 3350 17 gram packet Take 1 Packet by mouth two times a day. Dissolve dose in 4 - 8 ounces of liquid and take as directed. (Patient not taking: Reported on 12/09/2024) No current facility-administered medications for this visit. Objective BP 122/64 (BP Site: Right Arm, BP Position: Sitting, BP Cuff Size: Large Adult) Pulse (!) 4 Resp 18 Wt 71.3 kg (157 lb 3 oz) SpO2 98% BMI 26.16 kg/m Physical Exam Constitutional: General: He is not in acute distress. Appearance: He is not ill-appearing or diaphoretic. Cardiovascular: Rate and Rhythm: Normal rate and regular rhythm. Heart sounds: No murmur heard. No gallop. Pulmonary: Effort: No respiratory distress. Breath sounds: Rhonchi present. No wheezing or rales. Abdominal: Tenderness: There is no abdominal tenderness. Musculoskeletal: Right lower leg: No edema. Left lower leg: No edema. Neurological: General: No focal deficit present. Mental Status: Mental status is at baseline. Motor: Tremor present. Gait: Gait abnormal. Comments: Ambulatory without assistive device, but slowed gait. Mild intention tremor. Psychiatric: Attention and Perception: Attention normal. Mood and Affect: Affect is flat. Speech: Speech is delayed. Behavior: Behavior is cooperative. Cognition and Memory: Cognition is impaired. Assessment and Plan 1. Quadriparesis (HCC) - ICD9: 344.00, ICD10: G82.50 (primary diagnosis) Resolving. Finish PT. 2. Major depressive disorder with psychotic features (HCC) - ICD9: 296.24, ICD10: F32.3 Controlled. - Discontinue LORAZEPAM. Patient indicated understanding and willingness to follow recommendations. 3. COPD exacerbation (HCC) - ICD9: 491.21, ICD10: J44.1 - Improved. 4. Mass of right parotid gland - ICD9: 527.8, ICD10: K11.[address] scan. - CONSULT TO ENT 5. Need for vaccination - ICD9: V05.9, ICD10: Z23 - PNEUMOCOCCAL VACCINE, 20 VALENT (PREVNAR 20) 6. Gastrointestinal hemorrhage, unspecified gastrointestinal hemorrhage type - ICD9: 578.9, ICD10: K92.2 - EGD planned by [facility] next month. 7. 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) - ICD9: 348.1, 427.5, ICD10: G93.1, I46.9 - Improving. Neurology consult pending. 8. Multiple subsegmental pulmonary emboli without acute cor pulmonale (HCC) - ICD9: 415.19, ICD10: I26.94 - Continue Apixiban x 6 months, until January 2025. Alexey Mayberry MD documented in this encounterPrem[facility]25 NoteHNO ID: [id number] Author: YAYN JACKMAN LSW Service: ? Author Type: Coffee Roaster Helper Type: Progress Notes Filed: 12/07/2024 13:38 Note Text: Value Based Social Work Progress Note Provider Action / FYI PCP Action none Date of Service: 12/07/2024 Patient identified by name/: Yes- via Telephone Referral Source: Referral Patient Outreach: Initial Mode of Outreach: Phone Call Response Time: Contact made Patient Needs: Insurance issues Assessment: Payor Social supports Action Taken: Supportive listening Call to patient to confirm their wishes re insurance /call to [employer] to determine any option to resume coverage before the next open enrollment. Is Patient ready for discharge? Yes Social Barrier resolution or patient discharge reason: S.O. determined they do not have the option to resume with [employer] until June of this year Narrative: Received referral from Outreach nurse Juli Carreon who was requesting assistance for this patient who gave up his [employer] plan last month , but wants to switch back. Call to patient and to his S.O. who state they were convinced by an insurance counter sales representative over the phone to make the switch but now wish they hadn't . They called [employer] and tried to switch back but were told it was too late and they need to wait until open enrollment again in June this year. They were also told they had until November 30 to make any changes . It is unclear if they had spoken to the new insurer ([employer]) or the old one, [employer]. Call to [facility], spoke to Customer service. Was advised patient can speak to Member Services to determine if he has the option to resume with [employer], but as it stands now, he has [employer]. . Interventions: Advocacy Assessment Discharge from [facility] panel Education Empowering/Coaching Stakeholder collaboration Collaborative / informative phone calls RADHA Limon December 07, 2024 1:31 [facility]04-07-2025 History of Present illness Narrative* Yany Jackman LSW - 12/07/2024 1:29 PM EDT Value Based Social Work Progress Note Provider Action / FYI PCP Action none Date of Service: 12/07/2024 Patient identified by name/: Yes- via Telephone Referral Source: Referral Patient Outreach: Initial Mode of Outreach: Phone Call Response Time: Contact made Patient Needs: Insurance issues Assessment: Payor Social supports Action Taken: Supportive listening Call to patient to confirm their wishes re insurance /call to [employer] to determine any option to resume coverage before the next open enrollment. Is Patient ready for discharge? Yes Social Barrier resolution or patient discharge reason: S.O. determined they do not have the option to resume with [employer] until June this Narrative: Received referral from Outreach nurse Juli Carreon who was requesting assistance for this patient who gave up his [employer] plan last month , but wants to switch back. Call to patient and to his S.O. who state they were convinced by an insurance counter sales representative over the phone to make the switch but now wish they hadn't . They called [employer] and tried to switch back but were told it was too lateand they need to wait until open enrollment again in June of this year. They were also told theyhad until November 30 to make any changes . It is unclear if they had spoken to the new insurer ([employer]) or the old one, [employer]. Call to [employer], spoke to Customer service. Was advised patient can speak to Member Services to determine if he has the option to resume with [employer], but as it stands now,he has [employer]. . Interventions: Advocacy Assessment Discharge from [facility] panel Education Empowering/Coaching Stakeholder collaboration Collaborative / informative phone calls RADHA Limon December 07, 2024 1:31 PM documented in this encounterPremier [facility]04-04-2025 NoteHNO ID: [id number] Author: JULI CARREON RN Service: ? Author Type: Registered Nurse Type: Progress Notes Filed: 12/04/2024 15:52 Note Text: CDM ENROLLMENT Provider Action / FYI: SW REFERRAL: Patient recently changed health care insurance from [employer] - wants to switch back but having difficulty doing so. Please discuss with patient and significant other Usha Patient identified by name and date of . Discussed care with patient and SO Usha. Patient recently discharged from [facility] for GIB ulcer. Currently has [facility]. Usha asking for assistance with changing health care insurance back to [employer] - patient changed to [employer] via phone - suggested SW consult Patient reports he needs new [facility] them - encouraged follow up. Program Details Chronic Disease Management Status: Enrolled Effective Dates: 12/04/2024 - present Responsible Staff: Juli Carreon RN Support and Services: Hypertension, Chronic Obstructive Pulmonary Disease (COPD), Diabetes Assessments CDM Assessment No documentation this encounter ADLs Patients can perform the following activities without help: Dressing: Yes Bathing: Yes Doing laundry: Yes Climbing a flight of stairs: Yes Walking briskly: Yes Instrumental activities of daily living Do you drive a car?: No Do you need help from others to take care of things inside the house, for example: laundry, house cleaning, preparing meals?: Yes Did you have the help you needed?: Yes Do you need help from others with errands outside the house, for example: shopping for groceries or clothes, going medical appointments?: Yes Did you have the help you needed?: Yes Fall Risk One or more falls in the last year:: No Any near falls in the last year?: No Advised to use a cane or walker to get around safely:: No Feels unsteady when walking:: No Steadies self on furniture while walking at home:: No Worried about falling:: No Needs to push with hands when rising from a chair:: No Has trouble stepping up onto a curb:: No Often has to bella to the toilet:: No Has lost some feeling in feet:: Yes Takes medicine that makes him/her feel lightheaded or more tired than usual:: No Takes medicine to sleep or improve mood:: No SDOH Financial Resource Strain How hard is it for you to pay for the very basics like food, housing, medical care, and heating?: Not hard at all Housing Stability In the last 12 months, was there a time when you were not able to pay the mortgage or rent on time?: No In the past 12 months, how many times have you moved where you were living?: 0 At any time in the past 12 months, were you homeless or living in a jail (including now)?: No Transportation Needs In the past 12 months, has lack of transportation kept you from medical appointments or from getting medications?: No In the past 12 months, has lack of transportation kept you from meetings, work, or from getting things needed for daily living?: No Food Insecurity Within the past 12 months, you worried that your food would run out before you got the money to buy more.: Never true Within the past 12 months, the food you bought just didn't last and you didn't have money to get more.: Never true Utilities In the past 12 months has the [employer], oil, or water [employer] threatened to shut off services in your home?: No Tobacco Use Patient reports that he quit smoking about 3 years ago. His smoking use included cigarettes. He started smoking about 50 years ago. He has a 23.4 pack-year smoking history. His smokeless tobacco use includes chew. Interventions The following were addressed during this visit: - Initial enrollment outreach - Annual Pulmonology visit addressed - Schedule Annual COPD Pulmonology Appointment - HTN lab care gaps addressed - Month 3: Schedule/Order BMP Lab - Diabetes lab care gaps addressed - Month 1: Schedule/Order HbA1C Lab - Month 1: Schedule/Order Lipid Panel Lab - Evaluate for Referral to Pharmacy for Diabetes Medication Management - Evaluate for Referral to Endocrinology ([facility] only) - Month 3: Schedule/Order Urine Albumin Creatinine lab - Intake assessments completed: ADLs, Fall Risk, SDOH - Biannual PCP visit addressed - Annual Medicare Wellness visit addressed - Schedule Biannual PCP Appointment - Schedule Annual Wellness Visit - Month 1: Provide General Education: How to Contact Your Physician Team Disposition Based on neighborhood service center director, the following disposition is advised: Routed Primary Care Social Work Juli Carreon RN December 04, 2024 3:44 [facility]04-04-2025 History of Present illness Narrative* Juli Carreon RN - 12/04/2024 3:25 PM EDT CDM ENROLLMENT Provider Action / FYI: SW REFERRAL: Patient recently changed health care insurance from [employer] - wants to switch back but having difficulty doing so. Please discuss with patient and significant other Usha Patient identified by name and date of . Discussed care with patient and SO Usha. Patient recently discharged from [facility] for GIB ulcer. Currently has [facility] Physical [facility]. Usha asking for assistance with changing health care insurance back to [employer] - patient changed to [employer] via phone - suggested SW consult Patient reports he needs new nebulizer [facility] - patient has contacted them - encouragedfollow up. Program Details Chronic Disease Management Status: Enrolled Effective Dates: 12/04/2024 - present Responsible Staff: Juli Carreon RN Support and Services: Hypertension, Chronic Obstructive Pulmonary Disease (COPD), Diabetes Assessments CDM Assessment No documentation this encounter ADLs Patients can perform the following activities without help: Dressing: Yes Bathing: Yes Doing laundry: Yes Climbing a flight of stairs: Yes Walking briskly: Yes Instrumental activities of daily living Do you drive a car?: No Do you need help from others to take care of things inside the house, for example: laundry, house cleaning, preparing meals?: Yes Did you have the help you needed?: Yes Do you need help from others with errands outside the house, for example: shopping for groceries orclothes, going medical appointments?: Yes Did you have the help you needed?: Yes Fall Risk One or more falls in the last year:: No Any near falls in the last year?: No Advised to use a cane or walker to get around safely:: No Feels unsteady when walking:: No Steadies self on furniture while walking at home:: No Worried about falling:: No Needs to push with hands when rising from a chair:: No Has trouble stepping up onto a curb:: No Often has to bella to the toilet:: No Has lost some feeling in feet:: Yes Takes medicine that makes him/her feel lightheaded or more tired than usual:: No Takes medicine to sleep or improve mood:: No SDOH Financial Resource Strain How hard is it for you to pay for the very basics like food, housing, medical care, and heating?: Not hard at all Housing Stability In the last 12 months, was there a time when you were not able to pay the mortgage or rent on time?: No In the past 12 months, how many times have you moved where you were living?: 0 At any time in the past 12 months, were you homeless or living in a jail (including now)?: No Transportation Needs In the past 12 months, has lack of transportation kept you from medical appointments or from getting medications?: No In the past 12 months, has lack of transportation kept you from meetings, work, or from getting things needed for daily living?: No Food Insecurity Within the past 12 months, you worried that your food would run out before you got the money to buymore.: Never true Within the past 12 months, the food you bought just didn't last and you didn't have money to get more.: Never true Utilities In the past 12 months has the [employer], oil, or water [employer] threatened to shut off services in your home?: No Tobacco Use Patient reports that he quit smoking about 3 years ago. His smoking use included cigarettes. He started smoking about 50 years ago. He has a 23.4 pack-year smoking history. His smokeless tobacco use includes chew. Interventions The following were addressed during this visit: - Initial enrollment outreach - Annual Pulmonology visit addressed - Schedule Annual COPD Pulmonology Appointment - HTN lab care gaps addressed - Month 3: Schedule/Order BMP Lab - Diabetes lab care gaps addressed - Month 1: Schedule/Order HbA1C Lab - Month 1: Schedule/Order Lipid Panel Lab - Evaluate for Referral to Pharmacy for Diabetes Medication Management - Evaluate for Referral to Endocrinology ([facility] only) - Month 3: Schedule/Order Urine Albumin Creatinine lab - Intake assessments completed: ADLs, Fall Risk, SDOH - Biannual PCP visit addressed - Annual Medicare Wellness visit addressed - Schedule Biannual PCP Appointment - Schedule Annual Wellness Visit - Month 1: Provide General Education: How to Contact Your Physician Team Disposition Based on neighborhood service center director, the following disposition is advised: Routed Primary Care Social Work Juli Carreon RN December 04, 2024 3:44 PM documented in this encounterPrem[facility]04-04-2025 NotePatient Outreach ([facility]) CHIO DENT JR. ([id number]) 1960 Date Time Provider Department 12/04/24 JULI CARREON [facility] During your visit today, we recorded the following information about you: Juli Carreon RN 12/04/2024 3:52 PM Signed CDM ENROLLMENT Provider Action / FYI: SW REFERRAL: Patient recently changed health care insurance from [employer] - wants to switch back but having difficulty doing so. Please discuss with patient and significant other Usha Patient identified by name and date of . Discussed care with patient and SO Usha. Patient recently discharged from [facility] for GIB ulcer. Currently has [facility]. Usha asking for assistance with changing health care insurance back to [employer] - patient changed to [employer] via phone - suggested SW consult Patient reports he needs new nebulizer [facility] them - encouraged follow up. Program Details Chronic Disease Management Status: Enrolled Effective Dates: 12/04/2024 - present Responsible Staff: Juli Carreon RN Support and Services: Hypertension, Chronic Obstructive Pulmonary Disease (COPD), Diabetes Assessments CDM Assessment No documentation this encounter ADLs Patients can perform the following activities without help: Dressing: Yes Bathing: Yes Doing laundry: Yes Climbing a flight of stairs: Yes Walking briskly: Yes Instrumental activities of daily living Do you drive a car?: No Do you need help from others to take care of things inside the house, for example: laundry, house cleaning, preparing meals?: Yes Did you have the help you needed?: Yes Do you need help from others with errands outside the house, for example: shopping for groceries or clothes, going medical appointments?: Yes Did you have the help you needed?: Yes Fall Risk One or more falls in the last year:: No Any near falls in the last year?: No Advised to use a cane or walker to get around safely:: No Feels unsteady when walking:: No Steadies self on furniture while walking at home:: No Worried about falling:: No Needs to push with hands when rising from a chair:: No Has trouble stepping up onto a curb:: No Often has to bella to the toilet:: No Has lost some feeling in feet:: Yes Takes medicine that makes him/her feel lightheaded or more tired than usual:: No Takes medicine to sleep or improve mood:: No SDOH Financial Resource Strain How hard is it for you to pay for the very basics like food, housing, medical care, and heating?: Not hard at all Housing Stability In the last 12 months, was there a time when you were not able to pay the mortgage or rent on time?: No In the past 12 months, how many times have you moved where you were living?: 0 At any time in the past 12 months, were you homeless or living in a jail (including now)?: No Transportation Needs In the past 12 months, has lack of transportation kept you from medical appointments or from getting medications?: No In the past 12 months, has lack of transportation kept you from meetings, work, or from getting things needed for daily living?: No Food Insecurity Within the past 12 months, you worried that your food would run out before you got the money to buy more.: Never true Within the past 12 months, the food you bought just didn't last and you didn't have money to get more.: Never true Utilities In the past 12 months has the [employer], oil, or water [employer] threatened to shut off services in your home?: No Tobacco Use Patient reports that he quit smoking about 3 years ago. His smoking use included cigarettes. He started smoking about 50 years ago. He has a 23.4 pack-year smoking history. His smokeless tobacco use includes chew. Interventions The following were addressed during this visit: - Initial enrollment outreach - Annual Pulmonology visit addressed - Schedule Annual COPD Pulmonology Appointment - HTN lab care gaps addressed - Month 3: Schedule/Order BMP Lab - Diabetes lab care gaps addressed - Month 1: Schedule/Order HbA1C Lab - Month 1: Schedule/Order Lipid Panel Lab - Evaluate for Referral to Pharmacy for Diabetes Medication Management - Evaluate for Referral to Endocrinology ([facility] only) - Month 3: Schedule/Order Urine Albumin Creatinine lab - Intake assessments completed: ADLs, Fall Risk, SDOH - Biannual PCP visit addressed - Annual Medicare Wellness visit addressed - Schedule Biannual PCP Appointment - Schedule Annual Wellness Visit - Month 1: Provide General Education: How to Contact Your Physician Team Disposition Based on neighborhood service center director, the following disposition is advised: Routed Primary Care Social Work Juli Carreon RN December 04, 2024 3:44 PM Allergies As of Date: 12/04/2024 Noted Allergy Reaction ASPIRIN 06/21/2010 8 - (more content not included)...[facility] 11-18-2024 History of Present illness Narrative* Marion Childress RT(R) - 11/18/2024 12:30 PM EDT Radiology Service Progress Note PATIENT NAME: Chio Dent Jr. DATE OF SERVICE: November 18, 2024 TIME: 12:22 PM PATIENT IDENTITY VERIFICATION COMPLETED USING TWO (2) IDENTIFIERS: Name and Date of confirmedby patient verbally. FALL SCREENING: Has the patient had 2 falls in the last year or 1 fall with injury or currently using an Ambulatory Assistive Device (Walker, Cane, Wheelchair, Crutches, etc.)? No PATIENT GENDER DATA: Assigned male at PATIENT RELEVANT IMPLANT DATA REVIEWED: Yes PATIENT PRESENTS WITH AN IMPLANTABLE OR ATTACHED BREWER HELPER: No RADIOLOGY DEPARTMENT: General X-ray: Exam(s) Completed: Chest X-Ray PERIPHERAL IV DATA: Not applicable SIGNED BY: RT Paulina(R) November 18, 2024 12:22 PM documented in this encounterPremier Health [facility]03-19-2025 NoteHNO ID: [id number] Author: MARION CHILDRESS RT(R) Service: ? Author Type: Automobile Accessories Installer Type: Progress Notes Filed: 11/18/2024 12:31 Note Text: Radiology Service Progress Note PATIENT NAME: Chio Dent Jr. DATE OF SERVICE: November 18, 2024 TIME: 12:22 PM PATIENT IDENTITY VERIFICATION COMPLETED USING TWO (2) IDENTIFIERS: Name and Date of confirmed by patient verbally. FALL SCREENING: Has the patient had 2 falls in the last year or 1 fall with injury or currently using an Ambulatory Assistive Device (Walker, Cane, Wheelchair, Crutches, etc.)? No PATIENT GENDER DATA: Assigned male at PATIENT RELEVANT IMPLANT DATA REVIEWED: Yes PATIENT PRESENTS WITH AN IMPLANTABLE OR ATTACHED BREWER HELPER: No RADIOLOGY DEPARTMENT: General X-ray: Exam(s) Completed: Chest X-Ray PERIPHERAL IV DATA: Not applicable SIGNED BY: RT Paulina(R) November 18, 2024 12:22 [facility]03-19-2025 NoteHNO ID: [id number] Author: ALEXEY MAYBERRY MD Service: ? Author Type: Physician Type: Progress Notes Filed: 11/18/2024 14:06 Note Text: This note was created using [employer]. Subjective Patient presents with: Fatigue Cough Shortness of Breath Chio Dent Jr. is a 64 year old male was here with his significant other. He was noted to be more fatigued, more dyspneic, and with more cough the past few days. No fever was noted. We discontinued quetiapine and while he was more alert today, he was reported as having episodes of depression, moodiness, and irritability. He was also noted to be tremulous. Lorazepam was taken for tremors but this was prescribed for anxiety. Significant other requested referral to Dr. Doreen Hartman for neurology. His medications needed renewed. He just saw [facility], and [place] [facility]. Review of Systems Constitutional: Negative for chills, diaphoresis and fever. HENT: Negative for congestion and sore throat. Respiratory: Positive for cough, shortness of breath and wheezing. Cardiovascular: Negative for chest pain, palpitations and leg swelling. Gastrointestinal: Negative for abdominal pain, constipation and diarrhea. Genitourinary: Negative for difficulty urinating. Musculoskeletal: Positive for back pain. Neurological: Negative for dizziness and headaches. Psychiatric/Behavioral: Positive for dysphoric mood. 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 atorvastatin (LIPITOR) 20 mg tablet Take 1 tablet by mouth daily at bedtime. magnesium oxide (MAG-OX) 400 mg (241.3 mg magnesium) tablet Take 1 tablet by mouth once daily. guaiFENesin (MUCINEX) 1,200 mg Ta12 Take 1 tablet by mouth as needed. ketoconazole (NIZORAL) 2 % cream Apply to affected area once daily. furosemide (LASIX) 40 mg tablet Take 1 tablet by mouth once daily. albuterol (PROVENTIL) 2.5 mg /3 mL (0.083 %) nebulizer solution Use 3 mL via nebulizer every 4 hours as needed for wheezing/shortness of breath. glucagon 1 mg/mL injection Inject 1 mg intramuscularly as needed. polyethylene glycol 3350 17 gram packet Take 1 Packet by mouth two times a day. Dissolve dose in 4 - 8 ounces of liquid and take as directed. montelukast (SINGULAIR) 10 mg tablet Take 1 tablet by mouth once daily. apixaban (ELIQUIS) 5 mg tab(s) Take 1 tablet by mouth two times a day. LORazepam (ATIVAN) 0.5 mg Take 1 tablet by mouth three times a day as needed (anxiety) for up to 30 days. QUEtiapine (SEROQUEL) 25 mg tablet Take 1 tablet by mouth daily at bedtime. ipratropium-albuterol (DUONEB) 0.5 mg-3 mg(2.5 mg base)/3 mL nebu Inhale 3 mL as instructed every 6 hours as needed for wheezing/shortness of breath. gabapentin (NEURONTIN) 800 mg tablet Take 1 tablet by mouth three times a day. [facility] medication. buPROPion SR (WELLBUTRIN SR) 150 mg 12 hr tablet Take 1 tablet by mouth two times a day. yafsiokslre-jykqrsfwa-tiuqcwfs (TRELEGY ELLIPTA) 200-62.5-25 mcg inhalation powder Inhale 1 Puff as instructed once daily. [facility]. pantoprazole DR (PROTONIX) 40 mg tablet Take 1 tablet by mouth two times a day. predniSONE (DELTASONE) 20 mg tablet Take 1 tablet by mouth once daily for 5 days. triamcinolone acetonide (KENALOG) 0.1 % cream Apply 1 application to affected area once daily as needed. No current facility-administered medications for this visit. Objective BP 110/78 (BP Site: Left Arm, BP Position: Sitting, BP Cuff Size: Large Adult) Pulse 92 Temp 36.1 ?C (97 ?F) (Temporal) Resp 18 Wt 67.7 kg (149 lb 4 oz) SpO2 95% BMI 24.84 kg/m? Physical Exam Constitutional: General: He is not in acute distress. Appearance: He is not diaphoretic. HENT: Head: Normocephalic. Eyes: Extraocular Movements: Extraocular movements (more content not included)... [facility]03-19-2025 History of Present illness Narrative* Alexey Mayberry MD - 11/18/2024 11:39 AM EDT This note was created using NoteWriter. Subjective Patient presents with: Fatigue Cough Shortness of Breath Chio Dent Jr. is a 64 year old male was here with his significant other. He was noted to be more fatigued, more dyspneic, and with more cough the past few days. No fever was noted. We discontinued quetiapine and while he was more alert today, he was reported as having episodes ofdepression, moodiness, and irritability. He was also noted to be tremulous. Lorazepam was taken fortremors but this was prescribed for anxiety. Significant other requested referral to Dr. Doreen Saunders neurology. His medications needed renewed. He just saw [facility], and [facility]. Review of Systems Constitutional: Negative for chills, diaphoresis and fever. HENT: Negative for congestion and sore throat. Respiratory: Positive for cough, shortness of breath and wheezing. Cardiovascular: Negative for chest pain, palpitations and leg swelling. Gastrointestinal: Negative for abdominal pain, constipation and diarrhea. Genitourinary: Negative for difficulty urinating. Musculoskeletal: Positive for back pain. Neurological: Negative for dizziness and headaches. Psychiatric/Behavioral: Positive for dysphoric mood. 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 atorvastatin (LIPITOR) 20 mg tablet Take 1 tablet by mouth daily at bedtime. magnesium oxide (MAG-OX) 400 mg (241.3 mg magnesium) tablet Take 1 tablet by mouth once daily. guaiFENesin (MUCINEX) 1,200 mg Ta12 Take 1 tablet by mouth as needed. ketoconazole (NIZORAL) 2 % cream Apply to affected area once daily. furosemide (LASIX) 40 mg tablet Take 1 tablet by mouth once daily. albuterol (PROVENTIL) 2.5 mg /3 mL (0.083 %) nebulizer solution Use 3 mL via nebulizer every 4 hours as needed for wheezing/shortness of breath. glucagon 1 mg/mL injection Inject 1 mg intramuscularly as needed. polyethylene glycol 3350 17 gram packet Take 1 Packet by mouth two times a day. Dissolve dose in 4 - 8 ounces of liquid and take as directed. montelukast (SINGULAIR) 10 mg tablet Take 1 tablet by mouth once daily. apixaban (ELIQUIS) 5 mg tab(s) Take 1 tablet by mouth two times a day. LORazepam (ATIVAN) 0.5 mg Take 1 tablet by mouth three times a day as needed (anxiety) for up to 30days. QUEtiapine (SEROQUEL) 25 mg tablet Take 1 tablet by mouth daily at bedtime. ipratropium-albuterol (DUONEB) 0.5 mg-3 mg(2.5 mg base)/3 mL nebu Inhale 3 mL as instructed every 6hours as needed for wheezing/shortness of breath. gabapentin (NEURONTIN) 800 mg tablet Take 1 tablet by mouth three times a day. VA medication. buPROPion SR (WELLBUTRIN SR) 150 mg 12 hr tablet Take 1 tablet by mouth two times a day. yrhjirxgmcu-lassudzdu-pubceesy (TRELEGY ELLIPTA) 200-62.5-25 mcg inhalation powder Inhale 1 Puff asinstructed once daily. [facility]. pantoprazole DR (PROTONIX) 40 mg tablet Take 1 tablet by mouth two times a day. predniSONE (DELTASONE) 20 mg tablet Take 1 tablet by mouth once daily for 5 days. triamcinolone acetonide (KENALOG) 0.1 % cream Apply 1 application to affected area once daily as needed. No current facility-administered medications for this visit. Objective BP 110/78 (BP Site: Left Arm, BP Position: Sitting, BP Cuff Size: Large Adult) Pulse 92 Temp 36.1 C (97 F) (Temporal) Resp 18 Wt 67.7 kg (149 lb 4 oz) SpO2 95% BMI 24.84 kg/m Physical Exam Constitutional: General: He is not in acute distress. Appearance: He is not diaphoretic. HENT: Head: Normocephalic. Eyes: Extraocular Movements: Extraocular movements intact. Conjunctiva/sclera: Conjunctivae normal. Cardiovascular: Rate and Rhythm: Normal rate and regular rhythm. Heart sounds: No murmur heard. No gallop. Pulmonary: Effort: No respiratory distress. Breath sounds: Examination of the right-lower field reveals wheezing, rhonchi and rales. Wheezing, rhonchi and rales present. Abdominal: Palpations: Abdomen is soft. Tenderness: There is no abdominal tenderness. Musculoskeletal: Right lower leg: No edema. Left lower leg: No edema. Neurological: General: No focal deficit present. Mental Status: He is alert. Mental status is at baseline. Motor: Weakness, tremor and abnormal muscle tone present. Gait: Gait normal. Comments: Intention tremors of hands and feet. He was ambulated with some assistance today. Psychiatric: Attention and Perception: Attention normal. Mood and Affect: Affect is flat. Speech: Speech is delayed. Behavior: Behavior is slowed. Assessment and Plan : 1. COPD exacerbation ([facility]) - ICD9: 491.21, ICD10: J44.1 (primary diagnosis) Further recommenad - XR CHEST 2V FRONTAL/LAT - IPRATROPIUM 0.5 MG-ALBUTEROL 3 MG (2.5 MG BASE)/3 ML NEBULIZATION SOLN - PREDNISONE 20 MG TABLET 2. Quadriparesis ([facility]) - ICD9: 344.00, ICD10: G82.50 - CONSULT TO NEUROLOGY 3. Subarachnoid hemorrhage (HCC) - ICD9: 430, ICD10: I60.9 - CONSULT TO NEUROLOGY 4. Anoxic encephalopathy due to cardiac arrest ([facility]) - ICD9: 348.1, 427.5, ICD10: G93.1, I46.9 - CONSULT TO NEUROLOGY 5. Major depressive disorder with psychotic features ([facility]) - ICD9: 296.24, ICD10: F32.3 Medications clarified, corrected. Limit lorazepam use. - LORAZEPAM 0.5 MG TABLET - QUETIAPINE 25 MG TABLET - BUPROPION HCL SR 150 MG TABLET,12 HR SUSTAINED-RELEASE 6. Multiple subsegmental pulmonary emboli without acute cor pulmonale (HCC) - ICD9: 415.19, ICD10: I26.94 Continue OACfor 6 months total. - APIXABAN 5 MG TABLET 7. Gastrointestinal hemorrhage, unspecified gastrointestinal hemorrhage type - ICD9: 578.9, ICD10: K92.2 To see GI tomorrow. - PANTOPRAZOLE 40 MG TABLET,DELAYED RELEASE Alexey Mayberry MD documented [facility] Telephone encounter Note * Telephone Encounter - Alexey Mayberry MD - 11/18/2024 8:21 AM EDT Patient's request for medication has been refused. Patient will be seen today. Requested Prescriptions Refused Prescriptions Disp Refills LORazepam (ATIVAN) 0.5 mg 21 tablet 0 Sig: Take 1 tablet by mouth three times a day as needed (anxiety) for up to 7 days. Refused By: ALEXEY MAYBERRY Reason for Refusal: Patient needs appointment [facility]03-19-2025 Miscellaneous Notes* Telephone Encounter - Alexey Mayberry MD - 11/18/2024 8:21 AM EDT Patient's request for medication has been refused. Patient will be seen today. Requested Prescriptions Refused Prescriptions Disp Refills LORazepam (ATIVAN) 0.5 mg 21 tablet 0 Sig: Take 1 tablet by mouth three times a day as needed (anxiety) for up to 7 days. Refused By: ALEXEY MAYBERRY Reason for Refusal: Patient needs appointment * Telephone Encounter - Holly Robbins LPN - 11/17/2024 1:41 PM EDT Pt's Last OV: 11/06/24 - Next scheduled appt: 12/09/24 Argenis weston nurse with [employer] calls on pt's behalf for the followin) pt would like a referral to neurology. Would like order to go to Dr. Shashank Hartman. With recent health issues pt would like to be seen for right-sided weakness and tremors. 2) Argenis reports pt need the following refills: -Wellbutrin 150 mg -Eliquis 5 mg-was stopped because of internal bleeding but Given Go ahead to restart. - Seroquel 25 mg - pt had stopped med but realized he Needed to take med because it helped. - Ativan - pt was not take but realized it helped with the Tremors Unable to tell if all the med requests were from pcp or another provider. Need provider to review. Call pt and spoke to pt and Usha and she reports that some of the meds were from [facility] 3) Per Argenis: pt is having increased fatigue, wheezing, SOB. The lowest PO was 89 but usually hasbeen 90 and above. Pt was around someone with pneumonia. Argenis is asking if wants to see pt. Called pt and spoke to pt and SO. Went over sx. Appt scheduled for 11/18/24 with pcp. Holly Robbins LPN documented in this encounterPrem[facility] Telephone encounter Note * Telephone Encounter - Holly Robbins LPN - 11/17/2024 1:41 PM EDT Pt's Last OV: 11/06/24 - Next scheduled appt: 12/09/24 Argenis weston nurse rodger Pelletier calls on pt's behalf for the followin) pt would like a referral to neurology. Would like order to go to Dr. Shashank Hartman. With recent health issues pt would like to be seen for right-sided weakness and tremors. 2) Argenis reports pt need the following refills: -Wellbutrin 150 mg -Eliquis 5 mg-was stopped because of internal bleeding but Given Go ahead to restart. - Seroquel 25 mg - pt had stopped med but realized he Needed to take med because it helped. - Ativan - pt was not take but realized it helped with the Tremors Unable to tell if all the med requests were from pcp or another provider. Need provider to review. Call pt and spoke to pt and Usha and she reports that some of the meds were from [facility] 3) Per Argenis: pt is having increased fatigue, wheezing, SOB. The lowest PO was 89 but usually hasbeen 90 and above. Pt was around someone with pneumonia. Argenis is asking if wants to see pt. Called pt and spoke to pt and SO. Went over sx. Appt scheduled for 11/18/24 with pcp. Holly Robbins LPN [facility]03-17-2025 Telephone encounter Note* Telephone Encounter - Radha Lucas - 11/16/2024 10:51 AM EDT Patient reviewed for Population Health Medication Adherence Pended the following prescription(s) for review. Requested Prescriptions Pending Prescriptions Disp Refills atorvastatin (LIPITOR) 20 mg tablet 90 tablet 3 Sig: Take 1 tablet by mouth daily at bedtime. Future Appointments Date Time Provider Department Center 12/09/2024 10:40 AM [facility] 1:40 PM Alexey Mayberry MD [facility] Please review and refill if appropriate. Thank you. Radha Lucas November 16, 2024 10:51 AM [facility]03-17-2025 Miscellaneous Notes* Telephone Encounter - Radha Lucas - 11/16/2024 10:51 AM EDT Patient reviewed for Population Health Medication Adherence Pended the following prescription(s) for review. Requested Prescriptions Pending Prescriptions Disp Refills atorvastatin (LIPITOR) 20 mg tablet 90 tablet 3 Sig: Take 1 tablet by mouth daily at bedtime. Future Appointments Date Time Provider Department Center 12/09/2024 10:40 AM [facility] 1:40 PM [facility] Please review and refill if appropriate. Thank you. Radha Lucas November 16, 2024 10:51 AM documented in this encounterPrem[facility]03-[facility]-2025 NoteHNO ID: [id number] Author: ?, ?, ? Service: ? Author Type: ? Type: Progress Notes Filed: 11/16/2024 10:51 Note Text: Patient is identified through a medication adherence outreach initiative based on pharmacy claims data from: [employer] Medication Adherence Category: Statins First Review Attribution Status: Correct Attribution Medication(s) Atorvastatin 20 mg Medication Status per portal/Epic Reconcile Dispense: Not filled - Outreach patient Medication Status per Profile Review: No issues per profile review Patient appropriate for outreach? No Reason patient not appropriate for outreach: Pended for PCP [facility] History of Present illness Narrative* Radha Lucas - 11/16/2024 10:50 AM EDT Patient is identified through a medication adherence outreach initiative based on pharmacy claims data from: [employer] Medication Adherence Category: Statins First Review Attribution Status: Correct Attribution Medication(s) Atorvastatin 20 mg Medication Status per portal/Epic Reconcile Dispense: Not filled - Outreach patient Medication Status per Profile Review: No issues per profile review Patient appropriate for outreach? No Reason patient not appropriate for outreach: Pended for PCP Radha Lucas [facility] Team documented in this encounterPrem[facility]03-[facility]25 NotePatient Outreach (PHPOHE) CHIO DENT JR. ([id number]) 1960 M Date Time Provider Department 11/16/24 ALEXEY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 discontinued? No Do you have any questions about getting or taking your medications? No Your discharge instructions/After visit Summary (AVS) are important in guiding you through the recovery process. Is there anything I might help you understand? No Do you have all the necessary equipment and supplies at home? Yes Medical records from recent hospitalization: Placed for provider to review Pt also has [facility]03-03-2025 History of Present illness Narrative* Phyllis Saleem LPN - 11/02/2024 3:44 PM EST TRANSITION CARE MANAGEMENT (TCM) INITIAL CONTACT Financial Analyst Outreach Provider Action/FYI: TCM Initial contact with patient post discharge, spoke to patient. Patient identified by name and . TRANSITION CARE MANAGEMENT INITIAL OUTREACH DOCUMENTATION: 11/02/2024 Date of Outreach: Outreach Attempt 1: Contact Not Made Date of Discharge 10/31/2024 SUMMARY: -Pt discharged from [facility] on 10/31/24. -Admitted for: GI bleed Do you have a hospital follow up appointment with your PCP? Appointment on 11/06/24 with pcp. Yes. Remind patient of appointment date, time, and location. If not within 14 calendar days of discharge - please reschedule accordingly. MEDICATIONS: Many patients have questions or concerns about their medications once they are home. Were you prescribed any new medications? Yes Pantoprazole 40mg one by mouth daily Were you told to hold any medications? No Were any of your medications discontinued? No Do you have any questions about getting or taking your medications? No Your discharge instructions/After visit Summary (AVS) are important in guiding you through the recovery process. Is there anything I might help you understand? No Do you have all the necessary equipment and supplies at home? Yes Medical records from recent hospitalization: Placed for provider to review Pt also has [facility] documented in this encounterPrem[facility]03-[facility] Telephone encounter Note * Telephone Encounter - Dixon Dixon DO - 11/02/2024 7:27 AM EST Alexey, Just a phone note to let you know that I was called by home care regarding your patient Chio who required verbal okay for home health care management. All the best Dixon , deputy coroner investigator SaturdayNovember 01 [facility] Work Phone: [phone]) 845-299403-03-2025 Miscellaneous Notes* Telephone Encounter - Dixon Dixon DO - 11/02/2024 7:27 AM EST Alexey, Just a phone note to let you know that I was called by home care regarding your patient Chio who required verbal okay for home health care management. All the best Dixon , deputy coroner investigator SaturdayNovember 01 documented in this encounterPrem[facility]03-[facility]-2025 NotePatient Outreach (INTMWS) CHIO DENT JR. ([id number]) 1960 M Date Time Provider Department 11/02/24 ALEXEY MAYBERRY During your visit today, we recorded the following information about you: Phyllis Saleem LPN 11/02/2024 3:47 PM Signed TRANSITION CARE MANAGEMENT (TCM) INITIAL CONTACT Financial Analyst Outreach Provider Action/FYI: TCM Initial contact with patient post discharge, spoke to patient. Patient identified by name and . TRANSITION CARE MANAGEMENT INITIAL OUTREACH DOCUMENTATION: 11/02/2024 Date of Outreach: Outreach Attempt 1: Contact Not Made Date of Discharge 10/31/2024 SUMMARY: -Pt discharged from [facility] on 10/31/24. -Admitted for: GI bleed Do you have a hospital follow up appointment with your PCP? Appointment on 11/06/24 with pcp. Yes. Remind patient of appointment date, time, and location. If not within 14 calendar days of discharge - please reschedule accordingly. MEDICATIONS: Many patients have questions or concerns about their medications once they are home. Were you prescribed any new medications? Yes Pantoprazole 40mg one by mouth daily Were you told to hold any medications? No Were any of your medications discontinued? No Do you have any questions about getting or taking your medications? No Your discharge instructions/After visit Summary (AVS) are important in guiding you through the recovery process. Is there anything I might help you understand? No Do you have all the necessary equipment and supplies at home? Yes Medical records from recent hospitalization: Placed for provider to review Pt also has [facility] Allergies As of Date: 11/02/2024 Noted Allergy Reaction ASPIRIN 06/21/2010 8 - [...] ragweed (April, May and June) Date Reviewed: 06/23/2024 Reviewed by: Molly Maddox APRN.FELLING MACHINE OPERATOR - Fully Assessed Reason for Visit: Transition Of Care [4074] Prescriptions as of 11/02/2024 - albuterol (PROVENTIL) 2.5 mg /3 mL (0.083 %) nebulizer solution Use 3 mL via nebulizer every 4 hours as needed for wheezing/shortness of breath. - atorvastatin (LIPITOR) 20 mg tablet Take 1 tablet by mouth daily at bedtime. - gabapentin (NEURONTIN) 300 mg capsule 1 capsule by ORAL/FEEDING TUBE route every 8 hours for 7 days. - acetaminophen (TYLENOL) 650 mg/20.3 mL soln 20.3 mL by ORAL/FEEDING TUBE route every 6 hours as needed for pain or fever (specify temp.) (Temp greater than 38.3). Do not exceed 5 doses in 24 hours. - budesonide (PULMICORT) 0.5 mg/2 mL nebulizer solution Use 2 mL via nebulizer two times a day. - dextrose (TRUEPLUS) 15 gram/32 mL oral gel Take 32 mL by mouth as needed. - glucagon 1 mg/mL injection Inject 1 mg intramuscularly as needed. - dextrose 10% Inject 125 mL intravenously as needed (low blood sugar). - enoxaparin (LOVENOX) 40 mg/0.4 mL Inject 0.4 mL subcutaneously every 24 hours. - ipratropium-albuterol (DUONEB) 0.5 mg-3 mg(2.5 mg base)/3 mL nebu Inhale 3 mL as instructed every 4 hours. - lidocaine (SALONPAS) 4 % patch Apply 1 Patch as directed once daily. - polyethylene glycol 3350 17 gram packet Take 1 Packet by mouth two times a day. Dissolve dose in 4 - 8 ounces of liquid and take as directed. - senna-docusate (SENNA-S) 8.6-50 mg per tablet 2 tablets by ORAL/FEEDING TUBE route two times a day. - montelukast (SINGULAIR) 10 mg tablet Take 1 tablet by mouth once daily. Problem List As Of Date 11/02/2024 Noted Resolved History of [place] (myocardial infarction) [I25.2] 06/02/2008 03/21/2017 Hyperlipidemia [E78.5] Asthma [J45.909] COPD exacerbation (HCC) [J44.1] Former smoker [Z87.891] 06/02/2024 Hypertension [I10] Erectile dysfunction [N52.9] 11/09/2015 GERD (gastroesophageal reflux disease) [K21.9] 11/09/2015 Nasal polyposis [J33.9] 11/09/2015 Hematuria [R31.9] 09/27/2011 11/09/2015 Lesion of bladder [N32.9] 09/27/2011 11/09/2015 Coronary artery disease involving [place] heart *03/21/2017 Seasonal allergic rhinitis due to fungal spores*01/14/2018 Allergic rhinitis due to dust mite [J30.89] 01/14/2018 Seasonal allergic rhinitis due to pollen [J30.1]01/14/2018 Bronchiectasis with acute exacerbation (HCC) [J*07/12/2021 Dysphagia [R13.10] 01/18/2022 Current smoker [F17.200] 06/02/2024 Other osteoporosis without current pathological*06/02/2024 Cardiac arrest (HCC) [I46.9] 06/04/2024 10/05/2024 Acute on chronic respiratory failure with hypox*06/04/2024 Traumatic pneumotho (more content not included)...[facility] 10-31-2024 [facility]02-26-2025 Evaluation note* Diagnosis Onset Date Resolution Status Admit Date Acute upper GI bleeding acute F ebruary 2024 5:21pm PEG (percutaneous endoscopic gastrostomy) status acute October 5:21pm COPD (chronic obstructive pulmonary disease) chronic October 5:21pm Esophagitis determined by endoscopy acute November 19, 2024 1:39pm Gastric ulcer acute November 19, 2024 1:39pm Lung nodules acute January 27 9:52am COPD (chronic obstructive pulmonary disease) chronic January 27 9:52am Physical debility chronic December 9:52am Pulmonary emboli chronic December 9:52am Acute upper GI bleeding acute 2024 12:23pm Gastric ulcer acute February 09, 2025 12:23pm [facility] Work Phone: 1(623) 850-910902-24-2025 Telephone encounter Note* Telephone Encounter - Phyllis Saleem LPN - 10/26/2024 9:21 AM EST Fax rec'd from [place] asking for notes and labs. This was faxed to [facility] medical records release. [facility]02-24-2025 Miscellaneous Notes* Telephone Encounter - Phyllis Saleem LPN - 10/26/2024 9:21 AM EST Fax rec'd [facility] asking for notes and labs. This was faxed to [facility] medical records release. documented in this encounter[facility] Telephone encounter Note * Telephone Encounter - Natalia Aguilar OCCA - 10/19/2024 5:00 PM EST TC to Becca who verbalized understanding of providers message below. FEROZ Chavez [facility]02-17-2025 Miscellaneous Notes* Telephone Encounter - Natalia Aguilar OCCA - 10/19/2024 5:00 PM EST TC to Becca who verbalized understanding of providers message below. FEROZ Chavez * Telephone Encounter - Alexey Mayberry MD - 10/19/2024 4:47 PM EST shelter for wound [facility], complex recovery. * Telephone Encounter - Holly Robbins LPN - 10/19/2024 2:54 PM EST Becca with [facility] calls to report pt is being discharged from [facility] with HH orders for PT and OT. Becca reports pt's trach has been removed and pt is going on / to get feeding tube removed. Becca reports that pt has some skin tears on his arms but Nursing was not ordered. Becca is requesting orders for Nursing also. Call Becca with provider's VO for HC. Holly Robbins LPN documented in this [facility]Prem[facility] Telephone encounter Note * Telephone Encounter - Alexey Mayberry MD - 10/19/2024 4:47 PM EST shelter for wound care, complex recovery. [facility]02-17-2025 Telephone encounter Note* Telephone Encounter - Holly Robbins LPN - 10/19/2024 2:54 PM EST Becca with [facility] calls to report pt is being discharged from [facility] with HH orders for PT and OT. Becca reports pt's trach has been removed and pt is going on 11/05 to get feeding tube removed. Becca reports that pt has some skin tears on his arms but Nursing was not ordered. Becca is requesting orders for Nursing also. Call Becca with provider's VO for HC. Holly Robbins LPN [facility]02-11-2025 Evaluation note* Diagnosis Onset Date Resolution Status Admit Date Paroxysmal atrial tachycardia chroni c October 13, 2024 1:03pm Paroxysmal ventricular tachycardia chronic October 13 025 1:03pm Premature ventricular contraction chronic October 13 025 1:03pm Atherosclerotic heart 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 without angina pectoris inactive October 13, 2024 1:03pm HLD (hyperlipidemia) inactive 2024 1:03pm Presence of stent in coronar y artery June, inactive October 13 025 1:03pm PEG (percutaneous endoscopic gastrostomy) status acute October 12:54pm Smoking greater than 40 pack years acute October 20 025 10:08am COPD (chronic obstructive pulmonary disease) chronic October 10:08am Physical debility chronic Februar y 2024 10:08am Pulmonary emboli chronic October 20, 2024 10:08am Tracheostomy in place inactive Feb ruary 2024 10:08am Acute upper GI bleeding acute F ebruary 2024 5:21pm PEG (percutaneous endoscopic gastrostomy) status acute October 5:21pm COPD (chronic obstructive pulmonary disease) chronic October 5:21pm Esophagitis determined by endoscopy acute November 19, 2024 1:39pm Gastric ulcer acute November 19, 2024 1:39pm Lung nodules acute January 27 9:52am COPD (chronic obstructive pulmonary disease) chronic January 27 9:52am Physical debility chronic December 9:52am Pulmonary emboli chronic December 9:52am Acute upper GI bleeding acute J 2024 12:23pm Gastric ulcer acute February 09, 2025 12:23pm [facility] Work Phone: 1(275) 571-945802-06-2025 NoteHNO ID: [id number] Author: GENARO RODRIGUEZ MA Service: ? Author Type: Financial Analyst Type: Progress Notes Filed: 10/08/2024 09:47 Note Text: POPULATION HEALTH NAVIGATION OUTREACH Action/FYI Care gaps due: DIABETIC RETINAL EXAM KED No answer, lvm, sent mcm. Reason for Outreach Care Gap/HCC or Scheduling Wellness Visits Care Gaps due: Diabetic Eye Exam KED Patient Contacted: Unable or unnecessary to reach patient: Left message [employer] message sent Navigation Signature: Genaro Rodriguez MA October 08, 2024 9:46 [facility]02-06-2025 History of Present illness Narrative* Genaro Rodriguez MA - 10/08/2024 9:45 AM EST POPULATION HEALTH NAVIGATION OUTREACH Action/FYI Care gaps due: DIABETIC RETINAL EXAM KED No answer, lvm, sent mcm. Reason for Outreach Care Gap/HCC or Scheduling Wellness Visits Care Gaps due: Diabetic Eye Exam KED Patient Contacted: Unable or unnecessary to reach patient: Left message [employer] message sent Navigation Signature: Genaro Rodriguez MA October 08, 2024 9:46 AM documented in this encounterPrem[facility] NotePatient Outreach (NETNAV) CHIO DENT JR. ([id number]) 1960 M Date Time Provider Department 10/08/24 GENARO RODRIGUEZ During your visit today, we recorded the following information about you: Genaro Rodriguez MA 10/08/2024 9:47 AM Signed POPULATION HEALTH NAVIGATION OUTREACH Action/FYI Care gaps due: DIABETIC RETINAL EXAM KED No answer, lvm, sent mcm. Reason for Outreach Care Gap/HCC or Scheduling Wellness Visits Care Gaps due: Diabetic Eye Exam KED Patient Contacted: Unable or unnecessary to reach patient: Left message [employer] message sent Navigation Signature: Genaro Rodriguez MA October 08, 2024 9:46 AM Allergies As of Date: 10/08/2024 Noted Allergy Reaction ASPIRIN 06/21/2010 8 - [...] ragweed (April, May and June) Date Reviewed: 06/23/2024 Reviewed by: Molly Maddox APRN.FELLING MACHINE OPERATOR - Fully Assessed Reason for Visit: Population Health Navigation Outreach [3910] Cmt: [employer] high risk attempt 3 Prescriptions as of 10/08/2024 - albuterol (PROVENTIL) 2.5 mg /3 mL (0.083 %) nebulizer solution Use 3 mL via nebulizer every 4 hours as needed for wheezing/shortness of breath. - atorvastatin (LIPITOR) 20 mg tablet Take 1 tablet by mouth daily at bedtime. - gabapentin (NEURONTIN) 300 mg capsule 1 capsule by ORAL/FEEDING TUBE route every 8 hours for 7 days. - acetaminophen (TYLENOL) 650 mg/20.3 mL soln 20.3 mL by ORAL/FEEDING TUBE route every 6 hours as needed for pain or fever (specify temp.) (Temp greater than 38.3). Do not exceed 5 doses in 24 hours. - budesonide (PULMICORT) 0.5 mg/2 mL nebulizer solution Use 2 mL via nebulizer two times a day. - dextrose (TRUEPLUS) 15 gram/32 mL oral gel Take 32 mL by mouth as needed. - glucagon 1 mg/mL injection Inject 1 mg intramuscularly as needed. - dextrose 10% Inject 125 mL intravenously as needed (low blood sugar). - enoxaparin (LOVENOX) 40 mg/0.4 mL Inject 0.4 mL subcutaneously every 24 hours. - ipratropium-albuterol (DUONEB) 0.5 mg-3 mg(2.5 mg base)/3 mL nebu Inhale 3 mL as instructed every 4 hours. - lidocaine (SALONPAS) 4 % patch Apply 1 Patch as directed once daily. - polyethylene glycol 3350 17 gram packet Take 1 Packet by mouth two times a day. Dissolve dose in 4 - 8 ounces of liquid and take as directed. - senna-docusate (SENNA-S) 8.6-50 mg per tablet 2 tablets by ORAL/FEEDING TUBE route two times a day. - montelukast (SINGULAIR) 10 mg tablet Take 1 tablet by mouth once daily. Problem List As Of Date 10/08/2024 Noted Resolved History of [place] (myocardial infarction) [I25.2] 06/02/2008 03/21/2017 Hyperlipidemia [E78.5] Asthma [J45.909] COPD exacerbation (HCC) [J44.1] Former smoker [Z87.891] 06/02/2024 Hypertension [I10] Erectile dysfunction [N52.9] 11/09/2015 GERD (gastroesophageal reflux disease) [K21.9] 11/09/2015 Nasal polyposis [J33.9] 11/09/2015 Hematuria [R31.9] 09/27/2011 11/09/2015 Lesion of bladder [N32.9] 09/27/2011 11/09/2015 Coronary artery disease involving [place] heart *03/21/2017 Seasonal allergic rhinitis due to fungal spores*01/14/2018 Allergic rhinitis due to dust mite [J30.89] 01/14/2018 Seasonal allergic rhinitis due to pollen [J30.1]01/14/2018 Bronchiectasis with acute exacerbation (HCC) [J*07/12/2021 Dysphagia [R13.10] 01/18/2022 Current smoker [F17.200] 06/02/2024 Other osteoporosis without current pathological*06/02/2024 Cardiac arrest (HCC) [I46.9] 06/04/2024 10/05/2024 Acute on chronic respiratory failure with hypox*06/04/2024 Traumatic pneumothorax [S27.0XXA] 06/04/2024 Pressure injury of deep tissue of sacral region*06/11/2024 Pneumothorax on right [J93.9] 06/15/2024 Multiple closed fractures of ribs of right side*06/15/2024 Respiratory arrest (HCC) [R09.2] 06/15/2024 Subcutaneous emphysema (HCC) [T79.7XXA] 06/15/2024 Leukocytosis [D72.829] 06/15/2024 Bacterial pneumonia [J15.9] 06/15/2024 Type 2 diabetes mellitus without complication, *06/15/2024 Hypernatremia [E87.0] 06/15/2024 Malnutrition of moderate degree (HCC) [E44.0] 06/16/2024 Subarachnoid hemorrhage (HCC) [I60.9] 06/17/2024 Quadriparesis (HCC) [G82.50] 06/18/2024 Abnormal brain MRI [R90.89] 06/18/2024 Encounter Status:Closed by GENARO RODRIGUEZ on 10/08/24[facility] 10-06-2024 Evaluation note* Diagnosis Onset Date Resolution Status Admit Date Physical debility acute ua2024 12:52pm COPD (chronic obstructive pulmonary disease) chronic October 06, 2024 12:52pm Pulmonary emboli chronic October 06, 2024 12:52pm Tracheostomy in place inactive Oct 12:52pm Paroxysmal atrial tachycardia chroni c October 13, 2024 1:03pm Paroxysmal ventricular tachycardia chronic October 13 1:03pm Premature ventricular contraction chronic October 13 1:03pm Atherosclerotic heart 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 without angina pectoris inactive October 13, 2024 1:03pm HLD (hyperlipidemia) inactive ua2024 1:03pm Presence of stent in coronar y artery June, inactive October 13 1:03pm PEG (percutaneous endoscopic gastrostomy) status acute October 12:54pm Physical debility acute 2024 10:08am Smoking greater than 40 pack years acute October 20 10:08am COPD (chronic obstructive pulmonary disease) chronic October 10:08am Pulmonary emboli chronic October 20, 2024 10:08am Tracheostomy in place inactive Oct ru2024 10:08am Acute upper GI bleeding acute F ebruary 2024 5:21pm PEG (percutaneous endoscopic gastrostomy) status acute October 5:21pm COPD (chronic obstructive pulmonary disease) chronic October 5:21pm Esophagitis determined by endoscopy acute November 19, 2024 1:39pm Gastric ulcer acute November 19, 2024 1:39pm [facility] Work Phone: [phone]) 343-707902-03-2025 NoteHNO ID: [id number] Author: GENARO RODRIGUEZ MA Service: ? Author Type: Financial Analyst Type: Progress Notes Filed: 10/05/2024 10:48 Note Text: POPULATION HEALTH NAVIGATION OUTREACH Action/I Care gaps due: DIABETIC RETINAL EXAM KED No answer, lvm, sent [employer] message Reason for Outreach Care Gap/HCC or Scheduling Wellness Visits Care Gaps due: Diabetic Eye Exam KED Patient Contacted: Unable or unnecessary to reach patient: Left message MyChart message sent Navigation Signature: Genaro Rodriguez MA October 05, 2024 10:47 [facility]02-03-2025 History of Present illness Narrative* Genaro Rodriguez MA - 10/05/2024 10:46 AM EST POPULATION HEALTH NAVIGATION OUTREACH Action/FYI Care gaps due: DIABETIC RETINAL EXAM KED No answer, lvm, sent [employer] message Reason for Outreach Care Gap/HCC or Scheduling Wellness Visits Care Gaps due: Diabetic Eye Exam KED Patient Contacted: Unable or unnecessary to reach patient: Left message [employer] message sent Navigation Signature: Genaro Rodriguez MA October 05, 2024 10:47 AM documented in this encounterPremier Health [facility] NotePatient Outreach (NETNAV) CHIO DENT JR. ([id number]) 1960 M Date Time Provider Department 10/05/24 GENARO RODRIGUEZ NETSHIKHAV During your visit today, we recorded the following information about you: Genaro Rodriguez MA 10/05/2024 10:48 AM Signed [facility] HEALTH NAVIGATION OUTREACH Action/FYI Care gaps due: DIABETIC RETINAL EXAM KED No answer, lvm, sent Da[employer] message Reason for Outreach Care Gap/HCC or Scheduling Wellness Visits Care Gaps due: Diabetic Eye Exam KED Patient Contacted: Unable or unnecessary to reach patient: Left message [employer] message sent Navigation Signature: Genaro Rodriguez MA October 05, 2024 10:47 AM Allergies As of Date: 10/05/2024 Noted Allergy Reaction ASPIRIN 06/21/2010 8 - [...] ragweed (April, May and June) Date Reviewed: 06/23/2024 Reviewed by: Molly Maddox APRN.FELLING MACHINE OPERATOR - Fully Assessed Reason for Visit: Population Health Navigation Outreach [3910] Cmt: [employer] high risk attempt 2 Prescriptions as of 10/05/2024 - albuterol (PROVENTIL) 2.5 mg /3 mL (0.083 %) nebulizer solution Use 3 mL via nebulizer every 4 hours as needed for wheezing/shortness of breath. - atorvastatin (LIPITOR) 20 mg tablet Take 1 tablet by mouth daily at bedtime. - gabapentin (NEURONTIN) 300 mg capsule 1 capsule by ORAL/FEEDING TUBE route every 8 hours for 7 days. - acetaminophen (TYLENOL) 650 mg/20.3 mL soln 20.3 mL by ORAL/FEEDING TUBE route every 6 hours as needed for pain or fever (specify temp.) (Temp greater than 38.3). Do not exceed 5 doses in 24 hours. - budesonide (PULMICORT) 0.5 mg/2 mL nebulizer solution Use 2 mL via nebulizer two times a day. - dextrose (TRUEPLUS) 15 gram/32 mL oral gel Take 32 mL by mouth as needed. - glucagon 1 mg/mL injection Inject 1 mg intramuscularly as needed. - dextrose 10% Inject 125 mL intravenously as needed (low blood sugar). - enoxaparin (LOVENOX) 40 mg/0.4 mL Inject 0.4 mL subcutaneously every 24 hours. - ipratropium-albuterol (DUONEB) 0.5 mg-3 mg(2.5 mg base)/3 mL nebu Inhale 3 mL as instructed every 4 hours. - lidocaine (SALONPAS) 4 % patch Apply 1 Patch as directed once daily. - polyethylene glycol 3350 17 gram packet Take 1 Packet by mouth two times a day. Dissolve dose in 4 - 8 ounces of liquid and take as directed. - senna-docusate (SENNA-S) 8.6-50 mg per tablet 2 tablets by ORAL/FEEDING TUBE route two times a day. - montelukast (SINGULAIR) 10 mg tablet Take 1 tablet by mouth once daily. Problem List As Of Date 10/05/2024 Noted Resolved History of IL (myocardial infarction) [I25.2] 06/02/2008 03/21/2017 Hyperlipidemia [E78.5] Asthma [J45.909] COPD exacerbation (HCC) [J44.1] Former smoker [Z87.891] 06/02/2024 Hypertension [I10] Erectile dysfunction [N52.9] 11/09/2015 GERD (gastroesophageal reflux disease) [K21.9] 11/09/2015 Nasal polyposis [J33.9] 11/09/2015 Hematuria [R31.9] 09/27/2011 11/09/2015 Lesion of bladder [N32.9] 09/27/2011 11/09/2015 Coronary artery disease involving [place] heart *03/21/2017 Seasonal allergic rhinitis due to fungal spores*01/14/2018 Allergic rhinitis due to dust mite [J30.89] 01/14/2018 Seasonal allergic rhinitis due to pollen [J30.1]01/14/2018 Bronchiectasis with acute exacerbation (HCC) [J*07/12/2021 Dysphagia [R13.10] 01/18/2022 Current smoker [F17.200] 06/02/2024 Other osteoporosis without current pathological*06/02/2024 Cardiac arrest (HCC) [I46.9] 06/04/2024 10/05/2024 Acute on chronic respiratory failure with hypox*06/04/2024 Traumatic pneumothorax [S27.0XXA] 06/04/2024 Pressure injury of deep tissue of sacral region*06/11/2024 Pneumothorax on right [J93.9] 06/15/2024 Multiple closed fractures of ribs of right side*06/15/2024 Respiratory arrest (HCC) [R09.2] 06/15/2024 Subcutaneous emphysema (HCC) [T79.7XXA] 06/15/2024 Leukocytosis [D72.829] 06/15/2024 Bacterial pneumonia [J15.9] 06/15/2024 Type 2 diabetes mellitus without complication, *06/15/2024 Hypernatremia [E87.0] 06/15/2024 Malnutrition of moderate degree (HCC) [E44.0] 06/16/2024 Subarachnoid hemorrhage (HCC) [I60.9] 06/17/2024 Quadriparesis (HCC) [G82.50] 06/18/2024 Abnormal brain MRI [R90.89] 06/18/2024 Encounter Status:Closed by GENARO RODRIGUEZ on 10/05/24[facility] 09-29-2024 NoteHNO ID: [id number] Author: GENARO RODRIGUEZ MA Service: ? Author Type: Financial Analyst Type: Progress Notes Filed: 09/29/2024 12:36 Note Text: POPULATION HEALTH NAVIGATION OUTREACH Action/FYI Care gaps due: Diabetic Eye Exam KED ( lab work) No answer, lvm, sent Daio message. Reason for Outreach Care Gap/HCC or Scheduling Wellness Visits Care Gaps due: Diabetic Eye Exam KED Patient Contacted: Unable or unnecessary to reach patient: Left message [employer] message sent Updated appointment notes Navigation Signature: Genaro Rodriguez MA September 29, 2024 12:36 [facility]01-28-2025 History of Present illness Narrative* Genaro Rodriguez MA - 09/29/2024 12:36 PM EST POPULATION HEALTH NAVIGATION OUTREACH Action/FYI Care gaps due: Diabetic Eye Exam KED ( lab work) No answer, lvm, sent mc message. Reason for Outreach Care Gap/HCC or Scheduling Wellness Visits Care Gaps due: Diabetic Eye Exam KED Patient Contacted: Unable or unnecessary to reach patient: Left message [employer] message sent Updated appointment notes Navigation Signature: Genaro Rodriguez MA September 29, 2024 12:36 PM documented in this encounterPrem[facility] Health [facility] NotePatient Outreach (NETNAV) CHIO DENT JR. ([id number]) 1960 M Date Time Provider Department 09/29/24 GENARO RODRIGUEZ During your visit today, we recorded the following information about you: Genaro Rodriguez MA 09/29/2024 12:36 PM Signed POPULATION HEALTH NAVIGATION OUTREACH Action/FYI Care gaps due: Diabetic Eye Exam KED ( lab work) No answer, lvm, sent [employer] message. Reason for Outreach Care Gap/HCC or Scheduling Wellness Visits Care Gaps due: Diabetic Eye Exam KED Patient Contacted: Unable or unnecessary to reach patient: Left message [employer] message sent Updated appointment notes Navigation Signature: Genaro Rodriguez MA September 29, 2024 12:36 PM Allergies As of Date: 09/29/2024 Noted Allergy Reaction ASPIRIN 06/21/2010 8 - [...] ragweed (April, May and June) Date Reviewed: 06/23/2024 Reviewed by: Molly Maddox APRN.FELLING MACHINE OPERATOR - Fully Assessed Reason for Visit: Population Health Navigation Outreach [3910] Cmt: [employer] high prioity attempt 1 Prescriptions as of 09/29/2024 - albuterol (PROVENTIL) 2.5 mg /3 mL (0.083 %) nebulizer solution Use 3 mL via nebulizer every 4 hours as needed for wheezing/shortness of breath. - atorvastatin (LIPITOR) 20 mg tablet Take 1 tablet by mouth daily at bedtime. - gabapentin (NEURONTIN) 300 mg capsule 1 capsule by ORAL/FEEDING TUBE route every 8 hours for 7 days. - acetaminophen (TYLENOL) 650 mg/20.3 mL soln 20.3 mL by ORAL/FEEDING TUBE route every 6 hours as needed for pain or fever (specify temp.) (Temp greater than 38.3). Do not exceed 5 doses in 24 hours. - budesonide (PULMICORT) 0.5 mg/2 mL nebulizer solution Use 2 mL via nebulizer two times a day. - dextrose (TRUEPLUS) 15 gram/32 mL oral gel Take 32 mL by mouth as needed. - glucagon 1 mg/mL injection Inject 1 mg intramuscularly as needed. - dextrose 10% Inject 125 mL intravenously as needed (low blood sugar). - enoxaparin (LOVENOX) 40 mg/0.4 mL Inject 0.4 mL subcutaneously every 24 hours. - ipratropium-albuterol (DUONEB) 0.5 mg-3 mg(2.5 mg base)/3 mL nebu Inhale 3 mL as instructed every 4 hours. - lidocaine (SALONPAS) 4 % patch Apply 1 Patch as directed once daily. - polyethylene glycol 3350 17 gram packet Take 1 Packet by mouth two times a day. Dissolve dose in 4 - 8 ounces of liquid and take as directed. - senna-docusate (SENNA-S) 8.6-50 mg per tablet 2 tablets by ORAL/FEEDING TUBE route two times a day. - montelukast (SINGULAIR) 10 mg tablet Take 1 tablet by mouth once daily. Problem List As Of Date 09/29/2024 Noted Resolved History of IL (myocardial infarction) [I25.2] 06/02/2008 03/21/2017 Hyperlipidemia [E78.5] Asthma [J45.909] COPD exacerbation (HCC) [J44.1] Former smoker [Z87.891] 06/02/2024 Hypertension [I10] Erectile dysfunction [N52.9] 11/09/2015 GERD (gastroesophageal reflux disease) [K21.9] 11/09/2015 Nasal polyposis [J33.9] 11/09/2015 Hematuria [R31.9] 09/27/2011 11/09/2015 Lesion of bladder [N32.9] 09/27/2011 11/09/2015 Coronary artery disease involving [place] heart *03/21/2017 Seasonal allergic rhinitis due to fungal spores*01/14/2018 Allergic rhinitis due to dust mite [J30.89] 01/14/2018 Seasonal allergic rhinitis due to pollen [J30.1]01/14/2018 Bronchiectasis with acute exacerbation (HCC) [J*07/12/2021 Dysphagia [R13.10] 01/18/2022 Current smoker [F17.200] 06/02/2024 Other osteoporosis without current pathological*06/02/2024 Cardiac arrest (HCC) [I46.9] 06/04/2024 Acute on chronic respiratory failure with hypox*06/04/2024 Traumatic pneumothorax [S27.0XXA] 06/04/2024 Pressure injury of deep tissue of sacral region*06/11/2024 Pneumothorax on right [J93.9] 06/15/2024 Multiple closed fractures of ribs of right side*06/15/2024 Respiratory arrest (HCC) [R09.2] 06/15/2024 Subcutaneous emphysema (HCC) [T79.7XXA] 06/15/2024 Leukocytosis [D72.829] 06/15/2024 Bacterial pneumonia [J15.9] 06/15/2024 Type 2 diabetes mellitus without complication, *06/15/2024 Hypernatremia [E87.0] 06/15/2024 Malnutrition of moderate degree (HCC) [E44.0] 06/16/2024 Subarachnoid hemorrhage (HCC) [I60.9] 06/17/2024 Quadriparesis (HCC) [G82.50] 06/18/2024 Abnormal brain MRI [R90.89] 06/18/2024 Encounter Status:Closed by GENARO RODRIGUEZ on 09/29/24[facility] 09-12-2024 [facility]01-10-2025 Evaluation note* Diagnosis Onset Date Resolution Status Admit Date Pneumonia inactive September 11, 2024 2:33pm Physical debility acute 2024 12:52pm COPD (chronic obstructive pulmonary disease) chronic October 06, 2024 12:52pm Pulmonary emboli chronic October 06, 2024 12:52pm Tracheostomy in place inactive Oct 12:52pm Paroxysmal atrial tachycardia chroni c October 13, 2024 1:03pm Paroxysmal ventricular tachycardia chronic October 13 025 1:03pm Premature ventricular contraction chronic October 13 025 1:03pm Atherosclerotic heart 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 without angina pectoris inactive October 13, 2024 1:03pm HLD (hyperlipidemia) inactive 2024 1:03pm Presence of stent in coronar y artery June, inactive October 13 025 1:03pm PEG (percutaneous endoscopic gastrostomy) status acute October 12:54pm Physical debility acute 2024 10:08am Smoking greater than 40 pack years acute October 20, 025 10:08am COPD (chronic obstructive pulmonary disease) chronic October 10:08am Pulmonary emboli chronic October 20, 2024 10:08am Tracheostomy in place inactive Fe ruary 2024 10:08am Acute upper GI bleeding acute F ebruary 2024 5:21pm PEG (percutaneous endoscopic gastrostomy) status acute October 5:21pm COPD (chronic obstructive pulmonary disease) chronic October 5:21pm Esophagitis determined by endoscopy acute November 19, 2024 1:39pm Gastric ulcer acute November 19, 2024 1:39pm [facility] Work Phone: 1(693) 886-617101-07-2025 NotePatient Outreach (INTMMN) CHIO DENT JR. ([id number]) 1960 M Date Time Provider Department 09/08/24 ALEXEY MAYBERRY INTMMN During your visit today, we recorded the following information about you: Allergies As of Date: 09/08/2024 Noted Allergy Reaction ASPIRIN 06/21/2010 8 - [...] ragweed (April, May and June) Date Reviewed: 06/23/2024 Reviewed by: Molly Maddox APRN.FELLING MACHINE OPERATOR - Fully Assessed Visit Diagnosis:Type 2 diabetes mellitus without complication, without long-term current use of insulin (HCC) [E11.9] Order(s):HEMOGLOBIN A1C [ETCAB9P] Order #: [id number] FUTURE ALBUMIN/CREATININE RATIO, URINE [SQUACR] Order #: [id number] FUTURE Prescriptions as of 09/11/2024 - albuterol (PROVENTIL) 2.5 mg /3 mL (0.083 %) nebulizer solution Use 3 mL via nebulizer every 4 hours as needed for wheezing/shortness of breath. - atorvastatin (LIPITOR) 20 mg tablet Take 1 tablet by mouth daily at bedtime. - gabapentin (NEURONTIN) 300 mg capsule 1 capsule by ORAL/FEEDING TUBE route every 8 hours for 7 days. - acetaminophen (TYLENOL) 650 mg/20.3 mL soln 20.3 mL by ORAL/FEEDING TUBE route every 6 hours as needed for pain or fever (specify temp.) (Temp greater than 38.3). Do not exceed 5 doses in 24 hours. - budesonide (PULMICORT) 0.5 mg/2 mL nebulizer solution Use 2 mL via nebulizer two times a day. - dextrose (TRUEPLUS) 15 gram/32 mL oral gel Take 32 mL by mouth as needed. - glucagon 1 mg/mL injection Inject 1 mg intramuscularly as needed. - dextrose 10% Inject 125 mL intravenously as needed (low blood sugar). - enoxaparin (LOVENOX) 40 mg/0.4 mL Inject 0.4 mL subcutaneously every 24 hours. - ipratropium-albuterol (DUONEB) 0.5 mg-3 mg(2.5 mg base)/3 mL nebu Inhale 3 mL as instructed every 4 hours. - lidocaine (SALONPAS) 4 % patch Apply 1 Patch as directed once daily. - polyethylene glycol 3350 17 gram packet Take 1 Packet by mouth two times a day. Dissolve dose in 4 - 8 ounces of liquid and take as directed. - senna-docusate (SENNA-S) 8.6-50 mg per tablet 2 tablets by ORAL/FEEDING TUBE route two times a day. - montelukast (SINGULAIR) 10 mg tablet Take 1 tablet by mouth once daily. Problem List As Of Date 09/08/2024 Noted Resolved History of [place] (myocardial infarction) [I25.2] 06/02/2008 03/21/2017 Hyperlipidemia [E78.5] Asthma [J45.909] COPD exacerbation (HCC) [J44.1] Former smoker [Z87.891] 06/02/2024 Hypertension [I10] Erectile dysfunction [N52.9] 11/09/2015 GERD (gastroesophageal reflux disease) [K21.9] 11/09/2015 Nasal polyposis [J33.9] 11/09/2015 Hematuria [R31.9] 09/27/2011 11/09/2015 Lesion of bladder [N32.9] 09/27/2011 11/09/2015 Coronary artery disease involving [place] heart *03/21/2017 Seasonal allergic rhinitis due to fungal spores*01/14/2018 Allergic rhinitis due to dust mite [J30.89] 01/14/2018 Seasonal allergic rhinitis due to pollen [J30.1]01/14/2018 Bronchiectasis with acute exacerbation (HCC) [J*07/12/2021 Dysphagia [R13.10] 01/18/2022 Current smoker [F17.200] 06/02/2024 Other osteoporosis without current pathological*06/02/2024 Cardiac arrest (HCC) [I46.9] 06/04/2024 Acute on chronic respiratory failure with hypox*06/04/2024 Traumatic pneumothorax [S27.0XXA] 06/04/2024 Pressure injury of deep tissue of sacral region*06/11/2024 Pneumothorax on right [J93.9] 06/15/2024 Multiple closed fractures of ribs of right side*06/15/2024 Respiratory arrest (HCC) [R09.2] 06/15/2024 Subcutaneous emphysema (HCC) [T79.7XXA] 06/15/2024 Leukocytosis [D72.829] 06/15/2024 Bacterial pneumonia [J15.9] 06/15/2024 Type 2 diabetes mellitus without complication, *06/15/2024 Hypernatremia [E87.0] 06/15/2024 Malnutrition of moderate degree (HCC) [E44.0] 06/16/2024 Subarachnoid hemorrhage (HCC) [I60.9] 06/17/2024 Quadriparesis (HCC) [G82.50] 06/18/2024 Abnormal brain MRI [R90.89] 06/18/2024 Encounter Status:Closed by EPIC, PRODUSER on 09/11/24[facility] 2024 NoteHNO ID: [id number] Author: LUZ DONATO MA Service: ? Author Type: Financial Analyst Type: Progress Notes Filed: 2024 15:58 Note Text: POPULATION HEALTH NAVIGATION OUTREACH Action/FYI Left message and sent My Chart message to schedule preventive health/HCC. Appoint notes changed to add HCC on upcoming AWV. Topic Due (Y or N) Comments Medicare Wellness N already scheduled PCP Follow up N Mammogram N Colorectal Cancer Screening N A1C N Controlling BP N Dilated Retinal Exam (ISAÍAS) Y KED (UACR and eGFR) Y HCC Y Flu Vaccine N Updated Appointment Note Y Reason for Outreach Care Gap/HCC or Scheduling Wellness Visits Care Gaps due: Diabetic Eye Exam KED Patient Contacted: Unable or unnecessary to reach patient: Left message MyChart message sent HCC related Updated appointment notes Navigation Signature: Luz Donato MA 2024 3[facility] History of Present illness Narrative* Luz Donato MA - 2024 3:56 PM EST POPULATION HEALTH NAVIGATION OUTREACH Action/FYI Left message and sent My Chart message to schedule preventive health/HCC. Appoint notes changed to add HCC on upcoming AWV. Topic Due (Y or N) Comments Medicare Wellness N already scheduled PCP Follow up N Mammogram N Colorectal Cancer Screening N A1C N Controlling BP N Dilated Retinal Exam (ISAÍAS) Y KED (UACR and eGFR) Y HCC Y Flu Vaccine N Updated Appointment Note Y Reason for Outreach Care Gap/HCC or Scheduling Wellness Visits Care Gaps due: Diabetic Eye Exam KED Patient Contacted: Unable or unnecessary to reach patient: Left message PerspecSyst message sent HCC related Updated appointment notes Navigation Signature: Luz Dontao MA 2024 3:56 PM documented in this encounterPremier [facility] NotePatient Outreach (NETNAV) CHIO DENT JR. ([id number]) 1960 M Date Time Provider Department 09/03/24 LUZ DONATO During your visit today, we recorded the following information about you: Luz Donato MA 2024 3:58 PM Signed POPULATION HEALTH NAVIGATION OUTREACH Action/FYI Left message and sent My Chart message to schedule preventive health/HCC. Appoint notes changed to add HCC on upcoming AWV. Topic Due (Y or N) Comments Medicare Wellness N already scheduled PCP Follow up N Mammogram N Colorectal Cancer Screening N A1C N Controlling BP N Dilated Retinal Exam (ISAÍAS) Y KED (UACR and eGFR) Y HCC Y Flu Vaccine N Updated Appointment Note Y Reason for Outreach Care Gap/HCC or Scheduling Wellness Visits Care Gaps due: Diabetic Eye Exam KED Patient Contacted: Unable or unnecessary to reach patient: Left message MyChart message sent HCC related Updated appointment notes Navigation Signature: Luz Donato MA 2024 3:56 PM Allergies As of Date: 2024 Noted Allergy Reaction ASPIRIN 06/21/2010 8 - [...] ragweed (April, May and June) Date Reviewed: 06/23/2024 Reviewed by: Molly Maddox APRN.FELLING MACHINE OPERATOR - Fully Assessed Reason for Visit: Population Health Navigation Outreach [3910] Cmt: [employer] Prescriptions as of 2024 - albuterol (PROVENTIL) 2.5 mg /3 mL (0.083 %) nebulizer solution Use 3 mL via nebulizer every 4 hours as needed for wheezing/shortness of breath. - atorvastatin (LIPITOR) 20 mg tablet Take 1 tablet by mouth daily at bedtime. - gabapentin (NEURONTIN) 300 mg capsule 1 capsule by ORAL/FEEDING TUBE route every 8 hours for 7 days. - acetaminophen (TYLENOL) 650 mg/20.3 mL soln 20.3 mL by ORAL/FEEDING TUBE route every 6 hours as needed for pain or fever (specify temp.) (Temp greater than 38.3). Do not exceed 5 doses in 24 hours. - budesonide (PULMICORT) 0.5 mg/2 mL nebulizer solution Use 2 mL via nebulizer two times a day. - dextrose (TRUEPLUS) 15 gram/32 mL oral gel Take 32 mL by mouth as needed. - glucagon 1 mg/mL injection Inject 1 mg intramuscularly as needed. - dextrose 10% Inject 125 mL intravenously as needed (low blood sugar). - enoxaparin (LOVENOX) 40 mg/0.4 mL Inject 0.4 mL subcutaneously every 24 hours. - ipratropium-albuterol (DUONEB) 0.5 mg-3 mg(2.5 mg base)/3 mL nebu Inhale 3 mL as instructed every 4 hours. - lidocaine (SALONPAS) 4 % patch Apply 1 Patch as directed once daily. - polyethylene glycol 3350 17 gram packet Take 1 Packet by mouth two times a day. Dissolve dose in 4 - 8 ounces of liquid and take as directed. - senna-docusate (SENNA-S) 8.6-50 mg per tablet 2 tablets by ORAL/FEEDING TUBE route two times a day. - montelukast (SINGULAIR) 10 mg tablet Take 1 tablet by mouth once daily. Problem List As Of Date 2024 Noted Resolved History of IL (myocardial infarction) [I25.2] 06/02/2008 03/21/2017 Hyperlipidemia [E78.5] Asthma [J45.909] COPD exacerbation (HCC) [J44.1] Former smoker [Z87.891] 06/02/2024 Hypertension [I10] Erectile dysfunction [N52.9] 11/09/2015 GERD (gastroesophageal reflux disease) [K21.9] 11/09/2015 Nasal polyposis [J33.9] 11/09/2015 Hematuria [R31.9] 09/27/2011 11/09/2015 Lesion of bladder [N32.9] 09/27/2011 11/09/2015 Coronary artery disease involving [place] heart *03/21/2017 Seasonal allergic rhinitis due to fungal spores*01/14/2018 Allergic rhinitis due to dust mite [J30.89] 01/14/2018 Seasonal allergic rhinitis due to pollen [J30.1]01/14/2018 Bronchiectasis with acute exacerbation (HCC) [J*07/12/2021 Dysphagia [R13.10] 01/18/2022 Current smoker [F17.200] 06/02/2024 Other osteoporosis without current pathological*06/02/2024 Cardiac arrest (HCC) [I46.9] 06/04/2024 Acute on chronic respiratory failure with hypox*06/04/2024 Traumatic pneumothorax [S27.0XXA] 06/04/2024 Pressure injury of deep tissue of sacral region*06/11/2024 Pneumothorax on right [J93.9] 06/15/2024 Multiple closed fractures of ribs of right side*06/15/2024 Respiratory arrest (HCC) [R09.2] 06/15/2024 Subcutaneous emphysema (HCC) [T79.7XXA] 06/15/2024 Leukocytosis [D72.829] 06/15/2024 Bacterial pneumonia [J15.9] 06/15/2024 Type 2 diabetes mellitus without complication, *06/15/2024 Hypernatremia [E87.0] 06/15/2024 Malnutrition of moderate degree (HCC) [E44.0] 06/16/2024 Subarachnoid hemorrhage (HCC) [I60.9] 06/17/2024 Quadriparesi (more content not included)...[facility]12-09-2024 Telephone encounter Note* Telephone Encounter - Phyllis Saleem LPN - 08/10/2024 3:08 PM EST Fax recc'd from [facility]. Pt was seen in TCU and transferred to [facility] for rehab care in hopes to be discharged home. He will be followed there by their facility provider. [facility]12-09-2024 Miscellaneous Notes* Telephone Encounter - Phyllis Saleem LPN - 08/10/2024 3:08 PM EST Fax recc'd from [facility]. Pt was seen in TCU and transferred to [facility] for rehab care in hopes to be discharged home. He will be followed there by their facility provider. documented in this encounterPremier Health [facility]12-06-2024 [facility]11-15-2024 [facility]11-04-2024 NoteHNO ID: [id number] Author: LUZ DONATO MA Service: ? Author Type: Financial Analyst Type: Progress Notes Filed: 07/06/2024 12:23 Note Text: POPULATION HEALTH NAVIGATION OUTREACH Action/FYI Contacted patient to schedule [employer] Annual Wellness Visit and care gaps 1st attempt: Left message with my direct number 2nd attempt: My Chart message sent Reason for Outreach Care Gap/HCC or Scheduling Wellness Visits Care Gaps due: Diabetic Eye Exam HGB A1C Urine Albumin/BMP Patient Contacted: Unable or unnecessary to reach patient: Left message Instapagehart message sent HCC related Navigation Signature: Luz Donato MA July 06, 2024 12:22 [facility]11-04-2024 History of Present illness Narrative* Luz Donato MA - 07/06/2024 12:21 PM EST POPULATION HEALTH NAVIGATION OUTREACH Action/FYI Contacted patient to schedule [employer] Annual Wellness Visit and care gaps 1st attempt: Left message with my direct number 2nd attempt: My Chart message sent Reason for Outreach Care Gap/HCC or Scheduling Wellness Visits Care Gaps due: Diabetic Eye Exam HGB A1C Urine Albumin/BMP Patient Contacted: Unable or unnecessary to reach patient: Left message Instapagehart message sent HCC related Navigation Signature: Luz Donato MA July 06, 2024 12:22 PM documented in this encounterPremier Health [facility]11-04-2024 NotePatient Outreach (NETNAV) FILIPECHIO Juliann EDMOND ([id number]) 1960 M Date Time Provider Department 07/06/24 LUZ DONATO During your visit today, we recorded the following information about you: Luz Donato MA 07/06/2024 12:23 PM Signed POPULATION HEALTH NAVIGATION OUTREACH Action/FYI Contacted patient to schedule [employer] Annual Wellness Visit and care gaps 1st attempt: Left message with my direct number 2nd attempt: My Chart message sent Reason for Outreach Care Gap/HCC or Scheduling Wellness Visits Care Gaps due: Diabetic Eye Exam HGB A1C Urine Albumin/BMP Patient Contacted: Unable or unnecessary to reach patient: Left message MyChart message sent HCC related Navigation Signature: Luz Donato MA July 06, 2024 12:22 PM Allergies As of Date: 07/06/2024 Noted Allergy Reaction ASPIRIN 06/21/2010 8 - [...] ragweed (April, May and June) Date Reviewed: 06/23/2024 Reviewed by: Molly Maddox APRN.FELLING MACHINE OPERATOR - Fully Assessed Reason for Visit: Population Health Navigation Outreach [3910] Cmt: [employer] Prescriptions as of 07/06/2024 - albuterol (PROVENTIL) 2.5 mg /3 mL (0.083 %) nebulizer solution Use 3 mL via nebulizer every 4 hours as needed for wheezing/shortness of breath. - atorvastatin (LIPITOR) 20 mg tablet Take 1 tablet by mouth daily at bedtime. - gabapentin (NEURONTIN) 300 mg capsule 1 capsule by ORAL/FEEDING TUBE route every 8 hours for 7 days. - acetaminophen (TYLENOL) 650 mg/20.3 mL soln 20.3 mL by ORAL/FEEDING TUBE route every 6 hours as needed for pain or fever (specify temp.) (Temp greater than 38.3). Do not exceed 5 doses in 24 hours. - budesonide (PULMICORT) 0.5 mg/2 mL nebulizer solution Use 2 mL via nebulizer two times a day. - dextrose (TRUEPLUS) 15 gram/32 mL oral gel Take 32 mL by mouth as needed. - glucagon 1 mg/mL injection Inject 1 mg intramuscularly as needed. - dextrose 10% Inject 125 mL intravenously as needed (low blood sugar). - enoxaparin (LOVENOX) 40 mg/0.4 mL Inject 0.4 mL subcutaneously every 24 hours. - ipratropium-albuterol (DUONEB) 0.5 mg-3 mg(2.5 mg base)/3 mL nebu Inhale 3 mL as instructed every 4 hours. - lidocaine (SALONPAS) 4 % patch Apply 1 Patch as directed once daily. - polyethylene glycol 3350 17 gram packet Take 1 Packet by mouth two times a day. Dissolve dose in 4 - 8 ounces of liquid and take as directed. - senna-docusate (SENNA-S) 8.6-50 mg per tablet 2 tablets by ORAL/FEEDING TUBE route two times a day. - montelukast (SINGULAIR) 10 mg tablet Take 1 tablet by mouth once daily. Problem List As Of Date 07/06/2024 Noted Resolved History of IL (myocardial infarction) [I25.2] 06/02/2008 03/21/2017 Hyperlipidemia [E78.5] Asthma [J45.909] COPD exacerbation (HCC) [J44.1] Former smoker [Z87.891] 06/02/2024 Hypertension [I10] Erectile dysfunction [N52.9] 11/09/2015 GERD (gastroesophageal reflux disease) [K21.9] 11/09/2015 Nasal polyposis [J33.9] 11/09/2015 Hematuria [R31.9] 09/27/2011 11/09/2015 Lesion of bladder [N32.9] 09/27/2011 11/09/2015 Coronary artery disease involving [place] heart *03/21/2017 Seasonal allergic rhinitis due to fungal spores*01/14/2018 Allergic rhinitis due to dust mite [J30.89] 01/14/2018 Seasonal allergic rhinitis due to pollen [J30.1]01/14/2018 Bronchiectasis with acute exacerbation (HCC) [J*07/12/2021 Dysphagia [R13.10] 01/18/2022 Current smoker [F17.200] 06/02/2024 Other osteoporosis without current pathological*06/02/2024 Cardiac arrest (HCC) [I46.9] 06/04/2024 Acute on chronic respiratory failure with hypox*06/04/2024 Traumatic pneumothorax [S27.0XXA] 06/04/2024 Pressure injury of deep tissue of sacral region*06/11/2024 Pneumothorax on right [J93.9] 06/15/2024 Multiple closed fractures of ribs of right side*06/15/2024 Respiratory arrest (HCC) [R09.2] 06/15/2024 Subcutaneous emphysema (HCC) [T79.7XXA] 06/15/2024 Leukocytosis [D72.829] 06/15/2024 Bacterial pneumonia [J15.9] 06/15/2024 Type 2 diabetes mellitus without complication, *06/15/2024 Hypernatremia [E87.0] 06/15/2024 Malnutrition of moderate degree (HCC) [E44.0] 06/16/2024 Subarachnoid hemorrhage (HCC) [I60.9] 06/17/2024 Quadriparesis (HCC) [G82.50] 06/18/2024 Abnormal brain MRI [R90.89] 06/18/2024 Encounter Status:Closed by LUZ DONATO on 07/06/24[facility] 06-23-2024 NoteHNO ID: [id number] Author: KATE HOPPER RN Service: ? Author Type: Registered Nurse Type: Nursing Progress Note Filed: 06/23/2024 14:38 Note Text: Transfer Note: Report called to MARION Alfaro at [facility]10-22-2024 [facility]10-21-2024 [facility] 06-21-2024 [facility]10-20-2024 [facility]10-20-2024 [facility]10-19-2024 [facility]10-19-2024 [facility]10[facility]18-2024 [facility]10-18-2024 [facility]10-18-2024 Note [facility]10-18-2024 [facility] 06-19-2024 [facility]10-18-2024 [facility]10-17-2024 [facility]10-17-2024 [facility]10-17-2024 [facility]10-17-2024 [facility]10-16-2024 [facility]10-16-2024 Note [facility]10-16-2024 [facility] 06-16-2024 [facility]10-15-2024 [facility]10-14-2024 [facility]10-14-2024 [facility]10-14-2024 [facility]10-13-2024 [facility]10-13-2024 [facility]10-12-2024 Note [facility]10-12-2024 [facility] 06-12-2024 NoteHNO ID: [id number] Author: MARGUERITE ADLER RN Service: ? Author Type: Registered Nurse Type: Progress Notes Filed: 06/12/2024 15:32 Note Text: ACM DAWN RN Patient identified by name and date of . Reason for review or outreach: Chart Review [facility] Department Utilization REQUESTED ACTION/FYI: Please see ED Utilization summary below: Patient currently admitted at [facility] Please consider following up with patient on measures to decrease utilization. Please consider Pulmonary referral and/or Chronic Care referral for management of chronic condition COPD Thank you Exclusion Criteria - Does not meet exclusion criteria Utilization in past 6 months: # Occurrences Date Last Occurrence Hospital Admission 1 06/04/24 Hospital Observation 0 N/A ED 6-OON 06/03/24 SNF / Acute Rehab / LTAC 0 N/A ED DIAGNOSES/REASON(S) FOR ED USE: 09/26/13- OON SOB 01/04/24-OON SOB 02/08/24- OON SOB 04/14/24-OON SOB 05/04/24-OON SOB OTHER FINDINGS/SUMMARY: Noted increase ED utilization past 6 months for Dx Reasons related to SOB. Please consider Pulmonary referral, Chronic Care referral for management of chronic condition COPD Patient Attributed To: QAE Payer: Liyah MOCTEZUMA Action Taken: Please consider referral to vision specialist ofr Chronic Care Referral for Chronic condition COPD. Contact made with patient: No, Chart review only. Signature: Marguerite CARRASQUILLO,RN,[facility] Twister Operator Management Contract RN [phone]10[facility] History of Present illness Narrative* Marguerite Adler RN - 06/12/2024 3:09 PM EDT [facility] DAWN RN Patient identified by name and date of . Reason for review or outreach: Chart Review [facility] Emergency Department Utilization REQUESTED ACTION/FYI: Please see ED Utilization summary below: Patient currently admitted at [facility] Please consider following up with patient on measures to decrease utilization. Please consider Pulmonary referral and/or Chronic Care referral for management of chronic conditionCOPD Thank you Exclusion Criteria - Does not meet exclusion criteria Utilization in past 6 months: # Occurrences Date Last Occurrence Hospital Admission 1 06/04/24 Hospital Observation 0 N/A ED 6-OON 06/03/24 SNF / Acute Rehab / LTAC 0 N/A ED DIAGNOSES/REASON(S) FOR ED USE: 09/26/13- OON SOB 01/04/24-OON SOB 02/08/24- OON SOB 04/14/24-OON SOB 05/04/24-OON SOB OTHER FINDINGS/SUMMARY: Noted increase ED utilization past 6 months for Dx Reasons related to SOB. Please consider Pulmonary referral, Chronic Care referral for management of chronic condition COPD Patient Attributed To: QAE Payer: Liyah MOCTEZUMA Action Taken: Please consider referral to vision specialist ofr Chronic Care Referral for Chronic condition COPD. Contact made with patient: No, Chart review only. Signature: Marguerite CARRASQUILLO,RN,[facility] Twister Operator Management Contract RN [phone] documented in this encounterPremier Health [facility]10-11-2024 [facility]10-11-2024 [facility]10-11-2024 [facility]10-11-2024 [facility]10-11-2024 NotePatient Outreach (AMBCMG) CHIO DENT JR. ([id number]) 1960 M Date Time Provider Department 06/12/24 MARGUERITE ADLERMaegan During your visit today, we recorded the following information about you: Marguerite Adler RN 06/12/2024 3:32 PM Signed ACM DAWN RN Patient identified by name and date of . Reason for review or outreach: Chart Review [facility] Department Utilization REQUESTED ACTION/FYI: Please see ED Utilization summary below: Patient currently admitted at [facility] Please consider following up with patient on measures to decrease utilization. Please consider Pulmonary referral and/or Chronic Care referral for management of chronic condition COPD Thank you Exclusion Criteria - Does not meet exclusion criteria Utilization in past 6 months: # Occurrences Date Last Occurrence Hospital Admission 1 06/04/24 Hospital Observation 0 N/A ED 6-OON 06/03/24 SNF / Acute Rehab / LTAC 0 N/A ED DIAGNOSES/REASON(S) FOR ED USE: 09/26/13- OON SOB 01/04/24-OON SOB 02/08/24- OON SOB 04/14/24-OON SOB 05/04/24-OON SOB OTHER FINDINGS/SUMMARY: Noted increase ED utilization past 6 months for Dx Reasons related to SOB. Please consider Pulmonary referral, Chronic Care referral for management of chronic condition COPD Patient Attributed To: QAE Payer: Liyah MOCTEZUMA Action Taken: Please consider referral to vision specialist ofr Chronic Care Referral for Chronic condition COPD. Contact made with patient: No, Chart review only. Signature: Marguerite Adler MSN,RN,[facility] Twister Operator Management Contract RN [phone] Allergies As of Date: 06/12/2024 Noted Allergy Reaction ASPIRIN 06/21/2010 8 - [...] ragweed (April, May and June) Date Reviewed: 06/12/2024 Reviewed by: Jae Adame RN - Fully Assessed Reason for Visit: ACM DAWN RN [1142] Cmt: ED Utilization review per request of payor Prescriptions as of 06/12/2024 - Cholecalciferol, Vitamin D3, 50 mcg (2,000 unit) cap Take 1 capsule by mouth once daily. - guaiFENesin (HUMIBID E) 400 mg tab Take 400 mg by mouth three times a day as needed (congestion). - gsdumlqqdx-utkysiaq-kgawhyptkn (BREZTRI AEROSPHERE) 160-9-4.8 mcg/actuation HFA aerosol inhaler Inhale 2 Puffs as instructed two times a day. - predniSONE (DELTASONE) 10 mg tablet As needed per pulmonology - atorvastatin (LIPITOR) 20 mg tablet Take 1 tablet by mouth daily at bedtime. For cholesterol. - lisinopril 2.5 mg tablet Take 2.5 mg by mouth once daily. - gabapentin (NEURONTIN) 600 mg tablet Take 1 tablet by mouth daily at bedtime. VA medication. - fluticasone (FLONASE) 50 mcg/actuation nasal spray USE 2 SPRAYS IN EACH NOSTRIL ONCE DAILY. RINSE MOUTH AFTER USE. - albuterol HFA (PROAIR HFA) 90 mcg/actuation inhaler Inhale 2 Puffs as instructed every 4 hours as needed. - montelukast (SINGULAIR) 10 mg tablet Take 1 tablet by mouth once daily. - cetirizine (ZYRTEC) 10 mg tablet Take 1 tablet by mouth once daily. VA medication for allergies. - cyanocobalamin (VITAMIN B-12) 1,000 mcg tab Take 1 tablet by mouth once daily. - albuterol 2.5 mg /3 mL (0.083 %) INHALATION nebulizer solution Use via nebulizer every 6 hours as needed for Wheezing/Shortness of Breath. Inhale by nebulizer over 5-15 minutes - omeprazole (PRILOSEC) 20 mg capsule Take 40 mg by mouth two times a day. - Aspirin 81 mg ORAL Tab Take one(1) tablet daily. - clopidogrel (PLAVIX) 75 mg tablet Take one(1) tablet daily at bedtime. Facility-Administered Medications as of 06/12/2024 - fentaNYL 20 mcg/mL iv infusion in NaCl 0.9% 100 mL (SUBLIMAZE) - bisacodyl 10 mg suppository (DULCOLAX) - propofol 20 mg bolus from bag/syringe (DIPRIVAN) - propofol 20 mg injection (DIPRIVAN) - fentaNYL 25-50 mcg bolus from bag/syringe (SUBLIMAZE) - fentaNYL 50 mcg/mL 25-50 mcg injection (SUBLIMAZE) - polyethylene glycol 3350 17 g packet - ipratropium-albuterol 3 mL nebulizer solution (DUONEB) - pantoprazole 40 mg oral liquid (PROTONIX) - senna-docusate 8.6-50 mg 2 tablet (SENNA-S) - gabapentin 300 mg cap(s) (NEURONTIN) - propofol infusion (DIPRIVAN) - atorvastatin 20 mg tab(s) (LIPITOR) - montelukast 10 mg tab(s) (SINGULAIR) - lidocaine 4 % 1 Patch (SALONPAS) - lidocaine patch - REMOVE - lidocaine - VERIFY PATCH - dextrose 15 gram/32 mL 15 g (TRUEPLUS) - glucagon 1 mg injection - dextrose 10% iv bolus - ins (more content not included)...[facility]10-10-2024 Note [facility]10-10-2024 [facility] 06-10-2024 [facility]10-09-2024 [facility]10-08-2024 [facility]10-08-2024 [facility]10-08-2024 [facility]10-07-2024 [facility]10-07-2024 [facility]10-07-2024 Note [facility]10-06-2024 [facility]-07[facility]10-05-2024 [facility]10-04-2024 [facility]10-04-2024 [facility]10-03-2024 [facility]10-03-2024 [facility]10-03-2024 Note [facility]10-03-2024 NoteAcceptable Specimen? Acceptable Specimen(Evaluation not needed) Gram Stain Rare Epithelial cells Rare White Blood Cells 1+ Gram positive cocci 1+ Gram positive rodsWKing's Daughters Medical Center OhioComment on above:Performed By: #### M100.2000, M100.2400 ####[facility] [id number] [place], [phone] [facility] 06-04-2024 NoteHNO ID: [id number] Author: JOHN DONATO APRN.CNP Service: ? Author Type: Nurse Practitioner Type: Progress Notes Filed: 06/04/2024 03:17 Note Text: CRITICAL CARE TRANSPORT MEDICAL CONTROL CONSULT NOTE Patient Name: Chio Dent Jr. Service Date: June 04, 2024 Referring Facility: [facility] Accepting Facility: [facility] REASON FOR TRANSPORT: Higher level trauma services not available at the referring facility. REASON FOR CONSULT: Hypoxia CCT MEDICAL CONTROL CONSULT SUMMARY: History, physical exam findings, and available background patient information from CCT Transport Nurse were reviewed at the time of consult. Pertinent additional information was reviewed as follows: CCT transport request log In brief, Chio Dent Jr. is a 63 year old male with a history, known at time of consult, significant for COPD, IL and CAD who presented tot he ED at [facility] in Cardiac Arrest (Respiratory arrest). ACLS was started with the Mandeep Device prior to arrival. Unknown details of arrest but patient had ROSC. He was intubated and placed on the ventilator A/C VCV Rate 12, TV 400, FIO2 60%, PEEP 5. A CXR was completed which showed multiple R sided rib fractures and a pneumothorax. A pigtail (8f) thoracostomy tube was placed and connected to intermittent suction. Patient was started on Propofol and Fentanyl for sedation and pain. He is being transferred to [facility] for higher level trauma services not available at the referring facility. En route with CCT, patient became hypoxic and hypercapnic with SpO2 77% and ETCO2 56. He was taken off the ventilator and ventilated with a BVM temporarily which increased his SpO2 and decreased his ETCO2. Patient placed back on ventilator on settings below. Patient was given Fetnayl 50mcg IVP for pain control and compliance with the ventilator. Suction increased from intermittent to continuous -20. PLAN: Multiple factors considered including: patient history/condition/trajectory/stability, referring and receiving destinations, duration of transport time, medications and therapies available during transport, patient safety, as well as crew capabilities. Orders given for: Ventilator A/C VCV Rate 16, TV 400, FIO2 100%, PEEP 5 Fentanyl 50mcg IV bolus from bag Continuous -20 suction Plan of care and orders confirmed and read back via telephone with CCT Transport presentation team member, Esvin Weiss RN and Candace West RN SIGNATURE: John Donato APRN.CNP Acute Care Nurse Practitioner [facility] History of Present illness Narrative* John Donato APRN.IRMA - 06/04/2024 1:38 AM EDT Images from the original note were not included. CRITICAL CARE TRANSPORT MEDICAL CONTROL CONSULT NOTE Patient Name: Chio Dent Jr. Service Date: June 04, 2024 Referring Facility: [facility] Accepting Facility: [facility] REASON FOR TRANSPORT: Higher level trauma services not available at the referring facility. REASON FOR CONSULT: Hypoxia CCT MEDICAL CONTROL CONSULT SUMMARY: History, physical exam findings, and available background patient information from CCT Transport Nurse were reviewed at the time of consult. Pertinent additional information was reviewed as follows: CCT transport request log In brief, Chio Dent Jr. is a 63 year old male with a history, known at time of consult, significant for COPD, IL and CAD who presented tot he ED at [facility] in Cardiac Arrest (Respiratory arrest). ACLS was started with the Mandeep Device prior to arrival. Unknown details ofarrest but patient had ROSC. He was intubated and placed on the ventilator A/C VCV Rate 12, TV 400,FIO2 60%, PEEP 5. A CXR was completed which showed multiple R sided rib fractures and a pneumothorax. A pigtail (8f) thoracostomy tube was placed and connected to intermittent suction. Patient was started on Propofol and Fentanyl for sedation and pain. He is being transferred to [facility] for higher level trauma services not available at the referring facility. En route with [facility], patient became hypoxic and hypercapnic with SpO2 77% and ETCO2 56. He was taken off the ventilator and ventilated with a BVM temporarily which increased his SpO2 and decreased his ETCO2. Patient placed back on ventilator on settings below. Patient was given Fetnayl 50mcg IVP for pain control and compliance with the ventilator. Suction increased from intermittent to continuous -20. PLAN: Multiple factors considered including: patient history/condition/trajectory/stability, referring and receiving destinations, duration of transport time, medications and therapies available during [employer], patient safety, as well as crew capabilities. Orders given for: Ventilator A/C VCV Rate 16, TV 400, FIO2 100%, PEEP 5 Fentanyl 50mcg IV bolus from bag Continuous -20 suction Plan of care and orders confirmed and read back via telephone with [facility] Transport presentation team member, Esvin Weiss RN and Candace West RN SIGNATURE: John Donato APRN.IRMA Acute Care Nurse Practitioner Critical Care Transport documented in this encounterPremier Health [facility]10-03-2024 [id number] (AGENT OF COVID-19) RNA: Not detected INFLUENZA A RNA: Not detected INFLUENZA B RNA: Not detected RESPIRATORY SYNCYTIAL VIRUS (RSV) RNA: Not detectedCalais Regional HospitalComment on above:Performed By: #### [id number] ####[facility] LABORATORYCLIA [id number] [place] [address] [place] [id number] Instructions* Patient Instructions* Heather Davis APRN.IRMA - 06/02/2024 2:14 PM EDT Screening schedule The following prevention plan is recommended: Depression Screening Never done Anxiety Screening Never done Colorectal Cancer Screening Never done Lung Cancer Screening Never done LDL Cholesterol due on 12/19/2022 Prostate Cancer Screening Discussion due on 03/31/2024 Influenza Vaccine(1) due on 05/03/2024 WHAT YOU CAN DO TO PREVENT FALLS Many falls can be prevented. By making some changes, you can lower your chances of falling. Four things YOU can do to prevent falls for you* and your caregiver 1. Begin a regular exercise program Exercise is one of the most important ways to lower your chances of falling. It makes you stronger and helps you feel better. Exercises that improve balance and coordination (like Silverio Chi) are the most helpful. Lack of exercise leads to weakness and increases your chances of falling. Ask your doctor or health care provider about the best type of exercise program for you. 2. Have your health care provider review your medicines Have your doctor or pharmacist review all the medicines you take, even aiiq-mee-dchccpu medicines. As you get older, the way medicines work in your body can change. Some medicines, or combinations of medicines, can make you sleepy or dizzy andcan cause you to fall. 3. Have your vision checked Have your eyes checked by an eye doctor at least once a year. You may be wearing the wrong glasses or have a condition like glaucoma or cataracts that limits your vision. Poor vision can increase your chances of falling. 4. Make your home safer About half of all falls happen at home. To make your home safer: Remove things you can trip over (like papers, books, clothes, and shoes) from stairs and places where you walk. Remove small throw rugs or use double-sided tape to keep the rugs from slipping. Keep items you use often in cabinets you can reach easily without using a step stool. Have grab bars put in next to your toilet and in the tub or shower. Use non-slip mats in the bathtub and on shower floors. Improve the lighting in your home. As you get older, you need brighter lights to see well. Hang light-weight curtains or shades to reduce glare. Have handrails and lights put in on all staircases. Wear shoes both inside and outside the house. Avoid going barefoot or wearing slippers. For more information, contact: Centers for Disease Control and Prevention www.cdc.gov/injury * This information may not apply if you have certain medical conditions. documented in this encounterPremier Health [facility]10-01-2024 NoteHNO ID: [id number] Author: HEATHER DAVIS APRN.IRMA Service: ? Author Type: Nurse Practitioner Type: Progress Notes Filed: 06/02/2024 14:37 Note Text: Chio Dent Jr. is a 63 year old male here for a Medicare wellness visit. Medicare Health Risk Assessment General Health Good Exercise: Minutes/Day 0 min Exercise: Days/Week On average, how many days per week do you engage in moderate to strenuous exercise (like a brisk walk)?: 0 days (stays very active but no routine aerobic exercise) Alcohol: Daily Use Never Alcohol: Drinks/Day Patient does not drink Alcohol: 6 or more drinks Never Feel off balance No Concerns: Teeth/Dentures No Concerns: Sexual function No Troubled by feelings None of the above Frequency: Eating healthy diet More than half the days ADLs requiring help None of the above Safety precautions in home/vehicle No Smoke, vape, chews tobacco Yes, but I'm not ready to quit Difficulty hearing No Difficulty seeing No Current Providers Specialists: I have reviewed specialist-related care of the patient in the medical record. Current care team: Patient Care Team: Alexey Mayberry MD as PCP - General (Internal Medicine) Outside specialists seen: [facility], [facility], [place] [facility] Medical/Family history review Reviewed and updated problem list, medical/surgical/family/social history, medications, and allergies. Opioid use review Opioid Medications (last 90 days) No data to display Anxiety/Depression screening PHQ-2 Score: 0 TAMRA-2 Score: 0 Recommendation: no further intervention at this time Cognitive screening Mini Cog Score: 5 Cognitive screening reviewed and No further action needed (score 3-5). Functional Observation Was the patient's Timed Up AND Go test unsteady or >= 12 seconds? No Advance Care Planning Surrogate decision maker and/or advance care plan documented Measurements BP 108/76 Pulse 87 Resp 24 Ht 166 cm (5' 5.35) Wt 67.4 kg (148 lb 9.4 oz) SpO2 96% BMI 24.46 kg/m? Vision Screening: Follows with optometry/ophthalmology Assessment/Plan Medicare annual wellness visit, subsequent (Z00.00) - Counseled on healthy diet and regular exercise - Fall avoidance information provided - Personalized prevention plan provided - Smoking cessation encouraged; discussed risks to health and quitting strategies. Patient is not ready to quit Additional Concerns The following concerns were also discussed with the patient: Patient gets most of his care through the [place] and his specialists including routine labs, screenings and medications. Denies any concerns today. He is taking all medications as prescribed without side effects. He has been dealing with frequent COPD exacerbations for the past few months. He will follow-up with pulmonology for this. 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 Checking BP at home with average int he 100's/70's. BP 108/76 Pulse 87 Resp 24 Ht 166 cm (5' 5.35) Wt 67.4 kg (148 lb 9.4 oz) SpO2 96% BMI 24.46 kg/m? Physical Exam Vitals reviewed. Constitutional: Appearance: Normal appearance. Cardiovascular: Rate and Rhythm: Normal rate and regular rhythm. Heart sounds: Normal heart sounds. No murmur heard. Pulmonary: Effort: Pulmonary effort is normal. Breath sounds: Decreased breath sounds (throughout) and wheezing (diffusely) present. Musculoskeletal: Right lower leg: No edema. Left lower leg: No edema. Skin: General: Skin is warm and dry. Neurological: Mental Status: He is alert. ASSESSMENT/PLAN: 1. Medicare annual wellness visit, subsequent - ICD9: V70.0, ICD10: Z00.00 (primary diagnosis) See medicare wellness plan 2. Primary hypertension - ICD9: 401.9, ICD10: I10 - Controlled - Continue current medications - Recommend home blood pressure monitoring, to bring results to next visit - Encouraged sodium restriction, DASH or Mediterranean diet 3. Coronary artery disease involving [place] heart without angina pectoris, unspecified vessel or lesion type - ICD9: 414.01, ICD10: I25.10 Stable, continue with cardiology follow-up and recommendations 4. Hyperlipidemia, unspecified hyperlipidemia type - ICD9: 272.4, ICD10: E78.5 - Controlled 5. Chronic obstructive pulmonary disease, unspecified COPD type (HCC) - ICD9: 496, ICD10: J44.9 Frequent exacerbations recently, follow-up with pulmonology as scheduled 6. Current smoker - ICD9: 305.1, ICD10: F17.200 No desire to quit at this time 7. Other osteoporosis without current pathological fracture - ICD9: 733.09, ICD10: M81.8 Continue treatment with Fosamax and follow-[facility] 8. Seasonal allergic rhinitis due to fungal spores - ICD9: 477.8, ICD10: J30.2 Controlled with medication 9. Screening for depression - ICD9: V79.0, ICD10: Z13.31 - DEPRESSION SCREENING 10 (more content not included)...[facility]10-01-2024 History of Present illness Narrative* Heather Davis M, AWNING INSTALLER.FELLING MACHINE OPERATOR - 06/02/2024 2:08 PM EDT Images from the original note were not included. Chio Dent Jr. is a 63 year old male here for a Medicare wellness visit. Medicare Health Risk Assessment General Health Good Exercise: Minutes/Day 0 min Exercise: Days/Week On average, how many days per week do you engage in moderate to strenuous exercise (like a brisk walk)?: 0 days (stays very active but no routine aerobic exercise) Alcohol: Daily Use Never Alcohol: Drinks/Day Patient does not drink Alcohol: 6 or more drinks Never Feel off balance No Concerns: Teeth/Dentures No Concerns: Sexual function No Troubled by feelings None of the above Frequency: Eating healthy diet More than half the days ADLs requiring help None of the above Safety precautions in home/vehicle No Smoke, vape, chews tobacco Yes, but I'm not ready to quit Difficulty hearing No Difficulty seeing No Current Providers Specialists: I have reviewed specialist-related care of the patient in the medical record. Current care team: Patient Care Team: Alexey Mayberry MD as PCP - General (Internal Medicine) Outside specialists seen: [facility], [facility], [place] [facility] Medical/Family history review Reviewed and updated problem list, medical/surgical/family/social history, medications, and allergies. Opioid use review Opioid Medications (last 90 days) No data to display Anxiety/Depression screening PHQ-2 Score: 0 TAMRA-2 Score: 0 Recommendation: no further intervention at this time Cognitive screening Mini Cog Score: 5 Cognitive screening reviewed and No further action needed (score 3-5). Functional Observation Was the patient's Timed Up & Go test unsteady or >= 12 seconds? No Advance Care Planning Surrogate decision maker and/or advance care plan documented Measurements BP 108/76 Pulse 87 Resp 24 Ht 166 cm (5' 5.35) Wt 67.4 kg (148 lb 9.4 oz) SpO2 96% BMI24.46 kg/m Vision Screening: Follows with optometry/ophthalmology Assessment/Plan Medicare annual wellness visit, subsequent () - Counseled on healthy diet and regular exercise - Fall avoidance information provided - Personalized prevention plan provided - Smoking cessation encouraged; discussed risks to health and quitting strategies. Patient is not ready to quit Additional Concerns The following concerns were also discussed with the patient: [facility] including routine labs, screeningsand medications. Denies any concerns today. He is taking all medications as prescribed without sideeffects. He has been dealing with frequent COPD exacerbations for the past few months. He will follow-up with pulmonology for this. 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 Checking BP at home with average int he 100's/70's. BP 108/76 Pulse 87 Resp 24 Ht 166 cm (5' 5.35) Wt 67.4 kg (148 lb 9.4 oz) SpO2 96% BMI24.46 kg/m Physical Exam Vitals reviewed. Constitutional: Appearance: Normal appearance. Cardiovascular: Rate and Rhythm: Normal rate and regular rhythm. Heart sounds: Normal heart sounds. No murmur heard. Pulmonary: Effort: Pulmonary effort is normal. Breath sounds: Decreased breath sounds (throughout) and wheezing (diffusely) present. Musculoskeletal: Right lower leg: No edema. Left lower leg: No edema. Skin: General: Skin is warm and dry. Neurological: Mental Status: He is alert. ASSESSMENT/PLAN: 1. Medicare annual wellness visit, subsequent - ICD9: V70.0, ICD10: Z.00 (primary diagnosis) See medicare wellness plan 2. Primary hypertension - ICD9: 401.9, ICD10: I10 - Controlled - Continue current medications - Recommend home blood pressure monitoring, to bring results to next visit - Encouraged sodium restriction, DASH or Mediterranean diet 3. Coronary artery disease involving [place] heart without angina pectoris, unspecified vessel or lesion type - ICD9: 414.01, ICD10: I25.10 Stable, continue with cardiology follow-up and recommendations 4. Hyperlipidemia, unspecified hyperlipidemia type - ICD9: 272.4, ICD10: E78.5 - Controlled 5. Chronic obstructive pulmonary disease, unspecified COPD type (HCC) - ICD9: 496, ICD10: J44.9 Frequent exacerbations recently, follow-up with pulmonology as scheduled 6. Current smoker - ICD9: 305.1, ICD10: F17.200 No desire to quit at this time 7. Other osteoporosis without current pathological fracture - ICD9: 733.09, ICD10: M81.8 Continue treatment with Fosamax and follow-[facility] 8. Seasonal allergic rhinitis due to fungal spores - ICD9: 477.8, ICD10: J30.2 Controlled with medication 9. Screening for depression - ICD9: V79.0, ICD10: Z13.31 - DEPRESSION SCREENING 10. Encounter for screening examination for other mental health and behavioral disorders - ICD9: V79.8, ICD10: Z13.39 - ANXIETY SCREENING Heather Davis APRN.FELLING MACHINE OPERATOR documented in this encounterPremier Health [facility]07-16-2024 History of Present illness Narrative* Corbin Kaufman MA - 03/17/2024 10:31 AM EDT POPULATION HEALTH NAVIGATION OUTREACH Action/I Medicare Wellness Reason for Outreach Care Gap/HCC or Scheduling Wellness Visits Care Gaps due: Medicare Annual Wellness Visit Patient Contacted: Spoke to patient/parent/or legal guardian Patient identified by name and : Yes Care Gap/HCC/Scheduling Wellness actions taken: Patient scheduled Medicare Annual Wellness Visit Navigation Signature: Corbin Kaufman MA March 17, 2024 10:31 AM documented in this encounterPremier Health [facility]05-04-2024 Discharge summary Author Alvaro Muñiz [facility] January 04, 2024 9:25pm Note Date/Time January 04, 2024 8:25pm [facility] [address] [place] [address] Emergency Department Summary 01/04/24 MR#: [id number] Acct: [id number] Name: CHIO DENT Jr. Rep #:[id number] : 1960 63 From: Alvaro Muñiz MD PCP: Dr. Alexey Mayberry MD Status:R EG ER Location: ED HPI History of Present Illness Chief Complaint: Shortness of Breath Detail of Chief Complaint: Shortness of breath, productive cough and wheezing Informant: patient Onset/Context/Timing Onset: Weeks (1.5 to 2 weeks) Context: gradual Timing: Continuous and Waxes and wanes Quality: Positive for Dyspnea on exertion and Wheezing; Negative for Orthopnea or PND Current Severity: Mild Maximum Severity: Severe Worsened by: Exertion and Coughing Relieved by: Nothing Associated Symptoms cough, rhinorrhea and yellow sputum; Negative for post nasal drip, ear pain, fever, sore throat, subjective, chills or sweats Chest Pain: Positive for None Narrative Narrative: Patient is 61-year-old male. He has history of GERD, coronary disease with stent placement, paroxysmal ventricular tachycardia, hyperlipidemia, tobacco use(decreased to quarter pack a day) and COPD. He was placed on prednisone. He was not given a prescription of for antibiotic at that time. He presents because of increased sputum production and change in color of sputum production. He also complains of wheezing and dyspnea with exertion. He denies chest tightness pressure heaviness. He denies pleuritic pain. He does have a prior history of PE on the left. He denies hemoptysis or pleuritic pain. Patient denies fever, chills night periods. Patient denies headache, visual, ocular auditory symptoms. Patient does endorserhinorrhea. He does have allergic rhinitis on Flonase. Abdomen is benign. Patient denies nausea, vomiting or diarrhea. PE Risk Factors: Positive for Prior DVT or PE; Negative for Cancer, OCP + Smoking + > 35, Recent immobilization, Recent surgery or Recent travel Prior similar symptoms: Yes (COPD) Recent Illness/Hospitalization: No PFSH PFSH Medical History Arthritis Asthma 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 Back pain BPH (benign prostatic hyperplasia) Bronchiectasis CAD (coronary artery disease) Cardiology follow-up encounter COPD (chronic obstructive pulmonary disease) COPD exacerbation Dyspepsia and disorder of function of stomach Dysphagia Emphysema, unspecified Gastric reflux GERD (gastroesophageal reflux disease) High cholesterol History of echocardiogram History of heart attack History of hiatal hernia History of pain when walking History of pulmonary embolism History of steroid therapy History of stress test History of ulceration HLD (hyperlipidemia) Hypersomnia Hypertension Ischemic cardiomyopathy Nicotine abuse Old myocardial infarction Paroxysmal atrial tachycardia Paroxysmal ventricular tachycardia Premature ventricular contraction Presence of stent in coronary artery (~06/27/08) Septic shock Shortness of breath on exertion Sleep apnea Smoker Smoking greater than 40 pack years Stage 2 moderate COPD by GOLD classification Wears dentures Wears glasses Wheezing on auscultation Home Medications clopidogrel 75 mg tablet 75 mg PO QHS blood thinner 06/16/13 [History Last Taken 11/27/22] cyanocobalamin (vitamin B-12) 1,000 mcg tablet 1,000 mcg PO DAILY vitamin 10/15/17 [History Last Taken 12/11/21] aspirin 81 mg tablet,delayed release 81 mg PO DAILY HEALTH MAINTENTANCE 12/12/21[History Last Taken 11/26/22] atorvastatin 20 mg tablet 20 mg PO QHS CHOLESTEROL 12/12/21 [History Last Taken Unknown] cholecalciferol (vitamin D3) 50 mcg (2,000 unit) tablet (Vitamin D3) 50 mcg PO DAILY SUPPLEMENT 12/12/21 [History Last Taken Unknown] gabapentin 600 mg tablet 600 mg PO QHS PRN Pain 12/12/21 [History Last Taken Unknown] lisinopril 2.5 mg tablet 2.5 mg PO DAILY BLOOD PRESSURE 12/12/21 [History Last Taken 11/29/22] montelukast 10 mg tablet (Singulair) 10 mg PO QHS BREATHING 12/12/21 [History Last Taken Unknown] PEP device 01/30/22 [History Last Taken Unknown] budesonide 160 mcg-glycopyr 9 mcg-formot 4.8 mcg/actuation HFA inhaler (Breztri Aerosphere) 2 inh inhalation BID 11/28/22 [History Last Taken Unknown] omeprazole 20 mg capsule,delayed release 40 mg (2 x 20 mg) PO BID #120 caps 12/20/22 [Rx Last Taken Unknown] albuterol sulfate 2.5 mg/3 mL (0.083 %) solution for nebulization 2.5 mg (3 mL) inhalation Q4H PRN shortness of breath or wheezing #180 mL 09/26/23 [Rx Last Taken Unknown] albuterol sulfate 90 mcg/actuation aerosol inhaler 2 puff inhalation Q4H PRN Asthma #8.5 grams 09/26/23 [Rx Last Taken Unknown] fluticasone propionate 50 mcg/actuation nasal spray,suspension (Flonase Allergy Relief) 2 spray intranasal DAILY #16 grams 09/26/23 [Rx Last Taken Unknown] guaifenesin 1,200 mg tablet, extended release 12 hr 1,200 mg PO Q12H #60 tabs 11/18/23 [Rx Last Taken Unknown] prednisone 10 mg tablet 10 mg PO QDAY #30 tabs 12/17/23 [Rx Last Taken Unknown] fexofenadine 180 mg tablet (Harriet Allergy) 180 mg PO DAILY #90 tabs 01/02/24 [Rx Last Taken Unknown] doxycycline monohydrate 100 mg capsule 100 mg PO BID #14 CAPSULES 01/04/24 [Rx Last Taken Unknown] prednisone 10 mg tablet 10 mg PO UD #33 tabs 01/04/24 [Rx Last Taken Unknown] Allergy/AdvReac Type Severity Reaction Status Date / Time latex Allergy Rash Verified 01/04/24 19:54 varenicline tartrate Allergy Hives Verified 01/04/24 19:54 [From Chantix] aspirin AdvReac Upset Verified 01/04/24 19:54 Stomach Family History Father , age 50 CAD (coronary artery disease) Heart disease Myocardial infarction Mother Diabetes Brother Hypertension Surgical History History of cardiac catheterization History of coronary artery stent placement History of hernia repair History of thumb surgery Hx of angioplasty Hx of cystoscopy Hx of nasal sinusotomy Hx of right knee surgery Hx of shoulder surgery Hx of sinus surgery Hx of tonsillectomy Presence of coronary angioplasty implant and graft (~06/27/08) Social History household members: significant other and children Smoking Status: Current every day smoker tobacco type: cigarettes and smokelesstobacco alcohol intake: never substance use type: does not use caffeine: Yes Type: coffee Number of servings: 3 what type of physical activity do you participate in: walking frequency: daily duration: 45-60 minutes/day seatbelt use: always do you feel safe at home: Yes ROS ROS ED Constitutional Constitutional ED: Reports sweats; Denies chills, fever(s) or weight loss Eyes Eyes: Denies blurry vision or change in vision ENT ENT ED: Reports rhinorrhea; Denies ear pain or sore throat Cardiovascular Cardiovascular: Denies chest pain, orthopnea, palpitations, paroxysmal nocturnaldyspnea or racing heartbeat Respiratory/Chest Respiratory/Chest: Reports cough, dyspnea, dyspnea on exertion and sputum; Denies orthopnea or paroxysmal nocturnal dyspnea Gastrointestinal Gastrointestinal: Denies abdominal pain, diarrhea, nausea or vomiting Genitourinary Genitourinary ED: Denies dysuria or hematuria Musculoskeletal Musculoskeletal: Denies arthralgias or myalgias Integumentary Denies rash Neurologic Neurologic: Denies headache(s) or weakness Psychiatric Psychiatric: Denies anxiety Hematologic/Lymphatic Hematologic/Lymphatic: Denies easy bleeding or easy bruising EXAM Physical Exam Const Vital Signs: 01/04/24 19:50 01/04/24 20:09 01/04/24 20:19 Temperature 97.2 F L 97.6 F L Temperature Source Temporal Temporal Pulse Rate 96 93 91 Respiratory Rate 16 16 18 Respiratory Pattern Normal Blood Pressure 106/80 108/73 Blood Pressure Mean 88 84 Pulse Ox 94 94 Oxygen Delivery Method Room Air 01/04/24 21:00 Temperature 97.6 F L Temperature Source Temporal Pulse Rate 91 Respiratory Rate 18 Respiratory Pattern Blood Pressure 108/73 Blood Pressure Mean 84 Pulse Ox 94 Oxygen Delivery Method Positive well nourished and well developed General Appearance ED: well developed; Negative for NAD or pallor HEENT Reports moist mucous membranes HEENT Narrative: Head is atraumatic and normocephalic. Ears normal. Nares patent with clear drainage. Nasal mucosa is zeng. Posterior pharynx is normal. Uvula is midline. Eyes PERRL and EOMs intact bilaterally General Eye ED: Negative for pale conjunctiva or scleral icterus Neck no lymphadenopathy, supple, no meningeal signs and no JVD Neck Narrative: Trachea is midline. There is no stridor. Resp No normal respiratory effort and No clear to auscultation bilaterally Auscultation: wheezes expiratory wheezes and throughout and diminished lung sounds Cardio regular rate, regular rhythm, S1 normal heart sound, S2 normal heart sound and no murmurs GI non-tender, non-distended and no masses Auscultation: normoactive bowel sounds Palpation: soft Back/Spine no CVA tenderness Extremity Extremity Narrative: There is no asymmetry, swelling, discoloration, leg vein distention, palpable cords or tenderness along the distribution of the deep venous system. Neuro oriented x3 Kira Coma Scale: document GCS findings Spontaneous Obeys Commands Oriented 15 Sensorium / Orientation: alert Psych mental status grossly normal Skin no wounds and skin turgor normal General Skin Exam: Negative for jaundice or pallor MDM MDM MDM Narrative Medical decision making narrative: Differential diagnosis is exacerbation of COPD, exacerbation chronic bronchitis,pneumonia. Patient's history is not consistent with PE. There is no concern for cardiac disease. Records from Debbi Xavier from pulmonology was reviewed. Patient had numerous ER visits for COPD. History & Record Review Additional record(s) reviewed:: Prior outpatient record, Prior ED visit and Prior labs Lab Data Attestation: I reviewed the patient's lab results. Lab results narrative: White count is normal. H&H indices normal. There is a slight shift with 72% segs. Labs: Laboratory Results - last 24 hr 01/04/24 20:20 WBC 10.1 RBC 4.55 L Hgb 13.7 Hct 41.8 MCV 91.9 MCH 30.1 MCHC 32.8 RDW Std Deviation 43.1 RDW Coeff of [place] 12.8 Plt Count 326 MPV 8.9 Immature Gran % (Auto) 0.700 Neut % (Auto) 71.8 H Lymph % (Auto) 14.5 L Story % (Auto) 8.2 Eos % (Auto) 4.4 Baso % (Auto) 0.4 Absolute Neuts (auto) 7.2 Absolute Lymphs (auto) 1.46 Nucleated RBC % 0 Radiography Chest X-Ray - ED: 2 View and Read by ED Physician (Chronic lung changes. There is no effusion or infiltrate. Cardiac silhouette size normal. Hilum is normal. Osseous trucks unremarkable. This is a 20 reviewed interpreted by de [id number]) Diagnostic Testing: Clinical Impression(s) from Imaging Studies Chest X-Ray 01/04/24 20:57 IMPRESSION: Hyperinflated lungs without focal airspace disease perhaps secondary to reactive airways disease/COPD. Electronically Signed: Berto Martínez DO at 21:20 EDT , Treatment and Re-Evaluation :: Patient was reassessed. He is no longer tachypneic. He is moving much more air. He still has wheezing. Will prescribe tapering dose of prednisone and doxycycline. He will be discharged to home. Discharge Plan Triage Chief Complaint: Shortness of Breath ED Provider: Alvaro Muñiz Dx/Rx/DC Orders Clinical Impression: HLD (hyperlipidemia), Atherosclerotic heart disease of [place] coronary artery without angina pectoris, Acute bronchospasm, Tobacco use, Acute exacerbation of chronic bronchitis, Acute exacerbation of chronic obstructive pulmonary disease,GERD (gastroesophageal reflux disease) Instructions: ED COPD Flare Prescriptions: New prednisone 10 mg tablet 10 mg PO UD Qty: 33 0RF Rx Instructions: Take 4 tablets daily for 3 days, then 3 daily for 3 days, then 2 daily for 3 days, then 1 a day for 3 days then 1 QOD for 3 doses. doxycycline monohydrate 100 mg capsule 100 mg PO BID Qty: 14 0RF No Action cyanocobalamin (vitamin B-12) 1,000 mcg tablet 1,000 mcg PO DAILY (DME) PEP device See Rx Instructions .ROUTE .MEDSUPPLY Rx Instructions: with training omeprazole 20 mg capsule,delayed release(DR/EC) 40 mg PO BID Qty: 120 1RF fexofenadine [Harriet Allergy] 180 mg tablet 180 mg PO DAILY Qty: 90 0RF clopidogrel 75 MG tablet 75 mg PO QHS Patient Comments: BLOOD THINNER aspirin 81 mg Tablet,Delayed Release (Dr/Ec) 81 mg PO DAILY gabapentin 600 mg Tablet 600 mg PO QHS PRN (Reason: Pain) atorvastatin 20 mg Tablet 20 mg PO QHS lisinopril 2.5 mg Tablet 2.5 mg PO DAILY montelukast [Singulair] 10 mg Tablet 10 mg PO QHS cholecalciferol (vitamin D3) [Vitamin D3] 50 mcg (2,000 unit) Tablet 50 mcg PO DAILY Breztri Aerosphere 160-9-4.8 mcg/actuation Hfa Aerosol Inhaler 2 inh INHALATION BID fluticasone propionate [Flonase Allergy Relief] 50 mcg/actuation spray,suspension 2 spray intranasal DAILY Qty: 16 0RF Rx Instructions: administer into each nostril albuterol sulfate 90 mcg/actuation HFA aerosol inhaler 2 puff INHALATION Q4H PRN (Reason: Asthma) Qty: 8.5 11RF albuterol sulfate 2.5 mg /3 mL (0.083 %) solution for nebulization 2.5 mg inhalation Q4H PRN (Reason: shortness of breath or wheezing) Qty: 180 11RF guaifenesin 1,200 mg tablet extended release 12hr 1,200 mg PO Q12H Qty: 60 6RF prednisone 10 mg tablet 10 mg PO QDAY Qty: 30 0RF Rx Instructions: take 4 tabs for three days, then 3 tabs for three days, then 2 tabs for threedays, then 1 tab for 3 days Primary Care Provider: Alexey Mayberry Referrals: Alexey Mayberry MD [Primary Care Provider] - 3-5 Days if not improving Disposition Disposition: Home, Self Care What to do if you have Problems For any increased pain, shortness of breath, bleeding, nausea or vomiting, chestpain, or any unexpected problems, contact your Primary Care Provider. Call [facility] ([phone]) or report to the closest Emergency Room. Call 911 if necessary. 01/04/242124 <Electronically signed by Alvaro Muñiz MD> Cosigner Signature (if applicable): CC: Dr. Alexey Mayberry MD ~ Signed [facility] [place] Work Phone: 1(492) 617-980206-26-2023 Procedure [facility] 01-25-2023 Procedure [facility]04-17-2023 History of Present illness Narrative* Eun Contreras PA-C - 12/17/2022 12:21 PM EDT This note was created using NoteWriter. Subjective Chio Dent Jr. is a 62 year old male. HPI Patient presents with his left ear feeling clogged the past day. He tried some Debrox in it but didnot seem to help. He has difficulty hearing. He has had cough and congestion over the past 2 weeks.He was seen at PCP 2 to 3 [...] Acute on chronic respiratory failure with hypoxemia ([facility]) 06/29/2019 [facility]. ventilation Acute respiratory failure with hypoxia and hypercarbia ([facility]) 06/29/2021 [facility]. vent. x 3 days Asthma Bronchiectasis with acute exacerbation ([facility]) 07/12/2021 COPD (chronic obstructive pulmonary disease) ([facility]) [place]es [place] Coronary artery disease involving [place] heart without angina pectoris 03/21/2017 Dr. Crispin Upton, cardiology. Environmental allergies year round Erectile dysfunction GERD (gastroesophageal reflux disease) Hematuria 09/27/2011 History of IL (myocardial infarction) 06/27/2008 [facility] [place] Hyperlipidemia Hypertension Ischemic cardiomyopathy 06/27/2008 improved. Lesion of bladder 09/27/2011 Nasal polyposis 11/09/2015 VIVI on CPAP 03/20/2019 Paroxysmal atrial tachycardia (HCC) Paroxysmal ventricular tachycardia ([facility]) Tobacco use disorder Current Outpatient Medications Medication Sig Dispense Refill atorvastatin (LIPITOR) 20 mg tablet Take 1 tablet by mouth daily at bedtime. For cholesterol. 90 tablet 3 lisinopril 2.5 mg tablet Take 2.5 mg by mouth once daily. gabapentin (NEURONTIN) 600 mg tablet Take 1 tablet by mouth daily at bedtime. [place] medication. tiotropium-olodaterol (STIOLTO RESPIMAT) 2.5-2.5 mcg/actuation Inhale [...] 71.7 kg (158 lb) SpO2 100% BMI 24.02kg/m Physical Exam Vitals reviewed. Constitutional: Appearance: Normal appearance. HENT: Head: Normocephalic and atraumatic. Right Ear: Tympanic membrane, ear canal and external ear normal. Left Ear: External ear normal. Ears: Comments: Patient has a cerumen impaction in the left external auditory canal. Also has an abrasionnoted. After flushing by nursing staff ear canal [...] with prednisone and doxycycline. 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 Discussed red flags to be seen in the ER PCP. Oxygenating well. In no distress. Eun Contreras PA-C documented in this encounterPrem[facility] Nurse Note* Nicolette Earl MA - 12/17/2022 11:44 AM EDT Ambulatory Ear Lavage Pre-treatment: Ear Canal/Tympanic membrane assessed by DERICK Contreras PA-C Treatment: Left ear Equipment and Irrigation solution and Volume used: Single use syringe with single use irrigation tip Return flow appearance: Debris Patient tolerated procedure: yes Post-treatment: Post Irrigation Post-treatment: Ear Canal/Tympanic membrane assessed by DERICK Contreras PA-C documented in this encounterPremier [facility]03-30-2023 Procedure [facility]03-30-2023 Procedure [facility]11-05-2022 Note. MICRO - Microbiology PROCEDURE: Blood Culture (bacterial) [...] Locations *1: This test was performed at: [address], [facility] , [facility] ([place])06-18-2022 History of Present illness Narrative* Heather Flores, AWNING INSTALLER.IRMA - 06/18/2022 1:53 PM EDT CC: Patient presents with: F/U 6 months HPI Chio Humphreys Filipe Benites. is a 61 year old male who presents today for above. [facility] gets most [place] [facility] [place] the [place]. Hypertension Medication changes:No Taking all medications as prescribed: Yes Side effects: No Home BP's: Yes 120's/70's on average Denies: headache, chest pain, palpitations, dyspnea and peripheral edema. Last 3 Encounter BP Readings: Date: BP: 06/18/2022 128/78 01/19/2022 156/138 01/19/2022 100/72 COPD (chronic obstructive pulmonary disease) (HCC) COPD [...] Flonase, Astelin, Zyrtec and Singulair. Symptoms aremanageable. REVIEW OF SYSTEMS See HPI PAST MEDICAL HISTORY Diagnosis Date Acute on chronic respiratory failure with hypoxemia ([facility]) 06/29/2019 [facility]. ventilation Acute respiratory failure with hypoxia and hypercarbia ([facility]) 06/29/2021 [facility]. vent. x 3 days Asthma Bronchiectasis with acute exacerbation ([facility]) 07/12/2021 COPD (chronic obstructive pulmonary disease) ([facility]) [place] Coronary artery disease involving [place] heart without angina pectoris 03/21/2017 Dr. Crispin Upton, cardiology. Environmental allergies year round Erectile dysfunction GERD (gastroesophageal reflux disease) Hematuria 09/27/2011 History of [place] (myocardial infarction) 06/27/2008 [facility] [place] Hyperlipidemia Hypertension Ischemic cardiomyopathy 06/27/2008 improved. Lesion of bladder 09/27/2011 Nasal polyposis 11/09/2015 VIVI on CPAP 03/20/2019 Paroxysmal atrial tachycardia ([facility]) Paroxysmal ventricular tachycardia Tobacco use disorder PAST [...] told me it was pushing too much airinto my lungs and making COPD worse. Denies snoring, un- refreshed sleep, insomnia, excessive daytime drowsiness. Prescription instructions reviewed with patient as applicable. Potential red flag symptoms discussed with the patient. Reviewed appropriate action plan to take if red flag symptoms occur. Patient agreeable to treatment plan. Heather Flores APRN.IRMA documented in this encounterPremier [facility]10-14-2022 Miscellaneous Notes* Telephone Encounter - Heather Flores APRN.CNP - 06/15/2022 7:50 AM EDT Noted and agree Heather Flores APRN.CNP * Telephone Encounter - Ivonne Moran RN - 06/14/2022 4:11 PM EDT Patient calls to report a hard knot to right thumb. Nurse triage completed. Protocol recommends seeprovider within 3 days. Patient scheduled to see provider on Saturday06/18/2022 and will address at that appointment. No fever or s/s of infection. Care advice reviewed. Will call back for any changesor questions. Reason for Disposition [1] Small swelling [...] fever Protocols used: Skin Lump or Localized Ofoovpsw-[id number] documented in this encounterPremier [facility]06-10-2022 Miscellaneous Notes* Telephone Encounter - Ivonne Moran RN - 02/09/2022 9:35 AM EDT Patient calls and reports that he has atorvastatin on hand from [facility] and doesn't needthis prescription. Patient reports [facility] is his preferred pharmacy. Ivonne Moran RN * Telephone Encounter - Shannan Dao MA - 02/09/2022 9:03 AM EDT L/m for patient to contact office to make sure this does not need filled at [facility]. Sent Bridge[employer] Communicationst message. .Patient has been identified by name and date of : Yes Pending Prescriptions Disp Refills ATORVASTATIN 40 MG TABLET 90 tablet 1 Sig: TAKE 1 TABLET BY MOUTH EVERY DAY JACLYN: Yes RX INSTRUCTIONS: Patient aware RX will be sent to pharmacy. No need to notify patient. Shannan Dao MA Tenzin: 12/2021 Nov: 06/2022 documented in this encounterPrem[facility]06-10-2022 Miscellaneous Notes* Telephone Encounter - Ivonne Moran RN - 02/09/2022 9:32 AM EDT Patient calls in and verifies that [facility] is current. Patient has Lipitor prescription. Ivonne Moran RN documented in this encounterPremier [facility]06-02-2022 Miscellaneous Notes* Telephone Encounter - Malena Gilliland RN - 02/01/2022 9:31 AM EDT Patient calling and states [facility] in [place] states they never received Lipitor script sent on 01/08/22. Patient requesting script be sent to a different pharmacy due to issues with [facility]. Asking for it to sent to [facility] in [place] please. Thank you. documented in this encounterPremier Health [facility]05-18-2022 History of Present illness Narrative* Vinay Mtz, RT(R) - 01/17/2022 2:15 PM EDT Radiology Service Progress Note PATIENT NAME: Chio Dent Jr. DATE OF SERVICE: January 17, 2022 TIME: 2:14 PM PATIENT IDENTITY VERIFICATION COMPLETED USING TWO (2) IDENTIFIERS: Name and Date of confirmedby patient verbally. FALL SCREENING: Has the patient had 2 falls in the last year or 1 fall with injury or currently using an Ambulatory Assistive Device (Walker, Cane, Wheelchair, Crutches, etc.)? No PATIENT GENDER DATA: Male PATIENT RELEVANT IMPLANT DATA REVIEWED: Not Applicable RADIOLOGY DEPARTMENT: General X-ray: Exam(s) Completed: Chest X-Ray PERIPHERAL IV DATA: Not applicable SIGNED BY: RT Lori(R) January 17, 2022 2:14 PM documented in this encounterPremier Health [facility]05-18-2022 Instructions* Patient Instructions* Olivia Phipps APRN.FELLING MACHINE OPERATOR - 01/17/2022 1:50 PM EDT PATIENT PREOPERATIVE INSTRUCTIONS No ref. provider found has scheduled you for your procedure at this surgery center: [facility]: [phone] --[id number] [place] [address]. Please enter through the entrance closest to [...] Procedures: - YOU MUST HAVE A RESPONSIBLE BENEFIT SPECIALIST TAKE YOU HOME. A ASSISTANT PROFESSOR OF COMMUNICATION OR JUNIOR DATABASE ADMINISTRATOR CANNOT BE MADE A RESPONSIBLE BENEFIT SPECIALIST. - We recommend that a responsible person stays with you overnight to take care of you. - You cannot stay in a hotel alone after outpatient surgery. You will not be permitted to have yoursurgery, if you do not have someone to [...] Advance Directive, please fax a copy to [phone] or email to for it to be added to your chart. If you do not have an Advance Directive, you can find the appropriate form and more information at [email or web address]. We recommend that youcomplete the Advance Directive form found on the website and bring it with you the day of your surgery. It can be witnessed and scanned into your chart that day. Olivia Phipps APRN.CNP documented in this encounterPremier Health [facility]05-18-2022 History and physical note * Olivia Phipps APRN.CNP - 01/17/2022 1:46 PM EDT HISTORY AND PHYSICAL EXAMINATION SERVICE DATE: 01/17/2022 SERVICE TIME: 1:46 PM PRIMARY CARE PHYSICIAN: Alexey Mayberry MD REASON FOR VISIT: Chio Dent Jr. is a 61 year old male who is scheduled for EGD at the request of DrMinerva @[email or web address]@ for consultation. My final recommendation will be communicated back to the requesting physician by way of shared medical record or letter. Subjective The patient has the following: ACTIVE PROBLEM LIST Hyperlipidemia Asthma Copd (Chronic Obstructive Pulmonary Disease) (Hcc) Former Smoker Hypertension Nasal Polyposis Coronary Artery Disease Involving [place] Heart Without Angina Pectoris Seasonal Allergic Rhinitis Due to Fungal Spores Allergic Rhinitis Due to Dust Mite Seasonal Allergic Rhinitis Due to Pollen Vivi On Cpap Bronchiectasis With Acute Exacerbation (Hcc) Dysphagia COVID-19 Immunization Status Postponed - COVID-19 VACCINE (1) Postponed until 06/20/2022 06/20/2021 Postponed until 06/20/2022 by Heather Flores APRN.CNP (Declined at this time) CHIEF COMPLAINT: Pre-op exam HPI: RB is a 61 yo seen for PAC due to scheduled above surgery because of dysphagia. 01/05/2022 Deanna Zapata CNP Chio Humphreys Filipe Edmond is a 61 year old male who [...] stuck. Denies issues with liquids. He admits whenfood does become stuck he will get the [...] [facility] been [facility] far. No known FHx of GI tract malignancy or disease. No prior abdominopelvic surgeries. He admits to being a heavy cigarette smoker for approximately 46 years. He recently quit in July. REVIEW OF SYSTEMS: General: No weight loss, malaise or fevers. 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 No neurological symptoms or problems. Respiratory: +former smoker 1ppd/45+years Positive for: asthma (on rx), COPD (on rx) and obstructive sleep apnea. Negative for: pneumonia within 6 weeks, tobacco use and URI < 2 weeks. Cardiovascular: Positive for: anticoagulation therapy, CAD, DVT/PE (PE, 2007), hyperlipidemia (on rx) and hypertension (on rx) Patient's last office visit with rope machine setter, [facility], The following tests and/or procedures were performed: cardiac stents. Negative for: arrhythmia, atrial fibrillation, chest pain, CHF, congenital heart defect, recent [place],murmur/valvular heart disease, open heart surgery and valve [...] chronic respiratory failure with hypoxemia (HCC) 06/29/2019 [facility]. ventilation Acute respiratory failure with hypoxia and hypercarbia ([facility]) 06/29/2021 [facility]. vent. x 3 days Asthma Bronchiectasis with acute exacerbation ([facility]) 07/12/2021 COPD (chronic obstructive pulmonary disease) ([facility]) [place] Coronary artery disease involving [place] heart without angina pectoris 03/21/2017 Dr. Crispin Upton, cardiology. Environmental allergies year round Erectile dysfunction GERD (gastroesophageal reflux disease) Hematuria 09/27/2011 History of [place] (myocardial infarction) 06/27/2008 [facility] [place] Hyperlipidemia Hypertension Ischemic cardiomyopathy 06/27/2008 improved. Lesion of bladder 09/27/2011 Nasal polyposis 11/09/2015 VIVI on CPAP 03/20/2019 Paroxysmal atrial tachycardia ([facility]) Paroxysmal ventricular tachycardia ([facility]) Tobacco use disorder PAST SURGICAL HISTORY Procedure [...] by mouth daily at bedtime. [facility] medication. TakingYes tiotropium-olodaterol (STIOLTO RESPIMAT) 2.5-2.5 mcg/actuation Inhale 2 [...] Take 1 tablet by mouth once daily. [place] medication for allergies. Taking Yes Cholecalciferol, Vitamin [...] A1C (%) Date Value 12/08/2020 5.6 HBA1C, [place] (%) Date Value 09/13/2011 5.4 No results found for this or any previous visit (from the past 8760 hour(s)). No results found for this or any previous visit (from the past 67312 hour(s)). Assessment Asthma Assessment: controlled on rx COPD (chronic obstructive pulmonary disease) (HCC) Assessment: controlled on rx, following [facility] Dr. Devries, CXR due to pt exp wheeze, CXR normal pre-op. Encouraged pt to use inhaler morning of procedure. Coronary artery disease involving [place] heart without angina pectoris Assessment: h/o cardiac stents, following [facility], daily Plavix and ASA therapy, pt hasnot stopped his Plavix, last dose yesterday 01/16/2022, [...] undue shortness of breath with the above physicalactivity. Clinical Frailty Scale: 3. Well, with treated comorbid disease ASA Class: 3 ANESTHESIA FINDINGS: Intubation History: No history of difficult intubation Significant Anesthesia Considerations: none Airway History: No history of difficult airway [id number] Score: Age: <65 Sex: Male CHF history: [...] and consent discussed: yes. Patient / Responsible Green Party agrees to proceed: yes Patient / Surrogate agrees to blood products: blood products not planned Prepared for Surgery: optimally prepared for surgery. CONSULTS: Patient does not require consults for optimization at this time The Following Tests/Procedures Have Been Initiated: Orders Placed This Encounter XR CHEST 2V FRONTAL/LAT Standing Status: Future Number of Occurrences:1 Standing Expiration Date: 02/16/2023 lisinopril 2.5 mg tablet Sig: Take 2.5 mg by mouth once daily. Planned Anesthetic: other anesthesia choice Instructions Given to Patient: Instructions located in the after visit summary. Patient given verbal and written preop instructions and voices comprehension and compliance. SIGNATURE: Olivia Phipps APRN.CNP PATIENT NAME: Chio Dent Jr. DATE: January 17, 2022 TIME: 1:46 PM PAGER/CONTACT #: documented in this encounterPrem[facility] Miscellaneous Notes* Telephone Encounter - Delvis Cooper LPN - 01/06/2022 9:32 AM EDT Patient phones requesting refills as follows: Pending Prescriptions Disp Refills ATORVASTATIN 40 MG TABLET 90 tablet 1 Sig: TAKE 1 TABLET BY MOUTH EVERY DAY JACLYN: Yes TENZIN 12/19/21 NOV 06/18/22 Please review and advise. Delvis Cooper LPN documented in this encounterPrem[facility]05-06-2022 Instructions* Patient Instructions* Deanna Burnham APRN.CNP - 01/05/2022 3:04 PM EDT Thank you for seeing me in clinic today. It was very nice to meet you! As we discussed, my recommendations are as follows: 1.EGD If you have any questions about the above treatment plan, please do not hesitate to send me a [employer] message or call the [facility] at [phone] to route me amessage. What is Upper Endoscopy? (Also known as [...] a local anesthetic before the procedure and youwill be given medication through a vein to help you relax. A small flexible tube will be placed in your mouth and will then be passed through the esophagus, stomach and duodenum. The endoscope does not interfere with your airway. Most patients consider the test to be only slightly uncomfortable andmany patients fall asleep during the test. What happens After Endoscopy? After the test you will be monitored in the endoscopy area until mostof the medication has worn off. Your throat may be sore for a short period of time and you may feelslightly bloated after the procedure due to the [...] with specialized training and experience in the procedure.Bleeding may occur from a biopsy site or [...] potential complications. If you begin to have difficultyswallowing or have increased throat, chest or abdominal [...] procedure, discontinue iron, blood thinning medications including Coumadin(Warfarin), Plavix (Clopidogrel Bisulfate), Effient and Pradaxa. You need to have a responsible mobile lounge driver or operator on the day of your procedure. You are not permitted to drive or work due to the medication you will receive. Due to the sedation, Taxi Cabs, Uber, Senior Transportation, or [employer] are NOT acceptable unless you bring another person with you. This is for your safety and therefore, no exceptions will be made. documented in this encounterPrem[facility]05-06-2022 History and physical note * Deanna Burnham APRN.CNP - 01/05/2022 3:00 PM EDT Consultation requested by Dr. Kamran Cruz for an opinion regarding dysphagia. My final recommendations will be communicated back to the requesting physician by way of shared medical record or fax. REASON FOR VISIT: Dysphagia HPI: Chio Dent Jr. is a 61 year [...] stuck. Denies issues with liquids. He admits whenfood does become stuck he will get the [...] [facility] which have been negative thus far. No [...] Acute on chronic respiratory failure with hypoxemia ([facility]) 06/29/2019 [facility]. ventilation Acute respiratory failure with hypoxia and hypercarbia ([facility]) 06/29/2021 [facility]. vent. x 3 days Asthma Bronchiectasis with acute exacerbation ([facility]) 07/12/2021 COPD (chronic obstructive pulmonary disease) ([facility]) Sees [place] Coronary artery disease involving [place] heart without angina pectoris 03/21/2017 Dr. Crispin Upton, cardiology. Environmental allergies year round Erectile dysfunction GERD (gastroesophageal reflux disease) Hematuria 09/27/2011 History of [place] (myocardial infarction) 06/27/2008 [facility] [place] Hyperlipidemia Hypertension Ischemic cardiomyopathy 06/27/2008 improved. Lesion [...] headaches, changes in hearing/vision, nose bleeds or othernasal problems RESPIRATORY: Negative for cough, hemoptysis, wheezing [...] get relief when something is stuck. Denies issueswith liquids. He admits when food does become [...] bed elevation -Continue omeprazole 40 mg daily Deanna Burnham APRN.CNP . documented in this encounterPremier [facility]04-19-2022 Instructions* Patient Instructions* Kamran Cruz APRN.CNP, DNP - 12/19/2021 10:44 AM EDT Follow up with Alexey Mayberry MD if symptoms worsen Schedule neck/thyroid ultrasound Schedule gastroenterology consultation Continue with acid reflux medication Return to the clinic or seek care at [facility] for any worsening signs or symptoms: such as fevers, chills, worsening pain, nausea, or diarrhea. For severe symptoms seek care at the closestER. Plan of care, medicaiton side effects and [...] and maintaining your health. Kamran Cruz APRN.YONG OSLIS documented in this encounterPrem[facility]04-19-2022 History of Present illness Narrative* Kamran Cruz APRN.YONG SOLIS - 12/19/2021 10:20 AM EDT Chief Complaint Patient presents with: Difficulty Swallowing: X 1 month HPI Chio Dent . is a 61 year old male who presents here today for a 1 month hx of dif swallowing. This is an established patient of Dr. Alexey Mayberry MD. Denies any recent ER visits or hospitalizations. Specialty providers: Pulmonology: Dr. Devries. Difficulty swallowing: Difficulty swallowing foods that started Saturday. States he has had a problemfor approximately 1 month. Saturday was the worst episode. No problem swallowing liquids or soft foot. Trouble swallowing meat, bread, burrito shell, soft pretzel bites. Saturday soft pretzel bite got stuck in throat- had to almost vomit to get it back up. Saturday meat got stuck in his throat- had to cou gh until it came back up. Food gets stuck near his quintana apple. Symptoms started last week. Throat is not swollen or painful. Tonsils removed at age 6. When food gets stuck, gets hiccups, lasts about4-5 min. Hiccups go away when he gets [...] COPD exacerbation. Followed by Dr. Devries at [facility] for his COPD. Uses inhalers for COPD. Past medical history, appointments, medications, allergies reviewed 12/18/2021 Previous Medical History PAST MEDICAL HISTORY Diagnosis Date Acute on chronic respiratory failure with hypoxemia (HCC) 06/29/2019 [facility]. ventilation Acute respiratory failure with hypoxia and hypercarbia (HCC) 06/29/2021 [facility]. vent. x 3 days Asthma Bronchiectasis with acute exacerbation (HCC) 07/12/2021 COPD (chronic obstructive pulmonary disease) ([facility]) Sees [place] Coronary artery disease involving [place] heart without angina pectoris 03/21/2017 Dr. Crispin Upton, cardiology. Environmental allergies year round Erectile dysfunction GERD (gastroesophageal reflux disease) Hematuria 09/27/2011 History of [place] (myocardial infarction) 06/27/2008 [facility] [place] Hyperlipidemia Hypertension Ischemic cardiomyopathy 06/27/2008 improved. Lesion [...] his symptoms. Recommend he continue follow-up with [facility] pulmonology. Plan: Schedule neck/thyroid ultrasound Schedule gastroenterology consultation Continue with acid reflux medication Return to the clinic or seek care at [facility] for any worsening signs or symptoms: such as fevers, chills, worsening pain, nausea, or diarrhea. For severe symptoms seek care at the closestER. Plan of care, medicaiton side effects and [...] APRN.YONG SOLIS This note was completed with [employer] dictation software. Note was reviewed for accuracy. There may be minor misspellings or grammar miscues with [employer] Dictation. I spent a total of 21 minutes on the date of the service which included preparing to see the patient, [id number] patient care, completing clinical documentation, performing a medically appropriate examination, counseling and educating the patient/family/caregiver and ordering medications, tests, or procedures. [place] [id number] documented in this encounterPremier [facility]04-18-2022 Miscellaneous Notes* Telephone Encounter - Kamran Cruz APRN.CNP, DNP - 12/18/2021 3:06 PM EDT Noted and agree- if symptoms worsen he should go to the ER. If food gets lodged in throat he shouldgo to the ER. Kamran Cruz APRN.CNP, DNP * Telephone Encounter - Claudine Baptiste RN - 12/18/2021 1:08 PM EDT Protocol recommends see provider in 24 hours. Scheduled appt with [employer] Specialist for tomorrow morning. Patient will not eat the foods that trigger the problem (meat, breads). Patient agreeable to ER if food getsstuck in throat again. Reason for Disposition [1] [...] [facility]. Tonsils removed at age 6. [...] breathing or cough-except for what he normally haswith his COPD, no swollen tongue, no CP. 6. : N/A Protocols used: SWALLOWING [id number] documented in this encounterPremier Health [facility]04-15-2022 History of Present illness Narrative* Alexey Mayberry MD - 12/15/2021 5:07 PM EDT This note was created using [employer]. Subjective Transitional Care Management Progress Note The patients TCM visit was performed within the 7 days of discharge. Patient's Date of discharge: 4/14/22 Date of initial coordinator contact after discharge: [...] assessment and plan with the patient and anyfamily members present at today s visit. He [...] Asthma Copd (Chronic Obstructive Pulmonary Disease) (Hcc) Tobacco Use Disorder Hypertension Nasal Polyposis Coronary Artery Disease Involving [place] Heart Without Angina Pectoris Seasonal Allergic Rhinitis Due to Fungal Spores Allergic Rhinitis Due to Dust Mite Seasonal Allergic Rhinitis Due to Pollen Vivi On Cpap Bronchiectasis With Acute Exacerbation (Hcc) Current Outpatient Medications Medication Sig atorvastatin (LIPITOR) [...] acute exacerbation (HCC) - ICD9: 491.21, ICD10: J44.1(primary diagnosis) - LEVOFLOXACIN 500 MG TABLET - PREDNISONE 20 MG TABLET - STIOLTO RESPIMAT 2.5 MCG-2.5 MCG/ACTUATION SOLUTION FOR INHALATION 2. Pneumonia due to infectious organism, unspecified laterality, unspecified part of lung - ICD9: 486, ICD10: J18.9 - LEVOFLOXACIN 500 MG TABLET - PREDNISONE 20 MG TABLET 3. Coronary artery disease involving [place] heart without angina pectoris, unspecified vessel or lesion type - ICD9: 414.01, ICD10: I25.10 Stable. Cancel follow up 12/29 and reschedule to 6 months. Alexey Mayberry MD documented in this encounterPrem[facility]-26[facility] History of Past illness Narrative* Problem Noted Date Resolved Date Hematuria 09/27/2011 11/09/2015 Lesion of bladder 09/27/2011 11/09/2015 History of [place] (myocardial infarction) 06/02/2008 03/21/2017 Erectile dysfunction 11/09/2015 GERD (gastroesophageal reflux disease) 11/09/2015 documented as of this encounter (statuses as of 12/11/2021) [address]26-2012 History of Past illness Narrative* Problem Noted Date Resolved Date Hematuria 09/27/2011 11/09/2015 Lesion of bladder 09/27/2011 11/09/2015 History of [place] (myocardial infarction) 06/02/2008 03/21/2017 Erectile dysfunction 11/09/2015 GERD (gastroesophageal reflux disease) 11/09/2015 documented as of this encounter (statuses as of 12/19/2021) [address]26-2012 History of Past illness Narrative* Problem Noted Date Resolved Date Hematuria 09/27/2011 11/09/2015 Lesion of bladder 09/27/2011 11/09/2015 History of [place] (myocardial infarction) 06/02/2008 03/21/2017 Erectile dysfunction 11/09/2015 GERD (gastroesophageal reflux disease) 11/09/2015 documented as of this encounter (statuses as of 12/20/2021) [place] [id number] History of Past illness Narrative* Problem Noted Date Resolved Date Hematuria 09/27/2011 11/09/2015 Lesion of bladder 09/27/2011 11/09/2015 History of [place] (myocardial infarction) 06/02/2008 03/21/2017 Erectile dysfunction 11/09/2015 GERD (gastroesophageal reflux disease) 11/09/2015 documented as of this encounter (statuses as of 12/21/2021) [place] [id number] History of Past illness Narrative* Problem Noted Date Resolved Date Hematuria 09/27/2011 11/09/2015 Lesion of bladder 09/27/2011 11/09/2015 History of [place] (myocardial infarction) 06/02/2008 03/21/2017 Erectile dysfunction 11/09/2015 GERD (gastroesophageal reflux disease) 11/09/2015 documented as of this encounter (statuses as of 12/27/2021) [facility] History of Past illness Narrative* Problem Noted Date Resolved Date Hematuria 09/27/2011 11/09/2015 Lesion of bladder 09/27/2011 11/09/2015 History of [place] (myocardial infarction) 06/02/2008 03/21/2017 Erectile dysfunction 11/09/2015 GERD (gastroesophageal reflux disease) 11/09/2015 documented as of this encounter (statuses as of 01/05/2022) [address]26-2012 History of Past illness Narrative* Problem Noted Date Resolved Date Hematuria 09/27/2011 11/09/2015 Lesion of bladder 09/27/2011 11/09/2015 History of [place] (myocardial infarction) 06/02/2008 03/21/2017 Erectile dysfunction 11/09/2015 GERD (gastroesophageal reflux disease) 11/09/2015 documented as of this encounter (statuses as of 01/08/2022) [facility] History of Past illness Narrative* Problem Noted Date Resolved Date Hematuria 09/27/2011 11/09/2015 Lesion of bladder 09/27/2011 11/09/2015 History of [place] (myocardial infarction) 06/02/2008 03/21/2017 Erectile dysfunction 11/09/2015 GERD (gastroesophageal reflux disease) 11/09/2015 documented as of this encounter (statuses as of 01/18/2022) [facility] History of Past illness Narrative* Problem Noted Date Resolved Date Hematuria 09/27/2011 11/09/2015 Lesion of bladder 09/27/2011 11/09/2015 History of [place] (myocardial infarction) 06/02/2008 03/21/2017 Erectile dysfunction 11/09/2015 GERD (gastroesophageal reflux disease) 11/09/2015 documented as of this encounter (statuses as of 01/18/2022) [facility] History of Past illness Narrative* Problem Noted Date Resolved Date Hematuria 09/27/2011 11/09/2015 Lesion of bladder 09/27/2011 11/09/2015 History of [place] (myocardial infarction) 06/02/2008 03/21/2017 Erectile dysfunction 11/09/2015 GERD (gastroesophageal reflux disease) 11/09/2015 documented as of this encounter (statuses as of 02/02/2022) [place] [id number] History of Past illness Narrative* Problem Noted Date Resolved Date Hematuria 09/27/2011 11/09/2015 Lesion of bladder 09/27/2011 11/09/2015 History of [place] (myocardial infarction) 06/02/2008 03/21/2017 Erectile dysfunction 11/09/2015 GERD (gastroesophageal reflux disease) 11/09/2015 documented as of this encounter (statuses as of 02/09/2022) [facility] of Past illness Narrative* Problem Noted Date Resolved Date Hematuria 09/27/2011 11/09/2015 Lesion of bladder 09/27/2011 11/09/2015 History of [place] (myocardial infarction) 06/02/2008 03/21/2017 Erectile dysfunction 11/09/2015 GERD (gastroesophageal reflux disease) 11/09/2015 documented as of this encounter (statuses as of 02/09/2022) [facility] of Past illness Narrative* Problem Noted Date Resolved Date Hematuria 09/27/2011 11/09/2015 Lesion of bladder 09/27/2011 11/09/2015 History of [place] (myocardial infarction) 06/02/2008 03/21/2017 Erectile dysfunction 11/09/2015 GERD (gastroesophageal reflux disease) 11/09/2015 documented as of this encounter (statuses as of 02/20/2022) [facility] of Past illness Narrative* Problem Noted Date Resolved Date Hematuria 09/27/2011 11/09/2015 Lesion of bladder 09/27/2011 11/09/2015 History of [place] (myocardial infarction) 06/02/2008 03/21/2017 Erectile dysfunction 11/09/2015 GERD (gastroesophageal reflux disease) 11/09/2015 documented as of this encounter (statuses as of 06/15/2022) [facility] of Past illness Narrative* Problem Noted Date Resolved Date Hematuria 09/27/2011 11/09/2015 Lesion of bladder 09/27/2011 11/09/2015 History of [place] (myocardial infarction) 06/02/2008 03/21/2017 Erectile dysfunction 11/09/2015 GERD (gastroesophageal reflux disease) 11/09/2015 documented as of this encounter (statuses as of 06/18/2022) [facility] of Past illness Narrative* Problem Noted Date Resolved Date Hematuria 09/27/2011 11/09/2015 Lesion of bladder 09/27/2011 11/09/2015 History of [place] (myocardial infarction) 06/02/2008 03/21/2017 Erectile dysfunction 11/09/2015 GERD (gastroesophageal reflux disease) 11/09/2015 documented as of this encounter (statuses as of 12/17/2022) [facility] + Plan note No data available for this section [facility] Evaluation note* Diagnosis Hyperlipidemia, unspecified documented in this encounter [facility] note* Diagnosis Onset Date Resolution Status Asthma exacerbation in COPD resolved Hypoxia resolved Respiratory failure resolved Asthma-COPD overlap syndrome chronic Smoking greater than 40 pack years resolved Bronchiectasis acute Asthma-COPD overlap syndrome chronic Smoking greater than 40 pack years resolved Pneumonia involving right lung acute Respiratory failure with hypoxia acute COPD with acute exacerbation chronic [facility] [place] Work Phone: evaluation note* Diagnosis Difficulty swallowing solids- Primary Dysphagia, unspecified Bronchiectasis with acute exacerbation (HCC) Bronchiectasis with acute exacerbation documented in this encounter [facility] note* Diagnosis Chronic obstructive pulmonary disease with acute exacerbation (HCC)- Primary Obstructive chronic bronchitis with exacerbation Pneumonia due to infectious organism, unspecified laterality, unspecified part of lung Coronary artery disease involving [place] heart without angina pectoris, unspecified vessel or lesion type documented in this encounter [facility] note* Diagnosis Difficulty swallowing solids Dysphagia, unspecified documented in this encounter [facility] note* Diagnosis Dysphagia, unspecified type- Primary Gastroesophageal reflux disease, unspecified whether esophagitis present documented in this encounter [facility] note* Diagnosis Hyperlipidemia, unspecified hyperlipidemia type documented in this encounter [facility] note* Diagnosis Onset Date Resolution Status COPD with acute exacerbation resolved Pneumonia involving right lung resolved Respiratory failure with hypoxia resolved [facility] [place] Work Phone: [employer] note* Diagnosis Pre-operative examination Preoperative examination, unspecified documented in this encounter [facility] note* Diagnosis Pre-operative examination- Primary Preoperative examination, unspecified Dysphagia, unspecified type Asthma with acute exacerbation, unspecified asthma severity, unspecified whether persistent Chronic obstructive pulmonary disease with acute exacerbation (HCC) Obstructive chronic bronchitis with exacerbation Coronary artery disease involving [place] heart without angina pectoris, unspecified vessel or lesion type Hyperlipidemia, unspecified hyperlipidemia type Primary hypertension Unspecified essential hypertension VIVI on CPAP Obstructive sleep apnea (adult) (pediatric) Former smoker Personal history of tobacco use, presenting hazards to health documented [facility] this encounter [facility] Diagnosis Primary hypertension- Primary Unspecified essential hypertension Dysphagia, unspecified type Chronic obstructive pulmonary disease with acute exacerbation (HCC) Obstructive chronic bronchitis with exacerbation Allergic rhinitis due to dust mite VIVI on CPAP Obstructive sleep apnea (adult) (pediatric) * Assessment & Plan Note - Heather Flores APRN.CNP - 06/18/2022 2:07 PM EDT Associated Problem(s): Allergic rhinitis due to dust mite Managed by Mariela CARTWRIGHT. Currently treated with Flonase, Astelin, Zyrtec and Singulair. Symptoms aremanageable. * Assessment & Plan Note - Heather Flores APRN.CNP - 06/18/2022 2:07 PM EDT Associated Problem(s): Dysphagia He had EGD last month that was normal. Still experiencing dysphagia. Denies any new or worsening symptoms. * Assessment & Plan Note - Heather Flores APRN.CNP - 06/18/2022 2:06 PM EDT Associated Problem(s): COPD (chronic obstructive pulmonary disease) (HCC) COPD symptoms have improved since the addition of Stiolto, especially cough. Not using inhalers or nebulizer treatments as much either. * Assessment & Plan Note - Heather Flores APRN.CNP - 06/18/2022 2:05 PM EDT Associated Problem(s): Hypertension Medication changes:No Taking all medications as prescribed: Yes Side effects: No Home BP's: Yes 120's/70's on average Denies: headache, chest pain, palpitations, dyspnea and peripheral edema. 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 acute HLD (hyperlipidemia) acute Paroxysmal atrial tachycardia acute Paroxysmal ventricular tachycardia acute Premature ventricular contraction acute Presence of stent in coronary artery June, acute Bronchiectasis acute Asthma-COPD overlap syndrome [facility] Work Phone: Evaluation note* Diagnosis Onset Date Resolution Status Bronchiectasis acute Nicotine abuse acute Asthma-COPD overlap syndrome chronic Dysphagia [facility] Work Phone: Evaluation note* Diagnosis Impacted cerumen of left ear- Primary Impacted cerumen COPD with exacerbation (HCC) Obstructive chronic bronchitis with exacerbation [facility] Diagnosis Onset Date Resolution Status GERD (gastroesophageal reflux disease) chronic Atherosclerotic heart 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 without angina pectoris acute HLD (hyperlipidemia) acute Paroxysmal atrial tachycardia acute Paroxysmal ventricular tachycardia acute Premature ventricular contraction acute COPD (chronic obstructive pulmonary disease) [facility] Work Phone: Evaluation note* Diagnosis Onset Date Resolution Status GERD (gastroesophageal reflux disease) chronic Atherosclerotic heart 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 without angina pectoris acute HLD (hyperlipidemia) acute Paroxysmal atrial tachycardia acute Paroxysmal ventricular tachycardia acute Premature ventricular contraction acute COPD (chronic obstructive pulmonary disease) chronic Bronchiectasis acute Asthma-COPD overlap syndrome [facility] Work Phone: Evaluation note* Diagnosis Onset Date Resolution Status Bronchiectasis acute Asthma-COPD overlap syndrome [facility] Work Phone: Evaluation note* Diagnosis Onset Date Resolution Status Asthma-COPD overlap syndrome chronic Nicotine abuse [facility] Work Phone: Evaluation note* Diagnosis Onset Date Resolution Status Asthma-COPD overlap syndrome chronic Nicotine abuse chronic Atherosclerotic heart 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 without angina pectoris chronic HLD (hyperlipidemia) chronic Paroxysmal atrial tachycardia chronic Paroxysmal ventricular tachycardia chronic Premature ventricular contraction [facility] Work Phone: Evaluation note* Diagnosis Pre-operative examination- Primary Preoperative examination, unspecified Dysphagia, unspecified type Asthma with acute exacerbation, unspecified asthma severity, unspecified whether persistent Chronic obstructive pulmonary disease with acute exacerbation (HCC) Obstructive chronic bronchitis with exacerbation Coronary artery disease involving [place] heart without angina pectoris, unspecified vessel or lesion type Hyperlipidemia, unspecified hyperlipidemia type Primary hypertension Unspecified essential hypertension VIVI on CPAP Obstructive sleep apnea (adult) (pediatric) Former smoker Personal history of tobacco use, presenting hazards to health Primary hypertension- Primary Unspecified essential hypertension Dysphagia, unspecified type Chronic obstructive pulmonary disease with acute exacerbation (HCC) Obstructive chronic bronchitis with exacerbation Allergic rhinitis due to dust mite VIVI on CPAP Obstructive sleep apnea (adult) (pediatric) Medicare annual wellness visit, subsequent- Primary Routine general medical examination at a health care facility Primary hypertension Unspecified essential hypertension Coronary artery disease involving [place] heart without angina pectoris, unspecified vessel or lesion type Hyperlipidemia, unspecified hyperlipidemia type Chronic obstructive pulmonary disease, unspecified COPD type (HCC) Current smoker Tobacco use disorder Other osteoporosis without current pathological fracture Seasonal allergic rhinitis due to fungal spores Screening for depression Encounter for screening examination for other mental health and behavioral disorders [facility] Diagnosis Pre-operative examination- Primary Preoperative examination, unspecified Dysphagia, unspecified type Asthma with acute exacerbation, unspecified asthma severity, unspecified whether persistent Chronic obstructive pulmonary disease with acute exacerbation (HCC) Obstructive chronic bronchitis with exacerbation Coronary artery disease involving [place] heart without angina pectoris, unspecified vessel or lesion type Hyperlipidemia, unspecified hyperlipidemia type Primary hypertension Unspecified essential hypertension VIVI on CPAP Obstructive sleep apnea (adult) (pediatric) Former smoker Personal history of tobacco use, presenting hazards to health Primary hypertension- Primary Unspecified essential hypertension Dysphagia, unspecified type Chronic obstructive pulmonary disease with acute exacerbation (HCC) Obstructive chronic bronchitis with exacerbation Allergic rhinitis due to dust mite VIVI on CPAP Obstructive sleep apnea (adult) (pediatric) Cardiac arrest (HCC)- Primary Cardiac arrest Respiratory arrest (HCC) Respiratory arrest COPD exacerbation (HCC) Obstructive chronic bronchitis with exacerbation Encephalopathy, unspecified type Closed fracture of multiple ribs of right side, initial encounter Subcutaneous emphysema, initial encounter (HCC) Fracture of multiple ribs due to CPR Leukocytosis, unspecified type Pneumothorax on right Other pneumothorax Acute on chronic respiratory failure with hypoxia and hypercapnia (HCC) Acute on chronic respiratory failure with hypoxia and hypercapnia (HCC) Traumatic pneumothorax Traumatic pneumothorax without mention of open wound into thorax Hypertension Unspecified essential hypertension Coronary artery disease involving [place] heart without angina pectoris Pressure injury of deep tissue of sacral region COPD exacerbation (HCC) Obstructive chronic bronchitis with exacerbation Pneumothorax on right Other pneumothorax Multiple closed fractures of ribs of right side Closed fracture of multiple ribs, unspecified Respiratory arrest (HCC) Respiratory arrest Subcutaneous emphysema (HCC) Traumatic subcutaneous emphysema Leukocytosis Leukocytosis, unspecified Bacterial pneumonia Bacterial pneumonia, unspecified Type 2 diabetes mellitus without complication, without long-term current use of insulin (HCC) Hypernatremia Hyperosmolality and/or hypernatremia Malnutrition of moderate degree (HCC) Malnutrition of moderate degree Subarachnoid hemorrhage (HCC) Subarachnoid hemorrhage Quadriparesis (HCC) Quadriplegia, unspecified Abnormal brain MRI Nonspecific (abnormal) findings on radiological and other examination of skull and head Cerebral hemorrhage (HCC)- Primary Intracerebral hemorrhage [facility] Diagnosis Pre-operative examination- Primary Preoperative examination, unspecified Dysphagia, unspecified type Asthma with acute exacerbation, unspecified asthma severity, unspecified whether persistent Chronic obstructive pulmonary disease with acute exacerbation (HCC) Obstructive chronic bronchitis with exacerbation Coronary artery disease involving [place] heart without angina pectoris, unspecified vessel or lesion type Hyperlipidemia, unspecified hyperlipidemia type Primary hypertension Unspecified essential hypertension VIVI on CPAP Obstructive sleep apnea (adult) (pediatric) Former smoker Personal history of tobacco use, presenting hazards to health Primary hypertension- Primary Unspecified essential hypertension Dysphagia, unspecified type Chronic obstructive pulmonary disease with acute exacerbation (HCC) Obstructive chronic bronchitis with exacerbation Allergic rhinitis due to dust mite VIVI on CPAP Obstructive sleep apnea (adult) (pediatric) Cardiac arrest (HCC)- Primary Cardiac arrest Respiratory arrest (HCC) Respiratory arrest COPD exacerbation (HCC) Obstructive chronic bronchitis with exacerbation Encephalopathy, unspecified type Closed fracture of multiple ribs of right side, initial encounter Subcutaneous emphysema, initial encounter (HCC) Fracture of multiple ribs due to CPR Leukocytosis, unspecified type Pneumothorax on right Other pneumothorax Acute on chronic respiratory failure with hypoxia and hypercapnia (HCC) Acute on chronic respiratory failure with hypoxia and hypercapnia (HCC) Traumatic pneumothorax Traumatic pneumothorax without mention of open wound into thorax Hypertension Unspecified essential hypertension Coronary artery disease involving [place] heart without angina pectoris Pressure injury of deep tissue of sacral region COPD exacerbation (HCC) Obstructive chronic bronchitis with exacerbation Pneumothorax on right Other pneumothorax Multiple closed fractures of ribs of right side Closed fracture of multiple ribs, unspecified Respiratory arrest (HCC) Respiratory arrest Subcutaneous emphysema (HCC) Traumatic subcutaneous emphysema Leukocytosis Leukocytosis, unspecified Bacterial pneumonia Bacterial pneumonia, unspecified Type 2 diabetes mellitus without complication, without long-term current use of insulin (HCC) Hypernatremia Hyperosmolality and/or hypernatremia Malnutrition of moderate degree (HCC) Malnutrition of moderate degree Subarachnoid hemorrhage (HCC) Subarachnoid hemorrhage Quadriparesis (HCC) Quadriplegia, unspecified Abnormal brain MRI Nonspecific (abnormal) findings on radiological and other examination of skull and head Type 2 diabetes mellitus without complication, without long-term current use of insulin (HCC) [facility] Diagnosis Pre-operative examination- Primary Preoperative examination, unspecified Dysphagia, unspecified type Asthma with acute exacerbation, unspecified asthma severity, unspecified whether persistent Chronic obstructive pulmonary disease with acute exacerbation (HCC) Obstructive chronic bronchitis with exacerbation Coronary artery disease involving [place] heart without angina pectoris, unspecified vessel or lesion type Hyperlipidemia, unspecified hyperlipidemia type Primary hypertension Unspecified essential hypertension VIVI on CPAP Obstructive sleep apnea (adult) (pediatric) Former smoker Personal history of tobacco use, presenting hazards to health Primary hypertension- Primary Unspecified essential hypertension Dysphagia, unspecified type Chronic obstructive pulmonary disease with acute exacerbation (HCC) Obstructive chronic bronchitis with exacerbation Allergic rhinitis due to dust mite VIVI on CPAP Obstructive sleep apnea (adult) (pediatric) Respiratory arrest (HCC) Respiratory arrest COPD exacerbation (HCC) Obstructive chronic bronchitis with exacerbation Encephalopathy, unspecified type Closed fracture of multiple ribs of right side, initial encounter Subcutaneous emphysema, initial encounter (HCC) Fracture of multiple ribs due to CPR Leukocytosis, unspecified type Pneumothorax on right Other pneumothorax Acute on chronic respiratory failure with hypoxia and hypercapnia (HCC) Acute on chronic respiratory failure with hypoxia and hypercapnia (HCC) Traumatic pneumothorax Traumatic pneumothorax without mention of open wound into thorax Hypertension Unspecified essential hypertension Coronary artery disease involving [place] heart without angina pectoris Pressure injury of deep tissue of sacral region COPD exacerbation (HCC) Obstructive chronic bronchitis with exacerbation Pneumothorax on right Other pneumothorax Multiple closed fractures of ribs of right side Closed fracture of multiple ribs, unspecified Respiratory arrest (HCC) Respiratory arrest Subcutaneous emphysema (HCC) Traumatic subcutaneous emphysema Leukocytosis Leukocytosis, unspecified Bacterial pneumonia Bacterial pneumonia, unspecified Type 2 diabetes mellitus without complication, without long-term current use of insulin (HCC) Hypernatremia Hyperosmolality and/or hypernatremia Malnutrition of moderate degree (HCC) Malnutrition of moderate degree Subarachnoid hemorrhage (HCC) Subarachnoid hemorrhage Quadriparesis (HCC) Quadriplegia, unspecified Abnormal brain MRI Nonspecific (abnormal) findings on radiological and other examination of skull and head Tracheostomy status (HCC)- Primary Tracheostomy status 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 Major depressive disorder with psychotic features ([facility]) Multiple subsegmental pulmonary emboli without acute cor pulmonale ([facility]) PEG (percutaneous endoscopic gastrostomy) status ([facility]) Gastrostomy status [facility] Diagnosis Pre-operative examination- Primary Preoperative examination, unspecified Dysphagia, unspecified type Asthma with acute exacerbation, unspecified asthma severity, unspecified whether persistent Chronic obstructive pulmonary disease with acute exacerbation (HCC) Obstructive chronic bronchitis with exacerbation Coronary artery disease involving [place] heart without angina pectoris, unspecified vessel or lesion type Hyperlipidemia, unspecified hyperlipidemia type Primary hypertension Unspecified essential hypertension VIVI on CPAP Obstructive sleep apnea (adult) (pediatric) Former smoker Personal history of tobacco use, presenting hazards to health Primary hypertension- Primary Unspecified essential hypertension Dysphagia, unspecified type Chronic obstructive pulmonary disease with acute exacerbation (HCC) Obstructive chronic bronchitis with exacerbation Allergic rhinitis due to dust mite VIVI on CPAP Obstructive sleep apnea (adult) (pediatric) Respiratory arrest (HCC) Respiratory arrest COPD exacerbation (HCC) Obstructive chronic bronchitis with exacerbation Encephalopathy, unspecified type Closed fracture of multiple ribs of right side, initial encounter Subcutaneous emphysema, initial encounter (HCC) Fracture of multiple ribs due to CPR Leukocytosis, unspecified type Pneumothorax on right Other pneumothorax Acute on chronic respiratory failure with hypoxia and hypercapnia (HCC) Acute on chronic respiratory failure with hypoxia and hypercapnia (HCC) Traumatic pneumothorax Traumatic pneumothorax without mention of open wound into thorax Hypertension Unspecified essential hypertension Pressure injury of deep tissue of sacral region Pneumothorax on right Other pneumothorax Multiple closed fractures of ribs of right side Closed fracture of multiple ribs, unspecified Respiratory arrest (HCC) Respiratory arrest Subcutaneous emphysema (HCC) Traumatic subcutaneous emphysema Leukocytosis Leukocytosis, unspecified Bacterial pneumonia Bacterial pneumonia, unspecified Type 2 diabetes mellitus without complication, without long-term current use of insulin (HCC) Hypernatremia Hyperosmolality and/or hypernatremia Malnutrition of moderate degree (HCC) Malnutrition of moderate degree Subarachnoid hemorrhage (HCC) Subarachnoid hemorrhage Quadriparesis (HCC) Quadriplegia, unspecified Abnormal brain MRI Nonspecific (abnormal) findings on radiological and other examination of skull and head COPD exacerbation (HCC) Obstructive chronic bronchitis with exacerbation Fever, unspecified fever cause [facility] Diagnosis Pre-operative examination- Primary Preoperative examination, unspecified Dysphagia, unspecified type Asthma with acute exacerbation, unspecified asthma severity, unspecified whether persistent Chronic obstructive pulmonary disease with acute exacerbation (HCC) Obstructive chronic bronchitis with exacerbation Coronary artery disease involving [place] heart without angina pectoris, unspecified vessel or lesion type Hyperlipidemia, unspecified hyperlipidemia type Primary hypertension Unspecified essential hypertension VIVI on CPAP Obstructive sleep apnea (adult) (pediatric) Former smoker Personal history of tobacco use, presenting hazards to health Primary hypertension- Primary Unspecified essential hypertension Dysphagia, unspecified type Chronic obstructive pulmonary disease with acute exacerbation (HCC) Obstructive chronic bronchitis with exacerbation Allergic rhinitis due to dust mite VIVI on CPAP Obstructive sleep apnea (adult) (pediatric) Respiratory arrest (HCC) Respiratory arrest COPD exacerbation (HCC) Obstructive chronic bronchitis with exacerbation Encephalopathy, unspecified type Closed fracture of multiple ribs of right side, initial encounter Subcutaneous emphysema, initial encounter (HCC) Fracture of multiple ribs due to CPR Leukocytosis, unspecified type Pneumothorax on right Other pneumothorax Acute on chronic respiratory failure with hypoxia and hypercapnia (HCC) Acute on chronic respiratory failure with hypoxia and hypercapnia (HCC) Traumatic pneumothorax Traumatic pneumothorax without mention of open wound into thorax Hypertension Unspecified essential hypertension Pressure injury of deep tissue of sacral region Pneumothorax on right Other pneumothorax Multiple closed fractures of ribs of right side Closed fracture of multiple ribs, unspecified Respiratory arrest (HCC) Respiratory arrest Subcutaneous emphysema (HCC) Traumatic subcutaneous emphysema Leukocytosis Leukocytosis, unspecified Bacterial pneumonia Bacterial pneumonia, unspecified Type 2 diabetes mellitus without complication, without long-term current use of insulin (HCC) Hypernatremia Hyperosmolality and/or hypernatremia Malnutrition of moderate degree (HCC) Malnutrition of moderate degree Subarachnoid hemorrhage (HCC) Subarachnoid hemorrhage Quadriparesis (HCC) Quadriplegia, unspecified Abnormal brain MRI Nonspecific (abnormal) findings on radiological and other examination of skull and head Gastrointestinal hemorrhage, unspecified gastrointestinal hemorrhage type- Primary COPD exacerbation (HCC) Obstructive chronic bronchitis with exacerbation Bronchiectasis with acute exacerbation (HCC) Bronchiectasis with acute exacerbation Quadriparesis (HCC) Quadriplegia, unspecified Fever, unspecified fever cause Primary hypertension Unspecified essential hypertension Major depressive disorder with psychotic features (HCC) Type 2 diabetes mellitus without complication, without long-term current use of insulin (HCC) 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) Multiple subsegmental pulmonary emboli without acute cor pulmonale (HCC) COPD exacerbation (HCC) Obstructive chronic bronchitis with exacerbation Fever, unspecified fever cause [facility] Diagnosis Pre-operative examination- Primary Preoperative examination, unspecified Dysphagia, unspecified type Asthma with acute exacerbation, unspecified asthma severity, unspecified whether persistent Chronic obstructive pulmonary disease with acute exacerbation (HCC) Obstructive chronic bronchitis with exacerbation Coronary artery disease involving [place] heart without angina pectoris, unspecified vessel or lesion type Hyperlipidemia, unspecified hyperlipidemia type Primary hypertension Unspecified essential hypertension VIVI on CPAP Obstructive sleep apnea (adult) (pediatric) Former smoker Personal history of tobacco use, presenting hazards to health Primary hypertension- Primary Unspecified essential hypertension Dysphagia, unspecified type Chronic obstructive pulmonary disease with acute exacerbation (HCC) Obstructive chronic bronchitis with exacerbation Allergic rhinitis due to dust mite VIVI on CPAP Obstructive sleep apnea (adult) (pediatric) Respiratory arrest (HCC) Respiratory arrest COPD exacerbation (HCC) Obstructive chronic bronchitis with exacerbation Encephalopathy, unspecified type Closed fracture of multiple ribs of right side, initial encounter Subcutaneous emphysema, initial encounter ([facility]) Fracture of multiple ribs due to CPR Leukocytosis, unspecified type Pneumothorax on right Other pneumothorax Acute on chronic respiratory failure with hypoxia and hypercapnia (HCC) Acute on chronic respiratory failure with hypoxia and hypercapnia (HCC) Traumatic pneumothorax Traumatic pneumothorax without mention of open wound into thorax Hypertension Unspecified essential hypertension Pressure injury of deep tissue of sacral region Pneumothorax on right Other pneumothorax Multiple closed fractures of ribs of right side Closed fracture of multiple ribs, unspecified Respiratory arrest (HCC) Respiratory arrest Subcutaneous emphysema (HCC) Traumatic subcutaneous emphysema Leukocytosis Leukocytosis, unspecified Bacterial pneumonia Bacterial pneumonia, unspecified Type 2 diabetes mellitus without complication, without long-term current use of insulin (HCC) Hypernatremia Hyperosmolality and/or hypernatremia Malnutrition of moderate degree (HCC) Malnutrition of moderate degree Subarachnoid hemorrhage (HCC) Subarachnoid hemorrhage Quadriparesis (HCC) Quadriplegia, unspecified Abnormal brain MRI Nonspecific (abnormal) findings on radiological and other examination of skull and head Leukocytosis, unspecified type- Primary Type 2 diabetes mellitus without complication, without long-term current use of insulin (HCC) documented in this encounter [facility] note* Diagnosis Pre-operative examination- Primary Preoperative examination, unspecified Dysphagia, unspecified type Asthma with acute exacerbation, unspecified asthma severity, unspecified whether persistent Chronic obstructive pulmonary disease with acute exacerbation (HCC) Obstructive chronic bronchitis with exacerbation Coronary artery disease involving [place] heart without angina pectoris, unspecified vessel or lesion type Hyperlipidemia, unspecified hyperlipidemia type Primary hypertension Unspecified essential hypertension VIVI on CPAP Obstructive sleep apnea (adult) (pediatric) Former smoker Personal history of tobacco use, presenting hazards to health Primary hypertension- Primary Unspecified essential hypertension Dysphagia, unspecified type Chronic obstructive pulmonary disease with acute exacerbation (HCC) Obstructive chronic bronchitis with exacerbation Allergic rhinitis due to dust mite VIVI on CPAP Obstructive sleep apnea (adult) (pediatric) COPD exacerbation (HCC)- Primary Obstructive chronic bronchitis with exacerbation Quadriparesis (HCC) Quadriplegia, unspecified Subarachnoid hemorrhage (HCC) Subarachnoid hemorrhage 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) Major depressive disorder with psychotic features (HCC) Multiple subsegmental pulmonary emboli without acute cor pulmonale (HCC) Gastrointestinal hemorrhage, unspecified gastrointestinal hemorrhage type documented in this encounter [facility] note* Diagnosis Pre-operative examination- Primary Preoperative examination, unspecified Dysphagia, unspecified type Asthma with acute exacerbation, unspecified asthma severity, unspecified whether persistent Chronic obstructive pulmonary disease with acute exacerbation (HCC) Obstructive chronic bronchitis with exacerbation Coronary artery disease involving [place] heart without angina pectoris, unspecified vessel or lesion type Hyperlipidemia, unspecified hyperlipidemia type Primary hypertension Unspecified essential hypertension VIVI on CPAP Obstructive sleep apnea (adult) (pediatric) Former smoker Personal history of tobacco use, presenting hazards to health Primary hypertension- Primary Unspecified essential hypertension Dysphagia, unspecified type Chronic obstructive pulmonary disease with acute exacerbation (HCC) Obstructive chronic bronchitis with exacerbation Allergic rhinitis due to dust mite VIVI on CPAP Obstructive sleep apnea (adult) (pediatric) COPD exacerbation (HCC) Obstructive chronic bronchitis with exacerbation documented in this encounter [facility] note* Diagnosis Pre-operative examination- Primary Preoperative examination, unspecified Dysphagia, unspecified type Asthma with acute exacerbation, unspecified asthma severity, unspecified whether persistent Chronic obstructive pulmonary disease with acute exacerbation (HCC) Obstructive chronic bronchitis with exacerbation Coronary artery disease involving [place] heart without angina pectoris, unspecified vessel or lesion type Hyperlipidemia, unspecified hyperlipidemia type Primary hypertension Unspecified essential hypertension VIVI on CPAP Obstructive sleep apnea (adult) (pediatric) Former smoker Personal history of tobacco use, presenting hazards to health Primary hypertension- Primary Unspecified essential hypertension Dysphagia, unspecified type Chronic obstructive pulmonary disease with acute exacerbation (HCC) Obstructive chronic bronchitis with exacerbation Allergic rhinitis due to dust mite VIVI on CPAP Obstructive sleep apnea (adult) (pediatric) Major depressive disorder with psychotic features (HCC) [facility] Diagnosis Pre-operative examination- Primary Preoperative examination, unspecified Dysphagia, unspecified type Asthma with acute exacerbation, unspecified asthma severity, unspecified whether persistent (HCC) Chronic obstructive pulmonary disease with acute exacerbation (HCC) Obstructive chronic bronchitis with exacerbation Coronary artery disease involving [place] heart without angina pectoris, unspecified vessel or lesion type Hyperlipidemia, unspecified hyperlipidemia type Primary hypertension Unspecified essential hypertension VIVI on CPAP Obstructive sleep apnea (adult) (pediatric) Former smoker Personal history of tobacco use, presenting hazards to health Primary hypertension- Primary Unspecified essential hypertension Dysphagia, unspecified type Chronic obstructive pulmonary disease with acute exacerbation (HCC) Obstructive chronic bronchitis with exacerbation Allergic rhinitis due to dust mite VIVI on CPAP Obstructive sleep apnea (adult) (pediatric) Encounter for social work intervention- Primary documented in this encounter [facility] note* Diagnosis Pre-operative examination- Primary Preoperative examination, unspecified Dysphagia, unspecified type Asthma with acute exacerbation, unspecified asthma severity, unspecified whether persistent (HCC) Chronic obstructive pulmonary disease with acute exacerbation (HCC) Obstructive chronic bronchitis with exacerbation Coronary artery disease involving [place] heart without angina pectoris, unspecified vessel or lesion type Hyperlipidemia, unspecified hyperlipidemia type Primary hypertension Unspecified essential hypertension VIVI on CPAP Obstructive sleep apnea (adult) (pediatric) Former smoker Personal history of tobacco use, presenting hazards to health Primary hypertension- Primary Unspecified essential hypertension Dysphagia, unspecified type Chronic obstructive pulmonary disease with acute exacerbation (HCC) Obstructive chronic bronchitis with exacerbation Allergic rhinitis due to dust mite VIVI on CPAP Obstructive sleep apnea (adult) (pediatric) Quadriparesis (HCC)- Primary Quadriplegia, unspecified Major depressive disorder with psychotic features (HCC) COPD exacerbation (HCC) Obstructive chronic bronchitis with exacerbation Mass of right parotid gland Need for vaccination Need for prophylactic vaccination and inoculation against unspecified single disease Gastrointestinal hemorrhage, unspecified gastrointestinal hemorrhage type 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) Multiple subsegmental pulmonary emboli without acute cor pulmonale (HCC) documented [facility]* Diagnosis Neck mass- Primary Swelling, mass, or lump in head and neck Lesion of parotid gland Impacted cerumen of left ear Impacted cerumen documented in this encounter [facility] Work Phone: Evaluation note* Diagnosis Pre-operative examination- Primary Preoperative examination, unspecified Dysphagia, unspecified type Asthma with acute exacerbation, unspecified asthma severity, unspecified whether persistent (HCC) Chronic obstructive pulmonary disease with acute exacerbation (HCC) Obstructive chronic bronchitis with exacerbation Coronary artery disease involving [place] heart without angina pectoris, unspecified vessel or lesion type Hyperlipidemia, unspecified hyperlipidemia type Primary hypertension Unspecified essential hypertension VIVI on CPAP Obstructive sleep apnea (adult) (pediatric) Former smoker Personal history of tobacco use, presenting hazards to health Primary hypertension- Primary Unspecified essential hypertension Dysphagia, unspecified type Chronic obstructive pulmonary disease with acute exacerbation (HCC) Obstructive chronic bronchitis with exacerbation Allergic rhinitis due to dust mite VIVI on CPAP Obstructive sleep apnea (adult) (pediatric) Primary hypertension Unspecified essential hypertension [facility] this [facility] Diagnosis Pre-operative examination- Primary Preoperative examination, unspecified Dysphagia, unspecified type Asthma with acute exacerbation, unspecified asthma severity, unspecified whether persistent (HCC) Chronic obstructive pulmonary disease with acute exacerbation (HCC) Obstructive chronic bronchitis with exacerbation Coronary artery disease involving [place] heart without angina pectoris, unspecified vessel or lesion type Hyperlipidemia, unspecified hyperlipidemia type Primary hypertension Unspecified essential hypertension VIVI on CPAP Obstructive sleep apnea (adult) (pediatric) Former smoker Personal history of tobacco use, presenting hazards to health Primary hypertension- Primary Unspecified essential hypertension Dysphagia, unspecified type Chronic obstructive pulmonary disease with acute exacerbation (HCC) Obstructive chronic bronchitis with exacerbation Allergic rhinitis due to dust mite VIVI on CPAP Obstructive sleep apnea (adult) (pediatric) Urge incontinence of urine- Primary Urge incontinence Lower urinary tract symptoms Other symptoms involving urinary system Rib contusion, right, initial encounter Major depressive disorder with psychotic features (HCC) Primary hypertension Unspecified essential hypertension documented [facility] this [facility]* Diagnosis Pre-operative examination- Primary Preoperative examination, unspecified Dysphagia, unspecified type Asthma with acute exacerbation, unspecified asthma severity, unspecified whether persistent (HCC) Chronic obstructive pulmonary disease with acute exacerbation (HCC) Obstructive chronic bronchitis with exacerbation Coronary artery disease involving [place] heart without angina pectoris, unspecified vessel or lesion type Hyperlipidemia, unspecified hyperlipidemia type Primary hypertension Unspecified essential hypertension VIVI on CPAP Obstructive sleep apnea (adult) (pediatric) Former smoker Personal history of tobacco use, presenting hazards to health Primary hypertension- Primary Unspecified essential hypertension Dysphagia, unspecified type Chronic obstructive pulmonary disease with acute exacerbation (HCC) Obstructive chronic bronchitis with exacerbation Allergic rhinitis due to dust mite VIVI on CPAP Obstructive sleep apnea (adult) (pediatric) Quadriparesis (HCC)- Primary Quadriplegia, unspecified 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) documented in this [facility]* Diagnosis Pre-operative examination- Primary Preoperative examination, unspecified Dysphagia, unspecified type Asthma with acute exacerbation, unspecified asthma severity, unspecified whether persistent (HCC) Chronic obstructive pulmonary disease with acute exacerbation (HCC) Obstructive chronic bronchitis with exacerbation Coronary artery disease involving [place] heart without angina pectoris, unspecified vessel or lesion type Hyperlipidemia, unspecified hyperlipidemia type Primary hypertension Unspecified essential hypertension VIVI on CPAP Obstructive sleep apnea (adult) (pediatric) Former smoker Personal history of tobacco use, presenting hazards to health Primary hypertension- Primary Unspecified essential hypertension Dysphagia, unspecified type Chronic obstructive pulmonary disease with acute exacerbation (HCC) Obstructive chronic bronchitis with exacerbation Allergic rhinitis due to dust mite VIVI on CPAP Obstructive sleep apnea (adult) (pediatric) Major depressive disorder with psychotic features (HCC) Multiple subsegmental pulmonary emboli without acute cor pulmonale (HCC) documented in [facility]* Diagnosis Lesion of parotid gland- Primary documented in this encounter [facility] Work Phone: Evaluation note* Diagnosis Lesion of parotid gland- Primary Other cysts of oral region, not elsewhere classified Lesion of parotid gland- Primary documented in this encounter [facility] Work Phone: Evaluation note* Diagnosis Pre-operative examination- Primary Preoperative examination, unspecified Dysphagia, unspecified type Asthma with acute exacerbation, unspecified asthma severity, unspecified whether persistent (HCC) Chronic obstructive pulmonary disease with acute exacerbation (HCC) Obstructive chronic bronchitis with exacerbation Coronary artery disease involving [place] heart without angina pectoris, unspecified vessel or lesion type Hyperlipidemia, unspecified hyperlipidemia type Primary hypertension Unspecified essential hypertension VIVI on CPAP Obstructive sleep apnea (adult) (pediatric) Former smoker Personal history of tobacco use, presenting hazards to health Primary hypertension- Primary Unspecified essential hypertension Dysphagia, unspecified type Chronic obstructive pulmonary disease with acute exacerbation (HCC) Obstructive chronic bronchitis with exacerbation Allergic rhinitis due to dust mite VIVI on CPAP Obstructive sleep apnea (adult) (pediatric) 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)- Primary Primary hypertension Unspecified essential hypertension COPD exacerbation (HCC) Obstructive chronic bronchitis with exacerbation Mass of right parotid gland Gastrointestinal hemorrhage, unspecified gastrointestinal hemorrhage type Multiple subsegmental pulmonary emboli without acute cor pulmonale (HCC) documented in this encounter [facility] Author David Jackson [facility] November 29, 2022 11:36am Note Date/Time November 29, 2022 11: 36am [facility] Medical Records Department [address] [place] [address] History & Physical Exam 11/29/22 1136 MR#: [id number] Acct: [id number] Name: CHIO DENT Rep #:[id number] : 1960 62 From: David Jackson DO PCP: Dr. Alexey Mayberry MD Status:R [facility] Location: [place] [address] History and Physical Date of Admission: 11/29/22 62 M who presents to the office today to establish with GI for difficulty swallowing. Referred by ENT Dr Matilde Figueroa; laryngoscopy was normal. Choking on food such as meat or pretzels, started a couple of yrs ago, getting worse. The food sticks in the lower throat. Has occas had to vomit to get it out. No ED visits for food stuck in esophagus. Denies sore throat, denies esophageal spasmsor pain. He has been on omeprazole for years for heartburn, it is effective. He reports hx of bleeding ulcer in the esophagus. Denies nausea, vomiting, abd pain, diarrhea, constipation, melena, hematochezia.Weight is stable. Appetite is normal. 07/2022 Esophagram: small hiatal hernia w/o GE reflux 12/2021 EGD at [facility] [place] by Dr Keen--pt reports it was normal He has never had a colonoscopy, but he does cologuard annually at the [place], he's not interested in a colonoscopy at this time Exam Const General: cooperative and comfortable Orientation: alert, awake and oriented x3 HENMT Head: normal to inspection Eyes Sclera: sclerae normal Neck Neck: normal visual inspection Resp Effort & Inspection: normal respiratory effort GI Inspection: normal to inspection Palpation: soft, no hepatosplenomegaly, no masses and nontender Quality Reporting Tobacco Screening ([facility] 138) Smoking Status: Former smoker Assessment and Plan Assessment and Plan (1) Dysphagia: ?Status:?Chronic ?Plan: 62 yr old male w/ chronic dysphagia, getting worse, food especially meat gettingstuck. On PPI x yrs which controls his heartburn. Needs EGD to eval for stricture, esophagitis, Pat's. Will have office f/u 2 wks after EGD. I haveexamined the patient and the H&P has been reviewed. There are no clinical changes since date of exam. 11/29/22 1136 <Electronically signed by David Jackson DO> Cosigner Signature (if applicable): CC: Dr. Alexey Mayberry MD; David Jackson DO~ Signed [facility] Work Phone: History and physical note Author David Jackson [facility] Note Date/Time February 09, 2025 3:02 pm [facility] Medical Records Department [address] [place] [id number] History & Physical Exam 02/09/25 1500 MR#: [id number] Acct: [id number] Name: CHIO DENT JrMinerva Rep #:[id number] : 1960 64 From: David Jackson DO PCP: Dr. Alexey Mayberry MD Status:R [facility] Location: [place] [address] HPI - General General Date of Admission: 02/09/25 Date of Service: 02/09/25 Chief Complaint: Gastric ulcer surveillance HPI Narrative CHIO DENT, is a 64 M who presents for surveillance of gastric ulcers EGD 10/30/2024 - LA Grade D non-erosive esophagitis with bleeding. Treated with a heater probe. - Oozing gastric ulcers with pigmented material. Treated with a heater probe. - Intact gastrostomy with a patent G-tube present characterized by healthy appearing mucosa. - Erythematous duodenopathy. - The PEG was cut externally, grasped, and removed with the scope because it was no longer necessary. - No specimens collected. - seen in the office today with his - he is back on apixiban - denies taking any NSAIDS - he reports he was on Omeprazole because he did not tolerate famotidine due to breakthrough HB - denies any N/V - denies any melena - denies any abdominal pain - denies any weight loss - occasional soft stools, typically has 2-3 BM daily - denies any urgency - he is drinking 4 cups of coffee daily - he quit smoking - denies any alcohol PFSH Medical History Easy bruising History of GI bleed MRSA (methicillin resistant staph aureus) culture positive Chronic neuropathic pain Former smoker Myocardial infarct Pneumonia Tracheostomy in place Foraminal stenosis of cervical region Cervical spondylosis Ribs, multiple fractures Respiratory arrest before cardiac arrest Wears dentures Wears glasses Arthritis History of hiatal hernia Gastric reflux Sleep apnea Hypertension History of echocardiogram History of stress test Cardiology follow-up encounter History of heart attack GERD (gastroesophageal reflux disease) Dysphagia Hypersomnia Bronchiectasis Asthma-COPD overlap syndrome BPH (benign prostatic hyperplasia) Paroxysmal atrial tachycardia Paroxysmal ventricular tachycardia Premature ventricular contraction HCAP (healthcare-associated pneumonia) Atherosclerotic heart disease of [place] tribe coronary artery without angina pectoris Ischemic cardiomyopathy HLD (hyperlipidemia) History of pulmonary embolism Home Medications ?Medication ?Instructions ?Recorded ?Last Taken ?Type gabapentin 400 mg capsule 800 mg (2 x 400 mg) PO TID # 1 cap 08/10/24 02/09/25 08:30 Rx bupropion HCl 150 mg 24 hr tablet, 150 mg PO BID 08/1602/09/25 08:30 History extended release albuterol sulfate 2.5 mg/3 mL 2.5 mg inhalation Q4H NE N PRN 09/11/24 Unknown History (0.083 %) solution for nebulization wheezing furosemide 40 mg tablet (Lasix) 40 mg PO DAILY 5 Unknown History ipratropium 0.5 mg-albuterol 3 mg 3 ml inhalation Q6H PRN PRN dyspnea 09/11/24 Unknown History (2.5 mg base)/3 mL nebulization soln apixaban 5 mg tablet (Eliquis) 5 mg PO BID #1 TAB 09/0202/05/25 Rx ketoconazole 2 % topical cream 1 applic topical BID Unknown History quetiapine 25 mg tablet 25 mg PO QHS 10/06/24 Unknow n History guaifenesin 1,200 mg tablet, 1,200 mg PO TID PRN conge stion 10/20/24 Unknown History extended release 12 hr (Mucinex) fluticasone fur. 200 mcg-umeclid 1 inh inhalation Q24H #60 ea 11/09/24 Unknown Rx 62.5 mcg-vilant 25 mcg inhalat.powder (Trelegy Ellipta) pantoprazole 40 mg tablet,delayed 40 mg PO BID 30 days #60 tabs 11/19/24 02/09/25 08:30 Rx release (Protonix) triamcinolone acetonide 0.1 % 1 applic topical .QD Unknown History topical cream fluticasone propionate 50 2 spray intranasal QDAY #16 grams 02/01/25 Unknown Rx mcg/actuation nasal spray,suspension atorvastatin 20 mg tablet 20 mg PO QHS 02/05/25 Unknow n History cyanocobalamin (vitamin B-12) 1,000 mcg PO DAILY 02/05 Unknown History 1,000 mcg capsule montelukast 10 mg tablet 10 mg PO DAILY 02/05/25 Unkn own History Allergy/AdvReac Type Severity Reaction Status Date / Time latex Allergy Rash Verified 02/09/25 12:48 varenicline tartrate (From Allergy Hives Verified 02/09/25 12:48 Chantix) aspirin AdvReac Upset Verified 02/09/25 12:48 Stomach Family History Father , age 50 CAD (coronary artery disease) Heart disease Myocardial infarction Mother Diabetes Brother Hypertension Surgical History S/P percutaneous endoscopic gastrostomy (PEG) tube placement History of tracheostomy History of chest tube placement Hx of carpal tunnel repair Hx of angioplasty History of cardiac catheterization History of coronary artery stent placement Hx of shoulder surgery Hx of sinus surgery Hx of nasal sinusotomy Hx of cystoscopy Hx of tonsillectomy History of thumb surgery Hx of right knee surgery Presence of coronary angioplasty implant and graft (~06/27/08) History of hernia repair Social History household members: significant other and children Smoking Status: Former smoker alcohol intake: never substance use type: does not use caffeine: Yes Type: coffee Number of servings: 3 what type of physical activity do you participate in: walking frequency: daily duration: 45-60 minutes/day seatbelt use: always do you feel safe at home: Yes ROS Constitutional Constitutional: Denies fatigue, fever(s), poor appetite, weight gain or weight loss Gastrointestinal Gastrointestinal: Denies belching, bloating, change in bowel habits, change in stool character, chewing difficulty, coffee ground emesis, constipation, cramping, diarrhea, dyspepsia, dysphagia, early satiety, excessive flatus, fecalincontinence, heartburn, hematemesis, hematochezia, hemorrhoids, loose stools, melena, nausea, odynophagia, rectal bleeding, tenesmus, vomiting or weight changes Vital Signs Vital Signs Vital Signs: 02/09/25 12:50 02/09/25 12:50 02/09/25 13:16 Temperature 97.6 F L 97.6 F L Temperature Source Temporal Pulse Rate 80 80 Respiratory Rate 18 18 Respiratory Pattern Normal Blood Pressure 131/86 H 131/86 H Blood Pressure Mean 101 Blood Pressure Source Monitor Blood Pressure Position Sitting Blood Pressure Location Left Arm Pulse Ox 97 97 Oxygen Delivery Method Room Air Weight Weight: 157 lb 6.561 oz Body Mass Index (BMI) 23.9 Physical Exam Const alert, oriented x3, no apparent distress and healthy appearing General Appearance: cooperative GI normal to inspection, nondistended, normoactive bowel sounds, soft to palpation,non-tender and non-distended Percussion: normal to percussion Rectal Exam: deferred Assessment & Plan Assessment/Plan (1) Acute upper GI bleeding: (2) Gastric ulcer: QUALIFIERS: Gastric ulcer chronicity: acute Gastric ulcer complication status: with hemorrhage Qualified Code(s): K25.0 - Acute gastric ulcer with hemorrhage PLAN: Assessment and Plan Assessment and Plan (1) Gastric ulcer: Status: Acute Qualifiers: Gastric ulcer complication status: with hemorrhage Gastric ulcer chronicity: acute Qualified Code(s): K25.0 - Acute gastric ulcer with hemorrhage (2) Esophagitis determined by endoscopy: Status: Acute Medications: Refilled pantoprazole (Protonix) 40 mg PO BID 30 days 60 tabs 2RF Plan 64y/o male was admitted 10/28/2024 with vomiting black material and Gastroccult positive. He was admitted and EGD performed which revealed Grade D erosive esophagitis and oozing gastric ulcers. G -tube was removed. He was started on pantoprazole 40mg BID and famotidine was discontinued. He resumed apixiban on 11/07/2024. He denies any recurrent episodes of hematemesis and denies any melena. I have recommended he decrease his daily caffeine intake, continue PPI twice daily and we will plan to repeat EGD in 12 to 16 weeks. Patient Instructions: Go to ED with any recurrent bleeding 02/09/25 1502 <Electronically signed by David Jackson DO> Cosigner Signature (if applicable): CC: Dr. Alexey Mayberry MD; David Jackson DO~ Signed [facility] Work Phone: Hospital Discharge instructions No data available for this section [facility] Hospital Discharge instructions Additional Instructions Take all medications as prescribed. Return to the ER if you have a progression or worsening of your breathing. Follow-up with pulmonology as scheduled later in the week.[facility] Work Phone: Progress note No data available for this section [facility] Reason for referral (narrative)* Diagnostic Procedure Only (Routine) - Closed Specialty Diagnoses / Procedures Referred By Contac t Referred To Contact US IMAGING Diagnoses Difficulty swallowing solids Procedures US THYROID/PARATHYROID US SOFT TISSUE HEAD & NECK REAL TIME IMGE Kamran Leigh, LEOBARDO.FELLING MACHINE OPERATOR, DNP [address] [place] [address] Us Imaging Referral ID Status Reason Start Date Expiration Date V isits Requested Visits Authorized [id number] Closed Auto-Generate d Referral 12/26/2021 01/18/2023 1 1 [facility] for referral (narrative)* Outpatient Procedure (Routine) - Pending Review Specialty Diagnoses / Procedures Referred By Arnieac t Referred To Contact [facility] Diagnoses Dysphagia, unspecified type Procedures EGD DIAGNOSTIC ESOPHAGOGASTRODUODENOSC OPY TRANSORAL DIAGNOSTIC Deanna Burnham APRN.CNP [address] [place] [address] [facility] [address] [place] [address] Referral ID Status Reason Start Date Expiration Date Visits Requested Visits Authorized [id number] Pending Review Auto-Generat ed Referral 01/05/2022 01/05/2023 1 1 [facility] for referral (narrative)No reason for referral information [facility] Work Phone: Reason for visit Narrative* Diagnostic Procedure Only (Routine) - Closed Specialty Diagnoses / Procedures Referred By Contgissell t Referred To Contact US IMAGING Diagnoses Difficulty swallowing solids Procedures US THYROID/PARATHYROID US SOFT TISSUE HEAD & NECK REAL TIME IMGE Kamran Liegh APRN.CNP, DNP [address] [place] [address] Us Imaging Referral ID Status Reason Start Date Expiration Date V isits Requested Visits Authorized [id number] Closed Auto-Generate d Referral 12/26/2021 01/18/2023 1 1 [facility] Summary Purpose Family History No Family History Records Found Relationship Condition Age at Onset Recorded Date/T janee father Coronary artery disease Unknown Cardiac disease Unknown Myocardial infarction Unknown mother Diabetes mellitus Unknown brother Hypertension Unknown Advance Directives No Advanced Directives Records Found Advance Directive Response Recorded Date/ Time Name of Medical Power of Security Business Analyst Clarice Guerra (daughter) August 29, 2021 12:59am Advance Directives No July 9:17pm Living Will Yes December 12, 2021 7:28pm Power of Security Business Analyst Yes December 12 7:28pm Advance Directive Response Recorded Date/ Time Name of Medical Power of Security Business Analyst ALEXANDRA GUERRA (DAUGHTER) December 12, 2021 7:28pm Advance Directives No July 9:17pm Living Will No January 10, 2022 1 2:24am Power of Security Business Analyst No January 10, 2022 12:24am Documents on File Type Date Recorded 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 Advance Directive(s) 01/08/2022 4:42 PM Advance Directive Response Recorded Date/ Time Advance Directives No July 8:17pm Living Will No January 09, 2022 1 1:24pm Power of Security Business Analyst No January 09, 2022 11:24pm Advance Directive Response Recorded Date/ Time Advance Directives No July 9:17pm Living Will No January 10, 2022 1 2:24am Power of Security Business Analyst No January 10, 2022 12:24am Advance Directive Response Recorded Date/ Time Advance Directives No July 9:17pm Living Will No November 28, 2022 8:47am Power of Security Business Analyst No November 28 8:47am Advance Directive Response Recorded Date/ Time Advance Directives No July 9:17pm Living Will No March 19, 2023 4:27am Power of Security Business Analyst No March 19 4:27am Advance Directive Response Recorded Date/ Time Name of Medical Power of Security Business Analyst Clarice Guerra July 07, 2023 3:46pm Advance Directives No July 8:17pm Living Will Yes July 07 3:46pm Power of Security Business Analyst Yes July 07, 2023 3:46pm Advance Directive Response Recorded Date/ Time Name of Medical Power of Security Business Analyst evert Oneil September 26, 2023 12:12pm Name of Medical Power of Security Business Analyst clarice guerra January 04, 2024 8:09pm Advance Directives No July 9:17pm Living Will Yes January 04, 2024 8: 09pm Power of Security Business Analyst Yes January 04, 2024 8:09pm Advance Directive Response Recorded Date/ Time Name of Medical Power of Security Business Analyst Clarice Guerra July 07, 2023 3:46pm Name of Medical Power of Security Business Analyst evert Oneil er September 26, 2023 11:12am Advance Directives No July 8:17pm Living Will Yes September 26 11:12am Power of Security Business Analyst Yes September 26, 2023 11:12am Date Activated Date Inactivated Comments 06/09/2024 11:02 AM Question Answer Comments DNR Order Discussed With: Surrogate Decision Raffy er Surrogate Decision Maker Name: Clarice Guerra Surrogate Decision Maker Relationship: Health Care Power of Security Business Analyst AgentMajority of Adult Siblings (business office representative) Date Activated Date Inactivated Comments 06/04/2024 12:46 PM 06/09/2024 11:02 AM Question Answer Comments Full Code Order Discussed With: Surrogate Decisi on Maker Surrogate Decision Maker Name: robe Oneil Documents on File Type Date Recorded 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 Advance Directive(s) 06/16/2024 2:53 PM Date Activated Date Inactivated Comments 06/09/2024 11:02 AM Question Answer Comments DNR Order Discussed With: Surrogate Decision Raffy er Surrogate Decision Maker Name: Clarice Guerra Surrogate Decision Maker Relationship: Health Care Power of Security Business Analyst AgentMajority of Adult Siblings (business office representative) Date Activated Date Inactivated Comments 06/04/2024 12:46 PM 06/09/2024 11:02 AM Question Answer Comments Full Code Order Discussed With: Surrogate Decisi on Maker Surrogate Decision Maker Name: robe Oneil Documents on File Type Date Recorded 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 Yes February 08, 2024 9:43pm Living Will No September 11 4:50pm Do you have a Healthcare Power of Security Business Analyst? No September 11, 2024 4:50pm Living Will No October 28 7:43pm Do you have a Healthcare Power of Security Business Analyst? No October 28, 2024 7:43pm Advance Directives No July 9:17pm Advance Directive Response Recorded Date/ Time Living Will Yes February 08, 2024 9 :43pm Do you have a Healthcare Power of Security Business Analyst? Yes February 08, 2024 9:43pm Living Will No October 28 7:43pm Do you have a Healthcare Power of Security Business Analyst? No October 28, 2024 7:43pm Advance Directives No July 9:17pm Advance Directive Response Recorded Date/ Time Living Will Yes February 08, 2024 9 :43pm Do you have a Healthcare Power of Security Business Analyst? Yes February 08, 2024 9:43pm Living Will No October 28 7:43pm Do you have a Healthcare Power of Security Business Analyst? No October 28, 2024 7:43pm Do you have a Healthcare Power of Security Business Analyst? Yes February 05, 2025 2:05pm Name of Medical Power of Security Business Analyst DAUGHTER February 05, 2025 2:05pm Advance Directives No July 9:17pm Advance Directive Response Recorded Date/ Time Living Will Yes February 08, 2024 9 :43pm Do you have a Healthcare Power of Security Business Analyst? Yes February 08, 2024 9:43pm Do you have a Healthcare Power of Security Business Analyst? Yes February 05, 2025 2:05pm Name of Medical Power of Security Business Analyst DAUGHTER February 05, 2025 2:05pm Advance Directives No July 9:17pm Chief Complaint and Reason for Visit Chief Complaint Shortness of breath SOB Shortness of breath Shortness of breath Shortness of breath Shortness of breath Shortness of breath feel dehydrated, no energy 6 wk FU NICOTINE DEPENDENCE 4 M FU COPD EXACERBATION WITH PNA COPD EXACERBATION WITH PNA Reason for Visit Asthma exacerbation in COPD Hypoxia Respiratory failure Asthma-COPD overlap syndrome Smoking greater than 40 pack years Bronchiectasis Asthma-COPD overlap syndrome Smoking greater than 40 pack years Pneumonia involving right lung Respiratory failure with hypoxia COPD with acute exacerbation Chief Complaint feel dehydrated, no energy 6 wk FU NICOTINE DEPENDENCE 4 M FU COPD EXACERBATION WITH PNA COPD EXACERBATION WITH PNA COPD EXACERBATION WITH PNA COPD EXACERBATION WITH PNA SOB Reason for Visit COPD with acute exac erbation Pneumonia involving right lung Respiratory failure with hypoxia Chief Complaint 4 M FU 6 M FU 3 M FU DYSPHSIA [id number] Reason for Visit Bronchiectasis Nicotine abuse 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 HLD (hyperlipidemia) Paroxysmal atrial tachycardia Paroxysmal ventricular tachycardia Premature ventricular contraction Presence of stent in coronary artery Bronchiectasis Asthma-COPD overlap syndrome Chief Complaint 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 OP 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 Reason for Visit Bronchiectasis Nicotine abuse Asthma-COPD overlap syndrome Dysphagia Chief Complaint 3 M FU 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 Reason for Visit Bronchiectasis Nicotine abuse Asthma-COPD overlap syndrome Dysphagia Chief Complaint NICOTINE DEP 2 WK FU 6 M FU DYSPHAGIA breathing troubles Reason for Visit GERD (gastroesophage al reflux disease) Atherosclerotic heart disease of [place] coronary artery without angina pectoris HLD (hyperlipidemia) Paroxysmal atrial tachycardia Paroxysmal ventricular tachycardia Premature ventricular contraction COPD (chronic obstructive pulmonary disease) Chief Complaint NICOTINE DEP 2 WK FU 6 M FU DYSPHAGIA breathing troubles CTS CTS Reason for Visit GERD (gastroesophage al reflux disease) Atherosclerotic heart disease of [place] coronary artery without angina pectoris HLD (hyperlipidemia) Paroxysmal atrial tachycardia Paroxysmal ventricular tachycardia Premature ventricular contraction COPD (chronic obstructive pulmonary disease) Chief Complaint 2 WK FU 6 M FU DYSPHAGIA breathing troubles CTS CTS shortness of breath 4 M FU Reason for Visit GERD (gastroesophage al reflux disease) Atherosclerotic heart disease of [place] coronary artery without angina pectoris HLD (hyperlipidemia) Paroxysmal atrial tachycardia Paroxysmal ventricular tachycardia Premature ventricular contraction COPD (chronic obstructive pulmonary disease) Bronchiectasis Asthma-COPD overlap syndrome Chief Complaint shortness of breath 4 M FU sob Reason for Visit Bronchiectasis Asthma-COPD overlap syndrome Chief Complaint SOB PREOP PREOP 5 m fu Nicotine dependence, cigarettes, uncomplicated SOB Reason for Visit Asthma-COPD overlap syndrome Nicotine abuse Chief Complaint sob 3 M FU 6 M FU SOB Reason for Visit Asthma-COPD overlap syndrome Nicotine abuse Atherosclerotic heart disease of [place] coronary artery without angina pectoris HLD (hyperlipidemia) Paroxysmal atrial tachycardia Paroxysmal ventricular tachycardia Premature ventricular contraction Chief Complaint Admit Date BL PNA September 11, 2024 1 :57pm BL PNA September 11, 2024 2 :33pm BL PNA September 12, 2024 1 :32pm 1 M FU October 06, 2024 1 2:52pm SEE NOTES October 13, 2024 1:03pm Peg Tube Placement October 15, 2024 12:54pm 2 M FU October 20, 2024 10:08am UPPER GI BLEED October 28, 2024 5:21pm UPPER GI BLEED October 28, 2024 5:26pm UPPER GI BLEED October 29, 2024 4:42pm UPPER GI BLEED October 29, 2024 6:24pm UPPER GI BLEED October 30, 2024 4:45pm UPPER GI BLEED October 30, 2024 8:31pm UPPER GI BLEED October 31, 2024 3:30 pm follow up to Peg removal November 19 1:39pm nocotine January 02, 2025 9:58am Reason for Visit Admit Date Pneumonia September 11, 2024 2 :33pm Physical debility October 06, 2024 1 2:52pm COPD (chronic obstructive pulmonary dise ase) October 06, 2024 12:52pm Pulmonary emboli October 06, 2024 1 2:52pm Tracheostomy in place October 06, 2024 12:52pm Paroxysmal atrial tachycardia October 032024 1:03pm Paroxysmal ventricular tachycardia Febru pierce 2024 1:03pm Premature ventricular contraction Februa ry 2024 1:03pm Atherosclerotic heart 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 without angina pectoris October 13, 2024 1:03pm HLD (hyperlipidemia) October 13, 2024 1:03pm Presence of stent in coronary artery Feb ruary 2024 1:03pm PEG (percutaneous endoscopic gastrostomy ) status October 15, 2024 12:54pm Physical debility October 20, 2024 10:08am Smoking greater than 40 pack years Febru 2024 10:08am COPD (chronic obstructive pulmonary dise ase) October 20, 2024 10:08am Pulmonary emboli October 20, 2024 10:08am Tracheostomy in place October 20 10:08am Acute upper GI bleeding October 28 5:21pm PEG (percutaneous endoscopic gastrostomy ) status October 28, 2024 5:21pm COPD (chronic obstructive pulmonary dise ase) October 28, 2024 5:21pm Esophagitis determined by endoscopy Curtis h 2024 1:39pm Gastric ulcer November 19, 2024 1:3 9pm Chief Complaint Admit Date 1 M FU October 06, 2024 1 2:52pm SEE NOTES October 13, 2024 1:03pm Peg Tube Placement October 15, 2024 12:54pm 2 M FU October 20, 2024 10:08am UPPER GI BLEED October 28, 2024 5:21pm UPPER GI BLEED October 28, 2024 5:26pm UPPER GI BLEED October 29, 2024 4:42pm UPPER GI BLEED October 29, 2024 6:24pm UPPER GI BLEED October 30, 2024 4:45pm UPPER GI BLEED October 30, 2024 8:31pm UPPER GI BLEED October 31, 2024 3:30 pm follow up to Peg removal November 19 1:39pm nocotine January 02, 2025 9:58am 3-4 M F/U January 27, 2025 9:52a m Reason for Visit Admit Date Physical debility October 06, 2024 1 2:52pm COPD (chronic obstructive pulmonary dise ase) October 06, 2024 12:52pm Pulmonary emboli October 06, 2024 1 2:52pm Tracheostomy in place October 06, 2024 12:52pm Paroxysmal atrial tachycardia October 032024 1:03pm Paroxysmal ventricular tachycardia u 2024 1:03pm Premature ventricular contraction Februa ry 2024 1:03pm Atherosclerotic heart 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 without angina pectoris October 13, 2024 1:03pm HLD (hyperlipidemia) October 13, 2024 1:03pm Presence of stent in coronary artery Feb ruary 2024 1:03pm PEG (percutaneous endoscopic gastrostomy ) status October 15, 2024 12:54pm Physical debility October 20, 2024 10:08am Smoking greater than 40 pack years Febru pierce 2024 10:08am COPD (chronic obstructive pulmonary dise ase) October 20, 2024 10:08am Pulmonary emboli October 20, 2024 10:08am Tracheostomy in place October 20 10:08am Acute upper GI bleeding October 28 5:21pm PEG (percutaneous endoscopic gastrostomy ) status October 28, 2024 5:21pm COPD (chronic obstructive pulmonary dise ase) October 28, 2024 5:21pm Esophagitis determined by endoscopy Curtis h 20th, 2025 1:39pm Gastric ulcer November 19, 2024 1:3 9pm Chief Complaint Admit Date SEE NOTES October 13, 2024 1:03pm Peg Tube Placement October 15, 2024 12:54pm 2 M FU October 20, 2024 10:08am UPPER GI BLEED October 28, 2024 5:21pm UPPER GI BLEED October 28, 2024 5:26pm UPPER GI BLEED October 29, 2024 4:42pm UPPER GI BLEED October 29, 2024 6:24pm UPPER GI BLEED October 30, 2024 4:45pm UPPER GI BLEED October 30, 2024 8:31pm UPPER GI BLEED October 31, 2024 3:30 pm follow up to Peg removal November 19 1:39pm nocotine January 02, 2025 9:58am 3-4 M F/U January 27, 2025 9:52a m Reason for Visit Admit Date Paroxysmal atrial tachycardia October 032024 1:03pm Paroxysmal ventricular tachycardia u 2024 1:03pm Premature ventricular contraction Februa ry 2024 1:03pm Atherosclerotic heart 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 without angina pectoris October 13, 2024 1:03pm HLD (hyperlipidemia) October 13, 2024 1:03pm Presence of stent in coronary artery Feb ruary 2024 1:03pm PEG (percutaneous endoscopic gastrostomy ) status October 15, 2024 12:54pm Smoking greater than 40 pack years u 2024 10:08am COPD (chronic obstructive pulmonary dise ase) October 20, 2024 10:08am Physical debility October 20, 2024 10:08am Pulmonary emboli October 20, 2024 10:08am Tracheostomy in place October 20 10:08am Acute upper GI bleeding October 28, 5:21pm PEG (percutaneous endoscopic gastrostomy ) status October 28, 2024 5:21pm COPD (chronic obstructive pulmonary dise ase) October 28, 2024 5:21pm Esophagitis determined by endoscopy Curtis h 2024 1:39pm Gastric ulcer November 19, 2024 1:3 9pm Lung nodules January 27, 2025 9:52a m COPD (chronic obstructive pulmonary dise ase) January 27, 2025 9:52am Physical debility January 27, 2025 9:52a m Pulmonary emboli January 27, 2025 9:52a m Acute upper GI bleeding February 09, 2025 12:23pm Gastric ulcer February 09, 2025 12:2 3pm Chief Complaint Admit Date UPPER GI BLEED October 28, 2024 5:21pm UPPER GI BLEED October 28, 2024 5:26pm UPPER GI BLEED October 29, 2024 4:42pm UPPER GI BLEED October 29, 2024 6:24pm UPPER GI BLEED October 30, 2024 4:45pm UPPER GI BLEED October 30, 2024 8:31pm UPPER GI BLEED October 31, 2024 3:30 pm follow up to Peg removal November 19 1:39pm nocotine January 02, 2025 9:58am 3-4 M F/U January 27, 2025 9:52a m QUADRIPARESIS RX HERE February 23, 2025 9: 54am Test Result February 24, 2025 1:35 pm Reason for Visit Admit Date Acute upper GI bleeding October 28, 025 5:21pm PEG (percutaneous endoscopic gastrostomy ) status October 28, 2024 5:21pm COPD (chronic obstructive pulmonary dise ase) October 28, 2024 5:21pm Esophagitis determined by endoscopy Curtis 2024 1:39pm Gastric ulcer November 19, 2024 1:3 9pm Lung nodules January 27, 2025 9:52a m COPD (chronic obstructive pulmonary dise ase) January 27, 2025 9:52am Physical debility January 27, 2025 9:52a m Pulmonary emboli January 27, 2025 9:52a m Acute upper GI bleeding February 09, 2025 12:23pm Gastric ulcer February 09, 2025 12:2 3pm Chief Complaint Admit Date nocotine January 02, 2025 9:58am 3-4 M F/U January 27, 2025 9:52a m Test Result February 24, 2025 1:35 pm QUADRIPARESIS RX HERE March 26, 2025 11 :00am CEREBRAL HEMORRHAGE March 29, 2025 10:1 1am Reason for Visit Admit Date Lung nodules January 27, 2025 9:52a m COPD (chronic obstructive pulmonary dise ase) January 27, 2025 9:52am Physical debility January 27, 2025 9:52a m Pulmonary emboli January 27, 2025 9:52a m Acute upper GI bleeding February 09, 2025 12:23pm Gastric ulcer February 09, 2025 12:2 3pm Esophagitis determined by endoscopy February 24, 2025 1:35pm History of subarachnoid hemorrhage March 29, 2025 10:11am Anoxic-ischemic encephalopathy March 10:11am Reason for Referral Specialty Diagnoses / Procedures Referred By Contac t Referred To Contact Gastroenterology Diagnoses Difficulty swallowing solids Procedures CONSULT TO GASTROENTEROLOGY OFFICE/OUTPATIENT [facility] HIGH MDM 60-74 MINUTES Kamran Cruz APRN.IRMA, [address] [place] [address] Referral ID Status Reason Start Date Expiration Date Visits Requested Visits Authorized [id number] Pending Review PCP Requested Referral 01/02/2022 12/19/2022 1 1 Specialty Diagnoses / Procedures Referred By Contac t Referred To Contact US IMAGING Diagnoses Difficulty swallowing solids Procedures US THYROID/PARATHYROID US SOFT TISSUE HEAD & NECK REAL TIME IMGE Kamran Leigh APRN.IRMA, [address] [place] [address] Us Imaging Referral ID Status Reason Start Date Expiration Date Visits Requested Visits Authorized [id number] Authorized Auto-Generat ed Referral 12/26/2021 01/18/2023 1 1 Specialty Diagnoses / Procedures Referred By Contac t Referred To Contact CT IMAGING Diagnoses Cerebral hemorrhage (HCC) Procedures CT BRAIN WO IVCON CT HEAD/BRAIN W/O CONTRAST MATERIAL Geneva Perales PA-C [address] [place] [address] [place] [address] Referral ID Status Reason Start Date Expiration Date Visits Requested Visits Authorized [id number] New Request Auto-Generat ed Referral 07/21/2025 1 1 Additional Source Comments (unrecognized sect ion and content) No Status Records FoundNo Status Records FoundNo Status Records FoundNo Status Records FoundNo Status Records FoundNo Status Records FoundNo Status Records FoundNo Status Records Found INFORMATION SOURCE (unrecogn ized section and content) DATE CREATED AUTHOR 06/11/2018 [facility] DATE CREATED AUTHOR AUTHOR'S ORGANIZ ATION 01/21/2022 [facility] DATE CREATED AUTHOR AUTHOR'S ORGANIZ ATION 07/02/2022 [facility] DATE CREATED AUTHOR AUTHOR'S ORGANIZ ATION 06/30/2023 [facility] DATE CREATED AUTHOR AUTHOR'S ORGANIZ ATION 06/26/2024 [facility] DATE CREATED AUTHOR AUTHOR'S ORGANIZ ATION 04/04/2025 [facility] DATE CREATED AUTHOR AUTHOR'S ORGANIZ ATION 04/06/2025 [facility] DATE CREATED AUTHOR AUTHOR'S ORGANIZ ATION 04/07/2025 [facility] Source Comments (unrecognize d section and content) In the event this informatio n is protected by the Federal Confidentiality of Alcohol and Drug Abuse Patient Records regulations: The Federal rules restrict any use of the information to criminally investigate or prosecute any alcohol or drug abuse patient.[facility] the event this information is protected by the Federal Confidentiality of Alcohol and Drug Abuse Patient Records regulations: The Federal rules restrict any use of the information to criminally investigate or prosecute any alcohol or drug abuse patient.[facility] the event this information is protected by the Federal Confidentiality of Alcohol and Drug Abuse Patient Records regulations: The Federal rules restrict any use of the information to criminally investigate or prosecute any alcohol or drug abuse patient.[facility] the event this information is protected by the Federal Confidentiality of Alcohol and Drug Abuse Patient Records regulations: The Federal rules restrict any use of the information to criminally investigate or prosecute any alcohol or drug abuse patient.[facility]In the event this information is protected by the Federal Confidentiality of Alcohol and Drug Abuse Patient Records regulations: The Federal rules restrict any use of the information to criminally investigate or prosecute any alcohol or drug abuse patient.[facility]In the event this information is protected by the Federal Confidentiality of Alcohol and Drug Abuse Patient Records regulations: The Federal rules restrict any use of the information to criminally investigate or prosecute any alcohol or drug abuse patient.[facility] the event this information is protected by the Federal Confidentiality of Alcohol and Drug Abuse Patient Records regulations: The Federal rules restrict any use of the information to criminally investigate or prosecute any alcohol or drug abuse patient.[facility] the event this information is protected by the Federal Confidentiality of Alcohol and Drug Abuse Patient Records regulations: The Federal rules restrict any use of the information to criminally investigate or prosecute any alcohol or drug abuse patient.[facility]In the event this information is protected by the Federal Confidentiality of Alcohol and Drug Abuse Patient Records regulations: The Federal rules restrict any use of the information to criminally investigate or prosecute any alcohol or drug abuse patient.[facility]In the event this information is protected by the Federal Confidentiality of Alcohol and Drug Abuse Patient Records regulations: The Federal rules restrict any use of the information to criminally investigate or prosecute any alcohol or drug abuse patient.[facility]In the event this information is protected by the Federal Confidentiality of Alcohol and Drug Abuse Patient Records regulations: The Federal rules restrict any use of the information to criminally investigate or prosecute any alcohol or drug abuse patient.[facility]In the event this information is protected by the Federal Confidentiality of Alcohol and Drug Abuse Patient Records regulations: The Federal rules restrict any use of the information to criminally investigate or prosecute any alcohol or drug abuse patient.[facility]In the event this information is protected by the Federal Confidentiality of Alcohol and Drug Abuse Patient Records regulations: The Federal rules restrict any use of the information to criminally investigate or prosecute any alcohol or drug abuse patient.[facility]In the event this information is protected by the Federal Confidentiality of Alcohol and Drug Abuse Patient Records regulations: The Federal rules restrict any use of the information to criminally investigate or prosecute any alcohol or drug abuse patient.[facility]In the event this information is protected by the Federal Confidentiality of Alcohol and Drug Abuse Patient Records regulations: The Federal rules restrict any use of the information to criminally investigate or prosecute any alcohol or drug abuse patient.[facility]In the event this information is protected by the Federal Confidentiality of Alcohol and Drug Abuse Patient Records regulations: The Federal rules restrict any use of the information to criminally investigate or prosecute any alcohol or drug abuse patient.[facility]In the event this information is protected by the Federal Confidentiality of Alcohol and Drug Abuse Patient Records regulations: The Federal rules restrict any use of the information to criminally investigate or prosecute any alcohol or drug abuse patient.[facility]In the event this information is protected by the Federal Confidentiality of Alcohol and Drug Abuse Patient Records regulations: The Federal rules restrict any use of the information to criminally investigate or prosecute any alcohol or drug abuse patient.[facility]In the event this information is protected by the Federal Confidentiality of Alcohol and Drug Abuse Patient Records regulations: The Federal rules restrict any use of the information to criminally investigate or prosecute any alcohol or drug abuse patient.[facility]In the event this information is protected by the Federal Confidentiality of Alcohol and Drug Abuse Patient Records regulations: The Federal rules restrict any use of the information to criminally investigate or prosecute any alcohol or drug abuse patient.[facility]In the event this information is protected by the Federal Confidentiality of Alcohol and Drug Abuse Patient Records regulations: The Federal rules restrict any use of the information to criminally investigate or prosecute any alcohol or drug abuse patient.[facility] SouthIn the event this information is protected by the Federal Confidentiality of Alcohol and Drug Abuse Patient Records regulations: The Federal rules restrict any use of the information to criminally investigate or prosecute any alcohol or drug abuse patient.[facility] SouthIn the event this information is protected by the Federal Confidentiality of Alcohol and Drug Abuse Patient Records regulations: The Federal rules restrict any use of the information to criminally investigate or prosecute any alcohol or drug abuse patient.[facility] SouthIn the event this information is protected by the Federal Confidentiality of Alcohol and Drug Abuse Patient Records regulations: The Federal rules restrict any use of the information to criminally investigate or prosecute any alcohol or drug abuse patient.[facility] SouthIn the event this information is protected by the Federal Confidentiality of Alcohol and Drug Abuse Patient Records regulations: The Federal rules restrict any use of the information to criminally investigate or prosecute any alcohol or drug abuse patient.[facility] SouthIn the event this information is protected by the Federal Confidentiality of Alcohol and Drug Abuse Patient Records regulations: The Federal rules restrict any use of the information to criminally investigate or prosecute any alcohol or drug abuse patient.[facility] SouthIn the event this information is protected by the Federal Confidentiality of Alcohol and Drug Abuse Patient Records regulations: The Federal rules restrict any use of the information to criminally investigate or prosecute any alcohol or drug abuse patient.[facility] SouthIn the event this information is protected by the Federal Confidentiality of Alcohol and Drug Abuse Patient Records regulations: The Federal rules restrict any use of the information to criminally investigate or prosecute any alcohol or drug abuse patient.[facility] SouthIn the event this information is protected by the Federal Confidentiality of Alcohol and Drug Abuse Patient Records regulations: The Federal rules restrict any use of the information to criminally investigate or prosecute any alcohol or drug abuse patient.[facility] SouthIn the event this information is protected by the Federal Confidentiality of Alcohol and Drug Abuse Patient Records regulations: The Federal rules restrict any use of the information to criminally investigate or prosecute any alcohol or drug abuse patient.[facility] SouthIn the event this information is protected by the Federal Confidentiality of Alcohol and Drug Abuse Patient Records regulations: The Federal rules restrict any use of the information to criminally investigate or prosecute any alcohol or drug abuse patient.[facility] SouthIn the event this information is protected by the Federal Confidentiality of Alcohol and Drug Abuse Patient Records regulations: The Federal rules restrict any use of the information to criminally investigate or prosecute any alcohol or drug abuse patient.[facility] SouthIn the event this information is protected by the Federal Confidentiality of Alcohol and Drug Abuse Patient Records regulations: The Federal rules restrict any use of the information to criminally investigate or prosecute any alcohol or drug abuse patient.[facility] SouthIn the event this information is protected by the Federal Confidentiality of Alcohol and Drug Abuse Patient Records regulations: The Federal rules restrict any use of the information to criminally investigate or prosecute any alcohol or drug abuse patient.[facility] SouthIn the event this information is protected by the Federal Confidentiality of Alcohol and Drug Abuse Patient Records regulations: The Federal rules restrict any use of the information to criminally investigate or prosecute any alcohol or drug abuse patient.[facility] SouthIn the event this information is protected by the Federal Confidentiality of Alcohol and Drug Abuse Patient Records regulations: The Federal rules restrict any use of the information to criminally investigate or prosecute any alcohol or drug abuse patient.[facility] SouthIn the event this information is protected by the Federal Confidentiality of Alcohol and Drug Abuse Patient Records regulations: The Federal rules restrict any use of the information to criminally investigate or prosecute any alcohol or drug abuse patient.[facility] SouthIn the event this information is protected by the Federal Confidentiality of Alcohol and Drug Abuse Patient Records regulations: The Federal rules restrict any use of the information to criminally investigate or prosecute any alcohol or drug abuse patient.[facility] SouthIn the event this information is protected by the Federal Confidentiality of Alcohol and Drug Abuse Patient Records regulations: The Federal rules restrict any use of the information to criminally investigate or prosecute any alcohol or drug abuse patient.[facility] SouthIn the event this information is protected by the Federal Confidentiality of Alcohol and Drug Abuse Patient Records regulations: The Federal rules restrict any use of the information to criminally investigate or prosecute any alcohol or drug abuse patient.[facility] SouthIn the event this information is protected by the Federal Confidentiality of Alcohol and Drug Abuse Patient Records regulations: The Federal rules restrict any use of the information to criminally investigate or prosecute any alcohol or drug abuse patient.[facility] SouthIn the event this information is protected by the Federal Confidentiality of Alcohol and Drug Abuse Patient Records regulations: The Federal rules restrict any use of the information to criminally investigate or prosecute any alcohol or drug abuse patient.[facility] SouthIn the event this information is protected by the Federal Confidentiality of Alcohol and Drug Abuse Patient Records regulations: The Federal rules restrict any use of the information to criminally investigate or prosecute any alcohol or drug abuse patient.[facility] SouthIn the event this information is protected by the Federal Confidentiality of Alcohol and Drug Abuse Patient Records regulations: The Federal rules restrict any use of the information to criminally investigate or prosecute any alcohol or drug abuse patient.[facility]In the event this information is protected by the Federal Confidentiality of Alcohol and Drug Abuse Patient Records regulations: The Federal rules restrict any use of the information to criminally investigate or prosecute any alcohol or drug abuse patient.[facility] SouthIn the event this information is protected by the Federal Confidentiality of Alcohol and Drug Abuse Patient Records regulations: The Federal rules restrict any use of the information to criminally investigate or prosecute any alcohol or drug abuse patient.[facility] SouthIn the event this information is protected by the Federal Confidentiality of Alcohol and Drug Abuse Patient Records regulations: The Federal rules restrict any use of the information to criminally investigate or prosecute any alcohol or drug abuse patient.[facility] SouthIn the event this information is protected by the Federal Confidentiality of Alcohol and Drug Abuse Patient Records regulations: The Federal rules restrict any use of the information to criminally investigate or prosecute any alcohol or drug abuse patient.[facility] SouthIn the event this information is protected by the Federal Confidentiality of Alcohol and Drug Abuse Patient Records regulations: The Federal rules restrict any use of the information to criminally investigate or prosecute any alcohol or drug abuse patient.[facility] SouthIn the event this information is protected by the Federal Confidentiality of Alcohol and Drug Abuse Patient Records regulations: The Federal rules restrict any use of the information to criminally investigate or prosecute any alcohol or drug abuse patient.[facility] SouthIn the event this information is protected by the Federal Confidentiality of Alcohol and Drug Abuse Patient Records regulations: The Federal rules restrict any use of the information to criminally investigate or prosecute any alcohol or drug abuse patient.[facility] SouthIn the event this information is protected by the Federal Confidentiality of Alcohol and Drug Abuse Patient Records regulations: The Federal rules restrict any use of the information to criminally investigate or prosecute any alcohol or drug abuse patient.[facility] Reason for Visit (unrecogniz ed section and content) Reason Comments Refill Request Reason Comments Difficulty Swallowing X 1 month Reason Comments Hospital Follow Up [facility] 12/14/21, DX: Pneumonia, COPD Reason Comments New Patient Difficulty swallowin g Specialty Diagnoses / Procedures Referred By Contact Referred To Contact Gastroenterology / ORTHOPAEDIC SURGERY Diagnoses Difficulty swallowing solids Procedures CONSULT TO GASTROENTEROLOGY OFFICE/OUTPATIENT NEW HIGH MDM 60-74 MINUTES Kamran Cruz, LEOBARDO.FELLING MACHINE OPERATOR, DNP [address] [place] [address] [address] [place] [address] Referral ID Status Reason Start Date Expiration Date V isits Requested Visits Authorized [id number] Closed PCP Requested Referral 01/02/2022 12/19/2022 1 1 Reason Comments Consult Reason Onset Date Comments Refill Request 02/01/2022 Reason Comments Difficulty Swallowing Reason Comments Derm Problem Reason Comments F/U 6 months Reason Comments Ear Problem left ear feels clogg ed x 2 days Reason Onset Date Comments Appointment 03/17/2024 Reason Comments Medicare Wellness Exam Reason Comments Critical Care Transport Reason Onset Date Comments ACM DAWN RN 06/12/2024 ED Utilizatio n review per request of payor Reason Onset Date Comments Population Health Navigation Outreach 07/06/2024 [employer]Work[employer]/Mariela Reason Comments Clinical Update Reason Onset Date Comments Population Health Navigation Outreach 2024 [employer]/Workbench/[place] Reason Onset Date Comments Population Health Navigation Outreach 09/29/2024 [employer] high prioity attempt 1 Reason Onset Date Comments Population Health Navigation Outreach 10/05/2024 [employer] high risk attempt 2 Reason Onset Date Comments Population Health Navigation Outreach 10/08/2024 [employer] high risk attempt 3 Reason Comments Request Outside Medical Records 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 Reason Onset Date Comments Care Coordination 01/15/2025 [facility] In[facility] Call Reason Comments Urinary Incontinence Reason Comments Home Health Update Reason Onset Date Comments Refill Request 02/18/2025 Reason Comments Follow-up Mass on left ear jackie luation. Pain level 2 Reason Comments Follow-up Neck review. Reason Comments Follow Up 14 week follow up- r equesting to have occupational therapy and speech therapy as well Reason Comments [facility] Pre[facility] Call/Request Care Teams (unrecognized sec tion and content) Team Status: Active Member Role Status Dates Dr. Alexey Mayberry MD Primary Care Provider Active Team Status: Inactive Member Role Status Dates Debbi Schaffer NP, MANAGER OF DISASTER RECOVERY-C Attending Provider Active Start: October 06, 2024 End: October 06, 2024 No Primary Care Physician Primary Care Provider Active Start: October 06, 2024 End: October 06, 2024 No Primary Care Physician Referring Provider Active Start: October 06, 2024 End: October 06, 2024 Team Status: Inactive Member Role Status Dates Sierra Arrieta PA, PA Attending Provider Active Start: October 13, 2024 End: October 13, 2024 No Primary Care Physician Referring Provider Active Start: October 13, 2024 End: October 13, 2024 Out [facility] Doctor Primary Care Provider Active Start: October 13, 2024 End: October 13, 2024 Team Status: Inactive Member Role Status Dates No Primary Care Physician Referring Provider Active Start: October 15, 2024 End: October 15, 2024 GEMA Naranjo Attending Provider Active Start: October 15, 2024 End: October 15, 2024 Out [facility] Doctor Primary Care Provider Active Start: October 15, 2024 End: October 15, 2024 Team Status: Inactive Member Role Status Dates GEMA Christy Attending Provider Active Start: October 20, 2024 End: October 20, 2024 Out [facility] Doctor Primary Care Provider Active Start: October 20, 2024 End: October 20, 2024 Out [facility] Doctor Referring Provider Active Sta rt: October 20, 2024 End: October 20, 2024 Team Status: Inactive Member Role Status Dates Jose Duff MD Referring Provider Active Star t: October 28, 2024 End: October 31, 2024 Jose Duff MD Emergency Provider Active Star t: October 28, 2024 End: October 31, 2024 Dr. Alexey Mayberry MD Primary Care Provider Active Start: October 28, 2024 End: October 31, 2024 Dr. Dean Cheney DO Admit Provider Active Star t: October 28, 2024 End: October 31, 2024 Dr. Dean Cheney DO Other Provider Active Star t: October 28, 2024 End: October 31, 2024 Dr. Luiz Estevez MD Attending Provider Active Start: October 28, 2024 End: October 31, 2024 Team Status: Active Member Role Status Dates Jose Duff MD Emergency Provider Active Star t: October 28, 2024 Dr. Alexey Mayberry MD Primary Care Provider Active Start: October 28, 2024 Dr. Dean Cheney DO Admit Provider Active Star t: October 28, 2024 Dr. Dean Cheney DO Attending Provider Active Start: October 28, 2024 Dr. Dean Cheney DO Other Provider Active Star t: October 28, 2024 Team Status: Active Member Role Status Dates Jose Duff MD Referring Provider Active Star t: October 29, 2024 Jose Duff MD Emergency Provider Active Star t: October 29, 2024 Dr. Alexey Mayberry MD Primary Care Provider Active Start: October 29, 2024 Dr. Dean Cheney DO Admit Provider Active Star t: October 29, 2024 Dr. Dean Cheney DO Other Provider Active Star t: October 29, 2024 Dr. Luiz Estevez MD Other Provider Active Start: October 29, 2024 Dr. David Jackson DO Attending Provider Active Start: October 29, 2024 Team Status: Active Member Role Status Dates Jose Duff MD Emergency Provider Active Star t: October 29, 2024 Dr. Alexey Mayberry MD Primary Care Provider Active Start: October 29, 2024 Dr. Dean Cheney DO Admit Provider Active Star t: October 29, 2024 Dr. Dean Cheney DO Other Provider Active Star t: October 29, 2024 Dr. Luiz Estevez MD Attending Provider Active Start: October 29, 2024 Dr. Luiz Estevez MD Other Provider Active Start: October 29, 2024 Team Status: Active Member Role Status Dates Jose Duff MD Referring Provider Active Star t: October 30, 2024 Jose Duff MD Emergency Provider Active Star t: October 30, 2024 Dr. Alexey Mayberry MD Primary Care Provider Active Start: October 30, 2024 Dr. Dean Cheney DO Admit Provider Active Star t: October 30, 2024 Dr. Dean Cheney DO Other Provider Active Star t: October 30, 2024 Dr. Luiz Estevez MD Other Provider Active Start: October 30, 2024 Dr. David Jackson DO Attending Provider Active Start: October 30, 2024 Team Status: Active Member Role Status Dates Jose Duff MD Emergency Provider Active Star t: October 30, 2024 Dr. Alexey Mayberry MD Primary Care Provider Active Start: October 30, 2024 Dr. Dean Cheney DO Admit Provider Active Star t: October 30, 2024 Dr. Dean Cheney DO Other Provider Active Star t: October 30, 2024 Dr. Luiz Estevez MD Attending Provider Active Start: October 30, 2024 Dr. Luiz Estevez MD Other Provider Active Start: October 30, 2024 Team Status: Active Member Role Status Dates Jose Duff MD Emergency Provider Active Star t: October 31, 2024 Dr. Alexey Mayberry MD Primary Care Provider Active Start: October 31, 2024 Dr. Dean Cheney DO Admit Provider Active Star t: October 31, 2024 Dr. Dean Cheney DO Other Provider Active Star t: October 31, 2024 Dr. Luiz Estevez MD Attending Provider Active Start: October 31, 2024 Dr. Luiz Estevez MD Other Provider Active Start: October 31, 2024 Team Status: Inactive Member Role Status Dates Out of [facility] Doctor Referring Provider Active Sta rt: November 19, 2024 End: November 19, 2024 GEMA Naranjo Attending Provider Active Start: November 19, 2024 End: November 19, 2024 Dr. Alexey Mayberry MD Primary Care Provider Active Start: November 19, 2024 End: November 19, 2024 Team Status: Inactive Member Role Status Dates Dr. Alexey Mayberry MD Primary Care Provider Active Start: January 02, 2025 End: January 02, 2025 Debbi Schaffer MANAGER OF DISASTER RECOVERY, MANAGER OF DISASTER RECOVERY-C Attending Provider Active Start: January 02, 2025 End: January 02, 2025 Debbi Schaffer MANAGER OF DISASTER RECOVERY MANAGER OF DISASTER RECOVERY-C Referring Provider Active Start: January 02, 2025 End: January 02, 2025 Team Status: Inactive Member Role Status Dates Out of [facility] Doctor Referring Provider Active Sta rt: January 27, 2025 End: January 27, 2025 Debbi Schaffer NP MANAGER OF DISASTER RECOVERY-C Attending Provider Active Start: January 27, 2025 End: January 27, 2025 Dr. Alexey Mayberry MD Primary Care Provider Active Start: January 27, 2025 End: January 27, 2025 Environmental Emergencies Assistant Relationship Specialty Start Date End Date Alexey Mayberry MD [address] [facility] [place] [address] PCP - General Internal Medicine 11/07/15 Environmental Emergencies Assistant Relationship Specialty Start Date End Date Alexey Mayberry MD [address] [facility] [place] [address] PCP - General Internal Medicine 11/07/15 Environmental Emergencies Assistant Relationship Specialty Start Date End Date Alexey Mayberry MD [address] [facility] [place] [address] PCP - General Internal Medicine 11/07/15 Environmental Emergencies Assistant Relationship Specialty Start Date End Date Alexey Mayberry MD [address] [place] [address] PCP - General Internal Medicine 11/07/15 Environmental Emergencies Assistant Relationship Specialty Start Date End Date Alexey Mayberry MD [address] [facility] [place] [address] PCP - General Internal Medicine 11/07/15 Environmental Emergencies Assistant Relationship Specialty Start Date End Date Alexey Mayberry MD [address] [place] [address] PCP - General Internal Medicine 11/07/15 Environmental Emergencies Assistant Relationship Specialty Start Date End Date Alexey Mayberry MD [address] [facility] [place] [address] PCP - General Internal Medicine 11/07/15 Environmental Emergencies Assistant Relationship Specialty Start Date End Date Alexey Mayberry MD [address] [facility] [place] [address] PCP - General Internal Medicine 11/07/15 Environmental Emergencies Assistant Relationship Specialty Start Date End Date Alexey Mayberry MD [address] [facility] [place] [address] PCP - General Internal Medicine 11/07/15 Environmental Emergencies Assistant Relationship Specialty Start Date End Date Alexey Mayberry MD [address] [facility] [place] [address] PCP - General Internal Medicine 11/07/15 Environmental Emergencies Assistant Relationship Specialty Start Date End Date Alexey Mayberry MD [address] [facility] [place] [place] [address] PCP - General Internal Medicine 11/07/15 Environmental Emergencies Assistant Relationship Specialty Start Date End Date Alexey Mayberry MD [address] [facility] [place] [address] PCP - General Internal Medicine 11/07/15 Environmental Emergencies Assistant Relationship Specialty Start Date End Date Alexey Mayberry MD [address] [facility] [place] [place] [address] PCP - General Internal Medicine 11/07/15 Team Status: Active Member Role Status Dates Dr. Alexey Mayberry MD Family Provider Active Dr. Alexey Mayberry MD Primary Care Provider Active Team Status: Inactive Member Role Status Dates Dr. Alexey Mayberry MD Primary Care Provider, Refer ring Provider Active Debbi Schaffer MANAGER OF DISASTER RECOVERY, MANAGER OF DISASTER RECOVERY-C Attending Provider Active Team Status: Inactive Member Role Status Dates Dr. Alexey Mayberry MD Primary Care Provider, Refer ring Provider Active Wen Parikh MANAGER OF DISASTER RECOVERY, MANAGER OF DISASTER RECOVERY-C Attending Provider Active Team Status: Active Member Role Status Dates Dr. Alexey Mayberry MD Primary Care Provider Active Dr. Crispin Upton MD Attending Provider Active Brett MIRANDA PA-C Referring Provider Active Team Status: Inactive Member Role Status Dates Dr. Alexey Mayberry MD Primary Care Provider Active Debbi Schaffer MANAGER OF DISASTER RECOVERY, MANAGER OF DISASTER RECOVERY-C Attending Provider, Referrin g Provider Active Team Status: Inactive Member Role Status Dates Dr. Alexey Mayberry MD Primary Care Provider Active RUBEN Castro-Efren Attending Provider, Referring Pr ovider Active Team Status: Active Member Role Status Dates Dr. Alexey Mayberry MD Primary Care Provider, Refer ring Provider Active Dr. David Jackson DO Attending Provider, Other Prov ider Active Team Status: Inactive Member Role Status Dates Dr. Alexey Mayberry MD Primary Care Provider, Refer ring Provider Active Dr. David Jackson DO Attending Provider Active Environmental Emergencies Assistant Relationship Specialty Start Date End Date Alexey Mayberry MD [address] [place] [address] PCP - General Internal Medicine 11/07/15 Team Status: Inactive Member Role Status Dates Dr. Alexey Mayberry MD Primary Care Provider, Refer ring Provider Active Blake Miranda MANAGER OF DISASTER RECOVERY, MANAGER OF DISASTER RECOVERY-C Attending Provider Active Team Status: Inactive Member Role Status Dates Dr. Alexey Mayberry MD Primary Care Provider Active Wen Parikh MANAGER OF DISASTER RECOVERY, MANAGER OF DISASTER RECOVERY-C Attending Provider, Referrin g Provider Active Team Status: Active Member Role Status Dates Dr. Alexey Mayberry MD Primary Care Provider Active Dr. Dixon Silva DO Referring Provider, Other Prov ider Active Dr. Henry Velazquez DO Attending Provider Active Team Status: Inactive Member Role Status Dates Dr. Alexey Mayberry MD Primary Care Provider Active Dr. Dixon Silva DO Attending Provider, Referring Provider Active Team Status: Inactive Member Role Status Dates Dr. Alexey Mayberry MD Primary Care Provider, Refer ring Provider Active Dr. Bruce Devries MD Attending Provider Active Team Status: Inactive Member Role Status Dates Dr. Alexey Mayberry MD Primary Care Provider Active Dr. Adeel Busch MD Attending Provider, Emergency Provider Active Team Status: Inactive Member Role Status Dates Dr. Alexey Mayberry MD Primary Care Provider Active Dr. Bruce Devries MD Attending Provider, Referring Pr ovider Active Team Status: Inactive Member Role Status Dates Dr. Alexey Mayberry MD Primary Care Provider Active Dr. Traci Rome DO Emergency Provider Active Team Status: Active Member Role Status Dates Dr. Alexey Mayberry MD Primary Care Provider Active Dr. Dixon Martínez MD Attending Provider Active Brett MIRANDA PA-C Referring Provider Active Team Status: Inactive Member Role Status Dates Dr. Alexey Mayberry MD Primary Care Provider Active Dr. Ryann Yu DO Attending Provider, Emergency Pro vider Active Team Status: Active Member Role Status Dates Dr. Alexey Mayberry MD Primary Care Provider Active Debbi Schaffer MANAGER OF DISASTER RECOVERY, MANAGER OF DISASTER RECOVERY-C Attending Provider, Referrin g Provider Active Team Status: Inactive Member Role Status Dates Dr. Alexey Mayberry MD Primary Care Provider Active Dr. Alvaro Muñiz MD Emergency Provider Active Team Status: Inactive Member Role Status Dates Dr. Alexey Mayberry MD Primary Care Provider Active Dr. Traci Rome DO Attending Provider, Emergency P rovider Active Team Status: Inactive Member Role Status Dates Dr. Alexey Mayberry MD Primary Care Provider Active Dr. Ryann Yu DO Emergency Provider Active Environmental Emergencies Assistant Relationship Specialty Start Date End Date Alexey Mayberry MD [address] [place] [address] PCP - General Internal Medicine 11/07/15 Environmental Emergencies Assistant Relationship Specialty Start Date End Date Alexey Mayberry MD [address] [place], [place] [address] PCP - General Internal Medicine 11/07/15 Environmental Emergencies Assistant Relationship Specialty Start Date End Date Alexey Mayberry MD [address] [place], [place] [address] PCP - General Internal Medicine 11/07/15 Environmental Emergencies Assistant Relationship Specialty Start Date End Date Alexey Mayberry MD [address] [place] [address] PCP - General Internal Medicine 11/07/15 Environmental Emergencies Assistant Relationship Specialty Start Date End Date Alexey Mayberry MD [address] [facility] [place] [address] PCP - General Internal Medicine 11/07/15 Environmental Emergencies Assistant Relationship Specialty Start Date End Date Alexey Mayberry MD [address] [facility] [place] [address] PCP - General Internal Medicine 11/07/15 Heather Davis, AWNING INSTALLER.FELLING MACHINE OPERATOR [address] [facility] [place] [address] Ordnance Mechanic Internal Medicine 08/10/24 Environmental Emergencies Assistant Relationship Specialty Start Date End Date Alexey Mayberry MD [address] [facility] [place] [address] PCP - General Internal Medicine 11/07/15 Heather Davis, AWNING INSTALLER.FELLING MACHINE OPERATOR [address] [facility] [place] [address] Ordnance Mechanic Internal Medicine 08/10/24 Environmental Emergencies Assistant Relationship Specialty Start Date End Date Alexey Mayberry MD [address] [facility] [place] [address] PCP - General Internal Medicine 11/07/15 Heather Davis, AWNING INSTALLER.FELLING MACHINE OPERATOR [address] [place] [address] Ordnance Mechanic Internal Medicine 08/10/24 Environmental Emergencies Assistant Relationship Specialty Start Date End Date Alexey Mayberry MD [address] [place], [place] [id number] PCP - General Internal Medicine 11/07/15 Heather Davis, AWNING INSTALLER.FELLING MACHINE OPERATOR [address] [place] [address] [facility] Internal Medicine 08/10/24 Environmental Emergencies Assistant Relationship Specialty Start Date End Date Alexey Mayberry MD [address] [place] [address] PCP - General Internal Medicine 11/07/15 Heather Davis, AWNING INSTALLER.FELLING MACHINE OPERATOR [address] [place] [address] [facility] Internal Medicine 08/10/24 Environmental Emergencies Assistant Relationship Specialty Start Date End Date Alexey Mayberry MD [address] [place] [address] PCP - General Internal Medicine 11/07/15 Heather Davis, AWNING INSTALLER.FELLING MACHINE OPERATOR [address] [place] [address] [facility] Internal Medicine 08/10/24 Environmental Emergencies Assistant Relationship Specialty Start Date End Date Alexey Mayberry MD [address] [place], [place] [address] PCP - General Internal Medicine 11/07/15 Heather Davis, AWNING INSTALLER.FELLING MACHINE OPERATOR [address] [place] [address] Ordnance Mechanic Internal Medicine 08/10/24 Environmental Emergencies Assistant Relationship Specialty Start Date End Date Alexey Mayberry MD [address] [place], [place] [id number] PCP - General Internal Medicine 11/07/15 Heather Davis, AWNING INSTALLER.FELLING MACHINE OPERATOR [address] [place] [address] Ordnance Mechanic Internal Medicine 08/10/24 Environmental Emergencies Assistant Relationship Specialty Start Date End Date Alexey Mayberry MD [address] [place] [address] PCP - General Internal Medicine 11/07/15 Heather Davis, AWNING INSTALLER.FELLING MACHINE OPERATOR [address] [place] [address] Ordnance Mechanic Internal Medicine 08/10/24 Environmental Emergencies Assistant Relationship Specialty Start Date End Date Alexey Mayberry MD [address] [place] [address] PCP - General Internal Medicine 11/07/15 Heather Davis, AWNING INSTALLER.FELLING MACHINE OPERATOR [address] [place] [address] [facility] Internal Medicine 08/10/24 Environmental Emergencies Assistant Relationship Specialty Start Date End Date Alexey Mayberry MD [address] [place], [place] [address] PCP - General Internal Medicine 11/07/15 Heather Davis, AWNING INSTALLER.FELLING MACHINE OPERATOR [address] [place] [address] Ordnance Mechanic Internal Medicine 08/10/24 Environmental Emergencies Assistant Relationship Specialty Start Date End Date Alexey Mayberry MD [address] [place] [address] PCP - General Internal Medicine 11/07/15 Heather Davis, AWNING INSTALLER.FELLING MACHINE OPERATOR [address] [place] [address] Ordnance Mechanic Internal Medicine 08/10/24 Environmental Emergencies Assistant Relationship Specialty Start Date End Date Alexey Mayberry MD [address] [place] [address] PCP - General Internal Medicine 11/07/15 Heather Davis, AWNING INSTALLER.FELLING MACHINE OPERATOR [address] [place] [address] [facility] Internal Medicine 08/10/24 Environmental Emergencies Assistant Relationship Specialty Start Date End Date Alexey Mayberry MD [address] [place] [address] PCP - General Internal Medicine 11/07/15 Heather Davis, AWNING INSTALLER.FELLING MACHINE OPERATOR [address] [place] [address] [facility] Internal Medicine 08/10/24 Environmental Emergencies Assistant Relationship Specialty Start Date End Date Alexey Mayberry MD [address] [place] [address] PCP - General Internal Medicine 11/07/15 Heather Davis, AWNING INSTALLER.FELLING MACHINE OPERATOR [address] [place] [address] Ordnance Mechanic Internal Medicine 08/10/24December, Juli Johnson RN [address] [place] [address] Telemarketing Agent Unspecified 10/21/24 Environmental Emergencies Assistant Relationship Specialty Start Date End Date Alexey Mayberry MD [address] [place], [place] [address] PCP - General Internal Medicine 11/07/15 Heather Davis, AWNING INSTALLER.FELLING MACHINE OPERATOR [address] [place] [address] Ordnance Mechanic Internal Medicine 08/10/24December, Juli Johnson RN [address] [place] [address] Telemarketing Agent Unspecified 10/21/24 Yany Jackman LSW [employer] Coffee Roaster Helper 12/07/24 12/07/24 Environmental Emergencies Assistant Relationship Specialty Start Date End Date Alexey Mayberry MD [address] [place], [place] [address] PCP - General Internal Medicine 11/07/15 Heather Davis, AWNING INSTALLER.FELLING MACHINE OPERATOR [address] [place] [address] Ordnance Mechanic Internal Medicine 08/10/24December, Juli Johnson RN [address] [place] [address] Telemarketing Agent Unspecified 10/21/24 Environmental Emergencies Assistant Relationship Specialty Start Date End Date Shemar Figueroa MD [address] [facility] Ear, Nose and Throat [place], [place] [address] Referring Physician Otolaryngology 12/17/24 Environmental Emergencies Assistant Relationship Specialty Start Date End Date Alexey Mayberry MD [address] [place] [address] PCP - General Internal Medicine 11/07/15 Heather Davis, AWNING INSTALLER.FELLING MACHINE OPERATOR [address] [place] [address] Ordnance Mechanic Internal Medicine 08/10/24December, Juli Johnson RN [address] [place] [address] Telemarketing Agent Unspecified 10/21/24 Team Status: Active Member Role Status Dates Jose Duff MD Emergency Provider Active Star t: September 11, 2024 No Primary Care Physician Primary Care Provider Active Start: September 11, 2024 Dr. Jaqui Adler MD Admit Provider Active St art: September 11, 2024 Dr. Jaqui Adler MD Attending Provider Active Start: September 11, 2024 Dr. Jaqui Adler MD Other Provider Active St art: September 11, 2024 Team Status: Inactive Member Role Status Dates Jose Duff MD Emergency Provider Active Star t: September 11, 2024 End: September 12, 2024 No Primary Care Physician Primary Care Provider Active Start: September 11, 2024 End: September 12, 2024 Dr. Jaqui Adler MD Admit Provider Active St art: September 11, 2024 End: September 12, 2024 Dr. Jaqui Adler MD Referring Provider Active Start: September 11, 2024 End: September 12, 2024 Dr. Jaqui Adler MD Other Provider Active St art: September 11, 2024 End: September 12, 2024 Dr. Thai Riley DO Attending Provider Active Start: September 11, 2024 End: September 12, 2024 Team Status: Active Member Role Status Dates Jose Duff MD Emergency Provider Active Star t: September 12, 2024 No Primary Care Physician Primary Care Provider Active Start: September 12, 2024 Dr. Jaqui Adler MD Admit Provider Active St art: September 12, 2024 Dr. Jaqui Adler MD Other Provider Active St art: September 12, 2024 Dr. Thai Riley DO Attending Provider Active Start: September 12, 2024 Dr. Thai Riley DO Other Provider Active S tart: September 12, 2024 Environmental Emergencies Assistant Relationship Specialty Start Date End Date Alexey Mayberry MD [address] [place] [address] PCP - General Internal Medicine 11/07/15 Heather Davis, AWNING INSTALLER.FELLING MACHINE OPERATOR [address] [place] [address] Ordnance Mechanic Internal Medicine 08/10/24December, Juli Johnson RN [address] [place] [address] Telemarketing Agent Unspecified 10/21/24 Environmental Emergencies Assistant Relationship Specialty Start Date End Date Alexey Mayberry MD [address] [place], [place] [address] PCP - General Internal Medicine 11/07/15 Heather Davis, AWNING INSTALLER.FELLING MACHINE OPERATOR [address] [place], [place] [address] Ordnance Mechanic Internal Medicine 08/10/24 Environmental Emergencies Assistant Relationship Specialty Start Date End Date Alexey Mayberry MD [address] [place], [place] [address] PCP - General Internal Medicine 11/07/15 Heather Davis, AWNING INSTALLER.FELLING MACHINE OPERATOR [address] [place] [address] Ordnance Mechanic Internal Medicine 08/10/24 Team Status: Inactive Member Role Status Dates Dr. Alexey Mayberry MD Primary Care Provider Active Start: February 09, 2025 End: February 09, 2025 Dr. Alexey Mayberry MD Referring Provider Active Start: February 09, 2025 End: February 09, 2025 Dr. David Jackson DO Attending Provider Active Start: February 09, 2025 End: February 09, 2025 Team Status: Active Member Role Status Dates Dr. Alexey Mayberry MD Primary Care Provider Active Start: February 09, 2025 Dr. Alexey Mayberry MD Referring Provider Active Start: February 09, 2025 Dr. David Jackson DO Attending Provider Active Start: February 09, 2025 Dr. David Jackson DO Other Provider Active St art: February 09, 2025 Environmental Emergencies Assistant Relationship Specialty Start Date End Date Alexey Mayberry MD [address] [place] [address] PCP - General Internal Medicine 11/07/15 Heather Davis, AWNING INSTALLER.FELLING MACHINE OPERATOR [address] [place] [address] Ordnance Mechanic Internal Medicine 08/10/24 Team Status: Active Member Role Status Dates Dr. lAexey Mayberry MD Primary Care Provider Active Start: February 23, 2025 Dr. Alexey Mayberry MD Attending Provider Active Start: February 23, 2025 Dr. Alexey Mayberry MD Referring Provider Active Start: February 23, 2025 Team Status: Inactive Member Role Status Dates Dr. Alexey Mayberry MD Primary Care Provider Active Start: February 24, 2025 End: February 24, 2025 Dr. Alexey Mayberry MD Referring Provider Active Start: February 24, 2025 End: February 24, 2025 GEMA Naranjo Attending Provider Active Start: February 24, 2025 End: February 24, 2025 Environmental Emergencies Assistant Relationship Specialty Start Date End Date Shemar Figueroa MD [address] [place] [facility] [address] Referring Physician Otolaryngology 12/17/24 Environmental Emergencies Assistant Relationship Specialty Start Date End Date Shemar Figueroa MD [address] [place] [facility] [address] Referring Physician Otolaryngology 12/17/24 Environmental Emergencies Assistant Relationship Specialty Start Date End Date Alexey Mayberry MD [address] [place] [address] PCP - General Internal Medicine 11/07/15 Heather Davis, LEOBARDO.FELLING MACHINE OPERATOR [address] [place] [address] Ordnance Mechanic Internal Medicine 08/10/24 Team Status: Active Member Role/Relationship Status Dates Dr. Alexey Mayberry MD Primary Care Provider Active Team Status: Inactive Member Role/Relationship Status Dates Dr. Alexey Mayberry MD Primary Care Provider Active Start: January 02, 2025 End: January 02, 2025 Debbi Schaffer MANAGER OF DISASTER RECOVERY, MANAGER OF DISASTER RECOVERY-C Attending Provider Active Start: January 02, 2025 End: January 02, 2025 Debbi Schaffer MANAGER OF DISASTER RECOVERY, MANAGER OF DISASTER RECOVERY-C Referring Provider Active Start: January 02, 2025 End: January 02, 2025 Team Status: Inactive Member Role/Relationship Status Dates Out [facility] Doctor Referring Provider Active Sta rt: January 27, 2025 End: January 27, 2025 Debbi Schaffer MANAGER OF DISASTER RECOVERY, MANAGER OF DISASTER RECOVERY-C Attending Provider Active Start: January 27, 2025 End: January 27, 2025 Dr. Alexey Mayberry MD Primary Care Provider Active Start: January 27, 2025 End: January 27, 2025 Team Status: Inactive Member Role/Relationship Status Dates Dr. Alexey Mayberry MD Primary Care Provider Active Start: February 09, 2025 End: February 09, 2025 Dr. Alexey Mayberry MD Referring Provider Active Start: February 09, 2025 End: February 09, 2025 Dr. David Jackson DO Attending Provider Active Start: February 09, 2025 End: February 09, 2025 Team Status: Active Member Role/Relationship Status Dates Dr. Alexey Mayberry MD Primary Care Provider Active Start: February 09, 2025 Dr. Alexey Mayberry MD Referring Provider Active Start: February 09, 2025 Dr. David Jackson DO Attending Provider Active Start: February 09, 2025 Dr. David Jackson DO Other Provider Active St art: February 09, 2025 Team Status: Inactive Member Role/Relationship Status Dates Dr. Alexey Mayberry MD Primary Care Provider Active Start: February 24, 2025 End: February 24, 2025 Dr. Alexey Mayberry MD Referring Provider Active Start: February 24, 2025 End: February 24, 2025 GEMA Naranjo Attending Provider Active Start: February 24, 2025 End: February 24, 2025 Team Status: Active Member Role/Relationship Status Dates Dr. Alexey Mayberry MD Primary Care Provider Active Start: March 26, 2025 Dr. Alexey Mayberry MD Attending Provider Active Start: March 26, 2025 Dr. Alexey Mayberry MD Referring Provider Active Start: March 26, 2025 Team Status: Inactive Member Role/Relationship Status Dates Dr. Alexey Mayberry MD Primary Care Provider Active Start: March 29, 2025 End: March 29, 2025 Dr. Alexey Mayberry MD Referring Provider Active Start: March 29, 2025 End: March 29, 2025 Dr. Godfrey Benton MD Attending Provider Active Start: March 29, 2025 End: March 29, 2025 Environmental Emergencies Assistant Relationship Specialty Start Date End Date Alexey Mayberry MD [address] [place] [address] PCP - General Internal Medicine 11/07/15 Heather Davis, AWNING INSTALLER.FELLING MACHINE OPERATOR [address] [place] [address] Ordnance Mechanic Internal Medicine 08/10/24 Goals (unrecognized section and content) Goals may be documented in a n alternate sectionGoals may be documented in an alternate sectionGoals may be documented in an alternate sectionGoals may be documented in an alternate sectionGoals may be documented in an alternate section No data available for this sectionGoals may be documented in an alternate sectionGoals may be documented in an alternate sectionGoals may be documented in an alternate sectionGoals may be documented in an alternate section FOR RECORDS PERTAINING TO PATIENTS WHO ARE [...] BE BASED ON THE PRIMARY CLINICAL RECORDS. [facility] [employer] [facility]. provides no warranty or guarantee of the accuracy or completeness of information in this document.
[2025-04-08 07:15] LABS: Hematocrit 40.7 % (40-54); Hemoglobin 12.7 g/dL (13.0-16.5); Immature Granulocytes Count 0.070 X10^3/uL (0.0-0.0); Mean Corp Hgb Conc 31.2 g/dL (32-36); Mean Corpuscular Volume 81.7 fL (80-94); Mean Platelet Vol. 9.5 fl (6.2-12.0); NRBC Flagged by Analyzer 0 % (0-5); POSITIVE DIFFERENTIAL YES; POSITIVE MORPHOLOGY YES; Platelet Count 481 K/mm3 (150-450); RBC Distribution Width CV 16.1 % (11.6-14.6); RBC Distribution Width SD 48.3 fl (35.1-43.9); Red Blood Count 4.98 M/mm3 (4.6-6.2); White Blood Count 10.9 K/mm3 (4.4-11.0)
[2025-04-08 07:22] LABS: Differential Indicated SCAN CRITERIA MET
[2025-04-08 07:25] LABS: Prothrombin Time (Protime)PT. 14.2 SECONDS (11.7-14.9)
[2025-04-08 07:26] LABS: Partial Thromboplast Time 27.1 Seconds (24.1-36.2)
[2025-04-08] MEDS: Ceftriaxone 2 GM in 0.9% Normal Saline (50mL MB+) 50 ML IV (07:33)
[2025-04-08 07:38] LABS: Pro- Brain NATRIURETIC PEPTIDE 299 pg/mL (<=900)
[2025-04-08 07:40] LABS: AST(SGOT) 15 U/L (<=37); Alanine Aminotransfer ALT/SGPT 10 U/L (<=46); Albumin, Serum 3.8 g/dL (3.4-4.8); Alkaline Phosphatase 112 U/L (40-129); Anion Gap 16 (5-15); BUN 13 mg/dL (4-19); BUN/Creat Ratio 11.6 RATIO (10-20); Calcium,Total 9.2 mg/dL (7.6-11.0); Carbon Dioxide 22.6 mmol/L (21.0-32.0); Chloride 101 mmol/L (98-108); Estimated Creatinine Clearance 67.11 ml/min (50-250); Globulin 2.5 g/dL (2.2-4.2); Glucose 116 mg/dL (70-99); Potassium 4.0 mmol/L (3.3-5.1)
[2025-04-08] MEDS: Azithromycin 500 MG in 0.9% Normal Saline (250mL Bag) 250 ML 255 MG IV (08:07)
[2025-04-08] MEDS: 0.9% Normal Saline (1000mL) 1,000 ML 1000 ML IV (08:22)
--- NOTE | 2025-04-08 08:24 | ED.RN ---
Dr. Lazaro in chart, unable to chart meds
[2025-04-08 08:27] LABS: Mucous, Urine 0 SEEN /hpf (<or=2+); Red Blood Cells-Urine 0 SEEN /hpf (0-5); Squamous Epithelial Cells - UA 0 SEEN /hpf (0-5)
[2025-04-08 08:29] LABS: Color, Urine Yellow (Yellow); Glucose, Dipstick Normal (Normal); Ketone-Dipstick Negative (Negative); Leukocyte Esterase-Dipstick Negative /ul (Negative); Nitrite-Dipstick Negative (Negative); Occult Blood-Urine Negative /ul (Negative); Protein-Dipstick 30 mg/dl (Negative); Specific Gravity, Urine 1.015 (1.002-1.030); Urine Bilirubin Dipstick Negative (Negative)
[2025-04-08] MEDS: Vancomycin HCl 1,750 MG in 0.9% Normal Saline (500mL Bag) 500 ML 250 MG IV (09:51)
[2025-04-08] MEDS: Piperacil/Tazobactam 4.5 GM in 0.9% Normal Saline (100mL MB+) 100 ML IV (10:06)
[2025-04-08] MEDS: 0.9% Normal Saline (1000mL) 1,000 ML 125 ML IV ×2 (10:27→18:29)
[2025-04-08 11:07] LABS: Reflex Lactate? Y
--- NOTE | 2025-04-08 11:45 | PCM.RX.CS ---
Consult Antibiotic Management Pharmacy has been consulted to manage selected antibiotic: Vancomycin Type of Intervention Type of Consult: New start Suspected Infection Suspected Infection: Sepsis and Pneumonia Labs Labs: Sodium 139 mmol/L (133-145) 04/08/25 06:51 Potassium 4.0 mmol/L (3.3-5.1) 04/08/25 06:51 Chloride 101 mmol/L (98-108) 04/08/25 06:51 Carbon Dioxide 22.6 mmol/L (21.0-32.0) 04/08/25 06:51 Anion Gap 16 (5-15) H 04/08/25 06:51 BUN 13 mg/dL (4-19) 04/08/25 06:51 Creatinine 1.09 mg/dL (0.70-1.20) 04/08/25 06:51 Est GFR (MDRD) Non-Af 76 (>60) 04/08/25 06:51 BUN/Creatinine Ratio 11.6 RATIO (10-20) 04/08/25 06:51 Glucose 116 mg/dL (70-99) H 04/08/25 06:51 Microbiology Microbiology: Microbiology 04/08/25 08:19 Urine Catheter - Catheter Legionella Antigen - Final 04/08/25 08:19 Urine Catheter - Catheter Streptococcus pneumoniae Antigen (M - Final 04/08/25 06:51 Mucosa - Nose SARS-CoV-2, Influenza & RSV (PCR) - Final Dosing Weight Weight used for dosin.4 kg Estimated Creatinine Clearance Estimated Creatinine Clearance: 67.1 Goal Trough Goal Trough: 15-20 mcg/mL Pharmacy Plan for Drug Dosing Pharmacy Plan for Drug Dosing: Pharmacy Service will continue to monitor and adjust dosing as required. NEW START IV VANCOMYCIN Consulting Physician: Dr. Riley Indication: Sepsis secondary to PNA Goal Trough: 15-20 SrCr: 1.09 (elevated from normal) CrCl: 67.1 LA: 3.2 Temp: 100.7 Weight: 73.4 Comments: Cultures: - Blood: pending - Urine: pending Imaging: - CXR: Left lower lobe infiltrate Vancomycin Dose: LD: 1750 MG once 04/08 @ 0806 MD: 750 MG Q12H with first dose 04/08 @ 1999 Pending Level: 04/09 @ 1930 Other ABX: Zosyn Date/Time Labs Ordered Labs to be done on [date and time ordered]: 04/09/25 @ 1930
--- NOTE | 2025-04-08 12:20 | EX.PCM.CONCC ---
Assessment & Plan Assessment/Plan (1) Sepsis: (2) Hypoxia: PLAN: Plan RECOMMENDATIONS: 1. Additional IV fluids per sepsis protocol. 2. Initiate vasopressor support, if the patient remains hemodynamically unstable. 3. Continue empiric antimicrobials. Send sputum for culture. 4. Continue scheduled bronchodilators. 5. Start IV Solu-Medrol 40 mg every 6 hours. 6. Subcutaneous heparin for DVT prophylaxis. 7. Wean supplemental oxygen to maintain saturations at or above 90%. IMPRESSIONS: 1. Sepsis The patient presented with sepsis due to suspected pneumonia with acute sepsis related organ dysfunction as evidenced by lactic acidemia and persistent hypotension. The patient has received supplemental IV fluid hydration per sepsis protocol. If he remains hemodynamically unstable, we will plan to initiate vasopressor support to maintain a mean arterial pressure at or above 65 mmHg. In the interim, continue empiric antimicrobials, pending infectious workup. 2. History of COPD with pulmonary nodularity/hypoxemia The patient has a known history of COPD on a triple therapy inhaler regimen on an outpatient basis. He does not utilize supplemental oxygen at his baseline. Will plan to continue scheduled bronchodilators and IV steroids for now. Supplemental oxygen will be continued to maintain saturations at or above 90%. 3. History of coronary artery disease/ischemic cardiomyopathy/neuropathy/GERD Complicates care, management, recovery and prognosis. Continue home medications as indicated. PT/OT to evaluate the patient. This note was generated with [employer] dictation software. It may contain incorrect words, spelling, and punctuation that were not noted in checking the note before signing. HPI Consult Data Date of Consult: 04/08/25 HPI Narrative Reason for Consultation: Sepsis HPI Narrative: The patient is a 64-year-old male, with a history as outlined below, who presented to the emergency department via EMS on April 08 with complaints of fever, cough and shortness of breath. The patient is currently followed in the pulmonary medicine clinic due to a history of COPD, for which he is maintained on a triple therapy inhaler regimen. The patient's medical history is also significant for pulmonary nodularity, which is followed longitudinally with follow-up CT scans of the chest. The patient also has known coronary artery disease with ischemic cardiomyopathy and is followed by cardiology on an outpatient basis. Of note, the patient does have positive prior sputum cultures for Klebsiella and Enterobacter in September 2024. The patient reportedly does not utilize supplemental oxygen at his baseline. On presentation to the emergency department, the patient was documented to be febrile, tachycardic and tachypneic. He was initially saturating 78% on room air. Laboratory evaluation revealed a normal white blood cell count. Platelet count was elevated at 481,000. Chemistry profile was notable for an anion gap of 16 with a lactate of 3.2. BNP was within normal limits. Urine analysis was unremarkable. Chest x-ray demonstrated evidence of an infiltrate in the left lower lobe. The patient was ordered to receive supplemental IV fluid hydration and was placed on antimicrobials. He was admitted to the medical intensive care unit for further management. [facility] Medical History Easy bruising History of GI bleed MRSA (methicillin resistant staph aureus) culture positive Chronic neuropathic pain Former smoker Myocardial infarct Pneumonia Tracheostomy in place Foraminal stenosis of cervical region Cervical spondylosis Ribs, multiple fractures Respiratory arrest before cardiac arrest Wears dentures Wears glasses Arthritis History of hiatal hernia Gastric reflux Sleep apnea Hypertension History of echocardiogram History of stress test Cardiology follow-up encounter History of heart attack GERD (gastroesophageal reflux disease) Dysphagia Hypersomnia Bronchiectasis Asthma-COPD overlap syndrome BPH (benign prostatic hyperplasia) Paroxysmal atrial tachycardia Paroxysmal ventricular tachycardia Premature ventricular contraction HCAP (healthcare-associated pneumonia) Atherosclerotic heart disease of [place] coronary artery without angina pectoris Ischemic cardiomyopathy HLD (hyperlipidemia) History of pulmonary embolism Home Medications ?Medication ?Instructions ?Recorded ?Last Taken ?Type gabapentin 400 mg capsule 800 mg (2 x 400 mg) PO TID #1 cap 08/10/24 02/09/25 08:30 Rx bupropion HCl 150 mg 24 hr tablet, 150 mg PO BID 08/16/24 02/09/25 08:30 History extended release albuterol sulfate 2.5 mg/3 mL 2.5 mg inhalation Q4H PRN PRN 09/11/24 Unknown History (0.083 %) solution for nebulization wheezing furosemide 40 mg tablet (Lasix) 40 mg PO DAILY 09/11/24 Unknown History ipratropium 0.5 mg-albuterol 3 mg 3 ml inhalation Q6H PRN PRN dyspnea 09/11/24 Unknown History (2.5 mg base)/3 mL nebulization soln ketoconazole 2 % topical cream 1 applic topical BID 10/06/24 Unknown History quetiapine 25 mg tablet 25 mg PO QHS 10/06/24 Unknown History guaifenesin 1,200 mg tablet, 1,200 mg PO TID PRN congestion 10/20/24 Unknown History extended release 12 hr (Mucinex) fluticasone fur. 200 mcg-umeclid 1 inh inhalation Q24H #60 ea 11/09/24 Unknown Rx 62.5 mcg-vilant 25 mcg inhalat.powder (Trelegy Ellipta) triamcinolone acetonide 0.1 % 1 applic topical .QD 01/27/25 Unknown History topical cream fluticasone propionate 50 2 spray intranasal QDAY #16 grams 02/01/25 Unknown Rx mcg/actuation nasal spray,suspension atorvastatin 20 mg tablet 20 mg PO QHS 02/05/25 Unknown History cyanocobalamin (vitamin B-12) 1,000 mcg PO DAILY 02/05/25 Unknown History 1,000 mcg capsule montelukast 10 mg tablet 10 mg PO DAILY 02/05/25 Unknown History omeprazole 40 mg capsule,delayed 40 mg PO QDAY #90 caps 04/06/25 Unknown Rx release Allergy/AdvReac Type Severity Reaction Status Date / Time latex Allergy Rash Verified 04/08/25 06:34 varenicline tartrate (From Allergy Hives Verified 04/08/25 06:34 Chantix) aspirin AdvReac Upset Verified 04/08/25 06:34 Stomach Family History Father , age 50 CAD (coronary artery disease) Heart disease Myocardial infarction Mother Diabetes Brother Hypertension Surgical History S/P percutaneous endoscopic gastrostomy (PEG) tube placement History of tracheostomy History of chest tube placement Hx of carpal tunnel repair Hx of angioplasty History of cardiac catheterization History of coronary artery stent placement Hx of shoulder surgery Hx of sinus surgery Hx of nasal sinusotomy Hx of cystoscopy Hx of tonsillectomy History of thumb surgery Hx of right knee surgery Presence of coronary angioplasty implant and graft (~06/27/08) History of hernia repair Social History household members: significant other and children Smoking Status: Former smoker alcohol intake: never substance use type: does not use caffeine: Yes Type: coffee Number of servings: 3 what type of physical activity do you participate in: walking frequency: daily duration: 45-60 minutes/day seatbelt use: always do you feel safe at home: Yes ROS ROS Narrative 10 systems were reviewed with pertinent positives as noted in the HPI above. Physical Exam Const alert, oriented x3 and no apparent distress General Appearance: cooperative HEENT normocephalic and head/scalp atraumatic Eyes PERRL, EOMs intact bilaterally and conjunctivae normal Neck supple General: trachea midline Chest inspection of chest normal Resp normal respiratory effort and no use of accessory muscles Effort and Inspection: able to speak in complete sentences Auscultation: rales and diminished lung sounds Cardio regular rate and regular rhythm GI normal to inspection, nondistended, normoactive bowel sounds Extremity no clubbing, cyanosis or edema Skin no rashes or lesions noted Neuro CN's II-XII intact bilaterally, moves all extremities and no focal motor deficits Psych Mood & Affect: flat affect Lab / Micro Data 04/08/25 06:51 04/08/25 06:51 Labs: Laboratory Results - last 24 hr 04/08/25 06:51: WBC 10.9, RBC 4.98, Hgb 12.7 L, Hct 40.7, MCV 81.7, MCH 25.5 L, MCHC 31.2 L, RDW Std Deviation 48.3 H, RDW Coeff of [place] 16.1 H, Plt Count 481 H, MPV 9.5, Immature Gran % (Auto) 0.600, Neut % (Auto) 91.4 H, Lymph % (Auto) 3.6 L, Gage % (Auto) 3.5, Eos % (Auto) 0.6, Baso % (Auto) 0.3, Absolute Neuts (auto) 10.0 H, Absolute Lymphs (auto) 0.39 L, Nucleated RBC % 0, Differential Comment COMMENT, PT 14.2, INR 1.1, APTT 27.1, Sodium 139, Potassium 4.0, Chloride 101, Carbon Dioxide 22.6, Anion Gap 16 H, BUN 13, Creatinine 1.09, Estim Creat Clear Calc 67.11, Est GFR (MDRD) Non-Af 76, BUN/Creatinine Ratio 11.6, Glucose 116 H, Lactic Acid 3.2 H*, Calcium 9.2, Total Bilirubin 0.32, AST 15, ALT 10, Alkaline Phosphatase 112, NT pro BNP II 299, Total Protein 6.3, Albumin 3.8, Globulin 2.5, Albumin/Globulin Ratio 1.5 04/08/25 08:19: Urine Color Yellow, Urine Clarity Clear, Urine pH 8.0, Ur Specific [place] 1.015, Urine Protein 30 H, Urine Glucose (UA) Normal, Urine Ketones Negative, Urine Occult Blood Negative, Urine Nitrite Negative, Urine Bilirubin Negative, Urine Urobilinogen Normal, Ur Leukocyte Esterase Negative, Urine RBC 0 SEEN, Urine WBC 0 SEEN, Ur Squamous Epith Cells 0 SEEN, Urine Bacteria 0 SEEN, Urine Mucus 0 SEEN Micro: Microbiology 04/08/25 08:19 Urine Catheter - Catheter Legionella Antigen - Final 04/08/25 08:19 Urine Catheter - Catheter Streptococcus pneumoniae Antigen (M - Final 04/08/25 06:51 Mucosa - Nose SARS-CoV-2, Influenza & RSV (PCR) - Final Imaging Radiology Impression Chest X-Ray 04/08/25 06:54 IMPRESSION: Left lower lobe infiltrate. Reading Location: [id number] Sepsis Attestation Sepsis Attestation: Agree w/Sepsis Possible Source of Sepsis: Pulmonary Sepsis Organ Dysfunction Criteria Present: SBP < 90 mmHg or MAP < 65 mmHg and Lactic Acid > 2 mmol/L Fluid Resuscitation Fluid resuscitation indicated?: Yes Sepsis Note Date exam was performed: 04/08/25 Time exam was performed: 12:40 Sepsis Attestation: Sepsis re-evaluation was performed Response to fluids: Non Fluid responsive hypotension and Vasopressors started Charges/Coding Visit Charges Inpatient E&M: 07482 Init Hosp L3
[2025-04-08] MEDS: buPROPion (XL) 150 MG TABLET.XL PO ×2 (13:46→21:19)
[2025-04-08] MEDS: Piperacil/Tazobactam 3.375 GM in 0.9% Normal Saline (50mL MB+) 50 ML IV ×2 (13:50→21:19)
--- NOTE | 2025-04-08 15:56 | CHAPLAIN ---
Type of Pastoral Visit _x__ Initial Visit ___ Follow-up Visit ___ On-call Visit ___ General Patient Visit ___ Spiritual Assessment ___ Family Conference ___ Bereavement ___ Rapid Response ___ Code Blue ___ Other (describe below) Pastoral Care Referral From _x__ Patient ___ Family ___ Nurse ___ Physician ___ Drum Puller ___ Software Systems Engineer ___ Other (describe below) Sacrament/Intervention _x__ Active listening ___ Anointing ___ Orthodox ___ Bereavement ___ Communion ___ Ritika exploration ___ ___ Life review _x__ Prayer ___ Reconciliation ___ Sacrament of Sick _x__ Supportive presence ___ Wedding ___ Other (describe below) Pastoral Comments patient is resting quietly but awakens easily to his name; pt is welcoming but mostly answers questions without engaging in a conversation; pt explains reasons for admission and reflects on past hospitalizations; pt admits that it is hard to handle a return to the hospital but willing to do what is necessary to get back his health; pt welcomes presence and prayer but this visit is short due to his being tired and weak
--- NOTE | 2025-04-08 17:05 | HP.PCM.HOS_ITS ---
HPI - General General Date of Admission: 04/08/25 Date of Service: 04/08/25 Chief Complaint: Fever, chills, malaise HPI Narrative CHIO DENT, is a 64 M who presents to the emergency room at [facility] with complaints of fever, chills, and generalized weakness that started early this morning. Patient's heard the patient vomiting and found patient to be weak and called squad. Temperature obtained by squad was 102.7, patient did complain also of some shortness of breath. Patient's pulse ox during triage was noted to be 78% on room air. Workup in the emergency room included a CBC which showed a normal white blood cell count, hemoglobin was 12.7, chemistry panel was unremarkable, lactic acid was elevated at 3.2. Chest x-ray showed left lower lobe infiltrate. Patient will be admitted to ICU for sepsis, he was placed on Zosyn and vancomycin-patient was hospitalized in September of this year-past sputum culture then grew out Enterobacter and Klebsiella, patient's nasal swab during that hospitalization was positive for MRSA. I talked to critical care and they will participate in his care, patient is a full code-I discussed this with the patient and his . [facility] Medical History Easy bruising History of GI bleed MRSA (methicillin resistant staph aureus) culture positive Chronic neuropathic pain Former smoker Myocardial infarct Pneumonia Tracheostomy in place Foraminal stenosis of cervical region Cervical spondylosis Ribs, multiple fractures Respiratory arrest before cardiac arrest Wears dentures Wears glasses Arthritis History of hiatal hernia Gastric reflux Sleep apnea Hypertension History of echocardiogram History of stress test Cardiology follow-up encounter History of heart attack GERD (gastroesophageal reflux disease) Dysphagia Hypersomnia Bronchiectasis Asthma-COPD overlap syndrome BPH (benign prostatic hyperplasia) Paroxysmal atrial tachycardia Paroxysmal ventricular tachycardia Premature ventricular contraction HCAP (healthcare-associated pneumonia) Atherosclerotic heart disease of [place] coronary artery without angina pectoris Ischemic cardiomyopathy HLD (hyperlipidemia) History of pulmonary embolism Home Medications ?Medication ?Instructions ?Recorded ?Last Taken ?Type gabapentin 400 mg capsule 800 mg (2 x 400 mg) PO TID # 1 cap 08/10/24 02/09/25 08:30 Rx bupropion HCl 150 mg 24 hr tablet, 150 mg PO BID 08/1602/09/25 08:30 History extended release albuterol sulfate 2.5 mg/3 mL 2.5 mg inhalation Q4H AZ N PRN 09/11/24 Unknown History (0.083 %) solution for nebulization wheezing furosemide 40 mg tablet (Lasix) 40 mg PO DAILY 5 Unknown History ipratropium 0.5 mg-albuterol 3 mg 3 ml inhalation Q6H PRN PRN dyspnea 09/11/24 Unknown History (2.5 mg base)/3 mL nebulization soln ketoconazole 2 % topical cream 1 applic topical BID Unknown History quetiapine 25 mg tablet 25 mg PO QHS 10/06/24 Unknow n History guaifenesin 1,200 mg tablet, 1,200 mg PO TID PRN conge stion 10/20/24 Unknown History extended release 12 hr (Mucinex) fluticasone fur. 200 mcg-umeclid 1 inh inhalation Q24H #60 ea 11/09/24 Unknown Rx 62.5 mcg-vilant 25 mcg inhalat.powder (Trelegy Ellipta) triamcinolone acetonide 0.1 % 1 applic topical .QD Unknown History topical cream fluticasone propionate 50 2 spray intranasal QDAY #16 grams 02/01/25 Unknown Rx mcg/actuation nasal spray,suspension atorvastatin 20 mg tablet 20 mg PO QHS 02/05/25 Unknow n History cyanocobalamin (vitamin B-12) 1,000 mcg PO DAILY 02/05 Unknown History 1,000 mcg capsule montelukast 10 mg tablet 10 mg PO DAILY 02/05/25 Unkn own History omeprazole 40 mg capsule,delayed 40 mg PO QDAY #90 cap s 04/06/25 Unknown Rx release Allergy/AdvReac Type Severity Reaction Status Date / Time latex Allergy Rash Verified 04/08/25 06:34 varenicline tartrate (From Allergy Hives Verified 04/08/25 06:34 Chantix) aspirin AdvReac Upset Verified 04/08/25 06:34 Stomach Family History Father , age 50 CAD (coronary artery disease) Heart disease Myocardial infarction Mother Diabetes Brother Hypertension Surgical History S/P percutaneous endoscopic gastrostomy (PEG) tube placement History of tracheostomy History of chest tube placement Hx of carpal tunnel repair Hx of angioplasty History of cardiac catheterization History of coronary artery stent placement Hx of shoulder surgery Hx of sinus surgery Hx of nasal sinusotomy Hx of cystoscopy Hx of tonsillectomy History of thumb surgery Hx of right knee surgery Presence of coronary angioplasty implant and graft (~06/27/08) History of hernia repair Social History household members: significant other and children Smoking Status: Former smoker alcohol intake: never substance use type: does not use caffeine: Yes Type: coffee Number of servings: 3 what type of physical activity do you participate in: walking frequency: daily duration: 45-60 minutes/day seatbelt use: always do you feel safe at home: Yes ROS Constitutional Constitutional: Reports chills, fatigue, fever(s), malaise and weakness; Denies anorexia, change in weight or night sweats Eyes Eyes: Denies blurry vision, change in vision, discharge from eye(s) or eye pain Cardiovascular Cardiovascular: Reports dyspnea on exertion; Denies chest pain, claudication, edema or palpitations Respiratory/Chest Respiratory/Chest: Reports dyspnea, shortness of breath at rest and shortness of breath with exertion; Denies cough or hemoptysis Gastrointestinal Gastrointestinal: Denies abdominal pain, constipation, diarrhea, hematemesis, hematochezia, melena, nausea or vomiting Genitourinary Genitourinary: Denies dysuria, hematuria, urinary frequency, urinary hesitancy, urinary incontinence or urinary urgency Musculoskeletal Musculoskeletal: Denies back pain, joint pain, joint stiffness, joint swelling, myalgias or neck pain Neurologic Neurologic: Denies abnormal gait, abnormal speech, dizziness, focal weakness, headache(s), loss of vision, numbness, other visual disturbances, paresthesias, syncope or tingling Psychiatric Psychiatric: Denies anxiety, cognitive impairment, depression, irritability, mood swings or suicidal ideation Endocrine Endocrinology: Denies change in body appearance, cold intolerance, excessive sweating, heat intolerance, polydipsia or polyuria Hematologic/Lymphatic Hematologic/Lymphatic: Denies none, anemia, easy bleeding, easy bruising or lymphadenopathy Allergic/Immunologic Allergic/Immunologic: Denies rhinitis, urticaria, eczemia or asthma Vital Signs Vital Signs Vital Signs: 04/08/25 06:35 04/08/25 06:35 04/08/25 06:39 Temperature 101.1 F H 101.1 F H Temperature Source Oral Oral Pulse Rate 114 H 108 H Respiratory Rate 22 H 22 H Respiratory Effort Respiratory Depth Respiratory Pattern Blood Pressure 101/69 101/69 Blood Pressure Mean 79 79 Blood Pressure Source Blood Pressure Position Blood Pressure Location Pulse Ox 78 84 90 Oxygen Delivery Method Room Air Nasal Cannula Nasal Cannula Oxygen Flow Rate (L/min) 2 2 04/08/25 06:39 04/08/25 06:46 04/08/25 07:05 Temperature Temperature Source Pulse Rate 109 H Respiratory Rate 24 H Respiratory Effort Short of Breath Labored Accessory Muscle Use Respiratory Depth Respiratory Pattern Tachypnea Blood Pressure Blood Pressure Mean Blood Pressure Source Blood Pressure Position Blood Pressure Location Pulse Ox 89 Oxygen Delivery Method Nasal Cannula Oxygen Flow Rate (L/min) 3 04/08/25 07:39 04/08/25 07:53 04/08/25 08:00 Temperature 100.1 F H Temperature Source Oral Pulse Rate 107 H 108 H 107 H Respiratory Rate 21 H 22 H 16 Respiratory Effort Respiratory Depth Respiratory Pattern Blood Pressure 98/58 L 98/58 L 89/69 L Blood Pressure Mean 71 71 77 Blood Pressure Source Blood Pressure Position Blood Pressure Location Pulse Ox 94 95 94 Oxygen Delivery Method Nasal Cannula Nasal Cannula Oxygen Flow Rate (L/min) 3 04/08/25 08:15 04/08/25 08:21 04/08/25 08:22 Temperature 98.5 F 98.3 F Temperature Source Core Pulse Rate 89 89 108 H Respiratory Rate 20 H 21 H 22 H Respiratory Effort Respiratory Depth Respiratory Pattern Blood Pressure 69/50 L 69/51 L 98/58 L Blood Pressure Mean 58 58 71 Blood Pressure Source Blood Pressure Position Blood Pressure Location Pulse Ox 93 93 95 Oxygen Delivery Method Oxygen Flow Rate (L/min) 04/08/25 08:30 04/08/25 08:45 04/08/25 09:00 Temperature 100.4 F H 101.0 F H 101.0 F H Temperature Source Core Core Core Pulse Rate 85 93 87 Respiratory Rate 18 18 19 H Respiratory Effort Respiratory Depth Respiratory Pattern Blood Pressure 67/55 L 72/56 L 71/55 L Blood Pressure Mean 61 63 60 Blood Pressure Source Blood Pressure Position Blood Pressure Location Pulse Ox 95 95 94 Oxygen Delivery Method Oxygen Flow Rate (L/min) 04/08/25 09:20 04/08/25 09:30 04/08/25 09:30 Temperature 100.9 F H 100.8 F H Temperature Source Core Core Pulse Rate 91 91 95 Respiratory Rate 20 H 20 H 20 H Respiratory Effort Normal Respiratory Depth Normal Respiratory Pattern Normal Blood Pressure 71/56 L 73/56 L Blood Pressure Mean 61 61 Blood Pressure Source Monitor Monitor Blood Pressure Position Supine Supine Blood Pressure Location Left Arm Left Arm Pulse Ox 92 92 92 Oxygen Delivery Method Nasal Cannula Nasal Cannula Nasal Cannula Oxygen Flow Rate (L/min) 3 3 3 04/08/25 09:45 04/08/25 09:45 04/08/25 09:45 Temperature 100.7 F H 100.7 F H Temperature Source Core Core Pulse Rate 91 89 91 Respiratory Rate 17 17 Respiratory Effort Respiratory Depth Respiratory Pattern Blood Pressure 76/56 L 76/56 L Blood Pressure Mean 62 62 Blood Pressure Source Monitor Blood Pressure Position Semi-Fowlers Blood Pressure Location Left Arm Pulse Ox 92 92 Oxygen Delivery Method Nasal Cannula Nasal Cannula Oxygen Flow Rate (L/min) 3 3 04/08/25 10:00 04/08/25 10:00 04/08/25 10:15 Temperature 100.7 F H 100.7 F H 100.4 F H Temperature Source Core Core Core Pulse Rate 89 89 97 Respiratory Rate 18 18 21 H Respiratory Effort Respiratory Depth Respiratory Pattern Blood Pressure 83/59 L 83/59 L 84/57 L Blood Pressure Mean 67 67 66 Blood Pressure Source Monitor Blood Pressure Position Supine Blood Pressure Location Left Arm Pulse Ox 90 92 93 Oxygen Delivery Method Nasal Cannula Nasal Cannula Nasal Cannula Oxygen Flow Rate (L/min) 3 3 3 04/08/25 10:30 04/08/25 11:00 04/08/25 11:00 Temperature 100.4 F H 100.3 F H Temperature Source Core Core Pulse Rate 97 100 99 Respiratory Rate 21 H 21 H Respiratory Effort Respiratory Depth Respiratory Pattern Blood Pressure 84/57 L 74/52 L Blood Pressure Mean 66 59 Blood Pressure Source Monitor Monitor Blood Pressure Position Semi-Fowlers Semi-Fowlers Blood Pressure Location Left Arm Left Arm Pulse Ox 93 93 Oxygen Delivery Method Nasal Cannula Nasal Cannula Oxygen Flow Rate (L/min) 3 3 04/08/25 11:00 04/08/25 11:05 04/08/25 11:05 Temperature 100.3 F H Temperature Source Core Pulse Rate 100 113 H Respiratory Rate 21 H 24 H Respiratory Effort Respiratory Depth Respiratory Pattern Tachypnea Blood Pressure 74/52 L Blood Pressure Mean 59 Blood Pressure Source Monitor Blood Pressure Position Supine Blood Pressure Location Left Arm Pulse Ox 93 94 Oxygen Delivery Method Nasal Cannula Nasal Cannula Oxygen Flow Rate (L/min) 3 3 04/08/25 12:00 04/08/25 12:00 04/08/25 12:00 Temperature 100.0 F H 100.0 F H Temperature Source Core Core Pulse Rate 88 88 Respiratory Rate 20 H 19 H Respiratory Effort Normal Respiratory Depth Normal Respiratory Pattern Normal Blood Pressure 83/61 L 83/61 L Blood Pressure Mean 68 68 Blood Pressure Source Monitor Monitor Blood Pressure Position Semi-Fowlers Semi-Fowlers Blood Pressure Location Left Arm Left Arm Pulse Ox 95 95 Oxygen Delivery Method Venturi Mask Nasal Cannula Nasal Cannula Oxygen Flow Rate (L/min) 3 3 3 04/08/25 13:00 04/08/25 14:00 04/08/25 14:00 Temperature 100.2 F H 100.6 F H 100.6 F H Temperature Source Core Core Core Pulse Rate 87 91 91 Respiratory Rate 20 H 23 H 23 H Respiratory Effort Respiratory Depth Respiratory Pattern Blood Pressure 90/64 101/62 101/62 Blood Pressure Mean 72 75 75 Blood Pressure Source Monitor Monitor Monitor Blood Pressure Position Semi-Fowlers Semi-Fowlers Blood Pressure Location Left Arm Left Arm Pulse Ox 95 96 96 Oxygen Delivery Method Nasal Cannula Nasal Cannula Nasal Cannula Oxygen Flow Rate (L/min) 3 3 3 04/08/25 14:52 04/08/25 15:00 04/08/25 15:00 Temperature 100.9 F H Temperature Source Core Pulse Rate 98 92 91 Respiratory Rate 22 H 23 H Respiratory Effort Respiratory Depth Respiratory Pattern Tachypnea Blood Pressure 99/70 Blood Pressure Mean 79 Blood Pressure Source Monitor Blood Pressure Position Semi-Fowlers Blood Pressure Location Left Arm Pulse Ox 98 Oxygen Delivery Method Nasal Cannula Oxygen Flow Rate (L/min) 04/08/25 16:00 Temperature 101.3 F H Temperature Source Core Pulse Rate 88 Respiratory Rate 21 H Respiratory Effort Respiratory Depth Respiratory Pattern Blood Pressure 97/64 Blood Pressure Mean 75 Blood Pressure Source Monitor Blood Pressure Position Semi-Fowlers Blood Pressure Location Left Arm Pulse Ox 97 Oxygen Delivery Method Nasal Cannula Oxygen Flow Rate (L/min) 3 Weight Weight: 73.4 kg Body Mass Index (BMI) 27.8 Physical Exam Const alert, oriented x3, no apparent distress and healthy appearing General Appearance: cooperative, well kempt and well developed Orientation / Consciousness: awake, oriented to person, oriented to place and oriented to time HEENT normocephalic, head/scalp atraumatic, hearing grossly normal bilaterally and moist oral mucous membranes Eyes PERRL, EOMs intact bilaterally and conjunctivae normal Neck supple, no JVD, thyroid normal and no carotid bruits General: trachea midline Resp normal respiratory effort Resp Narrative: There is noted to be decreased breath sounds with inspiratory rales over the left mid and lower lung field, there is decreased air movement noted over the right lung Auscultation: rales left base and mid; Negative for rhonchi or wheezes Cardio regular rate, regular rhythm, S1 normal heart sound, S2 normal heart sound, no murmurs, no rub and no gallops GI normal to inspection, nondistended, normoactive bowel sounds, soft to palpation, non-tender and non-distended Extremity no clubbing, cyanosis or edema Skin no rashes or lesions noted General Skin Exam: no breakdown Neuro oriented x3, CN's II-XII intact bilaterally, moves all extremities, no focal motor deficits and no sensory deficits noted Sensorium / Orientation: awake and alert Speech: speech normal Psych affect normal Results Lab / Micro Data 04/08/25 06:51 04/08/25 06:51 Labs: Laboratory Results - last 24 hr 04/08/25 06:51: WBC 10.9, RBC 4.98, Hgb 12.7 L, Hct 40.7, MCV 81.7, MCH 25.5 L, MCHC 31.2 L, RDW Std Deviation 48.3 H, RDW Coeff of [place] 16.1 H, Plt Count 481 H, MPV 9.5, Immature Gran % (Auto) 0.600, Neut % (Auto) 91.4 H, Lymph % (Auto) 3.6 L, [place] % (Auto) 3.5, Eos % (Auto) 0.6, Baso % (Auto) 0.3, Absolute Neuts (auto) 10.0 H, Absolute Lymphs (auto) 0.39 L, Nucleated RBC % 0, Differential Comment COMMENT, PT 14.2, INR 1.1, APTT 27.1, Sodium 139, Potassium 4.0, Chloride 101, Carbon Dioxide 22.6, Anion Gap 16 H, BUN 13, Creatinine 1.09, Estim Creat Clear Calc 67.11, Est GFR (MDRD) Non-Af 76, BUN/Creatinine Ratio 11.6, Glucose 116 H, Lactic Acid 3.2 H*, Calcium 9.2, Total Bilirubin 0.32, AST 15, ALT 10, Alkaline Phosphatase 112, NT pro BNP II 299, Total Protein 6.3, Albumin 3.8, Globulin 2.5, Albumin/Globulin Ratio 1.5 04/08/25 08:19: Urine Color Yellow, Urine Clarity Clear, Urine pH 8.0, Ur Specific [place] 1.015, Urine Protein 30 H, Urine Glucose (UA) Normal, Urine Ketones Negative, Urine Occult Blood Negative, Urine Nitrite Negative, Urine Bilirubin Negative, Urine Urobilinogen Normal, Ur Leukocyte Esterase Negative, Urine RBC 0 SEEN, Urine WBC 0 SEEN, Ur Squamous Epith Cells 0 SEEN, Urine Bacteria 0 SEEN, Urine Mucus 0 SEEN 04/08/25 13:25: Lactic Acid 2.7 H* Micro: Microbiology 04/08/25 08:19 Urine Catheter - Catheter Legionella Antigen - Final 04/08/25 08:19 Urine Catheter - Catheter Streptococcus pneumoniae Antigen (M - Final 04/08/25 06:51 Mucosa - Nose SARS-CoV-2, Influenza & RSV (PCR) - Final Imaging Radiology Impression Chest X-Ray 04/08/25 06:54 IMPRESSION: Left lower lobe infiltrate. Reading Location: [id number] Assessment & Plan Assessment/Plan (1) Pneumonia: PLAN: Plan 1. Left lower lobe community-acquired pneumonia with sepsis-patient was admitted to ICU, he was placed on Zosyn and IV vancomycin, he will receive aerosol treatments, sputum culture was ordered, urine antigen for strep and Legionella was ordered, critical care will see the patient #2 hypoxia secondary to sepsis and left lower lobe community-acquired pneumonia- pulse ox will be monitored, patient is currently on nasal cannula oxygen #3 chronic obstructive pulmonary disease-patient will receive aerosol treatments and pulse ox will be monitored #4 hyperlipidemia-patient is on Lipitor #5 chronic depression-patient is on Wellbutrin #6 neuropathy-patient is on gabapentin #7 coronary artery disease with ischemic cardiomyopathy-complicates care, management, recovery, and prognosis Total clinical time spent by myself addressing the patient's medical issues, reviewing all of his data, and collaborating with patient's care team: 75 minutes Charges/Coding Visit Charges Inpatient E&M: 67182 Init Hosp L3
[2025-04-08] MEDS: Vancomycin HCl 750 MG in 0.9% Normal Saline (250mL Bag) 250 ML 250 MG IV (19:48)
[2025-04-08] MEDS: 0.9% Saline Lock 10 ML Syringe IV (20:03)
[2025-04-08] MEDS: Pantoprazole Sodium 40 MG in 0.9% Normal Saline (100mL MB+) 100 ML 300 MG IV (21:19)
--- NOTE | 2025-04-08 21:51 | NURSING ---
Patient refused HS heparin injection and was hesitant to agree on SCDs being placed. Informed patient of the important of anticoagulation, especially d/t his past history of pulmonary embolisms. Patient then agreeable for this RN to place SCDs on.
[2025-04-09] VITALS (23 sets, daily range): BP systolic 87–125; BP diastolic 62–82; PULSE 71–99; RESP 14–26; TEMP 36.6–37.1; O2SAT 20–98; BMI 29.0
[2025-04-09] MEDS: 0.9% Saline Lock 10 ML Syringe IV ×3 (00:15→19:27)
[2025-04-09] MEDS: 0.9% Normal Saline (1000mL) 1,000 ML 125 ML IV ×2 (03:26→11:08)
[2025-04-09 04:39] LABS: Hematocrit 31.8 % (40-54); Hemoglobin 9.9 g/dL (13.0-16.5); Immature Granulocytes Count 0.240 X10^3/uL (0.0-0.0); Mean Corp Hgb Conc 31.1 g/dL (32-36); Mean Corpuscular Volume 82.6 fL (80-94); Mean Platelet Vol. 9.2 fl (6.2-12.0); NRBC Flagged by Analyzer 0 % (0-5); POSITIVE DIFFERENTIAL YES; POSITIVE MORPHOLOGY YES; Platelet Count 329 K/mm3 (150-450); RBC Distribution Width CV 16.3 % (11.6-14.6); RBC Distribution Width SD 49.1 fl (35.1-43.9); Red Blood Count 3.85 M/mm3 (4.6-6.2); White Blood Count 19.3 K/mm3 (4.4-11.0)
[2025-04-09 04:41] LABS: Differential Indicated SCAN CRITERIA MET
[2025-04-09 04:56] LABS: Anion Gap 9 (5-15); BUN 13 mg/dL (4-19); BUN/Creat Ratio 16.9 RATIO (10-20); Calcium,Total 8.4 mg/dL (7.6-11.0); Carbon Dioxide 19.5 mmol/L (21.0-32.0); Chloride 110 mmol/L (98-108); Estimated Creatinine Clearance 93.76 ml/min (50-250); Glucose 177 mg/dL (70-99); Potassium 3.9 mmol/L (3.3-5.1)
[2025-04-09] MEDS: Piperacil/Tazobactam 3.375 GM in 0.9% Normal Saline (50mL MB+) 50 ML IV ×2 (06:38→13:06)
[2025-04-09] MEDS: Pantoprazole Sodium 40 MG in 0.9% Normal Saline (100mL MB+) 100 ML 300 MG IV ×2 (08:50→19:42)
[2025-04-09] MEDS: buPROPion (XL) 150 MG TABLET.XL PO ×2 (08:52→20:10)
--- NOTE | 2025-04-09 08:53 | PCM.PN.INT ---
Assessment & Plan Assessment/Plan (1) Sepsis: (2) Hypoxia: PLAN: Plan RECOMMENDATIONS: 1. Continue empiric antimicrobials, pending infectious workup. 2. Continue scheduled bronchodilators and steroids. 3. Appropriate DVT prophylaxis. 4. Encourage incentive spirometer use and mobilize patient as tolerated. 5. Wean supplemental oxygen to maintain saturations at or above 90%. 6. The patient is medically stable for transfer out of the intensive care unit. IMPRESSIONS: 1. Sepsis The patient presented with sepsis due to suspected pneumonia with acute sepsis related organ dysfunction as evidenced by lactic acidemia and persistent hypotension. The patient's hemodynamic status improved with IV fluid resuscitation. He never required the initiation of vasopressor support. The patient will be continued on empiric antimicrobials, pending further infectious workup. He is otherwise clinically stable. 2. History of COPD with pulmonary nodularity/hypoxemia The patient has a known history of COPD on a triple therapy inhaler regimen on an outpatient basis. He does not utilize supplemental oxygen at his baseline. Will plan to continue scheduled bronchodilators and IV steroids for now. Supplemental oxygen will be continued to maintain saturations at or above 90%. 3. History of coronary artery disease/ischemic cardiomyopathy/neuropathy/GERD Complicates care, management, recovery and prognosis. Continue home medications as indicated. PT/OT to evaluate the patient. This note was generated with [employer] dictation software. It may contain incorrect words, spelling, and punctuation that were not noted in checking the note before signing. Subjective Subjective The patient was seen and examined at the bedside this morning. Events from the last 24 hours have been reviewed. The patient is currently afebrile, hemodynamically stable and maintaining appropriate oxygen saturations on 2 L/min via nasal cannula. The patient never required the initiation of vasopressor support yesterday. He does report the perception that his breathing quality has improved significantly since yesterday. White blood cell count is elevated at 19,000. Hemoglobin and platelet count are stable. Creatinine is within normal limits. Objective Data Objective Data The patient's most recent lab work, culture data and imaging studies have all been personally reviewed. Sputum, blood and urine cultures are pending. Vital Signs: Vital Signs Temp Pulse Resp BP Pulse Ox O2 Del Method O2 Flow Rate 98.5 F 84 21 H 113/69 96 Nasal Cannula 2 04/09/25 07:00 04/09/25 07:17 04/09/25 07:17 04/09/25 07:00 04/09/25 07:17 04/09/25 07:17 04/09/25 07:17 FiO2 97 04/08/25 16:00 Oxygen Flow Rate (L/min) 2 Oxygen Delivery Method Nasal Cannula Weight: 169 lb 5.04 oz Body Mass Index (BMI) 29.0 Intake & Output: Intake and Output for Last 24 Hours 04/07/25 04/08/25 04/09/25 23:59 23:59 23:59 Intake Total 6195 / 6195 1050 / 1050 Output Total 1950 / 1950 600 / 600 Balance 4245 / 4245 450 / 450 Lab / Micro Data Attestation: I reviewed the patient's lab results. 04/09/25 04:32 04/09/25 04:32 Labs: Laboratory Results - last 24 hr 04/08/25 06:51: Differential Comment COMMENT 04/08/25 13:25: Lactic Acid 2.7 H* 04/09/25 04:32: WBC 19.3 H, RBC 3.85 L, Hgb 9.9 L, Hct 31.8 L, MCV 82.6, MCH 25.7 L, MCHC 31.1 L, RDW Std Deviation 49.1 H, RDW Coeff of [place] 16.3 H, Plt Count 329, MPV 9.2, Immature Gran % (Auto) 1.200 H, Neut % (Auto) 93.5 H, Lymph % (Auto) 1.5 L, [place] % (Auto) 3.6, Eos % (Auto) 0.0, Baso % (Auto) 0.2, Absolute Neuts (auto) 18.0 H, Absolute Lymphs (auto) 0.29 L, Nucleated RBC % 0, Sodium 139, Potassium 3.9, Chloride 110 H, Carbon Dioxide 19.5 L, Anion Gap 9, BUN 13, Creatinine 0.74, Estim Creat Clear Calc 93.76, Est GFR (MDRD) Non-Af 102, BUN/Creatinine Ratio 16.9, Glucose 177 H, Calcium 8.4 Micro: Microbiology 04/08/25 08:19 Urine Catheter - Catheter Legionella Antigen - Final 04/08/25 08:19 Urine Catheter - Catheter Streptococcus pneumoniae Antigen (M - Final 04/08/25 06:51 Mucosa - Nose SARS-CoV-2, Influenza & RSV (PCR) - Final Physical Exam Const alert, oriented x3 and no apparent distress General Appearance: cooperative HEENT normocephalic and head/scalp atraumatic Eyes PERRL, EOMs intact bilaterally and conjunctivae normal Neck supple General: trachea midline Chest inspection of chest normal Resp normal respiratory effort and no use of accessory muscles Effort and Inspection: able to speak in complete sentences Auscultation: diminished lung sounds; Negative for rales, rhonchi or wheezes Cardio regular rate and regular rhythm GI normal to inspection, nondistended, normoactive bowel sounds Extremity no clubbing, cyanosis or edema Skin no rashes or lesions noted Neuro CN's II-XII intact bilaterally, moves all extremities and no focal motor deficits Psych cooperative and affect normal Charges/Coding Visit Charges Inpatient E&M: 85609 Subs Hosp L2
[2025-04-09] MEDS: Vancomycin HCl 750 MG in 0.9% Normal Saline (250mL Bag) 250 ML 250 MG IV (09:00)
--- NOTE | 2025-04-09 10:10 | WOUNDNOTE ---
wound photo: left elbow
--- NOTE | 2025-04-09 13:51 | CASEMGMT ---
MARION DAMON Assessment: Face to Face with pt for initial transition planning/care coordination assessment. MARION DAMON introduced self and role at [facility], pt voices understanding and consents to assessment. Pt is A&O x4 and answers all questions appropriately at this time. Pt sitting up in chair in no distress. Care providers, pharmacy, and demographics verified/updated. Strata: Not able to access at this time. Admitting Dx: Sepsis, Pneumonia PCP: Jefe Specialists: [employer]; [facility] Preferred Pharmacy: [facility] Insurance: [facility] Dual complete/AMA Prescription Benefit: yes LNOK: Daughter, Clarice; Son, Jona Living Arrangements: Pt lives with girlfriend, brother and niece with 2 steps to enter the downstairs apt where he resides. ADLs: Pt reports I with ADLs and IADLs. Transportation: Pt girlfriend provides transportation. DME: pt has available but does not use walker, wheelchair HHC/SNF: Previously at [facility], previously used [facility] Pt states no concerns with going home at time of dc. Pt states no further concerns/needs. CM to follow. Advised pt to ask CM if any further question/concerns/needs arise, voices understanding. Pt Goal: Home Plan: Home with family support. Follow for O2 needs. MARION DAMON discussed possible need for O2 at DC, provided pt with list of local DME providers. pt chose [facility] as DME provider of choice. Karissa SCHULTZ CM
--- NOTE | 2025-04-09 13:58 | CASEMGMT ---
Pt states he is currently active with OP therapy at for [facility] and OT.
--- NOTE | 2025-04-09 18:07 | PN.HOSP_ITS ---
Reason for Visit Chief Complaint: Fever, chills, malaise Subjective Subjective Patient was seen and examined today, he is currently on minimal oxygen at 1 L. Patient appears to be stable for transfer to [place] [address] for further care, patient's white blood cell count was elevated at 19.3 today, I told his daughter to call his head and neck surgeon regarding his parotid surgery which is scheduled for Saturday of next week, I do not think anesthesia will feel the patient is stable for surgery, I recommended the surgery be put off at least a week. Objective Data Objective Data Vital Signs: Vital Signs Temp Pulse Resp BP Pulse Ox O2 Del Method O2 Flow Rate 98.3 F 99 23 H 102/73 93 Nasal Cannula 1 04/09/25 17:00 04/09/25 17:00 04/09/25 17:00 04/09/25 17:00 04/09/25 17:00 04/09/25 17:00 04/09/25 17:00 FiO2 93 04/09/25 12:00 Oxygen Flow Rate (L/min) 1 Oxygen Delivery Method Nasal Cannula Weight: 76.8 kg Body Mass Index (BMI) 29.0 Intake & Output: Intake and Output for Last 24 Hours 04/07/25 04/08/25 04/09/25 23:59 23:59 23:59 Intake Total 6195 / 6195 4830.42 / 4830.42 Output Total 1950 / 1950 2850 / 2850 Balance 4245 / 4245 1980.42 / 1980.42 Lab / Micro Data 04/09/25 04:32 04/09/25 04:32 Labs: Laboratory Results - last 24 hr 04/09/25 04:32: WBC 19.3 H, RBC 3.85 L, Hgb 9.9 L, Hct 31.8 L, MCV 82.6, MCH 25.7 L, MCHC 31.1 L, RDW Std Deviation 49.1 H, RDW Coeff of [place] 16.3 H, Plt Count 329, MPV 9.2, Immature Gran % (Auto) 1.200 H, Neut % (Auto) 93.5 H, Lymph % (Auto) 1.5 L, Pender % (Auto) 3.6, Eos % (Auto) 0.0, Baso % (Auto) 0.2, Absolute Neuts (auto) 18.0 H, Absolute Lymphs (auto) 0.29 L, Nucleated RBC % 0, Sodium 139, Potassium 3.9, Chloride 110 H, Carbon Dioxide 19.5 L, Anion Gap 9, BUN 13, Creatinine 0.74, Estim Creat Clear Calc 93.76, Est GFR (MDRD) Non-Af 102, BUN/Creatinine Ratio 16.9, Glucose 177 H, Calcium 8.4 Micro: Microbiology 04/08/25 08:19 Urine Catheter - Catheter Legionella Antigen - Final 04/08/25 08:19 Urine Catheter - Catheter Streptococcus pneumoniae Antigen (M - Final 04/08/25 06:51 Mucosa - Nose SARS-CoV-2, Influenza & RSV (PCR) - Final Physical Exam Narrative alert, oriented x3, no apparent distress and healthy appearing General Appearance: cooperative, well kempt and well developed Orientation / Consciousness: awake, oriented to person, oriented to place and oriented to time HEENT normocephalic, head/scalp atraumatic, hearing grossly normal bilaterally and moist oral mucous membranes Eyes PERRL, EOMs intact bilaterally and conjunctivae normal Neck supple, no JVD, thyroid normal and no carotid bruits General: trachea midline Resp normal respiratory effort Resp Narrative: There is noted to be decreased breath sounds with inspiratory rales over the left mid and lower lung field, there is decreased air movement noted over the right lung Auscultation: rales left base and mid; Negative for rhonchi or wheezes Cardio regular rate, regular rhythm, S1 normal heart sound, S2 normal heart sound, no murmurs, no rub and no gallops GI normal to inspection, nondistended, normoactive bowel sounds, soft to palpation, non-tender and non-distended Extremity no clubbing, cyanosis or edema Skin no rashes or lesions noted General Skin Exam: no breakdown Neuro oriented x3, CN's II-XII intact bilaterally, moves all extremities, no focal motor deficits and no sensory deficits noted Sensorium / Orientation: awake and alert Speech: speech normal Psych affect normal Assessment & Plan Assessment/Plan (1) Sepsis: (2) Pneumonia: PLAN: Plan 1. Left lower lobe community-acquired pneumonia with sepsis-currently on Zosyn and IV vancomycin, he will receive aerosol treatments, sputum culture was ordered, urine antigens for strep and Legionella were negative #2 hypoxia secondary to sepsis and left lower lobe community-acquired pneumonia- pulse ox will be monitored, patient is currently on nasal cannula oxygen #3 chronic obstructive pulmonary disease-patient will receive aerosol treatments and pulse ox will be monitored #4 hyperlipidemia-patient is on Lipitor #5 chronic depression-patient is on Wellbutrin and Seroquel #6 neuropathy-patient is on gabapentin #7 coronary artery disease with ischemic cardiomyopathy-complicates care, management, recovery, and prognosis Total clinical time spent by myself addressing the patient's medical issues, reviewing all of his data, and collaborating with patient's care team: 35 minutes Charges/Coding Visit Charges Inpatient E&M: 29800 Subs Hosp L2
[2025-04-09 19:46] LABS: Vancomycin, Trough Level 7.8 ug/mL (5.0-15.0)
--- NOTE | 2025-04-09 20:16 | PCM.RX.CS ---
Consult Antibiotic Management Pharmacy has been consulted to manage selected antibiotic: Vancomycin Type of Intervention Type of Consult: Follow-up Labs Labs: Sodium 139 mmol/L (133-145) 04/09/25 04:32 Potassium 3.9 mmol/L (3.3-5.1) 04/09/25 04:32 Chloride 110 mmol/L (98-108) H 04/09/25 04:32 Carbon Dioxide 19.5 mmol/L (21.0-32.0) L 04/09/25 04:32 Anion Gap 9 (5-15) 04/09/25 04:32 BUN 13 mg/dL (4-19) 04/09/25 04:32 Creatinine 0.74 mg/dL (0.70-1.20) 04/09/25 04:32 Est GFR (MDRD) Non-Af 102 (>60) 04/09/25 04:32 BUN/Creatinine Ratio 16.9 RATIO (10-20) 04/09/25 04:32 Glucose 177 mg/dL (70-99) H 04/09/25 04:32 Vancomycin Trough 7.8 ug/mL (5.0-15.0) 04/09/25 19:10 Microbiology Microbiology: Microbiology 04/08/25 11:25 Sputum, Expectorated/Coughed Gram Stain - Final 04/08/25 08:19 Urine Catheter - Catheter Legionella Antigen - Final 04/08/25 08:19 Urine Catheter - Catheter Streptococcus pneumoniae Antigen (M - Final 04/08/25 06:51 Mucosa - Nose SARS-CoV-2, Influenza & RSV (PCR) - Final Goal Trough Goal Trough: 15-20 mcg/mL Pharmacy Plan for Drug Dosing Pharmacy Plan for Drug Dosing: VANCOMYCIN LEVEL RECEIVED Current Vancomycin Dose: 750mg IV Q12h Number of Doses Received: 3 (loading + 2 scheduled doses) Vancomycin Level: 7.8 Hours Since Last Dose: ~10.25hr Renal Function: SCr 0.74/ CrCl 93 mL/min Renal Function Trend: improvement since starting vancomycin Lab/Micro: pending Vancomycin Plan/Comments: patient had a trough drawn which resulted in a value of 7.8 (goal 15-20). Will increase the patient's vancomycin to 1250mg IV Q12hr to start 04/09/25 @2100. Pending Level: 04/11/25 @0830, prior to 4th dose of new regimen Pharmacy Service will continue to monitor and adjust dosing as required.
[2025-04-09] MEDS: Vancomycin HCl 1,250 MG in 0.9% Normal Saline (250mL Bag) 250 ML 167 MG IV (20:31)
[2025-04-10] VITALS (16 sets, daily range): BP systolic 111–124; BP diastolic 66–86; PULSE 77–96; RESP 16–22; TEMP 36.3–36.7; O2SAT 85–98; BMI 28.5
[2025-04-10] MEDS: Piperacil/Tazobactam 3.375 GM in 0.9% Normal Saline (50mL MB+) 50 ML IV ×4 (00:08→22:40)
[2025-04-10] MEDS: 0.9% Saline Lock 10 ML Syringe IV ×4 (00:12→23:42)
[2025-04-10] MEDS: Albuterol 2.5 MG/3 ML VIAL.NEB. INHALATION (01:00)
[2025-04-10 04:23] LABS: Hematocrit 34.7 % (40-54); Hemoglobin 10.8 g/dL (13.0-16.5); Immature Granulocytes Count 0.230 X10^3/uL (0.0-0.0); Mean Corp Hgb Conc 31.1 g/dL (32-36); Mean Corpuscular Volume 84.6 fL (80-94); Mean Platelet Vol. 9.8 fl (6.2-12.0); NRBC Flagged by Analyzer 0 % (0-5); POSITIVE DIFFERENTIAL YES; Platelet Count 334 K/mm3 (150-450); RBC Distribution Width CV 16.3 % (11.6-14.6); RBC Distribution Width SD 51.3 fl (35.1-43.9); Red Blood Count 4.10 M/mm3 (4.6-6.2); White Blood Count 16.4 K/mm3 (4.4-11.0)
--- NOTE | 2025-04-10 04:25 | RAD_ITS ---
PROCEDURE: CHEST 1 VIEW (PORTABLE) 04/10/2025 REASON FOR EXAM: PNEUMONIA TECHNIQUE: Frontal view of the chest. COMPARISON: 04/08/2025 FINDINGS: Right-sided PICC line tip at cavoatrial junction. Normal heart size. Emphysema and smoking-related interstitial lung disease. Persistent left mid and lower lung zone airspace opacity, similar to the prior exam. No effusion or pneumothorax. Old rib fractures. Old left clavicle fracture. RAD/Chest 1 View (Portable) IMPRESSION: Persistent left lung base probable pneumonia. Reading Location: [facility]-
[2025-04-10] MEDS: buPROPion (XL) 150 MG TABLET.XL PO ×2 (09:09→22:44)
--- NOTE | 2025-04-10 09:21 | NURSING ---
Tierra Andrade pt's daughter, POA called for an update. Update given.
[2025-04-10] MEDS: Pantoprazole Sodium 40 MG in 0.9% Normal Saline (100mL MB+) 100 ML 300 MG IV (09:59)
[2025-04-10] MEDS: Vancomycin HCl 1,250 MG in 0.9% Normal Saline (250mL Bag) 250 ML 167 MG IV ×2 (11:36→20:39)
[2025-04-11] VITALS (9 sets, daily range): BP systolic 104–126; BP diastolic 77–85; PULSE 76–111; RESP 16–20; TEMP 36.4–36.7; O2SAT 86–97
[2025-04-11] MEDS: Albuterol 2.5 MG/3 ML VIAL.NEB. INHALATION (00:55)
--- NOTE | 2025-04-11 00:57 | CPS ---
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
[2025-04-11] MEDS: Piperacil/Tazobactam 3.375 GM in 0.9% Normal Saline (50mL MB+) 50 ML IV (05:31)
[2025-04-11 08:32] LABS: Hematocrit 34.0 % (40-54); Hemoglobin 10.5 g/dL (13.0-16.5); Immature Granulocytes Count 0.160 X10^3/uL (0.0-0.0); Mean Corp Hgb Conc 30.9 g/dL (32-36); Mean Corpuscular Volume 84.2 fL (80-94); Mean Platelet Vol. 9.5 fl (6.2-12.0); NRBC Flagged by Analyzer 0 % (0-5); POSITIVE DIFFERENTIAL YES; Platelet Count 362 K/mm3 (150-450); RBC Distribution Width CV 16.1 % (11.6-14.6); RBC Distribution Width SD 50.3 fl (35.1-43.9); Red Blood Count 4.04 M/mm3 (4.6-6.2); White Blood Count 9.9 K/mm3 (4.4-11.0)
[2025-04-11] MEDS: buPROPion (XL) 150 MG TABLET.XL PO (09:13)
[2025-04-11 09:16] LABS: Estimated Creatinine Clearance 90.27 ml/min (50-250); Vancomycin, Trough Level 11.2 ug/mL (5.0-15.0)
--- NOTE | 2025-04-11 09:36 | PCM.RX.CS ---
Consult Antibiotic Management Pharmacy has been consulted to manage selected antibiotic: Vancomycin Type of Intervention Type of Consult: Follow-up Prior Doses of Antibiotics Prior Doses of Antibiotics Received/Current Regimen: current dose is 1250mg IV q12h Labs Labs: Sodium 139 mmol/L (133-145) 04/09/25 04:32 Potassium 3.9 mmol/L (3.3-5.1) 04/09/25 04:32 Chloride 110 mmol/L (98-108) H 04/09/25 04:32 Carbon Dioxide 19.5 mmol/L (21.0-32.0) L 04/09/25 04:32 Anion Gap 9 (5-15) 04/09/25 04:32 BUN 13 mg/dL (4-19) 04/09/25 04:32 Creatinine 0.78 mg/dL (0.70-1.20) 04/11/25 08:21 Est GFR (MDRD) Non-Af 100 (>60) 04/11/25 08:21 BUN/Creatinine Ratio 16.9 RATIO (10-20) 04/09/25 04:32 Glucose 177 mg/dL (70-99) H 04/09/25 04:32 Vancomycin Trough 11.2 ug/mL (5.0-15.0) 04/11/25 08:21 Microbiology Microbiology: Microbiology 04/08/25 11:25 Sputum, Expectorated/Coughed Gram Stain - Final 04/08/25 11:25 Sputum, Expectorated/Coughed Respiratory Culture - Preliminary Appears to be normal respiratory chente. Further studies to follow. 04/08/25 08:19 Urine, Clean Catch Urine Culture - Final Culture exhibits no growth. 04/08/25 06:46 Blood Culture (Wb) - Anticubital Right Blood Culture - Preliminary No growth in 48 hours. 04/08/25 06:46 Blood Culture (Wb) - Anticubital Left Blood Culture - Preliminary No growth in 48 hours. 04/08/25 08:19 Urine Catheter - Catheter Legionella Antigen - Final 04/08/25 08:19 Urine Catheter - Catheter Streptococcus pneumoniae Antigen (M - Final 04/08/25 06:51 Mucosa - Nose SARS-CoV-2, Influenza & RSV (PCR) - Final Dosing Weight Weight used for dosin.8 kg Estimated Creatinine Clearance Estimated Creatinine Clearance: 90 ml/min Goal Trough Goal Trough: 15-20 mcg/mL Pharmacy Plan for Drug Dosing Pharmacy Plan for Drug Dosing: VANCOMYCIN LEVEL RECEIVED Current Vancomycin Dose: 1250MG Q12H Number of Doses Received: 3 Vancomycin Level: 11.2 Hours Since Last Dose: 12 Renal Function: SCr 0.78, CrCl 90 ML/MIN Renal Function Trend: SCr WAS 0.74 ON 04/09 AND 1.09 ON 04/08 Vancomycin Plan/Comments: TROUGH IS BELOW GOAL RANGE. INCREASE DOSE TO 1500MG Q12H. GET ANOTHER TROUGH BEFORE 4TH DOSE. Pending Level: 04/12 21:30 Pharmacy Service will continue to monitor and adjust dosing as required. Follow-Up Labs Follow-Up Labs: Trough: Vancomycin Date/Time Labs Ordered Labs to be done on [date and time ordered]: 04/12/25 21:30
[2025-04-11] MEDS: Vancomycin HCl 1,500 MG in 0.9% Normal Saline (500mL Bag) 500 ML 250 MG IV (10:45)
--- NOTE | 2025-04-11 12:30 | DCINST_ITS ---
Discharge Instructions DC O2, CPAP, BIPAP needs Home O2 Discharge instructions: No Dressing / Incision Discharge Activity: Return to Normal Activity Weight Bearing Status: Full weight bearing Follow Up Care Test Results: Test results from this visit will be discussed in further detail at your follow- up appointment, if applicable. Discharge Plan Admission Admit Date/Time: 04/08/25 08:09 Primary Reason for Your Visit: left lower lobe pneumonia Attending Provider: Thai Riley Primary Care Provider: Alexey Mayberry Consulting Providers: Herberth Wilkerson; Matthew Yee; Bruce Devries; Nic Weems; Chaka Miller; Fabiano Perez; Zeke Leslie; Flakita Nam; Saeid Murdock; Fred Puentes; Darren Esteban; Angelina Pang; Yaakov Dale; Megan Davis; Domenic Alvarez; Hieu Dumont; Liu Zarate; Fab Campoverde; Irena Hubbard; Marissa Frazier; Josr Bateman; Jean-Pierre Pham; Sergio Leger Discharge Orders/Prescriptions Prescriptions: New cefdinir 300 mg capsule 300 mg PO BID Qty: 8 0RF Rx Instructions: start on 04/12/25 prednisone 20 mg tablet 20 mg PO BID Qty: 10 0RF Continued guaifenesin [Mucinex] 1,200 mg tablet extended release 12hr 1,200 mg PO TID PRN (Reason: congestion) ketoconazole 2 % cream 1 applic topical BID quetiapine 25 mg tablet 25 mg PO QHS triamcinolone acetonide 0.1 % cream 1 applic topical .QD albuterol sulfate 2.5 mg /3 mL (0.083 %) solution for nebulization 2.5 mg inhalation Q4H PRN PRN (Reason: wheezing) ipratropium-albuterol 0.5 mg-3 mg(2.5 mg base)/3 mL solution for nebulization 3 ml inhalation Q6H PRN PRN (Reason: dyspnea) furosemide [Lasix] 40 mg tablet 40 mg PO DAILY gabapentin 400 mg capsule 800 mg PO TID Qty: 1 0RF bupropion HCl 150 mg Tablet Extended Release 24 Hr 150 mg PO BID cyanocobalamin (vitamin B-12) 1,000 mcg capsule 1,000 mcg PO DAILY atorvastatin 20 mg Tablet 20 mg PO QHS Trelegy Ellipta 200-62.5-25 mcg blister with device 1 inh inhalation Q24H Qty: 60 5RF fluticasone propionate 50 mcg/actuation spray,suspension 2 spray intranasal QDAY Qty: 16 11RF omeprazole 40 mg capsule,delayed release(DR/EC) 40 mg PO QDAY Qty: 90 1RF Rx Instructions: take once daily 30 minutes before first meal. Referrals / Follow Up: Alexey Mayberry MD [Primary Care Provider] - Within 1 Week Disposition Disposition (needs filled in before D/C Order can be placed): Home, Self Care
--- NOTE | 2025-04-11 15:44 | NURSING ---
Clarice Andrade patients daughter called for an update and had heard that he was going home. His girlfriend told me he was going home. Update given and daughter is aware that o2 is needed at 4L NC with ambulation and that [employer] at [facility] now setting up home o2.
--- NOTE | 2025-04-21 09:35 | DS.PCM_ITS ---
Providers Date of Admission: 04/08/25 Date of Discharge: 04/11/25 Primary Care Physician: Dr. Alexey Mayberry MD Consultations 04/08/25 09:41 Consult: Mortgage Manager / Pulmonary Medicine Routine Consulting Provider: Intensivists/Pulmonary Med Reason for Consult: sepsis EMERGENT Consult: No MD Notified: Yes Date Notified: 04/08/25 Time Notified: 08:31 Method of Notification: Verbal Reason For Visit: SEPSIS, PNEUMONIA Diagnosis Discharge Diagnosis (1) Sepsis: Status: Inactive Code(s): A41.9 - Sepsis, unspecified organism (2) Pneumonia: Status: Inactive Code(s): J18.9 - Pneumonia, unspecified organism Plan 1. Left lower lobe community-acquired pneumonia with sepsis-currently on Zosyn and IV vancomycin, he will receive aerosol treatments, sputum culture was ordered, urine antigens for strep and Legionella were negative #2 hypoxia secondary to sepsis and left lower lobe community-acquired pneumonia- pulse ox will be monitored, patient is currently on nasal cannula oxygen #3 chronic obstructive pulmonary disease-patient will receive aerosol treatments and pulse ox will be monitored #4 hyperlipidemia-patient is on Lipitor #5 chronic depression-patient is on Wellbutrin and Seroquel #6 neuropathy-patient is on gabapentin #7 coronary artery disease with ischemic cardiomyopathy-complicates care, management, recovery, and prognosis Total clinical time spent by myself addressing the patient's medical issues, reviewing all of his data, and collaborating with patient's care team: 35 minutes Medications at Discharge Home Medications gabapentin 400 mg capsule 800 mg (2 x 400 mg) PO TID #1 cap 08/10/24 bupropion HCl 150 mg 24 hr tablet, extended release 150 mg PO BID Depression 08/16/24 albuterol sulfate 2.5 mg/3 mL (0.083 %) solution for nebulization 2.5 mg inhalation Q4H PRN PRN wheezing 09/11/24 furosemide 40 mg tablet (Lasix) 40 mg PO DAILY Dieuretic 09/11/24 ipratropium 0.5 mg-albuterol 3 mg (2.5 mg base)/3 mL nebulization soln 3 ml inhalation Q6H PRN PRN dyspnea 09/11/24 ketoconazole 2 % topical cream 1 applic topical BID Excema 10/06/24 quetiapine 25 mg tablet 25 mg PO QHS Sleep / Depression 10/06/24 guaifenesin 1,200 mg tablet, extended release 12 hr (Mucinex) 1,200 mg PO TID PRN congestion 10/20/24 fluticasone fur. 200 mcg-umeclid 62.5 mcg-vilant 25 mcg inhalat.powder (Trelegy Ellipta) 1 inh inhalation Q24H #60 ea 11/09/24 triamcinolone acetonide 0.1 % topical cream 1 applic topical .QD Excema 01/27/25 fluticasone propionate 50 mcg/actuation nasal spray,suspension 2 spray intranasal QDAY #16 grams 02/01/25 atorvastatin 20 mg tablet 20 mg PO QHS HLD 02/05/25 cyanocobalamin (vitamin B-12) 1,000 mcg capsule 1,000 mcg PO DAILY Supplement 02/05/25 omeprazole 40 mg capsule,delayed release 40 mg PO QDAY #90 caps 04/06/25 cefdinir 300 mg capsule 300 mg PO BID #8 caps 04/11/25 prednisone 20 mg tablet 20 mg PO BID #10 tabs 04/11/25 Hospital Course Operations None Procedures None Summary of Care Provided Minutes Spent on Discharge: 31 Hospital Course: 64-year-old white male was seen in the emergency room at [facility] with complaints of fever and cough. Patient does not have home oxygen. Patient stated he woke in the middle of the night with nausea and vomiting, EMS reports that the patient was hypoxic and needed oxygen en route upon arrival to the emergency room, patient's pulse ox was in the the 70s. Workup in the emergency room included a CBC which showed a normal white blood cell count, hemoglobin was slightly low at 12.7, patient's chemistry panel was essentially normal, lactic acid was 3.2 and patient's chest x-ray showed left lower lobe infiltrate. Patient was admitted to the ICU with a diagnosis of left lower lobe community-acquired pneumonia with sepsis, he was seen in consultation by critical care and he received Zosyn and IV vancomycin. Patient improved during his hospital stay, he was weaned off oxygen and he did not require oxygen at the time of discharge from the hospital. On 04/11/2025, patient was seen and examined: On examination he appeared in good health and spirits. Vital signs as documented. Skin warm and dry and without overt rashes. Neck without JVD, neck was supple, trachea midline, thyroid was normal. Lungs clear bilaterally, normal air movement was noted. Heart exam notable for regular rhythm, normal sounds and absence of murmurs, rubs or gallops. Abdomen unremarkable and without evidence of organomegaly, masses, or abdominal aortic enlargement. Bowel sounds are present, abdomen is not distended. Extremities nonedematous, no cyanosis was noted, no clubbing was noted. Neuro: Cranial nerves II through XII are grossly intact, no focal motor deficits were noted, sensation to light touch and pinprick intact, motor exam 5/5 throughout. Psych: Patient is alert and oriented x3, he does not appear anxious or depressed, he does not appear agitated. Patient appears stable for discharge home on 04/11/2025 Weight / BMI Weight Weight: 75.8 kg Body Mass Index (BMI) 28.5 ABG / Lab / Microbiology Data 04/11/25 08:21 04/11/25 08:21 Microbiology: Microbiology 04/08/25 06:46 Blood Culture (Wb) - Anticubital Right Blood Culture - Final No growth in 5 days. 04/08/25 06:46 Blood Culture (Wb) - Anticubital Left Blood Culture - Final No growth in 5 days. 04/08/25 11:25 Sputum, Expectorated/Coughed Gram Stain - Final 04/08/25 11:25 Sputum, Expectorated/Coughed Respiratory Culture - Final Mixed normal respiratory chente. No Streptococcus pneumoniae, beta-hemolytic Streptococcus or Staphylococcus aureus isolated. 04/08/25 08:19 Urine, Clean Catch Urine Culture - Final Culture exhibits no growth. 04/08/25 08:19 Urine Catheter - Catheter Legionella Antigen - Final 04/08/25 08:19 Urine Catheter - Catheter Streptococcus pneumoniae Antigen (M - Final 04/08/25 06:51 Mucosa - Nose SARS-CoV-2, Influenza & RSV (PCR) - Final D/C Instructions Weight Bearing Status: Full weight bearing DC O2, CPAP, BIPAP Needs Home O2 Discharge instructions: No Meaningful Use Info Meaningful Use Meaningful Use Diagnoses (Choose all that apply): None applicable Discharge Plan Admission Admit Date/Time: 04/08/25 08:09 Primary Reason for Your Visit: left lower lobe pneumonia Attending Provider: Thai Riley Primary Care Provider: Alexey Mayberry Consulting Providers: Herberth Wilkerson; Matthew Yee; Bruce Devries; Nic Weems; Chaka Miller; Fabiano Perez; Zeke Leslie; Flakita Nam; Saeid Murdock; Fred Puentes; Darren Esteban; Angelina Pang; Yaakov Dale; Megan Davis; Domenic Alvarez; Hieu Dumont; Liu Zarate; Fab Campoverde; Irena Hubbard; Mairssa Frazier; Josr Bateman; Jean-Pierre Pham; Sergio Leger Instructions Additional Instructions / Restrictions: You should wear oxygen at 4 L/min when ambulating, you will not need oxygen at rest Discharge Orders/Prescriptions Prescriptions: New cefdinir 300 mg capsule 300 mg PO BID Qty: 8 0RF Rx Instructions: start on 04/12/25 prednisone 20 mg tablet 20 mg PO BID Qty: 10 0RF Continued guaifenesin [Mucinex] 1,200 mg tablet extended release 12hr 1,200 mg PO TID PRN (Reason: congestion) ketoconazole 2 % cream 1 applic topical BID quetiapine 25 mg tablet 25 mg PO QHS triamcinolone acetonide 0.1 % cream 1 applic topical .QD albuterol sulfate 2.5 mg /3 mL (0.083 %) solution for nebulization 2.5 mg inhalation Q4H PRN PRN (Reason: wheezing) ipratropium-albuterol 0.5 mg-3 mg(2.5 mg base)/3 mL solution for nebulization 3 ml inhalation Q6H PRN PRN (Reason: dyspnea) furosemide [Lasix] 40 mg tablet 40 mg PO DAILY gabapentin 400 mg capsule 800 mg PO TID Qty: 1 0RF bupropion HCl 150 mg Tablet Extended Release 24 Hr 150 mg PO BID cyanocobalamin (vitamin B-12) 1,000 mcg capsule 1,000 mcg PO DAILY atorvastatin 20 mg Tablet 20 mg PO QHS Trelegy Ellipta 200-62.5-25 mcg blister with device 1 inh inhalation Q24H Qty: 60 5RF fluticasone propionate 50 mcg/actuation spray,suspension 2 spray intranasal QDAY Qty: 16 11RF omeprazole 40 mg capsule,delayed release(/EC) 40 mg PO QDAY Qty: 90 1RF Rx Instructions: take once daily 30 minutes before first meal. Referrals / Follow Up: Alexey Mayberry MD [Primary Care Provider] - Within 1 Week Disposition Disposition (needs filled in before D/C Order can be placed): Home, Self Care Charges/Coding Visit Charges Inpatient E&M: 56458 Disch Hosp >30min
== END 2025-04-11 16:35 | disposition home or self-care (01) | DRG 871 ==
LOC: ED 08:34 → ICU 08:36 → MS3 04-09 20:53
PROVIDERS: Admitting Provider Internal Medicine; Emergency Provider Emergency Medicine; PCP Internal Medicine; Visit Provider Internal Medicine
DX: A41.9 Sepsis, unspecified organism (principal); J18.9 Pneumonia, unspecified organism; E87.20 Acidosis, unspecified; J44.0 Chronic obstructive pulmonary disease with (acute) lower respiratory infection; I10 Essential (primary) hypertension; F32.A Depression, unspecified; I25.5 Ischemic cardiomyopathy; E78.5 Hyperlipidemia, unspecified; I25.2 Old myocardial infarction; K21.9 Gastro-esophageal reflux disease without esophagitis; I25.10 Atherosclerotic heart disease of native coronary artery without angina pectoris; G62.9 Polyneuropathy, unspecified; I95.9 Hypotension, unspecified; R09.02 Hypoxemia; Z95.1 Presence of aortocoronary bypass graft; Z87.19 Personal history of other diseases of the digestive system; Z86.711 Personal history of pulmonary embolism; Z79.899 Other long term (current) drug therapy; Z79.51 Long term (current) use of inhaled steroids; Z87.891 Personal history of nicotine dependence; Z86.14 Personal history of Methicillin resistant Staphylococcus aureus infection
CPT/HCPCS: 36415; 36569; 71045; 80048; 80053; 80202; 81001; 82565; 83605; 83880; 85025; 85610; 85730; 87040; 87070; 87086; 87205; 87449; 87631; 93005; 94640; 94762; 97116; 97162; 97530; 97802; 99252; 99285; 99406; A4216; G0463; J0696; J2405

== ENCOUNTER → 2025-05-04 | Outpatient (CLI) | payer MEDICARE, MEDICAID, SELFPAY ==
--- NOTE | 2025-05-04 12:10 | MRI_ITS ---
PROCEDURE: BRAIN WITHOUT CONTRAST 05/04/2025 REASON FOR EXAM: SAH Jun, HYPOXIC BRAIN INJURY TECHNIQUE: Procedure Code: MRIBR Modality: MR Procedure: BRAIN WITHOUT CONTRAST Multiplanar and multisequence images were obtained. COMPARISON: none FINDINGS: No acute or hyperacute infarcts. No intracerebral or extra-axial acute hemorrhage. Bilateral occipital small areas of encephalomalacia. Bilateral cerebral periventricular and subcortical as well as basal ganglia foci and patches of high T2/FLAIR WI signal. Normal MRI signal of the cerebellar hemispheres and brain stem. Dilated ventricular system, cortical sulci and extra-axial CSF spaces. No shift of midline structures. Normal MRI appearance of the petrous temporal bones cerebellopontine angles with no definite masses. Normal MRI appearance of orbital structures, both globes, optic nerves, optic chiasm, optic tracts and optic radiations. Scanned paranasal sinuses show pansinusitis. MRI/Brain without Contrast IMPRESSION: No acute or hyperacute infarcts. No intracerebral or extra-axial acute hemorrhage. Bilateral occipital small areas of encephalomalacia. Bilateral cerebral microvascular ischemic changes. Brain involutional changes. [facility] [address]
== END | disposition home or self-care (01) ==
LOC: MRI 11:45
PROVIDERS: PCP Internal Medicine
DX: G93.1 Anoxic brain damage, not elsewhere classified (principal); I67.82 Cerebral ischemia; Z86.79 Personal history of other diseases of the circulatory system
CPT/HCPCS: 70551

== ENCOUNTER 2025-05-10 12:00 | Outpatient (RCR) | payer MEDICARE, MEDICAID, SELFPAY ==
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
--- NOTE | 2025-03-22 12:10 | HP.PTDCSUM_ITS ---
Discharge Summary D/C summary: It has been my pleasure to treat CHIO DENT Jr. referred by Dr. 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 Discharge Date: 03/22/25 Please see the following information for a summary of their discharge status. Subjective Subjective: PATIENT REPORTS PHYSICAL THERAPY HAS HELPED HIS BALANCE A LOT AND HIS LEG STRENGTH. HE STATES HE CAN DO IT ON HIS OWN AT HOME NOW SO HE WOULD LIKE TO STOP PHYSICAL THERAPY. HE REPORTS HE IS INDEP WITH STANDING AND GETTING UP FROM SITTNG AND HIS BALANCE NOW AND THAT IS ALL GOING GREAT. HE DENIES AND FALLS OR LOSS OF BALANCE. HE REPORTS HE ISN'T USING ANY AD'S. HE REPORTS HIS MAIN PROBLEM IS HIS R HAND. HE REPORTS HE HAS RECOVERED FROM BEING SICK AND NOW HE CAN WALK FOR BLOCKS. STATES HE WALKED FROM HIS HOUSE TO [place] AND BACK PLUS HE CAN WALK ALL AROUND [facility] NO PROBLEM. PATIENT REPORTS BEING ABLE TO WALK FOR ABOUT A 1/2 BEFORE NEEDING TO REST. PATIENT STATES HE THINKS HIS EYE SIGHT IS WHAT IS HOLDING HIM BACK FROM BEING ABLE TO RUN. HE STATES IT IS GETTING A LITTLE BETTER AND HE IS HOPING TO GET SOME GLASSES THAT WILL HELP HIM TOO. Objective Objective/Function: PATIENT WAS SEEN TODAY FOR RE-ASSESSMENT OF PROGRESS TOWARD THE SET PT GOALS AND THE NEED FOR FURTHER PHYSICAL THERAPY VS READINESS FOR DISCHARGE. HEP CHECK. THIS PATIENT HAS DONE GREAT WITH PT. ALL GOALS HAVE BEEN MET AND HE IS APPROPRIATE FOR AND AGREEABLE TO D/C. UPON EXAM TODAY: 30" STS = 12 TUG TIME WITHOUT AD = 9.45" STEPS: ASCENDS AND DESCENDS WITH ONE HR RECIP WITHOUT ONE HR WITHOUT LIMITATION. Goals Goal 1:: PATIENT WILL HAVE INCREASED SAGAR CORE AND LE STRENGTH BY 1/2 MUSCLE GRADE THROUGHOUT. Goal Progress: Goal Met Goal 2:: PATIENT WILL COMPLETE 8 STANDS IN 30 SECS WITHOUT UE ASSIST TO DEMONSTRATE IMPROVED FUNCTIONAL CORE AND LE STRENGTH. Goal Progress: Goal Met Goal 3:: PATIENT WILL COMPLETE TUG IN < 10 SECS WITHOUT AD TO DEMONSTRATE IMPROVED GAIT STABILITY. Goal Progress: Goal Met Goal 4:: PATIENT WILL BE ABLE TO WALK FOR AT LEAST 15 MINUTES WITHOUT LOB AND WITHOUT SIGNS OF FATIGUE OR WEAKNESS IN ORDER TO IMPROVE ABILITY TO PERFORM ADL'S AND IADL'S. Goal Progress: Goal Met Goal 5:: PATIENT WILL BE ABLE TO NEGOTIATE STEPS WITH 1 HR WITH RECIPROCAL PATTERN WITHOUT LIMITATIONS. Goal Progress: Goal Met Goal 6:: PATIENT WILL BE INDEP WITH A HEP FOR CONTINUED IMPROVEMENT ONCE FORMAL PHYSICAL THERAPY CONCLUDES. Goal Progress: Goal Met Plan Plan: D/C TO INDEP HEP. D/C Information d/c sentence: If there are questions or concerns regarding this patient's physical therapy, please feel free to call me at [phone]. Thank you for the referral of this patient. Sincerely, Dolores Florian, PT, Cert MDT Balance/Gait/Functional tests Balance/Special Test Scores Lower Extremity Functional Score: 56
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
--- NOTE | 2025-03-30 11:44 | HP.SP.EVAL ---
Visit History Visit Info Date of Eval: 03/26/25 Today is Visit #: 1 Loading Unit Operator Seating: FALGUNI Roque Attending Doctor: Referring Doctor: Reason for Referral: QUADRIPARESIS RX HERE Previous speech therapy: Yes Other Relevant Medical History/Diagnoses/Surgery: PANCHITO DENT is a 64 year old male who presents to [facility] Speech Therapy for a cognitive evaluation. 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 He [facility] 10[facility]24 per caregiver report (Pt initially told ST he was d/c on 06/18). He lives at home with his girlfriend. During the day Pt reports that he mostly watches TV and talks on his [employer] radio. He is not currently driving. He is currently managing his finances (rent, electric, cable, storage unit), he helps with making a grocery list and goes grocery shopping. His girlfriend manages his medications d/t difficulty with vision. He has a neurology appointment on 03/29/25. He reports he does not have difficulty recalling to take his medications. Spoke with his girlfriend Usha briefly at the end of the session when walking him to his car. She states her main goals for him are to target improving right side function. Usha reporting that he had been participating in home health speech and OT and was recently d/c from their services and recommended to participate in outpatient therapy. Pt did not report any of this. Usha stating they were working on his short term memory while at home. Smoking Status: Former smoker Diagnosis Diagnosis: Moderate Cognitive Dysfunction; Expressive Aphasia Pain Is pain an issue with your current prescribed condition?: No Personal Preferred language: Slovenian Patient Allergies Allergies Allergies: Allergies latex Allergy (Verified 03/29/25 10:22) Rash varenicline tartrate (From Chantix) Allergy (Verified 03/29/25 10:22) Hives aspirin Adverse Reaction (Verified 03/29/25 10:22) Upset Stomach CLQT CLQT CLQT Administered: Yes CLQT: Cognitive Linguistic Quick Test (CLQT) is a criterion - referenced assessment designed for adults between the ages of 18 and 89 with known or suspected neurological dysfuntions. The CLQT is to assess strength and weaknesses in five cognitive domains. Severity ratings are within normal limits, mild, moderate, severe deficits. The subtests are as follows: Date: 03/26/25 Language Language: Moderate Clock Drawing Severity Rating Clock Drawing Severity Rating: Moderate CLQT Comments Vision: -: Pt's vision impacting the administration of this assessment. Pt reporting that he could not differentiate between the different symbols during the symbol cancellation task, so that subtest was not administered. During the confrontation naming task, Pt seeing all of the photos as evidence by a quick verbal label of the item however there were two he erred on with a report of not being able to see them -- unclear if this is true or if he was having word finding difficulties. Pt unable to complete the symbol trails task d/t vision. Attempted the design memory task however vision deficits were also affecting his ability to participate in this task. Did not attempt the mazes or design generation task d/t vision being difficult for other tasks. Criterion Scores: -: Pt was able to complete five of the subtest tasks that did not require his vision: Cognitive Domain Scores • Personal Facts (memory and language ability): 8/ (WITHIN CRITERION CUT OFF) • Confrontation Naming (aphasia, perseveration, verbosity): 04/11 (BELOW CRITERION CUT OFF) • Clock Drawing (screening of all cognitive domains): 06/14 (BELOW CRITERION CUT OFF) • Story Retelling (memory and comprehension, arousal, attention, storage capacity, narrative skills): /10 (BELOW CRITERION CUT OFF) • Generative Naming (word retrieval skills, perseveration): 3/ (BELOW CRITERION CUT OFF) Based on the tasks that were able to be administered, the Language and Clock Drawing were the only domain areas that were able to be scored. Cognitive Domain Scores: Language = 22/37 (MODERATE SEVERITY) Clock Drawing = 06/14 (MODERATE SEVERITY) Reference: Neuro-QoL instrument Radiation Oncology Patient Plan Plan Plan: Will recommend Pt for weekly outpatient speech therapy to address mod-severe cognitive-linguistic impairment characterized by deficits in immediate and short-term memory and word retrieval. Pt would benefit from training in compensatory strategies for recall and word retrieval, as well as cognitive training to improve cognitive functioning. Without skilled ST services, the Pt is at risk for decreased independence completing daily living tasks. Recommendations Treatment Warranted: Yes Treatment Warranted: Receptive/ Expressive Language and Cognition Frequency Frequency: 1x/Week Duration: 4 Weeks Visits in this POC: 4 Patient/Family Goal Patient/Family Goal: To educate family in memory strategies/verbal working memory tasks and strategies to elicit expressive language to complete at home. Goals that are Established Determination:: Goals will be added/modified as deemed necessary and appropriate. Therapy will be discontinued when results of re-evaluation indicate therapy is no longer needed or lack of progress has been documented. Goal #1-5 Goal #1: Panchito will complete verbal working memory tasks with 70% acc given min cues across two measured sessions. Goal #2: Panchito will participate in education of word finding strategies to utilize in structured tasks across the duration of his plan of care. Goal #3: Panchito will complete problem solving and executive functioning tasks with 65% acc given min cues across two measured sessions. Education Patient has Indicated that the Following Identified Educational Needs: None The Patient has indicated that they have no educational or learning abilities that may effect their care.: Yes Patient Instruction Patient Education: Diagnosis and Treatment Plan Person Taught: Patient and Family Teaching Method: Discussion and Demonstration Response to teaching: Return Demonstration and Verbalize Understanding
== END 2025-05-10 19:00 | disposition home or self-care (01) ==
LOC: OT 12:00
PROVIDERS: PCP Internal Medicine; Referring Provider Internal Medicine; Visit Provider Internal Medicine
DX: G82.50 Quadriplegia, unspecified (principal); G93.1 Anoxic brain damage, not elsewhere classified; I46.9 Cardiac arrest, cause unspecified; F80.1 Expressive language disorder
CPT/HCPCS: 92507; 97110; 97162; 97167; 97530

== ENCOUNTER → 2025-05-21 | Outpatient (CLI) | payer MEDICARE, MEDICAID, SELFPAY ==
[2025-05-21 12:43] VITALS: PULSE 102; PULSE 103; PULSE 107; PULSE 108; PULSE 109; PULSE 94; PULSE 96; PULSE 99; O2SAT 90; O2SAT 93; O2SAT 94
--- NOTE | 2025-05-26 12:31 | WT_ITS ---
PSN 6 Minute Walk Test 6 Minute Walk Test 6 Minute Walk Test: 6 Minute Walk Test PSN:6-Minute Walk Test Start: 05/21/25 12:43 Freq: Status: Active Protocol: [id number].6MINW Document 05/21/25 12:43 [id number] (Rec: 05/21/25 12:45 [id number]) 6 Minute Walk Test Date Performed 05/21/25 Time Performed 12:30 Height 5 ft 4 in Weight: 160 lb Weight in Pounds 160.[address]: Debbi Schaffer [employer]PER[employer] Assistive device None used: Pre-test Oxygen Delivery Room Air Method Pulse Ox (%) 93 Pulse Rate (60-100 94 beats/min) Dyspnea Ken Scale ( 0 0-10) Exertion Ken Scale 6 (6-20) 1st minute Oxygen Delivery Room Air Method Pulse Ox (%) 90 Pulse Rate (60-100 99 beats/min) 2nd minute Oxygen Delivery Room Air Method Pulse Ox (%) 90 Pulse Rate (60-100 102 H beats/min) 3rd minute Oxygen Delivery Room Air Method Pulse Ox (%) 90 Pulse Rate (60-100 103 H beats/min) 4th minute Oxygen Delivery Room Air Method Pulse Ox (%) 90 Pulse Rate (60-100 107 H beats/min) 5th minute Oxygen Delivery Room Air Method Pulse Ox (%) 90 Pulse Rate (60-100 108 H beats/min) 6th minute Oxygen Delivery Room Air Method Pulse Ox (%) 90 Pulse Rate (60-100 109 H beats/min) Dyspnea Ken Scale ( 3 0-10) Exertion Ken Scale 12 (6-20) Post-test Oxygen Delivery Room Air Method Pulse Ox (%) 94 Pulse Rate (60-100 96 beats/min) Full Laps Walked 12 Partial Lap, Number 13 of Tiles Walked Total Distance 721 Walked (ft) Interpretation Interpretation: The patient ambulated 721 feet over the course of 6 minutes beginning on room air without assistive devices. Pretesting oxygen saturation was noted to be 93% on room air. With ambulation, the darnell oxygen saturation was 90%. There was no significant exertional oxygen desaturation. Recommendations Recommendations: There is no indication for the use of supplemental oxygen at this time.
== END | disposition home or self-care (01) ==
LOC: PSN 12:24
PROVIDERS: PCP Internal Medicine; Referring Provider Nurse Practitioner Acute Care; Visit Provider Nurse Practitioner Acute Care
DX: J43.2 Centrilobular emphysema (principal)
CPT/HCPCS: 94618

== ENCOUNTER → 2025-05-27 | Outpatient (CLI) | payer MEDICARE, MEDICAID, SELFPAY | END | disposition home or self-care (01) | PROVIDERS: PCP Internal Medicine; Referring Provider Nurse Practitioner Acute Care; Visit Provider Nurse Practitioner Acute Care | DX: J43.2 Centrilobular emphysema (principal) | CPT/HCPCS: 94060; 94726; 94729 ==

== ENCOUNTER → 2025-07-21 | Outpatient (CLI) | payer MEDICARE, MEDICAID, SELFPAY ==
--- NOTE | 2025-07-21 08:10 | CT_ITS ---
PROCEDURE: CHEST WITHOUT CONTRAST 07/21/2025 REASON FOR EXAM: NEW NODULE IN SMOKER Former smoker. Patient has smoked 1 pack per day for 48 years. COPD. TECHNIQUE: Chest CT without contrast. Coronal and Sagittal reconstruction series were provided. One or more dose reduction techniques were used (e.g., Automated exposure control, adjustment of the mA and/or kV according to patient size, use of iterative reconstruction technique RADIATION DOSE SUMMARY: CTDlvol: 11.34 MGy DLP: 416.69 mGycm COMPARISON: January 02, 2025. FINDINGS: Hardware: None Lymph nodes: Multiple small benign-appearing lymph nodes in the mediastinum as well as in the axillary regions. Heart and Vasculature: The heart is nonenlarged. Atherosclerotic calcifications of the thoracic aorta. Thoracic aorta and pulmonary arteries have normal contours; noncontrast technique limits evaluation. Coronary Artery Calcifications: Present Lungs and Airways: Advanced emphysematous changes are present. Stable scarring at the lung bases. No focal pulmonary nodule is seen. Pleura: No pleural effusion. Upper Abdomen: Moderate-sized hiatal hernia. Bones: Degenerative changes of the thoracic spine.. Healed bilateral rib fractures. CT/Chest without Contrast IMPRESSION: Coronary artery calcification (CAC) is is present Advanced COPD and emphysematous changes. Scarring at the lung bases. No suspicious nodule is seen. Reading Location: [id number]
== END | disposition home or self-care (01) ==
LOC: CT 08:07
PROVIDERS: PCP Internal Medicine; Referring Provider Nurse Practitioner Acute Care; Visit Provider Nurse Practitioner Acute Care
DX: R91.8 Other nonspecific abnormal finding of lung field (principal)
CPT/HCPCS: 71250